=== PATIENT | female | born 1945 | race Caucasian/White ===

== ENCOUNTER → 2017-11-10 14:00 | Outpatient (CLI) | payer MEDICARE, MEDICAID, SELFPAY ==
[2017-11-10 14:21] VITALS: BP 158/77; PULSE 76; RESP 16; TEMP 36.9; O2SAT 95
== END ==
PROVIDERS: Family Provider Nurse Practitioner; PCP Nurse Practitioner; Visit Provider Internal Medicine Hematology & Oncology
DX: D50.0 Iron deficiency anemia secondary to blood loss (chronic) (principal); K90.9 Intestinal malabsorption, unspecified
CPT/HCPCS: 96365; J1756; A4216

== ENCOUNTER → 2017-12-08 13:59 | Outpatient (CLI) | payer MEDICARE, MEDICAID, SELFPAY ==
[2017-12-08 16:11] LABS: Basophil# 0.02 X10^3/uL; Basophil% 0.2 % (0-1); Eosinophil# 0.16 X10^3/uL; Eosinophils% 1.9 % (0-5); Hematocrit 39.9 % (37-47); Hemoglobin 12.4 g/dl (12.0-15.0); Lymphocyte % 26.8 % (19-41); Mean Corp Hgb Conc 31.1 g/gl (32-36); Mean Corpuscular Hgb 27.7 pg (27.0-32.0); Mean Corpuscular Volume 89.3 fL (81-99); Mean Platelet Vol. 10.9 fl (6.2-12.0); Monocyte# 0.84 X10^3/uL; Monocyte% 10.2 % (0-10); Neutrophil # 4.98 X10^3/uL (2.7-7.7); Neutrophil % 60.7 % (47-70); Platelet Count 272 K/mm3 (150-450); RBC Distribution Width CV 20.2 % (11.6-14.6); RBC Distribution Width SD 64.5 fl (35.1-43.9); Red Blood Count 4.47 M/mm3 (4.2-5.4); White Blood Count 8.2 K/mm3 (4.4-11.0)
[2017-12-08 16:13] LABS: ALB/GLOB Ratio 0.8 RATIO (0.9-2.4); AST(SGOT) 19 U/L (15-37); Alanine Aminotransfer ALT/SGPT 42 U/L (13-56); Alkaline Phosphatase 79 U/L (45-117); Anion Gap 7 (5-15); BUN 23 mg/dL (7-18); BUN/Creat Ratio 28.9 RATIO (10-20); Calcium,Total 8.6 mg/dL (8.5-10.1); Chloride 105 mmol/L (98-107); EST Glomerular Filtration Rate 75 mL/min (>60); Est Glom Filt Rate - Afr Amer 91 mL/min (>60); Free T3 3.4 pg/mL (2.18-3.98); Globulin 3.9 g/dL (2.2-4.2); Glucose 128 mg/dL (74-106); Iron 44 ug/dL (50-170); Potassium 4.1 mmol/L (3.5-5.1); Protein, Total 6.9 g/dL (6.4-8.2); Sodium Level 142 mmol/L (136-145); T4 Free Direct 1.23 ng/dL (0.76-1.46); Thyroid Stim Hormone (TSH) < 0.01 uIU/mL (0.358-3.74)
[2017-12-08 16:17] LABS: Differential Indicated SCAN CRITERIA MET; POSITIVE COUNT NO; POSITIVE DIFFERENTIAL NO; POSITIVE MORPHOLOGY YES
[2017-12-08 16:31] LABS: Anisocytosis 1+; Differential Comment SCANNED
[2017-12-09 10:29] LABS: Vitamin B12 448 pg/mL (211-911); Vitamin D,25 Hydroxy 35.8 ng/mL (19.95-100.01)
== END ==
PROVIDERS: Nurse Practitioner; Family Provider Nurse Practitioner; PCP Nurse Practitioner; Visit Provider Nurse Practitioner
DX: D50.9 Iron deficiency anemia, unspecified (principal); E55.9 Vitamin D deficiency, unspecified; E05.90 Thyrotoxicosis, unspecified without thyrotoxic crisis or storm
CPT/HCPCS: 80053; 82306; 82607; 82746; 83540; 84439; 84443; 84481; 85025

== ENCOUNTER → 2017-12-22 10:27 | Outpatient (CLI) | payer MEDICARE, MEDICAID, SELFPAY ==
--- NOTE | 2017-12-22 10:30 | US_ITS ---
STUDY: THYROID ULTRASOUND REASON FOR EXAM: Female, 72 years old. Difficulty swallowing. Dysphagia. TECHNIQUE: Ultrasound evaluation of the thyroid was performed with real-time and static cotter-scale imaging. Exam was limited by patient's poor neck mobility. COMPARISON: None. FINDINGS: RIGHT LOBE: The right lobe of the thyroid gland measures 3.6 x 1.7 x 1.2 cm. There is a heterogeneous echotexture. In the mid right lobe of the thyroid gland, there is a minimally hypoechoic solid nodule measuring 1.5 x 0.8 x 1.0 cm. LEFT LOBE: The left lobe of the thyroid gland measures 3.8 x 1.5 x 1.6 cm. There is a heterogeneous echotexture. In the lower pole of the left lobe, there is a hypoechoic solid nodule measuring 1.5 x 1.1 x 1.1 cm. ISTHMUS: The isthmus measures 7 mm . The regional lymph nodes are normal. US/Thyroid IMPRESSION: 1.5 cm solid nodules in the thyroid gland bilaterally. Would consider fine-needle aspiration for further evaluation. Diffusely heterogeneous thyroid gland. Electronically Signed: Loco Hillman MD at 3:48 EST , Service support ,
== END ==
PROVIDERS: Family Provider Nurse Practitioner; PCP Nurse Practitioner; Visit Provider Nurse Practitioner
DX: E05.90 Thyrotoxicosis, unspecified without thyrotoxic crisis or storm (principal); R94.6 Abnormal results of thyroid function studies
CPT/HCPCS: 76536

== ENCOUNTER 2018-02-13 14:30 | Outpatient (RCR) | payer MEDICARE, MEDICAID, SELFPAY ==
--- NOTE | 2018-01-18 13:47 | HP.PTEVAL_ITS ---
Patient's Visit Information MARY KAY HERNÁNDEZ is a 72 year old F referred to Physical Therapy by Grace DUNBAR.BPOMPE with a diagnosis of R hip pain, greater trochanter bursitis, and presence of R hip total arthro. Date of Evaluation: 01/18/18 Physical Therapist: Matheus West - Visit Plan Frequency: 2x /Week Duration: 4 Weeks Plan: Start with R hip and R LE strengthening as tolerated. Pt. has marked weakness in R hip musculature. Progress to HEP. - Subjective Subjective: Pt. is here today for her initial evaluation with diagnosis of R hip pain, greater trochanter bursitis, and presence of R hip total arthroplasty. Pt. is 4 years post R hip surgery. Pt. reports having good relief initial post surgery, but has been progressively getting worse over the last 1- 2 years. Pt. reports that her R leg does give out on her at times causing her to fall. Pt. does have a history of lumbar spine surgery and sees physician to manage her pain there. Pt. went to her 4 year follow up and physician suggested to work on strengthening of her R leg and follow up with physician in 4-6 weeks. Pt. has motorized chair, FWW and cane at home. Pt. reports that her chair is barely functional at this point in time, does not take out in community due to decreased function. Pt. does live along in detention independent living. Pt. is hopeful to increase her strength in order to reduce stress to R hip and decrease pain. - Pain R hip Pain Intensity (Out of 10): 10 Pain Intensity Range: 7, 10 - Objective POSTURE: Pt. has general flexed posture. Pt. has decreased lumbar lordosis. Pt. taylor wide IMTIAZ in stance. Pt. uses cane in stance, but is able to stand without balance aide for shorter time frames. PALPATION: Pt. has increased tenderness along R greater trochanter, R gluteal region and R anterior thight. NEUROLOGICAL: Pt. lacks sensation to light touch at lateral L calf, but normal sensation throught. Pt. has 2+ bilateral achilles and patellar DTR bilaterally. Pt. is able to rise on heels and toes, but uses balance aid to complete. ROM: R hip- flexion 108deg increase NW (groin pain), abd 40deg increase NW (groin), ext 10deg increase NW (groin), ER 30deg increase NW groin, IR 15deg increase NW (groin). L hip- flexion 120deg NE, abd 45deg NE, ext 15deg NE, ER 45deg NE, IR 32deg NE. MMT: RLE- ankle 5/5 throughout; knee- ext 5-/5, flexion 5-/5 increase NW; hip- flexion 3+/5 increase NW (groin), abd 3+/5 increase NW (groin pain), ext 4/5 increase NW. LLE- ankle 5/5 throughout; knee- ext 5-/5, flexion 5-/5; hip- flexion 4/5, abd 4/5, ext 4/5. GAIT: Pt. ambulates with cane in R hand. Pt. does not use properly, but reports this is the only way I can do it. Pt. has decreased step length bilaterally, increased postural sway and hip drop contralterally bilaterally. Stairs: Pt. negotiates 3 steps with 2 HR with step to pattern, pt was apprehensive to trial. - Goals Goal 1:: Pt. to be I with HEP. Goal Time Frame: 4-6 Weeks Goal 2:: Pt. to have increased RLE strength by 1/2 grade of all effected musculature to increase ability to complete all functional mobility. Goal Time Frame: 4-6 Weeks Goal 3:: Pt. to ambulate 300+ feet with LRD with 0-4/10 pain allowing for increased mobility in home and community. Goal Time Frame: 4-6 Weeks Goal 4:: Pt. to sleep for 4-6 hours at a time allowing for increased quality of life, with 0-2/10 pain in R hip. Goal Time Frame: 4-6 Weeks - Rehabilitation Potential Physical Therapy Diagnosis: Pt. has signs and symptoms consistent with R hip pain and marked R hip weakness. Pt. has increased pain with all R hip movements and with walking. Pt. would benefit from PT to increase RLE strength and stability and to increase stability in SLS to allow for increased stability with gait. Rehabilitation Potential: Fair - Anticipated Interventions Patient/Client Instruction: Educate patient on: Condition, Plan of Care, Risk Factors, Benefits of Fitness Program For the Purpose of:: To improve health and function, To foster healthy habits, To improve decision making, To facilitate caregiver knowledge, To improve self management, To prevent re-injury, To improve ability to perform tasks related to life management, To improve tolerance to ADL's Therapeutic Exercise to Include: Strength training, Power training, Endurance training, Balance training, Coordination, Body mechanics, Flexibilty training, Gait and locomotor training For the Purpose of:: To decrease pain, To increase ROM, To improve nutrient delivery to tissue, To increase oxygenation perfusion, To improve muscle performance and motor function, To improve ability to perform ADL's, To increase tolerance to activity/condition/position, To improve performance and independence with ADL's, To improve gait and locomotor functions, To improve health of tissue, To decrease soft tissue restriction, To increase flexibility/ ROM, To improve endurance, To improve balance, To improve safety with gait Cryotherapy (ice pack, ice massage): Yes Thermo therapy (hot pack): Yes For the Purpose of:: To decrease pain, To increase ROM, To improve nutrient delivery to tissue, To increase oxygenation perfusion, To improve muscle performance and motor function Thank you for the opportunity to evaluate your patient. For Medicare and Medicare HMO plans, please review the plan of care and approve it. It will need to be FAXED BACK to us at [phone] for Medicare purposes. Please let me know if there are questions or concerns regarding this plan of care. Physician Signature: Date:
--- NOTE | 2018-03-19 19:19 | HP.PTDCNRP_ITS ---
HP - Discharge Summary (1) - Patient Information MARY KAY HERNÁNDEZ was seen in my office for initial evaluation on 01/18/18. The following Plan of Care was established for this patient: Initial Frequency: 2x /Week Initial Duration: 4 Weeks - Anticipated Interventions Patient/Client Instruction: Educate patient on: Condition, Plan of Care, Risk Factors, Benefits of Fitness Program For the Purpose of:: To improve health and function, To foster healthy habits, To improve decision making, To facilitate caregiver knowledge, To improve self management, To prevent re-injury, To improve ability to perform tasks related to life management, To improve tolerance to ADL's Therapeutic Exercise to Include: Strength training, Power training, Endurance training, Balance training, Coordination, Body mechanics, Flexibilty training, Gait and locomotor training For the Purpose of:: To decrease pain, To increase ROM, To improve nutrient delivery to tissue, To increase oxygenation perfusion, To improve muscle performance and motor function, To improve ability to perform ADL's, To increase tolerance to activity/condition/position, To improve performance and independence with ADL's, To improve gait and locomotor functions, To improve health of tissue, To decrease soft tissue restriction, To increase flexibility/ ROM, To improve endurance, To improve balance, To improve safety with gait Cryotherapy (ice pack, ice massage): Yes Thermo therapy (hot pack): Yes For the Purpose of:: To decrease pain, To increase ROM, To improve nutrient delivery to tissue, To increase oxygenation perfusion, To improve muscle performance and motor function This patient was last seen in our office 02/13/18. Pertinent comments regarding their Physical therapy will appear below: Pt. was seen for her initial evaluation with hip pain. Pt. had one follow up visit, but then had to cancel the rest of her appointments due to change in insurance. Pt. will be DC from PT at this point in time. At this point I will be discontinuing this patient from physical therapy. I would be happy to see this patient again in the future if found appropriate by the physician. Thank you! Matheus West
== END 2018-02-13 19:00 | disposition home or self-care (01) ==
LOC: PT 14:30
PROVIDERS: Family Provider Nurse Practitioner; PCP Nurse Practitioner; Visit Provider Physician Assistant
DX: Z96.641 Presence of right artificial hip joint (principal); M25.551 Pain in right hip; M70.61 Trochanteric bursitis, right hip
CPT/HCPCS: 97110; 97162

== ENCOUNTER → 2018-04-17 16:06 | Outpatient (CLI) | payer MEDICARE, MEDICAID, SELFPAY ==
[2018-04-17 17:51] LABS: Free T3 6.1 pg/mL (2.18-3.98); Thyroid Stim Hormone (TSH) < 0.01 uIU/mL (0.358-3.74)
[2018-04-17 17:51] LABS: Amphetamine Urine VISTA NEGATIVE (<1000 ng/mL); Barbiturate Urine VISTA NEGATIVE (< 200 ng/mL); Benzodiazepine Urine VISTA POSITIVE (< 200 ng/mL); Cocaine Urine VISTA NEGATIVE (< 300 ng/mL); Ecstacy Urine VISTA NEGATIVE (< 500 ng/mL); Methadone Urine VISTA NEGATIVE (< 300 ng/mL); PCP Urine VISTA NEGATIVE (< 25 ng/mL); THC Urine VISTA NEGATIVE (< 50 ng/mL); Vista UDS pH Range 6
== END ==
PROVIDERS: Nurse Practitioner; Family Provider Nurse Practitioner; PCP Nurse Practitioner; Visit Provider Anesthesiology Pain Medicine
DX: F11.20 Opioid dependence, uncomplicated (principal); E11.9 Type 2 diabetes mellitus without complications; E05.90 Thyrotoxicosis, unspecified without thyrotoxic crisis or storm
CPT/HCPCS: 36415; 80307; 84439; 84443; 84481

== ENCOUNTER → 2018-09-06 15:01 | Outpatient (CLI) | payer MEDICARE, MEDICAID, SELFPAY ==
[2018-09-06 13:22] VITALS: BMI 31.8
--- NOTE | 2018-09-06 13:31 | ASPS_PTH ---
PATIENT: MARY KAY HERNÁNDEZ LOC: [facility] U#:[id number] AGE/SX: 80/F ROOM: RE09/06/[address]: Dr. Darwin Thomas MD : 1945 BED: DIS: SPEC #: [id number] RECD: 09/06/18 14:49 STATUS: ALEXANDRE DON #: [id number] HESHAM: 09/06/18 13:[address]: Darwin Thomas DEPT: CYTOLOGY RECD BY: Julisa Clayton ENTERED: 09/08/18 07:57 SP TYPE: ASPIRATION OTHR DR: Yesenia Leon, IN HOME SALES REPRESENTATIVE-C Tissues: A - Thyroid gland, NOS B - Thyroid gland, NOS Procedures: Special Stain Group II Cytology Other HEADER OPERATION: Ultrasound-guided fine needle aspiration bilateral thyroid PRE-OP DIAGNOSIS: Hyperthyroidism, multinodular goiter TISSUE SUBMITTED: A - Fine needle aspiration left thyroid 12 slides, B - Fine needle aspiration right thyroid 12 slides DIAGNOSIS CYTOLOGY A. Left thyroid nodule, ultrasound-guided FNA (smears): Consistent with benign follicular nodule. Adequate for evaluation. B. Right thyroid nodule, ultrasound-guided FNA (smears): Consistent with benign follicular nodule. Adequate for evaluation. LEONID:hilda 09/08/18 COMMENT Correlation with clinical, radiologic findings and appropriate follow up are necessary. CYTOLOGY STUDY Slides are reviewed. CYTOLOGY GROSS A - Received are 12 smears labeled with the patient's name and designated per the requisition as left thyroid. Submitted for staining. B - Received are 12 smears labeled with the patient's name and designated per the requisition as right thyroid. Submitted for staining. 09/06/18 TC:5 CPT: 03685 x2
== END ==
PROVIDERS: Family Provider Nurse Practitioner; PCP Nurse Practitioner; Referring Provider Surgery; Visit Provider Surgery
DX: E05.20 Thyrotoxicosis with toxic multinodular goiter without thyrotoxic crisis or storm (principal)
CPT/HCPCS: 88161; 88313

== ENCOUNTER → 2018-09-11 08:17 | Outpatient (CLI) | payer MEDICARE, MEDICAID, SELFPAY ==
[2018-09-06 13:22] VITALS: BMI 31.8
--- NOTE | 2018-09-11 08:21 | BI_ITS ---
MAMMOGRAPHY - BILATERAL SCREENING REASON FOR EXAM: Female, 73 years old. Routine annual screening examination. PERTINENT HISTORY: Non-contributory. Remote right excisional breast biopsy. TECHNIQUE: Digital bilateral breast clint (3D mammographic acquisition) in the CC and MLO projections. 2-D mediolateral oblique (MLO) and craniocaudad (CC) views of both breasts were obtained. CAD: Full Field Digital Mammography with Computer Added Detection was performed. COMPARISON: Comparison is made with prior study dated April 05, 2017 and June 18, 2015. FINDINGS: Breast Composition: There are scattered areas of fibroglandular density. There are no dominant masses or suspicious calcifications. Stable benign-appearing bilateral axillary lymph nodes. Stable 7 mm x 5 mm well-defined nodule in the upper lateral portion of the left breast. This was demonstrated to be a small lymph node. No other significant abnormalities are identified. There has been no significant change since the prior study. BI/SCREENING MAMM (CAD), BILAT IMPRESSION: Stable bilateral screening mammogram. Yearly follow-up mammogram recommended. (A) ASSESSMENT CATEGORY: BIRADS Category 2: Benign. A letter regarding these results will be sent to the patient by the facility within 30 days. Approximately 10% of breast cancers are not detected by mammography. A normal mammogram should not delay biopsy of a clinically suspicious abnormality. [id number] Electronically Signed: Nimesh Rogers MD at 10:39 EST Tel [phone], Service support ,
== END ==
PROVIDERS: Family Provider Nurse Practitioner; PCP Nurse Practitioner; Visit Provider Nurse Practitioner
DX: Z12.31 Encounter for screening mammogram for malignant neoplasm of breast (principal)
CPT/HCPCS: 77063; 77067

== ENCOUNTER → 2018-11-14 09:39 | Outpatient (CLI) | payer MEDICARE, MEDICAID, SELFPAY ==
[2018-09-06 13:22] VITALS: BMI 31.8
--- NOTE | 2018-11-14 09:59 | MRI_ITS ---
STUDY: MRI LUMBAR SPINE WITHOUT CONTRAST REASON FOR EXAM: Female, 73 years old. Bilateral leg and right hip pain. TECHNIQUE: Standardized fat and water weighted pulse sequences were obtained in the sagittal and axial planes. COMPARISON: None FINDINGS: T12-L1: Normal endplates. Normal disc height, hydration and morphology. Small, central, noncompressive disc protrusion. Normal bilateral facet joints. Normal central canal and bilateral lateral recesses. Normal bilateral intervertebral neural foramina. Normal lumbar lordosis. There is no substantial scoliosis. Normal conus medullaris that terminates at the T12-L1 level. L1-2: Normal endplates. Disc dehydration. There is a small, right paracentral, noncompressive disc protrusion. Normal bilateral facet joints. Normal central canal and bilateral lateral recesses. Normal bilateral intervertebral neural foramina. L2-3: Normal endplates. Disc dehydration. Normal central canal and bilateral lateral recesses. Mild facet hypertrophy. Small, noncompressive, inferior foraminal disc protrusions bilaterally. L3-4: Normal endplates. Disc dehydration. Moderate facet hypertrophy. Normal central canal and bilateral lateral recesses. There is mild bilateral foraminal encroachment, greater on the right, due to spurring and mild facet hypertrophy. L4-5: Normal endplates. Disc dehydration. There is 4 mm anterolisthesis. No demonstrated fracture. There is moderate facet hypertrophy. Normal central canal and bilateral lateral recesses. Normal bilateral intervertebral neural foramina. L5-S1: The patient is status post fusion. There is 4 mm anterolisthesis. Normal central canal. Foramina are patent. Normal visualized sacral ala. Normal visualized paraspinous soft tissue structures. MRI/Spine Lumbar (Routine) IMPRESSION: 1. Small, noncompressive disc protrusions at T12-L1, L1-2, and L2-3. 2. Mild listhesis at L4-5 and L5-S1. 3. Postoperative changes at L5-S1. 4. Degenerative changes are detailed above. Electronically Signed: Bruna Hernandez MD at 23:58 EST Tel , Service support ,
== END ==
PROVIDERS: Family Provider Nurse Practitioner; PCP Nurse Practitioner; Referring Provider Orthopaedic Surgery; Visit Provider Orthopaedic Surgery
DX: M16.11 Unilateral primary osteoarthritis, right hip (principal)
CPT/HCPCS: 72148

== ENCOUNTER → 2018-11-27 09:52 | Outpatient (CLI) | payer MEDICARE, MEDICAID, SELFPAY ==
[2018-11-14 10:20] VITALS: BMI 31.8
[2018-11-27 11:14] LABS: Amphetamine Urine VISTA NEGATIVE (<1000 ng/mL); Barbiturate Urine VISTA NEGATIVE (< 200 ng/mL); Benzodiazepine Urine VISTA POSITIVE (< 200 ng/mL); Cocaine Urine VISTA NEGATIVE (< 300 ng/mL); Ecstacy Urine VISTA NEGATIVE (< 500 ng/mL); Methadone Urine VISTA NEGATIVE (< 300 ng/mL); PCP Urine VISTA NEGATIVE (< 25 ng/mL); THC Urine VISTA NEGATIVE (< 50 ng/mL); Vista UDS pH Range 6
[2018-11-27 12:12] LABS: AST(SGOT) 11 U/L (15-37); Alanine Aminotransfer ALT/SGPT 30 U/L (13-56); Free T3 2.7 pg/mL (2.18-3.98); T4 Free Direct 1.45 ng/dL (0.76-1.46); Thyroid Stim Hormone (TSH) < 0.01 uIU/mL (0.358-3.74)
== END ==
PROVIDERS: Nurse Practitioner; Family Provider Nurse Practitioner; PCP Nurse Practitioner; Referring Provider Anesthesiology Pain Medicine; Visit Provider Anesthesiology Pain Medicine
DX: F11.20 Opioid dependence, uncomplicated (principal); E05.90 Thyrotoxicosis, unspecified without thyrotoxic crisis or storm; E11.9 Type 2 diabetes mellitus without complications
CPT/HCPCS: 36415; 80307; 84439; 84443; 84450; 84460; 84481

== ENCOUNTER → 2019-01-26 13:56 | Outpatient (CLI) | payer MEDICARE, MEDICAID, SELFPAY ==
[2018-11-14 10:20] VITALS: BMI 31.8
[2019-01-26 14:23] LABS: Potassium 4.7 mmol/L (3.5-5.1)
== END ==
PROVIDERS: Family Provider Nurse Practitioner; PCP Nurse Practitioner; Referring Provider Nurse Practitioner; Visit Provider Nurse Practitioner
DX: E87.5 Hyperkalemia (principal)
CPT/HCPCS: 36415; 84132

== ENCOUNTER 2019-04-03 06:09 | Emergency (ER) | payer MEDICARE, MEDICAID, SELFPAY ==
[2019-03-22 09:26] VITALS: BMI 34.9
[2019-04-03 06:11] VITALS: BP 155/72; PULSE 89; RESP 16; TEMP 37.2; O2SAT 94; BMI 33.0
--- NOTE | 2019-04-03 06:23 | RAD_ITS ---
STUDY: X-RAY - LEFT RADIUS AND ULNA REASON FOR EXAM: Pain, injury. TECHNIQUE: 2 view(s) of the forearm. COMPARISON: None. FINDINGS: There is no demonstrated soft tissue swelling. There is vascular calcification. There is triscaphe arthrosis. Normal visualized radius. Normal visualized ulna. RAD/Forearm 2 Views IMPRESSION: Triscaphe arthrosis. No demonstrated fracture. Electronically Signed: Desmond Pacheco MD at 7:25 EDT Tel , Service support ,
[2019-04-03] MEDS: oxyCODONE 5 MG Tablet PO (07:06)
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
[2019-04-03] MEDS: predniSONE 20 MG Tablet 60 MG PO (07:51)
[2019-04-03 07:52] VITALS: BP 162/69; PULSE 74; RESP 16; O2SAT 98
== END 2019-04-03 07:56 | disposition home or self-care (01) ==
PROVIDERS: Emergency Provider Emergency Medicine; Family Provider Nurse Practitioner; PCP Nurse Practitioner
DX: M10.9 Gout, unspecified (principal); M19.90 Unspecified osteoarthritis, unspecified site; I11.0 Hypertensive heart disease with heart failure; I50.9 Heart failure, unspecified; J44.9 Chronic obstructive pulmonary disease, unspecified; K21.9 Gastro-esophageal reflux disease without esophagitis; E11.9 Type 2 diabetes mellitus without complications; E78.00 Pure hypercholesterolemia, unspecified; I73.9 Peripheral vascular disease, unspecified; I27.20 Pulmonary hypertension, unspecified; I35.0 Nonrheumatic aortic (valve) stenosis; F41.9 Anxiety disorder, unspecified; Z86.718 Personal history of other venous thrombosis and embolism; Z87.19 Personal history of other diseases of the digestive system; Z95.2 Presence of prosthetic heart valve; Z79.01 Long term (current) use of anticoagulants; Z79.4 Long term (current) use of insulin; Z79.899 Other long term (current) drug therapy; Z87.891 Personal history of nicotine dependence
CPT/HCPCS: 73090; 99283

== ENCOUNTER 2019-04-18 06:08 | Inpatient (IN) | payer MEDICARE, MEDICAID, SELFPAY ==
[2019-04-18] VITALS (22 sets, daily range): BP systolic 96–160; BP diastolic 52–79; PULSE 69–96; RESP 16–24; TEMP 36.2–38.1; O2SAT 90–100; BMI 33.3; BMI 33.0; BMI 33.4
--- NOTE | 2019-04-18 06:19 | EKG12_ITS ---
Test Reason : CP Blood Pressure : / mmHG Vent. Rate : 094 BPM Atrial Rate : 094 BPM P-R Int : 126 ms QRS Dur : 124 ms QT Int : 392 ms P-R-T Axes : 033 067 016 degrees QTc Int : 490 ms Sinus rhythm with marked sinus arrhythmia Right bundle branch block Abnormal ECG Confirmed by GYPSY MARTINEZ, SUNDAY ([id number]), book or script editor TIERRA BLANCO ([id number]) on 04/23/2019 1:24:10 PM Referred By: BREANNE Confirmed By:SUNDAY BETANCUR MD
--- NOTE | 2019-04-18 06:19 | RAD_ITS ---
STUDY: X-RAY CHEST REASON FOR EXAM: Female, 74 years old. Chest congestion. TECHNIQUE: PA and lateral views of the chest. COMPARISON: June 07, 2017. FINDINGS: Cardiac monitoring leads are present. The lungs are hyperexpanded. Curvilinear opacity is visible within the mid right lung, new since previous study and possibly representing subsegmental atelectasis. There is mild prominence of bronchovascular markings. There is a small right-sided pleural effusion. There is mild cardiac enlargement. Normal mediastinum and duarte. There is prominence of the pulmonary hilar arteries without peripheral pulmonary vascular congestion, shore. There is atherosclerotic calcification of the aortic arch with tortuosity. There is demineralization of the osseous structures. Normal visualized ribs, clavicles, and shoulders. There is no demonstrated abnormality of the visualized soft tissue structures of the upper abdomen. RAD/Chest PA and Lateral IMPRESSION: 1. Right-sided subsegmental atelectasis. 2. Right-sided pleural effusion. Electronically Signed: Apple Rutherford MD at 7:41 EDT , Service support ,
--- NOTE | 2019-04-18 06:20 | ED.DCSUM_ITS ---
History of Present Illness Chief Complaint: Chest Pain Informant: Patient Narrative: COPD and aortic valve replacement. She is on Xarelto. She denies history of coronary artery disease. She stated since yesterday she has had a cough with some sputum. When she coughs she has some achiness in her chest and back. She is unsure if she has pneumonia. Positive history of COPD. No longer smokes cigarettes. She is on oxygen daily. She has not had a change since yesterday. She has been using breathing treatments x3 throughout the night last night with mild relief of symptoms. She stated she felt warm this morning and wanted to come in for further evaluations. Denies sick contacts. No other home treatment. - Past Medical History (1) Claudication Status: Acute (2) Chronic diastolic heart failure Status: Chronic (3) Essential (primary) hypertension Status: Chronic (4) H/O aortic valve replacement Status: Chronic Comment: TAVR: 23 mm Guillaume-Sapiens S3 valve 12/03/2016 (5) Hyperlipidemia Status: Chronic (6) Non-rheumatic aortic stenosis Status: Chronic (7) Secondary pulmonary arterial hypertension Status: Chronic Past Medical History - Allergies and Home Meds Allergies/Adverse Reactions: Allergies ciprofloxacin [From Cipro] Allergy (Verified 04/18/19 06:15) Rash ciprofloxacin HCl [From Cipro] Allergy (Verified 04/18/19 06:15) Rash gabapentin [From Neurontin] Allergy (Verified 04/18/19 06:15) Rash Primary Care Physician: Yesenia Leon NP-C [Primary Care Provider] - Prior records reviewed: Yes Surgical History: appendectomy - Right hip replacement, back surgery, laminectomy, carpal tunnel surgery, right leg hematoma extraction, hysterectomy, rotator cuff repair, total hip arthroplasty, - - carpal tunnel, RLE DVT Smoking Status: Former smoker Alcohol: None Drugs: None - Family History Maternal Family History: Family History (Last Reviewed 03/22/19 @ 09:55 by Moose Killian MD) Mother Arthritis Diabetes Hormone deficiency CVA (cerebral vascular accident) Colon cancer Cancer Sister Bleeding disorder CVA (cerebral vascular accident) Colon cancer Daughter Cancer Seizures Father Diabetes Leukemia Grandmother Diabetes Unknown Asthma Heart disease Hypertension High cholesterol Thyroid disorder Osteoporosis Cancer Tuberculosis Family History: Reports: No pertinent history Review of Systems General: Reports: Fever, Subjective. Denies: Chills, Sweats Eyes: Denies: Visual changes - bilaterally, Diplopia ENT: Denies: Rhinorrhea, Sore throat Cardiovascular: Reports: Chest pain. Denies: Palpitations Respiratory: Reports: Dyspnea, Cough, Sputum, Dyspnea on exertion Gastrointestinal: Denies: Abdominal pain, Nausea, Vomiting, Diarrhea, Melena, Hematochezia Genitourinary: Denies: Dysuria, Hematuria, Frequency Musculoskeletal: Denies: Back pain, Extremity Pain Skin: Denies: Rash, Wounds Neurological: Reports: Weakness. Denies: Headache, Numbness Physical Exam Vital Signs/Narrative: Vital Signs Temp Pulse Resp BP Pulse Ox 04/18/19 06:09 100.5 F H 96 16 160/71 H 98 General: Well nourished, Well developed, No Acute Distress Head: Normocephalic, Atraumatic Eyes: Perrl, EOMI ENT: Moist mucous membranes, No rhinorrhea Neck: Supple, Nontender Cardiovascular: Regular rate, Regular rhythm, No murmurs Respiratory: No distress, Chest nontender, Wheezing - Expiratory throughout all lung brush mild. Negative for: CTA bilaterally Abdomen: Soft, Nontender, Nondistended, Normal bowel sounds Back: Nontender, Normal Inspection Extremities: Nontender, No edema Skin: Normal color, No rash Neurological: Alert, Oriented x3, Cranial nerves II-XII grossly intact, Normal Strength, Normal Sensation Psychological: Normal affect, Normal Mood Diagnostic/Tx/Re-eval - Medical Decision Making EKG shows sinus rhythm at 94 with sinus arrhythmia. This is not unchanged from prior. However the patient does appear to have a new right bundle branch block. Patient had a low-grade temperature of 100.5. Tylenol given. Lab work and [facility] x-ray obtained. Chest x-ray shows no acute pneumonias. Lab work shows an acute on chronic anemia. The patient stated she has a history of chronic anemia and gets iron transfusions. She has not had one however in the last 6 months. She will be transfused 2 units of blood for hemoglobin 7.4 after talking to the hospitalist. Patient has chronic kidney disease with no significant change in her troponin. Patient felt better after her breathing treatment. Given Solu- Medrol and ceftriaxone azithromycin for suspected COPD exacerbation. Patient will be admitted. ED Disposition - Plan for ED Patient: Disposition: Home or Assisted Living Diagnosis: COPD exacerbation, Acute on chronic anemia Referrals: Yesenia Leon CUPOLA MECHANIC-C [Primary Care Provider] -
[2019-04-18] MEDS: Acetaminophen 325 MG Tablet 650 MG PO (06:28)
[2019-04-18] MEDS: Ipratropium/Albuterol Sulfate 3 ML AMPUL.NEB INHALATION ×5 (06:31→23:00)
[2019-04-18 06:47] LABS: Absolute Lymphocyte Count 1.42 X10^3/ul (0.83-4.51); Absolute Neutrophil Count 10.6 X10^3/uL (2.0-7.7); Basophil# 0.02 X10^3/uL; Basophil% 0.1 % (0-1); Eosinophils% 0.7 % (0-5); Hematocrit 25.7 % (37-47); Hemoglobin 7.4 g/dl (12.0-15.0); Lymphocyte # 1.42 X10^3/ul (4.0); Lymphocyte % 10.6 % (19-41); Mean Corp Hgb Conc 28.8 g/gl (32-36); Mean Corpuscular Hgb 19.8 pg (27.0-32.0); Mean Corpuscular Volume 68.7 fL (81-99); Monocyte# 1.27 X10^3/uL; Monocyte% 9.5 % (0-10); Neutrophil # 10.59 X10^3/uL (2.7-7.7); Neutrophil % 78.9 % (47-70); Platelet Count 262 K/mm3 (150-450); RBC Distribution Width CV 19.7 % (11.6-14.6); RBC Distribution Width SD 48.3 fl (35.1-43.9); Red Blood Count 3.74 M/mm3 (4.2-5.4); White Blood Count 13.4 K/mm3 (4.4-11.0)
[2019-04-18 06:49] LABS: Differential Indicated SCAN CRITERIA MET; POSITIVE COUNT NO; POSITIVE DIFFERENTIAL NO; POSITIVE MORPHOLOGY YES
[2019-04-18 06:58] LABS: Anion Gap 7 (5-15); BUN 24 mg/dL (7-18); BUN/Creat Ratio 18.2 RATIO (10-20); Calcium,Total 8.8 mg/dL (8.5-10.1); Chloride 107 mmol/L (98-107); Creatinine, Serum 1.32 mg/dL (0.55-1.02); EST Glomerular Filtration Rate 42 mL/min (>60); Est Glom Filt Rate - Afr Amer 51 mL/min (>60); Estimated Creatinine Clearance 27.26 ml/min; Glucose 157 mg/dL (74-106); Potassium 4.3 mmol/L (3.5-5.1); Sodium Level 141 mmol/L (136-145)
[2019-04-18 07:07] LABS: Anisocytosis 1+; Differential Comment SCAN; Hypochromasia 1+; Microcytosis 1+; Platelet Estimate ADEQUATE (ADEQ); Platelet Morphology LARGE; Polychromasia 1+
[2019-04-18] MEDS: Ceftriaxone 1 GM/50 ML BAG IV (07:54)
[2019-04-18] MEDS: MethylPREDNISolone 125 MG/2 ML Vial IV (07:54)
--- NOTE | 2019-04-18 08:23 | EKG12_ITS ---
Test Reason : RHYTHM CHANGE Blood Pressure : / mmHG Vent. Rate : 076 BPM Atrial Rate : 076 BPM P-R Int : 136 ms QRS Dur : 140 ms QT Int : 450 ms P-R-T Axes : 057 064 028 degrees QTc Int : 506 ms Normal sinus rhythm Right bundle branch block Abnormal ECG Confirmed by GYPSY MARTINEZ, SUNDAY ([id number]), restaurant expeditor TIERRA BLANCO ([id number]) on 04/23/2019 1:44:34 PM Referred By: CECIL Confirmed By:SUNDAY BETANCUR MD
--- NOTE | 2019-04-18 08:34 | HP.PCM_ITS ---
Problem List (1) COPD exacerbation Status: Acute (2) Acute on chronic anemia Status: Acute (3) Claudication Status: Chronic (4) Chronic diastolic heart failure Status: Chronic (5) Non-rheumatic aortic stenosis Status: Chronic (6) Hyperlipidemia Status: Chronic (7) Essential (primary) hypertension Status: Chronic (8) Secondary pulmonary arterial hypertension Status: Chronic (9) H/O aortic valve replacement Status: Chronic Comment: TAVR: 23 mm Guillaume-Sapiens S3 valve 12/03/2016 History of Present Illness Date of Admission: 04/18/19 Chief Complaint: Progressive worsening of shortness of breath since yesterday The patient is a 74 year old F with multiple comorbidities as listed above in cluding chronic microcytic anemia, MTHFR inhibitor/mutation, coronary artery disease status post aortic valve replacement and COPD came to ED with progressive worsening of shortness of breath since yesterday. Patient has mild shortness of breath on exertion but it got worse. Patient also has productive cough with clear sputum. Patient has chronic URI symptoms including nasal congestion and postnasal drip. Patient also complained of fever 101 yesterday. Patient also complained of chest tightness mainly in interscapular area and in the front mainly during cough which does not change with position. Seems pleuritic patient feels like that. Patient has seen Dr. raya about 2 weeks ago. Patient H&H was found 7.4/25.7, platelet count 262 with mild leukocytosis. Patient follows Dr. Gutierrez and gets PRBC last time about 2 years ago and iron infusion last time about a year ago. Patient is also on Xarelto for paroxysmal A. 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 Patient denies obvious external bleeding or major bruise including hematemesis/hematochezia/melena or hematuria/hemoptysis. Chest x-ray reviewed and shows chronic COPD changes right-sided subsegmental atelectasis with small effusion. EKG normal sinus rhythm with sinus arrhythmia, RBBB, QRS interval 124 ms. [] Past Medical History Past Medical History (Chronic Problems): Chronic Problems (Last Reviewed 03/22/19 @ 09:55 by Moose Raya MD) Claudication (Chronic) Chronic diastolic heart failure (Chronic) Non-rheumatic aortic stenosis (Chronic) Hyperlipidemia (Chronic) Essential (primary) hypertension (Chronic) Secondary pulmonary arterial hypertension (Chronic) H/O aortic valve replacement (Chronic 12/03/16) TAVR: 23 mm Guillaume-Sapiens S3 valve 12/03/2016 Medical History: Medical History (Last Reviewed 03/22/19 @ 09:55 by Moose Raya MD) Chronic diastolic heart failure (Chronic) I50.32 Non-rheumatic aortic stenosis (Chronic) I35.0 Hyperlipidemia (Chronic) E78.5 Essential (primary) hypertension (Chronic) I10 Secondary pulmonary arterial hypertension (Chronic) I27.21 Type 2 diabetes mellitus E11.9 Anemia D64.9 Anxiety F41.9 Arthritis M19.90 Asthma J45.909 Back problem M53.9 Breast lump N63.0 COPD (chronic obstructive pulmonary disease) J44.9 Carotid artery stenosis I65.29 Carpal tunnel syndrome G56.00 Cataracts, bilateral H26.9 Depression F32.9 Fibromyalgia M79.7 Fibromyalgia M79.7 GERD (gastroesophageal reflux disease) K21.9 H/O transfusion of whole blood Z92.89 H/O: hysterectomy Z98.890, Z90.710 Headache R51 Hormone deficiency E34.8 Hypothyroidism E03.9 IBS (irritable bowel syndrome) K58.9 Kidney disease N28.9 MTHFR mutation E72.12 Neuropathy G62.9 Obesity E66.9 Osteoarthritis M19.90 Osteoporosis M81.0 Pneumonia J18.9 RLS (restless legs syndrome) G25.81 Skin cancer C44.90 Thyroid disease E07.9 Tuberculosis A15.9 UTI (urinary tract infection) N39.0 blood clots Bone fracture T14.8XXA Seasonal allergies J30.2 Allergies ciprofloxacin [From Cipro] Allergy (Verified 04/18/19 06:15) Rash ciprofloxacin HCl [From Cipro] Allergy (Verified 04/18/19 06:15) Rash gabapentin [From Neurontin] Allergy (Verified 04/18/19 06:15) Rash Home Medications: Ambulatory Orders Medication Instructions Recorded Albuterol IH (ProAir) [Proair Hfa] 2 puff INHALATION Q4H PRN PRN 01/03/14 Fluticasone 0.05% [Flonase Nasal 2 spray NASAL DAILY 01/03/14 Sandy] Ropinirole HCl [Requip Xl] 2 mg PO QHS 01/03/14 Linagliptin [Tradjenta] 5 mg PO DAILY 02/02/16 Fesoterodine Fumarate [Toviaz] 8 mg PO QHS 10/01/16 Nitroglycerin (INPATIENT USE) 0.4 mg SUBLINGUAL Q5M PRN 10/01/16 [Nitrostat] Roflumilast [Daliresp] 500 mcg PO DAILY 10/01/16 Tiotropium [place] [Spiriva 18 MCG] 1 puff INHALATION PRN PRN 10/01/16 Oxygen, Home [Home Oxygen] 3 lpm NASAL CONT PRN #0 10/04/16 B Complex with Vitamin C 1 ea PO DAILY 03/04/17 [B-Complex Plus Vitamin C] Insulin Detemir [Levemir FlexPen] 50 units SC QHS 03/04/17 Tizanidine HCl 4 mg PO BID 03/04/17 Insulin Aspart [Novolog Flexpen] 0 units SC TIDAC 03/26/17 Iron Polysaccharide Complex 150 mg PO DAILY 05/10/17 [Ferrex 150] Paroxetine [Paxil] 40 mg PO DAILY 05/10/17 cholecalciferol (vitamin D3) 2,000 2,000 unit PO ONCE 09/29/17 unit capsule esomeprazole magnesium 40 mg 40 mg PO QDAY cap 09/29/17 capsule,delayed release fluticasone 100 mcg-salmeterol 50 2 puff INHALATION BID ea 09/29/17 mcg/dose blistr powdr for inhalation potassium chloride ER 10 mEq 10 meq PO BID 02/23/18 tablet,extended release furosemide 40 mg tablet 40 mg PO BID #60 tab 05/16/18 methimazole 5 mg tablet 5 mg PO DAILY #30 tab 08/03/18 oxycodone-acetaminophen 5 mg-325 1 tab PO TID tab 08/03/18 mg tablet metoprolol tartrate 25 mg tablet 25 mg PO BID #60 tab 08/28/18 denosumab 60 mg/mL subcutaneous 60 mg SC [id number] 11/14/18 syringe rivaroxaban 15 mg tablet 15 mg PO DAILY #30 tab 02/09/19 alprazolam 0.5 mg tablet 0.5 mg PO DAILY tab 03/22/19 atorvastatin 20 mg tablet 20 mg PO QHS tab 03/22/19 suvorexant 10 mg tablet 20 mg PO QHS tab 03/22/19 diltiazem ER 240 mg capsule,24 240 mg PO DAILY #60 cap 04/03/19 hr,extended release Surgical History: Surgical History (Last Reviewed 03/22/19 @ 09:55 by Moose Raya MD) H/O aortic valve replacement (Chronic) Onset Date: 12/03/16 Z95.2 TAVR: 23 mm Guillaume-Sapiens S3 valve 12/03/2016 H/O laminectomy Z98.890 History of left heart catheterization Onset Date: 09/03/16 Z98.890 History of tympanoplasty Z98.890 Hx of melanoma excision Z98.890, Z85.820 1997 Hx of removal of cyst Z98.890 Ganglion cyst right wrist Hx of rotator cuff surgery Z98.890 JAIME S/P hip replacement Z96.649 S/p bilateral carpal tunnel release Z98.890 Surgical History: appendectomy - Right hip replacement, back surgery, laminectomy, carpal tunnel surgery, right leg hematoma extraction, hysterectomy, rotator cuff repair, total hip arthroplasty, - - carpal tunnel, RLE DVT Psychiatric History: Anxiety, Depression 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 Smoking Status: Former smoker Alcohol: None Drugs: None - *Family History Maternal Family History: Family History (Last Reviewed 03/22/19 @ 09:55 by Moose Raya MD) Mother Arthritis Diabetes Hormone deficiency CVA (cerebral vascular accident) Colon cancer Cancer Sister Bleeding disorder CVA (cerebral vascular accident) Colon cancer Daughter Cancer Seizures Father Diabetes Leukemia Grandmother Diabetes Unknown Asthma Heart disease Hypertension High cholesterol Thyroid disorder Osteoporosis Cancer Tuberculosis History Items: No pertinent history Review of Systems Constitutional: Reports: Chills, Fever HEENT: Denies: Head Aches, Sinus Congestion, Sinus Drainage Cardiovascular: Reports: Chest Tightness. Denies: Chest Pain, Palpitations Respiratory: Reports: Cough, Pleuritic Pain, Shortness of Breath, Shortness of breath at rest, Shortness of breath upon exertion. Denies: Sputum production Gastrointestinal: Denies: Abdominal Pain, Nausea, Vomiting Genitourinary: Denies: Dysuria, Frequency, Hesitancy Musculoskeletal: Reports: Joint Pain. Denies: Joint Tenderness Skin: Denies: Rash, Wounds Neurological: Denies: Numbness, Tingling, Focal weakness Psychiatric: Reports: Anxiety, Depression. Denies: Homicidal Ideations, Suicidal Ideations Hematologic/ Lymphatic: Denies: Easy Bruising, Easy Bleeding VTE Information - Inpt Only VTE Present on Admission: No VTE Mechan Device Prophylaxis: None VTE Pharm Prophylaxis ordered?: No Reason prophylaxis not ordered:: Medical Contraindication - Severe anemia hemoglobin 7.4. Patient Problems: Active and Suspected Problems (Last Reviewed 03/22/19 @ 09:55 by Moose Raya MD) COPD exacerbation (Acute) Acute on chronic anemia (Acute) - Physical Exam General: Alert, Oriented x3, Cooperative HEENT: Atraumatic, PERRLA, EOMI, Normocephalic Oral: Dry Mucosa Neck: Supple, No JVD, Negative Carotid Bruits Lungs: Diminished - Air entry is diminished in bilateral lung bases., Rhonchi, Short of Breath Cardiovascular: Normal S1, Normal S2, Irregular Rate, Murmur - Artificial aortic valve click present. Systolic murmur present over aortic region. Abdomen: Bowel Sounds Present, Soft, Non Tender, Non-Distended Extremities: Capillary Refill Less than 3 Seconds, Edema - Slight edema. Skin: No rashes, No breakdown Musculoskeletal: No Tenderness to Palpation of Joints or Extremities, Arthritic Changes Neurological: Cranial nerves II-XII grossly intact Psych/Mental Status: Normal Affect, Appropriate Vital Signs Temp Pulse Resp BP Pulse Ox 98.5 F 95 24 H 112/78 100 04/18/19 07:52 04/18/19 07:07 04/18/19 07:07 04/18/19 07:07 04/18/19 07:07 Oxygen Flow Rate (L/min) 3 Oxygen Delivery Method Nasal Cannula Weight: 169 lb 8.568 oz Body Mass Index (BMI) 33.0 Finger Stick Blood Glucose 112 Laboratory Tests Past 24 Hrs 04/18/19 04/18/19 04/18/19 06:30 06:30 06:30 WBC 13.4 H RBC 3.74 L Hgb 7.4 L Hct 25.7 L MCV 68.7 L MCH 19.8 L MCHC 28.8 L RDW 19.7 H RDW Differential 48.3 H Plt Count 262 Immature Gran % (Auto) 0.200 Neut % (Auto) 78.9 H Lymph % (Auto) 10.6 L Benton % (Auto) 9.5 Eos % (Auto) 0.7 Baso % (Auto) 0.1 Absolute Neuts (auto) 10.6 H Absolute Lymphs (auto) 1.42 Total Counted Not Reportable Differential Comment SCAN Platelet Estimate ADEQUATE Plt Morphology Comment LARGE Polychromasia 1+ Hypochromasia 1+ Anisocytosis 1+ Microcytosis 1+ Sodium 141 Potassium 4.3 Chloride 107 Carbon Dioxide 27.0 Anion Gap 7 BUN 24 H Creatinine 1.32 H Estim Creat Clear Calc 27.26 Est GFR (MDRD) Af Amer 51 L Est GFR (MDRD) Non-Af 42 L BUN/Creatinine Ratio 18.2 Glucose 157 H Calcium 8.8 Troponin I < 0.015 B-Natriuretic Peptide 374.0 H Blood Type Antibody Screen Crossmatch 04/18/19 08:16 WBC RBC Hgb Hct MCV MCH MCHC RDW RDW Differential Plt Count Immature Gran % (Auto) Neut % (Auto) Lymph % (Auto) Benton % (Auto) Eos % (Auto) Baso % (Auto) Absolute Neuts (auto) Absolute Lymphs (auto) Total Counted Differential Comment Platelet Estimate Plt Morphology Comment Polychromasia Hypochromasia Anisocytosis Microcytosis Sodium Potassium Chloride Carbon Dioxide Anion Gap BUN Creatinine Estim Creat Clear Calc Est GFR (MDRD) Af Amer Est GFR (MDRD) Non-Af BUN/Creatinine Ratio Glucose Calcium Troponin I B-Natriuretic Peptide Blood Type Pending Antibody Screen Pending Crossmatch See Detail Assessment/Plan All Active Problems (Last Reviewed 03/22/19 @ 09:55 by Moose Raya MD) COPD exacerbation (Acute) Acute on chronic anemia (Acute) Chronic hypoxemic respiratory failure (Resolved) Colitis (Resolved) GI (gastrointestinal bleed) (Resolved) History of DVT (deep vein thrombosis) (Resolved) Hypomagnesemia (Resolved) Hypothyroidism (Resolved) Iron deficiency anemia (Resolved) Severe aortic stenosis (Resolved) The patient is a 74 year old F with multiple comorbidities as listed above including chronic microcytic anemia, MTHFR inhibitor/mutation, coronary artery disease status post aortic valve replacement and COPD came to ED with progressive worsening of shortness of breath since yesterday. Patient has mild shortness of breath on exertion but it got worse. Patient also has productive cough with clear sputum. Patient has chronic URI symptoms including nasal congestion and postnasal drip. Patient also complained of fever 101 yesterday. Patient also complained of chest tightness mainly in interscapular area and in the front mainly during cough which does not change with position. Seems pleuritic patient feels like that. Patient has seen Dr. raya about 2 weeks ago. Patient H&H was found 7.4/25.7, platelet count 262 with mild leukocytosis. Patient follows Dr. Gutierrez and gets PRBC last time about 2 years ago and iron infusion last time about a year ago. Patient is also on Xarelto for paroxysmal A. 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 Patient denies obvious external bleeding or major bruise including hematemesis/hematochezia/melena or hematuria/hemoptysis. Chest x-ray reviewed and shows chronic COPD changes right-sided subsegmental atelectasis with small effusion. EKG normal sinus rhythm with sinus arrhythmia, RBBB, QRS interval 124 ms. 1. COPD exacerbation with chronic hypoxic and hypercarbic respiratory failure: Patient is being admitted in PCU. Last blood gas was 7.34/46/56 but no mention about FiO2. Patient is on 3 L of home oxygen with CPAP at night and as needed during daytime. ABG and BiPAP as needed for shortness of breath gets worse. Currently patient shortness of breath has improved while she was in the ER. On bronchodilator DuoNeb, albuterol as needed, Solu-Medrol, incentive spirometry and chest physiotherapy. Sputum culture ordered. Respiratory panel ordered. 2. Acute on chronic microcytic anemia possible aggravated by Xarelto with chronic MTHFR inhibitor/mutation: 2 units of PRBC transfusion ordered by ER physician. Stool for occult blood. We will transfuse only 1 unit today and postponed for tomorrow. Hold Xarelto. Patient was advised to change to Eliquis as Eliquis probably has lower GI bleed complication as compared to Xarelto as found in research studies. 3. Pleuritic chest pain: Serial troponin enzymes. Patient has history of coronary artery disease and bioprosthetic AVR and paroxysmal A. fib. Will monitor. 4. Cardiac conditions: Chronic heart failure with preserved EF, coronary artery disease, bioprosthetic AVR proximal A. fib with secondary pulmonary hypertension: Patient last echo was in April 2017 reported as EF 60% with mild concentric LVH, normal LV systolic function, no regional wall motion majority. Normal RV size and systolic function. LA moderately enlarged, normal RA. Mild to moderate MR RVSP 57 mmHg with mild TR. Stable bioprosthetic aortic valve apparatus with mild to moderate bioprosthetic AV stenosis. No pericardial effusion. BNP 374. Patient does not seem to be in acute heart failure. 5. Comorbidities include essential hypertension, dyslipidemia, Chronic insomn ia. 146/69: Patient blood pressure is stable, respiratory rate 20. Home medications reconciliation done. DVT prophylaxis: On bilateral SCDs. Pharmacological prophylaxis is contraindicated. Laboratory Results 04/18/19 06:30: WBC 13.4 H, RBC 3.74 L, Hgb 7.4 L, Hct 25.7 L, MCV 68.7 L, MCH 19.8 L, MCHC 28.8 L, RDW 19.7 H, RDW Differential 48.3 H, Plt Count 262, Immatur e Gran % (Auto) 0.200, Neut % (Auto) 78.9 H, Lymph % (Auto) 10.6 L, Benton % (Auto) 9.5, Eos % (Auto) 0.7, Baso % (Auto) 0.1, Absolute Neuts (auto) 10.6 H, Absolute Lymphs (auto) 1.42, Total Counted Not Reportable, Differential Comment SCAN, Platelet Estimate ADEQUATE, Plt Morphology Comment LARGE, Polychromasia 1+, Hypochromasia 1+, Anisocytosis 1+, Microcytosis 1+ 04/18/19 06:30: Sodium 141, Potassium 4.3, Chloride 107, Carbon Dioxide 27.0, Anion Gap 7, BUN 24 H, Creatinine 1.32 H, Estim Creat Clear Calc 27.26, Est GFR (MDRD) Af Amer 51 L, Est GFR (MDRD) Non-Af 42 L, BUN/Creatinine Ratio 18.2, Glucose 157 H, Calcium 8.8, Troponin I < 0.015 04/18/19 06:30: B-Natriuretic Peptide 374.0 H 04/18/19 06:30: Total Bilirubin 0.30, Direct Bilirubin 0.09, AST 14 L, ALT 12 L, Alkaline Phosphatase 58, Total Protein 6.6, Albumin 2.9 L, Globulin 3.7 04/18/19 08:16: Blood Type Pending, Antibody Screen Pending, Crossmatch See Detail [] Clinical Impression(s) from Imaging Studies Chest X-Ray 04/18/19 06:19 IMPRESSION: 1. Right-sided subsegmental atelectasis. 2. Right-sided pleural effusion. Code Visit Inpatient E&M: 98845 Init Hosp L3
[2019-04-18 08:51] LABS: AST(SGOT) 14 U/L (15-37); Alanine Aminotransfer ALT/SGPT 12 U/L (13-56); Albumin, Serum 2.9 g/dL (3.2-5.0); Alkaline Phosphatase 58 U/L (45-117); Bilirubin, Direct 0.09 mg/dL (0.00-0.30); Globulin 3.7 g/dL (2.2-4.2); Protein, Total 6.6 g/dL (6.4-8.2)
[2019-04-18 09:35] LABS: Bedside Glucose 187 mg/dL (70-110)
[2019-04-18] MEDS: dilTIAZem CD 240 MG Capsule PO (10:55)
[2019-04-18] MEDS: tiZANidine HCl 2 MG Tablet 4 MG PO ×2 (10:55→21:45)
[2019-04-18] MEDS: guaiFENesin 1,200 MG Tablet 1200 MG PO ×2 (10:55→21:44)
[2019-04-18] MEDS: Metoprolol Tartrate 25 MG Tablet PO ×2 (10:55→21:43)
[2019-04-18] MEDS: ALPRAZolam 0.5 MG Tablet PO (10:55)
[2019-04-18] MEDS: LINAGLIPTIN 5 MG TABLET PO (10:56)
[2019-04-18] MEDS: Pramipexole Di-HCl 0.25 MG Tablet PO ×2 (10:56→21:43)
[2019-04-18] MEDS: Pantoprazole Sodium 40 MG Tablet PO (10:56)
[2019-04-18] MEDS: Iron Polysaccharide Complex 150 MG CAPSULE PO (10:57)
[2019-04-18] MEDS: 0.9% Normal Saline 1,000 ML 75 ML IV (10:57)
[2019-04-18] MEDS: Fluticasone 0.05% 1 SPRAY NASAL.SRY 2 SPRAY NASAL (11:07)
--- NOTE | 2019-04-18 11:15 | CASEMGMT ---
SUSI LOW Face to Face with patient for initial transition planning/care coordination assessment. RN MARANDA introduced self and role at [facility]. Patient lying in bed, alert and oriented. Patient willing to participate in assessment and is able to answer all questions appropriately. Care providers, pharmacy, and demographics verified. Patient wishes to discharge home, denies need for home health at this time. Patient states she has no further needs or concerns at this time. CM to follow for discharge planning needs that may arise. PCP: Carolyn Specialists: Mariam Dunham Pharmacy: [facility] Insurance: [employer] [facility] PPO Prescription Benefit: yes Living Will/HPOA: yes, daughter Tsering Kim HPOA LNOK: Daughter Living Arrangements: Patient lives alone in a first floor apartment, patient states she is independent at home. Transportation: patient uses [employer], hospital van DME/HHC: Patient states she has shower chair, raised toilet seat, cane, grab bars, walker, cpap, nebulizer, oxygen PRN and at through [facility], has portability and concentrator. Patient also has hover [employer]. Patient denies need for HHC Disposition Plan: Patient to discharge home with family support and follow-up plans in place. Mague PAL, RN, CM
[2019-04-18] MEDS: Ondansetron 4 MG/2 ML Vial IV (13:21)
[2019-04-18] MEDS: 0.9% NaCl Peripheral Flush Adult/Peds IV (13:21)
--- NOTE | 2019-04-18 14:08 | CHAPLAIN ---
Type of Pastoral Visit _x__ Initial Visit ___ Follow-up Visit ___ On-call Visit ___ General Patient Visit ___ Spiritual Assessment ___ Family Conference ___ Bereavement ___ Rapid Response ___ Code Blue ___ Other (describe below) Pastoral Care Referral From _x__ Patient ___ Family ___ Nurse ___ Physician ___ Director [employer] Engineering ___ Ski Molder ___ Other (describe below) Sacrament/Intervention _x__ Active listening ___ Anointing ___ Yazdanism ___ Bereavement ___ Communion ___ Roslyn exploration ___ _x__ Life review _x__ Prayer ___ Reconciliation ___ Sacrament of Sick ___ Supportive presence ___ Wedding ___ Other (describe below) Pastoral Comments
--- NOTE | 2019-04-18 14:29 | NURSING ---
04/18/19 am Micro notified this RN of positive enteric panel shiga [address] Cornejo notified. He stated maybe we can treat the bacterial infection instead of colonoscopy which would be planned for 04/18/19 am. At 1425 micro notified me that they repeated the enteric panel and it is now negative. The am result was a false positive. flexboard operator Gary updated.
[2019-04-18] MEDS: Methimazole 5 MG Tablet PO (14:46)
--- NOTE | 2019-04-18 15:50 | CASEMGMT ---
SUSI LOW NOTE: Reviewed PT/OT notes. Further PT/OT recommended. To room to talk with pt and discussed options for therapy. Pt declines HHC or OP therapy at this time, stating she feels she does not need it. Pt made aware that if she changes her mind in the future, that she can discuss options with PCP. Pt voices understanding.
[2019-04-18] MEDS: Insulin Lispro 100 UNIT/ML INSULN.PEN SC ×3 (16:43→22:30)
[2019-04-18 16:56] LABS: Bedside Glucose 400 mg/dL (70-110)
[2019-04-18] MEDS: oxyCODONE 5 MG Tablet PO (19:30)
[2019-04-18] MEDS: Tolterodine Tartrate 4 MG CAP.SA PO (21:43)
[2019-04-18] MEDS: Atorvastatin Calcium 20 MG Tablet PO (21:43)
[2019-04-18] MEDS: Paroxetine 20 MG Tablet 40 MG PO (21:46)
--- NOTE | 2019-04-18 21:55 | NURSING ---
BGT 514, rechecked 520. Pt reports feeling hot, but otherwise asymptomatic. Dr Doherty made aware. New orders received.
[2019-04-19] VITALS (24 sets, daily range): BP systolic 113–140; BP diastolic 51–70; PULSE 66–85; RESP 16–20; TEMP 36.5–37; O2SAT 95–100
[2019-04-19] MEDS: Insulin Lispro 100 UNIT/ML INSULN.PEN SC ×5 (03:21→22:12)
[2019-04-19] MEDS: Ipratropium/Albuterol Sulfate 3 ML AMPUL.NEB INHALATION ×6 (03:23→22:38)
[2019-04-19] MEDS: oxyCODONE 5 MG Tablet PO ×3 (03:24→22:23)
[2019-04-19 03:30] LABS: Bedside Glucose 321 mg/dL (70-110)
[2019-04-19] MEDS: Pramipexole Di-HCl 0.25 MG Tablet PO ×3 (06:42→22:14)
[2019-04-19 06:55] LABS: Bedside Glucose 291 mg/dL (70-110)
[2019-04-19 07:00] LABS: Bedside Glucose > 500 mg/dL (70-110)
[2019-04-19 07:00] LABS: Bedside Glucose > 500 mg/dL (70-110)
[2019-04-19 07:51] LABS: Absolute Lymphocyte Count 0.57 X10^3/ul (0.83-4.51); Absolute Neutrophil Count 7.6 X10^3/uL (2.0-7.7); Hematocrit 25.1 % (37-47); Hemoglobin 7.5 g/dl (12.0-15.0); Lymphocyte # 0.57 X10^3/ul (4.0); Lymphocyte % 6.6 % (19-41); Mean Corp Hgb Conc 29.9 g/gl (32-36); Mean Corpuscular Hgb 21.2 pg (27.0-32.0); Mean Corpuscular Volume 70.9 fL (81-99); Monocyte# 0.36 X10^3/uL; Monocyte% 4.2 % (0-10); Neutrophil # 7.64 X10^3/uL (2.7-7.7); Neutrophil % 89.1 % (47-70); Platelet Count 196 K/mm3 (150-450); RBC Distribution Width CV 20.9 % (11.6-14.6); RBC Distribution Width SD 54.2 fl (35.1-43.9); Red Blood Count 3.54 M/mm3 (4.2-5.4); White Blood Count 8.6 K/mm3 (4.4-11.0)
[2019-04-19 08:13] LABS: Anion Gap 8 (5-15); BUN 36 mg/dL (7-18); BUN/Creat Ratio 30.3 RATIO (10-20); Calcium,Total 8.6 mg/dL (8.5-10.1); Chloride 104 mmol/L (98-107); Cholesterol 107 mg/dL (200); Creatinine, Serum 1.19 mg/dL (0.55-1.02); Differential Indicated SCAN CRITERIA MET; EST Glomerular Filtration Rate 47 mL/min (>60); Est Glom Filt Rate - Afr Amer 57 mL/min (>60); Estimated Creatinine Clearance 30.24 ml/min; Glucose 301 mg/dL (74-106); High Density Lipoprotein 48 mg/dL; POSITIVE COUNT NO; POSITIVE DIFFERENTIAL YES; POSITIVE MORPHOLOGY YES; Potassium 4.7 mmol/L (3.5-5.1); Sodium Level 138 mmol/L (136-145); Thyroid Stim Hormone (TSH) < 0.01 uIU/mL (0.358-3.74); Triglycerides 67 mg/dL; Very Low Density Lipoprotein 13 mg/dL (5-40)
[2019-04-19] MEDS: Vitamin B Comp W-C Capsule 1 CAP PO (08:21)
[2019-04-19] MEDS: Aspirin E.C. 81 MG Tablet PO (08:21)
[2019-04-19 08:43] LABS: Differential Comment SCANNED
[2019-04-19 08:44] LABS: Anisocytosis 2+; Hypochromasia 2+; Macrocytosis 1+; Microcytosis 1+; Platelet Morphology LARGE; Polychromasia 1+
[2019-04-19] MEDS: 0.9% NaCl Peripheral Flush Adult/Peds IV ×2 (09:44→14:15)
[2019-04-19] MEDS: Fluticasone 0.05% 1 SPRAY NASAL.SRY 2 SPRAY NASAL (09:55)
[2019-04-19] MEDS: Pantoprazole Sodium 40 MG Tablet PO (09:56)
[2019-04-19] MEDS: tiZANidine HCl 2 MG Tablet 4 MG PO ×2 (09:56→22:15)
[2019-04-19] MEDS: LINAGLIPTIN 5 MG TABLET PO (09:56)
[2019-04-19] MEDS: Methimazole 5 MG Tablet PO (09:56)
[2019-04-19] MEDS: dilTIAZem CD 240 MG Capsule PO (09:57)
[2019-04-19] MEDS: Iron Polysaccharide Complex 150 MG CAPSULE PO (09:58)
[2019-04-19] MEDS: Metoprolol Tartrate 25 MG Tablet PO ×2 (09:59→22:14)
[2019-04-19] MEDS: guaiFENesin 1,200 MG Tablet 1200 MG PO ×2 (10:00→22:14)
[2019-04-19] MEDS: ALPRAZolam 0.5 MG Tablet PO (10:07)
--- NOTE | 2019-04-19 12:45 | PN_ITS ---
Patient Problems: Active and Suspected Problems (Last Reviewed 03/22/19 @ 09:55 by Moose Raya MD) COPD exacerbation (Acute) Acute on chronic anemia (Acute) Subjective: Patient respiratory status is improved. No fever. No tachypnea, pulse ox 98% on 2 L of oxygen through nasal cannula. Patient had 1 unit of PRBC transfusion. Scheduled for 1 more PRBC transfusion today. Vitals/I&O's: Vital Signs Temp Pulse Resp BP Pulse Ox 97.7 F L 82 18 114/55 L 95 04/19/19 08:17 04/19/19 11:17 04/19/19 11:17 04/19/19 09:59 04/19/19 08:17 Oxygen Flow Rate (L/min) 2 Oxygen Delivery Method Nasal Cannula Weight: 169 lb 8.568 oz Body Mass Index (BMI) 33.0 Finger Stick Blood Glucose 112 Intake and Output for Last 24 Hours 04/17/19 04/18/19 04/19/19 23:59 23:59 23:59 Intake Total 1941 1050 / 1050 Balance 1941 1050 / 1050 General: Alert, Oriented x3, Cooperative HEENT: Atraumatic, PERRLA, EOMI, Normocephalic Neck: Supple, No JVD, Negative Carotid Bruits Lungs: Clear to auscultation, Diminished - Air entry is diminished in bilateral lung bases., Rhonchi - Expiratory rhonchi have improved., Short of Breath - Has improved. Cardiovascular: Regular rate, Normal S1, Normal S2, Murmur - Artificial aortic valve click present. Systolic murmur over aortic valve Abdomen: Bowel Sounds Present, Soft, Non Tender, Non-Distended Extremities: No edema, Capillary Refill Less than 3 Seconds Skin: No rashes, No breakdown Musculoskeletal: No Tenderness to Palpation of Joints or Extremities Neurological: Cranial nerves II-XII grossly intact Psych/Mental Status: Normal Affect, Appropriate Microbiology Past 72 Hours 04/18/19 09:30 Mucosa - Nasopharyngeal Respiratory Panel (PCR) - Final Laboratory Results 04/18/19 08:16: Crossmatch See Detail 04/18/19 13:00: Troponin I < 0.015 04/18/19 16:38: POC Glucose 400 H 04/18/19 21:39: POC Glucose > 500 H* 04/18/19 21:41: POC Glucose > 500 H* 04/19/19 03:03: POC Glucose 321 H 04/19/19 06:35: WBC 8.6, RBC 3.54 L, Hgb 7.5 L, Hct 25.1 L, MCV 70.9 L, MCH 21.2 L, MCHC 29.9 L, RDW 20.9 H, RDW Differential 54.2 H, Plt Count 196, Immature Gran % (Auto) 0.100, Neut % (Auto) 89.1 H, Lymph % (Auto) 6.6 L, White % (Auto) 4.2, Eos % (Auto) 0.0, Baso % (Auto) 0.0, Absolute Neuts (auto) 7.6, Absolute Lymphs (auto) 0.57 L, Total Counted Not Reportable, Differential Comment SCANNED, Plt Morphology Comment LARGE, Polychromasia 1+, Hypochromasia 2+, Anisocytosis 2+, Microcytosis 1+, Macrocytosis 1+ 04/19/19 06:35: Sodium 138, Potassium 4.7, Chloride 104, Carbon Dioxide 26.0, Anion Gap 8, BUN 36 H, Creatinine 1.19 H, Estim Creat Clear Calc 30.24, Est GFR (MDRD) Af Amer 57 L, Est GFR (MDRD) Non-Af 47 L, BUN/Creatinine Ratio 30.3 H, Glucose 301 H, Calcium 8.6, Triglycerides 67, Cholesterol 107, LDL Cholesterol 46, VLDL Cholesterol 13, HDL Cholesterol 48, TSH < 0.01 L 04/19/19 06:36: POC Glucose 291 H Current Medications Albuterol Sulfate (Ventolin Aerosols) 2.5 mg INHALATION Q2H PRN PRN PRN Reason: SHORTNESS OF BREATH Albuterol/Ipratropium (Duoneb) 3 ml INHALATION Q4H.RT [facility] Last Admin: 04/19/19 11:17 Dose: 3 ml Documented by: Alprazolam (Xanax) 0.5 mg PO DAILY [facility] Last Admin: 04/19/19 10:07 Dose: 0.5 mg Documented by: Aspirin (Ecotrin) 81 mg PO DAILY@0800 [facility] Last Admin: 04/19/19 08:21 Dose: 81 mg Documented by: Atorvastatin Calcium (Lipitor) 20 mg PO QHS [facility] Last Admin: 04/18/19 21:43 Dose: 20 mg Documented by: Bisacodyl (Dulcolax) 10 mg RECTAL DAILY PRN PRN PRN Reason: Constipation Cholecalciferol (Vitamin D) 2,000 unit PO DAILY [facility] Last Admin: 04/19/19 09:59 Dose: 2,000 unit Documented by: Dextrose (D50w Syringe) 0 gm IV X1 PRN; Protocol PRN Reason: Hypoglycemia Diltiazem HCl (Cardizem Cd) 240 mg PO DAILY [facility] Last Admin: 04/19/19 09:57 Dose: 240 mg Documented by: Fluticasone Propionate (Flonase Nasal [place]) 2 spray NASAL DAILY [facility] Last Admin: 04/19/19 09:55 Dose: 2 spray Documented by: Glucagon () 1 mg IM .X1 PRN PRN Reason: Hypoglycemia Guaifenesin (Mucinex) 1,200 mg PO BID [facility] Last Admin: 04/19/19 10:00 Dose: 1,200 mg Documented by: Azithromycin 500 mg/ Dextrose 255 mls @ 250 mls/hr IV Q24 [facility] Stop: 04/21/19 11:02 Last Admin: 04/19/19 09:44 Dose: 250 mls/hr Documented by: Insulin Glargine (Lantus (Bkc)) 50 units SC QHS [facility] Last Admin: 04/18/19 22:28 Dose: 50 units Documented by: Insulin Human Lispro (Humalog Kwikpen (Bk)) 0 unit SC ACHS & 3AM DIAMOND; Protocol Last Admin: 04/19/19 12:33 Dose: 10 units Documented by: Linagliptin (Tradjenta) 5 mg PO DAILY [facility] Last Admin: 04/19/19 09:56 Dose: 5 mg Documented by: Melatonin (Melatonin) 3 mg PO QHS PRN PRN PRN Reason: INSOMNIA Methimazole (Tapazole) 5 mg PO DAILY [facility] Last Admin: 04/19/19 09:56 Dose: 5 mg Documented by: Methylprednisolone (Solu-Medrol) 40 mg IV Q8 [facility] Last Admin: 04/19/19 06:39 Dose: 40 mg Documented by: Metoprolol Tartrate (Lopressor (Beta Isabel)) 25 mg PO BID [facility] Last Admin: 04/19/19 09:59 Dose: 25 mg Documented by: Morphine Sulfate () 2 mg IV Q3H PRN PRN PRN Reason: Severe Pain (pain scale 6-10) Multivitamins (Allbee W/C Caplet, Thera B Comp/C) [facility] Admin: 04/19/19 08:21 Dose: 1 capsule Documented by: Nitroglycerin (Nitrostat) 0.4 mg SUBLINGUAL Q5M PRN PRN Reason: Chest Pain Ondansetron HCl (Zofran) 4 mg IV Q8H PRN PRN PRN Reason: NAUSEA/VOMITING Last Admin: 04/18/19 13:21 Dose: 4 mg Documented by: Oxycodone HCl (Oxyir) 5 mg PO Q4H PRN PRN PRN Reason: Moderate Pain (pain scale 4-5) Last Admin: 04/19/19 09:54 Dose: 5 mg Documented by: Pantoprazole Sodium (Protonix) 40 mg PO DAILY [facility] Last Admin: 04/19/19 09:56 Dose: 40 mg Documented by: Paroxetine HCl (Paxil) 40 mg PO QHS [facility] Last Admin: 04/18/19 21:46 Dose: 40 mg Documented by: Polyethylene Glycol (Miralax) 17 gm PO DAILY [facility] Last Admin: 04/19/19 10:00 Dose: Not Given Documented by: Polysaccharide Iron Complex (Ferrex 150) 150 mg PO DAILY [facility] Last Admin: 04/19/19 09:58 Dose: 150 mg Documented by: Potassium Chloride (K-Dur) 10 meq PO BID [facility] Last Admin: 04/19/19 09:59 Dose: 10 meq Documented by: Pramipexole Dihydrochloride (Mirapex) 0.25 mg PO TID [facility] Last Admin: 04/19/19 06:42 Dose: 0.25 mg Documented by: Promethazine HCl (Phenergan) 12.5 mg IV Q4H PRN PRN PRN Reason: NAUSEA/VOMITING Senna/Docusate Sodium (Senokot-S, Elle-Colace) 2 tablet PO BID PRN PRN PRN Reason: Constipation Sodium Chloride () 10 - 40 ml IV UD PRN PRN Reason: SALINE FLUSH Last Admin: 04/19/19 09:44 Dose: 10 ml Documented by: Throat Lozenges (Cepacol Sore Throat Lozenge) 1 lozenge MUCOUS MEM Q2H PRN PRN PRN Reason: Sore Throat/Cough Tizanidine HCl (Zanaflex) 4 mg PO BID [facility] Last Admin: 04/19/19 09:56 Dose: 4 mg Documented by: Tolterodine Tartrate (Detrol La) 4 mg PO QHS [facility] Last Admin: 04/18/19 21:43 Dose: 4 mg Documented by: Medical Necessity - Tobacco Use Smoking Status: Former smoker Assessment/Plan All Active Problems (Last Reviewed 03/22/19 @ 09:55 by Moose Raya MD) COPD exacerbation (Acute) Acute on chronic anemia (Acute) Chronic hypoxemic respiratory failure (Resolved) Colitis (Resolved) GI (gastrointestinal bleed) (Resolved) History of DVT (deep vein thrombosis) (Resolved) Hypomagnesemia (Resolved) Hypothyroidism (Resolved) Iron deficiency anemia (Resolved) Severe aortic stenosis (Resolved) The patient is a 74 year old F with multiple comorbidities as listed above including chronic microcytic anemia, MTHFR inhibitor/mutation, coronary artery disease status post aortic valve replacement and COPD came to ED with progressive worsening of shortness of breath since yesterday. Patient has mild shortness of breath on exertion but it got worse. Patient also has productive cough with clear sputum. Patient has chronic URI symptoms including nasal congestion and postnasal drip. Patient also complained of fever 101 yesterday. Patient also complained of chest tightness mainly in interscapular area and in the front mainly during cough which does not change with position. Seems pleuritic patient feels like that. Patient has seen Dr. raya about 2 weeks ago. Patient H&H was found 7.4/25.7, platelet count 262 with mild leukocytosis. Patient follows Dr. Gutierrez and gets PRBC last time about 2 years ago and iron infusion last time about a year ago. Patient is also on Xarelto for paroxysmal A. fib and currently front desk monitor shows sinus arrhythmia. Patient denies obvious external bleeding or major bruise including hematemesis/hematochezia/melena or hematuria/hemoptysis. Chest x-ray reviewed and shows chronic COPD changes right-sided subsegmental atelectasis with small effusion. EKG normal sinus rhythm with sinus arrhythmia, RBBB, QRS interval 124 ms. 1. COPD exacerbation with chronic hypoxic and hypercarbic respiratory failure: Patient is being admitted in PCU. Last blood gas was 7.34/46/56 but no mention about FiO2. Patient is on 3 L of home oxygen with CPAP at night and as needed during daytime. On bronchodilator DuoNeb, albuterol as needed, incentive spirometry and chest physiotherapy. Sputum culture shows rare gram-positive rods and positive cocci. Respiratory panel is negative. Solu-Medrol changed to prednisone. 2. Acute on chronic microcytic anemia possible aggravated by Xarelto with chronic MTHFR inhibitor/mutation: H&H did not improve after 1 unit of PRBC transfusion. Similar 7.02/08, platelet count 196 microcytic in nature. 1 more unit to be transfused today. Currently anticoagulants/antiplatelet on hold. Hold Xarelto. Patient was advised to change to Eliquis as Eliquis. 3. Pleuritic chest pain: Serial troponin enzymes are negative. ACS ruled out. Patient has history of coronary artery disease and bioprosthetic AVR and paroxysmal A. fib. Continue monitor. 4. Cardiac conditions: Chronic heart failure with preserved EF, coronary artery disease, bioprosthetic AVR proximal A. fib with secondary pulmonary hypertension: Patient last echo was in April 2017 reported as EF 60% with mild concentric LVH, normal LV systolic function, no regional wall motion majority. Normal RV size and systolic function. LA moderately enlarged, normal RA. Mild to moderate MR RVSP 57 mmHg with mild TR. Stable bioprosthetic aortic valve apparatus with mild to moderate bioprosthetic AV stenosis. No pericardial effusion. BNP 374. Patient does not seem to be in acute heart failure. Cardiac medications continued. 5. Diabetes mellitus type 2: Patient is on Lantus 50 units subcu at bedtime daily. Patient has severe hyperglycemia, more than 500 secondary to Solu-Medrol therefore Solu-Medrol discontinued. Lantus dose increased to 70 units at dinnertime. Comorbidities include essential hypertension, dyslipidemia, Chronic insomnia. 146/69: Patient blood pressure is stable, respiratory rate 20. Home medications reconciliation done. DVT prophylaxis: On bilateral SCDs. Pharmacological prophylaxis is contraindicated. Microbiology Past 72 Hours 04/18/19 22:15 Sputum, Expectorated/Coughed Gram Stain - Final 04/18/19 09:30 Mucosa - Nasopharyngeal Respiratory Panel (PCR) - Final Laboratory Results 04/18/19 08:16: Blood Type A POSITIVE, Antibody Screen NEGATIVE, Crossmatch See Detail 04/19/19 06:35: WBC 8.6, RBC 3.54 L, Hgb 7.5 L, Hct 25.1 L, MCV 70.9 L, MCH 21.2 L, MCHC 29.9 L, RDW 20.9 H, RDW Differential 54.2 H, Plt Count 196, Immature Gran % (Auto) 0.100, Neut % (Auto) 89.1 H, Lymph % (Auto) 6.6 L, White % (Auto) 4.2, Eos % (Auto) 0.0, Baso % (Auto) 0.0, Absolute Neuts (auto) 7.6, Absolute Lymphs (auto) 0.57 L, Total Counted Not Reportable, Differential Comment SCANNED, Plt Morphology Comment LARGE, Polychromasia 1+, Hypochromasia 2+, Anisocytosis 2+, Microcytosis 1+, Macrocytosis 1+ 04/19/19 06:35: Sodium 138, Potassium 4.7, Chloride 104, Carbon Dioxide 26.0, Anion Gap 8, BUN 36 H, Creatinine 1.19 H, Estim Creat Clear Calc 30.24, Est GFR (MDRD) Af Amer 57 L, Est GFR (MDRD) Non-Af 47 L, BUN/Creatinine Ratio 30.3 H, Glucose 301 H, Calcium 8.6, Triglycerides 67, Cholesterol 107, LDL Cholesterol 46, VLDL Cholesterol 13, HDL Cholesterol 48, TSH < 0.01 L 04/19/19 06:36: POC Glucose 291 H 04/19/19 12:27: POC Glucose 409 H Clinical Impression(s) from Imaging Studies Chest X-Ray 04/18/19 06:19 IMPRESSION: 1. Right-sided subsegmental atelectasis. 2. Right-sided pleural effusion. Code Visit Inpatient E&M: 77117 Subs Hosp L3
[2019-04-19 13:40] LABS: Bedside Glucose 409 mg/dL (70-110)
--- NOTE | 2019-04-19 14:12 | NURSING ---
This RN received report from SUSI Moncada. Introduced self and position to pt.
--- NOTE | 2019-04-19 16:54 | EKG12_ITS ---
Test Reason : CP ADMIT Blood Pressure : / mmHG Vent. Rate : 082 BPM Atrial Rate : 082 BPM P-R Int : 136 ms QRS Dur : 132 ms QT Int : 448 ms P-R-T Axes : 036 067 016 degrees QTc Int : 523 ms Sinus rhythm with Premature supraventricular complexes Right bundle branch block Abnormal ECG Confirmed by GYPSY MARTINEZ, SUNDAY ([id number]), food expeditor TIERRA BLANCO ([id number]) on 04/23/2019 1:52:21 PM Referred By: CECIL Confirmed By:SUNDAY BETANCUR MD
[2019-04-19 16:56] LABS: Bedside Glucose 272 mg/dL (70-110)
[2019-04-19] MEDS: Tolterodine Tartrate 4 MG CAP.SA PO (22:07)
[2019-04-19] MEDS: Atorvastatin Calcium 20 MG Tablet PO (22:13)
[2019-04-19] MEDS: Paroxetine 20 MG Tablet 40 MG PO (22:15)
[2019-04-19] MEDS: MELATONIN 3 MG TABLET PO (22:29)
[2019-04-19 22:41] LABS: Bedside Glucose 333 mg/dL (70-110)
[2019-04-20] VITALS (10 sets, daily range): BP systolic 110–128; BP diastolic 52–60; PULSE 70–88; RESP 18–20; TEMP 36.6–36.8; O2SAT 98–99
[2019-04-20 03:05] LABS: Bedside Glucose 148 mg/dL (70-110)
[2019-04-20] MEDS: Ipratropium/Albuterol Sulfate 3 ML AMPUL.NEB INHALATION ×3 (03:09→11:09)
[2019-04-20 06:14] LABS: Absolute Lymphocyte Count 0.81 X10^3/ul (0.83-4.51); Absolute Neutrophil Count 14.1 X10^3/uL (2.0-7.7); Differential Indicated SCAN CRITERIA MET; Hematocrit 28.6 % (37-47); Hemoglobin 8.7 g/dl (12.0-15.0); Lymphocyte # 0.81 X10^3/ul (4.0); Lymphocyte % 5.2 % (19-41); Mean Corp Hgb Conc 30.4 g/gl (32-36); Mean Corpuscular Hgb 22.3 pg (27.0-32.0); Mean Corpuscular Volume 73.1 fL (81-99); Monocyte# 0.75 X10^3/uL; Monocyte% 4.8 % (0-10); Neutrophil # 14.08 X10^3/uL (2.7-7.7); Neutrophil % 89.8 % (47-70); POSITIVE COUNT NO; POSITIVE DIFFERENTIAL NO; POSITIVE MORPHOLOGY YES; Platelet Count 193 K/mm3 (150-450); RBC Distribution Width SD 58.6 fl (35.1-43.9); Red Blood Count 3.91 M/mm3 (4.2-5.4); White Blood Count 15.7 K/mm3 (4.4-11.0)
[2019-04-20 06:27] LABS: Anion Gap 9 (5-15); BUN 50 mg/dL (7-18); BUN/Creat Ratio 36.2 RATIO (10-20); Calcium,Total 8.8 mg/dL (8.5-10.1); Chloride 105 mmol/L (98-107); Creatinine, Serum 1.38 mg/dL (0.55-1.02); EST Glomerular Filtration Rate 40 mL/min (>60); Est Glom Filt Rate - Afr Amer 48 mL/min (>60); Estimated Creatinine Clearance 26.08 ml/min; Glucose 148 mg/dL (74-106); Sodium Level 139 mmol/L (136-145)
[2019-04-20] MEDS: Pramipexole Di-HCl 0.25 MG Tablet PO ×2 (06:49→11:48)
[2019-04-20 06:53] LABS: Anisocytosis 1+; Differential Comment SCAN; Platelet Estimate ADEQUATE (ADEQ); Platelet Morphology LARGE
[2019-04-20 06:54] LABS: Hypochromasia 1+; Microcytosis 1+; Polychromasia RARE
[2019-04-20 07:11] LABS: Bedside Glucose 145 mg/dL (70-110)
[2019-04-20] MEDS: Senna/Docusate Sodium 1 Tablet 2 TABLET PO (07:44)
[2019-04-20] MEDS: Vitamin B Comp W-C Capsule 1 CAP PO (07:44)
[2019-04-20] MEDS: predniSONE 20 MG Tablet 40 MG PO (07:44)
[2019-04-20] MEDS: Polyethylene Glycol 3350 17 GM PACKET PO (09:00)
[2019-04-20] MEDS: ALPRAZolam 0.5 MG Tablet PO (09:00)
[2019-04-20] MEDS: LINAGLIPTIN 5 MG TABLET PO (09:01)
[2019-04-20] MEDS: Fluticasone 0.05% 1 SPRAY NASAL.SRY 2 SPRAY NASAL (09:01)
[2019-04-20] MEDS: Iron Polysaccharide Complex 150 MG CAPSULE PO (09:01)
[2019-04-20] MEDS: Pantoprazole Sodium 40 MG Tablet PO (09:01)
[2019-04-20] MEDS: guaiFENesin 1,200 MG Tablet 1200 MG PO (09:01)
[2019-04-20] MEDS: Metoprolol Tartrate 25 MG Tablet PO (09:02)
[2019-04-20] MEDS: tiZANidine HCl 2 MG Tablet 4 MG PO (09:02)
[2019-04-20] MEDS: Methimazole 5 MG Tablet PO (09:02)
[2019-04-20] MEDS: dilTIAZem CD 240 MG Capsule PO (09:02)
[2019-04-20] MEDS: 0.9% NaCl Peripheral Flush Adult/Peds IV ×2 (09:03→11:48)
--- NOTE | 2019-04-20 10:42 | DCINST_ITS ---
- Discharge Diagnoses Current Active Problems: Current Active and Chronic Problems (Last Reviewed 03/22/19 @ 09:55 by Moose Killian MD) COPD exacerbation (Acute) Acute on chronic anemia (Acute) You will use the following diet at home:: Calorie/Carbohydrate Controlled (specify 1200, 1400, etc) - 1800 ADA DIET, Cardiac Your food should be the consistency of: Regular Discharge Activity: May Not Drive Call your doctor if you observe: Fever of 101 or Higher, Inability to urinate, Inability to have a bowel movement, Shortness of breath, Dizziness, Fainting spells, Swelling in the ankles, Chest pain, Increased palpitations (irregular heartbeat), Calf discomfort, Uncontrolled pain Allergies/Adverse Reactions: Allergies ciprofloxacin [From Cipro] Allergy (Verified 04/18/19 06:15) Rash ciprofloxacin HCl [From Cipro] Allergy (Verified 04/18/19 06:15) Rash gabapentin [From Neurontin] Allergy (Verified 04/18/19 06:15) Rash Medications to take at Discharge Albuterol IH (ProAir) [Proair Hfa] 2 puff INHALATION Q4H PRN PRN 01/03/14 Fluticasone 0.05% [Flonase Nasal [place]] 2 spray NASAL DAILY 01/03/14 Ropinirole HCl [Requip Xl] 2 mg PO QHS 01/03/14 Linagliptin [Tradjenta] 5 mg PO DAILY 02/02/16 Fesoterodine Fumarate [Toviaz] 8 mg PO QHS 10/01/16 Nitroglycerin (INPATIENT USE) [Nitrostat] 0.4 mg SUBLINGUAL Q5M PRN 10/01/16 Roflumilast [Daliresp] 500 mcg PO DAILY 10/01/16 Tiotropium [place] [Spiriva 18 MCG] 1 puff INHALATION PRN PRN 10/01/16 Oxygen, Home [Home Oxygen] 3 lpm NASAL CONT PRN #0 10/04/16 B Complex with Vitamin C [B-Complex Plus Vitamin C] 1 ea PO DAILY 03/04/17 Tizanidine HCl 4 mg PO BID 03/04/17 Insulin Aspart [Novolog Flexpen] 0 units SC TIDAC 03/26/17 Iron Polysaccharide Complex [Ferrex 150] 150 mg PO DAILY 05/10/17 Paroxetine [Paxil] 40 mg PO DAILY 05/10/17 cholecalciferol (vitamin D3) 2,000 unit capsule 2,000 unit PO ONCE 09/29/17 esomeprazole magnesium 40 mg capsule,delayed release 40 mg PO QDAY cap 09/29/17 fluticasone 100 mcg-salmeterol 50 mcg/dose blistr powdr for inhalation 2 puff INHALATION BID ea 09/29/17 potassium chloride ER 10 mEq tablet,extended release 10 meq PO BID 02/23/18 furosemide 40 mg tablet 40 mg PO BID #60 tab 05/16/18 methimazole 5 mg tablet 5 mg PO DAILY #30 tab 08/03/18 oxycodone-acetaminophen 5 mg-325 mg tablet 1 tab PO TID tab 08/03/18 metoprolol tartrate 25 mg tablet 25 mg PO BID #60 tab 08/28/18 denosumab 60 mg/mL subcutaneous syringe 60 mg SC [id number] 11/14/18 alprazolam 0.5 mg tablet 0.5 mg PO DAILY tab 03/22/19 atorvastatin 20 mg tablet 20 mg PO QHS tab 03/22/19 suvorexant 10 mg tablet 20 mg PO QHS tab 03/22/19 diltiazem ER 240 mg capsule,24 hr,extended release 240 mg PO DAILY #60 cap 04/03/19 Insulin Detemir [Levemir FlexPen] 60 units SUBCUT QHS #0 04/20/19 Ipratropium/Albuterol Sulfate [Duoneb] 3 ml INHALATION Q4H PRN PRN #30 ampul.neb 04/20/19 Prednisone 10 mg PO UD #30 tab 04/20/19 The following prescriptions were given: Apixaban [Eliquis] 5 mg PO BID #60 tab Prescription Printed Primary Care Physician: Yesenia Leon NP-C [Primary Care Provider] - Please follow up with your Primary Care Physician in: IN 2 WEEKS Test Results: Test results from this visit will be discussed in further detail at your follow- up appointment, if applicable. Please Follow Up With: Jeevan Becerra MD When: IN 2-3 WEEKS Please Follow Up With: Moose Killian MD When: IN 3-4 weeks Please Follow Up With: Pee Gutierrez, When: for chr anemia, possible thrombosis?, DVT
--- NOTE | 2019-04-20 10:54 | DS.PCM_ITS ---
Discharge Date and Diagnosis - Problem List Patient Problems: Active and Suspected Problems (Last Reviewed 03/22/19 @ 09:55 by Moose Raya MD) COPD exacerbation (Acute) Acute on chronic anemia (Acute) Date of Admission: 04/18/19 Date of Discharge: 04/20/19 - Primary Discharge Diagnosis Active and Suspected Problems (Last Reviewed 03/22/19 @ 09:55 by Moose Raya MD) COPD exacerbation (Acute) Acute on chronic anemia (Acute) - Secondary Discharge Diagnosis Chronic Problems (Last Reviewed 03/22/19 @ 09:55 by Moose Raya MD) Claudication (Chronic) Chronic diastolic heart failure (Chronic) Non-rheumatic aortic stenosis (Chronic) Hyperlipidemia (Chronic) Essential (primary) hypertension (Chronic) Secondary pulmonary arterial hypertension (Chronic) H/O aortic valve replacement (Chronic 12/03/16) TAVR: 23 mm Guillaume-Sapiens S3 valve 12/03/2016 Hospital Course and Treatment Operations: None Summary of Care Provided: ] The patient is a 74 year old F with multiple comorbidities as listed above including chronic microcytic anemia, MTHFR inhibitor/mutation, coronary artery disease status post aortic valve replacement and COPD came to ED with progressive worsening of shortness of breath since yesterday. Patient also has productive cough with clear sputum. Patient also complained of chest tightness mainly in interscapular area and in the front mainly during cough which does not change with position. Seems pleuritic patient feels like that. Patient has seen Dr. raya about 2 weeks ago. Patient H&H was found 7.4/25.7, platelet count 262 with mild leukocytosis. Patient follows Dr. Gutierrez and gets PRBC last time about 2 years ago and iron infusion last time about a year ago. Patient is also on Xarelto for paroxysmal A. fib and currently classroom monitor shows sinus arrhythmia. Patient denies obvious external bleeding or major bruise including hematemesis/hematochezia/melena or hematuria/hemoptysis. Chest x-ray reviewed and shows chronic COPD changes right-sided subsegmental atelectasis with small effusion. EKG normal sinus rhythm with sinus arrhythmia, RBBB, QRS interval 124 ms. 1. COPD exacerbation with chronic hypoxic and hypercarbic respiratory failure: Patient is being admitted in PCU. Last blood gas was 7.34/46/56 but no mention about FiO2. Patient is on 3 L of home oxygen with CPAP at night and as needed during daytime. Shunt was managed with bronchodilator DuoNeb, albuterol as needed, incentive spirometry and chest physiotherapy. Preliminary sputum culture appears normal respiratory zeinab. Respiratory panel is negative. Solu-Medrol changed to prednisone. Patient discharged on tapering dose of prednisone, prescription for DuoNeb and has nebulization equipment at home. 2. Acute on chronic microcytic anemia possible aggravated by Xarelto with chronic MTHFR inhibitor/mutation: Currently anticoagulants/antiplatelet on hold. The patient had 2 units of PRBC transfusion.H&H improved to 8.7/28.6. Hold Xarelto. Anticoagulant was discussed with the patient's associate director data & analytics, Dr. raya. Xarelto was discontinued. Patient was discharged off anticoagulant medication and advised to follow-up with Dr. Gutierrez and Dr. raya. Patient further said she has history of possible DVT or PE although it is not mentioned in her problem list. Patient does not have any previous CTPA or venous Doppler. Dr. Gutierrez was called and waiting for response. Advised to follow-up in Dr. Winchester's office in 1 to 2 weeks for anemia and making decision on antithrombotics. 3. Pleuritic chest pain: Serial troponin enzymes are negative. ACS ruled out. Patient has history of coronary artery disease and bioprosthetic AVR and paroxysmal A. fib. Continue monitor. His heart 4. Cardiac conditions: Chronic heart failure with preserved EF, coronary artery disease, bioprosthetic AVR proximal A. fib with secondary pulmonary hypertension: Patient last echo was in April 2017 reported as EF 60% with mild concentric LVH, normal LV systolic function, no regional wall motion majority. Normal RV size and systolic function. LA moderately enlarged, normal RA. Mild to moderate MR RVSP 57 mmHg with mild TR. Stable bioprosthetic aortic valve apparatus with mild to moderate bioprosthetic AV stenosis. No pericardial effusion. BNP 374. Patient does not seem to be in acute heart failure. Cardiac medications continued. Diuretics was resumed, 40 mg twice daily. 5. Diabetes mellitus type 2: Patient is on Lantus 50 units subcu at bedtime daily. Patient has severe hyperglycemia, more than 500 secondary to Solu-Medrol therefore Solu-Medrol discontinued. Lantus dose increased to 70 units at dinnertime. Comorbidities include essential hypertension, dyslipidemia, Chronic insomnia. 146/69: Patient blood pressure is stable, respiratory rate 20. Home medications reconciliation done. DVT prophylaxis: On bilateral SCDs. Pharmacological prophylaxis is contraindicated. Discharge medication reconciliation done. Discharge follow-up instructions completed. Discharge process discussed with the patient and all questions were answered to patient's satisfaction. Prescription was given for tapering dose of prednisone, DuoNeb and ferrous sulfate. Total time spent, exact 35 minutes on discharge meds reconciliation, examination, review of imaging and blood test and discussion with the patient on follow-up instructions. Patient Problems: Active and Suspected Problems (Last Reviewed 03/22/19 @ 09:55 by Moose Raya MD) COPD exacerbation (Acute) Acute on chronic anemia (Acute) Objective: General: Alert, Oriented x3, Cooperative. Overall, seems mild fluid overloaded HEENT: Atraumatic, PERRLA, EOMI, Normocephalic Neck: Supple, No JVD, Negative Carotid Bruits Lungs: Clear to auscultation, Air entry is diminished in bilateral lung bases., Expiratory rhonchi have improved., Short of Breath Has improved. Cardiovascular: Regular rate, Normal S1, Normal S2, Murmur - Artificial aortic valve click present. Systolic murmur over aortic valve Abdomen: Bowel Sounds Present, Soft, Non Tender, Non-Distended Extremities: No edema, Capillary Refill Less than 3 Seconds Skin: No rashes, No breakdown Musculoskeletal: No Tenderness to Palpation of Joints or Extremities. Mild leg edema Neurological: Cranial nerves II-XII grossly intact Psych/Mental Status: Normal Affect, Appropriate - Physical Exam Vital Signs Temp Pulse Resp BP Pulse Ox 97.8 F 71 18 128/53 H 99 04/20/19 08:59 04/20/19 09:02 04/20/19 08:59 04/20/19 08:59 04/20/19 08:59 Oxygen Flow Rate (L/min) 2 Oxygen Delivery Method Nasal Cannula Weight: 174 lb 9.698 oz Body Mass Index (BMI) 33.0 Finger Stick Blood Glucose 112 Intake and Output for Last 24 Hours 04/18/19 04/19/19 04/20/19 23:59 23:59 23:59 Intake Total 1941 2973 / 2973 100 / 100 Balance 1941 2973 / 2973 100 / 100 Microbiology Past 72 Hours 04/18/19 22:15 Gram Stain - Final Sputum, Expectorated/Coughed Respiratory Culture - Preliminary Appears to be normal respiratory zeinab. Further studies to follow. 04/18/19 06:30 Blood Culture - Preliminary Blood Culture (Wb) #2 - Right Hand No growth in 48 hours. 04/18/19 06:30 Blood Culture - Preliminary Blood Culture (Wb) - Left Forearm No growth in 48 hours. 04/18/19 09:30 Respiratory Panel (PCR) - Final Mucosa - Nasopharyngeal Laboratory Tests Past 24 Hrs 04/18/19 04/20/19 04/20/19 08:16 05:46 05:46 WBC 15.7 H RBC 3.91 L Hgb 8.7 L Hct 28.6 L MCV 73.1 L MCH 22.3 L MCHC 30.4 L RDW 22.0 H RDW Differential 58.6 H Plt Count 193 Immature Gran % (Auto) 0.200 Neut % (Auto) 89.8 H Lymph % (Auto) 5.2 L [place] % (Auto) 4.8 Eos % (Auto) 0.0 Baso % (Auto) 0.0 Absolute Neuts (auto) 14.1 H Absolute Lymphs (auto) 0.81 L Total Counted Not Reportable Differential Comment SCAN Platelet Estimate ADEQUATE Plt Morphology Comment LARGE Polychromasia RARE Hypochromasia 1+ Anisocytosis 1+ Microcytosis 1+ Sodium 139 Potassium 5.0 Chloride 105 Carbon Dioxide 25.0 Anion Gap 9 BUN 50 H Creatinine 1.38 H Estim Creat Clear Calc 26.08 Est GFR (MDRD) Af Amer 48 L Est GFR (MDRD) Non-Af 40 L BUN/Creatinine Ratio 36.2 H Glucose 148 H Calcium 8.8 Blood Type A POSITIVE Antibody Screen NEGATIVE Crossmatch See Detail POC Glucose 04/20/19 04/20/19 04/19/19 06:52 02:58 22:09 POC Glucose 145 H 148 H 333 H 04/19/19 04/19/19 16:33 12:27 POC Glucose 272 H 409 H Discharge Activity: May Not Drive Call your doctor if you observe: Fever of 101 or Higher, Inability to urinate, Inability to have a bowel movement, Shortness of breath, Dizziness, Fainting spells, Swelling in the ankles, Chest pain, Increased palpitations (irregular heartbeat), Calf discomfort, Uncontrolled pain Home Medications: Medications to take at Discharge Albuterol IH (ProAir) [Proair Hfa] 2 puff INHALATION Q4H PRN PRN 01/03/14 Fluticasone 0.05% [Flonase Nasal Terral] 2 spray NASAL DAILY 01/03/14 Ropinirole HCl [Requip Xl] 2 mg PO QHS 01/03/14 Linagliptin [Tradjenta] 5 mg PO DAILY 02/02/16 Fesoterodine Fumarate [Toviaz] 8 mg PO QHS 10/01/16 Nitroglycerin (INPATIENT USE) [Nitrostat] 0.4 mg SUBLINGUAL Q5M PRN 10/01/16 Roflumilast [Daliresp] 500 mcg PO DAILY 10/01/16 Tiotropium [place] [Spiriva 18 MCG] 1 puff INHALATION PRN PRN 10/01/16 Oxygen, Home [Home Oxygen] 3 lpm NASAL CONT PRN #0 10/04/16 B Complex with Vitamin C [B-Complex Plus Vitamin C] 1 ea PO DAILY 03/04/17 Tizanidine HCl 4 mg PO BID 03/04/17 Insulin Aspart [Novolog Flexpen] 0 units SC TIDAC 03/26/17 Iron Polysaccharide Complex [Ferrex 150] 150 mg PO DAILY 05/10/17 Paroxetine [Paxil] 40 mg PO DAILY 05/10/17 cholecalciferol (vitamin D3) 2,000 unit capsule 2,000 unit PO ONCE 09/29/17 esomeprazole magnesium 40 mg capsule,delayed release 40 mg PO QDAY cap 09/29/17 fluticasone 100 mcg-salmeterol 50 mcg/dose blistr powdr for inhalation 2 puff INHALATION BID ea 09/29/17 potassium chloride ER 10 mEq tablet,extended release 10 meq PO BID 02/23/18 furosemide 40 mg tablet 40 mg PO BID #60 tab 05/16/18 methimazole 5 mg tablet 5 mg PO DAILY #30 tab 08/03/18 oxycodone-acetaminophen 5 mg-325 mg tablet 1 tab PO TID tab 08/03/18 metoprolol tartrate 25 mg tablet 25 mg PO BID #60 tab 08/28/18 denosumab 60 mg/mL subcutaneous syringe 60 mg SC [id number] 11/14/18 alprazolam 0.5 mg tablet 0.5 mg PO DAILY tab 06/06/19 atorvastatin 20 mg tablet 20 mg PO QHS tab 03/22/19 suvorexant 10 mg tablet 20 mg PO QHS tab 03/22/19 diltiazem ER 240 mg capsule,24 hr,extended release 240 mg PO DAILY #60 cap 04/03/19 Insulin Detemir [Levemir FlexPen] 60 units SUBCUT QHS #0 04/20/19 Ipratropium/Albuterol Sulfate [Duoneb] 3 ml INHALATION Q4H PRN PRN #30 ampul.neb 04/20/19 Prednisone 10 mg PO UD #30 tab 04/20/19 Following Prescrptions Were Given to Patient: Ipratropium/Albuterol Sulfate [Duoneb] 3 ml INHALATION Q4H PRN PRN #30 ampul.neb PRN Reason: Sob &/Or Wheezing Prescription Printed Prednisone 10 mg PO UD #30 tab Prescription Printed Primary Care Physician: Yesenia Leon, CHRISTIAN-C [Primary Care Provider] - Please follow up with your Primary Care Physician in: IN 2 WEEKS Please Follow Up With: Jeevan Becerra MD When: IN 2-3 WEEKS Please Follow Up With: Moose Raya MD When: IN 3-4 weeks Please Follow Up With: Pee Gtuierrez DO When: for chr anemia, possible thrombosis?, DVT Medical Necessity - Tobacco Use Smoking Status: Former smoker Meaningful Use Info Meaningful Use Diagnoses (Choose all that apply): None applicable Code Visit Inpatient E&M: 69107 Disch Hosp
[2019-04-20] MEDS: Insulin Lispro 100 UNIT/ML INSULN.PEN SC (11:10)
[2019-04-20 11:25] LABS: Bedside Glucose 284 mg/dL (70-110)
[2019-04-20] MEDS: Furosemide 40 MG/4 ML Vial IV (11:48)
--- NOTE | 2019-04-23 15:57 | CASEMGMT ---
SUSI CM Discharge Follow-up Phone Call: ROMELIA: Juve Strata: 3 Call Date: 04/23/19 Discharge Date: 04/20/19 Time of Call: 1540 Duration: 15 minutes ? Admitting Diagnosis: COPD exac, Acute on chronic anemia Discharge follow-up call made to patient. Patient states she has been feeling better since being discharged. Did relay visit to the ED on 04/22/19 but states she is feeling better on this date. Pt states she has her follow-up appointments made with her primary care physician, Dr. Gutierrez, and Dr. Becerra for which she has made transportation arrangements with the hospital's van service and with her neighbor. Pt was able to obtain her prescriptions including the prednisone and the duonebs (using q4 hours). Pt states she has been remaining indoors as much as possible due to the heat, humidity, and recent sealing of the blacktop in her allotment the smell of which makes it difficult to breathe. She is continuing to use her home O2 continuously. Reviewed DM management: Pt states she checks her glucose prior to each meal and uses a sliding scale for insulin coverage. Pt states her fasting glucose has been 138-140. States she has been following a diabetic diet since 1993 when diagnosed and does not have any questions or concerns. States she understands that if she takes care of herself and follows diet and medication instructions then she can remain independent longer. Reviewed CHF management: Pt states she does drink a gallon of water daily. States she will on occasion eat more watermelon than she should be then eliminates other fluid intake. Pt also states she likes to chew on ice regularly. Pt states she takes her lasix 40mg each morning and if she feels like she is retaining fluid she will take a second dose around 3pm. She judges this by the puffiness of her hands. She also weighs herself on her digital scale each morning and is regularly between 165-168#'s. She states she is down 3# since being admitted to the hospital. 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 Pt denied any further questions or concerns. Norma Barillas RN
--- NOTE | 2019-04-24 14:15 | CASEMGMT ---
SUSI LOW DC PHONE CALL DC DATE: 04/24/19 DC Disposition: Home Diagnosis on Discharge: Home LACE/STRATA: 08/19 intro role of CM to patient via phone. Pt denies having questions re: dc instructions, prescriptions or f/u. States she was at her doctor's today. Clarice TENAN RN ACM
== END 2019-04-20 12:49 | disposition home or self-care (01) | DRG 191 ==
LOC: ED 07:37 → PCU 07:49
PROVIDERS: Admitting Provider Internal Medicine; Emergency Provider Emergency Medicine; Family Provider Nurse Practitioner; PCP Nurse Practitioner; Visit Provider Internal Medicine
DX: J44.1 Chronic obstructive pulmonary disease with (acute) exacerbation (principal); J96.11 Chronic respiratory failure with hypoxia; E72.12 Methylenetetrahydrofolate reductase deficiency; I50.32 Chronic diastolic (congestive) heart failure; J96.12 Chronic respiratory failure with hypercapnia; Z99.81 Dependence on supplemental oxygen; I25.10 Atherosclerotic heart disease of native coronary artery without angina pectoris; I48.0 Paroxysmal atrial fibrillation; I11.0 Hypertensive heart disease with heart failure; E78.5 Hyperlipidemia, unspecified; D50.9 Iron deficiency anemia, unspecified; I27.21 Secondary pulmonary arterial hypertension; Z95.3 Presence of xenogenic heart valve; Z79.01 Long term (current) use of anticoagulants; E11.65 Type 2 diabetes mellitus with hyperglycemia; Z79.4 Long term (current) use of insulin; Z87.891 Personal history of nicotine dependence
CPT/HCPCS: 36415; 71046; 80048; 80061; 80076; 82962; 83880; 84443; 84484; 85025; 86850; 86900; 86920; 86922; 87040; 87070; 87205; 87633; 93005; 94640; 94667; 94668; 97110; 97162; 97166; 97530; 99285; J7030; J7040; P9016; A4216; J1940; J2405

== ENCOUNTER 2019-04-22 12:37 | Emergency (ER) | payer MEDICARE, MEDICAID, SELFPAY ==
[2019-04-18 08:13] VITALS: BMI 33.0
[2019-04-22 12:37] VITALS: BP 144/110; PULSE 83; RESP 21; TEMP 36.6; O2SAT 89; BMI 34.2
--- NOTE | 2019-04-22 12:51 | RAD_ITS ---
STUDY: X-RAY CHEST REASON FOR EXAM: Female, 74 years old. Chest pain, shortness of breath and cough. TECHNIQUE: AP upright portable view. COMPARISON: 04/18/2019. FINDINGS: Mild pulmonary hypoinflation. No confluent infiltrates. No suspicious pulmonary nodules. Right pleural fluid is unchanged. Normal size heart. Normal mediastinum and duarte. Normal visualized pulmonary arteries. Atherosclerotic calcifications along the thoracic aorta. Normal visualized thoracic spine. Old fractures of the right posterior fourth and fifth ribs. There is no demonstrated abnormality of the visualized soft tissue structures of the upper abdomen. RAD/Chest 1 View (Portable) IMPRESSION: 1. Right pleural fluid. 2. Old fractures of the right posterior fourth and fifth ribs. 3. No significant interval change when compared to 04/18/2019. Electronically Signed: Yahir Watts MD at 14:44 EDT , Service support ,
--- NOTE | 2019-04-22 12:51 | EKG12_ITS ---
Test Reason : CP Blood Pressure : / mmHG Vent. Rate : 084 BPM Atrial Rate : 084 BPM P-R Int : 116 ms QRS Dur : 130 ms QT Int : 410 ms P-R-T Axes : 072 073 018 degrees QTc Int : 484 ms Sinus rhythm with Premature atrial complexes Right bundle branch block Abnormal ECG Confirmed by GYPSY MARTINEZ, SUNDAY ([id number]), general expeditor LULÚ COLLINS ([id number]) on 04/26/2019 11:49:10 AM Referred By: LEONID Confirmed By:SUNDAY BETANCUR MD
--- NOTE | 2019-04-22 12:53 | ED.DCSUM_ITS ---
History of Present Illness Chief Complaint: Chest Pain Informant: Patient Onset: Yesterday Current Severity: Mild Narrative: Patient is complaining of shortness of breath that began late last evening just after she went to bed, she went to bed feeling fine she also reports a sense of severe chest congestion where she cannot cough the mucus out, indicates she has a history of aortic valve replacement paroxysmal atrial fibrillation COPD home O 2 2 L congestive heart failure, in case she is admitted to the hospital discharged on Tuesday on discharge she was feeling better she did well all day Tuesday and then had the above symptoms began early this morning as she was going to bed, she also believes her ankles are bilaterally more swollen, indicates she was switched from Xarelto to Eliquis but has not been able get Eliquis prescription filled she has no history of [place] PE or DVT her COPD is often difficult to control she was discharged home on oral antibiotics because of possible pneumonia Past Medical History - Allergies and Home Meds Allergies/Adverse Reactions: Allergies ciprofloxacin [From Cipro] Allergy (Verified 04/18/19 06:15) Rash ciprofloxacin HCl [From Cipro] Allergy (Verified 04/18/19 06:15) Rash gabapentin [From Neurontin] Allergy (Verified 04/18/19 06:15) Rash Primary Care Physician: Yesenia Leon NP-C [Primary Care Provider] - Past Medical History: - Surgical History: appendectomy - Right hip replacement, back surgery, laminectomy, carpal tunnel surgery, right leg hematoma extraction, hysterectomy, rotator cuff repair, total hip arthroplasty, - - carpal tunnel, RLE DVT Smoking Status: Former smoker - Family History Maternal Family History: Family History (Last Reviewed 03/22/19 @ 09:55 by Moose Killian MD) Mother Arthritis Diabetes Hormone deficiency CVA (cerebral vascular accident) Colon cancer Cancer Sister Bleeding disorder CVA (cerebral vascular accident) Colon cancer Daughter Cancer Seizures Father Diabetes Leukemia Grandmother Diabetes Unknown Asthma Heart disease Hypertension High cholesterol Thyroid disorder Osteoporosis Cancer Tuberculosis Family History: Reports: No pertinent history Review of Systems ROS: - See above in full chart Respiratory: Reports: Dyspnea, Cough, Sputum, Dyspnea on exertion Physical Exam Vital Signs/Narrative: Vital Signs Temp Pulse Resp BP Pulse Ox 04/22/19 12:37 97.9 F 83 21 H 144/110 H 89 General: Well nourished, Well developed, No Acute Distress, - - Pulse ox is 96% on 2l she is afebrile she speaking in full sentences Head: Normocephalic, Atraumatic Eyes: Perrl, EOMI ENT: Moist mucous membranes, No rhinorrhea Neck: Supple, Nontender Cardiovascular: Regular rate, Regular rhythm, No murmurs Respiratory: No distress, Chest nontender, Diminished Abdomen: Soft, Nontender, Nondistended, Normal bowel sounds Back: Nontender, Normal Inspection Extremities: Nontender, No edema Skin: Normal color, No rash Neurological: Alert, Oriented x3, Cranial nerves II-XII grossly intact, Normal Strength, Normal Sensation Psychological: Normal affect, Normal Mood Diagnostic/Tx/Re-eval - Medical Decision Making Her EKG shows sinus rhythm right bundle no acute injury pattern appreciated she is in no distress right now resting in the bed she indicates she has no exertional capacity, she is constantly coughing she cannot clear the mucus any labs therapy The patient screening labs are generally unremarkable see those reports, the chest x-ray shows a persistent right pleural effusion no change from prior. On reevaluation she is resting comfortably she is always flat in the bed she has no complaints she wants to go home she is feeling much better I explained her to stay on her medications follow-up with her physicians and return for change in symptoms I will give her 1 dose of Eliquis Home stable Final impression Exacerbation of COPD improved review ED Disposition - Plan for ED Patient: Diagnosis: COPD exacerbation Instructions: Copd Flare Referrals: Yesenia Leon, CHRISTIAN-C [Primary Care Provider] -
[2019-04-22 12:54] VITALS: O2SAT 97
[2019-04-22 13:00] VITALS: PULSE 87; RESP 22
[2019-04-22] MEDS: Ipratropium/Albuterol Sulfate 3 ML AMPUL.NEB INHALATION (13:00)
--- NOTE | 2019-04-22 13:14 | NURSING ---
CHEMISTRIES AND CBCD ARE TOO SHORT, NEED REDRAWN
[2019-04-22 13:43] LABS: Absolute Lymphocyte Count 0.78 X10^3/ul (0.83-4.51); Absolute Neutrophil Count 14.1 X10^3/uL (2.0-7.7); Eosinophil# 0.02 X10^3/uL; Eosinophils% 0.1 % (0-5); Hematocrit 36.1 % (37-47); Hemoglobin 10.8 g/dl (12.0-15.0); Lymphocyte # 0.78 X10^3/ul (4.0); Mean Corp Hgb Conc 29.9 g/gl (32-36); Mean Corpuscular Hgb 21.9 pg (27.0-32.0); Mean Corpuscular Volume 73.1 fL (81-99); Monocyte# 0.69 X10^3/uL; Monocyte% 4.4 % (0-10); Neutrophil # 14.14 X10^3/uL (2.7-7.7); Neutrophil % 90.1 % (47-70); Platelet Count 220 K/mm3 (150-450); RBC Distribution Width CV 23.2 % (11.6-14.6); RBC Distribution Width SD 60.4 fl (35.1-43.9); Red Blood Count 4.94 M/mm3 (4.2-5.4); White Blood Count 15.7 K/mm3 (4.4-11.0)
[2019-04-22 13:48] LABS: Anion Gap 5 (5-15); BUN 40 mg/dL (7-18); BUN/Creat Ratio 31.2 RATIO (10-20); Calcium,Total 9.2 mg/dL (8.5-10.1); Chloride 108 mmol/L (98-107); Creatinine, Serum 1.28 mg/dL (0.55-1.02); EST Glomerular Filtration Rate 43 mL/min (>60); Est Glom Filt Rate - Afr Amer 53 mL/min (>60); Estimated Creatinine Clearance 28.12 ml/min; Glucose 90 mg/dL (74-106); Potassium 4.2 mmol/L (3.5-5.1); Sodium Level 141 mmol/L (136-145)
[2019-04-22 13:50] LABS: Differential Indicated SCAN CRITERIA MET; POSITIVE COUNT NO; POSITIVE DIFFERENTIAL NO; POSITIVE MORPHOLOGY YES
[2019-04-22 13:56] LABS: Bacteria 0 SEEN /hpf (None Seen); Mucous, Urine 0 SEEN /hpf (<or=2+); Red Blood Cells-Urine 0 SEEN /hpf (0-5); Squamous Epithelial Cells - UA 0 SEEN /hpf (5-10); White Blood Cells 0 SEEN /hpf (0-5)
[2019-04-22 14:01] LABS: Color, Urine Yellow (Yellow); Glucose, Dipstick Normal (Normal); Ketone-Dipstick Negative (Negative); Leukocyte Esterase-Dipstick Negative /ul (Negative); Nitrite-Dipstick Negative (Negative); Occult Blood-Urine Negative /ul (Negative); Protein-Dipstick Negative (Negative); Urine Bilirubin Dipstick Negative (Negative); Urine Clarity Clear (Clear); Urine Urobilinogen Normal (Normal)
[2019-04-22 14:16] LABS: BNP,B-Type NATRIURETIC PEPTIDE 480.6 pg/mL (0-100)
[2019-04-22 14:40] LABS: Anisocytosis 2+; Differential Comment SCANNED; Hypochromasia 1+; Microcytosis 2+; Platelet Morphology LARGE
[2019-04-22 15:20] VITALS: BP 176/75; PULSE 98; RESP 21; O2SAT 95
[2019-04-22] MEDS: APIXABAN 5 MG TABLET 10 MG PO (15:20)
== END 2019-04-22 15:21 | disposition home or self-care (01) ==
LOC: ED 13:21
PROVIDERS: Emergency Provider Emergency Medicine; Family Provider Nurse Practitioner; PCP Nurse Practitioner
DX: J44.1 Chronic obstructive pulmonary disease with (acute) exacerbation (principal); Z87.891 Personal history of nicotine dependence; Z88.1 Allergy status to other antibiotic agents; Z88.8 Allergy status to other drugs, medicaments and biological substances; I48.0 Paroxysmal atrial fibrillation; Z95.2 Presence of prosthetic heart valve; R06.02 Shortness of breath
CPT/HCPCS: 71045; 80048; 81001; 83880; 84484; 85025; 93005; 94640; 99285; A4216

== ENCOUNTER → 2019-05-01 | Outpatient (CLI) | payer MEDICARE, MEDICAID, SELFPAY ==
[2019-04-22 12:37] VITALS: BMI 34.2
--- NOTE | 2019-05-01 13:56 | RAD_ITS ---
STUDY: X-RAY CHEST REASON FOR EXAM: Female, 74 years old. One-week history of bronchitis. TECHNIQUE: PA and lateral views of the chest. COMPARISON: Comparison is made with prior study dated April 22, 2019. FINDINGS: Stable pleural parenchymal changes at the right lung base. The previously seen focal infiltrate in the right upper lobe has almost completely cleared. Follow-up is recommended. Prior mitral valve replacement. Normal mediastinum and duarte. Normal visualized pulmonary arteries. There is atherosclerotic calcification of the aortic arch with tortuosity. There are diffuse degenerative changes of the visualized thoracic spine. Healed right fourth and fifth rib fractures. There is no demonstrated abnormality of the visualized soft tissue structures of the upper abdomen. RAD/Chest PA and Lateral IMPRESSION: Stable pleural parenchymal changes at the right lung base. Improved aeration of the right upper lobe infiltrate. Electronically Signed: Nimesh Rogers, at 14:44 EDT , Service support ,
== END | disposition home or self-care (01) ==
LOC: RAD 13:53
PROVIDERS: Family Provider Nurse Practitioner; PCP Nurse Practitioner; Referring Provider Nurse Practitioner; Visit Provider Nurse Practitioner
DX: J40 Bronchitis, not specified as acute or chronic (principal)
CPT/HCPCS: 71046

== ENCOUNTER 2019-09-25 22:31 | Inpatient (IN) | payer MEDICARE, MEDICAID, SELFPAY ==
[2019-05-11 12:25] VITALS: BMI 33.7
[2019-09-25 22:33] VITALS: BP 116/102; PULSE 149; RESP 20; TEMP 36.4; O2SAT 95; BMI 35.2
[2019-09-25 22:40] VITALS: PULSE 165; RESP 24; O2SAT 95
--- NOTE | 2019-09-25 22:50 | CT_ITS ---
STUDY: CT ABDOMEN AND PELVIS WITHOUT CONTRAST REASON FOR EXAM: Female, 74 years old. Abdominal pain RADIATION DOSAGE (If Supplied By Facility): CTDIvol = ( 21.29 ) mGy, DLP = ( 954.87 ) mGycm TECHNIQUE: Transaxial images were obtained from the dome of the diaphragm to the symphysis pubis without oral contrast, and without intravenous contrast. Sagittal and coronal images were reconstructed. Individualized dose optimization techniques were used for this CT. COMPARISON: None. FINDINGS: The visualized lung bases are unremarkable. The visualized portions of the heart are within normal limits. Normal liver. Normal gallbladder and extrahepatic biliary system. Normal spleen. Normal pancreas. Normal bilateral adrenal glands. There is a 1 cm hemorrhagic cyst in the RIGHT kidney. There is a 2 mm stone in the LEFT kidney. There is NO hydronephrosis or hydroureter. There are NO ureteral stones. Normal visualized stomach. Normal small intestine. There are multiple colonic diverticula consistent with diverticulosis. There is NO diverticulitis or colitis. There appears to have been an appendectomy. There is diffuse atherosclerotic calcification of the abdominal aorta, without a demonstrated aneurysm. Normal inferior vena cava. Normal retroperitoneum. Normal urinary bladder. There has been a hysterectomy. There is NO ascites, free air, abscess or adenopathy. Normal abdominal wall. There is RIGHT hip replacement hardware. CT/Abdomen/Pelvis without Cont IMPRESSION: There is a 1 cm hemorrhagic cyst in the RIGHT kidney. There is a 2 mm stone in the LEFT kidney. There is NO hydronephrosis or hydroureter. There are NO ureteral stones. There is NO bowel obstruction. There are multiple colonic diverticula consistent with diverticulosis. There is NO diverticulitis or colitis. There appears to have been an appendectomy. There has been a hysterectomy. There is NO ascites, free air, abscess or adenopathy. Electronically Signed: Crispin Bella MD at 0:10 EST , Service support ,
--- NOTE | 2019-09-25 22:50 | EKG12_ITS ---
Test Reason : DYSRHYTHMIA Blood Pressure : / mmHG Vent. Rate : 153 BPM Atrial Rate : 125 BPM P-R Int : 000 ms QRS Dur : 126 ms QT Int : 358 ms P-R-T Axes : 000 084 039 degrees QTc Int : 571 ms Atrial fibrillation with rapid ventricular response Right bundle branch block Abnormal ECG Confirmed by TARI MARTINEZ, CHIQUIS ([id number]), purchase request editor LULÚ COLLINS ([id number]) on 09/26/2019 11:07:21 AM Referred By: Brennan Doherty Confirmed By:CHIQUIS MARC MD
--- NOTE | 2019-09-25 22:53 | ED.DCSUM_ITS ---
History of Present Illness Chief Complaint: GI Bleed Informant: Patient Narrative: She stated for the last 3 days she has had nausea vomiting and diarrhea. She stated that her vomiting has increased today. She has been vomiting on the hour. She has had decreased oral intake significantly over the last 3 days. She takes daily aspirin. She is on no blood thinners. She stated that today it started to become black vomit with mucus. She has had bowel movements that have been diarrhea for the last 3 days as well. They have become black today as well. She has a history of colitis. She has had colitis related symptoms like this in the past. She denies a history of ulcerative colitis or Crohn's. She gets annual colonoscopies. Her last one was approximately 1 year ago. Denies any fevers or chills. She has chronic abdominal pain which she stated is not significantly different from her normal chronic pain. Surgical abdominal history is included appendectomy . Stated she has a history of paroxysmal atrial fibrillation. Patient stated she has had this intermittently for the last 3 years. She sees cardiology. She states she goes in and out and has been in and out over the last couple weeks at least a few times. She stated she felt weak this evening and called EMS to bring her in for further evaluation. She denies any chest pain or shortness of breath. She wears oxygen at night to sleep only. She has a history of COPD. - Past Medical History (1) Acute on chronic anemia Status: Acute (2) COPD exacerbation Status: Chronic (3) Chronic diastolic heart failure Status: Chronic (4) Claudication Status: Chronic (5) Essential (primary) hypertension Status: Chronic (6) H/O aortic valve replacement Status: Chronic Comment: TAVR: 23 mm Guillaume-Sapiens S3 valve 12/03/2016 (7) Hyperlipidemia Status: Chronic (8) Non-rheumatic aortic stenosis Status: Chronic (9) Right bundle branch block (RBBB) Status: Chronic (10) Secondary pulmonary arterial hypertension Status: Chronic Past Medical History - Allergies and Home Meds Allergies/Adverse Reactions: Allergies ciprofloxacin [From Cipro] Allergy (Verified 05/11/19 12:25) Rash ciprofloxacin HCl [From Cipro] Allergy (Verified 05/11/19 12:25) Rash gabapentin [From Neurontin] Allergy (Verified 05/11/19 12:25) Rash Prior records reviewed: Yes Past Medical History: - - See problem list Surgical History: appendectomy - Right hip replacement, back surgery, laminectomy, carpal tunnel surgery, right leg hematoma extraction, hysterectomy, rotator cuff repair, total hip arthroplasty, - - carpal tunnel, RLE DVT Smoking Status: Former smoker Alcohol: None Drugs: None - Family History Maternal Family History: Family History (Last Reviewed 05/11/19 @ 13:46 by Moose Killian MD) Mother Arthritis Diabetes Hormone deficiency CVA (cerebral vascular accident) Colon cancer Cancer Sister Bleeding disorder CVA (cerebral vascular accident) Colon cancer Daughter Cancer Seizures Father Diabetes Leukemia Grandmother Diabetes Unknown Asthma Heart disease Hypertension High cholesterol Thyroid disorder Osteoporosis Cancer Tuberculosis Family History: Reports: No pertinent history Review of Systems General: Denies: Chills, Fever, Sweats Eyes: Denies: Visual changes - bilaterally, Diplopia ENT: Denies: Rhinorrhea, Sore throat Cardiovascular: Denies: Chest pain, Palpitations Respiratory: Denies: Dyspnea, Cough, Dyspnea on exertion Gastrointestinal: Reports: Abdominal pain - Acute on chronic, Nausea, Vomiting, Diarrhea, Melena. Denies: Hematochezia Genitourinary: Denies: Dysuria, Hematuria, Frequency Musculoskeletal: Denies: Back pain, Extremity Pain Skin: Denies: Rash, Wounds Neurological: Reports: Weakness - Diffuse generalized. Denies: Headache, Numbness Physical Exam Vital Signs/Narrative: Vital Signs Temp Pulse Resp BP Pulse Ox 09/25/19 22:40 165 H 24 H 95 09/25/19 22:33 97.6 F L 149 H 20 H 116/102 H 95 General: Well nourished, Well developed, No Acute Distress Head: Normocephalic, Atraumatic Eyes: Perrl, EOMI ENT: Moist mucous membranes, No rhinorrhea Neck: Supple, Nontender Cardiovascular: Irregular, Tachycardia, Murmur - Aortic valve replacement systolic ejection murmur Respiratory: No distress, CTA bilaterally, Chest nontender Abdomen: Soft, Nondistended, Normal bowel sounds, Tender - Mild diffuse. Negative for: Guarding, Rebound tenderness Back: Nontender, Normal Inspection Extremities: Nontender, No edema Skin: Normal color, No rash Neurological: Alert, Oriented x3, Cranial nerves II-XII grossly intact, Normal Strength, Normal Sensation Psychological: Normal affect, Normal Mood Diagnostic/Tx/Re-eval Impressions Abdomen/Pelvis CT 09/25/19 22:50 IMPRESSION: There is a 1 cm hemorrhagic cyst in the RIGHT kidney. There is a 2 mm stone in the LEFT kidney. There is NO hydronephrosis or hydroureter. There are NO ureteral stones. There is NO bowel obstruction. There are multiple colonic diverticula consistent with diverticulosis. There is NO diverticulitis or colitis. There appears to have been an appendectomy. There has been a hysterectomy. There is NO ascites, free air, abscess or adenopathy. Electronically Signed: Crispin Bella MD at 0:10 EST , Service support , 09/25/19 22:50 Abdomen/Pelvis without Cont [CT] Stat 09/25/19 23:49 Stool Stool Occult Blood (SHANE) - Final Occult Blood Positive Laboratory Results 09/25/19 09/25/19 09/25/19 22:55 22:55 22:55 WBC Cancelled Corrected WBC Cancelled RBC Cancelled Hgb Cancelled Hct Cancelled MCV Cancelled MCH Cancelled MCHC Cancelled RDW Std Deviation Cancelled RDW Coeff of Jeff Cancelled Plt Count Cancelled MPV Cancelled Immature Gran % (Auto) Cancelled Neut % (Auto) Cancelled Lymph % (Auto) Cancelled Bea[place]gard % (Auto) Cancelled Eos % (Auto) Cancelled Baso % (Auto) Cancelled Absolute Neuts (auto) Cancelled Absolute Lymphs (auto) Cancelled Total Counted Cancelled Neutrophils % (Manual) Cancelled Band Neutrophils % Cancelled Lymphocytes % (Manual) Cancelled Monocytes % (Manual) Cancelled Eosinophils % (Manual) Cancelled Basophils % (Manual) Cancelled Metamyelocytes % Cancelled Myelocytes % Cancelled Promyelocytes % Cancelled Blast Cells % Cancelled Plasma Cell % (Manual) Cancelled Other Cells % Cancelled Nucleated RBC % Cancelled Nucleated RBCs/100 WBC Cancelled Differential Comment Cancelled Diff Path Review Cancelled Hypersegmented Neuts Cancelled Atypical Lymphocytes Cancelled Reactive Lymphocytes Cancelled Smudge Cells Cancelled Toxic Granulation Cancelled Toxic Vacuolation Cancelled Dohle Bodies Cancelled Usman Rods Cancelled Platelet Estimate Cancelled Plt Morphology Comment Cancelled RBC Morphology Cancelled Polychromasia Cancelled Hypochromasia Cancelled Poikilocytosis Cancelled Basophilic Stippling Cancelled Anisocytosis Cancelled Microcytosis Cancelled Macrocytosis Cancelled Spherocytes Cancelled Sickle Cells Cancelled Target Cells Cancelled Tear Drop Cells Cancelled Ovalocytes Cancelled Stomatocytes Cancelled Becerra-Redcrest Bodies Cancelled [place] Cells Cancelled Bite Cells Cancelled Crenated Cell Cancelled Acanthocytes (Spur) Cancelled Rouleaux Cancelled Schistocytes Cancelled PT 17.2 H INR 1.4 APTT 48.5 H Sodium 132 L Potassium 4.3 Chloride 99 Carbon Dioxide 17.0 L Anion Gap 16 H BUN 47 H Creatinine 3.61 H Estim Creat Clear Calc 9.97 Est GFR (MDRD) Af Amer 16 L Est GFR (MDRD) Non-Af 13 L BUN/Creatinine Ratio 13.0 Glucose 238 H Calcium 8.1 L Total Bilirubin 0.80 AST 116 H ALT 142 H Alkaline Phosphatase 77 Troponin I 1.110 H* Total Protein 6.3 L Albumin 2.5 L Globulin 3.8 Albumin/Globulin Ratio 0.7 L Lipase 64 L 09/25/19 23:57 WBC 15.8 H Corrected WBC RBC 4.41 Hgb 13.5 Hct 40.6 MCV 92.1 MCH 30.6 MCHC 33.3 RDW Std Deviation 52.1 H RDW Coeff of Jeff 15.2 H Plt Count TNP MPV Immature Gran % (Auto) 1.500 H Neut % (Auto) 85.9 H Lymph % (Auto) 4.1 L Bea[place]gard % (Auto) 5.0 Eos % (Auto) 3.2 Baso % (Auto) 0.3 Absolute Neuts (auto) 13.6 H Absolute Lymphs (auto) 0.64 L Total Counted Neutrophils % (Manual) Band Neutrophils % Lymphocytes % (Manual) Monocytes % (Manual) Eosinophils % (Manual) Basophils % (Manual) Metamyelocytes % Myelocytes % Promyelocytes % Blast Cells % Plasma Cell % (Manual) Other Cells % Nucleated RBC % 0 Nucleated RBCs/100 WBC Differential Comment SCANNED Diff Path Review Hypersegmented Neuts Atypical Lymphocytes Reactive Lymphocytes Smudge Cells Toxic Granulation Toxic Vacuolation Dohle Bodies Usman Rods Platelet Estimate ADEQUATE Plt Morphology Comment RBC Morphology Polychromasia Hypochromasia Poikilocytosis Basophilic Stippling Anisocytosis Microcytosis Macrocytosis Spherocytes Sickle Cells Target Cells Tear Drop Cells Ovalocytes Stomatocytes Becerra-Redcrest Bodies [place] Cells Bite Cells Crenated Cell Acanthocytes (Spur) Rouleaux Schistocytes PT INR APTT Sodium Potassium Chloride Carbon Dioxide Anion Gap BUN Creatinine Estim Creat Clear Calc Est GFR (MDRD) Af Amer Est GFR (MDRD) Non-Af BUN/Creatinine Ratio Glucose Calcium Total Bilirubin AST ALT Alkaline Phosphatase Troponin I Total Protein Albumin Globulin Albumin/Globulin Ratio Lipase - Medical Decision Making IV established and labs obtained. EKG and CT abdomen pelvis obtained. Patient given IV fluids, Zofran, morphine. Patient felt much better after treatment. Resting comfortably. CT abdomen pelvis was negative for acute abnormality. No evidence of colitis or diverticulitis. She does have a renal cyst. EKG shows atrial fibrillation at a rate of 153. No STEMI pattern. No ischemic findings noted. Lab work shows a normal hemoglobin count. Troponin came back elevated at 1.1. Patient has acute renal insufficiency with a metabolic acidosis likely secondary to her uremia secondary to severe dehydration. I did do a guaiac stool which showed brown-colored stool. It was guaiac positive. There was no melena or dark color to it. On reevaluation patient stated her color is more of a grayish dark. She does not think she noticed any blood in it. I suspect this is a mild occult positive finding. Patient was given 2 doses of Cardizem which brought her heart rate down into the 130s. She is resting comfortably. Given another dose of Zofran. She was fanta with cardiology Dr. Méndez. At this time she has A. fib with RVR with an elevation in her troponin consistent with non-STEMI. I feel this is from her significant dehydration due to her vomiting and diarrhea for the last 3 days with decreased oral intake. She will need hydration and rate control. At this time I do not suspect the patient has a GI bleed. Discussing with cardiology we decided to start her on heparin. This could be stopped quickly if she does develop a GI bleed. The hospitalist and the patient will be admitted. She will also be started on a Cardizem drip. - Critical Care Time Critical care time (excluding procedures): 30-74 minutes ED Disposition - Plan for ED Patient: Disposition: Acute Care [facility] Diagnosis: Atrial fibrillation with RVR, Non-STEMI (non-ST elevated myocardial infarction), Acute renal failure, Vomiting and diarrhea, Severe dehydration
[2019-09-25] MEDS: Morphine 4 MG/ML Syringe IV (23:06)
[2019-09-25] MEDS: Ondansetron 4 MG/2 ML Vial IV (23:07)
[2019-09-25 23:14] LABS: International Normalized Ratio 1.4; Prothrombin Time (Protime)PT. 17.2 SECONDS (11.7-14.9)
[2019-09-25 23:15] LABS: Partial Thromboplast Time 48.5 Seconds (24.1-36.2)
[2019-09-25] MEDS: dilTIAZem 25 MG/5 ML Vial 20 MG IV BOLUS (23:20)
[2019-09-25 23:21] VITALS: BP 123/110; PULSE 153; RESP 17; O2SAT 88
[2019-09-25 23:32] LABS: ALB/GLOB Ratio 0.7 RATIO (0.9-2.4); AST(SGOT) 116 U/L (15-37); Alanine Aminotransfer ALT/SGPT 142 U/L (13-56); Albumin, Serum 2.5 g/dL (3.2-5.0); Alkaline Phosphatase 77 U/L (45-117); Anion Gap 16 (5-15); BUN 47 mg/dL (7-18); Calcium,Total 8.1 mg/dL (8.5-10.1); Chloride 99 mmol/L (98-107); Creatinine, Serum 3.61 mg/dL (0.55-1.02); EST Glomerular Filtration Rate 13 mL/min (>60); Est Glom Filt Rate - Afr Amer 16 mL/min (>60); Estimated Creatinine Clearance 9.97 ml/min; Globulin 3.8 g/dL (2.2-4.2); Glucose 238 mg/dL (74-106); Lipase 64 U/L (73-393); Potassium 4.3 mmol/L (3.5-5.1); Protein, Total 6.3 g/dL (6.4-8.2); Sodium Level 132 mmol/L (136-145)
[2019-09-26] VITALS (44 sets, daily range): BP systolic 84–163; BP diastolic 51–143; PULSE 67–148; RESP 12–50; TEMP 36.4–37; O2SAT 94–100; BMI 34.1; BMI 34.0
[2019-09-26 00:04] LABS: Absolute Lymphocyte Count 0.64 X10^3/uL (0.83-4.51); Absolute Neutrophil Count 13.6 X10^3/uL (2.0-7.7); Basophil# 0.05 X10^3/uL; Basophil% 0.3 % (0-1); Eosinophils% 3.2 % (0-5); Hematocrit 40.6 % (37-47); Hemoglobin 13.5 g/dL (12.0-15.0); Lymphocyte # 0.64 X10^3/ul (4.0); Lymphocyte % 4.1 % (19-41); Mean Corp Hgb Conc 33.3 g/dL (32-36); Mean Corpuscular Hgb 30.6 pg (27.0-32.0); Mean Corpuscular Volume 92.1 fL (81-99); Monocyte# 0.79 X10^3/uL; NRBC Flagged by Analyzer 0 % (0-5); Neutrophil # 13.57 X10^3/uL (2.7-7.7); Neutrophil % 85.9 % (47-70); POSITIVE COUNT YES; POSITIVE MORPHOLOGY YES; RBC Distribution Width CV 15.2 % (11.6-14.6); RBC Distribution Width SD 52.1 fl (35.1-43.9); Red Blood Count 4.41 M/mm3 (4.2-5.4); White Blood Count 15.8 K/mm3 (4.4-11.0)
[2019-09-26 00:05] LABS: Differential Indicated SCAN CRITERIA MET
[2019-09-26] MEDS: 0.9% Normal Saline 1,000 ML 1000 ML IV (00:07)
[2019-09-26] MEDS: dilTIAZem 25 MG/5 ML Vial 10 MG IV BOLUS (00:07)
[2019-09-26 00:36] LABS: Differential Comment SCANNED
--- NOTE | 2019-09-26 00:46 | PCM.HP.STD ---
Problem List (1) Atrial fibrillation with RVR Status: Acute (2) Non-STEMI (non-ST elevated myocardial infarction) Status: Acute (3) Acute renal failure Status: Acute (4) Vomiting and diarrhea Status: Acute (5) Severe dehydration Status: Acute (6) Right bundle branch block (RBBB) Status: Chronic (7) COPD exacerbation Status: Inactive (8) Acute on chronic anemia Status: Inactive (9) Claudication Status: Inactive (10) Chronic diastolic heart failure Status: Chronic (11) Non-rheumatic aortic stenosis Status: Chronic (12) Hyperlipidemia Status: Chronic (13) Essential (primary) hypertension Status: Chronic (14) Secondary pulmonary arterial hypertension Status: Chronic (15) H/O aortic valve replacement Status: Chronic Comment: TAVR: 23 mm Guillaume-Sapiens S3 valve 12/03/2016 History of Present Illness Date of Admission: 09/26/19 Chief Complaint: weakness The patient is a 74 year old F COPD; and hypothyroidism who presented to emergency department with nausea; vomiting and diarrhea x2 days. Because patient began to feel weak he came to emergency department. She reported that her stools looked black and she had coffee ground emesis. Of note patient is on home iron supplementation. At the emergency department her guaiac was positive. Also,at the emergency department patient was found to be in A. fib with rapid ventricular response. Also her creatinine was severely elevated above her baseline. Further, troponin was severely elevated. Patient received Cardizem bolus x2; and IV fluids and she continued to be in A. fib with rapid ventricular response. The case was discussed with government property inspector and patient was started on heparin drip and Cardizem drip. Patient reports a strong family history of colon cancer. Patient gets colonoscopy yearly. Her last colonoscopy is almost a year ago. She reported that at that time polyps were taken out and an ulcer was also taken out. She reports a history of colitis. Past Medical History Past Medical History (Chronic Problems): Chronic Problems (Last Reviewed 09/26/19 @ 04:50 by Brennan Doherty MD) Right bundle branch block (RBBB) (Chronic) Chronic diastolic heart failure (Chronic) Non-rheumatic aortic stenosis (Chronic) Hyperlipidemia (Chronic) Essential (primary) hypertension (Chronic) Secondary pulmonary arterial hypertension (Chronic) H/O aortic valve replacement (Chronic 12/03/16) TAVR: 23 mm Guillaume-Sapiens S3 valve 12/03/2016 Medical History: Medical History (Last Reviewed 09/26/19 @ 04:54 by Brennan Doherty MD) Right bundle branch block (RBBB) (Chronic) I45.10 Chronic diastolic heart failure (Chronic) I50.32 Non-rheumatic aortic stenosis (Chronic) I35.0 Hyperlipidemia (Chronic) E78.5 Essential (primary) hypertension (Chronic) I10 Secondary pulmonary arterial hypertension (Chronic) I27.21 Type 2 diabetes mellitus E11.9 Anemia D64.9 Anxiety F41.9 Arthritis M19.90 Asthma J45.909 Back problem M53.9 Breast lump N63.0 COPD (chronic obstructive pulmonary disease) J44.9 Carotid artery stenosis I65.29 Carpal tunnel syndrome G56.00 Cataracts, bilateral H26.9 Depression F32.9 Fibromyalgia M79.7 Fibromyalgia M79.7 GERD (gastroesophageal reflux disease) K21.9 H/O transfusion of whole blood Z92.89 H/O: hysterectomy Z98.890, Z90.710 Headache R51 Hormone deficiency E34.8 Hypothyroidism E03.9 IBS (irritable bowel syndrome) K58.9 Kidney disease N28.9 MTHFR mutation E72.12 Neuropathy G62.9 Obesity E66.9 Osteoarthritis M19.90 Osteoporosis M81.0 Pneumonia J18.9 RLS (restless legs syndrome) G25.81 Skin cancer C44.90 Thyroid disease E07.9 Tuberculosis A15.9 UTI (urinary tract infection) N39.0 blood clots Bone fracture T14.8XXA Seasonal allergies J30.2 Allergies ciprofloxacin [From Cipro] Allergy (Verified 05/11/19 12:25) Rash ciprofloxacin HCl [From Cipro] Allergy (Verified 05/11/19 12:25) Rash gabapentin [From Neurontin] Allergy (Verified 05/11/19 12:25) Rash Home Medications: Ambulatory Orders Medication Instructions Recorded Albuterol Aerosols [Ventolin 2.5 mg INHALATION Q4H PRN PRN 09/26/19 Aerosols] Albuterol IH (ProAir) [Proair Hfa 2 puff INHALATION Q6H PRN PRN 09/26/19 (SP)Vent Pts] Aspirin [Aspir 81] 81 mg PO DAILY 09/26/19 Calcium Carbonate/Vitamin D3 1 ea PO TID 09/26/19 [Calcium 500-Vit D3 200 Tablet] Cyanocobalamin (Vitamin B-12) 1,000 mcg PO DAILY 09/26/19 [Vitamin B-12] Diclofenac Sodium [Voltaren] 1 applic TP PRN PRN 09/26/19 Diltiazem CD [Cardizem CD] 240 mg PO DAILY 09/26/19 Fesoterodine Fumarate [Toviaz] 8 mg PO DAILY 09/26/19 Fluticasone 0.05% [Flonase Nasal 2 spray NASAL DAILY 09/26/19 [place]] Fluticasone/Salmeterol [Advair Hfa 2 puff INHALATION BID 09/26/19 115-21 Mcg Inhaler] Furosemide [Lasix] 40 mg PO BIDLX 09/26/19 Insulin Aspart [Novolog Flexpen units SUBCUT TIDCM 09/26/19 ([facility])] Insulin Detemir [Levemir] 50 unit SQ QHS 09/26/19 Iron Polysaccharide Complex 150 mg PO BID 09/26/19 [Ferrex 150] L.acidoph,Paracasei, B.lactis 1 ea PO DAILY 09/26/19 [Probiotic] Linagliptin [Tradjenta] 5 mg PO DAILY 09/26/19 Methimazole 5 mg PO DAILY 09/26/19 Metoprolol Succinate [Toprol Xl] 25 mg PO BID 09/26/19 Nitroglycerin 0.4 mg SL PRN PRN 09/26/19 Nystatin [Nyamyc] 30 gm TP BID 09/26/19 Omeprazole 20 mg PO DAILY 09/26/19 Oxycodone HCl/Acetaminophen 1 tab PO Q8H PRN PRN 09/26/19 [Percocet 10-325 mg Tablet] Paroxetine HCl [Paxil] 40 mg PO DAILY 09/26/19 Potassium Chloride [Klor-Con 10] 20 meq PO DAILY 09/26/19 Roflumilast [Daliresp] 500 mcg PO DAILY 09/26/19 Ropinirole HCl 2 mg PO QHS 09/26/19 Suvorexant [Belsomra] 20 mg PO QHS 09/26/19 Tiotropium Marydel [Spiriva] 18 mcg IH DAILY 09/26/19 Tizanidine HCl [Zanaflex] 4 mg PO BID 09/26/19 Surgical History: Surgical History (Last Reviewed 09/26/19 @ 04:50 by Brennan Doherty MD) H/O aortic valve replacement (Chronic) Onset Date: 12/03/16 Z95.2 TAVR: 23 mm Guillaume-Sapiens S3 valve 12/03/2016 H/O laminectomy Z98.890 History of left heart catheterization Onset Date: 09/03/16 Z98.890 History of tympanoplasty Z98.890 Hx of melanoma excision Z98.890, Z85.820 1996 Hx of removal of cyst Z98.890 Ganglion cyst right wrist Hx of rotator cuff surgery Z98.890 JAIME S/P hip replacement Z96.649 S/p bilateral carpal tunnel release Z98.890 Surgical History: appendectomy - Right hip replacement, back surgery, laminectomy, carpal tunnel surgery, right leg hematoma extraction, hysterectomy, rotator cuff repair, total hip arthroplasty, - - carpal tunnel, RLE DVT Psychiatric History: Anxiety, Depression CONSULTING PROPERTY MANAGER History: No pertinent CONSULTING PROPERTY MANAGER history Lives: Alone Smoking Status: Former smoker Alcohol: None Drugs: None - *Family History Maternal Family History: Family History (Last Reviewed 09/26/19 @ 04:54 by Brennan Doherty MD) Mother Arthritis Diabetes Hormone deficiency CVA (cerebral vascular accident) Colon cancer Cancer Sister Bleeding disorder CVA (cerebral vascular accident) Colon cancer Daughter Cancer Seizures Father Diabetes Leukemia Grandmother Diabetes Unknown Asthma Heart disease Hypertension High cholesterol Thyroid disorder Osteoporosis Cancer Tuberculosis Review of Systems Constitutional: Denies: Chills, Fever, Weight Change HEENT: Denies: Head Aches, Sinus Congestion, Sinus Drainage Cardiovascular: Denies: Chest Pain, Palpitations Respiratory: Reports: Shortness of Breath - chronic. Denies: Cough, Shortness of breath at rest, Sputum production Gastrointestinal: Reports: Abdominal Pain, Diarrhea, Nausea, Melena, Vomiting Genitourinary: Reports: Dysuria Musculoskeletal: Denies: Joint Pain, Joint Tenderness Skin: Denies: Rash, Wounds Neurological: Denies: Numbness, Tingling, Focal weakness Psychiatric: Denies: Anxiety, Depression, Homicidal Ideations, Suicidal Ideations Hematologic/ Lymphatic: Denies: Easy Bruising, Easy Bleeding VTE Information - Inpt Only VTE Present on Admission: No VTE Mechan Device Prophylaxis: SCD's VTE Pharm Prophylaxis ordered?: No Patient Problems: Active and Suspected Problems (Last Reviewed 09/26/19 @ 04:50 by Brennan Doherty MD) Atrial fibrillation with RVR (Acute) Non-STEMI (non-ST elevated myocardial infarction) (Acute) Acute renal failure (Acute) Vomiting and diarrhea (Acute) Severe dehydration (Acute) - Physical Exam Vitals/I&O's: Vital Signs Temp Pulse Resp BP Pulse Ox 97.6 F L 148 H 26 H 104/79 95 09/25/19 22:33 09/26/19 00:07 09/26/19 00:07 09/26/19 00:07 09/26/19 00:07 Oxygen Flow Rate (L/min) 3 Oxygen Delivery Method Nasal Cannula Weight: 81.8 kg Body Mass Index (BMI) 35.2 Finger Stick Blood Glucose 112 Intake and Output for Last 24 Hours 09/24/19 09/25/19 09/26/19 23:59 23:59 23:59 Intake Total 500 / 500 Balance 500 / 500 General: Alert, Oriented x3, Cooperative HEENT: Atraumatic, PERRLA, EOMI, Normocephalic Neck: Supple, No JVD, Negative Carotid Bruits Lungs: Clear to auscultation, Normal air movement, Tachypneic Cardiovascular: Normal S1, Normal S2, No murmurs, Irregular Rate, Tachycardic Abdomen: Bowel Sounds Present, Soft, Non Tender Extremities: No edema, Capillary Refill Less than 3 Seconds Skin: No rashes, No breakdown Musculoskeletal: No Tenderness to Palpation of Joints or Extremities Neurological: Cranial nerves II-XII grossly intact Psych/Mental Status: Normal Affect, Appropriate Microbiology Past 72 Hours 09/25/19 23:49 Stool Stool Occult Blood (SHANE) - Final Occult Blood Positive Laboratory Results 09/25/19 22:55: WBC Cancelled, Corrected WBC Cancelled, RBC Cancelled, Hgb Cancelled, Hct Cancelled, MCV Cancelled, MCH Cancelled, MCHC Cancelled, RDW Std Deviation Cancelled, RDW Coeff of Jeff Cancelled, Plt Count Cancelled, MPV Cancelled, Immature Gran % (Auto) Cancelled, Neut % (Auto) Cancelled, Lymph % (Auto) Cancelled, Prowers % (Auto) Cancelled, Eos % (Auto) Cancelled, Baso % (Auto) Cancelled, Absolute Neuts (auto) Cancelled, Absolute Lymphs (auto) Cancelled, Total Counted Cancelled, Neutrophils % (Manual) Cancelled, Band Neutrophils % Cancelled, Lymphocytes % (Manual) Cancelled, Monocytes % (Manual) Cancelled, Eosinophils % (Manual) Cancelled, Basophils % (Manual) Cancelled, Metamyelocytes % Cancelled, Myelocytes % Cancelled, Promyelocytes % Cancelled, Blast Cells % Cancelled, Plasma Cell % (Manual) Cancelled, Other Cells % Cancelled, Nucleated RBC % Cancelled, Nucleated RBCs/100 WBC Cancelled, Differential Comment Cancelled, Diff Path Review Cancelled, Hypersegmented Neuts Cancelled, Atypical Lymphocytes Cancelled, Reactive Lymphocytes Cancelled, Smudge Cells Cancelled, Toxic Granulation Cancelled, Toxic Vacuolation Cancelled, Dohle Bodies Cancelled, Usman Rods Cancelled, Platelet Estimate Cancelled, Plt Morphology Comment Cancelled, RBC Morphology Cancelled, Polychromasia Cancelled, Hypochromasia Cancelled, Poikilocytosis Cancelled, Basophilic Stippling Cancelled, Anisocytosis Cancelled, Microcytosis Cancelled, Macrocytosis Cancelled, Spherocytes Cancelled, Sickle Cells Cancelled, Target Cells Cancelled, Tear Drop Cells Cancelled, Ovalocytes Cancelled, Stomatocytes Cancelled, Becerra-[place] Bodies Cancelled, [place] Cells Cancelled, Bite Cells Cancelled, Crenated Cell Cancelled, Acanthocytes (Spur) Cancelled, Rouleaux Cancelled, Schistocytes Cancelled 09/25/19 22:55: PT 17.2 H, INR 1.4, APTT 48.5 H 09/25/19 22:55: Sodium 132 L, Potassium 4.3, Chloride 99, Carbon Dioxide 17.0 L, Anion Gap 16 H, BUN 47 H, Creatinine 3.61 H, Estim Creat Clear Calc 9.97, Est GFR (MDRD) Af Amer 16 L, Est GFR (MDRD) Non-Af 13 L, BUN/Creatinine Ratio 13.0, Glucose 238 H, Calcium 8.1 L, Total Bilirubin 0.80, AST 116 H, ALT 142 H, Alkaline Phosphatase 77, Troponin I 1.110 H*, Total Protein 6.3 L, Albumin 2.5 L, Globulin 3.8, Albumin/Globulin Ratio 0.7 L, Lipase 64 L 09/25/19 23:57: WBC 15.8 H, RBC 4.41, Hgb 13.5, Hct 40.6, MCV 92.1, MCH 30.6, MCHC 33.3, RDW Std Deviation 52.1 H, RDW Coeff of Jeff 15.2 H, Plt Count TNP, Immature Gran % (Auto) 1.500 H, Neut % (Auto) 85.9 H, Lymph % (Auto) 4.1 L, Prowers % (Auto) 5.0, Eos % (Auto) 3.2, Baso % (Auto) 0.3, Absolute Neuts (auto) 13.6 H, Absolute Lymphs (auto) 0.64 L, Nucleated RBC % 0, Differential Comment SCANNED, Platelet Estimate ADEQUATE Current Medications Sodium Chloride () 1,000 mls @ 1,000 mls/hr IV .Q1H ONE Stop: 09/26/19 00:49 Last Admin: 09/26/19 00:07 Dose: 1,000 mls/hr Documented by: Assessment/Plan All Active Problems (Last Reviewed 09/26/19 @ 04:50 by Brennan Doherty MD) Atrial fibrillation with RVR (Acute) Non-STEMI (non-ST elevated myocardial infarction) (Acute) Acute renal failure (Acute) Vomiting and diarrhea (Acute) Severe dehydration (Acute) Chronic hypoxemic respiratory failure (Resolved) Colitis (Resolved) GI (gastrointestinal bleed) (Resolved) History of DVT (deep vein thrombosis) (Resolved) Hypomagnesemia (Resolved) Hypothyroidism (Resolved) Iron deficiency anemia (Resolved) Severe aortic stenosis (Resolved) The patient is a 74 year old F COPD; and hypothyroidism who presented to emergency department with nausea vomiting and diarrhea x2 days coffee ground emesis; and melena; positive occult stools and found to have Afib with RVR; and elevated troponin consistent with NSTEMI. NSTEMI Troponin was 1.110 at the ED. EKG showed A. fib with RVR. Case was discussed with government property inspector and patient was started on heparin drip. Heparin drip continued. Trend troponin Consult government property inspector inpatient. MARILEE On presentation her creatinine was 3.61. Review of old records shows a creatinine baseline around 1.3. Receive IV hydration in the emergency department. Continue IV hydration. Trend BMP. Avoid nephrotoxics Acute Gastroenteritis Likely dysentery Patient with nausea vomiting and diarrhea and positive occult stools. Hold home Prilosec. Will put on Protonix 40 mg IV every 12 hours. Trend H&H. IV hydration Keep n.p.o. General surgery consult. Of note patient reports a strong family history of colon cancer. Her mother from colon cancer. Her daughter of 11-1/2 years ago from colon cancer and other medical conditions. Reportedly she gets GI scope every year. Her last scope was a year ago. At that time polyps were removed. She reported as also an ulcer was taken out. Trend HH A. fib with RVR IV hydration as above. Will check a TSH and magnesium level. Potassium level is normal. Of note patient has a history of hypothyroidism and on methimazole. At this time patient is n.p.o. for now. COPD Patient uses nightly oxygen of 3 L nasal cannula. Does not appear to be in exacerbation. Home breathing treatments continued. Diabetes mellitus with hyperglycemia On presentation patient had hyperglycemia. Will de-escalate home long-acting insulin since patient is n.p.o. at this time. Accu-Chek every 4 hours. Correction scale insulin every 4 hours as needed. DVT prophylaxis SCD. Code Visit Inpatient E&M: 72583 Init Hosp L3
[2019-09-26] MEDS: Ondansetron 4 MG/2 ML Vial IV ×2 (00:52→09:10)
[2019-09-26] MEDS: HEPARIN/D5w 25,000 UNITS 25,000 UNITS/250 ML IV.SOLN. 12 UNITS IV (01:49)
[2019-09-26 01:52] LABS: Platelet Count 61 K/mm3 (150-450)
[2019-09-26 03:17] LABS: Hematocrit 38.5 % (37-47); Hemoglobin 13.2 g/dL (12.0-15.0); POSITIVE COUNT YES
[2019-09-26 03:34] LABS: Magnesium 1.6 mg/dL (1.6-2.6); Thyroid Stim Hormone (TSH) 0.42 uIU/mL (0.358-3.74)
[2019-09-26] MEDS: 0.9% Normal Saline 1,000 ML 100 ML IV ×2 (03:59→13:23)
[2019-09-26 04:22] LABS: Anion Gap 15 (5-15); BUN 48 mg/dL (7-18); BUN/Creat Ratio 14.9 RATIO (10-20); Calcium,Total 6.7 mg/dL (8.5-10.1); Chloride 106 mmol/L (98-107); Creatinine, Serum 3.22 mg/dL (0.55-1.02); EST Glomerular Filtration Rate 15 mL/min (>60); Est Glom Filt Rate - Afr Amer 18 mL/min (>60); Estimated Creatinine Clearance 11.18 ml/min; Glucose 166 mg/dL (74-106); Potassium 4.8 mmol/L (3.5-5.1); Sodium Level 136 mmol/L (136-145)
[2019-09-26 04:52] LABS: Mucous, Urine 0 SEEN /hpf (<or=2+)
[2019-09-26 04:56] LABS: Bedside Glucose 158 mg/dL (70-110)
[2019-09-26 05:07] LABS: Color, Urine Yellow (Yellow); Glucose, Dipstick Normal (Normal); Ketone-Dipstick 5 mg/dl (Negative); Leukocyte Esterase-Dipstick 500 /ul (Negative); Nitrite-Dipstick Negative (Negative); Occult Blood-Urine 250 /ul (Negative); Protein-Dipstick 100 mg/dl (Negative); Urine Clarity Cloudy (Clear); Urine Urobilinogen 1 mg/dl (Normal)
[2019-09-26 05:10] LABS: Urine Bilirubin Dipstick 1 mg/dL (Negative)
[2019-09-26 05:25] LABS: Partial Thromboplast Time 99.2 Seconds (24.1-36.2)
[2019-09-26 05:29] LABS: Bacteria 2+ /hpf (None Seen); Red Blood Cells-Urine 25-50 SEEN /hpf (0-5); Squamous Epithelial Cells - UA 0-5 SEEN /hpf (5-10); White Blood Cells 50-100 SEEN /hpf (0-5)
[2019-09-26 05:30] LABS: Coarse Granular Cast 0-5 SEEN /lpf (0-5 /lpf)
[2019-09-26] MEDS: Acetaminophen 325 MG Tablet 650 MG PO ×2 (05:42→14:45)
[2019-09-26] MEDS: Insulin Lispro 100 UNIT/ML INSULN.PEN SC ×3 (06:54→22:39)
[2019-09-26 06:55] LABS: Bedside Glucose 169 mg/dL (70-110)
--- NOTE | 2019-09-26 07:34 | ECHOD_ITS ---
Reason For Study: Afib/Flutter Procedure This was a 2D Doppler, Color Flow transthoracic echocardiogram. Exam performed portable in patient room. Left Ventricle Normal size and thickness. The estimated ejection fraction is 65 %. Unable to assess diastolic dysfunction due to arrhythmia. No regional wall motion abnormalities noted. Right Ventricle Normal size and thickness. Normal systolic function. Atria The left atrium is moderately enlarged. Normal right atrium. Normal atrial septum. Mitral Valve Mild diffuse mitral valve thickening. Mild (1+) mitral valve insufficiency. Tricuspid Valve Normal tricuspid valve. Mild (1+) tricuspid valve insufficiency. Right ventricular systolic pressure estimated to be 29 mmHg. Aortic Valve Peak aortic valve gradient 16 mmHg. Mean aortic valve gradient 7 mmHg. Stable appearing bioprosthetic aortic valve apparatus. Pulmonic Valve The pulmonic valve is not well visualized. Great Vessels Normal aortic root. Normal arch. The inferior vena cava is dilated. Inferior vena cava collapse with sniff. Pericardium/Pleural No pericardial effusion. MMode/2D Measurements & Calculations LVIDd: 4.9 cm IVSd: 1.2 cm LVOT diam: 2.0 cm LVIDs: 3.6 cm LVPWd: 1.1 cm LVOT area: 3.1 cm2 FS: 26.1 % LA dimension: 4.2 cm LAV(MOD-bp): 85.8 ml LA A4 area: 25.2 cm2 LAV(MOD-bp) Indexed: 48.2 ml/m2 LAV(MOD-sp2): 83.9 ml LAV(MOD-sp4): 83.6 ml RA A4 area: 14.5 cm2 Time Measurements MV dec time: 0.17 sec Doppler Measurements & Calculations MV E max chandra: 132.7 cm/sec Lat Peak E' Chandra: 8.2 cm/sec Ao V2 max: 198.0 cm/sec MV A max chandra: 36.1 cm/sec E/E' lat: 16.2 Ao max P.9 mmHg MV E/A: 3.7 Ao V2 mean: 118.9 cm/sec Ao mean P.9 mmHg Ao V2 VTI: 24.9 cm SHAWNA(I,D): 1.9 cm2 SHAWNA(V,D): 1.9 cm2 LV V1 max: 124.4 cm/sec MR max chandra: 445.4 cm/sec SV(LVOT): 47.5 ml LV V1 max P.2 mmHg MR max P.4 mmHg LV V1 mean P.0 mmHg MR mean chandra: 346.9 cm/sec LV V1 mean: 77.9 cm/sec MR mean P.0 mmHg LV V1 VTI: 15.4 cm MR VTI: 109.6 cm PA V2 max: 83.8 cm/sec Interpretation Summary The estimated ejection fraction is 65 %. Unable to assess diastolic dysfunction due to arrhythmia. The left atrium is moderately enlarged. Mild (1+) mitral valve insufficiency. Mild (1+) tricuspid valve insufficiency. Right ventricular systolic pressure estimated to be 29 mmHg. Stable appearing and normal functioniing bioprosthetic aortic valve apparatus. Compared to echo report dated 05/03/2017, LV function has remained the same, and RVSP has improved from 57 to 29 mm Hg. Pt appears to be in atrial fibrillation on today's study. The study was technically difficult. Ordering Physician: Darwin Méndez Referring Physician: Brennan Doherty Performed By: Milton Vela RCS
[2019-09-26] MEDS: Metoprolol(XL)Succ 25 MG Tablet PO ×2 (08:09→22:56)
[2019-09-26 09:03] LABS: Hematocrit 37.4 % (37-47); Hemoglobin 12.8 g/dL (12.0-15.0); POSITIVE COUNT YES
--- NOTE | 2019-09-26 09:42 | PCM.CONS.GEN ---
Problem List (1) Heme positive stool Status: Acute Reason for Consult Date of Consultation: 09/26/19 Reason for Consultation: Melena. Nausea, vomiting. History of Present Illness: The patient is a 74 year old F who presented with nausea, vomiting and diarrhea since Tuesday. She denies being around any sick contacts. She notes she was vomiting dark, stringy emesis. She thought this may have blood in it, however not 100% sure. Patient notes her stools have been dark and coffee ground in nature. She denies taking iron supplement or Pepto-Bismol. She notes chest pressure when she came to the ED. She continues to note nausea. She also has a history of A Fib and is on aspirin daily. She also had EKG changes in the ED consistent with NSTEMI. Cardiology was consulted and patient was placed on a Heparin drip. Patient states she has scopes every year. She has an upper and lower scope last year by Dr. Nixon in [place]. She notes she is due for a colonoscopy at this time. Patient notes history of polyps and ulcer. She is on omeprazole daily. Patient states a significant family history of colon cancer. Her mother from colon cancer. She notes her daughter at the age of 40 from colon cancer. She notes her other daughter has IBS. She is unsure if she has ulcerative colitis or Crohn's. She is unsure of her siblings if they may have had colon cancer. Patient notes history of blood clots in her legs. She denies previous cardiac history, stents, M.I. However looking back through notes, patient has had an aortic valve replacement [id number]. She notes sleeping with CPAP at night. Patient continues to have nausea and chest pressure. She was found to have heme positive stool. Past Medical History Past Medical History (Chronic Problems): Chronic Problems (Last Reviewed 09/26/19 @ 11:18 by Cora Guzman PA-C) Right bundle branch block (RBBB) (Chronic) Chronic diastolic heart failure (Chronic) Non-rheumatic aortic stenosis (Chronic) Hyperlipidemia (Chronic) Essential (primary) hypertension (Chronic) Secondary pulmonary arterial hypertension (Chronic) H/O aortic valve replacement (Chronic 12/03/16) TAVR: 23 mm Guillaume-Sapiens S3 valve 12/03/2016 Medical History: Medical History (Last Reviewed 09/26/19 @ 11:18 by Cora Guzman PA-C) Right bundle branch block (RBBB) (Chronic) I45.10 Chronic diastolic heart failure (Chronic) I50.32 Non-rheumatic aortic stenosis (Chronic) I35.0 Hyperlipidemia (Chronic) E78.5 Essential (primary) hypertension (Chronic) I10 Secondary pulmonary arterial hypertension (Chronic) I27.21 Type 2 diabetes mellitus E11.9 Anemia D64.9 Anxiety F41.9 Arthritis M19.90 Asthma J45.909 Back problem M53.9 Breast lump N63.0 COPD (chronic obstructive pulmonary disease) J44.9 Carotid artery stenosis I65.29 Carpal tunnel syndrome G56.00 Cataracts, bilateral H26.9 Depression F32.9 Fibromyalgia M79.7 Fibromyalgia M79.7 GERD (gastroesophageal reflux disease) K21.9 H/O transfusion of whole blood Z92.89 H/O: hysterectomy Z98.890, Z90.710 Headache R51 Hormone deficiency E34.8 Hypothyroidism E03.9 IBS (irritable bowel syndrome) K58.9 Kidney disease N28.9 MTHFR mutation E72.12 Neuropathy G62.9 Obesity E66.9 Osteoarthritis M19.90 Osteoporosis M81.0 Pneumonia J18.9 RLS (restless legs syndrome) G25.81 Skin cancer C44.90 Thyroid disease E07.9 Tuberculosis A15.9 UTI (urinary tract infection) N39.0 blood clots Bone fracture T14.8XXA Seasonal allergies J30.2 Allergies ciprofloxacin [From Cipro] Allergy (Verified 05/11/19 12:25) Rash ciprofloxacin HCl [From Cipro] Allergy (Verified 05/11/19 12:25) Rash gabapentin [From Neurontin] Allergy (Verified 05/11/19 12:25) Rash Home Medications: Ambulatory Orders Medication Instructions Recorded Albuterol Aerosols [Ventolin 2.5 mg INHALATION Q4H PRN PRN 09/26/19 Aerosols] Albuterol IH (ProAir) [Proair Hfa 2 puff INHALATION Q6H PRN PRN 09/26/19 (SP)Vent Pts] Aspirin [Aspir 81] 81 mg PO DAILY 09/26/19 Calcium Carbonate/Vitamin D3 1 ea PO TID 09/26/19 [Calcium 500-Vit D3 200 Tablet] Cyanocobalamin (Vitamin B-12) 1,000 mcg PO DAILY 09/26/19 [Vitamin B-12] Diclofenac Sodium [Voltaren] 1 applic TP PRN PRN 09/26/19 Diltiazem CD [Cardizem CD] 240 mg PO DAILY 09/26/19 Fesoterodine Fumarate [Toviaz] 8 mg PO DAILY 09/26/19 Fluticasone 0.05% [Flonase Nasal 2 spray NASAL DAILY 09/26/19 [place]] Fluticasone/Salmeterol [Advair Hfa 2 puff INHALATION BID 09/26/19 115-21 Mcg Inhaler] Furosemide [Lasix] 40 mg PO BIDLX 09/26/19 Insulin Aspart [Novolog Flexpen units SUBCUT TIDCM 09/26/19 ([facility])] Insulin Detemir [Levemir] 50 unit SQ QHS 09/26/19 Iron Polysaccharide Complex 150 mg PO BID 09/26/19 [Ferrex 150] L.acidoph,Paracasei, B.lactis 1 ea PO DAILY 09/26/19 [Probiotic] Linagliptin [Tradjenta] 5 mg PO DAILY 09/26/19 Methimazole 5 mg PO DAILY 09/26/19 Metoprolol Succinate [Toprol Xl] 25 mg PO BID 09/26/19 Nitroglycerin 0.4 mg SL PRN PRN 09/26/19 Nystatin [Nyamyc] 30 gm TP BID 09/26/19 Omeprazole 20 mg PO DAILY 09/26/19 Oxycodone HCl/Acetaminophen 1 tab PO Q8H PRN PRN 09/26/19 [Percocet 10-325 mg Tablet] Paroxetine HCl [Paxil] 40 mg PO DAILY 09/26/19 Potassium Chloride [Klor-Con 10] 20 meq PO DAILY 09/26/19 Roflumilast [Daliresp] 500 mcg PO DAILY 09/26/19 Ropinirole HCl 2 mg PO QHS 09/26/19 Suvorexant [Belsomra] 20 mg PO QHS 09/26/19 Tiotropium Aylett [Spiriva] 18 mcg IH DAILY 09/26/19 Tizanidine HCl [Zanaflex] 4 mg PO BID 09/26/19 Surgical History: Surgical History (Last Reviewed 09/26/19 @ 11:18 by Cora Guzman PA-C) H/O aortic valve replacement (Chronic) Onset Date: 12/03/16 Z95.2 TAVR: 23 mm Guillaume-Sapiens S3 valve 12/03/2016 H/O laminectomy Z98.890 History of left heart catheterization Onset Date: 09/03/16 Z98.890 History of tympanoplasty Z98.890 Hx of melanoma excision Z98.890, Z85.820 1996 Hx of removal of cyst Z98.890 Ganglion cyst right wrist Hx of rotator cuff surgery Z98.890 JAIME S/P hip replacement Z96.649 S/p bilateral carpal tunnel release Z98.890 Surgical History: appendectomy - Right hip replacement, back surgery, laminectomy, carpal tunnel surgery, right leg hematoma extraction, hysterectomy, rotator cuff repair, total hip arthroplasty, - - carpal tunnel, RLE DVT Psychiatric History: Anxiety, Depression INVAS TECH History: No pertinent INVAS TECH history Lives: Alone Smoking Status: Former smoker Alcohol: None Drugs: None - *Family History Maternal Family History: Family History (Last Reviewed 09/26/19 @ 11:19 by Cora Guzman PA-C) Mother Arthritis Diabetes Hormone deficiency CVA (cerebral vascular accident) Colon cancer Cancer Sister Bleeding disorder CVA (cerebral vascular accident) Colon cancer Daughter Cancer Seizures Father Diabetes Leukemia Grandmother Diabetes Unknown Asthma Heart disease Hypertension High cholesterol Thyroid disorder Osteoporosis Cancer Tuberculosis History Items: No pertinent history Review of Systems Constitutional: Reports: Anorexia, Fatigue. Denies: Weight Change HEENT: Denies: Head Aches, Sinus Congestion, Sinus Drainage Cardiovascular: Reports: Chest Pressure, Heaviness Respiratory: Denies: Cough, Shortness of breath at rest, Sputum production Gastrointestinal: Reports: Diarrhea, Nausea, Melena, Vomiting Genitourinary: Denies: Dysuria Musculoskeletal: Reports: Back Pain, Joint Pain. Denies: Joint Tenderness Skin: Denies: Rash, Wounds Neurological: Denies: Numbness, Tingling, Focal weakness Psychiatric: Denies: Anxiety, Depression, Homicidal Ideations, Suicidal Ideations Hematologic/ Lymphatic: Reports: Hx of blood clot Patient Problems: Active and Suspected Problems (Last Reviewed 09/26/19 @ 11:18 by Cora Guzman PA-C) Atrial fibrillation with RVR (Acute) Non-STEMI (non-ST elevated myocardial infarction) (Acute) Acute renal failure (Acute) Vomiting and diarrhea (Acute) Severe dehydration (Acute) Heme positive stool (Acute) - Physical Exam Vitals/I&O's: Vital Signs Temp Pulse Resp BP Pulse Ox 98.6 F 126 H 22 H 109/74 95 09/26/19 08:48 09/26/19 08:48 09/26/19 08:48 09/26/19 08:48 09/26/19 08:48 Oxygen Flow Rate (L/min) 3 Oxygen Delivery Method Nasal Cannula Weight: 174 lb 6.17 oz Body Mass Index (BMI) 34.0 Finger Stick Blood Glucose 112 Intake and Output for Last 24 Hours 09/24/19 09/25/19 09/26/19 23:59 23:59 23:59 Intake Total 2088.47 / 2088.47 Output Total 125 / 125 Balance 1963.47 / 1963.47 General: Alert, Oriented x3, Cooperative HEENT: Atraumatic, PERRLA, EOMI, Normocephalic Neck: Supple, No JVD, Negative Carotid Bruits Lungs: Clear to auscultation, Normal air movement Cardiovascular: Irregular Rate, Tachycardic Abdomen: Bowel Sounds Present, Soft, Non Tender, Obese Extremities: No edema, Capillary Refill Less than 3 Seconds Skin: No rashes, No breakdown Musculoskeletal: No Tenderness to Palpation of Joints or Extremities Neurological: Neuro grossly intact Psych/Mental Status: Normal Affect, Appropriate Microbiology Past 72 Hours 09/25/19 23:49 Stool Stool Occult Blood (SHANE) - Final Occult Blood Positive Laboratory Results 09/25/19 22:55: WBC Cancelled, Corrected WBC Cancelled, RBC Cancelled, Hgb Cancelled, Hct Cancelled, MCV Cancelled, MCH Cancelled, MCHC Cancelled, RDW Std Deviation Cancelled, RDW Coeff of Jeff Cancelled, Plt Count Cancelled, MPV Cancelled, Immature Gran % (Auto) Cancelled, Neut % (Auto) Cancelled, Lymph % (Auto) Cancelled, [place] % (Auto) Cancelled, Eos % (Auto) Cancelled, Baso % (Auto) Cancelled, Absolute Neuts (auto) Cancelled, Absolute Lymphs (auto) Cancelled, Total Counted Cancelled, Neutrophils % (Manual) Cancelled, Band Neutrophils % Cancelled, Lymphocytes % (Manual) Cancelled, Monocytes % (Manual) Cancelled, Eosinophils % (Manual) Cancelled, Basophils % (Manual) Cancelled, Metamyelocytes % Cancelled, Myelocytes % Cancelled, Promyelocytes % Cancelled, Blast Cells % Cancelled, Plasma Cell % (Manual) Cancelled, Other Cells % Cancelled, Nucleated RBC % Cancelled, Nucleated RBCs/100 WBC Cancelled, Differential Comment Cancelled, Diff Path Review Cancelled, Hypersegmented Neuts Cancelled, Atypical Lymphocytes Cancelled, Reactive Lymphocytes Cancelled, Smudge Cells Cancelled, Toxic Granulation Cancelled, Toxic Vacuolation Cancelled, Dohle Bodies Cancelled, Usman Rods Cancelled, Platelet Estimate Cancelled, Plt Morphology Comment Cancelled, RBC Morphology Cancelled, Polychromasia Cancelled, Hypochromasia Cancelled, Poikilocytosis Cancelled, Basophilic Stippling Cancelled, Anisocytosis Cancelled, Microcytosis Cancelled, Macrocytosis Cancelled, Spherocytes Cancelled, Sickle Cells Cancelled, Target Cells Cancelled, Tear Drop Cells Cancelled, Ovalocytes Cancelled, Stomatocytes Cancelled, Bec[place] Bodies Cancelled, [place] Cells Cancelled, Bite Cells Cancelled, Crenated Cell Cancelled, Acanthocytes (Spur) Cancelled, Rouleaux Cancelled, Schistocytes Cancelled 09/25/19 22:55: PT 17.2 H, INR 1.4, APTT 48.5 H 09/25/19 22:55: Sodium 132 L, Potassium 4.3, Chloride 99, Carbon Dioxide 17.0 L, Anion Gap 16 H, BUN 47 H, Creatinine 3.61 H, Estim Creat Clear Calc 9.97, Est GFR (MDRD) Af Amer 16 L, Est GFR (MDRD) Non-Af 13 L, BUN/Creatinine Ratio 13.0, Glucose 238 H, Calcium 8.1 L, Total Bilirubin 0.80, AST 116 H, ALT 142 H, Alkaline Phosphatase 77, Troponin I 1.110 H*, Total Protein 6.3 L, Albumin 2.5 L, Globulin 3.8, Albumin/Globulin Ratio 0.7 L, Lipase 64 L 09/25/19 22:55: Magnesium 1.6, TSH 0.42 09/25/19 23:57: WBC 15.8 H, RBC 4.41, Hgb 13.5, Hct 40.6, MCV 92.1, MCH 30.6, MCHC 33.3, RDW Std Deviation 52.1 H, RDW Coeff of Jeff 15.2 H, Plt Count 61 L, Immature Gran % (Auto) 1.500 H, Neut % (Auto) 85.9 H, Lymph % (Auto) 4.1 L, [place] % (Auto) 5.0, Eos % (Auto) 3.2, Baso % (Auto) 0.3, Absolute Neuts (auto) 13.6 H, Absolute Lymphs (auto) 0.64 L, Nucleated RBC % 0, Differential Comment SCANNED, Diff Path Review February foll, Platelet Estimate TNP 09/26/19 03:00: Hgb 13.2, Hct 38.5 09/26/19 03:00: Sodium 136, Potassium 4.8, Chloride 106, Carbon Dioxide 15.0 L, Anion Gap 15, BUN 48 H, Creatinine 3.22 H, Estim Creat Clear Calc 11.18, Est GFR (MDRD) Af Amer 18 L, Est GFR (MDRD) Non-Af 15 L, BUN/Creatinine Ratio 14.9, Glucose 166 H, Calcium 6.7 L, TSH Cancelled 09/26/19 03:00: Troponin I 1.050 H* 09/26/19 03:51: POC Glucose 158 H 09/26/19 04:40: Urine Color Yellow, Urine Clarity Cloudy, Urine pH 5.0, Ur Specific [place] 1.020, Urine Protein 100 H, Urine Glucose (UA) Normal, Urine Ketones 5 H, Urine Occult Blood 250 H, Urine Nitrite Negative, Urine Bilirubin 1 H, Urine Urobilinogen 1 H, Ur Leukocyte Esterase 500 H, Urine RBC 25-50 SEEN, Urine WBC 50-100 SEEN, Ur Squamous Epith Cells 0-5 SEEN, Urine Bacteria 2+, Coarse Granular Casts 0-5 SEEN, Urine Mucus 0 SEEN 09/26/19 05:00: APTT 99.2 H* 09/26/19 06:00: Troponin I 0.868 H* 09/26/19 06:48: POC Glucose 169 H 09/26/19 08:45: Hgb 12.8, Hct 37.4 09/26/19 08:45: Troponin I 1.230 H* Current Medications Albuterol Sulfate (Ventolin Aerosols) 2.5 mg INHALATION Q2H PRN PRN PRN Reason: SOB &/OR WHEEZING Albuterol/Ipratropium (Duoneb) 3 ml INHALATION Q6HWA.RT DIAMOND Last Admin: 09/26/19 07:40 Dose: Not Given Documented by: Budesonide (Pulmicort Aerosol) 0.5 mg INHALATION Q12H.RT DIAMOND Last Admin: 09/26/19 07:40 Dose: Not Given Documented by: Dextrose (D50w Syringe) 0 gm IV X1 PRN; Protocol PRN Reason: Hypoglycemia Fluticasone Propionate (Flonase Nasal [place]) 2 spray NASAL DAILY DIAMOND Glucagon () 1 mg IM .X1 PRN PRN Reason: Hypoglycemia Heparin Sodium (Porcine) (Heparin Na) 0 unit IV UD PRN; Protocol Diltiazem HCl 125 mg/ Dextrose 125 mls @ 5 mls/hr IV .Q25H DIAMOND; Protocol Last Titration: 09/26/19 07:15 Dose: 15 mg/hr, 15 mls/hr Documented by: Heparin Sodium/Dextrose () 25,000 units in 250 mls @ 12 mls/hr IV .[id number] DIAMOND; Protocol Last Titration: 09/26/19 06:34 Dose: 1,000 units/hr, 10 mls/hr Documented by: Sodium Chloride () 1,000 mls @ 100 mls/hr IV .Q10H DIAMOND Stop: 09/26/19 22:32 Last Infusion: 09/26/19 05:59 Dose: 100 mls/hr Documented by: Pantoprazole Sodium 40 mg/ (Sodium Chloride) 110 mls @ 330 mls/hr IV Q12 DIAMOND Last Infusion: 09/26/19 04:36 Dose: Infused Documented by: Sodium Chloride () 250 mls @ 15 mls/hr IV .[id number] PRN PRN Reason: Saline Flush Amiodarone HCl 360 mg/ (Dextrose) 200 mls @ 33.333 mls/hr CONT INF .Q6H DIAMOND Stop: 09/26/19 11:19 Last Infusion: 09/26/19 07:01 Dose: 1 mg/min, 33.3 mls/hr Documented by: Amiodarone HCl 360 mg/ (Dextrose) 200 mls @ 16.667 mls/hr CONT INF .Q12H DIAMOND Stop: 09/27/19 05:29 Influenza Virus Vaccine Quadrival (Flucelvax /Fluzone ) 0.5 ml IM .ONCE ONE Stop: 09/26/19 10:01 Insulin Glargine (Lantus (Bk)) 10 units SC QHS [facility] Last Admin: 09/26/19 04:08 Dose: 10 units Documented by: Insulin Human Lispro (Humalog Kwikpen ([facility])) 0 unit SC Q4 DIAMOND; Protocol Last Admin: 09/26/19 06:54 Dose: 1 units Documented by: Metoprolol Succinate (Toprol Xl (Beta Isabel)) 25 mg PO BID [facility] Last Admin: 09/26/19 08:09 Dose: 25 mg Documented by: Nystatin (Mycostatin Powder) 1 applic TOPICAL BID [facility]; Protocol Ondansetron HCl (Zofran) 4 mg IV Q8H PRN PRN PRN Reason: NAUSEA/VOMITING Last Admin: 09/26/19 09:10 Dose: 4 mg Documented by: Sodium Chloride () 10 - 40 ml IV UD PRN PRN Reason: SALINE FLUSH Assessment/Plan All Active Problems (Last Reviewed 09/26/19 @ 11:18 by Cora Guzman PA-C) Atrial fibrillation with RVR (Acute) Non-STEMI (non-ST elevated myocardial infarction) (Acute) Acute renal failure (Acute) Vomiting and diarrhea (Acute) Severe dehydration (Acute) Heme positive stool (Acute) Chronic hypoxemic respiratory failure (Resolved) Colitis (Resolved) GI (gastrointestinal bleed) (Resolved) History of DVT (deep vein thrombosis) (Resolved) Hypomagnesemia (Resolved) Hypothyroidism (Resolved) Iron deficiency anemia (Resolved) Severe aortic stenosis (Resolved) I have been consulted in conjunction with Dr. Tesfaye. Impression: Heme positive stools. Nausea. ?Melena. Hgb stable. Anticoagulated. Plan: Discussed patient with Dr. Tesfaye. Patient's Hgb is stable at this time. She is also on a Heparin drip for an NSTEMI. Cardiology is on consult. Patient is due for a repeat upper/lower scopes. Once patient more medically stable and able to hold her anticoagulants, we will proceed with scopes. Patient has had the opportunity to ask and have questions answered. Patient verbally understands the risk versus benefit at this time and would also like to hear from cardiology first. She agrees with the plan. We will continue to monitor this patient. Thank you for allowing us to participate in this patient's care. Code Visit Office Visits / Consults: [id number] IP Consult L3
[2019-09-26] MEDS: Fluticasone 0.05% 1 SPRAY NASAL.SRY 2 SPRAY NASAL (10:33)
[2019-09-26] MEDS: Nystatin Powder 15gm Bottle 1 APPLIC TOPICAL ×2 (10:34→22:43)
[2019-09-26 10:46] LABS: Bedside Glucose 161 mg/dL (70-110)
[2019-09-26 10:54] LABS: Partial Thromboplast Time 104.4 Seconds (24.1-36.2)
--- NOTE | 2019-09-26 11:12 | CASEMGMT ---
Patient has a Healthcare Power of Set Up Machinist and a Healthcare Living Will on file in e-chart. A copy was printed and placed in her paper chart. Marlena POE MSW
--- NOTE | 2019-09-26 14:40 | CASEMGMT ---
RN CM Assessment Introduced role of RN CM to patient.? Patient is alert, oriented and able?to participate in RN CM Assessment. ?Care providers, pharmacy, and demographics verified. Presentation: N/V/D, weakness. Stools looked black and had coffee ground emesis, on home iron supplement Admit Dx: Nstemi IN, Afib rvr Re-Admit: No Barriers/Issues: None PCP: Yesenia Leon, [facility] Specialists: Cardio- Dr Killian, Hem- Dr Gutierrez, GI- Dr De Los Santos in [facility] Preferred Pharmacy: Uses [facility] and can get meds next day but not over the weekend. will use [facility], [place] for immediate need medications Insurance: [facility] PPO, [facility] Rx Benefit:?Yes ?LNOK: Dtr Tsering Kim LW/HPOA: Yes both on file with [facility]. HPOA- Dtr Tsering Kim Living Arrangements:? Lives alone in a senior apartment complex on ground level, 1 small step but has a ramp. ADL?s: Uses her [employer] outside, ambulates inside wit 2ww or cane. Independent with ADLs Transportation: Uses [employer] as she lives close to everywhere she needs to go, [facility] transport for medical appointments DME: [employer] (electric scooter), Home O2 3L at night and during the day if needed, CPAP bled with O2, Nebulizer, Glucometer, 3in1 commode, grab bars in shower, Cane, 2WW. HHC: Past with [facility] SNF: None Goal: Home and does not think will have have any needs. Denies any issues, concerns, or questions with DC planning at this time. Aware CM remains available for any emerging needs. DC PLAN: Home with no anticipated needs identified at this time. NAHUN Alvares
[2019-09-26] MEDS: proCHLORPERazine 10 MG/2 ML Vial IV (14:44)
[2019-09-26] MEDS: 0.9% Saline Lock 10 ML Syringe IV ×3 (14:47→23:38)
[2019-09-26 15:16] LABS: Hematocrit 37.6 % (37-47); Hemoglobin 12.7 g/dL (12.0-15.0)
[2019-09-26 15:32] LABS: Pathologist Review Reviewed
--- NOTE | 2019-09-26 15:38 | PN_ITS ---
Patient Problems: Active and Suspected Problems (Last Reviewed 09/26/19 @ 11:18 by Cora Guzman PA-C) Atrial fibrillation with RVR (Acute) Non-STEMI (non-ST elevated myocardial infarction) (Acute) Acute renal failure (Acute) Vomiting and diarrhea (Acute) Severe dehydration (Acute) Heme positive stool (Acute) Reason for Visit: afib rvr Subjective: No chest pain. No palpitations. Complains of nausea refractory to ondansetron. Vitals/I&O's: Vital Signs Temp Pulse Resp BP Pulse Ox 37.0 C 79 20 H 97/62 96 09/26/19 08:48 09/26/19 15:07 09/26/19 15:00 09/26/19 15:00 09/26/19 15:00 Oxygen Flow Rate (L/min) 3 Oxygen Delivery Method Nasal Cannula Weight: 79.1 kg Body Mass Index (BMI) 34.0 Finger Stick Blood Glucose 112 Intake and Output for Last 24 Hours 09/24/19 09/25/19 09/26/19 23:59 23:59 23:59 Intake Total 3386.90 / 3386.90 Output Total 475 / 475 Balance 2911.90 / 2911.90 General: Alert, Cooperative, No apparent distress HEENT: Atraumatic, Normocephalic Neck: No Nodes, Trachea Midline Lungs: Clear to auscultation, Normal air movement, No rhonchi, No wheeze, No r ales Cardiovascular: Regular rate, Regular Rhythm, Normal S1, Normal S2, No murmurs Abdomen: Bowel Sounds Present, Soft, Non Tender, Non-Distended, No Hepato- splenomegaly Extremities: No edema, No Calf Tenderness Skin: No rashes, No breakdown Musculoskeletal: No Tenderness to Palpation of Joints or Extremities, No Muscle Wasting Neurological: Neuro grossly intact, - - no clonus Psych/Mental Status: Normal Affect, Appropriate Microbiology Past 72 Hours 09/25/19 23:49 Stool Stool Occult Blood (SHANE) - Final Occult Blood Positive Laboratory Results 09/25/19 22:55: WBC Cancelled, Corrected WBC Cancelled, RBC Cancelled, Hgb Cancelled, Hct Cancelled, MCV Cancelled, MCH Cancelled, MCHC Cancelled, RDW Std Deviation Cancelled, RDW Coeff of Jeff Cancelled, Plt Count Cancelled, MPV Cancelled, Immature Gran % (Auto) Cancelled, Neut % (Auto) Cancelled, Lymph % (Auto) Cancelled, [place] % (Auto) Cancelled, Eos % (Auto) Cancelled, Baso % (Auto) Cancelled, Absolute Neuts (auto) Cancelled, Absolute Lymphs (auto) Cancelled, Total Counted Cancelled, Neutrophils % (Manual) Cancelled, Band Neutrophils % Cancelled, Lymphocytes % (Manual) Cancelled, Monocytes % (Manual) Cancelled, Eosinophils % (Manual) Cancelled, Basophils % (Manual) Cancelled, Metamyelocytes % Cancelled, Myelocytes % Cancelled, Promyelocytes % Cancelled, Blast Cells % Cancelled, Plasma Cell % (Manual) Cancelled, Other Cells % Cancelled, Nucleated RBC % Cancelled, Nucleated RBCs/100 WBC Cancelled, Differential Comment Cancelled, Diff Path Review Cancelled, Hypersegmented Neuts Cancelled, Atypical Lymphocytes Cancelled, Reactive Lymphocytes Cancelled, Smudge Cells Cancelled, Toxic Granulation Cancelled, Toxic Vacuolation Cancelled, Dohle Bodies Cancelled, Usman Rods Cancelled, Platelet Estimate Cancelled, Plt Morphology Comment Cancelled, RBC Morphology Cancelled, Polychromasia Cancelled, Hypochromasia Cancelled, Poikilocytosis Cancelled, Basophilic Stippling Cancell ed, Anisocytosis Cancelled, Microcytosis Cancelled, Macrocytosis Cancelled, Spherocytes Cancelled, Sickle Cells Cancelled, Target Cells Cancelled, Tear Drop Cells Cancelled, Ovalocytes Cancelled, Stomatocytes Cancelled, Becerra-Kingman Bodies Cancelled, [place] Cells Cancelled, Bite Cells Cancelled, Crenated Cell Cancelled, Acanthocytes (Spur) Cancelled, Rouleaux Cancelled, Schistocytes Cancelled 09/25/19 22:55: PT 17.2 H, INR 1.4, APTT 48.5 H 09/25/19 22:55: Sodium 132 L, Potassium 4.3, Chloride 99, Carbon Dioxide 17.0 L, Anion Gap 16 H, BUN 47 H, Creatinine 3.61 H, Estim Creat Clear Calc 9.97, Est GFR (MDRD) Af Amer 16 L, Est GFR (MDRD) Non-Af 13 L, BUN/Creatinine Ratio 13.0, Glucose 238 H, Calcium 8.1 L, Total Bilirubin 0.80, AST 116 H, ALT 142 H, Alkaline Phosphatase 77, Troponin I 1.110 H*, Total Protein 6.3 L, Albumin 2.5 L , Globulin 3.8, Albumin/Globulin Ratio 0.7 L, Lipase 64 L 09/25/19 22:55: Magnesium 1.6, TSH 0.42 09/25/19 23:57: WBC 15.8 H, RBC 4.41, Hgb 13.5, Hct 40.6, MCV 92.1, MCH 30.6, MCHC 33.3, RDW Std Deviation 52.1 H, RDW Coeff of Jeff 15.2 H, Plt Count 61 L, Immature Gran % (Auto) 1.500 H, Neut % (Auto) 85.9 H, Lymph % (Auto) 4.1 L, [place] % (Auto) 5.0, Eos % (Auto) 3.2, Baso % (Auto) 0.3, Absolute Neuts (auto) 13.6 H, Absolute Lymphs (auto) 0.64 L, Nucleated RBC % 0, Differential Comment SCANNED, Diff Path Review Reviewed, Platelet Estimate TNP 09/26/19 03:00: Hgb 13.2, Hct 38.5 09/26/19 03:00: Sodium 136, Potassium 4.8, Chloride 106, Carbon Dioxide 15.0 L, Anion Gap 15, BUN 48 H, Creatinine 3.22 H, Estim Creat Clear Calc 11.18, Est GFR (MDRD) Af Amer 18 L, Est GFR (MDRD) Non-Af 15 L, BUN/Creatinine Ratio 14.9, Glucose 166 H, Calcium 6.7 L, TSH Cancelled 09/26/19 03:00: Troponin I 1.050 H* 09/26/19 03:51: POC Glucose 158 H 09/26/19 04:40: Urine Color Yellow, Urine Clarity Cloudy, Urine pH 5.0, Ur Specific [place] 1.020, Urine Protein 100 H, Urine Glucose (UA) Normal, Urine Ketones 5 H, Urine Occult Blood 250 H, Urine Nitrite Negative, Urine Bilirubin 1 H, Urine Urobilinogen 1 H, Ur Leukocyte Esterase 500 H, Urine RBC 25-50 SEEN, Urine WBC 50-100 SEEN, Ur Squamous Epith Cells 0-5 SEEN, Urine Bacteria 2+, Coarse Granular Casts 0-5 SEEN, Urine Mucus 0 SEEN 09/26/19 05:00: APTT 99.2 H* 09/26/19 06:00: Troponin I 0.868 H* 09/26/19 06:48: POC Glucose 169 H 09/26/19 08:45: Hgb 12.8, Hct 37.4 09/26/19 08:45: Troponin I 1.230 H* 09/26/19 10:30: APTT 104.4 H* 09/26/19 10:30: POC Glucose 161 H 09/26/19 14:29: Hgb 12.7, Hct 37.6 Current Medications Acetaminophen (Tylenol) 650 mg PO Q4H PRN PRN PRN Reason: pain, temp >38.5 Last Admin: 09/26/19 14:45 Dose: 650 mg Documented by: Albuterol Sulfate (Ventolin Aerosols) 2.5 mg INHALATION Q2H PRN PRN PRN Reason: SOB &/OR WHEEZING Albuterol/Ipratropium (Duoneb) 3 ml INHALATION Q6HWA.RT DIAMOND Last Admin: 09/26/19 13:30 Dose: Not Given Documented by: Budesonide (Pulmicort Aerosol) 0.5 mg INHALATION Q12H.RT DIAMOND Last Admin: 09/26/19 13:30 Dose: Not Given Documented by: Fluticasone Propionate (Flonase Nasal [place]) 2 spray NASAL DAILY DIAMOND Last Admin: 09/26/19 10:33 Dose: 2 spray Documented by: Glucagon () 1 mg IM .X1 PRN PRN Reason: Hypoglycemia Heparin Sodium (Porcine) (Heparin Na) 0 unit IV UD PRN; Protocol Diltiazem HCl 125 mg/ Dextrose 125 mls @ 5 mls/hr IV .Q25H DIAMOND; Protocol Last Titration: 09/26/19 15:00 Dose: 0 mg/hr, 0 mls/hr Documented by: Heparin Sodium/Dextrose () 25,000 units in 250 mls @ 12 mls/hr IV .[id number] DIAMOND; Protocol Last Titration: 09/26/19 15:00 Dose: 700 units/hr, 7 mls/hr Documented by: Sodium Chloride () 1,000 mls @ 100 mls/hr IV .Q10H DIAMOND Stop: 09/26/19 22:32 Last Admin: 09/26/19 13:23 Dose: 100 mls/hr Documented by: Pantoprazole Sodium 40 mg/ (Sodium Chloride) 110 mls @ 330 mls/hr IV Q12 DIAMOND Last Infusion: 09/26/19 04:36 Dose: Infused Documented by: Sodium Chloride () 250 mls @ 15 mls/hr IV .[id number] PRN PRN Reason: Saline Flush Amiodarone HCl 360 mg/ (Dextrose) 200 mls @ 16.667 mls/hr CONT INF .Q12H DIAMOND Stop: 09/27/19 05:29 Last Admin: 09/26/19 13:00 Dose: 0.5 mg/min, 16.7 mls/hr Documented by: Dextrose (Dextrose 10%-Water) 250 mls @ 999 mls/hr IV X1 PRN; Protocol PRN Reason: HYPOGLYCEMIA Insulin Glargine (Lantus ([facility])) 10 units SC QHS DIAMOND Last Admin: 09/26/19 04:08 Dose: 10 units Documented by: Insulin Human Lispro (Humalog Kwikpen ([facility])) 0 unit SC ACHS DIAMOND; Protocol Metoprolol Succinate (Toprol Xl (Beta Isabel)) 25 mg PO BID DIAMOND Last Admin: 09/26/19 08:09 Dose: 25 mg Documented by: Nystatin (Mycostatin Powder) 1 applic TOPICAL BID DIAMOND; Protocol Last Admin: 09/26/19 10:34 Dose: 1 applicatio Documented by: Ondansetron HCl (Zofran) 4 mg IV Q8H PRN PRN PRN Reason: NAUSEA/VOMITING Last Admin: 09/26/19 09:10 Dose: 4 mg Documented by: Prochlorperazine Edisylate (Compazine Iv) 10 mg IV Q4H PRN PRN PRN Reason: nausea, vomiting Last Admin: 09/26/19 14:44 Dose: 10 mg Documented by: Sodium Chloride () 10 - 40 ml IV UD PRN PRN Reason: SALINE FLUSH Last Admin: 09/26/19 14:47 Dose: 10 ml Documented by: STROKE Vital Signs/Narrative: Vital Signs Pulse Resp BP BP Pulse Ox 09/26/19 15:07 79 09/26/19 15:00 81 20 H 97/62 96 09/26/19 14:00 77 18 114/99 H 100 09/26/19 12:03 99 09/26/19 11:51 86 28 H 111/87 H 98 Medical Necessity - Tobacco Use Smoking Status: Former smoker Assessment/Plan All Active Problems (Last Reviewed 09/26/19 @ 11:18 by Cora Guzman PA-C) Atrial fibrillation with RVR (Acute) Non-STEMI (non-ST elevated myocardial infarction) (Acute) Acute renal failure (Acute) Vomiting and diarrhea (Acute) Severe dehydration (Acute) Heme positive stool (Acute) Chronic hypoxemic respiratory failure (Resolved) Colitis (Resolved) GI (gastrointestinal bleed) (Resolved) History of DVT (deep vein thrombosis) (Resolved) Hypomagnesemia (Resolved) Hypothyroidism (Resolved) Iron deficiency anemia (Resolved) Severe aortic stenosis (Resolved) 1. afib rvr * improved * on amio gtt and dilt gtt * on oral dilt and metoprolol * anticoagulated with enoxaparin * EF 65% 2. NSTEMI * may be due to demand ischemia * on enoxaparin, metoprolol 3. heme positive stools * h/h stable * general surgery planning on endoscopy as outpt. 4. nausea * refractory to ondansetron * add prochloperazine * continue PPI IV 5. VTE proph: LMWH Code Visit Inpatient E&M: 16875 Subs Hosp L3
--- NOTE | 2019-09-26 15:59 | PCM.CONS.C ---
Problem List (1) Atrial fibrillation with RVR Status: Acute (2) Non-STEMI (non-ST elevated myocardial infarction) Status: Acute (3) Severe dehydration Status: Acute (4) Acute on chronic anemia Status: Inactive (5) Non-rheumatic aortic stenosis Status: Chronic (6) Essential (primary) hypertension Status: Chronic (7) H/O aortic valve replacement Status: Chronic Comment: TAVR: 23 mm Guillaume-Sapiens S3 valve 12/03/2016 Reason for Consult Date of Consultation: 09/26/19 Reason for Consultation: New onset atrial fibrillation with rapid ventricular response, hypertension, status post TAVR 2015, non-STEMI, chest pain History of Present Illness: The patient is a 74 year old F, patient of Dr. Gutiérrez with a history of hypertension, aortic stenosis, status post TAVR at [facility] in 2015, diabetes, hypertension, no previous CVA, previous catheterization on 09/03/2016 which showed nonobstructive disease of her LAD, RCA, and a 50 to 60% stenosis in the midportion of an obtuse marginal branch superimposed on relatively intact LV function. The patient also is a history of anemia and has had multiple scopes in the past. She also has a history of MTHFR disease, and is currently on iron sulfate and vitamins. Over the last several days the patient has noted new onset nausea, vomiting, diarrhea since this past Tuesday with associated fevers and coffee-ground emesis. She was able to take her medications however she would vomit them back up, suggesting she was not able to bah the benefit of her medications. When this did not improve, and segued into a rapid heart rate with substernal chest pressure she was brought to the emergency room where she was found to be in rapid atrial fibrillation, and dehydration with increase in her creatinine to 3.6. In addition her troponin was found to be 1.1 and increased to maximum 1.23. Patient was initially placed on a Cardizem drip, with minimal improvement of her heart rate, followed by IV Lopressor with minimal improvement of her heart rate, followed by IV amiodarone drip which eventually converted her to normal sinus rhythm. Currently she is in normal sinus rhythm and resting comfortably and denies any chest pain. Previous to this nausea and vomiting, she denied any exertional chest pain, angina or shortness of breath. She has not had a stress test since her catheterization in 2016. [] Past Medical History Allergies/Adverse Reactions: Allergies ciprofloxacin [From Cipro] Allergy (Verified 05/11/19 12:25) Rash ciprofloxacin HCl [From Cipro] Allergy (Verified 05/11/19 12:25) Rash gabapentin [From Neurontin] Allergy (Verified 05/11/19 12:25) Rash Home Medications: Ambulatory Orders Medication Instructions Recorded Albuterol Aerosols [Ventolin 2.5 mg INHALATION Q4H PRN PRN 09/26/19 Aerosols] Albuterol IH (ProAir) [Proair Hfa 2 puff INHALATION Q6H PRN PRN 09/26/19 (SP)Vent Pts] Aspirin [Aspir 81] 81 mg PO DAILY 09/26/19 Calcium Carbonate/Vitamin D3 1 ea PO TID 09/26/19 [Calcium 500-Vit D3 200 Tablet] Cyanocobalamin (Vitamin B-12) 1,000 mcg PO DAILY 09/26/19 [Vitamin B-12] Diclofenac Sodium [Voltaren] 1 applic TP PRN PRN 09/26/19 Diltiazem CD [Cardizem CD] 240 mg PO DAILY 09/26/19 Fesoterodine Fumarate [Toviaz] 8 mg PO DAILY 09/26/19 Fluticasone 0.05% [Flonase Nasal 2 spray NASAL DAILY 09/26/19 [place]] Fluticasone/Salmeterol [Advair Hfa 2 puff INHALATION BID 09/26/19 115-21 Mcg Inhaler] Furosemide [Lasix] 40 mg PO BIDLX 09/26/19 Insulin Aspart [Novolog Flexpen units SUBCUT TIDCM 09/26/19 ([facility])] Insulin Detemir [Levemir] 50 unit SQ QHS 09/26/19 Iron Polysaccharide Complex 150 mg PO BID 09/26/19 [Ferrex 150] L.acidoph,Paracasei, B.lactis 1 ea PO DAILY 09/26/19 [Probiotic] Linagliptin [Tradjenta] 5 mg PO DAILY 09/26/19 Methimazole 5 mg PO DAILY 09/26/19 Metoprolol Succinate [Toprol Xl] 25 mg PO BID 09/26/19 Nitroglycerin 0.4 mg SL PRN PRN 09/26/19 Nystatin [Nyamyc] 30 gm TP BID 09/26/19 Omeprazole 20 mg PO DAILY 09/26/19 Oxycodone HCl/Acetaminophen 1 tab PO Q8H PRN PRN 09/26/19 [Percocet 10-325 mg Tablet] Paroxetine HCl [Paxil] 40 mg PO DAILY 09/26/19 Potassium Chloride [Klor-Con 10] 20 meq PO DAILY 09/26/19 Roflumilast [Daliresp] 500 mcg PO DAILY 09/26/19 Ropinirole HCl 2 mg PO QHS 09/26/19 Suvorexant [Belsomra] 20 mg PO QHS 09/26/19 Tiotropium [place] [Spiriva] 18 mcg IH DAILY 09/26/19 Tizanidine HCl [Zanaflex] 4 mg PO BID 09/26/19 Past Medical History (Chronic Problems): Chronic Problems (Last Reviewed 09/26/19 @ 11:18 by Cora Guzman PA-C) Right bundle branch block (RBBB) (Chronic) Chronic diastolic heart failure (Chronic) Non-rheumatic aortic stenosis (Chronic) Hyperlipidemia (Chronic) Essential (primary) hypertension (Chronic) Secondary pulmonary arterial hypertension (Chronic) H/O aortic valve replacement (Chronic 12/03/16) TAVR: 23 mm Guillaume-Sapiens S3 valve 12/03/2016 Surgical History: appendectomy - Right hip replacement, back surgery, laminectomy, carpal tunnel surgery, right leg hematoma extraction, hysterectomy, rotator cuff repair, total hip arthroplasty, - - carpal tunnel, RLE DVT Psychiatric History: Anxiety, Depression RN LABOR DELIVERY History: No pertinent RN LABOR DELIVERY history - *Family History Maternal Family History: Family History (Last Reviewed 09/26/19 @ 11:19 by Cora Guzman PA-C) Mother Arthritis Diabetes Hormone deficiency CVA (cerebral vascular accident) Colon cancer Cancer Sister Bleeding disorder CVA (cerebral vascular accident) Colon cancer Daughter Cancer Seizures Father Diabetes Leukemia Grandmother Diabetes Unknown Asthma Heart disease Hypertension High cholesterol Thyroid disorder Osteoporosis Cancer Tuberculosis History Items: No pertinent history Lives: Alone Smoking Status: Former smoker Alcohol: None Drugs: None Review of Systems - Review of Systems General: Denies: Fever, Night Sweats, Fatigue Cardiovascular: Reports: Chest Discomfort, Chest Discomfort at Rest, Chest Heaviness, Palpitations. Denies: Shortness of Breath, Orthopnea, PND, Peripheral Edema, Lightheadedness, Dizziness, Near Syncope, Syncope Respiratory: Denies: Cough, Sputum Production, Hemoptysis Gastrointestinal: Reports: Nausea, Emesis, Hematemesis, Hematochezia. Denies: Melena Genitourinary: Denies: Dysuria, Hematuria Skin: Denies: Rash Subjectve: Patient resting comfortably, no acute distress. Objective: Vital Signs Temp Pulse Resp BP Pulse Ox 98.6 F 79 20 H 97/62 96 09/26/19 08:48 09/26/19 15:07 09/26/19 15:00 09/26/19 15:00 09/26/19 15:00 Oxygen Flow Rate (L/min) 3 Oxygen Delivery Method Nasal Cannula Weight: 174 lb 6.17 oz Body Mass Index (BMI) 34.0 Finger Stick Blood Glucose 112 Intake and Output for Last 24 Hours 09/24/19 09/25/19 09/26/19 23:59 23:59 23:59 Intake Total 3386.90 / 3386.90 Output Total 475 / 475 Balance 2911.90 / 2911.90 General: Awake, Alert, Oriented x 3 HEENT: PERRL, EOMI, Sclera Non Icteric Neck: Supple, Good ROM, No Lymph Node Enlargement Lungs: Clear to auscultation Cardiovascular: Regular Rhythm, Normal S1, Normal S2, No Murmurs, No Rubs, No Gallops Vascular: No Carotid Bruits, Normal Femoral Pulses, Normal Radial Pulses, Normal Dorsalis Pedal Pulse, Normal Posterior Tibial Pulses Abdomen: Bowel Sounds Present, Soft, Non Tender, No HSM, No Organomegaly Extremities: No Cyanosis, No Clubbing, No edema Neurological: No Focal Motor or Sensory Deficit 09/25/19 22:55: WBC Cancelled, Corrected WBC Cancelled, RBC Cancelled, Hgb Cancelled, Hct Cancelled, MCV Cancelled, MCH Cancelled, MCHC Cancelled, Plt Count Cancelled, MPV Cancelled, Immature Gran % (Auto) Cancelled, Neut % (Auto) Cancelled, Lymph % (Auto) Cancelled, [place] % (Auto) Cancelled, Eos % (Auto) Cancelled, Baso % (Auto) Cancelled, Absolute Neuts (auto) Cancelled, Total Counted Cancelled, Neutrophils % (Manual) Cancelled, Band Neutrophils % Cancelled, Lymphocytes % (Manual) Cancelled, Monocytes % (Manual) Cancelled, Eosinophils % (Manual) Cancelled, Basophils % (Manual) Cancelled, Metamyelocytes % Cancelled, Myelocytes % Cancelled, Promyelocytes % Cancelled, Blast Cells % Cancelled, Plasma Cell % (Manual) Cancelled, Other Cells % Cancelled, Nucleated RBC % Cancelled 09/25/19 22:55: PT 17.2 H, INR 1.4, APTT 48.5 H 09/25/19 22:55: Sodium 132 L, Potassium 4.3, Chloride 99, Carbon Dioxide 17.0 L, Anion Gap 16 H, BUN 47 H, Creatinine 3.61 H, Est GFR (MDRD) Af Amer 16 L, Est GFR (MDRD) Non-Af 13 L, BUN/Creatinine Ratio 13.0, Glucose 238 H, Calcium 8.1 L, Total Bilirubin 0.80, Troponin I 1.110 H* 09/25/19 22:55: Magnesium 1.6 09/25/19 23:57: WBC 15.8 H, RBC 4.41, Hgb 13.5, Hct 40.6, MCV 92.1, MCH 30.6, MCHC 33.3, Plt Count 61 L, Immature Gran % (Auto) 1.500 H, Neut % (Auto) 85.9 H, Lymph % (Auto) 4.1 L, [place] % (Auto) 5.0, Eos % (Auto) 3.2, Baso % (Auto) 0.3, Absolute Neuts (auto) 13.6 H, Nucleated RBC % 0 09/26/19 03:00: Hgb 13.2, Hct 38.5 09/26/19 03:00: Sodium 136, Potassium 4.8, Chloride 106, Carbon Dioxide 15.0 L, Anion Gap 15, BUN 48 H, Creatinine 3.22 H, Est GFR (MDRD) Af Amer 18 L, Est GFR (MDRD) Non-Af 15 L, BUN/Creatinine Ratio 14.9, Glucose 166 H, Calcium 6.7 L 09/26/19 03:00: Troponin I 1.050 H* 09/26/19 04:40: Urine Color Yellow, Urine Clarity Cloudy, Urine pH 5.0, Ur Specific [place] 1.020, Urine Protein 100 H, Urine Glucose (UA) Normal, Urine Ketones 5 H, Urine Occult Blood 250 H, Urine Nitrite Negative, Urine Bilirubin 1 H, Urine Urobilinogen 1 H, Ur Leukocyte Esterase 500 H, Urine RBC 25-50 SEEN, Urine WBC 50-100 SEEN 09/26/19 05:00: APTT 99.2 H* 09/26/19 06:00: Troponin I 0.868 H* 09/26/19 08:45: Hgb 12.8, Hct 37.4 09/26/19 08:45: Troponin I 1.230 H* 09/26/19 10:30: APTT 104.4 H* 09/26/19 14:29: Hgb 12.7, Hct 37.6 Rhythm: EKG: ECHO: Stress Test: Cardiac Cath: PCI: CT Surgery: Holter monitor: EPS: PPM: CXR: Chest CT Scan: Assessment/Plan 1. Atrial fibrillation: The patient presents with several days of nausea, vomiting, diarrhea, dehydration, acute on chronic renal insufficiency, rapid atrial fibrillation refractory to IV Cardizem and IV beta-gunjan, eventually corrected with IV amiodarone drip. In addition she had substernal chest pain and pressure and had a non-ST elevation myocardial infarction most likely due to demand ischemia from her known nonobstructive coronary disease and her rapid atrial fibrillation. Superimposed on this is a history of possible coffee-ground emesis, and black tarry stools although she is on iron therapy. At this point the patient is in normal sinus rhythm I would recommend that she continue on IV amiodarone drip at least for 24 hours at which time we will switch her to p.o. amiodarone 400 mg twice daily for 3 days followed by 200 mg daily. Given the limitations of anticoagulation given her upper GI issues, long-term anticoagulation is most likely not a good option and would recommend attempts be made to keep her in normal sinus rhythm going forward. In addition she will be started back on her Cardizem CD to 240 mg daily, and her Toprol-XL 25 mg p.o. twice daily. 2. Non-STEMI: The patient had an abnormal troponin, and substernal chest pain when she was undergoing rapid atrial fibrillation. Given the patient's upper GI bleeding issues and anemia, she may not be a good candidate for intervention until this is well-healed. An echocardiogram was obtained today which showed essentially intact LV function with an EF of 65%, and an RVSP of 29 mmHg which is an improvement from her previous echocardiogram at which time her PA pressures were in the mid 50s. In addition her TAVR appears to be operating normally. Another option would be for the patient undergo a noninvasive nuclear stress test to determine if she has any areas of ischemia particularly of the inferolateral wall which may suggest she would benefit from intervention of this vessel once her upper GI bleeding is fully evaluated and treated. The patient would obviously require several months of dual antiplatelet therapy which may be problematic if she has peptic ulcer disease. In addition, I would hold off on catheterization until her creatinine has normalized. 3. Hyperlipidemia: Recommend obtaining a fasting blood profile. 4. TAVR: The patient's echocardiogram shows normal functioning and stable TAVR, no vegetations noted. 5. The patient may follow up with Dr. Killian going forward. You very much for the opportunity to participate in the cardiac care of your patient. Consultation time took place between 345 and 4:15 PM. Code Visit Inpatient E&M: 98910 Init Hosp L2
[2019-09-26 16:40] LABS: Bedside Glucose 146 mg/dL (70-110)
[2019-09-26] MEDS: Albuterol 2.5 MG/3 ML VIAL.NEB. INHALATION (21:14)
[2019-09-26 21:25] LABS: Hematocrit 38.6 % (37-47); Hemoglobin 13.3 g/dL (12.0-15.0)
[2019-09-26 21:57] LABS: Cholesterol 86 mg/dL (200); High Density Lipoprotein 8 mg/dL; Triglycerides 228 mg/dL; Very Low Density Lipoprotein 46 mg/dL (5-40)
[2019-09-26 22:55] LABS: Bedside Glucose 239 mg/dL (70-110)
--- NOTE | 2019-09-26 23:10 | NURSING ---
Pt. very SOB respirs at 42. Pt. diaphoretic. BODY PAINTER called
--- NOTE | 2019-09-26 23:16 | RAD_ITS ---
STUDY: X-RAY CHEST REASON FOR EXAM: Female, 74 years old. Shortness of breath TECHNIQUE: Single AP portable view of the chest. COMPARISON: None. FINDINGS: Mild prominence of the interstitial lung markings throughout both lungs with mild associated central pulmonary vascular congestion, new from prior imaging. Mild cardiomegaly. Small bilateral pleural effusions. No pneumothorax. Normal mediastinum and duarte. There is atherosclerotic calcification of the aortic arch . There are diffuse degenerative changes of the visualized thoracic spine. Normal visualized ribs, clavicles, and shoulders. There is no demonstrated abnormality of the visualized soft tissue structures of the upper abdomen. RAD/Chest 1 View (Portable) IMPRESSION: Mild congestive heart failure with small bilateral pleural effusions Electronically Signed: Avtar Nair MD at 1:56 EST Tel , Service support ,
[2019-09-26] MEDS: MethylPREDNISolone 125 MG/2 ML Vial IV (23:22)
--- NOTE | 2019-09-26 23:23 | PCM.RRT.BLA ---
Rapid Response Note - Blank Rapid response Patient is respiratory rate in 30s to 40s. Heart rate in late 120S. Patient with tachypnea and use of accessory muscles of respiration. Heart rate S1-S2 present regular. Patient rhonchi and wheezes. Probable COPD exacerbation Solu-Medrol 25 mg x 1. Patient received breathing treatment about 2 hours ago. Will get chest x-ray stat. EKG stat. CBC and BMP stat. Serial troponin. Cards CODE STATUS with patient. Patient can accept CPR. No intubation. Patient was placed on BiPAP. We will give another dose of Solu-Medrol 40 mg x 1 in a.m.. Consider further needs of steroids.
[2019-09-26 23:24] LABS: Partial Thromboplast Time 48.5 Seconds (24.1-36.2)
[2019-09-26] MEDS: LORazepam 2 MG/ML Syringe 1 MG IV (23:45)
[2019-09-26 23:46] LABS: Absolute Lymphocyte Count 2.81 X10^3/uL (0.83-4.51); Absolute Neutrophil Count 18.6 X10^3/uL (2.0-7.7); Basophil# 0.08 X10^3/uL; Basophil% 0.3 % (0-1); Eosinophil# 0.01 X10^3/uL; Hematocrit 42.1 % (37-47); Hemoglobin 13.9 g/dL (12.0-15.0); Lymphocyte # 2.81 X10^3/ul (4.0); Lymphocyte % 11.9 % (19-41); Mean Corpuscular Hgb 30.2 pg (27.0-32.0); Mean Corpuscular Volume 91.3 fL (81-99); Monocyte# 1.68 X10^3/uL; Monocyte% 7.1 % (0-10); NRBC Flagged by Analyzer 0.1 % (0-5); Neutrophil # 18.57 X10^3/uL (2.7-7.7); Neutrophil % 78.9 % (47-70); POSITIVE COUNT YES; POSITIVE DIFFERENTIAL YES; Platelet Count 92 K/mm3 (150-450); RBC Distribution Width CV 15.8 % (11.6-14.6); RBC Distribution Width SD 53.5 fl (35.1-43.9); Red Blood Count 4.61 M/mm3 (4.2-5.4); White Blood Count 23.6 K/mm3 (4.4-11.0)
[2019-09-26 23:47] LABS: Differential Indicated SCAN CRITERIA MET
[2019-09-26] MEDS: Ipratropium/Albuterol Sulfate 3 ML AMPUL.NEB INHALATION (23:55)
[2019-09-27] VITALS (42 sets, daily range): BP systolic 95–142; BP diastolic 49–110; PULSE 79–118; RESP 12–41; TEMP 36.2–36.8; O2SAT 92–100
[2019-09-27 00:05] LABS: Base Excess -16 mmol/L (-2 to +2); Bicarbonate 10.8 mmol/L (22-26); Blood Gas Specimen Type ART; EPAP 10; FI02 40; IPAP 24; PO2 114 mmHG (75-100); RR 50; SITE R Brachial; SO2 98 % (95-99); Total Carbon Dioxide 12 mmol/L; pCO2 24.3 mmHg (35-45); pH 7.26 (7.35-7.45)
[2019-09-27 00:06] LABS: Anion Gap 14 (5-15); BUN 51 mg/dL (7-18); BUN/Creat Ratio 16.5 RATIO (10-20); Calcium,Total 7.6 mg/dL (8.5-10.1); Chloride 106 mmol/L (98-107); EST Glomerular Filtration Rate 16 mL/min (>60); Est Glom Filt Rate - Afr Amer 19 mL/min (>60); Estimated Creatinine Clearance 11.61 ml/min; Glucose 311 mg/dL (74-106); Potassium 4.8 mmol/L (3.5-5.1); Sodium Level 133 mmol/L (136-145)
[2019-09-27] MEDS: Albuterol 2.5 MG/3 ML VIAL.NEB. INHALATION (00:15)
[2019-09-27 00:17] LABS: Differential Comment SCANNED
--- NOTE | 2019-09-27 00:17 | NURSING ---
amiodarone gtt. had to be paused due to loss of IV access. Refinery Operator [employer] Eleni in room trying to start IV.
[2019-09-27] MEDS: Heparin Injection (Vial) 5,000 UNIT/ML VIAL IV (00:31)
--- NOTE | 2019-09-27 01:14 | PCM.PN.BLA ---
Progress Note Patient continues to be in respiratory distress with respiratory rates in the 40s. Troponin has increased to more than 3. Will start patient's on aspirin 81 mg daily. Give aspirin 162 mg x 1. Start patient on Lipitor. We will give morphine 2 mg IV x1. STROKE Vital Signs/Narrative: Vital Signs Temp Pulse Resp BP Pulse Ox 09/27/19 00:15 118 H 35 H 09/27/19 00:00 117 H 41 H 142/107 H 100 09/26/19 23:57 130 H 45 H 99 09/26/19 22:56 112 H 130/102 H 09/26/19 22:00 97.7 F L 108 H 34 H 130/102 H 94 09/26/19 21:15 91 31 H 97
--- NOTE | 2019-09-27 01:20 | NURSING ---
Dr. Amin given face to face update on pt. New orders obtained. RN in room now trying to start new IV. Amiodarone still on hold until IV access obtained as it is not compatible with the heparin gtt running in other IV.[
[2019-09-27] MEDS: Morphine 2 MG/ML Syringe IV (01:33)
[2019-09-27] MEDS: 0.9% Saline Lock 10 ML Syringe IV ×5 (01:40→22:12)
[2019-09-27] MEDS: Aspirin 81 MG TAB.CHEW 162 MG PO (01:41)
[2019-09-27] MEDS: Atorvastatin Calcium 80 MG Tablet PO ×2 (01:42→22:02)
--- NOTE | 2019-09-27 01:59 | NURSING ---
Orders obtained from Dr. Doherty for PO amiodarone to start now due to no IV access to run amiodarone gtt. which is still paused at this time. Central line needs placed and can be done when time allows. Numerous nurses tried to start IV with no success.
--- NOTE | 2019-09-27 02:02 | NURSING ---
Dr. Doherty aware that pt. is back in afib. HR 103. Orders obtained.
--- NOTE | 2019-09-27 02:06 | PCM.PN.BLA ---
Progress Note Chest x-ray showed mild congestive heart failure. Chest x-ray was independently reviewed and compared to previous x-ray impression is consistent. However because of MARILEE will await to see how much of relief she can get from the BiPAP. Of note her respiratory rate is decreasing and her heart rate is also improving. If patient start to deteriorate again consider Lasix. Recently completed 2 L of IV fluids. STROKE Vital Signs/Narrative: Vital Signs Pulse Resp BP Pulse Ox 09/27/19 00:15 118 H 35 H 09/27/19 00:00 117 H 41 H 142/107 H 100 09/26/19 23:57 130 H 45 H 99 09/26/19 22:56 112 H 130/102 H
[2019-09-27] MEDS: Amiodarone 200 MG Tablet 400 MG PO ×2 (02:33→08:27)
[2019-09-27 02:46] LABS: Blood Gas Specimen Type VEN; EPAP 8; FI02 40; IPAP 18; RR 12; SITE R Brachial; Time Given 235; VBG BASE EXCESS -10 mmol/L (-1.0-3.5); VBG Bicarbonate 17 mmol/L (22-26); VBG Oxygen Content 18 mmol/L (23-33); VBG PO2 28 mmHg (25-40); VBG SO2 46 % (50-70); VBG pCO2 34.1 mmHg (41-51); VBG pH 7.29 (7.32-7.42)
[2019-09-27 06:24] LABS: Absolute Lymphocyte Count 0.68 X10^3/uL (0.83-4.51); Absolute Neutrophil Count 10.4 X10^3/uL (2.0-7.7); Basophil# 0.06 X10^3/uL; Basophil% 0.5 % (0-1); Eosinophils% 0.8 % (0-5); Hematocrit 39.5 % (37-47); Hemoglobin 13.2 g/dL (12.0-15.0); Lymphocyte # 0.68 X10^3/ul (4.0); Lymphocyte % 5.7 % (19-41); Mean Corp Hgb Conc 33.4 g/dL (32-36); Mean Corpuscular Hgb 30.3 pg (27.0-32.0); Mean Corpuscular Volume 90.8 fL (81-99); Monocyte# 0.59 X10^3/uL; Monocyte% 4.9 % (0-10); NRBC Flagged by Analyzer 0 % (0-5); Neutrophil # 10.39 X10^3/uL (2.7-7.7); Neutrophil % 86.5 % (47-70); POSITIVE COUNT YES; POSITIVE MORPHOLOGY YES; RBC Distribution Width CV 15.4 % (11.6-14.6); RBC Distribution Width SD 51.8 fl (35.1-43.9); Red Blood Count 4.35 M/mm3 (4.2-5.4)
--- NOTE | 2019-09-27 06:34 | PN_ITS ---
Progress Note Patient lost one IV line and was rapid responded overnight. Currently there is only one IV through which heparin drip is running. Multiple attempts to get another IV line per nurses were unsuccessful. IJ was considered but because of anticoagulation with heparin; IJ was not done. Plan is to midline in am. Discussed the case with Dr. Méndez, administrator of home health. Recommendations to give Lasix 40mg IV X1. Restart amiodarone. Stop amiodarone po started overnight. Stop heparin drip; and do therapeutic lovenox renally dosed. STROKE Vital Signs/Narrative: Vital Signs Temp Pulse Resp BP Pulse Ox 09/27/19 05:30 90 21 H 100 09/27/19 04:00 97.1 F L 89 24 H 98/78 100 09/27/19 03:00 97.8 F 94 25 H 109/78 99 09/27/19 02:59 100
[2019-09-27 06:50] LABS: Bedside Glucose 264 mg/dL (70-110)
[2019-09-27 06:58] LABS: Anion Gap 14 (5-15); BUN 60 mg/dL (7-18); BUN/Creat Ratio 18.9 RATIO (10-20); Calcium,Total 7.5 mg/dL (8.5-10.1); Chloride 105 mmol/L (98-107); Creatinine, Serum 3.17 mg/dL (0.55-1.02); EST Glomerular Filtration Rate 15 mL/min (>60); Est Glom Filt Rate - Afr Amer 18 mL/min (>60); Estimated Creatinine Clearance 11.35 ml/min; Glucose 266 mg/dL (74-106); Potassium 4.5 mmol/L (3.5-5.1); Sodium Level 135 mmol/L (136-145)
[2019-09-27] MEDS: Insulin Lispro 100 UNIT/ML INSULN.PEN SC ×4 (06:59→22:03)
[2019-09-27 07:02] LABS: Differential Comment SCANNED; Differential Indicated SCAN CRITERIA MET; Partial Thromboplast Time 110.7 Seconds (24.1-36.2); Platelet Count 38 K/mm3 (150-450); Platelet Estimate MKD DEC (ADEQ)
[2019-09-27] MEDS: Furosemide 40 MG/4 ML Vial IV ×2 (07:11→15:49)
[2019-09-27] MEDS: Ipratropium/Albuterol Sulfate 3 ML AMPUL.NEB INHALATION ×3 (07:25→19:28)
--- NOTE | 2019-09-27 08:48 | PCM.PN.CARD ---
Subjectve: Patient seen and examined this morning, and events of last night noted. The patient developed recurrent atrial fibrillation with RVR with associated respiratory distress requiring emergent BiPAP therapy. During this event she lost an IV access, and her amiodarone drip was discontinued. Patient was given 400 mg of p.o. amiodarone last evening around 2:30 AM, and her rhythm converted back to normal sinus rhythm. In addition it was discovered that her platelets had markedly decreased down to 38. All heparin drips, flushes, and Lovenox were discontinued. HIT profile was sent and results pending. Creatinine has remained abnormal at 3.17, and renal consult obtained. IV Lasix given last night with ongoing diuresis. Objective: Vital Signs Temp Pulse Resp BP Pulse Ox 97.1 F L 89 21 H 98/78 100 09/27/19 04:00 09/27/19 06:47 09/27/19 05:30 09/27/19 04:00 09/27/19 05:30 Oxygen Flow Rate (L/min) 2 Oxygen Delivery Method Nasal Cannula Weight: 174 lb 6.17 oz Body Mass Index (BMI) 34.0 Finger Stick Blood Glucose 112 Intake and Output for Last 24 Hours 09/25/19 09/26/19 09/27/19 23:59 23:59 23:59 Intake Total 3848.07 / 3856.42 1091.52 / 1091.52 Output Total 475 / 475 Balance 3373.07 / 3381.42 1091.52 / 1091.52 General: Awake, Alert, Oriented x 3 HEENT: PERRL, EOMI, Sclera Non Icteric Neck: Supple, Good ROM, No Lymph Node Enlargement Lungs: Diminished Evangelista Bases Cardiovascular: Regular Rhythm, Normal S2, No Rubs, No Gallops Murmur Murmur: Grade 2/6, Crescendo-Decrescendo Vascular: No Carotid Bruits, Normal Femoral Pulses, Normal Radial Pulses, Normal Dorsalis Pedal Pulse, Normal Posterior Tibial Pulses Abdomen: Bowel Sounds Present, Soft, Non Tender, No HSM, No Organomegaly Extremities: No Cyanosis, No Clubbing, No edema Neurological: No Focal Motor or Sensory Deficit 09/26/19 08:45: Hgb 12.8, Hct 37.4 09/26/19 08:45: Troponin I 1.230 H* 09/26/19 08:45: Triglycerides 228 H, Cholesterol 86, LDL Cholesterol 32, VLDL Cholesterol 46 H, HDL Cholesterol 8 L 09/26/19 10:30: APTT 104.4 H* 09/26/19 14:29: Hgb 12.7, Hct 37.6 09/26/19 17:10: APTT 70.0 H 09/26/19 20:40: Hgb 13.3, Hct 38.6 09/26/19 23:05: APTT 48.5 H 09/26/19 23:30: WBC 23.6 H, RBC 4.61, Hgb 13.9, Hct 42.1, MCV 91.3, MCH 30.2, MCHC 33.0, Plt Count 92 L, Immature Gran % (Auto) 1.800 H, Neut % (Auto) 78.9 H, Lymph % (Auto) 11.9 L, [place] % (Auto) 7.1, Eos % (Auto) 0.0, Baso % (Auto) 0.3, Absolute Neuts (auto) 18.6 H, Nucleated RBC % 0.1 09/26/19 23:30: Sodium 133 L, Potassium 4.8, Chloride 106, Carbon Dioxide 13.0 L, Anion Gap 14, BUN 51 H, Creatinine 3.10 H, Est GFR (MDRD) Af Amer 19 L, Est GFR (MDRD) Non-Af 16 L, BUN/Creatinine Ratio 16.5, Glucose 311 H, Calcium 7.6 L, Troponin I 3.660 H* 09/26/19 23:59: pH 7.26 L, Bicarbonate Actual 10.8 L, POC Total CO2 12, Base Excess -16 L, O2 Saturation 98, ABG pCO2 24.3 L, ABG pO2 114 H, Constantine Test NA 09/27/19 02:25: Troponin I 4.450 H* 09/27/19 02:38: VBG pH 7.29 L, VBG pO2 28, VBG O2 Sat (Calc) 46 L, VBG O2 Content 18 L, VBG Base Excess -10 L 09/27/19 06:05: WBC 12.0 H, RBC 4.35, Hgb 13.2, Hct 39.5, MCV 90.8, MCH 30.3, MCHC 33.4, Plt Count 38 L*, Immature Gran % (Auto) 1.600 H, Neut % (Auto) 86.5 H, Lymph % (Auto) 5.7 L, [place] % (Auto) 4.9, Eos % (Auto) 0.8, Baso % (Auto) 0.5, Absolute Neuts (auto) 10.4 H, Nucleated RBC % 0 09/27/19 06:05: Sodium 135 L, Potassium 4.5, Chloride 105, Carbon Dioxide 16.0 L, Anion Gap 14, BUN 60 H, Creatinine 3.17 H, Est GFR (MDRD) Af Amer 18 L, Est GFR (MDRD) Non-Af 15 L, BUN/Creatinine Ratio 18.9, Glucose 266 H, Calcium 7.5 L 09/27/19 06:05: Troponin I 4.120 H* 09/27/19 06:05: APTT 110.7 H* Rhythm: EKG: ECHO: Stress Test: Cardiac Cath: PCI: CT Surgery: Holter monitor: EPS: PPM: CXR: Chest CT Scan: Medical Necessity - Tobacco Use Smoking Status: Former smoker Assessment/Plan 1. Atrial fibrillation: The patient presents with several days of nausea, vomiting, diarrhea, dehydration, acute on chronic renal insufficiency, rapid atrial fibrillation refractory to IV Cardizem and IV beta-gunjan, eventually corrected with IV amiodarone drip. In addition she had substernal chest pain and pressure and had a non-ST elevation myocardial infarction most likely due to demand ischemia from her known nonobstructive coronary disease and her rapid atrial fibrillation. Superimposed on this is a history of possible coffee-ground emesis, and black tarry stools although she is on iron therapy. Patient had recurrent episode of atrial fibrillation with rapid ventricular response which then triggered a respiratory distress requiring BiPAP therapy around 11:30 PM last night. Patient was given p.o. amiodarone 400 mg x 1, and she converted back to normal sinus rhythm. In addition was found that her platelets precipitously dropped, and her heparin drip was discontinued. Her creatinine is remained stable at 3.1. Max troponin so far was 4.45. I recommended the patient restart her amiodarone drip for another 24 hours to promote and preserve normal sinus rhythm as it appears when she goes in atrial fibrillation she has significant respiratory distress. In addition she will be started back on her Cardizem CD to 240 mg daily, and her Toprol-XL 25 mg p.o. twice daily. 2. Non-STEMI: The patient had an abnormal troponin, and substernal chest pain when she was undergoing rapid atrial fibrillation. Given the patient's upper GI bleeding issues and anemia, she may not be a good candidate for intervention until this is well-healed. An echocardiogram was obtained today which showed essentially intact LV function with an EF of 65%, and an RVSP of 29 mmHg which is an improvement from her previous echocardiogram at which time her PA pressures were in the mid 50s. In addition her TAVR appears to be operating normally. Given the patient's acute on chronic renal insufficiency, possible recent GI bleeding, I believe it is reasonable to undergo a non-walking Lexiscan/MPI to determine if she has any large areas of ischemia greater than 10% that would mandate repeat diagnostic catheterization and possible intervention. Should she require intervention she is not a good candidate for heparin based intervention but rather bivalirudin would be indicated. If the patient has significant ischemia particularly of the inferolateral wall where she had previously known mid obtuse marginal stenosis of around 50%, then she will require a coronary angiogram and a testing of dual antiplatelet therapy to ensure that she has no recurrent GI bleeding. In addition, I would hold off on catheterization until her creatinine has normalized or at the very least improved. Recommend renal consultation to evaluate her renal insufficiency. 3. Hyperlipidemia: Recommend obtaining a fasting blood profile. 4. TAVR: The patient's echocardiogram shows normal functioning and stable TAVR, no vegetations noted. 5. Thrombocytopenia: I recommended the patient be made allergic to heparin and heparin products, Lovenox, and all heparin flushes be discontinued. A HIT profile has been sent with results pending. Should the patient require anticoagulation she will need bivalirudin until this is evaluated more thoroughly. Code Visit Inpatient E&M: 88670 Subs Hosp L2
[2019-09-27 08:49] LABS: AST(SGOT) 990 U/L (15-37); Alanine Aminotransfer ALT/SGPT 690 U/L (13-56); Albumin, Serum 2.3 g/dL (3.2-5.0); Alkaline Phosphatase 72 U/L (45-117); Bilirubin, Direct 0.41 mg/dL (0.00-0.30); Globulin 3.2 g/dL (2.2-4.2); Protein, Total 5.5 g/dL (6.4-8.2)
[2019-09-27 09:04] LABS: Fibrinogen 428 mg/dl (203-444); International Normalized Ratio 1.6; Prothrombin Time (Protime)PT. 19.2 SECONDS (11.7-14.9)
[2019-09-27 09:24] LABS: D-Dimer Quantitative (DVT/PE) 18.97 FEU/ug/m (0.27-0.49)
--- NOTE | 2019-09-27 10:42 | STRESSREP ---
Stress Test Report Pharmacologic myocardial perfusion stress test. 74-year-old lady with a history of abnormal cardiac enzymes Stress protocol: Rest EKG demonstrates normal sinus rhythm with a rate of 91 bpm right bundle branch block is noted. 0.4 mg of regadenoson was infused per usual protocol followed Intravenous saline flush injection continuous EKG monitoring was performed. The patient maintained sinus rhythm throughout the recording the maximum heart rate attained was 106 bpm which was 72% of maximum predicted heart rate the maximum workload was 1 metabolic equivalent. At rest there were no ST or T wave changes noted suggest abnormal flow reserve at peak infusion nonspecific ST-T wave changes were noted. The resting blood pressure was 131/81 with a final blood pressure 127/75. Myocardial perfusion protocol. 12.0 mCi of technetium 99m sestamibi was injected at rest. 0.4 mg of regadenoson was infused per usual protocol peak infusion 36.0 mCi of technetium 99m sestamibi was injected stress images were obtained stress and rest images were reconstructed and compared in the short axis vertical and horizontal long axis. Gated images were also obtained Perfusion SPECT analysis: Review of the images demonstrate significant GI attenuation artifact. The stress images however appear to demonstrate uniform perfusion in all areas. The resting images demonstrate reduction of perfusion in the inferior wall. However, this is not consistent with ischemia and is probably related to shifting bowel artifact. Gated SPECT analysis: The gated ejection fraction is noted to be 32%. Conclusion: Pharmacologic myocardial perfusion stress test with no evidence of ischemia. Reduced ejection fraction
[2019-09-27] MEDS: Metoprolol(XL)Succ 25 MG Tablet PO ×2 (10:56→22:02)
[2019-09-27] MEDS: dilTIAZem CD 240 MG Capsule PO (10:56)
[2019-09-27] MEDS: Nystatin Powder 15gm Bottle 1 APPLIC TOPICAL ×2 (10:59→22:06)
[2019-09-27] MEDS: Fluticasone 0.05% 1 SPRAY NASAL.SRY 2 SPRAY NASAL (10:59)
--- NOTE | 2019-09-27 11:42 | US_ITS ---
STUDY: ABDOMINAL ULTRASOUND - RIGHT UPPER QUADRANT REASON FOR VISIT: Female, 74 years old right upper quadrant pain TECHNIQUE: Ultrasound evaluation of the right upper quadrant was performed with real-time and static cotter-scale imaging. TECHNICAL QUALITY: Adequate. COMPARISON: Abdomen and pelvic CT exam of June 26, 2019 FINDINGS: Liver: The liver measures 19.5 cm. There is normal echogenicity of the liver. The bile ducts are within normal limits. There is no demonstrated mass lesion. Gallbladder: Normal distended gallbladder. The gallbladder wall measures 2 mm. There is a negative sonographic Solano''s sign. There is no pericholecystic fluid. There are no gallstones. Common Bile Duct (C.B.D.): The common bile duct measures 4 mm. Pancreas: Normal pancreatic head and body. Tail not visualized secondary to bowel gas. There is normal echogenicity of the pancreas. There is no demonstrated pancreatic mass or cyst. Right Kidney: Normal size of the right kidney. The right kidney measures 11.0 x 5.2 x 4.0 cm. Normal renal cortex. The right cortex measures 1.2 cm. 8 mm simple cyst. There is no right hydronephrosis. US/Abdomen Limited IMPRESSION: Normal liver. Normal gallbladder. Nondistended common bile duct. Normal head and body of the pancreas. Tail not visualized secondary to bowel gas. Subcentimeter cyst of the right kidney. Otherwise normal right kidney. Electronically Signed: Svetlana Bradford MD at 17:42 EST , Service support ,
[2019-09-27 12:33] LABS: Pathologist Review Reviewed
[2019-09-27 12:35] LABS: Pathologist Review Reviewed
[2019-09-27 12:50] LABS: Bedside Glucose 280 mg/dL (70-110)
--- NOTE | 2019-09-27 12:55 | PCM.PN.SRG ---
Patient Problems: Active and Suspected Problems (Last Reviewed 09/26/19 @ 11:18 by Cora Guzman PA-C) Atrial fibrillation with RVR (Acute) Non-STEMI (non-ST elevated myocardial infarction) (Acute) Acute renal failure (Acute) Vomiting and diarrhea (Acute) Severe dehydration (Acute) Heme positive stool (Acute) Subjective: Patient did have a rapid response called last night, currently denies any chest pain does still have some right-sided abdominal pain which she said she has had off and on for a while denies it being related to anything specific like food. Patient's platelets did drop and the heparin was stopped. Patient did have a stress test just completed today. Hemoglobin has remained stable. - Physical Exam Vitals/I&O's: Vital Signs Temp Pulse Resp BP Pulse Ox 97.3 F L 93 25 H 129/99 H 100 09/27/19 08:00 09/27/19 10:56 09/27/19 10:14 09/27/19 08:00 09/27/19 10:14 Oxygen Flow Rate (L/min) 3 Oxygen Delivery Method Nasal Cannula Weight: 174 lb 6.17 oz Body Mass Index (BMI) 34.0 Finger Stick Blood Glucose 112 Intake and Output for Last 24 Hours 09/25/19 09/26/19 09/27/19 23:59 23:59 23:59 Intake Total 3848.07 / 3856.42 1201.52 / 1201.52 Output Total 475 / 475 Balance 3373.07 / 3381.42 1201.52 / 1201.52 General: Alert, Oriented x3, Cooperative, No apparent distress Lungs: Normal air movement Cardiovascular: Regular rate Abdomen: Soft, Non-Distended, Tender - Right abdomen?upper greater than lower, no peritoneal signs Extremities: No clubbing, No cyanosis, No edema Neurological: Cranial nerves II-XII grossly intact Psych/Mental Status: Normal Affect Microbiology Past 72 Hours 09/26/19 17:55 Stool Enteric Bacteriology - Final Salmonella Sp. 09/27/19 00:01 Mucosa - Nasopharyngeal Rapid RSV (DFA) - Final 09/27/19 00:01 Mucosa - Nasopharyngeal Influenza Types A,B Direct FA (SHANE) - Final 09/25/19 23:49 Stool Stool Occult Blood (SHANE) - Final Occult Blood Positive Laboratory Results 09/25/19 23:57: Diff Path Review Reviewed 09/26/19 08:45: Triglycerides 228 H, Cholesterol 86, LDL Cholesterol 32, VLDL Cholesterol 46 H, HDL Cholesterol 8 L 09/26/19 14:29: Hgb 12.7, Hct 37.6 09/26/19 16:36: POC Glucose 146 H 09/26/19 17:10: APTT 70.0 H 09/26/19 20:40: Hgb 13.3, Hct 38.6 09/26/19 22:38: POC Glucose 239 H 09/26/19 23:05: APTT 48.5 H 09/26/19 23:30: WBC 23.6 H, RBC 4.61, Hgb 13.9, Hct 42.1, MCV 91.3, MCH 30.2, MCHC 33.0, RDW Std Deviation 53.5 H, RDW Coeff of Jeff 15.8 H, Plt Count 92 L, Immature Gran % (Auto) 1.800 H, Neut % (Auto) 78.9 H, Lymph % (Auto) 11.9 L, [place] % (Auto) 7.1, Eos % (Auto) 0.0, Baso % (Auto) 0.3, Absolute Neuts (auto) 18.6 H, Absolute Lymphs (auto) 2.81, Nucleated RBC % 0.1, Differential Comment SCANNED, Diff Path Review Reviewed 09/26/19 23:30: Sodium 133 L, Potassium 4.8, Chloride 106, Carbon Dioxide 13.0 L, Anion Gap 14, BUN 51 H, Creatinine 3.10 H, Estim Creat Clear Calc 11.61, Est GFR (MDRD) Af Amer 19 L, Est GFR (MDRD) Non-Af 16 L, BUN/Creatinine Ratio 16.5, Glucose 311 H, Calcium 7.6 L, Troponin I 3.660 H* 09/26/19 23:59: Specimen Type ART, Sample Site R Brachial, pH 7.26 L, Bicarbonate Actual 10.8 L, POC Total CO2 12, Base Excess -16 L, O2 Saturation 98, O2 % 40, ABG pCO2 24.3 L, ABG pO2 114 H, Constantine Test NA, Respiration Rate 50, O2 Delivery Device Bi / C PAP, EPAP 10, IPAP 24, Blood Gas Notified Whom HOSP 09/27/19 02:25: Troponin I 4.450 H* 09/27/19 02:38: Specimen Type CAROLYN, Sample Site R Brachial, O2 % 40, VBG pH 7.29 L, VBG pO2 28, VBG O2 Sat (Calc) 46 L, VBG O2 Content 18 L, VBG Base Excess -10 L, POC Mix VBG pCO2 Pt Tmp 34.1 L, Respiration Rate 12, O2 Delivery Device Bi / C PAP, EPAP 8, IPAP 18, Blood Gas Notified Whom KEVIN MARTINEZ, Blood Gas Notified Time 235 09/27/19 06:05: WBC 12.0 H, RBC 4.35, Hgb 13.2, Hct 39.5, MCV 90.8, MCH 30.3, MCHC 33.4, RDW Std Deviation 51.8 H, RDW Coeff of Jeff 15.4 H, Plt Count 38 L*, Immature Gran % (Auto) 1.600 H, Neut % (Auto) 86.5 H, Lymph % (Auto) 5.7 L, [place] % (Auto) 4.9, Eos % (Auto) 0.8, Baso % (Auto) 0.5, Absolute Neuts (auto) 10.4 H, Absolute Lymphs (auto) 0.68 L, Nucleated RBC % 0, Differential Comment SCANNED, Diff Path Review Reviewed, Platelet Estimate MKD 09/27/19 06:05: Sodium 135 L, Potassium 4.5, Chloride 105, Carbon Dioxide 16.0 L, Anion Gap 14, BUN 60 H, Creatinine 3.17 H, Estim Creat Clear Calc 11.35, Est GFR (MDRD) Af Amer 18 L, Est GFR (MDRD) Non-Af 15 L, BUN/Creatinine Ratio 18.9, Glucose 266 H, Calcium 7.5 L 09/27/19 06:05: Troponin I 4.120 H* 09/27/19 06:05: APTT 110.7 H* 09/27/19 06:05: Heparin-induced Plt Ab Pending 09/27/19 06:05: PT 19.2 H, INR 1.6, Fibrinogen 428, D-Dimer Quant (PE/DVT) 18.97 H* 09/27/19 06:05: Total Bilirubin 0.70, Direct Bilirubin 0.41 H, AST 990 H, ALT 690 H, Alkaline Phosphatase 72, Total Protein 5.5 L, Albumin 2.3 L, Globulin 3.2 09/27/19 06:47: POC Glucose 264 H 09/27/19 12:35: POC Glucose 280 H Current Medications Acetaminophen (Tylenol) 650 mg PO Q4H PRN PRN PRN Reason: pain, temp >38.5 Last Admin: 09/26/19 14:45 Dose: 650 mg Documented by: Albuterol Sulfate (Ventolin Aerosols) 2.5 mg INHALATION Q2H PRN PRN PRN Reason: SOB &/OR WHEEZING Last Admin: 09/27/19 00:15 Dose: 2.5 mg Documented by: Albuterol/Ipratropium (Duoneb) 3 ml INHALATION Q6HWA.RT [facility] Last Admin: 09/27/19 07:25 Dose: 3 ml Documented by: Amiodarone HCl (Cordarone) 200 mg PO DAILY DI[facility]OND Aspirin (Aspirin, Baby) 81 mg PO DAILY@0800 [facility] Atorvastatin Calcium (Lipitor) 80 mg PO QHS [facility] Last Admin: 09/27/19 01:42 Dose: 80 mg Documented by: Budesonide (Pulmicort Aerosol) 0.5 mg INHALATION Q12H.RT [facility] Last Admin: 09/26/19 19:32 Dose: Not Given Documented by: Diltiazem HCl (Cardizem Cd) 240 mg PO DAILY [facility] Last Admin: 09/27/19 10:56 Dose: 240 mg Documented by: Fluticasone Propionate (Flonase Nasal [place]) 2 spray NASAL DAILY [facility] Last Admin: 09/27/19 10:59 Dose: 2 spray Documented by: Furosemide (Lasix) 40 mg IV DAILY DIAMOND Glucagon () 1 mg IM .X1 PRN PRN Reason: Hypoglycemia Pantoprazole Sodium 40 mg/ (Sodium Chloride) 110 mls @ 330 mls/hr IV Q12 [facility] Last Infusion: 09/27/19 12:41 Dose: Infused Documented by: Sodium Chloride () 250 mls @ 15 mls/hr IV .[id number] PRN PRN Reason: Saline Flush Dextrose (Dextrose 10%-Water) 250 mls @ 999 mls/hr IV X1 PRN; Protocol PRN Reason: HYPOGLYCEMIA Amiodarone HCl 360 mg/ (Dextrose) 200 mls @ 33.333 mls/hr CONT INF .Q6H [facility] Stop: 09/27/19 13:29 Last Admin: 09/27/19 12:39 Dose: 1 mg/min, 33.3 mls/hr Documented by: Amiodarone HCl 360 mg/ (Dextrose) 200 mls @ 16.667 mls/hr CONT INF .Q12H [facility] Stop: 09/28/19 07:29 Ceftriaxone Sodium 2 gm/ (Sodium Chloride) 50 mls @ 100 mls/hr IV Q24 [facility] Stop: 10/03/19 10:29 Insulin Glargine (Lantus (Bkc)) 10 units SC QHS [facility] Last Admin: 09/26/19 22:40 Dose: 10 units Documented by: Insulin Human Lispro (Humalog Kwikpen ([facility])) 0 unit SC ACHS [facility]; Protocol Last Admin: 09/27/19 12:39 Dose: 4 units Documented by: Metoprolol Succinate (Toprol Xl (Beta Isabel)) 25 mg PO BID [facility] Last Admin: 09/27/19 10:56 Dose: 25 mg Documented by: Nystatin (Mycostatin Powder) 1 applic TOPICAL BID [facility]; Protocol Last Admin: 09/27/19 10:59 Dose: 1 applicatio Documented by: Ondansetron HCl (Zofran) 4 mg IV Q8H PRN PRN PRN Reason: NAUSEA/VOMITING Last Admin: 09/26/19 09:10 Dose: 4 mg Documented by: Prochlorperazine Edisylate (Compazine Iv) 10 mg IV Q4H PRN PRN PRN Reason: nausea, vomiting Last Admin: 09/26/19 14:44 Dose: 10 mg Documented by: Sodium Chloride () 10 - 40 ml IV UD PRN PRN Reason: SALINE FLUSH Last Admin: 09/27/19 07:19 Dose: 10 ml Documented by: Medical Necessity - Tobacco Use Smoking Status: Former smoker Assessment/Plan All Active Problems (Last Reviewed 09/26/19 @ 11:18 by Cora Guzman PA-C) Atrial fibrillation with RVR (Acute) Non-STEMI (non-ST elevated myocardial infarction) (Acute) Acute renal failure (Acute) Vomiting and diarrhea (Acute) Severe dehydration (Acute) Heme positive stool (Acute) Chronic hypoxemic respiratory failure (Resolved) Colitis (Resolved) GI (gastrointestinal bleed) (Resolved) History of DVT (deep vein thrombosis) (Resolved) Hypomagnesemia (Resolved) Hypothyroidism (Resolved) Iron deficiency anemia (Resolved) Severe aortic stenosis (Resolved) 74-year-old female with NSTEMI, A. fib with RVR, fecal occult positive stool right-sided abdominal pain, positive d-dimer 1. Discussed with patient that if she remains stable would not plan for an urgent EGD or colonoscopy and she would be able to follow-up with her GI doctor Dr. Nixon. However, if something does change would plan to do 1 more urgently while she is here. 2. Did have thrombocytopenia this morning likely due to heparin--no plans for any surgical intervention until platelets improve. 3. Patient will be getting an ultrasound due to the right-sided abdominal pain, as well as a VQ scan due to positive d-dimer. We will continue to follow. Tessie Tesfaye M.D. Pager: [phone] [facility] [address] [place] [address], [facility], [address] [place] [address] Office: [phone] Code Visit Inpatient E&M: 83425 Subs Hosp L1
[2019-09-27] MEDS: Budesonide Respules 0.5 MG/2 ML AMPUL.NEB. INHALATION ×2 (13:31→19:28)
--- NOTE | 2019-09-27 13:36 | PN_ITS ---
<David Paredes - Last Filed: 09/27/19 13:36> Patient Problems: Active and Suspected Problems (Last Reviewed 09/26/19 @ 11:18 by Cora Guzman PA-C) Atrial fibrillation with RVR (Acute) Non-STEMI (non-ST elevated myocardial infarction) (Acute) Acute renal failure (Acute) Vomiting and diarrhea (Acute) Severe dehydration (Acute) Heme positive stool (Acute) Reason for Visit: Intractable nausea and vomiting Subjective: Pt resting comfortably in bed. Ongoing abdominal pain worse in the RUQ. No BM today and no vomiting today - prior to today profuse diarrhea and vomiting. No fever/chills. No hx C diff, no recent Abx use. Pt denies SOB. No chest pain. No dysuria. Pt reports hx of blood clots, hx of MTHFR, hx chronic low platelets, and that she follows Dr. Gutierrez for these. Pt tolerated the stress test this AM well with no issues. Vitals/I&O's: Vital Signs Temp Pulse Resp BP Pulse Ox 97.3 F L 93 25 H 129/99 H 100 09/27/19 08:00 09/27/19 10:56 09/27/19 10:14 09/27/19 08:00 09/27/19 10:14 Oxygen Flow Rate (L/min) 3 Oxygen Delivery Method Nasal Cannula Weight: 174 lb 6.17 oz Body Mass Index (BMI) 34.0 Finger Stick Blood Glucose 112 Intake and Output for Last 24 Hours 09/25/19 09/26/19 09/27/19 23:59 23:59 23:59 Intake Total 3848.07 / 3856.42 1201.52 / 1201.52 Output Total 475 / 475 Balance 3373.07 / 3381.42 1201.52 / 1201.52 General: Alert, Oriented x3, Cooperative HEENT: Atraumatic, PERRLA, EOMI, Normocephalic Neck: Supple, No JVD, Negative Carotid Bruits Lungs: Clear to auscultation, Normal air movement Cardiovascular: Regular rate, No murmurs Abdomen: Bowel Sounds Present, Soft, Non Tender, Tender - diffuse, worse RUQ. Extremities: No edema, Capillary Refill Less than 3 Seconds Skin: No rashes, No breakdown Musculoskeletal: No Tenderness to Palpation of Joints or Extremities Neurological: Cranial nerves II-XII grossly intact Psych/Mental Status: Normal Affect, Appropriate, Alert and oriented to time, place, person, mood and affect Microbiology Past 72 Hours 09/26/19 17:55 Stool Enteric Bacteriology - Final Salmonella Sp. 09/27/19 00:01 Mucosa - Nasopharyngeal Rapid RSV (DFA) - Final 09/27/19 00:01 Mucosa - Nasopharyngeal Influenza Types A,B Direct FA (SHANE) - Final 09/25/19 23:49 Stool Stool Occult Blood (SHANE) - Final Occult Blood Positive Laboratory Results 09/25/19 23:57: Diff Path Review Reviewed 09/26/19 08:45: Triglycerides 228 H, Cholesterol 86, LDL Cholesterol 32, VLDL Cholesterol 46 H, HDL Cholesterol 8 L 09/26/19 14:29: Hgb 12.7, Hct 37.6 09/26/19 16:36: POC Glucose 146 H 09/26/19 17:10: APTT 70.0 H 09/26/19 20:40: Hgb 13.3, Hct 38.6 09/26/19 22:38: POC Glucose 239 H 09/26/19 23:05: APTT 48.5 H 09/26/19 23:30: WBC 23.6 H, RBC 4.61, Hgb 13.9, Hct 42.1, MCV 91.3, MCH 30.2, MCHC 33.0, RDW Std Deviation 53.5 H, RDW Coeff of Jeff 15.8 H, Plt Count 92 L, Immature Gran % (Auto) 1.800 H, Neut % (Auto) 78.9 H, Lymph % (Auto) 11.9 L, Morton % (Auto) 7.1, Eos % (Auto) 0.0, Baso % (Auto) 0.3, Absolute Neuts (auto) 18.6 H, Absolute Lymphs (auto) 2.81, Nucleated RBC % 0.1, Differential Comment SCANNED, Diff Path Review Reviewed 09/26/19 23:30: Sodium 133 L, Potassium 4.8, Chloride 106, Carbon Dioxide 13.0 L , Anion Gap 14, BUN 51 H, Creatinine 3.10 H, Estim Creat Clear Calc 11.61, Est GFR (MDRD) Af Amer 19 L, Est GFR (MDRD) Non-Af 16 L, BUN/Creatinine Ratio 16.5, Glucose 311 H, Calcium 7.6 L, Troponin I 3.660 H* 09/26/19 23:59: Specimen Type ART, Sample Site R Brachial, pH 7.26 L, Bicarbonate Actual 10.8 L, POC Total CO2 12, Base Excess -16 L, O2 Saturation 98, O2 % 40, ABG pCO2 24.3 L, ABG pO2 114 H, Constantine Test NA, Respiration Rate 50, O2 Delivery Device Bi / C PAP, EPAP 10, IPAP 24, Blood Gas Notified Whom [facility]OS[facility] 09/27/19 02:25: Troponin I 4.450 H* 09/27/19 02:38: Specimen Type CAROLYN, Sample Site R Brachial, O2 % 40, VBG pH 7.29 L, VBG pO2 28, VBG O2 Sat (Calc) 46 L, VBG O2 Content 18 L, VBG Base Excess -10 L, POC Mix VBG pCO2 Pt Tmp 34.1 L, Respiration Rate 12, O2 Delivery Device Bi / C PAP, EPAP 8, IPAP 18, Blood Gas Notified Whom [facility] , Blood Gas Notified Time 235 09/27/19 06:05: WBC 12.0 H, RBC 4.35, Hgb 13.2, Hct 39.5, MCV 90.8, MCH 30.3, MCHC 33.4, RDW Std Deviation 51.8 H, RDW Coeff of Jeff 15.4 H, Plt Count 38 L*, Immature Gran % (Auto) 1.600 H, Neut % (Auto) 86.5 H, Lymph % (Auto) 5.7 L, Morton % (Auto) 4.9, Eos % (Auto) 0.8, Baso % (Auto) 0.5, Absolute Neuts (auto) 10.4 H, Absolute Lymphs (auto) 0.68 L, Nucleated RBC % 0, Differential Comment SCANNED, Diff Path Review Reviewed, Platelet Estimate MKD 09/27/19 06:05: Sodium 135 L, Potassium 4.5, Chloride 105, Carbon Dioxide 16.0 L , Anion Gap 14, BUN 60 H, Creatinine 3.17 H, Estim Creat Clear Calc 11.35, Est GFR (MDRD) Af Amer 18 L, Est GFR (MDRD) Non-Af 15 L, BUN/Creatinine Ratio 18.9, Glucose 266 H, Calcium 7.5 L 09/27/19 06:05: Troponin I 4.120 H* 09/27/19 06:05: APTT 110.7 H* 09/27/19 06:05: Heparin-induced Plt Ab Pending 09/27/19 06:05: PT 19.2 H, INR 1.6, Fibrinogen 428, D-Dimer Quant (PE/DVT) 18.97 H* 09/27/19 06:05: Total Bilirubin 0.70, Direct Bilirubin 0.41 H, AST 990 H, ALT 690 H, Alkaline Phosphatase 72, Total Protein 5.5 L, Albumin 2.3 L, Globulin 3.2 09/27/19 06:47: POC Glucose 264 H 09/27/19 12:35: POC Glucose 280 H Current Medications Acetaminophen (Tylenol) 650 mg PO Q4H PRN PRN PRN Reason: pain, temp >38.5 Last Admin: 09/26/19 14:45 Dose: 650 mg Documented by: Albuterol Sulfate (Ventolin Aerosols) 2.5 mg INHALATION Q2H PRN PRN PRN Reason: SOB &/OR WHEEZING Last Admin: 09/27/19 00:15 Dose: 2.5 mg Documented by: Albuterol/Ipratropium (Duoneb) 3 ml INHALATION Q6HWA.RT PENDING SALE TO [facility] Last Admin: 09/27/19 13:31 Dose: 3 ml Documented by: Amiodarone HCl (Cordarone) 200 mg PO DAILY PENDING SALE TO [facility] Aspirin (Aspirin, Baby) 81 mg PO DAILY@0800 PENDING SALE TO [facility] Atorvastatin Calcium (Lipitor) 80 mg PO QHS PENDING SALE TO [facility] Last Admin: 09/27/19 01:42 Dose: 80 mg Documented by: Budesonide (Pulmicort Aerosol) 0.5 mg INHALATION Q12H.RT PENDING SALE TO [facility] Last Admin: 09/27/19 13:31 Dose: 0.5 mg Documented by: Diltiazem HCl (Cardizem Cd) 240 mg PO DAILY PENDING SALE TO [facility] Last Admin: 09/27/19 10:56 Dose: 240 mg Documented by: Fluticasone Propionate (Flonase Nasal [place]) 2 spray NASAL DAILY PENDING SALE TO [facility] Last Admin: 09/27/19 10:59 Dose: 2 spray Documented by: Furosemide (Lasix) 40 mg IV DAILY PENDING SALE TO [facility] Glucagon () 1 mg IM .X1 PRN PRN Reason: Hypoglycemia Pantoprazole Sodium 40 mg/ (Sodium Chloride) 110 mls @ 330 mls/hr IV Q12 DIAMOND Last Infusion: 09/27/19 12:41 Dose: Infused Documented by: Sodium Chloride () 250 mls @ 15 mls/hr IV .[id number] PRN PRN Reason: Saline Flush Dextrose (Dextrose 10%-Water) 250 mls @ 999 mls/hr IV X1 PRN; Protocol PRN Reason: HYPOGLYCEMIA Amiodarone HCl 360 mg/ (Dextrose) 200 mls @ 16.667 mls/hr CONT INF .Q12H DIAMOND Stop: 09/28/19 07:29 Ceftriaxone Sodium 2 gm/ (Sodium Chloride) 50 mls @ 100 mls/hr IV Q24 DIAMOND Stop: 10/03/19 10:29 Insulin Glargine (Lantus ([facility])) 10 units SC QHS PENDING SALE TO [facility] Last Admin: 09/26/19 22:40 Dose: 10 units Documented by: Insulin Human Lispro (Humalog Kwikpen ([facility])) 0 unit SC ACHS PENDING SALE TO [facility]; Protocol Last Admin: 09/27/19 12:39 Dose: 4 units Documented by: Metoprolol Succinate (Toprol Xl (Beta Isabel)) 25 mg PO BID DIAMOND Last Admin: 09/27/19 10:56 Dose: 25 mg Documented by: Nystatin (Mycostatin Powder) 1 applic TOPICAL BID PENDING SALE TO [facility]; Protocol Last Admin: 09/27/19 10:59 Dose: 1 applicatio Documented by: Ondansetron HCl (Zofran) 4 mg IV Q8H PRN PRN PRN Reason: NAUSEA/VOMITING Last Admin: 09/26/19 09:10 Dose: 4 mg Documented by: Prochlorperazine Edisylate (Compazine Iv) 10 mg IV Q4H PRN PRN PRN Reason: nausea, vomiting Last Admin: 09/26/19 14:44 Dose: 10 mg Documented by: Sodium Chloride () 10 - 40 ml IV UD PRN PRN Reason: SALINE FLUSH Last Admin: 09/27/19 07:19 Dose: 10 ml Documented by: STROKE Vital Signs/Narrative: Vital Signs Pulse Resp Pulse Ox 09/27/19 10:56 93 09/27/19 10:14 89 25 H 100 Medical Necessity - Tobacco Use Smoking Status: Former smoker Assessment/Plan All Active Problems (Last Reviewed 09/26/19 @ 11:18 by Cora Guzman PA-C) Atrial fibrillation with RVR (Acute) Non-STEMI (non-ST elevated myocardial infarction) (Acute) Acute renal failure (Acute) Vomiting and diarrhea (Acute) Severe dehydration (Acute) Heme positive stool (Acute) Chronic hypoxemic respiratory failure (Resolved) Colitis (Resolved) GI (gastrointestinal bleed) (Resolved) History of DVT (deep vein thrombosis) (Resolved) Hypomagnesemia (Resolved) Hypothyroidism (Resolved) Iron deficiency anemia (Resolved) Severe aortic stenosis (Resolved) 1. Elevated troponin, NSTEMI - stress test negative. Cardiology following. 2. Acute sepsis 2/2 acute gastroenteritis 2/2 Salmonella - rocephin started. WBC improved from 23.6-->12.0. No fever. RUQ pain and abnormal LFTs. Gen surgery consulted. RUQ US pending. On IV PPI with hemoccult + stools. Surgery does not plan for EGD/Colon. Pt has outpatient GI. UA is also positive. 3. Thrombocytopenia - Plt dec from 92-->38. Cardiology stopped antiplatelets. Consult to Dr. Gutierrez. Fibrinogen normal. HIT Ab pending. There is no anemia. 4. Metabolic acidosis suspect 2/2 gastroenteritis she is not hypoxic, has no SOB, and PO2 is increased on ABG. Gap is normal. Continue supportive care. pH 7.29 on VBG, 7.26 on ABG. 5. MARILEE - 2/2 N/V/D - however started on lasix last night for suspected CHF after receiving fluid resuscitation and evidence of CHF onCXR. Nephrology consulted for further management. 6. Elevated D dimer - cannot have VQ for 48 hours 2/2 nuclear med stress test this AM. Cannot have CTA chest 2/2 MARILEE. Anticoagulants stopped 2/2 decreased platelets. Hx DVT. 7. Afib with RVR suspect 2/2 sepsis- cardiology following - improved on amio/cardizem/toprol. Stress negative this AM. No anticoagulation with decreased platelets. Echo done, shows EF 65%, afib, RVSP improved from 57 to 29, 1+ MVI/TVI, stable prosthetic valve, moderate left atrium enlargement. 8. Suspect some Acute on chronic diastolic CHF, pulmonary HTN - echo as above. CXR with congestion/pleural effusions - on IV lasix. 9. DMt2 - continue lantus/SSI. orals held. 10. Hx hyperthyroidism - check tsh. methimazole currently held. 11. Depression - paxil 12. Hx DVT - as above 13. Hx MTHFR - heme/onc consulted. 14. COPD - continue pulmicort, duoneb, albuterol. Decrease frequency of albuterol with afib RVR. 15. Hx - s/p TAVR/porcine valve. DVT ppx: SCDs DC planning: PTOT This patient was seen by David Paredes PA-C under the supervision of Doctor Jose Raul. <Juan Blunt - Last Filed: 09/27/19 15:44> Subjective: Had some abdominal pain earlier, but currently feeling better. No chest pain Vitals/I&O's: Vital Signs Temp Pulse Resp BP Pulse Ox 36.5 C L 85 20 H 123/74 H 98 09/27/19 14:00 09/27/19 15:09 09/27/19 14:00 09/27/19 14:00 09/27/19 14:00 Oxygen Flow Rate (L/min) 2 Oxygen Delivery Method Nasal Cannula Weight: 79.1 kg Body Mass Index (BMI) 34.0 Finger Stick Blood Glucose 112 Intake and Output for Last 24 Hours 09/25/19 09/26/19 09/27/19 23:59 23:59 23:59 Intake Total 3848.07 / 3856.42 1341.52 / 1341.52 Output Total 475 / 475 900 / 900 Balance 3373.07 / 3381.42 441.52 / 441.52 General: Alert, Cooperative HEENT: Atraumatic, Normocephalic Oral: Moist Mucosa, No Gingival or Mucosal Lesions/ Ulcerations Neck: No Nodes, Trachea Midline Lungs: Clear to auscultation, Normal air movement, No rhonchi, No wheeze Cardiovascular: Regular rate, Regular Rhythm, Normal S1, Normal S2, No murmurs Abdomen: Bowel Sounds Present, Soft, Non Tender, Tender Extremities: No edema, No Calf Tenderness Skin: No rashes, No breakdown Musculoskeletal: No Tenderness to Palpation of Joints or Extremities, No Muscle Wasting Neurological: - - no clonus. Psych/Mental Status: Normal Affect, Appropriate Microbiology Past 72 Hours 09/26/19 17:55 Stool Enteric Bacteriology - Final Salmonella Sp. 09/27/19 00:01 Mucosa - Nasopharyngeal Rapid RSV (DFA) - Final 09/27/19 00:01 Mucosa - Nasopharyngeal Influenza Types A,B Direct FA (SHANE) - Final 09/25/19 23:49 Stool Stool Occult Blood (SHANE) - Final Occult Blood Positive Laboratory Results 09/25/19 23:57: Diff Path Review Reviewed 09/26/19 08:45: Triglycerides 228 H, Cholesterol 86, LDL Cholesterol 32, VLDL Cholesterol 46 H, HDL Cholesterol 8 L 09/26/19 14:29: Hgb 12.7, Hct 37.6 09/26/19 16:36: POC Glucose 146 H 09/26/19 17:10: APTT 70.0 H 09/26/19 20:40: Hgb 13.3, Hct 38.6 09/26/19 22:38: POC Glucose 239 H 09/26/19 23:05: APTT 48.5 H 09/26/19 23:30: WBC 23.6 H, RBC 4.61, Hgb 13.9, Hct 42.1, MCV 91.3, MCH 30.2, MCHC 33.0, RDW Std Deviation 53.5 H, RDW Coeff of Jeff 15.8 H, Plt Count 92 L, Immature Gran % (Auto) 1.800 H, Neut % (Auto) 78.9 H, Lymph % (Auto) 11.9 L, Morton % (Auto) 7.1, Eos % (Auto) 0.0, Baso % (Auto) 0.3, Absolute Neuts (auto) 18.6 H, Absolute Lymphs (auto) 2.81, Nucleated RBC % 0.1, Differential Comment SCANNED, Diff Path Review Reviewed 09/26/19 23:30: Sodium 133 L, Potassium 4.8, Chloride 106, Carbon Dioxide 13.0 L , Anion Gap 14, BUN 51 H, Creatinine 3.10 H, Estim Creat Clear Calc 11.61, Est GFR (MDRD) Af Amer 19 L, Est GFR (MDRD) Non-Af 16 L, BUN/Creatinine Ratio 16.5, Glucose 311 H, Calcium 7.6 L, Troponin I 3.660 H* 09/26/19 23:59: Specimen Type ART, Sample Site R Brachial, pH 7.26 L, Bicarbonate Actual 10.8 L, POC Total CO2 12, Base Excess -16 L, O2 Saturation 98, O2 % 40, ABG pCO2 24.3 L, ABG pO2 114 H, Constantine Test NA, Respiration Rate 50, O2 Delivery Device Bi / C PAP, EPAP 10, IPAP 24, Blood Gas Notified Whom KEVIN MARTINEZ 09/27/19 02:25: Troponin I 4.450 H* 09/27/19 02:38: Specimen Type CAROLYN, Sample Site R Brachial, O2 % 40, VBG pH 7.29 L, VBG pO2 28, VBG O2 Sat (Calc) 46 L, VBG O2 Content 18 L, VBG Base Excess -10 L, POC Mix VBG pCO2 Pt Tmp 34.1 L, Respiration Rate 12, O2 Delivery Device Bi / C PAP, EPAP 8, IPAP 18, Blood Gas Notified Whom [facility] , Blood Gas Notified Time 235 09/27/19 06:05: WBC 12.0 H, RBC 4.35, Hgb 13.2, Hct 39.5, MCV 90.8, MCH 30.3, MCHC 33.4, RDW Std Deviation 51.8 H, RDW Coeff of Jeff 15.4 H, Plt Count 38 L*, Immature Gran % (Auto) 1.600 H, Neut % (Auto) 86.5 H, Lymph % (Auto) 5.7 L, Morton % (Auto) 4.9, Eos % (Auto) 0.8, Baso % (Auto) 0.5, Absolute Neuts (auto) 10.4 H, Absolute Lymphs (auto) 0.68 L, Nucleated RBC % 0, Differential Comment SCANNED, Diff Path Review Reviewed, Platelet Estimate MKD 09/27/19 06:05: Sodium 135 L, Potassium 4.5, Chloride 105, Carbon Dioxide 16.0 L , Anion Gap 14, BUN 60 H, Creatinine 3.17 H, Estim Creat Clear Calc 11.35, Est GFR (MDRD) Af Amer 18 L, Est GFR (MDRD) Non-Af 15 L, BUN/Creatinine Ratio 18.9, Glucose 266 H, Calcium 7.5 L 09/27/19 06:05: Troponin I 4.120 H* 09/27/19 06:05: APTT 110.7 H* 09/27/19 06:05: Heparin-induced Plt Ab Pending 09/27/19 06:05: PT 19.2 H, INR 1.6, Fibrinogen 428, D-Dimer Quant (PE/DVT) 18.97 H* 09/27/19 06:05: Total Bilirubin 0.70, Direct Bilirubin 0.41 H, AST 990 H, ALT 690 H, Alkaline Phosphatase 72, Total Protein 5.5 L, Albumin 2.3 L, Globulin 3.2 09/27/19 06:05: TSH 0.25 L 09/27/19 06:47: POC Glucose 264 H 09/27/19 12:35: POC Glucose 280 H Current Medications Acetaminophen (Tylenol) 650 mg PO Q4H PRN PRN PRN Reason: pain, temp >38.5 Last Admin: 09/26/19 14:45 Dose: 650 mg Documented by: Albuterol Sulfate (Ventolin Aerosols) 2.5 mg INHALATION Q6H PRN PRN PRN Reason: SOB &/OR WHEEZING Albuterol/Ipratropium (Duoneb) 3 ml INHALATION Q6HWA.RT PENDING SALE TO [facility] Last Admin: 09/27/19 13:31 Dose: 3 ml Documented by: Amiodarone HCl (Cordarone) 200 mg PO DAILY DIAMOND Atorvastatin Calcium (Lipitor) 80 mg PO QHS PENDING SALE TO [facility] Last Admin: 09/27/19 01:42 Dose: 80 mg Documented by: Budesonide (Pulmicort Aerosol) 0.5 mg INHALATION Q12H.RT PENDING SALE TO [facility] Last Admin: 09/27/19 13:31 Dose: 0.5 mg Documented by: Diltiazem HCl (Cardizem Cd) 240 mg PO DAILY PENDING SALE TO [facility] Last Admin: 09/27/19 10:56 Dose: 240 mg Documented by: Fluticasone Propionate (Flonase Nasal [place]) 2 spray NASAL DAILY PENDING SALE TO [facility] Last Admin: 09/27/19 10:59 Dose: 2 spray Documented by: Furosemide (Lasix) 40 mg IV DAILY DIAMOND Glucagon () 1 mg IM .X1 PRN PRN Reason: Hypoglycemia Pantoprazole Sodium 40 mg/ (Sodium Chloride) 110 mls @ 330 mls/hr IV Q12 PENDING SALE TO [facility] Last Infusion: 09/27/19 12:41 Dose: Infused Documented by: Sodium Chloride () 250 mls @ 15 mls/hr IV .[id number] PRN PRN Reason: Saline Flush Dextrose (Dextrose 10%-Water) 250 mls @ 999 mls/hr IV X1 PRN; Protocol PRN Reason: HYPOGLYCEMIA Amiodarone HCl 360 mg/ (Dextrose) 200 mls @ 16.667 mls/hr CONT INF .Q12H PENDING SALE TO [facility] Stop: 09/28/19 07:29 Ceftriaxone Sodium 2 gm/ (Sodium Chloride) 50 mls @ 100 mls/hr IV Q24 DIAMOND Stop: 10/03/19 10:29 Insulin Glargine (Lantus ([facility])) 10 units SC QHS PENDING SALE TO [facility] Last Admin: 09/26/19 22:40 Dose: 10 units Documented by: Insulin Human Lispro (Humalog Kwikpen ([facility])) 0 unit SC ACHS PENDING SALE TO [facility]; Protocol Last Admin: 09/27/19 12:39 Dose: 4 units Documented by: Metoprolol Succinate (Toprol Xl (Beta Isabel)) 25 mg PO BID PENDING SALE TO [facility] Last Admin: 09/27/19 10:56 Dose: 25 mg Documented by: Nystatin (Mycostatin Powder) 1 applic TOPICAL BID PENDING SALE TO [facility]; Protocol Last Admin: 09/27/19 10:59 Dose: 1 applicatio Documented by: Ondansetron HCl (Zofran) 4 mg IV Q8H PRN PRN PRN Reason: NAUSEA/VOMITING Last Admin: 09/26/19 09:10 Dose: 4 mg Documented by: Prochlorperazine Edisylate (Compazine Iv) 10 mg IV Q4H PRN PRN PRN Reason: nausea, vomiting Last Admin: 09/26/19 14:44 Dose: 10 mg Documented by: Sodium Chloride () 10 - 40 ml IV UD PRN PRN Reason: SALINE FLUSH Last Admin: 09/27/19 07:19 Dose: 10 ml Documented by: STROKE Vital Signs/Narrative: Vital Signs Temp Pulse Resp BP BP Pulse Ox 09/27/19 15:09 85 09/27/19 14:00 36.5 C L 90 20 H 123/74 H 98 09/27/19 13:31 106 H 24 H 09/27/19 13:30 94 27 H 135/110 H 97 09/27/19 13:15 93 24 H 134/95 H 96 09/27/19 13:00 97 25 H 133/88 H 99 09/27/19 12:45 93 27 H 125/81 H 97 09/27/19 12:42 93 27 H 125/77 H 97 09/27/19 12:00 93 126/83 H Assessment/Plan Patient seen and examined independently. Data reviewed. I agree with the above note by the physician bookkeeper assistant. 1. afib rvr * improved * Toprol XL and Diltiazem * on oral dilt and metoprolol * anticoagulation held due to worsening thrombocytopenia and * EF 65% 2. NSTEMI * may be due to demand ischemia * stress negative * on metoprolol succinate 3. heme positive stools * h/h stable * general surgery planning on endoscopy as outpt. 4. possible DIC * unclear etiology, though possibly with sepsis * +thrombocytopenia, elevated D-Dimer, INR * hematology on consult 5. Sepsis: * 2/2 Salmonella gastroenteritis * supportive mgmt 6. Salmonella gastroenteritis * ceftriaxone 2g/day 7. MARILEE: * presumed, v CKD * non-oliguric * nephrology following * Per Dr. Tomlinson, ok for PICC line at this time. 8. acute hypoxic respiratory failure * CXR consistent with CHF * gentle diuresis 9. nausea * refractory to ondansetron * add prochloperazine * continue PPI IV 10. VTE proph: SCDs 11. prognosis: guarded. Code Visit Inpatient E&M: 73880 Subs Hosp L3
--- NOTE | 2019-09-27 13:42 | CON.PCM_ITS ---
Reason for Consult Date of Consultation: 09/27/19 Reason for Consultation: marilee History of Present Illness: The patient is a 74 year old F with a past medical history of COPD and hypothyroidism who presented nausea vomiting and diarrhea for 2 days and she was found to be positive for Salmonella. She also had generalized weakness and black stools with coffee-ground emesis but she is on iron supplement at home. Her guaiac was positive. She was also found to be in A. fib RVR and started on amiodarone. Her baseline is 1.2-1.3 creatinine. Her creatinine has been in the 3 range since admission which prompted renal consult. Initial creatinine was 3.6. The patient had a few episodes of hypotension of systolic blood pressure in the 90s and she was given IV Lasix for pulmonary edema since admission. She still complains of right-sided abdominal pain. She states her shortness of breath currently resolved. Her heparin was stopped because her platelets dropped to 38 and work-up for heparin-induced thrombocytopenia was initiated. She denies ever seeing a training director before denies dysuria or hematuria. Past Medical History Past Medical History (Chronic Problems): Chronic Problems (Last Reviewed 09/26/19 @ 11:18 by Cora Guzman PA-C) COPD exacerbation (Chronic) Right bundle branch block (RBBB) (Chronic) Chronic diastolic heart failure (Chronic) Non-rheumatic aortic stenosis (Chronic) Hyperlipidemia (Chronic) Essential (primary) hypertension (Chronic) Secondary pulmonary arterial hypertension (Chronic) H/O aortic valve replacement (Chronic 12/03/16) TAVR: 23 mm Guillaume-Sapiens S3 valve 12/03/2016 Medical History: Medical History (Last Reviewed 09/26/19 @ 11:18 by Cora Guzman PA-C) Right bundle branch block (RBBB) (Chronic) I45.10 Chronic diastolic heart failure (Chronic) I50.32 Non-rheumatic aortic stenosis (Chronic) I35.0 Hyperlipidemia (Chronic) E78.5 Essential (primary) hypertension (Chronic) I10 Secondary pulmonary arterial hypertension (Chronic) I27.21 Type 2 diabetes mellitus E11.9 Anemia D64.9 Anxiety F41.9 Arthritis M19.90 Asthma J45.909 Back problem M53.9 Breast lump N63.0 COPD (chronic obstructive pulmonary disease) J44.9 Carotid artery stenosis I65.29 Carpal tunnel syndrome G56.00 Cataracts, bilateral H26.9 Depression F32.9 Fibromyalgia M79.7 Fibromyalgia M79.7 GERD (gastroesophageal reflux disease) K21.9 H/O transfusion of whole blood Z92.89 H/O: hysterectomy Z98.890, Z90.710 Headache R51 Hormone deficiency E34.8 Hypothyroidism E03.9 IBS (irritable bowel syndrome) K58.9 Kidney disease N28.9 MTHFR mutation E72.12 Neuropathy G62.9 Obesity E66.9 Osteoarthritis M19.90 Osteoporosis M81.0 Pneumonia J18.9 RLS (restless legs syndrome) G25.81 Skin cancer C44.90 Thyroid disease E07.9 Tuberculosis A15.9 UTI (urinary tract infection) N39.0 blood clots Bone fracture T14.8XXA Seasonal allergies J30.2 Allergies ciprofloxacin [From Cipro] Allergy (Verified 05/11/19 12:25) Rash ciprofloxacin HCl [From Cipro] Allergy (Verified 05/11/19 12:25) Rash gabapentin [From Neurontin] Allergy (Verified 05/11/19 12:25) Rash heparin Allergy (Verified 09/27/19 07:59) Low platelets Home Medications: Ambulatory Orders Medication Instructions Recorded Albuterol Aerosols [Ventolin 2.5 mg INHALATION Q4H PRN PRN 09/26/19 Aerosols] Albuterol IH (ProAir) [Proair Hfa 2 puff INHALATION Q6H PRN PRN 09/26/19 (SP)Vent Pts] Aspirin [Aspir 81] 81 mg PO DAILY 09/26/19 Calcium Carbonate/Vitamin D3 1 ea PO TID 09/26/19 [Calcium 500-Vit D3 200 Tablet] Cyanocobalamin (Vitamin B-12) 1,000 mcg PO DAILY 09/26/19 [Vitamin B-12] Diclofenac Sodium [Voltaren] 1 applic TP PRN PRN 09/26/19 Diltiazem CD [Cardizem CD] 240 mg PO DAILY 09/26/19 Fesoterodine Fumarate [Toviaz] 8 mg PO DAILY 09/26/19 Fluticasone 0.05% [Flonase Nasal 2 spray NASAL DAILY 09/26/19 [place]] Fluticasone/Salmeterol [Advair Hfa 2 puff INHALATION BID 09/26/19 115-21 Mcg Inhaler] Furosemide [Lasix] 40 mg PO BIDLX 09/26/19 Insulin Aspart [Novolog Flexpen units SUBCUT TIDCM 09/26/19 ([facility])] Insulin Detemir [Levemir] 50 unit SQ QHS 09/26/19 Iron Polysaccharide Complex 150 mg PO BID 09/26/19 [Ferrex 150] L.acidoph,Paracasei, B.lactis 1 ea PO DAILY 09/26/19 [Probiotic] Linagliptin [Tradjenta] 5 mg PO DAILY 09/26/19 Methimazole 5 mg PO DAILY 09/26/19 Metoprolol Succinate [Toprol Xl] 25 mg PO BID 09/26/19 Nitroglycerin 0.4 mg SL PRN PRN 09/26/19 Nystatin [Nyamyc] 30 gm TP BID 09/26/19 Omeprazole 20 mg PO DAILY 09/26/19 Oxycodone HCl/Acetaminophen 1 tab PO Q8H PRN PRN 09/26/19 [Percocet 10-325 mg Tablet] Paroxetine HCl [Paxil] 40 mg PO DAILY 09/26/19 Potassium Chloride [Klor-Con 10] 20 meq PO DAILY 09/26/19 Roflumilast [Daliresp] 500 mcg PO DAILY 09/26/19 Ropinirole HCl 2 mg PO QHS 09/26/19 Suvorexant [Belsomra] 20 mg PO QHS 09/26/19 Tiotropium [place] [Spiriva] 18 mcg IH DAILY 09/26/19 Tizanidine HCl [Zanaflex] 4 mg PO BID 09/26/19 Surgical History: Surgical History (Last Reviewed 09/26/19 @ 11:18 by Cora Guzman PA-C) H/O aortic valve replacement (Chronic) Onset Date: 12/03/16 Z95.2 TAVR: 23 mm Guillaume-Sapiens S3 valve 12/03/2016 H/O laminectomy Z98.890 History of left heart catheterization Onset Date: 09/03/16 Z98.890 History of tympanoplasty Z98.890 Hx of melanoma excision Z98.890, Z85.820 1997 Hx of removal of cyst Z98.890 Ganglion cyst right wrist Hx of rotator cuff surgery Z98.890 JAIME S/P hip replacement Z96.649 S/p bilateral carpal tunnel release Z98.890 Surgical History: appendectomy - Right hip replacement, back surgery, laminectomy, carpal tunnel surgery, right leg hematoma extraction, hysterectomy, rotator cuff repair, total hip arthroplasty, - - carpal tunnel, RLE DVT Psychiatric History: Anxiety, Depression 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 ENGINEER 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 Lives: Alone Smoking Status: Former smoker Alcohol: None Drugs: None - *Family History Maternal Family History: Family History (Last Reviewed 09/26/19 @ 11:19 by Cora Guzman PA-C) Mother Arthritis Diabetes Hormone deficiency CVA (cerebral vascular accident) Colon cancer Cancer Sister Bleeding disorder CVA (cerebral vascular accident) Colon cancer Daughter Cancer Seizures Father Diabetes Leukemia Grandmother Diabetes Unknown Asthma Heart disease Hypertension High cholesterol Thyroid disorder Osteoporosis Cancer Tuberculosis History Items: No pertinent history Review of Systems Constitutional: Denies: Chills, Fever, Weight Change HEENT: Denies: Head Aches, Sinus Congestion, Sinus Drainage Cardiovascular: Denies: Chest Pain, Palpitations Respiratory: Reports: Cough, - - No shortness of breath Gastrointestinal: Reports: Abdominal Pain, Diarrhea Skin: Reports: Dryness Patient Problems: Active and Suspected Problems (Last Reviewed 09/26/19 @ 11:18 by Cora Guzman PA-C) Atrial fibrillation with RVR (Acute) Non-STEMI (non-ST elevated myocardial infarction) (Acute) Acute renal failure (Acute) Vomiting and diarrhea (Acute) Severe dehydration (Acute) Heme positive stool (Acute) - Physical Exam Vitals/I&O's: Vital Signs Temp Pulse Resp BP Pulse Ox 97.3 F L 93 25 H 129/99 H 100 09/27/19 08:00 09/27/19 10:56 09/27/19 10:14 09/27/19 08:00 09/27/19 10:14 Oxygen Flow Rate (L/min) 3 Oxygen Delivery Method Nasal Cannula Weight: 79.1 kg Body Mass Index (BMI) 34.0 Finger Stick Blood Glucose 112 Intake and Output for Last 24 Hours 09/25/19 09/26/19 09/27/19 23:59 23:59 23:59 Intake Total 3848.07 / 3856.42 1201.52 / 1201.52 Output Total 475 / 475 Balance 3373.07 / 3381.42 1201.52 / 1201.52 General: Alert, Oriented x3, Cooperative HEENT: Atraumatic, PERRLA, EOMI, Normocephalic Neck: Supple, No JVD, Negative Carotid Bruits Lungs: Clear to auscultation, Normal air movement Cardiovascular: Regular rate, No murmurs Abdomen: Bowel Sounds Present, Soft, Non Tender, Obese Extremities: No edema, Capillary Refill Less than 3 Seconds Skin: No rashes, No breakdown Musculoskeletal: No Tenderness to Palpation of Joints or Extremities Neurological: Cranial nerves II-XII grossly intact Psych/Mental Status: Normal Affect, Appropriate Microbiology Past 72 Hours 09/26/19 17:55 Stool Enteric Bacteriology - Final Salmonella Sp. 09/27/19 00:01 Mucosa - Nasopharyngeal Rapid RSV (DFA) - Final 09/27/19 00:01 Mucosa - Nasopharyngeal Influenza Types A,B Direct FA (SHANE) - Final 09/25/19 23:49 Stool Stool Occult Blood (SHANE) - Final Occult Blood Positive Laboratory Results 09/25/19 23:57: Diff Path Review Reviewed 09/26/19 08:45: Triglycerides 228 H, Cholesterol 86, LDL Cholesterol 32, VLDL Cholesterol 46 H, HDL Cholesterol 8 L 09/26/19 14:29: Hgb 12.7, Hct 37.6 09/26/19 16:36: POC Glucose 146 H 09/26/19 17:10: APTT 70.0 H 09/26/19 20:40: Hgb 13.3, Hct 38.6 09/26/19 22:38: POC Glucose 239 H 09/26/19 23:05: APTT 48.5 H 09/26/19 23:30: WBC 23.6 H, RBC 4.61, Hgb 13.9, Hct 42.1, MCV 91.3, MCH 30.2, MCHC 33.0, RDW Std Deviation 53.5 H, RDW Coeff of Jeff 15.8 H, Plt Count 92 L, Immature Gran % (Auto) 1.800 H, Neut % (Auto) 78.9 H, Lymph % (Auto) 11.9 L, [place] % (Auto) 7.1, Eos % (Auto) 0.0, Baso % (Auto) 0.3, Absolute Neuts (auto) 18.6 H, Absolute Lymphs (auto) 2.81, Nucleated RBC % 0.1, Differential Comment SCANNED, Diff Path Review Reviewed 09/26/19 23:30: Sodium 133 L, Potassium 4.8, Chloride 106, Carbon Dioxide 13.0 L , Anion Gap 14, BUN 51 H, Creatinine 3.10 H, Estim Creat Clear Calc 11.61, Est GFR (MDRD) Af Amer 19 L, Est GFR (MDRD) Non-Af 16 L, BUN/Creatinine Ratio 16.5, Glucose 311 H, Calcium 7.6 L, Troponin I 3.660 H* 09/26/19 23:59: Specimen Type ART, Sample Site R Brachial, pH 7.26 L, Bicarbonate Actual 10.8 L, POC Total CO2 12, Base Excess -16 L, O2 Saturation 98, O2 % 40, ABG pCO2 24.3 L, ABG pO2 114 H, [place] Test NA, Respiration Rate 50, O2 Delivery Device Bi / C PAP, EPAP 10, IPAP 24, Blood Gas Notified Whom KEVIN MARTINEZ 09/27/19 02:25: Troponin I 4.450 H* 09/27/19 02:38: Specimen Type CAROLYN, Sample Site R Brachial, O2 % 40, VBG pH 7.29 L, VBG pO2 28, VBG O2 Sat (Calc) 46 L, VBG O2 Content 18 L, VBG Base Excess -10 L, POC Mix VBG pCO2 Pt Tmp 34.1 L, Respiration Rate 12, O2 Delivery Device Bi / C PAP, EPAP 8, IPAP 18, Blood Gas Notified Whom KEVIN MARTINEZ, Blood Gas Notified Time 235 09/27/19 06:05: WBC 12.0 H, RBC 4.35, Hgb 13.2, Hct 39.5, MCV 90.8, MCH 30.3, MCHC 33.4, RDW Std Deviation 51.8 H, RDW Coeff of Jeff 15.4 H, Plt Count 38 L*, Immature Gran % (Auto) 1.600 H, Neut % (Auto) 86.5 H, Lymph % (Auto) 5.7 L, [place] % (Auto) 4.9, Eos % (Auto) 0.8, Baso % (Auto) 0.5, Absolute Neuts (auto) 10.4 H , Absolute Lymphs (auto) 0.68 L, Nucleated RBC % 0, Differential Comment SCANNED, Diff Path Review Reviewed, Platelet Estimate MKD 09/27/19 06:05: Sodium 135 L, Potassium 4.5, Chloride 105, Carbon Dioxide 16.0 L , Anion Gap 14, BUN 60 H, Creatinine 3.17 H, Estim Creat Clear Calc 11.35, Est GFR (MDRD) Af Amer 18 L, Est GFR (MDRD) Non-Af 15 L, BUN/Creatinine Ratio 18.9, Glucose 266 H, Calcium 7.5 L 09/27/19 06:05: Troponin I 4.120 H* 09/27/19 06:05: APTT 110.7 H* 09/27/19 06:05: Heparin-induced Plt Ab Pending 09/27/19 06:05: PT 19.2 H, INR 1.6, Fibrinogen 428, D-Dimer Quant (PE/DVT) 18.97 H* 09/27/19 06:05: Total Bilirubin 0.70, Direct Bilirubin 0.41 H, AST 990 H, ALT 690 H, Alkaline Phosphatase 72, Total Protein 5.5 L, Albumin 2.3 L, Globulin 3.2 09/27/19 06:47: POC Glucose 264 H 09/27/19 12:35: POC Glucose 280 H Current Medications Acetaminophen (Tylenol) 650 mg PO Q4H PRN PRN PRN Reason: pain, temp >38.5 Last Admin: 09/26/19 14:45 Dose: 650 mg Documented by: Albuterol Sulfate (Ventolin Aerosols) 2.5 mg INHALATION Q2H PRN PRN PRN Reason: SOB &/OR WHEEZING Last Admin: 09/27/19 00:15 Dose: 2.5 mg Documented by: Albuterol/Ipratropium (Duoneb) 3 ml INHALATION Q6HWA.RT [facility] Last Admin: 09/27/19 13:31 Dose: 3 ml Documented by: Amiodarone HCl (Cordarone) 200 mg PO DAILY DIAMOND Aspirin (Aspirin, Baby) 81 mg PO DAILY@0800 DIAMOND Atorvastatin Calcium (Lipitor) 80 mg PO QHS [facility] Last Admin: 09/27/19 01:42 Dose: 80 mg Documented by: Budesonide (Pulmicort Aerosol) 0.5 mg INHALATION Q12H.RT [facility] Last Admin: 09/27/19 13:31 Dose: 0.5 mg Documented by: Diltiazem HCl (Cardizem Cd) 240 mg PO DAILY [facility] Last Admin: 09/27/19 10:56 Dose: 240 mg Documented by: Fluticasone Propionate (Flonase Nasal [place]) 2 spray NASAL DAILY [facility] Last Admin: 09/27/19 10:59 Dose: 2 spray Documented by: Furosemide (Lasix) 40 mg IV DAILY [facility] Glucagon () 1 mg IM .X1 PRN PRN Reason: Hypoglycemia Pantoprazole Sodium 40 mg/ (Sodium Chloride) 110 mls @ 330 mls/hr IV Q12 [facility] Last Infusion: 09/27/19 12:41 Dose: Infused Documented by: Sodium Chloride () 250 mls @ 15 mls/hr IV .[id number] PRN PRN Reason: Saline Flush Dextrose (Dextrose 10%-Water) 250 mls @ 999 mls/hr IV X1 PRN; Protocol PRN Reason: HYPOGLYCEMIA Amiodarone HCl 360 mg/ (Dextrose) 200 mls @ 16.667 mls/hr CONT INF .Q12H [facility] Stop: 09/28/19 07:29 Ceftriaxone Sodium 2 gm/ (Sodium Chloride) 50 mls @ 100 mls/hr IV Q24 [facility] Stop: 10/03/19 10:29 Insulin Glargine (Lantus (Bkc)) 10 units SC QHS [facility] Last Admin: 09/26/19 22:40 Dose: 10 units Documented by: Insulin Human Lispro (Humalog Kwikpen (Bkc)) 0 unit SC ACHS [facility]; Protocol Last Admin: 09/27/19 12:39 Dose: 4 units Documented by: Metoprolol Succinate (Toprol Xl (Beta Isabel)) 25 mg PO BID [facility] Last Admin: 09/27/19 10:56 Dose: 25 mg Documented by: Nystatin (Mycostatin Powder) 1 applic TOPICAL BID [facility]; Protocol Last Admin: 09/27/19 10:59 Dose: 1 applicatio Documented by: Ondansetron HCl (Zofran) 4 mg IV Q8H PRN PRN PRN Reason: NAUSEA/VOMITING Last Admin: 09/26/19 09:10 Dose: 4 mg Documented by: Prochlorperazine Edisylate (Compazine Iv) 10 mg IV Q4H PRN PRN PRN Reason: nausea, vomiting Last Admin: 09/26/19 14:44 Dose: 10 mg Documented by: Sodium Chloride () 10 - 40 ml IV UD PRN PRN Reason: SALINE FLUSH Last Admin: 09/27/19 07:19 Dose: 10 ml Documented by: Assessment/Plan All Active Problems (Last Reviewed 09/26/19 @ 11:18 by Cora Guzman PA-C) Atrial fibrillation with RVR (Acute) Non-STEMI (non-ST elevated myocardial infarction) (Acute) Acute renal failure (Acute) Vomiting and diarrhea (Acute) Severe dehydration (Acute) Heme positive stool (Acute) Chronic hypoxemic respiratory failure (Resolved) Colitis (Resolved) GI (gastrointestinal bleed) (Resolved) History of DVT (deep vein thrombosis) (Resolved) Hypomagnesemia (Resolved) Hypothyroidism (Resolved) Iron deficiency anemia (Resolved) Severe aortic stenosis (Resolved) MARILEE prerenal/ATN with fluid depletion hypotension diuresis Metabolic acidosis Pulmonary edema Atrial fibrillation with RVR NSTEMI Diarrhea positive for Salmonella GI bleed Thrombocytopenia\ Okay to continue Lasix once daily for now. We will titrate down when clinical status improves. Check renal ultrasound check a postvoid residual. Repeat a urine analysis Blood pressure currently acceptable. Further work-up as indicated by clinical course. Avoid hypotension nephrotoxins. The above assessment and plan was discussed at length with the patient who voiced understanding and agrees to proceed with the plan as outlined above. She was given the opportunity to ask questions and stated that those were answered to her satisfaction. Thank you very much for allowing me to participate in the care of this patient. Please do not hesitate to call if you have any questions or concerns.
--- NOTE | 2019-09-27 14:21 | US_ITS ---
STUDY: RENAL ULTRASOUND - COMPLETE REASON FOR EXAM: Female, 74 years old. Elevated renal function tests. TECHNIQUE: Ultrasound evaluation of the kidneys was performed with real-time and static lang-scale imaging. COMPARISON: Abdomen and pelvic CT exam of September 25, 2019 FINDINGS: RIGHT KIDNEY: Normal location of the right kidney, which is normal in size. The right kidney measures 11.5 x 5.4 x 5.4 cm. There is a normal cortex of the right kidney. The renal cortex measures 1.5 cm. 11 x 8 x 5 mm cyst. There are no right renal calculi. There is no right hydronephrosis. DISTAL RIGHT URETER: There is non-visualization of the distal right ureter. There is no demonstrated right ureteral jet. LEFT KIDNEY: Normal location of the left kidney, which is normal in size. The left kidney measures 10.3 x 4.4 x 5.3 cm. There is a normal cortex of the left kidney. The renal cortex measures 1.3 cm. There is no left renal mass or cyst. There are no left renal calculi. There is no left hydronephrosis. DISTAL LEFT URETER: There is non-visualization of the distal left ureter. There is no demonstrated left ureteral jet. I BLADDER: The distended urinary bladder has a volume of 156 ml. There is a normal wall thickness of the distended urinary bladder. There is no demonstrated mass within the urinary bladder. There are no demonstrated bladder calculi. US/Kidney and Bladder IMPRESSION: Normal size of the kidneys bilaterally without hydronephrosis or stones. 11 x 8 x 5 mm simple cyst of the right kidney. Unremarkable urinary bladder. Electronically Signed: Svetlana Bradford MD at 17:53 EST , Service support ,
[2019-09-27 14:25] LABS: Thyroid Stim Hormone (TSH) 0.25 uIU/mL (0.358-3.74)
--- NOTE | 2019-09-27 15:11 | NURSING ---
post void residual scan for 67 ml
[2019-09-27 15:35] LABS: Mucous, Urine 0 SEEN /hpf (<or=2+)
[2019-09-27 15:37] LABS: Color, Urine Yellow (Yellow); Glucose, Dipstick 50 mg/dl (Normal); Ketone-Dipstick Negative (Negative); Leukocyte Esterase-Dipstick 500 /ul (Negative); Nitrite-Dipstick Negative (Negative); Occult Blood-Urine 50 /ul (Negative); Protein-Dipstick 30 mg/dl (Negative); Specific Gravity, Urine 1.015 (1.002-1.030); Urine Bilirubin Dipstick Negative (Negative); Urine Clarity Sl. Cloudy (Clear); Urine Urobilinogen Normal (Normal)
[2019-09-27 15:52] LABS: White Blood Cells >100 SEEN /hpf (0-5)
[2019-09-27 15:53] LABS: Amorphous Sediment 1+ URATE; Bacteria RARE /hpf (None Seen); Red Blood Cells-Urine 0-5 SEEN /hpf (0-5); Squamous Epithelial Cells - UA 0-5 SEEN /hpf (5-10)
[2019-09-27 16:06] LABS: Bedside Glucose 291 mg/dL (70-110)
--- NOTE | 2019-09-27 17:50 | CON.PCM_ITS ---
Problem List (1) Thrombocytopenia Status: Acute Comment: Secondary to sepsis versus heparin-induced thrombo cytopenia (2) Sepsis due to Salmonella species with acute hypoxic respiratory failure Status: Acute Qualifiers: Severe sepsis shock status: without septic shock Qualified Code(s): A02.1 - Salmonella sepsis; R65.20 - Severe sepsis without septic shock; J96.01 - Acute respiratory failure with hypoxia (3) Non-STEMI (non-ST elevated myocardial infarction) Status: Acute (4) Atrial fibrillation with RVR Status: Acute (5) Acute renal failure Status: Acute Qualifiers: Acute renal failure type: unspecified Qualified Code(s): N17.9 - Acute kidney failure, unspecified - Consult Date of Consult: 09/27/19 Consultation requested by regarding patient known to Dr. Gutierrez with possible lupus anticoagulant syndrome and now with acute thrombocytopenia. My final recommendation will be communicated by electronic medical records & also discussion with Dr. Méndez. - Reason for Consult History of Present Illness Date of Admission: 09/26/19 Chief Complaint: weakness, nausea, vomiting and diarrhea. The patient is a 74 year old F COPD; and hypothyroidism who presented to emergency department with nausea; vomiting and diarrhea since Tuesday. Complaint of fatigue and shortness of breath along with weakness when she presented to the emergency room. She reported that her stools looked black and she had coffee ground emesis on Tuesday. . At the emergency department her guaiac was positive. Her blood count was 61,000 on admission, but she was not anemic. Also,at the emergency department patient was found to be in A. fib with rapid ventricular response. Also her creatinine was severely elevated above her baseline. Further, troponin was severely elevated. Patient received Cardizem bolus x2; and IV fluids and she continued to be in A. fib with rapid ventricular response. She was started on heparin drip and Cardizem drip. The next day her blood count went up to 91,000, and today it dropped down to 38,000. Has shortness of breath but denies any chest pain. She still have diarrhea and stool culture came back positive for Salmonella. She still has abdominal pain but her stools were more formed today. She has seen Dr. Gutierrez in the past for history of DVT and possible lupus anticoagulant. CBC in June showing normal blood count, lupus anticoagulant was indeterminate, negative for cardiolipin antibodies. She was previously on Xarelto for atrial fibrillation but stopped 6 months ago. She has no history of CVA, and she had a prosthetic aortic valve replacement. History of livedo reticularis. She denies any increased bleeding or bruising. She currently has no chest pain or palpitation. Her heparin/Lovenox was stopped this morning because of thrombocytopenia. Heparin antibody for HIT pending. Past Medical History Past Medical History (Chronic Problems): Chronic Problems (Last Reviewed 09/26/19 @ 04:50 by Brennan Doherty MD) Right bundle branch block (RBBB) (Chronic) Chronic diastolic heart failure (Chronic) Non-rheumatic aortic stenosis (Chronic) Hyperlipidemia (Chronic) Essential (primary) hypertension (Chronic) Secondary pulmonary arterial hypertension (Chronic) H/O aortic valve replacement (Chronic 12/03/16) TAVR: 23 mm Guillaume-Sapiens S3 valve 12/03/2016 Medical History: Medical History (Last Reviewed 09/26/19 @ 04:54 by Brennan Doherty MD) Right bundle branch block (RBBB) (Chronic) I45.10 Chronic diastolic heart failure (Chronic) I50.32 Non-rheumatic aortic stenosis (Chronic) I35.0 Hyperlipidemia (Chronic) E78.5 Essential (primary) hypertension (Chronic) I10 Secondary pulmonary arterial hypertension (Chronic) I27.21 Type 2 diabetes mellitus E11.9 Anemia D64.9 Anxiety F41.9 Arthritis M19.90 Asthma J45.909 Back problem M53.9 Breast lump N63.0 COPD (chronic obstructive pulmonary disease) J44.9 Carotid artery stenosis I65.29 Carpal tunnel syndrome G56.00 Cataracts, bilateral H26.9 Depression F32.9 Fibromyalgia M79.7 Fibromyalgia M79.7 GERD (gastroesophageal reflux disease) K21.9 H/O transfusion of whole blood Z92.89 H/O: hysterectomy Z98.890, Z90.710 Headache R51 Hormone deficiency E34.8 Hypothyroidism E03.9 IBS (irritable bowel syndrome) K58.9 Kidney disease N28.9 MTHFR mutation E72.12 Neuropathy G62.9 Obesity E66.9 Osteoarthritis M19.90 Osteoporosis M81.0 Pneumonia J18.9 RLS (restless legs syndrome) G25.81 Skin cancer C44.90 Thyroid disease E07.9 Tuberculosis A15.9 UTI (urinary tract infection) N39.0 blood clots Bone fracture T14.8XXA Seasonal allergies J30.2 Allergies ciprofloxacin [From Cipro] Allergy (Verified 05/11/19 12:25) Rash ciprofloxacin HCl [From Cipro] Allergy (Verified 05/11/19 12:25) Rash gabapentin [From Neurontin] Allergy (Verified 05/11/19 12:25) Rash Home Medications: Ambulatory Orders Medication Instructions Recorded Albuterol Aerosols [Ventolin 2.5 mg INHALATION Q4H PRN PRN 09/26/19 Aerosols] Albuterol IH (ProAir) [Proair Hfa 2 puff INHALATION Q6H PRN PRN 09/26/19 (SP)Vent Pts] Aspirin [Aspir 81] 81 mg PO DAILY 09/26/19 Calcium Carbonate/Vitamin D3 1 ea PO TID 09/26/19 [Calcium 500-Vit D3 200 Tablet] Cyanocobalamin (Vitamin B-12) 1,000 mcg PO DAILY 09/26/19 [Vitamin B-12] Diclofenac Sodium [Voltaren] 1 applic TP PRN PRN 09/26/19 Diltiazem CD [Cardizem CD] 240 mg PO DAILY 09/26/19 Fesoterodine Fumarate [Toviaz] 8 mg PO DAILY 09/26/19 Fluticasone 0.05% [Flonase Nasal 2 spray NASAL DAILY 09/26/19 [place]] Fluticasone/Salmeterol [Advair Hfa 2 puff INHALATION BID 09/26/19 115-21 Mcg Inhaler] Furosemide [Lasix] 40 mg PO BIDLX 09/26/19 Insulin Aspart [Novolog Flexpen units SUBCUT TIDCM 09/26/19 ([facility])] Insulin Detemir [Levemir] 50 unit SQ QHS 09/26/19 Iron Polysaccharide Complex 150 mg PO BID 09/26/19 [Ferrex 150] L.acidoph,Paracasei, B.lactis 1 ea PO DAILY 09/26/19 [Probiotic] Linagliptin [Tradjenta] 5 mg PO DAILY 09/26/19 Methimazole 5 mg PO DAILY 09/26/19 Metoprolol Succinate [Toprol Xl] 25 mg PO BID 09/26/19 Nitroglycerin 0.4 mg SL PRN PRN 09/26/19 Nystatin [Nyamyc] 30 gm TP BID 09/26/19 Omeprazole 20 mg PO DAILY 09/26/19 Oxycodone HCl/Acetaminophen 1 tab PO Q8H PRN PRN 09/26/19 [Percocet 10-325 mg Tablet] Paroxetine HCl [Paxil] 40 mg PO DAILY 09/26/19 Potassium Chloride [Klor-Con 10] 20 meq PO DAILY 09/26/19 Roflumilast [Daliresp] 500 mcg PO DAILY 09/26/19 Ropinirole HCl 2 mg PO QHS 09/26/19 Suvorexant [Belsomra] 20 mg PO QHS 09/26/19 Tiotropium [place] [Spiriva] 18 mcg IH DAILY 09/26/19 Tizanidine HCl [Zanaflex] 4 mg PO BID 09/26/19 Surgical History: Surgical History (Last Reviewed 09/26/19 @ 04:50 by Brennan Doherty MD) H/O aortic valve replacement (Chronic) Onset Date: 12/03/16 Z95.2 TAVR: 23 mm Guillaume-Sapiens S3 valve 12/03/2016 H/O laminectomy Z98.890 History of left heart catheterization Onset Date: 09/03/16 Z98.890 History of tympanoplasty Z98.890 Hx of melanoma excision Z98.890, Z85.820 1997 Hx of removal of cyst Z98.890 Ganglion cyst right wrist Hx of rotator cuff surgery Z98.890 JAIME S/P hip replacement Z96.649 S/p bilateral carpal tunnel release Z98.890 Surgical History: appendectomy - Right hip replacement, back surgery, laminectomy, carpal tunnel surgery, right leg hematoma extraction, hysterectomy, rotator cuff repair, total hip arthroplasty, - - carpal tunnel, RLE DVT Psychiatric History: Anxiety, Depression 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 Lives: Alone Smoking Status: Former smoker Alcohol: None Drugs: None - *Family History Maternal Family History: Family History (Last Reviewed 09/26/19 @ 04:54 by Brennan Doherty MD) Mother Arthritis Diabetes Hormone deficiency CVA (cerebral vascular accident) Colon cancer Cancer Sister Bleeding disorder CVA (cerebral vascular accident) Colon cancer Daughter Cancer Seizures Father Diabetes Leukemia Grandmother Diabetes Unknown Asthma Heart disease Hypertension High cholesterol Thyroid disorder Osteoporosis Cancer Tuberculosis Review of Systems Constitutional: Denies: Chills, Fever, Weight Change HEENT: Denies: Head Aches, Sinus Congestion, Sinus Drainage Cardiovascular: Denies: Chest Pain, Palpitations Respiratory: Reports: Shortness of Breath. Denies: Cough, hemoptysis sputum production Gastrointestinal: Reports: diffuse abdominal pain, Diarrhea, Nausea, Melena, Vomiting Genitourinary: Reports: Dysuria Musculoskeletal: Denies: Joint Pain, Joint Tenderness Skin: Denies: Rash, Wounds Neurological: Denies: Numbness, Tingling, Focal weakness Psychiatric: Denies: Anxiety, Depression, Homicidal Ideations, Suicidal Ideations Hematologic/ Lymphatic: Denies: Easy Bruising, Easy Bleeding Atrial fibrillation with RVR (Acute) Non-STEMI (non-ST elevated myocardial infarction) (Acute) Acute renal failure (Acute) Vomiting and diarrhea (Acute) Severe dehydration (Acute) - Physical Exam Vitals/I&O's: Intake and Output for Last 24 Hours 09/25/19 09/26/19 09/27/19 23:59 23:59 23:59 Intake Total 3848.07 / 3856.42 1391.77 / 1391.77 Output Total 475 / 475 900 / 900 Balance 3373.07 / 3381.42 491.77 / 491.77 Vital Signs - 24 hr Temp Pulse Resp BP BP Pulse Ox 09/27/19 16:00 83 24 H 112/66 97 09/27/19 15:09 85 09/27/19 15:00 92 23 H 141/93 H 97 09/27/19 14:00 97.7 F L 90 20 H 123/74 H 98 09/27/19 13:31 106 H 24 H 09/27/19 13:30 94 27 H 135/110 H 97 09/27/19 13:15 93 24 H 134/95 H 96 09/27/19 13:00 97 25 H 133/88 H 99 09/27/19 12:45 93 27 H 125/81 H 97 09/27/19 12:42 93 27 H 125/77 H 97 09/27/19 12:00 93 126/83 H 09/27/19 11:00 92 20 H 100/76 92 09/27/19 10:56 93 09/27/19 10:14 89 25 H 100 09/27/19 10:00 97.7 F L 94 18 127/75 H 98 09/27/19 09:00 93 28 H 131/81 H 95 09/27/19 08:00 97.3 F L 92 22 H 129/99 H 99 09/27/19 07:25 112 H 25 H 09/27/19 07:00 88 21 H 126/78 H 09/27/19 06:47 89 09/27/19 05:30 90 21 H 100 09/27/19 04:00 97.1 F L 89 24 H 98/78 100 09/27/19 03:00 97.8 F 94 25 H 109/78 99 09/27/19 02:59 100 09/27/19 02:25 96 31 H 99 09/27/19 01:54 104 H 09/27/19 00:15 118 H 35 H 09/27/19 00:00 117 H 41 H 142/107 H 100 09/26/19 23:57 130 H 45 H 99 09/26/19 22:59 113 H 09/26/19 22:56 112 H 130/102 H 09/26/19 22:00 97.7 F L 108 H 34 H 130/102 H 94 09/26/19 21:15 91 31 H 97 09/26/19 21:00 98 35 H 122/72 H 98 09/26/19 20:00 99 26 H 125/73 H 97 09/26/19 19:00 83 22 H 112/63 100 09/26/19 18:56 89 General: Alert, Oriented x3, Cooperative HEENT: Atraumatic, PERRLA, EOMI, Normocephalic Neck: Supple, No JVD, Negative Carotid Bruits Lungs: Clear to auscultation, Normal air movement, Tachypneic Cardiovascular: Normal S1, Normal S2, No murmurs, Irregular Rate, Tachycardic Abdomen: Bowel Sounds Present, Soft, + Tender palpation, no guarding or rebound tenderness. Extremities: No edema, Capillary Refill Less than 3 Seconds Skin: No rashes, No breakdown + livedo reticularis on lower extremity; no petechiae Musculoskeletal: No Tenderness to Palpation of Joints or Extremities Neurological: Cranial nerves II-XII grossly intact Psych/Mental Status: Normal Affect, Appropriate Microbiology Past 72 Hours 09/26/19 17:55 Stool Enteric Bacteriology - Final Salmonella Sp. 09/27/19 00:01 Mucosa - Nasopharyngeal Rapid RSV (DFA) - Final 09/27/19 00:01 Mucosa - Nasopharyngeal Influenza Types A,B Direct FA (SHANE) - Final 09/25/19 23:49 Stool Stool Occult Blood (SHANE) - Final Occult Blood Positive Laboratory Results 09/26/19 08:45: Triglycerides 228 H, Cholesterol 86, LDL Cholesterol 32, VLDL Cholesterol 46 H, HDL Cholesterol 8 L 09/26/19 20:40: Hgb 13.3, Hct 38.6 09/26/19 22:38: POC Glucose 239 H 09/26/19 23:05: APTT 48.5 H 09/26/19 23:30: WBC 23.6 H, RBC 4.61, Hgb 13.9, Hct 42.1, MCV 91.3, MCH 30.2, MCHC 33.0, RDW Std Deviation 53.5 H, RDW Coeff of Jeff 15.8 H, Plt Count 92 L, Immature Gran % (Auto) 1.800 H, Neut % (Auto) 78.9 H, Lymph % (Auto) 11.9 L, Jack % (Auto) 7.1, Eos % (Auto) 0.0, Baso % (Auto) 0.3, Absolute Neuts (auto) 18.6 H, Absolute Lymphs (auto) 2.81, Nucleated RBC % 0.1, Differential Comment SCANNED, Diff Path Review Reviewed 09/26/19 23:30: Sodium 133 L, Potassium 4.8, Chloride 106, Carbon Dioxide 13.0 L , Anion Gap 14, BUN 51 H, Creatinine 3.10 H, Estim Creat Clear Calc 11.61, Est GFR (MDRD) Af Amer 19 L, Est GFR (MDRD) Non-Af 16 L, BUN/Creatinine Ratio 16.5, Glucose 311 H, Calcium 7.6 L, Troponin I 3.660 H* 09/26/19 23:59: Specimen Type ART, Sample Site R Brachial, pH 7.26 L, Bicarbonate Actual 10.8 L, POC Total CO2 12, Base Excess -16 L, O2 Saturation 98, O2 % 40, ABG pCO2 24.3 L, ABG pO2 114 H, [place] Test NA, Respiration Rate 50, O2 Delivery Device Bi / C PAP, EPAP 10, IPAP 24, Blood Gas Notified Whom HOSP 09/27/19 02:25: Troponin I 4.450 H* 09/27/19 02:38: Specimen Type CAROLYN, Sample Site R Brachial, O2 % 40, VBG pH 7.29 L, VBG pO2 28, VBG O2 Sat (Calc) 46 L, VBG O2 Content 18 L, VBG Base Excess -10 L, POC Mix VBG pCO2 Pt Tmp 34.1 L, Respiration Rate 12, O2 Delivery Device Bi / C PAP, EPAP 8, IPAP 18, Blood Gas Notified Whom KEVIN MARTINEZ, Blood Gas Notified Time 235 09/27/19 06:05: WBC 12.0 H, RBC 4.35, Hgb 13.2, Hct 39.5, MCV 90.8, MCH 30.3, MCHC 33.4, RDW Std Deviation 51.8 H, RDW Coeff of Jeff 15.4 H, Plt Count 38 L*, Immature Gran % (Auto) 1.600 H, Neut % (Auto) 86.5 H, Lymph % (Auto) 5.7 L, Jack % (Auto) 4.9, Eos % (Auto) 0.8, Baso % (Auto) 0.5, Absolute Neuts (auto) 10.4 H , Absolute Lymphs (auto) 0.68 L, Nucleated RBC % 0, Differential Comment SCANNED, Diff Path Review Reviewed, Platelet Estimate MKD 09/27/19 06:05: Sodium 135 L, Potassium 4.5, Chloride 105, Carbon Dioxide 16.0 L , Anion Gap 14, BUN 60 H, Creatinine 3.17 H, Estim Creat Clear Calc 11.35, Est GFR (MDRD) Af Amer 18 L, Est GFR (MDRD) Non-Af 15 L, BUN/Creatinine Ratio 18.9, Glucose 266 H, Calcium 7.5 L 09/27/19 06:05: Troponin I 4.120 H* 09/27/19 06:05: APTT 110.7 H* (on heparin) 09/27/19 06:05: Heparin-induced Plt Ab Pending 09/27/19 06:05: PT 19.2 H, INR 1.6, Fibrinogen 428, D-Dimer Quant (PE/DVT) 18.97 H* 09/27/19 06:05: Total Bilirubin 0.70, Direct Bilirubin 0.41 H, AST 990 H, ALT 690 H, Alkaline Phosphatase 72, Total Protein 5.5 L, Albumin 2.3 L, Globulin 3.2 09/27/19 06:05: TSH 0.25 L 09/27/19 06:47: POC Glucose 264 H 09/27/19 12:35: POC Glucose 280 H 09/27/19 14:55: Urine Color Yellow, Urine Clarity Sl. Cloudy, Urine pH 6.0, Ur Specific [place] 1.015, Urine Protein 30 H, Urine Glucose (UA) 50 H, Urine Ketones Negative, Urine Occult Blood 50 H, Urine Nitrite Negative, Urine Bilirubin Negative, Urine Urobilinogen Normal, Ur Leukocyte Esterase 500 H, Urine RBC 0-5 SEEN, Urine WBC >100 SEEN, Ur Squamous Epith Cells 0-5 SEEN, Amorphous Sediment 1+ URATE, Urine Bacteria RARE, Urine Mucus 0 SEEN 09/27/19 15:52: POC Glucose 291 H Perpherial blood smear showed toxic granulation, leukocytosis, platelet is decreased, large and giant platelets present without clumping. No schistocytes or reticulocytosis Assessment/Plan All Active Problems (Last Reviewed 09/26/19 @ 04:50 by Brennan Doherty MD) The patient is a 74 year old F COPD; and hypothyroidism who presented to emergency department with nausea, vomiting and diarrhea with coffee ground emesis; and melena; positive occult stools and found to have Afib with RVR; and elevated troponin consistent with NSTEMI. 1) NSTEMI with A fib w/ RVR Troponin was 1.110 at the ED. EKG showed A. fib with RVR. -HemoDynamically stable -followed by cardiology -Avoid aspirin and heparin because of GI bleeding and possible HIT 2) MARILEE -Secondary to sepsis & dehydration and diarrhea. -Continue IV hydration. -Follow by nephrology 3) Acute Salmonella sepsis with hypoxemia Patient with nausea vomiting and diarrhea and positive occult stools. -On antibiotic and followed by general surgery 4) Thrombocytopenia probably secondary to sepsis; although HIT likely given the acute presentation and drop in her platelet counts within 48 hours of admission. -Awaiting heparin antibody -Avoid aspirin and heparin and low molecular weight heparin -If she require anticoagulation for DVT/PE, will need Bivalitudin 5) History of DVT and possible lupus anticoagulants syndrome -Could consider repeating lupus anticoagulant test again in couple months -Repeat PT/PTT off heparin tomorrow. -Eliquis can be used if her platelet count recovered and Salmonella infection resolved. CC: Dr. Pee Gutierrez, Dr. Juan Blunt, Dr. Darwin Méndez, Dr. Aj Tomlinson, Yesenia Young, [employer]YWALL [employer]IP[employer] HELPER-c
[2019-09-27 22:11] LABS: Bedside Glucose 371 mg/dL (70-110)
[2019-09-27] MEDS: Pramipexole Di-HCl 1 MG Tablet PO (23:23)
[2019-09-28] VITALS (24 sets, daily range): BP systolic 90–128; BP diastolic 52–103; PULSE 65–81; RESP 15–26; TEMP 36.2–36.7; O2SAT 93–97
[2019-09-28] MEDS: Amiodarone 200 MG Tablet PO (06:23)
[2019-09-28] MEDS: Insulin Lispro 100 UNIT/ML INSULN.PEN SC ×4 (06:39→21:51)
[2019-09-28 06:44] LABS: Absolute Lymphocyte Count 1.18 X10^3/uL (0.83-4.51); Absolute Neutrophil Count 18.6 X10^3/uL (2.0-7.7); Basophil# 0.07 X10^3/uL; Basophil% 0.3 % (0-1); Eosinophil# 0.03 X10^3/uL; Eosinophils% 0.1 % (0-5); Hematocrit 36.8 % (37-47); Hemoglobin 12.6 g/dL (12.0-15.0); Lymphocyte # 1.18 X10^3/ul (4.0); Lymphocyte % 5.6 % (19-41); Mean Corp Hgb Conc 34.2 g/dL (32-36); Mean Corpuscular Hgb 30.7 pg (27.0-32.0); Mean Corpuscular Volume 89.5 fL (81-99); Monocyte# 0.78 X10^3/uL; Monocyte% 3.7 % (0-10); NRBC Flagged by Analyzer 0 % (0-5); Neutrophil % 88.7 % (47-70); RBC Distribution Width CV 15.6 % (11.6-14.6); RBC Distribution Width SD 51.7 fl (35.1-43.9); Red Blood Count 4.11 M/mm3 (4.2-5.4)
[2019-09-28 06:50] LABS: Bedside Glucose 251 mg/dL (70-110)
[2019-09-28 06:51] LABS: Immature Platelet Fraction 20.5 % (1.0-7.9); POSITIVE COUNT YES; Platelet Count 46 K/mm3 (150-450); RET-HE 27.9 pg (30-35); Reticulocyte Count 1.23 % (0.5-1.5)
[2019-09-28 06:53] LABS: Differential Indicated SCAN CRITERIA MET; Platelet Count 46 K/mm3 (150-450)
[2019-09-28 07:04] LABS: ALB/GLOB Ratio 0.7 RATIO (0.9-2.4); AST(SGOT) 487 U/L (15-37); Alanine Aminotransfer ALT/SGPT 804 U/L (13-56); Alkaline Phosphatase 65 U/L (45-117); Anion Gap 9 (5-15); BUN 64 mg/dL (7-18); BUN/Creat Ratio 25.7 RATIO (10-20); Calcium,Total 7.4 mg/dL (8.5-10.1); Chloride 103 mmol/L (98-107); Creatinine, Serum 2.49 mg/dL (0.55-1.02); EST Glomerular Filtration Rate 20 mL/min (>60); Est Glom Filt Rate - Afr Amer 24 mL/min (>60); Estimated Creatinine Clearance 14.45 ml/min; Glucose 319 mg/dL (74-106); Potassium 3.7 mmol/L (3.5-5.1); Sodium Level 135 mmol/L (136-145)
[2019-09-28 07:09] LABS: International Normalized Ratio 1.4; LDH 453 U/L (84-246); Partial Thromboplast Time 40.6 Seconds (24.1-36.2); Prothrombin Time (Protime)PT. 17.1 SECONDS (11.7-14.9)
[2019-09-28 07:21] LABS: Differential Comment SCANNED
[2019-09-28 07:22] LABS: Platelet Estimate MKD DEC (ADEQ)
[2019-09-28] MEDS: Ipratropium/Albuterol Sulfate 3 ML AMPUL.NEB INHALATION ×2 (07:29→19:33)
[2019-09-28] MEDS: Budesonide Respules 0.5 MG/2 ML AMPUL.NEB. INHALATION ×2 (07:29→19:33)
--- NOTE | 2019-09-28 08:24 | PCM.PN.CARD ---
Subjectve: Patient seen and examined this morning. No 24-hour events. Telemetry showed normal sinus rhythm with rare PACs. Amiodarone drip transition to p.o. amiodarone. EKG pending this morning. Objective: Vital Signs Temp Pulse Resp BP Pulse Ox 97.2 F L 67 19 H 92/66 97 09/28/19 08:00 09/28/19 08:00 09/28/19 08:00 09/28/19 08:00 09/28/19 08:00 Oxygen Flow Rate (L/min) 2 Oxygen Delivery Method Nasal Cannula Weight: 174 lb 6.17 oz Body Mass Index (BMI) 34.0 Finger Stick Blood Glucose 112 Intake and Output for Last 24 Hours 09/26/19 09/27/19 09/28/19 23:59 23:59 23:59 Intake Total 3848.07 / 3856.42 2021.46 / 2038.16 141.81 / 141.81 Output Total 475 / 475 2375 / 2375 200 / 200 Balance 3373.07 / 3381.42 -353.54 / -336.84 -58.19 / -58.19 General: Awake, Alert, Oriented x 3 HEENT: PERRL, EOMI, Sclera Non Icteric Neck: Supple, Good ROM, No Lymph Node Enlargement Lungs: Clear to auscultation Cardiovascular: Regular Rhythm, Normal S2, No Murmurs, No Rubs, No Gallops Murmur Murmur: Grade 2/6, Crescendo-Decrescendo Vascular: No Carotid Bruits, Normal Femoral Pulses, Normal Radial Pulses, Normal Dorsalis Pedal Pulse, Normal Posterior Tibial Pulses Abdomen: Bowel Sounds Present, Soft, Non Tender, No HSM, No Organomegaly Extremities: No Cyanosis, No Clubbing, No edema Neurological: No Focal Motor or Sensory Deficit 09/27/19 06:05: APTT 110.7 H* 09/27/19 06:05: PT 19.2 H, INR 1.6, D-Dimer Quant (PE/DVT) 18.97 H* 09/27/19 06:05: Total Bilirubin 0.70, Direct Bilirubin 0.41 H 09/27/19 14:55: Urine Color Yellow, Urine Clarity Sl. Cloudy, Urine pH 6.0, Ur Specific [place] 1.015, Urine Protein 30 H, Urine Glucose (UA) 50 H, Urine Ketones Negative, Urine Occult Blood 50 H, Urine Nitrite Negative, Urine Bilirubin Negative, Urine Urobilinogen Normal, Ur Leukocyte Esterase 500 H, Urine RBC 0-5 SEEN, Urine WBC >100 SEEN 09/28/19 : WBC 21.0 H, RBC 4.11 L, Hgb 12.6, Hct 36.8 L, MCV 89.5, MCH 30.7, MCHC 34.2, Plt Count 46 L*, Immature Gran % (Auto) 1.600 H, Neut % (Auto) 88.7 H, Lymph % (Auto) 5.6 L, [place] % (Auto) 3.7, Eos % (Auto) 0.1, Baso % (Auto) 0.3, Absolute Neuts (auto) 18.6 H, Nucleated RBC % 0 09/28/19 : Sodium 135 L, Potassium 3.7, Chloride 103, Carbon Dioxide 23.0, Anion Gap 9, BUN 64 H, Creatinine 2.49 H, Est GFR (MDRD) Af Amer 24 L, Est GFR (MDRD) Non-Af 20 L, BUN/Creatinine Ratio 25.7 H, Glucose 319 H, Calcium 7.4 L, Total Bilirubin 0.60 09/28/19 : PT 17.1 H, INR 1.4, APTT 40.6 H Rhythm: EKG: ECHO: Stress Test: Cardiac Cath: PCI: CT Surgery: Holter monitor: EPS: PPM: CXR: Chest CT Scan: Medical Necessity - Tobacco Use Smoking Status: Former smoker Assessment/Plan 1. Atrial fibrillation: The patient presents with several days of nausea, vomiting, diarrhea, dehydration, acute on chronic renal insufficiency, rapid atrial fibrillation refractory to IV Cardizem and IV beta-gunjan, eventually corrected with IV amiodarone drip. In addition she had substernal chest pain and pressure and had a non-ST elevation myocardial infarction most likely due to demand ischemia from her known nonobstructive coronary disease and her rapid atrial fibrillation. Superimposed on this is a history of possible coffee-ground emesis, and black tarry stools although she is on iron therapy. Patient's heart rhythm has maintained normal sinus rhythm with rare PACs with IV amiodarone drip. We will transition IV amiodarone to p.o. amiodarone 200 mg p.o. daily going forward. Recommend keeping the patient on amiodarone 200 mg p.o. daily for the rest of her life in order to maintain normal sinus rhythm. The patient will most likely require long-term anticoagulation therapy given her history of DVT, sedentary lifestyle, and paroxysmal atrial fibrillation. In addition she will be started back on her Cardizem CD to 240 mg daily, and her Toprol-XL 25 mg p.o. twice daily. If the patient's blood pressure decreases, we can reduce the Toprol XL to 25 mg p.o. daily. 2. Non-STEMI: The patient had an abnormal troponin, and substernal chest pain when she was undergoing rapid atrial fibrillation. Given the patient's upper GI bleeding issues and anemia, she may not be a good candidate for intervention until this is well-healed. An echocardiogram was obtained this admission showed essentially intact LV function with an EF of 65%, and an RVSP of 29 mmHg which is an improvement from her previous echocardiogram at which time her PA pressures were in the mid 50s. In addition her TAVR appears to be operating normally. Given the patient's acute on chronic renal insufficiency, possible recent GI bleeding, we pursued a non-walking nuclear stress test on 09/27/2019 which was negative for inducible ischemia. Would not recommend diagnostic catheterization at this time particularly in light of her hematologic issues. Should she require intervention she is not a good candidate for heparin based intervention but rather bivalirudin would be indicated. It appears the patient may have lupus anticoagulant per our conversation with hematology, and Dr. Ricardo, and appreciate his input. This is yet another reason for long-term anticoagulation as well, most likely with renally adjusted Eliquis. In addition, I would hold off on catheterization until her creatinine has normalized or at the very least improved. Recommend renal consultation to evaluate her renal insufficiency. 3. Hyperlipidemia: Recommend obtaining a fasting blood profile. 4. TAVR: The patient's echocardiogram shows normal functioning and stable TAVR, no vegetations noted. 5. Thrombocytopenia: I recommended the patient be made allergic to heparin and heparin products, Lovenox, and all heparin flushes be discontinued. A HIT profile has been sent with results pending. Should the patient require anticoagulation she will need bivalirudin until this is evaluated more thoroughly. According to hematology it is felt the patient most likely has lupus anticoagulant to explain her coagulopathy at this time. We await her platelet results today. 6. Anemia: Patient has been labeled as having GI bleeding however her hemoglobin has remained relatively stable. It appears that she is contracted Salmonella which will need to be investigated most likely with the health department if possible to trace back at source. This may also be contributing to her coagulopathy as well. Code Visit Inpatient E&M: 44335 Subs Hosp L2
[2019-09-28 08:50] LABS: T4 Free Direct 1.79 ng/dL (0.76-1.46)
--- NOTE | 2019-09-28 09:18 | PN.SURG_ITS ---
Patient Problems: Active and Suspected Problems (Last Reviewed 09/26/19 @ 11:18 by Cora Guzman PA-C) Thrombocytopenia (Acute) Secondary to sepsis versus heparin-induced thrombocytopenia Sepsis due to Salmonella species with acute hypoxic respiratory failure (Acute) Atrial fibrillation with RVR (Acute) Non-STEMI (non-ST elevated myocardial infarction) (Acute) Acute renal failure (Acute) Vomiting and diarrhea (Acute) Severe dehydration (Acute) Heme positive stool (Acute) Subjective: Patient states her stool is starting to become more formed, also states her abdominal pain is improving especially in the right upper quadrant, patient had gallbladder ultrasound showed no gallstones, 2 mm gallbladder wall, no pericholecystic fluid, normal common bile duct. - Physical Exam Vitals/I&O's: Vital Signs Temp Pulse Resp BP Pulse Ox 97.2 F L 75 23 H 113/99 H 95 09/28/19 08:00 09/28/19 09:00 09/28/19 09:00 09/28/19 09:00 09/28/19 09:00 Oxygen Flow Rate (L/min) 2 Oxygen Delivery Method Nasal Cannula Weight: 174 lb 6.17 oz Body Mass Index (BMI) 34.0 Finger Stick Blood Glucose 112 Intake and Output for Last 24 Hours 09/26/19 09/27/19 09/28/19 23:59 23:59 23:59 Intake Total 3848.07 / 3856.42 2021.46 / 2038.16 158.51 / 158.51 Output Total 475 / 475 2375 / 2375 200 / 200 Balance 3373.07 / 3381.42 -353.54 / -336.84 -41.49 / -41.49 General: Alert, Oriented x3, Cooperative, No apparent distress Lungs: Normal air movement Abdomen: Soft, Non-Distended, Tender - In the right upper quadrant and lower quadrants, improved from yesterday, no peritoneal signs Extremities: No clubbing, No cyanosis, No edema Neurological: Cranial nerves II-XII grossly intact Psych/Mental Status: Normal Affect Microbiology Past 72 Hours 09/26/19 17:55 Stool Enteric Bacteriology - Final Salmonella Sp. 09/27/19 00:01 Mucosa - Nasopharyngeal Rapid RSV (DFA) - Final 09/27/19 00:01 Mucosa - Nasopharyngeal Influenza Types A,B Direct FA (SHANE) - Final 09/25/19 23:49 Stool Stool Occult Blood (SHANE) - Final Occult Blood Positive Laboratory Results 09/26/19 23:30: Diff Path Review Reviewed 09/27/19 06:05: Diff Path Review Reviewed 09/27/19 06:05: APTT 110.7 H* 09/27/19 06:05: D-Dimer Quant (PE/DVT) 18.97 H* 09/27/19 06:05: TSH 0.25 L 09/27/19 12:35: POC Glucose 280 H 09/27/19 14:55: Urine Color Yellow, Urine Clarity Sl. Cloudy, Urine pH 6.0, Ur Specific [place] 1.015, Urine Protein 30 H, Urine Glucose (UA) 50 H, Urine Ketones Negative, Urine Occult Blood 50 H, Urine Nitrite Negative, Urine Bilirubin Negative, Urine Urobilinogen Normal, Ur Leukocyte Esterase 500 H, Urine RBC 0-5 SEEN, Urine WBC >100 SEEN, Ur Squamous Epith Cells 0-5 SEEN, Amorphous Sediment 1+ URATE, Urine Bacteria RARE, Urine Mucus 0 SEEN 09/27/19 15:52: POC Glucose 291 H 09/27/19 22:00: POC Glucose 371 H 09/28/19 06:37: POC Glucose 251 H 09/28/19 : WBC 21.0 H, RBC 4.11 L, Hgb 12.6, Hct 36.8 L, MCV 89.5, MCH 30.7, MCHC 34.2, RDW Std Deviation 51.7 H, RDW Coeff of Jeff 15.6 H, Plt Count 46 L*, Immature Gran % (Auto) 1.600 H, Neut % (Auto) 88.7 H, Lymph % (Auto) 5.6 L, [place] % (Auto) 3.7, Eos % (Auto) 0.1, Baso % (Auto) 0.3, Absolute Neuts (auto) 18.6 H, Absolute Lymphs (auto) 1.18, Nucleated RBC % 0, Differential Comment SCANNED, Diff Path Review May rakel, Platelet Estimate MKD DEC, Immature Plt Fraction 20.5 H, Retic Count 1.23, Immature Retic Fraction 6.90, Retic Hgb Equivalent 27.9 L 09/28/19 : Sodium 135 L, Potassium 3.7, Chloride 103, Carbon Dioxide 23.0, Anion Gap 9, BUN 64 H, Creatinine 2.49 H, Estim Creat Clear Calc 14.45, Est GFR (MDRD) Af Amer 24 L, Est GFR (MDRD) Non-Af 20 L, BUN/Creatinine Ratio 25.7 H, Glucose 319 H, Calcium 7.4 L, Total Bilirubin 0.60, AST 487 H, ALT 804 H, Alkaline Phosphatase 65, Total Protein 5.0 L, Albumin 2.0 L, Globulin 3.0, Albumin/Globulin Ratio 0.7 L 09/28/19 : PT 17.1 H, INR 1.4, APTT 40.6 H 09/28/19 : Immature Plt Fraction Cancelled, Retic Count Cancelled, Immature Retic Fraction Cancelled, Retic Hgb Equivalent Cancelled 09/28/19 : Lactate Dehydrogenase 453 H 09/28/19 : Free T4 1.79 H Current Medications Albuterol Sulfate (Ventolin Aerosols) 2.5 mg INHALATION Q6H PRN PRN PRN Reason: SOB &/OR WHEEZING Albuterol/Ipratropium (Duoneb) 3 ml INHALATION Q6HWA.RT [facility] Last Admin: 09/28/19 07:29 Dose: 3 ml Documented by: Amiodarone HCl (Cordarone) 200 mg PO DAILY [facility] Last Admin: 09/28/19 06:23 Dose: 200 mg Documented by: Atorvastatin Calcium (Lipitor) 80 mg PO QHS [facility] Last Admin: 09/27/19 22:02 Dose: 80 mg Documented by: Budesonide (Pulmicort Aerosol) 0.5 mg INHALATION Q12H.RT [facility] Last Admin: 09/28/19 07:29 Dose: 0.5 mg Documented by: Diltiazem HCl (Cardizem Cd) 240 mg PO DAILY [facility] Last Admin: 09/27/19 10:56 Dose: 240 mg Documented by: Fluticasone Propionate (Flonase Nasal [place]) 2 spray NASAL DAILY [facility] Last Admin: 09/27/19 10:59 Dose: 2 spray Documented by: Furosemide (Lasix) 40 mg IV DAILY [facility] Last Admin: 09/27/19 15:49 Dose: 40 mg Documented by: Glucagon () 1 mg IM .X1 PRN PRN Reason: Hypoglycemia Pantoprazole Sodium 40 mg/ (Sodium Chloride) 110 mls @ 330 mls/hr IV Q12 [facility] Last Infusion: 09/27/19 23:31 Dose: Infused Documented by: Sodium Chloride () 250 mls @ 15 mls/hr IV .[id number] PRN PRN Reason: Saline Flush Last Infusion: 09/27/19 18:39 Dose: 0 mls/hr Documented by: Dextrose (Dextrose 10%-Water) 250 mls @ 999 mls/hr IV X1 PRN; Protocol PRN Reason: HYPOGLYCEMIA Ceftriaxone Sodium 2 gm/ (Sodium Chloride) 50 mls @ 100 mls/hr IV Q24 [facility] Stop: 10/03/19 10:29 Last Infusion: 09/27/19 17:13 Dose: Infused Documented by: Insulin Glargine (Lantus ([facility])) 10 units SC QHS [facility] Last Admin: 09/27/19 22:03 Dose: 10 units Documented by: Insulin Human Lispro (Humalog Kwikpen ([facility])) 0 unit SC ACHS [facility]; Protocol Last Admin: 09/28/19 06:39 Dose: 3 units Documented by: Metoprolol Succinate (Toprol Xl (Beta Isabel)) 25 mg PO BID [facility] Last Admin: 09/27/19 22:02 Dose: 25 mg Documented by: Nystatin (Mycostatin Powder) 1 applic TOPICAL BID [facility]; Protocol Last Admin: 09/27/19 22:06 Dose: 1 applicatio Documented by: Ondansetron HCl (Zofran) 4 mg IV Q8H PRN PRN PRN Reason: NAUSEA/VOMITING Last Admin: 09/26/19 09:10 Dose: 4 mg Documented by: Pramipexole Dihydrochloride (Mirapex) 1 mg PO QHS [facility] Last Admin: 09/27/19 23:23 Dose: 1 mg Documented by: Prochlorperazine Edisylate (Compazine Iv) 10 mg IV Q4H PRN PRN PRN Reason: nausea, vomiting Last Admin: 09/26/19 14:44 Dose: 10 mg Documented by: Sodium Chloride () 10 - 40 ml IV UD PRN PRN Reason: SALINE FLUSH Last Admin: 09/27/19 22:12 Dose: 20 ml Documented by: Medical Necessity - Tobacco Use Smoking Status: Former smoker Assessment/Plan All Active Problems (Last Reviewed 09/26/19 @ 11:18 by Cora Guzman PA-C) Thrombocytopenia (Acute) Sepsis due to Salmonella species with acute hypoxic respiratory failure (Acute) Atrial fibrillation with RVR (Acute) Non-STEMI (non-ST elevated myocardial infarction) (Acute) Acute renal failure (Acute) Vomiting and diarrhea (Acute) Severe dehydration (Acute) Heme positive stool (Acute) Chronic hypoxemic respiratory failure (Resolved) Colitis (Resolved) GI (gastrointestinal bleed) (Resolved) History of DVT (deep vein thrombosis) (Resolved) Hypomagnesemia (Resolved) Hypothyroidism (Resolved) Iron deficiency anemia (Resolved) Severe aortic stenosis (Resolved) 74-year-old female with NSTEMI, A. fib with RVR, fecal occult positive stool right-sided abdominal pain, positive d-dimer, positive for Salmonella in her stool 1. Discussed with patient that if she remains stable would not plan for an urgent EGD or colonoscopy and she would be able to follow-up with her GI doctor Dr. Nixon. However, if something does change would plan to do 1 more urgently while she is here. 2. Did have thrombocytopenia this morning possibly due to heparin, hematology c onsulted labs pending.--no plans for any surgical intervention until platelets improve. 3. VQ scan scheduled for today due to positive d-dimer. We will continue to follow. Tessie Tesfaye M.D. Pager: [phone] [facility] [address] [place] [address], [facility], [address] [place] [address] Office: [phone] Code Visit Inpatient E&M: [id number] [facility] Hosp L1
[2019-09-28] MEDS: Metoprolol(XL)Succ 25 MG Tablet PO ×2 (09:38→21:47)
[2019-09-28] MEDS: dilTIAZem CD 240 MG Capsule PO (09:38)
[2019-09-28] MEDS: Furosemide 40 MG/4 ML Vial IV (09:40)
[2019-09-28] MEDS: 0.9% Saline Lock 10 ML Syringe IV ×4 (09:41→21:59)
[2019-09-28] MEDS: Nystatin Powder 15gm Bottle 1 APPLIC TOPICAL ×2 (09:46→21:50)
[2019-09-28] MEDS: Fluticasone 0.05% 1 SPRAY NASAL.SRY 2 SPRAY NASAL (09:46)
--- NOTE | 2019-09-28 11:42 | NM_ITS ---
CLINICAL: Female, 74 years old. Salmonella sepsis. NUCLEAR VENTILATION/PERFUSION - LUNG TECHNIQUE: The patient was administered 5.5 mCi of Tc MAA followed by a perfusion lung scan. The patient was administered 50 mCi of Tc DTPA aerosol followed by a ventilation lung scan. Comparison made to prior chest radiograph dated . COMPARISON STUDIES : NM - None. CR - Not available for review at this time. CT - Not available for review at this time. MR - Not available for review at this time. FINDINGS: The pulmonary perfusion study demonstrates uniform perfusion throughout both lung brush. There are no demonstrated segmental or subsegmental perfusion defects The ventilation study demonstrates uniform ventilation throughout both lung brush. There are no segmental or subsegmental ventilation abnormalities. NM/Lung Scan Vent/Perf IMPRESSION: Normal 99m Tc MAA pulmonary perfusion Tc DTPA aerosol ventilation imaging survey, according to revised PIOPED interpretive criteria. Electronically Signed: Nimesh Rogers, at 11:31 EST , Service support ,
[2019-09-28 11:50] LABS: Bedside Glucose 225 mg/dL (70-110)
--- NOTE | 2019-09-28 11:54 | PN_ITS ---
Patient Problems: Active and Suspected Problems (Last Reviewed 09/26/19 @ 11:18 by Cora Guzman PA-C) Thrombocytopenia (Acute) Secondary to sepsis versus heparin-induced thrombocytopenia Sepsis due to Salmonella species with acute hypoxic respiratory failure (Acute) Atrial fibrillation with RVR (Acute) Non-STEMI (non-ST elevated myocardial infarction) (Acute) Acute renal failure (Acute) Vomiting and diarrhea (Acute) Severe dehydration (Acute) Heme positive stool (Acute) - Physical Exam Vitals/I&O's: Vital Signs Temp Pulse Resp BP Pulse Ox 97.2 F L 75 23 H 113/99 H 95 09/28/19 08:00 09/28/19 09:38 09/28/19 09:00 09/28/19 09:00 09/28/19 09:00 Oxygen Flow Rate (L/min) 2 Oxygen Delivery Method Nasal Cannula Weight: 79.1 kg Body Mass Index (BMI) 34.0 Finger Stick Blood Glucose 112 Intake and Output for Last 24 Hours 09/26/19 09/27/19 09/28/19 23:59 23:59 23:59 Intake Total 3848.07 / 3856.42 2021.46 / 2038.16 418.51 / 418.51 Output Total 475 / 475 2375 / 2375 400 / 400 Balance 3373.07 / 3381.42 -353.54 / -336.84 18.51 / 18.51 General: Alert, Oriented x3, Cooperative HEENT: Atraumatic, PERRLA, EOMI, Normocephalic Neck: Supple, No JVD, Negative Carotid Bruits Lungs: Clear to auscultation, Normal air movement Cardiovascular: Regular rate, No murmurs Abdomen: Bowel Sounds Present, Soft, Non Tender, Obese Extremities: No edema, Capillary Refill Less than 3 Seconds Skin: No rashes, No breakdown Musculoskeletal: No Tenderness to Palpation of Joints or Extremities Neurological: Cranial nerves II-XII grossly intact Psych/Mental Status: Normal Affect, Appropriate Microbiology Past 72 Hours 09/26/19 17:55 Stool Enteric Bacteriology - Final Salmonella Sp. 09/27/19 00:01 Mucosa - Nasopharyngeal Rapid RSV (DFA) - Final 09/27/19 00:01 Mucosa - Nasopharyngeal Influenza Types A,B Direct FA ([facility]) - Final 09/25/19 23:49 Stool Stool Occult Blood (SHANE) - Final Occult Blood Positive Laboratory Results 09/26/19 23:30: Diff Path Review Reviewed 09/27/19 06:05: Diff Path Review Reviewed 09/27/19 06:05: APTT 110.7 H* 09/27/19 06:05: TSH 0.25 L 09/27/19 12:35: POC Glucose 280 H 09/27/19 14:55: Urine Color Yellow, Urine Clarity Sl. Cloudy, Urine pH 6.0, Ur Specific [place] 1.015, Urine Protein 30 H, Urine Glucose (UA) 50 H, Urine Ketones Negative, Urine Occult Blood 50 H, Urine Nitrite Negative, Urine Bilirubin Negative, Urine Urobilinogen Normal, Ur Leukocyte Esterase 500 H, Urine RBC 0-5 SEEN, Urine WBC >100 SEEN, Ur Squamous Epith Cells 0-5 SEEN, Amorphous Sediment 1+ URATE, Urine Bacteria RARE, Urine Mucus 0 SEEN 09/27/19 15:52: POC Glucose 291 H 09/27/19 22:00: POC Glucose 371 H 09/28/19 06:37: POC Glucose 251 H 09/28/19 11:20: POC Glucose 225 H 09/28/19 : WBC 21.0 H, RBC 4.11 L, Hgb 12.6, Hct 36.8 L, MCV 89.5, MCH 30.7, MCHC 34.2, RDW Std Deviation 51.7 H, RDW Coeff of Jeff 15.6 H, Plt Count 46 L*, Immature Gran % (Auto) 1.600 H, Neut % (Auto) 88.7 H, Lymph % (Auto) 5.6 L, [place] % (Auto) 3.7, Eos % (Auto) 0.1, Baso % (Auto) 0.3, Absolute Neuts (auto) 18.6 H, Absolute Lymphs (auto) 1.18, Nucleated RBC % 0, Differential Comment SCANNED, Diff Path Review May foll, Platelet Estimate MKD DEC, Immature Plt Fraction 20.5 H, Retic Count 1.23, Immature Retic Fraction 6.90, Retic Hgb Equivalent 27.9 L 09/28/19 : Sodium 135 L, Potassium 3.7, Chloride 103, Carbon Dioxide 23.0, Anion Gap 9, BUN 64 H, Creatinine 2.49 H, Estim Creat Clear Calc 14.45, Est GFR (MDRD) Af Amer 24 L, Est GFR (MDRD) Non-Af 20 L, BUN/Creatinine Ratio 25.7 H, Glucose 319 H, Calcium 7.4 L, Total Bilirubin 0.60, AST 487 H, ALT 804 H, Alkaline Phosphatase 65, Total Protein 5.0 L, Albumin 2.0 L, Globulin 3.0, Albumin/Globulin Ratio 0.7 L 09/28/19 : PT 17.1 H, INR 1.4, APTT 40.6 H 09/28/19 : Immature Plt Fraction Cancelled, Retic Count Cancelled, Immature Retic Fraction Cancelled, Retic Hgb Equivalent Cancelled 09/28/19 : Lactate Dehydrogenase 453 H 09/28/19 : Free T4 1.79 H Current Medications Albuterol Sulfate (Ventolin Aerosols) 2.5 mg INHALATION Q6H PRN PRN PRN Reason: SOB &/OR WHEEZING Albuterol/Ipratropium (Duoneb) 3 ml INHALATION Q6HWA.RT [facility] Last Admin: 09/28/19 07:29 Dose: 3 ml Documented by: Amiodarone HCl (Cordarone) 200 mg PO DAILY [facility] Last Admin: 09/28/19 06:23 Dose: 200 mg Documented by: Atorvastatin Calcium (Lipitor) 80 mg PO QHS [facility] Last Admin: 09/27/19 22:02 Dose: 80 mg Documented by: Budesonide (Pulmicort Aerosol) 0.5 mg INHALATION Q12H.RT [facility] Last Admin: 09/28/19 07:29 Dose: 0.5 mg Documented by: Diltiazem HCl (Cardizem Cd) 240 mg PO DAILY [facility] Last Admin: 09/28/19 09:38 Dose: 240 mg Documented by: Fluticasone Propionate (Flonase Nasal [place]) 2 spray NASAL DAILY [facility] Last Admin: 09/28/19 09:46 Dose: 2 spray Documented by: Furosemide (Lasix) 40 mg IV DAILY [facility] Last Admin: 09/28/19 09:40 Dose: 40 mg Documented by: Glucagon () 1 mg IM .X1 PRN PRN Reason: Hypoglycemia Pantoprazole Sodium 40 mg/ (Sodium Chloride) 110 mls @ 330 mls/hr IV Q12 [facility] Last Infusion: 09/28/19 10:10 Dose: Infused Documented by: Sodium Chloride () 250 mls @ 15 mls/hr IV .[id number] PRN PRN Reason: Saline Flush Last Infusion: 09/27/19 18:39 Dose: 0 mls/hr Documented by: Dextrose (Dextrose 10%-Water) 250 mls @ 999 mls/hr IV X1 PRN; Protocol PRN Reason: HYPOGLYCEMIA Ceftriaxone Sodium 2 gm/ (Sodium Chloride) 50 mls @ 100 mls/hr IV Q24 [facility] Stop: 10/03/19 10:29 Last Admin: 09/28/19 11:23 Dose: 100 mls/hr Documented by: Insulin Glargine (Lantus ([facility])) 10 units SC QHS [facility] Last Admin: 09/27/19 22:03 Dose: 10 units Documented by: Insulin Human Lispro (Humalog Kwikpen ([facility])) 0 unit SC ACHS [facility]; Protocol Last Admin: 09/28/19 11:29 Dose: 2 units Documented by: Metoprolol Succinate (Toprol Xl (Beta Isabel)) 25 mg PO BID [facility] Last Admin: 09/28/19 09:38 Dose: 25 mg Documented by: Nystatin (Mycostatin Powder) 1 applic TOPICAL BID [facility]; Protocol Last Admin: 09/28/19 09:46 Dose: 1 applicatio Documented by: Ondansetron HCl (Zofran) 4 mg IV Q8H PRN PRN PRN Reason: NAUSEA/VOMITING Last Admin: 09/26/19 09:10 Dose: 4 mg Documented by: Pramipexole Dihydrochloride (Mirapex) 1 mg PO QHS [facility] Last Admin: 09/27/19 23:23 Dose: 1 mg Documented by: Prochlorperazine Edisylate (Compazine Iv) 10 mg IV Q4H PRN PRN PRN Reason: nausea, vomiting Last Admin: 09/26/19 14:44 Dose: 10 mg Documented by: Sodium Chloride () 10 - 40 ml IV UD PRN PRN Reason: SALINE FLUSH Last Admin: 09/28/19 09:41 Dose: 10 ml Documented by: Medical Necessity - Tobacco Use Smoking Status: Former smoker Assessment/Plan All Active Problems (Last Reviewed 09/26/19 @ 11:18 by Cora Guzman PA-C) Thrombocytopenia (Acute) Sepsis due to Salmonella species with acute hypoxic respiratory failure (Acute) Atrial fibrillation with RVR (Acute) Non-STEMI (non-ST elevated myocardial infarction) (Acute) Acute renal failure (Acute) Vomiting and diarrhea (Acute) Severe dehydration (Acute) Heme positive stool (Acute) Chronic hypoxemic respiratory failure (Resolved) Colitis (Resolved) GI (gastrointestinal bleed) (Resolved) History of DVT (deep vein thrombosis) (Resolved) Hypomagnesemia (Resolved) Hypothyroidism (Resolved) Iron deficiency anemia (Resolved) Severe aortic stenosis (Resolved) MARILEE prerenal/ATN with fluid depletion hypotension diuresis Renal cyst CKD 3 baseline 1.2-1.3 Pulmonary edema Atrial fibrillation with RVR NSTEMI Diarrhea positive for Salmonella GI bleed Thrombocytopenia\ Serum creatinine 2.49 improving Okay to continue Lasix once daily for now. Rec to switch to 40 mg po daily when ok with cards ok renal US reviewed Follow-up urine culture Blood pressure currently acceptable. Avoid hypotension nephrotoxins.
--- NOTE | 2019-09-28 13:01 | PN_ITS ---
<David Paredes - Last Filed: 09/28/19 13:01> Patient Problems: Active and Suspected Problems (Last Reviewed 09/26/19 @ 11:18 by Cora Guzman PA-C) Thrombocytopenia (Acute) Secondary to sepsis versus heparin-induced thrombocytopenia Sepsis due to Salmonella species with acute hypoxic respiratory failure (Acute) Atrial fibrillation with RVR (Acute) Non-STEMI (non-ST elevated myocardial infarction) (Acute) Acute renal failure (Acute) Vomiting and diarrhea (Acute) Severe dehydration (Acute) Heme positive stool (Acute) Reason for Visit: N/V/D Subjective: Today no n/v/d. No SOB. No CP. No palp. Rate improved. No abdominal pain today. No fever/chills. Vitals/I&O's: Vital Signs Temp Pulse Resp BP Pulse Ox 97.2 F L 71 25 H 118/76 93 09/28/19 08:00 09/28/19 11:50 09/28/19 11:00 09/28/19 11:00 09/28/19 11:00 Oxygen Flow Rate (L/min) 2 Oxygen Delivery Method Nasal Cannula Weight: 174 lb 6.17 oz Body Mass Index (BMI) 34.0 Finger Stick Blood Glucose 112 Intake and Output for Last 24 Hours 09/26/19 09/27/19 09/28/19 23:59 23:59 23:59 Intake Total 3848.07 / 3856.42 2021.46 / 2038.16 507.48 / 507.48 Output Total 475 / 475 2375 / 2375 400 / 400 Balance 3373.07 / 3381.42 -353.54 / -336.84 107.48 / 107.48 General: Alert, Oriented x3, Cooperative HEENT: Atraumatic, PERRLA, EOMI, Normocephalic Neck: Supple, No JVD, Negative Carotid Bruits Lungs: Clear to auscultation, Normal air movement Cardiovascular: Regular rate, No murmurs Abdomen: Bowel Sounds Present, Soft, Non Tender Extremities: No edema, Capillary Refill Less than 3 Seconds Skin: No rashes, No breakdown Musculoskeletal: No Tenderness to Palpation of Joints or Extremities Neurological: Cranial nerves II-XII grossly intact Psych/Mental Status: Normal Affect, Appropriate, Alert and oriented to time, place, person, mood and affect Microbiology Past 72 Hours 09/27/19 14:55 Urine, Clean Catch Urine Culture - Preliminary Gram negative julieta 09/26/19 17:55 Stool Enteric Bacteriology - Final Salmonella Sp. 09/27/19 00:01 Mucosa - Nasopharyngeal Rapid RSV (DFA) - Final 09/27/19 00:01 Mucosa - Nasopharyngeal Influenza Types A,B Direct FA (SHANE) - Final 09/25/19 23:49 Stool Stool Occult Blood (SHANE) - Final Occult Blood Positive Laboratory Results 09/27/19 06:05: APTT 110.7 H* 09/27/19 06:05: TSH 0.25 L 09/27/19 14:55: Urine Color Yellow, Urine Clarity Sl. Cloudy, Urine pH 6.0, Ur Specific Godwin 1.015, Urine Protein 30 H, Urine Glucose (UA) 50 H, Urine Ketones Negative, Urine Occult Blood 50 H, Urine Nitrite Negative, Urine Bilirubin Negative, Urine Urobilinogen Normal, Ur Leukocyte Esterase 500 H, Urine RBC 0-5 SEEN, Urine WBC >100 SEEN, Ur Squamous Epith Cells 0-5 SEEN, Amorphous Sediment 1+ URATE, Urine Bacteria RARE, Urine Mucus 0 SEEN 09/27/19 15:52: POC Glucose 291 H 09/27/19 22:00: POC Glucose 371 H 09/28/19 06:37: POC Glucose 251 H 09/28/19 11:20: POC Glucose 225 H 09/28/19 : WBC 21.0 H, RBC 4.11 L, Hgb 12.6, Hct 36.8 L, MCV 89.5, MCH 30.7, MCHC 34.2, RDW Std Deviation 51.7 H, RDW Coeff of Jeff 15.6 H, Plt Count 46 L*, Immature Gran % (Auto) 1.600 H, Neut % (Auto) 88.7 H, Lymph % (Auto) 5.6 L, [place] % (Auto) 3.7, Eos % (Auto) 0.1, Baso % (Auto) 0.3, Absolute Neuts (auto) 18.6 H, Absolute Lymphs (auto) 1.18, Nucleated RBC % 0, Differential Comment SCANNED, Diff Path Review May foll, Platelet Estimate MKD DEC, Immature Plt Fraction 20.5 H, Retic Count 1.23, Immature Retic Fraction 6.90, Retic Hgb Equivalent 27.9 L 09/28/19 : Sodium 135 L, Potassium 3.7, Chloride 103, Carbon Dioxide 23.0, Anion Gap 9, BUN 64 H, Creatinine 2.49 H, Estim Creat Clear Calc 14.45, Est GFR (MDRD) Af Amer 24 L, Est GFR (MDRD) Non-Af 20 L, BUN/Creatinine Ratio 25.7 H, Glucose 319 H, Calcium 7.4 L, Total Bilirubin 0.60, AST 487 H, ALT 804 H, Alkaline Phosphatase 65, Total Protein 5.0 L, Albumin 2.0 L, Globulin 3.0, Albumin/Globulin Ratio 0.7 L 09/28/19 : PT 17.1 H, INR 1.4, APTT 40.6 H 09/28/19 : Immature Plt Fraction Cancelled, Retic Count Cancelled, Immature Retic Fraction Cancelled, Retic Hgb Equivalent Cancelled 09/28/19 : Lactate Dehydrogenase 453 H 09/28/19 : Free T4 1.79 H Current Medications Albuterol Sulfate (Ventolin Aerosols) 2.5 mg INHALATION Q6H PRN PRN PRN Reason: SOB &/OR WHEEZING Albuterol/Ipratropium (Duoneb) 3 ml INHALATION Q6HWA.RT [facility] Last Admin: 09/28/19 07:29 Dose: 3 ml Documented by: Amiodarone HCl (Cordarone) 200 mg PO DAILY [facility] Last Admin: 09/28/19 06:23 Dose: 200 mg Documented by: Atorvastatin Calcium (Lipitor) 80 mg PO QHS [facility] Last Admin: 09/27/19 22:02 Dose: 80 mg Documented by: Budesonide (Pulmicort Aerosol) 0.5 mg INHALATION Q12H.RT [facility] Last Admin: 09/28/19 07:29 Dose: 0.5 mg Documented by: Diltiazem HCl (Cardizem Cd) 240 mg PO DAILY [facility] Last Admin: 09/28/19 09:38 Dose: 240 mg Documented by: Fluticasone Propionate (Flonase Nasal [place]) 2 spray NASAL DAILY [facility] Last Admin: 09/28/19 09:46 Dose: 2 spray Documented by: Furosemide (Lasix) 40 mg IV DAILY [facility] Last Admin: 09/28/19 09:40 Dose: 40 mg Documented by: Glucagon () 1 mg IM .X1 PRN PRN Reason: Hypoglycemia Pantoprazole Sodium 40 mg/ (Sodium Chloride) 110 mls @ 330 mls/hr IV Q12 [facility] Last Infusion: 09/28/19 10:10 Dose: Infused Documented by: Sodium Chloride () 250 mls @ 15 mls/hr IV .[id number] PRN PRN Reason: Saline Flush Last Infusion: 09/27/19 18:39 Dose: 0 mls/hr Documented by: Dextrose (Dextrose 10%-Water) 250 mls @ 999 mls/hr IV X1 PRN; Protocol PRN Reason: HYPOGLYCEMIA Ceftriaxone Sodium 2 gm/ (Sodium Chloride) 50 mls @ 100 mls/hr IV Q24 [facility] Stop: 10/03/19 10:29 Last Infusion: 09/28/19 12:20 Dose: Infused Documented by: Insulin Glargine (Lantus ([facility])) 10 units SC QHS [facility] Last Admin: 09/27/19 22:03 Dose: 10 units Documented by: Insulin Human Lispro (Humalog Kwikpen ([facility])) 0 unit SC ACHS [facility]; Protocol Last Admin: 09/28/19 11:29 Dose: 2 units Documented by: Metoprolol Succinate (Toprol Xl (Beta Isabel)) 25 mg PO BID [facility] Last Admin: 09/28/19 09:38 Dose: 25 mg Documented by: Nystatin (Mycostatin Powder) 1 applic TOPICAL BID [facility]; Protocol Last Admin: 09/28/19 09:46 Dose: 1 applicatio Documented by: Ondansetron HCl (Zofran) 4 mg IV Q8H PRN PRN PRN Reason: NAUSEA/VOMITING Last Admin: 09/26/19 09:10 Dose: 4 mg Documented by: Pramipexole Dihydrochloride (Mirapex) 1 mg PO QHS [facility] Last Admin: 09/27/19 23:23 Dose: 1 mg Documented by: Prochlorperazine Edisylate (Compazine Iv) 10 mg IV Q4H PRN PRN PRN Reason: nausea, vomiting Last Admin: 09/26/19 14:44 Dose: 10 mg Documented by: Sodium Chloride () 10 - 40 ml IV UD PRN PRN Reason: SALINE FLUSH Last Admin: 09/28/19 09:41 Dose: 10 ml Documented by: STROKE Vital Signs/Narrative: Vital Signs Pulse Resp BP Pulse Ox 09/28/19 11:50 71 09/28/19 11:00 75 25 H 118/76 93 09/28/19 10:00 74 26 H 105/64 96 09/28/19 09:38 75 Medical Necessity - Tobacco Use Smoking Status: Former smoker Assessment/Plan All Active Problems (Last Reviewed 09/26/19 @ 11:18 by Cora Guzman PA-C) Thrombocytopenia (Acute) Sepsis due to Salmonella species with acute hypoxic respiratory failure (Acute) Atrial fibrillation with RVR (Acute) Non-STEMI (non-ST elevated myocardial infarction) (Acute) Acute renal failure (Acute) Vomiting and diarrhea (Acute) Severe dehydration (Acute) Heme positive stool (Acute) Chronic hypoxemic respiratory failure (Resolved) Colitis (Resolved) GI (gastrointestinal bleed) (Resolved) History of DVT (deep vein thrombosis) (Resolved) Hypomagnesemia (Resolved) Hypothyroidism (Resolved) Iron deficiency anemia (Resolved) Severe aortic stenosis (Resolved) 1. Elevated troponin, NSTEMI - stress test negative. Cardiology following. Echo unremarkable. 2. Acute sepsis 2/2 acute gastroenteritis 2/2 Salmonella - rocephin started. WBC now up to 21k. No fever. Overall pts symptoms have improved despite the increase in WBCs. No no abd pain/nausea/vomiting. Abd US negative. 3. Thrombocytopenia - Plts improved overnight. Heme/Onc following. Holding antiplatelets. Hgb stable during stay. 4. Metabolic acidosis suspect 2/2 gastroenteritis - resolving 5. MARILEE - 2/2 N/V/D - nephrology following. Improved. Renal US neg. 6. Elevated D dimer - VQ scan is normal. Hx DVT/hypercoag state. No strain pattern on echo. Venous duplex LE pending. 7. Afib with RVR suspect 2/2 sepsis- cardiology following - improved on amio/cardizem/toprol. Stress negative this AM. No anticoagulation with decreased platelets. Echo done, shows EF 65%, afib, RVSP improved from 57 to 29, 1+ MVI/TVI, stable prosthetic valve, moderate left atrium enlargement. -T4 elevated. Resume methimazole. 8. Suspect some Acute on chronic diastolic CHF, pulmonary HTN - echo as above. CXR with congestion/pleural effusions - on IV lasix. 9. DMt2 - continue lantus/SSI. orals held. 10. Hx hyperthyroidism - tsh somewhat low, however t4 elevated - resume methimazole. . 11. Depression - paxil 12. Hx lupus anticoagulant, DVT - if needed consider xarelto/eliquis/bivalrudin. 13. Hx MTHFR - heme/onc consulted. 14. COPD - continue pulmicort, duoneb, albuterol. Decrease frequency of albuterol with afib RVR. 15. Hx - s/p TAVR/porcine valve. DVT ppx: SCDs DC planning: PTOT This patient was seen by David Paredes PA-C under the supervision of Doctor Jose Raul. <Juan Blunt - Last Filed: 09/28/19 13:57> Vitals/I&O's: Vital Signs Temp Pulse Resp BP Pulse Ox 36.6 C 74 15 110/85 H 95 09/28/19 13:26 09/28/19 13:26 09/28/19 13:26 09/28/19 13:26 09/28/19 13:26 Oxygen Flow Rate (L/min) 2 Oxygen Delivery Method Nasal Cannula Weight: 79.1 kg Body Mass Index (BMI) 34.0 Finger Stick Blood Glucose 112 Intake and Output for Last 24 Hours 09/26/19 09/27/19 09/28/19 23:59 23:59 23:59 Intake Total 3848.07 / 3856.42 2021.46 / 2038.16 507.48 / 507.48 Output Total 475 / 475 2375 / 2375 400 / 400 Balance 3373.07 / 3381.42 -353.54 / -336.84 107.48 / 107.48 General: Alert, Cooperative HEENT: Atraumatic, Normocephalic Neck: No Nodes, Trachea Midline Lungs: Clear to auscultation, Normal air movement, No rhonchi, No wheeze Cardiovascular: Regular rate, Regular Rhythm, Normal S1, Normal S2, No murmurs Abdomen: Bowel Sounds Present, Non Tender, Non-Distended Extremities: No edema, No Calf Tenderness Skin: No rashes, No breakdown Neurological: - - no clonus Psych/Mental Status: Normal Affect, Appropriate Microbiology Past 72 Hours 09/27/19 14:55 Urine, Clean Catch Urine Culture - Preliminary Gram negative julieta 09/26/19 17:55 Stool Enteric Bacteriology - Final Salmonella Sp. 09/27/19 00:01 Mucosa - Nasopharyngeal Rapid RSV (DFA) - Final 09/27/19 00:01 Mucosa - Nasopharyngeal Influenza Types A,B Direct FA ([facility]) - Final 09/25/19 23:49 Stool Stool Occult Blood (SHANE) - Final Occult Blood Positive Laboratory Results 09/27/19 06:05: APTT 110.7 H* 09/27/19 06:05: TSH 0.25 L 09/27/19 14:55: Urine Color Yellow, Urine Clarity Sl. Cloudy, Urine pH 6.0, Ur Specific Godwin 1.015, Urine Protein 30 H, Urine Glucose (UA) 50 H, Urine Ketones Negative, Urine Occult Blood 50 H, Urine Nitrite Negative, Urine Bilirubin Negative, Urine Urobilinogen Normal, Ur Leukocyte Esterase 500 H, Urine RBC 0-5 SEEN, Urine WBC >100 SEEN, Ur Squamous Epith Cells 0-5 SEEN, Amorphous Sediment 1+ URATE, Urine Bacteria RARE, Urine Mucus 0 SEEN 09/27/19 15:52: POC Glucose 291 H 09/27/19 22:00: POC Glucose 371 H 09/28/19 06:37: POC Glucose 251 H 09/28/19 11:20: POC Glucose 225 H 09/28/19 13:00: WBC Pending, RBC Pending, Hgb Pending, Hct Pending, MCV Pending, MCH Pending, MCHC Pending, RDW Std Deviation Pending, RDW Coeff of Jeff Pending, Plt Count Pending, Neut % (Auto) Pending, Absolute Neuts (auto) Pending 09/28/19 13:00: Sodium 139, Potassium 3.6, Chloride 107, Carbon Dioxide 23.0, Anion Gap 9, BUN 67 H, Creatinine 2.47 H, Estim Creat Clear Calc 14.57, Est GFR (MDRD) Af Amer 25 L, Est GFR (MDRD) Non-Af 20 L, BUN/Creatinine Ratio 27.1 H, Glucose 258 H, Calcium 7.7 L 09/28/19 : WBC 21.0 H, RBC 4.11 L, Hgb 12.6, Hct 36.8 L, MCV 89.5, MCH 30.7, MCHC 34.2, RDW Std Deviation 51.7 H, RDW Coeff of Jeff 15.6 H, Plt Count 46 L*, Immature Gran % (Auto) 1.600 H, Neut % (Auto) 88.7 H, Lymph % (Auto) 5.6 L, [place] % (Auto) 3.7, Eos % (Auto) 0.1, Baso % (Auto) 0.3, Absolute Neuts (auto) 18.6 H, Absolute Lymphs (auto) 1.18, Nucleated RBC % 0, Differential Comment SCANNED, Diff Path Review Reviewed, Platelet Estimate MKD DEC, Immature Plt Fraction 20.5 H, Retic Count 1.23, Immature Retic Fraction 6.90, Retic Hgb Equivalent 27.9 L 09/28/19 : Sodium 135 L, Potassium 3.7, Chloride 103, Carbon Dioxide 23.0, Anion Gap 9, BUN 64 H, Creatinine 2.49 H, Estim Creat Clear Calc 14.45, Est GFR (MDRD) Af Amer 24 L, Est GFR (MDRD) Non-Af 20 L, BUN/Creatinine Ratio 25.7 H, Glucose 319 H, Calcium 7.4 L, Total Bilirubin 0.60, AST 487 H, ALT 804 H, Alkaline Phosphatase 65, Total Protein 5.0 L, Albumin 2.0 L, Globulin 3.0, Albumin/Globulin Ratio 0.7 L 09/28/19 : PT 17.1 H, INR 1.4, APTT 40.6 H 09/28/19 : Immature Plt Fraction Cancelled, Retic Count Cancelled, Immature Retic Fraction Cancelled, Retic Hgb Equivalent Cancelled 09/28/19 : Lactate Dehydrogenase 453 H 09/28/19 : Free T4 1.79 H Current Medications Albuterol Sulfate (Ventolin Aerosols) 2.5 mg INHALATION Q6H PRN PRN PRN Reason: SOB &/OR WHEEZING Albuterol/Ipratropium (Duoneb) 3 ml INHALATION Q6HWA.RT [facility] Last Admin: 09/28/19 13:20 Dose: Not Given Documented by: Amiodarone HCl (Cordarone) 200 mg PO DAILY [facility] Last Admin: 09/28/19 06:23 Dose: 200 mg Documented by: Atorvastatin Calcium (Lipitor) 80 mg PO QHS [facility] Last Admin: 09/27/19 22:02 Dose: 80 mg Documented by: Budesonide (Pulmicort Aerosol) 0.5 mg INHALATION Q12H.RT [facility] Last Admin: 09/28/19 07:29 Dose: 0.5 mg Documented by: Diltiazem HCl (Cardizem Cd) 240 mg PO DAILY [facility] Last Admin: 09/28/19 09:38 Dose: 240 mg Documented by: Fluticasone Propionate (Flonase Nasal [place]) 2 spray NASAL DAILY [facility] Last Admin: 09/28/19 09:46 Dose: 2 spray Documented by: Furosemide (Lasix) 40 mg IV DAILY [facility] Last Admin: 09/28/19 09:40 Dose: 40 mg Documented by: Glucagon () 1 mg IM .X1 PRN PRN Reason: Hypoglycemia Pantoprazole Sodium 40 mg/ (Sodium Chloride) 110 mls @ 330 mls/hr IV Q12 [facility] Last Infusion: 09/28/19 10:10 Dose: Infused Documented by: Sodium Chloride () 250 mls @ 15 mls/hr IV .[id number] PRN PRN Reason: Saline Flush Last Infusion: 09/27/19 18:39 Dose: 0 mls/hr Documented by: Dextrose (Dextrose 10%-Water) 250 mls @ 999 mls/hr IV X1 PRN; Protocol PRN Reason: HYPOGLYCEMIA Ceftriaxone Sodium 2 gm/ (Sodium Chloride) 50 mls @ 100 mls/hr IV Q24 [facility] Stop: 10/03/19 10:29 Last Infusion: 09/28/19 12:20 Dose: Infused Documented by: Insulin Glargine (Lantus ([facility])) 10 units SC QHS [facility] Last Admin: 09/27/19 22:03 Dose: 10 units Documented by: Insulin Human Lispro (Humalog Kwikpen ([facility])) 0 unit SC ACHS [facility]; Protocol Last Admin: 09/28/19 11:29 Dose: 2 units Documented by: Methimazole (Tapazole) 5 mg PO DAILY [facility] Metoprolol Succinate (Toprol Xl (Beta Isabel)) 25 mg PO BID [facility] Last Admin: 09/28/19 09:38 Dose: 25 mg Documented by: Nystatin (Mycostatin Powder) 1 applic TOPICAL BID [facility]; Protocol Last Admin: 09/28/19 09:46 Dose: 1 applicatio Documented by: Ondansetron HCl (Zofran) 4 mg IV Q8H PRN PRN PRN Reason: NAUSEA/VOMITING Last Admin: 09/26/19 09:10 Dose: 4 mg Documented by: Pramipexole Dihydrochloride (Mirapex) 1 mg PO QHS [facility] Last Admin: 09/27/19 23:23 Dose: 1 mg Documented by: Prochlorperazine Edisylate (Compazine Iv) 10 mg IV Q4H PRN PRN PRN Reason: nausea, vomiting Last Admin: 09/26/19 14:44 Dose: 10 mg Documented by: Sodium Chloride () 10 - 40 ml IV UD PRN PRN Reason: SALINE FLUSH Last Admin: 09/28/19 09:41 Dose: 10 ml Documented by: STROKE Vital Signs/Narrative: Vital Signs Temp Pulse Resp BP Pulse Ox 09/28/19 13:26 36.6 C 74 15 110/85 H 95 09/28/19 11:50 71 09/28/19 11:00 75 25 H 118/76 93 09/28/19 10:00 74 26 H 105/64 96 Assessment/Plan Patient seen and examined independently. Data reviewed. I agree with the above note by the physician health care assistant. 1. afib rvr * improved * Toprol XL and Diltiazem * anticoagulation held due to worsening thrombocytopenia and * EF 65% 2. NSTEMI * may be due to demand ischemia from sepsis * stress negative * on metoprolol succinate * VQ scan negative for PE 3. heme positive stools * h/h stable * general surgery planning on endoscopy as outpt. 4. possible DIC * unclear etiology, though possibly with sepsis * +thrombocytopenia, elevated D-Dimer, INR * hematology on consult 5. Sepsis: * 2/2 Salmonella gastroenteritis * supportive mgmt 6. Salmonella gastroenteritis * ceftriaxone 2g/day * treat total of 7-10 days (started 09/27) * could change to cipro upon discharge 7. MARILEE: * presumed, v CKD * non-oliguric * nephrology following * Per fadia Fagan for PICC line at this time. 8. acute hypoxic respiratory failure * CXR consistent with CHF * gentle diuresis 9. nausea * refractory to ondansetron * add prochloperazine * continue PPI IV 10. VTE proph: SCDs 11. prognosis: guarded. 12. thrombocytopenia * POA, but did get worse during the admission * not consistent with HIT (4T's score only 2) 13. VTE and lupus anticoagulant syndrome * when initiating anticoagulation, start apixaban. Code Visit Inpatient E&M: 85142 Subs Hosp L3
--- NOTE | 2019-09-28 13:08 | VDLE_ITS ---
Reason For Study: ELEVATED D DIMER RIGHT LEFT GSV is normal. GSV is normal. CFV is compressible, spontaneous, phasic, CFV is compressible, spontaneous, phasic, competent and demonstrates normal competent, and demonstrates normal augmentation. augmentation. FV is compressible, spontaneous, phasic, FV is compressible, spontaneous, phasic, competent and demonstrates normal competent and demonstrates normal augmentation. augmentation. POP V is compressible, spontaneous, phasic, POP V is compressible, spontaneous, phasic, competent and demonstrates normal competent and demonstrates normal augmentation. augmentation. T/P Trunk is compressible. T/P Trunk is compressible. PTV is compressible. PTV is compressible. RT PerV is compressible. LT PerV is compressible. Procedure Exam performed portable in patient room. A preliminary report was called and/or faxed to [facility]. Interpretation Summary No evidence for acute deep venous thrombosis bilateral lower extremities with patent and compressible bilateral great saphenous veins. Ordering Physician: David Paredes Referring Physician: NAREN BATES Performed By: Maribel Tejada, JEANETTE, RVT
[2019-09-28 13:10] LABS: Pathologist Review Reviewed
[2019-09-28 13:22] LABS: Absolute Lymphocyte Count 1.11 X10^3/uL (0.83-4.51); Basophil# 0.07 X10^3/uL; Basophil% 0.3 % (0-1); Eosinophil# 0.02 X10^3/uL; Eosinophils% 0.1 % (0-5); Hematocrit 37.3 % (37-47); Hemoglobin 12.8 g/dL (12.0-15.0); Lymphocyte # 1.11 X10^3/ul (4.0); Lymphocyte % 4.9 % (19-41); Mean Corp Hgb Conc 34.3 g/dL (32-36); Mean Corpuscular Hgb 30.8 pg (27.0-32.0); Mean Corpuscular Volume 89.7 fL (81-99); Monocyte# 0.96 X10^3/uL; Monocyte% 4.2 % (0-10); NRBC Flagged by Analyzer 0.1 % (0-5); Neutrophil # 20.02 X10^3/uL (2.7-7.7); Neutrophil % 88.7 % (47-70); POSITIVE COUNT YES; POSITIVE DIFFERENTIAL YES; Platelet Count 54 K/mm3 (150-450); RBC Distribution Width CV 15.9 % (11.6-14.6); RBC Distribution Width SD 52.2 fl (35.1-43.9); Red Blood Count 4.16 M/mm3 (4.2-5.4); White Blood Count 22.6 K/mm3 (4.4-11.0)
[2019-09-28 13:31] LABS: Anion Gap 9 (5-15); BUN 67 mg/dL (7-18); BUN/Creat Ratio 27.1 RATIO (10-20); Calcium,Total 7.7 mg/dL (8.5-10.1); Chloride 107 mmol/L (98-107); Creatinine, Serum 2.47 mg/dL (0.55-1.02); EST Glomerular Filtration Rate 20 mL/min (>60); Est Glom Filt Rate - Afr Amer 25 mL/min (>60); Estimated Creatinine Clearance 14.57 ml/min; Glucose 258 mg/dL (74-106); Potassium 3.6 mmol/L (3.5-5.1); Sodium Level 139 mmol/L (136-145)
[2019-09-28 13:58] LABS: Differential Indicated SCAN CRITERIA MET
[2019-09-28 14:13] LABS: Anisocytosis 1+; Platelet Estimate MKD DEC (ADEQ); Red Cell Morphology N CHROM NORMAL (NORM C&C)
--- NOTE | 2019-09-28 14:32 | CASEMGMT ---
This RN CM to room to discuss discharge planning at this time and pt is sleeping without distress at this time. Pt does not awaken with knock on door or verbal stimuli at this time. CM to f/u with pt on tuesday regarding discharge planning/needs. [place]en RN CM
[2019-09-28 16:35] LABS: Bedside Glucose 238 mg/dL (70-110)
[2019-09-28] MEDS: Pramipexole Di-HCl 1 MG Tablet PO (21:50)
[2019-09-28] MEDS: Atorvastatin Calcium 80 MG Tablet PO (21:50)
[2019-09-28 22:20] LABS: Bedside Glucose 242 mg/dL (70-110)
[2019-09-29] VITALS (14 sets, daily range): BP systolic 114–129; BP diastolic 70–80; PULSE 64–83; RESP 16–22; TEMP 36.2–36.8; O2SAT 85–97
[2019-09-29] MEDS: Insulin Lispro 100 UNIT/ML INSULN.PEN SC ×4 (06:40→20:46)
[2019-09-29 06:45] LABS: Bedside Glucose 214 mg/dL (70-110)
[2019-09-29 06:48] LABS: Absolute Lymphocyte Count 0.97 X10^3/uL (0.83-4.51); Absolute Neutrophil Count 18.6 X10^3/uL (2.0-7.7); Basophil# 0.07 X10^3/uL; Basophil% 0.3 % (0-1); Eosinophil# 0.01 X10^3/uL; Hematocrit 37.6 % (37-47); Hemoglobin 12.7 g/dL (12.0-15.0); Lymphocyte # 0.97 X10^3/ul (4.0); Lymphocyte % 4.5 % (19-41); Mean Corp Hgb Conc 33.8 g/dL (32-36); Mean Corpuscular Hgb 30.2 pg (27.0-32.0); Mean Corpuscular Volume 89.3 fL (81-99); Monocyte% 5.6 % (0-10); NRBC Flagged by Analyzer 0.1 % (0-5); Neutrophil % 86.8 % (47-70); POSITIVE COUNT YES; Platelet Count 68 K/mm3 (150-450); RBC Distribution Width CV 16.2 % (11.6-14.6); Red Blood Count 4.21 M/mm3 (4.2-5.4); White Blood Count 21.4 K/mm3 (4.4-11.0)
[2019-09-29 07:04] LABS: Differential Indicated SCAN CRITERIA MET
[2019-09-29 07:22] LABS: Differential Comment SCANNED
[2019-09-29 07:23] LABS: Toxic Granulation 2+
[2019-09-29] MEDS: Budesonide Respules 0.5 MG/2 ML AMPUL.NEB. INHALATION ×2 (07:28→19:37)
[2019-09-29] MEDS: Ipratropium/Albuterol Sulfate 3 ML AMPUL.NEB INHALATION ×3 (07:28→19:37)
[2019-09-29 07:37] LABS: ALB/GLOB Ratio 0.7 RATIO (0.9-2.4); AST(SGOT) 273 U/L (15-37); Alanine Aminotransfer ALT/SGPT 686 U/L (13-56); Alkaline Phosphatase 70 U/L (45-117); Anion Gap 6 (5-15); BUN 62 mg/dL (7-18); BUN/Creat Ratio 29.2 RATIO (10-20); Calcium,Total 7.7 mg/dL (8.5-10.1); Chloride 107 mmol/L (98-107); Creatinine, Serum 2.12 mg/dL (0.55-1.02); EST Glomerular Filtration Rate 24 mL/min (>60); Est Glom Filt Rate - Afr Amer 29 mL/min (>60); Estimated Creatinine Clearance 16.98 ml/min; Glucose 206 mg/dL (74-106); Sodium Level 137 mmol/L (136-145)
[2019-09-29] MEDS: Amiodarone 200 MG Tablet PO (08:18)
[2019-09-29] MEDS: Metoprolol(XL)Succ 25 MG Tablet PO ×2 (08:18→20:45)
[2019-09-29] MEDS: 0.9% Saline Lock 10 ML Syringe IV ×2 (08:19→20:44)
[2019-09-29] MEDS: Furosemide 40 MG/4 ML Vial IV (08:19)
[2019-09-29] MEDS: dilTIAZem CD 240 MG Capsule PO (08:19)
[2019-09-29] MEDS: Nystatin Powder 15gm Bottle 1 APPLIC TOPICAL ×2 (08:21→20:45)
[2019-09-29] MEDS: Fluticasone 0.05% 1 SPRAY NASAL.SRY 2 SPRAY NASAL (08:21)
[2019-09-29] MEDS: Methimazole 5 MG Tablet PO (08:27)
--- NOTE | 2019-09-29 09:22 | PCM.PN.SRG ---
Patient Problems: Active and Suspected Problems (Last Reviewed 09/26/19 @ 11:18 by Cora Guzman PA-C) Thrombocytopenia (Acute) Secondary to sepsis versus heparin-induced thrombocytopenia Sepsis due to Salmonella species with acute hypoxic respiratory failure (Acute) Atrial fibrillation with RVR (Acute) Non-STEMI (non-ST elevated myocardial infarction) (Acute) Acute renal failure (Acute) Vomiting and diarrhea (Acute) Severe dehydration (Acute) Heme positive stool (Acute) Subjective: Patient states she only has very little pain in her abdomen still and usually her bladder when it is really full. Patient's white blood cell count still elevated at 21, patient states she is occasionally had elevated blood count in the past. Patient's recheck of platelets did drop to 46 however additional recheck this morning did put them at 68. Patient states that her stools are lightening up and more formed in nature. - Physical Exam Vitals/I&O's: Vital Signs Temp Pulse Resp BP Pulse Ox 97.2 F L 67 18 124/80 H 97 09/29/19 04:15 09/29/19 08:18 09/29/19 07:29 09/29/19 04:15 09/29/19 07:29 Oxygen Flow Rate (L/min) 2 Oxygen Delivery Method Nasal Cannula Weight: 174 lb 6.17 oz Body Mass Index (BMI) 34.0 Finger Stick Blood Glucose 112 Intake and Output for Last 24 Hours 09/27/19 09/28/19 09/29/19 23:59 23:59 23:59 Intake Total 2021.46 / 2038.16 1267.48 / 1267.48 110 / 110 Output Total 2375 / 2375 1175 / 1175 Balance -353.54 / -336.84 92.48 / 92.48 110 / 110 General: Alert, Oriented x3, Cooperative, No apparent distress Lungs: Clear to auscultation Cardiovascular: Regular rate Abdomen: Soft, Non-Distended, Tender - Minimally tender in right lower quadrant, no peritoneal signs Extremities: No clubbing, No cyanosis, No edema Neurological: Cranial nerves II-XII grossly intact Psych/Mental Status: Normal Affect Microbiology Past 72 Hours 09/27/19 14:55 Urine, Clean Catch Urine Culture - Preliminary Gram negative julieta 09/26/19 17:55 Stool Enteric Bacteriology - Final Salmonella Sp. 09/27/19 00:01 Mucosa - Nasopharyngeal Rapid RSV (DFA) - Final 09/27/19 00:01 Mucosa - Nasopharyngeal Influenza Types A,B Direct FA (SHANE) - Final Laboratory Results 09/28/19 11:20: POC Glucose 225 H 09/28/19 13:00: WBC 22.6 H, RBC 4.16 L, Hgb 12.8, Hct 37.3, MCV 89.7, MCH 30.8, MCHC 34.3, RDW Std Deviation 52.2 H, RDW Coeff of Jeff 15.9 H, Plt Count 54 L, Immature Gran % (Auto) 1.800 H, Neut % (Auto) 88.7 H, Lymph % (Auto) 4.9 L, [place] % (Auto) 4.2, Eos % (Auto) 0.1, Baso % (Auto) 0.3, Absolute Neuts (auto) 20.0 H, Absolute Lymphs (auto) 1.11, Nucleated RBC % 0.1, Differential Comment , Platelet Estimate MKD DEC, RBC Morphology N CHROM, Anisocytosis 1+ 09/28/19 13:00: Sodium 139, Potassium 3.6, Chloride 107, Carbon Dioxide 23.0, Anion Gap 9, BUN 67 H, Creatinine 2.47 H, Estim Creat Clear Calc 14.57, Est GFR (MDRD) Af Amer 25 L, Est GFR (MDRD) Non-Af 20 L, BUN/Creatinine Ratio 27.1 H, Glucose 258 H, Calcium 7.7 L 09/28/19 16:17: POC Glucose 238 H 09/28/19 21:45: POC Glucose 242 H 09/28/19 : Diff Path Review Reviewed 09/29/19 06:18: Miscellaneous Test Pending 09/29/19 06:18: WBC 21.4 H, RBC 4.21, Hgb 12.7, Hct 37.6, MCV 89.3, MCH 30.2, MCHC 33.8, RDW Std Deviation 53.0 H, RDW Coeff of Jeff 16.2 H, Plt Count 68 L, Immature Gran % (Auto) 2.800 H, Neut % (Auto) 86.8 H, Lymph % (Auto) 4.5 L, [place] % (Auto) 5.6, Eos % (Auto) 0.0, Baso % (Auto) 0.3, Absolute Neuts (auto) 18.6 H, Absolute Lymphs (auto) 0.97, Nucleated RBC % 0.1, Differential Comment SCANNED, Toxic Granulation 2+ 09/29/19 06:18: Sodium 137, Potassium 4.0, Chloride 107, Carbon Dioxide 24.0, Anion Gap 6, BUN 62 H, Creatinine 2.12 H, Estim Creat Clear Calc 16.98, Est GFR (MDRD) Af Amer 29 L, Est GFR (MDRD) Non-Af 24 L, BUN/Creatinine Ratio 29.2 H, Glucose 206 H, Calcium 7.7 L, Total Bilirubin 0.60, AST 273 H, ALT 686 H, Alkaline Phosphatase 70, Total Protein 5.0 L, Albumin 2.0 L, Globulin 3.0, Albumin/Globulin Ratio 0.7 L 09/29/19 06:37: POC Glucose 214 H Current Medications Albuterol Sulfate (Ventolin Aerosols) 2.5 mg INHALATION Q6H PRN PRN PRN Reason: SOB &/OR WHEEZING Albuterol/Ipratropium (Duoneb) 3 ml INHALATION Q6HWA.RT [facility] Last Admin: 09/29/19 07:28 Dose: 3 ml Documented by: Amiodarone HCl (Cordarone) 200 mg PO DAILY [facility] Last Admin: 09/29/19 08:18 Dose: 200 mg Documented by: Atorvastatin Calcium (Lipitor) 80 mg PO QHS [facility] Last Admin: 09/28/19 21:50 Dose: 80 mg Documented by: Budesonide (Pulmicort Aerosol) 0.5 mg INHALATION Q12H.RT [facility] Last Admin: 09/29/19 07:28 Dose: 0.5 mg Documented by: Diltiazem HCl (Cardizem Cd) 240 mg PO DAILY [facility] Last Admin: 09/29/19 08:19 Dose: 240 mg Documented by: Fluticasone Propionate (Flonase Nasal [place]) 2 spray NASAL DAILY [facility] Last Admin: 09/29/19 08:21 Dose: 2 spray Documented by: Furosemide (Lasix) 40 mg IV DAILY [facility] Last Admin: 09/29/19 08:19 Dose: 40 mg Documented by: Glucagon () 1 mg IM .X1 PRN PRN Reason: Hypoglycemia Pantoprazole Sodium 40 mg/ (Sodium Chloride) 110 mls @ 330 mls/hr IV Q12 [facility] Last Infusion: 09/29/19 09:09 Dose: Infused Documented by: Sodium Chloride () 250 mls @ 15 mls/hr IV .[id number] PRN PRN Reason: Saline Flush Last Infusion: 09/27/19 18:39 Dose: 0 mls/hr Documented by: Dextrose (Dextrose 10%-Water) 250 mls @ 999 mls/hr IV X1 PRN; Protocol PRN Reason: HYPOGLYCEMIA Ceftriaxone Sodium 2 gm/ (Sodium Chloride) 50 mls @ 100 mls/hr IV Q24 [facility] Stop: 10/03/19 10:29 Last Admin: 09/29/19 09:09 Dose: 100 mls/hr Documented by: Insulin Glargine (Lantus ([facility])) 10 units SC QHS [facility] Last Admin: 09/28/19 21:50 Dose: 10 units Documented by: Insulin Human Lispro (Humalog Kwikpen ([facility])) 0 unit SC ACHS [facility]; Protocol Last Admin: 09/29/19 06:40 Dose: 2 units Documented by: Methimazole (Tapazole) 5 mg PO DAILY [facility] Last Admin: 09/29/19 08:27 Dose: 5 mg Documented by: Metoprolol Succinate (Toprol Xl (Beta Isabel)) 25 mg PO BID [facility] Last Admin: 09/29/19 08:18 Dose: 25 mg Documented by: Nystatin (Mycostatin Powder) 1 applic TOPICAL BID [facility]; Protocol Last Admin: 09/29/19 08:21 Dose: 1 applicatio Documented by: Ondansetron HCl (Zofran) 4 mg IV Q8H PRN PRN PRN Reason: NAUSEA/VOMITING Last Admin: 09/26/19 09:10 Dose: 4 mg Documented by: Pramipexole Dihydrochloride (Mirapex) 1 mg PO QHS [facility] Last Admin: 09/28/19 21:50 Dose: 1 mg Documented by: Prochlorperazine Edisylate (Compazine Iv) 10 mg IV Q4H PRN PRN PRN Reason: nausea, vomiting Last Admin: 09/26/19 14:44 Dose: 10 mg Documented by: Sodium Chloride () 10 - 40 ml IV UD PRN PRN Reason: SALINE FLUSH Last Admin: 09/29/19 08:19 Dose: 10 ml Documented by: Medical Necessity - Tobacco Use Smoking Status: Former smoker Assessment/Plan All Active Problems (Last Reviewed 09/26/19 @ 11:18 by Cora Guzman PA-C) Thrombocytopenia (Acute) Sepsis due to Salmonella species with acute hypoxic respiratory failure (Acute) Atrial fibrillation with RVR (Acute) Non-STEMI (non-ST elevated myocardial infarction) (Acute) Acute renal failure (Acute) Vomiting and diarrhea (Acute) Severe dehydration (Acute) Heme positive stool (Acute) Chronic hypoxemic respiratory failure (Resolved) Colitis (Resolved) GI (gastrointestinal bleed) (Resolved) History of DVT (deep vein thrombosis) (Resolved) Hypomagnesemia (Resolved) Hypothyroidism (Resolved) Iron deficiency anemia (Resolved) Severe aortic stenosis (Resolved) 74-year-old female with NSTEMI, A. fib with RVR, fecal occult positive stool right-sided abdominal pain, positive d-dimer, positive for Salmonella in her stool 1. Discussed with patient that if she remains stable would not plan for an urgent EGD or colonoscopy and she would be able to follow-up with her GI doctor Dr. Nixon. However, if something does change would plan to do 1 more urgently while she is here. 2. Leukocytosis/thrombocytopenia etiology unknown, patient's abdominal pain is improved. No plan for any surgical intervention currently Tessie Tesfaye M.D. Pager: [phone] [facility] [address] [place] [address], [address] [place] [address] Office: [phone] Code Visit Inpatient E&M: 82732 Subs Hosp L1
[2019-09-29 11:12] LABS: International Normalized Ratio 1.2; Prothrombin Time (Protime)PT. 15.1 SECONDS (11.7-14.9)
[2019-09-29 11:15] LABS: Bedside Glucose 151 mg/dL (70-110)
--- NOTE | 2019-09-29 12:37 | PCM.DC ---
- Discharge Diagnoses Current Active Problems: Current Active and Chronic Problems (Last Reviewed 09/26/19 @ 11:18 by Cora Guzman PA-C) Thrombocytopenia (Acute) Secondary to sepsis versus heparin-induced thrombocytopenia Sepsis due to Salmonella species with acute hypoxic respiratory failure (Acute) Atrial fibrillation with RVR (Acute) Non-STEMI (non-ST elevated myocardial infarction) (Acute) Acute renal failure (Acute) Vomiting and diarrhea (Acute) Severe dehydration (Acute) Heme positive stool (Acute) You will use the following diet at home:: Calorie/Carbohydrate Controlled (specify 1200, 1400, etc) - 1800 sonja / day, Cardiac Your food should be the consistency of: Regular Your liquids should be the consistency of: Regular/Thin Discharge Activity: Return to Normal Activity Additional Instructions: Talk to your primary care physician about having your CBC and CMP checked in 1 week. If you see black or bloody stools you need to contact a physician immediately. Allergies/Adverse Reactions: Allergies ciprofloxacin [From Cipro] Allergy (Verified 05/11/19 12:25) Rash ciprofloxacin HCl [From Cipro] Allergy (Verified 05/11/19 12:25) Rash gabapentin [From Neurontin] Allergy (Verified 05/11/19 12:25) Rash heparin Allergy (Verified 09/27/19 07:59) Low platelets Medications to take at Discharge Albuterol Aerosols [Ventolin Aerosols] 2.5 mg INHALATION Q4H PRN PRN 09/26/19 Albuterol IH (ProAir) [Proair Hfa] 2 puff INHALATION Q6H PRN PRN 09/26/19 Calcium Carbonate/Vitamin D3 [Calcium 500-Vit D3 200 Tablet] 1 ea PO TID 09/26/19 Cyanocobalamin (Vitamin B-12) [Vitamin B-12] 1,000 mcg PO DAILY 09/26/19 Diltiazem CD [Cardizem CD] 240 mg PO DAILY 09/26/19 Fesoterodine Fumarate [Toviaz] 8 mg PO DAILY 09/26/19 Fluticasone 0.05% [Flonase Nasal [place]] 2 spray NASAL DAILY 09/26/19 Fluticasone/Salmeterol [Advair Hfa 115-21 Mcg Inhaler] 2 puff INHALATION BID 09/26/19 Insulin Aspart [Novolog Flexpen] units SUBCUT TIDCM 09/26/19 Insulin Detemir [Levemir] 50 unit SQ QHS 09/26/19 Iron Polysaccharide Complex [Ferrex 150] 150 mg PO BID 09/26/19 L.acidoph,Paracasei, B.lactis [Probiotic] 1 ea PO DAILY 09/26/19 Linagliptin [Tradjenta] 5 mg PO DAILY 09/26/19 Methimazole 5 mg PO DAILY 09/26/19 Metoprolol Succinate [Toprol Xl] 25 mg PO BID 09/26/19 Nitroglycerin 0.4 mg SL PRN PRN 09/26/19 Nystatin [Nyamyc] 30 gm TP BID 09/26/19 Omeprazole 20 mg PO DAILY 09/26/19 Paroxetine HCl [Paxil] 40 mg PO DAILY 09/26/19 Potassium Chloride [Klor-Con 10] 20 meq PO DAILY 09/26/19 Roflumilast [Daliresp] 500 mcg PO DAILY 09/26/19 Ropinirole HCl 2 mg PO QHS 09/26/19 Suvorexant [Belsomra] 20 mg PO QHS 09/26/19 Tiotropium Sells [Spiriva] 18 mcg IH DAILY 09/26/19 Amiodarone HCl [Cordarone] 200 mg PO DAILY #30 tab 09/29/19 Amoxicillin 500 mg PO BID #22 tab 09/29/19 Apixaban [Eliquis] 2.5 mg PO BID #60 tab 09/29/19 Atorvastatin Calcium [Lipitor] 80 mg PO QHS #30 tab 09/29/19 Furosemide [Lasix] 40 mg PO DAILY #0 09/29/19 The following prescriptions were given: Amoxicillin 500 mg PO BID #22 tab Transmission Status: Pending to [facility] Amiodarone HCl [Cordarone] 200 mg PO DAILY #30 tab Transmission Status: Pending to [facility] Atorvastatin Calcium [Lipitor] 80 mg PO QHS #30 tab Transmission Status: Pending to [facility] Primary Care Physician: Yesenia Leon NP-C [Primary Care Provider] - Please follow up with your Primary Care Physician in: 1 week Test Results: Test results from this visit will be discussed in further detail at your follow-up appointment, if applicable. Please Follow Up With: Yesenia Leon NP-C Please Follow Up With: Moose Killian MD When: 1-2 weeks Please Follow Up With: Clau Iniguez MD When: 2 weeks Please Follow Up With: Pee Gutierrez DO When: 2 weeks Please Follow Up With: Tessie Tesfaye MD When: 2 weeks Proposed Discharge Date: 09/29/19
--- NOTE | 2019-09-29 14:01 | DS.PCM_ITS ---
<David Paredes - Last Filed: 09/29/19 14:01> Discharge Date and Diagnosis - Problem List Patient Problems: Active and Suspected Problems (Last Reviewed 09/26/19 @ 11:18 by Cora Guzman PA-C) Thrombocytopenia (Acute) Secondary to sepsis versus heparin-induced thrombocytopenia Sepsis due to Salmonella species with acute hypoxic respiratory failure (Acute) Atrial fibrillation with RVR (Acute) Non-STEMI (non-ST elevated myocardial infarction) (Acute) Acute renal failure (Acute) Vomiting and diarrhea (Acute) Severe dehydration (Acute) Heme positive stool (Acute) Date of Admission: 09/26/19 Date of Discharge: 09/29/19 - Primary Discharge Diagnosis Active and Suspected Problems (Last Reviewed 09/26/19 @ 11:18 by Cora Guzman PA-C) NSTEMI Acute sepsis 2/2 Salmonella gastroenteritis Paroxysmal Afib with RVR MARILEE Acute on chronic diastolic CHF, pulmonary HTN Elevated D dimer Thrombocytopenia Lupus anticoagulant MTHFR mutation - Secondary Discharge Diagnosis Chronic Problems (Last Reviewed 09/26/19 @ 11:18 by Cora Guzamn PA-C) COPD Right bundle branch block (RBBB) (Chronic) Chronic diastolic heart failure (Chronic) Non-rheumatic aortic stenosis (Chronic) Hyperlipidemia (Chronic) Essential (primary) hypertension (Chronic) Secondary pulmonary arterial hypertension (Chronic) H/O aortic valve replacement (Chronic 12/03/16) TAVR: 23 mm Guillaume-Sapiens S3 valve 12/03/2016 Hyperthyroidism Depression MTHFR mutation Lupus anticoagulant Hospital Course and Treatment Imaging Results: DIAGNOSTICS: CT/Abdomen/Pelvis without Cont IMPRESSION: There is a 1 cm hemorrhagic cyst in the RIGHT kidney. There is a 2 mm stone in the LEFT kidney. There is NO hydronephrosis or hydroureter. There are NO ureteral stones. There is NO bowel obstruction. There are multiple colonic diverticula consistent with diverticulosis. There is NO diverticulitis or colitis. There appears to have been an appendectomy. There has been a hysterectomy. There is NO ascites, free air, abscess or adenopathy. 2D Echo: Interpretation Summary The estimated ejection fraction is 65 %. Unable to assess diastolic dysfunction due to arrhythmia. The left atrium is moderately enlarged. Mild (1+) mitral valve insufficiency. Mild (1+) tricuspid valve insufficiency. Right ventricular systolic pressure estimated to be 29 mmHg. Stable appearing and normal functioniing bioprosthetic aortic valve apparatus. Compared to echo report dated 05/03/2017, LV function has remained the same, and RVSP has improved from 57 to 29 mm Hg. Pt appears to be in atrial fibrillation on today's study. The study was technically difficult. RAD/Chest 1 View (Portable) IMPRESSION: Mild congestive heart failure with small bilateral pleural effusions Stress test: Conclusion: Pharmacologic myocardial perfusion stress test with no evidence of ischemia. Reduced ejection fraction US/Abdomen Limited IMPRESSION: Normal liver. Normal gallbladder. Nondistended common bile duct. Normal head and body of the pancreas. Tail not visualized secondary to bowel gas. Subcentimeter cyst of the right kidney. Otherwise normal right kidney. US/Kidney and Bladder IMPRESSION: Normal size of the kidneys bilaterally without hydronephrosis or stones. 11 x 8 x 5 mm simple cyst of the right kidney. Unremarkable urinary bladder. NM/Lung Scan Vent/Perf IMPRESSION: Normal 99m Tc MAA pulmonary perfusion Tc DTPA aerosol ventilation imaging survey, according to revised PIOPED interpretive criteria. Venous US: Interpretation Summary No evidence for acute deep venous thrombosis bilateral lower extremities with patent and compressible bilateral great saphenous veins. CONSULTATIONS: Dev - Cardiology Brien - Gen Surgery Davi - Neprhrology Saurav - Heme/Onc Operations: None Procedures: 2-D Echocardiogram, Stress test Summary of Care Provided: Hospital Course: The patient is a 74 year old F with pmhx remarkable for hx paroxysmal Afib, with prior TAVR, diastolic CHF and pulmonary HTN, Lupus anticoagulant, MTHFR mutation, DMt2, hyperthyroidism, COPD, Dmt2, who presented to the ER with c/o vomiting and diarrhea for 2 adys prior to admission, possible black stools and coffee ground emesis. In the ER she had elevated troponin c/w NSTEMI, Afib with RVR, MARILEE, + guiac however normal Hgb, low platelets. She was admitted for NSTEMI, Afib /RVR, MARILEE, and suspected gastroenteritis. Overnight her breathing became worse and she was felt have acute on chronic diastolic CHF and started on IV lasix. Cardiology , nephrology, and general surgery were consulted. She was treated with cardizem drip and heparin drip. Heparin was DCd due to decreasing platelets and heme/onc was consulted. The pt converted to NSR with good rate control and she was transitioned to PO cardizem and beta isabel. She had an echo which showed EF 65%, stable aortic valve, no wall abnormalities. She went for a stress test which was negative. Renal function recovered while on IV lasix and her SOB resolved with IV lasix. Her stool tested positive for Salmonella, and she was started on rocephin. Blood in the stool was attributed to a small amount of bleeding from gastroenteritis, as her Hgb did not significantly decline while here. General surgery did not think that this warranted endoscopy at this time. She had abnormal LFTs and increased bili, and RUQ pain/tenderness so a RUQ ultrasound was done - this was negative. CT abdomen showed no acute process. She also had an US of her kidneys which was unremarkable. She had an elevated D dimer while here, however a VQ scan and LE venous doppler were negative for clots. The salmonella came back sensitive to ampicillin so she was concerted to PO amoxicillin to complete 14 days of therapy. With regards to her Afib/RVR she had a high sasha/vasc score of 7. There initially were concerns about the stool + g uiac, however she had insignificant blood in the stool as evidenced by stable Hgb throughout her stay, and the Salmonella was felt to be the cause which was now asymptomatic. She had bleeding issues with coumadin in the past. Oncology was ok with starting a Xa inhibitor if the platelets improved, which they increased to 68k. Cardiology felt anticoagulation was warranted given her high risk of stroke. They felt that eliquis at a low dose was most appropriate. She cannot have aspirin right now with her low platelets. She was dicharged home in stable condition. She will need follow up with Cardiology in 1-2 weeks, her PCP in 1- 2 weeks, General surgery in 2 weeks, Nephrology in 2 weeks, and Heme/Onc in 2 weeks. She will need a CBC within a week. This patient was seen by David Paredes PA-C under the supervision of Dr. Gilmore. Patient Problems: Active and Suspected Problems (Last Reviewed 09/26/19 @ 11:18 by Cora Guzman PA-C) Thrombocytopenia (Acute) Secondary to sepsis versus heparin-induced thrombocytopenia Sepsis due to Salmonella species with acute hypoxic respiratory failure (Acute) Atrial fibrillation with RVR (Acute) Non-STEMI (non-ST elevated myocardial infarction) (Acute) Acute renal failure (Acute) Vomiting and diarrhea (Acute) Severe dehydration (Acute) Heme positive stool (Acute) - Physical Exam Vitals/I&O's: Vital Signs Temp Pulse Resp BP Pulse Ox 98.2 F 72 18 129/73 H 92 09/29/19 10:15 09/29/19 13:18 09/29/19 13:18 09/29/19 10:15 09/29/19 10:15 Oxygen Flow Rate (L/min) 2 Oxygen Delivery Method Room Air Weight: 174 lb 6.17 oz Body Mass Index (BMI) 34.0 Finger Stick Blood Glucose 112 Intake and Output for Last 24 Hours 09/27/19 09/28/19 09/29/19 23:59 23:59 23:59 Intake Total 2021.46 / 2038.16 1267.48 / 1267.48 426.5 / 426.5 Output Total 2375 / 2375 1175 / 1175 Balance -353.54 / -336.84 92.48 / 92.48 426.5 / 426.5 General: Alert, Oriented x3, Cooperative HEENT: Atraumatic, PERRLA, EOMI, Normocephalic Neck: Supple, No JVD, Negative Carotid Bruits Lungs: Clear to auscultation, Normal air movement Cardiovascular: Regular rate, No murmurs Abdomen: Bowel Sounds Present, Soft, Non Tender, Obese Extremities: No edema, Capillary Refill Less than 3 Seconds Skin: No rashes, No breakdown Musculoskeletal: No Tenderness to Palpation of Joints or Extremities Neurological: Cranial nerves II-XII grossly intact Psych/Mental Status: Normal Affect, Appropriate, Alert and oriented to time, place, person, mood and affect Microbiology Past 72 Hours 09/27/19 14:55 Urine, Clean Catch Urine Culture - Preliminary Presumptive Salmonella Group 09/26/19 17:55 Stool Enteric Bacteriology - Final Salmonella Sp. 09/27/19 00:01 Mucosa - Nasopharyngeal Rapid RSV (DFA) - Final 09/27/19 00:01 Mucosa - Nasopharyngeal Influenza Types A,B Direct FA (SHANE) - Final Laboratory Results 09/28/19 13:00: Differential Comment , Platelet Estimate MKD DEC, RBC Morphology N CHROM, Anisocytosis 1+ 09/28/19 16:17: POC Glucose 238 H 09/28/19 21:45: POC Glucose 242 H 09/29/19 06:18: Miscellaneous Test Pending 09/29/19 06:18: WBC 21.4 H, RBC 4.21, Hgb 12.7, Hct 37.6, MCV 89.3, MCH 30.2, MCHC 33.8, RDW Std Deviation 53.0 H, RDW Coeff of Jeff 16.2 H, Plt Count 68 L, Immature Gran % (Auto) 2.800 H, Neut % (Auto) 86.8 H, Lymph % (Auto) 4.5 L, Boone % (Auto) 5.6, Eos % (Auto) 0.0, Baso % (Auto) 0.3, Absolute Neuts (auto) 18.6 H, Absolute Lymphs (auto) 0.97, Nucleated RBC % 0.1, Differential Comment SCANNED, Toxic Granulation 2+ 09/29/19 06:18: Sodium 137, Potassium 4.0, Chloride 107, Carbon Dioxide 24.0, Anion Gap 6, BUN 62 H, Creatinine 2.12 H, Estim Creat Clear Calc 16.98, Est GFR (MDRD) Af Amer 29 L, Est GFR (MDRD) Non-Af 24 L, BUN/Creatinine Ratio 29.2 H, Glucose 206 H, Calcium 7.7 L, Total Bilirubin 0.60, AST 273 H, ALT 686 H, Alkali ne Phosphatase 70, Total Protein 5.0 L, Albumin 2.0 L, Globulin 3.0, Albumin/Globulin Ratio 0.7 L 09/29/19 06:37: POC Glucose 214 H 09/29/19 10:45: PT 15.1 H, INR 1.2 09/29/19 11:08: POC Glucose 151 H Current Medications Albuterol Sulfate (Ventolin Aerosols) 2.5 mg INHALATION Q6H PRN PRN PRN Reason: SOB &/OR WHEEZING Albuterol/Ipratropium (Duoneb) 3 ml INHALATION Q6HWA.RT [facility] Last Admin: 09/29/19 13:17 Dose: 3 ml Documented by: Amiodarone HCl (Cordarone) 200 mg PO DAILY [facility] Last Admin: 09/29/19 08:18 Dose: 200 mg Documented by: Atorvastatin Calcium (Lipitor) 80 mg PO QHS [facility] Last Admin: 09/28/19 21:50 Dose: 80 mg Documented by: Budesonide (Pulmicort Aerosol) 0.5 mg INHALATION Q12H.RT [facility] Last Admin: 09/29/19 07:28 Dose: 0.5 mg Documented by: Diltiazem HCl (Cardizem Cd) 240 mg PO DAILY [facility] Last Admin: 09/29/19 08:19 Dose: 240 mg Documented by: Fluticasone Propionate (Flonase Nasal [place]) 2 spray NASAL DAILY [facility] Last Admin: 09/29/19 08:21 Dose: 2 spray Documented by: Furosemide (Lasix) 40 mg IV DAILY [facility] Last Admin: 09/29/19 08:19 Dose: 40 mg Documented by: Glucagon () 1 mg IM .X1 PRN PRN Reason: Hypoglycemia Pantoprazole Sodium 40 mg/ (Sodium Chloride) 110 mls @ 330 mls/hr IV Q12 [facility] Last Infusion: 09/29/19 09:09 Dose: Infused Documented by: Sodium Chloride () 250 mls @ 15 mls/hr IV .[id number] PRN PRN Reason: Saline Flush Last Infusion: 09/29/19 10:36 Dose: 0 mls/hr Documented by: Dextrose (Dextrose 10%-Water) 250 mls @ 999 mls/hr IV X1 PRN; Protocol PRN Reason: HYPOGLYCEMIA Ceftriaxone Sodium 2 gm/ (Sodium Chloride) 50 mls @ 100 mls/hr IV Q24 [facility] Stop: 10/03/19 10:29 Last Infusion: 09/29/19 10:35 Dose: Infused Documented by: Insulin Glargine (Lantus (Bkc)) 10 units SC QHS [facility] Last Admin: 09/28/19 21:50 Dose: 10 units Documented by: Insulin Human Lispro (Humalog Kwikpen (Bkc)) 0 unit SC ACHS [facility]; Protocol Last Admin: 09/29/19 11:09 Dose: 1 units Documented by: Methimazole (Tapazole) 5 mg PO DAILY [facility] Last Admin: 09/29/19 08:27 Dose: 5 mg Documented by: Metoprolol Succinate (Toprol Xl (Beta Isabel)) 25 mg PO BID [facility] Last Admin: 09/29/19 08:18 Dose: 25 mg Documented by: Nystatin (Mycostatin Powder) 1 applic TOPICAL BID [facility]; Protocol Last Admin: 09/29/19 08:21 Dose: 1 applicatio Documented by: Ondansetron HCl (Zofran) 4 mg IV Q8H PRN PRN PRN Reason: NAUSEA/VOMITING Last Admin: 09/26/19 09:10 Dose: 4 mg Documented by: Pramipexole Dihydrochloride (Mirapex) 1 mg PO QHS [facility] Last Admin: 09/28/19 21:50 Dose: 1 mg Documented by: Prochlorperazine Edisylate (Compazine Iv) 10 mg IV Q4H PRN PRN PRN Reason: nausea, vomiting Last Admin: 09/26/19 14:44 Dose: 10 mg Documented by: Sodium Chloride () 10 - 40 ml IV UD PRN PRN Reason: SALINE FLUSH Last Admin: 09/29/19 08:19 Dose: 10 ml Documented by: Discharge Diet: Low fat/ Low Cholesterol, 1800 Calorie Control Diet, 2000 mg Sodium Diet Discharge Activity: Return to Normal Activity Home Medications: Medications to take at Discharge Albuterol Aerosols [Ventolin Aerosols] 2.5 mg INHALATION Q4H PRN PRN 09/26/19 Albuterol IH (ProAir) [Proair Hfa] 2 puff INHALATION Q6H PRN PRN 09/26/19 Calcium Carbonate/Vitamin D3 [Calcium 500-Vit D3 200 Tablet] 1 ea PO TID 09/26/19 Cyanocobalamin (Vitamin B-12) [Vitamin B-12] 1,000 mcg PO DAILY 09/26/19 Diltiazem CD [Cardizem CD] 240 mg PO DAILY 09/26/19 Fesoterodine Fumarate [Toviaz] 8 mg PO DAILY 09/26/19 Fluticasone 0.05% [Flonase Nasal [place]] 2 spray NASAL DAILY 09/26/19 Fluticasone/Salmeterol [Advair Hfa 115-21 Mcg Inhaler] 2 puff INHALATION BID 09/26/19 Insulin Aspart [Novolog Flexpen] units SUBCUT TIDCM 09/26/19 Insulin Detemir [Levemir] 50 unit SQ QHS 09/26/19 Iron Polysaccharide Complex [Ferrex 150] 150 mg PO BID 09/26/19 L.acidoph,Paracasei, B.lactis [Probiotic] 1 ea PO DAILY 09/26/19 Linagliptin [Tradjenta] 5 mg PO DAILY 09/26/19 Methimazole 5 mg PO DAILY 09/26/19 Metoprolol Succinate [Toprol Xl] 25 mg PO BID 09/26/19 Nitroglycerin 0.4 mg SL PRN PRN 09/26/19 Nystatin [Nyamyc] 30 gm TP BID 09/26/19 Omeprazole 20 mg PO DAILY 09/26/19 Paroxetine HCl [Paxil] 40 mg PO DAILY 09/26/19 Potassium Chloride [Klor-Con 10] 20 meq PO DAILY 09/26/19 Roflumilast [Daliresp] 500 mcg PO DAILY 09/26/19 Ropinirole HCl 2 mg PO QHS 09/26/19 Suvorexant [Belsomra] 20 mg PO QHS 09/26/19 Tiotropium Lindsey [Spiriva] 18 mcg IH DAILY 09/26/19 Amiodarone HCl [Cordarone] 200 mg PO DAILY #30 tab 09/29/19 Amoxicillin 500 mg PO BID #22 tab 09/29/19 Apixaban [Eliquis] 2.5 mg PO BID #60 tab 09/29/19 Atorvastatin Calcium [Lipitor] 80 mg PO QHS #30 tab 09/29/19 Furosemide [Lasix] 40 mg PO DAILY #0 09/29/19 Following Prescrptions Were Given to Patient: Amoxicillin 500 mg PO BID #22 tab Transmission Status: Received by [address] Amiodarone HCl [Cordarone] 200 mg PO DAILY #30 tab Transmission Status: Received by [address] Apixaban [Eliquis] 2.5 mg PO BID #60 tab Transmission Status: Received by [address] Atorvastatin Calcium [Lipitor] 80 mg PO QHS #30 tab Transmission Status: Received by [address] Primary Care Physician: Yesenia Leon NP-C [Primary Care Provider] - Please follow up with your Primary Care Physician in: 1 week Please Follow Up With: Yesenia Leon NP-C Please Follow Up With: Moose Killian MD When: 1-2 weeks Please Follow Up With: Clau Iniguez MD When: 2 weeks Please Follow Up With: Pee Gutierrez DO When: 2 weeks Please Follow Up With: Tessie Tesfaye MD When: 2 weeks Please Follow Up With: Moose Killian MD When: 1-2 weeks Disposition: Home Minutes spent on discharge:: 35 Patient Condition:: Stable Medical Necessity - Tobacco Use Smoking Status: Former smoker Meaningful Use Info Meaningful Use Diagnoses (Choose all that apply): None applicable <Lena Gilmore - Last Filed: 09/29/19 15:00> Discharge Date and Diagnosis - Primary Discharge Diagnosis Active and Suspected Problems (Last Reviewed 09/26/19 @ 11:18 by Cora Guzman PA-C) Thrombocytopenia (Acute) Secondary to sepsis versus heparin-induced thrombocytopenia Sepsis due to Salmonella species with acute hypoxic respiratory failure (Acute) Atrial fibrillation with RVR (Acute) Non-STEMI (non-ST elevated myocardial infarction) (Acute) Acute renal failure (Acute) Vomiting and diarrhea (Acute) Severe dehydration (Acute) Heme positive stool (Acute) - Secondary Discharge Diagnosis Chronic Problems (Last Reviewed 09/26/19 @ 11:18 by Cora Guzman PA-C) COPD exacerbation (Chronic) Right bundle branch block (RBBB) (Chronic) Chronic diastolic heart failure (Chronic) Non-rheumatic aortic stenosis (Chronic) Hyperlipidemia (Chronic) Essential (primary) hypertension (Chronic) Secondary pulmonary arterial hypertension (Chronic) H/O aortic valve replacement (Chronic 12/03/16) TAVR: 23 mm Guillaume-Sapiens S3 valve 12/03/2016 Hospital Course and Treatment Summary of Care Provided: Patient seen by David Paredes PA-C under my supervision. The patient is a 74 year old F with an extensive past medical history as listed. She was admitted through the ED with a complaint of vomiting and diarrhea for 2 days prior to admission with possible black stools and coffee-ground emesis. She was found to have elevated troponin in the ED and was diagnosed with non- STEMI and she was also in A. fib with RVR. She was also managed for MARILEE which was thought to be due to hydration from diarrhea and vomiting. She was found to be having Salmonella in his stool and was managed for Salmonella gastroenteritis. Her breathing worsened and she was diagnosed with acute on chronic diastolic heart failure and started on diuresis with IV Lasix. She was started on Cardizem drip and heparin drip for A. fib with RVR as well. However subsequently had decrease in her platelets and hematology was consulted. She was given Rocephin for Salmonella gastroenteritis and diarrhea eventually resolved. 2D echo done showed EF of 65% with stable aortic valve she had stress test which was negative. MARILEE resolved and shortness of breath resolved with diuresis. Of note, platelets fell to around 30 but climbed up to 68 on day of discharge. Patient's Sasha Vascor was 7 so she warranted anticoagulation. However in light of her positive guaiac stool and thrombocytopenia, there were concerns about starting anticoagulation. Patient is also had a history of being lupus anticoagulant positive. General surgery was consulted but did not think it was necessary to do any EGD or colonoscopy whilst she was in-house as she did not have significant anemia and positive occult blood was thought to be due to diarrhea. Per hematology documentation, heparin-induced thrombocytopenia was thought to be unlikely given the acute presentation of sepsis and decreasing platelet counts within 48 hours of admission. Was thought to be more likely due to sepsis. Plan was to avoid aspirin and heparin and low molecular weight heparin. Of note, patient had elevated d-dimer on admission and VQ scan done was negative. On day of discharge, choice of anticoagulation was discussed with banquet lead covering for Dr. Gutierrez. Ammonia Still Operator suggested that patient is to be started on Coumadin because of her positive lupus anticoagulant. However he had been documented by hematology previously that patient could only use either a factor Xa inhibitor or bivalirudin. Case was discussed on phone with patient's primary banquet lead Dr. Gutierrez was okay with patient starting a factor Xa inhibitor if the platelets improved. At 68,000, he was okay with patient going home on low-dose Eliquis. Cardiology- Dr Méndez, was also on board with patient going home on low-dose Eliquis. Patient was discharged home to follow- up with cardiology, primary care physician and general surgery as well as nephrology and hematology. She is to have repeat CBC within a week to follow-up on her platelet count. Patient seen and examined prior to discharge. She felt well and had no complaints. Review of systems otherwise negative. Labs and vitals reviewed. Home medication reviewed and reconciled. o/e: Vital Signs Height 5 ft Weight: 174 lb 6.17 oz Weight in Pounds 174.4 lbs Pulse Ox [] 90 Pulse Ox [] 85 Pulse Ox [] 92 Pulse Ox 92 Temperature 97.7 F Pulse Rate 72 Respiratory Rate 18 Blood Pressure [BP] 106/59 Blood Pressure 114/70 Blood Pressure Position [BP] Semi-Fowlers Blood Pressure Position Semi-Fowlers [] General: Alert, Oriented x3, Cooperative HEENT: Atraumatic, PERRLA, EOMI, Normocephalic Neck: Supple, No JVD, Negative Carotid Bruits Lungs: Clear to auscultation, Normal air movement Cardiovascular: Regular rate, No murmurs Abdomen: Bowel Sounds Present, Soft, Non Tender, Obese Extremities: No edema, Capillary Refill Less than 3 Seconds Skin: No rashes, No breakdown Musculoskeletal: No Tenderness to Palpation of Joints or Extremities Neurological: Cranial nerves II-XII grossly intact Psych/Mental Status: Normal Affect, Appropriate, Alert and oriented to time, place, person, mood and affect Plan as above. Rest of management as per David Paredes PA-C's note, which I have reviewed and endorsed. - Physical Exam Vitals/I&O's: Vital Signs Temp Pulse Resp BP Pulse Ox 97.7 F L 72 18 114/70 92 09/29/19 14:38 09/29/19 14:38 09/29/19 14:38 09/29/19 14:38 09/29/19 14:38 Oxygen Flow Rate (L/min) 2 Oxygen Delivery Method Room Air Weight: 174 lb 6.17 oz Body Mass Index (BMI) 34.0 Finger Stick Blood Glucose 112 Intake and Output for Last 24 Hours 09/27/19 09/28/19 09/29/19 23:59 23:59 23:59 Intake Total 2020.46 / 2038.16 1267.48 / 1267.48 426.5 / 426.5 Output Total 2375 / 2375 1175 / 1175 Balance -353.54 / -336.84 92.48 / 92.48 426.5 / 426.5 Microbiology Past 72 Hours 09/27/19 14:55 Urine, Clean Catch Urine Culture - Preliminary Presumptive Salmonella Group 09/26/19 17:55 Stool Enteric Bacteriology - Final Salmonella Sp. 09/27/19 00:01 Mucosa - Nasopharyngeal Rapid RSV (DFA) - Final 09/27/19 00:01 Mucosa - Nasopharyngeal Influenza Types A,B Direct FA (SHANE) - Final Laboratory Results 09/28/19 16:17: POC Glucose 238 H 09/28/19 21:45: POC Glucose 242 H 09/29/19 06:18: Miscellaneous Test Pending 09/29/19 06:18: WBC 21.4 H, RBC 4.21, Hgb 12.7, Hct 37.6, MCV 89.3, MCH 30.2, MCHC 33.8, RDW Std Deviation 53.0 H, RDW Coeff of Jeff 16.2 H, Plt Count 68 L, Immature Gran % (Auto) 2.800 H, Neut % (Auto) 86.8 H, Lymph % (Auto) 4.5 L, Boone % (Auto) 5.6, Eos % (Auto) 0.0, Baso % (Auto) 0.3, Absolute Neuts (auto) 18.6 H , Absolute Lymphs (auto) 0.97, Nucleated RBC % 0.1, Differential Comment SCANNED, Toxic Granulation 2+ 09/29/19 06:18: Sodium 137, Potassium 4.0, Chloride 107, Carbon Dioxide 24.0, Anion Gap 6, BUN 62 H, Creatinine 2.12 H, Estim Creat Clear Calc 16.98, Est GFR (MDRD) Af Amer 29 L, Est GFR (MDRD) Non-Af 24 L, BUN/Creatinine Ratio 29.2 H, Glucose 206 H, Calcium 7.7 L, Total Bilirubin 0.60, AST 273 H, ALT 686 H, Alkaline Phosphatase 70, Total Protein 5.0 L, Albumin 2.0 L, Globulin 3.0, Albumin/Globulin Ratio 0.7 L 09/29/19 06:37: POC Glucose 214 H 09/29/19 10:45: PT 15.1 H, INR 1.2 09/29/19 11:08: POC Glucose 151 H Current Medications Albuterol Sulfate (Ventolin Aerosols) 2.5 mg INHALATION Q6H PRN PRN PRN Reason: SOB &/OR WHEEZING Albuterol/Ipratropium (Duoneb) 3 ml INHALATION Q6HWA.RT [facility] Last Admin: 09/29/19 13:17 Dose: 3 ml Documented by: Amiodarone HCl (Cordarone) 200 mg PO DAILY [facility] Last Admin: 09/29/19 08:18 Dose: 200 mg Documented by: Atorvastatin Calcium (Lipitor) 80 mg PO QHS [facility] Last Admin: 09/28/19 21:50 Dose: 80 mg Documented by: Budesonide (Pulmicort Aerosol) 0.5 mg INHALATION Q12H.RT [facility] Last Admin: 09/29/19 07:28 Dose: 0.5 mg Documented by: Diltiazem HCl (Cardizem Cd) 240 mg PO DAILY [facility] Last Admin: 09/29/19 08:19 Dose: 240 mg Documented by: Fluticasone Propionate (Flonase Nasal [place]) 2 spray NASAL DAILY [facility] Last Admin: 09/29/19 08:21 Dose: 2 spray Documented by: Furosemide (Lasix) 40 mg IV DAILY [facility] Last Admin: 09/29/19 08:19 Dose: 40 mg Documented by: Glucagon () 1 mg IM .X1 PRN PRN Reason: Hypoglycemia Pantoprazole Sodium 40 mg/ (Sodium Chloride) 110 mls @ 330 mls/hr IV Q12 [facility] Last Infusion: 09/29/19 09:09 Dose: Infused Documented by: Sodium Chloride () 250 mls @ 15 mls/hr IV .[id number] PRN PRN Reason: Saline Flush Last Infusion: 09/29/19 10:36 Dose: 0 mls/hr Documented by: Dextrose (Dextrose 10%-Water) 250 mls @ 999 mls/hr IV X1 PRN; Protocol PRN Reason: HYPOGLYCEMIA Ceftriaxone Sodium 2 gm/ (Sodium Chloride) 50 mls @ 100 mls/hr IV Q24 [facility] Stop: 10/03/19 10:29 Last Infusion: 09/29/19 10:35 Dose: Infused Documented by: Insulin Glargine (Lantus (Bkc)) 10 units SC QHS [facility] Last Admin: 09/28/19 21:50 Dose: 10 units Documented by: Insulin Human Lispro (Humalog Kwikpen (Bkc)) 0 unit SC ACHS [facility]; Protocol Last Admin: 09/29/19 11:09 Dose: 1 units Documented by: Methimazole (Tapazole) 5 mg PO DAILY [facility] Last Admin: 09/29/19 08:27 Dose: 5 mg Documented by: Metoprolol Succinate (Toprol Xl (Beta Isabel)) 25 mg PO BID [facility] Last Admin: 09/29/19 08:18 Dose: 25 mg Documented by: Nystatin (Mycostatin Powder) 1 applic TOPICAL BID [facility]; Protocol Last Admin: 09/29/19 08:21 Dose: 1 applicatio Documented by: Ondansetron HCl (Zofran) 4 mg IV Q8H PRN PRN PRN Reason: NAUSEA/VOMITING Last Admin: 09/26/19 09:10 Dose: 4 mg Documented by: Pramipexole Dihydrochloride (Mirapex) 1 mg PO QHS [facility] Last Admin: 09/28/19 21:50 Dose: 1 mg Documented by: Prochlorperazine Edisylate (Compazine Iv) 10 mg IV Q4H PRN PRN PRN Reason: nausea, vomiting Last Admin: 09/26/19 14:44 Dose: 10 mg Documented by: Sodium Chloride () 10 - 40 ml IV UD PRN PRN Reason: SALINE FLUSH Last Admin: 09/29/19 08:19 Dose: 10 ml Documented by: Code Visit Inpatient E&M: [id number] Disch Hosp
--- NOTE | 2019-09-29 14:38 | CASEMGMT ---
Case Management Progress Note: [id number]-Called patient pharmacy, [facility] in [place] and s/w Jyotsna, patient does not have a copay for Eliquis but they will not have it in stock until Tuesday. Patient informed of this and aware this expert medical writer will discuss with primary nurse to assure has Eliquis until her pharmacy has it available. Per MD Am report patient for PDC today. CM noted ACI placed. Per PT/OT notes, recommending additional therapy. This Cm s/w patient at bedside and informed, agrees with plan, In [facility] list provided and patient chooses [facility]. Faxed facesheet and orders to [facility], VM left with Emma. Patient states her oxygen is Currently with [facility] in [place] #[phone] and her oxygen order is currently at night and as needed, states has portable oxygen tanks at home. States that she has nobody close to pick her up and inquiring about hospital transportation to assist. S/w her about if her O2 desats with exertion and needing portable O2 tank ordered-patient states that she will not need a portable tank ordered as she lives close and doing ok at rest on room air now. Updated primary nurse Eryn to discuss with hospital provider regarding oxygen testing/needs as well as if DC'd home today needing Eliquis coverage sent to [facility] pharmacy as her pharmacy will not have in stock until Tuesday. Also made aware Referral to [facility] done and green sheet to be placed on chart. 1428- Called [facility] and s/w Phoebe who paged inspector insulation tour driver. Return call from tour driver Jason and deni does not have access to confirm patient current oxygen orders or confirm is active with them on the weekend. [facility] does not think there will need to be any order changes and to call [facility] if needing a Portable tank and he can deliver one to patient. Florin Saldivar, SUSICM
--- NOTE | 2019-09-29 15:16 | PN_ITS ---
<David Paredes - Last Filed: 09/29/19 15:16> Patient Problems: Active and Suspected Problems (Last Reviewed 09/26/19 @ 11:18 by Cora Guzman PA-C) Thrombocytopenia (Acute) Secondary to sepsis versus heparin-induced thrombocytopenia Sepsis due to Salmonella species with acute hypoxic respiratory failure (Acute) Atrial fibrillation with RVR (Acute) Non-STEMI (non-ST elevated myocardial infarction) (Acute) Acute renal failure (Acute) Vomiting and diarrhea (Acute) Severe dehydration (Acute) Heme positive stool (Acute) Subjective: Pt without any nausea/vomiting/abdominal pain today. She has no SOB at rest. When she got up to walk she declined to 85% O2. She had initially refused CM and said she would not need anything or any therapy at [place]. Vitals/I&O's: Vital Signs Temp Pulse Resp BP Pulse Ox 97.7 F L 72 18 114/70 92 09/29/19 14:38 09/29/19 14:38 09/29/19 14:38 09/29/19 14:38 09/29/19 14:53 Oxygen Flow Rate (L/min) [ 2 AMBULATION with Oxygen] Oxygen Flow Rate (L/min) [ 0 AMBULATING on Room Air] Oxygen Flow Rate (L/min) [At 0 REST on Room Air] Oxygen Flow Rate (L/min) 2 Oxygen Delivery Method Room Air Weight: 174 lb 6.17 oz Body Mass Index (BMI) 34.0 Finger Stick Blood Glucose 112 Intake and Output for Last 24 Hours 09/27/19 09/28/19 09/29/19 23:59 23:59 23:59 Intake Total 2020.46 / 8.16 1267.48 / 1267.48 628.25 / 628.25 Output Total 2375 / 2375 1175 / 1175 Balance -353.54 / -336.84 92.48 / 92.48 628.25 / 628.25 General: Alert, Oriented x3, Cooperative HEENT: Atraumatic, PERRLA, EOMI, Normocephalic Neck: Supple, No JVD, Negative Carotid Bruits Lungs: Clear to auscultation, Normal air movement Cardiovascular: Regular rate, No murmurs Abdomen: Bowel Sounds Present, Soft, Non Tender Extremities: No edema, Capillary Refill Less than 3 Seconds Skin: No rashes, No breakdown Musculoskeletal: No Tenderness to Palpation of Joints or Extremities Neurological: Cranial nerves II-XII grossly intact Psych/Mental Status: Normal Affect, Appropriate, Alert and oriented to time, place, person, mood and affect Microbiology Past 72 Hours 09/27/19 14:55 Urine, Clean Catch Urine Culture - Preliminary Presumptive Salmonella Group 09/26/19 17:55 Stool Enteric Bacteriology - Final Salmonella Sp. 09/27/19 00:01 Mucosa - Nasopharyngeal Rapid RSV (DFA) - Final 09/27/19 00:01 Mucosa - Nasopharyngeal Influenza Types A,B Direct FA (SHANE) - Final Laboratory Results 09/28/19 16:17: POC Glucose 238 H 09/28/19 21:45: POC Glucose 242 H 09/29/19 06:18: Miscellaneous Test Pending 09/29/19 06:18: WBC 21.4 H, RBC 4.21, Hgb 12.7, Hct 37.6, MCV 89.3, MCH 30.2, MCHC 33.8, RDW Std Deviation 53.0 H, RDW Coeff of Jeff 16.2 H, Plt Count 68 L, Immature Gran % (Auto) 2.800 H, Neut % (Auto) 86.8 H, Lymph % (Auto) 4.5 L, [place] % (Auto) 5.6, Eos % (Auto) 0.0, Baso % (Auto) 0.3, Absolute Neuts (auto) 18.6 H, Absolute Lymphs (auto) 0.97, Nucleated RBC % 0.1, Differential Comment SCANNED, Toxic Granulation 2+ 09/29/19 06:18: Sodium 137, Potassium 4.0, Chloride 107, Carbon Dioxide 24.0, Anion Gap 6, BUN 62 H, Creatinine 2.12 H, Estim Creat Clear Calc 16.98, Est GFR (MDRD) Af Amer 29 L, Est GFR (MDRD) Non-Af 24 L, BUN/Creatinine Ratio 29.2 H, Glucose 206 H, Calcium 7.7 L, Total Bilirubin 0.60, AST 273 H, ALT 686 H, Alkaline Phosphatase 70, Total Protein 5.0 L, Albumin 2.0 L, Globulin 3.0, Albumin/Globulin Ratio 0.7 L 09/29/19 06:37: POC Glucose 214 H 09/29/19 10:45: PT 15.1 H, INR 1.2 09/29/19 11:08: POC Glucose 151 H Current Medications Albuterol Sulfate (Ventolin Aerosols) 2.5 mg INHALATION Q6H PRN PRN PRN Reason: SOB &/OR WHEEZING Albuterol/Ipratropium (Duoneb) 3 ml INHALATION Q6HWA.RT [facility] Last Admin: 09/29/19 13:17 Dose: 3 ml Documented by: Amiodarone HCl (Cordarone) 200 mg PO DAILY [facility] Last Admin: 09/29/19 08:18 Dose: 200 mg Documented by: Atorvastatin Calcium (Lipitor) 80 mg PO QHS [facility] Last Admin: 09/28/19 21:50 Dose: 80 mg Documented by: Budesonide (Pulmicort Aerosol) 0.5 mg INHALATION Q12H.RT [facility] Last Admin: 09/29/19 07:28 Dose: 0.5 mg Documented by: Diltiazem HCl (Cardizem Cd) 240 mg PO DAILY [facility] Last Admin: 09/29/19 08:19 Dose: 240 mg Documented by: Fluticasone Propionate (Flonase Nasal [place]) 2 spray NASAL DAILY [facility] Last Admin: 09/29/19 08:21 Dose: 2 spray Documented by: Furosemide (Lasix) 40 mg IV DAILY [facility] Last Admin: 09/29/19 08:19 Dose: 40 mg Documented by: Glucagon () 1 mg IM .X1 PRN PRN Reason: Hypoglycemia Pantoprazole Sodium 40 mg/ (Sodium Chloride) 110 mls @ 330 mls/hr IV Q12 [facility] Last Infusion: 09/29/19 09:09 Dose: Infused Documented by: Sodium Chloride () 250 mls @ 15 mls/hr IV .[id number] PRN PRN Reason: Saline Flush Last Infusion: 09/29/19 14:55 Dose: Infused Documented by: Dextrose (Dextrose 10%-Water) 250 mls @ 999 mls/hr IV X1 PRN; Protocol PRN Reason: HYPOGLYCEMIA Ceftriaxone Sodium 2 gm/ (Sodium Chloride) 50 mls @ 100 mls/hr IV Q24 [facility] Stop: 10/03/19 10:29 Last Infusion: 09/29/19 10:35 Dose: Infused Documented by: Insulin Glargine (Lantus (Bkc)) 10 units SC QHS [facility] Last Admin: 09/28/19 21:50 Dose: 10 units Documented by: Insulin Human Lispro (Humalog Kwikpen (Bkc)) 0 unit SC [facility]; Protocol Last Admin: 09/29/19 11:09 Dose: 1 units Documented by: Methimazole (Tapazole) 5 mg PO DAILY [facility] Last Admin: 09/29/19 08:27 Dose: 5 mg Documented by: Metoprolol Succinate (Toprol Xl (Beta Isabel)) 25 mg PO BID [facility] Last Admin: 09/29/19 08:18 Dose: 25 mg Documented by: Nystatin (Mycostatin Powder) 1 applic TOPICAL BID [facility]; Protocol Last Admin: 09/29/19 08:21 Dose: 1 applicatio Documented by: Ondansetron HCl (Zofran) 4 mg IV Q8H PRN PRN PRN Reason: NAUSEA/VOMITING Last Admin: 09/26/19 09:10 Dose: 4 mg Documented by: Pramipexole Dihydrochloride (Mirapex) 1 mg PO QHS [facility] Last Admin: 09/28/19 21:50 Dose: 1 mg Documented by: Prochlorperazine Edisylate (Compazine Iv) 10 mg IV Q4H PRN PRN PRN Reason: nausea, vomiting Last Admin: 09/26/19 14:44 Dose: 10 mg Documented by: Sodium Chloride () 10 - 40 ml IV UD PRN PRN Reason: SALINE FLUSH Last Admin: 09/29/19 08:19 Dose: 10 ml Documented by: STROKE Vital Signs/Narrative: Vital Signs Temp Pulse Resp BP Pulse Ox Pulse Ox Pulse Ox 09/29/19 14:53 85 90 09/29/19 14:38 97.7 F L 72 18 114/70 92 09/29/19 13:18 72 18 Pulse Ox 09/29/19 14:53 92 09/29/19 14:38 09/29/19 13:18 Medical Necessity - Tobacco Use Smoking Status: Former smoker Assessment/Plan All Active Problems (Last Reviewed 09/26/19 @ 11:18 by Cora Guzman PA-C) Thrombocytopenia (Acute) Sepsis due to Salmonella species with acute hypoxic respiratory failure (Acute) Atrial fibrillation with RVR (Acute) Non-STEMI (non-ST elevated myocardial infarction) (Acute) Acute renal failure (Acute) Vomiting and diarrhea (Acute) Severe dehydration (Acute) Heme positive stool (Acute) Chronic hypoxemic respiratory failure (Resolved) Colitis (Resolved) GI (gastrointestinal bleed) (Resolved) History of DVT (deep vein thrombosis) (Resolved) Hypomagnesemia (Resolved) Hypothyroidism (Resolved) Iron deficiency anemia (Resolved) Severe aortic stenosis (Resolved) 1. Elevated troponin, NSTEMI - stress test negative. Cardiology following. Echo unremarkable. Follow up as outpatient. No aspirin with low platelets. Continue statin, metoprolol. no carlos/arb with MARILEE. 2. Acute sepsis 2/2 acute gastroenteritis 2/2 Salmonella - plan for transition to amoxicillin based on sensitivities at [place]. today no abd pain/nausea/vomiting. 3. Thrombocytopenia - Improved. Likely 2/2 sepsis. Heme/Onc following. Holding antiplatelets. Hgb stable during stay. 4. Metabolic acidosis suspect 2/2 gastroenteritis - resolved 5. MARILEE - 2/2 N/V/D - renal US neg. Improving with lasix. Check in AM. 6. Elevated D dimer - VQ scan is normal. Hx DVT/hypercoag state. No strain pattern on echo. Venous duplex LE negative. 7. Paroxysmal Afib with RVR suspect 2/2 sepsis- cardiology following - resolved. Continue current therapy. Plan is for low dose eliquis at ok. Will start here. CHADVASC 7. D/w Cardiology. No significant bleeding with Salmonella, and this is controlled. Pts risk of stroke outweighs risk of bleeding. Had bleeding with coumadin in the past. She has tolerated xarelto in the past. -T4 was elevated. Resumed methimazole. 8. Acute on chronic diastolic CHF, pulmonary HTN - echo as above. CXR with congestion/pleural effusions - on IV lasix. 9. DMt2 - continue lantus/SSI. orals held. 10. Hx hyperthyroidism - tsh somewhat low, however t4 elevated - resume methimazole. . 11. Depression - paxil 12. Hx lupus anticoagulant- follow up with Dr. Gutierrez in 2weeks. 13. Hx MTHFR - follows with Dr. Gutierrez. 14. COPD - No exacerbation. continue pulmicort, duoneb, albuterol. 15. Hx - s/p TAVR/porcine valve. DVT ppx: SCDs, start eliquis tonight. VT planning: Hypoxic with ambulation. Likely from CHF/deconditioning. Continue lasix, aerosols, physical therapy. She will likely need o2 with activity at ok. This patient was seen by David Paredes PA-C under the supervision of Doctor Mando <Lena Gilmore - Last Filed: 09/29/19 17:25> Vitals/I&O's: Vital Signs Temp Pulse Resp BP Pulse Ox 97.7 F L 69 18 114/70 91 09/29/19 14:38 09/29/19 15:00 09/29/19 14:38 09/29/19 14:38 09/29/19 15:51 Oxygen Flow Rate (L/min) [ 2 AMBULATION with Oxygen] Oxygen Flow Rate (L/min) [ 0 AMBULATING on Room Air] Oxygen Flow Rate (L/min) [At 0 REST on Room Air] Oxygen Flow Rate (L/min) 2 Oxygen Delivery Method Room Air Weight: 174 lb 6.17 oz Body Mass Index (BMI) 34.0 Finger Stick Blood Glucose 112 Intake and Output for Last 24 Hours 09/27/19 09/28/19 09/29/19 23:59 23:59 23:59 Intake Total 2021.46 / 2038.16 1267.48 / 1267.48 628.25 / 628.25 Output Total 2375 / 2375 1175 / 1175 Balance -353.54 / -336.84 92.48 / 92.48 628.25 / 628.25 Microbiology Past 72 Hours 09/27/19 14:55 Urine, Clean Catch Urine Culture - Preliminary Presumptive Salmonella Group 09/26/19 17:55 Stool Enteric Bacteriology - Final Salmonella Sp. 09/27/19 00:01 Mucosa - Nasopharyngeal Rapid RSV (DFA) - Final 09/27/19 00:01 Mucosa - Nasopharyngeal Influenza Types A,B Direct FA (SHANE) - Final Laboratory Results 09/28/19 21:45: POC Glucose 242 H 09/29/19 06:18: Miscellaneous Test Pending 09/29/19 06:18: WBC 21.4 H, RBC 4.21, Hgb 12.7, Hct 37.6, MCV 89.3, MCH 30.2, MCHC 33.8, RDW Std Deviation 53.0 H, RDW Coeff of Jeff 16.2 H, Plt Count 68 L, Immature Gran % (Auto) 2.800 H, Neut % (Auto) 86.8 H, Lymph % (Auto) 4.5 L, [place] % (Auto) 5.6, Eos % (Auto) 0.0, Baso % (Auto) 0.3, Absolute Neuts (auto) 18.6 H, Absolute Lymphs (auto) 0.97, Nucleated RBC % 0.1, Differential Comment SCANNED, Toxic Granulation 2+ 09/29/19 06:18: Sodium 137, Potassium 4.0, Chloride 107, Carbon Dioxide 24.0, Anion Gap 6, BUN 62 H, Creatinine 2.12 H, Estim Creat Clear Calc 16.98, Est GFR (MDRD) Af Amer 29 L, Est GFR (MDRD) Non-Af 24 L, BUN/Creatinine Ratio 29.2 H, Glucose 206 H, Calcium 7.7 L, Total Bilirubin 0.60, AST 273 H, ALT 686 H, Alkaline Phosphatase 70, Total Protein 5.0 L, Albumin 2.0 L, Globulin 3.0, Albumin/Globulin Ratio 0.7 L 09/29/19 06:37: POC Glucose 214 H 09/29/19 10:45: PT 15.1 H, INR 1.2 09/29/19 11:08: POC Glucose 151 H 09/29/19 15:58: POC Glucose 226 H Current Medications Albuterol Sulfate (Ventolin Aerosols) 2.5 mg INHALATION Q6H PRN PRN PRN Reason: SOB &/OR WHEEZING Albuterol/Ipratropium (Duoneb) 3 ml INHALATION Q6HWA.RT [facility] Last Admin: 09/29/19 13:17 Dose: 3 ml Documented by: Amiodarone HCl (Cordarone) 200 mg PO DAILY [facility] Last Admin: 09/29/19 08:18 Dose: 200 mg Documented by: Apixaban (Eliquis) 2.5 mg PO BID [facility] Atorvastatin Calcium (Lipitor) 80 mg PO QHS [facility] Last Admin: 09/28/19 21:50 Dose: 80 mg Documented by: Budesonide (Pulmicort Aerosol) 0.5 mg INHALATION Q12H.RT [facility] Last Admin: 09/29/19 07:28 Dose: 0.5 mg Documented by: Diltiazem HCl (Cardizem Cd) 240 mg PO DAILY [facility] Last Admin: 09/29/19 08:19 Dose: 240 mg Documented by: Fluticasone Propionate (Flonase Nasal [place]) 2 spray NASAL DAILY [facility] Last Admin: 09/29/19 08:21 Dose: 2 spray Documented by: Furosemide (Lasix) 40 mg IV DAILY [facility] Last Admin: 09/29/19 08:19 Dose: 40 mg Documented by: Glucagon () 1 mg IM .X1 PRN PRN Reason: Hypoglycemia Pantoprazole Sodium 40 mg/ (Sodium Chloride) 110 mls @ 330 mls/hr IV Q12 [facility] Last Infusion: 09/29/19 09:09 Dose: Infused Documented by: Sodium Chloride () 250 mls @ 15 mls/hr IV .[id number] PRN PRN Reason: Saline Flush Last Infusion: 09/29/19 14:55 Dose: Infused Documented by: Dextrose (Dextrose 10%-Water) 250 mls @ 999 mls/hr IV X1 PRN; Protocol PRN Reason: HYPOGLYCEMIA Ceftriaxone Sodium 2 gm/ (Sodium Chloride) 50 mls @ 100 mls/hr IV Q24 [facility] Stop: 10/03/19 10:29 Last Infusion: 09/29/19 10:35 Dose: Infused Documented by: Insulin Glargine (Lantus (Bk)) 10 units SC QHS [facility] Last Admin: 09/28/19 21:50 Dose: 10 units Documented by: Insulin Human Lispro (Humalog Kwikpen (Bk)) 0 unit SC ACHS [facility]; Protocol Last Admin: 09/29/19 15:59 Dose: 2 units Documented by: Methimazole (Tapazole) 5 mg PO DAILY [facility] Last Admin: 09/29/19 08:27 Dose: 5 mg Documented by: Metoprolol Succinate (Toprol Xl (Beta Isabel)) 25 mg PO BID [facility] Last Admin: 09/29/19 08:18 Dose: 25 mg Documented by: Nystatin (Mycostatin Powder) 1 applic TOPICAL BID [facility]; Protocol Last Admin: 09/29/19 08:21 Dose: 1 applicatio Documented by: Ondansetron HCl (Zofran) 4 mg IV Q8H PRN PRN PRN Reason: NAUSEA/VOMITING Last Admin: 09/26/19 09:10 Dose: 4 mg Documented by: Pramipexole Dihydrochloride (Mirapex) 1 mg PO QHS [facility] Last Admin: 09/28/19 21:50 Dose: 1 mg Documented by: Prochlorperazine Edisylate (Compazine Iv) 10 mg IV Q4H PRN PRN PRN Reason: nausea, vomiting Last Admin: 09/26/19 14:44 Dose: 10 mg Documented by: Sodium Chloride () 10 - 40 ml IV UD PRN PRN Reason: SALINE FLUSH Last Admin: 09/29/19 08:19 Dose: 10 ml Documented by: STROKE Vital Signs/Narrative: Vital Signs Temp Pulse Resp BP Pulse Ox Pulse Ox Pulse Ox 09/29/19 15:51 91 09/29/19 15:00 69 09/29/19 14:53 85 90 09/29/19 14:38 97.7 F L 72 18 114/70 92 09/29/19 13:18 72 18 Pulse Ox 09/29/19 15:51 09/29/19 15:00 09/29/19 14:53 92 09/29/19 14:38 09/29/19 13:18 Assessment/Plan Patient seen by David Paredes PA-C under my supervision Patient seen and examined. She had no complaints and felt well. Plan had been to discharge patient today. She was started on Eliquis after discussion with hematology and cardiology. Even though she was at risk of bleeding and was also thrombocytopenic, based on a high ChadVASC score of 7, decision was made to start her on low-dose anticoagulation with Eliquis and cardiology and hematology were both on board with this. However prior to discharge, patient saturation dropped to 85% per walking pulse ox. She had a VQ scan during this admission which was normal. She has not been anticoagulated since the first day of admission on account of thrombocytopenia. Platelets are only 68 today. She is to be started on Eliquis today for A. fib. Hypoxia likely be due to atelectasis as she was saturating well at rest.. PE is less likely a consideration, as she had a negative VQ scan and negative lower extremity DVT just yesterday. We are also constrained by risk of bleeding due to positive occult blood in stool. o/e: Vital Signs Height 5 ft Weight: 174 lb 6.17 oz Weight in Pounds 174.4 lbs Pulse Ox [AMBULATION with 90 Oxygen] Pulse Ox [AMBULATING on Room 85 Air] Pulse Ox [At REST on Room Air] 92 Pulse Ox 91 Temperature 97.7 F Pulse Rate 69 Respiratory Rate 18 Blood Pressure [BP] 106/59 Blood Pressure 114/70 Blood Pressure Position [BP] Semi-Fowlers Blood Pressure Position Semi-Fowlers General: Alert, Oriented x3, Cooperative HEENT: Atraumatic, PERRLA, EOMI, Normocephalic Neck: Supple, No JVD, Negative Carotid Bruits Lungs: Clear to auscultation, Normal air movement Cardiovascular: Regular rate, No murmurs Abdomen: Bowel Sounds Present, Soft, Non Tender, Obese Extremities: No edema, Capillary Refill Less than 3 Seconds Skin: No rashes, No breakdown Musculoskeletal: No Tenderness to Palpation of Joints or Extremities Neurological: Cranial nerves II-XII grossly intact Psych/Mental Status: Normal Affect, Appropriate, Alert and oriented to time, place, person, mood and affect Plan is continue breathing treatments. Chest physiotherapy. Start low-dose Eliquis. Check walking pulse ox before discharge to determine need for oxygen again. Will switch to PO protonix. Discussed with Dr. barnes in general surgery. In her review, if patient needs full anticoagulation, she is okay with patient receiving this as patient's hemoglobin did not really drop and she thinks that the positive occult blood may have been due to gastritis or the diarrhea. We will keep patient on low-dose Eliquis for now and give breathing treatments and chest physiotherapy. Rest as per David Paredes PA-C's note, which I have reviewed and endorsed. Code Visit Inpatient E&M: 08481 Subs Hosp L2
[2019-09-29 16:06] LABS: Bedside Glucose 226 mg/dL (70-110)
--- NOTE | 2019-09-29 18:45 | PN_ITS ---
Patient Problems: Active and Suspected Problems (Last Reviewed 09/26/19 @ 11:18 by Cora Guzman PA-C) Thrombocytopenia (Acute) Secondary to sepsis versus heparin-induced thrombocytopenia Sepsis due to Salmonella species with acute hypoxic respiratory failure (Acute) Atrial fibrillation with RVR (Acute) Non-STEMI (non-ST elevated myocardial infarction) (Acute) Acute renal failure (Acute) Vomiting and diarrhea (Acute) Severe dehydration (Acute) Heme positive stool (Acute) Subjective: no sob no cp no c/o - Physical Exam Vitals/I&O's: Vital Signs Temp Pulse Resp BP Pulse Ox 97.7 F L 69 18 114/70 91 09/29/19 14:38 09/29/19 15:00 09/29/19 14:38 09/29/19 14:38 09/29/19 15:51 Oxygen Flow Rate (L/min) [ 2 AMBULATION with Oxygen] Oxygen Flow Rate (L/min) [ 0 AMBULATING on Room Air] Oxygen Flow Rate (L/min) [At 0 REST on Room Air] Oxygen Flow Rate (L/min) 2 Oxygen Delivery Method Room Air Weight: 79.1 kg Body Mass Index (BMI) 34.0 Finger Stick Blood Glucose 112 Intake and Output for Last 24 Hours 09/27/19 09/28/19 09/29/19 23:59 23:59 23:59 Intake Total 2021.46 / 2038.16 1267.48 / 1267.48 928.25 / 928.25 Output Total 2375 / 2375 1175 / 1175 550 / 550 Balance -353.54 / -336.84 92.48 / 92.48 378.25 / 378.25 General: Alert, Oriented x3, Cooperative HEENT: Atraumatic, PERRLA, EOMI, Normocephalic Neck: Supple, No JVD, Negative Carotid Bruits Lungs: Clear to auscultation, Normal air movement Cardiovascular: Regular rate, No murmurs Abdomen: Bowel Sounds Present, Soft, Non Tender, Obese Extremities: No edema, Capillary Refill Less than 3 Seconds Skin: No rashes, No breakdown Musculoskeletal: No Tenderness to Palpation of Joints or Extremities Neurological: Cranial nerves II-XII grossly intact Psych/Mental Status: Normal Affect, Appropriate Microbiology Past 72 Hours 09/27/19 14:55 Urine, Clean Catch Urine Culture - Preliminary Presumptive Salmonella Group 09/26/19 17:55 Stool Enteric Bacteriology - Final Salmonella Sp. 09/27/19 00:01 Mucosa - Nasopharyngeal Rapid RSV (DFA) - Final 09/27/19 00:01 Mucosa - Nasopharyngeal Influenza Types A,B Direct FA (SHANE) - Final Laboratory Results 09/28/19 21:45: POC Glucose 242 H 09/29/19 06:18: Miscellaneous Test Pending 09/29/19 06:18: WBC 21.4 H, RBC 4.21, Hgb 12.7, Hct 37.6, MCV 89.3, MCH 30.2, MCHC 33.8, RDW Std Deviation 53.0 H, RDW Coeff of Jeff 16.2 H, Plt Count 68 L, Immature Gran % (Auto) 2.800 H, Neut % (Auto) 86.8 H, Lymph % (Auto) 4.5 L, Lamar % (Auto) 5.6, Eos % (Auto) 0.0, Baso % (Auto) 0.3, Absolute Neuts (auto) 18.6 H, Absolute Lymphs (auto) 0.97, Nucleated RBC % 0.1, Differential Comment SCANNED, Toxic Granulation 2+ 09/29/19 06:18: Sodium 137, Potassium 4.0, Chloride 107, Carbon Dioxide 24.0, Anion Gap 6, BUN 62 H, Creatinine 2.12 H, Estim Creat Clear Calc 16.98, Est GFR (MDRD) Af Amer 29 L, Est GFR (MDRD) Non-Af 24 L, BUN/Creatinine Ratio 29.2 H, Glucose 206 H, Calcium 7.7 L, Total Bilirubin 0.60, AST 273 H, ALT 686 H, Alkaline Phosphatase 70, Total Protein 5.0 L, Albumin 2.0 L, Globulin 3.0, Albumin/Globulin Ratio 0.7 L 09/29/19 06:37: POC Glucose 214 H 09/29/19 10:45: PT 15.1 H, INR 1.2 09/29/19 11:08: POC Glucose 151 H 09/29/19 15:58: POC Glucose 226 H Current Medications Albuterol Sulfate (Ventolin Aerosols) 2.5 mg INHALATION Q6H PRN PRN PRN Reason: SOB &/OR WHEEZING Albuterol/Ipratropium (Duoneb) 3 ml INHALATION Q6HWA.RT [facility] Last Admin: 09/29/19 13:17 Dose: 3 ml Documented by: Amiodarone HCl (Cordarone) 200 mg PO DAILY [facility] Last Admin: 09/29/19 08:18 Dose: 200 mg Documented by: Apixaban (Eliquis) 2.5 mg PO BID DIAMOND Atorvastatin Calcium (Lipitor) 80 mg PO QHS [facility] Last Admin: 09/28/19 21:50 Dose: 80 mg Documented by: Budesonide (Pulmicort Aerosol) 0.5 mg INHALATION Q12H.RT [facility] Last Admin: 09/29/19 07:28 Dose: 0.5 mg Documented by: Diltiazem HCl (Cardizem Cd) 240 mg PO DAILY [facility] Last Admin: 09/29/19 08:19 Dose: 240 mg Documented by: Fluticasone Propionate (Flonase Nasal [place]) 2 spray NASAL DAILY [facility] Last Admin: 09/29/19 08:21 Dose: 2 spray Documented by: Furosemide (Lasix) 40 mg IV DAILY [facility] Last Admin: 09/29/19 08:19 Dose: 40 mg Documented by: Glucagon () 1 mg IM .X1 PRN PRN Reason: Hypoglycemia Pantoprazole Sodium 40 mg/ (Sodium Chloride) 110 mls @ 330 mls/hr IV Q12 [facility] Last Infusion: 09/29/19 09:09 Dose: Infused Documented by: Sodium Chloride () 250 mls @ 15 mls/hr IV .[id number] PRN PRN Reason: Saline Flush Last Infusion: 09/29/19 14:55 Dose: Infused Documented by: Dextrose (Dextrose 10%-Water) 250 mls @ 999 mls/hr IV X1 PRN; Protocol PRN Reason: HYPOGLYCEMIA Ceftriaxone Sodium 2 gm/ (Sodium Chloride) 50 mls @ 100 mls/hr IV Q24 [facility] Stop: 10/03/19 10:29 Last Infusion: 09/29/19 10:35 Dose: Infused Documented by: Insulin Glargine (Lantus (Bkc)) 10 units SC QHS [facility] Last Admin: 09/28/19 21:50 Dose: 10 units Documented by: Insulin Human Lispro (Humalog Kwikpen (Bkc)) 0 unit SC ACHS [facility]; Protocol Last Admin: 09/29/19 15:59 Dose: 2 units Documented by: Methimazole (Tapazole) 5 mg PO DAILY [facility] Last Admin: 09/29/19 08:27 Dose: 5 mg Documented by: Metoprolol Succinate (Toprol Xl (Beta Isabel)) 25 mg PO BID [facility] Last Admin: 09/29/19 08:18 Dose: 25 mg Documented by: Nystatin (Mycostatin Powder) 1 applic TOPICAL BID [facility]; Protocol Last Admin: 09/29/19 08:21 Dose: 1 applicatio Documented by: Ondansetron HCl (Zofran) 4 mg IV Q8H PRN PRN PRN Reason: NAUSEA/VOMITING Last Admin: 09/26/19 09:10 Dose: 4 mg Documented by: Pramipexole Dihydrochloride (Mirapex) 1 mg PO QHS [facility] Last Admin: 09/28/19 21:50 Dose: 1 mg Documented by: Prochlorperazine Edisylate (Compazine Iv) 10 mg IV Q4H PRN PRN PRN Reason: nausea, vomiting Last Admin: 09/26/19 14:44 Dose: 10 mg Documented by: Sodium Chloride () 10 - 40 ml IV UD PRN PRN Reason: SALINE FLUSH Last Admin: 09/29/19 08:19 Dose: 10 ml Documented by: Medical Necessity - Tobacco Use Smoking Status: Former smoker Assessment/Plan All Active Problems (Last Reviewed 09/26/19 @ 11:18 by Cora Guzman PA-C) Thrombocytopenia (Acute) Sepsis due to Salmonella species with acute hypoxic respiratory failure (Acute) Atrial fibrillation with RVR (Acute) Non-STEMI (non-ST elevated myocardial infarction) (Acute) Acute renal failure (Acute) Vomiting and diarrhea (Acute) Severe dehydration (Acute) Heme positive stool (Acute) Chronic hypoxemic respiratory failure (Resolved) Colitis (Resolved) GI (gastrointestinal bleed) (Resolved) History of DVT (deep vein thrombosis) (Resolved) Hypomagnesemia (Resolved) Hypothyroidism (Resolved) Iron deficiency anemia (Resolved) Severe aortic stenosis (Resolved) MARILEE prerenal/ATN with fluid depletion hypotension diuresis Renal cyst CKD 3 baseline 1.2-1.3 Pulmonary edema Atrial fibrillation with RVR NSTEMI Diarrhea positive for Salmonella GI bleed Thrombocytopenia Serum creatinine 2.1 improving Okay to continue Lasix once daily for now. Rec to switch to 40 mg po daily when ok with cards Follow-up urine culture Blood pressure currently acceptable. Avoid hypotension nephrotoxins.
[2019-09-29] MEDS: Pramipexole Di-HCl 1 MG Tablet PO (20:45)
[2019-09-29] MEDS: APIXABAN 2.5 MG TABLET PO (20:46)
[2019-09-29] MEDS: Atorvastatin Calcium 80 MG Tablet PO (20:46)
[2019-09-29 21:06] LABS: Bedside Glucose 246 mg/dL (70-110)
[2019-09-30] VITALS (18 sets, daily range): BP systolic 117–163; BP diastolic 60–78; PULSE 60–99; RESP 16–20; TEMP 36.1–36.8; O2SAT 85–98
[2019-09-30] MEDS: Ipratropium/Albuterol Sulfate 3 ML AMPUL.NEB INHALATION ×4 (00:38→19:13)
[2019-09-30] MEDS: 0.9% Saline Lock 10 ML Syringe IV (04:49)
[2019-09-30 05:23] LABS: Mean Corp Hgb Conc 33.3 g/dL (32-36); Mean Corpuscular Volume 90.1 fL (81-99); Mean Platelet Vol. 13.7 fl (6.2-12.0); POSITIVE COUNT YES; Platelet Count 80 K/mm3 (150-450); RBC Distribution Width CV 15.9 % (11.6-14.6); RBC Distribution Width SD 52.6 fl (35.1-43.9); Red Blood Count 4.33 M/mm3 (4.2-5.4); White Blood Count 15.5 K/mm3 (4.4-11.0)
[2019-09-30 05:42] LABS: Anion Gap 5 (5-15); BUN 51 mg/dL (7-18); BUN/Creat Ratio 30.7 RATIO (10-20); Calcium,Total 7.5 mg/dL (8.5-10.1); Chloride 107 mmol/L (98-107); Creatinine, Serum 1.66 mg/dL (0.55-1.02); EST Glomerular Filtration Rate 32 mL/min (>60); Est Glom Filt Rate - Afr Amer 39 mL/min (>60); Estimated Creatinine Clearance 21.68 ml/min; Glucose 181 mg/dL (74-106); Potassium 3.8 mmol/L (3.5-5.1); Sodium Level 138 mmol/L (136-145)
[2019-09-30] MEDS: Insulin Lispro 100 UNIT/ML INSULN.PEN SC ×4 (06:23→21:50)
[2019-09-30 06:35] LABS: Bedside Glucose 181 mg/dL (70-110)
[2019-09-30 07:08] LABS: Scan Indicated on CBC? Y/N NO
[2019-09-30] MEDS: Budesonide Respules 0.5 MG/2 ML AMPUL.NEB. INHALATION ×2 (07:23→19:13)
--- NOTE | 2019-09-30 08:43 | PCM.PN.SRG ---
Patient Problems: Active and Suspected Problems (Last Reviewed 09/26/19 @ 11:18 by Cora Guzman PA-C) Thrombocytopenia (Acute) Secondary to sepsis versus heparin-induced thrombocytopenia Sepsis due to Salmonella species with acute hypoxic respiratory failure (Acute) Atrial fibrillation with RVR (Acute) Non-STEMI (non-ST elevated myocardial infarction) (Acute) Acute renal failure (Acute) Vomiting and diarrhea (Acute) Severe dehydration (Acute) Heme positive stool (Acute) Subjective: Patient denies any abdominal pain, is having bowel function to still softer but normal in color - Physical Exam Vitals/I&O's: Vital Signs Temp Pulse Resp BP Pulse Ox 97.8 F 70 18 118/60 94 09/30/19 06:21 09/30/19 07:24 09/30/19 07:24 09/30/19 06:21 09/30/19 07:24 Oxygen Flow Rate (L/min) [ 2 AMBULATION with Oxygen] Oxygen Flow Rate (L/min) [ 0 AMBULATING on Room Air] Oxygen Flow Rate (L/min) [At 0 REST on Room Air] Oxygen Flow Rate (L/min) 2 Oxygen Delivery Method Nasal Cannula Weight: 174 lb 6.17 oz Body Mass Index (BMI) 34.0 Finger Stick Blood Glucose 112 Intake and Output for Last 24 Hours 09/28/19 09/29/19 09/30/19 23:59 23:59 23:59 Intake Total 1267.48 / 1267.48 1258.25 / 1258.25 56.25 / 56.25 Output Total 1175 / 1175 950 / 950 Balance 92.48 / 92.48 308.25 / 308.25 56.25 / 56.25 General: Alert, Oriented x3, Cooperative, No apparent distress Lungs: Normal air movement Cardiovascular: Regular rate Abdomen: Soft, Non Tender, Non-Distended Extremities: No edema Microbiology Past 72 Hours 09/27/19 14:55 Urine, Clean Catch Urine Culture - Preliminary Presumptive Salmonella Group 09/26/19 17:55 Stool Enteric Bacteriology - Final Salmonella Sp. Laboratory Results 09/29/19 10:45: PT 15.1 H, INR 1.2 09/29/19 11:08: POC Glucose 151 H 09/29/19 15:58: POC Glucose 226 H 09/29/19 20:43: POC Glucose 246 H 09/30/19 04:49: WBC 15.5 H, RBC 4.33, Hgb 13.0, Hct 39.0, MCV 90.1, MCH 30.0, MCHC 33.3, RDW Std Deviation 52.6 H, RDW Coeff of Jeff 15.9 H, Plt Count 80 L, MPV 13.7 H 09/30/19 04:49: Sodium 138, Potassium 3.8, Chloride 107, Carbon Dioxide 26.0, Anion Gap 5, BUN 51 H, Creatinine 1.66 H, Estim Creat Clear Calc 21.68, Est GFR (MDRD) Af Amer 39 L, Est GFR (MDRD) Non-Af 32 L, BUN/Creatinine Ratio 30.7 H, Glucose 181 H, Calcium 7.5 L 09/30/19 06:20: POC Glucose 181 H Current Medications Albuterol Sulfate (Ventolin Aerosols) 2.5 mg INHALATION Q6H PRN PRN PRN Reason: SOB &/OR WHEEZING Albuterol/Ipratropium (Duoneb) 3 ml INHALATION Q6HWA.RT [facility] Last Admin: 09/30/19 07:23 Dose: 3 ml Documented by: Amiodarone HCl (Cordarone) 200 mg PO DAILY [facility] Last Admin: 09/29/19 08:18 Dose: 200 mg Documented by: Apixaban (Eliquis) 2.5 mg PO BID [facility] Last Admin: 09/29/19 20:46 Dose: 2.5 mg Documented by: Atorvastatin Calcium (Lipitor) 80 mg PO QHS [facility] Last Admin: 09/29/19 20:46 Dose: 80 mg Documented by: Budesonide (Pulmicort Aerosol) 0.5 mg INHALATION Q12H.RT [facility] Last Admin: 09/30/19 07:23 Dose: 0.5 mg Documented by: Diltiazem HCl (Cardizem Cd) 240 mg PO DAILY [facility] Last Admin: 09/29/19 08:19 Dose: 240 mg Documented by: Fluticasone Propionate (Flonase Nasal [place]) 2 spray NASAL DAILY [facility] Last Admin: 09/29/19 08:21 Dose: 2 spray Documented by: Furosemide (Lasix) 40 mg IV DAILY [facility] Last Admin: 09/29/19 08:19 Dose: 40 mg Documented by: Glucagon () 1 mg IM .X1 PRN PRN Reason: Hypoglycemia Sodium Chloride () 250 mls @ 15 mls/hr IV .[id number] PRN PRN Reason: Saline Flush Last Infusion: 09/30/19 00:30 Dose: 0 mls/hr Documented by: Dextrose (Dextrose 10%-Water) 250 mls @ 999 mls/hr IV X1 PRN; Protocol PRN Reason: HYPOGLYCEMIA Ceftriaxone Sodium 2 gm/ (Sodium Chloride) 50 mls @ 100 mls/hr IV Q24 [facility] Stop: 10/03/19 10:29 Last Infusion: 09/29/19 10:35 Dose: Infused Documented by: Insulin Glargine (Lantus ([facility])) 10 units SC QHS DI[facility] Last Admin: 09/29/19 20:46 Dose: 10 units Documented by: Insulin Human Lispro (Humalog Kwikpen ([facility])) 0 unit SC ACHS DIAMOND; Protocol Last Admin: 09/30/19 06:23 Dose: 1 units Documented by: Methimazole (Tapazole) 5 mg PO DAILY [facility] Last Admin: 09/29/19 08:27 Dose: 5 mg Documented by: Metoprolol Succinate (Toprol Xl (Beta Isabel)) 25 mg PO BID [facility] Last Admin: 09/29/19 20:45 Dose: 25 mg Documented by: Nystatin (Mycostatin Powder) 1 applic TOPICAL BID [facility]; Protocol Last Admin: 09/29/19 20:45 Dose: 1 applicatio Documented by: Ondansetron HCl (Zofran) 4 mg IV Q8H PRN PRN PRN Reason: NAUSEA/VOMITING Last Admin: 09/26/19 09:10 Dose: 4 mg Documented by: Pantoprazole Sodium (Protonix) 40 mg PO BID [facility] Pramipexole Dihydrochloride (Mirapex) 1 mg PO QHS [facility] Last Admin: 09/29/19 20:45 Dose: 1 mg Documented by: Prochlorperazine Edisylate (Compazine Iv) 10 mg IV Q4H PRN PRN PRN Reason: nausea, vomiting Last Admin: 09/26/19 14:44 Dose: 10 mg Documented by: Sodium Chloride () 10 - 40 ml IV UD PRN PRN Reason: SALINE FLUSH Last Admin: 09/30/19 04:49 Dose: 30 ml Documented by: Medical Necessity - Tobacco Use Smoking Status: Former smoker Assessment/Plan All Active Problems (Last Reviewed 09/26/19 @ 11:18 by Cora Guzman PA-C) Thrombocytopenia (Acute) Sepsis due to Salmonella species with acute hypoxic respiratory failure (Acute) Atrial fibrillation with RVR (Acute) Non-STEMI (non-ST elevated myocardial infarction) (Acute) Acute renal failure (Acute) Vomiting and diarrhea (Acute) Severe dehydration (Acute) Heme positive stool (Acute) Chronic hypoxemic respiratory failure (Resolved) Colitis (Resolved) GI (gastrointestinal bleed) (Resolved) History of DVT (deep vein thrombosis) (Resolved) Hypomagnesemia (Resolved) Hypothyroidism (Resolved) Iron deficiency anemia (Resolved) Severe aortic stenosis (Resolved) 74-year-old female with NSTEMI, A. fib with RVR, fecal occult positive stool right-sided abdominal pain?resolved no abdominal pain and normal colored stools currently, positive d-dimer, positive for Salmonella in her stool, UTI presumed Salmonella, elevated AST/ALT?improving 1. Patient can follow-up with her GI doctor Dr. Nixon. Patient hemoglobin has remained stable here. Patient states her bowel movements are normal color. Would recommend continuing Protonix twice daily at least for 1 month then okay to change to daily. 2. Platelets at 80 possibly due to heparin, hematology consulted --no plans for any surgical intervention Tessie Tesfaye M.D. Pager: [phone] [facility] [address] [place] [address], [facility], [address] [place] [address] Office: [phone] Code Visit Inpatient E&M: 40169 Subs Hosp L1
[2019-09-30] MEDS: dilTIAZem CD 240 MG Capsule PO (10:12)
[2019-09-30] MEDS: Methimazole 5 MG Tablet PO (10:12)
[2019-09-30] MEDS: Metoprolol(XL)Succ 25 MG Tablet PO ×2 (10:12→21:50)
[2019-09-30] MEDS: Pantoprazole Sodium 40 MG Tablet PO ×2 (10:13→21:50)
[2019-09-30] MEDS: Amiodarone 200 MG Tablet PO (10:13)
[2019-09-30] MEDS: Furosemide 40 MG/4 ML Vial IV (10:13)
[2019-09-30] MEDS: APIXABAN 2.5 MG TABLET PO ×2 (10:13→21:50)
[2019-09-30] MEDS: Nystatin Powder 15gm Bottle 1 APPLIC TOPICAL ×2 (10:14→21:50)
[2019-09-30] MEDS: Fluticasone 0.05% 1 SPRAY NASAL.SRY 2 SPRAY NASAL (10:14)
--- NOTE | 2019-09-30 10:50 | PN.CARD_ITS ---
Subjectve: Patient seen and examined this morning, and appears to be doing much better. Her hemoglobin is stable, her platelets have increased to 80, and her creatinine is decreased to 1.6. The patient feels much better and is eating without much difficulty. Telemetry shows normal sinus rhythm with occasional PAC and PVCs. No recurrent atrial fibrillation noted. Attempts were made yesterday to ambulate the patient but she became fairly short of breath. Physical therapy called to evaluate for possible SNF. Objective: Vital Signs Temp Pulse Resp BP Pulse Ox 97.8 F 76 18 163/78 H 94 09/30/19 06:21 09/30/19 10:12 09/30/19 07:24 09/30/19 10:12 09/30/19 07:24 Oxygen Flow Rate (L/min) [ 2 AMBULATION with Oxygen] Oxygen Flow Rate (L/min) [ 0 AMBULATING on Room Air] Oxygen Flow Rate (L/min) [At 0 REST on Room Air] Oxygen Flow Rate (L/min) 2 Oxygen Delivery Method Nasal Cannula Weight: 174 lb 6.17 oz Body Mass Index (BMI) 34.0 Finger Stick Blood Glucose 112 Intake and Output for Last 24 Hours 09/28/19 09/29/19 09/30/19 23:59 23:59 23:59 Intake Total 1267.48 / 1267.48 1258.25 / 1258.25 56.25 / 56.25 Output Total 1175 / 1175 950 / 950 Balance 92.48 / 92.48 308.25 / 308.25 56.25 / 56.25 General: Awake, Alert, Oriented x 3 HEENT: PERRL, EOMI, Sclera Non Icteric Neck: Supple, Good ROM, No Lymph Node Enlargement Lungs: Clear to auscultation Cardiovascular: Regular Rhythm, Normal S1, Normal S2, No Murmurs, No Rubs, No Gallops Vascular: No Carotid Bruits, Normal Femoral Pulses, Normal Radial Pulses, Normal Dorsalis Pedal Pulse, Normal Posterior Tibial Pulses Abdomen: Bowel Sounds Present, Soft, Non Tender, No HSM, No Organomegaly Extremities: No Cyanosis, No Clubbing, No edema Neurological: No Focal Motor or Sensory Deficit 09/29/19 10:45: PT 15.1 H, INR 1.2 09/30/19 04:49: WBC 15.5 H, RBC 4.33, Hgb 13.0, Hct 39.0, MCV 90.1, MCH 30.0, MCHC 33.3, Plt Count 80 L, MPV 13.7 H 09/30/19 04:49: Sodium 138, Potassium 3.8, Chloride 107, Carbon Dioxide 26.0, A nion Gap 5, BUN 51 H, Creatinine 1.66 H, Est GFR (MDRD) Af Amer 39 L, Est GFR (MDRD) Non-Af 32 L, BUN/Creatinine Ratio 30.7 H, Glucose 181 H, Calcium 7.5 L Rhythm: EKG: Normal sinus rhythm with baseline right bundle branch block, QT corrected of 513 ms. ECHO: Stress Test: Cardiac Cath: PCI: CT Surgery: Holter monitor: EPS: PPM: CXR: Chest CT Scan: Medical Necessity - Tobacco Use Smoking Status: Former smoker Assessment/Plan 1. Atrial fibrillation: The patient presents with several days of nausea, vomiting, diarrhea, dehydration, acute on chronic renal insufficiency, rapid atrial fibrillation refractory to IV Cardizem and IV beta-gunjan, eventually corrected with IV amiodarone drip. In addition she had substernal chest pain and pressure and had a non-ST elevation myocardial infarction most likely due to demand ischemia from her known nonobstructive coronary disease and her rapid atrial fibrillation. Superimposed on this is a history of possible coffee-ground emesis, and black tarry stools although she is on iron therapy. Patient's heart rhythm has maintained normal sinus rhythm with rare PACs with IV amiodarone drip. We will transition IV amiodarone to p.o. amiodarone 200 mg p.o. daily going forward. Recommend keeping the patient on amiodarone 200 mg p.o. daily for the rest of her life in order to maintain normal sinus rhythm. The patient will most likely require long-term anticoagulation therapy given her history of DVT, sedentary lifestyle, and paroxysmal atrial fibrillation. In addition she will be started back on her Cardizem CD to 240 mg daily, and her we have increased her Toprol-XL 25 mg back to twice a day. Patient was started on Eliquis therapy now that her platelets are recovering, given her paroxysmal atrial fibrillation, possible lupus anticoagulant, history of DVT, and sedentary type lifestyle. Her most recent lower extremity Dopplers were negative for DVTs. 2. Non-STEMI: The patient had an abnormal troponin, and substernal chest pain when she was undergoing rapid atrial fibrillation. Given the patient's upper GI bleeding issues and anemia, she may not be a good candidate for intervention until this is well-healed. An echocardiogram was obtained this admission showed essentially intact LV function with an EF of 65%, and an RVSP of 29 mmHg which is an improvement from her previous echocardiogram at which time her PA pressures were in the mid 50s. In addition her TAVR appears to be operating normally. Given the patient's acute on chronic renal insufficiency, possible recent GI bleeding, we pursued a non-walking nuclear stress test on 09/27/2019 which was negative for inducible ischemia. Would not recommend diagnostic catheterization at this time particularly in light of her hematologic issues. Her stress test was negative for overt ischemia, and Eliquis 2.5 mg p.o. twice daily therapy was initiated. 3. Hyperlipidemia: Her LDL was 32 and HDL was 8. Continue Lipitor therapy. 4. TAVR: The patient's echocardiogram shows normal functioning and stable TAVR, no vegetations noted. 5. Thrombocytopenia: I recommended the patient be made allergic to heparin and heparin products, Lovenox, and all heparin flushes be discontinued. A HIT profile has been sent with results pending. Should the patient require antico agulation she will need bivalirudin until this is evaluated more thoroughly. According to hematology it is felt the patient most likely has lupus anticoagulant to explain her coagulopathy at this time. We await her platelet results today. 6. Anemia: Patient has been labeled as having GI bleeding however her hemoglobin has remained relatively stable. It appears that she is contracted Salmonella which will need to be investigated most likely with the health department if possible to trace back at source. This may also be contributing to her coagulopathy as well. 7. Deconditioning: The patient has been in bed for the better part of a week, and had difficulty with shortness of breath eating out of bed yesterday. Recommend physical therapy reevaluate for possible SNF facility or skilled nursing temporarily. 8. Discussed with David Paredes. Thank you very much for the opportunity to participate in the cardiac care of your patient. She will follow-up with . we will forward going forward. Patient may be discharged to SNF or home depending upon the recommendations of physical therapy. Code Visit Inpatient E&M: 23087 Subs Hosp L2
[2019-09-30 11:36] LABS: Heparin-Induced Plt Ab 0.152 OD (0.000-0.400)
--- NOTE | 2019-09-30 12:14 | NURSING ---
Pt refuses to sit in the chair at this time, she states that she does not want to, and prefers to sit up in the bed. she has been up ambulating in the room and to the bathroom several times today, using a standard walker, without difficulty, just some mild dyspnea with exertion.
--- NOTE | 2019-09-30 12:29 | PN_ITS ---
<David Paredes - Last Filed: 09/30/19 12:29> Patient Problems: Active and Suspected Problems (Last Reviewed 09/26/19 @ 11:18 by Cora Guzman PA-C) Thrombocytopenia (Acute) Secondary to sepsis versus heparin-induced thrombocytopenia Sepsis due to Salmonella species with acute hypoxic respiratory failure (Acute) Atrial fibrillation with RVR (Acute) Non-STEMI (non-ST elevated myocardial infarction) (Acute) Acute renal failure (Acute) Vomiting and diarrhea (Acute) Severe dehydration (Acute) Heme positive stool (Acute) Reason for Visit: hypoxia Subjective: Pt resting comfortably at bedside, upright, eating, NAD. no nausea/vomiting/diarrhea. No SOB today. Was hypoxic yesterday with ambulation. Despite this she denies SOB. She was however SOB with PT today, ambulated 60 feet with walker. [facility] Vitals/I&O's: Vital Signs Temp Pulse Resp BP Pulse Ox 98.2 F 76 20 H 163/78 H 95 09/30/19 10:10 09/30/19 10:12 09/30/19 10:10 09/30/19 10:12 09/30/19 12:00 Oxygen Flow Rate (L/min) [ 2 AMBULATION with Oxygen] Oxygen Flow Rate (L/min) [ 0 AMBULATING on Room Air] Oxygen Flow Rate (L/min) [At 0 REST on Room Air] Oxygen Flow Rate (L/min) 2 Oxygen Delivery Method Room Air Weight: 174 lb 6.17 oz Body Mass Index (BMI) 34.0 Finger Stick Blood Glucose 112 Intake and Output for Last 24 Hours 09/28/19 09/29/19 09/30/19 23:59 23:59 23:59 Intake Total 1267.48 / 1267.48 1258.25 / 1258.25 886.25 / 886.25 Output Total 1175 / 1175 950 / 950 Balance 92.48 / 92.48 308.25 / 308.25 886.25 / 886.25 General: Alert, Oriented x3, Cooperative HEENT: Atraumatic, PERRLA, EOMI, Normocephalic Neck: Supple, No JVD, Negative Carotid Bruits Lungs: Clear to auscultation, Normal air movement Cardiovascular: Regular rate, No murmurs Abdomen: Bowel Sounds Present, Soft, Non Tender Extremities: No edema, Capillary Refill Less than 3 Seconds Skin: No rashes, No breakdown Musculoskeletal: No Tenderness to Palpation of Joints or Extremities Neurological: Cranial nerves II-XII grossly intact Psych/Mental Status: Normal Affect, Appropriate, Alert and oriented to time, place, person, mood and affect Microbiology Past 72 Hours 09/27/19 14:55 Urine, Clean Catch Urine Culture - Preliminary Presumptive Salmonella Group 09/26/19 17:55 Stool Enteric Bacteriology - Final Salmonella Sp. Laboratory Results 09/27/19 06:05: Heparin-induced Plt Ab 0.152 09/29/19 15:58: POC Glucose 226 H 09/29/19 20:43: POC Glucose 246 H 09/30/19 04:49: WBC 15.5 H, RBC 4.33, Hgb 13.0, Hct 39.0, MCV 90.1, MCH 30.0, MCHC 33.3, RDW Std Deviation 52.6 H, RDW Coeff of Jeff 15.9 H, Plt Count 80 L, MPV 13.7 H 09/30/19 04:49: Sodium 138, Potassium 3.8, Chloride 107, Carbon Dioxide 26.0, Anion Gap 5, BUN 51 H, Creatinine 1.66 H, Estim Creat Clear Calc 21.68, Est GFR (MDRD) Af Amer 39 L, Est GFR (MDRD) Non-Af 32 L, BUN/Creatinine Ratio 30.7 H, Glucose 181 H, Calcium 7.5 L 09/30/19 06:20: POC Glucose 181 H Current Medications Albuterol Sulfate (Ventolin Aerosols) 2.5 mg INHALATION Q6H PRN PRN PRN Reason: SOB &/OR WHEEZING Albuterol/Ipratropium (Duoneb) 3 ml INHALATION Q6HWA.RT [facility] Last Admin: 09/30/19 07:23 Dose: 3 ml Documented by: Amiodarone HCl (Cordarone) 200 mg PO DAILY [facility] Last Admin: 09/30/19 10:13 Dose: 200 mg Documented by: Apixaban (Eliquis) 2.5 mg PO BID [facility] Last Admin: 09/30/19 10:13 Dose: 2.5 mg Documented by: Atorvastatin Calcium (Lipitor) 80 mg PO QHS [facility] Last Admin: 09/29/19 20:46 Dose: 80 mg Documented by: Budesonide (Pulmicort Aerosol) 0.5 mg INHALATION Q12H.RT [facility] Last Admin: 09/30/19 07:23 Dose: 0.5 mg Documented by: Diltiazem HCl (Cardizem Cd) 240 mg PO DAILY [facility] Last Admin: 09/30/19 10:12 Dose: 240 mg Documented by: Fluticasone Propionate (Flonase Nasal [place]) 2 spray NASAL DAILY [facility] Last Admin: 09/30/19 10:14 Dose: 2 spray Documented by: Furosemide (Lasix) 40 mg IV DAILY [facility] Last Admin: 09/30/19 10:13 Dose: 40 mg Documented by: Glucagon () 1 mg IM .X1 PRN PRN Reason: Hypoglycemia Sodium Chloride () 250 mls @ 15 mls/hr IV .[id number] PRN PRN Reason: Saline Flush Last Infusion: 09/30/19 00:30 Dose: 0 mls/hr Documented by: Dextrose (Dextrose 10%-Water) 250 mls @ 999 mls/hr IV X1 PRN; Protocol PRN Reason: HYPOGLYCEMIA Ceftriaxone Sodium 2 gm/ (Sodium Chloride) 50 mls @ 100 mls/hr IV Q24 [facility] Stop: 10/03/19 10:29 Last Infusion: 09/30/19 10:39 Dose: Infused Documented by: Insulin Glargine (Lantus (Bk)) 10 units SC QHS [facility] Last Admin: 09/29/19 20:46 Dose: 10 units Documented by: Insulin Human Lispro (Humalog Kwikpen (Bk)) 0 unit SC ACHS [facility]; Protocol Last Admin: 09/30/19 11:54 Dose: 2 units Documented by: Methimazole (Tapazole) 5 mg PO DAILY [facility] Last Admin: 09/30/19 10:12 Dose: 5 mg Documented by: Metoprolol Succinate (Toprol Xl (Beta Isabel)) 25 mg PO BID [facility] Last Admin: 09/30/19 10:12 Dose: 25 mg Documented by: Nystatin (Mycostatin Powder) 1 applic TOPICAL BID [facility]; Protocol Last Admin: 09/30/19 10:14 Dose: 1 applicatio Documented by: Ondansetron HCl (Zofran) 4 mg IV Q8H PRN PRN PRN Reason: NAUSEA/VOMITING Last Admin: 09/26/19 09:10 Dose: 4 mg Documented by: Pantoprazole Sodium (Protonix) 40 mg PO BID [facility] Last Admin: 09/30/19 10:13 Dose: 40 mg Documented by: Pramipexole Dihydrochloride (Mirapex) 1 mg PO QHS [facility] Last Admin: 09/29/19 20:45 Dose: 1 mg Documented by: Prochlorperazine Edisylate (Compazine Iv) 10 mg IV Q4H PRN PRN PRN Reason: nausea, vomiting Last Admin: 09/26/19 14:44 Dose: 10 mg Documented by: Sodium Chloride () 10 - 40 ml IV UD PRN PRN Reason: SALINE FLUSH Last Admin: 09/30/19 04:49 Dose: 30 ml Documented by: STROKE Vital Signs/Narrative: Vital Signs Temp Pulse Resp BP Pulse Ox 09/30/19 12:00 95 09/30/19 10:12 76 163/78 H 09/30/19 10:10 98.2 F 76 20 H 163/78 H 95 Medical Necessity - Tobacco Use Smoking Status: Former smoker Assessment/Plan All Active Problems (Last Reviewed 09/26/19 @ 11:18 by Cora Guzman PA-C) Thrombocytopenia (Acute) Sepsis due to Salmonella species with acute hypoxic respiratory failure (Acute) Atrial fibrillation with RVR (Acute) Non-STEMI (non-ST elevated myocardial infarction) (Acute) Acute renal failure (Acute) Vomiting and diarrhea (Acute) Severe dehydration (Acute) Heme positive stool (Acute) Chronic hypoxemic respiratory failure (Resolved) Colitis (Resolved) GI (gastrointestinal bleed) (Resolved) History of DVT (deep vein thrombosis) (Resolved) Hypomagnesemia (Resolved) Hypothyroidism (Resolved) Iron deficiency anemia (Resolved) Severe aortic stenosis (Resolved) 1. Elevated troponin, NSTEMI - stress test negative. Cardiology following. Echo unremarkable. Follow up as outpatient. No aspirin with low platelets. Continue statin, metoprolol. no carlos/arb with MARILEE. 2. Acute sepsis 2/2 acute gastroenteritis 2/2 Salmonella - plan for transition to amoxicillin based [facility]. today no abd pain/nausea/vomiting. 3. Thrombocytopenia - Improved. Likely 2/2 sepsis. Heme/Onc following. Holding antiplatelets. Hgb stable during stay. 4. Metabolic acidosis suspect 2/2 gastroenteritis - resolved 5. MARILEE - 2/2 N/V/D - renal US neg. Improving with lasix. Check in AM. 6. Elevated D dimer - VQ scan is normal. Hx DVT/hypercoag state. No strain pattern on echo. Venous duplex LE negative. 7. Paroxysmal Afib with RVR suspect 2/2 sepsis- cardiology following - resolved. Continue current therapy. Plan is for low dose eliquis at [facility]. Will start here. CHADVASC 7. D/w Cardiology. No significant bleeding with Salmonella, and this is controlled. Pts risk of stroke outweighs risk of bleeding. Had bleeding with coumadin in the past. She has tolerated xarelto in the past. -T4 was elevated. Resumed methimazole. 8. Acute on chronic diastolic CHF, pulmonary HTN - echo as above. CXR with congestion/pleural effusions - on IV lasix. 9. DMt2 - continue lantus/SSI. orals held. 10. Hx hyperthyroidism - tsh somewhat low, however t4 elevated - resume methimazole. . 11. Depression - paxil 12. Hx lupus anticoagulant- follow up with Dr. Gutierrez in 2weeks. 13. Hx MTHFR - follows with Dr. Gutierrez. 14. COPD - No exacerbation. continue pulmicort, duoneb, albuterol. 15. Hx - s/p TAVR/porcine valve. DVT ppx: SCDs, start eliquis tonight. DC planning: Hypoxic with ambulation. Likely from CHF/deconditioning. Continue lasix, aerosols, physical therapy. She will likely need o2 with activity at [place]. -Pt would benefit from HHC vs outpatient for physical therapy. Will d/w CM in AM. This patient was seen by David Paredes PA-C under the supervision of Doctor Mando <Lena Gilmore - Last Filed: 09/30/19 14:49> Vitals/I&O's: Vital Signs Temp Pulse Resp BP Pulse Ox 98.2 F 76 16 163/78 H 93 09/30/19 10:10 09/30/19 13:21 09/30/19 13:21 09/30/19 10:12 09/30/19 13:21 Oxygen Flow Rate (L/min) [ 2 AMBULATION with Oxygen] Oxygen Flow Rate (L/min) [ 0 AMBULATING on Room Air] Oxygen Flow Rate (L/min) [At 0 REST on Room Air] Oxygen Flow Rate (L/min) 2 Oxygen Delivery Method Room Air Weight: 174 lb 6.17 oz Body Mass Index (BMI) 34.0 Finger Stick Blood Glucose 112 Intake and Output for Last 24 Hours 09/28/19 09/29/19 09/30/19 23:59 23:59 23:59 Intake Total 1267.48 / 1267.48 1258.25 / 1258.25 886.25 / 886.25 Output Total 1175 / 1175 950 / 950 Balance 92.48 / 92.48 308.25 / 308.25 886.25 / 886.25 Microbiology Past 72 Hours 09/27/19 14:55 Urine, Clean Catch Urine Culture - Preliminary Presumptive Salmonella Group 09/26/19 17:55 Stool Enteric Bacteriology - Final Salmonella Sp. Laboratory Results 09/27/19 06:05: Heparin-induced Plt Ab 0.152 09/29/19 15:58: POC Glucose 226 H 09/29/19 20:43: POC Glucose 246 H 09/30/19 04:49: WBC 15.5 H, RBC 4.33, Hgb 13.0, Hct 39.0, MCV 90.1, MCH 30.0, MCHC 33.3, RDW Std Deviation 52.6 H, RDW Coeff of Jeff 15.9 H, Plt Count 80 L, MPV 13.7 H 09/30/19 04:49: Sodium 138, Potassium 3.8, Chloride 107, Carbon Dioxide 26.0, Anion Gap 5, BUN 51 H, Creatinine 1.66 H, Estim Creat Clear Calc 21.68, Est GFR (MDRD) Af Amer 39 L, Est GFR (MDRD) Non-Af 32 L, BUN/Creatinine Ratio 30.7 H, Glucose 181 H, Calcium 7.5 L 09/30/19 06:20: POC Glucose 181 H Current Medications Albuterol Sulfate (Ventolin Aerosols) 2.5 mg INHALATION Q6H PRN PRN PRN Reason: SOB &/OR WHEEZING Albuterol/Ipratropium (Duoneb) 3 ml INHALATION Q6HWA.RT [facility] Last Admin: 09/30/19 13:21 Dose: 3 ml Documented by: Amiodarone HCl (Cordarone) 200 mg PO DAILY [facility] Last Admin: 09/30/19 10:13 Dose: 200 mg Documented by: Apixaban (Eliquis) 2.5 mg PO BID [facility] Last Admin: 09/30/19 10:13 Dose: 2.5 mg Documented by: Atorvastatin Calcium (Lipitor) 80 mg PO QHS [facility] Last Admin: 09/29/19 20:46 Dose: 80 mg Documented by: Budesonide (Pulmicort Aerosol) 0.5 mg INHALATION Q12H.RT [facility] Last Admin: 09/30/19 07:23 Dose: 0.5 mg Documented by: Diltiazem HCl (Cardizem Cd) 240 mg PO DAILY [facility] Last Admin: 09/30/19 10:12 Dose: 240 mg Documented by: Fluticasone Propionate (Flonase Nasal [place]) 2 spray NASAL DAILY [facility] Last Admin: 09/30/19 10:14 Dose: 2 spray Documented by: Furosemide (Lasix) 40 mg IV DAILY [facility] Last Admin: 09/30/19 10:13 Dose: 40 mg Documented by: Glucagon () 1 mg IM .X1 PRN PRN Reason: Hypoglycemia Sodium Chloride () 250 mls @ 15 mls/hr IV .[id number] PRN PRN Reason: Saline Flush Last Infusion: 09/30/19 00:30 Dose: 0 mls/hr Documented by: Dextrose (Dextrose 10%-Water) 250 mls @ 999 mls/hr IV X1 PRN; Protocol PRN Reason: HYPOGLYCEMIA Ceftriaxone Sodium 2 gm/ (Sodium Chloride) 50 mls @ 100 mls/hr IV Q24 [facility] Stop: 10/03/19 10:29 Last Infusion: 09/30/19 10:39 Dose: Infused Documented by: Insulin Glargine (Lantus (Bkc)) 10 units SC QHS [facility] Last Admin: 09/29/19 20:46 Dose: 10 units Documented by: Insulin Human Lispro (Humalog Kwikpen (Bk)) 0 unit SC ACHS [facility]; Protocol Last Admin: 09/30/19 11:54 Dose: 2 units Documented by: Methimazole (Tapazole) 5 mg PO DAILY [facility] Last Admin: 09/30/19 10:12 Dose: 5 mg Documented by: Metoprolol Succinate (Toprol Xl (Beta Isabel)) 25 mg PO BID [facility] Last Admin: 09/30/19 10:12 Dose: 25 mg Documented by: Nystatin (Mycostatin Powder) 1 applic TOPICAL BID [facility]; Protocol Last Admin: 09/30/19 10:14 Dose: 1 applicatio Documented by: Ondansetron HCl (Zofran) 4 mg IV Q8H PRN PRN PRN Reason: NAUSEA/VOMITING Last Admin: 09/26/19 09:10 Dose: 4 mg Documented by: Pantoprazole Sodium (Protonix) 40 mg PO BID [facility] Last Admin: 09/30/19 10:13 Dose: 40 mg Documented by: Pramipexole Dihydrochloride (Mirapex) 1 mg PO QHS [facility] Last Admin: 09/29/19 20:45 Dose: 1 mg Documented by: Prochlorperazine Edisylate (Compazine Iv) 10 mg IV Q4H PRN PRN PRN Reason: nausea, vomiting Last Admin: 09/26/19 14:44 Dose: 10 mg Documented by: Sodium Chloride () 10 - 40 ml IV UD PRN PRN Reason: SALINE FLUSH Last Admin: 09/30/19 04:49 Dose: 30 ml Documented by: STROKE Vital Signs/Narrative: Vital Signs Pulse Resp Pulse Ox 09/30/19 13:21 76 16 93 09/30/19 12:00 95 Assessment/Plan Patient seen by David Paredes PA-C under my supervision. Patient seen and examined. She had no complaints today. She did get short of breath with exertion yesterday thus why she was not discharged. She was started on Eliquis on account of CHADVASC score of 7 and A. fib. Of note, patient is on oxygen at home and states he is on 2 L at home mainly at night and during the day as well. Patient is also deconditioned and not tolerating therapy very well. Would likely benefit from home health care for outpatient therapy at discharge. Review systems otherwise negative. Labs and vitals reviewed. o/e: Vital Signs Height 5 ft Weight: 174 lb 6.17 oz Weight in Pounds 174.4 lbs Pulse Ox [AMBULATION with 90 Oxygen] Pulse Ox [AMBULATING on Room 85 Air] Pulse Ox [At REST on Room Air] 92 Pulse Ox 93 Temperature 98.2 F Pulse Rate 76 Respiratory Rate 16 Blood Pressure [BP] 106/59 Blood Pressure 163/78 Blood Pressure Position [BP] Semi-Fowlers Blood Pressure Position Semi-Fowlers General: Alert, Oriented x3, Cooperative HEENT: Atraumatic, PERRLA, EOMI, Normocephalic Neck: Supple, No JVD, Negative Carotid Bruits Lungs: Clear to auscultation, Normal air movement Cardiovascular: Afib, rate controlled. No murmurs Abdomen: Bowel Sounds Present, Soft, Non Tender Extremities: No edema, Capillary Refill Less than 3 Seconds Skin: No rashes, No breakdown Musculoskeletal: No Tenderness to Palpation of Joints or Extremities Neurological: Cranial nerves II-XII grossly intact Psych/Mental Status: Normal Affect, Appropriate, Alert and oriented to time, place, person, mood and affect Plan is for likely dc tomorrow. continue with low dose eliquis. Titrate oxygen to maintain saturation above 90%. Of note, white cell count is also trended down to 15 today. Creatinine is also trended down to 1.66. Liver enzymes also seem to be trending down. We will continue to monitor. Rest of management as per David DUNBAR-C;s note, which I have reviewed and endorsed. Code Visit Inpatient E&M: 32015 Subs Hosp L2
[2019-09-30 16:36] LABS: Bedside Glucose 220 mg/dL (70-110)
[2019-09-30 16:40] LABS: Bedside Glucose 316 mg/dL (70-110)
--- NOTE | 2019-09-30 19:13 | CPS ---
pt refused bipap for tonight
[2019-09-30] MEDS: Pramipexole Di-HCl 1 MG Tablet PO (21:50)
[2019-09-30] MEDS: Atorvastatin Calcium 80 MG Tablet PO (21:50)
[2019-09-30 22:20] LABS: Bedside Glucose 333 mg/dL (70-110)
[2019-10-01] VITALS (7 sets, daily range): BP systolic 110–112; BP diastolic 60–78; PULSE 61–76; RESP 18–20; TEMP 36.3–37.1; O2SAT 87–99
[2019-10-01] MEDS: Insulin Lispro 100 UNIT/ML INSULN.PEN SC ×2 (06:26→11:24)
[2019-10-01 06:56] LABS: Bedside Glucose 199 mg/dL (70-110)
[2019-10-01] MEDS: Ipratropium/Albuterol Sulfate 3 ML AMPUL.NEB INHALATION (07:39)
[2019-10-01] MEDS: Budesonide Respules 0.5 MG/2 ML AMPUL.NEB. INHALATION (07:39)
--- NOTE | 2019-10-01 07:43 | PCM.PN.BLA ---
Progress Note Hematology progress note: Her platelet count has improved over this weekend, but PT PTT are still elevated secondary to possible lupus anticoagulant. Heparin associated antibodies negative. IMPRESSION: 1. Thrombocytopenia secondary to Salmonella sepsis 2. Elevated PT PTT secondary to lupus anticoagulants RECOMMENDATION: -Consider long-term anticoagulation with Xarelto or Eliquis once her infection resolved. -Outpatient work-up for heme-positive stool before starting anticoagulants. -Follow-up as needed. Will sign off. STROKE Vital Signs/Narrative: Vital Signs Pulse Resp Pulse Ox 10/01/19 07:40 64 20 H 94 10/01/19 06:46 61
[2019-10-01] MEDS: Metoprolol(XL)Succ 25 MG Tablet PO (09:05)
[2019-10-01] MEDS: Pantoprazole Sodium 40 MG Tablet PO (09:05)
[2019-10-01] MEDS: 0.9% Saline Lock 10 ML Syringe IV (09:05)
[2019-10-01] MEDS: Furosemide 40 MG/4 ML Vial IV (09:05)
[2019-10-01] MEDS: Methimazole 5 MG Tablet PO (09:05)
[2019-10-01] MEDS: dilTIAZem CD 240 MG Capsule PO (09:05)
[2019-10-01] MEDS: APIXABAN 2.5 MG TABLET PO (09:05)
[2019-10-01] MEDS: Amiodarone 200 MG Tablet PO (09:05)
[2019-10-01] MEDS: Nystatin Powder 15gm Bottle 1 APPLIC TOPICAL (09:06)
[2019-10-01] MEDS: Fluticasone 0.05% 1 SPRAY NASAL.SRY 2 SPRAY NASAL (09:06)
--- NOTE | 2019-10-01 10:08 | CASEMGMT ---
Addendum entered by Mague Forman 10/01/19 11:30: D/C summary faxed to [facility] at this time. Pt does not have anybody to come pick her up but would like to use [facility] hospital van transport to get home as she states she uses them 'all the time.' Pt states no concerns with getting into home and states that her manager wound care there can help her, if needed. Pt is refusing to have a tank delivered to hospital by [facility] as she is ready to leave. Pt states that she has portable tanks and concentrator at home. This SUSI LOW tried to convince pt to have tank delivered to go home and pt states I will be fine. Call to Emma at [facility] to notify of the new order and to notify her that pt declines a tank to go home on, voices understanding. Pt voices no further questions/concerns/needs at this time. Sara GOLDMAN updated on all at this time, voices understanding and U evs tech, Carrillo, calling [facility] van transport to set up time. Bill GOLDMAN CM Original Note: Call to Emma at [facility] and she is aware that pt to be sent home today with home oxygen 3liters. intermediate added to [facility] order at this time, PT/OT already ordered. Emma voices understanding at this time. Per Sara GOLDMAN, pt does qualify for home oxygen at this time, 3 liters w/ activity-see oxygen qualification charting. Pt currently has an order thru [facility] for 3liters at bed time per previous CM assessment. New order for 3 liters with activity faxed to [facility] at this time. Bill GOLDMAN CM
--- NOTE | 2019-10-01 10:14 | DCINST_ITS ---
- Discharge Diagnoses Current Active Problems: Current Active and Chronic Problems (Last Reviewed 09/26/19 @ 11:18 by Cora Guzman PA-C) Thrombocytopenia (Acute) Secondary to sepsis versus heparin-induced thrombocytopenia Sepsis due to Salmonella species with acute hypoxic respiratory failure (Acute) Atrial fibrillation with RVR (Acute) Non-STEMI (non-ST elevated myocardial infarction) (Acute) Acute renal failure (Acute) Vomiting and diarrhea (Acute) Severe dehydration (Acute) Heme positive stool (Acute) You will use the following diet at home:: Cardiac Your food should be the consistency of: Regular Your liquids should be the consistency of: Regular/Thin Discharge Activity: Return to Normal Activity Additional Instructions: Oxygen: 3lpm nasal cannula with activity Allergies/Adverse Reactions: Allergies ciprofloxacin [From Cipro] Allergy (Verified 05/11/19 12:25) Rash ciprofloxacin HCl [From Cipro] Allergy (Verified 05/11/19 12:25) Rash gabapentin [From Neurontin] Allergy (Verified 05/11/19 12:25) Rash heparin Allergy (Verified 09/27/19 07:59) Low platelets Medications to take at Discharge Albuterol Aerosols [Ventolin Aerosols] 2.5 mg INHALATION Q4H PRN PRN 09/26/19 Albuterol IH (ProAir) [Proair Hfa] 2 puff INHALATION Q6H PRN PRN 09/26/19 Calcium Carbonate/Vitamin D3 [Calcium 500-Vit D3 200 Tablet] 1 ea PO TID 09/26/19 Cyanocobalamin (Vitamin B-12) [Vitamin B-12] 1,000 mcg PO DAILY 09/26/19 Diltiazem CD [Cardizem CD] 240 mg PO DAILY 09/26/19 Fesoterodine Fumarate [Toviaz] 8 mg PO DAILY 09/26/19 Fluticasone 0.05% [Flonase Nasal [place]] 2 spray NASAL DAILY 09/26/19 Fluticasone/Salmeterol [Advair Hfa 115-21 Mcg Inhaler] 2 puff INHALATION BID 09/26/19 Insulin Aspart [Novolog Flexpen] units SUBCUT TIDCM 09/26/19 Insulin Detemir [Levemir] 50 unit SQ QHS 09/26/19 Iron Polysaccharide Complex [Ferrex 150] 150 mg PO BID 09/26/19 L.acidoph,Paracasei, B.lactis [Probiotic] 1 ea PO DAILY 09/26/19 Linagliptin [Tradjenta] 5 mg PO DAILY 09/26/19 Methimazole 5 mg PO DAILY 09/26/19 Metoprolol Succinate [Toprol Xl] 25 mg PO BID 09/26/19 Nitroglycerin 0.4 mg SL PRN PRN 09/26/19 Nystatin [Nyamyc] 30 gm TP BID 09/26/19 Omeprazole 20 mg PO DAILY 09/26/19 Paroxetine HCl [Paxil] 40 mg PO DAILY 09/26/19 Potassium Chloride [Klor-Con 10] 20 meq PO DAILY 09/26/19 Roflumilast [Daliresp] 500 mcg PO DAILY 09/26/19 Ropinirole HCl 2 mg PO QHS 09/26/19 Suvorexant [Belsomra] 20 mg PO QHS 09/26/19 Tiotropium [place] [Spiriva] 18 mcg IH DAILY 09/26/19 Amiodarone HCl [Cordarone] 200 mg PO DAILY #30 tab 09/29/19 Amoxicillin 500 mg PO BID #22 tab 09/29/19 Apixaban [Eliquis] 2.5 mg PO BID #60 tab 09/29/19 Atorvastatin Calcium [Lipitor] 80 mg PO QHS #30 tab 09/29/19 Furosemide [Lasix] 40 mg PO DAILY #0 09/29/19 Oxycodone HCl/Acetaminophen [Percocet 10-325 mg Tablet] 1 tab PO TID PRN 09/30/19 The following prescriptions were given: Amoxicillin 500 mg PO BID #22 tab Transmission Status: Received by [facility] [address] [place] [address] Amiodarone HCl [Cordarone] 200 mg PO DAILY #30 tab Transmission Status: Received by [facility] [address] Apixaban [Eliquis] 2.5 mg PO BID #60 tab Transmission Status: Received by [facility] [address] [place] [address] Atorvastatin Calcium [Lipitor] 80 mg PO QHS #30 tab Transmission Status: Received by [facility] [address] [place] [address] Primary Care Physician: Yesenia Leon, HERNESTOC [Primary Care Provider] - Please follow up with your Primary Care Physician in: 1 week Test Results: Test results from this visit will be discussed in further detail at your follow- up appointment, if applicable. Please Follow Up With: Yesenia Leon NP-C Please Follow Up With: Mooes Killian MD When: 1-2 weeks Please Follow Up With: Clau Iniguez MD When: 2 weeks Please Follow Up With: Pee Gutierrez DO When: 2 weeks Please Follow Up With: Your own GI doctor When: 2 weeks Please Follow Up With: Moose Killian MD When: 1-2 weeks Proposed Discharge Date: 09/29/19
--- NOTE | 2019-10-01 10:41 | NURSING ---
PICC line removed at this time. tip intact, applied pressure for 5 minutes. applied vaseline gauze, 2x2, and tegaderm. left pt supine. pt tolerated well.
--- NOTE | 2019-10-01 10:48 | PHA.DC.COU ---
Pharmacy Services has performed discharge medication counseling for this patient. The patient was counseled on the following discharge medications and changes in medications for homegoing review. 1. AMIODARONE 2. ELIQUIS 3. AMOXICILLIN 4. LIPITOR The Reason for Use, instructions for use, and potential side effects were reviewed for all new medications. The patient's questions regarding all of their medications were answered. The patient was able to verbally demonstrate an understanding of their discharge medications.
[2019-10-01 11:35] LABS: Bedside Glucose 270 mg/dL (70-110)
--- NOTE | 2019-10-02 14:58 | CASEMGMT ---
SUSI LOW Discharge Follow-up Phone Call: ROMELIA: Travis Strata: 4 Call Date: 10/02/19 Discharge Date: 10/01/19 Time of Call: 1500 Duration: 5 min Admitting Diagnosis: NSTEMI SUSI LOW completed follow-up phone call after recent hospitalization. Patient states that she is doing pretty good. Patient had no questions or concerns regarding discharge instructions. Patient states that she was able to get prescriptions without any issues. Patient states that [facility] was in to see her today. Patient voice no questions or concerns at this time.
== END 2019-10-01 13:28 | disposition home health service (06) | DRG 871 ==
LOC: ED 23:05 → PCU 09-26 01:55
PROVIDERS: Internal Medicine; Internal Medicine Cardiovascular Disease; Internal Medicine Hematology & Oncology; Physician Assistant; Admitting Provider Hospitalist; Emergency Provider Emergency Medicine; Family Provider Nurse Practitioner; PCP Nurse Practitioner; Referring Provider Hospitalist; Visit Provider Student in an Organized Health Care Education/Training Program
DX: A02.1 Salmonella sepsis (principal); I21.4 Non-ST elevation (NSTEMI) myocardial infarction; J96.01 Acute respiratory failure with hypoxia; I50.33 Acute on chronic diastolic (congestive) heart failure; A02.0 Salmonella enteritis; N17.9 Acute kidney failure, unspecified; D68.62 Lupus anticoagulant syndrome; E72.12 Methylenetetrahydrofolate reductase deficiency; I13.0 Hypertensive heart and chronic kidney disease with heart failure and stage 1 through stage 4 chronic kidney disease, or unspecified chronic kidney disease; R65.20 Severe sepsis without septic shock; I48.91 Unspecified atrial fibrillation; Z23 Encounter for immunization; E86.0 Dehydration; I45.10 Unspecified right bundle-branch block; I27.21 Secondary pulmonary arterial hypertension; E78.5 Hyperlipidemia, unspecified; F32.9 Major depressive disorder, single episode, unspecified; Z87.891 Personal history of nicotine dependence; Z95.2 Presence of prosthetic heart valve; N18.3 Chronic kidney disease, stage 3 (moderate); E11.22 Type 2 diabetes mellitus with diabetic chronic kidney disease; D69.59 Other secondary thrombocytopenia; Z79.4 Long term (current) use of insulin; J44.9 Chronic obstructive pulmonary disease, unspecified
CPT/HCPCS: 36415; 36569; 36600; 71045; 74176; 76705; 76770; 78452; 78582; 80048; 80053; 80061; 80076; 81001; 82274; 82803; 82962; 83615; 83690; 83735; 84439; 84443; 84484; 85014; 85018; 85025; 85027; 85045; 85379; 85384; 85610; 85730; 86022; 87077; 87086; 87088; 87186; 87506; 87804; 87807; 93005; 93017; 93306; 93970; 94002; 94003; 94640; 94762; 97116; 97162; 97166; 97530; 97535; 97802; 99285; A9500; A9540; A9567; G0008; J7030; J7040; J7050; Q9957; 90686; A4216; J0696; J1940; J2405; J2785

== ENCOUNTER → 2019-10-15 12:35 | Outpatient (CLI) | payer MEDICARE, MEDICAID, SELFPAY ==
[2019-05-11 12:25] VITALS: BMI 33.7
[2019-10-12 08:18] VITALS: BMI 34.0
--- NOTE | 2019-10-15 12:37 | CDU_ITS ---
Reason For Study: central retinal vein occlusion, left eye Rt. Velocities/BP Lt. Velocities/BP Prox CCA 88.1/8.6 cm/sec. Prox CCA 62.4/11.6 cm/sec. Mid CCA 80.3/9.9 cm/sec. Mid CCA 58.5/14.2 cm/sec. Dist CCA 61.2/7.7 cm/sec. Dist CCA 65.1/16.8 cm/sec. Prox ICA 76.8/10.3 cm/sec. Prox ICA 131.4/28.3 cm/sec. Mid ICA 72.9/14.2 cm/sec. Mid ICA 96.6/18.1 cm/sec. Dist ICA 69.0/11.6 cm/sec. Dist ICA 93.0/18.1 cm/sec. Rt. ICA/CCA = 76.8/80.3=1.0. Lt. ICA/CCA = 131.4/58.5=2.2. Prox ECA 96.4/0.0 cm/sec. Prox ECA 221.7/14.5 cm/sec. Rt. Vert. 72.9/12.9 cm/sec. Lt. Vert. 53.1/15.0 cm/sec. Right Extracranial There is heterogeneous, irregular atherosclerotic plaque noted in the right common carotid artery. There is heterogeneous, irregular atherosclerotic plaque noted in the right internal carotid artery. There is heterogeneous, smooth atherosclerotic plaque noted in the right external carotid artery. Antegrade flow is noted in the right vertebral artery. Left Extracranial There is intimal thickening but no significant atherosclerotic plaque noted in the left common carotid artery. There is heterogeneous, irregular atherosclerotic plaque noted in the left internal carotid artery. There is heterogeneous, irregular atherosclerotic plaque noted in the left external carotid artery. Antegrade flow is noted in the left vertebral artery. There is heterogeneous, irregular atherosclerotic plaque noted in the left bulb. Procedure Carotid Duplex 36224. Exam performed in department. Interpretation Summary Irregular calcific plaque with shadowing distal right common carotid and proximal internal and external carotid arteries <50% stenosis right internal carotid <50% stenosis right external carotid Irregular calcific plaque at the proximal left internal and external carotid arteries 50-69% stenosis left proximal internal carotid >50% stenosis left proximal external carotid Patent, antegrade, <50% stenosis bilateral vertebrals Ordering Physician: Paul Mercado Referring Physician: Yesenia Leon Performed By: Gayle Lama RDCS, RVT
== END ==
PROVIDERS: Family Provider Nurse Practitioner; PCP Nurse Practitioner; Referring Provider Ophthalmology; Visit Provider Ophthalmology
DX: H34.8122 Central retinal vein occlusion, left eye, stable (principal)
CPT/HCPCS: 93880

== ENCOUNTER → 2019-10-22 10:36 | Outpatient (CLI) | payer MEDICARE, MEDICAID, SELFPAY ==
[2019-10-12 08:18] VITALS: BMI 34.0
[2019-10-22 11:52] LABS: Albumin, Serum 2.6 g/dL (3.2-5.0); BUN 20 mg/dL (7-18); BUN/Creat Ratio 15.5 RATIO (10-20); Calcium,Total 8.6 mg/dL (8.5-10.1); Chloride 110 mmol/L (98-107); Creatinine, Serum 1.29 mg/dL (0.55-1.02); EST Glomerular Filtration Rate 43 mL/min (>60); Est Glom Filt Rate - Afr Amer 52 mL/min (>60); Glucose 118 mg/dL (74-106); Phosphorus 3.2 mg/dL (2.5-4.9); Potassium 4.9 mmol/L (3.5-5.1); Sodium Level 139 mmol/L (136-145)
== END ==
PROVIDERS: Family Provider Nurse Practitioner; PCP Nurse Practitioner; Referring Provider Internal Medicine; Visit Provider Internal Medicine
DX: N17.9 Acute kidney failure, unspecified (principal)
CPT/HCPCS: 36415; 80069

== ENCOUNTER → 2019-10-29 14:12 | Outpatient (CLI) | payer MEDICARE, MEDICAID, SELFPAY ==
[2019-10-12 08:18] VITALS: BMI 34.0
--- NOTE | 2019-10-29 14:14 | CT_ITS ---
STUDY: CT ORBITS WITHOUT CONTRAST REASON FOR EXAM: Female, 74 years old. VISION CHANGES, LEFT OPTIC DISC, PSEUDOPAPILLOEDEMA RADIATION DOSAGE (If Supplied By Facility): CTDIvol = ( 33.45 ) mGy, DLP = ( 344.82 ) mGycm TECHNIQUE: The patient was scanned in a multi detector CT scanner. Transaxial imaging was performed without the administration of intravenous contrast material. Sagittal and coronal images were reconstructed. Individualized dose optimization techniques were used for this CT. COMPARISON: None. FINDINGS: Normal globes. Normal intraconal spaces. Normal optic nerve sheath complex. Normal bilateral extraocular muscles. Normal lacrimal glands. Normal bilateral medial and inferior orbital cheung. Normal bilateral maxillary bones. Normal bilateral frontozygomatic arches. Normal bilateral zygomatic temporal arches. Normal frontal sinus. Normal ethmoidal sinuses. Normal maxillary sinuses. Normal sphenoid sinuses. Normal soft tissue structures. CT/Orb Sella Post Fossa Ear w/o IMPRESSION: Normal CT examination of the bilateral orbits. Electronically Signed: La Nena Mejia MD at 4:46 EST , Service support ,
== END ==
PROVIDERS: Family Provider Nurse Practitioner; PCP Nurse Practitioner; Referring Provider Ophthalmology; Visit Provider Ophthalmology
DX: H47.332 Pseudopapilledema of optic disc, left eye (principal)
CPT/HCPCS: 70480

== ENCOUNTER → 2019-11-01 13:56 | Outpatient (CLI) | payer MEDICARE, MEDICAID, SELFPAY ==
[2019-10-12 08:18] VITALS: BMI 34.0
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
== END ==
PROVIDERS: PCP Nurse Practitioner; Referring Provider Nurse Practitioner; Visit Provider Nurse Practitioner
DX: R07.81 Pleurodynia (principal)
CPT/HCPCS: 71110

== ENCOUNTER → 2019-11-19 06:43 | Outpatient (CLI) | payer MEDICARE, MEDICAID, SELFPAY ==
[2019-11-02 09:16] VITALS: BMI 35.3
--- NOTE | 2019-11-19 18:21 | STRESSREP_ITS ---
Stress Test Report Pharmacologic myocardial perfusion stress test. 74-year-old lady with a history of TAVR and mild to moderate coronary artery disease. Stress protocol: Resting EKG demonstrates normal sinus rhythm with a rate of 63 bpm right bundle branch block is noted resting blood pressure is 144/70 mmHg. 0.4 mg of regadenoson was infused per usual protocol for followed by rapid intravenous saline flush injection continuous EKG monitoring was performed. The maximum heart rate attained was 72 bpm which was 48% of maximum predicted heart rate. The maximum workload was 1 metabolic equivalent. At rest there were no ST or T wave changes noted suggest abnormal flow reserve and at peak infusion nonspecific ST-T wave changes were noted. No clinical angina was noted. The resting blood pressure was 144/70 with a final blood pressure 140/62. Myocardial perfusion protocol. 11.5 mCi of technetium 99m sestamibi was injected at rest. 0.4 mg of re gadenoson was infused per usual protocol. At peak infusion 32.6 mCi of technetium 99m sestamibi was injected stress images were obtained stress and rest images were reconstructed in comparing the short axis vertical long horizontal long axis. Gated images were also obtained Perfusion SPECT analysis: Review of the stress images demonstrate normal uptake of tracer noted in all areas of the myocardium the resting images similar demonstrate a normal uptake of tracer noted in all areas of myocardium. No evidence of reversibility is noted suggest ischemia no previous infarct is noted. Gated SPECT analysis: The gated ejection fraction is noted to be 61%. Conclusion: Normal pharmacologic myocardial perfusion stress test. Preserved ejection fraction.
== END ==
PROVIDERS: PCP Nurse Practitioner; Referring Provider Internal Medicine Cardiovascular Disease; Visit Provider Internal Medicine Cardiovascular Disease
DX: I21.4 Non-ST elevation (NSTEMI) myocardial infarction (principal); I25.10 Atherosclerotic heart disease of native coronary artery without angina pectoris
CPT/HCPCS: 78452; 93017; A9500; A4216; J2785

== ENCOUNTER → 2020-01-09 10:15 | Outpatient (CLI) | payer MEDICARE, MEDICAID, SELFPAY ==
[2019-11-02 09:16] VITALS: BMI 35.3
[2020-01-09 10:53] LABS: Absolute Lymphocyte Count 2.72 X10^3/uL (0.83-4.51); Absolute Neutrophil Count 5.2 X10^3/uL (2.0-7.7); Basophil# 0.04 X10^3/uL; Basophil% 0.4 % (0-1); Eosinophil# 0.21 X10^3/uL; Eosinophils% 2.4 % (0-5); Hematocrit 41.6 % (37-47); Hemoglobin 12.9 g/dL (12.0-15.0); Lymphocyte # 2.72 X10^3/ul (4.0); Lymphocyte % 30.5 % (19-41); Mean Corpuscular Hgb 29.2 pg (27.0-32.0); Mean Corpuscular Volume 94.1 fL (81-99); Mean Platelet Vol. 10.7 fl (6.2-12.0); Monocyte# 0.69 X10^3/uL; Monocyte% 7.7 % (0-10); NRBC Flagged by Analyzer 0 % (0-5); Neutrophil # 5.17 X10^3/uL (2.7-7.7); Neutrophil % 57.9 % (47-70); Platelet Count 274 K/mm3 (150-450); RBC Distribution Width CV 17.5 % (11.6-14.6); RBC Distribution Width SD 59.5 fl (35.1-43.9); Red Blood Count 4.42 M/mm3 (4.2-5.4); White Blood Count 8.9 K/mm3 (4.4-11.0)
[2020-01-09 11:00] LABS: Anion Gap 5 (5-15); BUN 14 mg/dL (7-18); BUN/Creat Ratio 11.3 RATIO (10-20); Calcium,Total 8.6 mg/dL (8.5-10.1); Chloride 105 mmol/L (98-107); Creatinine, Serum 1.24 mg/dL (0.55-1.02); EST Glomerular Filtration Rate 45 mL/min (>60); Est Glom Filt Rate - Afr Amer 54 mL/min (>60); Glucose 128 mg/dL (74-106); Potassium 4.4 mmol/L (3.5-5.1); Sodium Level 140 mmol/L (136-145)
[2020-01-09 11:14] LABS: Free T3 1.5 pg/mL (2.18-3.98); T4 Free Direct 0.53 ng/dL (0.76-1.46)
[2020-01-10 16:07] LABS: Angiotensin Convert Enzyme 52 U/L (14-82)
== END ==
PROVIDERS: Internal Medicine Endocrinology, Diabetes & Metabolism; PCP Nurse Practitioner; Referring Provider Internal Medicine Nephrology; Visit Provider Ophthalmology
DX: N18.3 Chronic kidney disease, stage 3 (moderate) (principal); I48.91 Unspecified atrial fibrillation; E05.20 Thyrotoxicosis with toxic multinodular goiter without thyrotoxic crisis or storm
CPT/HCPCS: 80048; 82164; 84439; 84443; 84481; 85025

== ENCOUNTER → 2020-02-18 07:27 | Outpatient (CLI) | payer MEDICARE, MEDICAID, SELFPAY ==
[2020-01-11 10:14] VITALS: BMI 35.3
== END ==
PROVIDERS: PCP Nurse Practitioner; Referring Provider Internal Medicine Endocrinology, Diabetes & Metabolism; Visit Provider Internal Medicine Endocrinology, Diabetes & Metabolism
DX: Z00.00 Encounter for general adult medical examination without abnormal findings (principal)

== ENCOUNTER → 2020-03-12 10:00 | Outpatient (CLI) | payer MEDICARE, MEDICAID, SELFPAY ==
[2020-01-11 10:14] VITALS: BMI 35.3
[2020-03-12 11:29] LABS: Amphetamine Urine VISTA NEGATIVE (<1000 ng/mL); Barbiturate Urine VISTA NEGATIVE (< 200 ng/mL); Benzodiazepine Urine VISTA NEGATIVE (< 200 ng/mL); Cocaine Urine VISTA NEGATIVE (< 300 ng/mL); Ecstacy Urine VISTA NEGATIVE (< 500 ng/mL); Methadone Urine VISTA NEGATIVE (< 300 ng/mL); PCP Urine VISTA NEGATIVE (< 25 ng/mL); THC Urine VISTA NEGATIVE (< 50 ng/mL); Vista UDS pH Range 6
== END ==
PROVIDERS: PCP Nurse Practitioner; Referring Provider Anesthesiology Pain Medicine; Visit Provider Anesthesiology Pain Medicine
DX: F11.20 Opioid dependence, uncomplicated (principal)
CPT/HCPCS: 80307

== ENCOUNTER → 2020-03-17 12:13 | Outpatient (CLI) | payer MEDICARE, MEDICAID, SELFPAY ==
[2020-01-11 10:14] VITALS: BMI 35.3
[2020-03-17 12:54] VITALS: BP 122/67; PULSE 78; RESP 16; TEMP 36.6; O2SAT 98; BMI 35.3
== END ==
PROVIDERS: PCP Nurse Practitioner; Referring Provider Internal Medicine Hematology & Oncology; Visit Provider Internal Medicine Hematology & Oncology
DX: D50.0 Iron deficiency anemia secondary to blood loss (chronic) (principal); K90.9 Intestinal malabsorption, unspecified; K92.2 Gastrointestinal hemorrhage, unspecified
CPT/HCPCS: 96365; J1756; J7050; A4216

== ENCOUNTER → 2020-03-19 11:40 | Outpatient (CLI) | payer MEDICARE, MEDICAID, SELFPAY ==
[2020-01-11 10:14] VITALS: BMI 35.3
[2020-03-17 12:54] VITALS: BMI 35.3
[2020-03-19 11:54] VITALS: BP 130/48; PULSE 56; RESP 18; TEMP 36.6; O2SAT 100; BMI 34.8
[2020-03-19] MEDS: 0.9% NaCl IVPB Med Flush (250 mL) 15 ML IV (12:25)
[2020-03-19] MEDS: 0.9% NaCl Peripheral Flush Adult/Peds IV (12:26)
== END ==
PROVIDERS: PCP Nurse Practitioner; Referring Provider Internal Medicine Hematology & Oncology; Visit Provider Internal Medicine Hematology & Oncology
DX: D50.0 Iron deficiency anemia secondary to blood loss (chronic) (principal); K90.9 Intestinal malabsorption, unspecified; K92.2 Gastrointestinal hemorrhage, unspecified
CPT/HCPCS: 96365; J1756; J7050; A4216

== ENCOUNTER → 2020-03-21 12:11 | Outpatient (CLI) | payer MEDICARE, MEDICAID, SELFPAY ==
[2020-01-11 10:14] VITALS: BMI 35.3
[2020-03-19 11:54] VITALS: BMI 34.8
[2020-03-21 12:42] VITALS: BP 161/64; PULSE 62; RESP 16; TEMP 36.7; BMI 34.5
[2020-03-21 13:22] VITALS: BP 162/68; PULSE 66; RESP 18
== END ==
PROVIDERS: PCP Nurse Practitioner; Referring Provider Internal Medicine Hematology & Oncology; Visit Provider Internal Medicine Hematology & Oncology
DX: D50.0 Iron deficiency anemia secondary to blood loss (chronic) (principal); K90.9 Intestinal malabsorption, unspecified; K92.2 Gastrointestinal hemorrhage, unspecified
CPT/HCPCS: 96365; J1756; J7050

== ENCOUNTER → 2020-03-24 12:13 | Outpatient (CLI) | payer MEDICARE, MEDICAID, SELFPAY ==
[2020-01-11 10:14] VITALS: BMI 35.3
[2020-03-21 12:42] VITALS: BMI 34.5
[2020-03-24 12:31] VITALS: BP 155/53; PULSE 63; RESP 18; TEMP 36.7; O2SAT 100; BMI 34.5
== END ==
PROVIDERS: PCP Nurse Practitioner; Referring Provider Internal Medicine Hematology & Oncology; Visit Provider Internal Medicine Hematology & Oncology
DX: D50.0 Iron deficiency anemia secondary to blood loss (chronic) (principal); K90.9 Intestinal malabsorption, unspecified; K92.2 Gastrointestinal hemorrhage, unspecified
CPT/HCPCS: 96365; J1756; J7050

== ENCOUNTER → 2020-03-26 11:43 | Outpatient (CLI) | payer MEDICARE, MEDICAID, SELFPAY ==
[2020-01-11 10:14] VITALS: BMI 35.3
[2020-03-24 12:31] VITALS: BMI 34.5
[2020-03-26 11:55] VITALS: BP 165/49; PULSE 77; RESP 18; TEMP 36.3; O2SAT 95; BMI 34.5
== END ==
PROVIDERS: PCP Nurse Practitioner; Referring Provider Internal Medicine Hematology & Oncology; Visit Provider Internal Medicine Hematology & Oncology
DX: D50.0 Iron deficiency anemia secondary to blood loss (chronic) (principal); K90.9 Intestinal malabsorption, unspecified; K92.2 Gastrointestinal hemorrhage, unspecified
CPT/HCPCS: 96365; J1756; J7050; A4216

== ENCOUNTER 2020-04-11 13:52 | Inpatient (IN) | payer MEDICARE, MEDICAID, SELFPAY ==
[2020-03-26 11:55] VITALS: BMI 34.5
[2020-04-11] VITALS (17 sets, daily range): BP systolic 151–197; BP diastolic 65–86; PULSE 58–72; RESP 14–50; TEMP 36.2–36.8; O2SAT 73–100; BMI 37.5; BMI 36.1
--- NOTE | 2020-04-11 14:02 | RAD_ITS ---
STUDY: X-RAY CHEST REASON FOR EXAM: Female, 75 years old. SHORT OF BREATH, CHF, COPD, FLUID RETENTION TECHNIQUE: Single AP portable view of the chest. COMPARISON: 09/26/2019. FINDINGS: Lungs show widespread interstitial prominence, and airspace disease in both lower lung brush right worse than left. Findings could represent atelectasis or infiltrate. Cannot exclude bilateral small pleural effusions. There is moderate cardiac enlargement. Normal mediastinum and duarte. Normal visualized pulmonary arteries. There is atherosclerotic tortuosity of the aortic arch and descending thoracic aorta. Normal visualized thoracic spine. Normal visualized ribs, clavicles, and shoulders. There is no demonstrated abnormality of the visualized soft tissue structures of the upper abdomen. RAD/Chest 1 View (Portable) IMPRESSION: Diffuse interstitial prominence. Probable mild congestion and interstitial edema. Atelectasis or infiltrate in both lung bases worse on the left. Moderate cardiomegaly. Electronically Signed: Anthony Moralez MD at 15:20 EDT , Service support ,
--- NOTE | 2020-04-11 14:02 | EKG12_ITS ---
Test Reason : SOB Blood Pressure : / mmHG Vent. Rate : 065 BPM Atrial Rate : 065 BPM P-R Int : 150 ms QRS Dur : 140 ms QT Int : 506 ms P-R-T Axes : -20 101 042 degrees QTc Int : 526 ms Normal sinus rhythm Right bundle branch block Abnormal ECG Confirmed by GYPSY MARTINEZ, SUNDAY ([id number]), copy editor LULÚ COLLINS ([id number]) on 04/15/2020 12:42:50 PM Referred By: [facility] Confirmed By:SUNDAY BETANCUR MD
--- NOTE | 2020-04-11 14:17 | ED.DCSUM_ITS ---
History of Present Illness Chief Complaint: Shortness of Breath Informant: Patient Narrative: Patient presents with shortness of breath for the the past 2 days, she has no fever chills cough or congestion she did notice increased swelling in both her legs starting yesterday she has a history of COPD and CHF. She denies any chest pain or pleuritic component she has no back pain or tearing sensation. No known sick contacts. Past Medical History - Allergies and Home Meds Allergies/Adverse Reactions: Allergies ciprofloxacin [From Cipro] Allergy (Verified 04/11/20 13:53) Rash ciprofloxacin HCl [From Cipro] Allergy (Verified 04/11/20 13:53) Rash gabapentin [From Neurontin] Allergy (Verified 04/11/20 13:53) Rash heparin Allergy (Verified 04/11/20 13:53) Low platelets Primary Care Physician: Yesenia Leon NP-C [Primary Care Provider] - Past Medical History: - - COPD CHF diabetes hypertension history of aortic valve replacement, otherwise reviewed with the patient at bedside Surgical History: appendectomy - Right hip replacement, back surgery, laminectomy, carpal tunnel surgery, right leg hematoma extraction, hysterectomy, rotator cuff repair, total hip arthroplasty, - - carpal tunnel, RLE DVT Smoking Status: Former smoker - Family History Maternal Family History: Family History (Last Reviewed 01/11/20 @ 10:[address] Tom June MD) Mother Arthritis Diabetes Hormone deficiency CVA (cerebral vascular accident) Colon cancer Cancer Sister Bleeding disorder CVA (cerebral vascular accident) Colon cancer Daughter Cancer Seizures Father Diabetes Leukemia Grandmother Diabetes Unknown Asthma Heart disease Hypertension High cholesterol Thyroid disorder Osteoporosis Cancer Tuberculosis Family History: Reports: No pertinent history Review of Systems All systems negative except as indicated General: Reports: - - Generalized weakness. Denies: Fever Eyes: Reports: Visual changes - bilaterally ENT: Denies: Rhinorrhea, Sore throat Cardiovascular: Denies: Chest pain, Palpitations Respiratory: Reports: Dyspnea, Cough. Denies: Sputum Gastrointestinal: Denies: Abdominal pain Musculoskeletal: Denies: Myalgias, Back pain Skin: Denies: Rash Neurological: Reports: - - No focal weakness. Denies: Headache, Parasthesia Hematologic: Reports: Easy bruising Allergy: Denies: Uticaria Physical Exam Vital Signs/Narrative: Vital Signs Temp Pulse Resp BP Pulse Ox 04/11/20 13:58 97.2 F L 72 28 H 197/86 H 95 04/11/20 13:54 97.2 F L 72 28 H 197/86 H 75 General: - - Chronically ill, appears in some distress Head: Normocephalic Eyes: Perrl, EOMI ENT: - - No signs of upper respiratory infection Neck: Supple Cardiovascular: Regular rate, Regular rhythm, - - Difficult to establish if there is a murmur secondary to environmental nose, I could not appreciate JVD Respiratory: - - Patient is tachypneic, she has diminished breath sounds bilateraly, with end expiratory wheezing she appears in some distress but is speaking in 5-6 word sentences. Abdomen: Soft, Nontender Back: Nontender, Normal Inspection Extremities: - - Bilateral lower extremity edema which is symmetric Skin: Normal color Neurological: Alert, Normal Strength, Normal Sensation Psychological: Normal affect Diagnostic/Tx/Re-eval - Rhythm Strip Rhythm Strip: Sinus Rhythm Rate: 65 Ectopy: None - EKG Initial EKG Interpretation: Sinus Rhythm, - - Rate of 65. Right bundle branch pattern. Normal OK interval, slightly prolonged QTc interval at 526. No other ischemic changes are seen. Otherwise normal EKG - Medical Decision Making Patient is found to have CHF, she likely has COPD also thus she was given steroids. She was also given Lasix, initially she was on a nonrebreather mask with a reasonable ABG. However after about 2-1/2 hours of being in the emergency department patient ended up worsening, I started a BiPAP on her, she will need to be admitted to the intensive care unit. I discussed with the admitting doctor. Diagnostically the patient has CHF based on physical exam, natruretic peptide and x-ray findings she likely has COPD, at this time I do not see a reason to check for pulmonary embolism or other etiologies for her shortness of breath. - Critical Care Time Critical care time (excluding procedures): 30-74 minutes, Discussing w/Patient &/or Family/Child'S Nurse, Discussing w/Consultants, Arranging Admission or Transfer, Performing Direct Patient Care at Bedside ED Disposition - Plan for ED Patient: Diagnosis: Respiratory failure, CHF (congestive heart failure), COPD (chronic obstructive pulmonary disease) Referrals: Yesenia Leon, D[employer] TECHNICAL ARCHITECT-C [Primary Care Provider] -
[2020-04-11 14:18] LABS: Absolute Lymphocyte Count 0.73 X10^3/uL (0.83-4.51); Absolute Neutrophil Count 13.7 X10^3/uL (2.0-7.7); Basophil# 0.08 X10^3/uL; Basophil% 0.5 % (0-1); Eosinophil# 0.04 X10^3/uL; Eosinophils% 0.3 % (0-5); Hematocrit 42.6 % (37-47); Hemoglobin 11.6 g/dL (12.0-15.0); Lymphocyte # 0.73 X10^3/ul (4.0); Lymphocyte % 4.9 % (19-41); Mean Corp Hgb Conc 27.2 g/dL (32-36); Mean Corpuscular Hgb 26.9 pg (27.0-32.0); Mean Corpuscular Volume 98.8 fL (81-99); Mean Platelet Vol. 10.6 fl (6.2-12.0); Monocyte# 0.37 X10^3/uL; Monocyte% 2.5 % (0-10); NRBC Flagged by Analyzer 0 % (0-5); Neutrophil # 13.67 X10^3/uL (2.7-7.7); Neutrophil % 91.1 % (47-70); POSITIVE MORPHOLOGY YES; Platelet Count 437 K/mm3 (150-450); RBC Distribution Width CV 24.7 % (11.6-14.6); RBC Distribution Width SD 88.1 fl (35.1-43.9); Red Blood Count 4.31 M/mm3 (4.2-5.4)
[2020-04-11 14:19] LABS: Differential Indicated SCAN CRITERIA MET
[2020-04-11] MEDS: MethylPREDNISolone 125 MG/2 ML Vial IV ×2 (14:27→16:34)
[2020-04-11] MEDS: Ipratropium/Albuterol Sulfate 3 ML AMPUL.NEB INHALATION ×2 (14:31→21:00)
[2020-04-11 14:55] LABS: Anisocytosis 1+; BNP,B-Type NATRIURETIC PEPTIDE 1792.5 pg/mL (0-100)
[2020-04-11 15:32] LABS: ALB/GLOB Ratio 0.8 RATIO (0.9-2.4); AST(SGOT) 34 U/L (15-37); Alanine Aminotransfer ALT/SGPT 49 U/L (13-56); Albumin, Serum 3.2 g/dL (3.2-5.0); Alkaline Phosphatase 93 U/L (45-117); Anion Gap 7 (5-15); BUN 17 mg/dL (7-18); BUN/Creat Ratio 15.7 RATIO (10-20); Calcium,Total 8.8 mg/dL (8.5-10.1); Chloride 110 mmol/L (98-107); Creatinine, Serum 1.08 mg/dL (0.55-1.02); EST Glomerular Filtration Rate 53 mL/min (>60); Est Glom Filt Rate - Afr Amer 64 mL/min (>60); Estimated Creatinine Clearance 32.83 ml/min; Globulin 3.9 g/dL (2.2-4.2); Glucose 136 mg/dL (74-106); Potassium 4.6 mmol/L (3.5-5.1); Protein, Total 7.1 g/dL (6.4-8.2); Sodium Level 142 mmol/L (136-145)
--- NOTE | 2020-04-11 16:26 | NURSING ---
ICU ACUTE CHF/COPD EXAC PAINTSIL
[2020-04-11] MEDS: Furosemide 40 MG/4 ML Vial IV ×2 (16:35→21:38)
--- NOTE | 2020-04-11 17:30 | NURSING ---
ICU 1
--- NOTE | 2020-04-11 17:48 | PCM.HP.STD ---
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 use: with termite control technician use Diabetes mellitus complication status: with kidney complications Diabetes mellitus complication detail: with chronic kidney disease Chronic kidney disease stage: stage 3 (moderate) Qualified Code(s): E11.22 - Type 2 diabetes mellitus with diabetic chronic kidney disease; N18.3 - Chronic kidney disease, stage 3 (moderate); 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 (7) Non-STEMI (non-ST elevated myocardial infarction) Status: Resolved (8) Paroxysmal atrial fibrillation Status: Chronic (9) Non-rheumatic aortic stenosis Status: Chronic (10) H/O aortic valve replacement Status: Chronic Comment: TAVR: 23 mm Guillaume-Sapiens S3 valve 12/03/2016 (11) Chronic diastolic heart failure Status: Chronic (12) Left carotid artery stenosis Status: Chronic (13) Right bundle branch block (RBBB) Status: Chronic (14) Hyperlipidemia Status: Chronic Qualifiers: Hyperlipidemia type: mixed hyperlipidemia Qualified Code(s): E78.2 - Mixed hyperlipidemia (15) Essential (primary) hypertension Status: Chronic History of Present Illness Date of Admission: 04/11/20 Chief Complaint: SOB The patient is a 75 year old F with pmhx of COPD with chronic hypoxic respiratory failure baseline 4lpm at home, RIKKI on home CPAP, diastolic CHF, pAfib pt of Dr. Killian, DMt2, hyperthyroidism, CKDIII, who presented to the ER with c/o SOB. The patient states that she started getting SOB two days ago. She also has increased LE edema, orthopnea, and weight gain of 10 lbs in two days. She denies dietary indiscretions. She c.o some pressure over the chest as well. She came to the ER and had progressive SOB which is now starting to improve on Bipap. She denies new cough or fevers and chills. She is admitted for CHF exacerbation with probably component of COPD exacerbation. [] Past Medical History Past Medical History (Chronic Problems): Chronic Problems (Last Reviewed 01/11/20 @ 10:[address] Tom June MD) COPD (chronic obstructive pulmonary disease) (Chronic) Polyneuropathy due to type 2 diabetes mellitus (Chronic) Toxic multinodular goiter (Chronic) Diabetes (Chronic) Paroxysmal atrial fibrillation (Chronic) Anemia (Chronic) Non-rheumatic aortic stenosis (Chronic) H/O aortic valve replacement (Chronic 12/03/16) TAVR: 23 mm Guillaume-Sapiens S3 valve 12/03/2016 Chronic diastolic heart failure (Chronic) Left carotid artery stenosis (Chronic) Right bundle branch block (RBBB) (Chronic) Hyperlipidemia (Chronic) Essential (primary) hypertension (Chronic) Medical History: Medical History (Last Reviewed 01/11/20 @ 10:[address] Tom June MD) Non-STEMI (non-ST elevated myocardial infarction) (Resolved) Onset Date: 09/27/19 I21.4 Paroxysmal atrial fibrillation (Chronic) I48.0 Anemia (Chronic) D64.9 Non-rheumatic aortic stenosis (Chronic) I35.0 Chronic diastolic heart failure (Chronic) I50.32 Left carotid artery stenosis (Chronic) I65.22 Right bundle branch block (RBBB) (Chronic) I45.10 Hyperlipidemia (Chronic) E78.5 Essential (primary) hypertension (Chronic) I10 Type 2 diabetes mellitus E11.9 Anxiety F41.9 Arthritis M19.90 Asthma J45.909 Back problem M53.9 Breast lump N63.0 COPD (chronic obstructive pulmonary disease) J44.9 COPD exacerbation J44.1 Carotid artery stenosis I65.29 Carpal tunnel syndrome G56.00 Cataracts, bilateral H26.9 Depression F32.9 Fibromyalgia M79.7 Fibromyalgia M79.7 GERD (gastroesophageal reflux disease) K21.9 H/O transfusion of whole blood Z92.89 Headache R51 Hormone deficiency E34.8 Hypothyroidism E03.9 IBS (irritable bowel syndrome) K58.9 Kidney disease N28.9 MTHFR mutation E72.12 Neuropathy G62.9 Obesity E66.9 Osteoarthritis M19.90 Osteoporosis M81.0 Pneumonia J18.9 RLS (restless legs syndrome) G25.81 Skin cancer C44.90 Thyroid disease E07.9 Tuberculosis A15.9 UTI (urinary tract infection) N39.0 blood clots Acute renal failure N17.9 Atrial fibrillation with RVR I48.91 Bone fracture T14.8XXA COPD exacerbation (Resolved) J44.1 Heme positive stool R19.5 Secondary pulmonary arterial hypertension I27.21 Sepsis due to Salmonella species with acute hypoxic respiratory failure A02.1, R65.20, J96.01 Thrombocytopenia D69.6 Secondary to sepsis versus heparin-induced thrombocytopenia Acute on chronic anemia (Inactive) D64.9 Claudication I73.9 Seasonal allergies J30.2 Allergies ciprofloxacin [From Cipro] Allergy (Verified 04/11/20 13:53) Rash ciprofloxacin HCl [From Cipro] Allergy (Verified 04/11/20 13:53) Rash gabapentin [From Neurontin] Allergy (Verified 04/11/20 13:53) Rash heparin Allergy (Verified 04/11/20 13:53) Low platelets Home Medications: Ambulatory Orders Medication Instructions Recorded Albuterol Aerosols [Ventolin 2.5 mg INHALATION Q4H PRN PRN 09/26/19 Aerosols] Albuterol IH (ProAir) [Proair Hfa] 2 puff INHALATION Q6H PRN PRN 09/26/19 Cyanocobalamin (Vitamin B-12) 1,000 mcg PO DAILY 09/26/19 [Vitamin B-12] Diltiazem CD [Cardizem CD] 240 mg PO DAILY 09/26/19 Fluticasone 0.05% [Flonase Nasal 2 spray NASAL DAILY 09/26/19 [place]] Fluticasone/Salmeterol [Advair Hfa 2 puff INHALATION BID 09/26/19 115-21 Mcg Inhaler] Insulin Aspart [Novolog Flexpen] 10 units SUBCUT TIDCM 09/26/19 Iron Polysaccharide Complex 150 mg PO BID 09/26/19 [Ferrex 150] L.acidoph,Paracasei, B.lactis 1 ea PO DAILY 09/26/19 [Probiotic] Metoprolol Succinate [Toprol Xl] 25 mg PO BID 09/26/19 Nystatin [Nyamyc] 30 gm TP BID 09/26/19 Omeprazole 20 mg PO DAILY 09/26/19 Paroxetine HCl [Paxil] 40 mg PO DAILY 09/26/19 Potassium Chloride [Klor-Con 10] 20 meq PO DAILY 09/26/19 Roflumilast [Daliresp] 500 mcg PO DAILY 09/26/19 Ropinirole HCl 2 mg PO QHS 09/26/19 Suvorexant [Belsomra] 20 mg PO QHS 09/26/19 Tiotropium [place] [Spiriva] 18 mcg IH DAILY 09/26/19 Atorvastatin Calcium [Lipitor] 80 mg PO QHS #30 tab 09/29/19 Oxycodone HCl/Acetaminophen 1 tab PO TID PRN 09/30/19 [Percocet 10-325 mg Tablet] insulin detemir U-100 100 unit/mL 35 unit SC QHS ml 10/12/19 subcutaneous solution nitroglycerin 0.4 mg sublingual 0.4 mg SUBLINGUAL PRN PRN #25 tab 10/24/19 tablet amiodarone 200 mg tablet 200 mg PO DAILY #30 tab 11/02/19 furosemide 40 mg tablet 40 mg PO DAILY 11/02/19 calcium carbonate 500 mg (1,250 1 tab PO DAILY tab 01/11/20 mg)-vitamin D3 200 unit tablet methimazole 5 mg tablet 5 mg PO DAILY tab 01/11/20 Surgical History: Surgical History (Last Reviewed 04/11/20 @ 17:54 by MANJINDER Alvarez) H/O aortic valve replacement (Chronic) Onset Date: 12/03/16 Z95.2 TAVR: 23 mm Guillaume-Sapiens S3 valve 12/03/2016 H/O: hysterectomy Z98.890, Z90.710 H/O laminectomy Z98.890 History of left heart catheterization Onset Date: 09/03/16 Z98.890 History of tympanoplasty Z98.890 Hx of melanoma excision Z98.890, Z85.820 1996 Hx of removal of cyst Z98.890 Ganglion cyst right wrist Hx of rotator cuff surgery Z98.890 JAIME S/P hip replacement Z96.649 S/p bilateral carpal tunnel release Z98.890 Surgical History: appendectomy - Right hip replacement, back surgery, laminectomy, carpal tunnel surgery, right leg hematoma extraction, hysterectomy, rotator cuff repair, total hip arthroplasty, - - carpal tunnel, RLE DVT Psychiatric History: Anxiety, Depression 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 Smoking Status: Former smoker Tobacco Use: Non-smoker Alcohol: None Drugs: None - *Family History Maternal Family History: Family History (Last Reviewed 04/11/20 @ 17:54 by MANJINDER Alvarez) Mother Arthritis Diabetes Hormone deficiency CVA (cerebral vascular accident) Colon cancer Cancer Sister Bleeding disorder CVA (cerebral vascular accident) Colon cancer Daughter Cancer Seizures Father Diabetes Leukemia Grandmother Diabetes Unknown Asthma Heart disease Hypertension High cholesterol Thyroid disorder Osteoporosis Cancer Tuberculosis History Items: No pertinent history Review of Systems Constitutional: Reports: Weight Change. Denies: Chills, Fever HEENT: Denies: Head Aches, Sinus Congestion, Sinus Drainage Cardiovascular: Reports: Chest Pressure, Edema, Orthopnea. Denies: Chest Pain, Light Headedness, Palpitations, Paroxysmal Noc. Dyspnea Respiratory: Reports: Shortness of Breath, Shortness of breath at rest, Shortness of breath upon exertion. Denies: Cough, Pleuritic Pain, Sputum production, Wheezing Gastrointestinal: Denies: Abdominal Pain, Diarrhea, Nausea, Vomiting Genitourinary: Denies: Dysuria, Hesitancy, Urgency Musculoskeletal: Denies: Joint Pain, Joint Tenderness Skin: Denies: Lesions, Rash, Wounds Neurological: Denies: Numbness, Tingling, Focal weakness Psychiatric: Denies: Anxiety, Depression, Homicidal Ideations, Suicidal Ideations Hematologic/ Lymphatic: Denies: Easy Bruising, Easy Bleeding VTE Information - Inpt Only VTE Present on Admission: No VTE Mechan Device Prophylaxis: None VTE Pharm Prophylaxis ordered?: Yes Patient Problems: Active and Suspected Problems (Last Reviewed 01/11/20 @ 10:[address] Tom June MD) Respiratory failure (Acute) CHF (congestive heart failure) (Acute) Acute on chronic respiratory failure with hypoxia (Acute) Diastolic CHF, acute (Acute) COPD exacerbation (Acute) - Physical Exam Vitals/I&O's: Vital Signs Temp Pulse Resp BP Pulse Ox 97.2 F L 68 22 H 165/78 H 92 04/11/20 13:58 04/11/20 16:30 04/11/20 16:30 04/11/20 15:16 04/11/20 16:30 Oxygen Flow Rate (L/min) 15 Oxygen Delivery Method Non-Rebreather Weight: 192 lb 7.417 oz Body Mass Index (BMI) 37.5 Finger Stick Blood Glucose 112 General: Alert, Oriented x3, Cooperative HEENT: Atraumatic, PERRLA, EOMI, Normocephalic Neck: Supple, No JVD, Negative Carotid Bruits Lungs: Clear to auscultation, Diminished, Short of Breath, Tachypneic, - - conversational dyspnea Cardiovascular: No murmurs, Tachycardic Abdomen: Bowel Sounds Present, Soft, Non Tender Extremities: No edema, Capillary Refill Less than 3 Seconds, Edema - 1+ edema BL LE Skin: No rashes, No breakdown Musculoskeletal: No Tenderness to Palpation of Joints or Extremities Neurological: Cranial nerves II-XII grossly intact Psych/Mental Status: Normal Affect, Appropriate, Alert and oriented to time, place, person, mood and affect Laboratory Results 04/11/20 14:05: WBC 15.0 H, RBC 4.31, Hgb 11.6 L, Hct 42.6, MCV 98.8, MCH 26.9 L, MCHC 27.2 L, RDW Std Deviation 88.1 H, RDW Coeff of Jeff 24.7 H, Plt Count 437, MPV 10.6, Immature Gran % (Auto) 0.700, Neut % (Auto) 91.1 H, Lymph % (Auto) 4.9 L, Conway % (Auto) 2.5, Eos % (Auto) 0.3, Baso % (Auto) 0.5, Absolute Neuts (auto) 13.7 H, Absolute Lymphs (auto) 0.73 L, Nucleated RBC % 0, Anisocytosis 1+ 04/11/20 14:05: Troponin I < 0.015 04/11/20 14:05: B-Natriuretic Peptide 1792.5 H 04/11/20 14:05: Sodium 142, Potassium 4.6, Chloride 110 H, Carbon Dioxide 25.0, Anion Gap 7, BUN 17, Creatinine 1.08 H, Estim Creat Clear Calc 32.83, Est GFR (MDRD) Af Amer 64, Est GFR (MDRD) Non-Af 53 L, BUN/Creatinine Ratio 15.7, Glucose 136 H, Calcium 8.8, Total Bilirubin 0.60, AST 34, ALT 49, Alkaline Phosphatase 93, Total Protein 7.1, Albumin 3.2, Globulin 3.9, Albumin/Globulin Ratio 0.8 L 04/11/20 14:30: COVID-19 ([facility]) Pending 04/11/20 14:30: COVID-19 (NATY) Pending Assessment/Plan All Active Problems (Last Reviewed 01/11/20 @ 10:[address] Tom June MD) Respiratory failure (Acute) CHF (congestive heart failure) (Acute) Acute on chronic respiratory failure with hypoxia (Acute) Diastolic CHF, acute (Acute) COPD exacerbation (Acute) Right rib fracture (Acute ~11/02/19) Non-STEMI (non-ST elevated myocardial infarction) (Resolved 09/27/19) COPD exacerbation (Resolved) Chronic hypoxemic respiratory failure (Resolved) Colitis (Resolved) GI (gastrointestinal bleed) (Resolved) History of DVT (deep vein thrombosis) (Resolved) Hypomagnesemia (Resolved) Hypothyroidism (Resolved) Iron deficiency anemia (Resolved) Severe aortic stenosis (Resolved) Severe dehydration (Resolved) Vomiting and diarrhea (Resolved) 1. Acute on chronic hypoxic respiratory failure 2/2 diastolic CHF exacerbation and COPD exacerbation - continue Bipap. Continue IV lasix. Start IV steroids and aerosols. -CXR c/w CHF -BNP 1792 -10 lb weight gain -LE edema and inc orthopnea -covid pending: low suspicion -no fever, leukocytosis however no acute infectious etiology suspected -Echo 10/04 with preserved EF mild pulm htn, 1+ MVI/TVI, stable bioprosthetic av, pt in afib -stress test 12/06 negative for ischemia 2. pAfib - rate stable. cardizem, toprol, amiodarone, formerly on coumadin and per cardiology note pt should be on eliquis, however this is not listed in her home meds and will need confirmed. 3. RIKKI - compliant with cpap qhs, bipap while here 4. Hx , Aortic valve replacement for : TAVR 5. DMt2 with obesity - SSI, TID insulin, lantus 6. Hx lupus anticoagulant, MTHFR, pt of Dr. Gutierrez, formerly on coumadin 7. HTN - uncontrolled. monitor and adjust home meds as needed 8. CKDIII - stable 9. Hx iron deficiency - receives venofer with Dr. Gutierrez, continue PO iron. 10. Hx Hyperthyroidism - on methimazole, pt of Dr. June. DVT ppx: hx thrombocytopenia however platelets normal. start lovenox if pt no longer on eliquis This patient was seen by David Paredes PA-C under the supervison of Dr. Jeong <[place] - Last Filed: 04/11/20 20:27> History of Present Illness The patient is a 75 year old F [] Past Medical History Medical History: Medical History (Last Reviewed 01/11/20 @ 10:[address] Tom June MD) Non-STEMI (non-ST elevated myocardial infarction) (Resolved) Onset Date: 09/27/19 I21.4 Paroxysmal atrial fibrillation (Chronic) I48.0 Anemia (Chronic) D64.9 Non-rheumatic aortic stenosis (Chronic) I35.0 Chronic diastolic heart failure (Chronic) I50.32 Left carotid artery stenosis (Chronic) I65.22 Right bundle branch block (RBBB) (Chronic) I45.10 Hyperlipidemia (Chronic) E78.5 Essential (primary) hypertension (Chronic) I10 Type 2 diabetes mellitus E11.9 Anxiety F41.9 Arthritis M19.90 Asthma J45.909 Back problem M53.9 Breast lump N63.0 COPD (chronic obstructive pulmonary disease) J44.9 COPD exacerbation J44.1 Carotid artery stenosis I65.29 Carpal tunnel syndrome G56.00 Cataracts, bilateral H26.9 Depression F32.9 Fibromyalgia M79.7 Fibromyalgia M79.7 GERD (gastroesophageal reflux disease) K21.9 H/O transfusion of whole blood Z92.89 Headache R51 Hormone deficiency E34.8 Hypothyroidism E03.9 IBS (irritable bowel syndrome) K58.9 Kidney disease N28.9 MTHFR mutation E72.12 Neuropathy G62.9 Obesity E66.9 Osteoarthritis M19.90 Osteoporosis M81.0 Pneumonia J18.9 RLS (restless legs syndrome) G25.81 Skin cancer C44.90 Thyroid disease E07.9 Tuberculosis A15.9 UTI (urinary tract infection) N39.0 blood clots Acute renal failure N17.9 Atrial fibrillation with RVR I48.91 Bone fracture T14.8XXA COPD exacerbation (Resolved) J44.1 Heme positive stool R19.5 Secondary pulmonary arterial hypertension I27.21 Sepsis due to Salmonella species with acute hypoxic respiratory failure A02.1, R65.20, J96.01 Thrombocytopenia D69.6 Secondary to sepsis versus heparin-induced thrombocytopenia Acute on chronic anemia (Inactive) D64.9 Claudication I73.9 Seasonal allergies J30.2 Allergies ciprofloxacin [From Cipro] Allergy (Verified 04/11/20 13:53) Rash ciprofloxacin HCl [From Cipro] Allergy (Verified 04/11/20 13:53) Rash gabapentin [From Neurontin] Allergy (Verified 04/11/20 13:53) Rash heparin Allergy (Verified 04/11/20 13:53) Low platelets Surgical History: Surgical History (Last Reviewed 04/11/20 @ 17:54 by MANJINDER Alvarez) H/O aortic valve replacement (Chronic) Onset Date: 12/03/16 Z95.2 TAVR: 23 mm Guillaume-Sapiens S3 valve 12/03/2016 H/O: hysterectomy Z98.890, Z90.710 H/O laminectomy Z98.890 History of left heart catheterization Onset Date: 09/03/16 Z98.890 History of tympanoplasty Z98.890 Hx of melanoma excision Z98.890, Z85.820 1997 Hx of removal of cyst Z98.890 Ganglion cyst right wrist Hx of rotator cuff surgery Z98.890 JAIME S/P hip replacement Z96.649 S/p bilateral carpal tunnel release Z98.890 - *Family History Maternal Family History: Family History (Last Reviewed 04/11/20 @ 17:54 by MANJINDER Alvarez) Mother Arthritis Diabetes Hormone deficiency CVA (cerebral vascular accident) Colon cancer Cancer Sister Bleeding disorder CVA (cerebral vascular accident) Colon cancer Daughter Cancer Seizures Father Diabetes Leukemia Grandmother Diabetes Unknown Asthma Heart disease Hypertension High cholesterol Thyroid disorder Osteoporosis Cancer Tuberculosis - Physical Exam Vitals/I&O's: Vital Signs Temp Pulse Resp BP Pulse Ox 98.2 F 67 20 H 175/85 H 98 04/11/20 18:55 04/11/20 18:55 04/11/20 18:55 04/11/20 18:55 04/11/20 18:55 Oxygen Flow Rate (L/min) 15 Oxygen Delivery Method Mechanical Ventilator Weight: 87.3 kg Body Mass Index (BMI) 37.5 Finger Stick Blood Glucose 112 Laboratory Results 04/11/20 14:05: WBC 15.0 H, RBC 4.31, Hgb 11.6 L, Hct 42.6, MCV 98.8, MCH 26.9 L, MCHC 27.2 L, RDW Std Deviation 88.1 H, RDW Coeff of Jeff 24.7 H, Plt Count 437, MPV 10.6, Immature Gran % (Auto) 0.700, Neut % (Auto) 91.1 H, Lymph % (Auto) 4.9 L, [place] % (Auto) 2.5, Eos % (Auto) 0.3, Baso % (Auto) 0.5, Absolute Neuts (auto) 13.7 H, Absolute Lymphs (auto) 0.73 L, Nucleated RBC % 0, Anisocytosis 1+ 04/11/20 14:05: Troponin I < 0.015 04/11/20 14:05: B-Natriuretic Peptide 1792.5 H 04/11/20 14:05: Sodium 142, Potassium 4.6, Chloride 110 H, Carbon Dioxide 25.0, Anion Gap 7, BUN 17, Creatinine 1.08 H, Estim Creat Clear Calc 32.83, Est GFR (MDRD) Af Amer 64, Est GFR (MDRD) Non-Af 53 L, BUN/Creatinine Ratio 15.7, Glucose 136 H, Calcium 8.8, Total Bilirubin 0.60, AST 34, ALT 49, Alkaline Phosphatase 93, Total Protein 7.1, Albumin 3.2, Globulin 3.9, Albumin/Globulin Ratio 0.8 L 04/11/20 14:30: COVID-19 ([facility]) Pending 04/11/20 14:30: COVID-19 ([facility]) Pending Assessment/Plan This patient was seen in conjunction with MANJINDER Alvarez. I have independently interviewed and examined the patient and reviewed pertinent historical, laboratory, and other data. Please refer to MANJINDER Alvarez note for his patient's presentation, findings, and recommendations. I have reviewed and his note and concur with his documentation 75-year-old female with past medical history of COPD with chronic hypoxic respiratory failure, on 4 L of oxygen at home, RIKKI on CPAP, chronic diastolic CHF, history of paroxysmal atrial fibrillation, type II DM, CKD stage III who presented with progressive shortness of breath ongoing for 2 days. This was associated with lower extremity edema, orthopnea and 10 pound weight gain in 2 days. Patient denied any dietary indiscretions. She has some chest discomfort that was worse with breathing. Denied any fever or chills or cough or any sick contact. Physical Exam: Gen: Looks in some discomfort, on Bipap not pale, not jaundiced CVS:HS I +II, regular, no murmurs RESP: Diminished at mid and lower lung zones GI: BS present and normal, soft, nontender, no palpable organs EXT:No edema LABS: WBC count is 15.0, hemoglobin 11.6, platelet count 437, sodium 147, potassium 4.6, chloride 110, bicarbonate 25, BUN was 17, creatinine 1.08, LFTs were normal, BNP was 1792.5. COVID-19 testing pending ASSESSMENT: 1. Acute on chronic hypoxic respiratory failure 2. Acute on chronic diastolic CHF 3. Acute COPD exacerbation 4. Possible left lower lobe pneumonia 5. Paroxysmal atrial fibrillation, rate controlled 6. Severe aortic stenosis status post TAVR 7. Iron deficiency anemia 8. Hypothyroidism 9. Lupus anticoagulant, not on anticoagulant 10. History of ILIANA Plan: Admit to ICU, continue on BiPAP Lasix 40 mg IV every 8h Solu-Medrol 40 mg IV every 8h IV ceftriaxone/azithromycin Chest x-ray in a.m. Continue on home medications -amiodarone, atorvastatin, Cardizem Continue home insulin and also insulin sliding scale Follow-up on COVID testing Needs to follow-up with oncology in the morning to find out why patient is not on Eliquis as she says she was told to stop 2 weeks ago. CODE STATUS is DNR CCA Discussed in detail with the patient explaining the various types of CODE STATUS-full code, DNR CCA, DNR CC. She does not want to be intubated and kept on life support. She opted for DNR CCA. Time spent discussing CODE STATUS 17 minutes Inpatient E&M: 31645 Init Hosp L3 Procedures: 80831 Advncd Care Plan 30 Min
[2020-04-11 21:20] LABS: Bedside Glucose 234 mg/dL (70-110)
[2020-04-11] MEDS: Insulin Lispro 100 UNIT/ML INSULN.PEN SC (21:33)
[2020-04-11] MEDS: Ceftriaxone 1 GM/50 ML BAG IV (21:35)
[2020-04-11] MEDS: Metoprolol Tartrate 25 MG Tablet PO (21:39)
[2020-04-11] MEDS: Atorvastatin Calcium 80 MG Tablet PO (21:39)
[2020-04-11] MEDS: Pramipexole Di-HCl 1 MG Tablet PO (21:39)
[2020-04-11] MEDS: Iron Polysaccharide Complex 150 MG CAPSULE PO (21:40)
[2020-04-11] MEDS: oxyCODONE 5 MG Tablet 10 MG PO (22:00)
[2020-04-12] VITALS (32 sets, daily range): BP systolic 122–162; BP diastolic 60–82; PULSE 57–69; RESP 12–30; TEMP 36.6–37.1; O2SAT 93–100
[2020-04-12] MEDS: Ipratropium/Albuterol Sulfate 3 ML AMPUL.NEB INHALATION ×3 (04:30→19:29)
[2020-04-12] MEDS: Albuterol 2.5 MG/3 ML VIAL.NEB. INHALATION (06:55)
[2020-04-12 06:56] LABS: Base Excess 0 mmol/L (-2 to +2); PO2 68 mmHG (75-100); SO2 94 % (95-99); Total Carbon Dioxide 26 mmol/L; pCO2 38.8 mmHg (35-45); pH 7.42 (7.35-7.45)
[2020-04-12 07:22] LABS: Blood Gas Specimen Type ART; O2 Delivery Device NRB Mask
[2020-04-12] MEDS: Metoprolol Tartrate 25 MG Tablet PO ×2 (10:01→22:07)
[2020-04-12] MEDS: dilTIAZem CD 240 MG Capsule PO (10:02)
[2020-04-12] MEDS: Calcium Carb/Vitamin D 1 TABLET Tablet PO (10:02)
[2020-04-12] MEDS: Paroxetine 20 MG Tablet 40 MG PO (10:02)
[2020-04-12] MEDS: Methimazole 5 MG Tablet PO (10:02)
[2020-04-12] MEDS: Pantoprazole Sodium 20 MG Tablet PO (10:02)
[2020-04-12] MEDS: Furosemide 40 MG/4 ML Vial IV ×3 (10:02→22:09)
[2020-04-12] MEDS: Amiodarone 200 MG Tablet PO (10:09)
[2020-04-12] MEDS: Fluticasone 0.05% 1 SPRAY NASAL.SRY 2 SPRAY NASAL (10:10)
[2020-04-12] MEDS: Insulin Lispro 100 UNIT/ML INSULN.PEN SC ×4 (10:10→22:14)
[2020-04-12] MEDS: Insulin Lispro 100 UNIT/ML INSULN.PEN 10 UNIT SC ×3 (10:11→16:50)
[2020-04-12] MEDS: Iron Polysaccharide Complex 150 MG CAPSULE PO ×2 (10:17→22:06)
[2020-04-12 10:31] LABS: Bedside Glucose 214 mg/dL (70-110)
[2020-04-12] MEDS: oxyCODONE 5 MG Tablet 10 MG PO ×2 (12:14→22:07)
[2020-04-12 12:21] LABS: Bedside Glucose 240 mg/dL (70-110)
[2020-04-12 12:40] LABS: Absolute Lymphocyte Count 0.86 X10^3/uL (0.83-4.51); Absolute Neutrophil Count 12.4 X10^3/uL (2.0-7.7); Basophil# 0.03 X10^3/uL; Basophil% 0.2 % (0-1); Hematocrit 40.8 % (37-47); Hemoglobin 11.7 g/dL (12.0-15.0); Lymphocyte # 0.86 X10^3/ul (4.0); Lymphocyte % 6.2 % (19-41); Mean Corp Hgb Conc 28.7 g/dL (32-36); Mean Corpuscular Hgb 27.2 pg (27.0-32.0); Mean Corpuscular Volume 94.9 fL (81-99); Mean Platelet Vol. 10.5 fl (6.2-12.0); Monocyte# 0.47 X10^3/uL; Monocyte% 3.4 % (0-10); NRBC Flagged by Analyzer 0 % (0-5); Neutrophil # 12.42 X10^3/uL (2.7-7.7); Neutrophil % 89.7 % (47-70); POSITIVE MORPHOLOGY YES; Platelet Count 335 K/mm3 (150-450); RBC Distribution Width CV 23.9 % (11.6-14.6); RBC Distribution Width SD 82.6 fl (35.1-43.9); White Blood Count 13.9 K/mm3 (4.4-11.0)
[2020-04-12 12:41] LABS: Differential Indicated SCAN CRITERIA MET
[2020-04-12 12:56] LABS: ALB/GLOB Ratio 0.7 RATIO (0.9-2.4); AST(SGOT) 12 U/L (15-37); Alanine Aminotransfer ALT/SGPT 32 U/L (13-56); Albumin, Serum 2.6 g/dL (3.2-5.0); Alkaline Phosphatase 75 U/L (45-117); Anion Gap 9 (5-15); BUN 33 mg/dL (7-18); Calcium,Total 8.4 mg/dL (8.5-10.1); Chloride 103 mmol/L (98-107); Creatinine, Serum 1.57 mg/dL (0.55-1.02); EST Glomerular Filtration Rate 34 mL/min (>60); Est Glom Filt Rate - Afr Amer 41 mL/min (>60); Estimated Creatinine Clearance 22.58 ml/min; Globulin 3.6 g/dL (2.2-4.2); Glucose 253 mg/dL (74-106); Potassium 4.5 mmol/L (3.5-5.1); Protein, Total 6.2 g/dL (6.4-8.2); Sodium Level 140 mmol/L (136-145)
[2020-04-12 13:01] LABS: Anisocytosis 2+; Differential Comment SCANNED; Macrocytosis 1+; Microcytosis 1+
--- NOTE | 2020-04-12 13:37 | PN_ITS ---
<David Paredes - Last Filed: 04/12/20 13:37> Patient Problems: Active and Suspected Problems (Last Updated 04/12/20 @ 14:[address] Shen Ponce MD) Acute on chronic diastolic CHF (congestive heart failure) (Acute) COPD exacerbation (Acute) Acute on chronic respiratory failure with hypoxia (Acute) Reason for Visit: SOB Subjective: Significant improvement in SOB. No further chest pressure. No LE edema. No fever/chills. Nonproductive cough. Pt comfortable on baseline o2. Vitals/I&O's: Vital Signs Temp Pulse Resp BP Pulse Ox 98.7 F 64 21 H 122/82 H 98 04/12/20 09:00 04/12/20 13:00 04/12/20 13:00 04/12/20 13:00 04/12/20 13:00 Oxygen Flow Rate (L/min) 4 Oxygen Delivery Method Nasal Cannula Weight: 184 lb 15.485 oz Body Mass Index (BMI) 36.1 Finger Stick Blood Glucose 112 Intake and Output for Last 24 Hours 04/10/20 04/11/20 04/12/20 23:59 23:59 23:59 Intake Total 405 / 405 660 / 660 Output Total 1825 / 1875 600 / 600 Balance -1420 / -1470 60 / 60 General: Alert, Oriented x3, Cooperative HEENT: Atraumatic, PERRLA, EOMI, Normocephalic Neck: Supple, No JVD, Negative Carotid Bruits Lungs: Diminished, Rales Cardiovascular: Regular rate, No murmurs Abdomen: Bowel Sounds Present, Soft, Non Tender Extremities: No edema, Capillary Refill Less than 3 Seconds Skin: No rashes, No breakdown Musculoskeletal: No Tenderness to Palpation of Joints or Extremities Neurological: Cranial nerves II-XII grossly intact Psych/Mental Status: Normal Affect, Appropriate, Alert and oriented to time, place, person, mood and affect Laboratory Results 04/11/20 14:05: WBC 15.0 H, RBC 4.31, Hgb 11.6 L, Hct 42.6, MCV 98.8, MCH 26.9 L , MCHC 27.2 L, RDW Std Deviation 88.1 H, RDW Coeff of Jeff 24.7 H, Plt Count 437, MPV 10.6, Immature Gran % (Auto) 0.700, Neut % (Auto) 91.1 H, Lymph % (Auto) 4.9 L, Preston % (Auto) 2.5, Eos % (Auto) 0.3, Baso % (Auto) 0.5, Absolute Neuts (auto) 13.7 H, Absolute Lymphs (auto) 0.73 L, Nucleated RBC % 0, Anisocytosis 1+ 04/11/20 14:05: Troponin I < 0.015 04/11/20 14:05: B-Natriuretic Peptide 1792.5 H 04/11/20 14:05: Sodium 142, Potassium 4.6, Chloride 110 H, Carbon Dioxide 25.0, Anion Gap 7, BUN 17, Creatinine 1.08 H, Estim Creat Clear Calc 32.83, Est GFR (MDRD) Af Amer 64, Est GFR (MDRD) Non-Af 53 L, BUN/Creatinine Ratio 15.7, Glucose 136 H, Calcium 8.8, Total Bilirubin 0.60, AST 34, ALT 49, Alkaline Phosphatase 93, Total Protein 7.1, Albumin 3.2, Globulin 3.9, Albumin/Globulin Ratio 0.8 L 04/11/20 14:30: COVID-19 (NATY) Pending 04/11/20 14:30: COVID-19 (NATY) Pending 04/11/20 14:31: Specimen Type ART, pH 7.42, Bicarbonate Actual 25.0, POC Total CO2 26, Base Excess 0, O2 Saturation 94 L, ABG pCO2 38.8, ABG pO2 68 L, O2 Delivery Device NRB Mask, Liter Flow 15.0 04/11/20 19:54: POC Glucose 234 H 04/11/20 20:20: Troponin I < 0.015 04/11/20 23:20: Troponin I < 0.015 04/12/20 10:05: POC Glucose 214 H 04/12/20 12:17: POC Glucose 240 H 04/12/20 12:25: WBC 13.9 H, RBC 4.30, Hgb 11.7 L, Hct 40.8, MCV 94.9, MCH 27.2, MCHC 28.7 L D, RDW Std Deviation 82.6 H, RDW Coeff of Jeff 23.9 H, Plt Count 335, MPV 10.5, Immature Gran % (Auto) 0.500, Neut % (Auto) 89.7 H, Lymph % (Auto) 6.2 L, Preston % (Auto) 3.4, Eos % (Auto) 0.0, Baso % (Auto) 0.2, Absolute Neuts (auto) 12.4 H, Absolute Lymphs (auto) 0.86, Nucleated RBC % 0, Differential Comment SCANNED, Anisocytosis 2+, Microcytosis 1+, Macrocytosis 1+ 04/12/20 12:25: Sodium 140, Potassium 4.5, Chloride 103, Carbon Dioxide 28.0, Anion Gap 9, BUN 33 H, Creatinine 1.57 H, Estim Creat Clear Calc 22.58, Est GFR (MDRD) Af Amer 41 L, Est GFR (MDRD) Non-Af 34 L, BUN/Creatinine Ratio 21.0 H, Glucose 253 H, Calcium 8.4 L, Total Bilirubin 0.40, AST 12 L, ALT 32, Alkaline Phosphatase 75, Total Protein 6.2 L, Albumin 2.6 L, Globulin 3.6, Albumin/Globulin Ratio 0.7 L Current Medications Acetaminophen (Tylenol) 650 mg PO Q6H PRN PRN PRN Reason: Pain Score 1-10/Temp > 100.7 F Albuterol Sulfate (Ventolin Aerosols) 2.5 mg INHALATION Q2H PRN PRN PRN Reason: SOB/Wheezing Last Admin: 04/12/20 06:55 Dose: 2.5 mg Documented by: Albuterol/Ipratropium (Duoneb) 3 ml INHALATION Q6HWA.RT [facility] Last Admin: 04/12/20 04:30 Dose: 3 ml Documented by: Amiodarone HCl (Cordarone) 200 mg PO DAILY [facility] Last Admin: 04/12/20 10:09 Dose: 200 mg Documented by: Atorvastatin Calcium (Lipitor) 80 mg PO QHS [facility] Last Admin: 04/11/20 21:39 Dose: 80 mg Documented by: Calcium/Vitamin D (Os-Kaz 500mg + D) 1 tablet PO DAILY[facility]AN[facility] Last Admin: 04/12/20 10:02 Dose: 1 tablet Documented by: Dextrose (D50w Syringe) 0 gm IV X1 PRN; Protocol PRN Reason: Hypoglycemia Diltiazem HCl (Cardizem Cd) 240 mg PO DAILY [facility] Last Admin: 04/12/20 10:02 Dose: 240 mg Documented by: Fluticasone Propionate (Flonase Nasal [place]) 2 spray NASAL DAILY [facility] Last Admin: 04/12/20 10:10 Dose: 2 spray Documented by: Furosemide (Lasix) 40 mg IV Q8 [facility] Last Admin: 04/12/20 10:02 Dose: 40 mg Documented by: Glucagon () 1 mg IM .X1 PRN PRN Reason: Hypoglycemia Sodium Chloride () 250 mls @ 15 mls/hr IV .[id number] PRN PRN Reason: Saline Flush Last Admin: 04/11/20 21:20 Dose: 15 mls/hr Documented by: Sodium Chloride () 250 mls @ 15 mls/hr IV .[id number] PRN PRN Reason: Additional IVPB Infusion Ceftriaxone Sodium (Rocephin) 1 gm in 50 mls @ 100 mls/hr IV QHS [facility] Last Infusion: 04/11/20 22:05 Dose: Infused Documented by: Azithromycin 500 mg/ Dextrose 255 mls @ 250 mls/hr IV QHS [facility] Last Infusion: 04/11/20 23:22 Dose: Infused Documented by: Insulin Glargine (Lantus (Bkc)) 35 units SC QHS [facility] Last Admin: 04/11/20 21:34 Dose: 35 u Documented by: Insulin Human Lispro (Humalog Kwikpen (Bk)) 0 unit SC ACHS [facility]; Protocol Last Admin: 04/12/20 12:19 Dose: 2 units Documented by: Insulin Human Lispro (Humalog Kwikpen (Bk)) 10 unit SC TIDCM [facility] Last Admin: 04/12/20 12:19 Dose: 10 unit Documented by: Lactobacillus Acidophilus (Acidophilus) 1 tablet PO DAILY [facility] Last Admin: 04/12/20 10:03 Dose: 1 tablet Documented by: Methimazole (Tapazole) 5 mg PO DAILY [facility] Last Admin: 04/12/20 10:02 Dose: 5 mg Documented by: Methylprednisolone (Solu-Medrol) 40 mg IV Q8 [facility] Last Admin: 04/12/20 10:02 Dose: 40 mg Documented by: Metoprolol Tartrate (Lopressor (Beta Isabel)) 25 mg PO BID [facility] Last Admin: 04/12/20 10:01 Dose: 25 mg Documented by: Nitroglycerin (Nitrostat) 0.4 mg SUBLINGUAL Q5M PRN PRN Reason: CARDIAC/CHEST PAIN Oxycodone HCl (Oxyir) 10 mg PO TID PRN PRN Reason: Pain Score 1-10/10 Last Admin: 04/12/20 12:14 Dose: 10 mg Documented by: Pantoprazole Sodium (Protonix) 20 mg PO DAILY [facility] Last Admin: 04/12/20 10:02 Dose: 20 mg Documented by: Paroxetine HCl (Paxil) 40 mg PO DAILY [facility] Last Admin: 04/12/20 10:02 Dose: 40 mg Documented by: Polysaccharide Iron Complex (Ferrex 150) 150 mg PO BID [facility] Last Admin: 04/12/20 10:17 Dose: 150 mg Documented by: Potassium Chloride (K-Dur) 20 meq PO DAILY[facility] Last Admin: 04/12/20 10:04 Dose: 20 meq Documented by: Pramipexole Dihydrochloride (Mirapex) 1 mg PO QHS [facility] Last Admin: 04/11/20 21:39 Dose: 1 mg Documented by: Sodium Chloride () 10 - 40 ml IV UD PRN PRN Reason: SALINE FLUSH Zolpidem Tartrate (Ambien (Generic)) 5 mg PO QHS [facility] Vital Signs/Narrative: Vital Signs Pulse Resp BP BP Pulse Ox 04/12/20 13:00 64 21 H 122/82 H 98 04/12/20 12:00 63 04/12/20 11:37 99 04/12/20 11:00 65 20 H 139/60 H 97 04/12/20 10:01 64 142/69 H 04/12/20 10:00 64 17 142/69 H 95 Medical Necessity - Tobacco Use Smoking Status: Former smoker Tobacco Use: Non-smoker Assessment/Plan All Active Problems (Last Updated 04/12/20 @ 14:[address] Shen Ponce MD) Acute on chronic diastolic CHF (congestive heart failure) (Acute) COPD exacerbation (Acute) Acute on chronic respiratory failure with hypoxia (Acute) 1. Acute on chronic hypoxic respiratory failure 2/2 diastolic CHF exacerbation and COPD exacerbation - continue bipap qhs and with naps. continue IV lasix. taper steroids. continue aerosols. hypoxia resolved, at baseline o2. tx to PCU. With leukocytosis and questionable infiltrate will continue empiric abx. low suspicion for covid, pcr pending. 2. pAfib - rate stable. cardizem, toprol, amiodarone 3. RIKKI - compliant with cpap qhs, bipap while here 4. Hx , Aortic valve replacement for : TAVR 5. DMt2 with obesity - SSI, TID insulin, lantus 6. Hx lupus anticoagulant, MTHFR, pt of Dr. Gutierrez, formerly on coumadin, eliquis. taken off by oncology recently for unclear reasons 7. HTN - improved. continue current meds. 8. CKDIII - bump, recheck in AM. 9. Hx iron deficiency - receives venofer with Dr. Gutierrez, continue PO iron. 10. Hx Hyperthyroidism - on methimazole, pt of Dr. June. DVT ppx: SCDs. hx HIT. This patient was seen by David Paredes PA-C under the supervison of Dr. Ponce. <Shen Ponce E - Last Filed: 04/12/20 14:35> Vitals/I&O's: Vital Signs Temp Pulse Resp BP Pulse Ox 98.7 F 65 16 122/82 H 94 04/12/20 09:00 04/12/20 13:50 04/12/20 13:50 04/12/20 13:00 04/12/20 14:04 Oxygen Flow Rate (L/min) 4 Oxygen Delivery Method Nasal Cannula Weight: 184 lb 15.485 oz Body Mass Index (BMI) 36.1 Finger Stick Blood Glucose 112 Intake and Output for Last 24 Hours 04/10/20 04/11/20 04/12/20 23:59 23:59 23:59 Intake Total 405 / 405 660 / 660 Output Total 1825 / 1875 600 / 600 Balance -1420 / -1470 60 / 60 Laboratory Results 04/11/20 14:05: Anisocytosis 1+ 04/11/20 14:05: Troponin I < 0.015 04/11/20 14:05: B-Natriuretic Peptide 1792.5 H 04/11/20 14:05: Sodium 142, Potassium 4.6, Chloride 110 H, Carbon Dioxide 25.0, Anion Gap 7, BUN 17, Creatinine 1.08 H, Estim Creat Clear Calc 32.83, Est GFR (MDRD) Af Amer 64, Est GFR (MDRD) Non-Af 53 L, BUN/Creatinine Ratio 15.7, Glucose 136 H, Calcium 8.8, Total Bilirubin 0.60, AST 34, ALT 49, Alkaline Phosphatase 93, Total Protein 7.1, Albumin 3.2, Globulin 3.9, Albumin/Globulin Ratio 0.8 L 04/11/20 14:30: COVID-19 (NATY) Pending 04/11/20 14:30: COVID-19 (NATY) Pending 04/11/20 14:31: Specimen Type ART, pH 7.42, Bicarbonate Actual 25.0, POC Total CO2 26, Base Excess 0, O2 Saturation 94 L, ABG pCO2 38.8, ABG pO2 68 L, O2 Delivery Device NRB Mask, Liter Flow 15.0 04/11/20 19:54: POC Glucose 234 H 04/11/20 20:20: Troponin I < 0.015 04/11/20 23:20: Troponin I < 0.015 04/12/20 10:05: POC Glucose 214 H 04/12/20 12:17: POC Glucose 240 H 04/12/20 12:25: WBC 13.9 H, RBC 4.30, Hgb 11.7 L, Hct 40.8, MCV 94.9, MCH 27.2, MCHC 28.7 L D, RDW Std Deviation 82.6 H, RDW Coeff of Jeff 23.9 H, Plt Count 335, MPV 10.5, Immature Gran % (Auto) 0.500, Neut % (Auto) 89.7 H, Lymph % (Auto) 6.2 L, Preston % (Auto) 3.4, Eos % (Auto) 0.0, Baso % (Auto) 0.2, Absolute Neuts (auto) 12.4 H, Absolute Lymphs (auto) 0.86, Nucleated RBC % 0, Differential Comment SCANNED, Anisocytosis 2+, Microcytosis 1+, Macrocytosis 1+ 04/12/20 12:25: Sodium 140, Potassium 4.5, Chloride 103, Carbon Dioxide 28.0, Anion Gap 9, BUN 33 H, Creatinine 1.57 H, Estim Creat Clear Calc 22.58, Est GFR (MDRD) Af Amer 41 L, Est GFR (MDRD) Non-Af 34 L, BUN/Creatinine Ratio 21.0 H, Glucose 253 H, Calcium 8.4 L, Total Bilirubin 0.40, AST 12 L, ALT 32, Alkaline Phosphatase 75, Total Protein 6.2 L, Albumin 2.6 L, Globulin 3.6, Albumin/Globulin Ratio 0.7 L Current Medications Acetaminophen (Tylenol) 650 mg PO Q6H PRN PRN PRN Reason: Pain Score 1-10/Temp > 100.7 F Albuterol Sulfate (Ventolin Aerosols) 2.5 mg INHALATION Q2H PRN PRN PRN Reason: SOB/Wheezing Last Admin: 04/12/20 06:55 Dose: 2.5 mg Documented by: Albuterol/Ipratropium (Duoneb) 3 ml INHALATION Q6HWA.RT [facility] Last Admin: 04/12/20 13:49 Dose: 3 ml Documented by: Amiodarone HCl (Cordarone) 200 mg PO DAILY [facility] Last Admin: 04/12/20 10:09 Dose: 200 mg Documented by: Atorvastatin Calcium (Lipitor) 80 mg PO QHS [facility] Last Admin: 04/11/20 21:39 Dose: 80 mg Documented by: Calcium/Vitamin D (Os-Kaz 500mg + D) 1 tablet PO DAILY[facility] Last Admin: 04/12/20 10:02 Dose: 1 tablet Documented by: Dextrose (D50w Syringe) 0 gm IV X1 PRN; Protocol PRN Reason: Hypoglycemia Diltiazem HCl (Cardizem Cd) 240 mg PO DAILY [facility] Last Admin: 04/12/20 10:02 Dose: 240 mg Documented by: Fluticasone Propionate (Flonase Nasal [place]) 2 spray NASAL DAILY [facility] Last Admin: 04/12/20 10:10 Dose: 2 spray Documented by: Furosemide (Lasix) 40 mg IV Q8 [facility] Last Admin: 04/12/20 14:09 Dose: 40 mg Documented by: Glucagon () 1 mg IM .X1 PRN PRN Reason: Hypoglycemia Sodium Chloride () 250 mls @ 15 mls/hr IV .[id number] PRN PRN Reason: Saline Flush Last Admin: 04/11/20 21:20 Dose: 15 mls/hr Documented by: Sodium Chloride () 250 mls @ 15 mls/hr IV .[id number] PRN PRN Reason: Additional IVPB Infusion Ceftriaxone Sodium (Rocephin) 1 gm in 50 mls @ 100 mls/hr IV QHS [facility] Last Infusion: 04/11/20 22:05 Dose: Infused Documented by: Azithromycin 500 mg/ Dextrose 255 mls @ 250 mls/hr IV QHS [facility] Last Infusion: 04/11/20 23:22 Dose: Infused Documented by: Insulin Glargine (Lantus (Bkc)) 35 units SC QHS [facility] Last Admin: 04/11/20 21:34 Dose: 35 u Documented by: Insulin Human Lispro (Humalog Kwikpen (Bkc)) 0 unit SC ACHS [facility]; Protocol Last Admin: 04/12/20 12:19 Dose: 2 units Documented by: Insulin Human Lispro (Humalog Kwikpen (Bkc)) 10 unit SC TIDCM [facility] Last Admin: 04/12/20 12:19 Dose: 10 unit Documented by: Lactobacillus Acidophilus (Acidophilus) 1 tablet PO DAILY [facility] Last Admin: 04/12/20 10:03 Dose: 1 tablet Documented by: Methimazole (Tapazole) 5 mg PO DAILY [facility] Last Admin: 04/12/20 10:02 Dose: 5 mg Documented by: Methylprednisolone (Solu-Medrol) 40 mg IV Q8 [facility] Last Admin: 04/12/20 14:09 Dose: 40 mg Documented by: Metoprolol Tartrate (Lopressor (Beta Isabel)) 25 mg PO BID [facility] Last Admin: 04/12/20 10:01 Dose: 25 mg Documented by: Nitroglycerin (Nitrostat) 0.4 mg SUBLINGUAL Q5M PRN PRN Reason: CARDIAC/CHEST PAIN Oxycodone HCl (Oxyir) 10 mg PO TID PRN PRN Reason: Pain Score 1-10/10 Last Admin: 04/12/20 12:14 Dose: 10 mg Documented by: Pantoprazole Sodium (Protonix) 20 mg PO DAILY [facility] Last Admin: 04/12/20 10:02 Dose: 20 mg Documented by: Paroxetine HCl (Paxil) 40 mg PO DAILY [facility] Last Admin: 04/12/20 10:02 Dose: 40 mg Documented by: Polysaccharide Iron Complex (Ferrex 150) 150 mg PO BID [facility] Last Admin: 04/12/20 10:17 Dose: 150 mg Documented by: Potassium Chloride (K-Dur) 20 meq PO DAILY[facility] Last Admin: 04/12/20 10:04 Dose: 20 meq Documented by: Pramipexole Dihydrochloride (Mirapex) 1 mg PO QHS [facility] Last Admin: 04/11/20 21:39 Dose: 1 mg Documented by: Sodium Chloride () 10 - 40 ml IV UD PRN PRN Reason: SALINE FLUSH Zolpidem Tartrate (Ambien (Generic)) 5 mg PO QHS [facility] Vital Signs/Narrative: Vital Signs Pulse Resp BP Pulse Ox 04/12/20 14:04 94 04/12/20 14:01 93 04/12/20 13:50 65 16 96 04/12/20 13:00 64 21 H 122/82 H 98 04/12/20 12:00 63 04/12/20 11:37 99 04/12/20 11:00 65 20 H 139/60 H 97 Assessment/Plan Hospitalist note: I am seeing this patient in conjunction with David Paredes. I independently seen and examined the patient. Progress note above, laboratory data and imaging studies reviewed and I concur with above treatment plan. Today, patient reported improvement in shortness of breath, denied any more chest pressure or tightness. Denied chest pain. Reported mild dry cough, no sputum production. Denied fever chills. She has been afebrile, blood pressure and heart rate are stable, pulse ox is 98% on 4 L. - Physical Exam General: Alert, Oriented x3, Cooperative, mildly short of breath. HEENT: Atraumatic, PERRLA, EOMI. Neck: Supple, No JVD, Negative Carotid Bruits, Trachea Midline, Thyroid Normal. Lungs: Decreased breath sounds bilateral, bilateral basilar faint crackles, occasional wheezes. Mild shortness of breath. Cardiovascular: Regular rate, Regular Rhythm, Normal S1, Normal S2, PMI Normal. Abdomen: Bowel Sounds Present, Soft, Non Tender, Non-Distended, No Hepato- splenomegaly. Extremities: No clubbing, No cyanosis, No edema Skin: No rashes, No breakdown Neurological: Cranial nerves are intact, neuro grossly intact Vital Signs are stable. Assessment and plan: #1 acute on chronic hypoxic respiratory failure: Multifactorial secondary to acute on chronic CHF, COPD exacerbation and probable pneumonia. Patient is on IV Rocephin and Zithromax, IV diuresis and IV steroids as well as bronchodilators. Today, patient felt better, she is down to 4 L of oxygen. Blood cultures pending. COVID-19 PCR is pending. plan to continue same treatment, transfer to PCU. #2 acute on chronic diastolic CHF: She is on IV Lasix and metoprolol. BNP was elevated, troponin was negative. She had 2D echocardiogram back on September, that revealed ejection fraction of 65%, moderately enlarged left atrium, RVSP of 29. Plan to continue same treatment, repeat BMP tomorrow morning. #3 acute COPD exacerbation: She is on IV steroids, IV antibiotics and bronchodilators. Symptoms started to improve. She is on IV Rocephin and Zithromax because of probable pneumonia as well. Plan to continue same treatment. #4 other chronic medical problems: Continue current medications as above. This note was generated with [employer] dictation software. It may contain incorrect words, spelling, and punctuation that were not noted in checking the note before signing. Inpatient E&M: 77598 Subs Hosp L2
[2020-04-12 17:06] LABS: Bedside Glucose 167 mg/dL (70-110)
[2020-04-12] MEDS: Pramipexole Di-HCl 1 MG Tablet PO (22:07)
[2020-04-12] MEDS: Atorvastatin Calcium 80 MG Tablet PO (22:07)
[2020-04-12] MEDS: Ceftriaxone 1 GM/50 ML BAG IV (22:17)
[2020-04-12 23:01] LABS: Bedside Glucose 251 mg/dL (70-110)
[2020-04-12] MEDS: Zolpidem Tartrate 5 MG Tablet PO (23:12)
[2020-04-13] VITALS (15 sets, daily range): BP systolic 154–163; BP diastolic 67–88; PULSE 62–74; RESP 12–24; TEMP 36.6–37.2; O2SAT 94–97
[2020-04-13] MEDS: 0.9% Saline Lock 10 ML Syringe IV ×2 (06:30→22:29)
[2020-04-13] MEDS: Furosemide 40 MG/4 ML Vial IV (06:30)
[2020-04-13 06:38] LABS: Absolute Lymphocyte Count 0.57 X10^3/uL (0.83-4.51); Basophil# 0.03 X10^3/uL; Basophil% 0.2 % (0-1); Hematocrit 37.6 % (37-47); Hemoglobin 10.6 g/dL (12.0-15.0); Lymphocyte # 0.57 X10^3/ul (4.0); Lymphocyte % 3.1 % (19-41); Mean Corp Hgb Conc 28.2 g/dL (32-36); Mean Corpuscular Volume 95.7 fL (81-99); Mean Platelet Vol. 11.6 fl (6.2-12.0); Monocyte# 0.43 X10^3/uL; Monocyte% 2.4 % (0-10); NRBC Flagged by Analyzer 0 % (0-5); Neutrophil # 16.97 X10^3/uL (2.7-7.7); Neutrophil % 93.3 % (47-70); POSITIVE DIFFERENTIAL YES; POSITIVE MORPHOLOGY YES; Platelet Count 346 K/mm3 (150-450); RBC Distribution Width CV 23.9 % (11.6-14.6); RBC Distribution Width SD 82.5 fl (35.1-43.9); Red Blood Count 3.93 M/mm3 (4.2-5.4); White Blood Count 18.2 K/mm3 (4.4-11.0)
[2020-04-13 06:50] LABS: Differential Indicated SCAN CRITERIA MET
[2020-04-13 07:10] LABS: Anion Gap 12 (5-15); BUN 34 mg/dL (7-18); BUN/Creat Ratio 16.7 RATIO (10-20); Calcium,Total 6.6 mg/dL (8.5-10.1); Chloride 104 mmol/L (98-107); Creatinine, Serum 2.03 mg/dL (0.55-1.02); EST Glomerular Filtration Rate 25 mL/min (>60); Est Glom Filt Rate - Afr Amer 31 mL/min (>60); Estimated Creatinine Clearance 17.46 ml/min; Glucose 180 mg/dL (74-106); Potassium 5.5 mmol/L (3.5-5.1); Sodium Level 134 mmol/L (136-145)
[2020-04-13] MEDS: Ipratropium/Albuterol Sulfate 3 ML AMPUL.NEB INHALATION ×3 (07:25→19:13)
[2020-04-13 07:46] LABS: Anisocytosis 2+; Differential Comment SCANNED; Macrocytosis 1+; Microcytosis 1+
[2020-04-13] MEDS: Insulin Lispro 100 UNIT/ML INSULN.PEN SC ×4 (09:06→21:36)
[2020-04-13] MEDS: Insulin Lispro 100 UNIT/ML INSULN.PEN 10 UNIT SC ×3 (09:06→16:49)
[2020-04-13] MEDS: Fluticasone 0.05% 1 SPRAY NASAL.SRY 2 SPRAY NASAL (09:07)
[2020-04-13] MEDS: Iron Polysaccharide Complex 150 MG CAPSULE PO ×2 (09:08→21:35)
[2020-04-13] MEDS: Calcium Carb/Vitamin D 1 TABLET Tablet PO (09:08)
[2020-04-13] MEDS: dilTIAZem CD 240 MG Capsule PO (09:08)
[2020-04-13] MEDS: Amiodarone 200 MG Tablet PO (09:08)
[2020-04-13] MEDS: Metoprolol Tartrate 25 MG Tablet PO ×2 (09:08→21:35)
[2020-04-13] MEDS: Methimazole 5 MG Tablet PO (09:09)
[2020-04-13] MEDS: Pantoprazole Sodium 20 MG Tablet PO (09:09)
[2020-04-13] MEDS: Paroxetine 20 MG Tablet 40 MG PO (09:09)
[2020-04-13] MEDS: Sodium Polystyrene Sulfonate 15 GM/60 ML UDC PO (09:12)
[2020-04-13 09:51] LABS: Bedside Glucose 288 mg/dL (70-110)
--- NOTE | 2020-04-13 11:31 | PN_ITS ---
<David Paredes - Last Filed: 04/13/20 11:31> Patient Problems: Active and Suspected Problems (Last Updated 04/12/20 @ 14:[address] Shen Ponce MD) Acute on chronic diastolic CHF (congestive heart failure) (Acute) COPD exacerbation (Acute) Acute on chronic respiratory failure with hypoxia (Acute) Reason for Visit: SOB Subjective: ongoing SOB with exertion. No SOB at rest while on basal o2. No fever/chills. No cough. LE edema resolved. No palpitations or CP. Vitals/I&O's: Vital Signs Temp Pulse Resp BP Pulse Ox 98.9 F 74 18 154/83 H 95 04/13/20 04:31 04/13/20 09:08 04/13/20 07:26 04/13/20 04:31 04/13/20 04:31 Oxygen Flow Rate (L/min) 4 Oxygen Delivery Method Nasal Cannula Weight: 184 lb 15.485 oz Body Mass Index (BMI) 36.1 Finger Stick Blood Glucose 112 Intake and Output for Last 24 Hours 04/11/20 04/12/20 04/13/20 23:59 23:59 23:59 Intake Total 405 / 405 1320 / 1470 405 / 405 Output Total 1825 / 1875 750 / 1075 625 / 625 Balance -1420 / -1470 570 / 395 -220 / -220 General: Alert, Oriented x3, Cooperative HEENT: Atraumatic, PERRLA, EOMI, Normocephalic Neck: Supple, No JVD, Negative Carotid Bruits Lungs: Clear to auscultation, Diminished Cardiovascular: Regular rate, No murmurs Abdomen: Bowel Sounds Present, Soft, Non Tender Extremities: No edema, Capillary Refill Less than 3 Seconds Skin: No rashes, No breakdown Musculoskeletal: No Tenderness to Palpation of Joints or Extremities Neurological: Cranial nerves II-XII grossly intact Psych/Mental Status: Normal Affect, Appropriate, Alert and oriented to time, place, person, mood and affect Laboratory Results 04/12/20 12:17: POC Glucose 240 H 04/12/20 12:25: WBC 13.9 H, RBC 4.30, Hgb 11.7 L, Hct 40.8, MCV 94.9, MCH 27.2, MCHC 28.7 L D, RDW Std Deviation 82.6 H, RDW Coeff of Jeff 23.9 H, Plt Count 335, MPV 10.5, Immature Gran % (Auto) 0.500, Neut % (Auto) 89.7 H, Lymph % (Auto) 6.2 L, [place] % (Auto) 3.4, Eos % (Auto) 0.0, Baso % (Auto) 0.2, Absolute Neuts (auto) 12.4 H, Absolute Lymphs (auto) 0.86, Nucleated RBC % 0, Differential Comment SCANNED, Anisocytosis 2+, Microcytosis 1+, Macrocytosis 1+ 04/12/20 12:25: Sodium 140, Potassium 4.5, Chloride 103, Carbon Dioxide 28.0, Anion Gap 9, BUN 33 H, Creatinine 1.57 H, Estim Creat Clear Calc 22.58, Est GFR (MDRD) Af Amer 41 L, Est GFR (MDRD) Non-Af 34 L, BUN/Creatinine Ratio 21.0 H, Glucose 253 H, Calcium 8.4 L, Total Bilirubin 0.40, AST 12 L, ALT 32, Alkaline Phosphatase 75, Total Protein 6.2 L, Albumin 2.6 L, Globulin 3.6, Albumin/Globulin Ratio 0.7 L 04/12/20 16:48: POC Glucose 167 H 04/12/20 22:04: POC Glucose 251 H 04/13/20 05:51: WBC 18.2 H, RBC 3.93 L, Hgb 10.6 L, Hct 37.6, MCV 95.7, MCH 27.0, MCHC 28.2 L, RDW Std Deviation 82.5 H, RDW Coeff of Jeff 23.9 H, Plt Count 346, MPV 11.6, Immature Gran % (Auto) 1.000 H, Neut % (Auto) 93.3 H, Lymph % (Auto) 3.1 L, [place] % (Auto) 2.4, Eos % (Auto) 0.0, Baso % (Auto) 0.2, Absolute Neuts (auto) 17.0 H, Absolute Lymphs (auto) 0.57 L, Nucleated RBC % 0, Diff erential Comment SCANNED, Anisocytosis 2+, Microcytosis 1+, Macrocytosis 1+ 04/13/20 05:51: Sodium 134 L, Potassium 5.5 H, Chloride 104, Carbon Dioxide 18.0 L, Anion Gap 12, BUN 34 H, Creatinine 2.03 H, Estim Creat Clear Calc 17.46, Est GFR (MDRD) Af Amer 31 L, Est GFR (MDRD) Non-Af 25 L, BUN/Creatinine Ratio 16.7, Glucose 180 H, Calcium 6.6 L 04/13/20 09:05: POC Glucose 288 H Current Medications Acetaminophen (Tylenol) 650 mg PO Q6H PRN PRN PRN Reason: Pain Score 1-10/Temp > 100.7 F Albuterol Sulfate (Ventolin Aerosols) 2.5 mg INHALATION Q2H PRN PRN PRN Reason: SOB/Wheezing Last Admin: 04/12/20 06:55 Dose: 2.5 mg Documented by: Albuterol/Ipratropium (Duoneb) 3 ml INHALATION Q6HWA.RT [facility] Last Admin: 04/13/20 07:25 Dose: 3 ml Documented by: Amiodarone HCl (Cordarone) 200 mg PO DAILY [facility] Last Admin: 04/13/20 09:08 Dose: 200 mg Documented by: Atorvastatin Calcium (Lipitor) 80 mg PO QHS [facility] Last Admin: 04/12/20 22:07 Dose: 80 mg Documented by: Calcium/Vitamin D (Os-Kaz 500mg + D) [facility] Last Admin: 04/13/20 09:08 Dose: 1 tablet Documented by: Dextrose (D50w Syringe) 0 gm IV X1 PRN; Protocol PRN Reason: Hypoglycemia Diltiazem HCl (Cardizem Cd) 240 mg PO DAILY [facility] Last Admin: 04/13/20 09:08 Dose: 240 mg Documented by: Fluticasone Propionate (Flonase Nasal [place]) 2 spray NASAL DAILY [facility] Last Admin: 04/13/20 09:07 Dose: 2 spray Documented by: Furosemide (Lasix) 40 mg PO BID@1000,1800 [facility] Last Admin: 04/13/20 09:11 Dose: Not Given Documented by: Glucagon () 1 mg IM .X1 PRN PRN Reason: Hypoglycemia Sodium Chloride () 250 mls @ 15 mls/hr IV .[id number] PRN PRN Reason: Saline Flush Last Infusion: 04/12/20 14:30 Dose: Infused Documented by: Sodium Chloride () 250 mls @ 15 mls/hr IV .[id number] PRN PRN Reason: Additional IVPB Infusion Ceftriaxone Sodium (Rocephin) 1 gm in 50 mls @ 100 mls/hr IV QHS [facility] Last Infusion: 04/12/20 23:10 Dose: Infused Documented by: Azithromycin 500 mg/ Dextrose 255 mls @ 250 mls/hr IV QHS [facility] Last Infusion: 04/13/20 00:30 Dose: Infused Documented by: Insulin Glargine (Lantus (Bk)) 35 units SC QHS [facility] Last Admin: 04/12/20 22:15 Dose: 35 u Documented by: Insulin Human Lispro (Humalog Kwikpen ([facility])) 0 unit SC ACHS [facility]; Protocol Last Admin: 04/13/20 09:06 Dose: 2 units Documented by: Insulin Human Lispro (Humalog Kwikpen ([facility])) 10 unit SC TIDCM [facility] Last Admin: 04/13/20 09:06 Dose: 10 unit Documented by: Lactobacillus Acidophilus (Acidophilus) 1 tablet PO DAILY [facility] Last Admin: 04/12/20 10:03 Dose: 1 tablet Documented by: Methimazole (Tapazole) 5 mg PO DAILY [facility] Last Admin: 04/13/20 09:09 Dose: 5 mg Documented by: Metoprolol Tartrate (Lopressor (Beta Isabel)) 25 mg PO BID [facility] Last Admin: 04/13/20 09:08 Dose: 25 mg Documented by: Nitroglycerin (Nitrostat) 0.4 mg SUBLINGUAL Q5M PRN PRN Reason: CARDIAC/CHEST PAIN Oxycodone HCl (Oxyir) 10 mg PO TID PRN PRN Reason: Pain Score 1-10/10 Last Admin: 04/12/20 22:07 Dose: 10 mg Documented by: Pantoprazole Sodium (Protonix) 20 mg PO DAILY [facility] Last Admin: 04/13/20 09:09 Dose: 20 mg Documented by: Paroxetine HCl (Paxil) 40 mg PO DAILY [facility] Last Admin: 04/13/20 09:09 Dose: 40 mg Documented by: Polysaccharide Iron Complex (Ferrex 150) 150 mg PO BID [facility] Last Admin: 04/13/20 09:08 Dose: 150 mg Documented by: Pramipexole Dihydrochloride (Mirapex) 1 mg PO QHS [facility] Last Admin: 04/12/20 22:07 Dose: 1 mg Documented by: Prednisone () 40 mg PO DAILY@0800 [facility] Sodium Chloride () 10 - 40 ml IV UD PRN PRN Reason: SALINE FLUSH Last Admin: 04/13/20 06:30 Dose: 10 ml Documented by: Zolpidem Tartrate (Ambien (Generic)) 5 mg PO QHS [facility] Last Admin: 04/12/20 23:12 Dose: 5 mg Documented by: STROKE Vital Signs/Narrative: Vital Signs Pulse 04/13/20 09:08 74 Medical Necessity - Tobacco Use Smoking Status: Former smoker Tobacco Use: Non-smoker Assessment/Plan All Active Problems (Last Updated 04/12/20 @ 14:[address] Shen Ponce MD) Acute on chronic diastolic CHF (congestive heart failure) (Acute) COPD exacerbation (Acute) Acute on chronic respiratory failure with hypoxia (Acute) 1. Acute on chronic hypoxic respiratory failure 2/2 diastolic CHF exacerbation and COPD exacerbation - continue bipap qhs and with naps. Lasix and steroids to PO. Kayex x1 for hyperkalemia. Recheck in AM. 2. pAfib - rate stable. cardizem, toprol, amiodarone 3. RIKKI - compliant with cpap qhs, bipap while here 4. Hx , Aortic valve replacement for : TAVR 5. DMt2 with obesity - SSI, TID insulin, lantus 6. Hx lupus anticoagulant, MTHFR, pt of Dr. Gutierrez, formerly on coumadin, eliquis. taken off by oncology for venofer infusions per the pt, but she is unsure when to resume. She is supposed to call oncology in the AM to confirm. 7. HTN - improved. continue current meds. 8. CKDIII - bump, recheck in AM. 9. Hx iron deficiency - receives venofer with Dr. Gutierrez, continue PO iron. 10. Hx Hyperthyroidism - on methimazole, pt of Dr. June. DVT ppx: SCDs. hx HIT. DC planning: walking pulse ox in the AM, recheck BMP in AM. This patient was seen by David Paredes PA-C under the supervison of Dr. Ponce. <Shen Ponce - Last Filed: 04/13/20 12:09> Vitals/I&O's: Vital Signs Temp Pulse Resp BP Pulse Ox 98.9 F 74 18 154/83 H 95 04/13/20 04:31 04/13/20 09:08 04/13/20 07:26 04/13/20 04:31 04/13/20 04:31 Oxygen Flow Rate (L/min) 4 Oxygen Delivery Method Nasal Cannula Weight: 184 lb 15.485 oz Body Mass Index (BMI) 36.1 Finger Stick Blood Glucose 112 Intake and Output for Last 24 Hours 04/11/20 04/12/20 04/13/20 23:59 23:59 23:59 Intake Total 405 / 405 1320 / 1470 405 / 405 Output Total 1825 / 1875 750 / 1075 625 / 625 Balance -1420 / -1470 570 / 395 -220 / -220 Laboratory Results 04/12/20 12:17: POC Glucose 240 H 04/12/20 12:25: WBC 13.9 H, RBC 4.30, Hgb 11.7 L, Hct 40.8, MCV 94.9, MCH 27.2, MCHC 28.7 L D, RDW Std Deviation 82.6 H, RDW Coeff of Jeff 23.9 H, Plt Count 335, MPV 10.5, Immature Gran % (Auto) 0.500, Neut % (Auto) 89.7 H, Lymph % (Auto) 6.2 L, [place] % (Auto) 3.4, Eos % (Auto) 0.0, Baso % (Auto) 0.2, Absolute Neuts (auto) 12.4 H, Absolute Lymphs (auto) 0.86, Nucleated RBC % 0, Differential Comment SCANNED, Anisocytosis 2+, Microcytosis 1+, Macrocytosis 1+ 04/12/20 12:25: Sodium 140, Potassium 4.5, Chloride 103, Carbon Dioxide 28.0, Anion Gap 9, BUN 33 H, Creatinine 1.57 H, Estim Creat Clear Calc 22.58, Est GFR (MDRD) Af Amer 41 L, Est GFR (MDRD) Non-Af 34 L, BUN/Creatinine Ratio 21.0 H, G lucose 253 H, Calcium 8.4 L, Total Bilirubin 0.40, AST 12 L, ALT 32, Alkaline Phosphatase 75, Total Protein 6.2 L, Albumin 2.6 L, Globulin 3.6, Albumin/Globulin Ratio 0.7 L 06/27/20 16:48: POC Glucose 167 H 04/12/20 22:04: POC Glucose 251 H 04/13/20 05:51: WBC 18.2 H, RBC 3.93 L, Hgb 10.6 L, Hct 37.6, MCV 95.7, MCH 27.0, MCHC 28.2 L, RDW Std Deviation 82.5 H, RDW Coeff of Jeff 23.9 H, Plt Count 346, MPV 11.6, Immature Gran % (Auto) 1.000 H, Neut % (Auto) 93.3 H, Lymph % ( Auto) 3.1 L, [place] % (Auto) 2.4, Eos % (Auto) 0.0, Baso % (Auto) 0.2, Absolute Neuts (auto) 17.0 H, Absolute Lymphs (auto) 0.57 L, Nucleated RBC % 0, Differential Comment SCANNED, Anisocytosis 2+, Microcytosis 1+, Macrocytosis 1+ 04/13/20 05:51: Sodium 134 L, Potassium 5.5 H, Chloride 104, Carbon Dioxide 18.0 L, Anion Gap 12, BUN 34 H, Creatinine 2.03 H, Estim Creat Clear Calc 17.46, Est GFR (MDRD) Af Amer 31 L, Est GFR (MDRD) Non-Af 25 L, BUN/Creatinine Ratio 16.7, Glucose 180 H, Calcium 6.6 L 04/13/20 09:05: POC Glucose 288 H Current Medications Acetaminophen (Tylenol) 650 mg PO Q6H PRN PRN PRN Reason: Pain Score 1-10/Temp > 100.7 F Albuterol Sulfate (Ventolin Aerosols) 2.5 mg INHALATION Q2H PRN PRN PRN Reason: SOB/Wheezing Last Admin: 04/12/20 06:55 Dose: 2.5 mg Documented by: Albuterol/Ipratropium (Duoneb) 3 ml INHALATION Q6HWA.RT [facility] Last Admin: 04/13/20 07:25 Dose: 3 ml Documented by: Amiodarone HCl (Cordarone) 200 mg PO DAILY [facility] Last Admin: 04/13/20 09:08 Dose: 200 mg Documented by: Atorvastatin Calcium (Lipitor) 80 mg PO QHS [facility] Last Admin: 04/12/20 22:07 Dose: 80 mg Documented by: Calcium/Vitamin D (Os-Kaz 500mg + D) 1 tablet PO DAILYCM [facility] Last Admin: 04/13/20 09:08 Dose: 1 tablet Documented by: Dextrose (D50w Syringe) 0 gm IV X1 PRN; Protocol PRN Reason: Hypoglycemia Diltiazem HCl (Cardizem Cd) 240 mg PO DAILY [facility] Last Admin: 04/13/20 09:08 Dose: 240 mg Documented by: Fluticasone Propionate (Flonase Nasal [place]) 2 spray NASAL DAILY [facility] Last Admin: 04/13/20 09:07 Dose: 2 spray Documented by: Furosemide (Lasix) 40 mg PO BID@1000,1800 [facility] Last Admin: 04/13/20 09:11 Dose: Not Given Documented by: Glucagon () 1 mg IM .X1 PRN PRN Reason: Hypoglycemia Sodium Chloride () 250 mls @ 15 mls/hr IV .[id number] PRN PRN Reason: Saline Flush Last Infusion: 04/12/20 14:30 Dose: Infused Documented by: Sodium Chloride () 250 mls @ 15 mls/hr IV .[id number] PRN PRN Reason: Additional IVPB Infusion Ceftriaxone Sodium (Rocephin) 1 gm in 50 mls @ 100 mls/hr IV QHS [facility] Last Infusion: 04/12/20 23:10 Dose: Infused Documented by: Azithromycin 500 mg/ Dextrose 255 mls @ 250 mls/hr IV QHS [facility] Last Infusion: 04/13/20 00:30 Dose: Infused Documented by: Insulin Glargine (Lantus (Bkc)) 35 units SC QHS [facility] Last Admin: 04/12/20 22:15 Dose: 35 u Documented by: Insulin Human Lispro (Humalog Kwikpen ([facility])) 0 unit SC ACHS [facility]; Protocol Last Admin: 04/13/20 09:06 Dose: 2 units Documented by: Insulin Human Lispro (Humalog Kwikpen ([facility])) 10 unit SC TIDCM [facility] Last Admin: 04/13/20 09:06 Dose: 10 unit Documented by: Lactobacillus Acidophilus (Acidophilus) 1 tablet PO DAILY [facility] Last Admin: 04/12/20 10:03 Dose: 1 tablet Documented by: Methimazole (Tapazole) 5 mg PO DAILY [facility] Last Admin: 04/13/20 09:09 Dose: 5 mg Documented by: Metoprolol Tartrate (Lopressor (Beta Isabel)) 25 mg PO BID [facility] Last Admin: 04/13/20 09:08 Dose: 25 mg Documented by: Nitroglycerin (Nitrostat) 0.4 mg SUBLINGUAL Q5M PRN PRN Reason: CARDIAC/CHEST PAIN Oxycodone HCl (Oxyir) 10 mg PO TID PRN PRN Reason: Pain Score 1-10/10 Last Admin: 04/12/20 22:07 Dose: 10 mg Documented by: Pantoprazole Sodium (Protonix) 20 mg PO DAILY [facility] Last Admin: 04/13/20 09:09 Dose: 20 mg Documented by: Paroxetine HCl (Paxil) 40 mg PO DAILY [facility] Last Admin: 04/13/20 09:09 Dose: 40 mg Documented by: Polysaccharide Iron Complex (Ferrex 150) 150 mg PO BID [facility] Last Admin: 04/13/20 09:08 Dose: 150 mg Documented by: Pramipexole Dihydrochloride (Mirapex) 1 mg PO QHS [facility] Last Admin: 04/12/20 22:07 Dose: 1 mg Documented by: Prednisone () 40 mg PO DAILY@0800 [facility] Sodium Chloride () 10 - 40 ml IV UD PRN PRN Reason: SALINE FLUSH Last Admin: 04/13/20 06:30 Dose: 10 ml Documented by: Zolpidem Tartrate (Ambien (Generic)) 5 mg PO QHS [facility] Last Admin: 04/12/20 23:12 Dose: 5 mg Documented by: STROKE Vital Signs/Narrative: Vital Signs Pulse 04/13/20 09:08 74 Assessment/Plan Hospitalist note: I am seeing this patient in conjunction with David Paredes. I independently seen and examined the patient. Progress note above, laboratory data and imaging studies reviewed and I concur with above treatment plan. Shortness of breath continued to improve slowly, remained on 4 L of oxygen. Still having some shortness of breath with exertion. Denied cough or sputum production. Denied chest pain or dizziness. Her vital signs are stable. - Physical Exam General: Alert, Oriented x3, Cooperative, mildly short of breath. HEENT: Atraumatic, PERRLA, EOMI. Neck: Supple, No JVD, Negative Carotid Bruits, Trachea Midline, Thyroid Normal. Lungs: Decreased breath sounds bilateral, bilateral basilar faint crackles, occasional wheezes. Mild shortness of breath. Cardiovascular: Regular rate, Regular Rhythm, Normal S1, Normal S2, PMI Normal. Abdomen: Bowel Sounds Present, Soft, Non Tender, Non-Distended, No Hepato- splenomegaly. Extremities: No clubbing, No cyanosis, No edema Skin: No rashes, No breakdown Neurological: Cranial nerves are intact, neuro grossly intact Vital Signs are stable. Assessment and plan: #1 acute on chronic hypoxic respiratory failure: Multifactorial secondary to acute on chronic CHF, COPD exacerbation and probable pneumonia. Remained on IV Rocephin and Zithromax, IV diuresis and IV steroids as well as bronchodilators. She is on 4 L of oxygen which is her baseline at home. She has been afebrile, WBC is trending up because of IV steroids. Blood cultures pending. COVID-19 PCR is pending. plan to continue same treatment. #2 acute on chronic diastolic CHF: She is on IV Lasix and metoprolol. This potassium is 5.5, has been going up. She was ordered for 1 dose of Kayexalate. BNP was elevated, troponin was negative. She had 2D echocardiogram back on September, that revealed ejection fraction of 65%, moderately enlarged left atrium, RVSP of 29. Plan to continue same treatment, repeat BMP tomorrow morning. #3 acute COPD exacerbation: She is on IV steroids, IV antibiotics and bronchodilators. Symptoms continue to improve slowly. She is on IV Rocephin and Zithromax because of probable pneumonia as well. Plan to DC IV Solu-Medrol, start p.o. prednisone, continue other treatments. #4 other chronic medical problems: Continue current medications as above. This note was generated with Nanol[employer] software. It may contain incorrect words, spelling, and punctuation that were not noted in checking the note before signing. Inpatient E&M: 49846 Subs Hosp L2
[2020-04-13] MEDS: oxyCODONE 5 MG Tablet 10 MG PO (12:30)
[2020-04-13] MEDS: predniSONE 20 MG Tablet 40 MG PO (12:30)
[2020-04-13 12:50] LABS: Bedside Glucose 254 mg/dL (70-110)
[2020-04-13] MEDS: Furosemide 40 MG Tablet PO (16:49)
[2020-04-13 17:00] LABS: Bedside Glucose 314 mg/dL (70-110)
[2020-04-13] MEDS: Pramipexole Di-HCl 1 MG Tablet PO (21:35)
[2020-04-13] MEDS: Atorvastatin Calcium 80 MG Tablet PO (21:35)
[2020-04-13] MEDS: Zolpidem Tartrate 5 MG Tablet PO (21:35)
[2020-04-13 21:50] LABS: Bedside Glucose 329 mg/dL (70-110)
[2020-04-13] MEDS: Ceftriaxone 1 GM/50 ML BAG IV (22:26)
[2020-04-14] VITALS (9 sets, daily range): BP systolic 159–163; BP diastolic 83–84; PULSE 57–65; RESP 12–19; TEMP 36.7–36.9; O2SAT 96–99
[2020-04-14 06:23] LABS: Anion Gap 8 (5-15); BUN 57 mg/dL (7-18); BUN/Creat Ratio 36.8 RATIO (10-20); Calcium,Total 8.3 mg/dL (8.5-10.1); Chloride 97 mmol/L (98-107); Creatinine, Serum 1.55 mg/dL (0.55-1.02); EST Glomerular Filtration Rate 35 mL/min (>60); Est Glom Filt Rate - Afr Amer 42 mL/min (>60); Estimated Creatinine Clearance 22.87 ml/min; Glucose 307 mg/dL (74-106); Potassium 4.3 mmol/L (3.5-5.1); Sodium Level 134 mmol/L (136-145)
[2020-04-14] MEDS: Ipratropium/Albuterol Sulfate 3 ML AMPUL.NEB INHALATION (07:00)
[2020-04-14] MEDS: Insulin Lispro 100 UNIT/ML INSULN.PEN SC (08:06)
[2020-04-14] MEDS: Insulin Lispro 100 UNIT/ML INSULN.PEN 10 UNIT SC (08:06)
[2020-04-14] MEDS: Calcium Carb/Vitamin D 1 TABLET Tablet PO (08:08)
[2020-04-14] MEDS: predniSONE 20 MG Tablet 40 MG PO (08:08)
[2020-04-14] MEDS: dilTIAZem CD 240 MG Capsule PO (08:22)
[2020-04-14] MEDS: Metoprolol Tartrate 25 MG Tablet PO (08:22)
[2020-04-14] MEDS: Amiodarone 200 MG Tablet PO (08:22)
[2020-04-14] MEDS: Furosemide 40 MG Tablet PO (08:22)
[2020-04-14] MEDS: Pantoprazole Sodium 20 MG Tablet PO (08:23)
[2020-04-14] MEDS: Methimazole 5 MG Tablet PO (08:23)
[2020-04-14] MEDS: Iron Polysaccharide Complex 150 MG CAPSULE PO (08:23)
[2020-04-14] MEDS: Paroxetine 20 MG Tablet 40 MG PO (08:23)
[2020-04-14] MEDS: Fluticasone 0.05% 1 SPRAY NASAL.SRY 2 SPRAY NASAL (08:24)
[2020-04-14 09:11] LABS: Bedside Glucose 238 mg/dL (70-110)
--- NOTE | 2020-04-14 10:08 | CASEMGMT ---
Social Work Note Per assistant manager of operations questions, pt has completed HCPOA and LW, haven't provided copies to [facility] and unable to bring in copies. Mague Mueller FIRE TECHNOLOGY INSTRUCTOR, PSYCHIATRIC ORDERLY
--- NOTE | 2020-04-14 10:45 | CASEMGMT ---
RN CM Assessment Note Intro role of CM to patient in room. COVID-19 testing negative, and per Hospitalist, this admission is related to her CHF/COPD. Patient states she feels close to baseline and does not require any further services at home. Her [facility] Seed Sorter will be contacting her for a visit tomorrow. Patient is declining any further home health care. Pt states she has everything I need at home except could use BSC. Script faxed to [facility]. Presentation: shortness of breath, increased LE edema, orthopnea and weight gain of 10# Diagnosis: CHF, COPD exacerbation, possible LLL pneumonia PCP: YOLIS Leon Specialists: Dr. Killian, cardiology; Dr. Gutierrez, Hematology; Dr. De Los Santos, GI in [facility] Insurance: [employer] [facility] Preferred [facility]acy: [facility] Benefit: yes LNOK: DaughterTsering Living Arrangements: Lives in Senior Apart[address], ground level, 1 small step in with ramp. States she does own daily care and family can assist if needed. Tranportation: uses her scooter or family provides transportation DME: scooter, walker, glucometer, grab bars, cane. Pt would like BSC. Script faxed to [facility], her preferred DME. Oxygen through [employer] [facility]. Has portability and nebulizer HHC: [facility] past. Discussed home health care for PT/OT at home and pt declines, stating she is close to baseline, has had HHC in past and knows what to do for safety @ home. SNF: none per pt. Patient DC Goals: Home today. Has family to pick her up and assist with getting prescriptions if [facility] can't deliver. DC Plan: Home. CM available for discharge planning coordination. Contact CM for any concerns/needs that may arise. Clarice PAL RN ACM
--- NOTE | 2020-04-14 11:03 | PCM.DC ---
- Discharge Diagnoses Current Active Problems: Current Active and Chronic Problems (Last Updated 04/12/20 @ 14:[address] Shen Ponce MD) Acute on chronic diastolic CHF (congestive heart failure) (Acute) COPD exacerbation (Acute) COPD (chronic obstructive pulmonary disease) (Chronic) Acute on chronic respiratory failure with hypoxia (Acute) You will use the following diet at home:: Calorie/Carbohydrate Controlled (specify 1200, 1400, etc) - 1800 sonja/day, Cardiac Your food should be the consistency of: Regular Your liquids should be the consistency of: Regular/Thin Discharge Activity: Return to Normal Activity Allergies/Adverse Reactions: Allergies ciprofloxacin [From Cipro] Allergy (Verified 04/11/20 13:53) Rash ciprofloxacin HCl [From Cipro] Allergy (Verified 04/11/20 13:53) Rash gabapentin [From Neurontin] Allergy (Verified 04/11/20 13:53) Rash heparin Allergy (Verified 04/11/20 13:53) Low platelets Medications to take at Discharge Albuterol Aerosols [Ventolin Aerosols] 2.5 mg INHALATION Q4H PRN PRN 09/26/19 Albuterol IH (ProAir) [Proair Hfa] 2 puff INHALATION Q6H PRN PRN 09/26/19 Cyanocobalamin (Vitamin B-12) [Vitamin B-12] 1,000 mcg PO DAILY 09/26/19 Diltiazem CD [Cardizem CD] 240 mg PO DAILY 09/26/19 Fluticasone 0.05% [Flonase Nasal [place]] 2 spray NASAL DAILY 09/26/19 Fluticasone/Salmeterol [Advair Hfa 115-21 Mcg Inhaler] 2 puff INHALATION BID 09/26/19 Insulin Aspart [Novolog Flexpen] 10 units SUBCUT TIDCM 09/26/19 Iron Polysaccharide Complex [Ferrex 150] 150 mg PO BID 09/26/19 L.acidoph,Paracasei, B.lactis [Probiotic] 1 ea PO DAILY 09/26/19 Metoprolol Succinate [Toprol Xl] 25 mg PO BID 09/26/19 Nystatin [Nyamyc] 30 gm TP BID 09/26/19 Omeprazole 20 mg PO DAILY 09/26/19 Paroxetine HCl [Paxil] 40 mg PO DAILY 09/26/19 Potassium Chloride [Klor-Con 10] 20 meq PO DAILY 09/26/19 Roflumilast [Daliresp] 500 mcg PO DAILY 09/26/19 Ropinirole HCl 2 mg PO QHS 09/26/19 Suvorexant [Belsomra] 20 mg PO QHS 09/26/19 Tiotropium [place] [Spiriva] 18 mcg IH DAILY 09/26/19 Atorvastatin Calcium [Lipitor] 80 mg PO QHS #30 tab 09/29/19 Oxycodone HCl/Acetaminophen [Percocet 10-325 mg Tablet] 1 tab PO TID PRN 09/30/19 insulin detemir U-100 100 unit/mL subcutaneous solution 35 unit SC QHS ml 10/12/19 nitroglycerin 0.4 mg sublingual tablet 0.4 mg SUBLINGUAL PRN PRN #25 tab 10/24/19 amiodarone 200 mg tablet 200 mg PO DAILY #30 tab 11/02/19 furosemide 40 mg tablet 40 mg PO DAILY 11/02/19 calcium carbonate 500 mg (1,250 mg)-vitamin D3 200 unit tablet 1 tab PO DAILY tab 01/11/20 methimazole 5 mg tablet 5 mg PO DAILY tab 01/11/20 Cefdinir [Omnicef [equiv]] 300 mg PO Q12H #6 cap 04/14/20 Prednisone See Taper PO DAILY #26 tab 04/14/20 The following prescriptions were given: Cefdinir [Omnicef [equiv]] 300 mg PO Q12H #6 cap Transmission Status: Pending to [facility] [id number] Prednisone See Taper PO DAILY #26 tab Prescription Printed Primary Care Physician: Yesenia Leon, CHRISTIAN-C [Primary Care Provider] - Please follow up with your Primary Care Physician in: 1-2 weeks Test Results: Test results from this visit will be discussed in further detail at your follow-up appointment, if applicable. Please Follow Up With: Pee Gutierrez DO When: 1-2 weeks Please Follow Up With: Moose Killian MD When: 3-4 weeks Proposed Discharge Date: 04/14/20
--- NOTE | 2020-04-14 14:35 | PCM.DC.SUM ---
Discharge Date and Diagnosis - Problem List Patient Problems: Active and Suspected Problems (Last Updated 04/12/20 @ 14:[address] Shen Ponce MD) Acute on chronic diastolic CHF (congestive heart failure) (Acute) Date of Admission: 04/11/20 Date of Discharge: 04/14/20 - Primary Discharge Diagnosis Acute Problems: Active Problems (Last Updated 04/12/20 @ 14:[address] Shen Ponce MD) Acute hypoxic respiratory failure secondary to acute on chronic diastolic CHF and acute COPD exacerbation - Secondary Discharge Diagnosis Chronic Problems: Chronic Problems (Last Updated 04/12/20 @ 14:[address] Shen Pnoce MD) Diabetes (Chronic) Toxic multinodular goiter (Chronic) Polyneuropathy due to type 2 diabetes mellitus (Chronic) COPD (chronic obstructive pulmonary disease) (Chronic) Paroxysmal atrial fibrillation (Chronic) Anemia (Chronic) Non-rheumatic aortic stenosis (Chronic) H/O aortic valve replacement (Chronic 12/03/16) TAVR: 23 mm Guillaume-Sapiens S3 valve 12/03/2016 Chronic diastolic heart failure (Chronic) Left carotid artery stenosis (Chronic) Right bundle branch block (RBBB) (Chronic) Hyperlipidemia (Chronic) Essential (primary) hypertension (Chronic) Hospital Course and Treatment Imaging Results: RAD/Chest 1 View (Portable) IMPRESSION: Diffuse interstitial prominence. Probable mild congestion and interstitial edema. Atelectasis or infiltrate in both lung bases worse on the left. Moderate cardiomegaly. Operations: None Procedures: None Summary of Care Provided: Hospital Course: The patient is a 75 year old F with past medical history as above notably chronic hypoxic respiratory failure secondary to chronic diastolic CHF and COPD, who presented to the emergency room with complaints of increasing shortness of breath. The patient had noticed that she had been up 10 pounds from her baseline weight over the past 2 days and had increased lower extremity edema as well as orthopnea. She denied new fevers, chills, or cough. Her chest x-ray showed diffuse interstitial prominence, probable mild congestion and interstitial edema, atelectasis or infiltrate in both lung bases, no fever, did have leukocytosis of 15,000. Initially she was stable in the ER on her home 4 L of oxygen however declined in the ER requiring stat BiPAP initiation. She was stable on BiPAP overnight. She was felt to have exacerbation of her underlying diastolic congestive heart failure, component of COPD exacerbation, and possible underlying infectious process. COVID-19 test was sent out and is pending. She was placed on azithromycin, Rocephin, IV steroids, and IV Lasix. She was admitted to the COVID unit. The patient had significant diuresis the first night and was able to be weaned back to her baseline oxygen by the following day. She continued to have significant exertional dyspnea and was kept in the hospital overnight further. She developed some hyperkalemia which was corrected with a low dose of Kayexalate. On the day of discharge the patient's electrolytes had normalized, she remained stable on her home oxygen, and reported full resolution of her dyspnea. She was transitioned to PO lasix, oral prednisone, and will finish a 5 days course of abx for possible underlying infection. The patient was discharged home in stable condition. Follow up with PCP in 1-2 weeks, with her oncologist in 1-2 week, and with her sociology adjunct instructor in 3-4 weeks This patient was seen by David Paredes PA-C under the supervision of Dr. Glez. [] Patient Problems: Active and Suspected Problems (Last Updated 04/12/20 @ 14:[address] Shen Ponce MD) Acute on chronic diastolic CHF (congestive heart failure) (Acute) - Physical Exam Vitals/I&O's: Vital Signs Temp Pulse Resp BP Pulse Ox 98.4 F 65 18 163/83 H 97 04/14/20 11:04 04/14/20 11:04 04/14/20 11:04 04/14/20 11:04 04/14/20 11:04 Oxygen Flow Rate (L/min) 4 Oxygen Delivery Method Nasal Cannula Weight: 184 lb 11.958 oz Body Mass Index (BMI) 36.1 Finger Stick Blood Glucose 112 Intake and Output for Last 24 Hours 04/12/20 04/13/20 04/14/20 23:59 23:59 23:59 Intake Total 1320 / 1470 1700 / 1700 195 / 195 Output Total 750 / 1075 2375 / 2375 2100 / 2100 Balance 570 / 395 -675 / -675 -1905 / -1905 General: Alert, Oriented x3, Cooperative HEENT: Atraumatic, PERRLA, EOMI, Normocephalic Neck: Supple, No JVD, Negative Carotid Bruits Lungs: Clear to auscultation, Diminished Cardiovascular: Regular rate, No murmurs Abdomen: Bowel Sounds Present, Soft, Non Tender, Obese Extremities: No edema, Capillary Refill Less than 3 Seconds Skin: No rashes, No breakdown Musculoskeletal: No Tenderness to Palpation of Joints or Extremities Neurological: Cranial nerves II-XII grossly intact Psych/Mental Status: Normal Affect, Appropriate Microbiology Past 72 Hours 04/11/20 15:20 Blood Culture (Wb) #2 - No Site/Description Given Blood Culture - Preliminary No growth in 48 hours. 04/11/20 14:05 Blood Culture (Wb) - Right Hand Blood Culture - Preliminary No growth in 48 hours. Laboratory Results 04/11/20 14:30: COVID-19 (NAT[facility]) Not Detected 04/11/20 14:30: COVID-19 ([facility]) Results on MP report 04/13/20 16:39: POC Glucose 314 H 04/13/20 21:23: POC Glucose 329 H 04/14/20 05:18: Sodium 134 L, Potassium 4.3, Chloride 97 L, Carbon Dioxide 29.0, Anion Gap 8, BUN 57 H, Creatinine 1.55 H, Estim Creat Clear Calc 22.87, Est GFR (MDRD) Af Amer 42 L, Est GFR (MDRD) Non-Af 35 L, BUN/Creatinine Ratio 36.8 H, Glucose 307 H, Calcium 8.3 L 04/14/20 08:04: POC Glucose 238 H Discharge Diet: Low fat/ Low Cholesterol, 1800 Calorie Control Diet, 2000 mg Sodium Diet Discharge Activity: Return to Normal Activity Home Medications: Medications to take at Discharge Albuterol Aerosols [Ventolin Aerosols] 2.5 mg INHALATION Q4H PRN PRN 09/26/19 Albuterol IH (ProAir) [Proair Hfa] 2 puff INHALATION Q6H PRN PRN 09/26/19 Cyanocobalamin (Vitamin B-12) [Vitamin B-12] 1,000 mcg PO DAILY 09/26/19 Diltiazem CD [Cardizem CD] 240 mg PO DAILY 09/26/19 Fluticasone 0.05% [Flonase Nasal [place]] 2 spray NASAL DAILY 09/26/19 Fluticasone/Salmeterol [Advair Hfa 115-21 Mcg Inhaler] 2 puff INHALATION BID 09/26/19 Insulin Aspart [Novolog Flexpen] 10 units SUBCUT TIDCM 09/26/19 Iron Polysaccharide Complex [Ferrex 150] 150 mg PO BID 09/26/19 L.acidoph,Paracasei, B.lactis [Probiotic] 1 ea PO DAILY 09/26/19 Metoprolol Succinate [Toprol Xl] 25 mg PO BID 09/26/19 Nystatin [Nyamyc] 30 gm TP BID 09/26/19 Omeprazole 20 mg PO DAILY 09/26/19 Paroxetine HCl [Paxil] 40 mg PO DAILY 09/26/19 Potassium Chloride [Klor-Con 10] 20 meq PO DAILY 09/26/19 Roflumilast [Daliresp] 500 mcg PO DAILY 09/26/19 Ropinirole HCl 2 mg PO QHS 09/26/19 Suvorexant [Belsomra] 20 mg PO QHS 09/26/19 Tiotropium [place] [Spiriva] 18 mcg IH DAILY 09/26/19 Atorvastatin Calcium [Lipitor] 80 mg PO QHS #30 tab 09/29/19 Oxycodone HCl/Acetaminophen [Percocet 10-325 mg Tablet] 1 tab PO TID PRN 09/30/19 insulin detemir U-100 100 unit/mL subcutaneous solution 35 unit SC QHS ml 10/12/19 nitroglycerin 0.4 mg sublingual tablet 0.4 mg SUBLINGUAL PRN PRN #25 tab 10/24/19 amiodarone 200 mg tablet 200 mg PO DAILY #30 tab 11/02/19 furosemide 40 mg tablet 40 mg PO DAILY 11/02/19 calcium carbonate 500 mg (1,250 mg)-vitamin D3 200 unit tablet 1 tab PO DAILY tab 01/11/20 methimazole 5 mg tablet 5 mg PO DAILY tab 01/11/20 Cefdinir [Omnicef [equiv]] 300 mg PO Q12H #6 cap 04/14/20 Prednisone See Taper PO DAILY #26 tab 04/14/20 Following Prescrptions Were Given to Patient: Cefdinir [Omnicef [equiv]] 300 mg PO Q12H #6 cap Transmission Status: Received by [facility] - [id number] Prednisone See Taper PO DAILY #26 tab Prescription Printed Primary Care Physician: Yesenia Leon, CHRISTIAN-C [Primary Care Provider] - Please follow up with your Primary Care Physician in: 1-2 weeks Please Follow Up With: Pee Gutierrez DO When: 1-2 weeks Please Follow Up With: Moose Killian MD When: 3-4 weeks Disposition: Home Minutes spent on discharge:: 35 Patient Condition:: Stable Medical Necessity - Tobacco Use Smoking Status: Former smoker Tobacco Use: Non-smoker Meaningful Use Info Meaningful Use Diagnoses (Choose all that apply): CHF - CHF PRISCILA/ARB ordered at discharge?: No Reason PRISCILA/ARB not ordered?: Worsening renal disease Documented LVEF (%): 65
== END 2020-04-14 11:40 | disposition home or self-care (01) | DRG 291 ==
LOC: ED 16:25 → ICU 17:44 → MS2 04-12 14:25
PROVIDERS: Hospitalist; Physician Assistant; Admitting Provider Internal Medicine; Emergency Provider Emergency Medicine; PCP Nurse Practitioner; Visit Provider Internal Medicine
DX: I13.0 Hypertensive heart and chronic kidney disease with heart failure and stage 1 through stage 4 chronic kidney disease, or unspecified chronic kidney disease (principal); J96.21 Acute and chronic respiratory failure with hypoxia; I50.33 Acute on chronic diastolic (congestive) heart failure; J18.9 Pneumonia, unspecified organism; J44.1 Chronic obstructive pulmonary disease with (acute) exacerbation; D68.62 Lupus anticoagulant syndrome; I48.20 Chronic atrial fibrillation, unspecified; J44.0 Chronic obstructive pulmonary disease with (acute) lower respiratory infection; J98.11 Atelectasis; E11.22 Type 2 diabetes mellitus with diabetic chronic kidney disease; N18.3 Chronic kidney disease, stage 3 (moderate); I48.0 Paroxysmal atrial fibrillation; E11.51 Type 2 diabetes mellitus with diabetic peripheral angiopathy without gangrene; Z79.4 Long term (current) use of insulin; Z95.2 Presence of prosthetic heart valve; I25.2 Old myocardial infarction; I35.0 Nonrheumatic aortic (valve) stenosis; E78.2 Mixed hyperlipidemia; I45.10 Unspecified right bundle-branch block; G47.33 Obstructive sleep apnea (adult) (pediatric); E03.9 Hypothyroidism, unspecified; D50.9 Iron deficiency anemia, unspecified; E66.9 Obesity, unspecified; Z68.37 Body mass index [BMI] 37.0-37.9, adult; E87.5 Hyperkalemia; Z79.51 Long term (current) use of inhaled steroids; E05.20 Thyrotoxicosis with toxic multinodular goiter without thyrotoxic crisis or storm; E83.42 Hypomagnesemia; I65.22 Occlusion and stenosis of left carotid artery; Z80.0 Family history of malignant neoplasm of digestive organs; Z80.6 Family history of leukemia; Z82.3 Family history of stroke; Z82.49 Family history of ischemic heart disease and other diseases of the circulatory system; Z82.5 Family history of asthma and other chronic lower respiratory diseases; Z82.62 Family history of osteoporosis; Z83.2 Family history of diseases of the blood and blood-forming organs and certain disorders involving the immune mechanism; Z83.3 Family history of diabetes mellitus; Z85.820 Personal history of malignant melanoma of skin; Z86.718 Personal history of other venous thrombosis and embolism; Z87.891 Personal history of nicotine dependence; Z90.710 Acquired absence of both cervix and uterus; Z96.641 Presence of right artificial hip joint
CPT/HCPCS: 36415; 36600; 71045; 80048; 80053; 82803; 82962; 83880; 84484; 85025; 87040; 87635; 93005; 94002; 94003; 94640; 97110; 97116; 97162; 97166; 97530; 97535; 99251; 99285; G2023; J7050; A4216; G0463; J1940; U0003

== ENCOUNTER → 2020-04-16 14:05 | Outpatient (CLI) | payer MEDICARE, MEDICAID, SELFPAY ==
[2020-04-11 19:30] VITALS: BMI 36.1
[2020-04-16 14:56] LABS: Anion Gap 6 (5-15); BUN 38 mg/dL (7-18); BUN/Creat Ratio 23.6 RATIO (10-20); Calcium,Total 7.6 mg/dL (8.5-10.1); Chloride 102 mmol/L (98-107); Creatinine, Serum 1.61 mg/dL (0.55-1.02); EST Glomerular Filtration Rate 33 mL/min (>60); Est Glom Filt Rate - Afr Amer 40 mL/min (>60); Glucose 464 mg/dL (74-106); Potassium 3.9 mmol/L (3.5-5.1); Sodium Level 138 mmol/L (136-145)
[2020-04-16 15:11] LABS: Protein, Urine (Random) 31.2 mg/dL (<11.9); Protein:Creat Ratio 1362 mg/g CRE (0-200)
[2020-04-17 12:13] LABS: Free T3 1.7 pg/mL (2.18-3.98)
== END ==
PROVIDERS: PCP Nurse Practitioner; Referring Provider Internal Medicine Nephrology; Visit Provider Internal Medicine Nephrology
DX: E11.9 Type 2 diabetes mellitus without complications (principal); N18.3 Chronic kidney disease, stage 3 (moderate); E05.90 Thyrotoxicosis, unspecified without thyrotoxic crisis or storm; I48.0 Paroxysmal atrial fibrillation
CPT/HCPCS: 36415; 80048; 82570; 84156; 84439; 84443; 84481

== ENCOUNTER → 2020-05-05 13:43 | Outpatient (CLI) | payer MEDICARE, MEDICAID, SELFPAY ==
[2020-05-05 13:44] VITALS: BMI 38.5
[2020-05-05 15:28] LABS: BNP,B-Type NATRIURETIC PEPTIDE 184.2 pg/mL (0-100)
[2020-05-05 15:31] LABS: Anion Gap 5 (5-15); BUN 55 mg/dL (7-18); BUN/Creat Ratio 29.4 RATIO (10-20); Chloride 101 mmol/L (98-107); Creatinine, Serum 1.87 mg/dL (0.55-1.02); EST Glomerular Filtration Rate 28 mL/min (>60); Est Glom Filt Rate - Afr Amer 34 mL/min (>60); Glucose 124 mg/dL (74-106); Potassium 3.8 mmol/L (3.5-5.1); Sodium Level 142 mmol/L (136-145)
== END ==
PROVIDERS: PCP Nurse Practitioner; Referring Provider Physician Assistant Medical; Visit Provider Physician Assistant Medical
DX: I11.0 Hypertensive heart disease with heart failure (principal); I50.33 Acute on chronic diastolic (congestive) heart failure; I48.0 Paroxysmal atrial fibrillation; R06.00 Dyspnea, unspecified
CPT/HCPCS: 36415; 80048; 83880

== ENCOUNTER → 2020-05-13 11:44 | Outpatient (CLI) | payer MEDICARE, MEDICAID, SELFPAY ==
[2020-05-05 13:44] VITALS: BMI 38.5
[2020-05-13 12:12] LABS: Anion Gap 4 (5-15); BUN 26 mg/dL (7-18); BUN/Creat Ratio 18.1 RATIO (10-20); Calcium,Total 7.8 mg/dL (8.5-10.1); Chloride 106 mmol/L (98-107); Creatinine, Serum 1.44 mg/dL (0.55-1.02); EST Glomerular Filtration Rate 38 mL/min (>60); Est Glom Filt Rate - Afr Amer 46 mL/min (>60); Glucose 254 mg/dL (74-106); Potassium 3.3 mmol/L (3.5-5.1); Sodium Level 140 mmol/L (136-145)
== END ==
PROVIDERS: PCP Nurse Practitioner; Referring Provider Physician Assistant Medical; Visit Provider Physician Assistant Medical
DX: I35.0 Nonrheumatic aortic (valve) stenosis (principal)
CPT/HCPCS: 36415; 80048

== ENCOUNTER → 2020-06-04 10:14 | Outpatient (CLI) | payer MEDICARE, MEDICAID, SELFPAY ==
[2020-05-27 13:17] VITALS: BMI 38.5
[2020-06-04 11:18] LABS: Anion Gap 6 (5-15); BUN 38 mg/dL (7-18); BUN/Creat Ratio 23.8 RATIO (10-20); Calcium,Total 8.4 mg/dL (8.5-10.1); Chloride 106 mmol/L (98-107); EST Glomerular Filtration Rate 34 mL/min (>60); Est Glom Filt Rate - Afr Amer 41 mL/min (>60); Free T3 2.7 pg/mL (2.18-3.98); Glucose 101 mg/dL (74-106); Potassium 3.9 mmol/L (3.5-5.1); Sodium Level 143 mmol/L (136-145); T4 Free Direct 0.55 ng/dL (0.76-1.46)
== END ==
PROVIDERS: PCP Nurse Practitioner; Referring Provider Physician Assistant Medical; Visit Provider Physician Assistant Medical
DX: E05.20 Thyrotoxicosis with toxic multinodular goiter without thyrotoxic crisis or storm (principal); I50.33 Acute on chronic diastolic (congestive) heart failure
CPT/HCPCS: 36415; 80048; 84439; 84481

== ENCOUNTER → 2020-07-01 12:36 | Outpatient (CLI) | payer MEDICARE, MEDICAID, SELFPAY ==
[2020-05-27 13:17] VITALS: BMI 38.5
--- NOTE | 2020-07-01 12:38 | BI_ITS ---
MAMMOGRAPHY - BILATERAL SCREENING REASON FOR EXAM: Female, 75 years old. Routine annual screening examination. PERTINENT HISTORY: Non-contributory. Remote right excisional breast biopsy. TECHNIQUE: Digital bilateral breast ross (3D mammographic acquisition) in the CC and MLO projections. 2-D mediolateral oblique (MLO) and craniocaudad (CC) views of both breasts were obtained. CAD: Full Field Digital Mammography with Computer Added Detection was performed. COMPARISON: Comparison is made with prior study dated 09/11/2018 and 04/05/2017. FINDINGS: Breast Composition: There are scattered areas of fibroglandular density. There are no dominant masses or suspicious calcifications. Stable benign-appearing bilateral axillary lymph nodes. Stable 7 mm x 5 mm well-defined nodule in the upper lateral portion of the left breast. No other significant abnormalities are identified. There has been no significant change since the prior study. BI/SCREEN MAMM (CAD) W/ROSS BILAT IMPRESSION: Stable bilateral screening mammogram. Yearly follow-up mammogram recommended. (A) ASSESSMENT CATEGORY: BIRADS Category 2: Benign. A letter regarding these results will be sent to the patient by the facility within 30 days. Approximately 10% of breast cancers are not detected by mammography. A normal mammogram should not delay biopsy of a clinically suspicious abnormality. [id number] Electronically Signed: Nimesh Rogers, at 13:49 EDT , Service support ,
--- NOTE | 2020-07-01 13:02 | BD_ITS ---
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 COMPARISON: None. FINDINGS: Lumbar Spine (L1-L4): g/cm2 (0.747) / T-score (-3.5) / Z-score (-1.7) Findings are suggestive of osteoporosis with a high fracture risk. Left Femur Total: g/cm2 (0.854) / T-score (-1.2) / Z-score (0.5) Left Femoral Neck: g/cm2 (0.725) / T-score (-2.3) / Z-score (-0.4) BD/Dexa Bone Density Study IMPRESSION: The patient is considered osteoporotic as outlined below according to World [place] Organization (WHO) criteria with a high fracture risk. Reference Information: The T-score is the number of standard deviations above or below the standard which is normal for young adults at their peak bone mineral density. The World Health Organization (WHO) interprets the T-scores as follows: Above -1 Normal bone density Between -1 and -2.5 Osteopenia Equal to / or below -2.5 Osteoporosis As a practical clinical guideline, osteopenia may be graded as follows: Mild -1 through -1.5 Moderate -1.6 through -2.0 Severe -2.1 through -2.4 The Z-score is the number of standard deviations above or below age-matched controls. A Z-score of less than -1.5 would be considered abnormal. References: 1. NIH Osteoporosis and Related Bone Diseases http://www.osteo.org 2. International Society for Clinical Densitometry http://www.iscd.org 3. National Osteoporosis Foundation http://www.nof.org Electronically Signed: Nimesh Rogers, at 15:31 EDT , Service support ,
--- NOTE | 2020-07-01 13:22 | CT_ITS ---
STUDY: LOW DOSE CT LUNG CANCER SCREENING REASON FOR EXAM: Female, 75 years old. TOBACCO USE, 1-1.5 PPD X 50 YRS, QUIT 4 YRS AGO RADIATION DOSAGE (If Supplied By Facility): CTDIvol = ( 3.02 ) mGy, DLP = ( 95.91 ) mGycm TECHNIQUE: No contrast was administered. Low dose technique was utilized (average mAS-38 and kVp 120). 1.25 mm axial source images with a slice interval of 1.25-mm were reconstructed in lung windows. 2.5 mm axial source images with a slice interval of 2.5-mm were reconstructed in lung windows. 5.0 mm axial source images with a slice interval of 5.0-mm were reconstructed in soft tissue windows. Nodule measured using lung windows on PACS and/or independent workstation with automated measurement of minimum and maximum diameter. Nodule measurement reported as average diameter rounded to the nearest whole number. Growth is defined as an increase ins size of greater than 1.5 mm. COMPARISON: Comparison is made with prior study dated 02/03/2016. NODULES: No suspicious nodules are seen. Stable scarring at the lung bases. Emphysema: Hyperinflation. Emphysematous changes more prominent in the upper lobes. Endobronchial lesion: None Aorta: Atherosclerotic plaque formation of the aortic arch and descending thoracic aorta. Prior aortic valve replacement. Coronary arteries: Coronary artery calcification. Heart: Mild cardiomegaly. Mediastinal nodes: Stable benign-appearing mediastinal lymph nodes. Other chest and abdominal findings: CT/Low Dose CT Lung Screening IMPRESSION: Lung-RADS category 2 - Continue annual screening with LDCT in 12 months. IMPORTANT NOTES FOR USE: ACR Lung-RADS Version 1.0 Assessment Categories Release Date: February 11, 2014 Category: Coded 0-4 bases on nodule(s) with highest degree of suspicion. Negative screen is defined as categories 1 and 2; a positive screen is defined as categories 3 and 4. Category 3 and 4A nodules that are unchanged on interval CT should be coded as category 2, and individuals returned to screening in 12 months. Category 4X: Category 3 or 4 nodules with additional imaging findings that increase the suspicion of lung cancer, such as spiculation, GGN that doubles in size in 1 year, enlarged lymph notes, etc. Category Modifiers: S (significant finding unrelated to lung cancer) and C (prior history of treated lung cancer) may be added to the 0-4 Lung-RADS Electronically Signed: Nimesh Rogers, at 14:41 EDT , Service support ,
== END ==
PROVIDERS: PCP Nurse Practitioner; Referring Provider Nurse Practitioner; Visit Provider Nurse Practitioner
DX: Z12.31 Encounter for screening mammogram for malignant neoplasm of breast (principal); Z12.2 Encounter for screening for malignant neoplasm of respiratory organs; Z87.891 Personal history of nicotine dependence; Z78.0 Asymptomatic menopausal state
CPT/HCPCS: 77063; 77067; 77080; G0297

== ENCOUNTER → 2020-07-19 10:27 | Outpatient (CLI) | payer MEDICARE, MEDICAID, SELFPAY ==
[2020-05-27 13:17] VITALS: BMI 38.5
[2020-07-19 11:13] LABS: Anion Gap 1 (5-15); BUN 36 mg/dL (7-18); BUN/Creat Ratio 19.3 RATIO (10-20); Calcium,Total 8.5 mg/dL (8.5-10.1); Chloride 109 mmol/L (98-107); Creatinine, Serum 1.87 mg/dL (0.55-1.02); EST Glomerular Filtration Rate 28 mL/min (>60); Est Glom Filt Rate - Afr Amer 34 mL/min (>60); Glucose 112 mg/dL (74-106); Potassium 4.5 mmol/L (3.5-5.1); Sodium Level 141 mmol/L (136-145)
[2020-07-19 12:04] LABS: Protein, Urine (Random) 38.7 mg/dL (<11.9); Protein:Creat Ratio 448 mg/g CRE (0-200)
== END ==
PROVIDERS: PCP Nurse Practitioner; Referring Provider Internal Medicine Nephrology; Visit Provider Internal Medicine Nephrology
DX: N18.30 Chronic kidney disease, stage 3 unspecified (principal)
CPT/HCPCS: 36415; 80048; 82570; 84156

== ENCOUNTER → 2020-08-04 11:36 | Outpatient (CLI) | payer MEDICARE, MEDICAID, SELFPAY ==
[2020-08-04 11:11] VITALS: BMI 37.1
[2020-08-04 13:40] LABS: Free T3 2.2 pg/mL (2.18-3.98); T4 Free Direct 0.64 ng/dL (0.76-1.46)
== END ==
PROVIDERS: PCP Nurse Practitioner; Visit Provider Internal Medicine Endocrinology, Diabetes & Metabolism
DX: I50.33 Acute on chronic diastolic (congestive) heart failure (principal); E05.20 Thyrotoxicosis with toxic multinodular goiter without thyrotoxic crisis or storm
CPT/HCPCS: 36415; 84439; 84443; 84481

== ENCOUNTER → 2020-08-07 14:32 | Outpatient (CLI) | payer MEDICARE, MEDICAID, SELFPAY ==
[2020-08-04 11:11] VITALS: BMI 37.1
--- NOTE | 2020-08-07 14:43 | RAD_ITS ---
STUDY: X-RAY STERNUM REASON FOR EXAM: Female, 75 years old. Sternum pain -- was popping ice out of an ice tray 3 days ago and felt a pop in her sternum TECHNIQUE: 3 view(s) of the sternum were obtained. COMPARISON: None. FINDINGS: Normal bilateral sternoclavicular articulations. Normal manubrium. Normal sternomanubrial joint. Normal sternal body and xiphoid process. There is no demonstrated fracture of the sternum. Normal visualized anterior ribs. Normal visualized lungs. The soft tissue structures are unremarkable. RAD/Sternum min 2 Views IMPRESSION: No acute abnormality is seen. Electronically Signed: Nimesh Rogers, at 15:29 EDT , Service support ,
== END ==
PROVIDERS: PCP Nurse Practitioner; Visit Provider Internal Medicine
DX: R07.89 Other chest pain (principal)
CPT/HCPCS: 71120

== ENCOUNTER → 2020-09-03 12:24 | Outpatient (CLI) | payer MEDICARE, MEDICAID, SELFPAY ==
[2020-09-03 11:26] VITALS: BMI 36.1
[2020-09-03 14:05] LABS: Free T3 2.8 pg/mL (2.18-3.98); T4 Free Direct 0.68 ng/dL (0.76-1.46)
== END ==
PROVIDERS: PCP Nurse Practitioner; Referring Provider Internal Medicine Endocrinology, Diabetes & Metabolism; Visit Provider Internal Medicine Endocrinology, Diabetes & Metabolism
DX: E05.20 Thyrotoxicosis with toxic multinodular goiter without thyrotoxic crisis or storm (principal)
CPT/HCPCS: 36415; 84439; 84443; 84481

== ENCOUNTER → 2020-10-27 13:20 | Outpatient (CLI) | payer MEDICARE, MEDICAID, SELFPAY ==
[2020-09-03 11:26] VITALS: BMI 36.1
[2020-10-27 13:38] VITALS: BP 122/38; PULSE 51; RESP 16; TEMP 35.6; O2SAT 100; BMI 36.7
[2020-10-27 14:54] VITALS: BP 125/39; PULSE 45; RESP 16; TEMP 35.8; O2SAT 100
== END ==
PROVIDERS: PCP Nurse Practitioner; Referring Provider Internal Medicine Hematology & Oncology; Visit Provider Internal Medicine Hematology & Oncology
DX: D50.9 Iron deficiency anemia, unspecified (principal); D63.1 Anemia in chronic kidney disease; N18.30 Chronic kidney disease, stage 3 unspecified
CPT/HCPCS: 96365; J1756; J7050; A4216

== ENCOUNTER → 2020-10-29 13:20 | Outpatient (CLI) | payer MEDICARE, MEDICAID, SELFPAY ==
[2020-09-03 11:26] VITALS: BMI 36.1
[2020-10-27 13:38] VITALS: BMI 36.7
[2020-10-29 13:35] VITALS: BP 151/44; PULSE 51; RESP 16; TEMP 35.8; O2SAT 100; BMI 36.7
[2020-10-29 14:54] VITALS: BP 150/59; PULSE 88; TEMP 35.9; O2SAT 99
== END ==
PROVIDERS: PCP Nurse Practitioner; Referring Provider Internal Medicine Hematology & Oncology; Visit Provider Internal Medicine Hematology & Oncology
DX: D50.9 Iron deficiency anemia, unspecified (principal); N18.30 Chronic kidney disease, stage 3 unspecified; D63.1 Anemia in chronic kidney disease
CPT/HCPCS: 96365; J1756; J7050; A4216

== ENCOUNTER → 2020-11-03 12:21 | Outpatient (CLI) | payer MEDICARE, MEDICAID, SELFPAY ==
[2020-09-03 11:26] VITALS: BMI 36.1
[2020-10-29 13:35] VITALS: BMI 36.7
[2020-11-03 12:43] VITALS: BP 174/50; PULSE 49; RESP 16; TEMP 36.2; O2SAT 100; BMI 36.7
[2020-11-03 13:35] LABS: Amphetamine Urine VISTA NEGATIVE (<1000 ng/mL); Barbiturate Urine VISTA NEGATIVE (< 200 ng/mL); Benzodiazepine Urine VISTA NEGATIVE (< 200 ng/mL); Cocaine Urine VISTA NEGATIVE (< 300 ng/mL); Ecstacy Urine VISTA NEGATIVE (< 500 ng/mL); Methadone Urine VISTA NEGATIVE (< 300 ng/mL); PCP Urine VISTA NEGATIVE (< 25 ng/mL); THC Urine VISTA NEGATIVE (< 50 ng/mL); Vista UDS pH Range 6
[2020-11-03 13:54] VITALS: BP 133/65; PULSE 78
== END ==
PROVIDERS: Anesthesiology Pain Medicine; PCP Nurse Practitioner; Referring Provider Internal Medicine Hematology & Oncology; Visit Provider Internal Medicine Hematology & Oncology
DX: F11.20 Opioid dependence, uncomplicated (principal); D50.9 Iron deficiency anemia, unspecified; N18.30 Chronic kidney disease, stage 3 unspecified; D63.1 Anemia in chronic kidney disease
CPT/HCPCS: 96365; 80307; J1756; J7050; A4216

== ENCOUNTER → 2020-11-05 13:17 | Outpatient (CLI) | payer MEDICARE, MEDICAID, SELFPAY ==
[2020-09-03 11:26] VITALS: BMI 36.1
[2020-11-03 12:43] VITALS: BMI 36.7
[2020-11-05 14:19] VITALS: BP 193/89; PULSE 64; RESP 16; TEMP 35.9; O2SAT 98; BMI 36.7
[2020-11-05 15:05] VITALS: BP 166/78; PULSE 59; RESP 16; TEMP 35.9; O2SAT 98
== END ==
PROVIDERS: PCP Nurse Practitioner; Referring Provider Internal Medicine Hematology & Oncology; Visit Provider Internal Medicine Hematology & Oncology
DX: D50.9 Iron deficiency anemia, unspecified (principal); N18.30 Chronic kidney disease, stage 3 unspecified; D63.1 Anemia in chronic kidney disease
CPT/HCPCS: 96365; J1756; J7050; A4216

== ENCOUNTER → 2020-11-07 13:25 | Outpatient (CLI) | payer MEDICARE, MEDICAID, SELFPAY ==
[2020-09-03 11:26] VITALS: BMI 36.1
[2020-11-05 14:19] VITALS: BMI 36.7
[2020-11-07 14:00] VITALS: BP 118/32; PULSE 46; RESP 16; TEMP 36.4; O2SAT 100; BMI 36.7
[2020-11-07 14:48] VITALS: BP 148/53; PULSE 47; RESP 16; TEMP 36.5; O2SAT 100
== END ==
PROVIDERS: PCP Nurse Practitioner; Referring Provider Internal Medicine Hematology & Oncology; Visit Provider Internal Medicine Hematology & Oncology
DX: D50.9 Iron deficiency anemia, unspecified (principal); N18.30 Chronic kidney disease, stage 3 unspecified; D63.1 Anemia in chronic kidney disease
CPT/HCPCS: 96365; J1756; J7050; A4216

== ENCOUNTER 2020-12-06 14:39 | Inpatient (IN) | payer MEDICARE, MEDICAID, SELFPAY ==
[2020-11-07 14:00] VITALS: BMI 36.7
[2020-12-06] VITALS (9 sets, daily range): BP systolic 125–198; BP diastolic 71–96; PULSE 46–54; RESP 18–20; TEMP 36.1–36.9; O2SAT 88–100; BMI 36.7; BMI 36.6
--- NOTE | 2020-12-06 13:11 | RAD_ITS ---
EXAM: XR RIGHT FOOT COMPLETE, 3 OR MORE VIEWS CLINICAL INDICATION: STUBBED RIGHT BIG TOE. ACTIVE BLEEDING. TECHNIQUE: Frontal, lateral and oblique views of the right foot. This report was created using [employer] report generation technology. COMPARISON: None. FINDINGS: LIMITATIONS: Flexion contractures of the toes, limits visualization. BONES/JOINTS: Moderately displaced (3.7 mm) fracture of the first distal phalanx likely involving the articular surface. Degenerative changes of the midfoot. Degenerative narrowing and marginal spur formation of the second fourth and first MTP joints. No sclerotic or destructive changes observed. SOFT TISSUES: Unremarkable. No soft tissue swelling or gas. No radiopaque foreign body. RAD/Foot min 3 Views IMPRESSION: Moderately displaced (3.7 mm) fracture of the first distal phalanx likely involving the articular surface. Electronically Signed: Travis Ricks MD ([place]) at 15:33 EST , Service support ,
--- NOTE | 2020-12-06 15:21 | ED.DCSUM_ITS ---
- ER Visit Summary Date of Service: 12/06/20 Chief Complaint: Right great toe injury History of Present Illness: The patient is a 75 F presenting with right great toe injury. Patient states she stubbed her toe on . She has had persistent bleeding. She now has redness going up her leg. She uses a motorized wheelchair but does ambulate at baseline. Her ambulation is limited by her COPD. She denies fever. She has chronic shortness of breath which is no worse than usual. She denies chest pain. Denies other complaints. Physical Examination: Vitals are stable. Patient is afebrile. Alert no acute distress. HEENT exam is unremarkable. Neck is supple. Lungs are diminished bilaterally. Heart is regular rate and rhythm. Abdomen is soft nontender nondistended. Extremities right great toe abrasions. Dopplerable DP/PT pulses. Erythema to below the knee. Symmetric edema. Skin is warm and dry. No focal neurologic deficit. Remainder of exam is unremarkable. Emergency Department Course and Treatment: Right foot xray shows moderately displaced (3.7 mm) fracture of the first distal phalanx likely involving the articular surface. CBC shows white count 15.4, hemoglobin 11.2. Chemistries show glucose 191, BUN 57, creatinine 1.74. Lactic acid 2.2. Blood cultures were sent. Patient was given IV fluids. CRP 10.5, ESR 10. Patient was given vancomycin IV. Discussed with hospitalist for admission. Disposition: Admission Impression: Right great toe fracture, right lower extremity cellulitis This note was generated with [employer] dictation software. It may contain incorrect words, spelling, and punctuation that were not noted in review of the chart prior to signing ED Disposition - Plan for ED Patient: Referrals: Yesenia Leon NP, BLOW MOLD MACHINE OPERATOR-C [Primary Care Provider] -
[2020-12-06 16:06] LABS: Absolute Lymphocyte Count 0.36 X10^3/uL (0.83-4.51); Absolute Neutrophil Count 14.8 X10^3/uL (2.0-7.7); Basophil# 0.02 X10^3/uL; Basophil% 0.1 % (0-1); Eosinophil# 0.02 X10^3/uL; Eosinophils% 0.1 % (0-5); Hematocrit 38.5 % (37-47); Hemoglobin 11.2 g/dL (12.0-15.0); Lymphocyte # 0.36 X10^3/ul (4.0); Lymphocyte % 2.3 % (19-41); Mean Corp Hgb Conc 29.1 g/dL (32-36); Mean Corpuscular Hgb 27.3 pg (27.0-32.0); Mean Corpuscular Volume 93.9 fL (81-99); Mean Platelet Vol. 12.5 fl (6.2-12.0); Monocyte# 0.12 X10^3/uL; Monocyte% 0.8 % (0-10); NRBC Flagged by Analyzer 0 % (0-5); Neutrophil # 14.78 X10^3/uL (2.7-7.7); Neutrophil % 96.1 % (47-70); POSITIVE DIFFERENTIAL YES; POSITIVE MORPHOLOGY YES; Platelet Count 220 K/mm3 (150-450); RBC Distribution Width CV 24.5 % (11.6-14.6); RBC Distribution Width SD 83.5 fl (35.1-43.9); White Blood Count 15.4 K/mm3 (4.4-11.0)
[2020-12-06 16:20] LABS: Differential Indicated SCAN CRITERIA MET
[2020-12-06 16:22] LABS: Anion Gap 6 (5-15); BUN 57 mg/dL (7-18); BUN/Creat Ratio 32.8 RATIO (10-20); Calcium,Total 8.3 mg/dL (8.5-10.1); Chloride 105 mmol/L (98-107); Creatinine, Serum 1.74 mg/dL (0.55-1.02); EST Glomerular Filtration Rate 30 mL/min (>60); Est Glom Filt Rate - Afr Amer 37 mL/min (>60); Estimated Creatinine Clearance 36.97 ml/min; Glucose 191 mg/dL (74-106); Sodium Level 140 mmol/L (136-145)
[2020-12-06 16:25] LABS: Erythrocyte Sedimentation Rate 10 mm/hr (0-30)
[2020-12-06 16:34] LABS: Lactic Acid 2.2 mmol/L (0.4-1.9)
[2020-12-06 16:36] LABS: Anisocytosis 1+; Platelet Estimate ADEQUATE (ADEQ); Red Cell Morphology N CHROM NORMAL (NORM C&C)
[2020-12-06 16:37] LABS: Macrocytosis RARE; Ovalocyte RARE
--- NOTE | 2020-12-06 16:49 | NURSING ---
NO OLD EKGS
--- NOTE | 2020-12-06 16:54 | NURSING ---
DR KEYUR LOPEZ
--- NOTE | 2020-12-06 17:09 | HP.PCM_ITS ---
Problem List (1) Fracture of right great toe Status: Acute (2) Cellulitis of right leg Status: Acute (3) Obesity Status: Chronic Qualifiers: (4) Acute on chronic diastolic CHF (congestive heart failure) Status: Chronic (5) COPD exacerbation Status: Chronic (6) Diabetes Status: Chronic (7) Toxic multinodular goiter Status: Chronic (8) Polyneuropathy due to type 2 diabetes mellitus Status: Chronic (9) COPD (chronic obstructive pulmonary disease) Status: Chronic (10) Acute on chronic respiratory failure with hypoxia Status: Chronic (11) Paroxysmal atrial fibrillation Status: Chronic (12) Anemia Status: Chronic (13) Non-rheumatic aortic stenosis Status: Chronic (14) H/O aortic valve replacement Status: Chronic Comment: TAVR: 23 mm Guillaume-Sapiens S3 valve 12/03/2016 (15) Chronic diastolic heart failure Status: Chronic (16) Left carotid artery stenosis Status: Chronic (17) Right bundle branch block (RBBB) Status: Chronic (18) Hyperlipidemia Status: Chronic Qualifiers: (19) Essential (primary) hypertension Status: Chronic History of Present Illness Date of Admission: 12/06/20 Chief Complaint: right foot redness. The patient is a 75 year old F presents with a redness of her right leg. On the , patient was walking and stumbled and stubbed her right toe. Patient has neuropathy so did not have any pain. Patient is on apixaban and it bled. And it has continued to bleed 2 days later. Patient noted redness extending up her right leg. Patient was concerned and decided to come to the emergency room. Patient used her electric wheelchair through the snow to get over here and took her roughly an hour. Patient is on oxygen chronically and was short of breath when she arrived pulse ox was 88%. Patient does have a portable oxygen condenser which sometimes freezes up in the extreme cold. Patient was noted to have redness extending from her foot extending proximally. Patient had bleeding adjacent to her great toe and had an x-ray that showed a moderate displaced fracture of the first distal phalanx of the right foot. In the emergency room, patient did receive vancomycin. [] Past Medical History Past Medical History (Chronic Problems): Chronic Problems (Last Reviewed 09/03/20 @ 12:06 by Emma DUNBAR, PA) Obesity (Chronic) Acute on chronic diastolic CHF (congestive heart failure) (Chronic) COPD exacerbation (Chronic) Diabetes (Chronic) Toxic multinodular goiter (Chronic) Polyneuropathy due to type 2 diabetes mellitus (Chronic) COPD (chronic obstructive pulmonary disease) (Chronic) Acute on chronic respiratory failure with hypoxia (Chronic) Paroxysmal atrial fibrillation (Chronic) Anemia (Chronic) Non-rheumatic aortic stenosis (Chronic) H/O aortic valve replacement (Chronic 12/03/16) TAVR: 23 mm Guillaume-Sapiens S3 valve 12/03/2016 Chronic diastolic heart failure (Chronic) Left carotid artery stenosis (Chronic) Right bundle branch block (RBBB) (Chronic) Hyperlipidemia (Chronic) Essential (primary) hypertension (Chronic) Medical History: Medical History (Last Reviewed 12/06/20 @ 17:[address] Juan Blunt, DO) Paroxysmal atrial fibrillation (Chronic) I48.0 Anemia (Chronic) D64.9 Non-rheumatic aortic stenosis (Chronic) I35.0 Chronic diastolic heart failure (Chronic) I50.32 Left carotid artery stenosis (Chronic) I65.22 Right bundle branch block (RBBB) (Chronic) I45.10 Hyperlipidemia (Chronic) E78.5 Essential (primary) hypertension (Chronic) I10 Type 2 diabetes mellitus E11.9 Anxiety F41.9 Arthritis M19.90 Asthma J45.909 Breast lump N63.0 COPD (chronic obstructive pulmonary disease) J44.9 Carotid artery stenosis I65.29 Carpal tunnel syndrome G56.00 Depression F32.9 Fibromyalgia M79.7 GERD (gastroesophageal reflux disease) K21.9 H/O transfusion of whole blood Z92.89 Hypothyroidism E03.9 IBS (irritable bowel syndrome) K58.9 MTHFR mutation E72.12 Obesity E66.9 Osteoporosis M81.0 RLS (restless legs syndrome) G25.81 Skin cancer C44.90 Tuberculosis A15.9 Secondary pulmonary arterial hypertension I27.21 Thrombocytopenia D69.6 Secondary to sepsis versus heparin-induced thrombocytopenia Non-STEMI (non-ST elevated myocardial infarction) (Inactive) Onset Date: 09/27/19 I21.4 Seasonal allergies J30.2 Allergies ciprofloxacin [From Cipro] Allergy (Verified 12/06/20 14:44) Rash ciprofloxacin HCl [From Cipro] Allergy (Verified 12/06/20 14:44) Rash gabapentin [From Neurontin] Allergy (Verified 12/06/20 14:44) Rash heparin Allergy (Verified 12/06/20 14:44) Low platelets Home Medications: Ambulatory Orders Medication Instructions Recorded Albuterol Aerosols [Ventolin 2.5 mg INHALATION Q4H PRN PRN 09/26/19 Aerosols] Albuterol IH (ProAir) [Proair Hfa] 2 puff INHALATION Q6H PRN PRN 09/26/19 Cyanocobalamin (Vitamin B-12) 1,000 mcg PO DAILY 09/26/19 [Vitamin B-12] Fluticasone 0.05% [Flonase Nasal 2 spray NASAL DAILY 09/26/19 [place]] Fluticasone/Salmeterol [Advair Hfa 2 puff INHALATION BID 09/26/19 115-21 Mcg Inhaler] Insulin Aspart [Novolog Flexpen] 10 units SUBCUT TIDCM 09/26/19 Iron Polysaccharide Complex 150 mg PO BID 09/26/19 [Ferrex 150] L.acidoph,Paracasei, B.lactis 1 ea PO DAILY 09/26/19 [Probiotic] Nystatin [Nyamyc] 30 gm TP BID 09/26/19 Paroxetine HCl [Paxil] 40 mg PO DAILY 09/26/19 Ropinirole HCl 2 mg PO QHS 09/26/19 Suvorexant [Belsomra] 20 mg PO QHS 09/26/19 Tiotropium [place] [Spiriva] 18 mcg IH DAILY 09/26/19 Atorvastatin Calcium [Lipitor] 80 mg PO QHS #30 tab 09/29/19 Oxycodone HCl/Acetaminophen 1 tab PO TID PRN 09/30/19 [Percocet 10-325 mg Tablet] calcium carbonate 500 mg (1,250 1 tab PO DAILY tab 01/11/20 mg)-vitamin D3 200 unit tablet insulin detemir U-100 100 unit/mL 40 unit SC QHS ml 05/05/20 subcutaneous solution lisinopril 10 mg tablet 10 mg PO DAILY 05/05/20 furosemide 40 mg tablet See Rx Instructions PO BID tab 05/13/20 potassium chloride 10 mEq 10 meq PO BID tab 05/13/20 tablet,extended release denosumab 60 mg/mL subcutaneous 60 mg SC [id number] #1 ml 08/04/20 syringe metoprolol tartrate 25 mg tablet 25 mg PO BID #60 tab 08/06/20 levothyroxine 25 mcg tablet 25 mcg PO DAILY #30 tab 09/03/20 omeprazole 20 mg capsule,delayed 40 mg PO DAILY cap 09/03/20 release amiodarone 200 mg tablet 200 mg PO DAILY #90 tab 10/02/20 apixaban 2.5 mg tablet 2.5 mg PO BID #60 tab 10/07/20 nitroglycerin 0.4 mg sublingual 0.4 mg SUBLINGUAL PRN PRN #25 tab 10/30/20 tablet Surgical History: Surgical History (Last Reviewed 12/06/20 @ 17:[address] Juan Blunt DO) H/O aortic valve replacement (Chronic) Onset Date: 12/03/16 Z95.2 TAVR: 23 mm Guillaume-Sapiens S3 valve 12/03/2016 H/O: hysterectomy Z98.890, Z90.710 H/O laminectomy Z98.890 History of left heart catheterization Onset Date: 09/03/16 Z98.890 History of tympanoplasty Z98.890 Hx of melanoma excision Z98.890, Z85.820 1997 Hx of rotator cuff surgery Z98.890 JAIME S/P hip replacement Z96.649 S/p bilateral carpal tunnel release Z98.890 Surgical History: appendectomy - Right hip replacement, back surgery, la minectomy, carpal tunnel surgery, right leg hematoma extraction, hysterectomy, rotator cuff repair, total hip arthroplasty, - - carpal tunnel, RLE DVT Psychiatric History: Anxiety, Depression 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 Juan Blunt DO) Mother Arthritis Diabetes Hormone deficiency CVA (cerebral vascular accident) Colon cancer Cancer Sister Bleeding disorder CVA (cerebral vascular accident) Colon cancer Daughter Cancer Seizures Father Diabetes Leukemia Grandmother Diabetes Unknown Asthma Heart disease Hypertension High cholesterol Thyroid disorder Osteoporosis Cancer Tuberculosis History Items: No pertinent history Review of Systems Constitutional: Denies: Anorexia, Chills, Fever, Night Sweats Eyes: Denies: Blurred vision, Double vision HEENT: Denies: Head Aches, Sinus Congestion, Sinus Drainage Respiratory: Denies: Cough, Shortness of breath at rest, Sputum production Gastrointestinal: Denies: Abdominal Pain, Nausea, Vomiting Genitourinary: Denies: Dysuria Musculoskeletal: Denies: Leg Pain Hematologic/ Lymphatic: Reports: Easy Bruising, Easy Bleeding Comment: All review of systems were negative except as mentioned above in the history of present illness and the other review of systems. VTE Information - Inpt Only VTE Present on Admission: No VTE Mechan Device Prophylaxis: SCD's VTE Pharm Prophylaxis ordered?: No Reason prophylaxis not ordered:: Medical Contraindication - Physical Exam Vitals/I&O's: Vital Signs Temp Pulse Resp BP Pulse Ox 36.1 C L 46 L 18 166/71 H 97 12/06/20 16:44 12/06/20 16:44 12/06/20 16:44 12/06/20 16:44 12/06/20 16:44 Oxygen Flow Rate (L/min) 4 Oxygen Delivery Method Nasal Cannula Weight: 82.554 kg Body Mass Index (BMI) 36.7 Finger Stick Blood Glucose 112 General: Alert, Cooperative, No apparent distress, - - On oxygen. No respiratory distress. No conversational dyspnea. HEENT: Atraumatic, Normocephalic, - - No icterus Oral: Moist Mucosa, No Gingival or Mucosal Lesions/ Ulcerations Neck: No Nodes, Thyroid Normal Size and Texture Lungs: Clear to auscultation, Normal air movement, No rhonchi, No wheeze Cardiovascular: Regular rate, Regular Rhythm, Normal S1, Normal S2, No murmurs Abdomen: Bowel Sounds Present, Soft, Non Tender, Non-Distended, No Hepato- splenomegaly Extremities: - - On patient's toes, patient has some thickening of the skin on all her digits though not evidence on her fingers. On her right great toe, the toenail appears to be somewhat loose but also has a skin tear on the dorsal aspect adjacent to the toenail with some blood pulled up. Skin: - - Erythema from the patient's distal foot extending proximally up her mid ankle. Patient does have some boggy skin on her medial right heel. Venous stasis changes in the lower extremities. Musculoskeletal: No Tenderness to Palpation of Joints or Extremities, No Muscle Wasting Neurological: - - Diminished sensations in the lower extremities. No clonus Psych/Mental Status: Normal Affect, Appropriate Laboratory Results 12/06/20 15:45: WBC 15.4 H, RBC 4.10 L, Hgb 11.2 L, Hct 38.5, MCV 93.9, MCH 27.3, MCHC 29.1 L, RDW Std Deviation 83.5 H, RDW Coeff of Jeff 24.5 H, Plt Count 220, MPV 12.5 H, Immature Gran % (Auto) 0.600, Neut % (Auto) 96.1 H, Lymph % (Auto) 2.3 L, [place] % (Auto) 0.8, Eos % (Auto) 0.1, Baso % (Auto) 0.1, Absolute Neuts (auto) 14.8 H, Absolute Lymphs (auto) 0.36 L, Nucleated RBC % 0, Differential Comment SEE COMMENT, Platelet Estimate ADEQUATE, RBC Morphology N CHROM, Anisocytosis 1+, Macrocytosis RARE, Ovalocytes RARE, ESR 10 12/06/20 15:45: Sodium 140, Potassium 5.0, Chloride 105, Carbon Dioxide 29.0, Anion Gap 6, BUN 57 H, Creatinine 1.74 H, Estim Creat Clear Calc 36.97, Est GFR (MDRD) Af Amer 37 L, Est GFR (MDRD) Non-Af 30 L, BUN/Creatinine Ratio 32.8 H, Glucose 191 H, Calcium 8.3 L, C-React Prot Ext Range 10.50 H 12/06/20 15:45: Lactic Acid 2.2 H* Current Medications Sodium Chloride () 1,000 mls @ 999 mls/hr IV .Q1H1M ONE Stop: 12/06/20 17:44 Vancomycin HCl 1,250 mg/ (Sodium Chloride) 275 mls @ 167 mls/hr IV X1 ONE Stop: 12/06/20 18:38 Assessment/Plan All Active Problems (Last Reviewed 09/03/20 @ 12:06 by Emma DUNBAR, PA) Fracture of right great toe (Acute) Cellulitis of right leg (Acute) 1. Right lower extremity cellulitis Secondary to injury to her right toe were patient has a skin tear which is likely the nidus for the infection. Lactic acid was elevated I do not feel that that is related with underlying sepsis or severe sepsis but more likely due to the patient's hypoxia that she presented with. Plan * Continue with vancomycin * Check culture * Given the patient's neuropathy and diabetes, will check an MRI to rule out osteomyelitis * Podiatry consultation, Dr. Chavira notified * Given the fracture to the distal phalanx, patient be nonweightbearing for now * Wound still with some bleeding so we will hold apixaban also has ecchymosis around it as well. 2. Right distal phalanx fracture Plan as above 3. Atrial fibrillation Plan as above plus continue with amiodarone and metoprolol 4. Diabetes mellitus type 2 Blood glucose was 191 when she presented Plan * Continue with basal and prandial insulin. * Add sliding scale. * Check A1c 5. Acute hypoxic respiratory insufficiency Secondary to traveling via her electric wheelchair in the cold took her roughly an hour. Condenser may have not been functioning properly due to the cold, according to the patient. Patient is not in any duress at this time. Plan * Continue with bronchodilators. * No evidence of exacerbation to warrant steroids 6. VTE prophylaxis with SCDs. Holding off on anticoagulation given the bleeding that she is experiencing. Inpatient E&M: 12936 Init Hosp L3
--- NOTE | 2020-12-06 17:09 | NURSING ---
MED SURG KEYUR RT GREAT TOE INFECTION
[2020-12-06] MEDS: 0.9% Normal Saline 1,000 ML 999 ML IV (17:14)
--- NOTE | 2020-12-06 18:15 | NURSING ---
DR NATH IN ROOM
--- NOTE | 2020-12-06 18:53 | PCM.CONS.GEN ---
Reason for Consult Date of Consultation: 12/06/20 Reason for Consultation: Right 1st toe wound/infection/fracture History of Present Illness: The patient is a 75 year old female with history of multiple medical problems including heart disease, COPD, diabetes, on apixaba anticoagulation presented to ER today for her right 1st toe. She relates she stubbed her toe on nothing. She relates this happened on evening 12/04/2020. She relates to significant bleeding. She presented today for further evaluation because she was concerned about the way it was looking. Patient can today by her powered wheelchair, was out in the cold for about an hour. Per Dr. Solo her toes were very cold when patient arrived. Patient noted to have increased WBC and lactic acid, patient is being admitted, she is being started on Vancomycin. Patient relates to history of PAD, relates she was told this about 9 years ago. Patient relates she used to be a smoker, she relates she stopped 5 years ago. Patient relates she has neuropathy in her feet, relates feet throb at times, but no significant pain to the right 1st toe. She relates she does not walk much due to her COPD, uses wheelchair. Patient relates she lives alone, no family locally. She does not have any fever, chills, nausea or vomiting. Past Medical History Past Medical History (Chronic Problems): Chronic Problems (Last Reviewed 12/06/20 @ 17:[address] Juan Blunt, ) Obesity (Chronic) Acute on chronic diastolic CHF (congestive heart failure) (Chronic) COPD exacerbation (Chronic) Diabetes (Chronic) Toxic multinodular goiter (Chronic) Polyneuropathy due to type 2 diabetes mellitus (Chronic) COPD (chronic obstructive pulmonary disease) (Chronic) Acute on chronic respiratory failure with hypoxia (Chronic) Paroxysmal atrial fibrillation (Chronic) Anemia (Chronic) Non-rheumatic aortic stenosis (Chronic) H/O aortic valve replacement (Chronic 12/03/16) TAVR: 23 mm Guillaume-Sapiens S3 valve 12/03/2016 Chronic diastolic heart failure (Chronic) Left carotid artery stenosis (Chronic) Right bundle branch block (RBBB) (Chronic) Hyperlipidemia (Chronic) Essential (primary) hypertension (Chronic) Medical History: Medical History (Last Reviewed 12/06/20 @ 17:[address] Juan Blunt DO) Paroxysmal atrial fibrillation (Chronic) I48.0 Anemia (Chronic) D64.9 Non-rheumatic aortic stenosis (Chronic) I35.0 Chronic diastolic heart failure (Chronic) I50.32 Left carotid artery stenosis (Chronic) I65.22 Right bundle branch block (RBBB) (Chronic) I45.10 Hyperlipidemia (Chronic) E78.5 Essential (primary) hypertension (Chronic) I10 Type 2 diabetes mellitus E11.9 Anxiety F41.9 Arthritis M19.90 Asthma J45.909 Breast lump N63.0 COPD (chronic obstructive pulmonary disease) J44.9 Carotid artery stenosis I65.29 Carpal tunnel syndrome G56.00 Depression F32.9 Fibromyalgia M79.7 GERD (gastroesophageal reflux disease) K21.9 H/O transfusion of whole blood Z92.89 Hypothyroidism E03.9 IBS (irritable bowel syndrome) K58.9 MTHFR mutation E72.12 Obesity E66.9 Osteoporosis M81.0 RLS (restless legs syndrome) G25.81 Skin cancer C44.90 Tuberculosis A15.9 Secondary pulmonary arterial hypertension I27.21 Thrombocytopenia D69.6 Secondary to sepsis versus heparin-induced thrombocytopenia Non-STEMI (non-ST elevated myocardial infarction) (Inactive) Onset Date: 09/27/19 I21.4 Seasonal allergies J30.2 Allergies ciprofloxacin [From Cipro] Allergy (Verified 12/06/20 14:44) Rash ciprofloxacin HCl [From Cipro] Allergy (Verified 12/06/20 14:44) Rash gabapentin [From Neurontin] Allergy (Verified 12/06/20 14:44) Rash heparin Allergy (Verified 12/06/20 14:44) Low platelets Home Medications: Ambulatory Orders Medication Instructions Recorded Albuterol Aerosols [Ventolin 2.5 mg INHALATION Q4H PRN PRN 09/26/19 Aerosols] Albuterol IH (ProAir) [Proair Hfa] 2 puff INHALATION Q6H PRN PRN 09/26/19 Cyanocobalamin (Vitamin B-12) 1,000 mcg PO DAILY 09/26/19 [Vitamin B-12] Fluticasone 0.05% [Flonase Nasal 2 spray NASAL DAILY 09/26/19 [place]] Fluticasone/Salmeterol [Advair Hfa 2 puff INHALATION BID 09/26/19 115-21 Mcg Inhaler] Insulin Aspart [Novolog Flexpen] 10 units SUBCUT TIDCM 09/26/19 Iron Polysaccharide Complex 150 mg PO BID 09/26/19 [Ferrex 150] L.acidoph,Paracasei, B.lactis 1 ea PO DAILY 09/26/19 [Probiotic] Nystatin [Nyamyc] 30 gm TP BID 09/26/19 Paroxetine HCl [Paxil] 40 mg PO DAILY 09/26/19 Ropinirole HCl 2 mg PO QHS 09/26/19 Suvorexant [Belsomra] 20 mg PO QHS 09/26/19 Tiotropium [place] [Spiriva] 18 mcg IH DAILY 09/26/19 Atorvastatin Calcium [Lipitor] 80 mg PO QHS #30 tab 09/29/19 Oxycodone HCl/Acetaminophen 1 tab PO TID PRN 09/30/19 [Percocet 10-325 mg Tablet] calcium carbonate 500 mg (1,250 1 tab PO DAILY tab 01/11/20 mg)-vitamin D3 200 unit tablet insulin detemir U-100 100 unit/mL 40 unit SC QHS ml 05/05/20 subcutaneous solution lisinopril 10 mg tablet 10 mg PO DAILY 05/05/20 furosemide 40 mg tablet See Rx Instructions PO BID tab 05/13/20 potassium chloride 10 mEq 10 meq PO BID tab 05/13/20 tablet,extended release denosumab 60 mg/mL subcutaneous 60 mg SC [id number] #1 ml 08/04/20 syringe metoprolol tartrate 25 mg tablet 25 mg PO BID #60 tab 08/06/20 levothyroxine 25 mcg tablet 25 mcg PO DAILY #30 tab 09/03/20 omeprazole 20 mg capsule,delayed 40 mg PO DAILY cap 09/03/20 release amiodarone 200 mg tablet 200 mg PO DAILY #90 tab 10/02/20 apixaban 2.5 mg tablet 2.5 mg PO BID #60 tab 10/07/20 nitroglycerin 0.4 mg sublingual 0.4 mg SUBLINGUAL PRN PRN #25 tab 10/30/20 tablet Surgical History: Surgical History (Last Reviewed 12/06/20 @ 17:[address] Juan Blunt, DO) H/O aortic valve replacement (Chronic) Onset Date: 12/03/16 Z95.2 TAVR: 23 mm Guillaume-Sapiens S3 valve 12/03/2016 H/O: hysterectomy Z98.890, Z90.710 H/O laminectomy Z98.890 History of left heart catheterization Onset Date: 09/03/16 Z98.890 History of tympanoplasty Z98.890 Hx of melanoma excision Z98.890, Z85.820 1996 Hx of rotator cuff surgery Z98.890 JAIME S/P hip replacement Z96.649 S/p bilateral carpal tunnel release Z98.890 Surgical History: appendectomy - Right hip replacement, back surgery, laminectomy, carpal tunnel surgery, right leg hematoma extraction, hysterectomy, rotator cuff repair, total hip arthroplasty, - - carpal tunnel, RLE DVT Psychiatric History: Anxiety, Depression [employer] History: No pertinent [employer] history Smoking Status: Former smoker - *Family History Maternal Family History: Family History (Last Reviewed 12/06/20 @ 17:[address] Juan Blunt DO) Mother Arthritis Diabetes Hormone deficiency CVA (cerebral vascular accident) Colon cancer Cancer Sister Bleeding disorder CVA (cerebral vascular accident) Colon cancer Daughter Cancer Seizures Father Diabetes Leukemia Grandmother Diabetes Unknown Asthma Heart disease Hypertension High cholesterol Thyroid disorder Osteoporosis Cancer Tuberculosis History Items: No pertinent history Review of Systems Constitutional: Denies: Chills, Fever Gastrointestinal: Denies: Nausea, Vomiting Patient Problems: Active and Suspected Problems (Last Reviewed 12/06/20 @ 17:[address] Juan Blunt DO) Fracture of right great toe (Acute) Cellulitis of right leg (Acute) - Physical Exam Vitals/I&O's: Vital Signs Temp Pulse Resp BP Pulse Ox 97.5 F L 51 L 18 191/96 H 96 12/06/20 18:46 12/06/20 18:46 12/06/20 18:46 12/06/20 18:46 12/06/20 18:46 Oxygen Flow Rate (L/min) 3 Oxygen Delivery Method Nasal Cannula Weight: 82.554 kg Body Mass Index (BMI) 36.7 Finger Stick Blood Glucose 112 General: Alert, Oriented x3, Cooperative, No apparent distress Cardiovascular: - - Strong DP pulse to the right foot, diminished right PT pulse. No evidence of acute ischemia to the foot or ankle bilateral at this time. Extremities: Capillary Refill Less than 3 Seconds, No Calf Tenderness, - - There is noted to be significant ecchymosis to the right 1st toe, there is significant lysis of the 1st toenail with laceration to the proximal nail bed, there is erythema to the 1st toe and foot/ankle, there is no purulence, there is bloody discharge from the laceration site. Skin: Ulcer/ Wound - There are small wounds to the right heel down to subcutaneous tissue with no evidence of infection, some granular tissue, some fibrotic tissue. No other open lesions to the foot or ankle bilateral., - - Toenails are thickened, dystrophic and yellow 1-5 bilateral. Musculoskeletal: - - Right foot xrays some fracture of the distal phalanx with some displacement noted. There is some slight tenderness to the right 1st toe at the fracture site, no other POP or pain on ROM to the foot or ankle bilaterally. Neurological: - - Decreased sensation to the foot and ankle bilateral c/w known peripheral neuropathy. Contracture of toes 1-5 bilateral - chronic. Psych/Mental Status: Normal Affect, Appropriate, Alert and oriented to time, place, person, mood and affect Laboratory Results 12/06/20 15:45: WBC 15.4 H, RBC 4.10 L, Hgb 11.2 L, Hct 38.5, MCV 93.9, MCH 27.3, MCHC 29.1 L, RDW Std Deviation 83.5 H, RDW Coeff of Jeff 24.5 H, Plt Count 220, MPV 12.5 H, Immature Gran % (Auto) 0.600, Neut % (Auto) 96.1 H, Lymph % (Auto) 2.3 L, [place] % (Auto) 0.8, Eos % (Auto) 0.1, Baso % (Auto) 0.1, Absolute Neuts (auto) 14.8 H, Absolute Lymphs (auto) 0.36 L, Nucleated RBC % 0, Differential Comment SEE COMMENT, Platelet Estimate ADEQUATE, RBC Morphology N CHROM, Anisocytosis 1+, Macrocytosis RARE, Ovalocytes RARE, ESR 10 12/06/20 15:45: Sodium 140, Potassium 5.0, Chloride 105, Carbon Dioxide 29.0, Anion Gap 6, BUN 57 H, Creatinine 1.74 H, Estim Creat Clear Calc 36.97, Est GFR (MDRD) Af Amer 37 L, Est GFR (MDRD) Non-Af 30 L, BUN/Creatinine Ratio 32.8 H, Glucose 191 H, Calcium 8.3 L, C-React Prot Ext Range 10.50 H 12/06/20 15:45: Lactic Acid 2.2 H* Assessment/Plan All Active Problems (Last Reviewed 12/06/20 @ 17:[address] Juan Blunt, DO) Fracture of right great toe (Acute) Cellulitis of right leg (Acute) Right 1st toe distal phalanx fracture - open, w/ laceration down to bone and lysis of the 1st toenail Cellulitis right foot, concern for osteomyelitis right 1st toe Diabetes with peripheral neuropathy Peripheral vascular disease Multiple comorbidities Reviewed diagnostic data. Reviewed right foot xrays from today - there is noted to be fracture of the 1st toe distal phalanx, there is some displacement noted. There is no gas in the tissues. WBC and lactic acid elevated. Patient being admitted for IV antibiotics, as well as further workup. MRI ordered and pending. Due to findings with significant lysis of the 1st toenail discussed removal of 1st toenail and closed reduction of fracture site with patient in detail. Reviewed rationale of this, possible benefits vs risks. There is concern for osteomyelitis as well - this was discussed with patient. Patient agreed with the procedure, and consent form was reviewed with her and she freely signed it. Patient did not want to proceed with any local anesthesia, this was offered to her but she declined because she has significant peripheral neuropathy. The toenail from the right 1st toe was easily removed manually with my fingers because it was so loose. The nail bed was evaluated, and there was noted to be laceration to the proximal nail bed which probed to bone. A culture was obtained and sent to microbiology for further evaluation. The site was flushed with normal saline solution. The fracture was manually closed reduced. Applied betadine with gauze, kerlix dressing. Keep clean, dry and intact - change daily. Patient tolerated well with no complications. No weightbearing right foot. Will order noninvasive lower extremity vascular studies for further evaluation of flow. Podiatry will continue to follow closely. Thank you for consultation.
--- NOTE | 2020-12-06 19:12 | VDLE_ITS ---
Reason For Study: Swelling RIGHT LEFT GSV is normal. GSV is normal. CFV is compressible, spontaneous, phasic, CFV is compressible, spontaneous, phasic, competent and demonstrates normal competent, and demonstrates normal augmentation. augmentation. FV is compressible, spontaneous, phasic, FV is compressible, spontaneous, phasic, competent and demonstrates normal competent and demonstrates normal augmentation. augmentation. POP V is compressible, spontaneous, phasic, POP V is compressible, spontaneous, phasic, competent and demonstrates normal competent and demonstrates normal augmentation. augmentation. T/P Trunk is compressible. T/P Trunk is compressible. PTV is compressible. PTV is compressible. RT PerV is compressible. LT PerV is compressible. Procedure This is a venous duplex using B-mode, color flow and spectral Doppler. Exam performed portable in patient room. A preliminary report was called and/or faxed to [facility]. Interpretation Summary No evidence for acute deep venous thrombosis bilateral lower extremities with patent and compressible bilateral great saphenous veins. Ordering Physician: Glne Chavira Referring Physician: Yesenia Leon Performed By: Mague Mendes RVT
--- NOTE | 2020-12-06 19:13 | ART_ITS ---
Reason For Study: PVD Procedure A bilateral lower extremity continuous wave Doppler with analog waveform analysis,segmental pressures,and ankle brachial indexes without exercise. Unable to obtain PTV and DBI due to bleeding wounds bilaterally on RT great toe and medial maleolus regions. Left Segmental Pressures Left brachial= 144mmHg. Left thigh = 151mmHg. Left calf = 160mmHg. Left dorsalis pedis artery = 69mmHg. Left posterior tibial artery = N/AmmHg. Left digit = 0 mmHg. The left dorsalis pedis waveforms are monophasic. The pulse volume recording at the left digit is poor. Right Segmental Pressures Right brachial= 145mmHg. Right dorsalis pedis artery = NCmmHg. Right posterior tibial artery = N/AmmHg. Right digit = N/A mmHg. Indices The right digital-brachial index is N/A. The right ankle brachial index by the dorsalis pedis is N/C. The left resting ankle brachial index is .48. The left ankle brachial index by the posterior tibial artery is N/A. Interpretation Summary Severe arterial occlusive disease bilateral lower extremities Monophasic bilateral doppler waveforms Ordering Physician: Glen Chavira Referring Physician: NAREN BATES Performed By: Tamia Barrow RDCS/RVT
--- NOTE | 2020-12-06 19:34 | MRI_ITS ---
STUDY: MRI RIGHT FOREFOOT WITHOUT CONTRAST REASON FOR EXAM: Female, 75 years old. fractured rt toe with cellulitis TECHNIQUE: Standardized fat and water weighted pulse sequences were obtained in all 3 orthogonal planes. COMPARISON: X-ray 12/06/2020 FINDINGS: Normal metatarsophalangeal joint of the hallux. Normal tibial and fibular sesamoids, with normal sesamoids-first metatarsal articulations. Normal interphalangeal joint of the hallux. Oblique fracture the base of the first distal phalanx extending into the the fibular aspect of the interphalangeal joint. No bone destruction to suggest osteomyelitis. Normal medial and lateral heads of the flexor hallucis brevis tendons. Normal flexor and extensor hallucis longus tendons. Severe arthrosis of the second metatarsophalangeal joint. Hammertoe deformities of the second through fifth digits. Normal proximal, middle and distal phalanges of the second through fifth toes. Normal first through fourth intermetatarsal spaces. Normal flexor and extensor tendons of the second through fifth toes. Normal visualized metatarsi. Normal intrinsic muscles of the forefoot. There is no demonstrated soft tissue abnormality. MRI/Lower Ext/No Jt/w/o IMPRESSION: Oblique fracture of the base of the first distal phalanx. No MR evidence of osteomyelitis. Electronically Signed: Ramón Tomlinson MD at 11:58 EST Tel , Service support ,
[2020-12-06 19:53] LABS: Reflex Lactate? Y
[2020-12-06] MEDS: oxyCODONE 5 MG Tablet 10 MG PO (20:43)
[2020-12-06] MEDS: Atorvastatin Calcium 80 MG Tablet PO (20:45)
[2020-12-06] MEDS: Nystatin Powder 15gm Bottle 1 APPLIC TOPICAL (20:46)
[2020-12-06] MEDS: Metoprolol Tartrate 25 MG Tablet PO (20:46)
[2020-12-06] MEDS: Pramipexole Di-HCl 1 MG Tablet PO (20:50)
[2020-12-06 21:06] LABS: Bedside Glucose 155 mg/dL (70-110)
--- NOTE | 2020-12-06 21:10 | PCM.RX.CS ---
Consult Pharmacy has been consulted to manage selected antiobiotic: Vancomycin Type of Consult: New start Suspected Infection: Skin/Soft tissue Prior Doses of Antibiotics Received/Current Regimen: Medications Vancomycin HCl 750 mg/ Sodium (Chloride) 265 mls @ 250 mls/hr IV Q24H DIAMOND Discontinued Medications Vancomycin HCl 1,250 mg/ (Sodium Chloride) 275 mls @ 167 mls/hr IV X1 ONE Stop: 12/06/20 18:38 Last Admin: 12/06/20 18:53 Dose: Infused Labs: Sodium 140 mmol/L (136-145) 12/06/20 15:45 Potassium 5.0 mmol/L (3.5-5.1) 12/06/20 15:45 Chloride 105 mmol/L (98-107) 12/06/20 15:45 Carbon Dioxide 29.0 mmol/L (21.0-32.0) 12/06/20 15:45 Anion Gap 6 (5-15) 12/06/20 15:45 BUN 57 mg/dL (7-18) H 12/06/20 15:45 Creatinine 1.74 mg/dL (0.55-1.02) H 12/06/20 15:45 Est GFR (MDRD) Af Amer 37 mL/min (>60) L 12/06/20 15:45 Est GFR (MDRD) Non-Af 30 mL/min (>60) L 12/06/20 15:45 BUN/Creatinine Ratio 32.8 RATIO (10-20) H 12/06/20 15:45 Glucose 191 mg/dL (74-106) H 12/06/20 15:45 Weight used for dosin.2 kg Estimated Creatinine Clearance: 37 Goal Trough: 10-15 mcg/mL Pharmacy Plan for Drug Dosing: Pharmacy Service will continue to monitor and adjust dosing as required. Follow-Up Labs: Trough Vancomycin Labs to be done on [date and time ordered]: 12/08/20 @1632
[2020-12-06 21:14] LABS: Lactic Acid 2.4 mmol/L (0.4-1.9)
[2020-12-06] MEDS: hydrALAZINE 20 MG/ML Vial 5 MG IV (21:46)
[2020-12-06 22:10] LABS: M R Staph aureus DNA By PCR Negative (Negative); Probe Check PASS; Specimen Processing Control PASS; Staph aureus DNA By PCR NEGATIVE (Negative)
[2020-12-07] VITALS (12 sets, daily range): BP systolic 150–155; BP diastolic 36–80; PULSE 48–65; RESP 16–22; TEMP 36.6–37.2; O2SAT 94–98
[2020-12-07] MEDS: oxyCODONE 5 MG Tablet 10 MG PO ×3 (02:43→20:07)
[2020-12-07] MEDS: Levothyroxine 25 MCG TABLET PO (05:22)
[2020-12-07 06:01] LABS: Absolute Lymphocyte Count 1.58 X10^3/uL (0.83-4.51); Absolute Neutrophil Count 14.4 X10^3/uL (2.0-7.7); Basophil# 0.03 X10^3/uL; Basophil% 0.2 % (0-1); Eosinophil# 0.01 X10^3/uL; Eosinophils% 0.1 % (0-5); Hematocrit 37.5 % (37-47); Lymphocyte # 1.58 X10^3/ul (4.0); Lymphocyte % 9.2 % (19-41); Mean Corp Hgb Conc 29.3 g/dL (32-36); Mean Corpuscular Hgb 27.3 pg (27.0-32.0); Mean Corpuscular Volume 93.1 fL (81-99); Monocyte% 5.8 % (0-10); NRBC Flagged by Analyzer 0 % (0-5); Neutrophil # 14.43 X10^3/uL (2.7-7.7); Neutrophil % 84.1 % (47-70); POSITIVE MORPHOLOGY YES; Platelet Count 282 K/mm3 (150-450); RBC Distribution Width CV 24.7 % (11.6-14.6); Red Blood Count 4.03 M/mm3 (4.2-5.4); White Blood Count 17.2 K/mm3 (4.4-11.0)
[2020-12-07 06:02] LABS: Differential Indicated SCAN CRITERIA MET
[2020-12-07 06:28] LABS: Lactic Acid 1.6 mmol/L (0.4-1.9)
[2020-12-07 06:28] LABS: Anion Gap 6 (5-15); BUN 47 mg/dL (7-18); BUN/Creat Ratio 31.3 RATIO (10-20); Calcium,Total 8.1 mg/dL (8.5-10.1); Chloride 108 mmol/L (98-107); EST Glomerular Filtration Rate 36 mL/min (>60); Est Glom Filt Rate - Afr Amer 44 mL/min (>60); Glucose 96 mg/dL (74-106); Potassium 4.5 mmol/L (3.5-5.1); Sodium Level 140 mmol/L (136-145)
[2020-12-07 06:32] LABS: Hypochromasia RARE
[2020-12-07] MEDS: Ipratropium/Albuterol Sulfate 3 ML AMPUL.NEB INHALATION ×3 (07:27→20:00)
[2020-12-07] MEDS: Budesonide Respules 0.5 MG/2 ML AMPUL.NEB. INHALATION ×2 (07:27→20:00)
[2020-12-07] MEDS: Calcium Carb/Vitamin D 1 TABLET Tablet PO (08:35)
[2020-12-07] MEDS: Potassium Chloride Oral Tablet 10 MEQ PO ×2 (08:35→18:02)
--- NOTE | 2020-12-07 09:03 | PN_ITS ---
Patient Problems: Active and Suspected Problems (Last Reviewed 12/06/20 @ 17:[address] Juan Blunt, DO) Fracture of right great toe (Acute) Cellulitis of right leg (Acute) Subjective: Patient was seen this morning for follow up on right 1st toe/foot. She relates there is pain to the 1st toe. Had some bleeding from the toe overnight, dressing was reinforced. Otherwise she has no other complaints at this time. No f/c/n/v. - Physical Exam Vitals/I&O's: Vital Signs Temp Pulse Resp BP Pulse Ox 98.9 F 55 L 20 H 150/68 H 98 12/07/20 08:22 12/07/20 08:22 12/07/20 08:22 12/07/20 08:22 12/07/20 08:22 Oxygen Flow Rate (L/min) 4 Oxygen Delivery Method Nasal Cannula Weight: 82.2 kg Body Mass Index (BMI) 36.6 Finger Stick Blood Glucose 112 Intake and Output for Last 24 Hours 12/05/20 12/06/20 12/07/20 23:59 23:59 23:59 Intake Total 1275 / 1275 Output Total 650 / 650 Balance 1275 / 1275 -650 / -650 General: Alert, Oriented x3, Cooperative, No apparent distress Cardiovascular: - - CFT < 2 seconds to all toes, there is no evidence of acute ischemia to the foot or ankle bilateral. She relates to some right leg tenderness, but relates it is much better today. Extremities: Capillary Refill Less than 3 Seconds, - - There is laceration to the proximal 1st toenail bed with absent toenail, laceration down to bone, there is ecchymosis to the 1st toe, the cellulitis and edema are much less today, there is no streaking, no maloder, no visible abscess to the foot or ankle bilaterally. Skin: Ulcer/ Wound - Right 1st toe with no active bleeding at this time. There are superficial cracks/wounds to the heel with no evidence of infection. Musculoskeletal: Tenderness - There is POP to the right 1st toe c/w injury. There is no significant deviation/deformity of the right 1st toe. There are chronic hammer toes bilateral. Psych/Mental Status: Normal Affect, Appropriate, Alert and oriented to time, place, person, mood and affect Laboratory Results 12/06/20 15:45: WBC 15.4 H, RBC 4.10 L, Hgb 11.2 L, Hct 38.5, MCV 93.9, MCH 27.3, MCHC 29.1 L, RDW Std Deviation 83.5 H, RDW Coeff of Jeff 24.5 H, Plt Count 220, MPV 12.5 H, Immature Gran % (Auto) 0.600, Neut % (Auto) 96.1 H, Lymph % (Auto) 2.3 L, [place] % (Auto) 0.8, Eos % (Auto) 0.1, Baso % (Auto) 0.1, Absolute Neuts (auto) 14.8 H, Absolute Lymphs (auto) 0.36 L, Nucleated RBC % 0, Differential Comment SEE COMMENT, Platelet Estimate ADEQUATE, RBC Morphology N CHROM, Anisocytosis 1+, Macrocytosis RARE, Ovalocytes RARE, ESR 10 12/06/20 15:45: Sodium 140, Potassium 5.0, Chloride 105, Carbon Dioxide 29.0, Anion Gap 6, BUN 57 H, Creatinine 1.74 H, Estim Creat Clear Calc 36.97, Est GFR (MDRD) Af Amer 37 L, Est GFR (MDRD) Non-Af 30 L, BUN/Creatinine Ratio 32.8 H, Glucose 191 H, Calcium 8.3 L, C-React Prot Ext Range 10.50 H 12/06/20 15:45: Lactic Acid 2.2 H* 12/06/20 18:40: S.aureus Protein A PCR NEGATIVE, MRSA (PCR) Negative 12/06/20 20:16: Lactic Acid 2.4 H* 12/06/20 20:52: POC Glucose 155 H 12/07/20 05:35: Lactic Acid 1.6 12/07/20 05:41: WBC 17.2 H, RBC 4.03 L, Hgb 11.0 L, Hct 37.5, MCV 93.1, MCH 27.3, MCHC 29.3 L, RDW Std Deviation 83.0 H, RDW Coeff of Jeff 24.7 H, Plt Count 282, MPV 13.0 H, Immature Gran % (Auto) 0.600, Neut % (Auto) 84.1 H, Lymph % (Auto) 9.2 L, [place] % (Auto) 5.8, Eos % (Auto) 0.1, Baso % (Auto) 0.2, Absolute Neuts (auto) 14.4 H, Absolute Lymphs (auto) 1.58, Nucleated RBC % 0, Hypochromasia RARE 12/07/20 05:41: Sodium 140, Potassium 4.5, Chloride 108 H, Carbon Dioxide 26.0, Anion Gap 6, BUN 47 H, Creatinine 1.50 H, Estim Creat Clear Calc 42.70, Est GFR (MDRD) Af Amer 44 L, Est GFR (MDRD) Non-Af 36 L, BUN/Creatinine Ratio 31.3 H, Glucose 96, Calcium 8.1 L Current Medications Acetaminophen (Acetaminophen 325 Mg Tablet) 650 mg PO Q6H PRN PRN PRN Reason: Pain Score 1-10/Temp > 100.7 F Albuterol Sulfate (Albuterol 2.5 Mg/3 Ml Vial.Neb.) 2.5 mg INHALATION Q4H PRN PRN PRN Reason: SOB &/OR WHEEZING Albuterol/Ipratropium (Ipratropium/Albuterol Sulfate 3 Ml Ampul.Neb) 3 ml INHALATION Q6HWA.RT [facility] Last Admin: 12/07/20 07:27 Dose: 3 ml Documented by: Amiodarone HCl (Amiodarone 200 Mg Tablet) 200 mg PO DAILY [facility] Atorvastatin Calcium (Atorvastatin Calcium 80 Mg Tablet) 80 mg PO QHS [facility] Last Admin: 12/06/20 20:45 Dose: 80 mg Documented by: Budesonide (Budesonide Respules 0.5 Mg/2 Ml Ampul.Neb.) 0.5 mg INHALATION Q12H.RT [facility] Last Admin: 12/07/20 07:27 Dose: 0.5 mg Documented by: Calcium/Vitamin D (Calcium Carb/Vitamin D 1 Tablet Tablet) 1 tablet PO DAILYCM [facility] Last Admin: 12/07/20 08:35 Dose: 1 tablet Documented by: Cyanocobalamin (Cyanocobalamin 500 Mcg Tablet) 1,000 mcg PO DAILY [facility] Dextrose (Dextrose 50%-Water 25 Gm/50 Ml Disp.Syrin) 0 gm IV X1 PRN; Protocol PRN Reason: Hypoglycemia Fluticasone Propionate (Fluticasone 0.05% 1 [place] Nasal.Sry) 2 spray NASAL DAILY [facility] Furosemide (Furosemide 40 Mg Tablet) 40 mg PO 1800 [facility] Furosemide (Furosemide 80 Mg Tablet) 80 mg PO QAM [facility] Glucagon (Glucagon 1 Mg/Ml Syringe) 1 mg IM .X1 PRN PRN Reason: Hypoglycemia Hydralazine HCl (Hydralazine 20 Mg/Ml Vial) 5 mg IV Q4H PRN PRN PRN Reason: sbp > 160 or DBP > 120 Last Admin: 12/06/20 21:46 Dose: 5 mg Documented by: Vancomycin IV Pharmacy to Dose (1 ea/ Sodium Chloride) 500 mls @ 250 mls/hr IV PRN PRN; Protocol PRN Reason: Rx to Dose Vancomycin HCl 750 mg/ Sodium (Chloride) 265 mls @ 250 mls/hr IV Q24H [facility] Insulin Glargine (Insulin Glargine 100 Units/Ml Pen) 40 units SC QHS [facility] Last Admin: 12/06/20 20:52 Dose: 40 u Documented by: Insulin Human Lispro (Insulin Lispro 100 Unit/Ml Insuln.Pen) 10 unit SC TIDCM [facility] Insulin Human Lispro (Insulin Lispro 100 Unit/Ml Insuln.Pen) 0 unit SC TIDCM [facility]; Protocol Lactobacillus Acidophilus (Lactobacillus Acidophilus) 1 tablet PO DAILY [facility] Levothyroxine Sodium (Levothyroxine 25 Mcg Tablet) 25 mcg PO DAILY@0600 [facility] Last Admin: 12/07/20 05:22 Dose: 25 mcg Documented by: Lisinopril (Lisinopril 10 Mg Tablet) 10 mg PO DAILY [facility] Metoprolol Tartrate (Metoprolol Tartrate 25 Mg Tablet) 25 mg PO BID [facility] Last Admin: 12/06/20 20:46 Dose: 25 mg Documented by: Nitroglycerin (Nitroglycerin (Inpatient Use) 0.4 Mg Tab.Subl) 0.4 mg SUBLINGUAL Q5M PRN PRN Reason: chest pain Nutritional Formula (Lactose Free) (Glucerna Shake 120 Ml Liquid) 120 ml PO 4X/DAY [facility] Nystatin (Nystatin Powder 15gm Bottle) 1 applic TOPICAL BID [facility]; Protocol Last Admin: 12/06/20 20:46 Dose: 1 applicatio Documented by: Ondansetron HCl (Ondansetron 4 Mg/2 Ml Vial) 4 mg IV Q8H PRN PRN PRN Reason: NAUSEA/VOMITING Oxycodone HCl (Oxycodone 5 Mg Tablet) 10 mg PO TID PRN PRN PRN Reason: PAIN 1-1010 Last Admin: 12/07/20 02:43 Dose: 10 mg Documented by: Pantoprazole Sodium (Pantoprazole Sodium 40 Mg Tablet) 40 mg PO DAILY [facility] Paroxetine HCl (Paroxetine 20 Mg Tablet) 40 mg PO DAILY [facility] Polysaccharide Iron Complex (Iron Polysaccharide Complex 150 Mg Capsule) 150 mg PO BID@1200,1700 [facility] Potassium Chloride (Potassium Chloride Oral Tablet 10 Meq) 10 meq PO BIDCM [facility] Last Admin: 12/07/20 08:35 Dose: 10 meq Documented by: Pramipexole Dihydrochloride (Pramipexole Di-Hcl 1 Mg Tablet) 1 mg PO QHS [facility] Last Admin: 12/06/20 20:50 Dose: 1 mg Documented by: Sodium Chloride (0.9% Saline Lock 10 Ml Syringe) 10 - 40 ml IV UD PRN PRN Reason: SALINE FLUSH Medical Necessity - Tobacco Use Smoking Status: Former smoker Assessment/Plan All Active Problems (Last Reviewed 12/06/20 @ 17:[address] Juan Blunt, DO) Fracture of right great toe (Acute) Cellulitis of right leg (Acute) Right 1st toe distal phalanx fracture - open, w/ laceration down to bone and lysis of the 1st toenail Cellulitis right foot, concern for osteomyelitis right 1st toe Diabetes with peripheral neuropathy Peripheral vascular disease Multiple comorbidities Reviewed diagnostic data. WBC remains elevated, lactic acid decreased. Clinically right foot much improved. Culture has been obtained right 1st toe - MRSA PCR DNA negative for MRSA or staph, otherwise culture results pending. Patient on IV Vancomycin. MRI has been ordered and is pending. Vascular studies ordered and pending. No weightbearing right foot. Podiatry will continue to follow closely.
[2020-12-07] MEDS: Insulin Lispro 100 UNIT/ML INSULN.PEN 10 UNIT SC ×3 (09:18→18:00)
[2020-12-07 09:21] LABS: Bedside Glucose 78 mg/dL (70-110)
[2020-12-07] MEDS: Fluticasone 0.05% 1 SPRAY NASAL.SRY 2 SPRAY NASAL (12:20)
[2020-12-07] MEDS: Amiodarone 200 MG Tablet PO (12:22)
[2020-12-07] MEDS: Furosemide 80 MG Tablet PO (12:24)
[2020-12-07] MEDS: Metoprolol Tartrate 25 MG Tablet PO (12:25)
[2020-12-07] MEDS: Nystatin Powder 15gm Bottle 1 APPLIC TOPICAL ×2 (12:26→21:09)
[2020-12-07] MEDS: Pantoprazole Sodium 40 MG Tablet PO (12:29)
[2020-12-07] MEDS: Cyanocobalamin 500 MCG Tablet 1000 MCG PO (12:29)
[2020-12-07] MEDS: Lisinopril 10 MG Tablet PO (12:30)
[2020-12-07] MEDS: Paroxetine 20 MG Tablet 40 MG PO (12:31)
[2020-12-07 12:45] LABS: Bedside Glucose 92 mg/dL (70-110)
--- NOTE | 2020-12-07 13:04 | PN_ITS ---
Patient Problems: Active and Suspected Problems (Last Reviewed 12/06/20 @ 17:[address] Juan Blunt, DO) Fracture of right great toe (Acute) Cellulitis of right leg (Acute) Subjective: Feels good. No shortness of breath. Vitals/I&O's: Vital Signs Temp Pulse Resp BP Pulse Ox 37.2 C 65 20 H 150/68 H 98 12/07/20 08:22 12/07/20 12:25 12/07/20 08:22 12/07/20 12:25 12/07/20 08:22 Oxygen Flow Rate (L/min) 4 Oxygen Delivery Method Nasal Cannula Weight: 82.2 kg Body Mass Index (BMI) 36.6 Finger Stick Blood Glucose 112 Intake and Output for Last 24 Hours 12/05/20 12/06/20 12/07/20 23:59 23:59 23:59 Intake Total 1275 / 1275 Output Total 650 / 650 Balance 1275 / 1275 -650 / -650 General: Alert, No apparent distress, - - no respiratory distress. no conversational dyspnea HEENT: Atraumatic, Normocephalic Oral: Moist Mucosa, No Gingival or Mucosal Lesions/ Ulcerations Neck: No Nodes, Thyroid Normal Size and Texture Lungs: Clear to auscultation, Normal air movement, No rhonchi, No wheeze, No rales Cardiovascular: Regular rate, Regular Rhythm, Normal S1, Normal S2, No murmurs Abdomen: Bowel Sounds Present, Soft, Non Tender, Non-Distended, No Hepato- splenomegaly Extremities: No Calf Tenderness, Edema Skin: - - feet wrapped--did not remove. 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 Laboratory Results 12/06/20 15:45: WBC 15.4 H, RBC 4.10 L, Hgb 11.2 L, Hct 38.5, MCV 93.9, MCH 27.3, MCHC 29.1 L, RDW Std Deviation 83.5 H, RDW Coeff of Jeff 24.5 H, Plt Count 220, MPV 12.5 H, Immature Gran % (Auto) 0.600, Neut % (Auto) 96.1 H, Lymph % (Auto) 2.3 L, [place] % (Auto) 0.8, Eos % (Auto) 0.1, Baso % (Auto) 0.1, Absolute Neuts (auto) 14.8 H, Absolute Lymphs (auto) 0.36 L, Nucleated RBC % 0, Differential Comment SEE COMMENT, Platelet Estimate ADEQUATE, RBC Morphology N CHROM, Anisocytosis 1+, Macrocytosis RARE, Ovalocytes RARE, ESR 10 12/06/20 15:45: Sodium 140, Potassium 5.0, Chloride 105, Carbon Dioxide 29.0, Anion Gap 6, BUN 57 H, Creatinine 1.74 H, Estim Creat Clear Calc 36.97, Est GFR (MDRD) Af Amer 37 L, Est GFR (MDRD) Non-Af 30 L, BUN/Creatinine Ratio 32.8 H, Glucose 191 H, Calcium 8.3 L, C-React Prot Ext Range 10.50 H 12/06/20 15:45: Lactic Acid 2.2 H* 12/06/20 18:40: S.aureus Protein A PCR NEGATIVE, MRSA (PCR) Negative 12/06/20 20:16: Lactic Acid 2.4 H* 12/06/20 20:52: POC Glucose 155 H 12/07/20 05:35: Lactic Acid 1.6 12/07/20 05:41: WBC 17.2 H, RBC 4.03 L, Hgb 11.0 L, Hct 37.5, MCV 93.1, MCH 27.3, MCHC 29.3 L, RDW Std Deviation 83.0 H, RDW Coeff of Jeff 24.7 H, Plt Count 282, MPV 13.0 H, Immature Gran % (Auto) 0.600, Neut % (Auto) 84.1 H, Lymph % (Auto) 9.2 L, [place] % (Auto) 5.8, Eos % (Auto) 0.1, Baso % (Auto) 0.2, Absolute Neuts (auto) 14.4 H, Absolute Lymphs (auto) 1.58, Nucleated RBC % 0, Hypochromasia RARE 12/07/20 05:41: Sodium 140, Potassium 4.5, Chloride 108 H, Carbon Dioxide 26.0, Anion Gap 6, BUN 47 H, Creatinine 1.50 H, Estim Creat Clear Calc 42.70, Est GFR (MDRD) Af Amer 44 L, Est GFR (MDRD) Non-Af 36 L, BUN/Creatinine Ratio 31.3 H, Glucose 96, Calcium 8.1 L 12/07/20 09:10: POC Glucose 78 12/07/20 12:34: POC Glucose 92 Current Medications Acetaminophen (Acetaminophen 325 Mg Tablet) 650 mg PO Q6H PRN PRN PRN Reason: Pain Score 1-10/Temp > 100.7 F Albuterol Sulfate (Albuterol 2.5 Mg/3 Ml Vial.Neb.) 2.5 mg INHALATION Q4H PRN PRN PRN Reason: SOB &/OR WHEEZING Albuterol/Ipratropium (Ipratropium/Albuterol Sulfate 3 Ml Ampul.Neb) 3 ml INHALATION Q6HWA.RT [facility] Last Admin: 12/07/20 07:27 Dose: 3 ml Documented by: Amiodarone HCl (Amiodarone 200 Mg Tablet) 200 mg PO DAILY [facility] Last Admin: 12/07/20 12:22 Dose: 200 mg Documented by: Atorvastatin Calcium (Atorvastatin Calcium 80 Mg Tablet) 80 mg PO QHS [facility] Last Admin: 12/06/20 20:45 Dose: 80 mg Documented by: Budesonide (Budesonide Respules 0.5 Mg/2 Ml Ampul.Neb.) 0.5 mg INHALATION Q12H.RT [facility] Last Admin: 12/07/20 07:27 Dose: 0.5 mg Documented by: Calcium/Vitamin D (Calcium Carb/Vitamin D 1 Tablet Tablet) 1 tablet PO DAILYCM [facility] Last Admin: 12/07/20 08:35 Dose: 1 tablet Documented by: Cyanocobalamin (Cyanocobalamin 500 Mcg Tablet) 1,000 mcg PO DAILY [facility] Last Admin: 12/07/20 12:29 Dose: 1,000 mcg Documented by: Dextrose (Dextrose 50%-Water 25 Gm/50 Ml Disp.Syrin) 0 gm IV X1 PRN; Protocol PRN Reason: Hypoglycemia Fluticasone Propionate (Fluticasone 0.05% 1 [place] Nasal.Sry) 2 spray NASAL DAILY [facility] Last Admin: 12/07/20 12:20 Dose: 2 sprays Documented by: Furosemide (Furosemide 40 Mg Tablet) 40 mg PO 1800 [facility] Furosemide (Furosemide 80 Mg Tablet) 80 mg PO QAM [facility] Last Admin: 12/07/20 12:24 Dose: 80 mg Documented by: Glucagon (Glucagon 1 Mg/Ml Syringe) 1 mg IM .X1 PRN PRN Reason: Hypoglycemia Hydralazine HCl (Hydralazine 20 Mg/Ml Vial) 5 mg IV Q4H PRN PRN PRN Reason: sbp > 160 or DBP > 120 Last Admin: 12/06/20 21:46 Dose: 5 mg Documented by: Vancomycin IV Pharmacy to Dose (1 ea/ Sodium Chloride) 500 mls @ 250 mls/hr IV PRN PRN; Protocol PRN Reason: Rx to Dose Vancomycin HCl 750 mg/ Sodium (Chloride) 265 mls @ 250 mls/hr IV Q24H [facility] Insulin Glargine (Insulin Glargine 100 Units/Ml Pen) 40 units SC QHS [facility] Last Admin: 12/06/20 20:52 Dose: 40 u Documented by: Insulin Human Lispro (Insulin Lispro 100 Unit/Ml Insuln.Pen) 10 unit SC TIDCM [facility] Last Admin: 12/07/20 12:40 Dose: 10 u Documented by: Insulin Human Lispro (Insulin Lispro 100 Unit/Ml Insuln.Pen) 0 unit SC TIDCM [facility]; Protocol Last Admin: 12/07/20 12:39 Dose: Not Given Documented by: Lactobacillus Acidophilus (Lactobacillus Acidophilus) 1 tablet PO DAILY [facility] Last Admin: 12/07/20 12:22 Dose: 1 tablet Documented by: Levothyroxine Sodium (Levothyroxine 25 Mcg Tablet) 25 mcg PO DAILY@0600 [facility] Last Admin: 12/07/20 05:22 Dose: 25 mcg Documented by: Lisinopril (Lisinopril 10 Mg Tablet) 10 mg PO DAILY [facility] Last Admin: 12/07/20 12:30 Dose: 10 mg Documented by: Metoprolol Tartrate (Metoprolol Tartrate 25 Mg Tablet) 25 mg PO BID [facility] Last Admin: 12/07/20 12:25 Dose: 25 mg Documented by: Nitroglycerin (Nitroglycerin (Inpatient Use) 0.4 Mg Tab.Subl) 0.4 mg SUBLINGUAL Q5M PRN PRN Reason: chest pain Nutritional Formula (Lactose Free) (Glucerna Shake 120 Ml Liquid) 120 ml PO 4X/DAY [facility] Last Admin: 12/07/20 12:23 Dose: Not Given Documented by: Nystatin (Nystatin Powder 15gm Bottle) 1 applic TOPICAL BID [facility]; Protocol Last Admin: 12/07/20 12:26 Dose: 1 applicatio Documented by: Ondansetron HCl (Ondansetron 4 Mg/2 Ml Vial) 4 mg IV Q8H PRN PRN PRN Reason: NAUSEA/VOMITING Oxycodone HCl (Oxycodone 5 Mg Tablet) 10 mg PO TID PRN PRN PRN Reason: PAIN 1-10 Last Admin: 12/07/20 11:37 Dose: 10 mg Documented by: Pantoprazole Sodium (Pantoprazole Sodium 40 Mg Tablet) 40 mg PO DAILY [facility] Last Admin: 12/07/20 12:29 Dose: 40 mg Documented by: Paroxetine HCl (Paroxetine 20 Mg Tablet) 40 mg PO DAILY [facility] Last Admin: 12/07/20 12:31 Dose: 40 mg Documented by: Polysaccharide Iron Complex (Iron Polysaccharide Complex 150 Mg Capsule) 150 mg PO BID@1200,1700 [facility] Potassium Chloride (Potassium Chloride Oral Tablet 10 Meq) 10 meq PO BIDCM [facility] Last Admin: 12/07/20 08:35 Dose: 10 meq Documented by: Pramipexole Dihydrochloride (Pramipexole Di-Hcl 1 Mg Tablet) 1 mg PO QHS [facility] Last Admin: 12/06/20 20:50 Dose: 1 mg Documented by: Sodium Chloride (0.9% Saline Lock 10 Ml Syringe) 10 - 40 ml IV UD PRN PRN Reason: SALINE FLUSH STROKE Vital Signs/Narrative: Vital Signs Pulse BP 12/07/20 12:25 65 150/68 H Medical Necessity - Tobacco Use Smoking Status: Former smoker Assessment/Plan All Active Problems (Last Reviewed 12/06/20 @ 17:[address] Juan Blunt, DO) Fracture of right great toe (Acute) Cellulitis of right leg (Acute) 1. Right lower extremity cellulitis Secondary to injury to her right toe were patient has a skin tear which is likely the nidus for the infection. Lactic acid was elevated, however, I do not feel that that is related with underlying sepsis or severe sepsis but more likely due to the patient's hypoxia that she presented with. MRI did not show any osteomyelitis. MRSA and MSSA screen negative. Wound with GNR Plan * Continue with vancomycin and add pip/tazo * Follow up culture and adjust abx accordingly * Podiatry following * Given the fracture to the distal phalanx, patient be nonweightbearing for now * consult ID for long-term recommendations 2. Right distal phalanx fracture Plan as above 3. Atrial fibrillation Plan as above plus continue with amiodarone and metoprolol. No anticoagulation at this time in case surgery necessary 4. Diabetes mellitus type 2 Blood glucose was 191 when she presented Plan * Continue with basal and prandial insulin. * Add sliding scale. * Check A1c 5. Acute hypoxic respiratory insufficiency Secondary to traveling via her electric wheelchair in the cold took her roughly an hour. Condenser may have not been functioning properly due to the cold, according to the patient. Patient is not in any duress at this time. Plan * Continue with bronchodilators. * No evidence of exacerbation to warrant steroids 6. VTE prophylaxis with SCDs until anticoagulation resumed. Inpatient E&M: [id number] [facility] L[facility]
[2020-12-07] MEDS: Iron Polysaccharide Complex 150 MG CAPSULE PO ×2 (13:58→18:02)
[2020-12-07] MEDS: Glucerna Shake 120 ML LIQUID PO (14:03)
[2020-12-07] MEDS: 0.9% Saline Lock 10 ML Syringe IV (15:55)
[2020-12-07 18:11] LABS: Bedside Glucose 105 mg/dL (70-110)
[2020-12-07] MEDS: Furosemide 40 MG Tablet PO (18:11)
[2020-12-07] MEDS: Acetaminophen 325 MG Tablet 650 MG PO (20:06)
[2020-12-07] MEDS: Atorvastatin Calcium 80 MG Tablet PO (21:09)
[2020-12-07] MEDS: Pramipexole Di-HCl 1 MG Tablet PO (21:09)
[2020-12-07 21:26] LABS: Bedside Glucose 112 mg/dL (70-110)
[2020-12-08] VITALS (11 sets, daily range): BP systolic 146–162; BP diastolic 44–64; PULSE 50–60; RESP 18–20; TEMP 36.9–37.5; O2SAT 92–95
[2020-12-08] MEDS: Levothyroxine 25 MCG TABLET PO (05:39)
[2020-12-08 06:34] LABS: Absolute Lymphocyte Count 1.12 X10^3/uL (0.83-4.51); Absolute Neutrophil Count 11.8 X10^3/uL (2.0-7.7); Basophil# 0.03 X10^3/uL; Basophil% 0.2 % (0-1); Differential Indicated SCAN CRITERIA MET; Eosinophil# 0.19 X10^3/uL; Eosinophils% 1.3 % (0-5); Hematocrit 39.7 % (37-47); Hemoglobin 11.6 g/dL (12.0-15.0); Lymphocyte # 1.12 X10^3/ul (4.0); Lymphocyte % 7.9 % (19-41); Mean Corp Hgb Conc 29.2 g/dL (32-36); Mean Corpuscular Hgb 27.3 pg (27.0-32.0); Mean Corpuscular Volume 93.4 fL (81-99); Monocyte# 1.08 X10^3/uL; Monocyte% 7.6 % (0-10); NRBC Flagged by Analyzer 0 % (0-5); Neutrophil # 11.75 X10^3/uL (2.7-7.7); Neutrophil % 82.4 % (47-70); POSITIVE MORPHOLOGY YES; Platelet Count 214 K/mm3 (150-450); RBC Distribution Width CV 24.8 % (11.6-14.6); RBC Distribution Width SD 83.4 fl (35.1-43.9); Red Blood Count 4.25 M/mm3 (4.2-5.4); White Blood Count 14.3 K/mm3 (4.4-11.0)
[2020-12-08 06:56] LABS: Polychromasia 1+
[2020-12-08 07:03] LABS: Anion Gap 5 (5-15); BUN 51 mg/dL (7-18); BUN/Creat Ratio 27.7 RATIO (10-20); Calcium,Total 8.4 mg/dL (8.5-10.1); Chloride 108 mmol/L (98-107); Creatinine, Serum 1.84 mg/dL (0.55-1.02); EST Glomerular Filtration Rate 28 mL/min (>60); Est Glom Filt Rate - Afr Amer 34 mL/min (>60); Estimated Creatinine Clearance 34.81 ml/min; Glucose 51 mg/dL (74-106); Potassium 3.9 mmol/L (3.5-5.1); Sodium Level 143 mmol/L (136-145)
[2020-12-08] MEDS: Ipratropium/Albuterol Sulfate 3 ML AMPUL.NEB INHALATION ×3 (07:41→19:33)
[2020-12-08] MEDS: Budesonide Respules 0.5 MG/2 ML AMPUL.NEB. INHALATION ×2 (07:42→19:33)
[2020-12-08 08:20] LABS: Bedside Glucose 50 mg/dL (70-110)
--- NOTE | 2020-12-08 08:43 | PCM.PN.HOSP ---
Patient Problems: Active and Suspected Problems (Last Reviewed 12/06/20 @ 17:[address] Juan Blunt, DO) Fracture of right great toe (Acute) Cellulitis of right leg (Acute) Reason for Visit: Follow-up for right first toe ulcer and surroundings foot and right lower leg cellulitis. Objective: No fever or chills. T-max 99.5 Fahrenheit. Patient has peripheral arterial disease Physical exam General: Alert, Oriented x3, Cooperative HEENT: Atraumatic, PERRLA, EOMI, Normocephalic Oral: No Gingival or Mucosal Lesions/ Ulcerations Neck: Supple, No JVD, Negative Carotid Bruits Lungs: Air entry diminished in bilateral lung bases. No crepitation/rhonchi Cardiovascular: Regular rate, Regular Rhythm, Normal S1, Normal S2, No murmurs Abdomen: Bowel Sounds Present, Soft, Non Tender, Non-Distended : No renal angle tenderness. No suprapubic tenderness. Extremities: No edema, Capillary Refill Less than 3 Seconds Skin: Ulcer over right great toe with surrounding redness and tenderness. Redness of right lower leg and foot. Musculoskeletal: Tenderness of right great toe. Neurological: Cranial nerves II-XII grossly intact, Deep Tendon Reflexes 2+/4 and Symmetrical, Neuro grossly intact Psych/Mental Status: Normal Affect, Appropriate. Vitals/I&O's: Vital Signs Temp Pulse Resp BP Pulse Ox 98.5 F 52 L 20 H 153/52 H 94 12/08/20 02:16 12/08/20 07:43 12/08/20 07:43 12/08/20 02:16 12/08/20 07:44 Oxygen Flow Rate (L/min) 3 Oxygen Delivery Method Nasal Cannula Weight: 181 lb 3.52 oz Body Mass Index (BMI) 36.6 Finger Stick Blood Glucose 112 Intake and Output for Last 24 Hours 12/06/20 12/07/20 12/08/20 23:59 23:59 23:59 Intake Total 1275 / 1275 1275 / 1275 50 / 50 Output Total 850 / 850 1550 / 1550 Balance 1275 / 1275 425 / 425 -1500 / -1500 Microbiology Past 72 Hours 12/06/20 18:40 Wound - Toe Gram Stain - Final 12/06/20 18:40 Wound - Toe Wound Culture - Preliminary Gram negative julieta 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 Laboratory Results 12/07/20 09:10: POC Glucose 78 12/07/20 12:34: POC Glucose 92 12/07/20 17:59: POC Glucose 105 12/07/20 21:07: POC Glucose 112 H 12/08/20 06:00: WBC 14.3 H, RBC 4.25, Hgb 11.6 L, Hct 39.7, MCV 93.4, MCH 27.3, MCHC 29.2 L, RDW Std Deviation 83.4 H, RDW Coeff of Jeff 24.8 H, Plt Count 214, MPV 12.0, Immature Gran % (Auto) 0.600, Neut % (Auto) 82.4 H, Lymph % (Auto) 7.9 L, [place] % (Auto) 7.6, Eos % (Auto) 1.3, Baso % (Auto) 0.2, Absolute Neuts (auto) 11.8 H, Absolute Lymphs (auto) 1.12, Nucleated RBC % 0, Polychromasia 1+ 12/08/20 06:00: Sodium 143, Potassium 3.9, Chloride 108 H, Carbon Dioxide 30.0, Anion Gap 5, BUN 51 H, Creatinine 1.84 H, Estim Creat Clear Calc 34.81, Est GFR (MDRD) Af Amer 34 L, Est GFR (MDRD) Non-Af 28 L, BUN/Creatinine Ratio 27.7 H, Glucose 51 L, Calcium 8.4 L 12/08/20 08:08: POC Glucose 50 L Current Medications Acetaminophen (Acetaminophen 325 Mg Tablet) 650 mg PO Q6H PRN PRN PRN Reason: Pain Score 1-10/Temp > 100.7 F Last Admin: 12/07/20 20:06 Dose: 650 mg Documented by: Albuterol Sulfate (Albuterol 2.5 Mg/3 Ml Vial.Neb.) 2.5 mg INHALATION Q4H PRN PRN PRN Reason: SOB &/OR WHEEZING Albuterol/Ipratropium (Ipratropium/Albuterol Sulfate 3 Ml Ampul.Neb) 3 ml INHALATION Q6HWA.RT DIAMOND Last Admin: 12/08/20 07:41 Dose: 3 ml Documented by: Amiodarone HCl (Amiodarone 200 Mg Tablet) 200 mg PO DAILY [facility] Last Admin: 12/07/20 12:22 Dose: 200 mg Documented by: Atorvastatin Calcium (Atorvastatin Calcium 80 Mg Tablet) 80 mg PO QHS [facility] Last Admin: 12/07/20 21:09 Dose: 80 mg Documented by: Budesonide (Budesonide Respules 0.5 Mg/2 Ml Ampul.Neb.) 0.5 mg INHALATION Q12H.RT [facility] Last Admin: 12/08/20 07:42 Dose: 0.5 mg Documented by: Calcium/Vitamin D (Calcium Carb/Vitamin D 1 Tablet Tablet) 1 tablet PO DAILYCM [facility] Last Admin: 12/07/20 08:35 Dose: 1 tablet Documented by: Cyanocobalamin (Cyanocobalamin 500 Mcg Tablet) 1,000 mcg PO DAILY [facility] Last Admin: 12/07/20 12:29 Dose: 1,000 mcg Documented by: Dextrose (Dextrose 50%-Water 25 Gm/50 Ml Disp.Syrin) 0 gm IV X1 PRN; Protocol PRN Reason: Hypoglycemia Fluticasone Propionate (Fluticasone 0.05% 1 [place] Nasal.Sry) 2 spray NASAL DAILY [facility] Last Admin: 12/07/20 12:20 Dose: 2 sprays Documented by: Furosemide (Furosemide 40 Mg Tablet) 40 mg PO 1800 [facility] Last Admin: 12/07/20 18:11 Dose: 40 mg Documented by: Furosemide (Furosemide 80 Mg Tablet) 80 mg PO QAM [facility] Last Admin: 12/07/20 12:24 Dose: 80 mg Documented by: Glucagon (Glucagon 1 Mg/Ml Syringe) 1 mg IM .X1 PRN PRN Reason: Hypoglycemia Hydralazine HCl (Hydralazine 20 Mg/Ml Vial) 5 mg IV Q4H PRN PRN PRN Reason: sbp > 160 or DBP > 120 Last Admin: 12/06/20 21:46 Dose: 5 mg Documented by: Vancomycin IV Pharmacy to Dose (1 ea/ Sodium Chloride) 500 mls @ 250 mls/hr IV PRN PRN; Protocol PRN Reason: Rx to Dose Vancomycin HCl 750 mg/ Sodium (Chloride) 265 mls @ 250 mls/hr IV Q24H [facility] Last Infusion: 12/07/20 20:10 Dose: Infused Documented by: Piperacillin Sod/Tazobactam (Sod 3.375 gm/ Sodium Chloride) 50 mls @ 12.5 mls/hr IV Q8 [facility] Last Admin: 12/08/20 05:38 Dose: 12.5 mls/hr Documented by: Insulin Glargine (Insulin Glargine 100 Units/Ml Pen) 40 units SC QHS [facility] Last Admin: 12/07/20 21:08 Dose: 40 u Documented by: Insulin Human Lispro (Insulin Lispro 100 Unit/Ml Insuln.Pen) 10 unit SC TIDCM [facility] Last Admin: 12/07/20 18:00 Dose: 10 u Documented by: Insulin Human Lispro (Insulin Lispro 100 Unit/Ml Insuln.Pen) 0 unit SC TIDCM [facility]; Protocol Last Admin: 12/07/20 18:00 Dose: Not Given Documented by: Lactobacillus Acidophilus (Lactobacillus Acidophilus) 1 tablet PO DAILY [facility] Last Admin: 12/07/20 12:22 Dose: 1 tablet Documented by: Levothyroxine Sodium (Levothyroxine 25 Mcg Tablet) 25 mcg PO DAILY@0600 [facility] Last Admin: 12/08/20 05:39 Dose: 25 mcg Documented by: Lisinopril (Lisinopril 10 Mg Tablet) 10 mg PO DAILY [facility] Last Admin: 12/07/20 12:30 Dose: 10 mg Documented by: Metoprolol Tartrate (Metoprolol Tartrate 25 Mg Tablet) 25 mg PO BID [facility] Last Admin: 12/07/20 21:12 Dose: Not Given Documented by: Nitroglycerin (Nitroglycerin (Inpatient Use) 0.4 Mg Tab.Subl) 0.4 mg SUBLINGUAL Q5M PRN PRN Reason: chest pain Nutritional Formula (Lactose Free) (Glucerna Shake 120 Ml Liquid) 120 ml PO 4X/DAY [facility] Last Admin: 12/07/20 21:05 Dose: Not Given Documented by: Nystatin (Nystatin Powder 15gm Bottle) 1 applic TOPICAL BID [facility]; Protocol Last Admin: 12/07/20 21:09 Dose: 1 applicatio Documented by: Ondansetron HCl (Ondansetron 4 Mg/2 Ml Vial) 4 mg IV Q8H PRN PRN PRN Reason: NAUSEA/VOMITING Oxycodone HCl (Oxycodone 5 Mg Tablet) 10 mg PO TID PRN PRN PRN Reason: PAIN 1-07/26 Last Admin: 12/07/20 20:07 Dose: 10 mg Documented by: Pantoprazole Sodium (Pantoprazole Sodium 40 Mg Tablet) 40 mg PO DAILY [facility] Last Admin: 12/07/20 12:29 Dose: 40 mg Documented by: Paroxetine HCl (Paroxetine 20 Mg Tablet) 40 mg PO DAILY [facility] Last Admin: 12/07/20 12:31 Dose: 40 mg Documented by: Polysaccharide Iron Complex (Iron Polysaccharide Complex 150 Mg Capsule) 150 mg PO BID@1200,1700 [facility] Last Admin: 12/07/20 18:02 Dose: 150 mg Documented by: Potassium Chloride (Potassium Chloride Oral Tablet 10 Meq) 10 meq PO BIDCM [facility] Last Admin: 12/07/20 18:02 Dose: 10 meq Documented by: Pramipexole Dihydrochloride (Pramipexole Di-Hcl 1 Mg Tablet) 1 mg PO QHS [facility] Last Admin: 12/07/20 21:09 Dose: 1 mg Documented by: Sodium Chloride (0.9% Saline Lock 10 Ml Syringe) 10 - 40 ml IV UD PRN PRN Reason: SALINE FLUSH Last Admin: 12/07/20 15:55 Dose: 10 ml Documented by: STROKE Vital Signs/Narrative: Vital Signs Pulse Resp Pulse Ox 12/08/20 07:44 94 12/08/20 07:43 52 L 20 H Medical Necessity - Tobacco Use Smoking Status: Former smoker Assessment/Plan All Active Problems (Last Reviewed 12/06/20 @ 17:[address] Juan Blunt, ) Fracture of right great toe (Acute) Cellulitis of right leg (Acute) 1. Right lower extremity cellulitis secondary to injury to right great toe/skin tear, need is further infection. Lactic acid was elevated but thought to be secondary to patient's hypoxia. MRI did not show osteomyelitis. MRSA and MSSA screen negative. Lactic acid was elevated, however, I do not feel that that is related with underlying sepsis or severe sepsis but more likely due to the patient's hypoxia that she presented with. 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 MRI did not show any osteomyelitis. MRSA and MSSA screen negative. Seen by ID recommended to continue vancomycin and Zosyn. 2. Right great toe distal phalanx fracture with peripheral arterial disease: Seen by casting coordinator. Patient also had great toenail avulsion and onycholysis. Vascular studies has been ordered and is pending. 3. Chronic atrial fibrillation continue with amiodarone and metoprolol. No anticoagulation at this time in case surgery necessary 4. Diabetes mellitus type 2 with diabetic neuropathy Blood glucose was 191 at time of admission. Currently 120. A1c is ordered. Continue basal and bolus insulin. 5. Acute hypoxic respiratory insufficiency: On 4 L of oxygen. Patient states is due to traveling via her electric wheelchair in the cold took her roughly an hour. Continue with bronchodilators. No evidence of exacerbation to warrant steroids 6. CKD stage III: Creatinine varies from 1.5-1.8. Currently creatinine went up from 1.4-1.84. We will hold the Lasix VTE prophylaxis with SCDs until anticoagulation resumed. Inpatient E&M: 42080 Subs Hosp L2
[2020-12-08] MEDS: Insulin Lispro 100 UNIT/ML INSULN.PEN 10 UNIT SC ×2 (08:58→12:10)
[2020-12-08] MEDS: Calcium Carb/Vitamin D 1 TABLET Tablet PO (08:58)
[2020-12-08] MEDS: Potassium Chloride Oral Tablet 10 MEQ PO ×2 (08:58→17:19)
--- NOTE | 2020-12-08 10:08 | NURSING ---
wound photo: right great toe
--- NOTE | 2020-12-08 10:45 | CASEMGMT ---
RN MARANDA Face to Face with patient for initial transition planning/care coordination assessment. RN CM introduced self and role at [facility]. Patient sitting in chair, alert and oriented. Patient willing to participate in assessment and is able to answer all questions appropriately. Care providers, pharmacy, and demographics verified. Patient wishes to discharge home, denies need for home health at this time. Patient states she has no further needs or concerns at this time. CM to follow for discharge planning needs that may arise. PCP: Carolyn [facility]ER Specialists: Jenelle, box printer; Maria D, occupational hygienist; Mariam, drug abuse resistance education officer; Brenda, forest fire control officer; Sofia, GI Preferred Pharmacy: [facility] Insurance: [employer] Prescription Benefit: Yes Living Will/HPOA: none LNOK: daughter Living Arrangements: Patient lives alone in a first floor apartment with no steps to enter. Patient states she is independent at home. Transportation: [facility] Van or neighbor DME/HHC: Patient states she has shower chair, raised toilet, cane, walker, grab bars, electric scooter, cpap, nebulizer, and home oxygen [facility] lpm. [facility]. Disposition Plan: Patient to discharge home with family support and follow-up plans in place. Will monitor for need for HHC at discharge. [place] PAL, RN, CM
[2020-12-08] MEDS: Paroxetine 20 MG Tablet 40 MG PO (10:52)
[2020-12-08] MEDS: Pantoprazole Sodium 40 MG Tablet PO (10:52)
[2020-12-08] MEDS: Amiodarone 200 MG Tablet PO (10:52)
[2020-12-08] MEDS: Iron Polysaccharide Complex 150 MG CAPSULE PO ×2 (10:52→17:19)
[2020-12-08] MEDS: Fluticasone 0.05% 1 SPRAY NASAL.SRY 2 SPRAY NASAL (10:52)
[2020-12-08] MEDS: Cyanocobalamin 500 MCG Tablet 1000 MCG PO (10:52)
[2020-12-08] MEDS: Metoprolol Tartrate 25 MG Tablet PO ×2 (10:52→21:09)
[2020-12-08] MEDS: Furosemide 80 MG Tablet PO (10:52)
[2020-12-08] MEDS: Lisinopril 10 MG Tablet PO (10:52)
[2020-12-08] MEDS: 0.9% Saline Lock 10 ML Syringe IV ×3 (10:53→18:22)
[2020-12-08] MEDS: Nystatin Powder 15gm Bottle 1 APPLIC TOPICAL ×2 (10:53→21:10)
--- NOTE | 2020-12-08 12:04 | PN_ITS ---
Patient Problems: Active and Suspected Problems (Last Reviewed 12/06/20 @ 17:[address] Juan Blunt, DO) Fracture of right great toe (Acute) Cellulitis of right leg (Acute) Subjective: Patient was seen this morning for follow up on right 1st toe fracture and nail avulsion with infection. She relates there is pain to the 1st toe. She is on antibiotics. She also complains of left heel pain and relates she had a dressing applied over the weekend. She denies f/c/n/v. She had an MRI completed and did not go for her vascular studies yet. - Physical Exam Vitals/I&O's: Vital Signs Temp Pulse Resp BP Pulse Ox 98.7 F 60 18 162/64 H 95 12/08/20 08:52 12/08/20 10:52 12/08/20 08:52 12/08/20 08:52 12/08/20 08:52 Oxygen Flow Rate (L/min) 3.5 Oxygen Delivery Method Nasal Cannula Weight: 82.2 kg Body Mass Index (BMI) 36.6 Finger Stick Blood Glucose 112 Intake and Output for Last 24 Hours 12/06/20 12/07/20 12/08/20 23:59 23:59 23:59 Intake Total 1275 / 1275 1275 / 1275 100 / 100 Output Total 850 / 850 1550 / 1550 Balance 1275 / 1275 425 / 425 -1450 / -1450 General: Alert, Oriented x3, Cooperative Extremities: No cyanosis, Capillary Refill Less than 3 Seconds, Diminished Peripheral Pulses, Edema Skin: Ulcer/ Wound - nail avulsion right hallux with hematogenous drainage stable only. no visualized purulence, odor, necrosis or exposed bone noted. left heel fissure (posterior) w/ skin discontinuity and hematogenous drainage. BLE skin is hairless, atrophic, and thin Musculoskeletal: No Tenderness to Palpation of Joints or Extremities, Muscle Wasting, Tenderness - pain to palpate right hallux nail avulsion site and left heel fissure site without bogginess or fluctuance noted. hypersensativity noted to light touch.compartments remain soft bilateral lower extremities, - - dorsal contraction of all digits x 10 lower extremity. 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 Laboratory Results 12/07/20 12:34: POC Glucose 92 12/07/20 17:59: POC Glucose 105 12/07/20 21:07: POC Glucose 112 H 12/08/20 06:00: WBC 14.3 H, RBC 4.25, Hgb 11.6 L, Hct 39.7, MCV 93.4, MCH 27.3, MCHC 29.2 L, RDW Std Deviation 83.4 H, RDW Coeff of Jeff 24.8 H, Plt Count 214, MPV 12.0, Immature Gran % (Auto) 0.600, Neut % (Auto) 82.4 H, Lymph % (Auto) 7.9 L, [place] % (Auto) 7.6, Eos % (Auto) 1.3, Baso % (Auto) 0.2, Absolute Neuts (auto) 11.8 H, Absolute Lymphs (auto) 1.12, Nucleated RBC % 0, Polychromasia 1+ 12/08/20 06:00: Sodium 143, Potassium 3.9, Chloride 108 H, Carbon Dioxide 30.0, Anion Gap 5, BUN 51 H, Creatinine 1.84 H, Estim Creat Clear Calc 34.81, Est GFR (MDRD) Af Amer 34 L, Est GFR (MDRD) Non-Af 28 L, BUN/Creatinine Ratio 27.7 H, Glucose 51 L, Calcium 8.4 L 12/08/20 08:08: POC Glucose 50 L Current Medications Acetaminophen (Acetaminophen 325 Mg Tablet) 650 mg PO Q6H PRN PRN PRN Reason: Pain Score 1-10/Temp > 100.7 F Last Admin: 12/07/20 20:06 Dose: 650 mg Documented by: Albuterol Sulfate (Albuterol 2.5 Mg/3 Ml Vial.Neb.) 2.5 mg INHALATION Q4H PRN PRN PRN Reason: SOB &/OR WHEEZING Albuterol/Ipratropium (Ipratropium/Albuterol Sulfate 3 Ml Ampul.Neb) 3 ml INHALATION Q6HWA.RT [facility] Last Admin: 12/08/20 07:41 Dose: 3 ml Documented by: Amiodarone HCl (Amiodarone 200 Mg Tablet) 200 mg PO DAILY [facility] Last Admin: 12/08/20 10:52 Dose: 200 mg Documented by: Atorvastatin Calcium (Atorvastatin Calcium 80 Mg Tablet) 80 mg PO QHS [facility] Last Admin: 12/07/20 21:09 Dose: 80 mg Documented by: Budesonide (Budesonide Respules 0.5 Mg/2 Ml Ampul.Neb.) 0.5 mg INHALATION Q12H.RT [facility] Last Admin: 12/08/20 07:42 Dose: 0.5 mg Documented by: Calcium/Vitamin D (Calcium Carb/Vitamin D 1 Tablet Tablet) 1 tablet PO DAILYCM [facility] Last Admin: 12/08/20 08:58 Dose: 1 tablet Documented by: Cyanocobalamin (Cyanocobalamin 500 Mcg Tablet) 1,000 mcg PO DAILY [facility] Last Admin: 12/08/20 10:52 Dose: 1,000 mcg Documented by: Dextrose (Dextrose 50%-Water 25 Gm/50 Ml Disp.Syrin) 0 gm IV X1 PRN; Protocol PRN Reason: Hypoglycemia Fluticasone Propionate (Fluticasone 0.05% 1 [place] Nasal.Sry) 2 spray NASAL DAILY [facility] Last Admin: 12/08/20 10:52 Dose: 2 sprays Documented by: Furosemide (Furosemide 40 Mg Tablet) 40 mg PO 1800 [facility] Last Admin: 12/07/20 18:11 Dose: 40 mg Documented by: Furosemide (Furosemide 80 Mg Tablet) 80 mg PO QAM [facility] Last Admin: 12/08/20 10:52 Dose: 80 mg Documented by: Glucagon (Glucagon 1 Mg/Ml Syringe) 1 mg IM .X1 PRN PRN Reason: Hypoglycemia Hydralazine HCl (Hydralazine 20 Mg/Ml Vial) 5 mg IV Q4H PRN PRN PRN Reason: sbp > 160 or DBP > 120 Last Admin: 12/06/20 21:46 Dose: 5 mg Documented by: Vancomycin IV Pharmacy to Dose (1 ea/ Sodium Chloride) 500 mls @ 250 mls/hr IV PRN PRN; Protocol PRN Reason: Rx to Dose Vancomycin HCl 750 mg/ Sodium (Chloride) 265 mls @ 250 mls/hr IV Q24H [facility] Last Infusion: 12/07/20 20:10 Dose: Infused Documented by: Piperacillin Sod/Tazobactam (Sod 3.375 gm/ Sodium Chloride) 50 mls @ 12.5 mls/hr IV Q8 [facility] Last Infusion: 12/08/20 09:38 Dose: Infused Documented by: Insulin Glargine (Insulin Glargine 100 Units/Ml Pen) 40 units SC QHS [facility] Last Admin: 12/07/20 21:08 Dose: 40 u Documented by: Insulin Human Lispro (Insulin Lispro 100 Unit/Ml Insuln.Pen) 10 unit SC TIDCM [facility] Last Admin: 12/08/20 08:58 Dose: 10 u Documented by: Insulin Human Lispro (Insulin Lispro 100 Unit/Ml Insuln.Pen) 0 unit SC TIDCM [facility]; Protocol Last Admin: 12/08/20 08:55 Dose: Not Given Documented by: Lactobacillus Acidophilus (Lactobacillus Acidophilus) 1 tablet PO DAILY [facility] Last Admin: 12/08/20 08:58 Dose: 1 tablet Documented by: Levothyroxine Sodium (Levothyroxine 25 Mcg Tablet) 25 mcg PO DAILY@0600 [facility] Last Admin: 12/08/20 05:39 Dose: 25 mcg Documented by: Lisinopril (Lisinopril 10 Mg Tablet) 10 mg PO DAILY [facility] Last Admin: 12/08/20 10:52 Dose: 10 mg Documented by: Metoprolol Tartrate (Metoprolol Tartrate 25 Mg Tablet) 25 mg PO BID [facility] Last Admin: 12/08/20 10:52 Dose: 25 mg Documented by: Nitroglycerin (Nitroglycerin (Inpatient Use) 0.4 Mg Tab.Subl) 0.4 mg SUBLINGUAL Q5M PRN PRN Reason: chest pain Nutritional Formula (Lactose Free) (Glucerna Shake 120 Ml Liquid) 120 ml PO 4X/DAY [facility] Last Admin: 12/08/20 10:51 Dose: Not Given Documented by: Nystatin (Nystatin Powder 15gm Bottle) 1 applic TOPICAL BID [facility]; Protocol Last Admin: 12/08/20 10:53 Dose: 1 applicatio Documented by: Ondansetron HCl (Ondansetron 4 Mg/2 Ml Vial) 4 mg IV Q8H PRN PRN PRN Reason: NAUSEA/VOMITING Oxycodone HCl (Oxycodone 5 Mg Tablet) 10 mg PO TID PRN PRN PRN Reason: PAIN 1-07/26 Last Admin: 12/07/20 20:07 Dose: 10 mg Documented by: Pantoprazole Sodium (Pantoprazole Sodium 40 Mg Tablet) 40 mg PO DAILY [facility] Last Admin: 12/08/20 10:52 Dose: 40 mg Documented by: Paroxetine HCl (Paroxetine 20 Mg Tablet) 40 mg PO DAILY [facility] Last Admin: 12/08/20 10:52 Dose: 40 mg Documented by: Polysaccharide Iron Complex (Iron Polysaccharide Complex 150 Mg Capsule) 150 mg PO BID@1200,1700 [facility] Last Admin: 12/08/20 10:52 Dose: 150 mg Documented by: Potassium Chloride (Potassium Chloride Oral Tablet 10 Meq) 10 meq PO BIDCM [facility] Last Admin: 12/08/20 08:58 Dose: 10 meq Documented by: Pramipexole Dihydrochloride (Pramipexole Di-Hcl 1 Mg Tablet) 1 mg PO QHS [facility] Last Admin: 12/07/20 21:09 Dose: 1 mg Documented by: Sodium Chloride (0.9% Saline Lock 10 Ml Syringe) 10 - 40 ml IV UD PRN PRN Reason: SALINE FLUSH Last Admin: 12/08/20 10:53 Dose: 10 ml Documented by: Medical Necessity - Tobacco Use Smoking Status: Former smoker Assessment/Plan All Active Problems (Last Reviewed 12/06/20 @ 17:[address] Juan Blunt, DO) Fracture of right great toe (Acute) Cellulitis of right leg (Acute) Right 1st toe distal phalanx fracture - open, w/ laceration down to bone and onycholysis of the 1st toenail Cellulitis right foot improving (osteo work up in process and less likely given updated information) Fissure wound left heel - no infection Diabetes with peripheral neuropathy Peripheral vascular disease Multiple comorbidities Reviewed diagnostic data. She is afebrile. WBC decreased to 14.3, ESR 10, lactic acid decreased. Clinically right foot much improved without purulence or erythema. 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 Blood cultures negative so far. Patient on IV Vancomycin and zosyn. ID on consult. MRI right foot reviewed w/ base fracture of distal phalanx with good alignment maintained. There is no evidence of radiographic osteomyelitis or abscess. Vascular studies ordered and pending. Aquacell AG dressing applied to right hallux and adaptic gauze dressing applied to left heel. To change daily. No weightbearing right foot. Surgical shoe ordered. Podiatry will continue to follow closely. Please call if questions. Kenna Sethi DPM, [facility] [phone]
[2020-12-08 12:20] LABS: Bedside Glucose 120 mg/dL (70-110)
[2020-12-08] MEDS: Glucerna Shake 120 ML LIQUID PO ×3 (13:51→21:08)
--- NOTE | 2020-12-08 14:22 | PCM.HP.ID ---
Problem List (1) Cellulitis of right leg Status: Acute Reason for Consult: cellulitis Consulted by: Dr. Abbasi History of Present Illness: The patient is a 75 year old F with copd, DM neuropathy, reports stubbing her R 1st toe on 12/04. Had progressive discoloration, spreading redness, pain in foot. No fever, no n/v/d. Came to ED, MRI done, admitted on vanc/zosyn, seen by podiatry. Feeling about the same, foot is sore. Full ROS performed and neg except as noted above. - Medical History Past Medical History (Chronic Problems): Chronic Problems (Last Reviewed 12/06/20 @ 17:[address] Juan Blunt, DO) Obesity (Chronic) Acute on chronic diastolic CHF (congestive heart failure) (Chronic) COPD exacerbation (Chronic) Diabetes (Chronic) Toxic multinodular goiter (Chronic) Polyneuropathy due to type 2 diabetes mellitus (Chronic) COPD (chronic obstructive pulmonary disease) (Chronic) Acute on chronic respiratory failure with hypoxia (Chronic) Paroxysmal atrial fibrillation (Chronic) Anemia (Chronic) Non-rheumatic aortic stenosis (Chronic) H/O aortic valve replacement (Chronic 12/03/16) TAVR: 23 mm Guillaume-Sapiens S3 valve 12/03/2016 Chronic diastolic heart failure (Chronic) Left carotid artery stenosis (Chronic) Right bundle branch block (RBBB) (Chronic) Hyperlipidemia (Chronic) Essential (primary) hypertension (Chronic) Allergies/Adverse Reactions: Allergies ciprofloxacin [From Cipro] Allergy (Verified 12/06/20 14:44) Rash ciprofloxacin HCl [From Cipro] Allergy (Verified 12/06/20 14:44) Rash gabapentin [From Neurontin] Allergy (Verified 12/06/20 14:44) Rash heparin Allergy (Verified 12/06/20 14:44) Low platelets Home Medications: Ambulatory Orders Medication Instructions Recorded Albuterol Aerosols [Ventolin 2.5 mg INHALATION Q4H PRN PRN 09/26/19 Aerosols] Albuterol IH (ProAir) [Proair Hfa] 2 puff INHALATION Q6H PRN PRN 09/26/19 Cyanocobalamin (Vitamin B-12) 1,000 mcg PO DAILY 09/26/19 [Vitamin B-12] Fluticasone 0.05% [Flonase Nasal 2 spray NASAL DAILY 09/26/19 [place]] Fluticasone/Salmeterol [Advair Hfa 2 puff INHALATION BID 09/26/19 115-21 Mcg Inhaler] Insulin Aspart [Novolog Flexpen] 10 units SUBCUT TIDCM 09/26/19 Iron Polysaccharide Complex 150 mg PO BID 09/26/19 [Ferrex 150] L.acidoph,Paracasei, B.lactis 1 ea PO DAILY 09/26/19 [Probiotic] Nystatin [Nyamyc] 30 gm TP BID 09/26/19 Paroxetine HCl [Paxil] 40 mg PO QHS 09/26/19 Ropinirole HCl 2 mg PO BID 09/26/19 Suvorexant [Belsomra] 20 mg PO QHS 09/26/19 Tiotropium [place] [Spiriva] 18 mcg IH DAILY 09/26/19 Atorvastatin Calcium [Lipitor] 80 mg PO QHS #30 tab 09/29/19 Oxycodone HCl/Acetaminophen 1 tab PO TID PRN 09/30/19 [Percocet 10-325 mg Tablet] calcium carbonate 500 mg (1,250 1 tab PO DAILY tab 01/11/20 mg)-vitamin D3 200 unit tablet insulin detemir U-100 100 unit/mL 40 unit SC QHS ml 05/05/20 subcutaneous solution lisinopril 10 mg tablet 10 mg PO DAILY 05/05/20 furosemide 40 mg tablet 80 mg PO DAILY tab 05/13/20 potassium chloride 10 mEq 10 meq PO BID tab 05/13/20 tablet,extended release denosumab 60 mg/mL subcutaneous 60 mg SC [id number] #1 ml 08/04/20 syringe metoprolol tartrate 25 mg tablet 25 mg PO BID #60 tab 08/06/20 levothyroxine 25 mcg tablet 25 mcg PO DAILY #30 tab 09/03/20 omeprazole 20 mg capsule,delayed 40 mg PO DAILY cap 09/03/20 release amiodarone 200 mg tablet 200 mg PO DAILY #90 tab 10/02/20 apixaban 2.5 mg tablet 2.5 mg PO BID #60 tab 10/07/20 nitroglycerin 0.4 mg sublingual 0.4 mg SUBLINGUAL PRN PRN #25 tab 10/30/20 tablet Furosemide 40 mg PO 1600 12/06/20 - Social History SMOKING STATUS:: Former smoker Vital Signs Temp Pulse Resp BP Pulse Ox 98.7 F 52 L 20 H 162/64 H 95 12/08/20 08:52 12/08/20 13:23 12/08/20 13:23 12/08/20 08:52 12/08/20 08:52 Oxygen Flow Rate (L/min) 3.5 Oxygen Delivery Method Nasal Cannula Weight: 82.2 kg Body Mass Index (BMI) 36.6 Finger Stick Blood Glucose 112 Microbiology Past 72 Hours 12/06/20 18:40 Gram Stain - Final Wound - Toe Wound Culture - Preliminary Gram negative julieta 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 GPC Poss Enterococcus sp Laboratory Tests Past 24 Hrs 12/08/20 12/08/20 06:00 06:00 WBC 14.3 H RBC 4.25 Hgb 11.6 L Hct 39.7 MCV 93.4 MCH 27.3 MCHC 29.2 L RDW Std Deviation 83.4 H RDW Coeff of Jeff 24.8 H Plt Count 214 MPV 12.0 Immature Gran % (Auto) 0.600 Neut % (Auto) 82.4 H Lymph % (Auto) 7.9 L [place] % (Auto) 7.6 Eos % (Auto) 1.3 Baso % (Auto) 0.2 Absolute Neuts (auto) 11.8 H Absolute Lymphs (auto) 1.12 Nucleated RBC % 0 Polychromasia 1+ Sodium 143 Potassium 3.9 Chloride 108 H Carbon Dioxide 30.0 Anion Gap 5 BUN 51 H Creatinine 1.84 H Estim Creat Clear Calc 34.81 Est GFR (MDRD) Af Amer 34 L Est GFR (MDRD) Non-Af 28 L BUN/Creatinine Ratio 27.7 H Glucose 51 L Calcium 8.4 L - Other Studies Radiology: [] reviewed Other Studies: [] Route of nutrition/ use of supplements: [] Nutritional Intake: [] IV Site: [] Pickens Catheter: [] - Physical Exam General: Alert, Cooperative, No apparent distress HEENT: Atraumatic, PERRLA, EOMI Neck: Supple, No Nodes Lungs: Clear to auscultation, Normal air movement Cardiovascular: Regular rate, Regular Rhythm Abdomen: Soft, Non Tender, Non-Distended Extremities: No edema Skin: Ulcer/ Wound - reviewed photos Musculoskeletal: No Tenderness to Palpation of Joints or Extremities Neurological: Cranial nerves II-XII grossly intact - Assessment/Plan Antibiotics: [] Assessment/Plan: [] Active and Suspected Problems (Last Reviewed 12/06/20 @ 17:[address] Juan Blunt, DO) Fracture of right great toe (Acute) Cellulitis of right leg (Acute) R 1st toe cellulitis and fracture - mri showed no osteo. Wound cx with GNR x2 and enterococcus. Wbc improving. Cont vanc/zosyn. CKD stable. Will follow, thank you, d/w Dr. Sethi
[2020-12-08 17:10] LABS: Bedside Glucose 129 mg/dL (70-110)
[2020-12-08] MEDS: Insulin Lispro 100 UNIT/ML INSULN.PEN SC (17:18)
[2020-12-08] MEDS: Acetaminophen 325 MG Tablet 650 MG PO (17:24)
[2020-12-08] MEDS: oxyCODONE 5 MG Tablet 10 MG PO (17:24)
[2020-12-08 17:29] LABS: Vancomycin, Trough Level 13.8 ug/mL (5.0-15.0)
--- NOTE | 2020-12-08 20:28 | PCM.RX.CS ---
Consult Pharmacy has been consulted to manage selected antiobiotic: Vancomycin Type of Consult: Follow-up Labs: Sodium 143 mmol/L (136-145) 12/08/20 06:00 Potassium 3.9 mmol/L (3.5-5.1) 12/08/20 06:00 Chloride 108 mmol/L (98-107) H 12/08/20 06:00 Carbon Dioxide 30.0 mmol/L (21.0-32.0) 12/08/20 06:00 Anion Gap 5 (5-15) 12/08/20 06:00 BUN 51 mg/dL (7-18) H 12/08/20 06:00 Creatinine 1.84 mg/dL (0.55-1.02) H 12/08/20 06:00 Est GFR (MDRD) Af Amer 34 mL/min (>60) L 12/08/20 06:00 Est GFR (MDRD) Non-Af 28 mL/min (>60) L 12/08/20 06:00 BUN/Creatinine Ratio 27.7 RATIO (10-20) H 12/08/20 06:00 Glucose 51 mg/dL (74-106) L 12/08/20 06:00 Vancomycin Trough 13.8 ug/mL (5.0-15.0) 12/08/20 16:13 Microbiology: Microbiology 12/06/20 18:40 Wound - Toe Gram Stain - Final 12/06/20 18:40 Wound - Toe Wound Culture - Preliminary Gram negative julieta GNR lactose captain cannery tender GPC Poss Enterococcus sp Goal Trough: 10-15 mcg/mL Pharmacy Plan for Drug Dosing: Trough within goal range but only 2 doses prior to level and SCr is increased. Recommend to recheck in 48 hours. Pharmacy Service will continue to monitor and adjust dosing as required. Follow-Up Labs: Trough Vancomycin - 12/10 @ 1630
[2020-12-08] MEDS: Atorvastatin Calcium 80 MG Tablet PO (21:09)
[2020-12-08] MEDS: Pramipexole Di-HCl 1 MG Tablet PO (21:09)
[2020-12-09] VITALS (15 sets, daily range): BP systolic 147–190; BP diastolic 47–67; PULSE 52–63; RESP 16–18; TEMP 36.5–37.1; O2SAT 95–100
[2020-12-09 00:16] LABS: Bedside Glucose 264 mg/dL (70-110)
[2020-12-09] MEDS: oxyCODONE 5 MG Tablet 10 MG PO ×3 (00:32→23:56)
[2020-12-09] MEDS: Levothyroxine 25 MCG TABLET PO (05:59)
[2020-12-09 06:08] LABS: Absolute Neutrophil Count 11.1 X10^3/uL (2.0-7.7); Basophil# 0.03 X10^3/uL; Basophil% 0.2 % (0-1); Eosinophil# 0.26 X10^3/uL; Eosinophils% 1.9 % (0-5); Hematocrit 39.4 % (37-47); Hemoglobin 11.1 g/dL (12.0-15.0); Lymphocyte % 8.8 % (19-41); Mean Corp Hgb Conc 28.2 g/dL (32-36); Mean Corpuscular Hgb 26.9 pg (27.0-32.0); Mean Corpuscular Volume 95.6 fL (81-99); Mean Platelet Vol. 12.4 fl (6.2-12.0); Monocyte# 1.02 X10^3/uL; Monocyte% 7.4 % (0-10); NRBC Flagged by Analyzer 0 % (0-5); Neutrophil # 11.13 X10^3/uL (2.7-7.7); Neutrophil % 81.2 % (47-70); POSITIVE MORPHOLOGY YES; Platelet Count 196 K/mm3 (150-450); RBC Distribution Width CV 24.1 % (11.6-14.6); RBC Distribution Width SD 83.8 fl (35.1-43.9); Red Blood Count 4.12 M/mm3 (4.2-5.4); White Blood Count 13.7 K/mm3 (4.4-11.0)
[2020-12-09 06:14] LABS: Differential Indicated SCAN CRITERIA MET
[2020-12-09 06:35] LABS: Target Cells RARE; Tear Drop Cell RARE
[2020-12-09 06:41] LABS: Anion Gap 6 (5-15); BUN 51 mg/dL (7-18); BUN/Creat Ratio 26.8 RATIO (10-20); Calcium,Total 8.1 mg/dL (8.5-10.1); Chloride 103 mmol/L (98-107); EST Glomerular Filtration Rate 27 mL/min (>60); Est Glom Filt Rate - Afr Amer 33 mL/min (>60); Estimated Creatinine Clearance 33.71 ml/min; Glucose 241 mg/dL (74-106); Potassium 4.4 mmol/L (3.5-5.1); Sodium Level 140 mmol/L (136-145)
[2020-12-09] MEDS: Ipratropium/Albuterol Sulfate 3 ML AMPUL.NEB INHALATION ×3 (07:00→19:46)
[2020-12-09] MEDS: Budesonide Respules 0.5 MG/2 ML AMPUL.NEB. INHALATION ×2 (07:00→19:46)
[2020-12-09 07:21] LABS: Hemoglobin A1c 6.7 % (3.8-5.6)
[2020-12-09] MEDS: Insulin Lispro 100 UNIT/ML INSULN.PEN SC ×6 (07:29→17:11)
[2020-12-09] MEDS: Metoprolol Tartrate 25 MG Tablet PO (07:30)
[2020-12-09] MEDS: Fluticasone 0.05% 1 SPRAY NASAL.SRY 2 SPRAY NASAL (07:31)
[2020-12-09] MEDS: Potassium Chloride Oral Tablet 10 MEQ PO (07:31)
[2020-12-09] MEDS: Calcium Carb/Vitamin D 1 TABLET Tablet PO (07:31)
[2020-12-09] MEDS: Nystatin Powder 15gm Bottle 1 APPLIC TOPICAL ×2 (07:31→22:12)
[2020-12-09] MEDS: Amiodarone 200 MG Tablet PO (07:31)
[2020-12-09] MEDS: Cyanocobalamin 500 MCG Tablet 1000 MCG PO (07:32)
[2020-12-09] MEDS: Pantoprazole Sodium 40 MG Tablet PO (07:32)
[2020-12-09] MEDS: Paroxetine 20 MG Tablet 40 MG PO (07:32)
[2020-12-09] MEDS: Lisinopril 10 MG Tablet PO (07:32)
[2020-12-09] MEDS: Glucerna Shake 120 ML LIQUID PO ×4 (07:36→22:15)
[2020-12-09] MEDS: hydrALAZINE 20 MG/ML Vial 5 MG IV (07:41)
[2020-12-09] MEDS: Acetaminophen 325 MG Tablet 650 MG PO ×2 (07:41→20:28)
[2020-12-09 08:16] LABS: Bedside Glucose 199 mg/dL (70-110)
[2020-12-09] MEDS: hydrALAZINE 50 MG Tablet PO ×2 (09:01→20:24)
[2020-12-09] MEDS: amLODIPine 10 MG Tablet PO (09:01)
--- NOTE | 2020-12-09 10:18 | PN.ID_ITS ---
Patient Problems: Active and Suspected Problems (Last Reviewed 12/06/20 @ 17:[address] Juan Blunt, DO) Fracture of right great toe (Acute) Cellulitis of right leg (Acute) Subjective: Feeling better, no fever, no n/v/d. - Physical Exam Vitals/I&O's: Vital Signs Temp Pulse Resp BP Pulse Ox 97.7 F L 53 L 16 166/52 H 95 12/09/20 07:43 12/09/20 09:01 12/09/20 07:43 12/09/20 09:00 12/09/20 07:43 Oxygen Flow Rate (L/min) 4 Oxygen Delivery Method Nasal Cannula Weight: 82.2 kg Body Mass Index (BMI) 36.6 Finger Stick Blood Glucose 112 Intake and Output for Last 24 Hours 12/07/20 12/08/20 12/09/20 23:59 23:59 23:59 Intake Total 1275 / 1275 1712.25 / 2212.25 794 / 794 Output Total 850 / 850 3975 / 5175 1700 / 1700 Balance 425 / 425 -2262.75 / -2962.75 -906 / -906 General: Alert, Cooperative, No apparent distress Lungs: Clear to auscultation, Normal air movement Cardiovascular: Regular rate, Regular Rhythm Abdomen: Soft, Non Tender, Non-Distended Skin: Ulcer/ Wound Microbiology Past 72 Hours 12/06/20 18:40 Wound - Toe Gram Stain - Final 12/06/20 18:40 Wound - Toe Wound Culture - Final Serratia marcescens Klebsiella pneumoniae sp pneum Enterococcus faecalis 12/06/20 18:40 Wound - Toe Anaerobic Culture - Preliminary Checking for anaerobes, further studies to follow. Laboratory Results 12/08/20 12:07: POC Glucose 120 H 12/08/20 16:13: Vancomycin Trough 13.8 12/08/20 17:02: POC Glucose 129 H 12/08/20 21:55: POC Glucose 264 H 12/09/20 05:44: WBC 13.7 H, RBC 4.12 L, Hgb 11.1 L, Hct 39.4, MCV 95.6, MCH 26.9 L, MCHC 28.2 L, RDW Std Deviation 83.8 H, RDW Coeff of Jeff 24.1 H, Plt Count 196, MPV 12.4 H, Immature Gran % (Auto) 0.500, Neut % (Auto) 81.2 H, Lymph % (Auto) 8.8 L, [place] % (Auto) 7.4, Eos % (Auto) 1.9, Baso % (Auto) 0.2, Absolute Neuts (auto) 11.1 H, Absolute Lymphs (auto) 1.20, Nucleated RBC % 0, Target Cells RARE, Tear Drop Cells RARE 12/09/20 05:44: Sodium 140, Potassium 4.4, Chloride 103, Carbon Dioxide 31.0, Anion Gap 6, BUN 51 H, Creatinine 1.90 H, Estim Creat Clear Calc 33.71, Est GFR (MDRD) Af Amer 33 L, Est GFR (MDRD) Non-Af 27 L, BUN/Creatinine Ratio 26.8 H, Glucose 241 H, Calcium 8.1 L 12/09/20 05:44: Hemoglobin A1c 6.7 H 12/09/20 07:27: POC Glucose 199 H Current Medications Acetaminophen (Acetaminophen 325 Mg Tablet) 650 mg PO Q6H PRN PRN PRN Reason: Pain Score 1-10/Temp > 100.7 F Last Admin: 12/09/20 07:41 Dose: 650 mg Documented by: Albuterol Sulfate (Albuterol 2.5 Mg/3 Ml Vial.Neb.) 2.5 mg INHALATION Q4H PRN PRN PRN Reason: SOB &/OR WHEEZING Albuterol/Ipratropium (Ipratropium/Albuterol Sulfate 3 Ml Ampul.Neb) 3 ml INHALATION Q6HWA.RT [facility] Last Admin: 12/09/20 07:00 Dose: 3 ml Documented by: Amiodarone HCl (Amiodarone 200 Mg Tablet) 200 mg PO DAILY [facility] Last Admin: 12/09/20 07:31 Dose: 200 mg Documented by: Amlodipine Besylate (Amlodipine 10 Mg Tablet) 10 mg PO DAILY [facility] Last Admin: 12/09/20 09:01 Dose: 10 mg Documented by: Atorvastatin Calcium (Atorvastatin Calcium 80 Mg Tablet) 80 mg PO QHS [facility] Last Admin: 12/08/20 21:09 Dose: 80 mg Documented by: Budesonide (Budesonide Respules 0.5 Mg/2 Ml Ampul.Neb.) 0.5 mg INHALATION Q12H.RT [facility] Last Admin: 12/09/20 07:00 Dose: 0.5 mg Documented by: Calcium/Vitamin D (Calcium Carb/Vitamin D 1 Tablet Tablet) 1 tablet PO DAILYCM [facility] Last Admin: 12/09/20 07:31 Dose: 1 tablet Documented by: Cyanocobalamin (Cyanocobalamin 500 Mcg Tablet) 1,000 mcg PO DAILY [facility] Last Admin: 12/09/20 07:32 Dose: 1,000 mcg Documented by: Dextrose (Dextrose 50%-Water 25 Gm/50 Ml Disp.Syrin) 0 gm IV X1 PRN; Protocol PRN Reason: Hypoglycemia Fluticasone Propionate (Fluticasone 0.05% 1 [place] Nasal.Sry) 2 spray NASAL DAILY [facility] Last Admin: 12/09/20 07:31 Dose: 2 sprays Documented by: Glucagon (Glucagon 1 Mg/Ml Syringe) 1 mg IM .X1 PRN PRN Reason: Hypoglycemia Hydralazine HCl (Hydralazine 20 Mg/Ml Vial) 10 mg IV Q4H PRN PRN PRN Reason: sbp > 180 or DBP > 120 Hydralazine HCl (Hydralazine 50 Mg Tablet) 50 mg PO BID [facility] Last Admin: 12/09/20 09:01 Dose: 50 mg Documented by: Sodium Chloride () 250 mls @ 15 mls/hr IV .[id number] PRN PRN Reason: Saline Flush Last Infusion: 12/09/20 10:06 Dose: 15 mls/hr Documented by: Sodium Chloride () 250 mls @ 15 mls/hr IV .[id number] PRN PRN Reason: Additional IVPB Infusion Last Infusion: 12/09/20 05:59 Dose: 0 mls/hr Documented by: Piperacillin Sod/Tazobactam (Sod 3.375 gm/ Sodium Chloride) 50 mls @ 12.5 mls /hr IV Q12 [facility] Insulin Glargine (Insulin Glargine 100 Units/Ml Pen) 30 units SC QHS [facility] Last Admin: 12/08/20 21:56 Dose: 30 units Documented by: Insulin Human Lispro (Insulin Lispro 100 Unit/Ml Insuln.Pen) 0 unit SC TIDCM [facility]; Protocol Last Admin: 12/09/20 07:29 Dose: 2 units Documented by: Insulin Human Lispro (Insulin Lispro 100 Unit/Ml Insuln.Pen) 5 unit SC TIDCM [facility] Last Admin: 12/09/20 07:29 Dose: 5 u Documented by: Lactobacillus Acidophilus (Lactobacillus Acidophilus) 1 tablet PO DAILY [facility] Last Admin: 12/09/20 07:30 Dose: 1 tablet Documented by: Levothyroxine Sodium (Levothyroxine 25 Mcg Tablet) 25 mcg PO DAILY@0600 [facility] Last Admin: 12/09/20 05:59 Dose: 25 mcg Documented by: Lisinopril (Lisinopril 10 Mg Tablet) 10 mg PO DAILY [facility] Last Admin: 12/09/20 07:32 Dose: 10 mg Documented by: Metoprolol Tartrate (Metoprolol Tartrate 25 Mg Tablet) 25 mg PO BID [facility] Last Admin: 12/09/20 07:30 Dose: 25 mg Documented by: Nitroglycerin (Nitroglycerin (Inpatient Use) 0.4 Mg Tab.Subl) 0.4 mg SUBLINGUAL Q5M PRN PRN Reason: chest pain Nutritional Formula (Lactose Free) (Glucerna Shake 120 Ml Liquid) 120 ml PO 4X/DAY [facility] Last Admin: 12/09/20 07:36 Dose: 120 mls Documented by: Nystatin (Nystatin Powder 15gm Bottle) 1 applic TOPICAL BID [facility]; Protocol Last Admin: 12/09/20 07:31 Dose: 1 applicatio Documented by: Ondansetron HCl (Ondansetron 4 Mg/2 Ml Vial) 4 mg IV Q8H PRN PRN PRN Reason: NAUSEA/VOMITING Oxycodone HCl (Oxycodone 5 Mg Tablet) 10 mg PO TID PRN PRN PRN Reason: PAIN 1-07/26 Last Admin: 12/09/20 00:32 Dose: 10 mg Documented by: Pantoprazole Sodium (Pantoprazole Sodium 40 Mg Tablet) 40 mg PO DAILY [facility] Last Admin: 12/09/20 07:32 Dose: 40 mg Documented by: Paroxetine HCl (Paroxetine 20 Mg Tablet) 40 mg PO DAILY [facility] Last Admin: 12/09/20 07:32 Dose: 40 mg Documented by: Polysaccharide Iron Complex (Iron Polysaccharide Complex 150 Mg Capsule) 150 mg PO BID@1200,1700 [facility] Last Admin: 12/08/20 17:19 Dose: 150 mg Documented by: Potassium Chloride (Potassium Chloride Oral Tablet 10 Meq) [facility] Last Admin: 12/09/20 07:31 Dose: 10 meq Documented by: Pramipexole Dihydrochloride (Pramipexole Di-Hcl 1 Mg Tablet) 1 mg PO QHS [facility] Last Admin: 12/08/20 21:09 Dose: 1 mg Documented by: Sodium Chloride (0.9% Saline Lock 10 Ml Syringe) 10 - 40 ml IV UD PRN PRN Reason: SALINE FLUSH Last Admin: 12/08/20 18:22 Dose: 10 ml Documented by: Medical Necessity - Tobacco Use Smoking Status: Former smoker Route of nutrition/ use of supplements: [] Nutritional Intake: [] IV Site: [] Pickens Catheter: [] - Assessment/Plan Antibiotics: [] Assessment/Plan: [] Active and Suspected Problems (Last Reviewed 12/06/20 @ 17:[address] Juan Blunt, DO) Fracture of right great toe (Acute) Cellulitis of right leg (Acute) R 1st toe cellulitis and fracture - mri showed no osteo. Wound cx with klebs, serratia, and enterococcus. Wbc improving. Slowly rising Cr with h/o CKD. Will stop vanc, decrease dose of zosyn. Vascular studies showed bilateral severe arterial disease. May need vascular eval. Tentative plan for discharge will be 7 days more of linezolid 600mg bid and omnicef 300mg daily. Will follow, d/w Dr. Abbasi
[2020-12-09] MEDS: Iron Polysaccharide Complex 150 MG CAPSULE PO (10:59)
[2020-12-09 11:05] LABS: Bedside Glucose 175 mg/dL (70-110)
--- NOTE | 2020-12-09 12:55 | PN_ITS ---
Patient Problems: Active and Suspected Problems (Last Reviewed 12/06/20 @ 17:[address] Juan Blunt, DO) Fracture of right great toe (Acute) Cellulitis of right leg (Acute) Subjective: Patient was seen this afternoon for follow up on right 1st toe fracture, nail avulsion with wound and cellulitis. She is also seen for bilateral heel fissures that are now wounds. She has pain to her wound sites and also generalized rest pain to bilateral feet and legs. She denies current f/c/n/v. She had noninvasive vascular studies performed and would like to go over the results. She continues on antibiotics. - Physical Exam Vitals/I&O's: Vital Signs Temp Pulse Resp BP Pulse Ox 97.7 F L 53 L 16 166/52 H 95 12/09/20 07:43 12/09/20 09:01 12/09/20 07:43 12/09/20 09:00 12/09/20 07:43 Oxygen Flow Rate (L/min) 3 Oxygen Delivery Method Nasal Cannula Weight: 82.2 kg Body Mass Index (BMI) 36.6 Finger Stick Blood Glucose 112 Intake and Output for Last 24 Hours 12/07/20 12/08/20 12/09/20 23:59 23:59 23:59 Intake Total 1275 / 1275 1712.25 / 2212.25 1244 / 1244 Output Total 850 / 850 3975 / 5175 2250 / 2250 Balance 425 / 425 -2262.75 / -2962.75 -1006 / -1006 General: Alert, Oriented x3, Cooperative HEENT: Atraumatic Extremities: No cyanosis, No Calf Tenderness, Diminished Peripheral Pulses - Nonpalpable pedal pulses bilateral lower extremities, Edema - Mild, - - Delayed capillary refill time to all digits bilateral lower extremity Skin: Ulcer/ Wound - There is no purulence, odor noted to the right hallux. The erythema has reduced in intensity and location compared to the previously marked zone. Heel fissures are without signs of infection and have hematogenous drainage noted on the dressing., - - Her skin is hairless, atrophic, thin and she is hypersensitive to touch bilateral lower extremities. The right hallux has continued dark ecchymotic changes and appears to be very dysvascular with evidence of anterior tissue loss Musculoskeletal: Muscle Wasting, Tenderness Neurological: Sensory exam intact to light touch and pain Psych/Mental Status: Normal Affect, Appropriate, Anxious Microbiology Past 72 Hours 12/06/20 18:40 Wound - Toe Gram Stain - Final 12/06/20 18:40 Wound - Toe Wound Culture - Final Serratia marcescens Klebsiella pneumoniae sp pneum Enterococcus faecalis 12/06/20 18:40 Wound - Toe Anaerobic Culture - Preliminary Checking for anaerobes, further studies to follow. Laboratory Results 12/08/20 16:13: Vancomycin Trough 13.8 12/08/20 17:02: POC Glucose 129 H 12/08/20 21:55: POC Glucose 264 H 12/09/20 05:44: WBC 13.7 H, RBC 4.12 L, Hgb 11.1 L, Hct 39.4, MCV 95.6, MCH 26.9 L, MCHC 28.2 L, RDW Std Deviation 83.8 H, RDW Coeff of Jeff 24.1 H, Plt Count 196, MPV 12.4 H, Immature Gran % (Auto) 0.500, Neut % (Auto) 81.2 H, Lymph % (Auto) 8.8 L, [place] % (Auto) 7.4, Eos % (Auto) 1.9, Baso % (Auto) 0.2, Absolute Neuts (auto) 11.1 H, Absolute Lymphs (auto) 1.20, Nucleated RBC % 0, Target Cells RARE, Tear Drop Cells RARE 12/09/20 05:44: Sodium 140, Potassium 4.4, Chloride 103, Carbon Dioxide 31.0, Anion Gap 6, BUN 51 H, Creatinine 1.90 H, Estim Creat Clear Calc 33.71, Est GFR (MDRD) Af Amer 33 L, Est GFR (MDRD) Non-Af 27 L, BUN/Creatinine Ratio 26.8 H, Glucose 241 H, Calcium 8.1 L 12/09/20 05:44: Hemoglobin A1c 6.7 H 12/09/20 07:27: POC Glucose 199 H 12/09/20 10:55: POC Glucose 175 H Current Medications Acetaminophen (Acetaminophen 325 Mg Tablet) 650 mg PO Q6H PRN PRN PRN Reason: Pain Score 1-10/Temp > 100.7 F Last Admin: 12/09/20 07:41 Dose: 650 mg Documented by: Albuterol Sulfate (Albuterol 2.5 Mg/3 Ml Vial.Neb.) 2.5 mg INHALATION Q4H PRN PRN PRN Reason: SOB &/OR WHEEZING Albuterol/Ipratropium (Ipratropium/Albuterol Sulfate 3 Ml Ampul.Neb) 3 ml INHALATION Q6HWA.RT [facility] Last Admin: 12/09/20 07:00 Dose: 3 ml Documented by: Amiodarone HCl (Amiodarone 200 Mg Tablet) 200 mg PO DAILY [facility] Last Admin: 12/09/20 07:31 Dose: 200 mg Documented by: Amlodipine Besylate (Amlodipine 10 Mg Tablet) 10 mg PO DAILY [facility] Last Admin: 12/09/20 09:01 Dose: 10 mg Documented by: Atorvastatin Calcium (Atorvastatin Calcium 80 Mg Tablet) 80 mg PO QHS [facility] Last Admin: 12/08/20 21:09 Dose: 80 mg Documented by: Budesonide (Budesonide Respules 0.5 Mg/2 Ml Ampul.Neb.) 0.5 mg INHALATION Q12H.RT [facility] Last Admin: 12/09/20 07:00 Dose: 0.5 mg Documented by: Calcium/Vitamin D (Calcium Carb/Vitamin D 1 Tablet Tablet) 1 tablet PO DAILYCM [facility] Last Admin: 12/09/20 07:31 Dose: 1 tablet Documented by: Cyanocobalamin (Cyanocobalamin 500 Mcg Tablet) 1,000 mcg PO DAILY [facility] Last Admin: 12/09/20 07:32 Dose: 1,000 mcg Documented by: Dextrose (Dextrose 50%-Water 25 Gm/50 Ml Disp.Syrin) 0 gm IV X1 PRN; Protocol PRN Reason: Hypoglycemia Fluticasone Propionate (Fluticasone 0.05% 1 [place] Nasal.Sry) 2 spray NASAL DAILY [facility] Last Admin: 12/09/20 07:31 Dose: 2 sprays Documented by: Glucagon (Glucagon 1 Mg/Ml Syringe) 1 mg IM .X1 PRN PRN Reason: Hypoglycemia Hydralazine HCl (Hydralazine 20 Mg/Ml Vial) 10 mg IV Q4H PRN PRN PRN Reason: sbp > 180 or DBP > 120 Hydralazine HCl (Hydralazine 50 Mg Tablet) 50 mg PO BID [facility] Last Admin: 12/09/20 09:01 Dose: 50 mg Documented by: Sodium Chloride () 250 mls @ 15 mls/hr IV .[id number] PRN PRN Reason: Saline Flush Last Infusion: 12/09/20 10:06 Dose: 15 mls/hr Documented by: Sodium Chloride () 250 mls @ 15 mls/hr IV .[id number] PRN PRN Reason: Additional IVPB Infusion Last Infusion: 12/09/20 05:59 Dose: 0 mls/hr Documented by: Piperacillin Sod/Tazobactam (Sod 3.375 gm/ Sodium Chloride) 50 mls @ 12.5 mls/hr IV Q12 [facility] Insulin Glargine (Insulin Glargine 100 Units/Ml Pen) 30 units SC QHS [facility] Last Admin: 12/08/20 21:56 Dose: 30 units Documented by: Insulin Human Lispro (Insulin Lispro 100 Unit/Ml Insuln.Pen) 0 unit SC TIDCM [facility]; Protocol Last Admin: 12/09/20 10:58 Dose: 1 units Documented by: Insulin Human Lispro (Insulin Lispro 100 Unit/Ml Insuln.Pen) 5 unit SC TIDCM [facility] Last Admin: 12/09/20 10:58 Dose: 5 u Documented by: Lactobacillus Acidophilus (Lactobacillus Acidophilus) 1 tablet PO DAILY [facility] Last Admin: 12/09/20 07:30 Dose: 1 tablet Documented by: Levothyroxine Sodium (Levothyroxine 25 Mcg Tablet) 25 mcg PO DAILY@0600 [facility] Last Admin: 12/09/20 05:59 Dose: 25 mcg Documented by: Lisinopril (Lisinopril 10 Mg Tablet) 10 mg PO DAILY [facility] Last Admin: 12/09/20 07:32 Dose: 10 mg Documented by: Metoprolol Tartrate (Metoprolol Tartrate 25 Mg Tablet) 25 mg PO BID [facility] Last Admin: 12/09/20 07:30 Dose: 25 mg Documented by: Nitroglycerin (Nitroglycerin (Inpatient Use) 0.4 Mg Tab.Subl) 0.4 mg SUBLINGUAL Q5M PRN PRN Reason: chest pain Nutritional Formula (Lactose Free) (Glucerna Shake 120 Ml Liquid) 120 ml PO 4X/DAY [facility] Last Admin: 12/09/20 07:36 Dose: 120 mls Documented by: Nystatin (Nystatin Powder 15gm Bottle) 1 applic TOPICAL BID [facility]; Protocol Last Admin: 12/09/20 07:31 Dose: 1 applicatio Documented by: Ondansetron HCl (Ondansetron 4 Mg/2 Ml Vial) 4 mg IV Q8H PRN PRN PRN Reason: NAUSEA/VOMITING Oxycodone HCl (Oxycodone 5 Mg Tablet) 10 mg PO TID PRN PRN PRN Reason: PAIN 1-07/26 Last Admin: 12/09/20 00:32 Dose: 10 mg Documented by: Pantoprazole Sodium (Pantoprazole Sodium 40 Mg Tablet) 40 mg PO DAILY [facility] Last Admin: 12/09/20 07:32 Dose: 40 mg Documented by: Paroxetine HCl (Paroxetine 20 Mg Tablet) 40 mg PO DAILY [facility] Last Admin: 12/09/20 07:32 Dose: 40 mg Documented by: Polysaccharide Iron Complex (Iron Polysaccharide Complex 150 Mg Capsule) 150 mg PO BID@1200,1700 [facility] Last Admin: 12/09/20 10:59 Dose: 150 mg Documented by: Potassium Chloride (Potassium Chloride Oral Tablet 10 Meq) 10 meq PO BIDCM [facility] Last Admin: 12/09/20 07:31 Dose: 10 meq Documented by: Pramipexole Dihydrochloride (Pramipexole Di-Hcl 1 Mg Tablet) 1 mg PO QHS [facility] Last Admin: 12/08/20 21:09 Dose: 1 mg Documented by: Sodium Chloride (0.9% Saline Lock 10 Ml Syringe) 10 - 40 ml IV UD PRN PRN Reason: SALINE FLUSH Last Admin: 12/08/20 18:22 Dose: 10 ml Documented by: Medical Necessity - Tobacco Use Smoking Status: Former smoker Assessment/Plan All Active Problems (Last Reviewed 12/06/20 @ 17:[address] Juan Blunt, ) Fracture of right great toe (Acute) Cellulitis of right leg (Acute) Right 1st toe distal phalanx fracture - open, w/ laceration down to bone and onycholysis of the 1st toenail Cellulitis right foot improving ; osteo not suspected Fissure wound left heel - no infection Fissure wound right heel - no infection Diabetes with peripheral neuropathy (A1C 6.7%) Peripheral vascular disease Multiple comorbidities Reviewed diagnostic data. She is afebrile. WBC decreased to 13.7, ESR 10. Clinically right foot much improved without purulence or erythema (previously marked). Culture has been obtained right 1st toe - serratia, klebsiella, enterococcus. MRI neg for osteomyelitis. Blood cultures negative so far. Patient on IV zosyn. ID on consult. Plan for 7 additional days of omnicef 300 daily and linezolid 600 BID. Kidney function is noted will be monitored. Vascular studies reviewed with noncompressible vessels and abnormal waveforms. The ASAD on the left is 0.48. I recommend a vascular surgery consultation. Adaptic and gauze to all wound sites. To change daily. No weightbearing right foot and WBAT left foot. Surgical shoes ordered. Podiatry will continue to follow closely. Medical management noted. Please call if questions. Kenna Sethi DPM, [facility] [phone]
--- NOTE | 2020-12-09 14:17 | NURSING ---
Dr Sethi had been in to change dressing to the right great toe. will continue to follow as needed.
--- NOTE | 2020-12-09 16:10 | PN_ITS ---
Patient Problems: Active and Suspected Problems (Last Reviewed 12/06/20 @ 17:[address] Juan Blunt, DO) Fracture of right great toe (Acute) Cellulitis of right leg (Acute) Objective: Seen and examined. Patient has mild bleeding from the right heel ulcer and right great toe ulcer. She had fissures which progressed to develop right heel ulcer. Physical exam General: Alert, Oriented x3, Cooperative HEENT: Atraumatic, PERRLA, EOMI, Normocephalic Oral: No Gingival or Mucosal Lesions/ Ulcerations Neck: Supple, No JVD, Negative Carotid Bruits Lungs: Air entry diminished in bilateral lung bases. No crepitation/rhonchi Cardiovascular: Regular rate, Regular Rhythm, Normal S1, Normal S2, No murmurs. Right DPA diminished. Abdomen: Bowel Sounds Present, Soft, Non Tender, Non-Distended : No renal angle tenderness. No suprapubic tenderness. Extremities: No edema, Capillary Refill Less than 3 Seconds Skin: Small wound over right heel down to the subcutaneous level, some granular tissue and some fibrous tissue. Surrounding redness has improved. Tenderness over right great toe with a small bleeding in the dressing.. Avulsion of the right great toenail with ecchymosis, onycholysis Musculoskeletal: Tenderness of right great toe. Neurological: Cranial nerves II-XII grossly intact, Deep Tendon Reflexes 2+/4 and Symmetrical, Neuro grossly intact Psych/Mental Status: Normal Affect, Appropriate. Vitals/I&O's: Vital Signs Temp Pulse Resp BP Pulse Ox 98.5 F 52 L 16 157/56 H 98 12/09/20 13:54 12/09/20 13:54 12/09/20 13:54 12/09/20 13:54 12/09/20 13:54 Oxygen Flow Rate (L/min) 4 Oxygen Delivery Method Nasal Cannula Weight: 181 lb 3.52 oz Body Mass Index (BMI) 36.6 Finger Stick Blood Glucose 112 Intake and Output for Last 24 Hours 12/07/20 12/08/20 12/09/20 23:59 23:59 23:59 Intake Total 1275 / 1275 1712.25 / 2212.25 1244 / 1244 Output Total 850 / 850 3975 / 5175 2250 / 2250 Balance 425 / 425 -2262.75 / -2962.75 -1006 / -1006 Microbiology Past 72 Hours 12/06/20 16:28 Blood Culture (Wb) - Left Wrist Blood Culture - Preliminary No growth in 48 hours. 12/06/20 15:45 Blood Culture (Wb) - Anticubital Right Blood Culture - Prelim inary No growth in 48 hours. 12/06/20 18:40 Wound - Toe Gram Stain - Final 12/06/20 18:40 Wound - Toe Wound Culture - Final Serratia marcescens Klebsiella pneumoniae sp pneum Enterococcus faecalis 12/06/20 18:40 Wound - Toe Anaerobic Culture - Preliminary Checking for anaerobes, further studies to follow. Laboratory Results 12/08/20 16:13: Vancomycin Trough 13.8 12/08/20 17:02: POC Glucose 129 H 12/08/20 21:55: POC Glucose 264 H 12/09/20 05:44: WBC 13.7 H, RBC 4.12 L, Hgb 11.1 L, Hct 39.4, MCV 95.6, MCH 26.9 L, MCHC 28.2 L, RDW Std Deviation 83.8 H, RDW Coeff of Jeff 24.1 H, Plt Count 196, MPV 12.4 H, Immature Gran % (Auto) 0.500, Neut % (Auto) 81.2 H, Lymph % (Auto) 8.8 L, [place] % (Auto) 7.4, Eos % (Auto) 1.9, Baso % (Auto) 0.2, Absolute Neuts (auto) 11.1 H, Absolute Lymphs (auto) 1.20, Nucleated RBC % 0, Target Cells RARE, Tear Drop Cells RARE 12/09/20 05:44: Sodium 140, Potassium 4.4, Chloride 103, Carbon Dioxide 31.0, Anion Gap 6, BUN 51 H, Creatinine 1.90 H, Estim Creat Clear Calc 33.71, Est GFR (MDRD) Af Amer 33 L, Est GFR (MDRD) Non-Af 27 L, BUN/Creatinine Ratio 26.8 H, Glucose 241 H, Calcium 8.1 L 12/09/20 05:44: Hemoglobin A1c 6.7 H 12/09/20 07:27: POC Glucose 199 H 12/09/20 10:55: POC Glucose 175 H Current Medications Acetaminophen (Acetaminophen 325 Mg Tablet) 650 mg PO Q6H PRN PRN PRN Reason: Pain Score 1-10/Temp > 100.7 F Last Admin: 12/09/20 07:41 Dose: 650 mg Documented by: Albuterol Sulfate (Albuterol 2.5 Mg/3 Ml Vial.Neb.) 2.5 mg INHALATION Q4H PRN PRN PRN Reason: SOB &/OR WHEEZING Albuterol/Ipratropium (Ipratropium/Albuterol Sulfate 3 Ml Ampul.Neb) 3 ml INHALATION Q6HWA.RT [facility] Last Admin: 12/09/20 13:05 Dose: 3 ml Documented by: Amiodarone HCl (Amiodarone 200 Mg Tablet) 200 mg PO DAILY [facility] Last Admin: 12/09/20 07:31 Dose: 200 mg Documented by: Amlodipine Besylate (Amlodipine 10 Mg Tablet) 10 mg PO DAILY [facility] Last Admin: 12/09/20 09:01 Dose: 10 mg Documented by: Atorvastatin Calcium (Atorvastatin Calcium 80 Mg Tablet) 80 mg PO QHS [facility] Last Admin: 12/08/20 21:09 Dose: 80 mg Documented by: Budesonide (Budesonide Respules 0.5 Mg/2 Ml Ampul.Neb.) 0.5 mg INHALATION Q12H.RT [facility] Last Admin: 12/09/20 07:00 Dose: 0.5 mg Documented by: Calcium/Vitamin D (Calcium Carb/Vitamin D 1 Tablet Tablet) [facility] Admin: 12/09/20 07:31 Dose: 1 tablet Documented by: Cyanocobalamin (Cyanocobalamin 500 Mcg Tablet) 1,000 mcg PO DAILY [facility] Last Admin: 12/09/20 07:32 Dose: 1,000 mcg Documented by: Dextrose (Dextrose 50%-Water 25 Gm/50 Ml Disp.Syrin) 0 gm IV X1 PRN; Protocol PRN Reason: Hypoglycemia Fluticasone Propionate (Fluticasone 0.05% 1 [place] Nasal.Sry) 2 spray NASAL DAILY [facility] Last Admin: 12/09/20 07:31 Dose: 2 sprays Documented by: Glucagon (Glucagon 1 Mg/Ml Syringe) 1 mg IM .X1 PRN PRN Reason: Hypoglycemia Hydralazine HCl (Hydralazine 20 Mg/Ml Vial) 10 mg IV Q4H PRN PRN PRN Reason: sbp > 180 or DBP > 120 Hydralazine HCl (Hydralazine 50 Mg Tablet) 50 mg PO BID [facility] Last Admin: 12/09/20 09:01 Dose: 50 mg Documented by: Sodium Chloride () 250 mls @ 15 mls/hr IV .[id number] PRN PRN Reason: Saline Flush Last Infusion: 12/09/20 10:06 Dose: 15 mls/hr Documented by: Sodium Chloride () 250 mls @ 15 mls/hr IV .[id number] PRN PRN Reason: Additional IVPB Infusion Last Infusion: 12/09/20 05:59 Dose: 0 mls/hr Documented by: Piperacillin Sod/Tazobactam (Sod 3.375 gm/ Sodium Chloride) 50 mls @ 12.5 mls/hr IV Q12 [facility] Insulin Glargine (Insulin Glargine 100 Units/Ml Pen) 30 units SC QHS [facility] Last Admin: 12/08/20 21:56 Dose: 30 units Documented by: Insulin Human Lispro (Insulin Lispro 100 Unit/Ml Insuln.Pen) 0 unit SC TIDCM [facility]; Protocol Last Admin: 12/09/20 10:58 Dose: 1 units Documented by: Insulin Human Lispro (Insulin Lispro 100 Unit/Ml Insuln.Pen) 5 unit SC TIDCM [facility] Last Admin: 12/09/20 10:58 Dose: 5 u Documented by: Lactobacillus Acidophilus (Lactobacillus Acidophilus) 1 tablet PO DAILY [facility] Last Admin: 12/09/20 07:30 Dose: 1 tablet Documented by: Levothyroxine Sodium (Levothyroxine 25 Mcg Tablet) 25 mcg PO DAILY@0600 [facility] Last Admin: 12/09/20 05:59 Dose: 25 mcg Documented by: Lisinopril (Lisinopril 10 Mg Tablet) 10 mg PO DAILY [facility] Last Admin: 12/09/20 07:32 Dose: 10 mg Documented by: Metoprolol Tartrate (Metoprolol Tartrate 25 Mg Tablet) 25 mg PO BID [facility] Last Admin: 12/09/20 07:30 Dose: 25 mg Documented by: Nitroglycerin (Nitroglycerin (Inpatient Use) 0.4 Mg Tab.Subl) 0.4 mg SUBLINGUAL Q5M PRN PRN Reason: chest pain Nutritional Formula (Lactose Free) (Glucerna Shake 120 Ml Liquid) 120 ml PO 4X/DAY [facility] Last Admin: 12/09/20 13:45 Dose: 120 mls Documented by: Nystatin (Nystatin Powder 15gm Bottle) 1 applic TOPICAL BID [facility]; Protocol Last Admin: 12/09/20 07:31 Dose: 1 applicatio Documented by: Ondansetron HCl (Ondansetron 4 Mg/2 Ml Vial) 4 mg IV Q8H PRN PRN PRN Reason: NAUSEA/VOMITING Oxycodone HCl (Oxycodone 5 Mg Tablet) 10 mg PO TID PRN PRN PRN Reason: PAIN 1-07/26 Last Admin: 12/09/20 13:51 Dose: 10 mg Documented by: Pantoprazole Sodium (Pantoprazole Sodium 40 Mg Tablet) 40 mg PO DAILY [facility] Last Admin: 12/09/20 07:32 Dose: 40 mg Documented by: Paroxetine HCl (Paroxetine 20 Mg Tablet) 40 mg PO DAILY [facility] Last Admin: 12/09/20 07:32 Dose: 40 mg Documented by: Polysaccharide Iron Complex (Iron Polysaccharide Complex 150 Mg Capsule) 150 mg PO BID@1200,1700 [facility] Last Admin: 12/09/20 10:59 Dose: 150 mg Documented by: Potassium Chloride (Potassium Chloride Oral Tablet 10 Meq) 10 meq PO BIDCM [facility] Last Admin: 12/09/20 07:31 Dose: 10 meq Documented by: Pramipexole Dihydrochloride (Pramipexole Di-Hcl 1 Mg Tablet) 1 mg PO QHS [facility] Last Admin: 12/08/20 21:09 Dose: 1 mg Documented by: Sodium Chloride (0.9% Saline Lock 10 Ml Syringe) 10 - 40 ml IV UD PRN PRN Reason: SALINE FLUSH Last Admin: 12/08/20 18:22 Dose: 10 ml Documented by: STROKE Vital Signs/Narrative: Vital Signs Temp Pulse Resp BP Pulse Ox 12/09/20 13:54 98.5 F 52 L 16 157/56 H 98 12/09/20 13:05 63 16 Medical Necessity - Tobacco Use Smoking Status: Former smoker Assessment/Plan All Active Problems (Last Reviewed 12/06/20 @ 17:[address] Juan Blunt, DO) Fracture of right great toe (Acute) Cellulitis of right leg (Acute) 1. Right lower extremity cellulitis secondary to injury to right great toe/skin tear, need is further infection. Lactic acid was elevated but thought to be secondary to patient's hypoxia. MRI did not show osteomyelitis. MRSA and MSSA screen negative. Lactic acid was elevated, however, I do not feel that that is related with underlying sepsis or severe sepsis but more likely due to the patient's hypoxia that she presented with. Prelim Gram stain shows gram-negative julieta, GNR lactose repairer recreational vehicle, GPC possible Enterococcus. MRI did not show any osteomyelitis. MRSA and MSSA screen negative. Seen by ID recommended to continue vancomycin and Zosyn. 12/09: Wound culture growing Serratia marcescens, Klebsiella pneumonia and Enterococcus faecalis seen by ID. Vancomycin is stopped. Zosyn dose decreased. 2. Right great toe distal phalanx fracture with peripheral arterial disease: Seen by photographic technician. Patient also had great toenail avulsion and onycholysis. Vascular studies has been ordered and is pending. 12/09: Left ASAD 0.48. Right ASAD could not be calculated. Bilateral dorsalis pedis artery monophasic. Reported as severe arterial occlusive disease bilateral lower extremities with monophasic bilateral Doppler waveforms. Consult vascular surgery, Dr. Vargas. 3. Chronic atrial fibrillation continue with amiodarone and metoprolol. No anticoagulation at this time in case surgery necessary 4. Diabetes mellitus type 2 with diabetic neuropathy Blood glucose was 191 at time of admission. Currently 120. A1c is ordered. Continue basal and bolus insulin. 5. Acute hypoxic respiratory insufficiency: On 4 L of oxygen. Patient states is due to traveling via her electric wheelchair in the cold took her roughly an hour. * Continue with bronchodilators. * No evidence of exacerbation to warrant steroids 6. CKD stage III: Creatinine varies from 1.5-1.8. Currently creatinine went up from 1.4-1.84. We will hold the Lasix 12/09: Increase in creatinine from 1.74-1.9. Medication dosage adjusted accordingly. Potassium 4.4. Potassium supplement discontinued. Lasix on hold. VTE prophylaxis with SCDs until anticoagulation resumed. Patient has allergy to heparin and heparin products. Inpatient E&M: 35365 Subs Hosp L2
[2020-12-09 16:11] LABS: Bedside Glucose 153 mg/dL (70-110)
[2020-12-09] MEDS: Aspirin E.C. 81 MG Tablet PO (17:11)
[2020-12-09] MEDS: Atorvastatin Calcium 80 MG Tablet PO (22:11)
[2020-12-09] MEDS: Pramipexole Di-HCl 1 MG Tablet PO (22:11)
[2020-12-09 22:40] LABS: Bedside Glucose 215 mg/dL (70-110)
[2020-12-10] VITALS (11 sets, daily range): BP systolic 132–168; BP diastolic 48–58; PULSE 52–70; RESP 18–20; TEMP 36.8–37; O2SAT 93–98
[2020-12-10] MEDS: Levothyroxine 25 MCG TABLET PO (06:21)
--- NOTE | 2020-12-10 06:37 | PCM.PROGNOTE ---
Patient Problems: Active and Suspected Problems (Last Reviewed 12/06/20 @ 17:[address] Juan Blunt, DO) Fracture of right great toe (Acute) Cellulitis of right leg (Acute) Subjective: Patient was seen this morning for follow up on right 1st toe fracture, nail avulsion with wound and cellulitis. She is also seen for bilateral heel fissures and vascular disease. She has continued moderate rest pain to her legs and feet. She denies current f/c/n/v. - Physical Exam Vitals/I&O's: Vital Signs Temp Pulse Resp BP Pulse Ox 98.4 F 58 L 18 168/54 H 98 12/10/20 02:53 12/10/20 02:53 12/10/20 02:53 12/10/20 02:53 12/10/20 02:53 Oxygen Flow Rate (L/min) 3 Oxygen Delivery Method Nasal Cannula Weight: 82.2 kg Body Mass Index (BMI) 36.6 Finger Stick Blood Glucose 112 Intake and Output for Last 24 Hours 12/08/20 12/09/20 12/10/20 23:59 23:59 23:59 Intake Total 1712.25 / 2212.25 2092.25 / 2092.25 250 / 250 Output Total 3975 / 5175 3250 / 3250 500 / 500 Balance -2262.75 / -2962.75 -1157.75 / -1157.75 -250 / -250 General: Alert, Oriented x3, Cooperative HEENT: Atraumatic Extremities: No cyanosis, Diminished Peripheral Pulses - Nonpalpable pedal pulses right, Edema - Decreased, Tenderness - Tenderness with ulcer manipulation and hypersensitivity to foot and leg palpation, - - Compartments remain soft to palpate right lower extremity Skin: Ulcer/ Wound - Status post hallux right nail avulsion with pale granular base and no visualized bone, necrotic tissue or other deep tissue. The erythema has resolved and there is no purulence or odor. Her fissure to her right heel remains stable. Adjacent skin is hairless and atrophic., - - There is also ecchymotic changes to the dorsal lateral fifth toe and plantar medial right hallux consistent with dysvascular presentation. No additional wounds noted to the right lower extremity Musculoskeletal: Muscle Wasting, - - Dorsal contraction of lesser toes and hallux, right Neurological: - - Hypersensitivity to light touch bilateral feet Psych/Mental Status: Normal Affect, Appropriate Microbiology Past 72 Hours 12/06/20 16:28 Blood Culture (Wb) - Left Wrist Blood Culture - Preliminary No growth in 48 hours. 12/06/20 15:45 Blood Culture (Wb) - Anticubital Right Blood Culture - Preliminary No growth in 48 hours. 12/06/20 18:40 Wound - Toe Gram Stain - Final 12/06/20 18:40 Wound - Toe Wound Culture - Final Serratia marcescens Klebsiella pneumoniae sp pneum Enterococcus faecalis 12/06/20 18:40 Wound - Toe Anaerobic Culture - Preliminary Checking for anaerobes, further studies to follow. Laboratory Results 12/09/20 05:44: Sodium 140, Potassium 4.4, Chloride 103, Carbon Dioxide 31.0, Anion Gap 6, BUN 51 H, Creatinine 1.90 H, Estim Creat Clear Calc 33.71, Est GFR (MDRD) Af Amer 33 L, Est GFR (MDRD) Non-Af 27 L, BUN/Creatinine Ratio 26.8 H, Glucose 241 H, Calcium 8.1 L 12/09/20 05:44: Hemoglobin A1c 6.7 H 12/09/20 07:27: POC Glucose 199 H 12/09/20 10:55: POC Glucose 175 H 12/09/20 16:03: POC Glucose 153 H 12/09/20 22:04: POC Glucose 215 H Current Medications Acetaminophen (Acetaminophen 325 Mg Tablet) 650 mg PO Q6H PRN PRN PRN Reason: Pain Score 1-10/Temp > 100.7 F Last Admin: 12/09/20 20:28 Dose: 650 mg Documented by: Albuterol Sulfate (Albuterol 2.5 Mg/3 Ml Vial.Neb.) 2.5 mg INHALATION Q4H PRN PRN PRN Reason: SOB &/OR WHEEZING Albuterol/Ipratropium (Ipratropium/Albuterol Sulfate 3 Ml Ampul.Neb) 3 ml INHALATION Q6HWA.RT [facility] Last Admin: 12/09/20 19:46 Dose: 3 ml Documented by: Amiodarone HCl (Amiodarone 200 Mg Tablet) 200 mg PO DAILY [facility] Last Admin: 12/09/20 07:31 Dose: 200 mg Documented by: Amlodipine Besylate (Amlodipine 10 Mg Tablet) 10 mg PO DAILY [facility] Last Admin: 12/09/20 09:01 Dose: 10 mg Documented by: Aspirin (Aspirin E.C. 81 Mg Tablet) 81 mg PO DAILY@0800 [facility] Atorvastatin Calcium (Atorvastatin Calcium 80 Mg Tablet) 80 mg PO QHS [facility] Last Admin: 12/09/20 22:11 Dose: 80 mg Documented by: Budesonide (Budesonide Respules 0.5 Mg/2 Ml Ampul.Neb.) 0.5 mg INHALATION Q12H.RT [facility] Last Admin: 12/09/20 19:46 Dose: 0.5 mg Documented by: Calcium/Vitamin D (Calcium Carb/Vitamin D 1 Tablet Tablet) 1 tablet PO DAILYCM [facility] Last Admin: 12/09/20 07:31 Dose: 1 tablet Documented by: Cyanocobalamin (Cyanocobalamin 500 Mcg Tablet) 1,000 mcg PO DAILY [facility] Last Admin: 12/09/20 07:32 Dose: 1,000 mcg Documented by: Dextrose (Dextrose 50%-Water 25 Gm/50 Ml Disp.Syrin) 0 gm IV X1 PRN; Protocol PRN Reason: Hypoglycemia Fluticasone Propionate (Fluticasone 0.05% 1 [place] Nasal.Sry) 2 spray NASAL DAILY [facility] Last Admin: 12/09/20 07:31 Dose: 2 sprays Documented by: Glucagon (Glucagon 1 Mg/Ml Syringe) 1 mg IM .X1 PRN PRN Reason: Hypoglycemia Hydralazine HCl (Hydralazine 20 Mg/Ml Vial) 10 mg IV Q4H PRN PRN PRN Reason: sbp > 180 or DBP > 120 Hydralazine HCl (Hydralazine 50 Mg Tablet) 50 mg PO BID [facility] Last Admin: 12/09/20 20:24 Dose: 50 mg Documented by: Sodium Chloride () 250 mls @ 15 mls/hr IV .[id number] PRN PRN Reason: Saline Flush Last Admin: 12/10/20 06:25 Dose: 15 mls/hr Documented by: Sodium Chloride () 250 mls @ 15 mls/hr IV .[id number] PRN PRN Reason: Additional IVPB Infusion Last Infusion: 12/10/20 06:21 Dose: Infused Documented by: Piperacillin Sod/Tazobactam (Sod 3.375 gm/ Sodium Chloride) 50 mls @ 12.5 mls/hr IV Q12 [facility] Last Infusion: 12/09/20 21:15 Dose: Infused Documented by: Insulin Glargine (Insulin Glargine 100 Units/Ml Pen) 30 units SC QHS [facility] Last Admin: 12/09/20 22:06 Dose: 30 units Documented by: Insulin Human Lispro (Insulin Lispro 100 Unit/Ml Insuln.Pen) 0 unit SC TIDCM [facility]; Protocol Last Admin: 12/09/20 17:10 Dose: 1 units Documented by: Insulin Human Lispro (Insulin Lispro 100 Unit/Ml Insuln.Pen) 5 unit SC TIDCM [facility] Last Admin: 12/09/20 17:11 Dose: 5 u Documented by: Lactobacillus Acidophilus (Lactobacillus Acidophilus) 1 tablet PO DAILY [facility] Last Admin: 12/09/20 07:30 Dose: 1 tablet Documented by: Levothyroxine Sodium (Levothyroxine 25 Mcg Tablet) 25 mcg PO DAILY@0600 [facility] Last Admin: 12/10/20 06:21 Dose: 25 mcg Documented by: Lisinopril (Lisinopril 10 Mg Tablet) 10 mg PO DAILY [facility] Last Admin: 12/09/20 07:32 Dose: 10 mg Documented by: Metoprolol Tartrate (Metoprolol Tartrate 25 Mg Tablet) 25 mg PO BID [facility] Last Admin: 12/09/20 22:05 Dose: Not Given Documented by: Nitroglycerin (Nitroglycerin (Inpatient Use) 0.4 Mg Tab.Subl) 0.4 mg SUBLINGUAL Q5M PRN PRN Reason: chest pain Nutritional Formula (Lactose Free) (Glucerna Shake 120 Ml Liquid) 120 ml PO 4X/DAY [facility] Last Admin: 12/09/20 22:15 Dose: 120 mls Documented by: Nystatin (Nystatin Powder 15gm Bottle) 1 applic TOPICAL BID [facility]; Protocol Last Admin: 12/09/20 22:12 Dose: 1 applicatio Documented by: Ondansetron HCl (Ondansetron 4 Mg/2 Ml Vial) 4 mg IV Q8H PRN PRN PRN Reason: NAUSEA/VOMITING Oxycodone HCl (Oxycodone 5 Mg Tablet) 10 mg PO TID PRN PRN PRN Reason: PAIN 1-07/26 Last Admin: 12/09/20 23:56 Dose: 10 mg Documented by: Pantoprazole Sodium (Pantoprazole Sodium 40 Mg Tablet) 40 mg PO DAILY [facility] Last Admin: 12/09/20 07:32 Dose: 40 mg Documented by: Paroxetine HCl (Paroxetine 20 Mg Tablet) 40 mg PO DAILY [facility] Last Admin: 12/09/20 07:32 Dose: 40 mg Documented by: Polysaccharide Iron Complex (Iron Polysaccharide [facility] 150 [facility]) [facility] Pramipexole Dihydrochloride (Pramipexole Di-Hcl 1 Mg Tablet) 1 mg PO QHS [facility] Last Admin: 12/09/20 22:11 Dose: 1 mg Documented by: Sodium Chloride (0.9% Saline Lock 10 Ml Syringe) 10 - 40 ml IV UD PRN PRN Reason: SALINE FLUSH Last Admin: 12/08/20 18:22 Dose: 10 ml Documented by: Medical Necessity - Tobacco Use Smoking Status: Former smoker Assessment/Plan All Active Problems (Last Reviewed 12/06/20 @ 17:[address] Juan Blunt, DO) Fracture of right great toe (Acute) Cellulitis of right leg (Acute) Right 1st toe distal phalanx fracture - open, w/ laceration down to bone and onycholysis of the 1st toenail (now s/p nail avulsion) Cellulitis right foot improving; osteo not suspected Fissure wound left heel - no infection Fissure wound right heel - no infection Diabetes with peripheral neuropathy (A1C 6.7%) Peripheral vascular disease Multiple comorbidities Reviewed diagnostic data. She is afebrile. AM labs pending. Clinically right foot much improved without purulence or erythema (previously marked). Culture has been obtained right 1st toe - serratia, klebsiella, enterococcus. MRI neg for osteomyelitis. Blood cultures negative so far. Patient on IV zosyn. ID on consult. Plan for 7 additional days of omnicef 300 daily and linezolid 600 BID. Vascular studies reviewed with noncompressible vessels and abnormal waveforms. The ASAD on the left is 0.48. Vascular surgery consultation placed. Changed right foot dressing this AM with adaptic and gauze. Peripheral lotion applied. To change daily. No weightbearing right foot and WBAT left foot. Surgical shoes ordered. Podiatry will continue to follow closely. Medical management noted. Please call if questions. Kenna Sethi DPM, [facility] [phone]
[2020-12-10] MEDS: Ipratropium/Albuterol Sulfate 3 ML AMPUL.NEB INHALATION ×3 (06:58→19:54)
[2020-12-10] MEDS: Budesonide Respules 0.5 MG/2 ML AMPUL.NEB. INHALATION ×2 (06:58→19:54)
--- NOTE | 2020-12-10 07:43 | PCM.PN.HOSP ---
Patient Problems: Active and Suspected Problems (Last Reviewed 12/10/20 @ 11:[address] Brown Vargas MD) Fracture of right great toe (Acute) Cellulitis of right leg (Acute) Objective: Seen and examined Heart rate and blood pressure are in acceptable limit. I talked to Dr. Vargas and gave a brief clinical picture of bilateral peripheral arterial disease. Currently patient is on baby aspirin. She has chronic kidney disease with average creatinine 1.5. Repeat creatinine today is 1.5. Discussed with the burlesque dancer and he advised normal saline 75 mils an hour [address] scan and then stop after [address] angiogram of abdomen and pelvis with lower extremity runoff done. Physical exam General: Alert, Oriented x3, Cooperative HEENT: Atraumatic, PERRLA, EOMI, Normocephalic Oral: No Gingival or Mucosal Lesions/ Ulcerations Neck: Supple, No JVD, Negative Carotid Bruits Lungs: Air entry diminished in bilateral lung bases. No crepitation/rhonchi Cardiovascular: Regular rate, Regular Rhythm, Normal S1, Normal S2, No murmurs. Bilateral diminished pulsation below knee level mainly UI SOFTWARE ENGINEER Abdomen: Bowel Sounds Present, Soft, Non Tender, Non-Distended : No renal angle tenderness. No suprapubic tenderness. Extremities: No edema, Capillary Refill Less than 3 Seconds Skin: Small wound over right heel down to the subcutaneous level, some granular tissue and some fibrous tissue. Tenderness over right great toe. Avulsion of the right great toenail with onycholysis Musculoskeletal: Tenderness of right great toe. Neurological: Cranial nerves II-XII grossly intact, Deep Tendon Reflexes 2+/4 and Symmetrical, Neuro grossly intact Psych/Mental Status: Normal Affect, Appropriate. Vitals/I&O's: Vital Signs Temp Pulse Resp BP Pulse Ox 98.4 F 60 18 168/54 H 96 12/10/20 02:53 12/10/20 06:58 12/10/20 06:58 12/10/20 02:53 12/10/20 06:58 Oxygen Flow Rate (L/min) 3 Oxygen Delivery Method Nasal Cannula Weight: 181 lb 3.52 oz Body Mass Index (BMI) 36.6 Finger Stick Blood Glucose 112 Intake and Output for Last 24 Hours 02/22/21 02/23/21 02/24/21 23:59 23:59 23:59 Intake Total 1712.25 / 2212.25 2092.25 / 2092.25 250 / 250 Output Total 3975 / 5175 3250 / 3250 500 / 500 Balance -2262.75 / -2962.75 -1157.75 / -1157.75 -250 / -250 Microbiology Past 72 Hours 12/06/20 16:28 Blood Culture (Wb) - Left Wrist Blood Culture - Preliminary No growth in 48 hours. 12/06/20 15:45 Blood Culture (Wb) - Anticubital Right Blood Culture - Preliminary No growth in 48 hours. 12/06/20 18:40 Wound - Toe Gram Stain - Final 12/06/20 18:40 Wound - Toe Wound Culture - Final Serratia marcescens Klebsiella pneumoniae sp pneum Enterococcus faecalis 12/06/20 18:40 Wound - Toe Anaerobic Culture - Preliminary Checking for anaerobes, further studies to follow. Laboratory Results 12/09/20 07:27: POC Glucose 199 H 12/09/20 10:55: POC Glucose 175 H 12/09/20 16:03: POC Glucose 153 H 12/09/20 22:04: POC Glucose 215 H 12/10/20 06:58: Sodium Pending, Potassium Pending, Chloride Pending, Carbon Dioxide Pending, Anion Gap Pending, BUN Pending, Creatinine Pending, Est GFR (MDRD) Af Amer Pending, Est GFR (MDRD) Non-Af Pending, BUN/Creatinine Ratio Pending, Glucose Pending, Calcium Pending Current Medications Acetaminophen (Acetaminophen 325 Mg Tablet) 650 mg PO Q6H PRN PRN PRN Reason: Pain Score 1-10/Temp > 100.7 F Last Admin: 12/09/20 20:28 Dose: 650 mg Documented by: Albuterol Sulfate (Albuterol 2.5 Mg/3 Ml Vial.Neb.) 2.5 mg INHALATION Q4H PRN PRN PRN Reason: SOB &/OR WHEEZING Albuterol/Ipratropium (Ipratropium/Albuterol Sulfate 3 Ml Ampul.Neb) 3 ml INHALATION Q6HWA.RT [facility] Last Admin: 12/10/20 06:58 Dose: 3 ml Documented by: Amiodarone HCl (Amiodarone 200 Mg Tablet) 200 mg PO DAILY [facility] Last Admin: 12/09/20 07:31 Dose: 200 mg Documented by: Amlodipine Besylate (Amlodipine 10 Mg Tablet) 10 mg PO DAILY [facility] Last Admin: 12/09/20 09:01 Dose: 10 mg Documented by: Aspirin (Aspirin E.C. 81 Mg Tablet) 81 mg PO DAILY@0800 [facility] Atorvastatin Calcium (Atorvastatin Calcium 80 Mg Tablet) 80 mg PO QHS [facility] Last Admin: 12/09/20 22:11 Dose: 80 mg Documented by: Budesonide (Budesonide Respules 0.5 Mg/2 Ml Ampul.Neb.) 0.5 mg INHALATION Q12H.RT [facility] Last Admin: 12/10/20 06:58 Dose: 0.5 mg Documented by: Calcium/Vitamin D (Calcium Carb/Vitamin D 1 Tablet Tablet) 1 tablet PO DAILYCM [facility] Last Admin: 12/09/20 07:31 Dose: 1 tablet Documented by: Cyanocobalamin (Cyanocobalamin 500 Mcg Tablet) 1,000 mcg PO DAILY [facility] Last Admin: 12/09/20 07:32 Dose: 1,000 mcg Documented by: Dextrose (Dextrose 50%-Water 25 Gm/50 Ml Disp.Syrin) 0 gm IV X1 PRN; Protocol PRN Reason: Hypoglycemia Fluticasone Propionate (Fluticasone 0.05% 1 [place] Nasal.Sry) 2 spray NASAL DAILY [facility] Last Admin: 12/09/20 07:31 Dose: 2 sprays Documented by: Glucagon (Glucagon 1 Mg/Ml Syringe) 1 mg IM .X1 PRN PRN Reason: Hypoglycemia Hydralazine HCl (Hydralazine 20 Mg/Ml Vial) 10 mg IV Q4H PRN PRN PRN Reason: sbp > 180 or DBP > 120 Hydralazine HCl (Hydralazine 50 Mg Tablet) 50 mg PO BID [facility] Last Admin: 12/09/20 20:24 Dose: 50 mg Documented by: Sodium Chloride () 250 mls @ 15 mls/hr IV .[id number] PRN PRN Reason: Saline Flush Last Admin: 12/10/20 06:25 Dose: 15 mls/hr Documented by: Sodium Chloride () 250 mls @ 15 mls/hr IV .[id number] PRN PRN Reason: Additional IVPB Infusion Last Infusion: 12/10/20 06:21 Dose: Infused Documented by: Piperacillin Sod/Tazobactam (Sod 3.375 gm/ Sodium Chloride) 50 mls @ 12.5 mls/hr IV Q12 [facility] Last Infusion: 12/09/20 21:15 Dose: Infused Documented by: Insulin Glargine (Insulin Glargine 100 Units/Ml Pen) 30 units SC QHS [facility] Last Admin: 12/09/20 22:06 Dose: 30 units Documented by: Insulin Human Lispro (Insulin Lispro 100 Unit/Ml Insuln.Pen) 0 unit SC TIDCM [facility]; Protocol Last Admin: 12/09/20 17:10 Dose: 1 units Documented by: Insulin Human Lispro (Insulin Lispro 100 Unit/Ml Insuln.Pen) 5 unit SC TIDCM [facility] Last Admin: 12/09/20 17:11 Dose: 5 u Documented by: Lactobacillus Acidophilus (Lactobacillus Acidophilus) 1 tablet PO DAILY [facility] Last Admin: 12/09/20 07:30 Dose: 1 tablet Documented by: Levothyroxine Sodium (Levothyroxine 25 Mcg Tablet) 25 mcg PO DAILY@0600 [facility] Last Admin: 12/10/20 06:21 Dose: 25 mcg Documented by: Lisinopril (Lisinopril 10 Mg Tablet) 10 mg PO DAILY [facility] Last Admin: 12/09/20 07:32 Dose: 10 mg Documented by: Metoprolol Tartrate (Metoprolol Tartrate 25 Mg Tablet) 25 mg PO BID [facility] Last Admin: 12/09/20 22:05 Dose: Not Given Documented by: Nitroglycerin (Nitroglycerin (Inpatient Use) 0.4 Mg Tab.Subl) 0.4 mg SUBLINGUAL Q5M PRN PRN Reason: chest pain Nutritional Formula (Lactose Free) (Glucerna Shake 120 Ml Liquid) 120 ml PO 4X/DAY [facility] Last Admin: 12/09/20 22:15 Dose: 120 mls Documented by: Nystatin (Nystatin Powder 15gm Bottle) 1 applic TOPICAL BID [facility]; Protocol Last Admin: 12/09/20 22:12 Dose: 1 applicatio Documented by: Ondansetron HCl (Ondansetron 4 Mg/2 Ml Vial) 4 mg IV Q8H PRN PRN PRN Reason: NAUSEA/VOMITING Oxycodone HCl (Oxycodone 5 Mg Tablet) 10 mg PO TID PRN PRN PRN Reason: PAIN 1-07/26 Last Admin: 12/09/20 23:56 Dose: 10 mg Documented by: Pantoprazole Sodium (Pantoprazole Sodium 40 Mg Tablet) 40 mg PO DAILY [facility] Last Admin: 12/09/20 07:32 Dose: 40 mg Documented by: Paroxetine HCl (Paroxetine 20 Mg Tablet) 40 mg PO DAILY [facility] Last Admin: 12/09/20 07:32 Dose: 40 mg Documented by: Polysaccharide Iron Complex (Iron Polysaccharide Complex 150 Mg [facility]apsule) [facility] Pramipexole Dihydrochloride (Pramipexole Di-Hcl 1 Mg Tablet) 1 mg PO QHS [facility] Last Admin: 12/09/20 22:11 Dose: 1 mg Documented by: Sodium Chloride (0.9% Saline Lock 10 Ml Syringe) 10 - 40 ml IV UD PRN PRN Reason: SALINE FLUSH Last Admin: 12/08/20 18:22 Dose: 10 ml Documented by: STROKE Vital Signs/Narrative: Vital Signs Pulse Resp Pulse Ox 12/10/20 06:58 60 18 96 Medical Necessity - Tobacco Use Smoking Status: Former smoker Assessment/Plan All Active Problems (Last Reviewed 12/10/20 @ 11:[address] Brown Vargas MD) Fracture of right great toe (Acute) Cellulitis of right leg (Acute) 1. Right lower extremity cellulitis secondary to injury to right great toe/skin tear, need is further infection. Lactic acid was elevated but thought to be secondary to patient's hypoxia. MRI did not show osteomyelitis. MRSA and MSSA screen negative. Lactic acid was elevated, however, I do not feel that that is related with underlying sepsis or severe sepsis but more likely due to the patient's hypoxia that she presented with. Prelim Gram stain shows gram-negative julieta, GNR lactose property caretaker, GPC possible Enterococcus. MRI did not show any osteomyelitis. MRSA and MSSA screen negative. Seen by ID recommended to continue vancomycin and Zosyn. 12/09: Wound culture growing Serratia marcescens, Klebsiella pneumonia and Enterococcus faecalis seen by ID. Vancomycin is stopped. Zosyn dose decreased. 12/10: Discharge plan will be 7 days more of linezolid 600 mg twice daily and Omnicef 300 mg daily. 2. Right great toe distal phalanx fracture with peripheral arterial disease: Seen by brazing machine operator automatic. Patient also had great toenail avulsion and onycholysis. Vascular studies has been ordered and is pending. 12/09: Left ASAD 0.48. Right ASAD could not be calculated. Bilateral dorsalis pedis artery monophasic. Reported as severe arterial occlusive disease bilateral lower extremities with monophasic bilateral Doppler waveforms. Consult vascular surgery, Dr. Vargas. 12/10: Patient had CT angiogram of abdomen with runoff lower extremities: Reported as diffuse atherosclerotic changes of abdominal aorta and both lower extremities, diffuse calcific plaque with multiple areas of narrowing mainly in the right SFA, profunda femoris, popliteal artery, right UI SOFTWARE ENGINEER and right peroneal artery. Patient is on IV fluid normal saline to prevent EMILIA. 3. Chronic atrial fibrillation continue with amiodarone and metoprolol. No anticoagulation at this time in case surgery necessary 4. Diabetes mellitus type 2 with diabetic neuropathy Blood glucose was 191 at time of admission. Currently 120. A1c is ordered. Continue basal and bolus insulin. 5. Acute hypoxic respiratory insufficiency: On 4 L of oxygen. Patient states is due to traveling via her electric wheelchair in the cold took her roughly an hour. Continue with bronchodilators. No evidence of exacerbation to warrant steroids 6. CKD stage III: Creatinine varies from 1.5-1.8. Currently creatinine went up from 1.4-1.84. We will hold the Lasix 12/09: Increase in creatinine from 1.74-1.9. Medication dosage adjusted accordingly. Potassium 4.4. Potassium supplement discontinued. Lasix on hold. 12/10: Discussed with burlesque dancer. Patient has history of chronic diastolic heart failure, COPD, paroxysmal A. fib status post aortic valve replacement. Today creatinine 1.5. Advised normal saline 75 mill per hour [address] scan and then [address] scan to prevent EMILIA. Monitor kidney function and electrolytes. VTE prophylaxis with SCDs until anticoagulation resumed. Patient has allergy to heparin and heparin products. Clinical Impression(s) from Imaging Studies Foot X-Ray 12/06/20 13:11 IMPRESSION: Moderately displaced (3.7 mm) fracture of the first distal phalanx likely involving the articular surface. Lower Extremity MRI 12/06/20 19:34 IMPRESSION: Oblique fracture of the base of the first distal phalanx. No MR evidence of osteomyelitis. Electronically Signed: Ramón Tomlinson MD at 11:58 EST Tel , Service support , Abdomen/Pelvis CTA 12/10/20 11:53 IMPRESSION: Diffuse atherosclerotic changes of the abdominal aorta and both lower extremities although there is evidence of a three-vessel runoff in both lower extremities. Inpatient E&M: 82139 Subs Hosp L2
[2020-12-10 07:51] LABS: Anion Gap 4 (5-15); BUN 39 mg/dL (7-18); BUN/Creat Ratio 25.8 RATIO (10-20); Calcium,Total 8.5 mg/dL (8.5-10.1); Chloride 105 mmol/L (98-107); Creatinine, Serum 1.51 mg/dL (0.55-1.02); EST Glomerular Filtration Rate 36 mL/min (>60); Est Glom Filt Rate - Afr Amer 43 mL/min (>60); Estimated Creatinine Clearance 42.42 ml/min; Glucose 232 mg/dL (74-106); Sodium Level 140 mmol/L (136-145)
[2020-12-10] MEDS: Iron Polysaccharide Complex 150 MG CAPSULE PO (08:27)
[2020-12-10] MEDS: Glucerna Shake 120 ML LIQUID PO (08:27)
[2020-12-10] MEDS: Pantoprazole Sodium 40 MG Tablet PO (08:27)
[2020-12-10] MEDS: Cyanocobalamin 500 MCG Tablet 1000 MCG PO (08:28)
[2020-12-10] MEDS: Calcium Carb/Vitamin D 1 TABLET Tablet PO (08:28)
[2020-12-10] MEDS: Aspirin E.C. 81 MG Tablet PO (08:28)
[2020-12-10] MEDS: Paroxetine 20 MG Tablet 40 MG PO (08:29)
[2020-12-10] MEDS: Insulin Lispro 100 UNIT/ML INSULN.PEN SC ×6 (08:31→17:12)
--- NOTE | 2020-12-10 09:20 | NURSING ---
Dressing changed by Dr Sethi this am to the right foot.
[2020-12-10] MEDS: Metoprolol Tartrate 25 MG Tablet PO (09:55)
[2020-12-10] MEDS: amLODIPine 10 MG Tablet PO (09:55)
[2020-12-10] MEDS: Amiodarone 200 MG Tablet PO (09:56)
[2020-12-10] MEDS: Fluticasone 0.05% 1 SPRAY NASAL.SRY 2 SPRAY NASAL (09:56)
[2020-12-10] MEDS: Nystatin Powder 15gm Bottle 1 APPLIC TOPICAL ×2 (09:56→22:01)
[2020-12-10] MEDS: hydrALAZINE 50 MG Tablet PO ×2 (09:56→22:01)
[2020-12-10] MEDS: Lisinopril 10 MG Tablet PO (09:56)
--- NOTE | 2020-12-10 10:47 | ECHOCS_ITS ---
Reason For Study: CHF Procedure This was a 2D Doppler, Color Flow transthoracic echocardiogram. The study was technically difficult. Contrast injection was performed. Exam performed portable in patient room. Left Ventricle Normal LV size. Moderate concentric left ventricular hypertrophy. Left ventricular systolic function is normal. The estimated ejection fraction is 65 %. No regional wall motion abnormalities noted. Right Ventricle Normal RV size. Normal systolic function. Atria Normal left atrium. Normal right atrium. Mitral Valve Bileaflet diffuse mitral valve thickening. Mild-Moderate (1-2+) eccentric mitral valve insufficiency. Tricuspid Valve Normal tricuspid valve. Mild to moderate (1-2+) tricuspid valve insufficiency. Pulmonary artery systolic pressure is 46 mmHg. Aortic Valve Moderate aortic stenosis. Peak aortic valve gradient 52 mmHg. Mean aortic valve gradient 20 mmHg. Mild (1+) aortic valve insufficiency. Normal prosthetic aortic valve. Pulmonic Valve The pulmonic valve is not well visualized. Great Vessels Normal aortic root. Pericardium/Pleural No pericardial effusion. Medication Diluted definity 3ml given slow IV push to enhance endocardial definition. MMode/2D Measurements & Calculations LVIDd: 5.1 cm IVSd: 1.3 cm LVOT diam: 2.0 cm LVIDs: 3.3 cm LVPWd: 1.4 cm FS: 34.5 % LVOT area: 3.2 cm2 LA dimension: 4.2 cm LAV(MOD-bp): 92.5 ml LA A4 area: 26.2 cm2 LAV(MOD-bp) Indexed: 52.4 ml/m2 LAV(MOD-sp2): 98.9 ml LAV(MOD-sp4): 83.6 ml RA A4 area: 19.3 cm2 Time Measurements MV dec time: 0.20 sec Doppler Measurements & Calculations MV E max chandra: 125.5 cm/sec Lat Peak E' Chandra: 6.8 cm/sec Med Peak E' Chandra: 4.3 cm/sec MV A max chandra: 47.7 cm/sec E/E' lat: 18.3 E/E' med: 29.5 MV E/A: 2.6 MV V2 max: 128.1 cm/sec MV P1/2t max chandra: 129.0 cm/sec Ao V2 max: 360.4 cm/sec MV max P.6 mmHg MV P1/2t: 131.2 msec Ao max P.0 mmHg MV V2 mean: 63.8 cm/sec MV dec slope: 288.2 cm/sec2 Ao V2 mean: 190.9 cm/sec MV mean P.0 mmHg Ao mean P.4 mmHg MV V2 VTI: 46.8 cm MVA(P1/2t): 1.7 cm2 Ao V2 VTI: 87.9 cm MVA(VTI): 1.4 cm2 SHAWNA(I,D): 0.73 cm2 SHAWNA(V,D): 0.79 cm2 LV V1 max: 88.5 cm/sec SV(LVOT): 64.0 ml PA V2 max: 107.9 cm/sec LV V1 max P.1 mmHg LV V1 mean P.5 mmHg LV V1 mean: 55.7 cm/sec LV V1 VTI: 19.9 cm TR max chandra: 322.2 cm/sec TR max P.5 mmHg Interpretation Summary Normal LV size. Moderate concentric left ventricular hypertrophy. Left ventricular systolic function is normal. The estimated ejection fraction is 65 %. Mild to moderate (1-2+) tricuspid valve insufficiency. Pulmonary artery systolic pressure is 46 mmHg. Contrast injection was performed. Ordering Physician: Smooth Abbasi Referring Physician: NAREN BATES Performed By: Milton Vela RCS
[2020-12-10] MEDS: 0.9% Saline Lock 10 ML Syringe IV (11:01)
--- NOTE | 2020-12-10 11:11 | PCM.CONS.GEN ---
Reason for Consult Date of Consultation: 12/10/20 Reason for Consultation: PAD History of Present Illness: The patient is a 75 year old F came in with some cellulitis and worsening wound. Found to have heel wound and right great toe ulcer. Had some vascular lab studies that showed noncompressible on the right and the left ASAD 0.48. Decreased waveform with monophasic flow. No DVT noted. Appears to have moderate PAD. Unable to get a good femoral pulse since concerned about some aortoiliac occlusive disease as well. Patient has not done much walking for significant amount of time secondary to COPD. Came in to this current hospitalization through a wheelchair she uses mostly. No coronary history. Patient aortic valve in 2017. A. fib on anticoagulation. No walking. COPD. Quit smoking 2017. Diabetic for 20 years. COPD. Hypertension on meds. [] Past Medical History Past Medical History (Chronic Problems): Chronic Problems (Last Reviewed 12/06/20 @ 17:[address] Juan Blunt DO) Obesity (Chronic) Acute on chronic diastolic CHF (congestive heart failure) (Chronic) COPD exacerbation (Chronic) Diabetes (Chronic) Toxic multinodular goiter (Chronic) Polyneuropathy due to type 2 diabetes mellitus (Chronic) COPD (chronic obstructive pulmonary disease) (Chronic) Acute on chronic respiratory failure with hypoxia (Chronic) Paroxysmal atrial fibrillation (Chronic) Anemia (Chronic) Non-rheumatic aortic stenosis (Chronic) H/O aortic valve replacement (Chronic 12/03/16) TAVR: 23 mm Guillaume-Sapiens S3 valve 12/03/2016 Chronic diastolic heart failure (Chronic) Left carotid artery stenosis (Chronic) Right bundle branch block (RBBB) (Chronic) Hyperlipidemia (Chronic) Essential (primary) hypertension (Chronic) Medical History: Medical History (Last Reviewed 12/10/20 @ 11:[address] Brown Vargas MD) Paroxysmal atrial fibrillation (Chronic) I48.0 Anemia (Chronic) D64.9 Non-rheumatic aortic stenosis (Chronic) I35.0 Chronic diastolic heart failure (Chronic) I50.32 Left carotid artery stenosis (Chronic) I65.22 Right bundle branch block (RBBB) (Chronic) I45.10 Hyperlipidemia (Chronic) E78.5 Essential (primary) hypertension (Chronic) I10 Type 2 diabetes mellitus E11.9 Anxiety F41.9 Arthritis M19.90 Asthma J45.909 Breast lump N63.0 COPD (chronic obstructive pulmonary disease) J44.9 Carotid artery stenosis I65.29 Carpal tunnel syndrome G56.00 Depression F32.9 Fibromyalgia M79.7 GERD (gastroesophageal reflux disease) K21.9 H/O transfusion of whole blood Z92.89 Hypothyroidism E03.9 IBS (irritable bowel syndrome) K58.9 MTHFR mutation E72.12 Obesity E66.9 Osteoporosis M81.0 RLS (restless legs syndrome) G25.81 Skin cancer C44.90 Tuberculosis A15.9 Secondary pulmonary arterial hypertension I27.21 Thrombocytopenia D69.6 Secondary to sepsis versus heparin-induced thrombocytopenia Non-STEMI (non-ST elevated myocardial infarction) (Inactive) Onset Date: 09/27/19 I21.4 Seasonal allergies J30.2 Allergies ciprofloxacin [From Cipro] Allergy (Verified 12/06/20 14:44) Rash ciprofloxacin HCl [From Cipro] Allergy (Verified 12/06/20 14:44) Rash gabapentin [From Neurontin] Allergy (Verified 12/06/20 14:44) Rash heparin Allergy (Verified 12/06/20 14:44) Low platelets Home Medications: Ambulatory Orders Medication Instructions Recorded Albuterol Aerosols [Ventolin 2.5 mg INHALATION Q4H PRN PRN 09/26/19 Aerosols] Albuterol IH (ProAir) [Proair Hfa] 2 puff INHALATION Q6H PRN PRN 09/26/19 Cyanocobalamin (Vitamin B-12) 1,000 mcg PO DAILY 09/26/19 [Vitamin B-12] Fluticasone 0.05% [Flonase Nasal 2 spray NASAL DAILY 09/26/19 [place]] Fluticasone/Salmeterol [Advair Hfa 2 puff INHALATION BID 09/26/19 115-21 Mcg Inhaler] Insulin Aspart [Novolog Flexpen] 10 units SUBCUT TIDCM 09/26/19 Iron Polysaccharide Complex 150 mg PO BID 09/26/19 [Ferrex 150] L.acidoph,Paracasei, B.lactis 1 ea PO DAILY 09/26/19 [Probiotic] Nystatin [Nyamyc] 30 gm TP BID 09/26/19 Paroxetine HCl [Paxil] 40 mg PO QHS 09/26/19 Ropinirole HCl 2 mg PO BID 09/26/19 Suvorexant [Belsomra] 20 mg PO QHS 09/26/19 Tiotropium [place] [Spiriva] 18 mcg IH DAILY 09/26/19 Atorvastatin Calcium [Lipitor] 80 mg PO QHS #30 tab 09/29/19 Oxycodone HCl/Acetaminophen 1 tab PO TID PRN 09/30/19 [Percocet 10-325 mg Tablet] calcium carbonate 500 mg (1,250 1 tab PO DAILY tab 01/11/20 mg)-vitamin D3 200 unit tablet insulin detemir U-100 100 unit/mL 40 unit SC QHS ml 05/05/20 subcutaneous solution lisinopril 10 mg tablet 10 mg PO DAILY 05/05/20 furosemide 40 mg tablet 80 mg PO DAILY tab 05/13/20 potassium chloride 10 mEq 10 meq PO BID tab 05/13/20 tablet,extended release denosumab 60 mg/mL subcutaneous 60 mg SC [id number] #1 ml 08/04/20 syringe metoprolol tartrate 25 mg tablet 25 mg PO BID #60 tab 08/06/20 levothyroxine 25 mcg tablet 25 mcg PO DAILY #30 tab 09/03/20 omeprazole 20 mg capsule,delayed 40 mg PO DAILY cap 09/03/20 release amiodarone 200 mg tablet 200 mg PO DAILY #90 tab 10/02/20 apixaban 2.5 mg tablet 2.5 mg PO BID #60 tab 10/07/20 nitroglycerin 0.4 mg sublingual 0.4 mg SUBLINGUAL PRN PRN #25 tab 10/30/20 tablet Furosemide 40 mg PO 1600 12/06/20 Surgical History: Surgical History (Last Reviewed 12/10/20 @ 11:[address] Brown Vargas MD) H/O aortic valve replacement (Chronic) Onset Date: 12/03/16 Z95.2 TAVR: 23 mm Guillaume-Sapiens S3 valve 12/03/2016 H/O: hysterectomy Z98.890, Z90.710 H/O laminectomy Z98.890 History of left heart catheterization Onset Date: 09/03/16 Z98.890 History of tympanoplasty Z98.890 Hx of melanoma excision Z98.890, Z85.820 1997 Hx of rotator cuff surgery Z98.890 JAIME S/P hip replacement Z96.649 S/p bilateral carpal tunnel release Z98.890 Surgical History: appendectomy - Right hip replacement, back surgery, laminectomy, carpal tunnel surgery, right leg hematoma extraction, hysterectomy, rotator cuff repair, total hip arthroplasty, - - carpal tunnel, RLE DVT Psychiatric History: Anxiety, Depression PIPEFITTER History: No pertinent PIPEFITTER history Smoking Status: Former smoker - *Family History Maternal Family History: Family History (Last Reviewed 12/06/20 @ 17:[address] Juan Blunt DO) Mother Arthritis Diabetes Hormone deficiency CVA (cerebral vascular accident) Colon cancer Cancer Sister Bleeding disorder CVA (cerebral vascular accident) Colon cancer Daughter Cancer Seizures Father Diabetes Leukemia Grandmother Diabetes Unknown Asthma Heart disease Hypertension High cholesterol Thyroid disorder Osteoporosis Cancer Tuberculosis History Items: No pertinent history Review of Systems Constitutional: Denies: Chills, Fever, Weight Change HEENT: Denies: Head Aches, Sinus Congestion, Sinus Drainage Cardiovascular: Denies: Chest Pain, Palpitations Respiratory: Denies: Cough, Shortness of breath at rest, Sputum production Gastrointestinal: Denies: Abdominal Pain, Nausea, Vomiting Genitourinary: Denies: Dysuria Musculoskeletal: Reports: - - Wounds noted right foot Skin: Reports: Wounds - Wounds noted right foot Patient Problems: Active and Suspected Problems (Last Reviewed 12/06/20 @ 17:[address] Juan Blunt DO) Fracture of right great toe (Acute) Cellulitis of right leg (Acute) - Physical Exam Vitals/I&O's: Vital Signs Temp Pulse Resp BP Pulse Ox 98.3 F 58 L 18 155/58 H 94 12/10/20 09:53 12/10/20 09:56 12/10/20 09:53 12/10/20 09:53 12/10/20 09:53 Oxygen Flow Rate (L/min) 3 Oxygen Delivery Method Nasal Cannula Weight: 181 lb 3.52 oz Body Mass Index (BMI) 36.6 Finger Stick Blood Glucose 112 Intake and Output for Last 24 Hours 12/08/20 12/09/20 12/10/20 23:59 23:59 23:59 Intake Total 1712.25 / 2212.25 2092.25 / 2092.25 317.13 / 317.13 Output Total 3975 / 5175 3250 / 3250 500 / 500 Balance -2262.75 / -2962.75 -1157.75 / -1157.75 -182.87 / -182.87 General: Alert, Oriented x3 HEENT: Atraumatic, PERRLA Oral: Moist Mucosa Neck: Supple, No JVD Lungs: Clear to auscultation Cardiovascular: Regular rate Abdomen: Bowel Sounds Present, Soft, Non Tender Extremities: - - Unable to feel femoral pulses. Wounds noted on right leg and right foot Skin: - - Wounds noted right heel and great toe Musculoskeletal: - Microbiology Past 72 Hours 12/06/20 16:28 Blood Culture (Wb) - Left Wrist Blood Culture - Preliminary No growth in 48 hours. 12/06/20 15:45 Blood Culture (Wb) - Anticubital Right Blood Culture - Preliminary No growth in 48 hours. 12/06/20 18:40 Wound - Toe Gram Stain - Final 12/06/20 18:40 Wound - Toe Wound Culture - Final Serratia marcescens Klebsiella pneumoniae sp pneum Enterococcus faecalis 12/06/20 18:40 Wound - Toe Anaerobic Culture - Preliminary Checking for anaerobes, further studies to follow. Laboratory Results 12/09/20 16:03: POC Glucose 153 H 12/09/20 22:04: POC Glucose 215 H 12/10/20 06:58: Sodium 140, Potassium 4.0, Chloride 105, Carbon Dioxide 31.0, Anion Gap 4 L, BUN 39 H, Creatinine 1.51 H, Estim Creat Clear Calc 42.42, Est GFR (MDRD) Af Amer 43 L, Est GFR (MDRD) Non-Af 36 L, BUN/Creatinine Ratio 25.8 H, Glucose 232 H, Calcium 8.5 Current Medications Acetaminophen (Acetaminophen 325 Mg Tablet) 650 mg PO Q6H PRN PRN PRN Reason: Pain Score 1-10/Temp > 100.7 F Last Admin: 12/09/20 20:28 Dose: 650 mg Documented by: Albuterol Sulfate (Albuterol 2.5 Mg/3 Ml Vial.Neb.) 2.5 mg INHALATION Q4H PRN PRN PRN Reason: SOB &/OR WHEEZING Albuterol/Ipratropium (Ipratropium/Albuterol Sulfate 3 Ml Ampul.Neb) 3 ml INHALATION Q6HWA.RT DIAMOND Last Admin: 12/10/20 06:58 Dose: 3 ml Documented by: Amiodarone HCl (Amiodarone 200 Mg Tablet) 200 mg PO DAILY [facility] Last Admin: 12/10/20 09:56 Dose: 200 mg Documented by: Amlodipine Besylate (Amlodipine 10 Mg Tablet) 10 mg PO DAILY [facility] Last Admin: 12/10/20 09:55 Dose: 10 mg Documented by: Aspirin (Aspirin E.C. 81 Mg Tablet) 81 mg PO DAILY@0800 [facility] Last Admin: 12/10/20 08:28 Dose: 81 mg Documented by: Atorvastatin Calcium (Atorvastatin Calcium 80 Mg Tablet) 80 mg PO QHS [facility] Last Admin: 12/09/20 22:11 Dose: 80 mg Documented by: Budesonide (Budesonide Respules 0.5 Mg/2 Ml Ampul.Neb.) 0.5 mg INHALATION Q12H.RT [facility] Last Admin: 12/10/20 06:58 Dose: 0.5 mg Documented by: Calcium/Vitamin D (Calcium Carb/Vitamin D 1 Tablet Tablet) 1 tablet PO DAILYCM [facility] Last Admin: 12/10/20 08:28 Dose: 1 tablet Documented by: Cyanocobalamin (Cyanocobalamin 500 Mcg Tablet) 1,000 mcg PO DAILY [facility] Last Admin: 12/10/20 08:28 Dose: 1,000 mcg Documented by: Dextrose (Dextrose 50%-Water 25 Gm/50 Ml Disp.Syrin) 0 gm IV X1 PRN; Protocol PRN Reason: Hypoglycemia Fluticasone Propionate (Fluticasone 0.05% 1 [place] Nasal.Sry) 2 spray NASAL DAILY [facility] Last Admin: 12/10/20 09:56 Dose: 2 sprays Documented by: Glucagon (Glucagon 1 Mg/Ml Syringe) 1 mg IM .X1 PRN PRN Reason: Hypoglycemia Hydralazine HCl (Hydralazine 20 Mg/Ml Vial) 10 mg IV Q4H PRN PRN PRN Reason: sbp > 180 or DBP > 120 Hydralazine HCl (Hydralazine 50 Mg Tablet) 50 mg PO BID [facility] Last Admin: 12/10/20 09:56 Dose: 50 mg Documented by: Sodium Chloride () 250 mls @ 15 mls/hr IV .[id number] PRN PRN Reason: Saline Flush Last Infusion: 12/10/20 10:01 Dose: 0 mls/hr Documented by: Sodium Chloride () 250 mls @ 15 mls/hr IV .[id number] PRN PRN Reason: Additional IVPB Infusion Last Infusion: 12/10/20 06:21 Dose: Infused Documented by: Piperacillin Sod/Tazobactam (Sod 3.375 gm/ Sodium Chloride) 50 mls @ 12.5 mls/hr IV Q12 [facility] Last Infusion: 12/10/20 11:00 Dose: 0 mls/hr Documented by: Sodium Chloride () 1,000 mls @ 75 mls/hr IV .[id number] [facility] Stop: 12/11/20 00:09 Insulin Glargine (Insulin Glargine 100 Units/Ml Pen) 30 units SC QHS [facility] Last Admin: 12/09/20 22:06 Dose: 30 units Documented by: Insulin Human Lispro (Insulin Lispro 100 Unit/Ml Insuln.Pen) 0 unit SC TIDCM [facility]; Protocol Last Admin: 12/10/20 08:31 Dose: 3 units Documented by: Insulin Human Lispro (Insulin Lispro 100 Unit/Ml Insuln.Pen) 5 unit SC TIDCM [facility] Last Admin: 12/10/20 08:31 Dose: 5 u Documented by: Lactobacillus Acidophilus (Lactobacillus Acidophilus) 1 tablet PO DAILY [facility] Last Admin: 12/10/20 09:55 Dose: 1 tablet Documented by: Levothyroxine Sodium (Levothyroxine 25 Mcg Tablet) 25 mcg PO DAILY@0600 [facility] Last Admin: 12/10/20 06:21 Dose: 25 mcg Documented by: Lisinopril (Lisinopril 10 Mg Tablet) 10 mg PO DAILY [facility] Last Admin: 12/10/20 09:56 Dose: 10 mg Documented by: Metoprolol Tartrate (Metoprolol Tartrate 25 Mg Tablet) 25 mg PO BID [facility] Last Admin: 12/10/20 09:55 Dose: 25 mg Documented by: Nitroglycerin (Nitroglycerin (Inpatient Use) 0.4 Mg Tab.Subl) 0.4 mg SUBLINGUAL Q5M PRN PRN Reason: chest pain Nystatin (Nystatin Powder 15gm Bottle) 1 applic TOPICAL BID [facility]; Protocol Last Admin: 12/10/20 09:56 Dose: 1 applicatio Documented by: Ondansetron HCl (Ondansetron 4 Mg/2 Ml Vial) 4 mg IV Q8H PRN PRN PRN Reason: NAUSEA/VOMITING Oxycodone HCl (Oxycodone 5 Mg Tablet) 10 mg PO TID PRN PRN PRN Reason: PAIN 1-07/26 Last Admin: 12/09/20 23:56 Dose: 10 mg Documented by: Pantoprazole Sodium (Pantoprazole Sodium 40 Mg Tablet) 40 mg PO DAILY [facility] Last Admin: 12/10/20 08:27 Dose: 40 mg Documented by: Paroxetine HCl (Paroxetine 20 Mg Tablet) 40 mg PO DAILY [facility] Last Admin: 12/10/20 08:29 Dose: 40 mg Documented by: Polysaccharide Iron Complex (Iron Polysaccharide Complex 150 Mg Capsule) 150 mg PO DAILYCM [facility] Last Admin: 12/10/20 08:27 Dose: 150 mg Documented by: Pramipexole Dihydrochloride (Pramipexole Di-Hcl 1 Mg Tablet) 1 mg PO QHS [facility] Last Admin: 12/09/20 22:11 Dose: 1 mg Documented by: Sodium Chloride (0.9% Saline Lock 10 Ml Syringe) 10 - 40 ml IV UD PRN PRN Reason: SALINE FLUSH Last Admin: 12/10/20 11:01 Dose: 20 ml Documented by: Assessment/Plan All Active Problems (Last Reviewed 12/06/20 @ 17:[address] Juan Blunt, DO) Fracture of right great toe (Acute) Cellulitis of right leg (Acute) 1. PAD. Patient appears a probably of moderate severe PAD. Unable to get a femoral pulse. We will get a CTA abdomen pelvis with runoff to better evaluate a level of occlusive disease. And plan intervention as needed. Assume she will need some improved flow to help with the healing of these areas.
--- NOTE | 2020-12-10 11:26 | CON.PCM_ITS ---
Consultation - Renal PCP/ Referring MD: Requesting physician: [] Primary care physician: YOLIS Merrill - History of Present Illness History of Present Illness: The patient is a 75 year old F PMH of HTRN, COPD, diastolic heart failure, PAfib, s./p replacement 2016, and CKD stage 3. Patient presented o 12/06 with redness and cellulitis prachi the right LE after she trauma to right great toe. xray showed moderate displaced fracture of the 1t great phalanx. Patient is being treated for cellulitis. MRI is negative for OM VS is consulted and planning for possible intervention for PVD Renal service is consulted for possible IV contrast exposure to minimize EMILIA Cr today is at baseline. lasix on hold.On Lisinopril 10 mg PO daily ROS: 12 system review is negative except right leg pain [] - Allergies Allergies: Allergies ciprofloxacin [From Cipro] Allergy (Verified 12/06/20 14:44) Rash ciprofloxacin HCl [From Cipro] Allergy (Verified 12/06/20 14:44) Rash gabapentin [From Neurontin] Allergy (Verified 12/06/20 14:44) Rash heparin Allergy (Verified 12/06/20 14:44) Low platelets - Current Medications Current Medications: Current Medications Acetaminophen (Acetaminophen 325 Mg Tablet) 650 mg PO Q6H PRN PRN PRN Reason: Pain Score 1-10/Temp > 100.7 F Last Admin: 12/09/20 20:28 Dose: 650 mg Documented by: Albuterol Sulfate (Albuterol 2.5 Mg/3 Ml Vial.Neb.) 2.5 mg INHALATION Q4H PRN PRN PRN Reason: SOB &/OR WHEEZING Albuterol/Ipratropium (Ipratropium/Albuterol Sulfate 3 Ml Ampul.Neb) 3 ml INHALATION Q6HWA.RT [facility] Last Admin: 12/10/20 06:58 Dose: 3 ml Documented by: Amiodarone HCl (Amiodarone 200 Mg Tablet) 200 mg PO DAILY [facility] Last Admin: 12/10/20 09:56 Dose: 200 mg Documented by: Amlodipine Besylate (Amlodipine 10 Mg Tablet) 10 mg PO DAILY [facility] Last Admin: 12/10/20 09:55 Dose: 10 mg Documented by: Aspirin (Aspirin E.C. 81 Mg Tablet) 81 mg PO DAILY@0800 [facility] Last Admin: 12/10/20 08:28 Dose: 81 mg Documented by: Atorvastatin Calcium (Atorvastatin Calcium 80 Mg Tablet) 80 mg PO QHS [facility] Last Admin: 12/09/20 22:11 Dose: 80 mg Documented by: Budesonide (Budesonide Respules 0.5 Mg/2 Ml Ampul.Neb.) 0.5 mg INHALATION Q12H.RT [facility] Last Admin: 12/10/20 06:58 Dose: 0.5 mg Documented by: Calcium/Vitamin D (Calcium Carb/Vitamin D 1 Tablet Tablet) 1 tablet PO DAILYCM [facility] Last Admin: 12/10/20 08:28 Dose: 1 tablet Documented by: Cyanocobalamin (Cyanocobalamin 500 Mcg Tablet) 1,000 mcg PO DAILY [facility] Last Admin: 12/10/20 08:28 Dose: 1,000 mcg Documented by: Dextrose (Dextrose 50%-Water 25 Gm/50 Ml Disp.Syrin) 0 gm IV X1 PRN; Protocol PRN Reason: Hypoglycemia Fluticasone Propionate (Fluticasone 0.05% 1 [place] Nasal.Sry) 2 spray NASAL DAILY [facility] Last Admin: 12/10/20 09:56 Dose: 2 sprays Documented by: Glucagon (Glucagon 1 Mg/Ml Syringe) 1 mg IM .X1 PRN PRN Reason: Hypoglycemia Hydralazine HCl (Hydralazine 20 Mg/Ml Vial) 10 mg IV Q4H PRN PRN PRN Reason: sbp > 180 or DBP > 120 Hydralazine HCl (Hydralazine 50 Mg Tablet) 50 mg PO BID [facility] Last Admin: 12/10/20 09:56 Dose: 50 mg Documented by: Sodium Chloride () 250 mls @ 15 mls/hr IV .[id number] PRN PRN Reason: Saline Flush Last Infusion: 12/10/20 10:01 Dose: 0 mls/hr Documented by: Sodium Chloride () 250 mls @ 15 mls/hr IV .[id number] PRN PRN Reason: Additional IVPB Infusion Last Infusion: 12/10/20 06:21 Dose: Infused Documented by: Piperacillin Sod/Tazobactam (Sod 3.375 gm/ Sodium Chloride) 50 mls @ 12.5 mls/hr IV Q12 DIAMOND Last Infusion: 12/10/20 11:00 Dose: 0 mls/hr Documented by: Sodium Chloride () 1,000 mls @ 75 mls/hr IV .[id number] [facility] Stop: 12/11/20 00:09 Insulin Glargine (Insulin Glargine 100 Units/Ml Pen) 30 units SC QHS [facility] Last Admin: 12/09/20 22:06 Dose: 30 units Documented by: Insulin Human Lispro (Insulin Lispro 100 Unit/Ml Insuln.Pen) 0 unit SC TIDCM [facility]; Protocol Last Admin: 12/10/20 08:31 Dose: 3 units Documented by: Insulin Human Lispro (Insulin Lispro 100 Unit/Ml Insuln.Pen) 5 unit SC TIDCM [facility] Last Admin: 12/10/20 08:31 Dose: 5 u Documented by: Lactobacillus Acidophilus (Lactobacillus Acidophilus) 1 tablet PO DAILY [facility] Last Admin: 12/10/20 09:55 Dose: 1 tablet Documented by: Levothyroxine Sodium (Levothyroxine 25 Mcg Tablet) 25 mcg PO DAILY@0600 [facility] Last Admin: 12/10/20 06:21 Dose: 25 mcg Documented by: Lisinopril (Lisinopril 10 Mg Tablet) 10 mg PO DAILY [facility] Last Admin: 12/10/20 09:56 Dose: 10 mg Documented by: Metoprolol Tartrate (Metoprolol Tartrate 25 Mg Tablet) 25 mg PO BID [facility] Last Admin: 12/10/20 09:55 Dose: 25 mg Documented by: Nitroglycerin (Nitroglycerin (Inpatient Use) 0.4 Mg Tab.Subl) 0.4 mg SUBLINGUAL Q5M PRN PRN Reason: chest pain Nystatin (Nystatin Powder 15gm Bottle) 1 applic TOPICAL BID [facility]; Protocol Last Admin: 12/10/20 09:56 Dose: 1 applicatio Documented by: Ondansetron HCl (Ondansetron 4 Mg/2 Ml Vial) 4 mg IV Q8H PRN PRN PRN Reason: NAUSEA/VOMITING Oxycodone HCl (Oxycodone 5 Mg Tablet) 10 mg PO TID PRN PRN PRN Reason: PAIN 1-1010 Last Admin: 12/09/20 23:56 Dose: 10 mg Documented by: Pantoprazole Sodium (Pantoprazole Sodium 40 Mg Tablet) 40 mg PO DAILY [facility] Last Admin: 12/10/20 08:27 Dose: 40 mg Documented by: Paroxetine HCl (Paroxetine 20 Mg Tablet) 40 mg PO DAILY [facility] Last Admin: 12/10/20 08:29 Dose: 40 mg Documented by: Polysaccharide Iron Complex (Iron Polysaccharide [facility] 150 [facility]ule) [facility] Last Admin: 12/10/20 08:27 Dose: 150 mg Documented by: Pramipexole Dihydrochloride (Pramipexole Di-Hcl 1 Mg Tablet) 1 mg PO QHS [facility] Last Admin: 12/09/20 22:11 Dose: 1 mg Documented by: Sodium Chloride (0.9% Saline Lock 10 Ml Syringe) 10 - 40 ml IV UD PRN PRN Reason: SALINE FLUSH Last Admin: 12/10/20 11:01 Dose: 20 ml Documented by: - Past Medical History Past Medical History (Chronic Problems): Chronic Problems (Last Reviewed 12/10/20 @ 11:[address] Brown Vargas MD) Obesity (Chronic) Acute on chronic diastolic CHF (congestive heart failure) (Chronic) COPD exacerbation (Chronic) Diabetes (Chronic) Toxic multinodular goiter (Chronic) Polyneuropathy due to type 2 diabetes mellitus (Chronic) COPD (chronic obstructive pulmonary disease) (Chronic) Acute on chronic respiratory failure with hypoxia (Chronic) Paroxysmal atrial fibrillation (Chronic) Anemia (Chronic) Non-rheumatic aortic stenosis (Chronic) H/O aortic valve replacement (Chronic 12/03/16) TAVR: 23 mm Guillaume-Sapiens S3 valve 12/03/2016 Chronic diastolic heart failure (Chronic) Left carotid artery stenosis (Chronic) Right bundle branch block (RBBB) (Chronic) Hyperlipidemia (Chronic) Essential (primary) hypertension (Chronic) - Past Surgical History Surgical History: appendectomy - Right hip replacement, back surgery, laminectomy, carpal tunnel surgery, right leg hematoma extraction, hysterectomy, rotator cuff repair, total hip arthroplasty, - - carpal tunnel, RLE DVT - Social History Smoking Status: Former smoker - Family History Maternal Family History: Family History (Last Reviewed 12/06/20 @ 17:[address] Juan Blunt DO) Mother Arthritis Diabetes Hormone deficiency CVA (cerebral vascular accident) Colon cancer Cancer Sister Bleeding disorder CVA (cerebral vascular accident) Colon cancer Daughter Cancer Seizures Father Diabetes Leukemia Grandmother Diabetes Unknown Asthma Heart disease Hypertension High cholesterol Thyroid disorder Osteoporosis Cancer Tuberculosis History Items: No pertinent history Patient Problems: Active and Suspected Problems (Last Reviewed 12/10/20 @ 11:[address] Brown Vargas MD) Fracture of right great toe (Acute) Cellulitis of right leg (Acute) - Physical Exam Vitals/I&O's: Vital Signs Temp Pulse Resp BP Pulse Ox 98.3 F 58 L 18 155/58 H 94 12/10/20 09:53 12/10/20 09:56 12/10/20 09:53 12/10/20 09:53 12/10/20 09:53 Oxygen Flow Rate (L/min) 3 Oxygen Delivery Method Nasal Cannula Weight: 82.2 kg Body Mass Index (BMI) 36.6 Finger Stick Blood Glucose 112 Intake and Output for Last 24 Hours 12/08/20 12/09/20 12/10/20 23:59 23:59 23:59 Intake Total 1712.25 / 2212.25 2092.25 / 2092.25 317.13 / 317.13 Output Total 3975 / 5175 3250 / 3250 500 / 500 Balance -2262.75 / -2962.75 -1157.75 / -1157.75 -182.87 / -182.87 General: Alert, Oriented x3 HEENT: Atraumatic Oral: Moist Mucosa Neck: Supple, No JVD Lungs: Clear to auscultation, Normal air movement, No rhonchi Cardiovascular: Regular rate, Regular Rhythm, Normal S1, Normal S2 Abdomen: Bowel Sounds Present, Soft, Non Tender, Non-Distended Extremities: No clubbing, No cyanosis, No edema Musculoskeletal: No Tenderness to Palpation of Joints or Extremities Lymphatic: No Cervical, Supraclavicular, or Inguinal Adenopathy Neurological: Cranial nerves II-XII grossly intact, Neuro grossly intact Psych/Mental Status: Appropriate Microbiology Past 72 Hours 12/06/20 16:28 Blood Culture (Wb) - Left Wrist Blood Culture - Preliminary No growth in 48 hours. 12/06/20 15:45 Blood Culture (Wb) - Anticubital Right Blood Culture - Preliminary No growth in 48 hours. 12/06/20 18:40 Wound - Toe Gram Stain - Final 12/06/20 18:40 Wound - Toe Wound Culture - Final Serratia marcescens Klebsiella pneumoniae sp pneum Enterococcus faecalis 12/06/20 18:40 Wound - Toe Anaerobic Culture - Preliminary Checking for anaerobes, further studies to follow. Laboratory Results 12/09/20 16:03: POC Glucose 153 H 12/09/20 22:04: POC Glucose 215 H 12/10/20 06:58: Sodium 140, Potassium 4.0, Chloride 105, Carbon Dioxide 31.0, Anion Gap 4 L, BUN 39 H, Creatinine 1.51 H, Estim Creat Clear Calc 42.42, Est GFR (MDRD) Af Amer 43 L, Est GFR (MDRD) Non-Af 36 L, BUN/Creatinine Ratio 25.8 H , Glucose 232 H, Calcium 8.5 Current Medications Acetaminophen (Acetaminophen 325 Mg Tablet) 650 mg PO Q6H PRN PRN PRN Reason: Pain Score 1-10/Temp > 100.7 F Last Admin: 12/09/20 20:28 Dose: 650 mg Documented by: Albuterol Sulfate (Albuterol 2.5 Mg/3 Ml Vial.Neb.) 2.5 mg INHALATION Q4H PRN PRN PRN Reason: SOB &/OR WHEEZING Albuterol/Ipratropium (Ipratropium/Albuterol Sulfate 3 Ml Ampul.Neb) 3 ml INHALATION Q6HWA.RT [facility] Last Admin: 12/10/20 06:58 Dose: 3 ml Documented by: Amiodarone HCl (Amiodarone 200 Mg Tablet) 200 mg PO DAILY [facility] Last Admin: 12/10/20 09:56 Dose: 200 mg Documented by: Amlodipine Besylate (Amlodipine 10 Mg Tablet) 10 mg PO DAILY [facility] Last Admin: 12/10/20 09:55 Dose: 10 mg Documented by: Aspirin (Aspirin E.C. 81 Mg Tablet) 81 mg PO DAILY@0800 [facility] Last Admin: 12/10/20 08:28 Dose: 81 mg Documented by: Atorvastatin Calcium (Atorvastatin Calcium 80 Mg Tablet) 80 mg PO QHS [facility] Last Admin: 12/09/20 22:11 Dose: 80 mg Documented by: Budesonide (Budesonide Respules 0.5 Mg/2 Ml Ampul.Neb.) 0.5 mg INHALATION Q12H.RT [facility] Last Admin: 12/10/20 06:58 Dose: 0.5 mg Documented by: Calcium/Vitamin D (Calcium Carb/Vitamin D 1 Tablet Tablet) [facility] Last Admin: 12/10/20 08:28 Dose: 1 tablet Documented by: Cyanocobalamin (Cyanocobalamin 500 Mcg Tablet) 1,000 mcg PO DAILY [facility] Last Admin: 12/10/20 08:28 Dose: 1,000 mcg Documented by: Dextrose (Dextrose 50%-Water 25 Gm/50 Ml Disp.Syrin) 0 gm IV X1 PRN; Protocol PRN Reason: Hypoglycemia Fluticasone Propionate (Fluticasone 0.05% 1 [place] Nasal.Sry) 2 spray NASAL DAILY [facility] Last Admin: 12/10/20 09:56 Dose: 2 sprays Documented by: Glucagon (Glucagon 1 Mg/Ml Syringe) 1 mg IM .X1 PRN PRN Reason: Hypoglycemia Hydralazine HCl (Hydralazine 20 Mg/Ml Vial) 10 mg IV Q4H PRN PRN PRN Reason: sbp > 180 or DBP > 120 Hydralazine HCl (Hydralazine 50 Mg Tablet) 50 mg PO BID [facility] Last Admin: 12/10/20 09:56 Dose: 50 mg Documented by: Sodium Chloride () 250 mls @ 15 mls/hr IV .[id number] PRN PRN Reason: Saline Flush Last Infusion: 12/10/20 10:01 Dose: 0 mls/hr Documented by: Sodium Chloride () 250 mls @ 15 mls/hr IV .[id number] PRN PRN Reason: Additional IVPB Infusion Last Infusion: 12/10/20 06:21 Dose: Infused Documented by: Piperacillin Sod/Tazobactam (Sod 3.375 gm/ Sodium Chloride) 50 mls @ 12.5 mls/hr IV Q12 DIAMOND Last Infusion: 12/10/20 11:00 Dose: 0 mls/hr Documented by: Sodium Chloride () 1,000 mls @ 75 mls/hr IV .[id number] [facility] Stop: 12/11/20 00:09 Insulin Glargine (Insulin Glargine 100 Units/Ml Pen) 30 units SC QHS [facility] Last Admin: 12/09/20 22:06 Dose: 30 units Documented by: Insulin Human Lispro (Insulin Lispro 100 Unit/Ml Insuln.Pen) 0 unit SC TIDCM [facility]; Protocol Last Admin: 12/10/20 08:31 Dose: 3 units Documented by: Insulin Human Lispro (Insulin Lispro 100 Unit/Ml Insuln.Pen) 5 unit SC TIDCM [facility] Last Admin: 12/10/20 08:31 Dose: 5 u Documented by: Lactobacillus Acidophilus (Lactobacillus Acidophilus) 1 tablet PO DAILY [facility] Last Admin: 12/10/20 09:55 Dose: 1 tablet Documented by: Levothyroxine Sodium (Levothyroxine 25 Mcg Tablet) 25 mcg PO DAILY@0600 [facility] Last Admin: 12/10/20 06:21 Dose: 25 mcg Documented by: Lisinopril (Lisinopril 10 Mg Tablet) 10 mg PO DAILY [facility] Last Admin: 12/10/20 09:56 Dose: 10 mg Documented by: Metoprolol Tartrate (Metoprolol Tartrate 25 Mg Tablet) 25 mg PO BID [facility] Last Admin: 12/10/20 09:55 Dose: 25 mg Documented by: Nitroglycerin (Nitroglycerin (Inpatient Use) 0.4 Mg Tab.Subl) 0.4 mg SUBLINGUAL Q5M PRN PRN Reason: chest pain Nystatin (Nystatin Powder 15gm Bottle) 1 applic TOPICAL BID [facility]; Protocol Last Admin: 12/10/20 09:56 Dose: 1 applicatio Documented by: Ondansetron HCl (Ondansetron 4 Mg/2 Ml Vial) 4 mg IV Q8H PRN PRN PRN Reason: NAUSEA/VOMITING Oxycodone HCl (Oxycodone 5 Mg Tablet) 10 mg PO TID PRN PRN PRN Reason: PAIN 1-1010 Last Admin: 12/09/20 23:56 Dose: 10 mg Documented by: Pantoprazole Sodium (Pantoprazole Sodium 40 Mg Tablet) 40 mg PO DAILY [facility] Last Admin: 12/10/20 08:27 Dose: 40 mg Documented by: Paroxetine HCl (Paroxetine 20 Mg Tablet) 40 mg PO DAILY [facility] Last Admin: 12/10/20 08:29 Dose: 40 mg Documented by: Polysaccharide Iron Complex (Iron Polysaccharide Complex 150 Mg Capsule) [facility] Last Admin: 12/10/20 08:27 Dose: 150 mg Documented by: Pramipexole Dihydrochloride (Pramipexole Di-Hcl 1 Mg Tablet) 1 mg PO QHS [facility] Last Admin: 12/09/20 22:11 Dose: 1 mg Documented by: Sodium Chloride (0.9% Saline Lock 10 Ml Syringe) 10 - 40 ml IV UD PRN PRN Reason: SALINE FLUSH Last Admin: 12/10/20 11:01 Dose: 20 ml Documented by: Assessment/Plan All Active Problems (Last Reviewed 12/10/20 @ 11:[address] Brown Vargas MD) Fracture of right great toe (Acute) Cellulitis of right leg (Acute) 1- CKD stage 3 from DNP Cr is at baseline 1.5 mg/dl. Agree with holding lasix and giving IVF NS at 75 cc/hour for 3-6 hours before contrast exposure to 3-6 hours after exposure Ok to continue ACEI check RFP in am 2- HTN: BP is acceptable Monitor BP while on IVF. Might add norvasc if increases 3- diastolic heart failure: compensating. hold lasix for now On NC 3-4 l/min at home. 4- Right LE cellulitis. Abx as per the primary service VS is following too Thank you for the consult Renal team will continue to follow.Please call if any question at [phone] d/w Dr. Elroy Jimenez MD
--- NOTE | 2020-12-10 11:53 | CT_ITS ---
STUDY: CTA OF THE ABDOMINAL AORTA AND BILATERAL LOWER EXTREMITIES REASON FOR EXAM: Female, 75 years old. pad RADIATION DOSAGE (If Supplied By Facility): CTDIvol = ( 11.36 ) mGy, DLP = ( 1356.42 ) mGycm TECHNIQUE: Axial CT angiography multi-detector data acquisition was obtained from the dome of the liver to the level of the ankles following intravenous administration of IV 100mL Isovue-370. Axial images and MIP images were reconstructed from the axial data set. Post-processing of the angiographic images was performed, with multiplanar reformation and 3D reconstruction. Individualized dose optimization techniques were used for this CT. TECHNICAL QUALITY: Good COMPARISON: None. Descriptors of Narrowing: None (0%) Mild (< 50%) Moderate (50-70%) Severe (70-90%) Subtotal/Total Occlusion (90-100%) Non-Evaluable (technically non-diagnostic FINDINGS: Tiny bilateral pleural effusions. Minimal degree of atelectasis at the left lung base. Bilateral renal cortical thinning. 1 cm cyst in the upper medial aspect of the left kidney. Abdominal aorta: No demonstrated narrowing. Atherosclerotic plaque formation. Celiac and superior mesenteric arteries: Nonstenotic plaque formation at the origin of the celiac artery and superior mesenteric artery. Inferior mesenteric artery: No demonstrated narrowing. Right renal artery(arteries): Nonstenotic plaque at the origin of the right renal artery. Left renal artery(arteries): Nonstenotic plaque at the origin of the left renal artery. Right common iliac artery: Nonstenotic calcific plaques. Right external iliac artery: Nonstenotic calcific plaques. Right internal iliac artery: No demonstrated narrowing. Left common iliac artery: Nonstenotic calcific plaques. Left external iliac artery: Nonstenotic calcific plaques. Left internal iliac artery: No demonstrated narrowing. RIGHT LOWER EXTREMITY Right common femoral artery: Nonstenotic calcific plaques. Right profundus femoris: Diffuse calcific plaques with multiple areas of stenosis. Right superficial femoral: Diffuse calcific plaques with multiple areas of focal stenoses throughout its course. Right popliteal artery: Multiple calcific plaques although the artery is patent. Right tibioperoneal trunk: No demonstrated narrowing. Right anterior tibial artery: No demonstrated narrowing. Right posterior tibial artery: Diffuse calcific plaques with multiple areas of focal stenosis although the flow is seen down to the level of the ankles. Right peroneal artery: Calcific plaques throughout the course of the peroneal artery although it is patent. LEFT LOWER EXTREMITY Left common femoral artery: Diffuse nonstenotic calcific plaques. Left profundus femoris: Diffuse calcific plaques. Left superficial femoral: Diffuse calcific plaques with areas of stenosis although there is patency of the vessel. Left popliteal artery: Diffuse calcific plaques. Left tibioperoneal trunk: No demonstrated narrowing. Left anterior tibial artery: No demonstrated narrowing. Left posterior tibial artery: Patent with multiple areas of calcific plaques. Left peroneal artery: Patent with multiple areas of calcific plaques. CT/CTA Abd w/Runoff W/WO Contrast IMPRESSION: Diffuse atherosclerotic changes of the abdominal aorta and both lower extremities although there is evidence of a three-vessel runoff in both lower extremities. Electronically Signed: Nimesh Rogers MD at 13:22 EST , Service support ,
[2020-12-10 12:00] LABS: Bedside Glucose 269 mg/dL (70-110)
[2020-12-10] MEDS: 0.9% Normal Saline 1,000 ML 75 ML IV (12:32)
[2020-12-10] MEDS: oxyCODONE 5 MG Tablet 10 MG PO ×2 (12:39→21:59)
[2020-12-10] MEDS: Acetaminophen 325 MG Tablet 650 MG PO ×2 (12:39→21:59)
--- NOTE | 2020-12-10 13:47 | PN.ID_ITS ---
Patient Problems: Active and Suspected Problems (Last Reviewed 12/10/20 @ 11:[address] Brown Vargas MD) Fracture of right great toe (Acute) Cellulitis of right leg (Acute) Subjective: Feeling ok, no fever, no n/v/d - Physical Exam Vitals/I&O's: Vital Signs Temp Pulse Resp BP Pulse Ox 98.3 F 58 L 18 155/58 H 94 12/10/20 09:53 12/10/20 09:56 12/10/20 09:53 12/10/20 09:53 12/10/20 09:53 Oxygen Flow Rate (L/min) 3 Oxygen Delivery Method Nasal Cannula Weight: 82.2 kg Body Mass Index (BMI) 36.6 Finger Stick Blood Glucose 112 Intake and Output for Last 24 Hours 12/08/20 12/09/20 12/10/20 23:59 23:59 23:59 Intake Total 1712.25 / 2212.25 2092.25 / 2092.25 317.13 / 317.13 Output Total 3975 / 5175 3250 / 3250 1500 / 1500 Balance -2262.75 / -2962.75 -1157.75 / -1157.75 -1182.87 / -1182.87 General: Alert, Cooperative, No apparent distress Lungs: Clear to auscultation, Normal air movement Cardiovascular: Regular rate, Regular Rhythm Abdomen: Soft, Non Tender, Non-Distended Skin: Ulcer/ Wound - BLE wrapped Microbiology Past 72 Hours 12/06/20 18:40 Wound - Toe Gram Stain - Final 12/06/20 18:40 Wound - Toe Wound Culture - Final Serratia marcescens Klebsiella pneumoniae sp pneum Enterococcus faecalis 12/06/20 18:40 Wound - Toe Anaerobic Culture - Final No anaerobic bacteria isolated. 12/06/20 16:28 Blood Culture (Wb) - Left Wrist Blood Culture - Preliminary No growth in 48 hours. 12/06/20 15:45 Blood Culture (Wb) - Anticubital Right Blood Culture - Preliminary No growth in 48 hours. Laboratory Results 12/09/20 16:03: POC Glucose 153 H 12/09/20 22:04: POC Glucose 215 H 12/10/20 06:58: Sodium 140, Potassium 4.0, Chloride 105, Carbon Dioxide 31.0, Anion Gap 4 L, BUN 39 H, Creatinine 1.51 H, Estim Creat Clear Calc 42.42, Est GFR (MDRD) Af Amer 43 L, Est GFR (MDRD) Non-Af 36 L, BUN/Creatinine Ratio 25.8 H , Glucose 232 H, Calcium 8.5 12/10/20 11:48: POC Glucose 269 H Current Medications Acetaminophen (Acetaminophen 325 Mg Tablet) 650 mg PO Q6H PRN PRN PRN Reason: Pain Score 1-10/Temp > 100.7 F Last Admin: 12/10/20 12:39 Dose: 650 mg Documented by: Albuterol Sulfate (Albuterol 2.5 Mg/3 Ml Vial.Neb.) 2.5 mg INHALATION Q4H PRN PRN PRN Reason: SOB &/OR WHEEZING Albuterol/Ipratropium (Ipratropium/Albuterol Sulfate 3 Ml Ampul.Neb) 3 ml INHALATION Q6HWA.RT [facility] Last Admin: 12/10/20 13:34 Dose: 3 ml Documented by: Amiodarone HCl (Amiodarone 200 Mg Tablet) 200 mg PO DAILY [facility] Last Admin: 12/10/20 09:56 Dose: 200 mg Documented by: Amlodipine Besylate (Amlodipine 10 Mg Tablet) 10 mg PO DAILY [facility] Last Admin: 12/10/20 09:55 Dose: 10 mg Documented by: Aspirin (Aspirin E.C. 81 Mg Tablet) 81 mg PO DAILY@0800 [facility] Last Admin: 12/10/20 08:28 Dose: 81 mg Documented by: Atorvastatin Calcium (Atorvastatin Calcium 80 Mg Tablet) 80 mg PO QHS [facility] Last Admin: 12/09/20 22:11 Dose: 80 mg Documented by: Budesonide (Budesonide Respules 0.5 Mg/2 Ml Ampul.Neb.) 0.5 mg INHALATION Q12H.RT [facility] Last Admin: 12/10/20 06:58 Dose: 0.5 mg Documented by: Calcium/Vitamin D (Calcium Carb/Vitamin D 1 Tablet Tablet) [facility] Last Admin: 12/10/20 08:28 Dose: 1 tablet Documented by: Cyanocobalamin (Cyanocobalamin 500 Mcg Tablet) 1,000 mcg PO DAILY [facility] Last Admin: 12/10/20 08:28 Dose: 1,000 mcg Documented by: Dextrose (Dextrose 50%-Water 25 Gm/50 Ml Disp.Syrin) 0 gm IV X1 PRN; Protocol PRN Reason: Hypoglycemia Fluticasone Propionate (Fluticasone 0.05% 1 [place] Nasal.Sry) 2 spray NASAL DAILY [facility] Last Admin: 12/10/20 09:56 Dose: 2 sprays Documented by: Glucagon (Glucagon 1 Mg/Ml Syringe) 1 mg IM .X1 PRN PRN Reason: Hypoglycemia Hydralazine HCl (Hydralazine 20 Mg/Ml Vial) 10 mg IV Q4H PRN PRN PRN Reason: sbp > 180 or DBP > 120 Hydralazine HCl (Hydralazine 50 Mg Tablet) 50 mg PO BID [facility] Last Admin: 12/10/20 09:56 Dose: 50 mg Documented by: Sodium Chloride () 250 mls @ 15 mls/hr IV .[id number] PRN PRN Reason: Saline Flush Last Infusion: 12/10/20 10:01 Dose: 0 mls/hr Documented by: Sodium Chloride () 250 mls @ 15 mls/hr IV .[id number] PRN PRN Reason: Additional IVPB Infusion Last Infusion: 12/10/20 06:21 Dose: Infused Documented by: Piperacillin Sod/Tazobactam (Sod 3.375 gm/ Sodium Chloride) 50 mls @ 12.5 mls/hr IV Q12 [facility] Last Infusion: 12/10/20 12:31 Dose: 12.5 mls/hr Documented by: Sodium Chloride () 1,000 mls @ 75 mls/hr IV .[id number] [facility] Stop: 12/10/20 16:51 Last Admin: 12/10/20 12:32 Dose: 75 mls/hr Documented by: Insulin Glargine (Insulin Glargine 100 Units/Ml Pen) 30 units SC QHS [facility] Last Admin: 12/09/20 22:06 Dose: 30 units Documented by: Insulin Human Lispro (Insulin Lispro 100 Unit/Ml Insuln.Pen) 0 unit SC TIDCM [facility]; Protocol Last Admin: 12/10/20 12:34 Dose: 3 units Documented by: Insulin Human Lispro (Insulin Lispro 100 Unit/Ml Insuln.Pen) 5 unit SC TIDCM [facility] Last Admin: 12/10/20 12:34 Dose: 5 u Documented by: Lactobacillus Acidophilus (Lactobacillus Acidophilus) 1 tablet PO DAILY [facility] Last Admin: 12/10/20 09:55 Dose: 1 tablet Documented by: Levothyroxine Sodium (Levothyroxine 25 Mcg Tablet) 25 mcg PO DAILY@0600 [facility] Last Admin: 12/10/20 06:21 Dose: 25 mcg Documented by: Lisinopril (Lisinopril 10 Mg Tablet) 10 mg PO DAILY [facility] Last Admin: 12/10/20 09:56 Dose: 10 mg Documented by: Metoprolol Tartrate (Metoprolol Tartrate 25 Mg Tablet) 25 mg PO BID [facility] Last Admin: 12/10/20 09:55 Dose: 25 mg Documented by: Nitroglycerin (Nitroglycerin (Inpatient Use) 0.4 Mg Tab.Subl) 0.4 mg SUBLINGUAL Q5M PRN PRN Reason: chest pain Nystatin (Nystatin Powder 15gm Bottle) 1 applic TOPICAL BID [facility]; Protocol Last Admin: 12/10/20 09:56 Dose: 1 applicatio Documented by: Ondansetron HCl (Ondansetron 4 Mg/2 Ml Vial) 4 mg IV Q8H PRN PRN PRN Reason: NAUSEA/VOMITING Oxycodone HCl (Oxycodone 5 Mg Tablet) 10 mg PO TID PRN PRN PRN Reason: PAIN 1-07/26 Last Admin: 12/10/20 12:39 Dose: 10 mg Documented by: Pantoprazole Sodium (Pantoprazole Sodium 40 Mg Tablet) 40 mg PO DAILY [facility] Last Admin: 12/10/20 08:27 Dose: 40 mg Documented by: Paroxetine HCl (Paroxetine 20 Mg Tablet) 40 mg PO DAILY [facility] Last Admin: 12/10/20 08:29 Dose: 40 mg Documented by: Polysaccharide Iron Complex (Iron Polysaccharide Complex 150 Mg Capsule) [facility] Last Admin: 12/10/20 08:27 Dose: 150 mg Documented by: Pramipexole Dihydrochloride (Pramipexole Di-Hcl 1 Mg Tablet) 1 mg PO QHS [facility] Last Admin: 12/09/20 22:11 Dose: 1 mg Documented by: Sodium Chloride (0.9% Saline Lock 10 Ml Syringe) 10 - 40 ml IV UD PRN PRN Reason: SALINE FLUSH Last Admin: 12/10/20 11:01 Dose: 20 ml Documented by: Medical Necessity - Tobacco Use Smoking Status: Former smoker Route of nutrition/ use of supplements: [] Nutritional Intake: [] IV Site: [] [place] Catheter: [] - Assessment/Plan Antibiotics: [] Assessment/Plan: [] Active and Suspected Problems (Last Reviewed 12/06/20 @ 17:[address] Juan Blunt, DO) Fracture of right great toe (Acute) Cellulitis of right leg (Acute) R 1st toe cellulitis and fracture - mri showed no osteo. Wound cx with klebs, serratia, and enterococcus. Wbc improving. Slowly rising Cr with h/o CKD. Cont zosyn while inpatient. Vascular studies showed bilateral severe arterial disease. Getting vascular eval, seen by Dr. Vargas today. Tentative plan for discharge will be 7 days more of linezolid 600mg bid and omnicef 300mg daily. Will follow
--- NOTE | 2020-12-10 14:42 | NURSING ---
heel bleeding after getting up with PT/OT.. heel re-inforced with 3- 4x4s and tape
--- NOTE | 2020-12-10 15:39 | CASEMGMT ---
Social Work SW met with pt in room and introduced self and role of SW. Pt confirms that she lives at home alone and would like to return there, however she does acknowledge that she will need short term rehab at SNF prior to return home. SW provided pt with list of SNF providers including quality and resource use date and consistent with the patient's preferred geographic region, medical needs and insurance network. SW also explained insurance coverage. Pt would like time to consider list of options. SW will meet with pt again tomorrow to confirm pt choice. Pt agreeable to this plan. MARLENY Silva
[2020-12-10 17:21] LABS: Bedside Glucose 154 mg/dL (70-110)
[2020-12-10] MEDS: Pramipexole Di-HCl 1 MG Tablet PO (22:01)
[2020-12-10] MEDS: Atorvastatin Calcium 80 MG Tablet PO (22:01)
[2020-12-10 23:20] LABS: Bedside Glucose 209 mg/dL (70-110)
[2020-12-11] VITALS (12 sets, daily range): BP systolic 118–172; BP diastolic 47–69; PULSE 52–80; RESP 14–18; TEMP 36.4–37; O2SAT 91–98
[2020-12-11] MEDS: oxyCODONE 5 MG Tablet 10 MG PO ×3 (04:15→16:04)
[2020-12-11] MEDS: Levothyroxine 25 MCG TABLET PO (04:15)
[2020-12-11] MEDS: Acetaminophen 325 MG Tablet 650 MG PO ×2 (04:15→23:02)
[2020-12-11 06:07] LABS: Absolute Lymphocyte Count 0.69 X10^3/uL (0.83-4.51); Absolute Neutrophil Count 6.3 X10^3/uL (2.0-7.7); Basophil# 0.02 X10^3/uL; Basophil% 0.3 % (0-1); Eosinophils% 1.3 % (0-5); Hematocrit 32.4 % (37-47); Hemoglobin 9.3 g/dL (12.0-15.0); Lymphocyte # 0.69 X10^3/ul (4.0); Lymphocyte % 8.7 % (19-41); Mean Corp Hgb Conc 28.7 g/dL (32-36); Mean Corpuscular Hgb 27.4 pg (27.0-32.0); Mean Corpuscular Volume 95.3 fL (81-99); Mean Platelet Vol. 12.9 fl (6.2-12.0); Monocyte# 0.81 X10^3/uL; Monocyte% 10.2 % (0-10); NRBC Flagged by Analyzer 0 % (0-5); Neutrophil # 6.25 X10^3/uL (2.7-7.7); Neutrophil % 78.9 % (47-70); POSITIVE MORPHOLOGY YES; Platelet Count 176 K/mm3 (150-450); RBC Distribution Width CV 23.8 % (11.6-14.6); White Blood Count 7.9 K/mm3 (4.4-11.0)
[2020-12-11 06:10] LABS: Differential Indicated SCAN CRITERIA MET
[2020-12-11 06:20] LABS: Hypochromasia RARE; Ovalocyte 1+
[2020-12-11 06:42] LABS: BUN 28 mg/dL (7-18); BUN/Creat Ratio 24.1 RATIO (10-20); Chloride 108 mmol/L (98-107); Creatinine, Serum 1.16 mg/dL (0.55-1.02); EST Glomerular Filtration Rate 48 mL/min (>60); Est Glom Filt Rate - Afr Amer 59 mL/min (>60); Estimated Creatinine Clearance 55.21 ml/min; Glucose 122 mg/dL (74-106); Phosphorus 2.9 mg/dL (2.5-4.9); Potassium 3.9 mmol/L (3.5-5.1); Sodium Level 142 mmol/L (136-145)
[2020-12-11] MEDS: Budesonide Respules 0.5 MG/2 ML AMPUL.NEB. INHALATION ×2 (07:19→19:11)
[2020-12-11] MEDS: Ipratropium/Albuterol Sulfate 3 ML AMPUL.NEB INHALATION ×3 (07:19→19:11)
--- NOTE | 2020-12-11 07:19 | PCM.PN.HOSP ---
Patient Problems: Active and Suspected Problems (Last Reviewed 12/10/20 @ 11:[address] Brown Vargas MD) Fracture of right great toe (Acute) Cellulitis of right leg (Acute) Reason for Visit: Follow-up for diabetic foot ulcer, peripheral arterial disease bilateral, chronic kidney disease, CHF, COPD and multiple other comorbidities Objective: Patient blood pressure 172/59 but prior to that it was good. Afebrile. Creatinine profile better. She had CT angiogram and had normal saline prior and after the contrast. IV fluid is discontinued. Lasix 40 mg IV ordered in the morning. She has mild wheezing in the morning. Patient looks more short of breath. Physical exam General: Alert, Oriented x3, Cooperative HEENT: Atraumatic, PERRLA, EOMI, Normocephalic Oral: No Gingival or Mucosal Lesions/ Ulcerations Neck: Supple, No JVD, Negative Carotid Bruits Lungs: Air entry diminished in bilateral lung bases. Mild bilateral wheezing, mild dyspnea on conversation Cardiovascular: Regular rate, Regular Rhythm, Normal S1, Normal S2, No murmurs. Bilateral diminished pulsation below knee level, mainly in left leg Abdomen: Bowel Sounds Present, Soft, Non Tender, Non-Distended : No renal angle tenderness. No suprapubic tenderness. Extremities: No edema, Capillary Refill Less than 3 Seconds Skin: Small wound over right heel down to the subcutaneous level, with granular and fibrous tissue. Erythema resolved. Tenderness over right great toe. Avulsion of the right great toenail with onycholysis Musculoskeletal: Tenderness of right great toe. Neurological: Cranial nerves II-XII grossly intact, Deep Tendon Reflexes 2+/4 and Symmetrical, Neuro grossly intact Psych/Mental Status: Normal Affect, Appropriate. Vitals/I&O's: Vital Signs Temp Pulse Resp BP Pulse Ox 98.6 F 54 L 18 172/59 H 96 12/11/20 04:10 12/11/20 04:10 12/11/20 04:10 12/11/20 04:10 12/11/20 04:10 Oxygen Flow Rate (L/min) 3 Oxygen Delivery Method Nasal Cannula Weight: 181 lb 3.52 oz Body Mass Index (BMI) 36.6 Finger Stick Blood Glucose 112 Intake and Output for Last 24 Hours 12/09/20 12/10/20 12/11/20 23:59 23:59 23:59 Intake Total 2091.25 / 2091. 1080.25 / 1080.25 50 / 50 Output Total 3250 / 3250 2099 / 2099 Balance -1157.75 / -1157.75 -1019.75 / -1019.75 50 / 50 Microbiology Past 72 Hours 12/06/20 18:40 Wound - Toe Gram Stain - Final 12/06/20 18:40 Wound - Toe Wound Culture - Final Serratia marcescens Klebsiella pneumoniae sp pneum Enterococcus faecalis 12/06/20 18:40 Wound - Toe Anaerobic Culture - Final No anaerobic bacteria isolated. 12/06/20 16:28 Blood Culture (Wb) - Left Wrist Blood Culture - Preliminary No growth in 48 hours. 12/06/20 15:45 Blood Culture (Wb) - Anticubital Right Blood Culture - Preliminary No growth in 48 hours. Laboratory Results 12/10/20 06:58: Sodium 140, Potassium 4.0, Chloride 105, Carbon Dioxide 31.0, Anion Gap 4 L, BUN 39 H, Creatinine 1.51 H, Estim Creat Clear Calc 42.42, Est GFR (MDRD) Af Amer 43 L, Est GFR (MDRD) Non-Af 36 L, BUN/Creatinine Ratio 25.8 H, Glucose 232 H, Calcium 8.5 12/10/20 11:48: POC Glucose 269 H 12/10/20 17:09: POC Glucose 154 H 12/10/20 22:07: POC Glucose 209 H 12/11/20 05:50: WBC 7.9, RBC 3.40 L, Hgb 9.3 L, Hct 32.4 L, MCV 95.3, MCH 27.4, MCHC 28.7 L, RDW Std Deviation 81.0 H, RDW Coeff of Jeff 23.8 H, Plt Count 176, MPV 12.9 H, Immature Gran % (Auto) 0.600, Neut % (Auto) 78.9 H, Lymph % (Auto) 8.7 L, [place] % (Auto) 10.2 H, Eos % (Auto) 1.3, Baso % (Auto) 0.3, Absolute Neuts (auto) 6.3, Absolute Lymphs (auto) 0.69 L, Nucleated RBC % 0, Hypochromasia RARE, Ovalocytes 1+ 12/11/20 05:50: Sodium 142, Potassium 3.9, Chloride 108 H, Carbon Dioxide 31.0, BUN 28 H, Creatinine 1.16 H, Estim Creat Clear Calc 55.21, Est GFR (MDRD) Af Amer 59 L, Est GFR (MDRD) Non-Af 48 L, BUN/Creatinine Ratio 24.1 H, Glucose 122 H, Calcium 8.0 L, Phosphorus 2.9, Albumin 2.0 L Current Medications Acetaminophen (Acetaminophen 325 Mg Tablet) 650 mg PO Q6H PRN PRN PRN Reason: Pain Score 1-10/Temp > 100.7 F Last Admin: 12/11/20 04:15 Dose: 650 mg Documented by: Albuterol Sulfate (Albuterol 2.5 Mg/3 Ml Vial.Neb.) 2.5 mg INHALATION Q4H PRN PRN PRN Reason: SOB &/OR WHEEZING Albuterol/Ipratropium (Ipratropium/Albuterol Sulfate 3 Ml Ampul.Neb) 3 ml INHALATION Q6HWA.RT [facility] Last Admin: 12/11/20 07:19 Dose: 3 ml Documented by: Amiodarone HCl (Amiodarone 200 Mg Tablet) 200 mg PO DAILY [facility] Last Admin: 12/10/20 09:56 Dose: 200 mg Documented by: Amlodipine Besylate (Amlodipine 10 Mg Tablet) 10 mg PO DAILY [facility] Last Admin: 12/10/20 09:55 Dose: 10 mg Documented by: Aspirin (Aspirin E.C. 81 Mg Tablet) 81 mg PO DAILY@0800 [facility] Last Admin: 12/10/20 08:28 Dose: 81 mg Documented by: Atorvastatin Calcium (Atorvastatin Calcium 80 Mg Tablet) 80 mg PO QHS [facility] Last Admin: 12/10/20 22:01 Dose: 80 mg Documented by: Budesonide (Budesonide Respules 0.5 Mg/2 Ml Ampul.Neb.) 0.5 mg INHALATION Q12H.RT [facility] Last Admin: 12/11/20 07:19 Dose: 0.5 mg Documented by: Calcium/Vitamin D (Calcium Carb/Vitamin D 1 Tablet Tablet) [facility] Last Admin: 12/10/20 08:28 Dose: 1 tablet Documented by: Cyanocobalamin (Cyanocobalamin 500 Mcg Tablet) 1,000 mcg PO DAILY [facility] Last Admin: 12/10/20 08:28 Dose: 1,000 mcg Documented by: Dextrose (Dextrose 50%-Water 25 Gm/50 Ml Disp.Syrin) 0 gm IV X1 PRN; Protocol PRN Reason: Hypoglycemia Fluticasone Propionate (Fluticasone 0.05% 1 [place] Nasal.Sry) 2 spray NASAL DAILY [facility] Last Admin: 12/10/20 09:56 Dose: 2 sprays Documented by: Glucagon (Glucagon 1 Mg/Ml Syringe) 1 mg IM .X1 PRN PRN Reason: Hypoglycemia Hydralazine HCl (Hydralazine 20 Mg/Ml Vial) 10 mg IV Q4H PRN PRN PRN Reason: sbp > 180 or DBP > 120 Hydralazine HCl (Hydralazine 50 Mg Tablet) 50 mg PO BID [facility] Last Admin: 12/10/20 22:01 Dose: 50 mg Documented by: Sodium Chloride () 250 mls @ 15 mls/hr IV .[id number] PRN PRN Reason: Saline Flush Last Infusion: 12/11/20 01:59 Dose: 15 mls/hr Documented by: Sodium Chloride () 250 mls @ 15 mls/hr IV .[id number] PRN PRN Reason: Additional IVPB Infusion Last Infusion: 12/10/20 06:21 Dose: Infused Documented by: Piperacillin Sod/Tazobactam (Sod 3.375 gm/ Sodium Chloride) 50 mls @ 12.5 mls/hr IV Q12 [facility] Last Infusion: 12/11/20 01:59 Dose: Infused Documented by: Insulin Glargine (Insulin Glargine 100 Units/Ml Pen) 30 units SC QHS [facility] Last Admin: 12/10/20 22:08 Dose: 30 units Documented by: Insulin Human Lispro (Insulin Lispro 100 Unit/Ml Insuln.Pen) 0 unit SC TIDCM [facility]; Protocol Last Admin: 12/10/20 17:12 Dose: 1 units Documented by: Insulin Human Lispro (Insulin Lispro 100 Unit/Ml Insuln.Pen) 5 unit SC TIDCM [facility] Last Admin: 12/10/20 17:12 Dose: 5 u Documented by: Lactobacillus Acidophilus (Lactobacillus Acidophilus) 1 tablet PO DAILY [facility] Last Admin: 12/10/20 09:55 Dose: 1 tablet Documented by: Levothyroxine Sodium (Levothyroxine 25 Mcg Tablet) 25 mcg PO DAILY@0600 [facility] Last Admin: 12/11/20 04:15 Dose: 25 mcg Documented by: Lisinopril (Lisinopril 10 Mg Tablet) 10 mg PO DAILY [facility] Last Admin: 12/10/20 09:56 Dose: 10 mg Documented by: Metoprolol Tartrate (Metoprolol Tartrate 25 Mg Tablet) 25 mg PO BID [facility] Last Admin: 12/10/20 21:54 Dose: Not Given Documented by: Nitroglycerin (Nitroglycerin (Inpatient Use) 0.4 Mg Tab.Subl) 0.4 mg SUBLINGUAL Q5M PRN PRN Reason: chest pain Nystatin (Nystatin Powder 15gm Bottle) 1 applic TOPICAL BID [facility]; Protocol Last Admin: 12/10/20 22:01 Dose: 1 applicatio Documented by: Ondansetron HCl (Ondansetron 4 Mg/2 Ml Vial) 4 mg IV Q8H PRN PRN PRN Reason: NAUSEA/VOMITING Oxycodone HCl (Oxycodone 5 Mg Tablet) 10 mg PO TID PRN PRN PRN Reason: PAIN 1-07/26 Last Admin: 12/11/20 04:15 Dose: 10 mg Documented by: Pantoprazole Sodium (Pantoprazole Sodium 40 Mg Tablet) 40 mg PO DAILY [facility] Last Admin: 12/10/20 08:27 Dose: 40 mg Documented by: Paroxetine HCl (Paroxetine 20 Mg Tablet) 40 mg PO DAILY [facility] Last Admin: 12/10/20 08:29 Dose: 40 mg Documented by: Polysaccharide Iron Complex (Iron Polysaccharide Complex 150 Mg Capsule) [facility] Last Admin: 12/10/20 08:27 Dose: 150 mg Documented by: Pramipexole Dihydrochloride (Pramipexole Di-Hcl 1 Mg Tablet) 1 mg PO QHS [facility] Last Admin: 12/10/20 22:01 Dose: 1 mg Documented by: Sodium Chloride (0.9% Saline Lock 10 Ml Syringe) 10 - 40 ml IV UD PRN PRN Reason: SALINE FLUSH Last Admin: 12/10/20 11:01 Dose: 20 ml Documented by: STROKE Vital Signs/Narrative: Vital Signs Temp Pulse Resp BP Pulse Ox 12/11/20 04:10 98.6 F 54 L 18 172/59 H 96 Medical Necessity - Tobacco Use Smoking Status: Former smoker Assessment/Plan All Active Problems (Last Reviewed 12/10/20 @ 11:[address] Brown Vargas MD) Fracture of right great toe (Acute) Cellulitis of right leg (Acute) 1. Right lower extremity cellulitis secondary to injury to right great toe/skin tear, need is further infection. Lactic acid was elevated but thought to be secondary to patient's hypoxia. MRI did not show osteomyelitis. MRSA and MSSA screen negative. Lactic acid was elevated, however, I do not feel that that is related with underlying sepsis or severe sepsis but more likely due to the patient's hypoxia that she presented with. Prelim Gram stain shows gram-negative julieta, GNR lactose artist's representative, GPC possible Enterococcus. MRI did not show any osteomyelitis. MRSA and MSSA screen negative. Seen by ID recommended to continue vancomycin and Zosyn. 12/09: Wound culture growing Serratia marcescens, Klebsiella pneumonia and Enterococcus faecalis seen by ID. Vancomycin is stopped. Zosyn dose decreased. 12/10: Discharge plan will be 7 days more of linezolid 600 mg twice daily and Omnicef 300 mg daily. 12/11: Being followed by building code inspector and ID. 2. Right great toe distal phalanx fracture with peripheral arterial disease: Seen by building code inspector. Patient also had great toenail avulsion and onycholysis. Vascular studies has been ordered and is pending. 12/09: Left ASAD 0.48. Right ASAD could not be calculated. Bilateral dorsalis pedis artery monophasic. Reported as severe arterial occlusive disease bilateral lower extremities with monophasic bilateral Doppler waveforms. Consult vascular surgery, Dr. Vargas. 12/10: Patient had CT angiogram of abdomen with runoff lower extremities: Reported as diffuse atherosclerotic changes of abdominal aorta and both lower extremities, diffuse calcific plaque with multiple areas of narrowing In both legs below division of right REVIT DRAFTER. Abdominal aorta has atherosclerotic plaque. Patient was given IV fluid to prevent EMILIA 12/11: Discussed with Dr. Vargas over phone. He will reviewed the images. After that we will decide about angiogram most probably as an outpatient. 3. Chronic atrial fibrillation continue with amiodarone and metoprolol. No anticoagulation at this time in case surgery necessary 4. Diabetes mellitus type 2 with diabetic neuropathy Blood glucose was 191 at time of admission. Currently 120. A1c is ordered. Continue basal and bolus insulin. 5. Acute hypoxic respiratory insufficiency: On 4 L of oxygen. Patient states is due to traveling via her electric wheelchair in the cold took her roughly an hour. Continue with bronchodilators. No evidence of exacerbation to warrant steroids 6. CKD stage III: Creatinine varies from 1.5-1.8. Currently creatinine went up from 1.4-1.84. We will hold the Lasix 12/09: Increase in creatinine from 1.74-1.9. Medication dosage adjusted accordingly. Potassium 4.4. Potassium supplement discontinued. Lasix on hold. 12/10: Discussed with assisted living coordinator. Patient has history of chronic diastolic heart failure, COPD, paroxysmal A. fib status post aortic valve replacement. Today creatinine 1.5. Advised normal saline 75 mill per hour [address] scan and then [address] scan to prevent EMILIA. Monitor kidney function and electrolytes. 12/11: BUN/creatinine 28/1.16. Lasix 40 mg IV 1 dose given. Textile Machinery Sales Representative on board to manage diuretic. VTE prophylaxis with SCDs until anticoagulation resumed. Patient has allergy to heparin and heparin products. Clinical Impression(s) from Imaging Studies Foot X-Ray 12/06/20 13:11 IMPRESSION: Moderately displaced (3.7 mm) fracture of the first distal phalanx likely involving the articular surface. Lower Extremity MRI 12/06/20 19:34 IMPRESSION: Oblique fracture of the base of the first distal phalanx. No MR evidence of osteomyelitis. Electronically Signed: Ramón Tomlinson MD at 11:58 EST Tel , Service support , Abdomen/Pelvis CTA 12/10/20 11:53 IMPRESSION: Diffuse atherosclerotic changes of the abdominal aorta and both lower extremities although there is evidence of a three-vessel runoff in both lower extremities. Inpatient E&M: 63989 Subs Hosp L2
--- NOTE | 2020-12-11 07:56 | PCM.PROGNOTE ---
Patient Problems: Active and Suspected Problems (Last Reviewed 12/10/20 @ 11:[address] Brown Vargas MD) Fracture of right great toe (Acute) Cellulitis of right leg (Acute) Subjective: Patient was seen this morning for follow up on right 1st toe fracture, nail avulsion with wound and cellulitis. Her case is additionally complicated with peripheral vascular disease and diabetes. She has continued rest pain to her legs and feet. She denies current f/c/n/v/loss of appetite. - Physical Exam Vitals/I&O's: Vital Signs Temp Pulse Resp BP Pulse Ox 98.6 F 55 L 18 172/59 H 91 12/11/20 04:10 12/11/20 07:13 12/11/20 07:13 12/11/20 04:10 12/11/20 07:13 Oxygen Flow Rate (L/min) 3 Oxygen Delivery Method Nasal Cannula Weight: 82.2 kg Body Mass Index (BMI) 36.6 Finger Stick Blood Glucose 112 Intake and Output for Last 24 Hours 12/09/20 12/10/20 12/11/20 23:59 23:59 23:59 Intake Total 2092.25 / 2092.25 1080.25 / 1080.25 150 / 150 Output Total 3250 / 3250 2100 / 2100 350 / 350 Balance -1157.75 / -1157.75 -1019.75 / -1019.75 -200 / -200 General: Alert, Oriented x3, Cooperative HEENT: Atraumatic Extremities: Capillary Refill Less than 3 Seconds - Diminished to right hallux and less than 3 seconds to lesser toes, No Calf Tenderness, Diminished Peripheral Pulses, Edema - Decreased Skin: Ulcer/ Wound - Hallux nail bed has some granular and continued minimal hematogenous drainage. There is deep ecchymotic changes in this toe appears dysvascular. There is no purulence infectious erythema or streaking noted. There is no deep tissue exposure noted. His heel fissure also does not look infected, - - Her skin is hairless, dry, atrophic Musculoskeletal: Muscle Wasting, Tenderness, - - Dorsal contraction of all digits right foot Neurological: Sensory exam intact to light touch and pain Psych/Mental Status: Normal Affect, Appropriate Microbiology Past 72 Hours 12/06/20 18:40 Wound - Toe Gram Stain - Final 12/06/20 18:40 Wound - Toe Wound Culture - Final Serratia marcescens Klebsiella pneumoniae sp pneum Enterococcus faecalis 12/06/20 18:40 Wound - Toe Anaerobic Culture - Final No anaerobic bacteria isolated. 12/06/20 16:28 Blood Culture (Wb) - Left Wrist Blood Culture - Preliminary No growth in 48 hours. 12/06/20 15:45 Blood Culture (Wb) - Anticubital Right Blood Culture - Preliminary No growth in 48 hours. Laboratory Results 12/10/20 11:48: POC Glucose 269 H 12/10/20 17:09: POC Glucose 154 H 12/10/20 22:07: POC Glucose 209 H 12/11/20 05:50: WBC 7.9, RBC 3.40 L, Hgb 9.3 L, Hct 32.4 L, MCV 95.3, MCH 27.4, MCHC 28.7 L, RDW Std Deviation 81.0 H, RDW Coeff of Jeff 23.8 H, Plt Count 176, MPV 12.9 H, Immature Gran % (Auto) 0.600, Neut % (Auto) 78.9 H, Lymph % (Auto) 8.7 L, [place] % (Auto) 10.2 H, Eos % (Auto) 1.3, Baso % (Auto) 0.3, Absolute Neuts (auto) 6.3, Absolute Lymphs (auto) 0.69 L, Nucleated RBC % 0, Hypochromasia RARE, Ovalocytes 1+ 12/11/20 05:50: Sodium 142, Potassium 3.9, Chloride 108 H, Carbon Dioxide 31.0, BUN 28 H, Creatinine 1.16 H, Estim Creat Clear Calc 55.21, Est GFR (MDRD) Af Amer 59 L, Est GFR (MDRD) Non-Af 48 L, BUN/Creatinine Ratio 24.1 H, Glucose 122 H, Calcium 8.0 L, Phosphorus 2.9, Albumin 2.0 L Current Medications Acetaminophen (Acetaminophen 325 Mg Tablet) 650 mg PO Q6H PRN PRN PRN Reason: Pain Score 1-10/Temp > 100.7 F Last Admin: 12/11/20 04:15 Dose: 650 mg Documented by: Albuterol Sulfate (Albuterol 2.5 Mg/3 Ml Vial.Neb.) 2.5 mg INHALATION Q4H PRN PRN PRN Reason: SOB &/OR WHEEZING Albuterol/Ipratropium (Ipratropium/Albuterol Sulfate 3 Ml Ampul.Neb) 3 ml INHALATION Q6HWA.RT [facility] Last Admin: 12/11/20 07:19 Dose: 3 ml Documented by: Amiodarone HCl (Amiodarone 200 Mg Tablet) 200 mg PO DAILY [facility] Last Admin: 12/10/20 09:56 Dose: 200 mg Documented by: Amlodipine Besylate (Amlodipine 10 Mg Tablet) 10 mg PO DAILY [facility] Last Admin: 12/10/20 09:55 Dose: 10 mg Documented by: Aspirin (Aspirin E.C. 81 Mg Tablet) 81 mg PO DAILY@0800 [facility] Last Admin: 12/10/20 08:28 Dose: 81 mg Documented by: Atorvastatin Calcium (Atorvastatin Calcium 80 Mg Tablet) 80 mg PO QHS [facility] Last Admin: 12/10/20 22:01 Dose: 80 mg Documented by: Budesonide (Budesonide Respules 0.5 Mg/2 Ml Ampul.Neb.) 0.5 mg INHALATION Q12H.RT [facility] Last Admin: 12/11/20 07:19 Dose: 0.5 mg Documented by: Calcium/Vitamin D (Calcium Carb/Vitamin D 1 Tablet Tablet) 1 tablet PO DAILYCM [facility] Last Admin: 12/10/20 08:28 Dose: 1 tablet Documented by: Cyanocobalamin (Cyanocobalamin 500 Mcg Tablet) 1,000 mcg PO DAILY [facility] Last Admin: 12/10/20 08:28 Dose: 1,000 mcg Documented by: Dextrose (Dextrose 50%-Water 25 Gm/50 Ml Disp.Syrin) 0 gm IV X1 PRN; Protocol PRN Reason: Hypoglycemia Fluticasone Propionate (Fluticasone 0.05% 1 [place] Nasal.Sry) 2 spray NASAL DAILY [facility] Last Admin: 12/10/20 09:56 Dose: 2 sprays Documented by: Glucagon (Glucagon 1 Mg/Ml Syringe) 1 mg IM .X1 PRN PRN Reason: Hypoglycemia Hydralazine HCl (Hydralazine 20 Mg/Ml Vial) 10 mg IV Q4H PRN PRN PRN Reason: sbp > 180 or DBP > 120 Hydralazine HCl (Hydralazine 50 Mg Tablet) 50 mg PO BID [facility] Last Admin: 12/10/20 22:01 Dose: 50 mg Documented by: Sodium Chloride () 250 mls @ 15 mls/hr IV .[id number] PRN PRN Reason: Saline Flush Last Infusion: 12/11/20 01:59 Dose: 15 mls/hr Documented by: Sodium Chloride () 250 mls @ 15 mls/hr IV .[id number] PRN PRN Reason: Additional IVPB Infusion Last Infusion: 12/10/20 06:21 Dose: Infused Documented by: Piperacillin Sod/Tazobactam (Sod 3.375 gm/ Sodium Chloride) 50 mls @ 12.5 mls/hr IV Q12 [facility] Last Infusion: 12/11/20 01:59 Dose: Infused Documented by: Insulin Glargine (Insulin Glargine 100 Units/Ml Pen) 30 units SC QHS [facility] Last Admin: 12/10/20 22:08 Dose: 30 units Documented by: Insulin Human Lispro (Insulin Lispro 100 Unit/Ml Insuln.Pen) 0 unit SC TIDCM [facility]; Protocol Last Admin: 12/10/20 17:12 Dose: 1 units Documented by: Insulin Human Lispro (Insulin Lispro 100 Unit/Ml Insuln.Pen) 5 unit SC TIDCM [facility] Last Admin: 12/10/20 17:12 Dose: 5 u Documented by: Lactobacillus Acidophilus (Lactobacillus Acidophilus) 1 tablet PO DAILY [facility] Last Admin: 12/10/20 09:55 Dose: 1 tablet Documented by: Levothyroxine Sodium (Levothyroxine 25 Mcg Tablet) 25 mcg PO DAILY@0600 [facility] Last Admin: 12/11/20 04:15 Dose: 25 mcg Documented by: Lisinopril (Lisinopril 10 Mg Tablet) 10 mg PO DAILY [facility] Last Admin: 12/10/20 09:56 Dose: 10 mg Documented by: Metoprolol Tartrate (Metoprolol Tartrate 25 Mg Tablet) 25 mg PO BID [facility] Last Admin: 12/10/20 21:54 Dose: Not Given Documented by: Nitroglycerin (Nitroglycerin (Inpatient Use) 0.4 Mg Tab.Subl) 0.4 mg SUBLINGUAL Q5M PRN PRN Reason: chest pain Nystatin (Nystatin Powder 15gm Bottle) 1 applic TOPICAL BID [facility]; Protocol Last Admin: 12/10/20 22:01 Dose: 1 applicatio Documented by: Ondansetron HCl (Ondansetron 4 Mg/2 Ml Vial) 4 mg IV Q8H PRN PRN PRN Reason: NAUSEA/VOMITING Oxycodone HCl (Oxycodone 5 Mg Tablet) 10 mg PO TID PRN PRN PRN Reason: PAIN 1-10 Last Admin: 12/11/20 04:15 Dose: 10 mg Documented by: Pantoprazole Sodium (Pantoprazole Sodium 40 Mg Tablet) 40 mg PO DAILY [facility] Last Admin: 12/10/20 08:27 Dose: 40 mg Documented by: Paroxetine HCl (Paroxetine 20 Mg Tablet) 40 mg PO DAILY [facility] Last Admin: 12/10/20 08:29 Dose: 40 mg Documented by: Polysaccharide Iron Complex (Iron Polysaccharide Complex 150 Mg Capsule) 150 mg PO DAILYCM [facility] Last Admin: 12/10/20 08:27 Dose: 150 mg Documented by: Pramipexole Dihydrochloride (Pramipexole Di-Hcl 1 Mg Tablet) 1 mg PO QHS [facility] Last Admin: 12/10/20 22:01 Dose: 1 mg Documented by: Sodium Chloride (0.9% Saline Lock 10 Ml Syringe) 10 - 40 ml IV UD PRN PRN Reason: SALINE FLUSH Last Admin: 12/10/20 11:01 Dose: 20 ml Documented by: Medical Necessity - Tobacco Use Smoking Status: Former smoker Assessment/Plan All Active Problems (Last Reviewed 12/10/20 @ 11:[address] Brown Vargas MD) Fracture of right great toe (Acute) Cellulitis of right leg (Acute) Right 1st toe distal phalanx fracture - open, w/ laceration down to bone and onycholysis of the 1st toenail (now s/p nail avulsion) Cellulitis right foot improving; osteo not suspected Fissure wound left heel - no infection Fissure wound right heel - no infection Diabetes with peripheral neuropathy (A1C 6.7%) Peripheral vascular disease Multiple comorbidities Reviewed diagnostic data. She is afebrile. WBC 7.9 No local infection seen to right lower extremity. Culture has been obtained right 1st toe - serratia, klebsiella, enterococcus. MRI neg for osteomyelitis. Blood cultures negative so far. Patient on IV zosyn for hospital duration. ID on consult and appreciated. Plan for 7 additional days of omnicef 300 daily and linezolid 600 BID at discharge. Vascular surgery on consult with intervention planned. CT abdomen pelvis was completed for intervention planning per Dr. Vargas. Consult and intervention is appreciated. Changed right foot dressing this AM with adaptic, hydrogel, and gauze. To change daily. No weightbearing right foot and WBAT left foot with surgical shoe. Podiatry will continue to follow closely. Medical management noted. Kidney function trending better. Ok to d/c from a podiatry standpoint. [facility] week after discharge. Please call if questions. Kenna Sethi DPM, FACFAS [facility] [phone]
[2020-12-11] MEDS: Cyanocobalamin 500 MCG Tablet 1000 MCG PO (08:07)
[2020-12-11] MEDS: Paroxetine 20 MG Tablet 40 MG PO (08:08)
[2020-12-11] MEDS: Pantoprazole Sodium 40 MG Tablet PO (08:08)
[2020-12-11] MEDS: Amiodarone 200 MG Tablet PO (08:08)
[2020-12-11] MEDS: Metoprolol Tartrate 25 MG Tablet PO ×2 (08:08→21:36)
[2020-12-11] MEDS: amLODIPine 10 MG Tablet PO (08:08)
[2020-12-11] MEDS: Calcium Carb/Vitamin D 1 TABLET Tablet PO (08:09)
[2020-12-11] MEDS: hydrALAZINE 50 MG Tablet PO ×2 (08:09→21:36)
[2020-12-11] MEDS: Iron Polysaccharide Complex 150 MG CAPSULE PO (08:09)
[2020-12-11] MEDS: Insulin Lispro 100 UNIT/ML INSULN.PEN SC ×4 (08:10→17:23)
[2020-12-11] MEDS: Aspirin E.C. 81 MG Tablet PO (08:10)
[2020-12-11 08:20] LABS: Bedside Glucose 96 mg/dL (70-110)
[2020-12-11] MEDS: Lisinopril 10 MG Tablet PO (09:20)
[2020-12-11] MEDS: Furosemide 40 MG/4 ML Vial IV (09:20)
[2020-12-11] MEDS: Nystatin Powder 15gm Bottle 1 APPLIC TOPICAL ×2 (09:21→21:37)
[2020-12-11] MEDS: Fluticasone 0.05% 1 SPRAY NASAL.SRY 2 SPRAY NASAL (09:22)
--- NOTE | 2020-12-11 11:30 | CASEMGMT ---
Social Work Note SW in to speak with pt to get SNF choices. Pt sleeping when this worker entered the room but did wake up. SW asked pt for SNF choices. Pt states she hasn't looked at the SNF list yet. SW informed pt that she needs to look at the SNF list so SNF process can be started. Pt states she will review list. SW informed pt that SW will be back later today to get SNF choices. SW did update pt that [facility] has no beds at this time so pt will not be able to go there. Pt states understanding. Plan: SNF pending acceptance and pre-cert [place] [employer]
[2020-12-11 11:31] LABS: Bedside Glucose 112 mg/dL (70-110)
--- NOTE | 2020-12-11 12:55 | PCM.PN.REN ---
Patient Problems: Active and Suspected Problems (Last Reviewed 12/10/20 @ 11:[address] Brown Vargas MD) Fracture of right great toe (Acute) Cellulitis of right leg (Acute) Subjective: Patient had SOB earlier this am. IVF stopped and IV lasix give On NC 3 l/min Breathing is better now. No nausea No vomiting No CP - Physical Exam Vitals/I&O's: Vital Signs Temp Pulse Resp BP Pulse Ox 98.2 F 80 18 154/69 H 94 12/11/20 08:55 12/11/20 08:55 12/11/20 08:55 12/11/20 08:55 12/11/20 08:55 Oxygen Flow Rate (L/min) 3 Oxygen Delivery Method Nasal Cannula Weight: 82.2 kg Body Mass Index (BMI) 36.6 Finger Stick Blood Glucose 112 Intake and Output for Last 24 Hours 12/09/20 12/10/20 12/11/20 23:59 23:59 23:59 Intake Total 2092.25 / 2092.25 1080.25 / 1080.25 150 / 150 Output Total 3250 / 3250 2100 / 2100 350 / 350 Balance -1157.75 / -1157.75 -1019.75 / -1019.75 -200 / -200 General: Alert, Oriented x3 HEENT: Atraumatic Oral: Moist Mucosa Neck: Supple, No JVD Lungs: - - decreased BS over both lungs bases Cardiovascular: Regular rate, Regular Rhythm, Normal S1, Normal S2 Abdomen: Bowel Sounds Present, Soft, Non Tender Extremities: No clubbing, No cyanosis Skin: No rashes Lymphatic: No Cervical, Supraclavicular, or Inguinal Adenopathy Neurological: Cranial nerves II-XII grossly intact, Neuro grossly intact Psych/Mental Status: Appropriate Microbiology Past 72 Hours 12/06/20 18:40 Wound - Toe Gram Stain - Final 12/06/20 18:40 Wound - Toe Wound Culture - Final Serratia marcescens Klebsiella pneumoniae sp pneum Enterococcus faecalis 12/06/20 18:40 Wound - Toe Anaerobic Culture - Final No anaerobic bacteria isolated. 12/06/20 16:28 Blood Culture (Wb) - Left Wrist Blood Culture - Preliminary No growth in 48 hours. 12/06/20 15:45 Blood Culture (Wb) - Anticubital Right Blood Culture - Preliminary No growth in 48 hours. Laboratory Results 12/10/20 17:09: POC Glucose 154 H 12/10/20 22:07: POC Glucose 209 H 12/11/20 05:50: WBC 7.9, RBC 3.40 L, Hgb 9.3 L, Hct 32.4 L, MCV 95.3, MCH 27.4, MCHC 28.7 L, RDW Std Deviation 81.0 H, RDW Coeff of Jeff 23.8 H, Plt Count 176, MPV 12.9 H, Immature Gran % (Auto) 0.600, Neut % (Auto) 78.9 H, Lymph % (Auto) 8.7 L, [place] % (Auto) 10.2 H, Eos % (Auto) 1.3, Baso % (Auto) 0.3, Absolute Neuts (auto) 6.3, Absolute Lymphs (auto) 0.69 L, Nucleated RBC % 0, Hypochromasia RARE, Ovalocytes 1+ 12/11/20 05:50: Sodium 142, Potassium 3.9, Chloride 108 H, Carbon Dioxide 31.0, BUN 28 H, Creatinine 1.16 H, Estim Creat Clear Calc 55.21, Est GFR (MDRD) Af Amer 59 L, Est GFR (MDRD) Non-Af 48 L, BUN/Creatinine Ratio 24.1 H, Glucose 122 H, Calcium 8.0 L, Phosphorus 2.9, Albumin 2.0 L 12/11/20 07:53: POC Glucose 96 12/11/20 11:11: POC Glucose 112 H Current Medications Acetaminophen (Acetaminophen 325 Mg Tablet) 650 mg PO Q6H PRN PRN PRN Reason: Pain Score 1-10/Temp > 100.7 F Last Admin: 12/11/20 04:15 Dose: 650 mg Documented by: Albuterol Sulfate (Albuterol 2.5 Mg/3 Ml Vial.Neb.) 2.5 mg INHALATION Q4H PRN PRN PRN Reason: SOB &/OR WHEEZING Albuterol/Ipratropium (Ipratropium/Albuterol Sulfate 3 Ml Ampul.Neb) 3 ml INHALATION Q6HWA.RT [facility] Last Admin: 12/11/20 07:19 Dose: 3 ml Documented by: Amiodarone HCl (Amiodarone 200 Mg Tablet) 200 mg PO DAILY [facility] Last Admin: 12/11/20 08:08 Dose: 200 mg Documented by: Amlodipine Besylate (Amlodipine 10 Mg Tablet) 10 mg PO DAILY [facility] Last Admin: 12/11/20 08:08 Dose: 10 mg Documented by: Aspirin (Aspirin E.C. 81 Mg Tablet) 81 mg PO DAILY@0800 [facility] Last Admin: 12/11/20 08:10 Dose: 81 mg Documented by: Atorvastatin Calcium (Atorvastatin Calcium 80 Mg Tablet) 80 mg PO QHS [facility] Last Admin: 12/10/20 22:01 Dose: 80 mg Documented by: Budesonide (Budesonide Respules 0.5 Mg/2 Ml Ampul.Neb.) 0.5 mg INHALATION Q12H.RT [facility] Last Admin: 12/11/20 07:19 Dose: 0.5 mg Documented by: Calcium/Vitamin D (Calcium Carb/Vitamin D 1 Tablet Tablet) [facility] Last Admin: 12/11/20 08:09 Dose: 1 tablet Documented by: Cyanocobalamin (Cyanocobalamin 500 Mcg Tablet) 1,000 mcg PO DAILY [facility] Last Admin: 12/11/20 08:07 Dose: 1,000 mcg Documented by: Dextrose (Dextrose 50%-Water 25 Gm/50 Ml Disp.Syrin) 0 gm IV X1 PRN; Protocol PRN Reason: Hypoglycemia Fluticasone Propionate (Fluticasone 0.05% 1 [place] Nasal.Sry) 2 spray NASAL DAILY [facility] Last Admin: 12/11/20 09:22 Dose: 2 sprays Documented by: Glucagon (Glucagon 1 Mg/Ml Syringe) 1 mg IM .X1 PRN PRN Reason: Hypoglycemia Hydralazine HCl (Hydralazine 20 Mg/Ml Vial) 10 mg IV Q4H PRN PRN PRN Reason: sbp > 180 or DBP > 120 Hydralazine HCl (Hydralazine 50 Mg Tablet) 50 mg PO BID [facility] Last Admin: 12/11/20 08:09 Dose: 50 mg Documented by: Sodium Chloride () 250 mls @ 15 mls/hr IV .[id number] PRN PRN Reason: Saline Flush Last Infusion: 12/11/20 01:59 Dose: 15 mls/hr Documented by: Sodium Chloride () 250 mls @ 15 mls/hr IV .[id number] PRN PRN Reason: Additional IVPB Infusion Last Infusion: 12/10/20 06:21 Dose: Infused Documented by: Piperacillin Sod/Tazobactam (Sod 3.375 gm/ Sodium Chloride) 50 mls @ 12.5 mls/hr IV Q12 [facility] Last Admin: 12/11/20 09:19 Dose: 12.5 mls/hr Documented by: Insulin Glargine (Insulin Glargine 100 Units/Ml Pen) 30 units SC QHS [facility] Last Admin: 12/10/20 22:08 Dose: 30 units Documented by: Insulin Human Lispro (Insulin Lispro 100 Unit/Ml Insuln.Pen) 0 unit SC TIDCM [facility]; Protocol Last Admin: 12/11/20 12:24 Dose: Not Given Documented by: Insulin Human Lispro (Insulin Lispro 100 Unit/Ml Insuln.Pen) 5 unit SC TIDCM [facility] Last Admin: 12/11/20 12:23 Dose: 5 u Documented by: Lactobacillus Acidophilus (Lactobacillus Acidophilus) 1 tablet PO DAILY [facility] Last Admin: 12/11/20 08:08 Dose: 1 tablet Documented by: Levothyroxine Sodium (Levothyroxine 25 Mcg Tablet) 25 mcg PO DAILY@0600 [facility] Last Admin: 12/11/20 04:15 Dose: 25 mcg Documented by: Lisinopril (Lisinopril 10 Mg Tablet) 10 mg PO DAILY [facility] Last Admin: 12/11/20 09:20 Dose: 10 mg Documented by: Metoprolol Tartrate (Metoprolol Tartrate 25 Mg Tablet) 25 mg PO BID [facility] Last Admin: 12/11/20 08:08 Dose: 25 mg Documented by: Nitroglycerin (Nitroglycerin (Inpatient Use) 0.4 Mg Tab.Subl) 0.4 mg SUBLINGUAL Q5M PRN PRN Reason: chest pain Nystatin (Nystatin Powder 15gm Bottle) 1 applic TOPICAL BID [facility]; Protocol Last Admin: 12/11/20 09:21 Dose: 1 applicatio Documented by: Ondansetron HCl (Ondansetron 4 Mg/2 Ml Vial) 4 mg IV Q8H PRN PRN PRN Reason: NAUSEA/VOMITING Oxycodone HCl (Oxycodone 5 Mg Tablet) 10 mg PO TID PRN PRN PRN Reason: PAIN 1-10/10 Last Admin: 12/11/20 09:19 Dose: 10 mg Documented by: Pantoprazole Sodium (Pantoprazole Sodium 40 Mg Tablet) 40 mg PO DAILY [facility] Last Admin: 12/11/20 08:08 Dose: 40 mg Documented by: Paroxetine HCl (Paroxetine 20 Mg Tablet) 40 mg PO DAILY [facility] Last Admin: 12/11/20 08:08 Dose: 40 mg Documented by: Polysaccharide Iron Complex (Iron Polysaccharide Complex 150 Mg Capsule) 150 mg PO DAILYCM [facility] Last Admin: 12/11/20 08:09 Dose: 150 mg Documented by: Pramipexole Dihydrochloride (Pramipexole Di-Hcl 1 Mg Tablet) 1 mg PO QHS [facility] Last Admin: 12/10/20 22:01 Dose: 1 mg Documented by: Sodium Chloride (0.9% Saline Lock 10 Ml Syringe) 10 - 40 ml IV UD PRN PRN Reason: SALINE FLUSH Last Admin: 12/10/20 11:01 Dose: 20 ml Documented by: Medical Necessity - Tobacco Use Smoking Status: Former smoker Assessment/Plan All Active Problems (Last Reviewed 12/10/20 @ 11:[address] Brown Vargas MD) Fracture of right great toe (Acute) Cellulitis of right leg (Acute) 1- CKD stage 3 from DNP Cr is at baseline 1.5 mg/dl. Cr is lower than baseline with stopping lasix and giving IVF No contrast induced nephropathy as per today lab Will resume lasix 40 mg PO BID Ok to continue ACEI check RFP in am 2- HTN: BP is acceptable should improve with adding lasix 3- diastolic heart failure: will resume lasix 40 mg PO BID On NC 3-4 l/min at home. 4- Right LE cellulitis. Abx as per the primary service s/p CTA of LEs . VS is following too Renal team will continue to follow.Please call if any question at [phone] d/w Dr. Elroy Jimenez MD
--- NOTE | 2020-12-11 13:42 | CASEMGMT ---
Social Work SW met with pt to discuss discharge plan. SW assisted pt with reviewing list of SNF providers that was given yesterday. Pt reviewed list along with star ratings and quality use data. The patient's preferred provider is [facility]. Referral made to [facility] in TCU and they are able to accept pt and precert is to be started. Pt will need negative covid test prior to admission. Pt notified that TCU can accept her. Plan: TCU, pending insurance precert. MARLENY Lira
[2020-12-11 17:11] LABS: Bedside Glucose 173 mg/dL (70-110)
--- NOTE | 2020-12-11 17:21 | NURSING ---
Student documentation reviewed.
[2020-12-11] MEDS: Furosemide 40 MG Tablet PO (17:23)
[2020-12-11] MEDS: Atorvastatin Calcium 80 MG Tablet PO (21:36)
[2020-12-11] MEDS: Pramipexole Di-HCl 1 MG Tablet PO (21:37)
[2020-12-11 21:56] LABS: Bedside Glucose 283 mg/dL (70-110)
[2020-12-12] VITALS (7 sets, daily range): BP systolic 130–160; BP diastolic 51–60; PULSE 54–62; RESP 14–18; TEMP 36.7–37.2; O2SAT 94–97
[2020-12-12] MEDS: oxyCODONE 5 MG Tablet 10 MG PO ×2 (00:07→10:07)
[2020-12-12 05:41] LABS: Albumin, Serum 2.1 g/dL (3.2-5.0); BUN 28 mg/dL (7-18); Chloride 104 mmol/L (98-107); Creatinine, Serum 1.27 mg/dL (0.55-1.02); EST Glomerular Filtration Rate 44 mL/min (>60); Est Glom Filt Rate - Afr Amer 53 mL/min (>60); Estimated Creatinine Clearance 50.43 ml/min; Glucose 238 mg/dL (74-106); Sodium Level 139 mmol/L (136-145)
[2020-12-12] MEDS: Levothyroxine 25 MCG TABLET PO (05:47)
[2020-12-12] MEDS: Budesonide Respules 0.5 MG/2 ML AMPUL.NEB. INHALATION (07:03)
[2020-12-12] MEDS: Ipratropium/Albuterol Sulfate 3 ML AMPUL.NEB INHALATION ×2 (07:03→13:48)
--- NOTE | 2020-12-12 07:44 | RAD_ITS ---
STUDY: X-RAY CHEST REASON FOR EXAM: Female, 75 years old. Sob -- hypoxia TECHNIQUE: AP and lateral views of the chest. COMPARISON: Comparison is made with prior study dated 04/11/2020. FINDINGS: Mild degree of vascular congestion and CHF. Blunting of both costophrenic angles with mild bibasilar atelectasis. There is moderate cardiac enlargement. Normal mediastinum and duarte. Normal visualized pulmonary arteries. There is atherosclerotic calcification of the aortic arch with tortuosity. There are diffuse degenerative changes of the visualized thoracic spine. Normal visualized ribs, clavicles, and shoulders. There is no demonstrated abnormality of the visualized soft tissue structures of the upper abdomen. RAD/Chest PA and Lateral IMPRESSION: Cardiomegaly and mild degree of CHF. Electronically Signed: Nimesh Rogers MD at 12:03 EST , Service support ,
--- NOTE | 2020-12-12 07:44 | PCM.PN.HOSP ---
Patient Problems: Active and Suspected Problems (Last Reviewed 12/10/20 @ 11:[address] Brown Vargas MD) Fracture of right great toe (Acute) Cellulitis of right leg (Acute) Objective: Heart rate and blood pressure in normal range. Pulse ox 96% on 4 L of oxygen. Patient -3 L of fluid balance. Vitals/I&O's: Vital Signs Temp Pulse Resp BP Pulse Ox 98.8 F 56 L 16 146/60 H 96 12/12/20 02:57 12/12/20 07:01 12/12/20 07:01 12/12/20 02:57 12/12/20 07:01 Oxygen Flow Rate (L/min) 4 Oxygen Delivery Method Nasal Cannula Weight: 181 lb 3.52 oz Body Mass Index (BMI) 36.6 Finger Stick Blood Glucose 112 Intake and Output for Last 24 Hours 12/10/20 12/11/20 12/12/20 23:59 23:59 23:59 Intake Total 1080.25 / 1080.25 1906 / 1906 450 / 450 Output Total 2100 / 2100 1500 / 1500 1250 / 1250 Balance -1019.75 / -1019.75 406 / 406 -800 / -800 Microbiology Past 72 Hours 12/06/20 16:28 Blood Culture (Wb) - Left Wrist Blood Culture - Final No growth in 5 days. 12/06/20 15:45 Blood Culture (Wb) - Anticubital Right Blood Culture - Final No growth in 5 days. 12/11/20 14:50 Mucosa - Nose SARS-CoV-2 Antigen (Rapid) - Final 12/06/20 18:40 Wound - Toe Gram Stain - Final 12/06/20 18:40 Wound - Toe Wound Culture - Final Serratia marcescens Klebsiella pneumoniae sp pneum Enterococcus faecalis 12/06/20 18:40 Wound - Toe Anaerobic Culture - Final No anaerobic bacteria isolated. Laboratory Results 12/11/20 07:53: POC Glucose 96 12/11/20 11:11: POC Glucose 112 H 12/11/20 16:59: POC Glucose 173 H 12/11/20 21:43: POC Glucose 283 H 12/12/20 04:45: Sodium 139, Potassium 4.0, Chloride 104, Carbon Dioxide 32.0, BUN 28 H, Creatinine 1.27 H, Estim Creat Clear Calc 50.43, Est GFR (MDRD) Af Amer 53 L, Est GFR (MDRD) Non-Af 44 L, BUN/Creatinine Ratio 22.0 H, Glucose 238 H, Calcium 8.0 L, Phosphorus 3.0, Albumin 2.1 L Current Medications Acetaminophen (Acetaminophen 325 Mg Tablet) 650 mg PO Q6H PRN PRN PRN Reason: Pain Score 1-10/Temp > 100.7 F Last Admin: 12/11/20 23:02 Dose: 650 mg Documented by: Albuterol Sulfate (Albuterol 2.5 Mg/3 Ml Vial.Neb.) 2.5 mg INHALATION Q4H PRN PRN PRN Reason: SOB &/OR WHEEZING Albuterol/Ipratropium (Ipratropium/Albuterol Sulfate 3 Ml Ampul.Neb) 3 ml INHALATION Q6HWA.RT [facility] Last Admin: 12/12/20 07:03 Dose: 3 ml Documented by: Amiodarone HCl (Amiodarone 200 Mg Tablet) 200 mg PO DAILY [facility] Last Admin: 12/11/20 08:08 Dose: 200 mg Documented by: Amlodipine Besylate (Amlodipine 10 Mg Tablet) 10 mg PO DAILY [facility] Last Admin: 12/11/20 08:08 Dose: 10 mg Documented by: Aspirin (Aspirin E.C. 81 Mg Tablet) 81 mg PO DAILY@0800 [facility] Last Admin: 12/11/20 08:10 Dose: 81 mg Documented by: Atorvastatin Calcium (Atorvastatin Calcium 80 Mg Tablet) 80 mg PO QHS [facility] Last Admin: 12/11/20 21:36 Dose: 80 mg Documented by: Budesonide (Budesonide Respules 0.5 Mg/2 Ml Ampul.Neb.) 0.5 mg INHALATION Q12H.RT [facility] Last Admin: 12/12/20 07:03 Dose: 0.5 mg Documented by: Calcium/Vitamin D (Calcium Carb/Vitamin D 1 Tablet Tablet) 1 tablet PO DAILYCM [facility] Last Admin: 12/11/20 08:09 Dose: 1 tablet Documented by: Cyanocobalamin (Cyanocobalamin 500 Mcg Tablet) 1,000 mcg PO DAILY [facility] Last Admin: 12/11/20 08:07 Dose: 1,000 mcg Documented by: Dextrose (Dextrose 50%-Water 25 Gm/50 Ml Disp.Syrin) 0 gm IV X1 PRN; Protocol PRN Reason: Hypoglycemia Fluticasone Propionate (Fluticasone 0.05% 1 [place] Nasal.Sry) 2 spray NASAL DAILY [facility] Last Admin: 12/11/20 09:22 Dose: 2 sprays Documented by: Furosemide (Furosemide 40 Mg Tablet) 40 mg PO BID@1000,1800 [facility] Last Admin: 12/11/20 17:23 Dose: 40 mg Documented by: Glucagon (Glucagon 1 Mg/Ml Syringe) 1 mg IM .X1 PRN PRN Reason: Hypoglycemia Hydralazine HCl (Hydralazine 20 Mg/Ml Vial) 10 mg IV Q4H PRN PRN PRN Reason: sbp > 180 or DBP > 120 Hydralazine HCl (Hydralazine 50 Mg Tablet) 50 mg PO BID [facility] Last Admin: 12/11/20 21:36 Dose: 50 mg Documented by: Sodium Chloride () 250 mls @ 15 mls/hr IV .[id number] PRN PRN Reason: Saline Flush Last Admin: 12/11/20 20:50 Dose: 15 mls/hr Documented by: Sodium Chloride () 250 mls @ 15 mls/hr IV .[id number] PRN PRN Reason: Additional IVPB Infusion Last Infusion: 12/10/20 06:21 Dose: Infused Documented by: Piperacillin Sod/Tazobactam (Sod 3.375 gm/ Sodium Chloride) 50 mls @ 12.5 mls/hr IV Q12 [facility] Last Infusion: 12/12/20 01:45 Dose: Infused Documented by: Insulin Glargine (Insulin Glargine 100 Units/Ml Pen) 10 units SC BREAKFAST [facility] Insulin Human Lispro (Insulin Lispro 100 Unit/Ml Insuln.Pen) 0 unit SC TIDCM [facility]; Protocol Last Admin: 12/11/20 17:23 Dose: 1 units Documented by: Insulin Human Lispro (Insulin Lispro 100 Unit/Ml Insuln.Pen) 5 unit SC TIDCM [facility] Last Admin: 12/11/20 17:21 Dose: 5 u Documented by: Lactobacillus Acidophilus (Lactobacillus Acidophilus) 1 tablet PO DAILY [facility] Last Admin: 12/11/20 08:08 Dose: 1 tablet Documented by: Levothyroxine Sodium (Levothyroxine 25 Mcg Tablet) 25 mcg PO DAILY@0600 [facility] Last Admin: 12/12/20 05:47 Dose: 25 mcg Documented by: Lisinopril (Lisinopril 10 Mg Tablet) 10 mg PO DAILY [facility] Last Admin: 12/11/20 09:20 Dose: 10 mg Documented by: Metoprolol Tartrate (Metoprolol Tartrate 25 Mg Tablet) 25 mg PO BID [facility] Last Admin: 12/11/20 21:36 Dose: 25 mg Documented by: Nitroglycerin (Nitroglycerin (Inpatient Use) 0.4 Mg Tab.Subl) 0.4 mg SUBLINGUAL Q5M PRN PRN Reason: chest pain Nystatin (Nystatin Powder 15gm Bottle) 1 applic TOPICAL BID [facility]; Protocol Last Admin: 12/11/20 21:37 Dose: 1 applicatio Documented by: Ondansetron HCl (Ondansetron 4 Mg/2 Ml Vial) 4 mg IV Q8H PRN PRN PRN Reason: NAUSEA/VOMITING Oxycodone HCl (Oxycodone 5 Mg Tablet) 10 mg PO TID PRN PRN PRN Reason: PAIN 1-07/26 Last Admin: 12/12/20 00:07 Dose: 10 mg Documented by: Pantoprazole Sodium (Pantoprazole Sodium 40 Mg Tablet) 40 mg PO DAILY [facility] Last Admin: 12/11/20 08:08 Dose: 40 mg Documented by: Paroxetine HCl (Paroxetine 20 Mg Tablet) 40 mg PO DAILY [facility] Last Admin: 12/11/20 08:08 Dose: 40 mg Documented by: Polysaccharide Iron Complex ([facility] Polysaccharide [facility] 150 [facility]) [facility] Admin: 12/11/20 08:09 Dose: 150 mg Documented by: Pramipexole Dihydrochloride (Pramipexole Di-Hcl 1 Mg Tablet) 1 mg PO QHS [facility] Last Admin: 12/11/20 21:37 Dose: 1 mg Documented by: Sodium Chloride (0.9% Saline Lock 10 Ml Syringe) 10 - 40 ml IV UD PRN PRN Reason: SALINE FLUSH Last Admin: 12/10/20 11:01 Dose: 20 ml Documented by: STROKE Vital Signs/Narrative: Vital Signs Pulse Resp Pulse Ox 12/12/20 07:01 56 L 16 96 Medical Necessity - Tobacco Use Smoking Status: Former smoker Assessment/Plan All Active Problems (Last Reviewed 12/10/20 @ 11:[address] Brown Vargas MD) Fracture of right great toe (Acute) Cellulitis of right leg (Acute)
--- NOTE | 2020-12-12 08:52 | CASEMGMT ---
Social Work Note SW received message from Jyothi in TCU stating pre-cert was obtained and pt can discharge to TCU today if medically cleared. Plan: TCU today [facility] [employer], [employer]
[2020-12-12] MEDS: Calcium Carb/Vitamin D 1 TABLET Tablet PO (09:46)
[2020-12-12] MEDS: Paroxetine 20 MG Tablet 40 MG PO (09:47)
[2020-12-12] MEDS: Amiodarone 200 MG Tablet PO (09:47)
[2020-12-12] MEDS: Lisinopril 10 MG Tablet PO (09:47)
[2020-12-12] MEDS: hydrALAZINE 50 MG Tablet PO (09:48)
[2020-12-12] MEDS: Iron Polysaccharide Complex 150 MG CAPSULE PO (09:48)
[2020-12-12] MEDS: Cyanocobalamin 500 MCG Tablet 1000 MCG PO (09:48)
[2020-12-12] MEDS: Aspirin E.C. 81 MG Tablet PO (09:48)
[2020-12-12] MEDS: Pantoprazole Sodium 40 MG Tablet PO (09:49)
[2020-12-12] MEDS: Furosemide 40 MG Tablet PO ×2 (09:49→17:26)
[2020-12-12] MEDS: Nystatin Powder 15gm Bottle 1 APPLIC TOPICAL (09:51)
[2020-12-12] MEDS: Fluticasone 0.05% 1 SPRAY NASAL.SRY 2 SPRAY NASAL (09:51)
[2020-12-12] MEDS: Metoprolol Tartrate 25 MG Tablet PO (09:53)
[2020-12-12] MEDS: amLODIPine 10 MG Tablet PO (09:54)
[2020-12-12] MEDS: Insulin Lispro 100 UNIT/ML INSULN.PEN SC ×6 (09:55→17:25)
--- NOTE | 2020-12-12 11:07 | PN_ITS ---
Patient Problems: Active and Suspected Problems (Last Reviewed 12/10/20 @ 11:[address] Brown Vargas MD) Fracture of right great toe (Acute) Cellulitis of right leg (Acute) Subjective: Patient was seen this morning for follow up on right 1st toe fracture, nail avulsion with wound and cellulitis. Her case is additionally complicated with peripheral vascular disease and diabetes. She has continued rest pain to her legs and feet however reports her right great toe hurts less this morning. She denies current f/c/n/v/loss of appetite. - Physical Exam Vitals/I&O's: Vital Signs Temp Pulse Resp BP Pulse Ox 98.1 F 57 L 18 160/51 H 97 12/12/20 09:40 12/12/20 09:53 12/12/20 09:40 12/12/20 09:48 12/12/20 09:40 Oxygen Flow Rate (L/min) 4 Oxygen Delivery Method Nasal Cannula Weight: 82.2 kg Body Mass Index (BMI) 36.6 Finger Stick Blood Glucose 112 Intake and Output for Last 24 Hours 12/10/20 12/11/20 12/12/20 23:59 23:59 23:59 Intake Total 1080.25 / 1080.25 1906 / 1906 450 / 450 Output Total 2100 / 2100 1500 / 1500 1250 / 1250 Balance -1019.75 / -1019.75 406 / 406 -800 / -800 General: Alert, Oriented x3, Cooperative Extremities: No edema Skin: Ulcer/ Wound - Bilateral lower extremity dressings are clean, dry, and intact without odor or peripheral erythema. There is no strikethrough noted on the bandages. Musculoskeletal: Muscle Wasting Psych/Mental Status: Normal Affect, Appropriate Microbiology Past 72 Hours 12/06/20 16:28 Blood Culture (Wb) - Left Wrist Blood Culture - Final No growth in 5 days. 12/06/20 15:45 Blood Culture (Wb) - Anticubital Right Blood Culture - Final No growth in 5 days. 12/11/20 14:50 Mucosa - Nose SARS-CoV-2 Antigen (Rapid) - Final 12/06/20 18:40 Wound - Toe Gram Stain - Final 12/06/20 18:40 Wound - Toe Wound Culture - Final Serratia marcescens Klebsiella pneumoniae sp pneum Enterococcus faecalis 12/06/20 18:40 Wound - Toe Anaerobic Culture - Final No anaerobic bacteria isolated. Laboratory Results 12/11/20 11:11: POC Glucose 112 H 12/11/20 16:59: POC Glucose 173 H 12/11/20 21:43: POC Glucose 283 H 12/12/20 04:45: Sodium 139, Potassium 4.0, Chloride 104, Carbon Dioxide 32.0, BUN 28 H, Creatinine 1.27 H, Estim Creat Clear Calc 50.43, Est GFR (MDRD) Af Amer 53 L, Est GFR (MDRD) Non-Af 44 L, BUN/Creatinine Ratio 22.0 H, Glucose 238 H, Calcium 8.0 L, Phosphorus 3.0, Albumin 2.1 L Current Medications Acetaminophen (Acetaminophen 325 Mg Tablet) 650 mg PO Q6H PRN PRN PRN Reason: Pain Score 1-10/Temp > 100.7 F Last Admin: 12/11/20 23:02 Dose: 650 mg Documented by: Albuterol Sulfate (Albuterol 2.5 Mg/3 Ml Vial.Neb.) 2.5 mg INHALATION Q4H PRN PRN PRN Reason: SOB &/OR WHEEZING Albuterol/Ipratropium (Ipratropium/Albuterol Sulfate 3 Ml Ampul.Neb) 3 ml INHALATION Q6HWA.RT [facility] 234 BEDS AT [facility] Last Admin: 12/12/20 07:03 Dose: 3 ml Documented by: Amiodarone HCl (Amiodarone 200 Mg Tablet) 200 mg PO DAILY [facility] 234 BEDS AT [facility] Last Admin: 12/12/20 09:47 Dose: 200 mg Documented by: Amlodipine Besylate (Amlodipine 10 Mg Tablet) 10 mg PO DAILY [facility]CLUDE 234 BEDS AT [facility] Last Admin: 12/12/20 09:54 Dose: 10 mg Documented by: Aspirin (Aspirin E.C. 81 Mg Tablet) 81 mg PO DAILY@0800 [facility]S [facility]CLUDE 234 BEDS AT [facility] Last Admin: 12/12/20 09:48 Dose: 81 mg Documented by: Atorvastatin Calcium (Atorvastatin Calcium 80 Mg Tablet) 80 mg PO QHS [facility]S [facility]CLUDE 234 BEDS AT [facility] Last Admin: 12/11/20 21:36 Dose: 80 mg Documented by: Budesonide (Budesonide Respules 0.5 Mg/2 Ml Ampul.Neb.) 0.5 mg INHALATION Q12H.RT [facility]S INCLUDE 234 BEDS AT [facility] Last Admin: 12/12/20 07:03 Dose: 0.5 mg Documented by: Calcium/Vitamin D (Calcium Carb/Vitamin D 1 Tablet Tablet) 1 tablet PO DAILYCM COUNTS INCLUDE 234 BEDS AT [facility] Last Admin: 12/12/20 09:46 Dose: 1 tablet Documented by: Cyanocobalamin (Cyanocobalamin 500 Mcg Tablet) 1,000 mcg PO DAILY [facility]CLUDE 234 BEDS AT [facility] Last Admin: 12/12/20 09:48 Dose: 1,000 mcg Documented by: Dextrose (Dextrose 50%-Water 25 Gm/50 Ml Disp.Syrin) 0 gm IV X1 PRN; Protocol PRN Reason: Hypoglycemia Fluticasone Propionate (Fluticasone 0.05% 1 [place] Nasal.Sry) 2 spray NASAL DAILY [facility]S INCLUDE 234 BEDS AT [facility] Last Admin: 12/12/20 09:51 Dose: 2 sprays Documented by: Furosemide (Furosemide 40 Mg Tablet) 40 mg PO BID@1000,1800 COUNTS INCLUDE 234 BEDS AT [facility] Last Admin: 12/12/20 09:49 Dose: 40 mg Documented by: Glucagon (Glucagon 1 Mg/Ml Syringe) 1 mg IM .X1 PRN PRN Reason: Hypoglycemia Hydralazine HCl (Hydralazine 20 Mg/Ml Vial) 10 mg IV Q4H PRN PRN PRN Reason: sbp > 180 or DBP > 120 Hydralazine HCl (Hydralazine 50 Mg Tablet) 50 mg PO BID [facility]S INCLUDE 234 BEDS AT [facility] Last Admin: 12/12/20 09:48 Dose: 50 mg Documented by: Sodium Chloride () 250 mls @ 15 mls/hr IV .[id number] PRN PRN Reason: Saline Flush Last Admin: 12/11/20 20:50 Dose: 15 mls/hr Documented by: Sodium Chloride () 250 mls @ 15 mls/hr IV .[id number] PRN PRN Reason: Additional IVPB Infusion Last Infusion: 12/10/20 06:21 Dose: Infused Documented by: Piperacillin Sod/Tazobactam (Sod 3.375 gm/ Sodium Chloride) 50 mls @ 12.5 mls/hr IV Q12 [facility]S [facility]CLUDE 234 BEDS AT [facility] Last Admin: 12/12/20 10:07 Dose: 12.5 mls/hr Documented by: Insulin Glargine (Insulin Glargine 100 Units/Ml Pen) 10 units SC BREAKFAST [facility]S [facility]CLUDE 234 BEDS AT [facility] Last Admin: 12/12/20 09:57 Dose: 10 units Documented by: Insulin Human Lispro (Insulin Lispro 100 Unit/Ml Insuln.Pen) 0 unit SC TIDCM [facility]S [facility]CLUDE 234 BEDS AT [facility]; Protocol Last Admin: 12/12/20 09:55 Dose: 3 units Documented by: Insulin Human Lispro (Insulin Lispro 100 Unit/Ml Insuln.Pen) 5 unit SC TIDCM [facility]S INCLUDE 234 BEDS AT [facility] Last Admin: 12/12/20 09:56 Dose: 5 u Documented by: Lactobacillus Acidophilus (Lactobacillus Acidophilus) 1 tablet PO DAILY [facility]S INCLUDE 234 BEDS AT [facility] Last Admin: 12/12/20 09:47 Dose: 1 tablet Documented by: Levothyroxine Sodium (Levothyroxine 25 Mcg Tablet) 25 mcg PO DAILY@0600 COUNTS INCLUDE 234 BEDS AT [facility] Last Admin: 12/12/20 05:47 Dose: 25 mcg Documented by: Lisinopril (Lisinopril 10 Mg Tablet) 10 mg PO DAILY [facility]CLUDE 234 BEDS AT [facility] Last Admin: 12/12/20 09:47 Dose: 10 mg Documented by: Metoprolol Tartrate (Metoprolol Tartrate 25 Mg Tablet) 25 mg PO BID [facility]CLUDE 234 BEDS AT [facility] Last Admin: 12/12/20 09:53 Dose: 25 mg Documented by: Nitroglycerin (Nitroglycerin (Inpatient Use) 0.4 Mg Tab.Subl) 0.4 mg SUBLINGUAL Q5M PRN PRN Reason: chest pain Nystatin (Nystatin Powder 15gm Bottle) 1 applic TOPICAL BID [facility]S [facility]CLUDE 234 BEDS AT [facility]; Protocol Last Admin: 12/12/20 09:51 Dose: 1 applicatio Documented by: Ondansetron HCl (Ondansetron 4 Mg/2 Ml Vial) 4 mg IV Q8H PRN PRN PRN Reason: NAUSEA/VOMITING Oxycodone HCl (Oxycodone 5 Mg Tablet) 10 mg PO TID PRN PRN PRN Reason: PAIN 1-07/26 Last Admin: 12/12/20 10:07 Dose: 10 mg Documented by: Pantoprazole Sodium (Pantoprazole Sodium 40 Mg Tablet) 40 mg PO DAILY [facility]S INCLUDE 234 BEDS AT [facility] Last Admin: 12/12/20 09:49 Dose: 40 mg Documented by: Paroxetine HCl (Paroxetine 20 Mg Tablet) 40 mg PO DAILY COUNTS INCLUDE 234 BEDS AT [facility] Last Admin: 12/12/20 09:47 Dose: 40 mg Documented by: Polysaccharide Iron Complex (Iron Polysaccharide [facility] 150 [facility]ule) [facility] Last Admin: 12/12/20 09:48 Dose: 150 mg Documented by: Pramipexole Dihydrochloride (Pramipexole Di-Hcl 1 Mg Tablet) 1 mg PO QHS COUNTS INCLUDE 234 BEDS AT [facility] Last Admin: 12/11/20 21:37 Dose: 1 mg Documented by: Sodium Chloride (0.9% Saline Lock 10 Ml Syringe) 10 - 40 ml IV UD PRN PRN Reason: SALINE FLUSH Last Admin: 12/10/20 11:01 Dose: 20 ml Documented by: Medical Necessity - Tobacco Use Smoking Status: Former smoker Assessment/Plan All Active Problems (Last Reviewed 12/10/20 @ 11:[address] Brown Vargas MD) Fracture of right great toe (Acute) Cellulitis of right leg (Acute) Right 1st toe distal phalanx fracture - open, w/ laceration down to bone and onycholysis of the 1st toenail (now s/p nail avulsion) Cellulitis right foot improving; osteo not suspected Fissure wound left heel - no infection Fissure wound right heel - no infection Diabetes with peripheral neuropathy (A1C 6.7%) Peripheral vascular disease Multiple comorbidities Reviewed and discussed case. She is afebrile. Culture has been obtained right 1st toe - serratia, klebsiella, enterococcus. MRI neg for osteomyelitis. Blood cultures negative so far. Patient on IV zosyn for hospital duration. ID on consult and appreciated. Plan for 7 additional days of omnicef 300 daily and linezolid 600 BID at discharge. Vascular surgery on consult with intervention planned. CT abdomen pelvis was completed for intervention planning per Dr. Vargas. Consult and intervention is appreciated. To change right foot dressing with adaptic, hydrogel, and gauze daily. No weightbearing right foot and WBAT left foot with surgical shoe. Medical management per primary team as noted. Anticipated transfer to transitional care unit is noted possibly today or this weekend. Is okay to transfer from a podiatry standpoint. Lower extremity surgical intervention is not recommended at this time. She is responding well to wound care. The podiatry team will continue to follow her weekly while in the transitional care unit. Please not hesitate to call if you have any questions. Kenna Sethi DPM, [facility] [phone]
--- NOTE | 2020-12-12 11:11 | PCM.TXEXTCAR ---
- Diet 12/10/20 10:49 Diet: Cardiac: Calorie-Controlled Dietary Modifications:: Consistent Carbohydrate Sodium Restricted Is pt able to select menu?: Yes How many daily calories?: 1800 calorie - Routine Orders/Code Status Suppository Type: Dulcolax 10mg Suppository Frequency: Daily PRN Routine Lab Work: CBC - Weekly while on antibiotic, BMP - Weekly while on antibiotic - Wound(s) R. great toe Wound Type: open area from removal of toenail Dressing Change: hydrogel with Adaptic bilat heels Wound Type: fissures bilateral heels Dressing Change: hydrogel with Adaptic - Therapies Weight Bearing: Non weight bearing Extremity Affected:: Bilateral Lower Physical Therapy: Eval and Treat Occupational Therapy: Eval and Treat Speech Therapy: Eval and Treat - Allergies/Procedures Done in Hospital Allergies/Adverse Reactions: Allergies ciprofloxacin [From Cipro] Allergy (Verified 12/06/20 14:44) Rash ciprofloxacin HCl [From Cipro] Allergy (Verified 12/06/20 14:44) Rash gabapentin [From Neurontin] Allergy (Verified 12/06/20 14:44) Rash heparin Allergy (Verified 12/06/20 14:44) Low platelets - Type of Care/Length of Stay Estimated LOS: Convalescent Care Less Than 30 days Type of Care Needed: Skilled Rehab Potential: Good Prognosis: Good - Additional Orders/Day of Discharge Additional Orders: Watch for antibiotic while on baby aspirin and Eliquis 2.5 mg twice daily. If major bleeding, can discontinue aspirin first and keep Eliquis. Bilateral diffuse peripheral artery disease Day of Discharge: 12/12/20 - Dietary and Speech Recommendations Dietitian Recommendations/Changes: Will d/c yarelis martinez. Will change diet to 1800 calorie/cardiac; sodium-restricted with FR as needed. - Follow Up Care Primary Care Physician: Yesenia Leon [employer], [employer] [Primary Care Provider] - Please follow up with your Primary Care Physician in: IN 1-2 WEEK Please Follow Up With: Kenna Sethi DPM When: In 2 weeks Please Follow Up With: Jeevan Cordova MD When: As needed Please Follow Up With: Clau Iniguez MD When: IN in 2 to 4 weeks for CKD
--- NOTE | 2020-12-12 11:33 | PCM.DC.SUM ---
Discharge Date and Diagnosis - Problem List Patient Problems: Active and Suspected Problems (Last Reviewed 12/10/20 @ 11:[address] Brown Vargas MD) Fracture of right great toe (Acute) Cellulitis of right leg (Acute) Date of Admission: 12/06/20 Date of Discharge: 12/12/20 - Primary Discharge Diagnosis Acute Problems: Active Problems (Last Reviewed 12/10/20 @ 11:[address] Brown Vargas MD) Fracture of right great toe (Acute) Cellulitis of right leg (Acute) - Secondary Discharge Diagnosis Chronic Problems: Chronic Problems (Last Reviewed 12/10/20 @ 11:[address] Brown Vargas MD) Obesity (Chronic) Acute on chronic diastolic CHF (congestive heart failure) (Chronic) COPD exacerbation (Chronic) Diabetes (Chronic) Toxic multinodular goiter (Chronic) Polyneuropathy due to type 2 diabetes mellitus (Chronic) COPD (chronic obstructive pulmonary disease) (Chronic) Acute on chronic respiratory failure with hypoxia (Chronic) Paroxysmal atrial fibrillation (Chronic) Anemia (Chronic) Non-rheumatic aortic stenosis (Chronic) H/O aortic valve replacement (Chronic 12/03/16) TAVR: 23 mm Guillaume-Sapiens S3 valve 12/03/2016 Chronic diastolic heart failure (Chronic) Left carotid artery stenosis (Chronic) Right bundle branch block (RBBB) (Chronic) Hyperlipidemia (Chronic) Essential (primary) hypertension (Chronic) Hospital Course and Treatment Imaging Results: 12/12/20 07:44 CXR [Chest PA and Lateral] [RAD] Urgent Consultations 12/06/20 19:34 Consult: Onc/Wound/investor relations director Routine Comment: Operations: None Summary of Care Provided: The patient is a 75 year old F with multiple comorbidities was admitted with right great toe injury before admission with persistent bleeding and redness consistent with cellulitis. 1. Right lower extremity cellulitis secondary to injury to right great toe/skin tear. Lactic acid was elevated but thought to be secondary to patient's hypoxia. MRI did not show osteomyelitis. Initially, patient was started on IV vancomycin and Zosyn. MRSA and MSSA screen negative. Lactic acid was elevated, however, I do not feel that that is related with underlying sepsis or severe sepsis but more likely due to the patient's hypoxia that she presented with. MRI did not show any osteomyelitis. MRSA and MSSA screen negative. Seen by ID recommended to continue vancomycin and Zosyn. Wound culture growing Serratia marcescens, Klebsiella pneumonia and Enterococcus faecalis. Patient was seen by ID. Vancomycin is stopped. Zosyn dose decreased. Patient is discharged on 7 days of linezolid 600 mg twice daily and Omnicef 300 mg daily. Patient discharged to TCU and will be followed by foreclosure paralegal and ID there. 2. Right great toe distal phalanx fracture with peripheral arterial disease: Seen by foreclosure paralegal. Patient also had great toenail avulsion and onycholysis. Vascular studies reported left ASAD 0.48. Right ASAD could not be calculated. Bilateral dorsalis pedis artery monophasic. Reported as severe arterial occlusive disease bilateral lower extremities with monophasic bilateral Doppler waveforms. Vascular surgeon Dr. Vargas was consulted and he advised CT angiogram of abdomen with runoff to lower extremities. CT reported as diffuse atherosclerotic changes of abdominal aorta and both lower extremities, diffuse calcific plaque with multiple areas of narrowing In both legs below division of right PORTABLE SAWYER. Abdominal aorta has atherosclerotic plaque. Patient was given IV fluid to prevent EMILIA. Discussed with Dr. Vargas over phone and is agrees to discharge to TCU and will follow him next Tuesday to schedule for outpatient angiogram. 3. Cardiac conditions: Chronic atrial fibrillation and acute on chronic diastolic heart failure/HFpEF: Patient on baseline on Lasix at home which was temporarily held for CT angiogram. Patient was given IV fluid and therefore went into acute on chronic diastolic heart failure. Special Class Welder consulted. Currently patient is euvolemic and Lasix 40 mg twice daily. 2D echo was done. It shows valvular heart disease moderate aortic stenosis, mean valve gradient 20, mild AR, mild to moderate TR and mild to moderate eccentric MR. EF 65% with moderate concentric LVH consistent with diastolic heart failure. Normal left atrium. Interpretation Summary Normal LV size. Moderate concentric left ventricular hypertrophy. Left ventricular systolic function is normal. The estimated ejection fraction is 65 %. Mild to moderate (1-2+) tricuspid valve insufficiency. Pulmonary artery systolic pressure is 46 mmHg. continue with amiodarone and metoprolol. Patient is on Eliquis 2.5 mg twice daily. 4. Diabetes mellitus type 2 with diabetic neuropathy Blood glucose was 191 at time of admission. Currently 120. A1c 6.7 continue basal and bolus insulin. 5. Acute hypoxic respiratory insufficiency secondary to heart failure exacerbation and COPD: On baseline 4 L of oxygen. Patient states is due to traveling via her electric wheelchair in the cold took her roughly an hour. Currently no COPD exacerbation. Continue with bronchodilators. 6. CKD stage III: Creatinine varies from 1.5-1.8. Currently creatinine went up from 1.4-1.84. As mentioned above: Lasix was held and IV fluid normal saline was given to prevent EMILIA. Lasix was resumed. Patient was seen by photoengraving etcher. VTE prophylaxis with SCDs . Patient has allergy to heparin and heparin products. Discharge medication reconciliation done. Discharge follow-up instructions completed. Discharge process discussed with the patient and all questions were answered to patient's satisfaction. Discharged to TCU. Total time spent, exact 35 minutes on discharge meds reconciliation, examination, coordination of care with nurses and ancillary staff, review of imaging and blood test and discussion with the patient on follow-up instructions Patient Problems: Active and Suspected Problems (Last Reviewed 12/10/20 @ 11:[address] Brown Vargas MD) Fracture of right great toe (Acute) Cellulitis of right leg (Acute) Objective: Heart rate and blood pressure in normal range. Pulse ox 96% on 4 L of oxygen. Patient -3 L of fluid balance. Repeat chest x-ray shows improvement in the fluid still shows mild vascular congestion, CHF Physical exam General: Alert, Oriented x3, Cooperative HEENT: Atraumatic, PERRLA, EOMI, Normocephalic Oral: No Gingival or Mucosal Lesions/ Ulcerations Neck: Supple, No JVD, Negative Carotid Bruits Lungs: Air entry diminished in bilateral lung bases. Mild bilateral wheezing, improved than yesterday Cardiovascular: Regular rate, Regular Rhythm, Normal S1, Normal S2, No murmurs. Bilateral diminished pulsation below knee level, both lower legs, left more than right. Abdomen: Bowel Sounds Present, Soft, Non Tender, Non-Distended : No renal angle tenderness. No suprapubic tenderness. Extremities: No edema, Capillary Refill Less than 3 Seconds Skin: Small wound over right heel down to the subcutaneous level, erythema resolved. Tenderness over right great toe. Avulsion of the right great toenail with onycholysis Musculoskeletal: Tenderness of right great toe. Fracture was closed manual reduction by foreclosure paralegal. Neurological: Cranial nerves II-XII grossly intact, Deep Tendon Reflexes 2+/4 and Symmetrical, Neuro grossly intact Psych/Mental Status: Normal Affect, Appropriate. - Physical Exam Vitals/I&O's: Vital Signs Temp Pulse Resp BP Pulse Ox 98.1 F 57 L 18 160/51 H 97 12/12/20 09:40 12/12/20 09:53 12/12/20 09:40 12/12/20 09:48 12/12/20 09:40 Oxygen Flow Rate (L/min) 4 Oxygen Delivery Method Nasal Cannula Weight: 181 lb 3.52 oz Body Mass Index (BMI) 36.6 Finger Stick Blood Glucose 112 Intake and Output for Last 24 Hours 12/10/20 12/11/20 12/12/20 23:59 23:59 23:59 Intake Total 1080.25 / 1080.25 1906 / 1906 450 / 450 Output Total 2100 / 2100 1500 / 1500 1250 / 1250 Balance -1019.75 / -1019.75 406 / 406 -800 / -800 Microbiology Past 72 Hours 12/06/20 16:28 Blood Culture (Wb) - Left Wrist Blood Culture - Final No growth in 5 days. 12/06/20 15:45 Blood Culture (Wb) - Anticubital Right Blood Culture - Final No growth in 5 days. 12/11/20 14:50 Mucosa - Nose SARS-CoV-2 Antigen (Rapid) - Final 12/06/20 18:40 Wound - Toe Gram Stain - Final 12/06/20 18:40 Wound - Toe Wound Culture - Final Serratia marcescens Klebsiella pneumoniae sp pneum Enterococcus faecalis 12/06/20 18:40 Wound - Toe Anaerobic Culture - Final No anaerobic bacteria isolated. Laboratory Results 12/11/20 16:59: POC Glucose 173 H 12/11/20 21:43: POC Glucose 283 H 12/12/20 04:45: Sodium 139, Potassium 4.0, Chloride 104, Carbon Dioxide 32.0, BUN 28 H, Creatinine 1.27 H, Estim Creat Clear Calc 50.43, Est GFR (MDRD) Af Amer 53 L, Est GFR (MDRD) Non-Af 44 L, BUN/Creatinine Ratio 22.0 H, Glucose 238 H, Calcium 8.0 L, Phosphorus 3.0, Albumin 2.1 L Current Medications Acetaminophen (Acetaminophen 325 Mg Tablet) 650 mg PO Q6H PRN PRN PRN Reason: Pain Score 1-10/Temp > 100.7 F Last Admin: 12/11/20 23:02 Dose: 650 mg Documented by: Albuterol Sulfate (Albuterol 2.5 Mg/3 Ml Vial.Neb.) 2.5 mg INHALATION Q4H PRN PRN PRN Reason: SOB &/OR WHEEZING Albuterol/Ipratropium (Ipratropium/Albuterol Sulfate 3 Ml Ampul.Neb) 3 ml INHALATION Q6HWA.RT [facility] Last Admin: 12/12/20 07:03 Dose: 3 ml Documented by: Amiodarone HCl (Amiodarone 200 Mg Tablet) 200 mg PO DAILY [facility] Last Admin: 12/12/20 09:47 Dose: 200 mg Documented by: Amlodipine Besylate (Amlodipine 10 Mg Tablet) 10 mg PO DAILY [facility] Last Admin: 12/12/20 09:54 Dose: 10 mg Documented by: Aspirin (Aspirin E.C. 81 Mg Tablet) 81 mg PO DAILY@0800 [facility] Last Admin: 12/12/20 09:48 Dose: 81 mg Documented by: Atorvastatin Calcium (Atorvastatin Calcium 80 Mg Tablet) 80 mg PO QHS [facility] Last Admin: 12/11/20 21:36 Dose: 80 mg Documented by: Budesonide (Budesonide Respules 0.5 Mg/2 Ml Ampul.Neb.) 0.5 mg INHALATION Q12H.RT [facility] Last Admin: 12/12/20 07:03 Dose: 0.5 mg Documented by: Calcium/Vitamin D (Calcium Carb/Vitamin D 1 Tablet Tablet) 1 tablet PO DAILYCM [facility] Last Admin: 12/12/20 09:46 Dose: 1 tablet Documented by: Cyanocobalamin (Cyanocobalamin 500 Mcg Tablet) 1,000 mcg PO DAILY [facility] Last Admin: 12/12/20 09:48 Dose: 1,000 mcg Documented by: Dextrose (Dextrose 50%-Water 25 Gm/50 Ml Disp.Syrin) 0 gm IV X1 PRN; Protocol PRN Reason: Hypoglycemia Fluticasone Propionate (Fluticasone 0.05% 1 [place] Nasal.Sry) 2 spray NASAL DAILY [facility] Last Admin: 12/12/20 09:51 Dose: 2 sprays Documented by: Furosemide (Furosemide 40 Mg Tablet) 40 mg PO BID@1000,1800 [facility] Last Admin: 12/12/20 09:49 Dose: 40 mg Documented by: Glucagon (Glucagon 1 Mg/Ml Syringe) 1 mg IM .X1 PRN PRN Reason: Hypoglycemia Hydralazine HCl (Hydralazine 20 Mg/Ml Vial) 10 mg IV Q4H PRN PRN PRN Reason: sbp > 180 or DBP > 120 Hydralazine HCl (Hydralazine 50 Mg Tablet) 50 mg PO BID [facility] Last Admin: 12/12/20 09:48 Dose: 50 mg Documented by: Sodium Chloride () 250 mls @ 15 mls/hr IV .[id number] PRN PRN Reason: Saline Flush Last Admin: 12/11/20 20:50 Dose: 15 mls/hr Documented by: Sodium Chloride () 250 mls @ 15 mls/hr IV .[id number] PRN PRN Reason: Additional IVPB Infusion Last Infusion: 12/10/20 06:21 Dose: Infused Documented by: Piperacillin Sod/Tazobactam (Sod 3.375 gm/ Sodium Chloride) 50 mls @ 12.5 mls/hr IV Q12 [facility] Last Admin: 12/12/20 10:07 Dose: 12.5 mls/hr Documented by: Insulin Glargine (Insulin Glargine 100 Units/Ml Pen) 10 units SC BREAKFAST [facility] Last Admin: 12/12/20 09:57 Dose: 10 units Documented by: Insulin Human Lispro (Insulin Lispro 100 Unit/Ml Insuln.Pen) 0 unit SC TIDCM [facility]; Protocol Last Admin: 12/12/20 09:55 Dose: 3 units Documented by: Insulin Human Lispro (Insulin Lispro 100 Unit/Ml Insuln.Pen) 5 unit SC TIDCM [facility] Last Admin: 12/12/20 09:56 Dose: 5 u Documented by: Lactobacillus Acidophilus (Lactobacillus Acidophilus) 1 tablet PO DAILY [facility] Last Admin: 12/12/20 09:47 Dose: 1 tablet Documented by: Levothyroxine Sodium (Levothyroxine 25 Mcg Tablet) 25 mcg PO DAILY@0600 [facility] Last Admin: 12/12/20 05:47 Dose: 25 mcg Documented by: Lisinopril (Lisinopril 10 Mg Tablet) 10 mg PO DAILY [facility] Last Admin: 12/12/20 09:47 Dose: 10 mg Documented by: Metoprolol Tartrate (Metoprolol Tartrate 25 Mg Tablet) 25 mg PO BID [facility] Last Admin: 12/12/20 09:53 Dose: 25 mg Documented by: Nitroglycerin (Nitroglycerin (Inpatient Use) 0.4 Mg Tab.Subl) 0.4 mg SUBLINGUAL Q5M PRN PRN Reason: chest pain Nystatin (Nystatin Powder 15gm Bottle) 1 applic TOPICAL BID [facility]; Protocol Last Admin: 12/12/20 09:51 Dose: 1 applicatio Documented by: Ondansetron HCl (Ondansetron 4 Mg/2 Ml Vial) 4 mg IV Q8H PRN PRN PRN Reason: NAUSEA/VOMITING Oxycodone HCl (Oxycodone 5 Mg Tablet) 10 mg PO TID PRN PRN PRN Reason: PAIN 1-07/26 Last Admin: 12/12/20 10:07 Dose: 10 mg Documented by: Pantoprazole Sodium (Pantoprazole Sodium 40 Mg Tablet) 40 mg PO DAILY [facility] Last Admin: 12/12/20 09:49 Dose: 40 mg Documented by: Paroxetine HCl (Paroxetine 20 Mg Tablet) 40 mg PO DAILY [facility] Last Admin: 12/12/20 09:47 Dose: 40 mg Documented by: Polysaccharide Iron Complex (Iron Polysaccharide Complex 150 [facility]apsule) [facility] Last Admin: 12/12/20 09:48 Dose: 150 mg Documented by: Pramipexole Dihydrochloride (Pramipexole Di-Hcl 1 Mg Tablet) 1 mg PO QHS [facility] Last Admin: 12/11/20 21:37 Dose: 1 mg Documented by: Sodium Chloride (0.9% Saline Lock 10 Ml Syringe) 10 - 40 ml IV UD PRN PRN Reason: SALINE FLUSH Last Admin: 12/10/20 11:01 Dose: 20 ml Documented by: Home Medications: Medications to take at Discharge Albuterol Aerosols [Ventolin Aerosols] 2.5 mg INHALATION Q4H PRN PRN 09/26/19 Albuterol IH (ProAir) [Proair Hfa] 2 puff INHALATION Q6H PRN PRN 09/26/19 Cyanocobalamin (Vitamin B-12) [Vitamin B-12] 1,000 mcg PO DAILY 09/26/19 Fluticasone 0.05% [Flonase Nasal [place]] 2 spray NASAL DAILY 09/26/19 Fluticasone/Salmeterol [Advair Hfa 115-21 Mcg Inhaler] 2 puff INHALATION BID 09/26/19 L.acidoph,Paracasei, B.lactis [Probiotic] 1 ea PO DAILY 09/26/19 Nystatin [Nyamyc] 30 gm TP BID 09/26/19 Paroxetine HCl [Paxil] 40 mg PO QHS 09/26/19 Ropinirole HCl 2 mg PO BID 09/26/19 Tiotropium [place] [Spiriva] 18 mcg IH DAILY 09/26/19 Atorvastatin Calcium [Lipitor] 80 mg PO QHS #30 tab 09/29/19 calcium carbonate 500 mg (1,250 mg)-vitamin D3 200 unit tablet 1 tab PO DAILY tab 01/11/20 lisinopril 10 mg tablet 10 mg PO DAILY 05/05/20 potassium chloride 10 mEq tablet,extended release 10 meq PO BID tab 05/13/20 denosumab 60 mg/mL subcutaneous syringe 60 mg SC [id number] #1 ml 08/04/20 levothyroxine 25 mcg tablet 25 mcg PO DAILY #30 tab 09/03/20 omeprazole 20 mg capsule,delayed release 40 mg PO DAILY cap 09/03/20 amiodarone 200 mg tablet 200 mg PO DAILY #90 tab 10/02/20 apixaban 2.5 mg tablet 2.5 mg PO BID #60 tab 10/07/20 nitroglycerin 0.4 mg sublingual tablet 0.4 mg SUBLINGUAL PRN PRN #25 tab 10/30/20 Aspirin E.C. [Ecotrin] 81 mg PO DAILY@0800 tab 12/12/20 Cefdinir [Omnicef [equiv]] 300 mg PO Q12H #10 cap 12/12/20 Furosemide [Lasix] 40 mg PO BID@1000,1800 tab 12/12/20 Insulin Glargine [Lantus SoloStar Pen] 15 units SC BREAKFAST pen 12/12/20 Insulin Lispro [Humalog KwikPen] 8 unit SC TIDCM insuln.pen 12/12/20 Insulin Lispro [Humalog KwikPen] See Protocol SC TIDCM insuln.pen 12/12/20 Iron Polysaccharide Complex [Ferrex 150] 150 mg PO DAILY #0 12/12/20 Linezolid 600 mg PO BID #10 tab 12/12/20 Metoprolol Tartrate 25 mg PO BID #60 tab 12/12/20 Oxycodone [Oxyir] 5 mg PO TID PRN PRN 2 Days #10 tab 12/12/20 Suvorexant [Belsomra] 20 mg PO QHS #0 12/12/20 Following Prescriptions Were Given to Patient: Linezolid 600 mg PO BID #10 tab Prescription Printed Cefdinir [Omnicef [equiv]] 300 mg PO Q12H #10 cap Prescription Printed Oxycodone [Oxyir] 5 mg PO TID PRN PRN 2 Days #10 tab PRN Reason: PAIN 1-07/26 Prescription Printed Primary Care Physician: Yesenia Leon EMPLOYEE BENEFITS ADMINISTRATOR, EMPLOYEE BENEFITS ADMINISTRATOR-C [Primary Care Provider] - Please follow up with your Primary Care Physician in: IN 1-2 WEEK Please Follow Up With: Kenna Sethi DPM When: In 2 weeks Please Follow Up With: Jeevan Cordova MD When: As needed Please Follow Up With: Clau Inigeuz MD When: IN in 2 to 4 weeks for CKD Medical Necessity - Tobacco Use Smoking Status: Former smoker Meaningful Use Info Meaningful Use Diagnoses (Choose all that apply): CHF - CHF PRISCILA/ARB ordered at discharge?: Yes Documented LVEF (%): 65 Inpatient E&M: 07606 Disch Hosp
--- NOTE | 2020-12-12 11:35 | DCINST_ITS ---
Discharge Activity: May Shower, - - Do not soak feet or legs. Weight Bearing Status: Weight bearing as tolerated - with bilateral surgical shoe Keep extremity elevated above heart level: - - dangle legs if rest pain is noted Call your doctor if your incision/area has: Continuous Slow Oozing, Sudden Increased Bleeding, Increased Pain/ Swelling, Increased Redness, Foul Smelling Discharge Call your doctor if you observe: Fever of 101 or Higher, Calf discomfort, Uncontrolled pain Cleanse incision/area with: Soap & Water Additional Dressing/Incision Instructions:: Change right hallux, right heel, left heel ulcer dressings daily with hydrogel, adaptic, gauze, kerlix. Take care to apply additional gauze to dorsal foot and anterior ankle to avoid dressing injuries. Do not apply carlos wraps. Additional Instructions: Hang heels over pillows to float them in the air while resting to keep pressure off of heels. Allergies/Adverse Reactions: Allergies ciprofloxacin [From Cipro] Allergy (Verified 12/06/20 14:44) Rash ciprofloxacin HCl [From Cipro] Allergy (Verified 12/06/20 14:44) Rash gabapentin [From Neurontin] Allergy (Verified 12/06/20 14:44) Rash heparin Allergy (Verified 12/06/20 14:44) Low platelets Medications to take at Discharge Albuterol Aerosols [Ventolin Aerosols] 2.5 mg INHALATION Q4H PRN PRN 09/26/19 Albuterol IH (ProAir) [Proair Hfa] 2 puff INHALATION Q6H PRN PRN 09/26/19 Cyanocobalamin (Vitamin B-12) [Vitamin B-12] 1,000 mcg PO DAILY 09/26/19 Fluticasone 0.05% [Flonase Nasal [place]] 2 spray NASAL DAILY 09/26/19 Fluticasone/Salmeterol [Advair Hfa 115-21 Mcg Inhaler] 2 puff INHALATION BID 09/26/19 L.acidoph,Paracasei, B.lactis [Probiotic] 1 ea PO DAILY 09/26/19 Nystatin [Nyamyc] 30 gm TP BID 09/26/19 Paroxetine HCl [Paxil] 40 mg PO QHS 09/26/19 Ropinirole HCl 2 mg PO BID 09/26/[address] [Spiriva] 18 mcg IH DAILY 09/26/19 Atorvastatin Calcium [Lipitor] 80 mg PO QHS #30 tab 09/29/19 calcium carbonate 500 mg (1,250 mg)-vitamin D3 200 unit tablet 1 tab PO DAILY tab 01/11/20 lisinopril 10 mg tablet 10 mg PO DAILY 05/05/20 potassium chloride 10 mEq tablet,extended release 10 meq PO BID tab 05/13/20 denosumab 60 mg/mL subcutaneous syringe 60 mg SC [id number] #1 ml 08/04/20 levothyroxine 25 mcg tablet 25 mcg PO DAILY #30 tab 09/03/20 omeprazole 20 mg capsule,delayed release 40 mg PO DAILY cap 09/03/20 amiodarone 200 mg tablet 200 mg PO DAILY #90 tab 10/02/20 apixaban 2.5 mg tablet 2.5 mg PO BID #60 tab 10/07/20 nitroglycerin 0.4 mg sublingual tablet 0.4 mg SUBLINGUAL PRN PRN #25 tab 10/30/20 Aspirin E.C. [Ecotrin] 81 mg PO DAILY@0800 tab 12/12/20 Furosemide [Lasix] 40 mg PO BID@1000,1800 tab 12/12/20 Insulin Glargine [Lantus SoloStar Pen] 15 units SC BREAKFAST pen 12/12/20 Insulin Lispro [Humalog KwikPen] 8 unit SC TIDCM insuln.pen 12/12/20 Insulin Lispro [Humalog KwikPen] See Protocol SC TIDCM insuln.pen 12/12/20 Iron Polysaccharide Complex [Ferrex 150] 150 mg PO DAILY #0 12/12/20 Metoprolol Tartrate 25 mg PO BID #60 tab 12/12/20 Oxycodone [Oxyir] 5 mg PO TID PRN PRN 2 Days #10 tab 12/12/20 Suvorexant [Belsomra] 20 mg PO QHS #0 12/12/20 The following prescriptions were given: Oxycodone [Oxyir] 5 mg PO TID PRN PRN 2 Days #10 tab PRN Reason: PAIN 1-07/26 Prescription Printed Primary Care Physician: Yesenia Leon FUELS SALES REPRESENTATIVE, FUELS SALES REPRESENTATIVE-C [Primary Care Provider] - Please follow up with your Primary Care Physician in: IN 1-2 WEEK Test Results: Test results from this visit will be discussed in further detail at your follow- up appointment, if applicable. Please Follow Up With: Kenna Sethi DPM - or Dr. Chavira When: In 1 week [facility]. Call [phone] (will follow if in TCU) Please Follow Up With: Jeevan Cordova MD When: As needed Please Follow Up With: Clau Iniguez MD When: IN in 2 to 4 weeks for CKD Please Follow Up With: Brown Vargas MD When: for follow up tests and surgery. Call [phone]. Proposed Discharge Date: 12/12/20
--- NOTE | 2020-12-12 12:11 | PHA.DC.MR ---
Pharmacy Service has performed discharge medication reconciliation for this [facility] Home Medications Albuterol Aerosols [Ventolin Aerosols] 2.5 mg INHALATION Q4H PRN PRN 09/26/19 Albuterol IH (ProAir) [Proair Hfa] 2 puff INHALATION Q6H PRN PRN 09/26/19 Cyanocobalamin (Vitamin B-12) [Vitamin B-12] 1,000 mcg PO DAILY 09/26/19 Fluticasone 0.05% [Flonase Nasal [place]] 2 spray NASAL DAILY 09/26/19 Fluticasone/Salmeterol [Advair Hfa 115-21 Mcg Inhaler] 2 puff INHALATION BID 09/26/19 L.acidoph,Paracasei, B.lactis [Probiotic] 1 ea PO DAILY 09/26/19 Nystatin [Nyamyc] 30 gm TP BID 09/26/19 Paroxetine HCl [Paxil] 40 mg PO QHS 09/26/19 Ropinirole HCl 2 mg PO BID 09/26/19 Tiotropium [place] [Spiriva] 18 mcg IH DAILY 09/26/19 Atorvastatin Calcium [Lipitor] 80 mg PO QHS #30 tab 09/29/19 calcium carbonate 500 mg (1,250 mg)-vitamin D3 200 unit tablet 1 tab PO DAILY tab 01/11/20 lisinopril 10 mg tablet 10 mg PO DAILY 05/05/20 potassium chloride 10 mEq tablet,extended release 10 meq PO BID tab 05/13/20 denosumab 60 mg/mL subcutaneous syringe 60 mg SC [id number] #1 ml 08/04/20 levothyroxine 25 mcg tablet 25 mcg PO DAILY #30 tab 09/03/20 omeprazole 20 mg capsule,delayed release 40 mg PO DAILY cap 09/03/20 amiodarone 200 mg tablet 200 mg PO DAILY #90 tab 10/02/20 apixaban 2.5 mg tablet 2.5 mg PO BID #60 tab 10/07/20 nitroglycerin 0.4 mg sublingual tablet 0.4 mg SUBLINGUAL PRN PRN #25 tab 10/30/20 Aspirin E.C. [Ecotrin] 81 mg PO DAILY@0800 tab 12/12/20 Furosemide [Lasix] 40 mg PO BID@1000,1800 tab 12/12/20 Insulin Glargine [Lantus SoloStar Pen] 15 units SC BREAKFAST pen 12/12/20 Insulin Lispro [Humalog KwikPen] 8 unit SC TIDCM insuln.pen 12/12/20 Insulin Lispro [Humalog KwikPen] See Protocol SC TIDCM insuln.pen 12/12/20 Iron Polysaccharide Complex [Ferrex 150] 150 mg PO DAILY #0 12/12/20 Metoprolol Tartrate 25 mg PO BID #60 tab 12/12/20 Oxycodone [Oxyir] 5 mg PO TID PRN PRN 2 Days #10 tab 12/12/20 Suvorexant [Belsomra] 20 mg PO QHS #0 12/12/20 The patient's discharge medication list was reviewed for discrepancies and discrepancies were resolved.
[2020-12-12 12:25] LABS: Bedside Glucose 199 mg/dL (70-110)
--- NOTE | 2020-12-12 12:28 | CASEMGMT ---
Social Work SW met with pt and informed that TCU is able to accept, precert has been obtained and physician feels pt is ready for discharge today. Pt is agreeable to d/c plan and requests SW notify her daughter Tsering. Message left with Tsering requesting return call. Jyothi in TCU notified of d/c today and can accept pt. Orders to be faxed when obtained. Plan: TCU, today [facility]
--- NOTE | 2020-12-12 14:29 | PCM.PN.REN ---
Patient Problems: Active and Suspected Problems (Last Reviewed 12/10/20 @ 11:[address] Brown Vargas MD) Fracture of right great toe (Acute) Cellulitis of right leg (Acute) Subjective: Doing Ok. No nausea No vomiting No SOB.remain on NC at 3 l/min - Physical Exam Vitals/I&O's: Vital Signs Temp Pulse Resp BP Pulse Ox 98.1 F 62 14 160/51 H 97 12/12/20 09:40 12/12/20 13:49 12/12/20 13:49 12/12/20 09:48 12/12/20 09:40 Oxygen Flow Rate (L/min) 4 Oxygen Delivery Method Nasal Cannula Weight: 82.2 kg Body Mass Index (BMI) 36.6 Finger Stick Blood Glucose 112 Intake and Output for Last 24 Hours 12/10/20 12/11/20 12/12/20 23:59 23:59 23:59 Intake Total 1080.25 / 1080.25 1906 / 1906 450 / 450 Output Total 2100 / 2100 1500 / 1500 1250 / 1250 Balance -1019.75 / -1019.75 406 / 406 -800 / -800 General: Alert, Oriented x3 HEENT: Atraumatic Oral: Moist Mucosa Neck: Supple, No JVD Lungs: Clear to auscultation, Normal air movement, No rhonchi, No wheeze Cardiovascular: Regular rate, Regular Rhythm, Normal S1, Normal S2 Abdomen: Bowel Sounds Present, Soft, Non Tender, Non-Distended Extremities: No clubbing, No cyanosis, Edema - trace edema of RLE Musculoskeletal: No Tenderness to Palpation of Joints or Extremities Lymphatic: No Cervical, Supraclavicular, or Inguinal Adenopathy Neurological: Cranial nerves II-XII grossly intact, Neuro grossly intact Psych/Mental Status: Appropriate Microbiology Past 72 Hours 12/06/20 16:28 Blood Culture (Wb) - Left Wrist Blood Culture - Final No growth in 5 days. 12/06/20 15:45 Blood Culture (Wb) - Anticubital Right Blood Culture - Final No growth in 5 days. 12/11/20 14:50 Mucosa - Nose SARS-CoV-2 Antigen (Rapid) - Final 12/06/20 18:40 Wound - Toe Gram Stain - Final 12/06/20 18:40 Wound - Toe Wound Culture - Final Serratia marcescens Klebsiella pneumoniae sp pneum Enterococcus faecalis 12/06/20 18:40 Wound - Toe Anaerobic Culture - Final No anaerobic bacteria isolated. Laboratory Results 12/11/20 16:59: POC Glucose 173 H 12/11/20 21:43: POC Glucose 283 H 12/12/20 04:45: Sodium 139, Potassium 4.0, Chloride 104, Carbon Dioxide 32.0, BUN 28 H, Creatinine 1.27 H, Estim Creat Clear Calc 50.43, Est GFR (MDRD) Af Amer 53 L, Est GFR (MDRD) Non-Af 44 L, BUN/Creatinine Ratio 22.0 H, Glucose 238 H, Calcium 8.0 L, Phosphorus 3.0, Albumin 2.1 L 12/12/20 12:18: POC Glucose 199 H Current Medications Acetaminophen (Acetaminophen 325 Mg Tablet) 650 mg PO Q6H PRN PRN PRN Reason: Pain Score 1-10/Temp > 100.7 F Last Admin: 12/11/20 23:02 Dose: 650 mg Documented by: Albuterol Sulfate (Albuterol 2.5 Mg/3 Ml Vial.Neb.) 2.5 mg INHALATION Q4H PRN PRN PRN Reason: SOB &/OR WHEEZING Albuterol/Ipratropium (Ipratropium/Albuterol Sulfate 3 Ml Ampul.Neb) 3 ml INHALATION Q6HWA.RT [facility] Last Admin: 12/12/20 13:48 Dose: 3 ml Documented by: Amiodarone HCl (Amiodarone 200 Mg Tablet) 200 mg PO DAILY [facility] Last Admin: 12/12/20 09:47 Dose: 200 mg Documented by: Amlodipine Besylate (Amlodipine 10 Mg Tablet) 10 mg PO DAILY [facility] Last Admin: 12/12/20 09:54 Dose: 10 mg Documented by: Aspirin (Aspirin E.C. 81 Mg Tablet) 81 mg PO DAILY@0800 [facility] Last Admin: 12/12/20 09:48 Dose: 81 mg Documented by: Atorvastatin Calcium (Atorvastatin Calcium 80 Mg Tablet) 80 mg PO QHS [facility] Last Admin: 12/11/20 21:36 Dose: 80 mg Documented by: Budesonide (Budesonide Respules 0.5 Mg/2 Ml Ampul.Neb.) 0.5 mg INHALATION Q12H.RT [facility] Last Admin: 12/12/20 07:03 Dose: 0.5 mg Documented by: Calcium/Vitamin D (Calcium Carb/Vitamin D 1 Tablet Tablet) 1 tablet PO DAILYCM [facility] Last Admin: 12/12/20 09:46 Dose: 1 tablet Documented by: Cyanocobalamin (Cyanocobalamin 500 Mcg Tablet) 1,000 mcg PO DAILY [facility] Last Admin: 12/12/20 09:48 Dose: 1,000 mcg Documented by: Dextrose (Dextrose 50%-Water 25 Gm/50 Ml Disp.Syrin) 0 gm IV X1 PRN; Protocol PRN Reason: Hypoglycemia Fluticasone Propionate (Fluticasone 0.05% 1 [place] Nasal.Sry) 2 spray NASAL DAILY [facility] Last Admin: 12/12/20 09:51 Dose: 2 sprays Documented by: Furosemide (Furosemide 40 Mg Tablet) 40 mg PO BID@1000,1800 [facility] Last Admin: 12/12/20 09:49 Dose: 40 mg Documented by: Glucagon (Glucagon 1 Mg/Ml Syringe) 1 mg IM .X1 PRN PRN Reason: Hypoglycemia Hydralazine HCl (Hydralazine 20 Mg/Ml Vial) 10 mg IV Q4H PRN PRN PRN Reason: sbp > 180 or DBP > 120 Hydralazine HCl (Hydralazine 50 Mg Tablet) 50 mg PO BID [facility] Last Admin: 12/12/20 09:48 Dose: 50 mg Documented by: Sodium Chloride () 250 mls @ 15 mls/hr IV .[id number] PRN PRN Reason: Saline Flush Last Admin: 12/11/20 20:50 Dose: 15 mls/hr Documented by: Sodium Chloride () 250 mls @ 15 mls/hr IV .[id number] PRN PRN Reason: Additional IVPB Infusion Last Infusion: 12/10/20 06:21 Dose: Infused Documented by: Piperacillin Sod/Tazobactam (Sod 3.375 gm/ Sodium Chloride) 50 mls @ 12.5 mls/hr IV Q12 [facility] Last Admin: 12/12/20 10:07 Dose: 12.5 mls/hr Documented by: Insulin Glargine (Insulin Glargine 100 Units/Ml Pen) 10 units SC BREAKFAST [facility] Last Admin: 12/12/20 09:57 Dose: 10 units Documented by: Insulin Human Lispro (Insulin Lispro 100 Unit/Ml Insuln.Pen) 0 unit SC TIDCM [facility]; Protocol Last Admin: 12/12/20 13:06 Dose: 2 units Documented by: Insulin Human Lispro (Insulin Lispro 100 Unit/Ml Insuln.Pen) 5 unit SC TIDCM [facility] Last Admin: 12/12/20 13:06 Dose: 5 u Documented by: Lactobacillus Acidophilus (Lactobacillus Acidophilus) 1 tablet PO DAILY [facility] Last Admin: 12/12/20 09:47 Dose: 1 tablet Documented by: Levothyroxine Sodium (Levothyroxine 25 Mcg Tablet) 25 mcg PO DAILY@0600 [facility] Last Admin: 12/12/20 05:47 Dose: 25 mcg Documented by: Lisinopril (Lisinopril 10 Mg Tablet) 10 mg PO DAILY [facility] Last Admin: 12/12/20 09:47 Dose: 10 mg Documented by: Metoprolol Tartrate (Metoprolol Tartrate 25 Mg Tablet) 25 mg PO BID [facility] Last Admin: 12/12/20 09:53 Dose: 25 mg Documented by: Nitroglycerin (Nitroglycerin (Inpatient Use) 0.4 Mg Tab.Subl) 0.4 mg SUBLINGUAL Q5M PRN PRN Reason: chest pain Nystatin (Nystatin Powder 15gm Bottle) 1 applic TOPICAL BID [facility]; Protocol Last Admin: 12/12/20 09:51 Dose: 1 applicatio Documented by: Ondansetron HCl (Ondansetron 4 Mg/2 Ml Vial) 4 mg IV Q8H PRN PRN PRN Reason: NAUSEA/VOMITING Oxycodone HCl (Oxycodone 5 Mg Tablet) 10 mg PO TID PRN PRN PRN Reason: PAIN 1-07/26 Last Admin: 12/12/20 10:07 Dose: 10 mg Documented by: Pantoprazole Sodium (Pantoprazole Sodium 40 Mg Tablet) 40 mg PO DAILY [facility] Last Admin: 12/12/20 09:49 Dose: 40 mg Documented by: Paroxetine HCl (Paroxetine 20 Mg Tablet) 40 mg PO DAILY [facility] Last Admin: 12/12/20 09:47 Dose: 40 mg Documented by: Polysaccharide Iron Complex (Iron Polysaccharide Complex 150 Mg [facility]apsule) [facility] Last Admin: 12/12/20 09:48 Dose: 150 mg Documented by: Pramipexole Dihydrochloride (Pramipexole Di-Hcl 1 Mg Tablet) 1 mg PO QHS [facility] Last Admin: 12/11/20 21:37 Dose: 1 mg Documented by: Sodium Chloride (0.9% Saline Lock 10 Ml Syringe) 10 - 40 ml IV UD PRN PRN Reason: SALINE FLUSH Last Admin: 12/10/20 11:01 Dose: 20 ml Documented by: Medical Necessity - Tobacco Use Smoking Status: Former smoker Assessment/Plan All Active Problems (Last Reviewed 12/10/20 @ 11:[address] Brown Vargas MD) Fracture of right great toe (Acute) Cellulitis of right leg (Acute) 1- CKD stage 3 from DNP Cr is at baseline 1.5 mg/dl. lasix resumed 12/11 Cr is 1.27 mg/dl good UOP No contrast induced nephropathy despite IV contrast exposure 12/10 Continue same dose of lasix Ok to continue ACEI check RFP in am 2- HTN: BP is acceptable continue same BP medications 3- diastolic heart failure: . compensating. Continue lasix 40 mg PO BID On NC 3-4 l/min at home. 4- Right LE cellulitis. Abx as per the primary service s/p CTA of LEs . Podiatric is following Renal team will continue to follow.Please call if any question at [phone] d/w Dr. Elroy Jimenez MD
[2020-12-12 17:30] LABS: Bedside Glucose 177 mg/dL (70-110)
--- NOTE | 2020-12-12 17:37 | NURSING ---
Attempted to call report to Syl GOLDMAN in [facility]CU, she will call back as she is in an isolation room per Rajni.
--- NOTE | 2020-12-12 18:04 | NURSING ---
Report given to Mague GOLDMAN at this time. Pt going into room 8 per Mague.
== END 2020-12-12 18:45 | disposition skilled nursing facility (03) | DRG 603 ==
LOC: ED 15:35 → MS3 17:53
PROVIDERS: Hospitalist; Podiatrist; Emergency Provider Emergency Medicine; PCP Nurse Practitioner; Visit Provider Internal Medicine
DX: L03.115 Cellulitis of right lower limb (principal); I48.20 Chronic atrial fibrillation, unspecified; I13.0 Hypertensive heart and chronic kidney disease with heart failure and stage 1 through stage 4 chronic kidney disease, or unspecified chronic kidney disease; J44.1 Chronic obstructive pulmonary disease with (acute) exacerbation; J44.0 Chronic obstructive pulmonary disease with (acute) lower respiratory infection; I50.32 Chronic diastolic (congestive) heart failure; J96.11 Chronic respiratory failure with hypoxia; S92.421A Displaced fracture of distal phalanx of right great toe, initial encounter for closed fracture; E11.42 Type 2 diabetes mellitus with diabetic polyneuropathy; N18.30 Chronic kidney disease, stage 3 unspecified; B95.2 Enterococcus as the cause of diseases classified elsewhere; L60.1 Onycholysis; I35.0 Nonrheumatic aortic (valve) stenosis; I07.1 Rheumatic tricuspid insufficiency; E11.22 Type 2 diabetes mellitus with diabetic chronic kidney disease; Z87.891 Personal history of nicotine dependence; Z68.36 Body mass index [BMI] 36.0-36.9, adult; Z79.01 Long term (current) use of anticoagulants; Z79.4 Long term (current) use of insulin; Z79.51 Long term (current) use of inhaled steroids; Z79.890 Hormone replacement therapy; Z79.899 Other long term (current) drug therapy; Z83.3 Family history of diabetes mellitus; Z83.2 Family history of diseases of the blood and blood-forming organs and certain disorders involving the immune mechanism; Z82.62 Family history of osteoporosis; Z82.5 Family history of asthma and other chronic lower respiratory diseases; Z82.49 Family history of ischemic heart disease and other diseases of the circulatory system; Z82.3 Family history of stroke; Z80.6 Family history of leukemia; Z80.0 Family history of malignant neoplasm of digestive organs; Z86.718 Personal history of other venous thrombosis and embolism; Z88.8 Allergy status to other drugs, medicaments and biological substances; Z85.820 Personal history of malignant melanoma of skin; Z90.710 Acquired absence of both cervix and uterus; Z95.2 Presence of prosthetic heart valve; Z96.641 Presence of right artificial hip joint; L97.519 Non-pressure chronic ulcer of other part of right foot with unspecified severity; E11.51 Type 2 diabetes mellitus with diabetic peripheral angiopathy without gangrene; E11.621 Type 2 diabetes mellitus with foot ulcer; W22.8XXA Striking against or struck by other objects, initial encounter; E66.9 Obesity, unspecified; E05.20 Thyrotoxicosis with toxic multinodular goiter without thyrotoxic crisis or storm; E78.5 Hyperlipidemia, unspecified; I45.10 Unspecified right bundle-branch block; I27.21 Secondary pulmonary arterial hypertension; I87.2 Venous insufficiency (chronic) (peripheral); I65.22 Occlusion and stenosis of left carotid artery; D64.9 Anemia, unspecified; I70.0 Atherosclerosis of aorta; Z79.82 Long term (current) use of aspirin
CPT/HCPCS: 36415; 71046; 73630; 73718; 75635; 80048; 80069; 80202; 82962; 83036; 83605; 85025; 85652; 86140; 87040; 87070; 87075; 87077; 87186; 87205; 87426; 87640; 93306; 93923; 93970; 94640; 97110; 97162; 97166; 97530; 97535; 97802; 99285; J7030; J7050; Q9957; Q9967; A4216; C8929; J1940

== ENCOUNTER 2020-12-12 18:59 | Inpatient (IN) | payer MEDICARE, MEDICAID, SELFPAY ==
[2020-12-06 19:42] VITALS: BMI 36.6
[2020-12-12 19:57] VITALS: BP 149/46; PULSE 62; RESP 20; TEMP 37.1; O2SAT 94
[2020-12-12 20:11] VITALS: BMI 36.5
--- NOTE | 2020-12-12 20:24 | HP.PCM_ITS ---
Problem List (1) Debility Status: Acute (2) Acute kidney injury Status: Acute (3) Depression Status: Chronic (4) Peripheral arterial occlusive disease Status: Chronic (5) Diabetic polyneuropathy Status: Chronic (6) Atrial fibrillation Status: Chronic (7) Hypertension Status: Chronic (8) Hypokalemia Status: Chronic (9) Osteoporosis Status: Chronic (10) Gastroesophageal reflux disease Status: Chronic (11) Insomnia Status: Chronic (12) Fracture of right great toe Status: Acute (13) Cellulitis of right leg Status: Acute (14) Acute on chronic diastolic CHF (congestive heart failure) Status: Chronic (15) Diabetes Status: Chronic (16) COPD (chronic obstructive pulmonary disease) Status: Chronic (17) Anemia Status: Chronic (18) Left carotid artery stenosis Status: Chronic (19) Hyperlipidemia Status: Chronic Qualifiers: History of Present Illness Date of Admission: 12/12/20 Chief Complaint: Here for rehabilitation, strengthening, prior to discharge home alone. 12/06/2020 The patient is a 75 year old Female with below past medical history presented to [facility] with right great toe injury. 12/06/2020 X-ray right foot 1st distal phalanx fracture, moderately displaced. 12/06/2020 Doppler of legs NEGATIVE DVT. 12/06/2020 ASAD doppler showed severe bilateral lower extremity peripheral arterial occlusive disease. 12/06/2020 MRI right forefoot 1st distal phalanx fracture, NEGATIVE osteomyelitis. Stubbed toe, persistent bleeding, redness going up right leg. Uses motorized wheelchair, able to ambulate at home. Chronic shortness of breath unchanged. Blood cultures sent. Vancomycin, IV Fluids given. 12/06/2020 Admit to Hospital. Vancomycin for cellulitis of right lower extremity. non-weight bearing right lower extremity due to right great toe fracture. 12/06/2020 Podiatry removed right great toenail. 12/10/2020 CTA abdomen/pelvis showed diffuse atherosclerotic disease of abdominal aorta, bilateral lower extremity, but there is evidence of 3 vessel runoff in bilateral lower extremities. 12/10/2020 Echo Normal LV size. Moderate concentric left ventricular hypertrophy. Left ventricular systolic function normal. EF 65%. Pulmonary artery systolic pressure 46mm HG. Vancomycin/Zosyn for right lower extremity cellulitis, cultures growing Serratia, Klebsiella, Enterococcus, Vancomycin stopped, Zosyn dose decreased. Discharge on Linezolid 600MG twice daily, Omnicef 300MG daily x 7 more days. Vascular surgery recommends outpatient follow up bilateral lower extremity PAOD. Acute on chronic diastolic congestive heart failure treated with Lasix 40MG twice daily. Acute kidney injury improved with IV fluids. 12/12/2020 Admit to TCU with debility, here for rehabilitation, strengthening, prior to discharge home alone. Past Medical History Past Medical History (Chronic Problems): Chronic Problems (Last Reviewed 12/10/20 @ 11:[address] Brown Vargas MD) Depression (Chronic) Peripheral arterial occlusive disease (Chronic) Diabetic polyneuropathy (Chronic) Atrial fibrillation (Chronic) Hypertension (Chronic) Hypokalemia (Chronic) Osteoporosis (Chronic) Gastroesophageal reflux disease (Chronic) Insomnia (Chronic) Obesity (Chronic) Acute on chronic diastolic CHF (congestive heart failure) (Chronic) COPD exacerbation (Chronic) Diabetes (Chronic) Toxic multinodular goiter (Chronic) Polyneuropathy due to type 2 diabetes mellitus (Chronic) COPD (chronic obstructive pulmonary disease) (Chronic) Acute on chronic respiratory failure with hypoxia (Chronic) Paroxysmal atrial fibrillation (Chronic) Anemia (Chronic) Non-rheumatic aortic stenosis (Chronic) H/O aortic valve replacement (Chronic 12/03/16) TAVR: 23 mm Guillaume-Sapiens S3 valve 12/03/2016 Chronic diastolic heart failure (Chronic) Left carotid artery stenosis (Chronic) Right bundle branch block (RBBB) (Chronic) Hyperlipidemia (Chronic) Essential (primary) hypertension (Chronic) Medical History: Medical History (Last Reviewed 12/10/20 @ 11:[address] Brown Vargas MD) Paroxysmal atrial fibrillation (Chronic) I48.0 Anemia (Chronic) D64.9 Non-rheumatic aortic stenosis (Chronic) I35.0 Chronic diastolic heart failure (Chronic) I50.32 Left carotid artery stenosis (Chronic) I65.22 Right bundle branch block (RBBB) (Chronic) I45.10 Hyperlipidemia (Chronic) E78.5 Essential (primary) hypertension (Chronic) I10 Type 2 diabetes mellitus E11.9 Anxiety F41.9 Arthritis M19.90 Asthma J45.909 Breast lump N63.0 COPD (chronic obstructive pulmonary disease) J44.9 Carotid artery stenosis I65.29 Carpal tunnel syndrome G56.00 Depression F32.9 Fibromyalgia M79.7 GERD (gastroesophageal reflux disease) K21.9 H/O transfusion of whole blood Z92.89 Hypothyroidism E03.9 IBS (irritable bowel syndrome) K58.9 MTHFR mutation E72.12 Obesity E66.9 Osteoporosis M81.0 RLS (restless legs syndrome) G25.81 Skin cancer C44.90 Tuberculosis A15.9 Secondary pulmonary arterial hypertension I27.21 Thrombocytopenia D69.6 Secondary to sepsis versus heparin-induced thrombocytopenia Non-STEMI (non-ST elevated myocardial infarction) (Inactive) Onset Date: 09/27/19 I21.4 Seasonal allergies J30.2 Allergies ciprofloxacin [From Cipro] Allergy (Verified 12/06/20 14:44) Rash ciprofloxacin HCl [From Cipro] Allergy (Verified 12/06/20 14:44) Rash gabapentin [From Neurontin] Allergy (Verified 12/06/20 14:44) Rash heparin Allergy (Verified 12/06/20 14:44) Low platelets Home Medications: Ambulatory Orders Medication Instructions Recorded Albuterol Aerosols [Ventolin 2.5 mg INHALATION Q4H PRN PRN 09/26/19 Aerosols] Albuterol IH (ProAir) [Proair Hfa] 2 puff INHALATION Q6H PRN PRN 09/26/19 Cyanocobalamin (Vitamin B-12) 1,000 mcg PO DAILY 09/26/19 [Vitamin B-12] Fluticasone 0.05% [Flonase Nasal 2 spray NASAL DAILY 09/26/19 [place]] Fluticasone/Salmeterol [Advair Hfa 2 puff INHALATION BID 09/26/19 115-21 Mcg Inhaler] L.acidoph,Paracasei, B.lactis 1 ea PO DAILY 09/26/19 [Probiotic] Nystatin [Nyamyc] 30 gm TP BID 09/26/19 Paroxetine HCl [Paxil] 40 mg PO DAILY 09/26/19 Ropinirole HCl 2 mg PO BID 09/26/19 Tiotropium [place] [Spiriva] 18 mcg IH DAILY 09/26/19 calcium carbonate 500 mg (1,250 1 tab PO DAILY tab 01/11/20 mg)-vitamin D3 200 unit tablet lisinopril 10 mg tablet 10 mg PO DAILY 05/05/20 potassium chloride 10 mEq 10 meq PO BID tab 05/13/20 tablet,extended release omeprazole 20 mg capsule,delayed 40 mg PO DAILY cap 09/03/20 release nitroglycerin 0.4 mg sublingual 0.4 mg SUBLINGUAL PRN PRN #25 tab 10/30/20 tablet Amiodarone HCl 200 mg PO DAILY 12/12/20 Apixaban [Eliquis] 2.5 mg PO BID 12/12/20 Aspirin E.C. [Ecotrin] 81 mg PO DAILY@0800 12/12/20 Atorvastatin Calcium [Lipitor] 80 mg PO QHS 12/12/20 Cefdinir [Omnicef [equiv]] 300 mg PO Q12H 12/12/20 Denosumab [Prolia] 60 mg SC L0MGTOQR 12/12/20 Furosemide [Lasix] 40 mg PO BID@1000,1800 12/12/20 Insulin Glargine [Lantus SoloStar 15 units SC BREAKFAST 12/12/20 Pen] Insulin Lispro [Humalog KwikPen] 8 unit SC TIDCM 12/12/20 Insulin Lispro [Humalog KwikPen] See Protocol SC TIDCM 12/12/20 Iron Polysaccharide Complex 150 mg PO DAILY #0 12/12/20 [Ferrex 150] Levothyroxine Sodium [Synthroid] 25 mcg PO DAILY 12/12/20 Linezolid 600 mg PO BID 12/12/20 Metoprolol Tartrate 25 mg PO BID 12/12/20 Oxycodone [Oxyir] 5 mg PO TID PRN PRN 2 Days #10 tab 12/12/20 Suvorexant [Belsomra] 20 mg PO QHS #0 12/12/20 Surgical History: Surgical History (Last Reviewed 12/10/20 @ 11:[address] Brown Vargas MD) H/O aortic valve replacement (Chronic) Onset Date: 12/03/16 Z95.2 TAVR: 23 mm Guillaume-Sapiens S3 valve 12/03/2016 H/O: hysterectomy Z98.890, Z90.710 H/O laminectomy Z98.890 History of left heart catheterization Onset Date: 09/03/16 Z98.890 History of tympanoplasty Z98.890 Hx of melanoma excision Z98.890, Z85.820 1997 Hx of rotator cuff surgery Z98.890 JAIME S/P hip replacement Z96.649 S/p bilateral carpal tunnel release Z98.890 Surgical History: appendectomy - Right hip replacement, back surgery, laminectomy, carpal tunnel surgery, right leg hematoma extraction, hysterectomy, rotator cuff repair, total hip arthroplasty - Right., - - Aortic valve replacement, TAVR, Laminectomy, Tympanostomy, Melanoma excision, Right carpal tunnel release. Psychiatric History: Anxiety, Depression [employer]ER History: No pertinent [employer]ER history Lives: Alone Smoking Status: Former smoker Tobacco Use: Non-smoker Alcohol: None Drugs: None - *Family History Maternal Family History: Family History (Last Reviewed 12/06/20 @ 17:[address] Juan Blunt DO) Mother Arthritis Diabetes Hormone deficiency CVA (cerebral vascular accident) Colon cancer Cancer Sister Bleeding disorder CVA (cerebral vascular accident) Colon cancer Daughter Cancer Seizures Father Diabetes Leukemia Grandmother Diabetes Unknown Asthma Heart disease Hypertension High cholesterol Thyroid disorder Osteoporosis Cancer Tuberculosis History Items: No pertinent history Review of Systems Constitutional: Denies: Chills, Fever, Weight Change HEENT: Denies: Head Aches, Sinus Congestion, Sinus Drainage Cardiovascular: Denies: Chest Pain, Palpitations Respiratory: Denies: Cough, Shortness of breath at rest, Sputum production Gastrointestinal: Denies: Abdominal Pain, Nausea, Vomiting Genitourinary: Denies: Dysuria Musculoskeletal: Denies: Joint Pain, Joint Tenderness Skin: Denies: Rash, Wounds Neurological: Denies: Numbness, Tingling, Focal weakness Psychiatric: Denies: Anxiety, Depression, Homicidal Ideations, Suicidal Ideations Hematologic/ Lymphatic: Denies: Easy Bruising, Easy Bleeding VTE Information - Inpt Only VTE Present on Admission: No VTE Mechan Device Prophylaxis: Knee High JENNIFER Hose VTE Pharm Prophylaxis ordered?: No Reason prophylaxis not ordered:: Treatment Not Indicated Patient Problems: Active and Suspected Problems (Last Reviewed 12/10/20 @ 11:[address] Brown Vargas MD) Fracture of right great toe (Acute) Cellulitis of right leg (Acute) Debility (Acute) Acute kidney injury (Acute) - Physical Exam Vitals/I&O's: Vital Signs Temp Pulse Resp BP Pulse Ox 98.7 F 62 20 H 149/46 H 94 12/12/20 19:57 12/12/20 19:57 12/12/20 19:57 12/12/20 19:57 12/12/20 19:57 Oxygen Flow Rate (L/min) 5 Oxygen Delivery Method Nasal Cannula Weight: 82.2 kg Body Mass Index (BMI) 36.5 Finger Stick Blood Glucose 112 General: Alert, Oriented x3, Cooperative HEENT: Atraumatic, PERRLA, EOMI, Normocephalic Neck: Supple, No JVD, Negative Carotid Bruits Lungs: Clear to auscultation, Normal air movement Cardiovascular: Regular rate, No murmurs Abdomen: Bowel Sounds Present, Soft, Non Tender Extremities: No edema, Capillary Refill Less than 3 Seconds, - - Right lower extremity dressed. Skin: No rashes, No breakdown Musculoskeletal: No Tenderness to Palpation of Joints or Extremities Neurological: Cranial nerves II-XII grossly intact Psych/Mental Status: Normal Affect, Appropriate Current Medications Albuterol Sulfate (Albuterol Sulfate 8 Gm Inhaler (60 Puffs)) 2 puff INHALATION Q6H PRN PRN PRN Reason: SOB &/OR WHEEZING Amiodarone HCl (Amiodarone 200 Mg Tablet) 200 mg PO DAILY [facility] Apixaban (Apixaban 2.5 Mg Tablet) 2.5 mg PO BID [facility] Aspirin (Aspirin E.C. 81 Mg Tablet) 81 mg PO DAILY@0800 [facility] Atorvastatin Calcium (Atorvastatin Calcium 80 Mg Tablet) 80 mg PO QHS [facility] Calcium/Vitamin D (Calcium Carb/Vitamin D 1 Tablet Tablet) [facility] Cefdinir (Cefdinir 300 Mg Capsule) 300 mg PO Q12 [facility] Stop: 12/17/20 06:01 Cyanocobalamin (Cyanocobalamin 500 Mcg Tablet) 1,000 mcg PO DAILY [facility] Fluticasone Propionate (Fluticasone 0.05% 1 [place] Nasal.Sry) 2 spray NASAL DAILY [facility] Furosemide (Furosemide 40 Mg Tablet) 40 mg PO BID@1000,1800 [facility] Insulin Glargine (Insulin Glargine 100 Units/Ml Pen) 15 units SC BREAKFAST [facility] Insulin Human Lispro (Insulin Lispro 100 Unit/Ml Insuln.Pen) 8 unit SC TIDCM [facility] Lactobacillus Acidophilus (Lactobacillus Acidophilus) 1 tablet PO DAILY [facility] Levothyroxine Sodium (Levothyroxine 25 Mcg Tablet) 25 mcg PO DAILY [facility] Linezolid (Linezolid 600 Mg Tablet) 600 mg PO BID [facility] Stop: 12/17/20 18:01 Lisinopril (Lisinopril 10 Mg Tablet) 10 mg PO DAILY [facility] Metoprolol Tartrate (Metoprolol Tartrate 25 Mg Tablet) 25 mg PO 1000,2200 [facility] Nitroglycerin (Nitroglycerin (Inpatient Use) 0.4 Mg Tab.Subl) 0.4 mg SUBLINGUAL Q5M PRN PRN Reason: CARDIAC/CHEST PAIN Nystatin (Nystatin Powder 15gm Bottle) 1 applic TOPICAL 0600,2200 [facility]; Protocol Oxycodone HCl (Oxycodone 5 Mg Tablet) 5 mg PO TID PRN PRN PRN Reason: PAIN 1-07/26 Pantoprazole Sodium (Pantoprazole Sodium 40 Mg Tablet) 40 mg PO DAILY [facility] Paroxetine HCl (Paroxetine 20 Mg Tablet) 40 mg PO DAILY [facility] Polysaccharide Iron Complex (Iron Polysaccharide Complex 150 Mg Capsule) 150 mg PO DAILY [facility] Potassium Chloride (Potassium Chloride Oral Tablet 10 Meq) 10 meq PO BIDCM [facility] Pramipexole Dihydrochloride (Pramipexole Di-Hcl 1 Mg Tablet) 1 mg PO BID [facility] Fluticasone/Salmeterol (Fluticasone/Salmeterol 232-14 Inhaler) 1 puff IH Q12 [facility] Umeclidinium [place] (Umeclidinium [place] Inhaler) 1 puff IH DAILY [facility] Zolpidem Tartrate (Zolpidem Tartrate 5 Mg Tablet) 5 mg PO QHS PRN PRN PRN Reason: INSOMNIA Assessment/Plan All Active Problems (Last Reviewed 12/10/20 @ 11:[address] Brown Vargas MD) Fracture of right great toe (Acute) Cellulitis of right leg (Acute) Debility (Acute) Acute kidney injury (Acute) 75 year old female with below past medical history hospitalized for right great toe fracture, right lower extremity cellulitis, complicated peripheral arterial occlusive disease, acute on chronic diastolic congestive heart failure, admitted to TCU with debility, here for rehabilitation, strengthening, prior to discharge home alone. * Debility - PT/OT. * Pain - Tylenol 1000MG Q6H PRN pain (1-5), Oxycodone 5MG Q4H PRN pain (6-10). * Bowel - Miralax 17GM daily, Senna/colace 1 tablet BID, MOM 30ML daily PRN, Dulcolax 10MG PO daily PRN. * Adult immunization - Administer Prevnar 13, Pneumovax 23, Fluzone, COVID19 vaccine as appropriate. * DVT prophylaxis - Not necessary, already anticoagulated. * COPD - Advair 232-14 1 puff Q12H, Incruse 1 puff daily, Albuterol MDI 2 puffs Q6H PRN. * Atrial fibrillation - Metoprolol 25MG BID, Amiodarone 200MG daily, Eliquis 2.5MG BID. * Coronary Artery Disease - Metoprolol 25MG BID, Lisinopril 10MG daily, Aspirin 81MG daily, NTG 0.4MG Q5M PRN. * Hyperlipidemia - High intensity Atorvastatin 80MG QHS. * Calcium deficiency - Calcium D 1 tablet daily. * Right lower extremity cellulitis - Cefdinir 300MG Q12H, Linezolid 600MG BID thru 12/17/2020. * Vitamin B12 deficiency - B12 1000MCG daily. * Allergic Rhinitis - Flonase 2 sprays nasal daily. * Chronic diastolic congestive heart failure - Metoprolol 25MG BID, Lisinopril 10MG daily, Lasix 40MG BID. * Diabetes Mellitus II - Lantus 15 units QAM, Humalog 8 units TIDCM, monitor blood sugars. * Iron deficiency - Ferrex 150MG daily. * GI prophylaxis - Lactobacillus 1 tablet daily. * Hypothyroidism - Levothyroxine 25MCG daily. * Tinea Corporis - Nystatin powder topical BID. * GERD - Pantoprazole 40MG daily. * Depression - Paroxetine 40MG daily. * Hypokalemia - K-Dur 10MEQ BID. * Restless leg syndrome - Mirapex 1MG BID. * Insomnia - Zolpidem 5MG QHS PRN.
[2020-12-12 21:36] LABS: Bedside Glucose 118 mg/dL (70-110)
[2020-12-12] MEDS: oxyCODONE 5 MG Tablet PO (22:18)
[2020-12-12] MEDS: Cefdinir 300 MG Capsule PO (22:19)
[2020-12-12 22:20] VITALS: BP 132/50; PULSE 61
[2020-12-12] MEDS: Metoprolol Tartrate 25 MG Tablet PO (22:20)
[2020-12-12] MEDS: Atorvastatin Calcium 80 MG Tablet PO (22:20)
[2020-12-12 22:25] VITALS: BMI 36.5
[2020-12-13] MEDS: Nystatin Powder 15gm Bottle 1 APPLIC TOPICAL ×3 (00:07→21:06)
[2020-12-13] MEDS: Albuterol Sulfate 8 gm Inhaler (60 puffs) 2 PUFF INHALATION (01:09)
[2020-12-13 05:53] VITALS: BP 144/64; PULSE 60; RESP 18; TEMP 37.3; O2SAT 96
[2020-12-13] MEDS: Menthol/Lanolin/Calamine/Znox 113 GM Tube 1 APPLIC TOPICAL ×2 (05:56→21:19)
[2020-12-13] MEDS: APIXABAN 2.5 MG TABLET PO ×2 (05:56→17:43)
[2020-12-13] MEDS: Cefdinir 300 MG Capsule PO ×2 (05:56→17:47)
[2020-12-13] MEDS: Levothyroxine 25 MCG TABLET PO (05:57)
[2020-12-13] MEDS: Linezolid 600 MG Tablet PO ×2 (05:57→17:46)
[2020-12-13] MEDS: Lisinopril 10 MG Tablet PO (05:57)
[2020-12-13] MEDS: Pramipexole Di-HCl 1 MG Tablet PO ×2 (05:57→17:45)
[2020-12-13] MEDS: Pantoprazole Sodium 40 MG Tablet PO (05:58)
[2020-12-13] MEDS: Amiodarone 200 MG Tablet PO (05:58)
[2020-12-13] MEDS: Iron Polysaccharide Complex 150 MG CAPSULE PO (05:58)
[2020-12-13] MEDS: Cyanocobalamin 500 MCG Tablet 1000 MCG PO (05:58)
[2020-12-13] MEDS: Fluticasone/Salmeterol 232-14 Inhaler 1 PUFF IH ×2 (06:00→17:47)
[2020-12-13] MEDS: Umeclidinium Bromide Inhaler 1 PUFF IH (06:02)
[2020-12-13] MEDS: Fluticasone 0.05% 1 SPRAY NASAL.SRY 2 SPRAY NASAL (06:02)
[2020-12-13] MEDS: Glucerna Shake 120 ML LIQUID PO ×3 (06:05→17:42)
[2020-12-13 06:16] LABS: Bedside Glucose 197 mg/dL (70-110)
[2020-12-13 07:28] LABS: Absolute Lymphocyte Count 0.77 X10^3/uL (0.83-4.51); Absolute Neutrophil Count 4.2 X10^3/uL (2.0-7.7); Basophil# 0.03 X10^3/uL; Basophil% 0.5 % (0-1); Eosinophil# 0.08 X10^3/uL; Eosinophils% 1.4 % (0-5); Hematocrit 34.8 % (37-47); Hemoglobin 9.8 g/dL (12.0-15.0); Lymphocyte # 0.77 X10^3/ul (4.0); Lymphocyte % 13.5 % (19-41); Mean Corp Hgb Conc 28.2 g/dL (32-36); Mean Corpuscular Volume 95.9 fL (81-99); Mean Platelet Vol. 12.5 fl (6.2-12.0); Monocyte# 0.62 X10^3/uL; Monocyte% 10.9 % (0-10); NRBC Flagged by Analyzer 0 % (0-5); Neutrophil # 4.17 X10^3/uL (2.7-7.7); Neutrophil % 73.3 % (47-70); POSITIVE MORPHOLOGY YES; Platelet Count 155 K/mm3 (150-450); RBC Distribution Width CV 22.9 % (11.6-14.6); RBC Distribution Width SD 79.4 fl (35.1-43.9); Red Blood Count 3.63 M/mm3 (4.2-5.4); White Blood Count 5.7 K/mm3 (4.4-11.0)
[2020-12-13 07:29] LABS: Differential Indicated SCAN CRITERIA MET
[2020-12-13 07:46] LABS: Anion Gap 6 (5-15); BUN 27 mg/dL (7-18); BUN/Creat Ratio 22.1 RATIO (10-20); Calcium,Total 8.2 mg/dL (8.5-10.1); Chloride 104 mmol/L (98-107); Creatinine, Serum 1.22 mg/dL (0.55-1.02); EST Glomerular Filtration Rate 46 mL/min (>60); Est Glom Filt Rate - Afr Amer 55 mL/min (>60); Glucose 200 mg/dL (74-106); Potassium 3.7 mmol/L (3.5-5.1); Sodium Level 140 mmol/L (136-145)
[2020-12-13 08:01] LABS: Anisocytosis 1+
[2020-12-13] MEDS: Furosemide 40 MG Tablet PO ×2 (08:34→17:43)
[2020-12-13] MEDS: Insulin Lispro 100 UNIT/ML INSULN.PEN 8 UNIT SC ×3 (08:35→17:42)
[2020-12-13] MEDS: Aspirin E.C. 81 MG Tablet PO (08:35)
[2020-12-13 08:36] VITALS: PULSE 76
[2020-12-13] MEDS: Metoprolol Tartrate 25 MG Tablet PO (08:36)
[2020-12-13] MEDS: Potassium Chloride Oral Tablet 10 MEQ PO ×2 (08:37→17:43)
[2020-12-13] MEDS: Calcium Carb/Vitamin D 1 TABLET Tablet PO (08:38)
[2020-12-13] MEDS: oxyCODONE 5 MG Tablet PO ×2 (08:44→14:57)
[2020-12-13 11:01] LABS: Bedside Glucose 235 mg/dL (70-110)
[2020-12-13 13:24] VITALS: BP 141/55; PULSE 54; RESP 15; TEMP 36.8; O2SAT 94
[2020-12-13 16:21] LABS: Bedside Glucose 126 mg/dL (70-110)
[2020-12-13] MEDS: Atorvastatin Calcium 80 MG Tablet PO (21:05)
[2020-12-13 21:20] VITALS: BP 131/59; PULSE 57
[2020-12-13 21:41] LABS: Bedside Glucose 215 mg/dL (70-110)
[2020-12-14] MEDS: oxyCODONE 5 MG Tablet PO ×3 (02:19→21:14)
[2020-12-14 05:06] VITALS: BP 158/64; PULSE 61; RESP 16; TEMP 37.2; O2SAT 94
[2020-12-14] MEDS: Pantoprazole Sodium 40 MG Tablet PO (05:08)
[2020-12-14] MEDS: Pramipexole Di-HCl 1 MG Tablet PO ×2 (05:08→17:39)
[2020-12-14] MEDS: Lisinopril 10 MG Tablet PO (05:08)
[2020-12-14] MEDS: Linezolid 600 MG Tablet PO ×2 (05:08→17:39)
[2020-12-14] MEDS: Amiodarone 200 MG Tablet PO (05:08)
[2020-12-14] MEDS: Levothyroxine 25 MCG TABLET PO (05:08)
[2020-12-14] MEDS: Cefdinir 300 MG Capsule PO ×2 (05:08→17:39)
[2020-12-14] MEDS: Iron Polysaccharide Complex 150 MG CAPSULE PO (05:09)
[2020-12-14] MEDS: APIXABAN 2.5 MG TABLET PO ×2 (05:09→17:39)
[2020-12-14] MEDS: Glucerna Shake 120 ML LIQUID PO ×4 (05:11→21:00)
[2020-12-14] MEDS: Fluticasone 0.05% 1 SPRAY NASAL.SRY 2 SPRAY NASAL (05:13)
[2020-12-14] MEDS: Umeclidinium Bromide Inhaler 1 PUFF IH (05:14)
[2020-12-14] MEDS: Fluticasone/Salmeterol 232-14 Inhaler 1 PUFF IH ×2 (05:14→17:40)
[2020-12-14] MEDS: Menthol/Lanolin/Calamine/Znox 113 GM Tube 1 APPLIC TOPICAL ×2 (05:14→21:17)
[2020-12-14] MEDS: Nystatin Powder 15gm Bottle 1 APPLIC TOPICAL ×2 (05:19→22:00)
[2020-12-14] MEDS: Cyanocobalamin 500 MCG Tablet 1000 MCG PO (05:21)
[2020-12-14 06:16] LABS: Bedside Glucose 197 mg/dL (70-110)
[2020-12-14] MEDS: Insulin Lispro 100 UNIT/ML INSULN.PEN 8 UNIT SC ×2 (08:25→11:51)
[2020-12-14] MEDS: Aspirin E.C. 81 MG Tablet PO (08:25)
[2020-12-14] MEDS: Calcium Carb/Vitamin D 1 TABLET Tablet PO (08:25)
[2020-12-14] MEDS: Potassium Chloride Oral Tablet 10 MEQ PO ×2 (08:25→17:39)
[2020-12-14] MEDS: Furosemide 40 MG Tablet PO ×2 (08:26→17:39)
[2020-12-14 08:27] VITALS: PULSE 61
[2020-12-14] MEDS: Metoprolol Tartrate 25 MG Tablet PO ×2 (08:27→21:09)
[2020-12-14 10:56] LABS: Bedside Glucose 210 mg/dL (70-110)
[2020-12-14 11:11] VITALS: O2SAT 94
--- NOTE | 2020-12-14 15:20 | NURSING ---
pt reports had TB in past, dr gamble updated, no new orders, pt had CXR 10/12 no TB.
[2020-12-14 15:44] VITALS: BP 143/66; PULSE 55; RESP 16; TEMP 37.3; O2SAT 94
[2020-12-14 16:45] LABS: Bedside Glucose 94 mg/dL (70-110)
[2020-12-14] MEDS: Senna/Docusate Sodium 1 Tablet PO (17:39)
[2020-12-14] MEDS: Atorvastatin Calcium 80 MG Tablet PO (20:59)
[2020-12-14 21:09] VITALS: BP 153/56; PULSE 64
[2020-12-14 21:31] LABS: Bedside Glucose 203 mg/dL (70-110)
[2020-12-15 04:48] VITALS: BP 161/58; PULSE 68; RESP 16; TEMP 36.9; O2SAT 88
[2020-12-15] MEDS: Iron Polysaccharide Complex 150 MG CAPSULE PO (04:51)
[2020-12-15] MEDS: Pramipexole Di-HCl 1 MG Tablet PO ×2 (04:52→18:20)
[2020-12-15] MEDS: Lisinopril 10 MG Tablet PO (04:52)
[2020-12-15] MEDS: Pantoprazole Sodium 40 MG Tablet PO (04:52)
[2020-12-15] MEDS: Linezolid 600 MG Tablet PO ×2 (04:52→18:20)
[2020-12-15] MEDS: Cefdinir 300 MG Capsule PO ×2 (04:52→18:20)
[2020-12-15] MEDS: Senna/Docusate Sodium 1 Tablet PO ×2 (04:52→18:19)
[2020-12-15] MEDS: APIXABAN 2.5 MG TABLET PO ×2 (04:52→18:20)
[2020-12-15] MEDS: Menthol/Lanolin/Calamine/Znox 113 GM Tube 1 APPLIC TOPICAL ×2 (04:53→20:43)
[2020-12-15] MEDS: Amiodarone 200 MG Tablet PO (04:53)
[2020-12-15] MEDS: Fluticasone 0.05% 1 SPRAY NASAL.SRY 2 SPRAY NASAL (04:53)
[2020-12-15] MEDS: Fluticasone/Salmeterol 232-14 Inhaler 1 PUFF IH ×2 (04:54→18:21)
[2020-12-15] MEDS: Umeclidinium Bromide Inhaler 1 PUFF IH (04:54)
[2020-12-15] MEDS: Cyanocobalamin 500 MCG Tablet 1000 MCG PO (04:55)
[2020-12-15] MEDS: Nystatin Powder 15gm Bottle 1 APPLIC TOPICAL ×2 (04:55→20:44)
[2020-12-15] MEDS: Levothyroxine 25 MCG TABLET PO (04:59)
[2020-12-15] MEDS: Glucerna Shake 120 ML LIQUID PO ×4 (04:59→20:43)
[2020-12-15 06:21] LABS: Bedside Glucose 219 mg/dL (70-110)
[2020-12-15 07:03] VITALS: O2SAT 93
[2020-12-15] MEDS: Insulin Lispro 100 UNIT/ML INSULN.PEN 8 UNIT SC ×2 (08:24→13:18)
[2020-12-15] MEDS: Aspirin E.C. 81 MG Tablet PO (08:24)
[2020-12-15] MEDS: Potassium Chloride Oral Tablet 10 MEQ PO ×2 (08:24→18:20)
[2020-12-15] MEDS: Calcium Carb/Vitamin D 1 TABLET Tablet PO (08:25)
[2020-12-15 10:02] VITALS: PULSE 68
[2020-12-15] MEDS: Metoprolol Tartrate 25 MG Tablet PO ×2 (10:02→20:45)
[2020-12-15] MEDS: Furosemide 40 MG Tablet PO ×2 (10:05→18:20)
--- NOTE | 2020-12-15 10:26 | PCM.PN.RX ---
<Tamia Johns M - Last Filed: 12/15/20 10:26> Progress Note - Pharmacy Subjective: TCU ADMISSION Objective: Allergies ciprofloxacin [From Cipro] Allergy (Verified 12/06/20 14:44) Rash ciprofloxacin HCl [From Cipro] Allergy (Verified 12/06/20 14:44) Rash gabapentin [From Neurontin] Allergy (Verified 12/06/20 14:44) Rash heparin Allergy (Verified 12/06/20 14:44) Low platelets tuberculin, purified protein deriva Adverse Reaction (Verified 12/14/20 15:20) Other Current Medications Generic Name Dose Route Start Last Admin Trade Name Freq PRN Reason Stop Dose Admin Acetaminophen 1,000 mg 12/12/20 21:00 Acetaminophen 500 Mg Tablet PO Q6H PRN PRN Pain Score 1-5 Albuterol Sulfate 2 puff 12/12/20 20:18 12/13/20 01:09 Albuterol Sulfate 8 Gm Inhaler (60 Puffs) INHALATION 2 puff Q6H PRN PRN Administration SOB &/OR WHEEZING Amiodarone HCl 200 mg 12/13/20 06:00 12/15/20 04:53 Amiodarone 200 Mg Tablet PO 200 mg DAILY [facility] Administration Apixaban 2.5 mg 12/13/20 06:00 12/15/20 04:52 Apixaban 2.5 Mg Tablet PO 2.5 mg BID DI[facility] Administration Aspirin 81 mg 12/13/20 08:00 12/15/20 08:24 Aspirin E.C. 81 Mg Tablet PO 81 mg DAILY@0800 DIAMOND Administration Atorvastatin Calcium 80 mg 12/12/20 22:00 12/14/20 20:59 Atorvastatin Calcium 80 Mg Tablet PO 80 mg QHS [facility] Administration Bisacodyl 10 mg 12/12/20 21:02 Bisacodyl 5 Mg Tablet PO DAILY PRN Constipation Calamine/Phenol 1 applic 12/13/20 06:00 12/15/20 04:53 Menthol/Lanolin/Calamine/Znox 113 Gm Tube TOPICAL 1 applicatio 0600,2200 DIAMOND Administration Protocol Calcium/Vitamin D 1 tablet 12/13/20 08:00 12/15/20 08:25 Calcium Carb/Vitamin D 1 Tablet Tablet PO 1 tablet DAILYCM DI[facility] Administration Cefdinir 300 mg 12/12/20 20:00 12/15/20 04:52 Cefdinir 300 Mg Capsule PO 12/17/20 06:01 300 mg Q12 [facility] Administration Cyanocobalamin 1,000 mcg 12/13/20 06:00 12/15/20 04:55 Cyanocobalamin 500 Mcg Tablet PO 1,000 mcg DAILY DI[facility] Administration Emollient Ointment 1 applic 12/13/20 22:00 12/14/20 21:17 Emollient Combination No.72 500 Ml Lotion TOPICAL 1 applicatio HS [facility] Administration Protocol Fluticasone Propionate 2 spray 12/13/20 06:00 12/15/20 04:53 Fluticasone 0.05% 1 [place] Nasal.Sry NASAL 2 spray DAILY [facility] Administration Furosemide 40 mg 12/13/20 10:00 12/15/20 10:05 Furosemide 40 Mg Tablet PO 40 mg BID@1000,1800 [facility] Administration Insulin Glargine 15 units 12/13/20 08:00 12/15/20 08:25 Insulin Glargine 100 Units/Ml Pen SC 15 u BREAKFAST [facility] Administration Insulin Human Lispro 8 unit 12/13/20 07:45 12/15/20 08:24 Insulin Lispro 100 Unit/Ml Insuln.Pen SC 8 u TIDCM [facility] Administration Lactobacillus Acidophilus 1 tablet 12/13/20 06:00 12/15/20 04:52 Lactobacillus Acidophilus PO 1 tablet DAILY [facility] Administration Levothyroxine Sodium 25 mcg 12/13/20 06:00 12/15/20 04:59 Levothyroxine 25 Mcg Tablet PO 25 mcg DAILY [facility] Administration Linezolid 600 mg 12/13/20 06:00 12/15/20 04:52 Linezolid 600 Mg Tablet PO 12/17/20 18:01 600 mg BID [facility] Administration Lisinopril 10 mg 12/13/20 06:00 12/15/20 04:52 Lisinopril 10 Mg Tablet PO 10 mg DAILY [facility] Administration Magnesium Hydroxide 30 ml 12/12/20 21:01 Magnesium Hydroxide 30 Ml Udc PO DAILY PRN Constipation Metoprolol Tartrate 25 mg 12/12/20 22:00 12/15/20 10:02 Metoprolol Tartrate 25 Mg Tablet PO 25 mg 1000,2200 [facility] Administration Nitroglycerin 0.4 mg 12/12/20 20:15 Nitroglycerin (Inpatient Use) 0.4 Mg Tab.Subl SUBLINGUAL Q5M PRN CARDIAC/CHEST PAIN Nutritional Formula (Lactose Free) 120 ml 12/13/20 06:00 12/15/20 04:59 Glucerna Shake 120 Ml Liquid PO 120 ml 4X/DAY [facility] Administration Nystatin 1 applic 12/12/20 22:00 12/15/20 04:55 Nystatin Powder 15gm Bottle TOPICAL 1 applicatio 0600,2200 DIAMOND Administration Protocol Oxycodone HCl 5 mg 12/12/20 21:03 12/14/20 21:14 Oxycodone 5 Mg Tablet PO 5 mg Q4H PRN PRN Administration Pain Score 6-10 Pantoprazole Sodium 40 mg 12/13/20 06:00 12/15/20 04:52 Pantoprazole Sodium 40 Mg Tablet PO 40 mg DAILY [facility] Administration Paroxetine HCl 40 mg 12/13/20 06:00 12/13/20 17:40 Paroxetine 20 Mg Tablet PO Not Given DAILY [facility] Polyethylene Glycol 17 gm 12/13/20 06:00 12/15/20 04:55 Polyethylene Glycol 3350 17 Gm Packet PO Not Given DAILY [facility] Polysaccharide Iron Complex 150 mg 12/13/20 06:00 12/15/20 04:51 Iron Polysaccharide Complex 150 Mg Capsule PO 150 mg DAILY [facility] Administration Potassium Chloride 10 meq 12/13/20 08:00 12/15/20 08:24 Potassium Chloride Oral Tablet 10 Meq PO 10 meq BIDCM [facility] Administration Pramipexole Dihydrochloride 1 mg 12/13/20 06:00 12/15/20 04:52 Pramipexole Di-Hcl 1 Mg Tablet PO 1 mg BID [facility] Administration Fluticasone/Salmeterol 1 puff 12/13/20 06:00 12/15/20 04:54 Fluticasone/Salmeterol 232-14 Inhaler IH 1 puff Q12 [facility] Administration Senna/Docusate Sodium 1 tablet 12/13/20 06:00 12/15/20 04:52 Senna/Docusate Sodium 1 Tablet PO 1 tablet BID [facility] Administration Sodium Chloride 10 - 40 ml 12/12/20 22:25 0.9% Saline Lock 10 Ml Syringe IV UD PRN SALINE FLUSH Tuberculin PPD 5 tu 12/21/20 10:00 Tuberculin,Purif.Prot.Deriv. 50 Tu/Ml Vial ID 12/21/20 10:01 X1 ONE Umeclidinium P[place]itt 1 puff 12/13/20 06:00 12/15/20 04:54 Umeclidinium [place] Inhaler IH 1 puff DAILY [facility] Administration Zolpidem Tartrate 5 mg 12/12/20 20:23 Zolpidem Tartrate 5 Mg Tablet PO QHS PRN PRN INSOMNIA Problem List (Last Reviewed 12/10/20 @ 11:[address] Brown Vargas MD) Fracture of right great toe (Acute) Cellulitis of right leg (Acute) Debility (Acute) Acute kidney injury (Acute) Depression (Chronic) Peripheral arterial occlusive disease (Chronic) Diabetic polyneuropathy (Chronic) Atrial fibrillation (Chronic) Hypertension (Chronic) Hypokalemia (Chronic) Osteoporosis (Chronic) Gastroesophageal reflux disease (Chronic) Insomnia (Chronic) Acute on chronic diastolic CHF (congestive heart failure) (Chronic) Diabetes (Chronic) COPD (chronic obstructive pulmonary disease) (Chronic) Anemia (Chronic) Left carotid artery stenosis (Chronic) Hyperlipidemia (Chronic) Vital Signs Temp Pulse Resp BP Pulse Ox 98.5 F 68 16 161/58 H 93 12/15/20 04:48 12/15/20 10:02 12/15/20 04:48 12/15/20 04:48 12/15/20 07:03 Oxygen Flow Rate (L/min) 6 Oxygen Delivery Method Nasal Cannula Weight: 82.2 kg Body Mass Index (BMI) 36.5 Finger Stick Blood Glucose 112 Sodium 140 mmol/L (136-145) 12/13/20 06:52 Potassium 3.7 mmol/L (3.5-5.1) 12/13/20 06:52 Chloride 104 mmol/L (98-107) 12/13/20 06:52 Carbon Dioxide 30.0 mmol/L (21.0-32.0) 12/13/20 06:52 Anion Gap 6 (5-15) 12/13/20 06:52 BUN 27 mg/dL (7-18) H 12/13/20 06:52 Creatinine 1.22 mg/dL (0.55-1.02) H 12/13/20 06:52 Est GFR (MDRD) Af Amer 55 mL/min (>60) L 12/13/20 06:52 Est GFR (MDRD) Non-Af 46 mL/min (>60) L 12/13/20 06:52 BUN/Creatinine Ratio 22.1 RATIO (10-20) H 12/13/20 06:52 Glucose 200 mg/dL (74-106) H 12/13/20 06:52 Assessment/Plan: 1. Pain: Tylenol 1000mg PO Q6h PRN Pain 1-5, Oxycodone 5mg PO Q4h PRN Pain 6-10. Please continue to monitor for increased/decreased pain, PRN medication usage. 2. Atrial Fibrilliation/CHF/ CAD: Amiodarone 200mg PO Daily, Eliquis 2.5mg PO BID, Aspirin 81mg PO Daily, Atorvastatin 80mg PO QHS, Lasix 40mg PO BID, Lisinopril 10mg PO daily, Lopressor 25mg PO BID, Nitrostat 0.4mg SL Q5m PRN, KCl 10mEq PO BID. Please continue to monitor BP, pulse, electrolytes, I/O's, S/S bleeding/bruising. 3. COPD: Airduo 1 puff Q12h, Incruse 1 puff Daily, Proair 2 puff Q6h PRN. Please continue to monitor for S/S exacerbation, breathing status, HR, PRN medication use. 4. Cellulitis of RLE: Omnicef 300mg PO Q12h thru 12/17/20, Linezolid 600mg PO BID thru 12/17/20. Please continue to monitor for resolution of infection, nausea, stomach upset. NOTE: Pt's Paxil ON HOLD until therapy is complete d/t contraindication with concomitant Zyvox usage. 5. Diabetes Type II: Lantus 15 unit SC Daily, Humalog 8 unit SC TIDCM. Please continue to monitor BG, A1C, S/S hypoglycemia. 6. Hypothyroidism: Synthroid 25mcg PO daily. Please continue to monitor thyroid function tests as clinically indicated, S/S hypothyroidism. 7. GERD: Protonix 40mg PO Daily. Please continue to monitor for S/S GERD exacerbation/flare-ups. Can also encourage nonpharmacologic options to help decrease exacerbations as well. 8. Allergic Rhinitis: Flonase 2 spray nasally daily. Please continue to monitor for medication effectiveness, decrease in symptoms. 9. Restless Leg Syndrome: Mirapex 1mg PO BID. Please continue to monitor for improvement in symptoms. 10. General Wellness: Os-Kaz + D 1 tab PO Daily, Vitamin B12 1000mcg PO Daily, Acidophilus 1 tab PO Daily, Ferrex 150mg PO Daily. Please continue to monitor labs as clinically appropriate. Psychotropic Medications: *11. Depression: Paxil 40mg PO Daily. Currently on hold d/t Zyvoxx therapy. Please consider a GDR by 06/2021 if clinically indicated, thank you. 12. Insomnia: Ambien 5mg PO QHS PRN. Please continue to monitor PRN usage, medication effectiveness. Unnecessary Medications: None Bowel Regimen: Miralax 17g PO Daily, Senna/Docusate1 tab PO BID, Dulcolax 10mg PO daily PRN, MOM 30mL PO Daily PRN. Please continue to monitor for increased/decreased S/S constipation and/or diarrhea. Date of Note:: 12/15/20 - Provider Comments Provider responsibility: Provider responsible to enter orders to implement recommendations <Isaias Connor Chi - Last Filed: 12/15/20 16:55> Progress Note - Pharmacy Subjective: [] Objective: Allergies ciprofloxacin [From Cipro] Allergy (Verified 12/06/20 14:44) Rash ciprofloxacin HCl [From Cipro] Allergy (Verified 12/06/20 14:44) Rash gabapentin [From Neurontin] Allergy (Verified 12/06/20 14:44) Rash heparin Allergy (Verified 12/06/20 14:44) Low platelets tuberculin, purified protein deriva Adverse Reaction (Verified 12/14/20 15:20) Other Current Medications Generic Name Dose Route Start Last Admin Trade Name Freq PRN Reason Stop Dose Admin Acetaminophen 1,000 mg 12/12/20 21:00 Acetaminophen 500 Mg Tablet PO Q6H PRN PRN Pain Score 1-5 Albuterol Sulfate 2 puff 12/12/20 20:18 12/13/20 01:09 Albuterol Sulfate 8 Gm Inhaler (60 Puffs) INHALATION 2 puff Q6H PRN PRN Administration SOB &/OR WHEEZING Amiodarone HCl 200 mg 12/13/20 06:00 12/15/20 04:53 Amiodarone 200 Mg Tablet PO 200 mg DAILY [facility] Administration Apixaban 2.5 mg 12/13/20 06:00 12/15/20 04:52 Apixaban 2.5 Mg Tablet PO 2.5 mg BID [facility] Administration Aspirin 81 mg 12/13/20 08:00 12/15/20 08:24 Aspirin E.C. 81 Mg Tablet PO 81 mg DAILY@0800 [facility] Administration Atorvastatin Calcium 80 mg 12/12/20 22:00 12/14/20 20:59 Atorvastatin Calcium 80 Mg Tablet PO 80 mg QHS [facility] Administration Bisacodyl 10 mg 12/12/20 21:02 Bisacodyl 5 Mg Tablet PO DAILY PRN Constipation Calamine/Phenol 1 applic 12/13/20 06:00 12/15/20 04:53 Menthol/Lanolin/Calamine/Znox 113 Gm Tube TOPICAL 1 applicatio 0600,2200 [facility] Administration Protocol Calcium/Vitamin D 1 tablet 12/13/20 08:00 12/15/20 08:25 Calcium Carb/Vitamin D 1 Tablet Tablet PO 1 tablet DAILYCM [facility] Administration Cefdinir 300 mg 12/12/20 20:00 12/15/20 04:52 Cefdinir 300 Mg Capsule PO 12/17/20 06:01 300 mg Q12 [facility] Administration Cyanocobalamin 1,000 mcg 12/13/20 06:00 12/15/20 04:55 Cyanocobalamin 500 Mcg Tablet PO 1,000 mcg DAILY [facility] Administration Emollient Ointment 1 applic 12/13/20 22:00 12/14/20 21:17 Emollient Combination No.72 500 Ml Lotion TOPICAL 1 applicatio HS [facility] Administration Protocol Fluticasone Propionate 2 spray 12/13/20 06:00 12/15/20 04:53 Fluticasone 0.05% 1 [place] Nasal.Sry NASAL 2 spray DAILY [facility] Administration Furosemide 40 mg 12/13/20 10:00 12/15/20 10:05 Furosemide 40 Mg Tablet PO 40 mg BID@1000,1800 [facility] Administration Insulin Glargine 15 units 12/13/20 08:00 12/15/20 08:25 Insulin Glargine 100 Units/Ml Pen SC 15 u BREAKFAST [facility] Administration Insulin Human Lispro 8 unit 12/13/20 07:45 12/15/20 13:18 Insulin Lispro 100 Unit/Ml Insuln.Pen SC 8 u TIDCM [facility] Administration Lactobacillus Acidophilus 1 tablet 12/13/20 06:00 12/15/20 04:52 Lactobacillus Acidophilus PO 1 tablet DAILY [facility] Administration Levothyroxine Sodium 25 mcg 12/13/20 06:00 12/15/20 04:59 Levothyroxine 25 Mcg Tablet PO 25 mcg DAILY [facility] Administration Linezolid 600 mg 12/13/20 06:00 12/15/20 04:52 Linezolid 600 Mg Tablet PO 12/17/20 18:01 600 mg BID [facility] Administration Lisinopril 10 mg 12/13/20 06:00 12/15/20 04:52 Lisinopril 10 Mg Tablet PO 10 mg DAILY [facility] Administration Magnesium Hydroxide 30 ml 12/12/20 21:01 Magnesium Hydroxide 30 Ml Udc PO DAILY PRN Constipation Metoprolol Tartrate 25 mg 12/12/20 22:00 12/15/20 10:02 Metoprolol Tartrate 25 Mg Tablet PO 25 mg 1000,2200 [facility] Administration Nitroglycerin 0.4 mg 12/12/20 20:15 Nitroglycerin (Inpatient Use) 0.4 Mg Tab.Subl SUBLINGUAL Q5M PRN CARDIAC/CHEST PAIN Nutritional Formula (Lactose Free) 120 ml 12/13/20 06:00 12/15/20 11:20 Glucerna Shake 120 Ml Liquid PO 120 ml 4X/DAY [facility] Administration Nystatin 1 applic 12/12/20 22:00 12/15/20 04:55 Nystatin Powder 15gm Bottle TOPICAL 1 applicatio 0600,2200 [facility] Administration Protocol Oxycodone HCl 5 mg 12/12/20 21:03 12/14/20 21:14 Oxycodone 5 Mg Tablet PO 5 mg Q4H PRN PRN Administration Pain Score 6-10 Pantoprazole Sodium 40 mg 12/13/20 06:00 12/15/20 04:52 Pantoprazole Sodium 40 Mg Tablet PO 40 mg DAILY [facility] Administration Paroxetine HCl 40 mg 12/13/20 06:00 12/13/20 17:40 Paroxetine 20 Mg Tablet PO Not Given DAILY [facility] Polyethylene Glycol 17 gm 12/13/20 06:00 12/15/20 04:55 Polyethylene Glycol 3350 17 Gm Packet PO Not Given DAILY [facility] Polysaccharide Iron Complex 150 mg 12/13/20 06:00 12/15/20 04:51 Iron Polysaccharide Complex 150 Mg Capsule PO 150 mg DAILY [facility] Administration Potassium Chloride 10 meq 12/13/20 08:00 12/15/20 08:24 Potassium Chloride Oral Tablet 10 Meq PO 10 meq BIDCM [facility] Administration Pramipexole Dihydrochloride 1 mg 12/13/20 06:00 12/15/20 04:52 Pramipexole Di-Hcl 1 Mg Tablet PO 1 mg BID [facility] Administration Fluticasone/Salmeterol 1 puff 12/13/20 06:00 12/15/20 04:54 Fluticasone/Salmeterol 232-14 Inhaler IH 1 puff Q12 [facility] Administration Senna/Docusate Sodium 1 tablet 12/13/20 06:00 12/15/20 04:52 Senna/Docusate Sodium 1 Tablet PO 1 tablet BID [facility] Administration Sodium Chloride 10 - 40 ml 12/12/20 22:25 0.9% Saline Lock 10 Ml Syringe IV UD PRN SALINE FLUSH Tuberculin PPD 5 tu 12/21/20 10:00 Tuberculin,Purif.Prot.Deriv. 50 Tu/Ml Vial ID 12/21/20 10:01 X1 ONE Umeclidinium [place] 1 puff 12/13/20 06:00 12/15/20 04:54 Umeclidinium [place] Inhaler IH 1 puff DAILY [facility] Administration Zolpidem Tartrate 5 mg 12/12/20 20:23 Zolpidem Tartrate 5 Mg Tablet PO QHS PRN PRN INSOMNIA Problem List (Last Reviewed 12/10/20 @ 11:[address] Brown Vargas MD) Fracture of right great toe (Acute) Cellulitis of right leg (Acute) Debility (Acute) Acute kidney injury (Acute) Depression (Chronic) Peripheral arterial occlusive disease (Chronic) Diabetic polyneuropathy (Chronic) Atrial fibrillation (Chronic) Hypertension (Chronic) Hypokalemia (Chronic) Osteoporosis (Chronic) Gastroesophageal reflux disease (Chronic) Insomnia (Chronic) Acute on chronic diastolic CHF (congestive heart failure) (Chronic) Diabetes (Chronic) COPD (chronic obstructive pulmonary disease) (Chronic) Anemia (Chronic) Left carotid artery stenosis (Chronic) Hyperlipidemia (Chronic) Vital Signs Temp Pulse Resp BP Pulse Ox 98.5 F 55 L 20 H 141/44 H 92 12/15/20 14:32 12/15/20 14:32 12/15/20 14:32 12/15/20 14:32 12/15/20 14:32 Oxygen Flow Rate (L/min) 6 Oxygen Delivery Method Nasal Cannula Weight: 82.2 kg Body Mass Index (BMI) 36.5 Finger Stick Blood Glucose 112 Sodium 140 mmol/L (136-145) 12/13/20 06:52 Potassium 3.7 mmol/L (3.5-5.1) 12/13/20 06:52 Chloride 104 mmol/L (98-107) 12/13/20 06:52 Carbon Dioxide 30.0 mmol/L (21.0-32.0) 12/13/20 06:52 Anion Gap 6 (5-15) 12/13/20 06:52 BUN 27 mg/dL (7-18) H 12/13/20 06:52 Creatinine 1.22 mg/dL (0.55-1.02) H 12/13/20 06:52 Est GFR (MDRD) Af Amer 55 mL/min (>60) L 12/13/20 06:52 Est GFR (MDRD) Non-Af 46 mL/min (>60) L 12/13/20 06:52 BUN/Creatinine Ratio 22.1 RATIO (10-20) H 12/13/20 06:52 Glucose 200 mg/dL (74-106) H 12/13/20 06:52 Assessment/Plan: Psychotropic Medications: Unnecessary Medications: Bowel Regimen: - Provider Comments Provider responsibility: Provider responsible to enter orders to implement recommendations Provider Comments to Recommendations by Pharmacy: Agree
[2020-12-15 11:26] LABS: Bedside Glucose 165 mg/dL (70-110)
[2020-12-15 14:32] VITALS: BP 141/44; PULSE 55; RESP 20; TEMP 36.9; O2SAT 92
--- NOTE | 2020-12-15 14:35 | CASEMGMT ---
Code status reviewed, pt confirms status as full code. MOLST form reviewed w/pt, communication to physician, form placed in chart. SRINIVASAN Campos
[2020-12-15 17:00] LABS: Bedside Glucose 64 mg/dL (70-110)
--- NOTE | 2020-12-15 17:30 | NURSING ---
Pt Blood Sugar [address] Connor. Dr. Connor also notified of pt having nausea New orders for KUB Urinalysis and Zofran entered.
[2020-12-15 17:31] LABS: Bedside Glucose 94 mg/dL (70-110)
[2020-12-15 17:49] LABS: Absolute Lymphocyte Count 1.28 X10^3/uL (0.83-4.51); Absolute Neutrophil Count 5.8 X10^3/uL (2.0-7.7); Basophil# 0.04 X10^3/uL; Basophil% 0.5 % (0-1); Eosinophil# 0.02 X10^3/uL; Eosinophils% 0.2 % (0-5); Hematocrit 27.6 % (37-47); Hemoglobin 8.3 g/dL (12.0-15.0); Lymphocyte # 1.28 X10^3/ul (4.0); Lymphocyte % 15.7 % (19-41); Mean Corp Hgb Conc 30.1 g/dL (32-36); Mean Corpuscular Hgb 28.7 pg (27.0-32.0); Mean Corpuscular Volume 95.5 fL (81-99); Mean Platelet Vol. 12.4 fl (6.2-12.0); Monocyte# 0.97 X10^3/uL; Monocyte% 11.9 % (0-10); NRBC Flagged by Analyzer 0 % (0-5); Neutrophil # 5.78 X10^3/uL (2.7-7.7); POSITIVE MORPHOLOGY YES; Platelet Count 167 K/mm3 (150-450); RBC Distribution Width CV 23.6 % (11.6-14.6); Red Blood Count 2.89 M/mm3 (4.2-5.4); White Blood Count 8.2 K/mm3 (4.4-11.0)
[2020-12-15 17:51] LABS: Differential Indicated SCAN CRITERIA MET
--- NOTE | 2020-12-15 17:55 | RAD_ITS ---
STUDY: X-RAY - ABDOMEN/PELVIS REASON FOR EXAM: Female, 75 years old. nausea TECHNIQUE: AP supine and upright views of the abdomen and pelvis. COMPARISON: CT scan abdomen and pelvis 09/25/2019. FINDINGS: Normal visualized lung bases. There is somewhat prominent small bowel gas, without abnormal distention. There is no demonstration of a stairstep pattern on the erect view and there is no paucity of gas in the colon to suggest significant bowel obstruction. Findings may represent an ileus. There is no demonstrated free abdominal air. The visualized liver, spleen and kidneys are grossly normal in size and morphology. Normal soft tissue structures. There is a right hip prosthesis. RAD/Abdomen Single View IMPRESSION: A somewhat prominent small bowel gas with a nonspecific nonobstructive pattern. Ileus cannot be excluded. Electronically Signed: Loco Hillman MD at 6:07 EST , Service support ,
[2020-12-15 18:08] LABS: Anisocytosis 1+
[2020-12-15 18:19] LABS: Anion Gap 8 (5-15); BUN 30 mg/dL (7-18); BUN/Creat Ratio 22.9 RATIO (10-20); Calcium,Total 8.8 mg/dL (8.5-10.1); Chloride 105 mmol/L (98-107); Creatinine, Serum 1.31 mg/dL (0.55-1.02); EST Glomerular Filtration Rate 42 mL/min (>60); Est Glom Filt Rate - Afr Amer 51 mL/min (>60); Estimated Creatinine Clearance 48.89 ml/min; Glucose 90 mg/dL (74-106); Potassium 3.6 mmol/L (3.5-5.1); Sodium Level 144 mmol/L (136-145)
[2020-12-15 19:17] LABS: Bacteria 0 SEEN /hpf (None Seen); Mucous, Urine 0 SEEN /hpf (<or=2+); White Blood Cells 0 SEEN /hpf (0-5)
[2020-12-15 19:19] LABS: Color, Urine Yellow (Yellow); Glucose, Dipstick Normal (Normal); Ketone-Dipstick Negative (Negative); Leukocyte Esterase-Dipstick Negative /ul (Negative); Nitrite-Dipstick Negative (Negative); Occult Blood-Urine 10 /ul (Negative); Protein-Dipstick 100 mg/dl (Negative); Urine Bilirubin Dipstick Negative (Negative); Urine Clarity Sl. Cloudy (Clear); Urine Urobilinogen Normal (Normal)
[2020-12-15 19:22] LABS: Amorphous Sediment 1+ PHOS; Red Blood Cells-Urine 0-5 SEEN /hpf (0-5); Squamous Epithelial Cells - UA 5-10 SEEN /hpf (5-10)
--- NOTE | 2020-12-15 20:15 | NURSING ---
In to do patient assessment and to give soap suds enema per orders. Patient found to have stool covered hand. It is noted an extra large tarry bm in brief and all over bed. Patient admits to having dug herself out. Dr. Connor notified of this. Orders given to check for occult stool and to d/c SSE.
[2020-12-15 20:45] VITALS: BP 139/70; PULSE 61
[2020-12-15] MEDS: Atorvastatin Calcium 80 MG Tablet PO (20:47)
--- NOTE | 2020-12-15 21:47 | NURSING ---
Dr. Connor notified of patient testing positive for occult stool. New orders to hold eliquis put in by Dr. Connor.
[2020-12-15 21:51] LABS: Bedside Glucose 131 mg/dL (70-110)
--- NOTE | 2020-12-16 03:16 | NURSING ---
Pt with xlg liquid black and maroon diarrhea with clots. RN aware.
[2020-12-16 06:16] VITALS: BP 139/64; PULSE 62; RESP 18; TEMP 36.2; O2SAT 94
[2020-12-16] MEDS: Fluticasone 0.05% 1 SPRAY NASAL.SRY 2 SPRAY NASAL (06:18)
[2020-12-16] MEDS: Fluticasone/Salmeterol 232-14 Inhaler 1 PUFF IH ×2 (06:19→17:24)
[2020-12-16] MEDS: Umeclidinium Bromide Inhaler 1 PUFF IH (06:19)
[2020-12-16 06:20] LABS: Bedside Glucose 130 mg/dL (70-110)
[2020-12-16] MEDS: Cefdinir 300 MG Capsule PO ×2 (06:20→17:24)
[2020-12-16] MEDS: Linezolid 600 MG Tablet PO ×2 (06:20→17:24)
[2020-12-16] MEDS: Lisinopril 10 MG Tablet PO (06:20)
[2020-12-16] MEDS: Senna/Docusate Sodium 1 Tablet PO ×2 (06:20→17:25)
[2020-12-16] MEDS: Cyanocobalamin 500 MCG Tablet 1000 MCG PO (06:20)
[2020-12-16] MEDS: Levothyroxine 25 MCG TABLET PO (06:21)
[2020-12-16] MEDS: Iron Polysaccharide Complex 150 MG CAPSULE PO (06:21)
[2020-12-16] MEDS: Pramipexole Di-HCl 1 MG Tablet PO ×2 (06:21→17:24)
[2020-12-16] MEDS: Pantoprazole Sodium 40 MG Tablet PO (06:21)
[2020-12-16] MEDS: Amiodarone 200 MG Tablet PO (06:21)
[2020-12-16] MEDS: Nystatin Powder 15gm Bottle 1 APPLIC TOPICAL ×2 (06:22→20:59)
[2020-12-16] MEDS: Menthol/Lanolin/Calamine/Znox 113 GM Tube 1 APPLIC TOPICAL ×2 (06:23→20:58)
[2020-12-16] MEDS: Glucerna Shake 120 ML LIQUID PO ×4 (06:25→20:57)
[2020-12-16 07:45] VITALS: O2SAT 91
[2020-12-16] MEDS: oxyCODONE 5 MG Tablet PO ×2 (07:49→20:56)
[2020-12-16] MEDS: Aspirin E.C. 81 MG Tablet PO (07:50)
[2020-12-16] MEDS: Potassium Chloride Oral Tablet 10 MEQ PO ×2 (07:50→17:25)
[2020-12-16] MEDS: Calcium Carb/Vitamin D 1 TABLET Tablet PO (07:51)
[2020-12-16] MEDS: Insulin Lispro 100 UNIT/ML INSULN.PEN 8 UNIT SC ×2 (07:51→11:50)
[2020-12-16 10:19] VITALS: BP 143/66; PULSE 59
[2020-12-16] MEDS: Metoprolol Tartrate 25 MG Tablet PO (10:19)
[2020-12-16] MEDS: Furosemide 40 MG Tablet PO ×2 (10:19→17:24)
[2020-12-16 11:15] LABS: Bedside Glucose 151 mg/dL (70-110)
[2020-12-16 14:23] VITALS: BP 126/52; PULSE 52; RESP 16; TEMP 36.1; O2SAT 94
[2020-12-16 16:30] LABS: Bedside Glucose 80 mg/dL (70-110)
[2020-12-16 20:56] VITALS: BP 130/52; PULSE 57
[2020-12-16] MEDS: Atorvastatin Calcium 80 MG Tablet PO (20:58)
[2020-12-16 21:26] LABS: Bedside Glucose 203 mg/dL (70-110)
[2020-12-17 06:00] LABS: Hematocrit 24.9 % (37-47)
[2020-12-17 06:21] LABS: Bedside Glucose 163 mg/dL (70-110)
--- NOTE | 2020-12-17 06:28 | PCA ---
patient was incontinent of stool. stool was black and tar like in color. nurse is aware.
[2020-12-17 06:36] VITALS: BP 136/78; PULSE 57; RESP 18; TEMP 35.8; O2SAT 94
[2020-12-17] MEDS: oxyCODONE 5 MG Tablet PO ×3 (06:39→21:50)
[2020-12-17] MEDS: Glucerna Shake 120 ML LIQUID PO ×4 (06:40→21:49)
[2020-12-17] MEDS: Cefdinir 300 MG Capsule PO (06:41)
[2020-12-17] MEDS: Levothyroxine 25 MCG TABLET PO (06:41)
[2020-12-17] MEDS: Cyanocobalamin 500 MCG Tablet 1000 MCG PO (06:41)
[2020-12-17] MEDS: Amiodarone 200 MG Tablet PO (06:41)
[2020-12-17] MEDS: Umeclidinium Bromide Inhaler 1 PUFF IH (06:42)
[2020-12-17] MEDS: Menthol/Lanolin/Calamine/Znox 113 GM Tube 1 APPLIC TOPICAL ×2 (06:42→21:49)
[2020-12-17] MEDS: Iron Polysaccharide Complex 150 MG CAPSULE PO (06:42)
[2020-12-17] MEDS: Fluticasone/Salmeterol 232-14 Inhaler 1 PUFF IH ×2 (06:43→18:01)
[2020-12-17] MEDS: Fluticasone 0.05% 1 SPRAY NASAL.SRY 2 SPRAY NASAL (06:44)
[2020-12-17] MEDS: Linezolid 600 MG Tablet PO ×2 (06:44→18:04)
[2020-12-17] MEDS: Pramipexole Di-HCl 1 MG Tablet PO ×2 (06:45→18:04)
[2020-12-17] MEDS: Pantoprazole Sodium 40 MG Tablet PO (06:45)
[2020-12-17] MEDS: Lisinopril 10 MG Tablet PO (06:45)
[2020-12-17 06:50] VITALS: O2SAT 92
[2020-12-17] MEDS: Nystatin Powder 15gm Bottle 1 APPLIC TOPICAL ×2 (06:50→21:50)
[2020-12-17] MEDS: Insulin Lispro 100 UNIT/ML INSULN.PEN 8 UNIT SC ×3 (08:22→18:06)
[2020-12-17] MEDS: Calcium Carb/Vitamin D 1 TABLET Tablet PO (08:24)
[2020-12-17] MEDS: Potassium Chloride Oral Tablet 10 MEQ PO ×2 (08:24→18:04)
[2020-12-17] MEDS: Furosemide 40 MG Tablet PO ×2 (10:59→18:04)
[2020-12-17 11:02] VITALS: BP 125/46; PULSE 57
[2020-12-17 11:05] LABS: Bedside Glucose 199 mg/dL (70-110)
--- NOTE | 2020-12-17 13:20 | CASEMGMT ---
Social Work IDT met with patient and dtr via conference call for care plan meeting. Discussed patient's progress in therapy and nursing. Pt is NWB on RLE. Pt is out of isolation 3/, increased O2. The goal is for pt to return home alone. Explained [employer] insurance with NRD 3/ and continued stay is not guaranteed. Inquired alternative plan if insurance does not approve additional days when pt is ready to DC home. Dtr lives about 2/5-3 hrs away - pt could stay with dtr but not ideal as pt would not be near her doctor's and dtr cares for S.O. that has disability. There is no other family nearby to assist pt at home. Discussed nonskilled HHC. Provided list to pt and emailed to dtr. Encouraged to call for pricing and availability and place pt on waitlist. Will continue to follow. Vera Waller, [employer]
[2020-12-17 14:08] VITALS: O2SAT 93
[2020-12-17 15:08] VITALS: BP 121/55; PULSE 63; RESP 20; TEMP 36.1; O2SAT 94
[2020-12-17 16:40] LABS: Bedside Glucose 151 mg/dL (70-110)
[2020-12-17] MEDS: Senna/Docusate Sodium 1 Tablet PO (18:04)
[2020-12-17] MEDS: Atorvastatin Calcium 80 MG Tablet PO (21:43)
[2020-12-17 21:45] VITALS: BP 120/47; PULSE 57
[2020-12-17 21:51] LABS: Bedside Glucose 171 mg/dL (70-110)
[2020-12-18] VITALS (7 sets, daily range): BP systolic 138–162; BP diastolic 53–68; PULSE 60–71; RESP 16–18; TEMP 36.1–36.9; O2SAT 93–98
[2020-12-18] MEDS: Fluticasone/Salmeterol 232-14 Inhaler 1 PUFF IH ×2 (05:27→17:26)
[2020-12-18] MEDS: Fluticasone 0.05% 1 SPRAY NASAL.SRY 2 SPRAY NASAL (05:27)
[2020-12-18] MEDS: Umeclidinium Bromide Inhaler 1 PUFF IH (05:28)
[2020-12-18] MEDS: Pramipexole Di-HCl 1 MG Tablet PO ×2 (05:29→17:20)
[2020-12-18] MEDS: Iron Polysaccharide Complex 150 MG CAPSULE PO (05:29)
[2020-12-18] MEDS: Amiodarone 200 MG Tablet PO (05:29)
[2020-12-18] MEDS: Nystatin Powder 15gm Bottle 1 APPLIC TOPICAL ×2 (05:29→21:34)
[2020-12-18] MEDS: Menthol/Lanolin/Calamine/Znox 113 GM Tube 1 APPLIC TOPICAL ×2 (05:29→21:34)
[2020-12-18] MEDS: Lisinopril 10 MG Tablet PO (05:30)
[2020-12-18] MEDS: Cyanocobalamin 500 MCG Tablet 1000 MCG PO (05:30)
[2020-12-18] MEDS: Pantoprazole Sodium 40 MG Tablet PO (05:30)
[2020-12-18] MEDS: Levothyroxine 25 MCG TABLET PO (05:30)
[2020-12-18] MEDS: Paroxetine 20 MG Tablet 40 MG PO (05:33)
[2020-12-18] MEDS: Glucerna Shake 120 ML LIQUID PO ×3 (05:36→21:31)
[2020-12-18] MEDS: oxyCODONE 5 MG Tablet PO ×2 (05:36→21:30)
[2020-12-18 06:26] LABS: Bedside Glucose 199 mg/dL (70-110)
[2020-12-18] MEDS: Insulin Lispro 100 UNIT/ML INSULN.PEN 8 UNIT SC ×3 (08:26→17:20)
[2020-12-18] MEDS: Potassium Chloride Oral Tablet 10 MEQ PO ×2 (08:27→17:20)
[2020-12-18] MEDS: Calcium Carb/Vitamin D 1 TABLET Tablet PO (08:27)
[2020-12-18] MEDS: Furosemide 40 MG Tablet PO ×2 (08:28→17:20)
[2020-12-18] MEDS: Nitroglycerin (INPATIENT USE) 0.4 MG TAB.SUBL SUBLINGUAL (12:16)
--- NOTE | 2020-12-18 12:21 | NURSING ---
[facility] CALL[facility] FOR THIS [facility]URSE STATING PT WAS HAVING CHEST PAIN AND HEAVINESS. THIS NURSE TO [facility] TO ADMINISTER NITROGLYCERIN 1 TAB. AFTER 5 MINS PT STATED SHE FELT MUCH BETTER. RN AWARE.
[2020-12-18 12:50] LABS: Bedside Glucose 257 mg/dL (70-110)
--- NOTE | 2020-12-18 13:46 | MDS.RN ---
Completed pain interview for ARIELA 12/19/20
[2020-12-18 17:16] LABS: Bedside Glucose 102 mg/dL (70-110)
[2020-12-18] MEDS: Metoprolol Tartrate 25 MG Tablet PO (21:31)
[2020-12-18] MEDS: Atorvastatin Calcium 80 MG Tablet PO (21:32)
[2020-12-18 21:36] LABS: Bedside Glucose 176 mg/dL (70-110)
[2020-12-19] VITALS (7 sets, daily range): BP systolic 120–141; BP diastolic 43–61; PULSE 55–64; RESP 16–20; TEMP 36.3–37.1; O2SAT 93–99
[2020-12-19 05:53] LABS: Hematocrit 30.2 % (37-47)
[2020-12-19 06:15] LABS: Bedside Glucose 140 mg/dL (70-110)
[2020-12-19] MEDS: Umeclidinium Bromide Inhaler 1 PUFF IH (06:22)
[2020-12-19] MEDS: Fluticasone/Salmeterol 232-14 Inhaler 1 PUFF IH ×2 (06:23→17:41)
[2020-12-19] MEDS: Amiodarone 200 MG Tablet PO (06:24)
[2020-12-19] MEDS: Levothyroxine 25 MCG TABLET PO (06:24)
[2020-12-19] MEDS: Pramipexole Di-HCl 1 MG Tablet PO ×2 (06:24→17:40)
[2020-12-19] MEDS: Senna/Docusate Sodium 1 Tablet PO ×2 (06:24→17:39)
[2020-12-19] MEDS: Lisinopril 10 MG Tablet PO (06:24)
[2020-12-19] MEDS: Iron Polysaccharide Complex 150 MG CAPSULE PO (06:24)
[2020-12-19] MEDS: Pantoprazole Sodium 40 MG Tablet PO (06:24)
[2020-12-19] MEDS: Fluticasone 0.05% 1 SPRAY NASAL.SRY 2 SPRAY NASAL (06:24)
[2020-12-19] MEDS: Cyanocobalamin 500 MCG Tablet 1000 MCG PO (06:25)
[2020-12-19] MEDS: Paroxetine 20 MG Tablet 40 MG PO (06:25)
[2020-12-19] MEDS: Glucerna Shake 120 ML LIQUID PO ×3 (06:26→21:13)
[2020-12-19] MEDS: Menthol/Lanolin/Calamine/Znox 113 GM Tube 1 APPLIC TOPICAL ×2 (06:28→20:56)
[2020-12-19] MEDS: Nystatin Powder 15gm Bottle 1 APPLIC TOPICAL ×2 (06:29→21:13)
[2020-12-19] MEDS: Insulin Lispro 100 UNIT/ML INSULN.PEN 8 UNIT SC ×2 (08:18→17:39)
[2020-12-19] MEDS: cycloBENZAPRine HCl 10 MG Tablet PO ×3 (08:19→21:04)
[2020-12-19] MEDS: Potassium Chloride Oral Tablet 10 MEQ PO ×2 (08:19→17:40)
[2020-12-19] MEDS: Calcium Carb/Vitamin D 1 TABLET Tablet PO (08:20)
[2020-12-19] MEDS: Metoprolol Tartrate 25 MG Tablet PO ×2 (09:31→21:04)
[2020-12-19] MEDS: Furosemide 40 MG Tablet PO ×2 (09:31→17:41)
[2020-12-19 10:51] LABS: Bedside Glucose 193 mg/dL (70-110)
--- NOTE | 2020-12-19 11:16 | PCA ---
Addendum entered by Kimberly Staton 12/19/20 12:17: Dr. Chavira performed dressing change to BLE Original Note: Dr. Chavira here to see patient. States he will see patient while she is in TCU. Then to follow up 1 week after discharge. RN updated
--- NOTE | 2020-12-19 11:27 | NURSING ---
Pt refusing therapy at this time, pt stated she just wants to go home, pt educated on importance of participating in therapy for preparation to go home, pt still refusing at this time.
--- NOTE | 2020-12-19 12:56 | PN_ITS ---
Patient Problems: Active and Suspected Problems (Last Reviewed 12/10/20 @ 11:[address] Brown Vargas MD) Fracture of right great toe (Acute) Cellulitis of right leg (Acute) Debility (Acute) Acute kidney injury (Acute) Subjective: Patient was seen today for follow up on right 1st toe. She relates it is feeling better. No complaints, no complaints of fever, chills, nausea or vomiting. - Physical Exam Vitals/I&O's: Vital Signs Temp Pulse Resp BP Pulse Ox 98.1 F 55 L 20 H 120/61 98 12/19/20 12:38 12/19/20 12:38 12/19/20 12:38 12/19/20 12:38 12/19/20 12:38 Oxygen Flow Rate (L/min) 6.5 Oxygen Delivery Method Nasal Cannula Weight: 83.007 kg Body Mass Index (BMI) 36.5 Finger Stick Blood Glucose 112 Intake and Output for Last 24 Hours 12/17/20 12/18/20 12/19/20 23:59 23:59 23:59 Intake Total 600 / 600 720 / 720 480 / 480 Output Total 1000 / 1000 Balance 600 / 600 720 / 720 -520 / -520 General: Alert, Oriented x3, Cooperative, No apparent distress Extremities: Capillary Refill Less than 3 Seconds, No Calf Tenderness, - - Right 1st toenail nail healing very well, no drainage or evidence of infection, no exposed bone, there is some residual edema present. Cracks to heels healing well with no evidence of infection bilateral. No new areas of breakdown, no erythema no cellullitis b/l foot or ankle. Musculoskeletal: - - Some residual tenderness to the right 1st toe distal phalanx c/w healing fracture. No evidence of compartment syndrome bilateral foot/ankle, no hypersenstivity, no evidence of acute ischemia to the foot or ankle bilateral. Psych/Mental Status: Normal Affect, Appropriate, Alert and oriented to time, place, person, mood and affect Microbiology Past 72 Hours 12/15/20 18:30 Urine, Catheterized Urine Culture - Final Culture exhibits no growth. Laboratory Results 12/18/20 16:40: POC Glucose 102 12/18/20 21:31: POC Glucose 176 H 12/19/20 05:20: Hgb 9.0 L, Hct 30.2 L 12/19/20 06:10: POC Glucose 140 H 12/19/20 10:45: POC Glucose 193 H Current Medications Acetaminophen (Acetaminophen 500 Mg Tablet) 1,000 mg PO Q6H PRN PRN PRN Reason: Pain Score 1-5 Albuterol Sulfate (Albuterol Sulfate 8 Gm Inhaler (60 Puffs)) 2 puff INHALATION Q6H PRN PRN PRN Reason: SOB &/OR WHEEZING Last Admin: 12/13/20 01:09 Dose: 2 puff Documented by: Amiodarone HCl (Amiodarone 200 Mg Tablet) 200 mg PO DAILY [facility] Last Admin: 12/19/20 06:24 Dose: 200 mg Documented by: Atorvastatin Calcium (Atorvastatin Calcium 80 Mg Tablet) 80 mg PO QHS [facility] Last Admin: 12/18/20 21:32 Dose: 80 mg Documented by: Bisacodyl (Bisacodyl 5 Mg Tablet) 10 mg PO DAILY PRN PRN Reason: Constipation Calamine/Phenol (Menthol/Lanolin/Calamine/Znox 113 Gm Tube) 1 applic TOPICAL 0600,2200 [facility]; Protocol Last Admin: 12/19/20 06:28 Dose: 1 applicatio Documented by: Calcium/Vitamin D (Calcium Carb/Vitamin D 1 Tablet Tablet) [facility] Admin: 12/19/20 08:20 Dose: 1 tablet Documented by: Cyanocobalamin (Cyanocobalamin 500 Mcg Tablet) 1,000 mcg PO DAILY [facility] Last Admin: 12/19/20 06:25 Dose: 1,000 mcg Documented by: Cyclobenzaprine HCl (Cyclobenzaprine Hcl 10 Mg Tablet) 10 mg PO TID [facility] Last Admin: 12/19/20 08:19 Dose: 10 mg Documented by: Emollient Ointment (Emollient Combination No.72 500 Ml Lotion) 1 applic TOPICAL HS [facility]; Protocol Last Admin: 12/18/20 21:34 Dose: 1 applicatio Documented by: Fluticasone Propionate (Fluticasone 0.05% 1 [place] Nasal.Sry) 2 spray NASAL DAILY [facility] Last Admin: 12/19/20 06:24 Dose: 2 spray Documented by: Furosemide (Furosemide 40 Mg Tablet) 40 mg PO BID@1000,1800 [facility] Last Admin: 12/19/20 09:31 Dose: 40 mg Documented by: Insulin Glargine (Insulin Glargine 100 Units/Ml Pen) 15 units SC BREAKFAST [facility] Last Admin: 12/19/20 08:19 Dose: 15 u Documented by: Insulin Human Lispro (Insulin Lispro 100 Unit/Ml Insuln.Pen) 8 unit SC TIDCM [facility] Last Admin: 12/19/20 11:51 Dose: Not Given Documented by: Lactobacillus Acidophilus (Lactobacillus Acidophilus) 1 tablet PO DAILY [facility] Last Admin: 12/19/20 06:28 Dose: 1 tablet Documented by: Levothyroxine Sodium (Levothyroxine 25 Mcg Tablet) 25 mcg PO DAILY [facility] Last Admin: 12/19/20 06:24 Dose: 25 mcg Documented by: Lisinopril (Lisinopril 10 Mg Tablet) 10 mg PO DAILY [facility] Last Admin: 12/19/20 06:24 Dose: 10 mg Documented by: Magnesium Hydroxide (Magnesium Hydroxide 30 Ml Udc) 30 ml PO DAILY PRN PRN Reason: Constipation Metoprolol Tartrate (Metoprolol Tartrate 25 Mg Tablet) 25 mg PO 1000,2200 [facility] Last Admin: 12/19/20 09:31 Dose: 25 mg Documented by: Nitroglycerin (Nitroglycerin (Inpatient Use) 0.4 Mg Tab.Subl) 0.4 mg SUBLINGUAL Q5M PRN PRN Reason: CARDIAC/CHEST PAIN Last Admin: 12/18/20 12:16 Dose: 0.4 mg Documented by: Nutritional Formula (Lactose Free) (Glucerna Shake 120 Ml Liquid) 120 ml PO 4X/DAY [facility] Last Admin: 12/19/20 11:25 Dose: Not Given Documented by: Nystatin (Nystatin Powder 15gm Bottle) 1 applic TOPICAL 0600,2200 [facility]; Protocol Last Admin: 12/19/20 06:29 Dose: 1 applicatio Documented by: Ondansetron HCl (Ondansetron Odt 4 Mg Tablet) 4 mg PO Q8H PRN PRN PRN Reason: NAUSEA Oxycodone HCl (Oxycodone 5 Mg Tablet) 5 mg PO Q4H PRN PRN PRN Reason: Pain Score 6-10 Last Admin: 12/18/20 21:30 Dose: 5 mg Documented by: Pantoprazole Sodium (Pantoprazole Sodium 40 Mg Tablet) 40 mg PO DAILY [facility] Last Admin: 12/19/20 06:24 Dose: 40 mg Documented by: Paroxetine HCl (Paroxetine 20 Mg Tablet) 40 mg PO DAILY [facility] Last Admin: 12/19/20 06:25 Dose: 40 mg Documented by: Polyethylene Glycol (Polyethylene Glycol 3350 17 Gm Packet) 17 gm PO DAILY [facility] Last Admin: 12/19/20 06:23 Dose: Not Given Documented by: Polysaccharide Iron Complex (Iron Polysaccharide Complex 150 Mg Capsule) 150 mg PO DAILY [facility] Last Admin: 12/19/20 06:24 Dose: 150 mg Documented by: Potassium Chloride (Potassium Chloride Oral Tablet 10 Meq) 10 meq PO BIDCM [facility] Last Admin: 12/19/20 08:19 Dose: 10 meq Documented by: Pramipexole Dihydrochloride (Pramipexole Di-Hcl 1 Mg Tablet) 1 mg PO BID [facility] Last Admin: 12/19/20 06:24 Dose: 1 mg Documented by: Fluticasone/Salmeterol (Fluticasone/Salmeterol 232-14 Inhaler) 1 puff IH Q12 [facility] Last Admin: 12/19/20 06:23 Dose: 1 puff Documented by: Senna/Docusate Sodium (Senna/Docusate Sodium 1 Tablet) 1 tablet PO BID [facility] Last Admin: 12/19/20 06:24 Dose: 1 tablet Documented by: Sodium Chloride (0.9% Saline Lock 10 Ml Syringe) 10 - 40 ml IV UD PRN PRN Reason: SALINE FLUSH Tuberculin PPD (Tuberculin,Purif.Prot.Deriv. 50 Tu/Ml Vial) 5 tu ID [id number] ONE Stop: 12/21/20 10:01 Umeclidinium Loma (Umeclidinium Loma Inhaler) 1 puff IH DAILY [facility] Last Admin: 12/19/20 06:22 Dose: 1 puff Documented by: Zolpidem Tartrate (Zolpidem Tartrate 5 Mg Tablet) 5 mg PO QHS PRN PRN PRN Reason: INSOMNIA Medical Necessity - Tobacco Use Smoking Status: Former smoker Tobacco Use: Non-smoker Assessment/Plan All Active Problems (Last Reviewed 12/10/20 @ 11:[address] Brown Vargas MD) Other specified peripheral vascular diseases (Acute) Fracture of right great toe (Acute) Cellulitis of right leg (Acute) Debility (Acute) Acute kidney injury (Acute) Right 1st toe distal phalanx fracture - open, w/ laceration down to bone and lysis of the 1st toenail - healing well Cellulitis right foot - resolved Diabetes with peripheral neuropathy Peripheral vascular disease Multiple comorbidities Reviewed and discussed case. Healing noted. Culture has been obtained right 1st toe - serratia, klebsiella, enterococcus. MRI neg for osteomyelitis. Blood cultures negative. Patient completed omnicef 300 daily and linezolid [address] Cordova. There is no evidence of infection to the foot or ankle bilaterally at this time. Vascular surgery / Dr. Vargas on consult. To change right foot dressing with adaptic, hydrogel, and gauze daily to 1st toe and heels. No weightbearing right foot and WBAT left foot with surgical shoe. Medical management per primary team as noted. Podiatry will continue to follow weekly.
--- NOTE | 2020-12-19 13:51 | RAD_ITS ---
STUDY: X-RAY CHEST REASON FOR EXAM: Female, 75 years old. Encephalopathy. TECHNIQUE: PA and lateral views of the chest. COMPARISON: 12/12/2020 FINDINGS: Coarsened interstitial lung markings overall similar. There is small bilateral pleural effusions. There is mild cardiac enlargement. Normal mediastinum and duarte. There is prominence of the pulmonary hilar arteries and peripheral pulmonary arteries, consistent with congestive heart failure (CHF). Aortic valve replacement device noted. Atherosclerosis of the thoracic aorta. There are diffuse degenerative changes of the visualized thoracic spine. Normal visualized ribs, clavicles, and shoulders. There is no demonstrated abnormality of the visualized soft tissue structures of the upper abdomen. RAD/Chest PA and Lateral IMPRESSION: 1. Stable CHF with interstitial edema and small effusions. Electronically Signed: Travis Ricks MD ([place]) at 14:28 EST , Service support ,
--- NOTE | 2020-12-19 14:10 | RAD_ITS ---
STUDY: X-RAY - ABDOMEN/PELVIS REASON FOR EXAM: Female, 75 years old. Constipation TECHNIQUE: Single AP view of the abdomen / pelvis. COMPARISON: None. FINDINGS: Normal visualized lung bases. There is a nondilated bowel gas pattern. There is no demonstrated free abdominal air. The visualized liver, spleen and kidneys are grossly normal in size and morphology. Arterial vascular calcifications. Surgical clips project in the lower pelvis. Right hip replacement. Degenerative changes of the lumbar spine. RAD/Abdomen Single View IMPRESSION: Nonobstructive bowel gas pattern. Electronically Signed: Travis Ricks MD ([place]) at 14:26 EST , Service support ,
[2020-12-19 14:42] LABS: Absolute Lymphocyte Count 0.86 X10^3/uL (0.83-4.51); Absolute Neutrophil Count 5.2 X10^3/uL (2.0-7.7); Basophil# 0.03 X10^3/uL; Basophil% 0.4 % (0-1); Eosinophil# 0.08 X10^3/uL; Eosinophils% 1.2 % (0-5); Hematocrit 32.4 % (37-47); Hemoglobin 9.5 g/dL (12.0-15.0); Lymphocyte # 0.86 X10^3/ul (4.0); Lymphocyte % 12.9 % (19-41); Mean Corp Hgb Conc 29.3 g/dL (32-36); Mean Corpuscular Hgb 26.5 pg (27.0-32.0); Mean Corpuscular Volume 90.5 fL (81-99); Mean Platelet Vol. 11.6 fl (6.2-12.0); Monocyte# 0.44 X10^3/uL; Monocyte% 6.6 % (0-10); NRBC Flagged by Analyzer 0 % (0-5); Neutrophil # 5.24 X10^3/uL (2.7-7.7); Neutrophil % 78.6 % (47-70); POSITIVE MORPHOLOGY YES; Platelet Count 200 K/mm3 (150-450); RBC Distribution Width CV 19.9 % (11.6-14.6); RBC Distribution Width SD 65.7 fl (35.1-43.9); Red Blood Count 3.58 M/mm3 (4.2-5.4); White Blood Count 6.7 K/mm3 (4.4-11.0)
--- NOTE | 2020-12-19 14:52 | NURSING ---
New onset confusion and hallucinations, pt also had slightly slurred speech, N.O. U/A C&S, CT of head without contrast, CBC, BMP, CXR, KUB, Precert auth #[id number], Valid dates 12/29/20 through 07/07/21.
[2020-12-19 14:53] LABS: Anion Gap 4 (5-15); BUN 27 mg/dL (7-18); Calcium,Total 8.4 mg/dL (8.5-10.1); Chloride 102 mmol/L (98-107); Creatinine, Serum 1.23 mg/dL (0.55-1.02); EST Glomerular Filtration Rate 45 mL/min (>60); Est Glom Filt Rate - Afr Amer 55 mL/min (>60); Estimated Creatinine Clearance 52.58 ml/min; Glucose 155 mg/dL (74-106); Potassium 3.9 mmol/L (3.5-5.1); Sodium Level 139 mmol/L (136-145)
[2020-12-19 15:19] LABS: Microcytosis 1+
[2020-12-19 15:20] LABS: Anisocytosis 2+; Differential Comment SCANNED; Differential Indicated SCAN CRITERIA MET; Hypochromasia 1+
--- NOTE | 2020-12-19 15:32 | NURSING ---
Tried to call and update daughter but reached automated answering service stating number can not be completed due to network errors.
[2020-12-19 16:25] LABS: Bedside Glucose 143 mg/dL (70-110)
--- NOTE | 2020-12-19 18:20 | NURSING ---
Pt straight cathed to obtain urine minimal amount of urine obtained not enough for U/A culture will try again later
[2020-12-19] MEDS: 0.9% Normal Saline 1,000 ML 500 ML IV (20:54)
[2020-12-19] MEDS: Atorvastatin Calcium 80 MG Tablet PO (21:05)
[2020-12-19 21:35] LABS: Bedside Glucose 128 mg/dL (70-110)
[2020-12-19] MEDS: 0.9% Normal Saline 1,000 ML 60 ML IV (23:10)
[2020-12-20 03:57] VITALS: BP 144/65; PULSE 57; RESP 16; TEMP 37.4; O2SAT 95
[2020-12-20] MEDS: Iron Polysaccharide Complex 150 MG CAPSULE PO (05:41)
[2020-12-20] MEDS: Pramipexole Di-HCl 1 MG Tablet PO ×2 (05:41→18:01)
[2020-12-20] MEDS: Amiodarone 200 MG Tablet PO (05:42)
[2020-12-20] MEDS: Paroxetine 20 MG Tablet 40 MG PO (05:42)
[2020-12-20] MEDS: Levothyroxine 25 MCG TABLET PO (05:42)
[2020-12-20] MEDS: Senna/Docusate Sodium 1 Tablet PO (05:43)
[2020-12-20] MEDS: Pantoprazole Sodium 40 MG Tablet PO (05:43)
[2020-12-20] MEDS: Lisinopril 10 MG Tablet PO (05:43)
[2020-12-20] MEDS: Cyanocobalamin 500 MCG Tablet 1000 MCG PO (05:43)
[2020-12-20] MEDS: Fluticasone 0.05% 1 SPRAY NASAL.SRY 2 SPRAY NASAL (05:44)
[2020-12-20] MEDS: Menthol/Lanolin/Calamine/Znox 113 GM Tube 1 APPLIC TOPICAL ×2 (05:45→20:03)
[2020-12-20] MEDS: Fluticasone/Salmeterol 232-14 Inhaler 1 PUFF IH ×2 (05:45→18:02)
[2020-12-20] MEDS: Umeclidinium Bromide Inhaler 1 PUFF IH (05:45)
[2020-12-20] MEDS: Nystatin Powder 15gm Bottle 1 APPLIC TOPICAL ×2 (05:46→20:04)
[2020-12-20] MEDS: cycloBENZAPRine HCl 10 MG Tablet PO (05:49)
[2020-12-20] MEDS: Glucerna Shake 120 ML LIQUID PO ×4 (05:49→20:03)
[2020-12-20] MEDS: Polyethylene Glycol 3350 17 GM PACKET PO (05:50)
[2020-12-20 06:25] LABS: Bedside Glucose 162 mg/dL (70-110)
[2020-12-20 07:11] LABS: Absolute Lymphocyte Count 0.83 X10^3/uL (0.83-4.51); Absolute Neutrophil Count 5.7 X10^3/uL (2.0-7.7); Basophil# 0.04 X10^3/uL; Basophil% 0.6 % (0-1); Eosinophils% 1.4 % (0-5); Hematocrit 34.7 % (37-47); Hemoglobin 9.9 g/dL (12.0-15.0); Lymphocyte # 0.83 X10^3/ul (4.0); Lymphocyte % 11.5 % (19-41); Mean Corp Hgb Conc 28.5 g/dL (32-36); Mean Corpuscular Hgb 26.5 pg (27.0-32.0); Mean Platelet Vol. 11.9 fl (6.2-12.0); Monocyte# 0.55 X10^3/uL; Monocyte% 7.6 % (0-10); NRBC Flagged by Analyzer 0 % (0-5); Neutrophil # 5.67 X10^3/uL (2.7-7.7); Neutrophil % 78.6 % (47-70); POSITIVE MORPHOLOGY YES; Platelet Count 207 K/mm3 (150-450); RBC Distribution Width CV 19.9 % (11.6-14.6); RBC Distribution Width SD 66.5 fl (35.1-43.9); Red Blood Count 3.73 M/mm3 (4.2-5.4); White Blood Count 7.2 K/mm3 (4.4-11.0)
[2020-12-20 07:26] LABS: Bacteria 0 SEEN /hpf (None Seen); Mucous, Urine 0 SEEN /hpf (<or=2+); Red Blood Cells-Urine 0 SEEN /hpf (0-5); White Blood Cells 0 SEEN /hpf (0-5)
[2020-12-20 07:31] LABS: Color, Urine Yellow (Yellow); Glucose, Dipstick Normal (Normal); Ketone-Dipstick Negative (Negative); Leukocyte Esterase-Dipstick Negative /ul (Negative); Nitrite-Dipstick Negative (Negative); Occult Blood-Urine Negative /ul (Negative); Protein-Dipstick 30 mg/dl (Negative); Specific Gravity, Urine 1.005 (1.002-1.030); Urine Bilirubin Dipstick Negative (Negative); Urine Clarity Clear (Clear); Urine Urobilinogen Normal (Normal)
[2020-12-20 07:32] LABS: Differential Indicated SCAN CRITERIA MET
[2020-12-20 07:33] LABS: Anion Gap 4 (5-15); BUN 24 mg/dL (7-18); BUN/Creat Ratio 21.8 RATIO (10-20); Calcium,Total 8.4 mg/dL (8.5-10.1); Chloride 100 mmol/L (98-107); EST Glomerular Filtration Rate 52 mL/min (>60); Est Glom Filt Rate - Afr Amer 62 mL/min (>60); Glucose 181 mg/dL (74-106); Sodium Level 138 mmol/L (136-145)
[2020-12-20 07:50] LABS: Squamous Epithelial Cells - UA 0-5 SEEN /hpf (5-10)
[2020-12-20] MEDS: Insulin Lispro 100 UNIT/ML INSULN.PEN 8 UNIT SC ×3 (08:07→18:05)
[2020-12-20] MEDS: Potassium Chloride Oral Tablet 10 MEQ PO ×2 (08:09→18:00)
[2020-12-20] MEDS: Calcium Carb/Vitamin D 1 TABLET Tablet PO (08:10)
[2020-12-20 09:03] LABS: Anisocytosis 2+; Differential Comment SCANNED; Macrocytosis 1+; Microcytosis 1+
--- NOTE | 2020-12-20 09:23 | NURSING ---
THIS NURSE IN ROOM WITH PT AND HAD 0XYGEN OFF. PT REFUSING THERAPY AND VERY CONFUSED AND SITTING ON SIDE OF BED. PT STATES SHE IS NOT IN HOSPITAL SHE IS AT HOME. PT STATED YOU PEOPLE THINK ALFONSO STUPID. THIS NURSE AND THERAPIST STATED TO PT WE DID NOT THINK THAT AND SHE IS SMART AND MAKES GOOD DECISIONS. ASKED PT IF SHE COULD GET BACK IN BED PT REFUSED. THIS NURSE EXPLAINED TO PT IF SHE GETS UP AND FALLS AND GETS HURT SHE WONT BE GOING HOME SOON. THEN PT STARTED PICKING AT HER DRESSINGS AND SAYING TAKE THEM OFF. EXPLAINED TO PT WHY SHE HAS THE DRESSINGS TO HER FEET. PT LOOKED TOWARDS OUT SIDE WALL AND STATED I DONT WANT THOSE KIDS IN HERE MAKING NOISE. STATED TO PT THAT THERE WERE NO KIDS IN HER ROOM. ASKED PT IF SHE NEEDED ANY THING PT STATED NO JUST LEAVE ME ALONE. RN AWARE
--- NOTE | 2020-12-20 09:53 | NURSING ---
Addendum entered by Yesenia Goldstein 12/20/20 12:43: dr gamble updated on increased confusion, stated we are holding her against her will new order to DC scheduled flexeril. will monitor. Original Note: WATCHING PT SHE IS LYING IN BED AND PT IS PUTTING HER HAND TO MOUTH AND THINKS SHE IS SMOKING. PT ALSO THINKS SHE IS TALKING TO A MAN IN THE ROOM. VITALS DONE. RN AWARE
[2020-12-20 10:00] VITALS: PULSE 60; RESP 18; O2SAT 96
[2020-12-20 10:02] VITALS: BP 141/57; PULSE 60
[2020-12-20] MEDS: Metoprolol Tartrate 25 MG Tablet PO ×2 (10:02→20:10)
[2020-12-20] MEDS: Furosemide 40 MG Tablet PO ×2 (10:02→18:01)
[2020-12-20 10:07] VITALS: BP 141/57; PULSE 60; RESP 20; TEMP 36.3; O2SAT 96
[2020-12-20 11:41] LABS: Bedside Glucose 156 mg/dL (70-110)
--- NOTE | 2020-12-20 13:26 | NURSING ---
HOUSE KEEPING ASKED THIS NURSE TO ROOM. STATED PT IS SEEING A LITTLE BOY IN ROOM. THIS NURSE REORIENTED PT. PT MORE ALERT. MED FLEXERIL WAS D/C BY DUE TO SIDE A EFFECTS FROM MED.
[2020-12-20] MEDS: 0.9% Normal Saline 1,000 ML 60 ML IV (14:56)
[2020-12-20 15:33] VITALS: BP 157/75; PULSE 59; RESP 24; TEMP 36.1; O2SAT 97
[2020-12-20] MEDS: oxyCODONE 5 MG Tablet PO ×2 (16:01→23:12)
[2020-12-20 16:31] LABS: Bedside Glucose 96 mg/dL (70-110)
[2020-12-20 20:10] VITALS: BP 126/70; PULSE 64
[2020-12-20] MEDS: Atorvastatin Calcium 80 MG Tablet PO (20:10)
[2020-12-20 21:25] LABS: Bedside Glucose 103 mg/dL (70-110)
[2020-12-21] MEDS: Acetaminophen 500 MG Tablet 1000 MG PO ×2 (01:28→19:49)
[2020-12-21 05:00] VITALS: BP 164/77; PULSE 61; RESP 18; TEMP 36.6; O2SAT 98
[2020-12-21] MEDS: Paroxetine 20 MG Tablet 40 MG PO (06:38)
[2020-12-21] MEDS: Amiodarone 200 MG Tablet PO (06:38)
[2020-12-21] MEDS: Levothyroxine 25 MCG TABLET PO (06:39)
[2020-12-21] MEDS: Nystatin Powder 15gm Bottle 1 APPLIC TOPICAL ×2 (06:39→19:47)
[2020-12-21] MEDS: Pantoprazole Sodium 40 MG Tablet PO (06:39)
[2020-12-21] MEDS: Pramipexole Di-HCl 1 MG Tablet PO ×2 (06:39→17:49)
[2020-12-21] MEDS: Iron Polysaccharide Complex 150 MG CAPSULE PO (06:39)
[2020-12-21] MEDS: Lisinopril 10 MG Tablet PO (06:39)
[2020-12-21] MEDS: Cyanocobalamin 500 MCG Tablet 1000 MCG PO (06:39)
[2020-12-21] MEDS: Fluticasone/Salmeterol 232-14 Inhaler 1 PUFF IH ×2 (06:40→17:51)
[2020-12-21] MEDS: Glucerna Shake 120 ML LIQUID PO ×4 (06:40→19:46)
[2020-12-21] MEDS: Fluticasone 0.05% 1 SPRAY NASAL.SRY 2 SPRAY NASAL (06:40)
[2020-12-21] MEDS: Umeclidinium Bromide Inhaler 1 PUFF IH (06:40)
[2020-12-21] MEDS: Menthol/Lanolin/Calamine/Znox 113 GM Tube 1 APPLIC TOPICAL ×2 (06:40→19:46)
[2020-12-21 07:00] VITALS: O2SAT 94
[2020-12-21 07:21] LABS: Bedside Glucose 164 mg/dL (70-110)
--- NOTE | 2020-12-21 07:27 | NURSING ---
pt very confused, trying to get out of bed and hallucinating. 1:1 given and helped back in bed. pt reported 6 out of 10 pain, pain meds given. RN aware.
[2020-12-21] MEDS: 0.9% Normal Saline 1,000 ML 60 ML IV (07:49)
[2020-12-21] MEDS: Insulin Lispro 100 UNIT/ML INSULN.PEN 8 UNIT SC ×3 (07:51→17:48)
[2020-12-21] MEDS: Potassium Chloride Oral Tablet 10 MEQ PO ×2 (07:54→17:48)
[2020-12-21] MEDS: Calcium Carb/Vitamin D 1 TABLET Tablet PO (07:54)
[2020-12-21 09:55] VITALS: PULSE 50; RESP 20; O2SAT 97
[2020-12-21 10:02] VITALS: BP 132/50; PULSE 50
[2020-12-21] MEDS: Furosemide 40 MG Tablet PO ×2 (10:03→17:49)
[2020-12-21] MEDS: Tuberculin,Purif.prot.deriv. 50 TU/ML Vial 5 ML ID (10:39)
[2020-12-21 11:10] LABS: Bedside Glucose 210 mg/dL (70-110)
[2020-12-21 14:22] VITALS: BP 144/52; PULSE 54; RESP 20; TEMP 36.3; O2SAT 99
--- NOTE | 2020-12-21 15:50 | NURSING ---
PT STATED SHE TALKS TO FAMILY EVERY OTHER DAY AND TELLS THEM HOW SHES DOING.
[2020-12-21 16:36] LABS: Bedside Glucose 213 mg/dL (70-110)
[2020-12-21] MEDS: oxyCODONE 5 MG Tablet PO ×2 (17:47→23:43)
[2020-12-21 19:46] VITALS: BP 144/64; PULSE 69
[2020-12-21] MEDS: Metoprolol Tartrate 25 MG Tablet PO (19:46)
[2020-12-21] MEDS: Atorvastatin Calcium 80 MG Tablet PO (19:46)
[2020-12-21] MEDS: Albuterol Sulfate 8 gm Inhaler (60 puffs) 2 PUFF INHALATION (20:02)
[2020-12-21 21:31] LABS: Bedside Glucose 172 mg/dL (70-110)
[2020-12-22] MEDS: 0.9% Normal Saline 1,000 ML 60 ML IV ×2 (00:32→17:22)
[2020-12-22] MEDS: oxyCODONE 5 MG Tablet PO (04:27)
[2020-12-22] MEDS: Fluticasone/Salmeterol 232-14 Inhaler 1 PUFF IH ×2 (04:29→17:24)
[2020-12-22] MEDS: Pantoprazole Sodium 40 MG Tablet PO (04:30)
[2020-12-22] MEDS: Amiodarone 200 MG Tablet PO (04:30)
[2020-12-22] MEDS: Fluticasone 0.05% 1 SPRAY NASAL.SRY 2 SPRAY NASAL (04:30)
[2020-12-22] MEDS: Cyanocobalamin 500 MCG Tablet 1000 MCG PO (04:30)
[2020-12-22] MEDS: Lisinopril 10 MG Tablet PO (04:30)
[2020-12-22] MEDS: Paroxetine 20 MG Tablet 40 MG PO (04:31)
[2020-12-22] MEDS: Pramipexole Di-HCl 1 MG Tablet PO ×2 (04:31→17:24)
[2020-12-22] MEDS: Menthol/Lanolin/Calamine/Znox 113 GM Tube 1 APPLIC TOPICAL ×2 (04:31→23:02)
[2020-12-22] MEDS: Iron Polysaccharide Complex 150 MG CAPSULE PO (04:31)
[2020-12-22] MEDS: Glucerna Shake 120 ML LIQUID PO ×4 (04:31→23:01)
[2020-12-22] MEDS: Levothyroxine 25 MCG TABLET PO (04:31)
[2020-12-22] MEDS: Nystatin Powder 15gm Bottle 1 APPLIC TOPICAL ×2 (04:32→23:02)
[2020-12-22 04:36] VITALS: BP 152/59; PULSE 59; RESP 18; TEMP 36.6; O2SAT 91
[2020-12-22] MEDS: Umeclidinium Bromide Inhaler 1 PUFF IH (04:53)
[2020-12-22 06:21] LABS: Bedside Glucose 154 mg/dL (70-110)
[2020-12-22] MEDS: Insulin Lispro 100 UNIT/ML INSULN.PEN 8 UNIT SC ×3 (08:16→17:25)
[2020-12-22] MEDS: Calcium Carb/Vitamin D 1 TABLET Tablet PO (08:19)
[2020-12-22] MEDS: Potassium Chloride Oral Tablet 10 MEQ PO ×2 (08:19→17:24)
[2020-12-22 10:12] VITALS: PULSE 54
[2020-12-22] MEDS: Furosemide 40 MG Tablet PO ×2 (10:12→17:24)
[2020-12-22] MEDS: Metoprolol Tartrate 25 MG Tablet PO ×2 (10:12→23:00)
[2020-12-22 11:16] LABS: Bedside Glucose 208 mg/dL (70-110)
[2020-12-22 11:22] VITALS: O2SAT 96
[2020-12-22 13:57] VITALS: BP 133/58; PULSE 57; RESP 16; TEMP 36.5; O2SAT 94
--- NOTE | 2020-12-22 16:02 | CHAPLAIN ---
Type of Pastoral Visit _x__ Initial Visit ___ Follow-up Visit ___ On-call Visit ___ General Patient Visit ___ Spiritual Assessment ___ Family Conference ___ Bereavement ___ Rapid Response ___ Code Blue ___ Other (describe below) Pastoral Care Referral From _x__ Patient ___ Family ___ Nurse ___ Physician ___ Biomass Plant Manager ___ Ruffling Hemmer Automatic ___ Other (describe below) Sacrament/Intervention _x__ Active listening ___ Anointing ___ Zoroastrian ___ Bereavement ___ Communion ___ Roslyn exploration ___ _x__ Life review _x__ Prayer ___ Reconciliation ___ Sacrament of Sick _x__ Supportive presence ___ Wedding ___ Other (describe below) Pastoral Comments patient states she welcomes the prayers and support; pt gives some life review and how she is coping with admission/illness; pt expresses thankfulness for great staff who are all very helpful
[2020-12-22] MEDS: Senna/Docusate Sodium 1 Tablet PO (17:25)
[2020-12-22 17:41] LABS: Bedside Glucose 104 mg/dL (70-110)
--- NOTE | 2020-12-22 20:41 | NURSING ---
Addendum entered by Quin Lobato 12/23/20 05:27: Patient moved to a closer room to the nurse station daughter aware of the room move. No more hallucination and trying to get out of bed during the night. Patient has a wallet her locked in the med box with credit cards in it but no wilson noted. Rn aware. Original Note: Patient sitting at the edge of bed and states, not at the hospital I have been discharge from the hospital. My bills are not getting paid and my money is missing. I need for my bills to get paid because they have never been late or not paid. Patient states, my purse is missing and I had Delores take my coat and purse and put it away it has $600 dollars in it. This nurse reinsure this patient that she was at the hospital and the patient told me not she wasn't. Patient wanted to speak with her daughter so this nurse called the patient daughter for her to speak with her.
[2020-12-22 22:11] LABS: Bedside Glucose 99 mg/dL (70-110)
[2020-12-22 23:00] VITALS: PULSE 70
[2020-12-22] MEDS: Atorvastatin Calcium 80 MG Tablet PO (23:01)
[2020-12-23 05:00] VITALS: BP 173/80; PULSE 62; RESP 18; TEMP 36.8; O2SAT 93
[2020-12-23] MEDS: Pramipexole Di-HCl 1 MG Tablet PO ×2 (05:37→17:16)
[2020-12-23] MEDS: Senna/Docusate Sodium 1 Tablet PO (05:37)
[2020-12-23] MEDS: Iron Polysaccharide Complex 150 MG CAPSULE PO (05:37)
[2020-12-23] MEDS: Lisinopril 10 MG Tablet PO (05:37)
[2020-12-23] MEDS: Pantoprazole Sodium 40 MG Tablet PO (05:37)
[2020-12-23] MEDS: Cyanocobalamin 500 MCG Tablet 1000 MCG PO (05:37)
[2020-12-23] MEDS: Levothyroxine 25 MCG TABLET PO (05:37)
[2020-12-23] MEDS: Amiodarone 200 MG Tablet PO (05:37)
[2020-12-23] MEDS: Polyethylene Glycol 3350 17 GM PACKET PO (05:38)
[2020-12-23] MEDS: Menthol/Lanolin/Calamine/Znox 113 GM Tube 1 APPLIC TOPICAL ×2 (05:38→19:54)
[2020-12-23] MEDS: Glucerna Shake 120 ML LIQUID PO ×4 (05:39→19:54)
[2020-12-23] MEDS: Paroxetine 20 MG Tablet 40 MG PO (05:40)
[2020-12-23] MEDS: Umeclidinium Bromide Inhaler 1 PUFF IH (05:41)
[2020-12-23] MEDS: Fluticasone 0.05% 1 SPRAY NASAL.SRY 2 SPRAY NASAL (05:42)
[2020-12-23] MEDS: Nystatin Powder 15gm Bottle 1 APPLIC TOPICAL ×2 (05:44→19:55)
[2020-12-23] MEDS: Fluticasone/Salmeterol 232-14 Inhaler 1 PUFF IH ×2 (05:44→17:17)
[2020-12-23 06:26] LABS: Bedside Glucose 131 mg/dL (70-110)
[2020-12-23 06:51] VITALS: O2SAT 93
[2020-12-23] MEDS: Insulin Lispro 100 UNIT/ML INSULN.PEN 8 UNIT SC ×2 (08:05→11:38)
[2020-12-23] MEDS: Folic Acid 1 MG Tablet PO (08:05)
[2020-12-23] MEDS: Furosemide 40 MG Tablet PO ×2 (08:06→17:15)
[2020-12-23] MEDS: Calcium Carb/Vitamin D 1 TABLET Tablet PO (08:06)
[2020-12-23] MEDS: Potassium Chloride Oral Tablet 10 MEQ PO ×2 (08:06→17:16)
[2020-12-23 08:08] VITALS: PULSE 65
[2020-12-23] MEDS: Metoprolol Tartrate 25 MG Tablet PO ×2 (08:08→19:54)
--- NOTE | 2020-12-23 10:05 | MDS.RN ---
Information for the mds was obtained from review of the clinical record, interview of resident, staff, and direct observation of resident's care.
[2020-12-23 10:30] VITALS: RESP 18
[2020-12-23 11:20] LABS: Bedside Glucose 130 mg/dL (70-110)
[2020-12-23] MEDS: 0.9% Normal Saline 1,000 ML 60 ML IV (11:36)
[2020-12-23] MEDS: oxyCODONE 5 MG Tablet PO ×2 (11:36→19:54)
[2020-12-23 14:24] VITALS: BP 110/53; PULSE 54; RESP 20; TEMP 36.9; O2SAT 90
[2020-12-23 16:36] LABS: Bedside Glucose 73 mg/dL (70-110)
[2020-12-23 19:54] VITALS: PULSE 58
[2020-12-23] MEDS: Atorvastatin Calcium 80 MG Tablet PO (19:54)
[2020-12-23 21:11] LABS: Bedside Glucose 160 mg/dL (70-110)
[2020-12-24] VITALS (8 sets, daily range): BP systolic 148–155; BP diastolic 55–65; PULSE 59–72; RESP 18–20; TEMP 36.2–37; O2SAT 92–93
--- NOTE | 2020-12-24 01:41 | NURSING ---
Patient rang and started yelling, get this person out of here before i kick her in the face. When this Nurse and ELECTRONIC WARFARE TECHNICIAN entered room, Patient stated, she was squeezing and hitting my feet just to hurt me. She ran out as soon as I turned the light on. Reoriented patient and advised her that no one has been into her room other than myself and ELECTRONIC WARFARE TECHNICIAN's. 1:1 given to patient. Patient repositioned in a position of comfort.
[2020-12-24] MEDS: Fluticasone 0.05% 1 SPRAY NASAL.SRY 2 SPRAY NASAL (05:25)
[2020-12-24] MEDS: Fluticasone/Salmeterol 232-14 Inhaler 1 PUFF IH ×2 (05:25→17:23)
[2020-12-24] MEDS: Umeclidinium Bromide Inhaler 1 PUFF IH (05:25)
[2020-12-24] MEDS: Pantoprazole Sodium 40 MG Tablet PO (05:26)
[2020-12-24] MEDS: Levothyroxine 25 MCG TABLET PO (05:26)
[2020-12-24] MEDS: Polyethylene Glycol 3350 17 GM PACKET PO (05:26)
[2020-12-24] MEDS: Pramipexole Di-HCl 1 MG Tablet PO ×2 (05:26→17:24)
[2020-12-24] MEDS: Cyanocobalamin 500 MCG Tablet 1000 MCG PO (05:26)
[2020-12-24] MEDS: Amiodarone 200 MG Tablet PO (05:26)
[2020-12-24] MEDS: Paroxetine 20 MG Tablet 40 MG PO (05:26)
[2020-12-24] MEDS: Lisinopril 10 MG Tablet PO (05:26)
[2020-12-24] MEDS: Senna/Docusate Sodium 1 Tablet PO ×2 (05:26→17:24)
[2020-12-24] MEDS: Iron Polysaccharide Complex 150 MG CAPSULE PO (05:26)
[2020-12-24] MEDS: 0.9% Normal Saline 1,000 ML 60 ML IV ×2 (05:30→22:47)
[2020-12-24] MEDS: Glucerna Shake 120 ML LIQUID PO ×4 (05:31→22:43)
[2020-12-24] MEDS: Menthol/Lanolin/Calamine/Znox 113 GM Tube 1 APPLIC TOPICAL ×2 (05:33→22:11)
[2020-12-24] MEDS: Nystatin Powder 15gm Bottle 1 APPLIC TOPICAL ×2 (05:35→22:13)
[2020-12-24 06:26] LABS: Bedside Glucose 227 mg/dL (70-110)
[2020-12-24] MEDS: Insulin Lispro 100 UNIT/ML INSULN.PEN 8 UNIT SC ×3 (07:44→17:21)
[2020-12-24] MEDS: Folic Acid 1 MG Tablet PO (07:45)
[2020-12-24] MEDS: Calcium Carb/Vitamin D 1 TABLET Tablet PO (07:45)
[2020-12-24] MEDS: Potassium Chloride Oral Tablet 10 MEQ PO ×2 (07:45→17:21)
[2020-12-24] MEDS: Furosemide 40 MG Tablet PO ×2 (10:53→17:23)
[2020-12-24] MEDS: Metoprolol Tartrate 25 MG Tablet PO ×2 (10:53→22:12)
--- NOTE | 2020-12-24 11:12 | PT ---
Pt hallucinating and very difficult to redirect. Pt pointing under her bed and asking this EARLY CHILDHOOD TEACHER ASSISTANT if she could see the boy under her bed. Reoriented pt and reminded her she was in the hospital and no one was under her bed. Pt also talking about feeding the animals this morning and asking why people keep bringing her food. It's 8:00 at night. Again reoriented pt to time and place. Pt was able to perform 1 transfer but then was unable to focus on additional tasks given. Pt's sister then called. Pt was given phone but then needed repeated cueing to talk on the phone. Reported to COUNTER CONTROL OPERATOR. COUNTER CONTROL OPERATOR also present in room to witness pt's confusion.
[2020-12-24 11:21] LABS: Bedside Glucose 214 mg/dL (70-110)
--- NOTE | 2020-12-24 11:34 | PT ---
Pt had O2 off when this SPRAY GUN OPERATOR entered room. Her SPO2 was 66%. Reapplied nasal cannula and SPO2 increased to 91% after 1-2 minutes. Reported to DIRECTOR DATABASE.
--- NOTE | 2020-12-24 11:45 | NURSING ---
Pt still having delusional thinking and hallucinations. Pt was talking to a lady in her ceiling this morning. Pt see's Dr. Gutierrez per daughter report for blood disorder. This nurse talked with Dr. Gutierrez's office and states she is seen for iron deficient anemia, and lupus anticoagulant disorder, but just see's him yearly. VS WNL, SPo2 93% via 4 liters NC. RN aware.
[2020-12-24] MEDS: oxyCODONE 5 MG Tablet PO (13:54)
[2020-12-24 16:20] LABS: Bedside Glucose 166 mg/dL (70-110)
[2020-12-24 21:36] LABS: Bedside Glucose 93 mg/dL (70-110)
[2020-12-24 21:36] LABS: Bedside Glucose 56 mg/dL (70-110)
[2020-12-24] MEDS: Atorvastatin Calcium 80 MG Tablet PO (22:12)
--- NOTE | 2020-12-24 23:13 | NURSING ---
Patient's blood sugar low at evening check, result 56. Patient awake, oriented, drank juice with extra sugar added. Re-check blood sugar was 93 15 minutes later.
[2020-12-25] VITALS (8 sets, daily range): BP systolic 133–145; BP diastolic 58–71; PULSE 51–60; RESP 14–18; TEMP 36.6–36.8; O2SAT 90–96
[2020-12-25 01:41] LABS: Bedside Glucose 88 mg/dL (70-110)
[2020-12-25] MEDS: oxyCODONE 5 MG Tablet PO ×3 (02:56→17:12)
[2020-12-25] MEDS: Paroxetine 20 MG Tablet 40 MG PO (05:14)
[2020-12-25] MEDS: Polyethylene Glycol 3350 17 GM PACKET PO (05:14)
[2020-12-25] MEDS: Cyanocobalamin 500 MCG Tablet 1000 MCG PO (05:14)
[2020-12-25] MEDS: Pramipexole Di-HCl 1 MG Tablet PO ×2 (05:15→17:16)
[2020-12-25] MEDS: Lisinopril 10 MG Tablet PO (05:15)
[2020-12-25] MEDS: Amiodarone 200 MG Tablet PO (05:15)
[2020-12-25] MEDS: Pantoprazole Sodium 40 MG Tablet PO (05:15)
[2020-12-25] MEDS: Levothyroxine 25 MCG TABLET PO (05:15)
[2020-12-25] MEDS: Senna/Docusate Sodium 1 Tablet PO ×2 (05:15→17:16)
[2020-12-25] MEDS: Menthol/Lanolin/Calamine/Znox 113 GM Tube 1 APPLIC TOPICAL ×2 (05:16→22:22)
[2020-12-25] MEDS: Iron Polysaccharide Complex 150 MG CAPSULE PO (05:16)
[2020-12-25] MEDS: Fluticasone 0.05% 1 SPRAY NASAL.SRY 2 SPRAY NASAL (05:17)
[2020-12-25] MEDS: Nystatin Powder 15gm Bottle 1 APPLIC TOPICAL ×2 (05:18→22:22)
[2020-12-25] MEDS: Fluticasone/Salmeterol 232-14 Inhaler 1 PUFF IH ×2 (05:19→17:18)
[2020-12-25] MEDS: Glucerna Shake 120 ML LIQUID PO ×4 (05:23→22:14)
[2020-12-25] MEDS: Umeclidinium Bromide Inhaler 1 PUFF IH (05:24)
[2020-12-25 06:25] LABS: Bedside Glucose 97 mg/dL (70-110)
[2020-12-25] MEDS: Insulin Lispro 100 UNIT/ML INSULN.PEN 8 UNIT SC ×3 (08:46→17:20)
[2020-12-25] MEDS: Calcium Carb/Vitamin D 1 TABLET Tablet PO (08:47)
[2020-12-25] MEDS: Folic Acid 1 MG Tablet PO (08:47)
[2020-12-25] MEDS: Potassium Chloride Oral Tablet 10 MEQ PO ×2 (08:49→17:14)
[2020-12-25] MEDS: Furosemide 40 MG Tablet PO ×2 (09:32→17:15)
[2020-12-25 11:06] LABS: Bedside Glucose 145 mg/dL (70-110)
[2020-12-25] MEDS: 0.9% Normal Saline 1,000 ML 60 ML IV (15:51)
[2020-12-25 16:36] LABS: Bedside Glucose 132 mg/dL (70-110)
--- NOTE | 2020-12-25 16:37 | NURSING ---
IN TO SEE PT.
--- NOTE | 2020-12-25 17:01 | PCM.PROGNOTE ---
Patient Problems: Active and Suspected Problems (Last Reviewed 12/10/20 @ 11:[address] Brown Vargas MD) Fracture of right great toe (Acute) Cellulitis of right leg (Acute) Debility (Acute) Acute kidney injury (Acute) Subjective: Patient seen and examined resting comfortably. Patient denies any new pedal complaints. Patient denies any nausea, fever, chills, chest pain, shortness of breath, cough, streaking, purulence, vomiting. Patient complains of pain to left and right feet. States that it comes and goes. Is discusses that it feels burning very sensitive to touch. - Physical Exam Vitals/I&O's: Vital Signs Temp Pulse Resp BP Pulse Ox 98.2 F 51 L 18 133/58 H 96 12/25/20 13:34 12/25/20 13:34 12/25/20 13:34 12/25/20 13:34 12/25/20 13:34 Oxygen Flow Rate (L/min) 5 Oxygen Delivery Method Nasal Cannula Weight: 82.582 kg Body Mass Index (BMI) 36.5 Finger Stick Blood Glucose 112 Intake and Output for Last 24 Hours 12/23/20 12/24/20 12/25/20 23:59 23:59 23:59 Intake Total 1780 / 1780 2240 / 2240 1480 / 1480 Output Total 300 / 300 600 / 600 350 / 350 Balance 1480 / 1480 1640 / 1640 1130 / 1130 General: Alert, Oriented x3 HEENT: Atraumatic Abdomen: Obese Extremities: No clubbing, No cyanosis, No edema, Capillary Refill Less than 3 Seconds, No Calf Tenderness, Diminished Peripheral Pulses, Tenderness - Tenderness to palpation to the dorsal left midfoot. As well as with range of motion of the midtarsal joints. No edema no pinpoint tenderness. No signs of infection. Skin: Ulcer/ Wound - Wound to right great toe at nail avulsion site is largely healed but some signs of ulceration still remain. Continue dressing changes. No signs of infection. No erythema or edema. Minimal sanguinous drainage noted., - - Dry skin noted to bilateral heels with some fissuring noted. There is no callus buildup present. No pain to palpation of fissured areas. Musculoskeletal: Tenderness - Right great toe and left dorsal midfoot Neurological: - - Decreased epicritic sensation Psych/Mental Status: Normal Affect, Appropriate Laboratory Results 12/24/20 21:12: POC Glucose 56 L 12/24/20 21:32: POC Glucose 93 12/25/20 01:26: POC Glucose 88 12/25/20 06:15: POC Glucose 97 12/25/20 10:49: POC Glucose 145 H 12/25/20 16:24: POC Glucose 132 H Current Medications Acetaminophen (Acetaminophen 500 Mg Tablet) 1,000 mg PO Q6H PRN PRN PRN Reason: Pain Score 1-5 Last Admin: 12/21/20 19:49 Dose: 1,000 mg Documented by: Albuterol Sulfate (Albuterol Sulfate 8 Gm Inhaler (60 Puffs)) 2 puff INHALATION Q6H PRN PRN PRN Reason: SOB &/OR WHEEZING Last Admin: 12/21/20 20:02 Dose: 2 puff Documented by: Amiodarone HCl (Amiodarone 200 Mg Tablet) 200 mg PO DAILY [facility] Last Admin: 12/25/20 05:15 Dose: 200 mg Documented by: Atorvastatin Calcium (Atorvastatin Calcium 80 Mg Tablet) 80 mg PO QHS [facility] Last Admin: 12/24/20 22:12 Dose: 80 mg Documented by: Bisacodyl (Bisacodyl 5 Mg Tablet) 10 mg PO DAILY PRN PRN Reason: Constipation Calamine/Phenol (Menthol/Lanolin/Calamine/Znox 113 Gm Tube) 1 applic TOPICAL 0600,2200 [facility]; Protocol Last Admin: 12/25/20 05:16 Dose: 1 applicatio Documented by: Calcium/Vitamin D (Calcium Carb/Vitamin D 1 Tablet Tablet) [facility] Last Admin: 12/25/20 08:47 Dose: 1 tablet Documented by: Cyanocobalamin (Cyanocobalamin 500 Mcg Tablet) 1,000 mcg PO DAILY [facility] Last Admin: 12/25/20 05:14 Dose: 1,000 mcg Documented by: Emollient Ointment (Emollient Combination No.72 500 Ml Lotion) 1 applic TOPICAL [facility]; Protocol Last Admin: 12/24/20 22:11 Dose: 1 applicatio Documented by: Fluticasone Propionate (Fluticasone 0.05% 1 [place] Nasal.Sry) 2 spray NASAL DAILY [facility] Last Admin: 12/25/20 05:17 Dose: 2 spray Documented by: Folic Acid (Folic Acid 1 Mg Tablet) 1 mg PO DAILY@0800 [facility] Last Admin: 12/25/20 08:47 Dose: 1 mg Documented by: Furosemide (Furosemide 40 Mg Tablet) 40 mg PO BID@1000,1800 [facility] Last Admin: 12/25/20 09:32 Dose: 40 mg Documented by: Sodium Chloride () 1,000 mls @ 60 mls/hr IV .[id number] [facility] Last Admin: 12/25/20 15:51 Dose: 60 mls/hr Documented by: Insulin Glargine (Insulin Glargine 100 Units/Ml Pen) 15 units SC BREAKFAST [facility] Last Admin: 12/25/20 08:51 Dose: 15 u Documented by: Insulin Human Lispro (Insulin Lispro 100 Unit/Ml Insuln.Pen) 8 unit SC TIDCM [facility] Last Admin: 12/25/20 11:46 Dose: 8 u Documented by: Lactobacillus Acidophilus (Lactobacillus Acidophilus) 1 tablet PO DAILY [facility] Last Admin: 12/25/20 05:16 Dose: 1 tablet Documented by: Levothyroxine Sodium (Levothyroxine 25 Mcg Tablet) 25 mcg PO DAILY [facility] Last Admin: 12/25/20 05:15 Dose: 25 mcg Documented by: Lisinopril (Lisinopril 10 Mg Tablet) 10 mg PO DAILY [facility] Last Admin: 12/25/20 05:15 Dose: 10 mg Documented by: Magnesium Hydroxide (Magnesium Hydroxide 30 Ml Udc) 30 ml PO DAILY PRN PRN Reason: Constipation Metoprolol Tartrate (Metoprolol Tartrate 25 Mg Tablet) 25 mg PO 1000,2200 [facility] Last Admin: 12/25/20 09:31 Dose: Not Given Documented by: Nitroglycerin (Nitroglycerin (Inpatient Use) 0.4 Mg Tab.Subl) 0.4 mg SUBLINGUAL Q5M PRN PRN Reason: CARDIAC/CHEST PAIN Last Admin: 12/18/20 12:16 Dose: 0.4 mg Documented by: Nutritional Formula (Lactose Free) (Glucerna Shake 120 Ml Liquid) 120 ml PO 4X/DAY [facility] Last Admin: 12/25/20 11:45 Dose: 120 ml Documented by: Nystatin (Nystatin Powder 15gm Bottle) 1 applic TOPICAL 0600,2200 [facility]; Protocol Last Admin: 12/25/20 05:18 Dose: 1 applicatio Documented by: Ondansetron HCl (Ondansetron Odt 4 Mg Tablet) 4 mg PO Q8H PRN PRN PRN Reason: NAUSEA Oxycodone HCl (Oxycodone 5 Mg Tablet) 5 mg PO Q4H PRN PRN PRN Reason: Pain Score 6-10 Last Admin: 12/25/20 09:35 Dose: 5 mg Documented by: Pantoprazole Sodium (Pantoprazole Sodium 40 Mg Tablet) 40 mg PO DAILY [facility] Last Admin: 12/25/20 05:15 Dose: 40 mg Documented by: Paroxetine HCl (Paroxetine 20 Mg Tablet) 40 mg PO DAILY [facility] Last Admin: 12/25/20 05:14 Dose: 40 mg Documented by: Polyethylene Glycol (Polyethylene Glycol 3350 17 Gm Packet) 17 gm PO DAILY [facility] Last Admin: 12/25/20 05:14 Dose: 17 gm Documented by: Polysaccharide Iron Complex (Iron Polysaccharide Complex 150 Mg Capsule) 150 mg PO DAILY [facility] Last Admin: 12/25/20 05:16 Dose: 150 mg Documented by: Potassium Chloride (Potassium Chloride Oral Tablet 10 Meq) 10 meq PO BIDCM [facility] Last Admin: 12/25/20 08:49 Dose: 10 meq Documented by: Pramipexole Dihydrochloride (Pramipexole Di-Hcl 1 Mg Tablet) 1 mg PO BID [facility] Last Admin: 12/25/20 05:15 Dose: 1 mg Documented by: Fluticasone/Salmeterol (Fluticasone/Salmeterol 232-14 Inhaler) 1 puff IH Q12 [facility] Last Admin: 12/25/20 05:19 Dose: 1 puff Documented by: Senna/Docusate Sodium (Senna/Docusate Sodium 1 Tablet) 1 tablet PO BID [facility] Last Admin: 12/25/20 05:15 Dose: 1 tablet Documented by: Sodium Chloride (0.9% Saline Lock 10 Ml Syringe) 10 - 40 ml IV UD PRN PRN Reason: SALINE FLUSH Umeclidinium [place] (Umeclidinium [place] Inhaler) 1 puff IH DAILY [facility] Last Admin: 12/25/20 05:24 Dose: 1 puff Documented by: Zolpidem Tartrate (Zolpidem Tartrate 5 Mg Tablet) 5 mg PO QHS PRN PRN PRN Reason: INSOMNIA Medical Necessity - Tobacco Use Smoking Status: Former smoker Tobacco Use: Non-smoker Assessment/Plan All Active Problems (Last Reviewed 12/10/20 @ 11:[address] Brown Vargas MD) Other specified peripheral vascular diseases (Acute) Fracture of right great toe (Acute) Cellulitis of right leg (Acute) Debility (Acute) Acute kidney injury (Acute) Right 1st toe distal phalanx fracture - open, w/ laceration down to bone and lysis of the 1st toenail - healing well Cellulitis right foot - resolved Diabetes with peripheral neuropathy Peripheral vascular disease Multiple comorbidities Reviewed and discussed case. Healing noted. Culture has been obtained right 1st toe - serratia, klebsiella, enterococcus. MRI neg for osteomyelitis. Blood cultures negative. Patient completed omnicef 300 daily and linezolid [address] Cordova. There is no evidence of infection to the foot or ankle bilaterally at this time. Vascular surgery / Dr. Vargas on consult. To change right foot dressing. Please first wash the toe gently with soap and water and then apply adaptic, hydrogel, and gauze daily to 1st toe and heels. There is dry skin with some fissuring noted to bilateral heels. No signs of open wounds or infection. The fissures can easily become that way though. Recommend offloading heels as much as possible when in bed with a pillow. No weightbearing right foot and WBAT left foot with surgical shoe. Patient also complains of pain to the dorsal left midfoot. X-rays are ordered for bilateral feet to assess this new pain and assess fracture healing. Medical management per primary team as noted. Podiatry will continue to follow weekly.
--- NOTE | 2020-12-25 17:03 | RAD_ITS ---
STUDY: X-RAY - RIGHT FOOT CLINICAL: Female, 75 years old. pain TECHNIQUE: 3 view(s) of the foot. COMPARISON: MRI 12/07/2020 FINDINGS: There is a plantar calcaneal spur. Degenerative narrowing of the first-third tarsal-metatarsal articulations with dorsal spurring. Diffuse osteopenia. There is degenerative arthrosis of the metatarsophalangeal joint of the hallux and second digit . Normal tibial and fibular sesamoid bones. Normal interphalangeal joint of the great toe. Redemonstration of first distal phalanx fracture with similar alignment. Normal second through fifth metatarsophalangeal joints. Normal interphalangeal joints and phalanges of the lesser toes. Vascular calcifications. Forefoot soft tissue swelling. RAD/Foot min 3 Views IMPRESSION: 1. Mild soft tissue swelling. No destructive/erosive bony process. 2. Stable first distal phalanx fracture. 3. Degenerative changes. Electronically Signed: Travis Ricks MD ([place]) at 22:23 EST , Service support ,
--- NOTE | 2020-12-25 18:00 | RAD_ITS ---
STUDY: X-RAY - LEFT FOOT CLINICAL: Female, 75 years old. pain TECHNIQUE: 3 view(s) of the foot. COMPARISON: 03/04/2017 FINDINGS: Normal talus, calcaneus, and tarsal bones. Degenerative narrowing and marginal spur formation of the tarsal-metatarsal articulations involving the first-third joints. There is diffuse osteopenia. There is degenerative arthrosis of the metatarsophalangeal joint of the hallux . Normal tibial and fibular sesamoid bones. Normal interphalangeal joint of the great toe. Normal phalanges of the great toe. Normal second through fifth metatarsophalangeal joints. Normal interphalangeal joints and phalanges of the lesser toes. Arterial vascular calcifications. There is soft tissue swelling of the forefoot. RAD/Foot min 3 Views IMPRESSION: No fracture or erosive process. Degenerative changes. Nonspecific soft tissue swelling of the forefoot. Electronically Signed: Travis Ricks MD ([place]) at 22:20 EST , Service support ,
[2020-12-25 21:31] LABS: Bedside Glucose 114 mg/dL (70-110)
[2020-12-25] MEDS: Atorvastatin Calcium 80 MG Tablet PO (22:16)
[2020-12-25] MEDS: Metoprolol Tartrate 25 MG Tablet PO (22:20)
[2020-12-26 05:00] VITALS: BP 146/61; PULSE 60; RESP 18; TEMP 36.9; O2SAT 90
[2020-12-26] MEDS: Amiodarone 200 MG Tablet PO (05:22)
[2020-12-26] MEDS: Paroxetine 20 MG Tablet 40 MG PO (05:22)
[2020-12-26] MEDS: Levothyroxine 25 MCG TABLET PO (05:22)
[2020-12-26] MEDS: Senna/Docusate Sodium 1 Tablet PO ×2 (05:22→18:20)
[2020-12-26] MEDS: Lisinopril 10 MG Tablet PO (05:22)
[2020-12-26] MEDS: Pantoprazole Sodium 40 MG Tablet PO (05:22)
[2020-12-26] MEDS: Iron Polysaccharide Complex 150 MG CAPSULE PO (05:22)
[2020-12-26] MEDS: Pramipexole Di-HCl 1 MG Tablet PO ×2 (05:22→18:22)
[2020-12-26] MEDS: Cyanocobalamin 500 MCG Tablet 1000 MCG PO (05:22)
[2020-12-26] MEDS: Glucerna Shake 120 ML LIQUID PO ×3 (05:23→21:30)
[2020-12-26] MEDS: Umeclidinium Bromide Inhaler 1 PUFF IH (05:24)
[2020-12-26] MEDS: Menthol/Lanolin/Calamine/Znox 113 GM Tube 1 APPLIC TOPICAL ×2 (05:25→21:35)
[2020-12-26] MEDS: Nystatin Powder 15gm Bottle 1 APPLIC TOPICAL ×2 (05:25→21:35)
[2020-12-26] MEDS: Polyethylene Glycol 3350 17 GM PACKET PO (05:26)
[2020-12-26] MEDS: Fluticasone 0.05% 1 SPRAY NASAL.SRY 2 SPRAY NASAL (05:26)
[2020-12-26 06:26] LABS: Bedside Glucose 146 mg/dL (70-110)
[2020-12-26 06:58] VITALS: O2SAT 91
[2020-12-26] MEDS: Fluticasone/Salmeterol 232-14 Inhaler 1 PUFF IH ×2 (08:07→18:22)
[2020-12-26] MEDS: Insulin Lispro 100 UNIT/ML INSULN.PEN 8 UNIT SC ×3 (08:09→18:20)
[2020-12-26] MEDS: Folic Acid 1 MG Tablet PO (08:09)
[2020-12-26] MEDS: Potassium Chloride Oral Tablet 10 MEQ PO ×2 (08:11→18:21)
[2020-12-26] MEDS: Calcium Carb/Vitamin D 1 TABLET Tablet PO (08:12)
[2020-12-26] MEDS: 0.9% Normal Saline 1,000 ML 60 ML IV (08:44)
[2020-12-26 10:03] VITALS: BP 145/74; PULSE 63
[2020-12-26] MEDS: Metoprolol Tartrate 25 MG Tablet PO (10:03)
[2020-12-26] MEDS: Furosemide 40 MG Tablet PO ×2 (10:03→18:21)
[2020-12-26 10:05] VITALS: BP 145/74; PULSE 63
[2020-12-26 11:00] LABS: Bedside Glucose 221 mg/dL (70-110)
--- NOTE | 2020-12-26 13:00 | CASEMGMT ---
Social Work Spoke with pt's dtr to discuss alternative DC plans and insurance. Explained insurance NRD 12/29 and continued stay is not guaranteed. Explained unsure how long insurance will approve but IDT recommending alternative DC plan. Pt is not safe to return home alone at this time. Pt already has Medicaid. Explained [facility] will cover SNF stay at 100%. Dtr stated she does not want pt in a SNF so she doesn't get COVID. Inquired about pt getting vaccine. Dtr stated pt doesn't usually like to take vaccines. Inquired about pt living with dtr as mentioned upon admit. Dtr stated she could have pt live with her, she would just need to coordinate pt's doctor's appts on the same day since the commute is about 3 hrs. Dtr stated she will need to discuss with pt and consider options. Encouraged to do that this weekend and notify SW 12/29 to provide outcome to insurance. Dtr expressed understanding. SW to continue to follow. Vera Waller, TRUNG SRW
[2020-12-26 13:30] VITALS: BP 130/55; PULSE 54; RESP 16; TEMP 36.3; O2SAT 95
[2020-12-26 16:20] LABS: Bedside Glucose 107 mg/dL (70-110)
[2020-12-26] MEDS: oxyCODONE 5 MG Tablet PO (21:30)
[2020-12-26 21:31] LABS: Bedside Glucose 89 mg/dL (70-110)
[2020-12-26 21:33] VITALS: BP 131/52; PULSE 56
[2020-12-26] MEDS: Atorvastatin Calcium 80 MG Tablet PO (21:33)
[2020-12-27] MEDS: 0.9% Normal Saline 1,000 ML 60 ML IV ×2 (01:27→18:10)
[2020-12-27 05:51] VITALS: BP 170/63; PULSE 57; RESP 18; TEMP 35.8; O2SAT 95
[2020-12-27] MEDS: Polyethylene Glycol 3350 17 GM PACKET PO (05:53)
[2020-12-27] MEDS: Fluticasone/Salmeterol 232-14 Inhaler 1 PUFF IH ×2 (05:54→17:31)
[2020-12-27] MEDS: Umeclidinium Bromide Inhaler 1 PUFF IH (05:54)
[2020-12-27] MEDS: Senna/Docusate Sodium 1 Tablet PO ×2 (05:56→17:31)
[2020-12-27] MEDS: Levothyroxine 25 MCG TABLET PO (05:56)
[2020-12-27] MEDS: Lisinopril 10 MG Tablet PO (05:56)
[2020-12-27] MEDS: Amiodarone 200 MG Tablet PO (05:56)
[2020-12-27] MEDS: Paroxetine 20 MG Tablet 40 MG PO (05:56)
[2020-12-27] MEDS: Pramipexole Di-HCl 1 MG Tablet PO ×2 (05:56→17:31)
[2020-12-27] MEDS: Pantoprazole Sodium 40 MG Tablet PO (05:56)
[2020-12-27] MEDS: Cyanocobalamin 500 MCG Tablet 1000 MCG PO (05:56)
[2020-12-27] MEDS: Iron Polysaccharide Complex 150 MG CAPSULE PO (05:57)
[2020-12-27] MEDS: Fluticasone 0.05% 1 SPRAY NASAL.SRY 2 SPRAY NASAL (05:57)
[2020-12-27] MEDS: Menthol/Lanolin/Calamine/Znox 113 GM Tube 1 APPLIC TOPICAL ×2 (05:59→20:03)
[2020-12-27] MEDS: Nystatin Powder 15gm Bottle 1 APPLIC TOPICAL ×2 (05:59→20:30)
[2020-12-27] MEDS: Glucerna Shake 120 ML LIQUID PO ×4 (06:00→20:03)
[2020-12-27 06:26] LABS: Bedside Glucose 76 mg/dL (70-110)
[2020-12-27 07:15] LABS: Hematocrit 30.1 % (37-47); Hemoglobin 8.6 g/dL (12.0-15.0); Mean Corp Hgb Conc 28.6 g/dL (32-36); Mean Corpuscular Hgb 26.7 pg (27.0-32.0); Mean Corpuscular Volume 93.5 fL (81-99); Mean Platelet Vol. 12.3 fl (6.2-12.0); POSITIVE COUNT YES; POSITIVE MORPHOLOGY YES; Platelet Count 459 K/mm3 (150-450); RBC Distribution Width CV 20.5 % (11.6-14.6); RBC Distribution Width SD 67.7 fl (35.1-43.9); Red Blood Count 3.22 M/mm3 (4.2-5.4)
[2020-12-27 07:26] LABS: Differential Indicated MANUAL DIFF
[2020-12-27 07:39] LABS: Anion Gap 6 (5-15); BUN 31 mg/dL (7-18); BUN/Creat Ratio 25.2 RATIO (10-20); Calcium,Total 8.2 mg/dL (8.5-10.1); Chloride 103 mmol/L (98-107); Creatinine, Serum 1.23 mg/dL (0.55-1.02); EST Glomerular Filtration Rate 45 mL/min (>60); Est Glom Filt Rate - Afr Amer 55 mL/min (>60); Estimated Creatinine Clearance 52.31 ml/min; Glucose 68 mg/dL (74-106); Potassium 4.9 mmol/L (3.5-5.1); Sodium Level 139 mmol/L (136-145)
[2020-12-27 07:50] LABS: Eosinophil 1 % (0-5); Lymphocyte 20 % (19-41); Metamyelocyte 1 % (0-1); Monocyte 15 % (0-10); Neutrophil-Band 1 % (0-5); Neutrophil-Segmented 61 % (47-70); Nucleated Red Bld Cells,Manual 3 % (0-5); Promyelocyte 1 (0-0); Total Cells Counted 100 (MANUAL DIFF)
[2020-12-27 07:51] LABS: Hypochromasia 1+; Platelet Estimate SLT INC (ADEQ); White Blood Count 9.3 K/mm3 (4.4-11.0)
[2020-12-27 07:52] LABS: Absolute Neutrophil Count 5.7 X10^3/uL (2.0-7.7)
[2020-12-27 07:53] LABS: Absolute Lymphocyte Count 1.85 X10^3/uL (0.83-4.51)
[2020-12-27] MEDS: Insulin Lispro 100 UNIT/ML INSULN.PEN 8 UNIT SC (08:44)
[2020-12-27] MEDS: Potassium Chloride Oral Tablet 10 MEQ PO ×2 (08:46→17:30)
[2020-12-27] MEDS: Calcium Carb/Vitamin D 1 TABLET Tablet PO (08:46)
[2020-12-27] MEDS: Folic Acid 1 MG Tablet PO (08:46)
[2020-12-27 09:10] VITALS: PULSE 57
[2020-12-27] MEDS: Furosemide 40 MG Tablet PO ×2 (09:10→17:30)
[2020-12-27] MEDS: Metoprolol Tartrate 25 MG Tablet PO ×2 (09:10→20:02)
[2020-12-27 10:00] VITALS: PULSE 52; O2SAT 96
[2020-12-27 10:21] LABS: Bedside Glucose 204 mg/dL (70-110)
[2020-12-27 13:01] VITALS: O2SAT 93
[2020-12-27 13:28] VITALS: BP 119/55; PULSE 51; RESP 18; TEMP 36.6; O2SAT 90
--- NOTE | 2020-12-27 15:48 | NURSING ---
Pt IV dressing peeling up, new tegaderm placed at this time. SL still patent, pt tolerated well.
[2020-12-27 16:30] LABS: Bedside Glucose 149 mg/dL (70-110)
[2020-12-27 20:02] VITALS: PULSE 53
[2020-12-27] MEDS: Atorvastatin Calcium 80 MG Tablet PO (20:03)
[2020-12-27] MEDS: Zolpidem Tartrate 5 MG Tablet PO (20:50)
[2020-12-27] MEDS: oxyCODONE 5 MG Tablet PO (20:50)
[2020-12-27 21:50] LABS: Bedside Glucose 191 mg/dL (70-110)
[2020-12-28 05:00] VITALS: BP 151/84; PULSE 65; RESP 24; TEMP 37.5; O2SAT 94
[2020-12-28 05:56] LABS: Bedside Glucose 78 mg/dL (70-110)
[2020-12-28 06:11] LABS: Allen Test Positive; Base Excess -6 mmol/L (-2 to +2); Blood Gas Specimen Type ART; FI02 100; O2 Delivery Device NRB; PO2 63 mmHG (75-100); SITE L Radial; SO2 90 % (95-99); Total Carbon Dioxide 21 mmol/L; pCO2 38.5 mmHg (35-45); pH 7.32 (7.35-7.45)
--- NOTE | 2020-12-28 06:15 | RRT_ITS ---
Rapid Response Note Rapid response was called for respiratory distress/hypoxia. Patient has history of COPD, chronic diastolic heart failure and is on Lasix 40 mg p.o. twice daily. She also has history of TAVR, left artery stenosis and chronic right bundle branch block. Patient had Ambien 5 mg new ideation and is on oxycodone 5 mg p.o. every 4 hourly, lisinopril and cefdinir for toe infection. On exam Lower stridor, patient tongue is falling back and loud fluttering sound. Lungs: Air entry diminished bilateral. No expiratory rhonchi. Heart S1-S2 regular, with PVCs Neuro: Drowsy and lethargic. EKG shows sinus rhythm at 128 bpm, QTC 218 ms, DE interval 110 ms, PVCs with incomplete right bundle branch block. Defects in the EKG. ABG 7.3 // on 100% nonrebreather. As per the respiratory therapist, who has seen her before for many years her face looks more puffy, tongue swollen and seems more upper respiratory partial obstruction. Patient is also on Lasix and ABG suggestive of metabolic acidosis. IV fluid normal saline 100 mill per hour for 1 L. Hold morning dose of Lasix. ENT consult for partial upper respiratory obstruction, tongue swelling. Patient is on lisinopril for many years. Recently on Keflex for toe infection. There is no other rash. 1 dose of IV Solu-Medrol, Pepcid and Benadryl ordered. After that continue Benadryl, Pepcid and prednisone for [address] Connor for rapid response and might need to address CODE STATUS as patient is currently full code with multiple comorbidities and limited life expectancy. Might need to address Lasix depending on the fluid hemodynamics, kidney function and electrolytes. Suggest Lasix 40 mg daily for 1 or 2 days and then 40 twice daily. Patient had 1 dose of DuoNeb. Diagnosis: Acute hypoxic respiratory failure mostly due to partial upper airway obstruction/tongue swelling exact etiology unclear possible allergic reaction Metabolic acidosis from Lasix Altered mental status, acute encephalopathy, metabolic from hypoxia. Patient Problems: Active and Suspected Problems (Last Reviewed 12/10/20 @ 11:[address] Brown Vargas MD) Fracture of right great toe (Acute) Cellulitis of right leg (Acute) Debility (Acute) Acute kidney injury (Acute) - Physical Exam Vitals/I&O's: Vital Signs Temp Pulse Resp BP Pulse Ox 97.9 F 53 L 18 119/55 L 90 12/27/20 13:28 12/27/20 20:02 12/27/20 13:28 12/27/20 13:28 12/27/20 13:28 Oxygen Flow Rate (L/min) 4 Oxygen Delivery Method Nasal Cannula Weight: 182 lb 1 oz Body Mass Index (BMI) 36.5 Finger Stick Blood Glucose 112 Intake and Output for Last 24 Hours 12/26/20 12/27/20 12/29/20 23:59 23:59 00:59 Intake Total 1840 / 1840 2840 / 2840 Output Total 550 / 550 Balance 1840 / 1840 2840 / 2840 -550 / -550 Laboratory Results 12/27/20 06:10: POC Glucose 76 12/27/20 06:22: WBC 9.3, RBC 3.22 L, Hgb 8.6 L, Hct 30.1 L, MCV 93.5, MCH 26.7 L , MCHC 28.6 L, RDW Std Deviation 67.7 H, RDW Coeff of Jeff 20.5 H, Plt Count 459 H, MPV 12.3 H, Neut % (Auto) Not Reportable, Absolute Neuts (auto) 5.7, Absolute Lymphs (auto) 1.85, Total Counted 100, Neutrophils % (Manual) 61, Band Neutrophils % 1, Lymphocytes % (Manual) 20, Monocytes % (Manual) 15 H, Eosinophils % (Manual) 1, Metamyelocytes % 1, Promyelocytes % 1 H, Nucleated RBCs/100 WBC 3, Diff Path Review May foll, Platelet Estimate SLT INC, Hypochromasia 1+ 12/27/20 06:22: Sodium 139, Potassium 4.9, Chloride 103, Carbon Dioxide 30.0, Anion Gap 6, BUN 31 H, Creatinine 1.23 H, Estim Creat Clear Calc 52.31, Est GFR (MDRD) Af Amer 55 L, Est GFR (MDRD) Non-Af 45 L, BUN/Creatinine Ratio 25.2 H, Glucose 68 L, Calcium 8.2 L 12/27/20 10:06: POC Glucose 204 H 12/27/20 16:21: POC Glucose 149 H 12/27/20 21:15: POC Glucose 191 H 12/28/20 05:49: POC Glucose 78 12/28/20 06:04: Specimen Type ART, Sample Site L Radial, pH 7.32 L, Bicarbonate Actual 20.0 L, Total CO2 21, Base Excess -6 L, O2 Saturation 90 L, O2 % 100, ABG pCO2 38.5, ABG pO2 63 L, [place] Test Positive, O2 Delivery Device NRB Current Medications Acetaminophen (Acetaminophen 500 Mg Tablet) 1,000 mg PO Q6H PRN PRN PRN Reason: Pain Score 1-5 Last Admin: 12/21/20 19:49 Dose: 1,000 mg Documented by: Albuterol Sulfate (Albuterol Sulfate 8 Gm Inhaler (60 Puffs)) 2 puff INHALATION Q6H PRN PRN PRN Reason: SOB &/OR WHEEZING Last Admin: 12/21/20 20:02 Dose: 2 puff Documented by: Amiodarone HCl (Amiodarone 200 Mg Tablet) 200 mg PO DAILY [facility] Last Admin: 12/27/20 05:56 Dose: 200 mg Documented by: Atorvastatin Calcium (Atorvastatin Calcium 80 Mg Tablet) 80 mg PO QHS [facility] Last Admin: 12/27/20 20:03 Dose: 80 mg Documented by: Bisacodyl (Bisacodyl 5 Mg Tablet) 10 mg PO DAILY PRN PRN Reason: Constipation Calamine/Phenol (Menthol/Lanolin/Calamine/Znox 113 Gm Tube) 1 applic TOPICAL 0600,2200 [facility]; Protocol Last Admin: 12/27/20 20:03 Dose: 1 applicatio Documented by: Calcium/Vitamin D (Calcium Carb/Vitamin D 1 Tablet Tablet) [facility] Last Admin: 12/27/20 08:46 Dose: 1 tablet Documented by: Cyanocobalamin (Cyanocobalamin 500 Mcg Tablet) 1,000 mcg PO DAILY [facility] Last Admin: 12/27/20 05:56 Dose: 1,000 mcg Documented by: Emollient Ointment (Emollient Combination No.72 500 Ml Lotion) 1 applic TOPICAL [facility]; Protocol Last Admin: 12/27/20 20:03 Dose: 1 applicatio Documented by: Fluticasone Propionate (Fluticasone 0.05% 1 [place] Nasal.Sry) 2 spray NASAL DAILY [facility] Last Admin: 12/27/20 05:57 Dose: 2 spray Documented by: Folic Acid (Folic Acid 1 Mg Tablet) 1 mg PO DAILY@0800 [facility] Last Admin: 12/27/20 08:46 Dose: 1 mg Documented by: Furosemide (Furosemide 40 Mg Tablet) 40 mg PO BID@1000,1800 [facility] Last Admin: 12/27/20 17:30 Dose: 40 mg Documented by: Sodium Chloride () 1,000 mls @ 60 mls/hr IV .[id number] [facility] Last Admin: 12/27/20 18:10 Dose: 60 mls/hr Documented by: Sodium Chloride () 1,000 mls @ 100 mls/hr IV .Q10H [facility] Stop: 12/28/20 16:14 Insulin Glargine (Insulin Glargine 100 Units/Ml Pen) 15 units SC BREAKFAST [facility] Last Admin: 12/27/20 08:46 Dose: 15 u Documented by: Lactobacillus Acidophilus (Lactobacillus Acidophilus) 1 tablet PO DAILY [facility] Last Admin: 12/27/20 05:57 Dose: 1 tablet Documented by: Levothyroxine Sodium (Levothyroxine 25 Mcg Tablet) 25 mcg PO DAILY [facility] Last Admin: 12/27/20 05:56 Dose: 25 mcg Documented by: Lisinopril (Lisinopril 10 Mg Tablet) 10 mg PO DAILY [facility] Last Admin: 12/27/20 05:56 Dose: 10 mg Documented by: Magnesium Hydroxide (Magnesium Hydroxide 30 Ml Udc) 30 ml PO DAILY PRN PRN Reason: Constipation Metoprolol Tartrate (Metoprolol Tartrate 25 Mg Tablet) 25 mg PO 1000,2200 [facility] Last Admin: 12/27/20 20:02 Dose: 25 mg Documented by: Nitroglycerin (Nitroglycerin (Inpatient Use) 0.4 Mg Tab.Subl) 0.4 mg SUBLINGUAL Q5M PRN PRN Reason: CARDIAC/CHEST PAIN Last Admin: 12/18/20 12:16 Dose: 0.4 mg Documented by: Nutritional Formula (Lactose Free) (Glucerna Shake 120 Ml Liquid) 120 ml PO 4X/DAY [facility] Last Admin: 12/27/20 20:03 Dose: 120 ml Documented by: Nystatin (Nystatin Powder 15gm Bottle) 1 applic TOPICAL 0600,2200 [facility]; Protocol Last Admin: 12/27/20 20:30 Dose: 1 applicatio Documented by: Ondansetron HCl (Ondansetron Odt 4 Mg Tablet) 4 mg PO Q8H PRN PRN PRN Reason: NAUSEA Oxycodone HCl (Oxycodone 5 Mg Tablet) 5 mg PO Q4H PRN PRN PRN Reason: Pain Score 6-10 Last Admin: 12/27/20 20:50 Dose: 5 mg Documented by: Pantoprazole Sodium (Pantoprazole Sodium 40 Mg Tablet) 40 mg PO DAILY [facility] Last Admin: 12/27/20 05:56 Dose: 40 mg Documented by: Paroxetine HCl (Paroxetine 20 Mg Tablet) 40 mg PO DAILY [facility] Last Admin: 12/27/20 05:56 Dose: 40 mg Documented by: Polyethylene Glycol (Polyethylene Glycol 3350 17 Gm Packet) 17 gm PO DAILY [facility] Last Admin: 12/27/20 05:53 Dose: 17 gm Documented by: Polysaccharide Iron Complex (Iron Polysaccharide Complex 150 Mg Capsule) 150 mg PO DAILY [facility] Last Admin: 12/27/20 05:57 Dose: 150 mg Documented by: Potassium Chloride (Potassium Chloride Oral Tablet 10 Meq) 10 meq PO BIDCM [facility] Last Admin: 12/27/20 17:30 Dose: 10 meq Documented by: Pramipexole Dihydrochloride (Pramipexole Di-Hcl 1 Mg Tablet) 1 mg PO BID [facility] Last Admin: 12/27/20 17:31 Dose: 1 mg Documented by: Fluticasone/Salmeterol (Fluticasone/Salmeterol 232-14 Inhaler) 1 puff IH Q12 [facility] Last Admin: 12/27/20 17:31 Dose: 1 puff Documented by: Senna/Docusate Sodium (Senna/Docusate Sodium 1 Tablet) 1 tablet PO BID [facility] Last Admin: 12/27/20 17:31 Dose: 1 tablet Documented by: Sodium Chloride (0.9% Saline Lock 10 Ml Syringe) 10 - 40 ml IV UD PRN PRN Reason: SALINE FLUSH Umeclidinium [place] (Umeclidinium [place] Inhaler) 1 puff IH DAILY [facility] Last Admin: 12/27/20 05:54 Dose: 1 puff Documented by: Zolpidem Tartrate (Zolpidem Tartrate 5 Mg Tablet) 5 mg PO QHS PRN PRN PRN Reason: INSOMNIA Last Admin: 12/27/20 20:50 Dose: 5 mg Documented by: Assessment/Plan All Active Problems (Last Reviewed 12/10/20 @ 11:[address] Brown Vargas MD) Other specified peripheral vascular diseases (Acute) Fracture of right great toe (Acute) Cellulitis of right leg (Acute) Debility (Acute) Acute kidney injury (Acute)
--- NOTE | 2020-12-28 06:15 | RAD_ITS ---
STUDY: X-RAY CHEST REASON FOR EXAM: Female, 75 years old. hypoxia -- rule out aspiration TECHNIQUE: Single AP portable view of the chest. COMPARISON: 12/19/2020 FINDINGS: Poor inspiration with some bibasilar atelectasis per There is no demonstrated pleural abnormality. There is moderate cardiac enlargement. Normal mediastinum and duarte. Normal visualized pulmonary arteries. Normal visualized aortic arch and descending thoracic aorta. Normal visualized thoracic spine. Normal visualized ribs, clavicles, and shoulders. There is no demonstrated abnormality of the visualized soft tissue structures of the upper abdomen. RAD/Chest 1 View (Portable) IMPRESSION: Poor inspiration with some bibasilar atelectasis. Electronically Signed: Ramón Tomlinson MD at 7:57 EDT Tel , Service support ,
--- NOTE | 2020-12-28 06:25 | RAD_ITS ---
STUDY: X-RAY - SOFT TISSUE NECK REASON FOR EXAM: Female, 75 years old. possible upper airway obstruction -- front and lateral neck TECHNIQUE: 2 view(s) of the neck were obtained. COMPARISON: None. FINDINGS: There is soft tissue prominence of the posterior nasopharynx consistent with adenoidal hypertrophy. Normal epiglottis. Normal visualized subglottic tracheal air column. Normal prevertebral soft tissue structures. Normal visualized osseous structures. The soft tissue structures are unremarkable. RAD/Neck for Soft Tissue IMPRESSION: Adenoidal hypertrophy. Electronically Signed: Ramón Tomlinson MD at 7:59 EDT Tel , Service support ,
--- NOTE | 2020-12-28 06:25 | NURSING ---
[employer] called as pt incoherant and grunting. 02 sats 77% on 4L via NC. [employer]OBI[employer]ER called. see documentation. called Dr Connor post [employer] as symptoms of grunting not resolved and RT concerned about possible upper airway obstruction. Orders to send pt to ER for further evaluation.
[2020-12-28 06:53] LABS: Hematocrit 32.3 % (37-47); Hemoglobin 9.1 g/dL (12.0-15.0); Mean Corp Hgb Conc 28.2 g/dL (32-36); Mean Corpuscular Hgb 26.5 pg (27.0-32.0); Mean Corpuscular Volume 93.9 fL (81-99); Mean Platelet Vol. 11.9 fl (6.2-12.0); POSITIVE COUNT YES; POSITIVE DIFFERENTIAL YES; POSITIVE MORPHOLOGY YES; Platelet Count 431 K/mm3 (150-450); RBC Distribution Width CV 21.2 % (11.6-14.6); RBC Distribution Width SD 67.6 fl (35.1-43.9); Red Blood Count 3.44 M/mm3 (4.2-5.4)
[2020-12-28 06:57] LABS: Differential Indicated MANUAL DIFF
[2020-12-28 07:12] LABS: Total Cells Counted 100 (MANUAL DIFF)
[2020-12-28 07:13] LABS: Basophil 0 % (0-1); Corrected WBC 20.3 K/mm3 (4.4-11.0); Lymphocyte 15 % (19-41); Metamyelocyte 3 % (0-1); Myelocyte 1 (0-0); Neutrophil-Band 7 % (0-5); Neutrophil-Segmented 67 % (47-70); Nucleated Red Bld Cells,Manual 7 % (0-5)
[2020-12-28 07:14] LABS: Absolute Lymphocyte Count 3.05 X10^3/uL (0.83-4.51); Hypochromasia RARE; Macrocytosis RARE; Microcytosis RARE; Ovalocyte RARE; Pathologist Review May foll; Platelet Estimate ADEQUATE (ADEQ); Stomatocyte RARE
[2020-12-28 07:15] LABS: ALB/GLOB Ratio 0.6 RATIO (0.9-2.4); AST(SGOT) 1328 U/L (15-37); Alanine Aminotransfer ALT/SGPT 650 U/L (13-56); Albumin, Serum 2.6 g/dL (3.2-5.0); Alkaline Phosphatase 214 U/L (45-117); Anion Gap 12 (5-15); BUN 35 mg/dL (7-18); BUN/Creat Ratio 22.2 RATIO (10-20); Calcium,Total 7.9 mg/dL (8.5-10.1); Chloride 104 mmol/L (98-107); Creatinine, Serum 1.58 mg/dL (0.55-1.02); EST Glomerular Filtration Rate 34 mL/min (>60); Est Glom Filt Rate - Afr Amer 41 mL/min (>60); Estimated Creatinine Clearance 40.72 ml/min; Globulin 4.1 g/dL (2.2-4.2); Glucose 46 mg/dL (74-106); Magnesium 1.9 mg/dL (1.6-2.6); Potassium 5.4 mmol/L (3.5-5.1); Protein, Total 6.7 g/dL (6.4-8.2); Sodium Level 140 mmol/L (136-145)
[2020-12-28 07:30] LABS: Eosinophil 1 % (0-5)
--- NOTE | 2020-12-28 09:27 | PCM.DC ---
- Discharge Diagnoses Current Active Problems: Current Active and Chronic Problems (Last Reviewed 12/10/20 @ 11:[address] Brown Vargas MD) Fracture of right great toe (Acute) Cellulitis of right leg (Acute) Debility (Acute) Acute kidney injury (Acute) Depression (Chronic) Peripheral arterial occlusive disease (Chronic) Diabetic polyneuropathy (Chronic) Atrial fibrillation (Chronic) Hypertension (Chronic) Hypokalemia (Chronic) Osteoporosis (Chronic) Gastroesophageal reflux disease (Chronic) Insomnia (Chronic) Acute on chronic diastolic CHF (congestive heart failure) (Chronic) Diabetes (Chronic) COPD (chronic obstructive pulmonary disease) (Chronic) Anemia (Chronic) Left carotid artery stenosis (Chronic) Hyperlipidemia (Chronic) You will use the following diet at home:: Other - NPO. Discharge Activity: Use Walker Weight Bearing Status: Weight bearing as tolerated Call your doctor if you observe: Fever of 101 or Higher, Inability to urinate, Inability to have a bowel movement, Shortness of breath, Chest pain, Uncontrolled pain Allergies/Adverse Reactions: Allergies ciprofloxacin [From Cipro] Allergy (Verified 12/28/20 06:50) Rash ciprofloxacin HCl [From Cipro] Allergy (Verified 12/28/20 06:50) Rash gabapentin [From Neurontin] Allergy (Verified 12/28/20 06:50) Rash heparin Allergy (Verified 12/28/20 06:50) Low platelets tuberculin, purified protein deriva Adverse Reaction (Verified 12/28/20 06:50) Other Medications to take at Discharge Albuterol Aerosols [Ventolin Aerosols] 2.5 mg INHALATION Q4H PRN PRN 09/26/19 Albuterol IH (ProAir) [Proair Hfa] 2 puff INHALATION Q6H PRN PRN 09/26/19 Cyanocobalamin (Vitamin B-12) [Vitamin B-12] 1,000 mcg PO DAILY 09/26/19 Fluticasone 0.05% [Flonase Nasal [place]] 2 spray NASAL DAILY 09/26/19 Fluticasone/Salmeterol [Advair Hfa 115-21 Mcg Inhaler] 2 puff INHALATION BID 09/26/19 L.acidoph,Paracasei, B.lactis [Probiotic] 1 ea PO DAILY 09/26/19 Nystatin [Nyamyc] 30 gm TP BID 09/26/19 Paroxetine HCl [Paxil] 40 mg PO DAILY 09/26/19 Ropinirole HCl 2 mg PO BID 09/26/19 Tiotropium [place] [Spiriva] 18 mcg IH DAILY 09/26/19 calcium carbonate 500 mg (1,250 mg)-vitamin D3 200 unit tablet 1 tab PO DAILY tab 01/11/20 lisinopril 10 mg tablet 10 mg PO DAILY 05/05/20 potassium chloride 10 mEq tablet,extended release 10 meq PO BID tab 05/13/20 omeprazole 20 mg capsule,delayed release 40 mg PO DAILY cap 09/03/20 nitroglycerin 0.4 mg sublingual tablet 0.4 mg SUBLINGUAL PRN PRN #25 tab 10/30/20 Amiodarone HCl 200 mg PO DAILY 12/12/20 Apixaban [Eliquis] 2.5 mg PO BID 12/12/20 Aspirin E.C. [Ecotrin] 81 mg PO DAILY@0800 12/12/20 Atorvastatin Calcium [Lipitor] 80 mg PO QHS 12/12/20 Cefdinir [Omnicef [equiv]] 300 mg PO Q12H 12/12/20 Denosumab [Prolia] 60 mg SC [id number] 12/12/20 Furosemide [Lasix] 40 mg PO BID@1000,1800 12/12/20 Insulin Glargine [Lantus SoloStar Pen] 15 units SC BREAKFAST 12/12/20 Insulin Lispro [Humalog KwikPen] 8 unit SC TIDCM 12/12/20 Insulin Lispro [Humalog KwikPen] See Protocol SC TIDCM 12/12/20 Iron Polysaccharide Complex [Ferrex 150] 150 mg PO DAILY #0 12/12/20 Levothyroxine Sodium [Synthroid] 25 mcg PO DAILY 12/12/20 Linezolid 600 mg PO BID 12/12/20 Metoprolol Tartrate 25 mg PO BID 12/12/20 Oxycodone [Oxyir] 5 mg PO TID PRN PRN 2 Days #10 tab 12/12/20 Suvorexant [Belsomra] 20 mg PO QHS #0 12/12/20 Primary Care Physician: Yesenia Leon WOODWORK SALVAGE INSPECTOR, WOODWORK SALVAGE INSPECTOR-C [Primary Care Provider] - Please follow up with your Primary Care Physician in: 1 week. Test Results: Test results from this visit will be discussed in further detail at your follow-up appointment, if applicable. Please Follow Up With: Kenna Sethi DPM When: 1 week Please Follow Up With: Jeevan Cordova MD When: as needed Please Follow Up With: Clau Iniguez MD When: 2-4 weeks for CKD Please Follow Up With: Brown Vargas MD When: will followup with patient in one week (Tuesday) Please Follow Up With: Infusion Center Proposed Discharge Date: 12/28/20
--- NOTE | 2020-12-28 09:29 | PCM.DC.SUM ---
Discharge Date and Diagnosis - Problem List Patient Problems: Active and Suspected Problems (Last Reviewed 12/10/20 @ 11:[address] Brown Vargas MD) Fracture of right great toe (Acute) Cellulitis of right leg (Acute) Debility (Acute) Acute kidney injury (Acute) Date of Admission: 12/12/20 Date of Discharge: 12/28/20 - Primary Discharge Diagnosis Acute Problems: Active Problems (Last Reviewed 12/10/20 @ 11:[address] Brown Vargas MD) Fracture of right great toe (Acute) Cellulitis of right leg (Acute) Debility (Acute) Acute kidney injury (Acute) - Secondary Discharge Diagnosis Chronic Problems: Chronic Problems (Last Reviewed 12/10/20 @ 11:[address] Brown Vargas MD) Non-pressure chronic ulcer of other part of left foot with fat layer exposed (Chronic) Chronic ulcer of great toe of right foot with fat layer exposed (Chronic) Depression (Chronic) Peripheral arterial occlusive disease (Chronic) Diabetic polyneuropathy (Chronic) Atrial fibrillation (Chronic) Hypertension (Chronic) Hypokalemia (Chronic) Osteoporosis (Chronic) Gastroesophageal reflux disease (Chronic) Insomnia (Chronic) Obesity (Chronic) Acute on chronic diastolic CHF (congestive heart failure) (Chronic) COPD exacerbation (Chronic) Diabetes (Chronic) Toxic multinodular goiter (Chronic) Polyneuropathy due to type 2 diabetes mellitus (Chronic) COPD (chronic obstructive pulmonary disease) (Chronic) Acute on chronic respiratory failure with hypoxia (Chronic) Paroxysmal atrial fibrillation (Chronic) Anemia (Chronic) Non-rheumatic aortic stenosis (Chronic) H/O aortic valve replacement (Chronic 12/03/16) TAVR: 23 mm Guillaume-Sapiens S3 valve 12/03/2016 Chronic diastolic heart failure (Chronic) Left carotid artery stenosis (Chronic) Right bundle branch block (RBBB) (Chronic) Hyperlipidemia (Chronic) Essential (primary) hypertension (Chronic) Hospital Course and Treatment Imaging Results: 12/28/20 06:15 CXR [Chest 1 View (Portable)] [RAD] Stat 12/28/20 06:25 Xray Neck Soft Tissue [Neck for Soft Tissue] [RAD] Urgent Operations: None Procedures: None Summary of Care Provided: The patient is a 75 year old Female with below past medical history hospitalized for right great toe fracture, right lower extremity cellulitis, complicated peripheral arterial occlusive disease, acute on chronic diastolic congestive heart failure, admitted to TCU with debility, here for rehabilitation, strengthening, prior to discharge home alone. 12/28/2020 Resident hypoxic, lethargic, audible stridor, Rapid Response Team activated, thorough evaluation performed, but resident status continued to deteriorate. Discharge to [facility] Emergency Department for evaluation, admission to hospital. Patient Problems: Active and Suspected Problems (Last Reviewed 12/10/20 @ 11:[address] Brown Vargas MD) Fracture of right great toe (Acute) Cellulitis of right leg (Acute) Debility (Acute) Acute kidney injury (Acute) - Physical Exam Vitals/I&O's: Vital Signs Temp Pulse Resp BP Pulse Ox 99.5 F H 65 24 H 151/84 H 94 12/28/20 05:00 12/28/20 05:00 12/28/20 05:00 12/28/20 05:00 12/28/20 05:00 Oxygen Flow Rate (L/min) 15 Oxygen Delivery Method Nasal Cannula Weight: 82.582 kg Body Mass Index (BMI) 36.5 Finger Stick Blood Glucose 112 Intake and Output for Last 24 Hours 12/26/20 12/27/20 12/29/20 23:59 23:59 00:59 Intake Total 1840 / 1840 2840 / 2840 Output Total 550 / 550 Balance 1840 / 1840 2840 / 2840 -550 / -550 Laboratory Results 12/27/20 10:06: POC Glucose 204 H 12/27/20 16:21: POC Glucose 149 H 12/27/20 21:15: POC Glucose 191 H 12/28/20 05:49: POC Glucose 78 12/28/20 06:04: Specimen Type ART, Sample Site L Radial, pH 7.32 L, Bicarbonate Actual 20.0 L, Total CO2 21, Base Excess -6 L, O2 Saturation 90 L, O2 % 100, ABG pCO2 38.5, ABG pO2 63 L, Constantine Test Positive, O2 Delivery Device NRB 12/28/20 06:44: Sodium 140, Potassium 5.4 H, Chloride 104, Carbon Dioxide 24.0, Anion Gap 12, BUN 35 H, Creatinine 1.58 H, Estim Creat Clear Calc 40.72, Est GFR (MDRD) Af Amer 41 L, Est GFR (MDRD) Non-Af 34 L, BUN/Creatinine Ratio 22.2 H, Glucose 46 L, Calcium 7.9 L, Magnesium 1.9, Total Bilirubin 1.40 H, AST 1328 H, ALT 650 H, Alkaline Phosphatase 214 H, Total Protein 6.7, Albumin 2.6 L, Globulin 4.1, Albumin/Globulin Ratio 0.6 L 12/28/20 06:44: WBC [employer]UCK [employer]IVER TE[employer], Corrected WBC 20.3 H, RBC 3.44 L, Hgb 9.1 L, Hct 32.3 L, MCV 93.9, MCH 26.5 L, MCHC 28.2 L, RDW Std Deviation 67.6 H, RDW Coeff of Jeff 21.2 H, Plt Count 431, MPV 11.9, Neut % (Auto) Not Reportable, Absolute Neuts (auto) 15.0 H, Absolute Lymphs (auto) 3.05, Total Counted 100, Neutrophils % (Manual) 67, Band Neutrophils % 7 H, Lymphocytes % (Manual) 15 L, Eosinophils % (Manual) 1, Basophils % (Manual) 0, Metamyelocytes % 3 H, Myelocytes % 1 H, Plasma Cell % (Manual) TRUCK [employer]IVER TE[employer]STER, Nucleated RBCs/100 WBC 7 H, Diff Path Review May foll, Platelet Estimate ADEQUATE, Hypochromasia RARE, Microcytosis RARE, Macrocytosis RARE, Ovalocytes RARE, Stomatocytes RARE Current Medications Acetaminophen (Acetaminophen 500 Mg Tablet) 1,000 mg PO Q6H PRN PRN PRN Reason: Pain Score 1-5 Last Admin: 12/21/20 19:49 Dose: 1,000 mg Documented by: Albuterol Sulfate (Albuterol Sulfate 8 Gm Inhaler (60 Puffs)) 2 puff INHALATION Q6H PRN PRN PRN Reason: SOB &/OR WHEEZING Last Admin: 12/21/20 20:02 Dose: 2 puff Documented by: Albuterol/Ipratropium (Ipratropium/Albuterol Sulfate 3 Ml Ampul.Neb) 3 ml INHALATION Q4H.RT PRN PRN Reason: sob/resp distress Amiodarone HCl (Amiodarone 200 Mg Tablet) 200 mg PO DAILY [facility] Last Admin: 12/27/20 05:56 Dose: 200 mg Documented by: Atorvastatin Calcium (Atorvastatin Calcium 80 Mg Tablet) 80 mg PO QHS DIAMOND Last Admin: 12/27/20 20:03 Dose: 80 mg Documented by: Bisacodyl (Bisacodyl 5 Mg Tablet) 10 mg PO DAILY PRN PRN Reason: Constipation Calamine/Phenol (Menthol/Lanolin/Calamine/Znox 113 Gm Tube) 1 applic TOPICAL 0600,2200 [facility]; Protocol Last Admin: 12/27/20 20:03 Dose: 1 applicatio Documented by: Calcium/Vitamin D (Calcium Carb/Vitamin D 1 Tablet Tablet) 1 tablet PO DAILYCM [facility] Last Admin: 12/27/20 08:46 Dose: 1 tablet Documented by: Cyanocobalamin (Cyanocobalamin 500 Mcg Tablet) 1,000 mcg PO DAILY [facility] Last Admin: 12/27/20 05:56 Dose: 1,000 mcg Documented by: Diphenhydramine HCl (Diphenhydramine 25 Mg Capsule) 12.5 mg PO TID PRN PRN PRN Reason: ALLERGIES Emollient Ointment (Emollient Combination No.72 500 Ml Lotion) 1 applic TOPICAL HS [facility]; Protocol Last Admin: 12/27/20 20:03 Dose: 1 applicatio Documented by: Famotidine (Famotidine 20 Mg Tablet) 20 mg PO BID [facility] Stop: 12/30/20 18:01 Fluticasone Propionate (Fluticasone 0.05% 1 [place] Nasal.Sry) 2 spray NASAL DAILY [facility] Last Admin: 12/27/20 05:57 Dose: 2 spray Documented by: Folic Acid (Folic Acid 1 Mg Tablet) 1 mg PO DAILY@0800 [facility] Last Admin: 12/27/20 08:46 Dose: 1 mg Documented by: Furosemide (Furosemide 40 Mg Tablet) 40 mg PO DAILY [facility] Sodium Chloride () 1,000 mls @ 60 mls/hr IV .[id number] [facility] Last Admin: 12/27/20 18:10 Dose: 60 mls/hr Documented by: Sodium Chloride () 1,000 mls @ 100 mls/hr IV .Q10H [facility] Stop: 12/28/20 16:14 Insulin Glargine (Insulin Glargine 100 Units/Ml Pen) 15 units SC BREAKFAST [facility] Last Admin: 12/27/20 08:46 Dose: 15 u Documented by: Lactobacillus Acidophilus (Lactobacillus Acidophilus) 1 tablet PO DAILY [facility] Last Admin: 12/27/20 05:57 Dose: 1 tablet Documented by: Levothyroxine Sodium (Levothyroxine 25 Mcg Tablet) 25 mcg PO DAILY [facility] Last Admin: 12/27/20 05:56 Dose: 25 mcg Documented by: Lisinopril (Lisinopril 10 Mg Tablet) 10 mg PO DAILY [facility] Last Admin: 12/27/20 05:56 Dose: 10 mg Documented by: Magnesium Hydroxide (Magnesium Hydroxide 30 Ml Udc) 30 ml PO DAILY PRN PRN Reason: Constipation Methylprednisolone (Methylprednisolone 40 Mg/Ml Vial) 40 mg IV Q8 [facility] Stop: 12/28/20 22:01 Metoprolol Tartrate (Metoprolol Tartrate 25 Mg Tablet) 25 mg PO 1000,2200 [facility] Last Admin: 12/27/20 20:02 Dose: 25 mg Documented by: Nitroglycerin (Nitroglycerin (Inpatient Use) 0.4 Mg Tab.Subl) 0.4 mg SUBLINGUAL Q5M PRN PRN Reason: CARDIAC/CHEST PAIN Last Admin: 12/18/20 12:16 Dose: 0.4 mg Documented by: Nutritional Formula (Lactose Free) (Glucerna Shake 120 Ml Liquid) 120 ml PO 4X/DAY [facility] Last Admin: 12/27/20 20:03 Dose: 120 ml Documented by: Nystatin (Nystatin Powder 15gm Bottle) 1 applic TOPICAL 0600,2200 [facility]; Protocol Last Admin: 12/27/20 20:30 Dose: 1 applicatio Documented by: Ondansetron HCl (Ondansetron Odt 4 Mg Tablet) 4 mg PO Q8H PRN PRN PRN Reason: NAUSEA Oxycodone HCl (Oxycodone 5 Mg Tablet) 5 mg PO Q4H PRN PRN PRN Reason: Pain Score 6-10 Last Admin: 12/27/20 20:50 Dose: 5 mg Documented by: Pantoprazole Sodium (Pantoprazole Sodium 40 Mg Tablet) 40 mg PO DAILY [facility] Last Admin: 12/27/20 05:56 Dose: 40 mg Documented by: Paroxetine HCl (Paroxetine 20 Mg Tablet) 40 mg PO DAILY [facility] Last Admin: 12/27/20 05:56 Dose: 40 mg Documented by: Polyethylene Glycol (Polyethylene Glycol 3350 17 Gm Packet) 17 gm PO DAILY [facility] Last Admin: 12/27/20 05:53 Dose: 17 gm Documented by: Polysaccharide Iron Complex (Iron Polysaccharide Complex 150 Mg Capsule) 150 mg PO DAILY [facility] Last Admin: 12/27/20 05:57 Dose: 150 mg Documented by: Potassium Chloride (Potassium Chloride Oral Tablet 10 Meq) [facility] Admin: 12/27/20 17:30 Dose: 10 meq Documented by: Pramipexole Dihydrochloride (Pramipexole Di-Hcl 1 Mg Tablet) 1 mg PO BID [facility] Last Admin: 12/27/20 17:31 Dose: 1 mg Documented by: Prednisone (Prednisone 20 Mg Tablet) 40 mg PO DAILY@0800 [facility] Stop: 12/31/20 08:01 Fluticasone/Salmeterol (Fluticasone/Salmeterol 232-14 Inhaler) 1 puff IH Q12 [facility] Last Admin: 12/27/20 17:31 Dose: 1 puff Documented by: Senna/Docusate Sodium (Senna/Docusate Sodium 1 Tablet) 1 tablet PO BID [facility] Last Admin: 12/27/20 17:31 Dose: 1 tablet Documented by: Sodium Chloride (0.9% Saline Lock 10 Ml Syringe) 10 - 40 ml IV UD PRN PRN Reason: SALINE FLUSH Umeclidinium [place] (Umeclidinium [place] Inhaler) 1 puff IH DAILY [facility] Last Admin: 12/27/20 05:54 Dose: 1 puff Documented by: Zolpidem Tartrate (Zolpidem Tartrate 5 Mg Tablet) 5 mg PO QHS PRN PRN PRN Reason: INSOMNIA Last Admin: 12/27/20 20:50 Dose: 5 mg Documented by: Discharge Diet: - - NPO. Discharge Activity: Use Walker Weight Bearing Status: Weight bearing as tolerated Call your doctor if you observe: Fever of 101 or Higher, Inability to urinate, Inability to have a bowel movement, Shortness of breath, Chest pain, Uncontrolled pain Home Medications: Medications to take at Discharge Albuterol Aerosols [Ventolin Aerosols] 2.5 mg INHALATION Q4H PRN PRN 09/26/19 Albuterol IH (ProAir) [Proair Hfa] 2 puff INHALATION Q6H PRN PRN 09/26/19 Cyanocobalamin (Vitamin B-12) [Vitamin B-12] 1,000 mcg PO DAILY 09/26/19 Fluticasone 0.05% [Flonase Nasal [place]] 2 spray NASAL DAILY 09/26/19 Fluticasone/Salmeterol [Advair Hfa 115-21 Mcg Inhaler] 2 puff INHALATION BID 09/26/19 L.acidoph,Paracasei, B.lactis [Probiotic] 1 ea PO DAILY 09/26/19 Nystatin [Nyamyc] 30 gm TP BID 09/26/19 Paroxetine HCl [Paxil] 40 mg PO DAILY 09/26/19 Ropinirole HCl 2 mg PO BID 09/26/19 Tiotropium [place] [Spiriva] 18 mcg IH DAILY 09/26/19 calcium carbonate 500 mg (1,250 mg)-vitamin D3 200 unit tablet 1 tab PO DAILY tab 01/11/20 lisinopril 10 mg tablet 10 mg PO DAILY 05/05/20 potassium chloride 10 mEq tablet,extended release 10 meq PO BID tab 05/13/20 omeprazole 20 mg capsule,delayed release 40 mg PO DAILY cap 09/03/20 nitroglycerin 0.4 mg sublingual tablet 0.4 mg SUBLINGUAL PRN PRN #25 tab 10/30/20 Amiodarone HCl 200 mg PO DAILY 12/12/20 Apixaban [Eliquis] 2.5 mg PO BID 12/12/20 Aspirin E.C. [Ecotrin] 81 mg PO DAILY@0800 12/12/20 Atorvastatin Calcium [Lipitor] 80 mg PO QHS 12/12/20 Cefdinir [Omnicef [equiv]] 300 mg PO Q12H 12/12/20 Denosumab [Prolia] 60 mg SC [id number] 12/12/20 Furosemide [Lasix] 40 mg PO BID@1000,1800 12/12/20 Insulin Glargine [Lantus SoloStar Pen] 15 units SC BREAKFAST 12/12/20 Insulin Lispro [Humalog KwikPen] 8 unit SC TIDCM 12/12/20 Insulin Lispro [Humalog KwikPen] See Protocol SC TIDCM 12/12/20 Iron Polysaccharide Complex [Ferrex 150] 150 mg PO DAILY #0 12/12/20 Levothyroxine Sodium [Synthroid] 25 mcg PO DAILY 12/12/20 Linezolid 600 mg PO BID 12/12/20 Metoprolol Tartrate 25 mg PO BID 12/12/20 Oxycodone [Oxyir] 5 mg PO TID PRN PRN 2 Days #10 tab 12/12/20 Suvorexant [Belsomra] 20 mg PO QHS #0 12/12/20 Primary Care Physician: Yesenia Leon TRUCK DRIVER TEAMSTER, TRUCK DRIVER TEAMSTER-C [Primary Care Provider] - Please follow up with your Primary Care Physician in: 1 week. Please Follow Up With: Kenna Sethi DPM When: 1 week Please Follow Up With: Jeevan Cordova MD When: as needed Please Follow Up With: Clau Iniguez MD When: 2-4 weeks for CKD Please Follow Up With: Brown Vargas MD When: will followup with patient in one week (Tuesday) Please Follow Up With: Infusion Center Disposition: Acute care Hospital Minutes spent on discharge:: 30 Patient Condition:: Critical Medical Necessity - Tobacco Use Smoking Status: Unknown if ever smoked Tobacco Use: Non-smoker Meaningful Use Info Meaningful Use Diagnoses (Choose all that apply): None applicable
--- NOTE | 2020-12-28 20:27 | NURSING ---
patients wallet found in med box. Wallet sent to [facility]. Wallet has cards, keys, and &10 wilson inside.
[2020-12-29 12:15] LABS: Pathologist Review Reviewed
== END 2020-12-28 06:30 | disposition short-term general hospital (02) | DRG 560 ==
PROVIDERS: Internal Medicine; Admitting Provider Family Medicine Geriatric Medicine; PCP Nurse Practitioner; Visit Provider Family Medicine Geriatric Medicine
DX: S92.401D Displaced unspecified fracture of right great toe, subsequent encounter for fracture with routine healing (principal); L03.115 Cellulitis of right lower limb; I50.32 Chronic diastolic (congestive) heart failure; E72.12 Methylenetetrahydrofolate reductase deficiency; E11.51 Type 2 diabetes mellitus with diabetic peripheral angiopathy without gangrene; E11.42 Type 2 diabetes mellitus with diabetic polyneuropathy; E03.9 Hypothyroidism, unspecified; B35.4 Tinea corporis; E78.5 Hyperlipidemia, unspecified; I25.10 Atherosclerotic heart disease of native coronary artery without angina pectoris; K21.9 Gastro-esophageal reflux disease without esophagitis; I11.0 Hypertensive heart disease with heart failure; F32.9 Major depressive disorder, single episode, unspecified; I48.0 Paroxysmal atrial fibrillation; J44.9 Chronic obstructive pulmonary disease, unspecified; E87.6 Hypokalemia; E61.1 Iron deficiency; G25.81 Restless legs syndrome; M79.7 Fibromyalgia; E66.9 Obesity, unspecified; Z95.2 Presence of prosthetic heart valve; I27.21 Secondary pulmonary arterial hypertension; I25.2 Old myocardial infarction; Z87.891 Personal history of nicotine dependence; Z68.36 Body mass index [BMI] 36.0-36.9, adult; F41.9 Anxiety disorder, unspecified
CPT/HCPCS: 36415; 36600; 70360; 71045; 71046; 73630; 74018; 80048; 80053; 81001; 82274; 82803; 82962; 83735; 85014; 85018; 85025; 86850; 86900; 86901; 86920; 86922; 87086; 87635; 92507; 92523; 93005; 97110; 97116; 97162; 97165; 97530; 97535; 97802; J7030; J3490; U0002

== ENCOUNTER 2020-12-18 08:39 | Outpatient (CLI) | payer MEDICARE, SELFPAY ==
[2020-12-18] VITALS (8 sets, daily range): BP systolic 119–154; BP diastolic 46–59; PULSE 52–63; RESP 16; TEMP 35.9–36.3; O2SAT 98–100; BMI 36.9
--- NOTE | 2020-12-18 11:54 | NURSING ---
pt states upon entering the room she has chest heaviness. States she has a hx of chest heaviness. typically lasts several minutes to an hour. does not radiate, denies jaw pain. states she had NTG to take and this provides relief. Will notify provider.
[2020-12-18] MEDS: Furosemide 20 MG/2 ML VIAL IV (12:32)
== END 2020-12-18 16:30 ==
LOC: MEDOUTP 08:40
PROVIDERS: PCP Nurse Practitioner; Referring Provider Family Medicine Geriatric Medicine; Visit Provider Family Medicine Geriatric Medicine
DX: D50.9 Iron deficiency anemia, unspecified (principal)
CPT/HCPCS: 36430; 86850; 86900; 86901; 86920; 86922; J7040; P9016; A4216; J1940

== ENCOUNTER → 2020-12-19 14:34 | Outpatient (CLI) | payer MEDICARE, SELFPAY ==
[2020-12-18 08:45] VITALS: BMI 36.9
--- NOTE | 2020-12-19 14:38 | CT_ITS ---
STUDY: CT BRAIN WITHOUT CONTRAST REASON FOR EXAM: Female, 75 years old. SLURRED SPEECH/ALTERED LOC RADIATION DOSAGE (If Supplied By Facility): CTDIvol = ( 44.99 ) mGy, DLP = ( 745.49 ) mGycm TECHNIQUE: Transaxial CT imaging of the brain was performed without administration of intravenous contrast material. Individualized dose optimization techniques were used for this CT. COMPARISON: No relevant priors. FINDINGS: Normal soft tissue structures. Normal calvarium. There is mild cerebral atrophy with widening of the extra-axial spaces and ventricular dilatation. Normal white matter tracts of the cerebral hemispheres. Normal basal ganglia and thalami. Normal brainstem. Normal cerebellum. There is no intracranial hemorrhage. There are no findings of an acute ischemic infarction. Normal visualized paranasal sinuses. Right mastoid air cell fluid with sclerosis, chronic appearing. CT/Brain/Head without Contrast IMPRESSION: 1. No acute intracranial hemorrhage or mass effect. 2. Chronic right mastoiditis. Electronically Signed: Travis Ricks MD ([place]) at 15:16 EST , Service support ,
== END ==
LOC: CT 14:37
PROVIDERS: PCP Nurse Practitioner; Referring Provider Family Medicine Geriatric Medicine; Visit Provider Family Medicine Geriatric Medicine
DX: R47.81 Slurred speech (principal); R41.82 Altered mental status, unspecified
CPT/HCPCS: 70450

== ENCOUNTER 2020-12-28 06:36 | Inpatient (IN) | payer MEDICARE, MEDICAID, SELFPAY ==
[2020-12-18 08:45] VITALS: BMI 36.9
[2020-12-28] VITALS (37 sets, daily range): BP systolic 98–155; BP diastolic 36–91; PULSE 49–79; RESP 12–96; TEMP 36.4–38.7; O2SAT 69–100; BMI 38.6; BMI 38.8; BMI 38.9
--- NOTE | 2020-12-28 06:07 | EKG12_ITS ---
Test Reason : Blood Pressure : / mmHG Vent. Rate : 128 BPM Atrial Rate : 128 BPM P-R Int : 110 ms QRS Dur : 010 ms QT Int : 218 ms P-R-T Axes : 047 000 -06 degrees QTc Int : 318 ms Normal sinus rhythm Indeterminate axis Nonspecific ST and T wave abnormality Abnormal ECG When compared with ECG of 11-APR-2020 14:08, Current undetermined rhythm precludes rhythm comparison, needs review Right bundle branch block is no longer Present Confirmed by TARI MARTINEZ, CHIQUIS ([id number]), film or videotape editor TIERRA BLANCO ([id number]) on 12/31/2020 10:20:47 AM Referred By: Confirmed By:CHIQUIS MARC MD
--- NOTE | 2020-12-28 06:54 | CT_ITS ---
STUDY: CT BRAIN WITHOUT CONTRAST REASON FOR EXAM: Female, 75 years old. Mental status change RADIATION DOSAGE (If Supplied By Facility): CTDIvol = ( 44.99 ) mGy, DLP = ( 1614.72 ) mGycm TECHNIQUE: Transaxial CT imaging of the brain was performed without administration of intravenous contrast material. Individualized dose optimization techniques were used for this CT. COMPARISON: 12/19/2020 FINDINGS: Normal soft tissue structures. Normal calvarium. There is mild cerebral atrophy with widening of the extra-axial spaces and ventricular dilatation. Normal white matter tracts of the cerebral hemispheres. Normal basal ganglia and thalami. Normal brainstem. Normal cerebellum. There is no intracranial hemorrhage. There are no findings of an acute ischemic infarction. Normal visualized paranasal sinuses. CT/Brain/Head without Contrast IMPRESSION: Chronic involutional changes of the brain. Electronically Signed: Ramón Tomlinson MD at 9:51 EDT Tel , Service support ,
--- NOTE | 2020-12-28 06:54 | EKG12_ITS ---
Test Reason : POST RAPID RESPONSE Blood Pressure : / mmHG Vent. Rate : 072 BPM Atrial Rate : 072 BPM P-R Int : 160 ms QRS Dur : 150 ms QT Int : 442 ms P-R-T Axes : 077 108 006 degrees QTc Int : 483 ms Normal sinus rhythm Right bundle branch block Abnormal ECG Confirmed by TARI MARTINEZ, CHIQUIS ([id number]), online editor TIERRA BLANCO ([id number]) on 12/31/2020 9:40:11 AM Referred By: DERRICK Confirmed By:CHIQUIS MARC MD
[2020-12-28] MEDS: 0.9% Normal Saline 1,000 ML 150 ML IV (06:55)
[2020-12-28 07:07] LABS: International Normalized Ratio 2.1; Prothrombin Time (Protime)PT. 22.9 SECONDS (11.7-14.9)
[2020-12-28 07:08] LABS: Partial Thromboplast Time 49.5 Seconds (24.1-36.2)
[2020-12-28 07:18] LABS: BNP,B-Type NATRIURETIC PEPTIDE 691.2 pg/mL (0-100)
[2020-12-28 07:20] LABS: Lactic Acid 7.3 mmol/L (0.4-1.9)
[2020-12-28] MEDS: Dextrose 50%-Water 25 GM/50 ML DISP.SYRIN IV (07:26)
[2020-12-28 07:27] LABS: Differential Indicated MANUAL DIFF; Hematocrit 32.3 % (37-47); Hemoglobin 9.1 g/dL (12.0-15.0); Mean Corp Hgb Conc 28.2 g/dL (32-36); Mean Corpuscular Hgb 26.5 pg (27.0-32.0); Mean Corpuscular Volume 93.9 fL (81-99); Mean Platelet Vol. 11.9 fl (6.2-12.0); POSITIVE COUNT YES; POSITIVE DIFFERENTIAL YES; POSITIVE MORPHOLOGY YES; Platelet Count 431 K/mm3 (150-450); RBC Distribution Width CV 21.2 % (11.6-14.6); RBC Distribution Width SD 67.6 fl (35.1-43.9); Red Blood Count 3.44 M/mm3 (4.2-5.4)
--- NOTE | 2020-12-28 07:27 | RAD_ITS ---
STUDY: X-RAY CHEST REASON FOR EXAM: Female, 75 years old. Intubation TECHNIQUE: Single AP portable view of the chest. COMPARISON: 12/28/2020 FINDINGS: Interval placement of endotracheal tube with the tip approximately 3 cm above the magnus. The patient is rotated to the right. The lungs are clear and expanded. There is no demonstrated pleural abnormality. There is moderate cardiac enlargement. Prominent hilum of the left lung worrisome for right hilar mass or lymphadenopathy correlation with CT the chest with contrast is recommended. Normal visualized pulmonary arteries. Normal visualized aortic arch and descending thoracic aorta. Normal visualized thoracic spine. Normal visualized ribs, clavicles, and shoulders. There is no demonstrated abnormality of the visualized soft tissue structures of the upper abdomen. RAD/Chest 1 View (Portable) IMPRESSION: 1. Interval placement of endotracheal tube with the tip approximately 3 cm above the magnus. 2. Suspect left hilar mass or lymphadenopathy correlation with CT the chest with contrast is recommended. 3. Cardiomegaly. Electronically Signed: Ramón Tomlinson MD at 8:48 EDT Tel , Service support ,
[2020-12-28 07:28] LABS: Absolute Lymphocyte Count 3.05 X10^3/uL (0.83-4.51); Eosinophil 1 % (0-5); Lymphocyte 15 % (19-41); Metamyelocyte 3 % (0-1); Monocyte 6 % (0-10); Myelocyte 1 (0-0); Neutrophil-Band 7 % (0-5); Neutrophil-Segmented 67 % (47-70); Nucleated Red Bld Cells,Manual 7 % (0-5); Total Cells Counted 100 (MANUAL DIFF)
--- NOTE | 2020-12-28 07:28 | RAD_ITS ---
STUDY: X-RAY - ABDOMEN/PELVIS REASON FOR EXAM: Female, 75 years old. NG Insertion TECHNIQUE: Single AP view of the abdomen / pelvis. COMPARISON: 12/19/2020 FINDINGS: Interval placement of nasogastric tube with the tip in the left upper quadrant likely in the body the stomach. There is an unremarkable bowel gas pattern. The visualized liver, spleen and kidneys are grossly normal in size and morphology. Normal soft tissue structures. Normal visualized osseous structures. RAD/Abdomen Single View (Portable) IMPRESSION: Nasogastric tube with the tip likely in the body the stomach. Electronically Signed: Ramón Tomlinson MD at 8:47 EDT Tel , Service support ,
[2020-12-28 07:29] LABS: Corrected WBC 20.3 K/mm3 (4.4-11.0); Hypochromasia RARE; Microcytosis RARE; Ovalocyte RARE; Platelet Estimate ADEQUATE (ADEQ); Stomatocyte RARE
[2020-12-28 07:31] LABS: ALB/GLOB Ratio 0.6 RATIO (0.9-2.4); AST(SGOT) 1328 U/L (15-37); Alanine Aminotransfer ALT/SGPT 650 U/L (13-56); Albumin, Serum 2.6 g/dL (3.2-5.0); Alkaline Phosphatase 214 U/L (45-117); BUN 35 mg/dL (7-18); BUN/Creat Ratio 22.2 RATIO (10-20); Calcium,Total 7.9 mg/dL (8.5-10.1); Creatinine, Serum 1.58 mg/dL (0.55-1.02); EST Glomerular Filtration Rate 34 mL/min (>60); Est Glom Filt Rate - Afr Amer 41 mL/min (>60); Estimated Creatinine Clearance 22.44 ml/min; Globulin 4.1 g/dL (2.2-4.2); Glucose 46 mg/dL (74-106); Protein, Total 6.7 g/dL (6.4-8.2)
[2020-12-28 07:32] LABS: Anion Gap 12 (5-15); Chloride 104 mmol/L (98-107); Potassium 5.4 mmol/L (3.5-5.1); Sodium Level 140 mmol/L (136-145)
[2020-12-28] MEDS: 0.9% Normal Saline 1,000 ML 999 ML IV ×3 (07:38→09:24)
[2020-12-28] MEDS: Etomidate 20 MG/10 ML Vial IV (07:39)
[2020-12-28] MEDS: Succinylcholine Chloride 200 MG/10 ML Vial 100 MG IV (07:39)
[2020-12-28] MEDS: fentaNYL 100 MCG/2 ML Ampul IV (07:47)
[2020-12-28] MEDS: MethylPREDNISolone 125 MG/2 ML Vial 80 MG IV (07:48)
[2020-12-28] MEDS: DiphenhydrAMINE 50 MG/ML Syringe 25 MG IV (07:48)
[2020-12-28] MEDS: Propofol 10MG/Ml 1,000 MG/100 ML Bottle 5.4 MG CONT INF (07:55)
[2020-12-28] MEDS: Vecuronium Bromide 10 MG/10 ML Vial IV (08:05)
[2020-12-28] MEDS: HYDROmorphone 1 MG/ML Syringe IV (08:07)
--- NOTE | 2020-12-28 08:08 | ED.VISSUMM ---
- ER Visit Summary Date of Service: 12/28/20 Chief Complaint: Hypoxia, decreased level of consciousness History of Present Illness: The patient is a 75 F who was admitted December 14 for cellulitis of her right lower extremity with a fracture of her right great toe. MRI did not show osteomyelitis. She was on TCU when she was noted to be hypoxic and lethargic. Rapid response team was called. Patient had sonorous respirations and it was felt that she may have angioedema. She was given Solu-Medrol, Benadryl, and Pepcid IV. She was placed on a nonrebreather as her pulse ox on her 4 L nasal cannula was in the 70s. Her pulse ox is currently 100% on nonrebreather. Upon arrival to the emergency department patient remains lethargic, although she does arouse to voice. I am unable to obtain review of systems. Physical Examination: Vitals: 99.3, 102/81, 79, 26, 100% on a nonrebreather. General: Well-nourished and well-developed. Head: Normocephalic atraumatic. HEENT: No angioedema of the lips. The tongue is slightly thick, but appears dry. I am unable to visualize the posterior soft tissues as patient will not open her mouth. Neck: Supple, no lymphadenopathy. No JVD. Nontender. Cardiovascular: Regular rate and rhythm. 2 out of 6 systolic murmurs. Respiratory: Moderate respiratory distress. Tachypnea. Clear to auscultation bilaterally anteriorly. Abdominal: Soft, nontender, nondistended, normal bowel sounds. No guarding, rebound, or peritoneal signs. Back: Nontender. Extremities: Nontender, no edema. Right great toenail is absent. However, there is no appreciable erythema or warmth. There is no induration or fluctuance. I am unable to palpate a dorsalis pedis pulse bilaterally. Skin: Normal color, no rash. Neurologic: Lethargic, but arouses to voice. Psych: Normal affect. Test Results: EKG is sinus at 72 with right bundle branch block and nonspecific ST changes. There is a great deal of artifact. Is unchanged from September 042019. CBC shows a white count of 20.6 with an H&H of 9.1 and 32.3. There are 7 bands, 15 lymphocytes, 3 metamyelocytes, and 1 myelocyte. Chem-7 shows a potassium of 5.4, glucose of 46, BUN of 35, creatinine 1.58. LFTs show a total bili of 1.4 with an albumin of 2.6, ALT of 650, AST of 1328. Alk phos is 214. INR is 2.1. PTT is 49.5. BNP is 691.2. Lactic acid is 7.3. COVID-19 rapid antigen is negative. Urinalysis shows blood, 5-10 white blood cells, and 3+ bacteria. Clinical Impression(s) from Imaging Studies Chest X-Ray 12/28/20 07:27 IMPRESSION: 1. Interval placement of endotracheal tube with the tip approximately 3 cm above the magnus. 2. Suspect left hilar mass or lymphadenopathy correlation with CT the chest with contrast is recommended. 3. Cardiomegaly. Electronically Signed: Ramón Tomlinson MD at 8:48 EDT Tel , Service support , KUB X-Ray 12/28/20 07:28 IMPRESSION: Nasogastric tube with the tip likely in the body the stomach. Electronically Signed: Ramón Tomlinson MD at 8:47 EDT Tel , Service support , CT brain shows no acute disease. Emergency Department Course and Treatment: Patient was given amp of D50 IV. There was no change in her level of consciousness. She was given Solu-Medrol, Benadryl, Zosyn, times a day, succinylcholine, vecuronium IV. She was given a 30 cc/kg bolus of normal saline. Patient does appear to have a mild urinary tract infection. However, I do not think that this is the source of the fever of 101.8 degrees that was found when she had a temperature [place] placed or her septic shock. She was given vancomycin IV as well. Intubation was undertaken in the emergency department. There does not seem to be any angioedema of her tongue. However, there is significant redundant tissue in the oropharynx. Attempt was made with glide scope without success. The patient was easily bagged up to a oxygen saturation of 100%. Under direct visualization a 7 tube was placed and the patient tolerated it well. She was then sedated with fentanyl and propofol. Treatment Plan: Patient was discussed with Dr. Mueller. She will also be discussed with the hospitalist and admitted for further evaluation and treatment. Disposition: Admitted in critical condition. Impression: 1. Septic shock. 2. Hypoglycemia. 3. Respiratory failure. 4. Intubation by ED physician. 5. Coagulopathy on Eliquis. 6. Critical care time 45 minutes. 7. UTI. This note was generated with [employer] dictation software. It may contain incorrect words, spelling, and punctuation that were not noted in review of the chart prior to signing ED Disposition - Plan for ED Patient: Referrals: Yesenia Leon [employer]ING RIG OPERATOR, WE[employer] SERVICING RIG OPERATOR-C [Primary Care Provider] -
[2020-12-28 08:20] LABS: Bedside Glucose 127 mg/dL (70-110)
--- NOTE | 2020-12-28 08:26 | PCM.CON.CC ---
Problem List (1) Other specified peripheral vascular diseases Status: Acute (2) Non-pressure chronic ulcer of other part of left foot with fat layer exposed Status: Chronic (3) Fracture of right great toe Status: Acute Qualifiers: Encounter type: sequela Fracture type: closed Phalanx: unspecified phalanx Fracture alignment: nondisplaced Qualified Code(s): S92.404S - Nondisplaced unspecified fracture of right great toe, sequela (4) Cellulitis of right leg Status: Acute (5) Debility Status: Acute (6) Depression Status: Chronic (7) Diabetic polyneuropathy Status: Chronic (8) Atrial fibrillation Status: Chronic (9) Osteoporosis Status: Chronic (10) Gastroesophageal reflux disease Status: Chronic (11) Obesity Status: Chronic Qualifiers: Obesity type: due to excess calories Obesity classification: adult class 2 (BMI 35 - 39.9) Serious obesity comorbidity presence: with serious comorbidity Body mass index: BMI 38.0-38.9 Qualified Code(s): E66.01 - Morbid (severe) obesity due to excess calories; Z68.38 - Body mass index [BMI] 38.0-38.9, adult (12) COPD (chronic obstructive pulmonary disease) Status: Chronic (13) Acute on chronic respiratory failure with hypoxia Status: Chronic (14) Non-rheumatic aortic stenosis Status: Chronic (15) H/O aortic valve replacement Status: Chronic Comment: TAVR: 23 mm Guillaume-Sapiens S3 valve 12/03/2016 (16) Chronic diastolic heart failure Status: Chronic (17) Left carotid artery stenosis Status: Chronic (18) Hyperlipidemia Status: Chronic Qualifiers: (19) Essential (primary) hypertension Status: Chronic Reason for Consult Date of Consultation: 12/28/20 - Evaluated in ED Reason for Consultation: Respiratory failure History of Present Illness: The patient is a 75 year old F with past medical history listed below, who presented to [facility] on 12/28/2020 as a rapid response on TCU. Patient reportedly was seen on December 14 for cellulitis of the right lower extremity with an associated fracture of the right great toe. MRI did not show any osteomyelitis, but patient was on the TCU for antibiotic therapy. At approximately 6 AM, rapid response was called secondary to the patient being noted to be hypoxic and lethargic. Initial concern was for angioedema, so the patient was given Solu-Medrol, Benadryl and Pepcid. Patient was noted to be in the 70s on her baseline 4 L nasal cannula. Patient was placed on nonrebreather with improvement. Patient was transferred to the emergency department for further evaluation. In the emergency department, patient was lethargic, but did arouse to voice. Given patient's respiratory status, patient was prepped for intubation shortly after arrival. On arrival, patient was noted to have a blood pressure of 102/81, but tachypneic at 26 despite saturating 100% on a nonrebreather. EKG showed right bundle branch block. Laboratory data showed a leukocytosis of 20.6 with a hemoglobin of 9.1, but differential showed 7 bands, 3 metamyelocytes and 1 myelocyte. Chem-7 showed an elevated potassium of 5.4, glucose of 46 and creatinine of 1.58. Patient also had elevated liver function studies and an INR of 2.1. BNP was elevated at 691 and lactate was elevated at 7.3. Patient was given an amp of D50 with no change in mentation, so patient was given succinylcholine, vecuronium, Zosyn and a 30 cc/kg bolus of normal saline. Patient was a difficult intubation secondary to redundant pharyngeal tissue, so patient was intubated with a 7?0 endotracheal tube. Postintubation chest x-ray was evaluated by myself showing bilateral alveolar infiltrates, RVH and supportive devices in appropriate positions. I do not need to participate with intubation as the patient was intubated on my arrival. [place] scope was used, but no need for fiberoptic bronchoscopy. My exam was relatively limited given patient's paralysis. Unable to obtain a review of systems or any further history. Most of the history was from discussion with ER staff and review of the medical record. Past Medical History Past Medical History (Chronic Problems): Chronic Problems (Last Reviewed 12/10/20 @ 11:[address] Brown Vargas MD) Non-pressure chronic ulcer of other part of left foot with fat layer exposed (Chronic) Chronic ulcer of great toe of right foot with fat layer exposed (Chronic) Depression (Chronic) Peripheral arterial occlusive disease (Chronic) Diabetic polyneuropathy (Chronic) Atrial fibrillation (Chronic) Hypertension (Chronic) Hypokalemia (Chronic) Osteoporosis (Chronic) Gastroesophageal reflux disease (Chronic) Insomnia (Chronic) Obesity (Chronic) Acute on chronic diastolic CHF (congestive heart failure) (Chronic) COPD exacerbation (Chronic) Diabetes (Chronic) Toxic multinodular goiter (Chronic) Polyneuropathy due to type 2 diabetes mellitus (Chronic) COPD (chronic obstructive pulmonary disease) (Chronic) Acute on chronic respiratory failure with hypoxia (Chronic) Paroxysmal atrial fibrillation (Chronic) Anemia (Chronic) Non-rheumatic aortic stenosis (Chronic) H/O aortic valve replacement (Chronic 12/03/16) TAVR: 23 mm Guillaume-Sapiens S3 valve 12/03/2016 Chronic diastolic heart failure (Chronic) Left carotid artery stenosis (Chronic) Right bundle branch block (RBBB) (Chronic) Hyperlipidemia (Chronic) Essential (primary) hypertension (Chronic) Medical History: Medical History (Last Reviewed 12/10/20 @ 11:[address] Brown Vargas MD) Paroxysmal atrial fibrillation (Chronic) I48.0 Anemia (Chronic) D64.9 Non-rheumatic aortic stenosis (Chronic) I35.0 Chronic diastolic heart failure (Chronic) I50.32 Left carotid artery stenosis (Chronic) I65.22 Right bundle branch block (RBBB) (Chronic) I45.10 Hyperlipidemia (Chronic) E78.5 Essential (primary) hypertension (Chronic) I10 Type 2 diabetes mellitus E11.9 Anxiety F41.9 Arthritis M19.90 Asthma J45.909 Breast lump N63.0 COPD (chronic obstructive pulmonary disease) J44.9 Carotid artery stenosis I65.29 Carpal tunnel syndrome G56.00 Depression F32.9 Fibromyalgia M79.7 GERD (gastroesophageal reflux disease) K21.9 H/O transfusion of whole blood Z92.89 Hypothyroidism E03.9 IBS (irritable bowel syndrome) K58.9 MTHFR mutation E72.12 Obesity E66.9 Osteoporosis M81.0 RLS (restless legs syndrome) G25.81 Skin cancer C44.90 Tuberculosis A15.9 Secondary pulmonary arterial hypertension I27.21 Thrombocytopenia D69.6 Secondary to sepsis versus heparin-induced thrombocytopenia Non-STEMI (non-ST elevated myocardial infarction) (Inactive) Onset Date: 09/27/19 I21.4 Seasonal allergies J30.2 Allergies ciprofloxacin [From Cipro] Allergy (Verified 12/28/20 06:50) Rash ciprofloxacin HCl [From Cipro] Allergy (Verified 12/28/20 06:50) Rash gabapentin [From Neurontin] Allergy (Verified 12/28/20 06:50) Rash heparin Allergy (Verified 12/28/20 06:50) Low platelets tuberculin, purified protein deriva Adverse Reaction (Verified 12/28/20 06:50) Other Home Medications: Ambulatory Orders Medication Instructions Recorded Albuterol Aerosols [Ventolin 2.5 mg INHALATION Q4H PRN PRN 09/26/19 Aerosols] Albuterol IH (ProAir) [Proair Hfa] 2 puff INHALATION Q6H PRN PRN 09/26/19 Cyanocobalamin (Vitamin B-12) 1,000 mcg PO DAILY 09/26/19 [Vitamin B-12] Fluticasone 0.05% [Flonase Nasal 2 spray NASAL DAILY 09/26/19 [place]] Fluticasone/Salmeterol [Advair Hfa 2 puff INHALATION BID 09/26/19 115-21 Mcg Inhaler] L.acidoph,Paracasei, B.lactis 1 ea PO DAILY 09/26/19 [Probiotic] Nystatin [Nyamyc] 30 gm TP BID 09/26/19 Paroxetine HCl [Paxil] 40 mg PO DAILY 09/26/19 Ropinirole HCl 2 mg PO BID 09/26/19 Tiotropium [place] [Spiriva] 18 mcg IH DAILY 09/26/19 calcium carbonate 500 mg (1,250 1 tab PO DAILY tab 01/11/20 mg)-vitamin D3 200 unit tablet lisinopril 10 mg tablet 10 mg PO DAILY 05/05/20 potassium chloride 10 mEq 10 meq PO BID tab 05/13/20 tablet,extended release omeprazole 20 mg capsule,delayed 40 mg PO DAILY cap 09/03/20 release nitroglycerin 0.4 mg sublingual 0.4 mg SUBLINGUAL PRN PRN #25 tab 10/30/20 tablet Amiodarone HCl 200 mg PO DAILY 12/12/20 Apixaban [Eliquis] 2.5 mg PO BID 12/12/20 Aspirin E.C. [Ecotrin] 81 mg PO DAILY@0800 12/12/20 Atorvastatin Calcium [Lipitor] 80 mg PO QHS 12/12/20 Cefdinir [Omnicef [equiv]] 300 mg PO Q12H 12/12/20 Denosumab [Prolia] 60 mg SC [id number] 12/12/20 Furosemide [Lasix] 40 mg PO BID@1000,1800 12/12/20 Insulin Glargine [Lantus SoloStar 15 units SC BREAKFAST 12/12/20 Pen] Insulin Lispro [Humalog KwikPen] 8 unit SC TIDCM 12/12/20 Insulin Lispro [Humalog KwikPen] See Protocol SC TIDCM 12/12/20 Iron Polysaccharide Complex 150 mg PO DAILY #0 12/12/20 [Ferrex 150] Levothyroxine Sodium [Synthroid] 25 mcg PO DAILY 12/12/20 Linezolid 600 mg PO BID 12/12/20 Metoprolol Tartrate 25 mg PO BID 12/12/20 Oxycodone [Oxyir] 5 mg PO TID PRN PRN 2 Days #10 tab 12/12/20 Suvorexant [Belsomra] 20 mg PO QHS #0 12/12/20 Surgical History: Surgical History (Last Reviewed 12/10/20 @ 11:[address] Brown Vargas MD) H/O aortic valve replacement (Chronic) Onset Date: 12/03/16 Z95.2 TAVR: 23 mm Guillaume-Sapiens S3 valve 12/03/2016 H/O: hysterectomy Z98.890, Z90.710 H/O laminectomy Z98.890 History of left heart catheterization Onset Date: 09/03/16 Z98.890 History of tympanoplasty Z98.890 Hx of melanoma excision Z98.890, Z85.820 1997 Hx of rotator cuff surgery Z98.890 JAIME S/P hip replacement Z96.649 S/p bilateral carpal tunnel release Z98.890 Surgical History: appendectomy - Right hip replacement, back surgery, laminectomy, carpal tunnel surgery, right leg hematoma extraction, hysterectomy, rotator cuff repair, total hip arthroplasty - Right., - - Aortic valve replacement, TAVR, Laminectomy, Tympanostomy, Melanoma excision, Right carpal tunnel release. 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 Juan Blunt DO) Mother Arthritis Diabetes Hormone deficiency CVA (cerebral vascular accident) Colon cancer Cancer Sister Bleeding disorder CVA (cerebral vascular accident) Colon cancer Daughter Cancer Seizures Father Diabetes Leukemia Grandmother Diabetes Unknown Asthma Heart disease Hypertension High cholesterol Thyroid disorder Osteoporosis Cancer Tuberculosis History Items: No pertinent history Review of Systems Unable to obtain accurate/complete ROS d/t: Intubated and paralyzed Objective: Chest x-ray was personally reviewed showing bilateral alveolar infiltrates, cardiomegaly and support devices in appropriate positions. Patient did have an ABG on TCU (7.32/38 point / 100% on nonrebreather) Patient did recently have an echocardiogram in November 2020 showing an EF of 65% with diffuse mitral valve thickening and a pulmonary artery pressure of 46 mmHg. Patient also noted to have moderate aortic stenosis with a peak aortic valve gradient of 52. Patient does not have any pulmonary function tests available for review. - Physical Exam Vitals/I&O's: Vital Signs Temp Pulse Resp BP Pulse Ox 37.4 C H 71 30 H 117/91 H 89 12/28/20 06:37 12/28/20 07:28 12/28/20 07:28 12/28/20 07:33 12/28/20 07:28 Oxygen Flow Rate (L/min) 10 Oxygen Delivery Method Nasal Cannula Weight: 89.8 kg Body Mass Index (BMI) 38.6 Finger Stick Blood Glucose 112 General: - - Intubated and paralyzed. Obese. Vent synchrony noted. HEENT: Atraumatic, Normocephalic, - - Pupils unreactive secondary to paralysis Oral: No Gingival or Mucosal Lesions/ Ulcerations, Dry Mucosa, - - Slight bleeding noted in the posterior pharynx. Crowded posterior pharynx Neck: Supple, No Nodes, Trachea Midline, JVD, Right Lungs: No rhonchi, No wheeze, No rales, Diminished, - - Symmetric expansion Cardiovascular: Regular rate, Regular Rhythm, Normal S1, Normal S2, Murmur - Grade 2 out of 6 systolic ejection murmur at the right sternal border, No rub noted, No Gallop Abdomen: Soft, Non Tender, Non-Distended, Bowel Sounds Not Present, - - Mild bruising noted. Some striae noted. Extremities: No cyanosis, No edema, Clubbing Skin: - - Large right toe without a nail. No associated erythema or fluctuance. Extremely dry skin, but no ulcerations or breakdowns. Musculoskeletal: No Tenderness to Palpation of Joints or Extremities Lymphatic: No Cervical, Supraclavicular, or Inguinal Adenopathy Neurological: - - Patient paralyzed Psych/Mental Status: Flat Affect Microbiology Past 72 Hours 12/28/20 07:15 Mucosa - Nose SARS-CoV-2 Antigen (Rapid) - Final Laboratory Results 12/28/20 06:44: WBC Not Reportable, Corrected WBC 20.3 H, RBC 3.44 L, Hgb 9.1 L, Hct 32.3 L, MCV 93.9, MCH 26.5 L, MCHC 28.2 L, RDW Std Deviation 67.6 H, RDW Coeff of Jeff 21.2 H, Plt Count 431, MPV 11.9, Neut % (Auto) Not Reportable, Absolute Neuts (auto) 15.0 H, Absolute Lymphs (auto) 3.05, Total Counted 100, Neutrophils % (Manual) 67, Band Neutrophils % 7 H, Lymphocytes % (Manual) 15 L, Monocytes % (Manual) 6, Eosinophils % (Manual) 1, Metamyelocytes % 3 H, Myelocytes % 1 H, Nucleated RBCs/100 WBC 7 H, Diff Path Review May foll, Platelet Estimate ADEQUATE, Hypochromasia RARE, Microcytosis RARE, Ovalocytes RARE, Stomatocytes RARE 12/28/20 06:44: PT 22.9 H, INR 2.1, APTT 49.5 H 12/28/20 06:44: Sodium 140, Potassium 5.4 H, Chloride 104, Carbon Dioxide 24.0, Anion Gap 12, BUN 35 H, Creatinine 1.58 H, Estim Creat Clear Calc 22.44, Est GFR (MDRD) Af Amer 41 L, Est GFR (MDRD) Non-Af 34 L, BUN/Creatinine Ratio 22.2 H, Glucose 46 L, Calcium 7.9 L, Total Bilirubin 1.40 H, AST 1328 H, ALT 650 H, Alkaline Phosphatase 214 H, Total Protein 6.7, Albumin 2.6 L, Globulin 4.1, Albumin/Globulin Ratio 0.6 L 12/28/20 06:44: Lactic Acid 7.3 H* 12/28/20 06:44: B-Natriuretic Peptide 691.2 H 12/28/20 07:55: POC Glucose 127 H Current Medications Sodium Chloride () 1,000 mls @ 150 mls/hr IV .Q6H40M DIAMOND Sodium Chloride () 1,000 mls @ 999 mls/hr IV .Q1H1M DIAMOND; Protocol Stop: 12/28/20 10:02 Last Admin: 12/28/20 07:38 Dose: 999 mls/hr Documented by: Fentanyl Citrate 1,000 mcg/ (Sodium Chloride) 100 mls @ 5 mls/hr CONT INF .Q20H DIAMOND; Protocol Last Admin: 12/28/20 07:54 Dose: 50 mcg/hr, 5 mls/hr Documented by: Piperacillin Sod/Tazobactam (Sod 4.5 gm/ Sodium Chloride) 100 mls @ 200 mls/hr IV X1 ONE Stop: 12/28/20 08:30 Propofol (Diprivan) 1,000 mg in 100 mls @ 5.388 mls/hr CONT INF .Q12H DIAMOND; Protocol Laboratory Results - last 24 hr 12/28/20 12/28/20 12/28/20 06:44 06:44 06:44 WBC Not Reportable Corrected WBC 20.3 H RBC 3.44 L Hgb 9.1 L Hct 32.3 L MCV 93.9 MCH 26.5 L MCHC 28.2 L RDW Std Deviation 67.6 H RDW Coeff of Jeff 21.2 H Plt Count 431 MPV 11.9 Neut % (Auto) Not Reportable Absolute Neuts (auto) 15.0 H Absolute Lymphs (auto) 3.05 Total Counted 100 Neutrophils % (Manual) 67 Band Neutrophils % 7 H Lymphocytes % (Manual) 15 L Monocytes % (Manual) 6 Eosinophils % (Manual) 1 Metamyelocytes % 3 H Myelocytes % 1 H Nucleated RBCs/100 WBC 7 H Diff Path Review May foll Platelet Estimate ADEQUATE Hypochromasia RARE Microcytosis RARE Ovalocytes RARE Stomatocytes RARE PT 22.9 H INR 2.1 APTT 49.5 H Sodium 140 Potassium 5.4 H Chloride 104 Carbon Dioxide 24.0 Anion Gap 12 BUN 35 H Creatinine 1.58 H Estim Creat Clear Calc 22.44 Est GFR (MDRD) Af Amer 41 L Est GFR (MDRD) Non-Af 34 L BUN/Creatinine Ratio 22.2 H Glucose 46 L Lactic Acid Calcium 7.9 L Total Bilirubin 1.40 H AST 1328 H ALT 650 H Alkaline Phosphatase 214 H B-Natriuretic Peptide Total Protein 6.7 Albumin 2.6 L Globulin 4.1 Albumin/Globulin Ratio 0.6 L POC Glucose 12/28/20 12/28/20 12/28/20 06:44 06:44 07:55 WBC Corrected WBC RBC Hgb Hct MCV MCH MCHC RDW Std Deviation RDW Coeff of Jeff Plt Count MPV Neut % (Auto) Absolute Neuts (auto) Absolute Lymphs (auto) Total Counted Neutrophils % (Manual) Band Neutrophils % Lymphocytes % (Manual) Monocytes % (Manual) Eosinophils % (Manual) Metamyelocytes % Myelocytes % Nucleated RBCs/100 WBC Diff Path Review Platelet Estimate Hypochromasia Microcytosis Ovalocytes Stomatocytes PT INR APTT Sodium Potassium Chloride Carbon Dioxide Anion Gap BUN Creatinine Estim Creat Clear Calc Est GFR (MDRD) Af Amer Est GFR (MDRD) Non-Af BUN/Creatinine Ratio Glucose Lactic Acid 7.3 H* Calcium Total Bilirubin AST ALT Alkaline Phosphatase B-Natriuretic Peptide 691.2 H Total Protein Albumin Globulin Albumin/Globulin Ratio POC Glucose 127 H Assessment/Plan RECOMMENDATIONS: 1. Agree with empiric antibiotics and 30 cc/kg bolus per sepsis protocol. Panculture prior to antibiotics 2. Hold on additional IV fluids after bolus 3. Continue mechanical ventilation. Fentanyl and propofol for synchrony 4. Wean oxygen as tolerated. Vent settings as ordered in ER 5. Monitor blood sugars closely with sliding scale insulin as necessary 6. Hold Eliquis for possible need for intervention such as central line IMPRESSIONS: 1. Acute on chronic hypoxic respiratory failure Exact etiology is unclear at this time. Differential diagnosis would include: Septic shock secondary to pneumonia, congestive heart failure, upper airway collapse secondary to hypoglycemia. Patient successfully intubated by ER staff, but will likely require propofol and fentanyl after paralysis has resolved. Patient without significant acidosis on ABG on TCU. Patient does have bilateral fluffy infiltrates suggestive of CHF, but also has significant leukocytosis with left shift suggestive of possible septic shock. Spontaneous breathing and awakening trials per protocol. 2. Possible septic shock versus hypoxic lactic acidosis Patient has been on antibiotics secondary to a great toe/right leg cellulitis. Patient did have a recent MRI that was not consistent with osteomyelitis. Patient should be continued on empiric antibiotics. Defer to hospitalist on infectious disease consultation. Patient was significantly hypoxic when found, so this may account for lactic acidosis. However, patient also has a significant leukocytosis with left shift. Would give initial fluid bolus for septic shock, but would not recommend maintenance fluids unless patient is hypotensive. 3. Chronic A. fib/chronic diastolic CHF/aortic stenosis Patient currently on amiodarone and metoprolol at baseline. Would likely hold metoprolol for 24 hours pending evaluation for hypotension. Okay to continue with amiodarone from my perspective. Hold anticoagulation as patient may require a central line in the next 24 hours. 4. CKD stage III Patient was being followed by nephrology in TCU. Patient has been getting diuretics intermittently as necessary. Unclear if patient's hyperkalemia is secondary to acidosis. 5. Hypoglycemia/diabetes mellitus type 2 with peripheral vascular disease and diabetic nephropathy/neuropathy Hold basal insulin for now. Treat with sliding scale insulin only. Unclear if an element of hypoglycemia related to septicemia. Recommend panculture. 6. Debility/obesity/multiple allergies/poor history Complicates care, management, recovery and prognosis. Unable to discuss CODE STATUS with the patient at this time, so patient will be a default full code for now. Okay to initiate tube feeds from my perspective. TIME: 45 minutes critical care time spent addressing patient's acute on chronic respiratory failure, possible septic shock, CHF, CKD stage III, hyperglycemia, review of all data and collaboration with care team (7:45 AM to 9 AM) [id number] Critical care first hour
[2020-12-28 08:33] LABS: Mucous, Urine 0 SEEN /hpf (<or=2+)
[2020-12-28 08:45] LABS: Color, Urine Yellow (Yellow); Glucose, Dipstick Normal (Normal); Ketone-Dipstick Negative (Negative); Leukocyte Esterase-Dipstick 25 /ul (Negative); Nitrite-Dipstick Negative (Negative); Occult Blood-Urine 150 /ul (Negative); Protein-Dipstick 500 mg/dl (Negative); Urine Bilirubin Dipstick Negative (Negative); Urine Clarity Sl. Cloudy (Clear); Urine Urobilinogen Normal (Normal)
[2020-12-28 08:52] LABS: Bacteria 3+ /hpf (None Seen); Hyaline Cast 0-5 SEEN /lpf (0-5); Red Blood Cells-Urine 0-5 SEEN /hpf (0-5); Squamous Epithelial Cells - UA 0-5 SEEN /hpf (5-10); White Blood Cells 5-10 SEEN /hpf (0-5)
[2020-12-28] MEDS: Ipratropium/Albuterol Sulfate 3 ML AMPUL.NEB INHALATION (09:06)
[2020-12-28 09:36] LABS: Base Excess -5 mmol/L (-2 to +2); Bicarbonate 22.3 mmol/L (22-26); Blood Gas Specimen Type ART; FI02 100; Mode AC; O2 Delivery Device Adult Vent; PEEP 5; PO2 73 mmHG (75-100); RR 14; SITE L Radial; SO2 92 % (95-99); Total Carbon Dioxide 24 mmol/L; Vt 400; pCO2 49.7 mmHg (35-45); pH 7.26 (7.35-7.45)
[2020-12-28] MEDS: Acetaminophen 500 MG Tablet 1000 MG PO (10:02)
--- NOTE | 2020-12-28 10:06 | NURSING ---
DR BRANDON SOMMER
--- NOTE | 2020-12-28 10:12 | NURSING ---
ICU ACUTE HYPOXIC RESP FAILURE, SEPTIC SHOCK
--- NOTE | 2020-12-28 10:13 | NURSING ---
ICU 3
--- NOTE | 2020-12-28 10:45 | ED.RN ---
report called to samia medina in icu.
[2020-12-28 11:00] LABS: Reflex Lactate? Y
[2020-12-28 13:01] LABS: Lactic Acid 3.1 mmol/L (0.4-1.9)
--- NOTE | 2020-12-28 13:38 | HP.PCM_ITS ---
History of Present Illness Date of Admission: 12/28/20 Chief Complaint: altered mental status The patient is a 75 year old F past medical history as outlined was admitted through the ED from the transitional care unit on 12/28/2020. She had a rapid response called at around 6 AM on the day of admission on account of patient noted to be hypoxic and lethargic. Patient was initially thought to have angioedema of the tongue and so she was given Solu-Medrol, Benadryl and Pepcid. However she was noted to be saturating in the 70s on her baseline 4 L of oxygen so she was placed on nonrebreather mask and sent to the ED for further evaluation. In the ED, on account of worsening respiratory status, patient was intubated. Labs showed WBC of 20.6 and hemoglobin of 9.1 and chemistry showed potassium of 5.4 with glucose of 46 and creatinine of 1.58. INR was 2.1. BNP was elevated at 691 and lactic acid was 7.3. Total bilirubin was 1.4 and AST was 1328 with ALT of 650 and ALP of 214. This x-ray showed interval placement of the endotracheal tube as well as suspected left hilar mass or adenopathy and cardiomegaly. CT of the brain showed chronic involutional changes of the brain. She was started on broad-spectrum antibiotics and resuscitated with IV fluids per sepsis protocol. She was given half an amp of D50 and admitted and managed for acute on chronic hypoxic respiratory failure and possible septic shock. [] Past Medical History Past Medical History (Chronic Problems): Chronic Problems (Last Reviewed 12/10/20 @ 11:[address] Brown Vargas MD) Non-pressure chronic ulcer of other part of left foot with fat layer exposed (Chronic) Chronic ulcer of great toe of right foot with fat layer exposed (Chronic) Depression (Chronic) Peripheral arterial occlusive disease (Chronic) Diabetic polyneuropathy (Chronic) Atrial fibrillation (Chronic) Hypertension (Chronic) Hypokalemia (Chronic) Osteoporosis (Chronic) Gastroesophageal reflux disease (Chronic) Insomnia (Chronic) Obesity (Chronic) Acute on chronic diastolic CHF (congestive heart failure) (Chronic) COPD exacerbation (Chronic) Diabetes (Chronic) Toxic multinodular goiter (Chronic) Polyneuropathy due to type 2 diabetes mellitus (Chronic) COPD (chronic obstructive pulmonary disease) (Chronic) Acute on chronic respiratory failure with hypoxia (Chronic) Paroxysmal atrial fibrillation (Chronic) Anemia (Chronic) Non-rheumatic aortic stenosis (Chronic) H/O aortic valve replacement (Chronic 12/03/16) TAVR: 23 mm Guillaume-Sapiens S3 valve 12/03/2016 Chronic diastolic heart failure (Chronic) Left carotid artery stenosis (Chronic) Right bundle branch block (RBBB) (Chronic) Hyperlipidemia (Chronic) Essential (primary) hypertension (Chronic) Medical History: Medical History (Last Reviewed 12/10/20 @ 11:[address] Brown Vargas MD) Paroxysmal atrial fibrillation (Chronic) I48.0 Anemia (Chronic) D64.9 Non-rheumatic aortic stenosis (Chronic) I35.0 Chronic diastolic heart failure (Chronic) I50.32 Left carotid artery stenosis (Chronic) I65.22 Right bundle branch block (RBBB) (Chronic) I45.10 Hyperlipidemia (Chronic) E78.5 Essential (primary) hypertension (Chronic) I10 Type 2 diabetes mellitus E11.9 Anxiety F41.9 Arthritis M19.90 Asthma J45.909 Breast lump N63.0 COPD (chronic obstructive pulmonary disease) J44.9 Carotid artery stenosis I65.29 Carpal tunnel syndrome G56.00 Depression F32.9 Fibromyalgia M79.7 GERD (gastroesophageal reflux disease) K21.9 H/O transfusion of whole blood Z92.89 Hypothyroidism E03.9 IBS (irritable bowel syndrome) K58.9 MTHFR mutation E72.12 Obesity E66.9 Osteoporosis M81.0 RLS (restless legs syndrome) G25.81 Skin cancer C44.90 Tuberculosis A15.9 Secondary pulmonary arterial hypertension I27.21 Thrombocytopenia D69.6 Secondary to sepsis versus heparin-induced thrombocytopenia Non-STEMI (non-ST elevated myocardial infarction) (Inactive) Onset Date: 09/27/19 I21.4 Seasonal allergies J30.2 Allergies ciprofloxacin [From Cipro] Allergy (Verified 12/28/20 06:50) Rash ciprofloxacin HCl [From Cipro] Allergy (Verified 12/28/20 06:50) Rash gabapentin [From Neurontin] Allergy (Verified 12/28/20 06:50) Rash heparin Allergy (Verified 12/28/20 06:50) Low platelets tuberculin, purified protein deriva Adverse Reaction (Verified 12/28/20 06:50) Other Home Medications: Ambulatory Orders Medication Instructions Recorded Albuterol Aerosols [Ventolin 2.5 mg INHALATION Q4H PRN PRN 09/26/19 Aerosols] Albuterol IH (ProAir) [Proair Hfa] 2 puff INHALATION Q6H PRN PRN 09/26/19 Cyanocobalamin (Vitamin B-12) 1,000 mcg PO DAILY 09/26/19 [Vitamin B-12] Fluticasone 0.05% [Flonase Nasal 2 spray NASAL DAILY 09/26/19 [place]] Fluticasone/Salmeterol [Advair Hfa 2 puff INHALATION BID 09/26/19 115-21 Mcg Inhaler] L.acidoph,Paracasei, B.lactis 1 ea PO DAILY 09/26/19 [Probiotic] Nystatin [Nyamyc] 30 gm TP BID 09/26/19 Paroxetine HCl [Paxil] 40 mg PO DAILY 09/26/19 Ropinirole HCl 2 mg PO BID 09/26/19 Tiotropium [place] [Spiriva] 18 mcg IH DAILY 09/26/19 calcium carbonate 500 mg (1,250 1 tab PO DAILY tab 01/11/20 mg)-vitamin D3 200 unit tablet lisinopril 10 mg tablet 10 mg PO DAILY 05/05/20 potassium chloride 10 mEq 10 meq PO BID tab 05/13/20 tablet,extended release omeprazole 20 mg capsule,delayed 40 mg PO DAILY cap 09/03/20 release nitroglycerin 0.4 mg sublingual 0.4 mg SUBLINGUAL PRN PRN #25 tab 10/30/20 tablet Amiodarone HCl 200 mg PO DAILY 12/12/20 Apixaban [Eliquis] 2.5 mg PO BID 12/12/20 Aspirin E.C. [Ecotrin] 81 mg PO DAILY@0800 12/12/20 Atorvastatin Calcium [Lipitor] 80 mg PO QHS 12/12/20 Cefdinir [Omnicef [equiv]] 300 mg PO Q12H 12/12/20 Denosumab [Prolia] 60 mg SC [id number] 12/12/20 Furosemide [Lasix] 40 mg PO BID@1000,1800 12/12/20 Insulin Glargine [Lantus SoloStar 15 units SC BREAKFAST 12/12/20 Pen] Insulin Lispro [Humalog KwikPen] 8 unit SC TIDCM 12/12/20 Insulin Lispro [Humalog KwikPen] See Protocol SC TIDCM 12/12/20 Iron Polysaccharide Complex 150 mg PO DAILY #0 12/12/20 [Ferrex 150] Levothyroxine Sodium [Synthroid] 25 mcg PO DAILY 12/12/20 Linezolid 600 mg PO BID 12/12/20 Metoprolol Tartrate 25 mg PO BID 12/12/20 Oxycodone [Oxyir] 5 mg PO TID PRN PRN 2 Days #10 tab 12/12/20 Suvorexant [Belsomra] 20 mg PO QHS #0 12/12/20 Folic Acid 1 mg PO DAILY 12/28/20 MethylPREDNISolone [Solu-Medrol] 40 mg IV DAILY 12/28/20 Pramipexole Di-HCl [Mirapex] 1 mg PO DAILY 12/28/20 Umeclidinium Gibsonia Inhaler 1 puff IH DAILY 12/28/20 [Incruse Ellipta Inhaler] Zolpidem Tartrate [Ambien 5 mg PO QHS PRN PRN 12/28/20 (Generic)] Surgical History: Surgical History (Last Reviewed 12/10/20 @ 11:[address] Brown Vargas MD) H/O aortic valve replacement (Chronic) Onset Date: 12/03/16 Z95.2 TAVR: 23 mm Guillaume-Sapiens S3 valve 12/03/2016 H/O: hysterectomy Z98.890, Z90.710 H/O laminectomy Z98.890 History of left heart catheterization Onset Date: 09/03/16 Z98.890 History of tympanoplasty Z98.890 Hx of melanoma excision Z98.890, Z85.820 1997 Hx of rotator cuff surgery Z98.890 JAIME S/P hip replacement Z96.649 S/p bilateral carpal tunnel release Z98.890 Surgical History: appendectomy - Right hip replacement, back surgery, laminectomy, carpal tunnel surgery, right leg hematoma extraction, hysterectomy, rotator cuff repair, total hip arthroplasty - Right., - - Aortic valve replacement, TAVR, Laminectomy, Tympanostomy, Melanoma excision, Right carpal tunnel release. 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 Juan Blunt DO) Mother Arthritis Diabetes Hormone deficiency CVA (cerebral vascular accident) Colon cancer Cancer Sister Bleeding disorder CVA (cerebral vascular accident) Colon cancer Daughter Cancer Seizures Father Diabetes Leukemia Grandmother Diabetes Unknown Asthma Heart disease Hypertension High cholesterol Thyroid disorder Osteoporosis Cancer Tuberculosis History Items: No pertinent history Review of Systems Unable to obtain accurate/complete ROS d/t: patient intubated and sedated VTE Information - Inpt Only VTE Present on Admission: No VTE Pharm Prophylaxis ordered?: Yes Patient Problems: Active and Suspected Problems (Last Reviewed 12/10/20 @ 11:[address] Brown Vargas MD) Other specified peripheral vascular diseases (Acute) Fracture of right great toe (Acute) Cellulitis of right leg (Acute) Debility (Acute) - Physical Exam Vitals/I&O's: Vital Signs Temp Pulse Resp BP Pulse Ox 99.4 F H 62 16 123/44 H 99 12/28/20 12:00 12/28/20 12:05 12/28/20 12:00 12/28/20 12:00 12/28/20 12:00 Oxygen Flow Rate (L/min) 10 Oxygen Delivery Method Mechanical Ventilator Weight: 199 lb Body Mass Index (BMI) 38.8 Finger Stick Blood Glucose 112 Intake and Output for Last 24 Hours 12/26/20 12/27/20 12/29/20 23:59 23:59 00:59 Intake Total 2924.68 / 2924.68 Balance 2924.68 / 2924.68 General: - - intubated, sedated, unresponsive HEENT: Atraumatic, PERRLA, EOMI, Normocephalic Oral: Dry Mucosa Neck: Supple, No JVD, Negative Carotid Bruits Lungs: - - diminished breath sounds bibasally, coarse crackles in lower lung brush bilaterally. intubated Cardiovascular: Regular rate, Regular Rhythm, Normal S1, Normal S2, No murmurs Abdomen: Bowel Sounds Present, Soft, Non Tender, Non-Distended, No Hepato- splenomegaly Extremities: No clubbing, No cyanosis, No edema, Capillary Refill Less than 3 Seconds Skin: No rashes, No breakdown Musculoskeletal: No Tenderness to Palpation of Joints or Extremities Lymphatic: No Cervical, Supraclavicular, or Inguinal Adenopathy Neurological: - - intubated, sedated Microbiology Past 72 Hours 12/28/20 07:15 Mucosa - Nose SARS-CoV-2 Antigen (Rapid) - Final Laboratory Results 12/28/20 06:44: WBC Not Reportable, Corrected WBC 20.3 H, RBC 3.44 L, Hgb 9.1 L, Hct 32.3 L, MCV 93.9, MCH 26.5 L, MCHC 28.2 L, RDW Std Deviation 67.6 H, RDW Coeff of Jeff 21.2 H, Plt Count 431, MPV 11.9, Neut % (Auto) Not Reportable, Absolute Neuts (auto) 15.0 H, Absolute Lymphs (auto) 3.05, Total Counted 100, Neutrophils % (Manual) 67, Band Neutrophils % 7 H, Lymphocytes % (Manual) 15 L, Monocytes % (Manual) 6, Eosinophils % (Manual) 1, Metamyelocytes % 3 H, Myelocytes % 1 H, Nucleated RBCs/100 WBC 7 H, Diff Path Review May foll, Platelet Estimate ADEQUATE, Hypochromasia RARE, Microcytosis RARE, Ovalocytes RARE, Stomatocytes RARE 12/28/20 06:44: PT 22.9 H, INR 2.1, APTT 49.5 H 12/28/20 06:44: Sodium 140, Potassium 5.4 H, Chloride 104, Carbon Dioxide 24.0, Anion Gap 12, BUN 35 H, Creatinine 1.58 H, Estim Creat Clear Calc 22.44, Est GFR (MDRD) Af Amer 41 L, Est GFR (MDRD) Non-Af 34 L, BUN/Creatinine Ratio 22.2 H, Glucose 46 L, Calcium 7.9 L, Total Bilirubin 1.40 H, AST 1328 H, ALT 650 H, Alkaline Phosphatase 214 H, Total Protein 6.7, Albumin 2.6 L, Globulin 4.1, Albumin/Globulin Ratio 0.6 L 12/28/20 06:44: Lactic Acid 7.3 H* 12/28/20 06:44: B-Natriuretic Peptide 691.2 H 12/28/20 06:44: Troponin I < 0.015 12/28/20 07:55: POC Glucose 127 H 12/28/20 08:25: Urine Color Yellow, Urine Clarity Sl. Cloudy, Urine pH 6.0, Ur Specific [place] 1.020, Urine Protein 500 H, Urine Glucose (UA) Normal, Urine Ketones Negative, Urine Occult Blood 150 H, Urine Nitrite Negative, Urine Bilirubin Negative, Urine Urobilinogen Normal, Ur Leukocyte Esterase 25 H, Urine RBC 0-5 SEEN, Urine WBC 5-10 SEEN, Ur Squamous Epith Cells 0-5 SEEN, Urine Bacteria 3+, Hyaline Casts 0-5 SEEN, Urine Mucus 0 SEEN 12/28/20 09:30: Specimen Type ART, Sample Site L Radial, pH 7.26 L, Bicarbonate Actual 22.3, Total CO2 24, Base Excess -5 L, O2 Saturation 92 L, O2 % 100, ABG pCO2 49.7 H, ABG pO2 73 L, Respiration Rate 14, O2 Delivery Device Adult Vent, Vent Mode AC, Tidal Volume 400, POC PEEP 5 12/28/20 12:20: Lactic Acid 3.1 H* Diagnostic Data Brain CT 12/28/20 06:54 IMPRESSION: Chronic involutional changes of the brain. Electronically Signed: Ramón Tomlinson MD at 9:51 EDT Tel , Service support , Chest X-Ray 12/28/20 07:27 IMPRESSION: 1. Interval placement of endotracheal tube with the tip approximately 3 cm above the magnus. 2. Suspect left hilar mass or lymphadenopathy correlation with CT the chest with contrast is recommended. 3. Cardiomegaly. Electronically Signed: Ramón Tomlinson MD at 8:48 EDT Tel , Service support , KUB X-Ray 12/28/20 07:28 IMPRESSION: Nasogastric tube with the tip likely in the body the stomach. Electronically Signed: Ramón Tomlinson MD at 8:47 EDT Tel , Service support , Current Medications Fentanyl Citrate 1,000 mcg/ (Sodium Chloride) 100 mls @ 5 mls/hr CONT INF .Q20H DIAMOND; Protocol Last Titration: 12/28/20 12:00 Dose: 75 mcg/hr, 7.5 mls/hr Documented by: Propofol (Diprivan) 1,000 mg in 100 mls @ 5.388 mls/hr CONT INF .Q12H DIAMOND; Protocol Last Titration: 12/28/20 12:01 Dose: 10 mcg/kg/min, 5.4 mls/hr Documented by: Sodium Chloride () 250 mls @ 15 mls/hr IV .[id number] PRN PRN Reason: Saline Flush Sodium Chloride () 250 mls @ 15 mls/hr IV .[id number] PRN PRN Reason: Additional IVPB Infusion Piperacillin Sod/Tazobactam (Sod 3.375 gm/ Sodium Chloride) 50 mls @ 12.5 mls/hr IV Q8 DIAMOND Vancomycin IV Pharmacy to Dose (1 ea/ Sodium Chloride) 500 mls @ 250 mls/hr IV X1 PRN; Protocol PRN Reason: Rx to Dose Vancomycin HCl 1,250 mg/ (Sodium Chloride) 275 mls @ 167 mls/hr IV Q24H DIAMOND Ondansetron HCl (Ondansetron 4 Mg/2 Ml Vial) 4 mg IV Q8H PRN PRN PRN Reason: NAUSEA/VOMITING Sodium Chloride (0.9% Saline Lock 10 Ml Syringe) 10 - 40 ml IV UD PRN PRN Reason: SALINE FLUSH Assessment/Plan All Active Problems (Last Reviewed 12/10/20 @ 11:[address] Brown Vargas MD) Other specified peripheral vascular diseases (Acute) Fracture of right great toe (Acute) Cellulitis of right leg (Acute) Debility (Acute) Acute kidney injury (Acute) 75 y/o admitted with a complaint of altered mental status and hypoxia #Acute hypoxic respiratory failure of unclear etiology * was saturating in the 70s on her baseline 4L of oxygen * intubated and sedated * CXR shwoed suspected left hilar mass or lymphadenopathy and cardiomegaly. No CT of the chest was done. * In light of her altered mental status when she was found, aspiration cannot be ruled out. Will get CT of the chest to evaluate his left hilar mass. * Titrate oxygen to maintain saturation above 90. Vent settings as per critical care. * Critical care on board. Breathing treatments with bronchodilators. * #Septic shock * Be due to aspiration pneumonia though never enzymes also elevated. This could be due to hypoxia but we cannot rule out gallbladder pathology. Will trend liver enzymes. If they worsen tomorrow, will do a CT of the abdomen to evaluate for gallbladder pathology. * UA also showed 3+ bacteria * Given IV vancomycin and Zosyn. will continue. Lactic acid was 7.3. Will trend. * blood Cultures and urine cultures obtained. #Lactic acidosis: lactic Acid was 7.3 on admission. Received fluids per sepsis protocol. Trend lactic acid. #Elevated liver enzymes: * Bilirubin is 1.4 and AST is 1328 with ALT of 650 and ALP of 214. * Liver enzymes are previously not elevated. * This may be due to hypoxia and septic shock. * Will trend. * If it remains elevated, will do an abdominal ultrasound to evaluate liver and gallbladder. #Hyperkalemia: Potassium was 5.4. Will give rectal Kayexalate. #History of A. fib: * Amiodarone on hold as patient is currently intubated and sedated. since she is allergic to heparin, will continue eliquis via NG tube. * Verified with pharmacy that it can be crushed and given through NG tube. #History of heart failure preserved ejection fraction: BNP is elevated but in light of elevated lactic acid and septic shock, will hold off on Lasix. #Hypertension: hold oral BP meds. IV hydralazine prn #GERD:IV PPI #2 diabetes mellitus: Hold insulin. Insulin sliding scale. Accu-Cheks every 4 hourly. #Hyperlipidemia: On statin #Right foot ulcer: Right toe does not look infected. Was on linezolid and alf. This is on hold. Currently on IV vancomycin and Zosyn. #COPD: Not in exacerbation. DVT prophylaxis: continue eliquis via NG tube Inpatient E&M: 31105 Init Hosp L3
--- NOTE | 2020-12-28 14:36 | PCM.RX.CS ---
Consult Pharmacy has been consulted to manage selected antiobiotic: Vancomycin Type of Consult: New start Suspected Infection: Sepsis Labs: Sodium 140 mmol/L (136-145) 12/28/20 06:44 Potassium 5.4 mmol/L (3.5-5.1) H 12/28/20 06:44 Chloride 104 mmol/L (98-107) 12/28/20 06:44 Carbon Dioxide 24.0 mmol/L (21.0-32.0) 12/28/20 06:44 Anion Gap 12 (5-15) 12/28/20 06:44 BUN 35 mg/dL (7-18) H 12/28/20 06:44 Creatinine 1.58 mg/dL (0.55-1.02) H 12/28/20 06:44 Est GFR (MDRD) Af Amer 41 mL/min (>60) L 12/28/20 06:44 Est GFR (MDRD) Non-Af 34 mL/min (>60) L 12/28/20 06:44 BUN/Creatinine Ratio 22.2 RATIO (10-20) H 12/28/20 06:44 Glucose 46 mg/dL (74-106) L 12/28/20 06:44 Microbiology: Microbiology 12/28/20 07:15 Mucosa - Nose SARS-CoV-2 Antigen (Rapid) - Final Weight used for dosin kg Estimated Creatinine Clearance: 31 ml/min Goal Trough: 15-20 mcg/mL Pharmacy Plan for Drug Dosing: NEW START IV VANCOMYCIN Consulting Physician: Mando Indication: Sepsis Goal Trough: 15-20 SrCr: 1.58 CrCl: 31.22 ml/min (calculated using an adjusted body weight of 63kg) Comments: a x1 dose of Vancomycin 2000mg was administered in the ER on 12/28 at 1001 Vancomcyin Dose: per dosing policy, recommend a dose of 1250mg q24h starting 12/29/20 at 1000 Pending Level: 12/30/20 at 0930 (before the 3rd dose since it is q24h dosing) Pharmacy Service will continue to monitor and adjust dosing as required. Follow-Up Labs: Trough Vancomycin - 12/30 at 0930
[2020-12-28 17:15] LABS: Bedside Glucose 127 mg/dL (70-110)
[2020-12-28 18:33] LABS: Lactic Acid 2.1 mmol/L (0.4-1.9)
--- NOTE | 2020-12-28 20:23 | NURSING ---
Belongings brought over from TCU. Pt's scooter, glasses, wallet, and clothing here. Unable to find upper dentures. 2 staff members looked thru all pt. belongings for dentures and unable to find. Call made to TCU about dentures. They will look in the room pt. was in.
[2020-12-28] MEDS: 0.9% Saline Lock 10 ML Syringe IV (21:21)
[2020-12-28 22:02] LABS: Reflex Lactate? Y
[2020-12-28] MEDS: Propofol 10MG/Ml 1,000 MG/100 ML Bottle 8.1 MG CONT INF (22:10)
[2020-12-28] MEDS: Chlorhexidine 15 ML PO (22:18)
[2020-12-29] VITALS (37 sets, daily range): BP systolic 113–165; BP diastolic 41–98; PULSE 49–67; RESP 14–23; TEMP 36.3–37.2; O2SAT 85–97
[2020-12-29 00:11] LABS: Bedside Glucose 165 mg/dL (70-110)
[2020-12-29 04:19] LABS: Absolute Lymphocyte Count 1.27 X10^3/uL (0.83-4.51); Absolute Neutrophil Count 25.4 X10^3/uL (2.0-7.7); Basophil# 0.08 X10^3/uL; Basophil% 0.3 % (0-1); Differential Indicated SCAN CRITERIA MET; Eosinophil# 0.02 X10^3/uL; Eosinophils% 0.1 % (0-5); Hematocrit 31.6 % (37-47); Hemoglobin 8.8 g/dL (12.0-15.0); Lymphocyte # 1.27 X10^3/ul (4.0); Lymphocyte % 4.4 % (19-41); Mean Corp Hgb Conc 27.8 g/dL (32-36); Mean Corpuscular Hgb 26.4 pg (27.0-32.0); Mean Corpuscular Volume 94.9 fL (81-99); Mean Platelet Vol. 12.1 fl (6.2-12.0); Monocyte# 1.36 X10^3/uL; Monocyte% 4.7 % (0-10); NRBC Flagged by Analyzer 0.5 % (0-5); Neutrophil # 25.38 X10^3/uL (2.7-7.7); Neutrophil % 88.3 % (47-70); POSITIVE DIFFERENTIAL YES; POSITIVE MORPHOLOGY YES; Platelet Count 312 K/mm3 (150-450); RBC Distribution Width CV 21.2 % (11.6-14.6); Red Blood Count 3.33 M/mm3 (4.2-5.4); White Blood Count 28.7 K/mm3 (4.4-11.0)
[2020-12-29 04:35] LABS: Anion Gap 7 (5-15); BUN 49 mg/dL (7-18); BUN/Creat Ratio 27.2 RATIO (10-20); Calcium,Total 7.6 mg/dL (8.5-10.1); Chloride 108 mmol/L (98-107); EST Glomerular Filtration Rate 29 mL/min (>60); Est Glom Filt Rate - Afr Amer 35 mL/min (>60); Glucose 178 mg/dL (74-106); Potassium 4.9 mmol/L (3.5-5.1); Sodium Level 139 mmol/L (136-145)
[2020-12-29 04:45] LABS: Lactic Acid 2.3 mmol/L (0.4-1.9)
[2020-12-29 05:46] LABS: Bedside Glucose 192 mg/dL (70-110)
[2020-12-29] MEDS: Insulin Lispro 100 UNIT/ML INSULN.PEN SC ×4 (06:27→22:30)
--- NOTE | 2020-12-29 06:50 | PCM.PN.INT ---
Subjective: Patient did well overnight. No acute issues were reported. Patient did have some hypertension, but did not require additional fluids. Patient had some marginal urine output intermittently. Patient currently is on a spontaneous breathing trial and awaiting ABG. Patient denies pain and states she is only mildly short of breath on the ventilator. General: Alert, Cooperative, No apparent distress, - - Obese. Good synchrony. HEENT: Atraumatic, PERRLA, EOMI, Normocephalic, - - No scleral icterus or injection noted Oral: Moist Mucosa, No Gingival or Mucosal Lesions/ Ulcerations, - - Crowded posterior pharynx Neck: Supple, No JVD, No Nodes, Trachea Midline Lungs: No rhonchi, No wheeze, No rales, Diminished, - - Symmetric expansion. No dullness to percussion. Cardiovascular: Regular rate, Regular Rhythm, Normal S1, Normal S2, Murmur, No rub noted, No Gallop Abdomen: Bowel Sounds Present, Soft, Non Tender, Non-Distended, Obese Extremities: No cyanosis, Edema Skin: - - No change from previous Musculoskeletal: No Tenderness to Palpation of Joints or Extremities Lymphatic: No Cervical, Supraclavicular, or Inguinal Adenopathy Neurological: Cranial nerves II-XII grossly intact, Neuro grossly intact, Motor Exam 5/5 strength throughout Psych/Mental Status: Normal Affect, Appropriate Vital Signs Temp Pulse Resp BP Pulse Ox 36.6 C 61 15 165/63 H 94 12/29/20 06:00 12/29/20 06:00 12/29/20 06:00 12/29/20 06:00 12/29/20 06:00 Oxygen Flow Rate (L/min) 10 Oxygen Delivery Method Mechanical Ventilator Weight: 90.2 kg Body Mass Index (BMI) 38.8 Finger Stick Blood Glucose 112 Intake and Output for Last 24 Hours 12/27/20 12/28/20 12/29/20 22:59 23:59 23:59 Intake Total 125.72 / 125.72 Output Total 125 / 125 Balance 0.72 / 0.72 Labs (Last 48 Hours) 12/28/20 12/28/20 12/28/20 06:44 06:44 06:44 WBC Not Reportable Corrected WBC 20.3 H RBC 3.44 L Hgb 9.1 L Hct 32.3 L MCV 93.9 MCH 26.5 L MCHC 28.2 L RDW Std Deviation 67.6 H RDW Coeff of Jeff 21.2 H Plt Count 431 MPV 11.9 Immature Gran % (Auto) Neut % (Auto) Not Reportable Lymph % (Auto) [place] % (Auto) Eos % (Auto) Baso % (Auto) Absolute Neuts (auto) 15.0 H Absolute Lymphs (auto) 3.05 Total Counted 100 Neutrophils % (Manual) 67 Band Neutrophils % 7 H Lymphocytes % (Manual) 15 L Monocytes % (Manual) 6 Eosinophils % (Manual) 1 Metamyelocytes % 3 H Myelocytes % 1 H Nucleated RBC % Nucleated RBCs/100 WBC 7 H Diff Path Review May foll Platelet Estimate ADEQUATE Hypochromasia RARE Microcytosis RARE Ovalocytes RARE Stomatocytes RARE PT 22.9 H INR 2.1 APTT 49.5 H Specimen Type Sample Site pH Bicarbonate Actual Total CO2 Base Excess O2 Saturation O2 % ABG pCO2 ABG pO2 Respiration Rate O2 Delivery Device Vent Mode Tidal Volume POC PEEP Sodium 140 Potassium 5.4 H Chloride 104 Carbon Dioxide 24.0 Anion Gap 12 BUN 35 H Creatinine 1.58 H Estim Creat Clear Calc 22.44 Est GFR (MDRD) Af Amer 41 L Est GFR (MDRD) Non-Af 34 L BUN/Creatinine Ratio 22.2 H Glucose 46 L Lactic Acid Calcium 7.9 L Total Bilirubin 1.40 H AST 1328 H ALT 650 H Alkaline Phosphatase 214 H Troponin I B-Natriuretic Peptide Total Protein 6.7 Albumin 2.6 L Globulin 4.1 Albumin/Globulin Ratio 0.6 L Urine Color Urine Clarity Urine pH Ur Specific [place] Urine Protein Urine Glucose (UA) Urine Ketones Urine Occult Blood Urine Nitrite Urine Bilirubin Urine Urobilinogen Ur Leukocyte Esterase Urine RBC Urine WBC Ur Squamous Epith Cells Urine Bacteria Hyaline Casts Urine Mucus POC Glucose 12/28/20 12/28/20 12/28/20 06:44 06:44 06:44 WBC Corrected WBC RBC Hgb Hct MCV MCH MCHC RDW Std Deviation RDW Coeff of Jeff Plt Count MPV Immature Gran % (Auto) Neut % (Auto) Lymph % (Auto) [place] % (Auto) Eos % (Auto) Baso % (Auto) Absolute Neuts (auto) Absolute Lymphs (auto) Total Counted Neutrophils % (Manual) Band Neutrophils % Lymphocytes % (Manual) Monocytes % (Manual) Eosinophils % (Manual) Metamyelocytes % Myelocytes % Nucleated RBC % Nucleated RBCs/100 WBC Diff Path Review Platelet Estimate Hypochromasia Microcytosis Ovalocytes Stomatocytes PT INR APTT Specimen Type Sample Site pH Bicarbonate Actual Total CO2 Base Excess O2 Saturation O2 % ABG pCO2 ABG pO2 Respiration Rate O2 Delivery Device Vent Mode Tidal Volume POC PEEP Sodium Potassium Chloride Carbon Dioxide Anion Gap BUN Creatinine Estim Creat Clear Calc Est GFR (MDRD) Af Amer Est GFR (MDRD) Non-Af BUN/Creatinine Ratio Glucose Lactic Acid 7.3 H* Calcium Total Bilirubin AST ALT Alkaline Phosphatase Troponin I < 0.015 B-Natriuretic Peptide 691.2 H Total Protein Albumin Globulin Albumin/Globulin Ratio Urine Color Urine Clarity Urine pH Ur Specific [place] Urine Protein Urine Glucose (UA) Urine Ketones Urine Occult Blood Urine Nitrite Urine Bilirubin Urine Urobilinogen Ur Leukocyte Esterase Urine RBC Urine WBC Ur Squamous Epith Cells Urine Bacteria Hyaline Casts Urine Mucus POC Glucose 12/28/20 12/28/20 12/28/20 07:55 08:25 09:30 WBC Corrected WBC RBC Hgb Hct MCV MCH MCHC RDW Std Deviation RDW Coeff of Jeff Plt Count MPV Immature Gran % (Auto) Neut % (Auto) Lymph % (Auto) [place] % (Auto) Eos % (Auto) Baso % (Auto) Absolute Neuts (auto) Absolute Lymphs (auto) Total Counted Neutrophils % (Manual) Band Neutrophils % Lymphocytes % (Manual) Monocytes % (Manual) Eosinophils % (Manual) Metamyelocytes % Myelocytes % Nucleated RBC % Nucleated RBCs/100 WBC Diff Path Review Platelet Estimate Hypochromasia Microcytosis Ovalocytes Stomatocytes PT INR APTT Specimen Type ART Sample Site L Radial pH 7.26 L Bicarbonate Actual 22.3 Total CO2 24 Base Excess -5 L O2 Saturation 92 L O2 % 100 ABG pCO2 49.7 H ABG pO2 73 L Respiration Rate 14 O2 Delivery Device Adult Vent Vent Mode AC Tidal Volume 400 POC PEEP 5 Sodium Potassium Chloride Carbon Dioxide Anion Gap BUN Creatinine Estim Creat Clear Calc Est GFR (MDRD) Af Amer Est GFR (MDRD) Non-Af BUN/Creatinine Ratio Glucose Lactic Acid Calcium Total Bilirubin AST ALT Alkaline Phosphatase Troponin I B-Natriuretic Peptide Total Protein Albumin Globulin Albumin/Globulin Ratio Urine Color Yellow Urine Clarity Sl. Cloudy Urine pH 6.0 Ur Specific [place] 1.020 Urine Protein 500 H Urine Glucose (UA) Normal Urine Ketones Negative Urine Occult Blood 150 H Urine Nitrite Negative Urine Bilirubin Negative Urine Urobilinogen Normal Ur Leukocyte Esterase 25 H Urine RBC 0-5 SEEN Urine WBC 5-10 SEEN Ur Squamous Epith Cells 0-5 SEEN Urine Bacteria 3+ Hyaline Casts 0-5 SEEN Urine Mucus 0 SEEN POC Glucose 127 H 12/28/20 12/28/20 12/28/20 12:20 17:09 17:59 WBC Corrected WBC RBC Hgb Hct MCV MCH MCHC RDW Std Deviation RDW Coeff of Jeff Plt Count MPV Immature Gran % (Auto) Neut % (Auto) Lymph % (Auto) [place] % (Auto) Eos % (Auto) Baso % (Auto) Absolute Neuts (auto) Absolute Lymphs (auto) Total Counted Neutrophils % (Manual) Band Neutrophils % Lymphocytes % (Manual) Monocytes % (Manual) Eosinophils % (Manual) Metamyelocytes % Myelocytes % Nucleated RBC % Nucleated RBCs/100 WBC Diff Path Review Platelet Estimate Hypochromasia Microcytosis Ovalocytes Stomatocytes PT INR APTT Specimen Type Sample Site pH Bicarbonate Actual Total CO2 Base Excess O2 Saturation O2 % ABG pCO2 ABG pO2 Respiration Rate O2 Delivery Device Vent Mode Tidal Volume POC PEEP Sodium Potassium Chloride Carbon Dioxide Anion Gap BUN Creatinine Estim Creat Clear Calc Est GFR (MDRD) Af Amer Est GFR (MDRD) Non-Af BUN/Creatinine Ratio Glucose Lactic Acid 3.1 H* 2.1 H* Calcium Total Bilirubin AST ALT Alkaline Phosphatase Troponin I B-Natriuretic Peptide Total Protein Albumin Globulin Albumin/Globulin Ratio Urine Color Urine Clarity Urine pH Ur Specific [place] Urine Protein Urine Glucose (UA) Urine Ketones Urine Occult Blood Urine Nitrite Urine Bilirubin Urine Urobilinogen Ur Leukocyte Esterase Urine RBC Urine WBC Ur Squamous Epith Cells Urine Bacteria Hyaline Casts Urine Mucus POC Glucose 127 H 12/29/20 12/29/20 12/29/20 00:03 04:00 04:00 WBC 28.7 H Corrected WBC RBC 3.33 L Hgb 8.8 L Hct 31.6 L MCV 94.9 MCH 26.4 L MCHC 27.8 L RDW Std Deviation 70.0 H RDW Coeff of Jeff 21.2 H Plt Count 312 MPV 12.1 H Immature Gran % (Auto) 2.200 H Neut % (Auto) 88.3 H Lymph % (Auto) 4.4 L [place] % (Auto) 4.7 Eos % (Auto) 0.1 Baso % (Auto) 0.3 Absolute Neuts (auto) 25.4 H Absolute Lymphs (auto) 1.27 Total Counted Neutrophils % (Manual) Band Neutrophils % Lymphocytes % (Manual) Monocytes % (Manual) Eosinophils % (Manual) Metamyelocytes % Myelocytes % Nucleated RBC % 0.5 Nucleated RBCs/100 WBC Diff Path Review Platelet Estimate Hypochromasia Microcytosis Ovalocytes Stomatocytes PT INR APTT Specimen Type Sample Site pH Bicarbonate Actual Total CO2 Base Excess O2 Saturation O2 % ABG pCO2 ABG pO2 Respiration Rate O2 Delivery Device Vent Mode Tidal Volume POC PEEP Sodium 139 Potassium 4.9 Chloride 108 H Carbon Dioxide 24.0 Anion Gap 7 BUN 49 H Creatinine 1.80 H Estim Creat Clear Calc 19.70 Est GFR (MDRD) Af Amer 35 L Est GFR (MDRD) Non-Af 29 L BUN/Creatinine Ratio 27.2 H Glucose 178 H Lactic Acid Calcium 7.6 L Total Bilirubin AST ALT Alkaline Phosphatase Troponin I B-Natriuretic Peptide Total Protein Albumin Globulin Albumin/Globulin Ratio Urine Color Urine Clarity Urine pH Ur Specific [place] Urine Protein Urine Glucose (UA) Urine Ketones Urine Occult Blood Urine Nitrite Urine Bilirubin Urine Urobilinogen Ur Leukocyte Esterase Urine RBC Urine WBC Ur Squamous Epith Cells Urine Bacteria Hyaline Casts Urine Mucus POC Glucose 165 H 12/29/20 12/29/20 04:00 05:37 WBC Corrected WBC RBC Hgb Hct MCV MCH MCHC RDW Std Deviation RDW Coeff of Jeff Plt Count MPV Immature Gran % (Auto) Neut % (Auto) Lymph % (Auto) [place] % (Auto) Eos % (Auto) Baso % (Auto) Absolute Neuts (auto) Absolute Lymphs (auto) Total Counted Neutrophils % (Manual) Band Neutrophils % Lymphocytes % (Manual) Monocytes % (Manual) Eosinophils % (Manual) Metamyelocytes % Myelocytes % Nucleated RBC % Nucleated RBCs/100 WBC Diff Path Review Platelet Estimate Hypochromasia Microcytosis Ovalocytes Stomatocytes PT INR APTT Specimen Type Sample Site pH Bicarbonate Actual Total CO2 Base Excess O2 Saturation O2 % ABG pCO2 ABG pO2 Respiration Rate O2 Delivery Device Vent Mode Tidal Volume POC PEEP Sodium Potassium Chloride Carbon Dioxide Anion Gap BUN Creatinine Estim Creat Clear Calc Est GFR (MDRD) Af Amer Est GFR (MDRD) Non-Af BUN/Creatinine Ratio Glucose Lactic Acid 2.3 H* Calcium Total Bilirubin AST ALT Alkaline Phosphatase Troponin I B-Natriuretic Peptide Total Protein Albumin Globulin Albumin/Globulin Ratio Urine Color Urine Clarity Urine pH Ur Specific [place] Urine Protein Urine Glucose (UA) Urine Ketones Urine Occult Blood Urine Nitrite Urine Bilirubin Urine Urobilinogen Ur Leukocyte Esterase Urine RBC Urine WBC Ur Squamous Epith Cells Urine Bacteria Hyaline Casts Urine Mucus POC Glucose 192 H Microbiology 12/28/20 07:15 Blood Culture (Wb) - Anticubital Right Blood Culture - Preliminary 12/28/20 07:15 Mucosa - Nose SARS-CoV-2 Antigen (Rapid) - Final Clinical Impression(s) from Imaging Studies Brain CT 12/28/20 06:54 IMPRESSION: Chronic involutional changes of the brain. Electronically Signed: Ramón Tomlinson MD at 9:51 EDT Tel , Service support , Chest X-Ray 12/28/20 07:27 IMPRESSION: 1. Interval placement of endotracheal tube with the tip approximately 3 cm above the magnus. 2. Suspect left hilar mass or lymphadenopathy correlation with CT the chest with contrast is recommended. 3. Cardiomegaly. Electronically Signed: Ramón Tomlinson MD at 8:48 EDT Tel , Service support , KUB X-Ray 12/28/20 07:28 IMPRESSION: Nasogastric tube with the tip likely in the body the stomach. Electronically Signed: Ramón Tomlinson MD at 8:47 EDT Tel , Service support , Medical Necessity - Tobacco Use Smoking Status: Unknown if ever smoked Assessment/Plan All Active Problems (Last Reviewed 12/10/20 @ 11:[address] Brown Vargas MD) Other specified peripheral vascular diseases (Acute) Fracture of right great toe (Acute) Cellulitis of right leg (Acute) Debility (Acute) Acute kidney injury (Acute) RECOMMENDATIONS: 1. Continue empiric antibiotics pending sensitivities 2. Okay to reinitiate Eliquis from my perspective 3. Potential extubation pending ABG results 4. Wean oxygen as tolerated. Vent settings as ordered in ER 5. Reinitiate sliding scale insulin. Possible addition of basal insulin if tolerates p.o. diet 6. Reinitiate baseline antihypertensive medications IMPRESSIONS: 1. Acute on chronic hypoxic respiratory failure Exact etiology is unclear at this time. Patient is recovered rapidly after intubation. Clinical suspicion for decompensation secondary to gram-negative septic shock and failure to compensate from a respiratory standpoint. Patient has responded well to Zosyn therapy. Await results of ABG. Potential extubation later this morning. 2. Possible septic shock Patient has been on antibiotics secondary to a great toe/right leg cellulitis. Patient did have a recent MRI that was not consistent with osteomyelitis. Patient can likely be taken off of vancomycin and reinitiated on Zyvox. We will continue with Zosyn for now. Clinical suspicion for urinary source of septic shock. Management is complicated by peripheral vascular disease. 3. Chronic A. fib/chronic diastolic CHF/aortic stenosis Patient currently on amiodarone and metoprolol at baseline. Likely okay to reinitiate antihypertensives and rate control at this time. Patient may benefit from diuretic therapy in the near future. 4. CKD stage III Patient was being followed by nephrology in TCU. Patient has been getting diuretics intermittently as necessary. Hyperkalemia is improved. 5. Hypoglycemia/diabetes mellitus type 2 with peripheral vascular disease and diabetic nephropathy/neuropathy Hold basal insulin for now. Treat with sliding scale insulin only. Unclear if an element of hypoglycemia related to septicemia. Possible initiation of basal insulin if they wish and able to tolerate p.o. 6. Debility/obesity/multiple allergies/poor history Complicates care, management, recovery and prognosis. Unable to discuss CODE STATUS with the patient at this time, so patient will be a default full code for now. Okay to initiate tube feeds from my perspective. TIME: 37 minutes critical care time spent addressing patient's acute on chronic respiratory failure, possible septic shock, CHF, CKD stage III, hyperglycemia, review of all data and collaboration with care team (5:30 AM to 6:30 AM) [id number]: [id number] Critical care first hour
[2020-12-29 07:11] LABS: Base Excess -2 mmol/L (-2 to +2); Bicarbonate 23.7 mmol/L (22-26); Blood Gas Specimen Type ART; FI02 35; Mode CPAP/PS; PEEP 5; PO2 55 mmHG (75-100); PS 5; SITE L Radial; SO2 87 % (95-99); Total Carbon Dioxide 25 mmol/L; pCO2 42.7 mmHg (35-45); pH 7.35 (7.35-7.45)
--- NOTE | 2020-12-29 07:27 | NURSING ---
pt extubated by resp therapy @ 720, pt place on 4 l NC, tolerated well.
[2020-12-29 08:10] LABS: Reflex Lactate? Y
--- NOTE | 2020-12-29 09:41 | CASEMGMT ---
RAFITA spoke w/Jyothi in TCU, they will take pt back and will start precert when pt is closer to being ready for discharge. SW participated in ICU rounds this morning, daughter Tsering participated via telephone. Plan will be for pt to return to TCU, will need a new precert. Pt and daughter in agreement, though daughter did mention plan after discharge, if pt will be able to return home or not. SW called daughter after rounds for clarification. She would still like pt to return to TCU, was informed in TCU pt cannot return home alone, so is thinking will bring pt to her home, with her and her fiance. She states she has a room set up for her but it's small, and eventually they would move. She states she lives 2.5 hours away and the pt's doctors are here, is thinking about looking into doctors closer that take her insurance. She is not interested in placing pt in SNF due to both COVID; she also states has worked in a [place] [facility] facility and they are not attentive. 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 Plan will continue to be for TCU at discharge from hospital, and from hospital it is anticipated pt will go home to daughter's home. SRINIVASAN Campos
[2020-12-29 10:11] LABS: Bedside Glucose 184 mg/dL (70-110)
[2020-12-29] MEDS: Metoprolol Tartrate 25 MG Tablet PO ×2 (10:48→22:28)
[2020-12-29] MEDS: APIXABAN 2.5 MG TABLET PO ×2 (10:48→22:27)
[2020-12-29] MEDS: Levothyroxine 25 MCG TABLET PO (10:49)
[2020-12-29] MEDS: Pantoprazole Sodium 40 MG Tablet PO (10:49)
[2020-12-29] MEDS: Cyanocobalamin 500 MCG Tablet 1000 MCG PO (10:49)
[2020-12-29] MEDS: Paroxetine 20 MG Tablet 40 MG PO (10:49)
[2020-12-29] MEDS: Lisinopril 10 MG Tablet PO (10:49)
[2020-12-29] MEDS: 0.9% Saline Lock 10 ML Syringe IV ×2 (10:49→17:10)
[2020-12-29] MEDS: Fluticasone 0.05% 1 SPRAY NASAL.SRY 2 SPRAY NASAL (10:50)
[2020-12-29 12:20] LABS: Pathologist Review Reviewed
--- NOTE | 2020-12-29 13:12 | PN_ITS ---
Patient Problems: Active and Suspected Problems (Last Reviewed 12/10/20 @ 11:[address] Brown Vargas MD) Other specified peripheral vascular diseases (Acute) Fracture of right great toe (Acute) Cellulitis of right leg (Acute) Debility (Acute) Subjective: extubated today. feels well. Vitals/I&O's: Vital Signs Temp Pulse Resp BP Pulse Ox 37.1 C 57 L 17 155/55 H 92 12/29/20 13:00 12/29/20 13:00 12/29/20 13:00 12/29/20 13:00 12/29/20 13:00 Oxygen Flow Rate (L/min) 5 Oxygen Delivery Method Nasal Cannula Weight: 90.2 kg Body Mass Index (BMI) 38.8 Finger Stick Blood Glucose 112 Intake and Output for Last 24 Hours 12/27/20 12/28/20 12/29/20 22:59 23:59 23:59 Intake Total 415.72 / 415.72 Output Total 215 / 215 Balance 200.72 / 200.72 General: Alert, No apparent distress HEENT: Atraumatic, Normocephalic Oral: Moist Mucosa, No Gingival or Mucosal Lesions/ Ulcerations Neck: No Nodes, Thyroid Normal Size and Texture Lungs: Diminished, - - coarse breath sounds bilaterally. Cardiovascular: Regular rate, Regular Rhythm, Normal S1, Normal S2, No murmurs Abdomen: Bowel Sounds Present, Soft, Non Tender, Non-Distended, No Hepato- splenomegaly Extremities: No edema, No Calf Tenderness Microbiology Past 72 Hours 12/28/20 11:30 Sputum, Induced/Lukens Gram Stain - Final 12/28/20 11:30 Sputum, Induced/Lukens Respiratory Culture - Preliminary Gram negative julieta 12/28/20 08:25 Urine Catheter - Catheter Urine Culture - Preliminary GNR lactose molder apprentice 12/28/20 07:15 Blood Culture (Wb) - Anticubital Right Blood Culture - Preliminary 12/28/20 07:15 Mucosa - Nose SARS-CoV-2 Antigen (Rapid) - Final Laboratory Results 12/28/20 06:44: Diff Path Review Reviewed 12/28/20 17:09: POC Glucose 127 H 12/28/20 17:59: Lactic Acid 2.1 H* 12/29/20 00:03: POC Glucose 165 H 12/29/20 04:00: WBC 28.7 H, RBC 3.33 L, Hgb 8.8 L, Hct 31.6 L, MCV 94.9, MCH 26.4 L, MCHC 27.8 L, RDW Std Deviation 70.0 H, RDW Coeff of Jeff 21.2 H, Plt Count 312, MPV 12.1 H, Immature Gran % (Auto) 2.200 H, Neut % (Auto) 88.3 H, Lymph % (Auto) 4.4 L, [place] % (Auto) 4.7, Eos % (Auto) 0.1, Baso % (Auto) 0.3, Absolute Neuts (auto) 25.4 H, Absolute Lymphs (auto) 1.27, Nucleated RBC % 0.5 12/29/20 04:00: Sodium 139, Potassium 4.9, Chloride 108 H, Carbon Dioxide 24.0, Anion Gap 7, BUN 49 H, Creatinine 1.80 H, Estim Creat Clear Calc 19.70, Est GFR (MDRD) Af Amer 35 L, Est GFR (MDRD) Non-Af 29 L, BUN/Creatinine Ratio 27.2 H, Glucose 178 H, Calcium 7.6 L 12/29/20 04:00: Lactic Acid 2.3 H* 12/29/20 05:37: POC Glucose 192 H 12/29/20 07:04: Specimen Type ART, Sample Site L Radial, pH 7.35, Bicarbonate Actual 23.7, Total CO2 25, Base Excess -2, O2 Saturation 87 L, O2 % 35, ABG pCO2 42.7, ABG pO2 55 L, Vent Mode CPAP/PS, POC PEEP 5, POC Pressure Suppt 5 12/29/20 10:00: POC Glucose 184 H Current Medications Albuterol Sulfate (Albuterol 2.5 Mg/3 Ml Vial.Neb.) 2.5 mg INHALATION Q2H PRN PRN PRN Reason: SOB &/OR WHEEZING Albuterol/Ipratropium (Ipratropium/Albuterol Sulfate 3 Ml Ampul.Neb) 3 ml INHALATION Q6H.RT DIAMOND Apixaban (Apixaban 2.5 Mg Tablet) 2.5 mg PO BID DIAMOND Last Admin: 12/29/20 10:48 Dose: 2.5 mg Documented by: Aspirin (Aspirin E.C. 81 Mg Tablet) 81 mg PO DAILY@0800 [facility] Atorvastatin Calcium (Atorvastatin Calcium 80 Mg Tablet) 80 mg PO QHS [facility] Cyanocobalamin (Cyanocobalamin 500 Mcg Tablet) 1,000 mcg PO DAILY [facility] Last Admin: 12/29/20 10:49 Dose: 1,000 mcg Documented by: Fluticasone Propionate (Fluticasone 0.05% 1 [place] Nasal.Sry) 2 spray NASAL DAILY [facility] Last Admin: 12/29/20 10:50 Dose: 2 spray Documented by: Sodium Chloride () 250 mls @ 15 mls/hr IV .[id number] PRN PRN Reason: Saline Flush Last Admin: 12/29/20 08:16 Dose: 15 mls/hr Documented by: Sodium Chloride () 250 mls @ 15 mls/hr IV .[id number] PRN PRN Reason: Additional IVPB Infusion Piperacillin Sod/Tazobactam (Sod 3.375 gm/ Sodium Chloride) 50 mls @ 12.5 mls /hr IV Q8 [facility] Last Infusion: 12/29/20 09:40 Dose: Infused Documented by: Insulin Human Lispro (Insulin Lispro 100 Unit/Ml Insuln.Pen) 0 unit SC [facility]; Protocol Last Admin: 12/29/20 10:17 Dose: 3 u Documented by: Levothyroxine Sodium (Levothyroxine 25 Mcg Tablet) 25 mcg PO DAILY@0600 [facility] Last Admin: 12/29/20 10:49 Dose: 25 mcg Documented by: Lisinopril (Lisinopril 10 Mg Tablet) 10 mg PO DAILY [facility] Last Admin: 12/29/20 10:49 Dose: 10 mg Documented by: Methylprednisolone (Methylprednisolone 40 Mg/Ml Vial) 40 mg IV DAILY [facility] Last Admin: 12/29/20 10:49 Dose: 40 mg Documented by: Metoprolol Tartrate (Metoprolol Tartrate 25 Mg Tablet) 25 mg PO BID [facility] Last Admin: 12/29/20 10:48 Dose: 25 mg Documented by: Ondansetron HCl (Ondansetron 4 Mg/2 Ml Vial) 4 mg IV Q8H PRN PRN PRN Reason: NAUSEA/VOMITING Oxycodone HCl (Oxycodone 5 Mg Tablet) 5 mg PO TID PRN PRN PRN Reason: PAIN 1-10 Pantoprazole Sodium (Pantoprazole Sodium 40 Mg Tablet) 40 mg PO DAILY [facility] Last Admin: 12/29/20 10:49 Dose: 40 mg Documented by: Paroxetine HCl (Paroxetine 20 Mg Tablet) 40 mg PO DAILY [facility] Last Admin: 12/29/20 10:49 Dose: 40 mg Documented by: Sodium Chloride (0.9% Saline Lock 10 Ml Syringe) 10 - 40 ml IV UD PRN PRN Reason: SALINE FLUSH Last Admin: 12/29/20 10:49 Dose: 10 ml Documented by: STROKE Vital Signs/Narrative: Vital Signs Temp Pulse Resp BP BP Pulse Ox 12/29/20 13:00 37.1 C 57 L 17 155/55 H 92 12/29/20 12:00 36.9 C 64 22 H 165/76 H 92 12/29/20 11:27 61 12/29/20 11:00 37.1 C 61 19 H 147/53 H 86 12/29/20 10:48 61 12/29/20 10:30 85 12/29/20 10:00 37.1 C 66 20 H 144/49 H 90 Medical Necessity - Tobacco Use Smoking Status: Unknown if ever smoked Assessment/Plan All Active Problems (Last Reviewed 12/10/20 @ 11:[address] Brown Vargas MD) Other specified peripheral vascular diseases (Acute) Fracture of right great toe (Acute) Cellulitis of right leg (Acute) Debility (Acute) Acute kidney injury (Acute) 1. 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 septic shock on pip/tazo UA unremarkable, so doubt UTI likely 2/2 pneumonia 3. gram negative pneumonia pip/tazo follow up cultures. 4. transaminitis POA, unclear etiology follow up labs if still elevated, check US 5. hyperkalemia resolved 6. chronic conditions: afib, HFpEF, HTN, GERD: stable 7. DM2: fair control 8. VTE prophylaxis: anticoagulated Inpatient E&M: 13264 Subs Hosp L2
[2020-12-29] MEDS: Ipratropium/Albuterol Sulfate 3 ML AMPUL.NEB INHALATION ×2 (13:13→19:25)
[2020-12-29 14:18] LABS: AST(SGOT) 1990 U/L (15-37); Alanine Aminotransfer ALT/SGPT 1510 U/L (13-56); Albumin, Serum 2.2 g/dL (3.2-5.0); Alkaline Phosphatase 164 U/L (45-117); Bilirubin, Direct 0.61 mg/dL (0.00-0.30); Globulin 3.5 g/dL (2.2-4.2); Protein, Total 5.7 g/dL (6.4-8.2)
--- NOTE | 2020-12-29 14:36 | CASEMGMT ---
SUSI CM readmission note: Pt was admitted on 12/06/20-12/12/20 for R leg cellulitis. Pt was discharged to TCU. Pt returned on 12/28/20 for respiratory failure. Pt found to be hypoxic and lethargic, sent to ED and intubated d/t worsening resp status. Extubated the next day. Pt had altered mental status, possible aspiration. Elevated lactic acid of 3.1. Pt was septic, started on zosyn. Plan to return to TCU on dc. [facility] Palliative Care Screening completed, pt met criteria. agreeable to Palliative Care referral, order placed and information faxed to [facility]. TC to Niya at [facility] to confirm receipt of referral.
[2020-12-29 16:51] LABS: Bedside Glucose 246 mg/dL (70-110)
[2020-12-29] MEDS: Lactated Ringers 1,000 ML 200 ML IV (17:11)
[2020-12-29] MEDS: Atorvastatin Calcium 80 MG Tablet PO (22:27)
[2020-12-29 22:51] LABS: Bedside Glucose 237 mg/dL (70-110)
[2020-12-30] VITALS (21 sets, daily range): BP systolic 114–171; BP diastolic 56–86; PULSE 55–66; RESP 16–21; TEMP 36.4–37.3; O2SAT 92–95
[2020-12-30] MEDS: Ipratropium/Albuterol Sulfate 3 ML AMPUL.NEB INHALATION ×4 (00:10→19:28)
[2020-12-30 04:34] LABS: Absolute Lymphocyte Count 0.85 X10^3/uL (0.83-4.51); Absolute Neutrophil Count 28.4 X10^3/uL (2.0-7.7); Basophil# 0.06 X10^3/uL; Basophil% 0.2 % (0-1); Eosinophil# 0.03 X10^3/uL; Eosinophils% 0.1 % (0-5); Hematocrit 34.9 % (37-47); Hemoglobin 9.9 g/dL (12.0-15.0); Lymphocyte # 0.85 X10^3/ul (4.0); Lymphocyte % 2.7 % (19-41); Mean Corp Hgb Conc 28.4 g/dL (32-36); Mean Corpuscular Hgb 26.3 pg (27.0-32.0); Mean Corpuscular Volume 92.6 fL (81-99); Mean Platelet Vol. 12.2 fl (6.2-12.0); Monocyte# 1.56 X10^3/uL; Monocyte% 4.9 % (0-10); NRBC Flagged by Analyzer 1.4 % (0-5); Neutrophil # 28.35 X10^3/uL (2.7-7.7); Neutrophil % 89.1 % (47-70); POSITIVE COUNT YES; POSITIVE DIFFERENTIAL YES; POSITIVE MORPHOLOGY YES; Platelet Count 511 K/mm3 (150-450); RBC Distribution Width CV 21.4 % (11.6-14.6); RBC Distribution Width SD 68.9 fl (35.1-43.9); Red Blood Count 3.77 M/mm3 (4.2-5.4)
[2020-12-30 04:43] LABS: Differential Indicated SCAN CRITERIA MET; White Blood Count 31.8 K/mm3 (4.4-11.0)
[2020-12-30 04:58] LABS: ALB/GLOB Ratio 0.6 RATIO (0.9-2.4); AST(SGOT) 658 U/L (15-37); Alanine Aminotransfer ALT/SGPT 1252 U/L (13-56); Albumin, Serum 2.3 g/dL (3.2-5.0); Alkaline Phosphatase 154 U/L (45-117); Anion Gap 7 (5-15); BUN 64 mg/dL (7-18); BUN/Creat Ratio 25.5 RATIO (10-20); Chloride 105 mmol/L (98-107); Creatinine, Serum 2.51 mg/dL (0.55-1.02); EST Glomerular Filtration Rate 20 mL/min (>60); Est Glom Filt Rate - Afr Amer 24 mL/min (>60); Estimated Creatinine Clearance 14.12 ml/min; Glucose 233 mg/dL (74-106); Potassium 5.9 mmol/L (3.5-5.1); Protein, Total 6.3 g/dL (6.4-8.2); Sodium Level 137 mmol/L (136-145)
--- NOTE | 2020-12-30 05:12 | NURSING ---
multi nurses tried multi times to get perphial IV also tried to use US to get the IV with no sucess x2
[2020-12-30 05:41] LABS: Differential Comment SCANNED
[2020-12-30 05:42] LABS: Anisocytosis 1+; Macrocytosis RARE; Microcytosis RARE; Polychromasia RARE
[2020-12-30 05:43] LABS: Hypochromasia 1+
[2020-12-30] MEDS: Levothyroxine 25 MCG TABLET PO (05:59)
[2020-12-30] MEDS: amLODIPine 5 MG Tablet PO (06:43)
--- NOTE | 2020-12-30 07:02 | PN_ITS ---
Subjective: Patient did well from a hemodynamic standpoint overnight. However, patient did lose IV access. Labs were able to be drawn. Patient has had some decreased urine output noted. General: Alert, Oriented x3, Cooperative, - - Mild conversational dyspnea. HEENT: Atraumatic, PERRLA, EOMI, Normocephalic, - - No scleral icterus or injection noted Oral: Moist Mucosa, No Gingival or Mucosal Lesions/ Ulcerations Neck: Supple, No Nodes, Trachea Midline Lungs: No rhonchi, No rales, Diminished, Wheezes, - - Symmetric expansion. Cardiovascular: Regular rate, Regular Rhythm, Normal S1, Normal S2, No murmurs, No rub noted, No Gallop Abdomen: Bowel Sounds Present, Soft, Non Tender, Non-Distended, Obese Extremities: No clubbing, No cyanosis, Edema Skin: - - No change from previous Musculoskeletal: No Tenderness to Palpation of Joints or Extremities Lymphatic: No Cervical, Supraclavicular, or Inguinal Adenopathy Neurological: Cranial nerves II-XII grossly intact, Neuro grossly intact, Motor Exam 5/5 strength throughout Psych/Mental Status: Normal Affect, Appropriate Vital Signs Temp Pulse Resp BP Pulse Ox 37.3 C H 58 L 16 171/56 H 93 12/30/20 06:00 12/30/20 06:00 12/30/20 06:00 12/30/20 06:00 12/30/20 06:00 Oxygen Flow Rate (L/min) 5 Oxygen Delivery Method Nasal Cannula Weight: 89.9 kg Body Mass Index (BMI) 38.8 Finger Stick Blood Glucose 112 Intake and Output for Last 24 Hours 12/28/20 12/29/20 12/30/20 23:59 23:59 23:59 Intake Total 1979.22 / 9.22 440 / 440 Output Total 352 / 392 295 / 295 Balance 1627.22 / 1637.22 145 / 145 Labs (Last 48 Hours) 12/28/20 12/28/20 12/28/20 06:44 06:44 06:44 WBC Not Reportable Corrected WBC 20.3 H RBC 3.44 L Hgb 9.1 L Hct 32.3 L MCV 93.9 MCH 26.5 L MCHC 28.2 L RDW Std Deviation 67.6 H RDW Coeff of Jeff 21.2 H Plt Count 431 MPV 11.9 Immature Gran % (Auto) Neut % (Auto) Not Reportable Lymph % (Auto) Ocean % (Auto) Eos % (Auto) Baso % (Auto) Absolute Neuts (auto) 15.0 H Absolute Lymphs (auto) 3.05 Total Counted 100 Neutrophils % (Manual) 67 Band Neutrophils % 7 H Lymphocytes % (Manual) 15 L Monocytes % (Manual) 6 Eosinophils % (Manual) 1 Metamyelocytes % 3 H Myelocytes % 1 H Nucleated RBC % Nucleated RBCs/100 WBC 7 H Differential Comment Diff Path Review Reviewed Platelet Estimate ADEQUATE Polychromasia Hypochromasia RARE Anisocytosis Microcytosis RARE Macrocytosis Ovalocytes RARE Stomatocytes RARE PT 22.9 H INR 2.1 APTT 49.5 H Specimen Type Sample Site pH Bicarbonate Actual Total CO2 Base Excess O2 Saturation O2 % ABG pCO2 ABG pO2 Respiration Rate O2 Delivery Device Vent Mode Tidal Volume POC PEEP POC Pressure Suppt Sodium 140 Potassium 5.4 H Chloride 104 Carbon Dioxide 24.0 Anion Gap 12 BUN 35 H Creatinine 1.58 H Estim Creat Clear Calc 22.44 Est GFR (MDRD) Af Amer 41 L Est GFR (MDRD) Non-Af 34 L BUN/Creatinine Ratio 22.2 H Glucose 46 L Lactic Acid Calcium 7.9 L Total Bilirubin 1.40 H Direct Bilirubin AST 1328 H ALT 650 H Alkaline Phosphatase 214 H Troponin I B-Natriuretic Peptide Total Protein 6.7 Albumin 2.6 L Globulin 4.1 Albumin/Globulin Ratio 0.6 L Urine Color Urine Clarity Urine pH Ur Specific [place] Urine Protein Urine Glucose (UA) Urine Ketones Urine Occult Blood Urine Nitrite Urine Bilirubin Urine Urobilinogen Ur Leukocyte Esterase Urine RBC Urine WBC Ur Squamous Epith Cells Urine Bacteria Hyaline Casts Urine Mucus POC Glucose 12/28/20 12/28/20 12/28/20 06:44 06:44 06:44 WBC Corrected WBC RBC Hgb Hct MCV MCH MCHC RDW Std Deviation RDW Coeff of Jeff Plt Count MPV Immature Gran % (Auto) Neut % (Auto) Lymph % (Auto) Ocean % (Auto) Eos % (Auto) Baso % (Auto) Absolute Neuts (auto) Absolute Lymphs (auto) Total Counted Neutrophils % (Manual) Band Neutrophils % Lymphocytes % (Manual) Monocytes % (Manual) Eosinophils % (Manual) Metamyelocytes % Myelocytes % Nucleated RBC % Nucleated RBCs/100 WBC Differential Comment Diff Path Review Platelet Estimate Polychromasia Hypochromasia Anisocytosis Microcytosis Macrocytosis Ovalocytes Stomatocytes PT INR APTT Specimen Type Sample Site pH Bicarbonate Actual Total CO2 Base Excess O2 Saturation O2 % ABG pCO2 ABG pO2 Respiration Rate O2 Delivery Device Vent Mode Tidal Volume POC PEEP POC Pressure Suppt Sodium Potassium Chloride Carbon Dioxide Anion Gap BUN Creatinine Estim Creat Clear Calc Est GFR (MDRD) Af Amer Est GFR (MDRD) Non-Af BUN/Creatinine Ratio Glucose Lactic Acid 7.3 H* Calcium Total Bilirubin Direct Bilirubin AST ALT Alkaline Phosphatase Troponin I < 0.015 B-Natriuretic Peptide 691.2 H Total Protein Albumin Globulin Albumin/Globulin Ratio Urine Color Urine Clarity Urine pH Ur Specific [place] Urine Protein Urine Glucose (UA) Urine Ketones Urine Occult Blood Urine Nitrite Urine Bilirubin Urine Urobilinogen Ur Leukocyte Esterase Urine RBC Urine WBC Ur Squamous Epith Cells Urine Bacteria Hyaline Casts Urine Mucus POC Glucose 12/28/20 12/28/20 12/28/20 07:55 08:25 09:30 WBC Corrected WBC RBC Hgb Hct MCV MCH MCHC RDW Std Deviation RDW Coeff of Jeff Plt Count MPV Immature Gran % (Auto) Neut % (Auto) Lymph % (Auto) Ocean % (Auto) Eos % (Auto) Baso % (Auto) Absolute Neuts (auto) Absolute Lymphs (auto) Total Counted Neutrophils % (Manual) Band Neutrophils % Lymphocytes % (Manual) Monocytes % (Manual) Eosinophils % (Manual) Metamyelocytes % Myelocytes % Nucleated RBC % Nucleated RBCs/100 WBC Differential Comment Diff Path Review Platelet Estimate Polychromasia Hypochromasia Anisocytosis Microcytosis Macrocytosis Ovalocytes Stomatocytes PT INR APTT Specimen Type ART Sample Site L Radial pH 7.26 L Bicarbonate Actual 22.3 Total CO2 24 Base Excess -5 L O2 Saturation 92 L O2 % 100 ABG pCO2 49.7 H ABG pO2 73 L Respiration Rate 14 O2 Delivery Device Adult Vent Vent Mode AC Tidal Volume 400 POC PEEP 5 POC Pressure Suppt Sodium Potassium Chloride Carbon Dioxide Anion Gap BUN Creatinine Estim Creat Clear Calc Est GFR (MDRD) Af Amer Est GFR (MDRD) Non-Af BUN/Creatinine Ratio Glucose Lactic Acid Calcium Total Bilirubin Direct Bilirubin AST ALT Alkaline Phosphatase Troponin I B-Natriuretic Peptide Total Protein Albumin Globulin Albumin/Globulin Ratio Urine Color Yellow Urine Clarity Sl. Cloudy Urine pH 6.0 Ur Specific [place] 1.020 Urine Protein 500 H Urine Glucose (UA) Normal Urine Ketones Negative Urine Occult Blood 150 H Urine Nitrite Negative Urine Bilirubin Negative Urine Urobilinogen Normal Ur Leukocyte Esterase 25 H Urine RBC 0-5 SEEN Urine WBC 5-10 SEEN Ur Squamous Epith Cells 0-5 SEEN Urine Bacteria 3+ Hyaline Casts 0-5 SEEN Urine Mucus 0 SEEN POC Glucose 127 H 12/28/20 12/28/20 12/28/20 12:20 17:09 17:59 WBC Corrected WBC RBC Hgb Hct MCV MCH MCHC RDW Std Deviation RDW Coeff of Jeff Plt Count MPV Immature Gran % (Auto) Neut % (Auto) Lymph % (Auto) Ocean % (Auto) Eos % (Auto) Baso % (Auto) Absolute Neuts (auto) Absolute Lymphs (auto) Total Counted Neutrophils % (Manual) Band Neutrophils % Lymphocytes % (Manual) Monocytes % (Manual) Eosinophils % (Manual) Metamyelocytes % Myelocytes % Nucleated RBC % Nucleated RBCs/100 WBC Differential Comment Diff Path Review Platelet Estimate Polychromasia Hypochromasia Anisocytosis Microcytosis Macrocytosis Ovalocytes Stomatocytes PT INR APTT Specimen Type Sample Site pH Bicarbonate Actual Total CO2 Base Excess O2 Saturation O2 % ABG pCO2 ABG pO2 Respiration Rate O2 Delivery Device Vent Mode Tidal Volume POC PEEP POC Pressure Suppt Sodium Potassium Chloride Carbon Dioxide Anion Gap BUN Creatinine Estim Creat Clear Calc Est GFR (MDRD) Af Amer Est GFR (MDRD) Non-Af BUN/Creatinine Ratio Glucose Lactic Acid 3.1 H* 2.1 H* Calcium Total Bilirubin Direct Bilirubin AST ALT Alkaline Phosphatase Troponin I B-Natriuretic Peptide Total Protein Albumin Globulin Albumin/Globulin Ratio Urine Color Urine Clarity Urine pH Ur Specific [place] Urine Protein Urine Glucose (UA) Urine Ketones Urine Occult Blood Urine Nitrite Urine Bilirubin Urine Urobilinogen Ur Leukocyte Esterase Urine RBC Urine WBC Ur Squamous Epith Cells Urine Bacteria Hyaline Casts Urine Mucus POC Glucose 127 H 12/29/20 12/29/20 12/29/20 00:03 04:00 04:00 WBC 28.7 H Corrected WBC RBC 3.33 L Hgb 8.8 L Hct 31.6 L MCV 94.9 MCH 26.4 L MCHC 27.8 L RDW Std Deviation 70.0 H RDW Coeff of Jeff 21.2 H Plt Count 312 MPV 12.1 H Immature Gran % (Auto) 2.200 H Neut % (Auto) 88.3 H Lymph % (Auto) 4.4 L Ocean % (Auto) 4.7 Eos % (Auto) 0.1 Baso % (Auto) 0.3 Absolute Neuts (auto) 25.4 H Absolute Lymphs (auto) 1.27 Total Counted Neutrophils % (Manual) Band Neutrophils % Lymphocytes % (Manual) Monocytes % (Manual) Eosinophils % (Manual) Metamyelocytes % Myelocytes % Nucleated RBC % 0.5 Nucleated RBCs/100 WBC Differential Comment Diff Path Review Platelet Estimate Polychromasia Hypochromasia Anisocytosis Microcytosis Macrocytosis Ovalocytes Stomatocytes PT INR APTT Specimen Type Sample Site pH Bicarbonate Actual Total CO2 Base Excess O2 Saturation O2 % ABG pCO2 ABG pO2 Respiration Rate O2 Delivery Device Vent Mode Tidal Volume POC PEEP POC Pressure Suppt Sodium 139 Potassium 4.9 Chloride 108 H Carbon Dioxide 24.0 Anion Gap 7 BUN 49 H Creatinine 1.80 H Estim Creat Clear Calc 19.70 Est GFR (MDRD) Af Amer 35 L Est GFR (MDRD) Non-Af 29 L BUN/Creatinine Ratio 27.2 H Glucose 178 H Lactic Acid Calcium 7.6 L Total Bilirubin Direct Bilirubin AST ALT Alkaline Phosphatase Troponin I B-Natriuretic Peptide Total Protein Albumin Globulin Albumin/Globulin Ratio Urine Color Urine Clarity Urine pH Ur Specific [place] Urine Protein Urine Glucose (UA) Urine Ketones Urine Occult Blood Urine Nitrite Urine Bilirubin Urine Urobilinogen Ur Leukocyte Esterase Urine RBC Urine WBC Ur Squamous Epith Cells Urine Bacteria Hyaline Casts Urine Mucus POC Glucose 165 H 12/29/20 12/29/20 12/29/20 04:00 04:00 05:37 WBC Corrected WBC RBC Hgb Hct MCV MCH MCHC RDW Std Deviation RDW Coeff of Jeff Plt Count MPV Immature Gran % (Auto) Neut % (Auto) Lymph % (Auto) Ocean % (Auto) Eos % (Auto) Baso % (Auto) Absolute Neuts (auto) Absolute Lymphs (auto) Total Counted Neutrophils % (Manual) Band Neutrophils % Lymphocytes % (Manual) Monocytes % (Manual) Eosinophils % (Manual) Metamyelocytes % Myelocytes % Nucleated RBC % Nucleated RBCs/100 WBC Differential Comment Diff Path Review Platelet Estimate Polychromasia Hypochromasia Anisocytosis Microcytosis Macrocytosis Ovalocytes Stomatocytes PT INR APTT Specimen Type Sample Site pH Bicarbonate Actual Total CO2 Base Excess O2 Saturation O2 % ABG pCO2 ABG pO2 Respiration Rate O2 Delivery Device Vent Mode Tidal Volume POC PEEP POC Pressure Suppt Sodium Potassium Chloride Carbon Dioxide Anion Gap BUN Creatinine Estim Creat Clear Calc Est GFR (MDRD) Af Amer Est GFR (MDRD) Non-Af BUN/Creatinine Ratio Glucose Lactic Acid 2.3 H* Calcium Total Bilirubin 1.10 H Direct Bilirubin 0.61 H AST 1990 H ALT 1510 H Alkaline Phosphatase 164 H Troponin I B-Natriuretic Peptide Total Protein 5.7 L Albumin 2.2 L Globulin 3.5 Albumin/Globulin Ratio Urine Color Urine Clarity Urine pH Ur Specific [place] Urine Protein Urine Glucose (UA) Urine Ketones Urine Occult Blood Urine Nitrite Urine Bilirubin Urine Urobilinogen Ur Leukocyte Esterase Urine RBC Urine WBC Ur Squamous Epith Cells Urine Bacteria Hyaline Casts Urine Mucus POC Glucose 192 H 12/29/20 12/29/20 12/29/20 07:04 10:00 16:42 WBC Corrected WBC RBC Hgb Hct MCV MCH MCHC RDW Std Deviation RDW Coeff of Jeff Plt Count MPV Immature Gran % (Auto) Neut % (Auto) Lymph % (Auto) Ocean % (Auto) Eos % (Auto) Baso % (Auto) Absolute Neuts (auto) Absolute Lymphs (auto) Total Counted Neutrophils % (Manual) Band Neutrophils % Lymphocytes % (Manual) Monocytes % (Manual) Eosinophils % (Manual) Metamyelocytes % Myelocytes % Nucleated RBC % Nucleated RBCs/100 WBC Differential Comment Diff Path Review Platelet Estimate Polychromasia Hypochromasia Anisocytosis Microcytosis Macrocytosis Ovalocytes Stomatocytes PT INR APTT Specimen Type ART Sample Site L Radial pH 7.35 Bicarbonate Actual 23.7 Total CO2 25 Base Excess -2 O2 Saturation 87 L O2 % 35 ABG pCO2 42.7 ABG pO2 55 L Respiration Rate O2 Delivery Device Vent Mode CPAP/PS Tidal Volume POC PEEP 5 POC Pressure Suppt 5 Sodium Potassium Chloride Carbon Dioxide Anion Gap BUN Creatinine Estim Creat Clear Calc Est GFR (MDRD) Af Amer Est GFR (MDRD) Non-Af BUN/Creatinine Ratio Glucose Lactic Acid Calcium Total Bilirubin Direct Bilirubin AST ALT Alkaline Phosphatase Troponin I B-Natriuretic Peptide Total Protein Albumin Globulin Albumin/Globulin Ratio Urine Color Urine Clarity Urine pH Ur Specific [place] Urine Protein Urine Glucose (UA) Urine Ketones Urine Occult Blood Urine Nitrite Urine Bilirubin Urine Urobilinogen Ur Leukocyte Esterase Urine RBC Urine WBC Ur Squamous Epith Cells Urine Bacteria Hyaline Casts Urine Mucus POC Glucose 184 H 246 H 12/29/20 12/30/20 12/30/20 22:26 04:25 04:25 WBC 31.8 H* Corrected WBC RBC 3.77 L Hgb 9.9 L Hct 34.9 L MCV 92.6 MCH 26.3 L MCHC 28.4 L RDW Std Deviation 68.9 H RDW Coeff of Jeff 21.4 H Plt Count 511 H MPV 12.2 H Immature Gran % (Auto) 3.000 H Neut % (Auto) 89.1 H Lymph % (Auto) 2.7 L Ocean % (Auto) 4.9 Eos % (Auto) 0.1 Baso % (Auto) 0.2 Absolute Neuts (auto) 28.4 H Absolute Lymphs (auto) 0.85 Total Counted Neutrophils % (Manual) Band Neutrophils % Lymphocytes % (Manual) Monocytes % (Manual) Eosinophils % (Manual) Metamyelocytes % Myelocytes % Nucleated RBC % 1.4 Nucleated RBCs/100 WBC Differential Comment SCANNED Diff Path Review May foll Platelet Estimate Polychromasia RARE Hypochromasia 1+ Anisocytosis 1+ Microcytosis RARE Macrocytosis RARE Ovalocytes Stomatocytes PT INR APTT Specimen Type Sample Site pH Bicarbonate Actual Total CO2 Base Excess O2 Saturation O2 % ABG pCO2 ABG pO2 Respiration Rate O2 Delivery Device Vent Mode Tidal Volume POC PEEP POC Pressure Suppt Sodium 137 Potassium 5.9 H Chloride 105 Carbon Dioxide 25.0 Anion Gap 7 BUN 64 H Creatinine 2.51 H Estim Creat Clear Calc 14.12 Est GFR (MDRD) Af Amer 24 L Est GFR (MDRD) Non-Af 20 L BUN/Creatinine Ratio 25.5 H Glucose 233 H Lactic Acid Calcium 8.0 L Total Bilirubin 0.80 Direct Bilirubin AST 658 H ALT 1252 H Alkaline Phosphatase 154 H Troponin I B-Natriuretic Peptide Total Protein 6.3 L Albumin 2.3 L Globulin 4.0 Albumin/Globulin Ratio 0.6 L Urine Color Urine Clarity Urine pH Ur Specific [place] Urine Protein Urine Glucose (UA) Urine Ketones Urine Occult Blood Urine Nitrite Urine Bilirubin Urine Urobilinogen Ur Leukocyte Esterase Urine RBC Urine WBC Ur Squamous Epith Cells Urine Bacteria Hyaline Casts Urine Mucus POC Glucose 237 H Microbiology 12/28/20 11:30 Sputum, Induced/Lukens Gram Stain - Final 12/28/20 11:30 Sputum, Induced/Lukens Respiratory Culture - Preliminary Gram negative [email or web address] 12/28/20 08:25 Urine Catheter - Catheter Urine Culture - Preliminary 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 Brown Vargas MD) Other specified peripheral vascular diseases (Acute) Fracture of right great toe (Acute) Cellulitis of right leg (Acute) Debility (Acute) Acute kidney injury (Acute) RECOMMENDATIONS: 1. Await species and sensitivities. Possibly transition to p.o. antibiotics 2. Continue Eliquis 3. Discontinue PRISCILA inhibitor given renal function 4. Add Norvasc given hypertension 5. Continue sliding scale insulin 6. Likely okay to leave the intensive care unit from my perspective IMPRESSIONS: 1. Acute on chronic hypoxic respiratory failure Exact etiology is unclear at this time. Patient is recovered rapidly after intubation. Clinical suspicion for decompensation secondary to gram- negative septic shock and failure to compensate from a respiratory standpoint. Patient has responded well to Zosyn therapy. Patient appears to be on baseline oxygen requirements. 2. Possible septic shock Patient has been on antibiotics secondary to a great toe/right leg cellulitis. Patient did have a recent MRI that was not consistent with osteomyelitis. Patient appears to have gram-negative's in her sputum, so pneumonia would be a consideration. Await sensitivities, but may be able to treat with p.o. 3. Chronic A. fib/chronic diastolic CHF/aortic stenosis Patient currently on amiodarone and metoprolol at baseline. Likely okay to reinitiate antihypertensives and rate control at this time. Patient may benefit from diuretic therapy in the near future. 4. CKD stage III Patient was being followed by nephrology in TCU. Patient has been getting diuretics intermittently as necessary. Hyperkalemia is improved. 5. Hypoglycemia/diabetes mellitus type 2 with peripheral vascular disease and diabetic nephropathy/neuropathy Hold basal insulin for now. Treat with sliding scale insulin only. Unclear if an element of hypoglycemia related to septicemia. Possible initiation of basal insulin if they wish and able to tolerate p.o. 6. Debility/obesity/multiple allergies/poor history Complicates care, management, recovery and prognosis. Unable to discuss CODE STATUS with the patient at this time, so patient will be a default full code for now. Okay to initiate tube feeds from my perspective. Inpatient E&M: 94505 Subs Hosp L3
[2020-12-30] MEDS: Insulin Lispro 100 UNIT/ML INSULN.PEN SC ×4 (08:41→21:59)
[2020-12-30] MEDS: Aspirin E.C. 81 MG Tablet PO (08:42)
[2020-12-30] MEDS: Paroxetine 20 MG Tablet 40 MG PO (08:43)
[2020-12-30] MEDS: Cyanocobalamin 500 MCG Tablet 1000 MCG PO (08:43)
[2020-12-30] MEDS: Metoprolol Tartrate 25 MG Tablet PO ×2 (08:43→21:58)
[2020-12-30] MEDS: APIXABAN 2.5 MG TABLET PO ×2 (08:43→21:59)
[2020-12-30] MEDS: Pantoprazole Sodium 40 MG Tablet PO (08:43)
[2020-12-30 08:51] LABS: Bedside Glucose 205 mg/dL (70-110)
[2020-12-30] MEDS: Sodium Polystyrene Sulfonate 15 GM/60 ML UDC PO (09:35)
--- NOTE | 2020-12-30 09:36 | PN_ITS ---
Patient Problems: Active and Suspected Problems (Last Reviewed 12/10/20 @ 11:[address] Brown Vargas MD) Other specified peripheral vascular diseases (Acute) Fracture of right great toe (Acute) Cellulitis of right leg (Acute) Debility (Acute) Subjective: Breathing well. Denies overnight issues. Vitals/I&O's: Vital Signs Temp Pulse Resp BP Pulse Ox 37.2 C 64 16 167/72 H 92 12/30/20 08:00 12/30/20 08:43 12/30/20 08:00 12/30/20 08:00 12/30/20 08:00 Oxygen Flow Rate (L/min) 5 Oxygen Delivery Method Nasal Cannula Weight: 89.9 kg Body Mass Index (BMI) 38.8 Finger Stick Blood Glucose 112 Intake and Output for Last 24 Hours 12/28/20 12/29/20 12/30/20 23:59 23:59 23:59 Intake Total 1979.22 / 2028.22 440 / 440 Output Total 352 / 392 365 / 365 Balance 1627.22 / 1637.22 75 / 75 General: Alert, No apparent distress HEENT: Atraumatic, Normocephalic Oral: Moist Mucosa, No Gingival or Mucosal Lesions/ Ulcerations Neck: No Nodes, Thyroid Normal Size and Texture Lungs: Diminished, - - coarse breath sounds bilaterally. Cardiovascular: Regular rate, Regular Rhythm, Normal S1, Normal S2, No murmurs Abdomen: Bowel Sounds Present, Soft, Non Tender, Non-Distended, No Hepato- splenomegaly Extremities: No edema, No Calf Tenderness Skin: No rashes, No breakdown Psych/Mental Status: Normal Affect, Appropriate Microbiology Past 72 Hours 12/28/20 07:16 Blood Culture (Wb) - Anticubital Left Blood Culture - Preliminary No growth in 48 hours. 12/28/20 11:30 Sputum, Induced/Lukens Gram Stain - Final 12/28/20 11:30 Sputum, Induced/Lukens Respiratory Culture - Preliminary Gram negative julieta 12/28/20 08:25 Urine Catheter - Catheter Urine Culture - Preliminary GNR lactose starch dumper 12/28/20 07:15 Blood Culture (Wb) - Anticubital Right Blood Culture - Preliminary 12/28/20 07:15 Mucosa - Nose SARS-CoV-2 Antigen (Rapid) - Final Laboratory Results 12/28/20 06:44: Diff Path Review Reviewed 12/29/20 04:00: Total Bilirubin 1.10 H, Direct Bilirubin 0.61 H, AST 1990 H, ALT 1510 H, Alkaline Phosphatase 164 H, Total Protein 5.7 L, Albumin 2.2 L, Globulin 3.5 12/29/20 10:00: POC Glucose 184 H 12/29/20 16:42: POC Glucose 246 H 12/29/20 22:26: POC Glucose 237 H 12/30/20 04:25: WBC 31.8 H*, RBC 3.77 L, Hgb 9.9 L, Hct 34.9 L, MCV 92.6, MCH 26.3 L, MCHC 28.4 L, RDW Std Deviation 68.9 H, RDW Coeff of Jeff 21.4 H, Plt Count 511 H, MPV 12.2 H, Immature Gran % (Auto) 3.000 H, Neut % (Auto) 89.1 H, Lymph % (Auto) 2.7 L, [place] % (Auto) 4.9, Eos % (Auto) 0.1, Baso % (Auto) 0.2, Absolute Neuts (auto) 28.4 H, Absolute Lymphs (auto) 0.85, Nucleated RBC % 1.4, Differential Comment SCANNED, Diff Path Review May foll, Polychromasia RARE, Hypochromasia 1+, Anisocytosis 1+, Microcytosis RARE, Macrocytosis RARE 12/30/20 04:25: Sodium 137, Potassium 5.9 H, Chloride 105, Carbon Dioxide 25.0, Anion Gap 7, BUN 64 H, Creatinine 2.51 H, Estim Creat Clear Calc 14.12, Est GFR (MDRD) Af Amer 24 L, Est GFR (MDRD) Non-Af 20 L, BUN/Creatinine Ratio 25.5 H, Glucose 233 H, Calcium 8.0 L, Total Bilirubin 0.80, AST 658 H, ALT 1252 H, Alkaline Phosphatase 154 H, Total Protein 6.3 L, Albumin 2.3 L, Globulin 4.0, Albumin/Globulin Ratio 0.6 L 12/30/20 08:35: POC Glucose 205 H Current Medications Albuterol Sulfate (Albuterol 2.5 Mg/3 Ml Vial.Neb.) 2.5 mg INHALATION Q2H PRN PRN PRN Reason: SOB &/OR WHEEZING Albuterol/Ipratropium (Ipratropium/Albuterol Sulfate 3 Ml Ampul.Neb) 3 ml INHALATION Q6H.RT [facility] Last Admin: 12/30/20 07:53 Dose: 3 ml Documented by: Amlodipine Besylate (Amlodipine 5 Mg Tablet) 5 mg PO DAILY [facility] Last Admin: 12/30/20 06:43 Dose: 5 mg Documented by: Apixaban (Apixaban 2.5 Mg Tablet) 2.5 mg PO BID [facility] Last Admin: 12/30/20 08:43 Dose: 2.5 mg Documented by: Aspirin (Aspirin E.C. 81 Mg Tablet) 81 mg PO DAILY@0800 [facility] Last Admin: 12/30/20 08:42 Dose: 81 mg Documented by: Atorvastatin Calcium (Atorvastatin Calcium 80 Mg Tablet) 80 mg PO QHS [facility] Last Admin: 12/29/20 22:27 Dose: 80 mg Documented by: Cyanocobalamin (Cyanocobalamin 500 Mcg Tablet) 1,000 mcg PO DAILY [facility] Last Admin: 12/30/20 08:43 Dose: 1,000 mcg Documented by: Fluticasone Propionate (Fluticasone 0.05% 1 [place] Nasal.Sry) 2 spray NASAL DAILY [facility] Last Admin: 12/30/20 08:44 Dose: Not Given Documented by: Sodium Chloride () 250 mls @ 15 mls/hr IV .[id number] PRN PRN Reason: Saline Flush Last Infusion: 12/29/20 23:04 Dose: Infused Documented by: Sodium Chloride () 250 mls @ 15 mls/hr IV .[id number] PRN PRN Reason: Additional IVPB Infusion Piperacillin Sod/Tazobactam (Sod 3.375 gm/ Sodium Chloride) 50 mls @ 12.5 mls/hr IV Q8 [facility] Last Admin: 12/30/20 07:07 Dose: Not Given Documented by: Insulin Human Lispro (Insulin Lispro 100 Unit/Ml Insuln.Pen) 0 unit SC [facility]; Protocol Last Admin: 12/30/20 08:41 Dose: 3 u Documented by: Levothyroxine Sodium (Levothyroxine 25 Mcg Tablet) 25 mcg PO DAILY@0600 [facility] Last Admin: 12/30/20 05:59 Dose: 25 mcg Documented by: Methylprednisolone (Methylprednisolone 40 Mg/Ml Vial) 40 mg IV DAILY [facility] Last Admin: 12/30/20 09:30 Dose: Not Given Documented by: Metoprolol Tartrate (Metoprolol Tartrate 25 Mg Tablet) 25 mg PO BID [facility] Last Admin: 12/30/20 08:43 Dose: 25 mg Documented by: Ondansetron HCl (Ondansetron 4 Mg/2 Ml Vial) 4 mg IV Q8H PRN PRN PRN Reason: NAUSEA/VOMITING Oxycodone HCl (Oxycodone 5 Mg Tablet) 5 mg PO TID PRN PRN PRN Reason: PAIN 1-10 Pantoprazole Sodium (Pantoprazole Sodium 40 Mg Tablet) 40 mg PO DAILY [facility] Last Admin: 12/30/20 08:43 Dose: 40 mg Documented by: Paroxetine HCl (Paroxetine 20 Mg Tablet) 40 mg PO DAILY [facility] Last Admin: 12/30/20 08:43 Dose: 40 mg Documented by: Sodium Chloride (0.9% Saline Lock 10 Ml Syringe) 10 - 40 ml IV UD PRN PRN Reason: SALINE FLUSH Last Admin: 12/29/20 17:10 Dose: 20 ml Documented by: STROKE Vital Signs/Narrative: Vital Signs Temp Pulse Resp BP Pulse Ox 12/30/20 08:43 64 12/30/20 08:00 37.2 C 62 16 167/72 H 92 12/30/20 07:56 66 12/30/20 07:54 65 20 H 92 12/30/20 06:00 37.3 C H 58 L 16 171/56 H 93 Medical Necessity - Tobacco Use Smoking Status: Unknown if ever smoked Assessment/Plan All Active Problems (Last Reviewed 12/10/20 @ 11:[address] Brown Vargas MD) Other specified peripheral vascular diseases (Acute) Fracture of right great toe (Acute) Cellulitis of right leg (Acute) Debility (Acute) Acute kidney injury (Acute) 1. 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 septic shock on pip/tazo UA unremarkable, so doubt UTI likely 2/2 pneumonia 3. gram negative pneumonia pip/tazo follow up cultures. 4. transaminitis POA, unclear etiology follow up labs if still elevated, check US 5. hyperkalemia back up will give kayexalate lisinopril dc'd 6. MARILEE cr 1.8 to 2.5 lisinopril dc'd monitor 7. chronic conditions: afib, HFpEF, HTN, GERD: stable 8. DM2: uncontrolled 9. VTE prophylaxis: anticoagulated TF to PCU Inpatient E&M: 70662 Subs Hosp L2
--- NOTE | 2020-12-30 11:14 | CASEMGMT ---
As per physician, it would be appropriate to start precert for pt to return to TCU. RAFITA called Jyothi in TCU, message left to start precert. SRINIVASAN Campos
[2020-12-30 11:25] LABS: Bedside Glucose 217 mg/dL (70-110)
[2020-12-30 14:51] LABS: Pathologist Review Reviewed
[2020-12-30 16:35] LABS: Bedside Glucose 178 mg/dL (70-110)
[2020-12-30] MEDS: Atorvastatin Calcium 80 MG Tablet PO (21:59)
[2020-12-30 22:20] LABS: Bedside Glucose 216 mg/dL (70-110)
[2020-12-31] VITALS (10 sets, daily range): BP systolic 141–169; BP diastolic 57–75; PULSE 58–63; RESP 14–19; TEMP 36.6–36.8; O2SAT 91–95
[2020-12-31] MEDS: Ipratropium/Albuterol Sulfate 3 ML AMPUL.NEB INHALATION ×3 (02:26→12:13)
[2020-12-31 06:03] LABS: Absolute Lymphocyte Count 1.56 X10^3/uL (0.83-4.51); Absolute Neutrophil Count 15.5 X10^3/uL (2.0-7.7); Basophil# 0.03 X10^3/uL; Basophil% 0.2 % (0-1); Eosinophil# 0.51 X10^3/uL; Eosinophils% 2.6 % (0-5); Hematocrit 32.6 % (37-47); Hemoglobin 9.3 g/dL (12.0-15.0); Lymphocyte # 1.56 X10^3/ul (4.0); Mean Corp Hgb Conc 28.5 g/dL (32-36); Mean Corpuscular Hgb 25.9 pg (27.0-32.0); Mean Corpuscular Volume 90.8 fL (81-99); Mean Platelet Vol. 11.8 fl (6.2-12.0); Monocyte# 1.61 X10^3/uL; Monocyte% 8.3 % (0-10); NRBC Flagged by Analyzer 2.1 % (0-5); Neutrophil # 15.54 X10^3/uL (2.7-7.7); Neutrophil % 79.6 % (47-70); POSITIVE DIFFERENTIAL YES; POSITIVE MORPHOLOGY YES; Platelet Count 438 K/mm3 (150-450); RBC Distribution Width CV 21.2 % (11.6-14.6); RBC Distribution Width SD 68.2 fl (35.1-43.9); Red Blood Count 3.59 M/mm3 (4.2-5.4); White Blood Count 19.5 K/mm3 (4.4-11.0)
[2020-12-31 06:06] LABS: Differential Indicated SCAN CRITERIA MET
[2020-12-31 06:17] LABS: Differential Comment SCANNED
[2020-12-31 06:19] LABS: Anisocytosis 1+; Macrocytosis 1+; Polychromasia RARE
[2020-12-31 06:20] LABS: Microcytosis RARE; Ovalocyte RARE
[2020-12-31 06:27] LABS: ALB/GLOB Ratio 0.6 RATIO (0.9-2.4); AST(SGOT) 346 U/L (15-37); Alanine Aminotransfer ALT/SGPT 939 U/L (13-56); Albumin, Serum 2.3 g/dL (3.2-5.0); Alkaline Phosphatase 137 U/L (45-117); Anion Gap 9 (5-15); BUN 59 mg/dL (7-18); BUN/Creat Ratio 29.1 RATIO (10-20); Calcium,Total 7.8 mg/dL (8.5-10.1); Chloride 109 mmol/L (98-107); Creatinine, Serum 2.03 mg/dL (0.55-1.02); EST Glomerular Filtration Rate 25 mL/min (>60); Est Glom Filt Rate - Afr Amer 31 mL/min (>60); Estimated Creatinine Clearance 17.46 ml/min; Globulin 3.6 g/dL (2.2-4.2); Glucose 128 mg/dL (74-106); Potassium 4.2 mmol/L (3.5-5.1); Protein, Total 5.9 g/dL (6.4-8.2); Sodium Level 140 mmol/L (136-145)
[2020-12-31 06:45] LABS: Bedside Glucose 125 mg/dL (70-110)
[2020-12-31] MEDS: Levothyroxine 25 MCG TABLET PO (06:46)
[2020-12-31] MEDS: Aspirin E.C. 81 MG Tablet PO (08:40)
--- NOTE | 2020-12-31 09:13 | PCM.PN.INT ---
Subjective: Patient transferred out of the intensive care unit yesterday. Patient states that she feels much improved compared to previous. Patient feels she is strong enough to go home. No bleeding complications have been reported. Patient is not reporting any significant productive cough. General: Alert, Oriented x3, Cooperative, - - Mild conversational dyspnea. Morbidly obese. HEENT: Atraumatic, PERRLA, EOMI, Normocephalic, - - No scleral icterus or injection noted Oral: Moist Mucosa, No Gingival or Mucosal Lesions/ Ulcerations Neck: Supple, No JVD, No Nodes, Trachea Midline Lungs: No rhonchi, No wheeze, No rales, Diminished Cardiovascular: Normal S1, Normal S2, Irregular Rate, Murmur, No rub noted, No Gallop Abdomen: Bowel Sounds Present, Soft, Non Tender, Non-Distended, Obese Extremities: No clubbing, No cyanosis Skin: - - No changes from previous Musculoskeletal: No Tenderness to Palpation of Joints or Extremities Lymphatic: No Cervical, Supraclavicular, or Inguinal Adenopathy Neurological: Cranial nerves II-XII grossly intact, Neuro grossly intact, Motor Exam 5/5 strength throughout Psych/Mental Status: Alert and oriented to time, place, person, mood and affect Vital Signs Temp Pulse Resp BP Pulse Ox 36.6 C 61 18 169/75 H 91 12/31/20 04:00 12/31/20 07:53 12/31/20 07:53 12/31/20 04:00 12/31/20 07:53 Oxygen Flow Rate (L/min) 4 Oxygen Delivery Method Nasal Cannula Weight: 91.2 kg Body Mass Index (BMI) 38.8 Finger Stick Blood Glucose 112 Intake and Output for Last 24 Hours 12/29/20 12/30/20 12/31/20 23:59 23:59 23:59 Intake Total 1979. / 2028.22 1330 / 1330 110 / 110 Output Total 352 / 392 1240 / 1240 175 / 175 Balance 1627.22 / 1637.22 90 / 90 -65 / -65 Labs (Last 48 Hours) 12/28/20 12/29/20 12/29/20 06:44 04:00 10:00 WBC RBC Hgb Hct MCV MCH MCHC RDW Std Deviation RDW Coeff of Jeff Plt Count MPV Immature Gran % (Auto) Neut % (Auto) Lymph % (Auto) [place] % (Auto) Eos % (Auto) Baso % (Auto) Absolute Neuts (auto) Absolute Lymphs (auto) Nucleated RBC % Differential Comment Diff Path Review Reviewed Polychromasia Hypochromasia Anisocytosis Microcytosis Macrocytosis Ovalocytes Sodium Potassium Chloride Carbon Dioxide Anion Gap BUN Creatinine Estim Creat Clear Calc Est GFR (MDRD) Af Amer Est GFR (MDRD) Non-Af BUN/Creatinine Ratio Glucose Calcium Total Bilirubin 1.10 H Direct Bilirubin 0.61 H AST 1990 H ALT 1510 H Alkaline Phosphatase 164 H Total Protein 5.7 L Albumin 2.2 L Globulin 3.5 Albumin/Globulin Ratio POC Glucose 184 H 12/29/20 12/29/20 12/30/20 16:42 22:26 04:25 WBC 31.8 H* RBC 3.77 L Hgb 9.9 L Hct 34.9 L MCV 92.6 MCH 26.3 L MCHC 28.4 L RDW Std Deviation 68.9 H RDW Coeff of Jeff 21.4 H Plt Count 511 H MPV 12.2 H Immature Gran % (Auto) 3.000 H Neut % (Auto) 89.1 H Lymph % (Auto) 2.7 L [place] % (Auto) 4.9 Eos % (Auto) 0.1 Baso % (Auto) 0.2 Absolute Neuts (auto) 28.4 H Absolute Lymphs (auto) 0.85 Nucleated RBC % 1.4 Differential Comment SCANNED Diff Path Review Reviewed Polychromasia RARE Hypochromasia 1+ Anisocytosis 1+ Microcytosis RARE Macrocytosis RARE Ovalocytes Sodium Potassium Chloride Carbon Dioxide Anion Gap BUN Creatinine Estim Creat Clear Calc Est GFR (MDRD) Af Amer Est GFR (MDRD) Non-Af BUN/Creatinine Ratio Glucose Calcium Total Bilirubin Direct Bilirubin AST ALT Alkaline Phosphatase Total Protein Albumin Globulin Albumin/Globulin Ratio POC Glucose 246 H 237 H 12/30/20 12/30/20 12/30/20 04:25 08:35 11:22 WBC RBC Hgb Hct MCV MCH MCHC RDW Std Deviation RDW Coeff of Jeff Plt Count MPV Immature Gran % (Auto) Neut % (Auto) Lymph % (Auto) [place] % (Auto) Eos % (Auto) Baso % (Auto) Absolute Neuts (auto) Absolute Lymphs (auto) Nucleated RBC % Differential Comment Diff Path Review Polychromasia Hypochromasia Anisocytosis Microcytosis Macrocytosis Ovalocytes Sodium 137 Potassium 5.9 H Chloride 105 Carbon Dioxide 25.0 Anion Gap 7 BUN 64 H Creatinine 2.51 H Estim Creat Clear Calc 14.12 Est GFR (MDRD) Af Amer 24 L Est GFR (MDRD) Non-Af 20 L BUN/Creatinine Ratio 25.5 H Glucose 233 H Calcium 8.0 L Total Bilirubin 0.80 Direct Bilirubin AST 658 H ALT 1252 H Alkaline Phosphatase 154 H Total Protein 6.3 L Albumin 2.3 L Globulin 4.0 Albumin/Globulin Ratio 0.6 L POC Glucose 205 H 217 H 12/30/20 12/30/20 12/31/20 16:26 21:57 05:40 WBC 19.5 H RBC 3.59 L Hgb 9.3 L Hct 32.6 L MCV 90.8 MCH 25.9 L MCHC 28.5 L RDW Std Deviation 68.2 H RDW Coeff of Jeff 21.2 H Plt Count 438 MPV 11.8 Immature Gran % (Auto) 1.300 H Neut % (Auto) 79.6 H Lymph % (Auto) 8.0 L [place] % (Auto) 8.3 Eos % (Auto) 2.6 Baso % (Auto) 0.2 Absolute Neuts (auto) 15.5 H Absolute Lymphs (auto) 1.56 Nucleated RBC % 2.1 Differential Comment SCANNED Diff Path Review May foll Polychromasia RARE Hypochromasia Anisocytosis 1+ Microcytosis RARE Macrocytosis 1+ Ovalocytes RARE Sodium Potassium Chloride Carbon Dioxide Anion Gap BUN Creatinine Estim Creat Clear Calc Est GFR (MDRD) Af Amer Est GFR (MDRD) Non-Af BUN/Creatinine Ratio Glucose Calcium Total Bilirubin Direct Bilirubin AST ALT Alkaline Phosphatase Total Protein Albumin Globulin Albumin/Globulin Ratio POC Glucose 178 H 216 H 12/31/20 12/31/20 05:40 06:39 WBC RBC Hgb Hct MCV MCH MCHC RDW Std Deviation RDW Coeff of Jeff Plt Count MPV Immature Gran % (Auto) Neut % (Auto) Lymph % (Auto) [place] % (Auto) Eos % (Auto) Baso % (Auto) Absolute Neuts (auto) Absolute Lymphs (auto) Nucleated RBC % Differential Comment Diff Path Review Polychromasia Hypochromasia Anisocytosis Microcytosis Macrocytosis Ovalocytes Sodium 140 Potassium 4.2 Chloride 109 H Carbon Dioxide 22.0 Anion Gap 9 BUN 59 H Creatinine 2.03 H Estim Creat Clear Calc 17.46 Est GFR (MDRD) Af Amer 31 L Est GFR (MDRD) Non-Af 25 L BUN/Creatinine Ratio 29.1 H Glucose 128 H Calcium 7.8 L Total Bilirubin 0.80 Direct Bilirubin AST 346 H ALT 939 H Alkaline Phosphatase 137 H Total Protein 5.9 L Albumin 2.3 L Globulin 3.6 Albumin/Globulin Ratio 0.6 L POC Glucose 125 H Microbiology 12/28/20 11:30 Sputum, Induced/Lukens Gram Stain - Final 12/28/20 11:30 Sputum, Induced/Lukens Respiratory Culture - Final Serratia marcescens 12/28/20 08:25 Urine Catheter - Catheter Urine Culture - Final Klebsiella pneumoniae sp pneum 12/28/20 07:15 Blood Culture (Wb) - Anticubital Right Blood Culture - Preliminary 12/28/20 07:16 Blood Culture (Wb) - Anticubital Left Blood Culture - Preliminary No growth in 48 hours. Medical Necessity - Tobacco Use Smoking Status: Unknown if ever smoked Assessment/Plan All Active Problems (Last Reviewed 12/10/20 @ 11:[address] Brown Vargas MD) Other specified peripheral vascular diseases (Acute) Fracture of right great toe (Acute) Cellulitis of right leg (Acute) Debility (Acute) Acute kidney injury (Acute) RECOMMENDATIONS: 1. Consider transition to p.o. antibiotics 2. Continue Eliquis 3. Consider increasing Norvasc therapy 4. Walking oximetry prior to discharge 5. Continue sliding scale insulin 6. Discharge planning IMPRESSIONS: 1. Acute on chronic hypoxic respiratory failure Exact etiology is unclear at this time. Patient is recovered rapidly after intubation. Clinical suspicion for decompensation secondary to gram-negative septic shock and failure to compensate from a respiratory standpoint. Only 1+ gram negative in the sputum. Clinical suspicion that septic shock is more related to urine. Patient has responded well to Zosyn therapy, but could likely be transitioned to a p.o. antibiotic. Patient appears to be on baseline oxygen requirements. 2. Possible septic shock Patient has been on antibiotics secondary to a great toe/right leg cellulitis. Patient did have a recent MRI that was not consistent with osteomyelitis. Patient appears to have gram-negative's in her sputum, so pneumonia would be a consideration. However, given the relatively low growth with Serratia, Klebsiella UTI is the most likely etiology of septic shock from my perspective. 3. Chronic A. fib/chronic diastolic CHF/aortic stenosis Patient currently on amiodarone and metoprolol at baseline. Likely okay to reinitiate antihypertensives and rate control at this time. Patient may benefit from diuretic therapy in the near future given need for resuscitation fluids. 4. CKD stage III Patient was being followed by nephrology in TCU. Patient has been getting diuretics intermittently as necessary. Hyperkalemia is improved. 5. Hypoglycemia/diabetes mellitus type 2 with peripheral vascular disease and diabetic nephropathy/neuropathy Hold basal insulin for now. Treat with sliding scale insulin only. Unclear if an element of hypoglycemia related to septicemia. Possible initiation of basal insulin if they wish and able to tolerate p.o. 6. Debility/obesity/multiple allergies/poor history Complicates care, management, recovery and prognosis. Unable to discuss CODE STATUS with the patient at this time, so patient will be a default full code for now. Inpatient E&M: 99399 Subs Hosp L3
[2020-12-31] MEDS: Cyanocobalamin 500 MCG Tablet 1000 MCG PO (09:45)
[2020-12-31] MEDS: Metoprolol Tartrate 25 MG Tablet PO (09:45)
[2020-12-31] MEDS: APIXABAN 2.5 MG TABLET PO (09:45)
[2020-12-31] MEDS: Pantoprazole Sodium 40 MG Tablet PO (09:45)
[2020-12-31] MEDS: amLODIPine 5 MG Tablet PO (09:45)
[2020-12-31] MEDS: Fluticasone 0.05% 1 SPRAY NASAL.SRY 2 SPRAY NASAL (09:46)
[2020-12-31] MEDS: Paroxetine 20 MG Tablet 40 MG PO (09:46)
[2020-12-31] MEDS: 0.9% Saline Lock 10 ML Syringe IV (09:49)
--- NOTE | 2020-12-31 10:30 | CON.PCM_ITS ---
Problem List (1) Debility Status: Acute (2) Depression Status: Chronic (3) Diabetic polyneuropathy Status: Chronic (4) Non-pressure chronic ulcer of other part of left foot with fat layer exposed Status: Chronic (5) Acute kidney injury Status: Acute (6) Chronic ulcer of great toe of right foot with fat layer exposed Status: Chronic (7) Cellulitis of right leg Status: Acute (8) Peripheral arterial occlusive disease Status: Chronic (9) Atrial fibrillation Status: Chronic (10) Osteoporosis Status: Chronic (11) Gastroesophageal reflux disease Status: Chronic (12) Insomnia Status: Chronic (13) Obesity Status: Chronic Qualifiers: Obesity type: due to excess calories Obesity classification: adult class 2 (BMI 35 - 39.9) Serious obesity comorbidity presence: with serious comorbidity Body mass index: BMI 38.0-38.9 Qualified Code(s): E66.01 - Morbid (severe) obesity due to excess calories; Z68.38 - Body mass index [BMI] 38.0-38.9, adult (14) Toxic multinodular goiter Status: Chronic (15) Polyneuropathy due to type 2 diabetes mellitus Status: Chronic (16) COPD (chronic obstructive pulmonary disease) Status: Chronic (17) Paroxysmal atrial fibrillation Status: Chronic (18) Anemia Status: Chronic (19) Non-rheumatic aortic stenosis Status: Chronic (20) H/O aortic valve replacement Status: Chronic Comment: TAVR: 23 mm Guillaume-Sapiens S3 valve 12/03/2016 (21) Chronic diastolic heart failure Status: Chronic (22) Left carotid artery stenosis Status: Chronic (23) Hyperlipidemia Status: Chronic Qualifiers: (24) Essential (primary) hypertension Status: Chronic History of Present Illness Date of Consult: 12/31/20 Reason for Consult: debility Requesting physician: [] Primary care physician: HERNESTO MerrillC - History of Present Illness The patient is a 75 year old F with past medical history as below, presented to the ED from the transitional care unit 12/28/2020 secondary to rapid response for hypoxia and lethargy. She was on the transitional care unit after hospitalization 12/06 through 12/12 for lower extremity cellulitis. Patient was given Solu-Medrol, Benadryl, and Pepcid secondary to suspicion of angioedema of the tongue. She was placed on a nonrebreather secondary to hypoxia into the 70s on her baseline of 4 L per nasal cannula. Patient was intubated in the emergency room after worsening respiratory status and transferred to the ICU for further evaluation and management. She had a significant leukocytosis of 20,600, glucose of 46, MARILEE with hyperkalemia, and INR was 2.1 the setting of elevated liver function studies. BNP was moderately elevated at 691. X-ray showed suspected left hilar mass or lymphadenopathy, a CT of the chest was recommended. Also cardiomegaly. There was no definite identifiable cause other than possible septic shock with respiratory decompensation for her acute on chronic hypoxic respiratory failure, possibly from UTI. She was hypotensive but that has resolved. Patient was originally in TCU following a hospitalization for right lower extremity cellulitis and fracture of the right great toe. MRI had not shown any osteomyelitis, however she was transition to the TCU for antibiotic therapy. It appears she had an echo in November 2020 showing EF of 65%, diffuse MV thickening, and RVSP of 46 mmHg, as well as moderate aortic stenosis. Patient reports she is feeling much better. She wears chronic oxygen at home at 4 L and feels she is back to her baseline regarding her breathing. She would like to be a full code but does not want to be on a ventilator long-term. Otherwise, she would like CPR including chest compressions, intubation, and medications to sustain life. Reports she is able to stand and uses a walker for ambulation. She also has a mobility chair. States she is able to cook and clean and perform all her ADLs independently. She does admit it takes her more time than normal but that is due to her breathing. Also has neuropathy of both legs, severity depends on the day. There is 1+ edema to her lower extremities. She is wanting to go home now. Patient Problems: Chronic Problems (Last Reviewed 12/10/20 @ 11:[address] Brown Vargas MD) Other specified peripheral vascular diseases (Chronic) Non-pressure chronic ulcer of other part of left foot with fat layer exposed (Chronic) Chronic ulcer of great toe of right foot with fat layer exposed (Chronic) Depression (Chronic) Peripheral arterial occlusive disease (Chronic) Diabetic polyneuropathy (Chronic) Atrial fibrillation (Chronic) Hypertension (Chronic) Hypokalemia (Chronic) Osteoporosis (Chronic) Gastroesophageal reflux disease (Chronic) Insomnia (Chronic) Obesity (Chronic) Acute on chronic diastolic CHF (congestive heart failure) (Chronic) COPD exacerbation (Chronic) Diabetes (Chronic) Toxic multinodular goiter (Chronic) Polyneuropathy due to type 2 diabetes mellitus (Chronic) COPD (chronic obstructive pulmonary disease) (Chronic) Acute on chronic respiratory failure with hypoxia (Chronic) Paroxysmal atrial fibrillation (Chronic) Anemia (Chronic) Non-rheumatic aortic stenosis (Chronic) H/O aortic valve replacement (Chronic 12/03/16) TAVR: 23 mm Guillaume-Sapiens S3 valve 12/03/2016 Chronic diastolic heart failure (Chronic) Left carotid artery stenosis (Chronic) Right bundle branch block (RBBB) (Chronic) Hyperlipidemia (Chronic) Essential (primary) hypertension (Chronic) Surgical History: appendectomy - Right hip replacement, back surgery, laminectomy, carpal tunnel surgery, right leg hematoma extraction, hysterectomy, rotator cuff repair, total hip arthroplasty - Right., - - Aortic valve rep lacement, TAVR, Laminectomy, Tympanostomy, Melanoma excision, Right carpal tunnel release. Psychiatric History: Anxiety, Depression Home Medications: Ambulatory Orders Medication Instructions Recorded Albuterol Aerosols [Ventolin 2.5 mg INHALATION Q4H PRN PRN 09/26/19 Aerosols] Albuterol IH (ProAir) [Proair Hfa] 2 puff INHALATION Q6H PRN PRN 09/26/19 Cyanocobalamin (Vitamin B-12) 1,000 mcg PO DAILY 09/26/19 [Vitamin B-12] Fluticasone 0.05% [Flonase Nasal 2 spray NASAL DAILY 09/26/19 [place]] Fluticasone/Salmeterol [Advair Hfa 2 puff INHALATION BID 09/26/19 115-21 Mcg Inhaler] L.acidoph,Paracasei, B.lactis 1 ea PO DAILY 09/26/19 [Probiotic] Nystatin [Nyamyc] 30 gm TP BID 09/26/19 Paroxetine HCl [Paxil] 40 mg PO DAILY 09/26/19 Ropinirole HCl 2 mg PO BID 09/26/19 Tiotropium [place] [Spiriva] 18 mcg IH DAILY 09/26/19 calcium carbonate 500 mg (1,250 1 tab PO DAILY tab 01/11/20 mg)-vitamin D3 200 unit tablet omeprazole 20 mg capsule,delayed 40 mg PO DAILY cap 09/03/20 release nitroglycerin 0.4 mg sublingual 0.4 mg SUBLINGUAL PRN PRN #25 tab 10/30/20 tablet Amiodarone HCl 200 mg PO DAILY 12/12/20 Apixaban [Eliquis] 2.5 mg PO BID 12/12/20 Aspirin E.C. [Ecotrin] 81 mg PO DAILY@0800 12/12/20 Atorvastatin Calcium [Lipitor] 80 mg PO QHS 12/12/20 Cefdinir [Omnicef [equiv]] 300 mg PO Q12H 12/12/20 Denosumab [Prolia] 60 mg SC [id number] 12/12/20 Insulin Glargine [Lantus SoloStar 15 units SC BREAKFAST 12/12/20 Pen] Insulin Lispro [Humalog KwikPen] 8 unit SC TIDCM 12/12/20 Insulin Lispro [Humalog KwikPen] See Protocol SC TIDCM 12/12/20 Iron Polysaccharide Complex 150 mg PO DAILY #0 12/12/20 [Ferrex 150] Levothyroxine Sodium [Synthroid] 25 mcg PO DAILY 12/12/20 Metoprolol Tartrate 25 mg PO BID 12/12/20 Suvorexant [Belsomra] 20 mg PO QHS #0 12/12/20 Folic Acid 1 mg PO DAILY 12/28/20 Pramipexole Di-HCl [Mirapex] 1 mg PO DAILY 12/28/20 Umeclidinium [place] Inhaler 1 puff IH DAILY 12/28/20 [Incruse Ellipta Inhaler] Furosemide [Lasix] 40 mg PO DAILY #0 12/31/20 Prednisone [Deltasone] 40 mg PO DAILY 12/31/20 Smz/Tmp Ds [Bactrim Ds] 1 tablet PO DAILY 12/31/20 Allergies ciprofloxacin [From Cipro] Allergy (Verified 12/28/20 06:50) Rash ciprofloxacin HCl [From Cipro] Allergy (Verified 12/28/20 06:50) Rash gabapentin [From Neurontin] Allergy (Verified 12/28/20 06:50) Rash heparin Allergy (Verified 12/28/20 06:50) Low platelets tuberculin, purified protein deriva Adverse Reaction (Verified 12/28/20 06:50) Other Maternal Family History: Family History (Last Reviewed 12/31/20 @ 10:34 by Miranda Coffman NP-C) Mother Arthritis Diabetes Hormone deficiency CVA (cerebral vascular accident) Colon cancer Cancer Sister Bleeding disorder CVA (cerebral vascular accident) Colon cancer Daughter Cancer Seizures Father Diabetes Leukemia Grandmother Diabetes Unknown Asthma Heart disease Hypertension High cholesterol Thyroid disorder Osteoporosis Cancer Tuberculosis History Items: No pertinent history - Social History Lives: [facility] Smoking Status: Unknown if ever smoked Alcohol: None Drugs: None Review of Systems Constitutional: Reports: Weakness, Fatigue. Denies: Chills, Fever, Weight Change Eyes: Denies: Vision Change HEENT: Denies: Difficulty Swallowing, Head Aches, Nasal Congestion, Sinus Congestion, Sinus Drainage, Sore Throat Cardiovascular: Denies: Chest Pain, Palpitations Respiratory: Reports: Shortness of Breath. Denies: Cough, Sputum production, Wheezing Gastrointestinal: Denies: Abdominal Pain, Constipation, Diarrhea, Nausea, Vomiting Genitourinary: Reports: - - indwelling thomas. Denies: Dysuria Musculoskeletal: Denies: Joint Pain, Joint Tenderness Skin: Denies: Rash, Wounds Neurological: Reports: Numbness, Tingling. Denies: Balance problems, Change in Speech, Focal weakness, Tremor Psychiatric: Denies: Anxiety, Depression, Homicidal Ideations, Suicidal Ideations Hematologic/ Lymphatic: Reports: Anemia. Denies: Easy Bruising, Easy Bleeding Physical Exam Subjective: Resting in bed, appears to be sleeping. Awakens to voice. Alert and oriented. States she is feeling much better, moving from bed to chair easily. General: Alert, Oriented x3, Cooperative HEENT: Atraumatic, Normocephalic Oral: Dry Mucosa Neck: Supple, No JVD, Trachea Midline Lungs: Clear to auscultation, Normal air movement, No rhonchi, No wheeze, Diminished Cardiovascular: Regular rate, Regular Rhythm, Normal S1, Normal S2 Abdomen: Bowel Sounds Present, Soft, Non Tender, Obese Extremities: No clubbing, No cyanosis, Capillary Refill Less than 3 Seconds, Diminished Peripheral Pulses, Edema Skin: No rashes, No breakdown Musculoskeletal: No Tenderness to Palpation of Joints or Extremities, Arthritic Changes, Muscle Wasting Lymphatic: No Cervical, Supraclavicular, or Inguinal Adenopathy Neurological: Cranial nerves II-XII grossly intact Psych/Mental Status: Normal Affect, Appropriate Objective: Vital Signs Temp Pulse Resp BP Pulse Ox 97.9 F 58 L 18 141/57 H 91 12/31/20 04:00 12/31/20 09:45 12/31/20 07:53 12/31/20 09:45 12/31/20 07:53 Oxygen Flow Rate (L/min) 4 Oxygen Delivery Method Nasal Cannula Weight: 91.2 kg Body Mass Index (BMI) 38.8 Finger Stick Blood Glucose 112 Intake and Output for Last 24 Hours 12/29/20 12/30/20 12/31/20 23:59 23:59 23:59 Intake Total 1979.2028. 1330 / 1330 110 / 110 Output Total 352 / 392 1240 / 1240 175 / 175 Balance 1627.22 / 1637.22 90 / 90 -65 / -65 Microbiology Past 72 Hours 12/28/20 11:30 Gram Stain - Final Sputum, Induced/[place] Respiratory Culture - Final Serratia marcescens 12/28/20 08:25 Urine Culture - Final Urine Catheter - Catheter Klebsiella pneumoniae sp pneum 12/28/20 07:15 Blood Culture - Preliminary Blood Culture (Wb) - Anticubital Right 12/28/20 07:16 Blood Culture - Preliminary Blood Culture (Wb) - Anticubital Left No growth in 48 hours. 12/28/20 07:15 SARS-CoV-2 Antigen (Rapid) - Final Mucosa - Nose Laboratory Tests Past 24 Hrs 12/30/20 12/31/20 12/31/20 04:25 05:40 05:40 WBC 19.5 H RBC 3.59 L Hgb 9.3 L Hct 32.6 L MCV 90.8 MCH 25.9 L MCHC 28.5 L RDW Std Deviation 68.2 H RDW Coeff of Jeff 21.2 H Plt Count 438 MPV 11.8 Immature Gran % (Auto) 1.300 H Neut % (Auto) 79.6 H Lymph % (Auto) 8.0 L [place] % (Auto) 8.3 Eos % (Auto) 2.6 Baso % (Auto) 0.2 Absolute Neuts (auto) 15.5 H Absolute Lymphs (auto) 1.56 Nucleated RBC % 2.1 Differential Comment SCANNED Diff Path Review Reviewed May foll Polychromasia RARE Anisocytosis 1+ Microcytosis RARE Macrocytosis 1+ Ovalocytes RARE Sodium 140 Potassium 4.2 Chloride 109 H Carbon Dioxide 22.0 Anion Gap 9 BUN 59 H Creatinine 2.03 H Estim Creat Clear Calc 17.46 Est GFR (MDRD) Af Amer 31 L Est GFR (MDRD) Non-Af 25 L BUN/Creatinine Ratio 29.1 H Glucose 128 H Calcium 7.8 L Total Bilirubin 0.80 AST 346 H ALT 939 H Alkaline Phosphatase 137 H Total Protein 5.9 L Albumin 2.3 L Globulin 3.6 Albumin/Globulin Ratio 0.6 L Assessment/Plan All Active Problems (Last Reviewed 12/10/20 @ 11:[address] Brown Vargas MD) Fracture of right great toe (Acute) Cellulitis of right leg (Acute) Debility (Acute) Acute kidney injury (Acute) 75 yr old F with debility, depression, diabetic neuropathy, seen today for palliative care consultation for symptom management of debility and neuropathy. 1. Debility: She has had a few hospital stays with increasing debility, however states she feels she is getting back to her baseline. Not able to ambulate very far. She has multiple comorbidities that contribute. 2. Shortness of breath/chronic respiratory failure: Continues to improve, on baseline 4 L of oxygen. Would defer opioids as her dyspnea seems to be fairly well controlled and would not add at this time secondary to her other comorbidities and risk for aspiration given her debility and weakness. We will assist in management and make adjustments as indicated. 3. CHF/septic shock/CKD stage III/T2DM/PVD/neuropathy/obesity: Complicates overall care, management, recovery, and prognosis. Discussed CODE STATUS, including difference between full code, DNR CC A, and DNR CC. Patient would like to be a full code with intubation, as long as not prolonged. Greater than 50% of F2F spent on education and counseling regarding palliative care services, advanced directives and CODE STATUS, plan of care moving forward, and education on comorbidities. Focus of palliative care to prevent rehospitalization and for symptom management. Thank you for the opportunity to participate in this patient's care, please do not hesitate to contact [facility] with any further questions or concerns. Palliative direct line is [phone]. The patient is alert and oriented x3, she is agreeable to palliative care and states her daughter Tsering would likely be okay with that as well. We will touch base with her. RN follow up approximately 3 days after discharge to home and will discuss palliative services further at that time.
[2020-12-31 11:39] LABS: Pathologist Review Reviewed
[2020-12-31] MEDS: Insulin Lispro 100 UNIT/ML INSULN.PEN SC (11:58)
[2020-12-31 12:05] LABS: Bedside Glucose 172 mg/dL (70-110)
--- NOTE | 2020-12-31 13:32 | CASEMGMT ---
RAFITA received a call from Jyothi with TCU. Dr Juárez with [employer] is requesting a peer to peer as he does not feel patient is medically ready due to labs. Phone number to call is [phone] and pending reference number is [id number]. RAFITA spoke with physician and he was willing to do the peer to peer. RAFITA spoke with Mallorie and gave her Dr Blunt's information. RAFITA notified Dr Blunt that he will be getting a call from Dr Juárez. Marlena POE TYPING POOL SUPERVISOR
--- NOTE | 2020-12-31 13:57 | CASEMGMT ---
Physician did peer to peer and patient is approved to go to TCU. SW spoke with Jyothi and physician can send patient over. SW spoke with patient and let her know insurance approved her to return to TCU. RN was also made aware as well as charge coordinator. SW will call patient's daughter and notify her as well. Plan: d/c to [facility] TCU under skilled level of care. Marlena POE MSW
--- NOTE | 2020-12-31 14:45 | PCM.TXEXTCAR ---
- Diet 12/29/20 09:32 Diet: Cardiac: Calorie-Controlled Food consistency:: Easy to Chew Liquid Consistency:: Regular/Thin Is pt able to select menu?: No How many daily calories?: 1600 calorie - Routine Orders/Code Status O2 Liters per Minute: 4 Keep PO Greater than or Equal to (%): 90 Routine Lab Work: CBC, BMP - Wound(s) Right Great Toe Wound Type: missing toe nail - Therapies Physical Therapy: Eval and Treat Occupational Therapy: Eval and Treat - Allergies/Procedures Done in Hospital Allergies/Adverse Reactions: Allergies ciprofloxacin [From Cipro] Allergy (Verified 12/28/20 06:50) Rash ciprofloxacin HCl [From Cipro] Allergy (Verified 12/28/20 06:50) Rash gabapentin [From Neurontin] Allergy (Verified 12/28/20 06:50) Rash heparin Allergy (Verified 12/28/20 06:50) Low platelets tuberculin, purified protein deriva Adverse Reaction (Verified 12/28/20 06:50) Other - Type of Care/Length of Stay Estimated LOS: Convalescent Care Less Than 30 days Type of Care Needed: Skilled Rehab Potential: Fair Prognosis: Fair - Additional Orders/Day of Discharge Day of Discharge: 12/31/20 - Dietary and Speech Recommendations Dietitian Recommendations/Changes: Will increase to 1600 calories/day; otherwise continue cardiac, consistent CHO diet- easy to chew consistency as indicated. ONS if PO at meals fails. - Follow Up Care Primary Care Physician: Yesenia Leon HIGHWAY MAINTENANCE TECHNICIAN, HIGHWAY MAINTENANCE TECHNICIAN-C [Primary Care Provider] - Within 2 Weeks Please Follow Up With: Jeevan Becerra MD When: 2-4 weeks Please Follow Up With: Tom June MD When: 01/05/2021
--- NOTE | 2020-12-31 14:49 | PCM.DC.SUM ---
Discharge Date and Diagnosis - Problem List Patient Problems: Active and Suspected Problems (Last Reviewed 12/10/20 @ 11:[address] Brown Vargas MD) Fracture of right great toe (Acute) Cellulitis of right leg (Acute) Debility (Acute) Acute kidney injury (Acute) Date of Admission: 12/31/20 Date of Discharge: 12/31/20 - Primary Discharge Diagnosis Acute Problems: Active Problems (Last Reviewed 12/10/20 @ 11:[address] Brown Vargas MD) Fracture of right great toe (Acute) Cellulitis of right leg (Acute) Debility (Acute) Acute kidney injury (Acute) - Secondary Discharge Diagnosis Chronic Problems: Chronic Problems (Last Reviewed 12/10/20 @ 11:[address] Brown Vargas MD) Other specified peripheral vascular diseases (Chronic) Non-pressure chronic ulcer of other part of left foot with fat layer exposed (Chronic) Chronic ulcer of great toe of right foot with fat layer exposed (Chronic) Depression (Chronic) Peripheral arterial occlusive disease (Chronic) Diabetic polyneuropathy (Chronic) Atrial fibrillation (Chronic) Hypertension (Chronic) Hypokalemia (Chronic) Osteoporosis (Chronic) Gastroesophageal reflux disease (Chronic) Insomnia (Chronic) Obesity (Chronic) Acute on chronic diastolic CHF (congestive heart failure) (Chronic) COPD exacerbation (Chronic) Diabetes (Chronic) Toxic multinodular goiter (Chronic) Polyneuropathy due to type 2 diabetes mellitus (Chronic) COPD (chronic obstructive pulmonary disease) (Chronic) Acute on chronic respiratory failure with hypoxia (Chronic) Paroxysmal atrial fibrillation (Chronic) Anemia (Chronic) Non-rheumatic aortic stenosis (Chronic) H/O aortic valve replacement (Chronic 12/03/16) TAVR: 23 mm Guillaume-Sapiens S3 valve 12/03/2016 Chronic diastolic heart failure (Chronic) Left carotid artery stenosis (Chronic) Right bundle branch block (RBBB) (Chronic) Hyperlipidemia (Chronic) Essential (primary) hypertension (Chronic) Hospital Course and Treatment Imaging Results: Clinical Impression(s) from Imaging Studies Brain CT 12/28/20 06:54 IMPRESSION: Chronic involutional changes of the brain. Electronically Signed: Ramón Tomlinson MD at 9:51 EDT Tel , Service support , Chest X-Ray 12/28/20 07:27 IMPRESSION: 1. Interval placement of endotracheal tube with the tip approximately 3 cm above the magnus. 2. Suspect left hilar mass or lymphadenopathy correlation with CT the chest with contrast is recommended. 3. Cardiomegaly. Electronically Signed: Ramón Tomlinson MD at 8:48 EDT Tel , Service support , KUB X-Ray 12/28/20 07:28 IMPRESSION: Nasogastric tube with the tip likely in the body the stomach. Electronically Signed: Ramón Tomlinson MD at 8:47 EDT Tel , Service support , Operations: None Procedures: Intubation Summary of Care Provided: []1. acute hypoxic respiratory failure improving 2/2 AECOPD and pneumonia extubated 3/15 CCM following on methypred and BDs change to prednisone burst. 2. septic shock on pip/tazo UA unremarkable, so doubt UTI likely 2/2 pneumonia 3. gram negative pneumonia pip/tazo follow up cultures. 4. transaminitis POA, unclear etiology follow up labs if still elevated, check US 5. hyperkalemia back up will give kayexalate lisinopril dc'd 6. MARILEE cr 1.8 to 2.5 lisinopril dc'd monitor 7. chronic conditions: afib, HFpEF, HTN, GERD: stable 8. DM2: uncontrolled 9. leukocytosis improving exacerbated by steroids 10. debility: to SNF Patient Problems: Active and Suspected Problems (Last Reviewed 12/10/20 @ 11:[address] Brown Vargas MD) Fracture of right great toe (Acute) Cellulitis of right leg (Acute) Debility (Acute) Acute kidney injury (Acute) - Physical Exam Vitals/I&O's: Vital Signs Temp Pulse Resp BP Pulse Ox 36.8 C 62 19 H 141/57 H 94 12/31/20 10:00 12/31/20 14:33 12/31/20 12:14 12/31/20 10:00 12/31/20 10:00 Oxygen Flow Rate (L/min) 4 Oxygen Delivery Method Room Air Weight: 91.2 kg Body Mass Index (BMI) 38.8 Finger Stick Blood Glucose 112 Intake and Output for Last 24 Hours 12/29/20 12/30/20 12/31/20 23:59 23:59 23:59 Intake Total 1979. / 2028. 1330 / 1330 440 / 440 Output Total 352 / 392 1240 / 1240 575 / 575 Balance 1627.22 / 1637.22 90 / 90 -135 / -135 General: Alert, No apparent distress HEENT: Atraumatic, Normocephalic Neck: No Nodes, Thyroid Normal Size and Texture Lungs: Clear to auscultation, Normal air movement, No rhonchi, No wheeze Cardiovascular: Regular rate, Regular Rhythm, Normal S1, Normal S2 Abdomen: Bowel Sounds Present, Soft, Non Tender, Non-Distended Extremities: No edema, No Calf Tenderness Skin: No rashes, No breakdown Microbiology Past 72 Hours 12/28/20 07:15 Blood Culture (Wb) - Anticubital Right Blood Culture - Preliminary Gram positive julieta 12/28/20 11:30 Sputum, Induced/Lukens Gram Stain - Final 12/28/20 11:30 Sputum, Induced/Lukens Respiratory Culture - Final Serratia marcescens 12/28/20 08:25 Urine Catheter - Catheter Urine Culture - Final Klebsiella pneumoniae sp pneum 12/28/20 07:16 Blood Culture (Wb) - Anticubital Left Blood Culture - Preliminary No growth in 48 hours. Laboratory Results 12/30/20 04:25: Diff Path Review Reviewed 12/30/20 16:26: POC Glucose 178 H 12/30/20 21:57: POC Glucose 216 H 12/31/20 05:40: WBC 19.5 H, RBC 3.59 L, Hgb 9.3 L, Hct 32.6 L, MCV 90.8, MCH 25.9 L, MCHC 28.5 L, RDW Std Deviation 68.2 H, RDW Coeff of Jeff 21.2 H, Plt Count 438, MPV 11.8, Immature Gran % (Auto) 1.300 H, Neut % (Auto) 79.6 H, Lymph % (Auto) 8.0 L, Coos % (Auto) 8.3, Eos % (Auto) 2.6, Baso % (Auto) 0.2, Absolute Neuts (auto) 15.5 H, Absolute Lymphs (auto) 1.56, Nucleated RBC % 2.1, Differential Comment SCANNED, Diff Path Review Reviewed, Polychromasia RARE, Anisocytosis 1+, Microcytosis RARE, Macrocytosis 1+, Ovalocytes RARE 12/31/20 05:40: Sodium 140, Potassium 4.2, Chloride 109 H, Carbon Dioxide 22.0, Anion Gap 9, BUN 59 H, Creatinine 2.03 H, Estim Creat Clear Calc 17.46, Est GFR (MDRD) Af Amer 31 L, Est GFR (MDRD) Non-Af 25 L, BUN/Creatinine Ratio 29.1 H, Glucose 128 H, Calcium 7.8 L, Total Bilirubin 0.80, AST 346 H, ALT 939 H, Alkaline Phosphatase 137 H, Total Protein 5.9 L, Albumin 2.3 L, Globulin 3.6, Albumin/Globulin Ratio 0.6 L 12/31/20 06:39: POC Glucose 125 H 12/31/20 11:57: POC Glucose 172 H Current Medications Albuterol Sulfate (Albuterol 2.5 Mg/3 Ml Vial.Neb.) 2.5 mg INHALATION Q2H PRN PRN PRN Reason: SOB &/OR WHEEZING Albuterol/Ipratropium (Ipratropium/Albuterol Sulfate 3 Ml Ampul.Neb) 3 ml INHALATION Q6H.RT [facility] Last Admin: 12/31/20 12:13 Dose: 3 ml Documented by: Amlodipine Besylate (Amlodipine 5 Mg Tablet) 5 mg PO DAILY [facility] Last Admin: 12/31/20 09:45 Dose: 5 mg Documented by: Apixaban (Apixaban 2.5 Mg Tablet) 2.5 mg PO BID [facility] Last Admin: 12/31/20 09:45 Dose: 2.5 mg Documented by: Aspirin (Aspirin E.C. 81 Mg Tablet) 81 mg PO DAILY@0800 [facility] Last Admin: 12/31/20 08:40 Dose: 81 mg Documented by: Atorvastatin Calcium (Atorvastatin Calcium 80 Mg Tablet) 80 mg PO QHS [facility] Last Admin: 12/30/20 21:59 Dose: 80 mg Documented by: Cyanocobalamin (Cyanocobalamin 500 Mcg Tablet) 1,000 mcg PO DAILY [facility] Last Admin: 12/31/20 09:45 Dose: 1,000 mcg Documented by: Fluticasone Propionate (Fluticasone 0.05% 1 [place] Nasal.Sry) 2 spray NASAL DAILY [facility] Last Admin: 12/31/20 09:46 Dose: 2 spray Documented by: Sodium Chloride () 250 mls @ 15 mls/hr IV .[id number] PRN PRN Reason: Saline Flush Last Infusion: 12/29/20 23:04 Dose: Infused Documented by: Sodium Chloride () 250 mls @ 15 mls/hr IV .[id number] PRN PRN Reason: Additional IVPB Infusion Piperacillin Sod/Tazobactam (Sod 3.375 gm/ Sodium Chloride) 50 mls @ 12.5 mls/hr IV BID [facility] Last Infusion: 12/31/20 14:00 Dose: Infused Documented by: Insulin Human Lispro (Insulin Lispro 100 Unit/Ml Insuln.Pen) 0 unit SC ACHS [facility]; Protocol Last Admin: 12/31/20 11:58 Dose: 3 u Documented by: Levothyroxine Sodium (Levothyroxine 25 Mcg Tablet) 25 mcg PO DAILY@0600 [facility] Last Admin: 12/31/20 06:46 Dose: 25 mcg Documented by: Methylprednisolone (Methylprednisolone 40 Mg/Ml Vial) 40 mg IV DAILY [facility] Last Admin: 12/31/20 09:46 Dose: 40 mg Documented by: Metoprolol Tartrate (Metoprolol Tartrate 25 Mg Tablet) 25 mg PO BID [facility] Last Admin: 12/31/20 09:45 Dose: 25 mg Documented by: Ondansetron HCl (Ondansetron 4 Mg/2 Ml Vial) 4 mg IV Q8H PRN PRN PRN Reason: NAUSEA/VOMITING Oxycodone HCl (Oxycodone 5 Mg Tablet) 5 mg PO TID PRN PRN PRN Reason: PAIN 1-10 Pantoprazole Sodium (Pantoprazole Sodium 40 Mg Tablet) 40 mg PO DAILY [facility] Last Admin: 12/31/20 09:45 Dose: 40 mg Documented by: Paroxetine HCl (Paroxetine 20 Mg Tablet) 40 mg PO DAILY [facility] Last Admin: 12/31/20 09:46 Dose: 40 mg Documented by: Sodium Chloride (0.9% Saline Lock 10 Ml Syringe) 10 - 40 ml IV UD PRN PRN Reason: SALINE FLUSH Last Admin: 12/31/20 09:49 Dose: 10 ml Documented by: Discharge Diet: Low fat/ Low Cholesterol, 1800 Calorie Control Diet Home Medications: Medications to take at Discharge Albuterol Aerosols [Ventolin Aerosols] 2.5 mg INHALATION Q4H PRN PRN 09/26/19 Albuterol IH (ProAir) [Proair Hfa] 2 puff INHALATION Q6H PRN PRN 09/26/19 Cyanocobalamin (Vitamin B-12) [Vitamin B-12] 1,000 mcg PO DAILY 09/26/19 Fluticasone 0.05% [Flonase Nasal [place]] 2 spray NASAL DAILY 09/26/19 Fluticasone/Salmeterol [Advair Hfa 115-21 Mcg Inhaler] 2 puff INHALATION BID 09/26/19 L.acidoph,Paracasei, B.lactis [Probiotic] 1 ea PO DAILY 09/26/19 Nystatin [Nyamyc] 30 gm TP BID 09/26/19 Paroxetine HCl [Paxil] 40 mg PO DAILY 09/26/19 Ropinirole HCl 2 mg PO BID 09/26/19 Tiotropium [place] [Spiriva] 18 mcg IH DAILY 09/26/19 calcium carbonate 500 mg (1,250 mg)-vitamin D3 200 unit tablet 1 tab PO DAILY tab 01/11/20 omeprazole 20 mg capsule,delayed release 40 mg PO DAILY cap 09/03/20 nitroglycerin 0.4 mg sublingual tablet 0.4 mg SUBLINGUAL PRN PRN #25 tab 10/30/20 Amiodarone HCl 200 mg PO DAILY 12/12/20 Apixaban [Eliquis] 2.5 mg PO BID 12/12/20 Aspirin E.C. [Ecotrin] 81 mg PO DAILY@0800 12/12/20 Atorvastatin Calcium [Lipitor] 80 mg PO QHS 12/12/20 Cefdinir [Omnicef [equiv]] 300 mg PO Q12H 12/12/20 Denosumab [Prolia] 60 mg SC [id number] 12/12/20 Insulin Glargine [Lantus SoloStar Pen] 15 units SC BREAKFAST 12/12/20 Insulin Lispro [Humalog KwikPen] 8 unit SC TIDCM 12/12/20 Insulin Lispro [Humalog KwikPen] See Protocol SC TIDCM 12/12/20 Iron Polysaccharide Complex [Ferrex 150] 150 mg PO DAILY #0 12/12/20 Levothyroxine Sodium [Synthroid] 25 mcg PO DAILY 12/12/20 Metoprolol Tartrate 25 mg PO BID 12/12/20 Suvorexant [Belsomra] 20 mg PO QHS #0 12/12/20 Folic Acid 1 mg PO DAILY 12/28/20 Pramipexole Di-HCl [Mirapex] 1 mg PO DAILY 12/28/20 Umeclidinium [place] Inhaler [Incruse Ellipta Inhaler] 1 puff IH DAILY 12/28/20 Furosemide [Lasix] 40 mg PO DAILY #0 12/31/20 Prednisone [Deltasone] 40 mg PO DAILY #5 tablet 12/31/20 Smz/Tmp Ds [Bactrim Ds] 1 tablet PO DAILY #5 tablet 12/31/20 Following Prescriptions Were Given to Patient: Smz/Tmp Ds [Bactrim Ds] 1 tablet PO DAILY #5 tablet Prednisone [Deltasone] 40 mg PO DAILY #5 tablet Primary Care Physician: Yesenia Leon [employer] SALE REPRESENTATIVE, FUN[employer] SALE REPRESENTATIVE-C [Primary Care Provider] - Within 2 Weeks Please Follow Up With: Jeevan Becerra MD When: 2-4 weeks Please Follow Up With: Tom June MD When: 01/05/2021 Disposition: [facility] facility Minutes spent on discharge:: 35 Patient Condition:: Fair Medical Necessity - Tobacco Use Smoking Status: Unknown if ever smoked Meaningful Use Info Meaningful Use Diagnoses (Choose all that apply): None applicable Inpatient E&M: 10097 [facility]
--- NOTE | 2020-12-31 14:52 | NURSING ---
report called to [facility] for dc with no questions voiced.
== END 2020-12-31 16:20 | disposition skilled nursing facility (03) | DRG 871 ==
LOC: ED 08:20 → ICU 10:27 → PCU 12-30 11:28
PROVIDERS: Internal Medicine; Nurse Practitioner Family; Admitting Provider Student in an Organized Health Care Education/Training Program; Emergency Provider Emergency Medicine; PCP Nurse Practitioner
DX: A41.9 Sepsis, unspecified organism (principal); J96.21 Acute and chronic respiratory failure with hypoxia; R65.21 Severe sepsis with septic shock; J15.6 Pneumonia due to other Gram-negative bacteria; I50.33 Acute on chronic diastolic (congestive) heart failure; L03.115 Cellulitis of right lower limb; N39.0 Urinary tract infection, site not specified; I13.0 Hypertensive heart and chronic kidney disease with heart failure and stage 1 through stage 4 chronic kidney disease, or unspecified chronic kidney disease; I48.20 Chronic atrial fibrillation, unspecified; I50.32 Chronic diastolic (congestive) heart failure; E87.2 Acidosis; N17.9 Acute kidney failure, unspecified; J44.1 Chronic obstructive pulmonary disease with (acute) exacerbation; L97.522 Non-pressure chronic ulcer of other part of left foot with fat layer exposed; F32.9 Major depressive disorder, single episode, unspecified; E11.42 Type 2 diabetes mellitus with diabetic polyneuropathy; K21.9 Gastro-esophageal reflux disease without esophagitis; I45.10 Unspecified right bundle-branch block; E78.5 Hyperlipidemia, unspecified; N18.30 Chronic kidney disease, stage 3 unspecified; F41.9 Anxiety disorder, unspecified; E66.9 Obesity, unspecified; E87.5 Hyperkalemia; L97.512 Non-pressure chronic ulcer of other part of right foot with fat layer exposed; M81.0 Age-related osteoporosis without current pathological fracture; E11.22 Type 2 diabetes mellitus with diabetic chronic kidney disease; E11.51 Type 2 diabetes mellitus with diabetic peripheral angiopathy without gangrene; E11.65 Type 2 diabetes mellitus with hyperglycemia; Z79.4 Long term (current) use of insulin; Z79.01 Long term (current) use of anticoagulants; Z88.8 Allergy status to other drugs, medicaments and biological substances; Z82.62 Family history of osteoporosis; Z68.38 Body mass index [BMI] 38.0-38.9, adult; E05.20 Thyrotoxicosis with toxic multinodular goiter without thyrotoxic crisis or storm; I65.22 Occlusion and stenosis of left carotid artery; Z66 Do not resuscitate; S92.404 Nondisplaced unspecified fracture of right great toe; J44.9 Chronic obstructive pulmonary disease, unspecified; D64.9 Anemia, unspecified; E11.621 Type 2 diabetes mellitus with foot ulcer; T88.4XXA Failed or difficult intubation, initial encounter; Z96.641 Presence of right artificial hip joint; G83.9 Paralytic syndrome, unspecified; R74.01 Elevation of levels of liver transaminase levels; B96.1 Klebsiella pneumoniae [K. pneumoniae] as the cause of diseases classified elsewhere; Z79.51 Long term (current) use of inhaled steroids; Z79.82 Long term (current) use of aspirin; Z79.890 Hormone replacement therapy; Z80.0 Family history of malignant neoplasm of digestive organs; Z80.6 Family history of leukemia; Z82.3 Family history of stroke; Z82.49 Family history of ischemic heart disease and other diseases of the circulatory system; Z82.5 Family history of asthma and other chronic lower respiratory diseases; Z83.2 Family history of diseases of the blood and blood-forming organs and certain disorders involving the immune mechanism; Z83.3 Family history of diabetes mellitus; Z85.820 Personal history of malignant melanoma of skin; Z90.710 Acquired absence of both cervix and uterus; Z95.2 Presence of prosthetic heart valve
CPT/HCPCS: 31500; 31720; 36415; 36600; 51702; 70450; 71045; 74018; 80048; 80053; 80076; 81001; 82803; 82962; 83605; 83880; 84484; 85025; 85610; 85730; 87040; 87070; 87077; 87086; 87088; 87186; 87205; 87426; 93005; 94002; 94003; 94640; 94660; 97162; 97166; 97530; 97803; 99251; 99285; J7030; J7040; J7050; J7120; A4216; G0463; J0330; J3010

== ENCOUNTER 2020-12-31 16:30 | Inpatient (IN) | payer MEDICARE, MEDICAID, SELFPAY ==
[2020-12-28 11:18] VITALS: BMI 38.8
[2020-12-31 16:33] VITALS: BP 155/83; PULSE 68; RESP 22; TEMP 36.7; O2SAT 88; BMI 39.3
[2020-12-31 17:15] LABS: Bedside Glucose 346 mg/dL (70-110)
[2020-12-31] MEDS: Insulin Lispro 100 UNIT/ML INSULN.PEN 10 UNIT SC (18:05)
[2020-12-31 18:07] VITALS: PULSE 68
[2020-12-31] MEDS: Metoprolol Tartrate 25 MG Tablet PO (18:07)
[2020-12-31] MEDS: Fluticasone/Salmeterol 232-14 Inhaler 1 PUFF INHALATION (18:07)
[2020-12-31] MEDS: APIXABAN 2.5 MG TABLET PO (18:08)
[2020-12-31] MEDS: Pramipexole Di-HCl 1 MG Tablet PO (18:09)
[2020-12-31] MEDS: Nystatin Powder 15gm Bottle 1 APPLIC TOPICAL (18:10)
--- NOTE | 2020-12-31 20:21 | HP.PCM_ITS ---
Problem List (1) Acute respiratory failure with hypoxia Status: Acute (2) Septic shock Status: Acute (3) Pneumonia Status: Acute (4) Hyperkalemia Status: Acute (5) Elevated liver enzymes Status: Acute (6) Fracture of right great toe Status: Chronic Qualifiers: (7) Debility Status: Acute (8) Acute kidney injury Status: Acute (9) Depression Status: Chronic (10) Peripheral arterial occlusive disease Status: Chronic (11) Diabetic polyneuropathy Status: Chronic (12) Atrial fibrillation Status: Chronic (13) Hypertension Status: Chronic (14) Osteoporosis Status: Chronic (15) Gastroesophageal reflux disease Status: Chronic (16) Diabetes Status: Chronic (17) COPD (chronic obstructive pulmonary disease) Status: Chronic (18) Chronic diastolic heart failure Status: Chronic (19) Hyperlipidemia Status: Chronic Qualifiers: History of Present Illness Date of Admission: 12/31/20 Chief Complaint: Here for rehabilitation, strengthening, prior to discharge home alone. 12/28/2020 The patient is a 75 year old Female with below past medical history presented to [facility] Emergency Department for TCU with hypoxia, decreased level of consciousness. Stridor, concern with angioedema. Solu-Medrol, Benadryl, Pepcid given IV. Patient intubated due to hypoxia, decreased level of consciousness. No angioedema noted during intubation. 12/28/[address] chest to evaluate left hilar mass. Lactic acid 7.3. Vancomycin, Zosyn IV, IV Fluids for septic shock. Liver enzymes elevated, image gallbladder. Kayexalate per rectum for hyperkalemia. 12/29/2020 Extubated. Acute respiratory failure with hypoxia secondary to acute exacerbation of COPD, pneumonia. on Bronchodilators, oral prednisone taper. Septic shock secondary to pneumonia treated with Zosyn IV. Elevated liver enzymes of unknown etiology. Lisinopril stopped due to hyperkalemia, acute kidney injury. 12/31/2020 Admit to TCU with debility, here for rehabilitation, strengthening, prior to discharge home alone. Past Medical History Past Medical History (Chronic Problems): Chronic Problems (Last Reviewed 12/10/20 @ 11:[address] Brown Vargas MD) Other specified peripheral vascular diseases (Chronic) Non-pressure chronic ulcer of other part of left foot with fat layer exposed (Chronic) Chronic ulcer of great toe of right foot with fat layer exposed (Chronic) Fracture of right great toe (Chronic) Depression (Chronic) Peripheral arterial occlusive disease (Chronic) Diabetic polyneuropathy (Chronic) Atrial fibrillation (Chronic) Hypertension (Chronic) Hypokalemia (Chronic) Osteoporosis (Chronic) Gastroesophageal reflux disease (Chronic) Insomnia (Chronic) Obesity (Chronic) Acute on chronic diastolic CHF (congestive heart failure) (Chronic) COPD exacerbation (Chronic) Diabetes (Chronic) Toxic multinodular goiter (Chronic) Polyneuropathy due to type 2 diabetes mellitus (Chronic) COPD (chronic obstructive pulmonary disease) (Chronic) Acute on chronic respiratory failure with hypoxia (Chronic) Paroxysmal atrial fibrillation (Chronic) Anemia (Chronic) Non-rheumatic aortic stenosis (Chronic) H/O aortic valve replacement (Chronic 12/03/16) TAVR: 23 mm Guillaume-Sapiens S3 valve 12/03/2016 Chronic diastolic heart failure (Chronic) Left carotid artery stenosis (Chronic) Right bundle branch block (RBBB) (Chronic) Hyperlipidemia (Chronic) Essential (primary) hypertension (Chronic) Medical History: Medical History (Last Reviewed 12/10/20 @ 11:[address] Brown Vargas MD) Paroxysmal atrial fibrillation (Chronic) I48.0 Anemia (Chronic) D64.9 Non-rheumatic aortic stenosis (Chronic) I35.0 Chronic diastolic heart failure (Chronic) I50.32 Left carotid artery stenosis (Chronic) I65.22 Right bundle branch block (RBBB) (Chronic) I45.10 Hyperlipidemia (Chronic) E78.5 Essential (primary) hypertension (Chronic) I10 Type 2 diabetes mellitus E11.9 Anxiety F41.9 Arthritis M19.90 Asthma J45.909 Breast lump N63.0 COPD (chronic obstructive pulmonary disease) J44.9 Carotid artery stenosis I65.29 Carpal tunnel syndrome G56.00 Depression F32.9 Fibromyalgia M79.7 GERD (gastroesophageal reflux disease) K21.9 H/O transfusion of whole blood Z92.89 Hypothyroidism E03.9 IBS (irritable bowel syndrome) K58.9 MTHFR mutation E72.12 Obesity E66.9 Osteoporosis M81.0 RLS (restless legs syndrome) G25.81 Skin cancer C44.90 Tuberculosis A15.9 Secondary pulmonary arterial hypertension I27.21 Thrombocytopenia D69.6 Secondary to sepsis versus heparin-induced thrombocytopenia Non-STEMI (non-ST elevated myocardial infarction) (Inactive) Onset Date: 09/27/19 I21.4 Seasonal allergies J30.2 Allergies ciprofloxacin [From Cipro] Allergy (Verified 12/28/20 06:50) Rash ciprofloxacin HCl [From Cipro] Allergy (Verified 12/28/20 06:50) Rash gabapentin [From Neurontin] Allergy (Verified 12/28/20 06:50) Rash heparin Allergy (Verified 12/28/20 06:50) Low platelets tuberculin, purified protein deriva Adverse Reaction (Verified 12/28/20 06:50) Other Home Medications: Ambulatory Orders Medication Instructions Recorded Albuterol Aerosols [Ventolin 2.5 mg INHALATION Q4H PRN PRN 09/26/19 Aerosols] Albuterol IH (ProAir) [Proair Hfa] 2 puff INHALATION Q6H PRN PRN 09/26/19 Cyanocobalamin (Vitamin B-12) 1,000 mcg PO DAILY 09/26/19 [Vitamin B-12] Fluticasone 0.05% [Flonase Nasal 2 spray NASAL DAILY 09/26/19 [place]] Fluticasone/Salmeterol [Advair Hfa 2 puff INHALATION BID 09/26/19 115-21 Mcg Inhaler] L.acidoph,Paracasei, B.lactis 1 ea PO DAILY 09/26/19 [Probiotic] Nystatin [Nyamyc] 30 gm TP BID 09/26/19 Paroxetine HCl [Paxil] 40 mg PO DAILY 09/26/19 Ropinirole HCl 2 mg PO BID 09/26/19 Tiotropium [place] [Spiriva] 18 mcg IH DAILY 09/26/19 calcium carbonate 500 mg (1,250 1 tab PO DAILY tab 01/11/20 mg)-vitamin D3 200 unit tablet omeprazole 20 mg capsule,delayed 40 mg PO DAILY cap 09/03/20 release nitroglycerin 0.4 mg sublingual 0.4 mg SUBLINGUAL PRN PRN #25 tab 10/30/20 tablet Amiodarone HCl 200 mg PO DAILY 12/12/20 Apixaban [Eliquis] 2.5 mg PO BID 12/12/20 Aspirin E.C. [Ecotrin] 81 mg PO DAILY@0800 12/12/20 Atorvastatin Calcium [Lipitor] 80 mg PO QHS 12/12/20 Cefdinir [Omnicef [equiv]] 300 mg PO Q12H 12/12/20 Denosumab [Prolia] 60 mg SC [id number] 12/12/20 Insulin Glargine [Lantus SoloStar 15 units SC BREAKFAST 12/12/20 Pen] Insulin Lispro [Humalog KwikPen] 8 unit SC TIDCM 12/12/20 Insulin Lispro [Humalog KwikPen] See Protocol SC TIDCM 12/12/20 Iron Polysaccharide Complex 150 mg PO DAILY #0 12/12/20 [Ferrex 150] Levothyroxine Sodium [Synthroid] 25 mcg PO DAILY 12/12/20 Metoprolol Tartrate 25 mg PO BID 12/12/20 Suvorexant [Belsomra] 20 mg PO QHS #0 12/12/20 Folic Acid 1 mg PO DAILY 12/28/20 Pramipexole Di-HCl [Mirapex] 1 mg PO DAILY 12/28/20 Umeclidinium [place] Inhaler 1 puff IH DAILY 12/28/20 [Incruse Ellipta Inhaler] Furosemide [Lasix] 40 mg PO DAILY #0 12/31/20 Prednisone [Deltasone] 40 mg PO DAILY 12/31/20 Smz/Tmp Ds [Bactrim Ds] 1 tablet PO DAILY 12/31/20 Surgical History: Surgical History (Last Reviewed 12/10/20 @ 11:[address] Brown Vargas MD) H/O aortic valve replacement (Chronic) Onset Date: 12/03/16 Z95.2 TAVR: 23 mm Guillaume-Sapiens S3 valve 12/03/2016 H/O: hysterectomy Z98.890, Z90.710 H/O laminectomy Z98.890 History of left heart catheterization Onset Date: 09/03/16 Z98.890 History of tympanoplasty Z98.890 Hx of melanoma excision Z98.890, Z85.820 1997 Hx of rotator cuff surgery Z98.890 JAIME S/P hip replacement Z96.649 S/p bilateral carpal tunnel release Z98.890 Surgical History: appendectomy - Right hip replacement, back surgery, laminectomy, carpal tunnel surgery, right leg hematoma extraction, hysterectomy, rotator cuff repair, total hip arthroplasty - Right., - - Aortic valve replacement, TAVR, Laminectomy, Tympanostomy, Melanoma excision, Right carpal tunnel release. 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 Lives: Alone Smoking Status: Former smoker Tobacco Use: Non-smoker Alcohol: None Drugs: None - *Family History Maternal Family History: Family History (Last Reviewed 12/31/20 @ 10:34 by HERNESTO CoombsC) Mother Arthritis Diabetes Hormone deficiency CVA (cerebral vascular accident) Colon cancer Cancer Sister Bleeding disorder CVA (cerebral vascular accident) Colon cancer Daughter Cancer Seizures Father Diabetes Leukemia Grandmother Diabetes Unknown Asthma Heart disease Hypertension High cholesterol Thyroid disorder Osteoporosis Cancer Tuberculosis History Items: No pertinent history Review of Systems Constitutional: Denies: Chills, Fever, Weight Change HEENT: Denies: Head Aches, Sinus Congestion, Sinus Drainage Cardiovascular: Denies: Chest Pain, Palpitations Respiratory: Denies: Cough, Shortness of breath at rest, Sputum production Gastrointestinal: Denies: Abdominal Pain, Nausea, Vomiting Genitourinary: Denies: Dysuria Musculoskeletal: Denies: Joint Pain, Joint Tenderness Skin: Denies: Rash, Wounds Neurological: Denies: Numbness, Tingling, Focal weakness Psychiatric: Denies: Anxiety, Depression, Homicidal Ideations, Suicidal Ideations Hematologic/ Lymphatic: Denies: Easy Bruising, Easy Bleeding VTE Information - Inpt Only VTE Present on Admission: No VTE Mechan Device Prophylaxis: Knee High JENNIFER Hose VTE Pharm Prophylaxis ordered?: No Reason prophylaxis not ordered:: Treatment Not Indicated Patient Problems: Active and Suspected Problems (Last Reviewed 12/10/20 @ 11:[address] Brown Vargas MD) Acute respiratory failure with hypoxia (Acute) Septic shock (Acute) Pneumonia (Acute) Hyperkalemia (Acute) Elevated liver enzymes (Acute) Debility (Acute) Acute kidney injury (Acute) - Physical Exam Vitals/I&O's: Vital Signs Temp Pulse Resp BP Pulse Ox 98.1 F 68 22 H 155/83 H 88 12/31/20 16:33 12/31/20 18:07 12/31/20 16:33 12/31/20 16:33 12/31/20 16:33 Oxygen Flow Rate (L/min) 5 Oxygen Delivery Method Nasal Cannula Weight: 91.3 kg Body Mass Index (BMI) 39.3 Finger Stick Blood Glucose 112 General: Alert, Oriented x3, Cooperative HEENT: Atraumatic, PERRLA, EOMI, Normocephalic Neck: Supple, No JVD, Negative Carotid Bruits Lungs: Clear to auscultation, Normal air movement Cardiovascular: Regular rate, No murmurs Abdomen: Bowel Sounds Present, Soft, Non Tender Extremities: No edema, Capillary Refill Less than 3 Seconds Skin: No rashes, No breakdown Musculoskeletal: No Tenderness to Palpation of Joints or Extremities Neurological: Cranial nerves II-XII grossly intact Psych/Mental Status: Normal Affect, Appropriate Laboratory Results 12/31/20 17:08: POC Glucose 346 H Current Medications Albuterol Sulfate (Albuterol 2.5 Mg/3 Ml Vial.Neb.) 2.5 mg INHALATION Q4H PRN PRN PRN Reason: SOB &/OR WHEEZING Amiodarone HCl (Amiodarone 200 Mg Tablet) 200 mg PO DAILY [facility] Apixaban (Apixaban 2.5 Mg Tablet) 2.5 mg PO BID [facility] Last Admin: 12/31/20 18:08 Dose: 2.5 mg Documented by: Aspirin (Aspirin E.C. 81 Mg Tablet) 81 mg PO DAILY@0800 [facility] Atorvastatin Calcium (Atorvastatin Calcium 80 Mg Tablet) 80 mg PO QHS [facility] Calcium/Vitamin D (Calcium Carb/Vitamin D 1 Tablet Tablet) 1 tablet PO DAILYCM [facility] Cyanocobalamin (Cyanocobalamin 500 Mcg Tablet) 1,000 mcg PO DAILY [facility] Fluticasone Propionate (Fluticasone 0.05% 1 [place] Nasal.Sry) 2 spray NASAL DAILY [place] Folic Acid (Folic Acid 1 Mg Tablet) 1 mg PO DAILYCM [facility] Furosemide (Furosemide 40 Mg Tablet) 40 mg PO DAILY [facility] Insulin Glargine (Insulin Glargine 100 Units/Ml Pen) 15 units SC BREAKFAST [facility] Insulin Human Lispro (Insulin Lispro 100 Unit/Ml Insuln.Pen) 0 unit SC TIDCM [facility]; Protocol Last Admin: 12/31/20 18:10 Dose: Not Given Documented by: Insulin Human Lispro (Insulin Lispro 100 Unit/Ml Insuln.Pen) 8 unit SC TIDCM [facility] Last Admin: 12/31/20 18:09 Dose: Not Given Documented by: Lactobacillus Acidophilus (Lactobacillus Acidophilus) 1 tablet PO DAILY [facility] Levothyroxine Sodium (Levothyroxine 25 Mcg Tablet) 25 mcg PO DAILY [facility] Metoprolol Tartrate (Metoprolol Tartrate 25 Mg Tablet) 25 mg PO BID [facility] Last Admin: 12/31/20 18:07 Dose: 25 mg Documented by: Nitroglycerin (Nitroglycerin (Inpatient Use) 0.4 Mg Tab.Subl) 0.4 mg SL Q5M PRN PRN Reason: CARDIAC/CHEST PAIN Nystatin (Nystatin Powder 15gm Bottle) 1 applic TOPICAL BID [facility]; Protocol Last Admin: 12/31/20 18:10 Dose: 1 applic Documented by: Pantoprazole Sodium (Pantoprazole Sodium 40 Mg Tablet) 40 mg PO DAILY [facility] Paroxetine HCl (Paroxetine 20 Mg Tablet) 40 mg PO DAILY [facility] Polysaccharide Iron Complex (Iron Polysaccharide Complex 150 Mg Capsule) 150 mg PO DAILY [facility] Pramipexole Dihydrochloride (Pramipexole Di-Hcl 1 Mg Tablet) 1 mg PO BID [facility] Last Admin: 12/31/20 18:09 Dose: 1 mg Documented by: Prednisone (Prednisone 20 Mg Tablet) [facility] Stop: 01/05/21 08:01 Fluticasone/Salmeterol (Fluticasone/Salmeterol 232-14 Inhaler) 1 puff INHALATION Q12 [facility] Last Admin: 12/31/20 18:07 Dose: 1 puff Documented by: Sodium Chloride (0.9% Saline Lock 10 Ml Syringe) 10 - 40 ml IV UD PRN PRN Reason: Midline Flush Sodium Chloride (0.9 % Nacl (Sterile) Posiflush 10 Ml) 10 - 40 ml IV UD PRN PRN Reason: Port access or dressing change Trimethoprim/Sulfamethoxazole (Smz/Tmp Ds Tablet) [facility] Stop: 01/06/21 08:01 Umeclidinium [place] (Umeclidinium [place] Inhaler) 1 puff INHALATION DAILY [facility] Zolpidem Tartrate (Zolpidem Tartrate 5 Mg Tablet) 5 mg PO QHS PRN PRN Reason: INSOMNIA Assessment/Plan All Active Problems (Last Reviewed 12/10/20 @ 11:[address] Brown Vargas MD) Acute respiratory failure with hypoxia (Acute) Septic shock (Acute) Pneumonia (Acute) Hyperkalemia (Acute) Elevated liver enzymes (Acute) Cellulitis of right leg (Acute) Debility (Acute) Acute kidney injury (Acute) 75 year old female with below past medical history hospitalized for acute respiratory failure with hypoxia, requiring intubation secondary to pneumonia, COPD, complicated by septic shock, admitted to TCU with debility, here for rehabilitation, strengthening, prior to discharge home alone. * Debility - PT/OT. * Pain - Tylenol 1000MG Q6H PRN pain (1-10). * Bowel - Miralax 17GM daily, Senna/colace 1 tablet BID, MOM 30ML daily PRN, Dulcolax 10MG daily PRN. * Adult immunization - Administer Prevnar 13, Pneumovax 23, Fluzone, COVID19 vaccine as appropriate. * DVT prophylaxis - Not necessary, already on Eliquis. * COPD - Advair 232-14 1 puff inhalation Q12H, Incruse 1 puff daily, Albuterol 2.5MG nebulized Q4H PRN, Prednisone taper. * Atrial fibrillation - Metoprolol 25MG BID, Amiodarone 200MG daily, Eliquis 2.5MG BID. * Coronary artert disease - Metoprolol 25MG BID, Aspirin 81MG daily, NTG 0.4MG SL Q5M PRN. * Hyperlipidemia - Atorvastatin 80MG QHS. * Calcium deficiency - Calcium D 1 tablet daily. * Vitamin B12 deficiency - B12 1000MCG daily. * Allergic Rhinitis - Flonase 2 spray nasal daily. * Folate deficiency - Folic acid 1MG daily. * Chronic diastolic heart failure - Metoprolol 25MG BID, Lasix 40MG daily. * Diabetes Mellitus II - Lantus 15 units QAM, Humalog 8 units TIDCM. * Iron deficiency anemia - Ferrex 150MG daily. * GI prophylaxis - Lactobacillus 1 tablet daily. * Hypothyroidism - Levothyroxine 25MCG daily. * Tinea Corporis - Nystatin powder topical BID. * GERD - Pantoprazole 40MG daily. * Depression - Paroxetine 40MG daily, stable chronic emt intermediate use, GDR not recommended. * Restless Leg syndrome - Mirapex 1MG BID. * Insomnia - Zolpidem 5MG QHS PRN. * Serratia pneumonia/Klebsiella urinary tract infection - Bactrim DS 1 tablet daily thru 01/06/2021.
--- NOTE | 2020-12-31 21:20 | NURSING ---
Pt given comb per request, states she lost hers somewhere. While in room, pt asking why she is here and wanting to know how long she will have to stay. Explained to pt her diagnosis and cause of infection, copd and resp failure. Pt voices understanding, then states she is concerned because she hasn't talked to her daughter for 13 days, asked pt if she has called her, pt states she isn't taking her calls, also states that she has discovered that she has $500 that are missing, fears that her daughter took it. Informed pt that I will leave voicemail for social insurance analyst to see her tomorrow so she can look into that. Pt appreciative. Voicemail left for Vera to address on .
[2020-12-31 21:30] LABS: Bedside Glucose 303 mg/dL (70-110)
[2020-12-31] MEDS: Atorvastatin Calcium 80 MG Tablet PO (22:13)
[2020-12-31] MEDS: Zolpidem Tartrate 5 MG Tablet PO (22:17)
[2020-12-31] MEDS: Acetaminophen 500 MG Tablet 1000 MG PO (22:17)
[2021-01-01] VITALS (7 sets, daily range): BP systolic 151–167; BP diastolic 64–71; PULSE 58–62; RESP 18–20; TEMP 36.2–36.9; O2SAT 3–95
[2021-01-01] MEDS: Umeclidinium Bromide Inhaler 1 PUFF INHALATION (05:34)
[2021-01-01] MEDS: Fluticasone 0.05% 1 SPRAY NASAL.SRY 2 SPRAY NASAL (05:35)
[2021-01-01] MEDS: Cyanocobalamin 500 MCG Tablet 1000 MCG PO (05:35)
[2021-01-01] MEDS: Pantoprazole Sodium 40 MG Tablet PO (05:36)
[2021-01-01] MEDS: APIXABAN 2.5 MG TABLET PO ×2 (05:36→17:46)
[2021-01-01] MEDS: Senna/Docusate Sodium 1 Tablet PO ×2 (05:36→17:48)
[2021-01-01] MEDS: Furosemide 40 MG Tablet PO (05:36)
[2021-01-01] MEDS: Pramipexole Di-HCl 1 MG Tablet PO ×2 (05:36→17:47)
[2021-01-01] MEDS: Amiodarone 200 MG Tablet PO (05:36)
[2021-01-01] MEDS: Metoprolol Tartrate 25 MG Tablet PO ×2 (05:36→17:49)
[2021-01-01] MEDS: Levothyroxine 25 MCG TABLET PO (05:36)
[2021-01-01] MEDS: Iron Polysaccharide Complex 150 MG CAPSULE PO (05:36)
[2021-01-01] MEDS: Fluticasone/Salmeterol 232-14 Inhaler 1 PUFF INHALATION ×2 (05:40→17:48)
[2021-01-01] MEDS: Polyethylene Glycol 3350 17 GM PACKET PO (05:40)
[2021-01-01] MEDS: 0.9% Saline Lock 10 ML Syringe IV ×2 (05:47→10:51)
[2021-01-01] MEDS: Paroxetine 20 MG Tablet 40 MG PO (05:59)
[2021-01-01] MEDS: Nystatin Powder 15gm Bottle 1 APPLIC TOPICAL ×2 (06:02→17:47)
[2021-01-01 06:20] LABS: Bedside Glucose 241 mg/dL (70-110)
[2021-01-01 07:17] LABS: Absolute Lymphocyte Count 1.49 X10^3/uL (0.83-4.51); Absolute Neutrophil Count 14.3 X10^3/uL (2.0-7.7); Basophil# 0.05 X10^3/uL; Basophil% 0.3 % (0-1); Eosinophil# 0.01 X10^3/uL; Eosinophils% 0.1 % (0-5); Hematocrit 35.2 % (37-47); Hemoglobin 9.9 g/dL (12.0-15.0); Lymphocyte # 1.49 X10^3/ul (4.0); Lymphocyte % 8.1 % (19-41); Mean Corp Hgb Conc 28.1 g/dL (32-36); Mean Corpuscular Hgb 25.6 pg (27.0-32.0); Mean Corpuscular Volume 91.2 fL (81-99); Mean Platelet Vol. 12.3 fl (6.2-12.0); Monocyte# 2.12 X10^3/uL; Monocyte% 11.5 % (0-10); NRBC Flagged by Analyzer 2.4 % (0-5); Neutrophil # 14.34 X10^3/uL (2.7-7.7); Neutrophil % 77.9 % (47-70); POSITIVE DIFFERENTIAL YES; POSITIVE MORPHOLOGY YES; Platelet Count 531 K/mm3 (150-450); RBC Distribution Width CV 21.3 % (11.6-14.6); RBC Distribution Width SD 67.5 fl (35.1-43.9); Red Blood Count 3.86 M/mm3 (4.2-5.4); White Blood Count 18.4 K/mm3 (4.4-11.0)
[2021-01-01 07:18] LABS: Differential Indicated SCAN CRITERIA MET
[2021-01-01 07:28] LABS: Anion Gap 7 (5-15); BUN 62 mg/dL (7-18); Calcium,Total 8.2 mg/dL (8.5-10.1); Chloride 109 mmol/L (98-107); EST Glomerular Filtration Rate 26 mL/min (>60); Est Glom Filt Rate - Afr Amer 31 mL/min (>60); Estimated Creatinine Clearance 17.73 ml/min; Glucose 251 mg/dL (74-106); Potassium 5.4 mmol/L (3.5-5.1); Sodium Level 140 mmol/L (136-145)
[2021-01-01 07:46] LABS: Anisocytosis 1+
[2021-01-01] MEDS: Insulin Lispro 100 UNIT/ML INSULN.PEN SC ×2 (07:54→18:04)
[2021-01-01] MEDS: Insulin Lispro 100 UNIT/ML INSULN.PEN 8 UNIT SC (07:55)
[2021-01-01] MEDS: Aspirin E.C. 81 MG Tablet PO (07:56)
[2021-01-01] MEDS: Calcium Carb/Vitamin D 1 TABLET Tablet PO (07:56)
[2021-01-01] MEDS: predniSONE 20 MG Tablet 40 MG PO (07:56)
[2021-01-01] MEDS: Folic Acid 1 MG Tablet PO (07:56)
[2021-01-01] MEDS: Smz/Tmp Ds Tablet 1 TABLET PO (07:57)
[2021-01-01] MEDS: Sodium Polystyrene Sulfonate 15 GM/60 ML UDC 30 GM PO (09:45)
[2021-01-01 11:28] LABS: Pathologist Review Reviewed
[2021-01-01 11:35] LABS: Bedside Glucose 194 mg/dL (70-110)
[2021-01-01] MEDS: Insulin Lispro 100 UNIT/ML INSULN.PEN 10 UNIT SC (12:15)
--- NOTE | 2021-01-01 15:21 | PHA.CONS_ITS ---
<Tamia Johns M - Last Filed: 01/01/21 15:21> Progress Note - Pharmacy Subjective: TCU ADMISSION Objective: Allergies ciprofloxacin [From Cipro] Allergy (Verified 12/28/20 06:50) Rash ciprofloxacin HCl [From Cipro] Allergy (Verified 12/28/20 06:50) Rash gabapentin [From Neurontin] Allergy (Verified 12/28/20 06:50) Rash heparin Allergy (Verified 12/28/20 06:50) Low platelets tuberculin, purified protein deriva Adverse Reaction (Verified 12/28/20 06:50) Other Current Medications Generic Name Dose Route Start Last Admin Trade Name Freq PRN Reason Stop Dose Admin Acetaminophen 1,000 mg 12/31/20 20:49 12/31/20 22:17 Acetaminophen 500 Mg Tablet PO 1,000 mg Q6H PRN Administration Pain Score 1-10 Albuterol Sulfate 2.5 mg 12/31/20 16:46 Albuterol 2.5 Mg/3 Ml Vial.Neb. INHALATION Q4H PRN PRN SOB &/OR WHEEZING Amiodarone HCl 200 mg 01/01/21 06:00 01/01/21 05:36 Amiodarone 200 Mg Tablet PO 200 mg DAILY DIAMOND Administration Apixaban 2.5 mg 12/31/20 18:00 01/01/21 05:36 Apixaban 2.5 Mg Tablet PO 2.5 mg BID DIAMOND Administration Aspirin 81 mg 01/01/21 08:00 01/01/21 07:56 Aspirin E.C. 81 Mg Tablet PO 81 mg DAILY@0800 DIAMOND Administration Atorvastatin Calcium 80 mg 12/31/20 22:00 12/31/20 22:13 Atorvastatin Calcium 80 Mg Tablet PO 80 mg QHS DIAMOND Administration Bisacodyl 10 mg 12/31/20 20:50 Bisacodyl 5 Mg Tablet PO DAILY PRN Constipation Calcium/Vitamin D 1 tablet 01/01/21 08:00 01/01/21 07:56 Calcium Carb/Vitamin D 1 Tablet Tablet PO 1 tablet DAILYCM DIAMOND Administration Cyanocobalamin 1,000 mcg 01/01/21 06:00 01/01/21 05:35 Cyanocobalamin 500 Mcg Tablet PO 1,000 mcg DAILY DIAMOND Administration Fluticasone Propionate 2 spray 01/01/21 06:00 01/01/21 05:35 Fluticasone 0.05% 1 [place] Nasal.Sry NASAL 2 spray DAILY DIAMOND Administration Folic Acid 1 mg 01/01/21 08:00 01/01/21 07:56 Folic Acid 1 Mg Tablet PO 1 mg DAILYCM DIAMOND Administration Furosemide 40 mg 01/01/21 06:00 01/01/21 05:36 Furosemide 40 Mg Tablet PO 40 mg DAILY DIAMOND Administration Insulin Glargine 30 units 01/01/21 08:00 01/01/21 09:42 Insulin Glargine 100 Units/Ml Pen SC 15 u BREAKFAST DIAMOND Administration Insulin Human Lispro 10 unit 01/01/21 12:45 01/01/21 12:15 Insulin Lispro 100 Unit/Ml Insuln.Pen SC 10 u TIDCM DIAMOND Administration Lactobacillus Acidophilus 1 tablet 01/01/21 06:00 01/01/21 05:36 Lactobacillus Acidophilus PO 1 tablet DAILY DIAMOND Administration Levothyroxine Sodium 25 mcg 01/01/21 06:00 01/01/21 05:36 Levothyroxine 25 Mcg Tablet PO 25 mcg DAILY DIAMOND Administration Magnesium Hydroxide 30 ml 12/31/20 20:49 Magnesium Hydroxide 30 Ml Udc PO DAILY PRN Constipation Metoprolol Tartrate 25 mg 12/31/20 18:00 01/01/21 05:36 Metoprolol Tartrate 25 Mg Tablet PO 25 mg BID DIAMOND Administration Nitroglycerin 0.4 mg 12/31/20 17:25 Nitroglycerin (Inpatient Use) 0.4 Mg Tab.Subl SL Q5M PRN CARDIAC/CHEST PAIN Nystatin 1 applic 12/31/20 18:00 01/01/21 06:02 Nystatin Powder 15gm Bottle TOPICAL 1 applic BID DIAMOND Administration Protocol Pantoprazole Sodium 40 mg 01/01/21 06:00 01/01/21 05:36 Pantoprazole Sodium 40 Mg Tablet PO 40 mg DAILY DIAMOND Administration Paroxetine HCl 40 mg 01/01/21 06:00 01/01/21 05:59 Paroxetine 20 Mg Tablet PO 40 mg DAILY DIAMOND Administration Polyethylene Glycol 17 gm 01/01/21 06:00 01/01/21 05:40 Polyethylene Glycol 3350 17 Gm Packet PO 17 gm DAILY DIAMOND Administration Polysaccharide Iron Complex 150 mg 01/01/21 06:00 01/01/21 05:36 Iron Polysaccharide Complex 150 Mg Capsule PO 150 mg DAILY DIAMOND Administration Pramipexole Dihydrochloride 1 mg 12/31/20 18:00 01/01/21 05:36 Pramipexole Di-Hcl 1 Mg Tablet PO 1 mg BID DIAMOND Administration Prednisone 40 mg 01/01/21 08:00 01/01/21 07:56 Prednisone 20 Mg Tablet PO 01/05/21 08:01 40 mg DAILYCM DIAMOND Administration Fluticasone/Salmeterol 1 puff 12/31/20 18:00 01/01/21 05:40 Fluticasone/Salmeterol 232-14 Inhaler INHALATION 1 puff Q12 DIAMOND Administration Senna/Docusate Sodium 1 tablet 01/01/21 06:00 01/01/21 05:36 Senna/Docusate Sodium 1 Tablet PO 1 tablet BID DIAMOND Administration Sodium Chloride 10 - 40 ml 12/31/20 17:47 01/01/21 10:51 0.9% Saline Lock 10 Ml Syringe IV 20 ml UD PRN Administration Midline Flush Sodium Chloride 10 - 40 ml 12/31/20 17:47 0.9 % Nacl (Sterile) Posiflush 10 Ml IV UD PRN Port access or dressing change Trimethoprim/Sulfamethoxazole 1 tablet 01/01/21 08:00 01/01/21 07:57 Smz/Tmp Ds Tablet PO 01/06/21 08:01 1 tablet DAILYCM DIAMOND Administration Umeclidinium [place] 1 puff 01/01/21 06:00 01/01/21 05:34 Umeclidinium [place] Inhaler INHALATION 1 puff DAILY DIAMOND Administration Zolpidem Tartrate 5 mg 12/31/20 22:00 12/31/20 22:17 Zolpidem Tartrate 5 Mg Tablet PO 5 mg QHS PRN Administration INSOMNIA Problem List (Last Reviewed 12/10/20 @ 11:[address] Brown Vargas MD) Acute respiratory failure with hypoxia (Acute) Septic shock (Acute) Pneumonia (Acute) Hyperkalemia (Acute) Elevated liver enzymes (Acute) Fracture of right great toe (Chronic) Debility (Acute) Acute kidney injury (Acute) Depression (Chronic) Peripheral arterial occlusive disease (Chronic) Diabetic polyneuropathy (Chronic) Atrial fibrillation (Chronic) Hypertension (Chronic) Osteoporosis (Chronic) Gastroesophageal reflux disease (Chronic) Diabetes (Chronic) COPD (chronic obstructive pulmonary disease) (Chronic) Chronic diastolic heart failure (Chronic) Hyperlipidemia (Chronic) Vital Signs Temp Pulse Resp BP Pulse Ox 97.1 F L 60 20 H 167/64 H 91 01/01/21 13:46 01/01/21 13:46 01/01/21 13:46 01/01/21 13:46 01/01/21 13:46 Oxygen Flow Rate (L/min) 3 Oxygen Delivery Method Nasal Cannula Weight: 91.3 kg Body Mass Index (BMI) 39.3 Finger Stick Blood Glucose 112 Sodium 140 mmol/L (136-145) 01/01/21 07:00 Potassium 5.4 mmol/L (3.5-5.1) H 01/01/21 07:00 Chloride 109 mmol/L (98-107) H 01/01/21 07:00 Carbon Dioxide 24.0 mmol/L (21.0-32.0) 01/01/21 07:00 Anion Gap 7 (5-15) 01/01/21 07:00 BUN 62 mg/dL (7-18) H 01/01/21 07:00 Creatinine 2.00 mg/dL (0.55-1.02) H 01/01/21 07:00 Est GFR (MDRD) Af Amer 31 mL/min (>60) L 01/01/21 07:00 Est GFR (MDRD) Non-Af 26 mL/min (>60) L 01/01/21 07:00 BUN/Creatinine Ratio 31.0 RATIO (10-20) H 01/01/21 07:00 Glucose 251 mg/dL (74-106) H 01/01/21 07:00 Assessment/Plan: 1. Tylenol 1000mg PO Q6h PRN Pain 1-10. Please continue to monitor for increased/decreased S/S pain, PRN medication usage. 2. Afib/CHF/CAD: Amiodarone 200mg PO Daily, Eliquis 2.5mg PO BID, Aspirin 81mg PO Daily, Lipitor 80mg PO QHS, Lasix 40mg PO Daily, Lopressor 25mg PO BID, Nitrostat 0.4mg SL Q5m PRN. Please continue to monitor for S/S amiodarone toxicity, S/S bleeding/bruising, fluid status, electrolytes, BP, pulse. 3. COPD: AirDuo 1 puff BID, Incruse 1 puff daily, Albuterol nebs Q4h PRN, Prednisone 40mg PO Daily thru 01/05/21. Please continue to monitor for S/S COPD exacerbation, PRn nebulization use, BG (especially given hx DM2). 4. Diabetes Type II: Lantus 30 unit SC Breakfast, Humalog 10 unit TIDCM. Please continue to monitor A1c, POC blood glucose. 5. Hypothyroid: Synthroid 25mcg PO Daily. Please continue to monitor Tyroid function test as clinically indicated, monitor for S/s hypothyroidism. 6. GERD: Protonix 40mg PO daily. Please continue to monitor for GERD flare-up, recommend non-pharmacologic therapies as well to reduce exacerbations. 7. Restless Leg Syndrome: Pramipexole 1mg PO BID. Please continue to monitor for medication effectiveness. 8. Allergic Rhinitis: Flonase 2 spray intranasally Daily. Please continue to monitor for reduction in allergy symptoms. 9. UTI: Bactrim DS 1 tab PO Daily thru 01/06/21. Please continue to monitor po tassium, resolution of infection, fluid intake 10. General Wellness: Os-Kaz + D 1 tab PO daily, Vitamin B12 1000mcg PO daily, Folic Acid 1mg PO Daily, Acidophilus 1 tab PO daily, Ferrex 150mg PO daily. Please continue to monitor Psychotropic Medications: Depression: Paxil 40mg PO Daily. Please see H/P for GDR recommendation. Insomnia: Ambien 5mg PO QHS PRN. Please continue to monitor PRN usage, S/S excessive tiredness. Unnecessary Medications: None Bowel Regimen: Miralax 17g PO daily, Senna/Docusate 1 tab PO BID, Dulcolax 10mg PO Daily PRN, MOM 30mL PO Daily PRN. Please continue to monitor for increased/decreased constipation and/or diarrhea. Date of Note:: 01/01/21 - Provider Comments Provider responsibility: Provider responsible to enter orders to implement recommendations <Isaias Connor Chi - Last Filed: 01/01/21 17:42> Progress Note - Pharmacy Subjective: [] Objective: Allergies ciprofloxacin [From Cipro] Allergy (Verified 12/28/20 06:50) Rash ciprofloxacin HCl [From Cipro] Allergy (Verified 12/28/20 06:50) Rash gabapentin [From Neurontin] Allergy (Verified 12/28/20 06:50) Rash heparin Allergy (Verified 12/28/20 06:50) Low platelets tuberculin, purified protein deriva Adverse Reaction (Verified 12/28/20 06:50) Other Current Medications Generic Name Dose Route Start Last Admin Trade Name Jo [place] PRN Reason Stop Dose Admin Acetaminophen 1,000 mg 12/31/20 20:49 12/31/20 22:17 Acetaminophen 500 Mg Tablet PO 1,000 mg Q6H PRN Administration Pain Score 1-10 Albuterol Sulfate 2.5 mg 12/31/20 16:46 Albuterol 2.5 Mg/3 Ml Vial.Neb. INHALATION Q4H PRN PRN SOB &/OR WHEEZING Amiodarone HCl 200 mg 01/01/21 06:00 01/01/21 05:36 Amiodarone 200 Mg Tablet PO 200 mg DAILY DIAMOND Administration Apixaban 2.5 mg 12/31/20 18:00 01/01/21 05:36 Apixaban 2.5 Mg Tablet PO 2.5 mg BID DIAMOND Administration Aspirin 81 mg 01/01/21 08:00 01/01/21 07:56 Aspirin E.C. 81 Mg Tablet PO 81 mg DAILY@0800 DIAMOND Administration Atorvastatin Calcium 80 mg 12/31/20 22:00 12/31/20 22:13 Atorvastatin Calcium 80 Mg Tablet PO 80 mg QHS DIAMOND Administration Bisacodyl 10 mg 12/31/20 20:50 Bisacodyl 5 Mg Tablet PO DAILY PRN Constipation Calcium/Vitamin D 1 tablet 01/01/21 08:00 01/01/21 07:56 Calcium Carb/Vitamin D 1 Tablet Tablet PO 1 tablet DAILYCM DIAMOND Administration Cyanocobalamin 1,000 mcg 01/01/21 06:00 01/01/21 05:35 Cyanocobalamin 500 Mcg Tablet PO 1,000 mcg DAILY DIAMOND Administration Fluticasone Propionate 2 spray 01/01/21 06:00 01/01/21 05:35 Fluticasone 0.05% 1 [place] Nasal.Sry NASAL 2 spray DAILY DIAMOND Administration Folic Acid 1 mg 01/01/21 08:00 01/01/21 07:56 Folic Acid 1 Mg Tablet PO 1 mg DAILYCM DIAMOND Administration Furosemide 40 mg 01/01/21 06:00 01/01/21 05:36 Furosemide 40 Mg Tablet PO 40 mg DAILY DIAMOND Administration Insulin Glargine 15 units 01/02/21 08:00 Insulin Glargine 100 Units/Ml Pen SC BREAKFAST COUNT INCLUDES THE [facility] Insulin Human Lispro 10 unit 01/01/21 12:45 01/01/21 12:15 Insulin Lispro 100 Unit/Ml Insuln.Pen SC 10 u TIDCM COUNT INCLUDES THE [facility] Administration Lactobacillus Acidophilus 1 tablet 01/01/21 06:00 01/01/21 05:36 Lactobacillus Acidophilus PO 1 tablet DAILY DIAMOND Administration Levothyroxine Sodium 25 mcg 01/01/21 06:00 01/01/21 05:36 Levothyroxine 25 Mcg Tablet PO 25 mcg DAILY DIAMOND Administration Magnesium Hydroxide 30 ml 12/31/20 20:49 Magnesium Hydroxide 30 Ml Udc PO DAILY PRN Constipation Metoprolol Tartrate 25 mg 12/31/20 18:00 01/01/21 05:36 Metoprolol Tartrate 25 Mg Tablet PO 25 mg BID DIAMOND Administration Nitroglycerin 0.4 mg 12/31/20 17:25 Nitroglycerin (Inpatient Use) 0.4 Mg Tab.Subl SL Q5M PRN CARDIAC/CHEST PAIN Nystatin 1 applic 12/31/20 18:00 01/01/21 06:02 Nystatin Powder 15gm Bottle TOPICAL 1 applic BID COUNT INCLUDES THE [facility] Administration Protocol Pantoprazole Sodium 40 mg 01/01/21 06:00 01/01/21 05:36 Pantoprazole Sodium 40 Mg Tablet PO 40 mg DAILY DIAMOND Administration Paroxetine HCl 40 mg 01/01/21 06:00 01/01/21 05:59 Paroxetine 20 Mg Tablet PO 40 mg DAILY DIAMOND Administration Polyethylene Glycol 17 gm 01/01/21 06:00 01/01/21 05:40 Polyethylene Glycol 3350 17 Gm Packet PO 17 gm DAILY DIAMOND Administration Polysaccharide Iron Complex 150 mg 01/01/21 06:00 01/01/21 05:36 Iron Polysaccharide Complex 150 Mg Capsule PO 150 mg DAILY COUNT INCLUDES THE [facility] Administration Pramipexole Dihydrochloride 1 mg 12/31/20 18:00 01/01/21 05:36 Pramipexole Di-Hcl 1 Mg Tablet PO 1 mg BID COUNT INCLUDES THE [facility] Administration Prednisone 40 mg 01/01/21 08:00 01/01/21 07:56 Prednisone 20 Mg Tablet PO 01/05/21 08:01 40 mg DAILYCM DIAMOND Administration Fluticasone/Salmeterol 1 puff 12/31/20 18:00 01/01/21 05:40 Fluticasone/Salmeterol 232-14 Inhaler INHALATION 1 puff Q12 DIAMOND Administration Senna/Docusate Sodium 1 tablet 01/01/21 06:00 01/01/21 05:36 Senna/Docusate Sodium 1 Tablet PO 1 tablet BID DIAMOND Administration Sodium Chloride 10 - 40 ml 12/31/20 17:47 01/01/21 10:51 0.9% Saline Lock 10 Ml Syringe IV 20 ml UD PRN Administration Midline Flush Sodium Chloride 10 - 40 ml 12/31/20 17:47 0.9 % Nacl (Sterile) Posiflush 10 Ml IV UD PRN Port access or dressing change Trimethoprim/Sulfamethoxazole 1 tablet 01/01/21 08:00 01/01/21 07:57 Smz/Tmp Ds Tablet PO 01/06/21 08:01 1 tablet DAILYCM DIAMOND Administration Umeclidinium [place] 1 puff 01/01/21 06:00 01/01/21 05:34 Umeclidinium [place] Inhaler INHALATION 1 puff DAILY DIAMOND Administration Zolpidem Tartrate 5 mg 12/31/20 22:00 12/31/20 22:17 Zolpidem Tartrate 5 Mg Tablet PO 5 mg QHS PRN Administration INSOMNIA Problem List (Last Reviewed 12/10/20 @ 11:[address] Brown Vargas MD) Acute respiratory failure with hypoxia (Acute) Septic shock (Acute) Pneumonia (Acute) Hyperkalemia (Acute) Elevated liver enzymes (Acute) Fracture of right great toe (Chronic) Debility (Acute) Acute kidney injury (Acute) Depression (Chronic) Peripheral arterial occlusive disease (Chronic) Diabetic polyneuropathy (Chronic) Atrial fibrillation (Chronic) Hypertension (Chronic) Osteoporosis (Chronic) Gastroesophageal reflux disease (Chronic) Diabetes (Chronic) COPD (chronic obstructive pulmonary disease) (Chronic) Chronic diastolic heart failure (Chronic) Hyperlipidemia (Chronic) Vital Signs Temp Pulse Resp BP Pulse Ox 97.1 F L 60 20 H 167/64 H 91 01/01/21 13:46 01/01/21 13:46 01/01/21 13:46 01/01/21 13:46 01/01/21 13:46 Oxygen Flow Rate (L/min) 3 Oxygen Delivery Method Nasal Cannula Weight: 91.3 kg Body Mass Index (BMI) 39.3 Finger Stick Blood Glucose 112 Sodium 140 mmol/L (136-145) 01/01/21 07:00 Potassium 5.4 mmol/L (3.5-5.1) H 01/01/21 07:00 Chloride 109 mmol/L (98-107) H 01/01/21 07:00 Carbon Dioxide 24.0 mmol/L (21.0-32.0) 01/01/21 07:00 Anion Gap 7 (5-15) 01/01/21 07:00 BUN 62 mg/dL (7-18) H 01/01/21 07:00 Creatinine 2.00 mg/dL (0.55-1.02) H 01/01/21 07:00 Est GFR (MDRD) Af Amer 31 mL/min (>60) L 01/01/21 07:00 Est GFR (MDRD) Non-Af 26 mL/min (>60) L 01/01/21 07:00 BUN/Creatinine Ratio 31.0 RATIO (10-20) H 01/01/21 07:00 Glucose 251 mg/dL (74-106) H 01/01/21 07:00 Assessment/Plan: Psychotropic Medications: Unnecessary Medications: Bowel Regimen: - Provider Comments Provider responsibility: Provider responsible to enter orders to implement recommendations Provider Comments to Recommendations by Pharmacy: Agree
--- NOTE | 2021-01-01 15:57 | NURSING ---
LACTULOSE GIVEN PER ORDER DUE TO HIGH POTASSIUM. PT HAD POSITIVE RESULTS.
--- NOTE | 2021-01-01 16:16 | CASEMGMT ---
Social Work Referral made to [facility]. casi Waller BOILER TENDERS SUPERVISOR PHOTOGRAPHY AND PRINTS CURATOR
[2021-01-01 16:31] LABS: Bedside Glucose 85 mg/dL (70-110)
[2021-01-01] MEDS: Atorvastatin Calcium 80 MG Tablet PO (20:21)
[2021-01-01 21:41] LABS: Bedside Glucose 59 mg/dL (70-110)
[2021-01-01 22:05] LABS: Bedside Glucose 94 mg/dL (70-110)
[2021-01-02] VITALS (8 sets, daily range): BP systolic 156–171; BP diastolic 54–76; PULSE 53–65; RESP 16–22; TEMP 36.1–36.7; O2SAT 90–94
[2021-01-02] MEDS: Albuterol 2.5 MG/3 ML VIAL.NEB. INHALATION (01:50)
[2021-01-02] MEDS: Acetaminophen 500 MG Tablet 1000 MG PO ×3 (03:00→23:30)
[2021-01-02 06:08] LABS: Anion Gap 9 (5-15); BUN 58 mg/dL (7-18); BUN/Creat Ratio 33.3 RATIO (10-20); Calcium,Total 8.3 mg/dL (8.5-10.1); Chloride 108 mmol/L (98-107); Creatinine, Serum 1.74 mg/dL (0.55-1.02); EST Glomerular Filtration Rate 30 mL/min (>60); Est Glom Filt Rate - Afr Amer 37 mL/min (>60); Estimated Creatinine Clearance 20.37 ml/min; Glucose 54 mg/dL (74-106); Potassium 3.4 mmol/L (3.5-5.1); Sodium Level 145 mmol/L (136-145)
[2021-01-02] MEDS: Fluticasone/Salmeterol 232-14 Inhaler 1 PUFF INHALATION ×2 (06:08→17:42)
[2021-01-02] MEDS: Umeclidinium Bromide Inhaler 1 PUFF INHALATION (06:08)
[2021-01-02] MEDS: Cyanocobalamin 500 MCG Tablet 1000 MCG PO (06:09)
[2021-01-02] MEDS: Pantoprazole Sodium 40 MG Tablet PO (06:09)
[2021-01-02] MEDS: Amiodarone 200 MG Tablet PO (06:09)
[2021-01-02] MEDS: Levothyroxine 25 MCG TABLET PO (06:09)
[2021-01-02] MEDS: Iron Polysaccharide Complex 150 MG CAPSULE PO (06:09)
[2021-01-02] MEDS: Paroxetine 20 MG Tablet 40 MG PO (06:09)
[2021-01-02] MEDS: APIXABAN 2.5 MG TABLET PO ×2 (06:09→17:41)
[2021-01-02] MEDS: Furosemide 40 MG Tablet PO (06:09)
[2021-01-02] MEDS: Pramipexole Di-HCl 1 MG Tablet PO ×2 (06:09→17:41)
[2021-01-02] MEDS: Polyethylene Glycol 3350 17 GM PACKET PO (06:09)
[2021-01-02] MEDS: Senna/Docusate Sodium 1 Tablet PO ×2 (06:09→17:42)
[2021-01-02] MEDS: Metoprolol Tartrate 25 MG Tablet PO ×2 (06:09→17:41)
[2021-01-02] MEDS: Fluticasone 0.05% 1 SPRAY NASAL.SRY 2 SPRAY NASAL (06:10)
[2021-01-02] MEDS: Nystatin Powder 15gm Bottle 1 APPLIC TOPICAL ×2 (06:10→17:45)
--- NOTE | 2021-01-02 06:17 | NURSING ---
Patient diaphoretic. Blood glucose obtained, 50 mg/dL. 180 cc of Milk given and 90 cc of orange juice. Will recheck patient in 15-20 minutes.
[2021-01-02 06:26] LABS: Bedside Glucose 50 mg/dL (70-110)
[2021-01-02 06:45] LABS: Bedside Glucose 76 mg/dL (70-110)
[2021-01-02] MEDS: Aspirin E.C. 81 MG Tablet PO (08:00)
[2021-01-02] MEDS: Folic Acid 1 MG Tablet PO (08:00)
[2021-01-02] MEDS: predniSONE 20 MG Tablet 40 MG PO (08:00)
[2021-01-02] MEDS: Smz/Tmp Ds Tablet 1 TABLET PO (08:00)
[2021-01-02] MEDS: Calcium Carb/Vitamin D 1 TABLET Tablet PO (08:00)
[2021-01-02] MEDS: Glucerna Shake 120 ML LIQUID PO ×3 (08:01→17:40)
[2021-01-02 10:45] LABS: Bedside Glucose 184 mg/dL (70-110)
[2021-01-02 16:11] LABS: Bedside Glucose 261 mg/dL (70-110)
[2021-01-02] MEDS: oxyCODONE 5 MG Tablet PO ×2 (16:27→23:31)
[2021-01-02] MEDS: 0.9% Saline Lock 10 ML Syringe IV (17:43)
[2021-01-02] MEDS: Atorvastatin Calcium 80 MG Tablet PO (21:22)
[2021-01-02 21:31] LABS: Bedside Glucose 382 mg/dL (70-110)
[2021-01-03] VITALS (7 sets, daily range): BP systolic 155–182; BP diastolic 76–81; PULSE 57–60; RESP 16–20; TEMP 35.9–36.6; O2SAT 91–92
[2021-01-03] MEDS: Levothyroxine 25 MCG TABLET PO (05:01)
[2021-01-03] MEDS: Furosemide 40 MG Tablet PO (05:01)
[2021-01-03] MEDS: Paroxetine 20 MG Tablet 40 MG PO (05:01)
[2021-01-03] MEDS: Pantoprazole Sodium 40 MG Tablet PO (05:01)
[2021-01-03] MEDS: Senna/Docusate Sodium 1 Tablet PO ×2 (05:01→17:25)
[2021-01-03] MEDS: APIXABAN 2.5 MG TABLET PO ×2 (05:02→17:26)
[2021-01-03] MEDS: Umeclidinium Bromide Inhaler 1 PUFF INHALATION (05:02)
[2021-01-03] MEDS: Pramipexole Di-HCl 1 MG Tablet PO ×2 (05:02→17:25)
[2021-01-03] MEDS: Polyethylene Glycol 3350 17 GM PACKET PO (05:02)
[2021-01-03] MEDS: Fluticasone 0.05% 1 SPRAY NASAL.SRY 2 SPRAY NASAL (05:03)
[2021-01-03] MEDS: Cyanocobalamin 500 MCG Tablet 1000 MCG PO (05:03)
[2021-01-03] MEDS: Iron Polysaccharide Complex 150 MG CAPSULE PO (05:03)
[2021-01-03] MEDS: Fluticasone/Salmeterol 232-14 Inhaler 1 PUFF INHALATION ×2 (05:03→17:26)
[2021-01-03] MEDS: Nystatin Powder 15gm Bottle 1 APPLIC TOPICAL ×2 (05:04→17:27)
[2021-01-03] MEDS: Amiodarone 200 MG Tablet PO (05:19)
[2021-01-03 06:30] LABS: Bedside Glucose 298 mg/dL (70-110)
[2021-01-03] MEDS: Aspirin E.C. 81 MG Tablet PO (08:04)
[2021-01-03] MEDS: Calcium Carb/Vitamin D 1 TABLET Tablet PO (08:04)
[2021-01-03] MEDS: Glucerna Shake 120 ML LIQUID PO ×3 (08:04→17:26)
[2021-01-03] MEDS: Folic Acid 1 MG Tablet PO (08:04)
[2021-01-03] MEDS: predniSONE 20 MG Tablet 40 MG PO (08:05)
[2021-01-03] MEDS: Smz/Tmp Ds Tablet 1 TABLET PO (08:06)
[2021-01-03 10:46] LABS: Bedside Glucose 334 mg/dL (70-110)
[2021-01-03] MEDS: Insulin Lispro 100 UNIT/ML INSULN.PEN 10 UNIT SC (12:16)
[2021-01-03] MEDS: Insulin Lispro 100 UNIT/ML INSULN.PEN 7 UNIT SC ×2 (12:16→17:26)
[2021-01-03 16:45] LABS: Bedside Glucose 268 mg/dL (70-110)
[2021-01-03] MEDS: Metoprolol Tartrate 25 MG Tablet PO (17:25)
[2021-01-03] MEDS: Albuterol 2.5 MG/3 ML VIAL.NEB. INHALATION (21:18)
[2021-01-03 21:56] LABS: Bedside Glucose 205 mg/dL (70-110)
[2021-01-03] MEDS: Atorvastatin Calcium 80 MG Tablet PO (22:40)
[2021-01-03] MEDS: 0.9% Saline Lock 10 ML Syringe IV (22:44)
[2021-01-04] MEDS: Zolpidem Tartrate 5 MG Tablet PO ×2 (00:41→22:46)
[2021-01-04 05:00] VITALS: BP 154/72; PULSE 52; RESP 18; TEMP 36.9; O2SAT 96
[2021-01-04] MEDS: Polyethylene Glycol 3350 17 GM PACKET PO (05:30)
[2021-01-04] MEDS: Levothyroxine 25 MCG TABLET PO (05:30)
[2021-01-04] MEDS: Cyanocobalamin 500 MCG Tablet 1000 MCG PO (05:30)
[2021-01-04] MEDS: Paroxetine 20 MG Tablet 40 MG PO (05:31)
[2021-01-04] MEDS: APIXABAN 2.5 MG TABLET PO ×2 (05:31→17:44)
[2021-01-04] MEDS: Pantoprazole Sodium 40 MG Tablet PO (05:31)
[2021-01-04] MEDS: Iron Polysaccharide Complex 150 MG CAPSULE PO (05:31)
[2021-01-04] MEDS: Senna/Docusate Sodium 1 Tablet PO ×2 (05:31→17:46)
[2021-01-04] MEDS: Amiodarone 200 MG Tablet PO (05:32)
[2021-01-04] MEDS: Furosemide 40 MG Tablet PO (05:32)
[2021-01-04 05:33] VITALS: BP 154/72; PULSE 52
[2021-01-04] MEDS: Pramipexole Di-HCl 1 MG Tablet PO ×2 (05:33→17:45)
[2021-01-04] MEDS: Fluticasone 0.05% 1 SPRAY NASAL.SRY 2 SPRAY NASAL (05:34)
[2021-01-04] MEDS: Fluticasone/Salmeterol 232-14 Inhaler 1 PUFF INHALATION ×2 (05:34→17:47)
[2021-01-04] MEDS: Umeclidinium Bromide Inhaler 1 PUFF INHALATION (05:37)
[2021-01-04] MEDS: Nystatin Powder 15gm Bottle 1 APPLIC TOPICAL ×2 (05:38→17:46)
[2021-01-04 06:21] LABS: Bedside Glucose 127 mg/dL (70-110)
[2021-01-04] MEDS: Glucerna Shake 120 ML LIQUID PO ×3 (08:34→17:43)
[2021-01-04] MEDS: Insulin Lispro 100 UNIT/ML INSULN.PEN 7 UNIT SC ×3 (08:36→17:43)
[2021-01-04] MEDS: Folic Acid 1 MG Tablet PO (08:37)
[2021-01-04] MEDS: Smz/Tmp Ds Tablet 1 TABLET PO (08:37)
[2021-01-04] MEDS: Aspirin E.C. 81 MG Tablet PO (08:37)
[2021-01-04] MEDS: predniSONE 20 MG Tablet 40 MG PO (08:37)
[2021-01-04] MEDS: Calcium Carb/Vitamin D 1 TABLET Tablet PO (08:37)
[2021-01-04 10:51] LABS: Bedside Glucose 166 mg/dL (70-110)
[2021-01-04 11:09] LABS: Anion Gap 12 (5-15); BUN 70 mg/dL (7-18); BUN/Creat Ratio 33.2 RATIO (10-20); Calcium,Total 8.5 mg/dL (8.5-10.1); Chloride 106 mmol/L (98-107); Creatinine, Serum 2.11 mg/dL (0.55-1.02); EST Glomerular Filtration Rate 24 mL/min (>60); Est Glom Filt Rate - Afr Amer 29 mL/min (>60); Glucose 165 mg/dL (74-106); Potassium 4.5 mmol/L (3.5-5.1); Sodium Level 139 mmol/L (136-145)
[2021-01-04 14:56] VITALS: BP 148/67; PULSE 60; RESP 16; TEMP 36.3; O2SAT 93
[2021-01-04 16:31] LABS: Bedside Glucose 130 mg/dL (70-110)
[2021-01-04 17:45] VITALS: BP 148/67; PULSE 60
[2021-01-04] MEDS: Metoprolol Tartrate 25 MG Tablet PO (17:45)
[2021-01-04 20:55] VITALS: PULSE 52; RESP 18; O2SAT 96
[2021-01-04] MEDS: Atorvastatin Calcium 80 MG Tablet PO (21:21)
[2021-01-04 21:36] LABS: Bedside Glucose 164 mg/dL (70-110)
--- NOTE | 2021-01-04 22:49 | NURSING ---
Patient complaining of missing eyes glasses, upper dentures, and $500 dollars in wilson. Patient has a wallet locked in med cabinet in room this nurse noted no wilson in wallet but has credit cards. Patient also states, If the wilson isn't here it could be at home in my secret place. This nurse will leave a message with the social work case manager and my clinical team manager making them aware.
[2021-01-05 05:00] VITALS: BP 163/95; PULSE 50; RESP 18; TEMP 36.9; O2SAT 97
[2021-01-05] MEDS: 0.9% Saline Lock 10 ML Syringe IV ×3 (05:00→20:55)
[2021-01-05] MEDS: Polyethylene Glycol 3350 17 GM PACKET PO (05:57)
[2021-01-05] MEDS: Senna/Docusate Sodium 1 Tablet PO ×2 (05:58→17:35)
[2021-01-05] MEDS: Levothyroxine 25 MCG TABLET PO (05:58)
[2021-01-05] MEDS: APIXABAN 2.5 MG TABLET PO ×2 (05:58→17:31)
[2021-01-05] MEDS: Paroxetine 20 MG Tablet 40 MG PO (05:58)
[2021-01-05] MEDS: Umeclidinium Bromide Inhaler 1 PUFF INHALATION (05:58)
[2021-01-05] MEDS: Pramipexole Di-HCl 1 MG Tablet PO ×2 (05:58→17:35)
[2021-01-05] MEDS: Fluticasone 0.05% 1 SPRAY NASAL.SRY 2 SPRAY NASAL (05:58)
[2021-01-05 05:59] VITALS: PULSE 50
[2021-01-05] MEDS: Iron Polysaccharide Complex 150 MG CAPSULE PO (05:59)
[2021-01-05] MEDS: Cyanocobalamin 500 MCG Tablet 1000 MCG PO (05:59)
[2021-01-05] MEDS: Furosemide 40 MG Tablet PO (05:59)
[2021-01-05] MEDS: Pantoprazole Sodium 40 MG Tablet PO (05:59)
[2021-01-05] MEDS: Amiodarone 200 MG Tablet PO (05:59)
[2021-01-05] MEDS: Fluticasone/Salmeterol 232-14 Inhaler 1 PUFF INHALATION ×2 (06:04→17:32)
[2021-01-05] MEDS: Nystatin Powder 15gm Bottle 1 APPLIC TOPICAL ×2 (06:05→17:35)
[2021-01-05 06:35] LABS: Bedside Glucose 107 mg/dL (70-110)
[2021-01-05 06:50] VITALS: O2SAT 89
--- NOTE | 2021-01-05 07:04 | NURSING ---
Patient has periorbital edema this am able to open and close eyes without problems. Held lopressor this am due to apical pulse being 50.
[2021-01-05] MEDS: Glucerna Shake 120 ML LIQUID PO ×3 (08:02→17:28)
[2021-01-05] MEDS: Insulin Lispro 100 UNIT/ML INSULN.PEN 7 UNIT SC ×3 (08:02→17:29)
[2021-01-05] MEDS: Folic Acid 1 MG Tablet PO (08:03)
[2021-01-05] MEDS: Calcium Carb/Vitamin D 1 TABLET Tablet PO (08:03)
[2021-01-05] MEDS: Aspirin E.C. 81 MG Tablet PO (08:03)
[2021-01-05] MEDS: Smz/Tmp Ds Tablet 1 TABLET PO (08:03)
[2021-01-05] MEDS: predniSONE 20 MG Tablet 40 MG PO (08:04)
[2021-01-05 10:00] VITALS: O2SAT 92
--- NOTE | 2021-01-05 10:02 | PT ---
With activity pt's SPO2 decreased to 80% while on 4L of O2. She was able to recover to 94% once seated and rested x 2 min. Pt is easily SOB with all functional mobility.
--- NOTE | 2021-01-05 10:37 | NURSING ---
dr gamble updated on lopressor being held last couple days d/t bradycardia, but regular. new order entered decrease of lopressor 12.5mg BID
[2021-01-05 11:00] LABS: Bedside Glucose 112 mg/dL (70-110)
[2021-01-05 14:17] VITALS: BP 156/74; PULSE 48; RESP 20; TEMP 36.1; O2SAT 99
[2021-01-05 16:36] LABS: Bedside Glucose 94 mg/dL (70-110)
[2021-01-05 17:32] VITALS: PULSE 58
[2021-01-05] MEDS: Metoprolol Tartrate 25 MG Tablet 12.5 MG PO (17:32)
[2021-01-05] MEDS: Atorvastatin Calcium 80 MG Tablet PO (20:53)
[2021-01-05 21:16] LABS: Bedside Glucose 151 mg/dL (70-110)
[2021-01-06 05:00] VITALS: BP 151/56; PULSE 52; RESP 16; TEMP 36.8; O2SAT 96
[2021-01-06] MEDS: Furosemide 40 MG Tablet PO (05:33)
[2021-01-06] MEDS: Senna/Docusate Sodium 1 Tablet PO ×2 (05:33→17:40)
[2021-01-06] MEDS: Cyanocobalamin 500 MCG Tablet 1000 MCG PO (05:33)
[2021-01-06] MEDS: Paroxetine 20 MG Tablet 40 MG PO (05:33)
[2021-01-06] MEDS: Levothyroxine 25 MCG TABLET PO (05:34)
[2021-01-06] MEDS: Fluticasone/Salmeterol 232-14 Inhaler 1 PUFF INHALATION ×2 (05:34→17:45)
[2021-01-06] MEDS: Pramipexole Di-HCl 1 MG Tablet PO ×2 (05:34→17:41)
[2021-01-06] MEDS: Amiodarone 200 MG Tablet PO (05:34)
[2021-01-06] MEDS: Iron Polysaccharide Complex 150 MG CAPSULE PO (05:34)
[2021-01-06] MEDS: Polyethylene Glycol 3350 17 GM PACKET PO (05:34)
[2021-01-06] MEDS: APIXABAN 2.5 MG TABLET PO ×2 (05:34→17:41)
[2021-01-06] MEDS: Pantoprazole Sodium 40 MG Tablet PO (05:34)
[2021-01-06] MEDS: Nystatin Powder 15gm Bottle 1 APPLIC TOPICAL ×2 (05:35→17:41)
[2021-01-06] MEDS: Fluticasone 0.05% 1 SPRAY NASAL.SRY 2 SPRAY NASAL (05:35)
[2021-01-06] MEDS: Umeclidinium Bromide Inhaler 1 PUFF INHALATION (05:40)
[2021-01-06 06:16] LABS: Bedside Glucose 167 mg/dL (70-110)
[2021-01-06 06:39] VITALS: O2SAT 95
[2021-01-06 07:06] VITALS: PULSE 52
[2021-01-06] MEDS: Glucerna Shake 120 ML LIQUID PO ×3 (08:09→17:44)
[2021-01-06] MEDS: Aspirin E.C. 81 MG Tablet PO (08:10)
[2021-01-06] MEDS: Smz/Tmp Ds Tablet 1 TABLET PO (08:11)
[2021-01-06] MEDS: Folic Acid 1 MG Tablet PO (08:11)
[2021-01-06] MEDS: Insulin Lispro 100 UNIT/ML INSULN.PEN 7 UNIT SC ×3 (08:11→17:36)
[2021-01-06] MEDS: Calcium Carb/Vitamin D 1 TABLET Tablet PO (08:11)
[2021-01-06] MEDS: oxyCODONE 5 MG Tablet PO ×3 (08:14→22:05)
[2021-01-06 10:56] LABS: Bedside Glucose 140 mg/dL (70-110)
[2021-01-06] MEDS: 0.9% Saline Lock 10 ML Syringe IV (10:58)
--- NOTE | 2021-01-06 11:42 | CASEMGMT ---
Social Work Brief interview for mental status (BIMS) and resident mood interview (PHQ-9) completed on this day. BIMS score 14/15. PHQ-9 score 04/12. Sada NINO, MILENAS
[2021-01-06 14:07] VITALS: BP 139/54; PULSE 52; RESP 18; TEMP 36; O2SAT 95
[2021-01-06 16:21] LABS: Bedside Glucose 133 mg/dL (70-110)
[2021-01-06 18:11] VITALS: BP 139/54; PULSE 52
[2021-01-06] MEDS: Atorvastatin Calcium 80 MG Tablet PO (20:41)
[2021-01-06 21:15] LABS: Bedside Glucose 149 mg/dL (70-110)
[2021-01-06 22:00] VITALS: O2SAT 95
[2021-01-06] MEDS: Zolpidem Tartrate 5 MG Tablet PO (22:05)
--- NOTE | 2021-01-07 04:23 | NURSING ---
late entry: 01/06 at hs midline dressing changed per protocol, midline remained in place, and flushed well with blood return. Pt tolerated well.
[2021-01-07 05:00] VITALS: BP 160/57; PULSE 60; RESP 20; TEMP 36.6; O2SAT 95
[2021-01-07 06:20] LABS: Bedside Glucose 51 mg/dL (70-110)
[2021-01-07 06:21] VITALS: BP 160/57; PULSE 60
[2021-01-07] MEDS: Furosemide 40 MG Tablet PO (06:21)
[2021-01-07] MEDS: Paroxetine 20 MG Tablet 40 MG PO (06:21)
[2021-01-07] MEDS: Metoprolol Tartrate 25 MG Tablet 12.5 MG PO ×2 (06:21→17:14)
[2021-01-07] MEDS: Cyanocobalamin 500 MCG Tablet 1000 MCG PO (06:22)
[2021-01-07] MEDS: Pramipexole Di-HCl 1 MG Tablet PO ×2 (06:22→17:14)
[2021-01-07] MEDS: Iron Polysaccharide Complex 150 MG CAPSULE PO (06:22)
[2021-01-07] MEDS: Amiodarone 200 MG Tablet PO (06:22)
[2021-01-07] MEDS: Levothyroxine 25 MCG TABLET PO (06:22)
[2021-01-07] MEDS: Senna/Docusate Sodium 1 Tablet PO ×2 (06:22→17:16)
[2021-01-07] MEDS: Pantoprazole Sodium 40 MG Tablet PO (06:22)
[2021-01-07] MEDS: Nystatin Powder 15gm Bottle 1 APPLIC TOPICAL ×2 (06:23→17:18)
[2021-01-07] MEDS: Polyethylene Glycol 3350 17 GM PACKET PO (06:23)
[2021-01-07] MEDS: Umeclidinium Bromide Inhaler 1 PUFF INHALATION (06:24)
[2021-01-07] MEDS: Fluticasone/Salmeterol 232-14 Inhaler 1 PUFF INHALATION ×2 (06:25→17:13)
[2021-01-07] MEDS: Fluticasone 0.05% 1 SPRAY NASAL.SRY 2 SPRAY NASAL (06:25)
[2021-01-07] MEDS: APIXABAN 2.5 MG TABLET PO ×2 (06:26→17:13)
[2021-01-07 06:46] LABS: Bedside Glucose 83 mg/dL (70-110)
--- NOTE | 2021-01-07 06:47 | NURSING ---
PT BREATHING WITH ACCESSORY MUSCLES THIS AM. STAT AT 89%, O2 BUMPED UP TO 4 L. HOLDING STAT AT 95%. PT COUGHING THICK CREAMY YELLOW BLOOD TINGED MUCOUS. RESP CALLED FOR TX. BS ALSO LOW THIS MORNING AT 51. OJ GIVEN, BS RECHECKED 30 MIN LATER AT 83. RN AWARE.
[2021-01-07 07:29] VITALS: O2SAT 95
[2021-01-07] MEDS: Glucerna Shake 120 ML LIQUID PO ×3 (07:58→17:13)
[2021-01-07] MEDS: Calcium Carb/Vitamin D 1 TABLET Tablet PO (07:59)
[2021-01-07] MEDS: Folic Acid 1 MG Tablet PO (07:59)
[2021-01-07] MEDS: Aspirin E.C. 81 MG Tablet PO (07:59)
[2021-01-07 09:20] VITALS: PULSE 71; RESP 18
[2021-01-07] MEDS: Albuterol 2.5 MG/3 ML VIAL.NEB. INHALATION (09:20)
[2021-01-07] MEDS: Cefdinir 300 MG Capsule PO ×2 (10:34→17:16)
[2021-01-07] MEDS: Doxycycline 100 MG CAPSULE PO ×2 (10:34→21:13)
--- NOTE | 2021-01-07 10:50 | RAD_ITS ---
STUDY: X-RAY CHEST REASON FOR EXAM: Female, 75 years old. Productive cough TECHNIQUE: PA and lateral views of the chest. COMPARISON: Comparison is made with prior study of 12/28/2020. FINDINGS: There is evidence of vascular congestion and CHF. Blunting of both cosmetic angles. There is moderate cardiac enlargement. Mitral valve replacement. Normal mediastinum and duarte. Normal visualized pulmonary arteries. There is atherosclerotic calcification of the aortic arch with tortuosity. Normal visualized thoracic spine. Normal visualized ribs, clavicles, and shoulders. There is no demonstrated abnormality of the visualized soft tissue structures of the upper abdomen. RAD/Chest PA and Lateral IMPRESSION: Cardiomegaly and CHF with blunting of both costophrenic angles. Electronically Signed: Nimesh Rogers MD at 14:56 EDT , Service support ,
--- NOTE | 2021-01-07 11:00 | CASEMGMT ---
Addendum entered by Josefina Hong 01/07/21 14:54: Daughter request for [facility] services to be utilized for home health services. Therapy is anticipating that patient will require home health services at discharge. Original Note: Social Work Plan of care meeting held. Patient present. Patient daughter present via conference call. Patient to continue with further care and treatment on the Transitional Care Unit. Patient to discharge to [facility] in [place]. Patient with next insurance update due on 01/09/2021. Will continue to follow. Sada NINO, SRINIVASAN
[2021-01-07 11:01] LABS: Bedside Glucose 164 mg/dL (70-110)
[2021-01-07] MEDS: Insulin Lispro 100 UNIT/ML INSULN.PEN SC ×2 (11:25→17:17)
--- NOTE | 2021-01-07 12:19 | MDS.RN ---
Daughter Tsering notified of resident having productive cough, CXR completed, new order for ATB
[2021-01-07 13:49] VITALS: BP 132/70; PULSE 50; RESP 16; TEMP 36.1; O2SAT 96
[2021-01-07] MEDS: oxyCODONE 5 MG Tablet PO (13:57)
[2021-01-07 16:21] LABS: Bedside Glucose 137 mg/dL (70-110)
[2021-01-07 17:14] VITALS: PULSE 57
[2021-01-07] MEDS: Atorvastatin Calcium 80 MG Tablet PO (21:13)
[2021-01-07 21:16] LABS: Bedside Glucose 222 mg/dL (70-110)
[2021-01-07] MEDS: 0.9% Saline Lock 10 ML Syringe IV (21:17)
[2021-01-08 04:27] VITALS: BP 184/68; PULSE 55; RESP 18; TEMP 36.2; O2SAT 94
[2021-01-08] MEDS: Fluticasone/Salmeterol 232-14 Inhaler 1 PUFF INHALATION ×2 (04:29→18:04)
[2021-01-08] MEDS: Fluticasone 0.05% 1 SPRAY NASAL.SRY 2 SPRAY NASAL (04:30)
[2021-01-08] MEDS: Umeclidinium Bromide Inhaler 1 PUFF INHALATION (04:30)
[2021-01-08] MEDS: Polyethylene Glycol 3350 17 GM PACKET PO (04:33)
[2021-01-08] MEDS: APIXABAN 2.5 MG TABLET PO ×2 (04:33→18:01)
[2021-01-08] MEDS: Iron Polysaccharide Complex 150 MG CAPSULE PO (04:33)
[2021-01-08 04:34] VITALS: PULSE 55
[2021-01-08] MEDS: Furosemide 40 MG Tablet PO (04:34)
[2021-01-08] MEDS: Pantoprazole Sodium 40 MG Tablet PO (04:34)
[2021-01-08] MEDS: Amiodarone 200 MG Tablet PO (04:34)
[2021-01-08] MEDS: Cyanocobalamin 500 MCG Tablet 1000 MCG PO (04:34)
[2021-01-08] MEDS: Levothyroxine 25 MCG TABLET PO (04:34)
[2021-01-08] MEDS: Metoprolol Tartrate 25 MG Tablet 12.5 MG PO ×2 (04:34→18:02)
[2021-01-08] MEDS: Pramipexole Di-HCl 1 MG Tablet PO ×2 (04:34→18:01)
[2021-01-08] MEDS: Cefdinir 300 MG Capsule PO ×2 (04:34→17:59)
[2021-01-08] MEDS: Senna/Docusate Sodium 1 Tablet PO ×2 (04:34→17:59)
[2021-01-08] MEDS: Paroxetine 20 MG Tablet 40 MG PO (04:34)
[2021-01-08] MEDS: oxyCODONE 5 MG Tablet PO ×3 (04:35→23:33)
[2021-01-08] MEDS: Nystatin Powder 15gm Bottle 1 APPLIC TOPICAL ×2 (04:37→18:00)
[2021-01-08 06:35] LABS: Bedside Glucose 143 mg/dL (70-110)
[2021-01-08 07:17] LABS: Absolute Neutrophil Count 9.3 X10^3/uL (2.0-7.7); Eosinophil# 0.06 X10^3/uL; Eosinophils% 0.5 % (0-5); Hematocrit 30.2 % (37-47); Hemoglobin 8.7 g/dL (12.0-15.0); Lymphocyte % 7.2 % (19-41); Mean Corp Hgb Conc 28.8 g/dL (32-36); Mean Corpuscular Hgb 25.7 pg (27.0-32.0); Mean Corpuscular Volume 89.3 fL (81-99); Mean Platelet Vol. 11.6 fl (6.2-12.0); Monocyte# 0.85 X10^3/uL; Monocyte% 7.7 % (0-10); NRBC Flagged by Analyzer 0.2 % (0-5); Neutrophil # 9.29 X10^3/uL (2.7-7.7); POSITIVE MORPHOLOGY YES; Platelet Count 203 K/mm3 (150-450); RBC Distribution Width CV 21.9 % (11.6-14.6); RBC Distribution Width SD 68.7 fl (35.1-43.9); Red Blood Count 3.38 M/mm3 (4.2-5.4); White Blood Count 11.1 K/mm3 (4.4-11.0)
[2021-01-08 07:19] LABS: Differential Indicated SCAN CRITERIA MET
[2021-01-08 07:34] LABS: Hypochromasia RARE
[2021-01-08 07:38] LABS: Anion Gap 1 (5-15); BUN 46 mg/dL (7-18); BUN/Creat Ratio 33.6 RATIO (10-20); Calcium,Total 8.4 mg/dL (8.5-10.1); Chloride 104 mmol/L (98-107); Creatinine, Serum 1.37 mg/dL (0.55-1.02); EST Glomerular Filtration Rate 40 mL/min (>60); Est Glom Filt Rate - Afr Amer 48 mL/min (>60); Estimated Creatinine Clearance 25.88 ml/min; Glucose 130 mg/dL (74-106); Potassium 3.9 mmol/L (3.5-5.1); Sodium Level 141 mmol/L (136-145)
[2021-01-08] MEDS: Aspirin E.C. 81 MG Tablet PO (07:57)
[2021-01-08] MEDS: Folic Acid 1 MG Tablet PO (07:57)
[2021-01-08] MEDS: Calcium Carb/Vitamin D 1 TABLET Tablet PO (07:57)
[2021-01-08] MEDS: Acetaminophen 500 MG Tablet 1000 MG PO (07:57)
[2021-01-08] MEDS: Insulin Lispro 100 UNIT/ML INSULN.PEN SC ×3 (07:58→17:55)
[2021-01-08] MEDS: Glucerna Shake 120 ML LIQUID PO ×3 (08:02→17:53)
[2021-01-08] MEDS: Doxycycline 100 MG CAPSULE PO ×2 (09:22→21:30)
[2021-01-08 11:16] LABS: Bedside Glucose 218 mg/dL (70-110)
--- NOTE | 2021-01-08 12:50 | PT ---
Pt was on 3L of O2. When SPO2 checked it was 88% with pt supine. Pt was increased to 4L of O2. SPO2 increased to 91%.
[2021-01-08] MEDS: 0.9% Saline Lock 10 ML Syringe IV (13:06)
[2021-01-08 13:32] VITALS: BP 149/58; PULSE 56; RESP 18; TEMP 36.2; O2SAT 94
[2021-01-08 16:30] LABS: Bedside Glucose 192 mg/dL (70-110)
--- NOTE | 2021-01-08 16:51 | CHAPLAIN ---
Type of Pastoral Visit ___ Initial Visit _x__ Follow-up Visit ___ On-call Visit ___ General Patient Visit ___ Spiritual Assessment ___ Family Conference ___ Bereavement ___ Rapid Response ___ Code Blue ___ Other (describe below) Pastoral Care Referral From _x__ Patient ___ Family ___ Nurse ___ Physician ___ Field Health Officer ___ Tooth Clerk ___ Other (describe below) Sacrament/Intervention _x__ Active listening ___ Anointing ___ Oriental Orthodox ___ Bereavement ___ Communion ___ Roslyn exploration ___ ___ Life review _x__ Prayer ___ Reconciliation ___ Sacrament of Sick _x__ Supportive presence ___ Wedding ___ Other (describe below) Pastoral Comments
[2021-01-08 18:02] VITALS: BP 159/68; PULSE 54
[2021-01-08 18:03] VITALS: BP 159/68; PULSE 54
[2021-01-08] MEDS: Atorvastatin Calcium 80 MG Tablet PO (21:31)
[2021-01-08 21:40] LABS: Bedside Glucose 268 mg/dL (70-110)
[2021-01-09 05:00] VITALS: BP 167/70; PULSE 49; RESP 18; TEMP 36.5; O2SAT 91
[2021-01-09] MEDS: Umeclidinium Bromide Inhaler 1 PUFF INHALATION (05:26)
[2021-01-09] MEDS: Fluticasone/Salmeterol 232-14 Inhaler 1 PUFF INHALATION ×2 (05:26→17:35)
[2021-01-09] MEDS: Fluticasone 0.05% 1 SPRAY NASAL.SRY 2 SPRAY NASAL (05:27)
[2021-01-09] MEDS: Amiodarone 200 MG Tablet PO (05:28)
[2021-01-09] MEDS: Furosemide 40 MG Tablet PO (05:28)
[2021-01-09] MEDS: Cefdinir 300 MG Capsule PO (05:28)
[2021-01-09] MEDS: Polyethylene Glycol 3350 17 GM PACKET PO (05:28)
[2021-01-09] MEDS: APIXABAN 2.5 MG TABLET PO ×2 (05:28→17:32)
[2021-01-09] MEDS: Paroxetine 20 MG Tablet 40 MG PO (05:28)
[2021-01-09 05:29] VITALS: BP 167/70; PULSE 49
[2021-01-09] MEDS: Pantoprazole Sodium 40 MG Tablet PO (05:29)
[2021-01-09] MEDS: Cyanocobalamin 500 MCG Tablet 1000 MCG PO (05:29)
[2021-01-09] MEDS: Pramipexole Di-HCl 1 MG Tablet PO ×2 (05:29→17:33)
[2021-01-09] MEDS: Senna/Docusate Sodium 1 Tablet PO ×2 (05:29→17:34)
[2021-01-09] MEDS: Metoprolol Tartrate 25 MG Tablet 12.5 MG PO ×2 (05:29→17:33)
[2021-01-09] MEDS: Iron Polysaccharide Complex 150 MG CAPSULE PO (05:29)
[2021-01-09] MEDS: Menthol/Lanolin/Calamine/Znox 113 GM Tube 1 APPLIC TOPICAL ×2 (05:29→17:32)
[2021-01-09] MEDS: Levothyroxine 25 MCG TABLET PO (05:29)
[2021-01-09] MEDS: Nystatin Powder 15gm Bottle 1 APPLIC TOPICAL ×2 (05:30→17:32)
[2021-01-09] MEDS: Glucerna Shake 120 ML LIQUID PO ×3 (06:00→17:31)
[2021-01-09 06:20] LABS: Bedside Glucose 82 mg/dL (70-110)
[2021-01-09] MEDS: Insulin Lispro 100 UNIT/ML INSULN.PEN SC ×3 (07:54→17:34)
[2021-01-09] MEDS: Aspirin E.C. 81 MG Tablet PO (07:55)
[2021-01-09] MEDS: Calcium Carb/Vitamin D 1 TABLET Tablet PO (07:55)
[2021-01-09] MEDS: Folic Acid 1 MG Tablet PO (07:55)
[2021-01-09] MEDS: Doxycycline 100 MG CAPSULE PO ×2 (09:16→20:47)
[2021-01-09] MEDS: 0.9% Saline Lock 10 ML Syringe IV ×2 (09:58→20:44)
[2021-01-09 10:00] VITALS: O2SAT 91
--- NOTE | 2021-01-09 10:00 | PT ---
Pt was SOB after transfers and needed frequent rest breaks. She c/o dizziness after standing for several minutes. Pt's BP was 138/58 when seated and SPO2 was at 94% while on 4L of O2. When standing pt's BP was 144/54 and SPO2 was 86%. After standing x 3 min, her BP was 163/80 and SPO2 was 86% while on 4L of O2. Once seated, pt's SPO2 increased to 91% while on 4L of O2. Reported to DRAPERY SUPERVISOR.
[2021-01-09 11:06] LABS: Bedside Glucose 196 mg/dL (70-110)
[2021-01-09 14:04] VITALS: BP 141/64; PULSE 54; RESP 18; TEMP 36.5; O2SAT 96
[2021-01-09 16:21] LABS: Bedside Glucose 125 mg/dL (70-110)
[2021-01-09 17:33] VITALS: PULSE 57
[2021-01-09] MEDS: Atorvastatin Calcium 80 MG Tablet PO (20:45)
[2021-01-09] MEDS: Acetaminophen 500 MG Tablet 1000 MG PO (20:52)
[2021-01-09 21:21] LABS: Bedside Glucose 184 mg/dL (70-110)
[2021-01-10] VITALS (7 sets, daily range): BP systolic 147–160; BP diastolic 63–64; PULSE 52–82; RESP 18; TEMP 36.2–36.6; O2SAT 93–97
[2021-01-10] MEDS: Fluticasone 0.05% 1 SPRAY NASAL.SRY 2 SPRAY NASAL (05:53)
[2021-01-10] MEDS: Fluticasone/Salmeterol 232-14 Inhaler 1 PUFF INHALATION ×2 (05:54→17:40)
[2021-01-10] MEDS: Cyanocobalamin 500 MCG Tablet 1000 MCG PO (05:55)
[2021-01-10] MEDS: Furosemide 40 MG Tablet PO (05:55)
[2021-01-10] MEDS: Pantoprazole Sodium 40 MG Tablet PO (05:55)
[2021-01-10] MEDS: Amiodarone 200 MG Tablet PO (05:56)
[2021-01-10] MEDS: Paroxetine 20 MG Tablet 40 MG PO (05:56)
[2021-01-10] MEDS: Pramipexole Di-HCl 1 MG Tablet PO ×2 (05:56→17:43)
[2021-01-10] MEDS: Senna/Docusate Sodium 1 Tablet PO ×2 (05:56→17:42)
[2021-01-10] MEDS: APIXABAN 2.5 MG TABLET PO ×2 (05:57→17:40)
[2021-01-10] MEDS: Iron Polysaccharide Complex 150 MG CAPSULE PO (05:57)
[2021-01-10] MEDS: Polyethylene Glycol 3350 17 GM PACKET PO (05:57)
[2021-01-10] MEDS: Cefdinir 300 MG Capsule PO (05:57)
[2021-01-10] MEDS: Menthol/Lanolin/Calamine/Znox 113 GM Tube 1 APPLIC TOPICAL ×2 (05:58→17:38)
[2021-01-10] MEDS: Nystatin Powder 15gm Bottle 1 APPLIC TOPICAL ×2 (05:59→17:46)
[2021-01-10] MEDS: Levothyroxine 25 MCG TABLET PO (06:00)
[2021-01-10 06:16] LABS: Bedside Glucose 113 mg/dL (70-110)
--- NOTE | 2021-01-10 06:40 | NURSING ---
Brief changed. Pericare completed. Calmospetine applied to gluteal folds and Nystatin powder to groin. Positioned in bed for comfort. PA in place. Call light w/ in reach.
[2021-01-10] MEDS: Umeclidinium Bromide Inhaler 1 PUFF INHALATION (08:04)
[2021-01-10] MEDS: Insulin Lispro 100 UNIT/ML INSULN.PEN SC ×3 (08:07→17:39)
[2021-01-10 08:09] LABS: Hematocrit 30.6 % (37-47); Hemoglobin 8.5 g/dL (12.0-15.0)
[2021-01-10] MEDS: Folic Acid 1 MG Tablet PO (08:09)
[2021-01-10] MEDS: Aspirin E.C. 81 MG Tablet PO (08:09)
[2021-01-10] MEDS: Calcium Carb/Vitamin D 1 TABLET Tablet PO (08:10)
[2021-01-10] MEDS: Glucerna Shake 120 ML LIQUID PO ×3 (08:13→17:37)
[2021-01-10] MEDS: oxyCODONE 5 MG Tablet PO ×2 (08:13→20:53)
[2021-01-10] MEDS: Albuterol 2.5 MG/3 ML VIAL.NEB. INHALATION (09:53)
[2021-01-10] MEDS: Doxycycline 100 MG CAPSULE PO ×2 (10:25→20:53)
[2021-01-10] MEDS: 0.9% Saline Lock 10 ML Syringe IV ×2 (10:36→20:54)
[2021-01-10 11:06] LABS: Bedside Glucose 126 mg/dL (70-110)
[2021-01-10 16:30] LABS: Bedside Glucose 150 mg/dL (70-110)
[2021-01-10] MEDS: Metoprolol Tartrate 25 MG Tablet 12.5 MG PO (17:42)
[2021-01-10] MEDS: Atorvastatin Calcium 80 MG Tablet PO (20:53)
[2021-01-10 21:25] LABS: Bedside Glucose 159 mg/dL (70-110)
[2021-01-11 05:00] VITALS: BP 156/71; PULSE 55; RESP 18; TEMP 36.4; O2SAT 98
[2021-01-11] MEDS: Umeclidinium Bromide Inhaler 1 PUFF INHALATION (05:23)
[2021-01-11] MEDS: Fluticasone 0.05% 1 SPRAY NASAL.SRY 2 SPRAY NASAL (05:23)
[2021-01-11] MEDS: Fluticasone/Salmeterol 232-14 Inhaler 1 PUFF INHALATION ×2 (05:24→17:52)
[2021-01-11] MEDS: Menthol/Lanolin/Calamine/Znox 113 GM Tube 1 APPLIC TOPICAL ×2 (05:24→17:52)
[2021-01-11] MEDS: Nystatin Powder 15gm Bottle 1 APPLIC TOPICAL ×2 (05:25→17:50)
[2021-01-11] MEDS: Polyethylene Glycol 3350 17 GM PACKET PO (05:25)
[2021-01-11 05:26] VITALS: BP 156/71; PULSE 55
[2021-01-11] MEDS: APIXABAN 2.5 MG TABLET PO ×2 (05:26→17:52)
[2021-01-11] MEDS: Pramipexole Di-HCl 1 MG Tablet PO ×2 (05:26→17:50)
[2021-01-11] MEDS: Senna/Docusate Sodium 1 Tablet PO ×2 (05:26→17:50)
[2021-01-11] MEDS: Amiodarone 200 MG Tablet PO (05:26)
[2021-01-11] MEDS: Metoprolol Tartrate 25 MG Tablet 12.5 MG PO ×2 (05:26→17:54)
[2021-01-11] MEDS: Iron Polysaccharide Complex 150 MG CAPSULE PO (05:26)
[2021-01-11] MEDS: Paroxetine 20 MG Tablet 40 MG PO (05:26)
[2021-01-11] MEDS: Cyanocobalamin 500 MCG Tablet 1000 MCG PO (05:26)
[2021-01-11] MEDS: Furosemide 40 MG Tablet PO (05:26)
[2021-01-11] MEDS: Cefdinir 300 MG Capsule PO (05:26)
[2021-01-11] MEDS: Pantoprazole Sodium 40 MG Tablet PO (05:26)
[2021-01-11] MEDS: Levothyroxine 25 MCG TABLET PO (05:26)
[2021-01-11 06:16] LABS: Bedside Glucose 121 mg/dL (70-110)
[2021-01-11 07:27] VITALS: O2SAT 95
[2021-01-11] MEDS: Glucerna Shake 120 ML LIQUID PO ×3 (07:59→17:46)
[2021-01-11] MEDS: Insulin Lispro 100 UNIT/ML INSULN.PEN SC ×3 (08:00→17:47)
[2021-01-11] MEDS: Aspirin E.C. 81 MG Tablet PO (08:03)
[2021-01-11] MEDS: Calcium Carb/Vitamin D 1 TABLET Tablet PO (08:03)
[2021-01-11] MEDS: Folic Acid 1 MG Tablet PO (08:03)
[2021-01-11] MEDS: oxyCODONE 5 MG Tablet PO ×2 (08:07→17:58)
[2021-01-11 10:00] VITALS: PULSE 64; RESP 18; O2SAT 93
[2021-01-11] MEDS: 0.9% Saline Lock 10 ML Syringe IV (10:00)
[2021-01-11] MEDS: Doxycycline 100 MG CAPSULE PO (10:00)
[2021-01-11 11:20] LABS: Bedside Glucose 128 mg/dL (70-110)
[2021-01-11 14:29] VITALS: BP 132/53; PULSE 54; RESP 20; TEMP 36.7; O2SAT 95
[2021-01-11 16:31] LABS: Bedside Glucose 134 mg/dL (70-110)
[2021-01-11 17:54] VITALS: BP 132/53; PULSE 57
[2021-01-11] MEDS: Atorvastatin Calcium 80 MG Tablet PO (19:30)
[2021-01-11 21:35] LABS: Bedside Glucose 133 mg/dL (70-110)
[2021-01-12 05:00] VITALS: BP 155/46; PULSE 51; RESP 18; TEMP 36.6; O2SAT 95
[2021-01-12] MEDS: Polyethylene Glycol 3350 17 GM PACKET PO (05:29)
[2021-01-12] MEDS: Senna/Docusate Sodium 1 Tablet PO ×2 (05:29→17:05)
[2021-01-12] MEDS: Pramipexole Di-HCl 1 MG Tablet PO ×2 (05:29→17:05)
[2021-01-12] MEDS: Cyanocobalamin 500 MCG Tablet 1000 MCG PO (05:29)
[2021-01-12] MEDS: Pantoprazole Sodium 40 MG Tablet PO (05:29)
[2021-01-12 05:30] VITALS: BP 155/46; PULSE 51
[2021-01-12] MEDS: APIXABAN 2.5 MG TABLET PO ×2 (05:30→17:04)
[2021-01-12] MEDS: Furosemide 40 MG Tablet PO (05:30)
[2021-01-12] MEDS: Iron Polysaccharide Complex 150 MG CAPSULE PO (05:30)
[2021-01-12] MEDS: Amiodarone 200 MG Tablet PO (05:30)
[2021-01-12] MEDS: Metoprolol Tartrate 25 MG Tablet 12.5 MG PO ×2 (05:30→17:04)
[2021-01-12] MEDS: Paroxetine 20 MG Tablet 40 MG PO (05:30)
[2021-01-12] MEDS: Levothyroxine 25 MCG TABLET PO (05:30)
[2021-01-12] MEDS: Umeclidinium Bromide Inhaler 1 PUFF INHALATION (05:32)
[2021-01-12] MEDS: Fluticasone 0.05% 1 SPRAY NASAL.SRY 2 SPRAY NASAL (05:32)
[2021-01-12] MEDS: Nystatin Powder 15gm Bottle 1 APPLIC TOPICAL ×2 (05:32→17:07)
[2021-01-12] MEDS: Fluticasone/Salmeterol 232-14 Inhaler 1 PUFF INHALATION ×2 (05:32→17:05)
[2021-01-12] MEDS: Menthol/Lanolin/Calamine/Znox 113 GM Tube 1 APPLIC TOPICAL ×2 (05:32→17:03)
[2021-01-12 06:26] LABS: Bedside Glucose 125 mg/dL (70-110)
[2021-01-12] MEDS: Glucerna Shake 120 ML LIQUID PO ×3 (06:32→17:03)
[2021-01-12 07:25] VITALS: O2SAT 95
[2021-01-12] MEDS: Insulin Lispro 100 UNIT/ML INSULN.PEN SC ×3 (07:52→17:03)
[2021-01-12] MEDS: Folic Acid 1 MG Tablet PO (07:53)
[2021-01-12] MEDS: Calcium Carb/Vitamin D 1 TABLET Tablet PO (07:53)
[2021-01-12] MEDS: Aspirin E.C. 81 MG Tablet PO (07:53)
[2021-01-12 08:45] VITALS: PULSE 50; O2SAT 89
[2021-01-12 11:15] LABS: Bedside Glucose 166 mg/dL (70-110)
[2021-01-12 13:51] VITALS: BP 150/54; PULSE 90; RESP 16; TEMP 36.3; O2SAT 95
[2021-01-12] MEDS: oxyCODONE 5 MG Tablet PO (14:50)
[2021-01-12 16:16] LABS: Bedside Glucose 189 mg/dL (70-110)
[2021-01-12 17:04] VITALS: PULSE 90
[2021-01-12] MEDS: 0.9% Saline Lock 10 ML Syringe IV (17:08)
[2021-01-12 21:36] LABS: Bedside Glucose 202 mg/dL (70-110)
[2021-01-12] MEDS: Atorvastatin Calcium 80 MG Tablet PO (21:37)
[2021-01-13 05:00] VITALS: BP 155/53; PULSE 52; RESP 18; TEMP 36.6; O2SAT 95
[2021-01-13 05:42] VITALS: BP 155/53; PULSE 52
[2021-01-13] MEDS: Paroxetine 20 MG Tablet 40 MG PO (05:42)
[2021-01-13] MEDS: Pantoprazole Sodium 40 MG Tablet PO (05:42)
[2021-01-13] MEDS: Levothyroxine 25 MCG TABLET PO (05:42)
[2021-01-13] MEDS: Metoprolol Tartrate 25 MG Tablet 12.5 MG PO ×2 (05:42→17:41)
[2021-01-13] MEDS: Amiodarone 200 MG Tablet PO (05:43)
[2021-01-13] MEDS: Pramipexole Di-HCl 1 MG Tablet PO ×2 (05:43→17:39)
[2021-01-13] MEDS: Senna/Docusate Sodium 1 Tablet PO ×2 (05:43→17:40)
[2021-01-13] MEDS: APIXABAN 2.5 MG TABLET PO ×2 (05:44→17:39)
[2021-01-13] MEDS: Furosemide 40 MG Tablet PO (05:44)
[2021-01-13] MEDS: Fluticasone 0.05% 1 SPRAY NASAL.SRY 2 SPRAY NASAL (05:44)
[2021-01-13] MEDS: Menthol/Lanolin/Calamine/Znox 113 GM Tube 1 APPLIC TOPICAL ×2 (05:44→17:38)
[2021-01-13] MEDS: Fluticasone/Salmeterol 232-14 Inhaler 1 PUFF INHALATION ×2 (05:44→17:40)
[2021-01-13] MEDS: Nystatin Powder 15gm Bottle 1 APPLIC TOPICAL ×2 (05:44→17:40)
[2021-01-13] MEDS: Umeclidinium Bromide Inhaler 1 PUFF INHALATION (05:44)
[2021-01-13] MEDS: Cyanocobalamin 500 MCG Tablet 1000 MCG PO (05:44)
[2021-01-13] MEDS: Polyethylene Glycol 3350 17 GM PACKET PO (05:44)
[2021-01-13] MEDS: Iron Polysaccharide Complex 150 MG CAPSULE PO (05:44)
[2021-01-13] MEDS: Glucerna Shake 120 ML LIQUID PO ×3 (05:45→17:37)
[2021-01-13] MEDS: oxyCODONE 5 MG Tablet PO (05:52)
[2021-01-13 06:16] LABS: Bedside Glucose 175 mg/dL (70-110)
[2021-01-13 06:50] VITALS: O2SAT 98
[2021-01-13] MEDS: Aspirin E.C. 81 MG Tablet PO (08:05)
[2021-01-13] MEDS: Folic Acid 1 MG Tablet PO (08:05)
[2021-01-13] MEDS: Insulin Lispro 100 UNIT/ML INSULN.PEN SC ×3 (08:05→17:38)
[2021-01-13] MEDS: Calcium Carb/Vitamin D 1 TABLET Tablet PO (08:05)
[2021-01-13 10:00] VITALS: PULSE 58; RESP 18; O2SAT 93
--- NOTE | 2021-01-13 10:04 | PT ---
Pt was on 4L of O2. With ambulation, pt's SPO2 decreased to 79%, but increased to 94% once seated. With static standing, pt's SPO2 decreased to 86%, but then increased to 94% once seated. Pt stated she does feel dizzy when standing due to low O2. Reported to SOLUTION ENGINEER.
[2021-01-13 10:50] LABS: Bedside Glucose 227 mg/dL (70-110)
[2021-01-13] MEDS: 0.9% Saline Lock 10 ML Syringe IV ×2 (11:42→20:15)
--- NOTE | 2021-01-13 11:43 | MDS.RN ---
Information for the mds was obtained from review of the clinical record, interview of resident, staff, and direct observation of resident's care.
[2021-01-13 14:14] VITALS: BP 147/72; PULSE 58; RESP 18; TEMP 36.3; O2SAT 93
[2021-01-13 16:30] LABS: Bedside Glucose 141 mg/dL (70-110)
[2021-01-13 17:41] VITALS: BP 147/72; PULSE 58
[2021-01-13] MEDS: Atorvastatin Calcium 80 MG Tablet PO (20:16)
[2021-01-13 21:26] LABS: Bedside Glucose 170 mg/dL (70-110)
--- NOTE | 2021-01-13 23:55 | NURSING ---
Addendum entered by Quin Lobato 01/14/21 04:21: Respiratory came up and gave patient a breathing treatment and communicated that patient might have sleep apnea. States, patient has been waking up around the same time stating SOB. Respiratory states patient states she has a bipap at home that she uses and he would like for me to ask the doctor for a order for a bipap at . Add to Dr.Kwok reyna. Original Note: Patient called requesting breathing treatment do to SOB this nurse went into room and patient was sitting at the side of bed. Assess lungs anterior and posterior clear. Patient started coughing it was a moderate amount clear, white, and thin. SpO2 92% via nasal cannula oxygen 4L. Called respiratory and requested a breathing treatment.
[2021-01-14] VITALS (8 sets, daily range): BP systolic 105–116; BP diastolic 57–84; PULSE 50–102; RESP 12–22; TEMP 36.6–36.8; O2SAT 92–96
[2021-01-14] MEDS: Albuterol 2.5 MG/3 ML VIAL.NEB. INHALATION (00:09)
[2021-01-14] MEDS: Fluticasone/Salmeterol 232-14 Inhaler 1 PUFF INHALATION ×2 (05:32→17:39)
[2021-01-14] MEDS: Cyanocobalamin 500 MCG Tablet 1000 MCG PO (05:33)
[2021-01-14] MEDS: Fluticasone 0.05% 1 SPRAY NASAL.SRY 2 SPRAY NASAL (05:33)
[2021-01-14] MEDS: Pramipexole Di-HCl 1 MG Tablet PO ×2 (05:34→17:40)
[2021-01-14] MEDS: Pantoprazole Sodium 40 MG Tablet PO (05:34)
[2021-01-14] MEDS: Levothyroxine 25 MCG TABLET PO (05:34)
[2021-01-14] MEDS: Furosemide 40 MG Tablet PO (05:34)
[2021-01-14] MEDS: Polyethylene Glycol 3350 17 GM PACKET PO (05:34)
[2021-01-14] MEDS: Senna/Docusate Sodium 1 Tablet PO ×2 (05:34→17:39)
[2021-01-14] MEDS: Paroxetine 20 MG Tablet 40 MG PO (05:34)
[2021-01-14] MEDS: Amiodarone 200 MG Tablet PO (05:34)
[2021-01-14] MEDS: APIXABAN 2.5 MG TABLET PO ×2 (05:35→17:35)
[2021-01-14] MEDS: Iron Polysaccharide Complex 150 MG CAPSULE PO (05:35)
[2021-01-14] MEDS: 0.9% Saline Lock 10 ML Syringe IV ×2 (05:37→17:38)
[2021-01-14] MEDS: Umeclidinium Bromide Inhaler 1 PUFF INHALATION (05:37)
[2021-01-14] MEDS: Menthol/Lanolin/Calamine/Znox 113 GM Tube 1 APPLIC TOPICAL ×2 (05:38→17:38)
[2021-01-14] MEDS: Nystatin Powder 15gm Bottle 1 APPLIC TOPICAL ×2 (05:38→17:39)
[2021-01-14 06:20] LABS: Bedside Glucose 151 mg/dL (70-110)
[2021-01-14] MEDS: Calcium Carb/Vitamin D 1 TABLET Tablet PO (07:54)
[2021-01-14] MEDS: Folic Acid 1 MG Tablet PO (07:54)
[2021-01-14] MEDS: Aspirin E.C. 81 MG Tablet PO (07:54)
[2021-01-14] MEDS: Glucerna Shake 120 ML LIQUID PO ×3 (07:55→17:35)
[2021-01-14] MEDS: Insulin Lispro 100 UNIT/ML INSULN.PEN SC ×3 (07:55→17:36)
[2021-01-14 11:35] LABS: Bedside Glucose 175 mg/dL (70-110)
[2021-01-14 16:45] LABS: Bedside Glucose 129 mg/dL (70-110)
[2021-01-14] MEDS: Metoprolol Tartrate 25 MG Tablet 12.5 MG PO (17:41)
[2021-01-14] MEDS: Atorvastatin Calcium 80 MG Tablet PO (21:24)
[2021-01-14 21:51] LABS: Bedside Glucose 196 mg/dL (70-110)
--- NOTE | 2021-01-14 22:42 | NURSING ---
This nurse heard a alarm coming from the bipap went in room to assess and notice patient had taken bipap off. Patient states, I feel like i'm not receiving oxygen with this thing on. Patient refused putting bipap back on has nasal cannula via 2L oxygen and SpO2 93%. Call light within reach will continue to monitor patient during this shift.
--- NOTE | 2021-01-14 22:43 | CPS ---
pt removed mask and stated she wanted to just wear her oxygen
[2021-01-15] VITALS (17 sets, daily range): BP systolic 123–160; BP diastolic 40–74; PULSE 50–64; RESP 16–20; TEMP 35.9–36.9; O2SAT 90–98
[2021-01-15] MEDS: Umeclidinium Bromide Inhaler 1 PUFF INHALATION (05:51)
[2021-01-15] MEDS: Fluticasone 0.05% 1 SPRAY NASAL.SRY 2 SPRAY NASAL (05:51)
[2021-01-15] MEDS: Polyethylene Glycol 3350 17 GM PACKET PO (05:52)
[2021-01-15] MEDS: Pramipexole Di-HCl 1 MG Tablet PO ×2 (05:53→17:47)
[2021-01-15] MEDS: Pantoprazole Sodium 40 MG Tablet PO (05:53)
[2021-01-15] MEDS: Levothyroxine 25 MCG TABLET PO (05:53)
[2021-01-15] MEDS: Paroxetine 20 MG Tablet 40 MG PO (05:53)
[2021-01-15] MEDS: Metoprolol Tartrate 25 MG Tablet 12.5 MG PO (05:53)
[2021-01-15] MEDS: Amiodarone 200 MG Tablet PO (05:53)
[2021-01-15] MEDS: Senna/Docusate Sodium 1 Tablet PO ×2 (05:53→17:47)
[2021-01-15] MEDS: APIXABAN 2.5 MG TABLET PO ×2 (05:53→17:44)
[2021-01-15] MEDS: Cyanocobalamin 500 MCG Tablet 1000 MCG PO (05:53)
[2021-01-15] MEDS: Fluticasone/Salmeterol 232-14 Inhaler 1 PUFF INHALATION ×2 (05:55→17:47)
[2021-01-15] MEDS: Iron Polysaccharide Complex 150 MG CAPSULE PO (05:56)
[2021-01-15] MEDS: 0.9% Saline Lock 10 ML Syringe IV ×2 (05:57→19:44)
[2021-01-15] MEDS: Menthol/Lanolin/Calamine/Znox 113 GM Tube 1 APPLIC TOPICAL ×2 (06:00→17:44)
[2021-01-15] MEDS: Nystatin Powder 15gm Bottle 1 APPLIC TOPICAL ×2 (06:01→17:47)
[2021-01-15] MEDS: Furosemide 40 MG Tablet PO (06:03)
[2021-01-15 06:16] LABS: Bedside Glucose 158 mg/dL (70-110)
[2021-01-15 06:36] LABS: Absolute Lymphocyte Count 1.51 X10^3/uL (0.83-4.51); Basophil# 0.02 X10^3/uL; Basophil% 0.2 % (0-1); Eosinophil# 0.04 X10^3/uL; Eosinophils% 0.5 % (0-5); Hematocrit 23.9 % (37-47); Hemoglobin 6.6 g/dL (12.0-15.0); Lymphocyte # 1.51 X10^3/ul (4.0); Lymphocyte % 18.3 % (19-41); Mean Corp Hgb Conc 27.6 g/dL (32-36); Mean Corpuscular Volume 90.5 fL (81-99); Monocyte# 0.69 X10^3/uL; Monocyte% 8.3 % (0-10); NRBC Flagged by Analyzer 0 % (0-5); Neutrophil # 5.96 X10^3/uL (2.7-7.7); Neutrophil % 72.1 % (47-70); POSITIVE COUNT YES; POSITIVE MORPHOLOGY YES; Platelet Count 76 K/mm3 (150-450); RBC Distribution Width SD 72.2 fl (35.1-43.9); Red Blood Count 2.64 M/mm3 (4.2-5.4); White Blood Count 8.3 K/mm3 (4.4-11.0)
[2021-01-15 06:40] LABS: Differential Indicated SCAN CRITERIA MET
[2021-01-15 07:05] LABS: Anion Gap 5 (5-15); BUN 47 mg/dL (7-18); BUN/Creat Ratio 34.8 RATIO (10-20); Calcium,Total 8.6 mg/dL (8.5-10.1); Chloride 104 mmol/L (98-107); Creatinine, Serum 1.35 mg/dL (0.55-1.02); EST Glomerular Filtration Rate 41 mL/min (>60); Est Glom Filt Rate - Afr Amer 49 mL/min (>60); Estimated Creatinine Clearance 26.26 ml/min; Glucose 170 mg/dL (74-106); Potassium 4.1 mmol/L (3.5-5.1); Sodium Level 140 mmol/L (136-145)
[2021-01-15] MEDS: Glucerna Shake 120 ML LIQUID PO ×3 (08:07→17:41)
[2021-01-15] MEDS: Insulin Lispro 100 UNIT/ML INSULN.PEN SC ×3 (08:08→17:43)
[2021-01-15] MEDS: Calcium Carb/Vitamin D 1 TABLET Tablet PO (08:09)
[2021-01-15] MEDS: Aspirin E.C. 81 MG Tablet PO (08:09)
[2021-01-15] MEDS: Folic Acid 1 MG Tablet PO (08:09)
--- NOTE | 2021-01-15 09:31 | NURSING ---
order for PRBC transfusion faxed to infusion center. infusion scheduled for 01/16/21 @ 0800
--- NOTE | 2021-01-15 09:51 | CON.PCM_ITS ---
Problem List (1) Anemia Status: Chronic Reason for Consult Date of Consultation: 01/15/21 Reason for Consultation: Acute on chronic anemia. History of Present Illness: The patient is a 75 year old F who is currently on the transitional care unit (TCU) for strengthening and rehabilitation. Patient stated she had stubbed her toes back in mid November and noted increased pain and redness radiating up her leg. She presented to the ED where she was admitted. She was then discharged to TCU. On 12/28, a rapid response was called on the patient and she was sent to the ED due to altered mental status and angioedema possibly due to antibiotics. She was intubated and extubated the following day. She was subsequently discharged back to the TCU. She notes a history of anemia. She states she has had multiple blood transfusions. She notes having 2 units of PRBC last month. She notes having dark/black sticky stools however she says this is her normal. She denies bright red blod per rectum. She states she is having normal consistency bowel movements. Her last upper and lower scope was last year in [place]. She states she had some polyps removed. She notes her mother had colon cancer and one of her daughters from complication of Crohn's disease. She notes despite being on omeprazole at home she continues to have reflux symptoms. She is on Eliquis and aspirin at home. She notes having an aortic valve replacement approximately 4 years ago and has been on Eliquis since that time. 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 She is on 4 L of oxygen via nasal canula at home. Her hemoglobin has decreased from 9.9 on 01/01 to 6.6 on 01/15. Past Medical History Past Medical History (Chronic Problems): Chronic Problems (Last Reviewed 12/10/20 @ 11:[address] Brown Vargas MD) Other specified peripheral vascular diseases (Chronic) Non-pressure chronic ulcer of other part of left foot with fat layer exposed (Chronic) Chronic ulcer of great toe of right foot with fat layer exposed (Chronic) Fracture of right great toe (Chronic) Depression (Chronic) Peripheral arterial occlusive disease (Chronic) Diabetic polyneuropathy (Chronic) Atrial fibrillation (Chronic) Hypertension (Chronic) Hypokalemia (Chronic) Osteoporosis (Chronic) Gastroesophageal reflux disease (Chronic) Insomnia (Chronic) Obesity (Chronic) Acute on chronic diastolic CHF (congestive heart failure) (Chronic) COPD exacerbation (Chronic) Diabetes (Chronic) Toxic multinodular goiter (Chronic) Polyneuropathy due to type 2 diabetes mellitus (Chronic) COPD (chronic obstructive pulmonary disease) (Chronic) Acute on chronic respiratory failure with hypoxia (Chronic) Paroxysmal atrial fibrillation (Chronic) Anemia (Chronic) Non-rheumatic aortic stenosis (Chronic) H/O aortic valve replacement (Chronic 12/03/16) TAVR: 23 mm Guillaume-Sapiens S3 valve 12/03/2016 Chronic diastolic heart failure (Chronic) Left carotid artery stenosis (Chronic) Right bundle branch block (RBBB) (Chronic) Hyperlipidemia (Chronic) Essential (primary) hypertension (Chronic) Medical History: Medical History (Last Reviewed 01/15/21 @ 10:06 by Cora DUNBAR PA-C) Paroxysmal atrial fibrillation (Chronic) I48.0 Anemia (Chronic) D64.9 Non-rheumatic aortic stenosis (Chronic) I35.0 Chronic diastolic heart failure (Chronic) I50.32 Left carotid artery stenosis (Chronic) I65.22 Right bundle branch block (RBBB) (Chronic) I45.10 Hyperlipidemia (Chronic) E78.5 Essential (primary) hypertension (Chronic) I10 Type 2 diabetes mellitus E11.9 Anxiety F41.9 Arthritis M19.90 Asthma J45.909 Breast lump N63.0 COPD (chronic obstructive pulmonary disease) J44.9 Carotid artery stenosis I65.29 Carpal tunnel syndrome G56.00 Depression F32.9 Fibromyalgia M79.7 GERD (gastroesophageal reflux disease) K21.9 H/O transfusion of whole blood Z92.89 Hypothyroidism E03.9 IBS (irritable bowel syndrome) K58.9 MTHFR mutation E72.12 Obesity E66.9 Osteoporosis M81.0 RLS (restless legs syndrome) G25.81 Skin cancer C44.90 Tuberculosis A15.9 Secondary pulmonary arterial hypertension I27.21 Thrombocytopenia D69.6 Secondary to sepsis versus heparin-induced thrombocytopenia Non-STEMI (non-ST elevated myocardial infarction) (Inactive) Onset Date: 09/27/19 I21.4 Seasonal allergies J30.2 Allergies ciprofloxacin [From Cipro] Allergy (Verified 12/28/20 06:50) Rash ciprofloxacin HCl [From Cipro] Allergy (Verified 12/28/20 06:50) Rash gabapentin [From Neurontin] Allergy (Verified 12/28/20 06:50) Rash heparin Allergy (Verified 12/28/20 06:50) Low platelets tuberculin, purified protein deriva Adverse Reaction (Verified 12/28/20 06:50) Other Home Medications: Ambulatory Orders Medication Instructions Recorded Albuterol Aerosols [Ventolin 2.5 mg INHALATION Q4H PRN PRN 09/26/19 Aerosols] Albuterol IH (ProAir) [Proair Hfa] 2 puff INHALATION Q6H PRN PRN 09/26/19 Cyanocobalamin (Vitamin B-12) 1,000 mcg PO DAILY 09/26/19 [Vitamin B-12] Fluticasone 0.05% [Flonase Nasal 2 spray NASAL DAILY 09/26/19 [place]] Fluticasone/Salmeterol [Advair Hfa 2 puff INHALATION BID 09/26/19 115-21 Mcg Inhaler] L.acidoph,Paracasei, B.lactis 1 ea PO DAILY 09/26/19 [Probiotic] Nystatin [Nyamyc] 30 gm TP BID 09/26/19 Paroxetine HCl [Paxil] 40 mg PO DAILY 09/26/19 Ropinirole HCl 2 mg PO BID 09/26/19 Tiotropium [place] [Spiriva] 18 mcg IH DAILY 09/26/19 calcium carbonate 500 mg (1,250 1 tab PO DAILY tab 01/11/20 mg)-vitamin D3 200 unit tablet omeprazole 20 mg capsule,delayed 40 mg PO DAILY cap 09/03/20 release nitroglycerin 0.4 mg sublingual 0.4 mg SUBLINGUAL PRN PRN #25 tab 10/30/20 tablet Amiodarone HCl 200 mg PO DAILY 12/12/20 Apixaban [Eliquis] 2.5 mg PO BID 12/12/20 Aspirin E.C. [Ecotrin] 81 mg PO DAILY@0800 12/12/20 Atorvastatin Calcium [Lipitor] 80 mg PO QHS 12/12/20 Cefdinir [Omnicef [equiv]] 300 mg PO Q12H 12/12/20 Denosumab [Prolia] 60 mg SC [id number] 12/12/20 Insulin Glargine [Lantus SoloStar 15 units SC BREAKFAST 12/12/20 Pen] Insulin Lispro [Humalog KwikPen] 8 unit SC TIDCM 12/12/20 Insulin Lispro [Humalog KwikPen] See Protocol SC TIDCM 12/12/20 Iron Polysaccharide Complex 150 mg PO DAILY #0 12/12/20 [Ferrex 150] Levothyroxine Sodium [Synthroid] 25 mcg PO DAILY 12/12/20 Metoprolol Tartrate 25 mg PO BID 12/12/20 Suvorexant [Belsomra] 20 mg PO QHS #0 12/12/20 Folic Acid 1 mg PO DAILY 12/28/20 Pramipexole Di-HCl [Mirapex] 1 mg PO DAILY 12/28/20 Umeclidinium [place] Inhaler 1 puff IH DAILY 12/28/20 [Incruse Ellipta Inhaler] Furosemide [Lasix] 40 mg PO DAILY #0 12/31/20 Prednisone [Deltasone] 40 mg PO DAILY 12/31/20 Smz/Tmp Ds [Bactrim Ds] 1 tablet PO DAILY 12/31/20 Surgical History: Surgical History (Last Reviewed 01/15/21 @ 10:06 by DANIEL CorleyC) H/O aortic valve replacement (Chronic) Onset Date: 12/03/16 Z95.2 TAVR: 23 mm Guillaume-Sapiens S3 valve 12/03/2016 H/O: hysterectomy Z98.890, Z90.710 H/O laminectomy Z98.890 History of left heart catheterization Onset Date: 09/03/16 Z98.890 History of tympanoplasty Z98.890 Hx of melanoma excision Z98.890, Z85.820 1997 Hx of rotator cuff surgery Z98.890 JAIME S/P hip replacement Z96.649 S/p bilateral carpal tunnel release Z98.890 Surgical History: appendectomy - Right hip replacement, back surgery, laminectomy, carpal tunnel surgery, right leg hematoma extraction, hysterectomy, rotator cuff repair, total hip arthroplasty - Right., - - Aortic valve replacement, TAVR, Laminectomy, Tympanostomy, Melanoma excision, Right carpal tunnel release. Psychiatric History: Anxiety, Depression MEDICAL TRANSCRIPTION EDITOR History: No pertinent MEDICAL TRANSCRIPTION EDITOR history Lives: Alone Smoking Status: Former smoker Tobacco Use: Non-smoker Alcohol: None Drugs: None - *Family History Maternal Family History: Family History (Last Reviewed 01/15/21 @ 10:07 by DANIEL CorleyC) Mother Arthritis Diabetes Hormone deficiency CVA (cerebral vascular accident) Colon cancer Cancer Sister Bleeding disorder CVA (cerebral vascular accident) Colon cancer Daughter Cancer Seizures Father Diabetes Leukemia Grandmother Diabetes Unknown Asthma Heart disease Hypertension High cholesterol Thyroid disorder Osteoporosis Cancer Tuberculosis History Items: No pertinent history Review of Systems Constitutional: Reports: Weight Change - weight gain. Denies: Anorexia, Weakness HEENT: Denies: Head Aches, Sinus Congestion, Sinus Drainage Cardiovascular: Denies: Chest Pain, Palpitations Respiratory: Reports: Cough, Shortness of Breath Gastrointestinal: Reports: Dyspepsia, Melena. Denies: Abdominal Pain, Constipation, Diarrhea, Hematemesis, Hematochezia, Nausea, Vomiting Genitourinary: Denies: Dysuria Musculoskeletal: Reports: Foot Pain Skin: Denies: Rash, Wounds Neurological: Reports: Balance problems Psychiatric: Denies: Anxiety, Depression, Homicidal Ideations, Suicidal Ideations Hematologic/ Lymphatic: Reports: Anemia, Easy Bruising, Easy Bleeding, Hx of blood transfusion Patient Problems: Active and Suspected Problems (Last Reviewed 12/10/20 @ 11:[address] Brown Vargas MD) Acute respiratory failure with hypoxia (Acute) Septic shock (Acute) Pneumonia (Acute) Hyperkalemia (Acute) Elevated liver enzymes (Acute) Debility (Acute) Acute kidney injury (Acute) - Physical Exam Vitals/I&O's: Vital Signs Temp Pulse Resp BP Pulse Ox 98.3 F 64 20 H 123/57 H 95 01/15/21 05:00 01/15/21 05:53 01/15/21 05:00 01/15/21 05:53 01/15/21 08:11 Oxygen Flow Rate (L/min) 4 Oxygen Delivery Method Nasal Cannula Weight: 191 lb 3.2 oz Body Mass Index (BMI) 39.3 Finger Stick Blood Glucose 112 Intake and Output for Last 24 Hours 01/13/21 01/14/21 01/15/21 23:59 23:59 23:59 Intake Total 840 / 840 1080 / 1080 240 / 240 Output Total 550 / 550 Balance 840 / 840 1080 / 1080 -310 / -310 General: Alert, Oriented x3, Cooperative HEENT: Atraumatic, PERRLA, EOMI, Normocephalic Neck: Supple, No JVD, Negative Carotid Bruits Lungs: Wheezes - bilaterally Cardiovascular: Regular rate, No murmurs Abdomen: Bowel Sounds Present, Soft, Non Tender, Obese Extremities: Capillary Refill Less than 3 Seconds, Edema Skin: Ulcer/ Wound - left great toe Musculoskeletal: No Tenderness to Palpation of Joints or Extremities Neurological: Neuro grossly intact Psych/Mental Status: Normal Affect, Appropriate Laboratory Results 01/14/21 11:14: POC Glucose 175 H 01/14/21 16:34: POC Glucose 129 H 01/14/21 21:36: POC Glucose 196 H 01/15/21 05:45: WBC 8.3, RBC 2.64 L, Hgb 6.6 L, Hct 23.9 L, MCV 90.5, MCH 25.0 L , MCHC 27.6 L, RDW Std Deviation 72.2 H, RDW Coeff of Jeff 23.0 H, Plt Count 76 L , Immature Gran % (Auto) 0.600, Neut % (Auto) 72.1 H, Lymph % (Auto) 18.3 L, [place] % (Auto) 8.3, Eos % (Auto) 0.5, Baso % (Auto) 0.2, Absolute Neuts (auto) 6.0, Absolute Lymphs (auto) 1.51, Nucleated RBC % 0 01/15/21 05:45: Sodium 140, Potassium 4.1, Chloride 104, Carbon Dioxide 31.0, Anion Gap 5, BUN 47 H, Creatinine 1.35 H, Estim Creat Clear Calc 26.26, Est GFR (MDRD) Af Amer 49 L, Est GFR (MDRD) Non-Af 41 L, BUN/Creatinine Ratio 34.8 H, Glucose 170 H, Calcium 8.6 01/15/21 06:07: POC Glucose 158 H Current Medications Acetaminophen (Acetaminophen 500 Mg Tablet) 1,000 mg PO Q6H PRN PRN Reason: Pain Score 1-3 Last Admin: 01/09/21 20:52 Dose: 1,000 mg Documented by: Albuterol Sulfate (Albuterol 2.5 Mg/3 Ml Vial.Neb.) 2.5 mg INHALATION Q4H PRN PRN PRN Reason: SOB &/OR WHEEZING Last Admin: 01/14/21 00:09 Dose: 2.5 mg Documented by: Amiodarone HCl (Amiodarone 200 Mg Tablet) 200 mg PO DAILY DIAMOND Last Admin: 01/15/21 05:53 Dose: 200 mg Documented by: Apixaban (Apixaban 2.5 Mg Tablet) 2.5 mg PO BID [facility] Last Admin: 01/15/21 05:53 Dose: 2.5 mg Documented by: Aspirin (Aspirin E.C. 81 Mg Tablet) 81 mg PO DAILY@0800 [facility] Last Admin: 01/15/21 08:09 Dose: 81 mg Documented by: Atorvastatin Calcium (Atorvastatin Calcium 80 Mg Tablet) 80 mg PO QHS [facility] Last Admin: 01/14/21 21:24 Dose: 80 mg Documented by: Bisacodyl (Bisacodyl 5 Mg Tablet) 10 mg PO DAILY PRN PRN Reason: Constipation Calamine/Phenol (Menthol/Lanolin/Calamine/Znox 113 Gm Tube) 1 applic TOPICAL BID [facility]; Protocol Last Admin: 01/15/21 06:00 Dose: 1 applic Documented by: Calcium/Vitamin D (Calcium Carb/Vitamin D 1 Tablet Tablet) [facility] Last Admin: 01/15/21 08:09 Dose: 1 tablet Documented by: Cyanocobalamin (Cyanocobalamin 500 Mcg Tablet) 1,000 mcg PO DAILY [facility] Last Admin: 01/15/21 05:53 Dose: 1,000 mcg Documented by: Fluticasone Propionate (Fluticasone 0.05% 1 [place] Nasal.Sry) 2 spray NASAL DAILY [facility] Last Admin: 01/15/21 05:51 Dose: 2 spray Documented by: Folic Acid (Folic Acid 1 Mg Tablet) [facility] Last Admin: 01/15/21 08:09 Dose: 1 mg Documented by: Furosemide (Furosemide 40 Mg Tablet) 40 mg PO DAILY [facility] Last Admin: 01/15/21 06:03 Dose: 40 mg Documented by: Insulin Glargine (Insulin Glargine 100 Units/Ml Pen) 15 units SC QHS [facility] Last Admin: 01/14/21 22:04 Dose: 15 u Documented by: Insulin Human Lispro (Insulin Lispro 100 Unit/Ml Insuln.Pen) 5 unit SC TIDAC [facility] Last Admin: 01/15/21 08:08 Dose: 5 units Documented by: Lactobacillus Acidophilus (Lactobacillus Acidophilus) 1 tablet PO DAILY [facility] Last Admin: 01/15/21 05:53 Dose: 1 tablet Documented by: Levothyroxine Sodium (Levothyroxine 25 Mcg Tablet) 25 mcg PO DAILY [facility] Last Admin: 01/15/21 05:53 Dose: 25 mcg Documented by: Magnesium Hydroxide (Magnesium Hydroxide 30 Ml Udc) 30 ml PO DAILY PRN PRN Reason: Constipation Metoprolol Tartrate (Metoprolol Tartrate 25 Mg Tablet) 12.5 mg PO BID [facility] Last Admin: 01/15/21 05:53 Dose: 12.5 mg Documented by: Nitroglycerin (Nitroglycerin (Inpatient Use) 0.4 Mg Tab.Subl) 0.4 mg SL Q5M PRN PRN Reason: CARDIAC/CHEST PAIN Nutritional Formula (Lactose Free) (Glucerna Shake 120 Ml Liquid) 120 ml PO TIDCM [facility] Last Admin: 01/15/21 08:07 Dose: 120 ml Documented by: Nystatin (Nystatin Powder 15gm Bottle) 1 applic TOPICAL BID [facility]; Protocol Last Admin: 01/15/21 06:01 Dose: 1 applic Documented by: Oxycodone HCl (Oxycodone 5 Mg Tablet) 5 mg PO Q4H PRN PRN PRN Reason: Pain Score 6-10 Last Admin: 01/13/21 05:52 Dose: 5 mg Documented by: Pantoprazole Sodium (Pantoprazole Sodium 40 Mg Tablet) 40 mg PO DAILY [facility] Last Admin: 01/15/21 05:53 Dose: 40 mg Documented by: Paroxetine HCl (Paroxetine 20 Mg Tablet) 40 mg PO DAILY [facility] Last Admin: 01/15/21 05:53 Dose: 40 mg Documented by: Polyethylene Glycol (Polyethylene Glycol 3350 17 Gm Packet) 17 gm PO DAILY [facility] Last Admin: 01/15/21 05:52 Dose: 17 gm Documented by: Polysaccharide Iron Complex (Iron Polysaccharide Complex 150 Mg Capsule) 150 mg PO DAILY [facility] Last Admin: 01/15/21 05:56 Dose: 150 mg Documented by: Pramipexole Dihydrochloride (Pramipexole Di-Hcl 1 Mg Tablet) 1 mg PO BID [facility] Last Admin: 01/15/21 05:53 Dose: 1 mg Documented by: Fluticasone/Salmeterol (Fluticasone/Salmeterol 232-14 Inhaler) 1 puff INHALATION Q12 [facility] Last Admin: 01/15/21 05:55 Dose: 1 puff Documented by: Senna/Docusate Sodium (Senna/Docusate Sodium 1 Tablet) 1 tablet PO BID DIAMOND Last Admin: 01/15/21 05:53 Dose: 1 tablet Documented by: Sodium Chloride (0.9% Saline Lock 10 Ml Syringe) 10 - 40 ml IV UD PRN PRN Reason: Midline Flush Last Admin: 01/15/21 05:57 Dose: 10 ml Documented by: Sodium Chloride (0.9 % Nacl (Sterile) Posiflush 10 Ml) 10 - 40 ml IV UD PRN PRN Reason: Port access or dressing change Umeclidinium [place] (Umeclidinium [place] Inhaler) 1 puff INHALATION DAILY DIAMOND Last Admin: 01/15/21 05:51 Dose: 1 puff Documented by: Zolpidem Tartrate (Zolpidem Tartrate 5 Mg Tablet) 5 mg PO QHS PRN PRN Reason: INSOMNIA Last Admin: 01/06/21 22:05 Dose: 5 mg Documented by: Assessment/Plan All Active Problems (Last Reviewed 12/10/20 @ 11:[address] Brown Vargas MD) Acute respiratory failure with hypoxia (Acute) Septic shock (Acute) Pneumonia (Acute) Hyperkalemia (Acute) Elevated liver enzymes (Acute) Cellulitis of right leg (Acute) Debility (Acute) Acute kidney injury (Acute) I have been consulted in conjunction with Dr. Ellis Impression: Acute on chronic anemia. Plan: I have discussed this patient with Dr. Ellis. Patient had an upper and lower scope last year with her physician in [place] where no bleeding was identified per patient. Dr. Ellis will start with an upper scope with possible biopsies and possible cessation of bleeding tomorrow. Pending those results will determine if a colonoscopy is warranted which would be completed for Tuesday. Hold patient's Eliquis starting tomorrow morning and resume Tuesday. Procedure details, risks and benefits have been explained to the p atient. Patient has had the opportunity to ask and have questions answered. Patient verbally understands and agrees with the plan. We will proceed tomorrow. Thank you for allowing us to participate in this patient's care. Office Visits / Consults: [id number] OP Consult L3 - TCU
[2021-01-15 10:41] LABS: Bedside Glucose 214 mg/dL (70-110)
[2021-01-15] MEDS: oxyCODONE 5 MG Tablet PO (13:30)
--- NOTE | 2021-01-15 15:16 | NURSING ---
PT IN ROOM RECEIVING BLOOD,EVERETT CHOIRN IN ROOM. PT IS TO RECEIVE 2 UNITS. PT HBG IS TO BE DRAWN IN MORNING. RN AWARE.
[2021-01-15 16:40] LABS: Bedside Glucose 149 mg/dL (70-110)
[2021-01-15] MEDS: Furosemide 20 MG/2 ML VIAL IV (19:43)
[2021-01-15] MEDS: Atorvastatin Calcium 80 MG Tablet PO (20:57)
[2021-01-15] MEDS: Acetaminophen 500 MG Tablet 1000 MG PO (21:00)
[2021-01-15 21:20] LABS: Bedside Glucose 168 mg/dL (70-110)
--- NOTE | 2021-01-15 21:27 | NURSING ---
Blood transfusion completed at 20:23. This completed vitals at 21:23 Bp-154/74, RR-18, ND-54, Temp temporal 97.8, and SpO2-97% nasal cannula via 2L. Lungs sounds anterior and posterior expiratory wheezing. Denies any discomfort during this time will continue to monitor during this shift. Call light within reach.
--- NOTE | 2021-01-15 22:19 | CPS ---
PT REFUSING BIPAP
[2021-01-16] VITALS (7 sets, daily range): BP systolic 132–160; BP diastolic 35–73; PULSE 45–87; RESP 12–20; TEMP 36.1–36.7; O2SAT 91–98
[2021-01-16] MEDS: Umeclidinium Bromide Inhaler 1 PUFF INHALATION (05:48)
[2021-01-16 05:49] LABS: Hemoglobin 8.9 g/dL (12.0-15.0)
[2021-01-16] MEDS: 0.9% Saline Lock 10 ML Syringe IV (05:50)
[2021-01-16] MEDS: Fluticasone 0.05% 1 SPRAY NASAL.SRY 2 SPRAY NASAL (05:50)
[2021-01-16] MEDS: Fluticasone/Salmeterol 232-14 Inhaler 1 PUFF INHALATION ×2 (05:52→17:35)
[2021-01-16] MEDS: Nystatin Powder 15gm Bottle 1 APPLIC TOPICAL ×2 (05:53→17:50)
[2021-01-16] MEDS: Menthol/Lanolin/Calamine/Znox 113 GM Tube 1 APPLIC TOPICAL ×2 (05:54→17:36)
[2021-01-16 06:04] LABS: International Normalized Ratio 1.4; Prothrombin Time (Protime)PT. 16.1 SECONDS (11.7-14.9)
[2021-01-16 06:26] LABS: Bedside Glucose 115 mg/dL (70-110)
--- NOTE | 2021-01-16 09:47 | NURSING ---
0915-pt down via bed for egd. pt npo and denies any questions about and stated, bria had them before so am good
--- NOTE | 2021-01-16 10:21 | PN_ITS ---
Progress Note I performed an EGD on the patient this morning. The patient had a prepyloric ulcer which was showing signs of stigmata of bleeding. The ulcer was biopsied at the rim and clips were placed after biopsy. There is no bleeding at the end of the procedure. The patient was changed to a twice daily PPI and I have resumed her diet. She can resume her Eliquis tomorrow. Continue to monitor hemoglobin. I do not believe there is a need for colonoscopy as the source of the bleeding is likely been found. Please call with any questions or concerns. Charles Ellis MD Pager: [facility] [address] [place] [address], [address] [place] [address] Office:
[2021-01-16 12:35] LABS: Bedside Glucose 92 mg/dL (70-110)
[2021-01-16] MEDS: Calcium Carb/Vitamin D 1 TABLET Tablet PO (12:57)
[2021-01-16] MEDS: Folic Acid 1 MG Tablet PO (12:57)
[2021-01-16] MEDS: Furosemide 40 MG Tablet PO (12:58)
[2021-01-16] MEDS: Iron Polysaccharide Complex 150 MG CAPSULE PO (12:58)
[2021-01-16] MEDS: Levothyroxine 25 MCG TABLET PO (12:58)
[2021-01-16] MEDS: Polyethylene Glycol 3350 17 GM PACKET PO (12:59)
[2021-01-16] MEDS: Senna/Docusate Sodium 1 Tablet PO ×2 (12:59→17:39)
[2021-01-16] MEDS: Cyanocobalamin 500 MCG Tablet 1000 MCG PO (12:59)
[2021-01-16] MEDS: Paroxetine 20 MG Tablet 40 MG PO (13:00)
[2021-01-16] MEDS: Glucerna Shake 120 ML LIQUID PO ×2 (13:00→17:36)
[2021-01-16] MEDS: Pramipexole Di-HCl 1 MG Tablet PO ×2 (13:00→17:50)
[2021-01-16] MEDS: Amiodarone 200 MG Tablet PO (13:05)
[2021-01-16] MEDS: Insulin Lispro 100 UNIT/ML INSULN.PEN SC ×2 (13:12→17:36)
[2021-01-16 16:30] LABS: Bedside Glucose 153 mg/dL (70-110)
[2021-01-16] MEDS: Metoprolol Tartrate 25 MG Tablet 6.25 MG PO (17:38)
[2021-01-16] MEDS: Pantoprazole Sodium 40 MG Tablet PO (17:39)
[2021-01-16] MEDS: oxyCODONE 5 MG Tablet PO ×2 (17:41→21:42)
[2021-01-16] MEDS: Atorvastatin Calcium 80 MG Tablet PO (21:37)
[2021-01-16] MEDS: Zolpidem Tartrate 5 MG Tablet PO (21:41)
[2021-01-16 22:05] LABS: Bedside Glucose 185 mg/dL (70-110)
[2021-01-17] VITALS (8 sets, daily range): BP systolic 124–131; BP diastolic 50–65; PULSE 51–71; RESP 12–22; TEMP 36.6; O2SAT 94–97
[2021-01-17] MEDS: Levothyroxine 25 MCG TABLET PO (05:50)
[2021-01-17] MEDS: Metoprolol Tartrate 25 MG Tablet 6.25 MG PO ×2 (05:50→17:54)
[2021-01-17] MEDS: Furosemide 40 MG Tablet PO (05:50)
[2021-01-17] MEDS: Amiodarone 200 MG Tablet PO (05:51)
[2021-01-17] MEDS: Cyanocobalamin 500 MCG Tablet 1000 MCG PO (05:51)
[2021-01-17] MEDS: Pantoprazole Sodium 40 MG Tablet PO ×2 (05:51→17:54)
[2021-01-17] MEDS: Pramipexole Di-HCl 1 MG Tablet PO ×2 (05:52→17:55)
[2021-01-17] MEDS: Senna/Docusate Sodium 1 Tablet PO ×2 (05:52→17:55)
[2021-01-17] MEDS: Umeclidinium Bromide Inhaler 1 PUFF INHALATION (05:52)
[2021-01-17] MEDS: Iron Polysaccharide Complex 150 MG CAPSULE PO (05:52)
[2021-01-17] MEDS: Paroxetine 20 MG Tablet 40 MG PO (05:52)
[2021-01-17] MEDS: Fluticasone 0.05% 1 SPRAY NASAL.SRY 2 SPRAY NASAL (05:53)
[2021-01-17] MEDS: Fluticasone/Salmeterol 232-14 Inhaler 1 PUFF INHALATION ×2 (05:54→17:49)
[2021-01-17] MEDS: Menthol/Lanolin/Calamine/Znox 113 GM Tube 1 APPLIC TOPICAL ×2 (05:59→17:56)
[2021-01-17] MEDS: Nystatin Powder 15gm Bottle 1 APPLIC TOPICAL ×2 (06:06→17:56)
[2021-01-17 06:36] LABS: Bedside Glucose 104 mg/dL (70-110)
[2021-01-17] MEDS: Folic Acid 1 MG Tablet PO (08:13)
[2021-01-17] MEDS: Insulin Lispro 100 UNIT/ML INSULN.PEN SC ×3 (08:13→17:50)
[2021-01-17] MEDS: Calcium Carb/Vitamin D 1 TABLET Tablet PO (08:14)
[2021-01-17] MEDS: Aspirin E.C. 81 MG Tablet PO (08:14)
[2021-01-17] MEDS: Glucerna Shake 120 ML LIQUID PO ×3 (08:15→17:56)
[2021-01-17 09:20] LABS: Hematocrit 31.7 % (37-47); Hemoglobin 8.8 g/dL (12.0-15.0); POSITIVE COUNT YES
[2021-01-17 11:15] LABS: Bedside Glucose 321 mg/dL (70-110)
--- NOTE | 2021-01-17 12:59 | PN.SURG_ITS ---
Patient Problems: Active and Suspected Problems (Last Reviewed 01/15/21 @ 10:06 by Cora DUNBAR, PAMalkaC) Acute respiratory failure with hypoxia (Acute) Septic shock (Acute) Pneumonia (Acute) Hyperkalemia (Acute) Elevated liver enzymes (Acute) Debility (Acute) Acute kidney injury (Acute) Subjective: Pt states her BM are dark brown, not black, repeat HH is stable 8.8 from 8.9, pt denies abd pain - Physical Exam Vitals/I&O's: Vital Signs Temp Pulse Resp BP Pulse Ox 97.8 F 62 22 H 131/65 H 97 01/17/21 12:47 01/17/21 12:47 01/17/21 12:47 01/17/21 12:47 01/17/21 12:47 Oxygen Flow Rate (L/min) 4 Oxygen Delivery Method Nasal Cannula Weight: 191 lb 3.2 oz Body Mass Index (BMI) 39.3 Finger Stick Blood Glucose 112 Intake and Output for Last 24 Hours 01/15/21 01/16/21 01/17/21 23:59 23:59 23:59 Intake Total 1120 / 1120 480 / 480 620 / 620 Output Total 550 / 550 Balance 570 / 570 480 / 480 620 / 620 General: Alert, Oriented x3, Cooperative, No apparent distress Lungs: Normal air movement Cardiovascular: Regular rate Abdomen: Soft, Non Tender Psych/Mental Status: Normal Affect Microbiology Past 72 Hours 01/15/21 13:15 Interface Orders SARS-CoV-2 Antigen (Rapid) - Final Laboratory Results 01/16/21 16:13: POC Glucose 153 H 01/16/21 21:34: POC Glucose 185 H 01/17/21 06:14: POC Glucose 104 01/17/21 09:06: Hgb 8.8 L, Hct 31.7 L 01/17/21 10:56: POC Glucose 321 H Current Medications Acetaminophen (Acetaminophen 500 Mg Tablet) 1,000 mg PO Q6H PRN PRN Reason: Pain Score 1-3 Last Admin: 01/15/21 21:00 Dose: 1,000 mg Documented by: Albuterol Sulfate (Albuterol 2.5 Mg/3 Ml Vial.Neb.) 2.5 mg INHALATION Q4H PRN PRN PRN Reason: SOB &/OR WHEEZING Last Admin: 01/14/21 00:09 Dose: 2.5 mg Documented by: Amiodarone HCl (Amiodarone 200 Mg Tablet) 200 mg PO DAILY [facility] Last Admin: 01/17/21 05:51 Dose: 200 mg Documented by: Apixaban (Apixaban 2.5 Mg Tablet) 2.5 mg PO BID [facility] Last Admin: 01/15/21 17:44 Dose: 2.5 mg Documented by: Aspirin (Aspirin E.C. 81 Mg Tablet) 81 mg PO DAILY@0800 [facility] Last Admin: 01/17/21 08:14 Dose: 81 mg Documented by: Atorvastatin Calcium (Atorvastatin Calcium 80 Mg Tablet) 80 mg PO QHS [facility] Last Admin: 01/16/21 21:37 Dose: 80 mg Documented by: Bisacodyl (Bisacodyl 5 Mg Tablet) 10 mg PO DAILY PRN PRN Reason: Constipation Calamine/Phenol (Menthol/Lanolin/Calamine/Znox 113 Gm Tube) 1 applic TOPICAL BID [facility]; Protocol Last Admin: 01/17/21 05:59 Dose: 1 applic Documented by: Calcium/Vitamin D (Calcium Carb/Vitamin D 1 Tablet Tablet) [facility] Last Admin: 01/17/21 08:14 Dose: 1 tablet Documented by: Cyanocobalamin (Cyanocobalamin 500 Mcg Tablet) 1,000 mcg PO DAILY [facility] Last Admin: 01/17/21 05:51 Dose: 1,000 mcg Documented by: Fluticasone Propionate (Fluticasone 0.05% 1 [place] Nasal.Sry) 2 spray NASAL DAILY [facility] Last Admin: 01/17/21 05:53 Dose: 2 spray Documented by: Folic Acid (Folic Acid 1 Mg Tablet) 1 mg PO DAILYCM [facility] Last Admin: 01/17/21 08:13 Dose: 1 mg Documented by: Furosemide (Furosemide 40 Mg Tablet) 40 mg PO DAILY [facility] Last Admin: 01/17/21 05:50 Dose: 40 mg Documented by: Sodium Chloride () 500 mls @ 15 mls/hr IV PRN PRN PRN Reason: Blood Transfusion Insulin Glargine (Insulin Glargine 100 Units/Ml Pen) 15 units SC QHS [facility] Last Admin: 01/16/21 21:36 Dose: 15 u Documented by: Insulin Human Lispro (Insulin Lispro 100 Unit/Ml Insuln.Pen) 5 unit SC TIDAC [facility] Last Admin: 01/17/21 11:02 Dose: 5 units Documented by: Insulin Human Lispro (Insulin Lispro 100 Unit/Ml Insuln.Pen) 10 unit SC X1 ONE Stop: 01/17/21 12:54 Lactobacillus Acidophilus (Lactobacillus Acidophilus) 1 tablet PO DAILY [facility] Last Admin: 01/17/21 05:53 Dose: 1 tablet Documented by: Levothyroxine Sodium (Levothyroxine 25 Mcg Tablet) 25 mcg PO DAILY [facility] Last Admin: 01/17/21 05:50 Dose: 25 mcg Documented by: Magnesium Hydroxide (Magnesium Hydroxide 30 Ml Udc) 30 ml PO DAILY PRN PRN Reason: Constipation Metoprolol Tartrate (Metoprolol Tartrate 25 Mg Tablet) 6.25 mg PO BID [facility] Last Admin: 01/17/21 05:50 Dose: 6.25 mg Documented by: Nitroglycerin (Nitroglycerin (Inpatient Use) 0.4 Mg Tab.Subl) 0.4 mg SL Q5M PRN PRN Reason: CARDIAC/CHEST PAIN Nutritional Formula (Lactose Free) (Glucerna Shake 120 Ml Liquid) 120 ml PO TIDCM [facility] Last Admin: 01/17/21 08:15 Dose: 120 ml Documented by: Nystatin (Nystatin Powder 15gm Bottle) 1 applic TOPICAL BID [facility]; Protocol Last Admin: 01/17/21 06:06 Dose: 1 applic Documented by: Oxycodone HCl (Oxycodone 5 Mg Tablet) 5 mg PO Q4H PRN PRN PRN Reason: Pain Score 6-10 Last Admin: 01/16/21 21:42 Dose: 5 mg Documented by: Pantoprazole Sodium (Pantoprazole Sodium 40 Mg Tablet) 40 mg PO BID [facility] Last Admin: 01/17/21 05:51 Dose: 40 mg Documented by: Paroxetine HCl (Paroxetine 20 Mg Tablet) 40 mg PO DAILY [facility] Last Admin: 01/17/21 05:52 Dose: 40 mg Documented by: Polyethylene Glycol (Polyethylene Glycol 3350 17 Gm Packet) 17 gm PO DAILY [facility] Last Admin: 01/17/21 05:52 Dose: Not Given Documented by: Polysaccharide Iron Complex (Iron Polysaccharide Complex 150 Mg Capsule) 150 mg PO DAILY [facility] Last Admin: 01/17/21 05:52 Dose: 150 mg Documented by: Pramipexole Dihydrochloride (Pramipexole Di-Hcl 1 Mg Tablet) 1 mg PO BID [facility] Last Admin: 01/17/21 05:52 Dose: 1 mg Documented by: Fluticasone/Salmeterol (Fluticasone/Salmeterol 232-14 Inhaler) 1 puff INHALATION Q12 [facility] Last Admin: 01/17/21 05:54 Dose: 1 puff Documented by: Senna/Docusate Sodium (Senna/Docusate Sodium 1 Tablet) 1 tablet PO BID [facility] Last Admin: 01/17/21 05:52 Dose: 1 tablet Documented by: Sodium Chloride (0.9% Saline Lock 10 Ml Syringe) 10 - 40 ml IV UD PRN PRN Reason: Midline Flush Last Admin: 01/16/21 05:50 Dose: 20 ml Documented by: Sodium Chloride (0.9 % Nacl (Sterile) Posiflush 10 Ml) 10 - 40 ml IV UD PRN PRN Reason: Port access or dressing change Umeclidinium [place] (Umeclidinium [place] Inhaler) 1 puff INHALATION DAILY [facility] Last Admin: 01/17/21 05:52 Dose: 1 puff Documented by: Zolpidem Tartrate (Zolpidem Tartrate 5 Mg Tablet) 5 mg PO QHS PRN PRN Reason: INSOMNIA Last Admin: 01/16/21 21:41 Dose: 5 mg Documented by: Medical Necessity - Tobacco Use Smoking Status: Former smoker Tobacco Use: Non-smoker Assessment/Plan All Active Problems (Last Reviewed 01/15/21 @ 10:06 by Cora DUNBAR, PA-C) Acute respiratory failure with hypoxia (Acute) Septic shock (Acute) Pneumonia (Acute) Hyperkalemia (Acute) Elevated liver enzymes (Acute) Cellulitis of right leg (Acute) Debility (Acute) Acute kidney injury (Acute) 75 y/o F w anemia s/p EGD w gastric ulcer seen bx-clips placed due to bleeding from bx HH is stable, will continue to monitor. Inpatient E&M: 80169 Subs Hosp L2
[2021-01-17] MEDS: Insulin Lispro 100 UNIT/ML INSULN.PEN 10 UNIT SC (14:03)
[2021-01-17 16:55] LABS: Bedside Glucose 154 mg/dL (70-110)
[2021-01-17] MEDS: 0.9% Saline Lock 10 ML Syringe IV (17:52)
[2021-01-17] MEDS: Atorvastatin Calcium 80 MG Tablet PO (20:24)
[2021-01-17 22:25] LABS: Bedside Glucose 139 mg/dL (70-110)
[2021-01-18] VITALS (7 sets, daily range): BP systolic 112–145; BP diastolic 50–59; PULSE 51–64; RESP 12–22; TEMP 36.3–36.5; O2SAT 93–98
[2021-01-18] MEDS: Pramipexole Di-HCl 1 MG Tablet PO ×2 (04:44→17:23)
[2021-01-18] MEDS: Amiodarone 200 MG Tablet PO (04:44)
[2021-01-18] MEDS: oxyCODONE 5 MG Tablet PO ×2 (04:44→13:21)
[2021-01-18] MEDS: APIXABAN 2.5 MG TABLET PO ×2 (04:45→17:23)
[2021-01-18] MEDS: Levothyroxine 25 MCG TABLET PO (04:45)
[2021-01-18] MEDS: Paroxetine 20 MG Tablet 40 MG PO (04:45)
[2021-01-18] MEDS: Pantoprazole Sodium 40 MG Tablet PO ×2 (04:46→17:23)
[2021-01-18] MEDS: Metoprolol Tartrate 25 MG Tablet 6.25 MG PO (04:46)
[2021-01-18] MEDS: Furosemide 40 MG Tablet PO (04:47)
[2021-01-18] MEDS: Senna/Docusate Sodium 1 Tablet PO ×2 (04:47→17:24)
[2021-01-18] MEDS: Iron Polysaccharide Complex 150 MG CAPSULE PO (04:47)
[2021-01-18] MEDS: Cyanocobalamin 500 MCG Tablet 1000 MCG PO (04:47)
[2021-01-18] MEDS: Polyethylene Glycol 3350 17 GM PACKET PO (04:47)
[2021-01-18] MEDS: Nystatin Powder 15gm Bottle 1 APPLIC TOPICAL ×2 (04:55→17:22)
[2021-01-18] MEDS: Menthol/Lanolin/Calamine/Znox 113 GM Tube 1 APPLIC TOPICAL ×2 (04:55→17:22)
[2021-01-18] MEDS: Fluticasone 0.05% 1 SPRAY NASAL.SRY 2 SPRAY NASAL (04:56)
[2021-01-18] MEDS: Fluticasone/Salmeterol 232-14 Inhaler 1 PUFF INHALATION ×2 (04:57→17:27)
[2021-01-18] MEDS: Umeclidinium Bromide Inhaler 1 PUFF INHALATION (04:57)
[2021-01-18] MEDS: Insulin Lispro 100 UNIT/ML INSULN.PEN SC ×3 (08:07→17:21)
[2021-01-18] MEDS: Glucerna Shake 120 ML LIQUID PO ×3 (08:08→17:21)
[2021-01-18] MEDS: Aspirin E.C. 81 MG Tablet PO (08:08)
[2021-01-18] MEDS: Folic Acid 1 MG Tablet PO (08:09)
[2021-01-18] MEDS: Calcium Carb/Vitamin D 1 TABLET Tablet PO (08:09)
[2021-01-18 11:01] LABS: Bedside Glucose 261 mg/dL (70-110)
[2021-01-18 16:31] LABS: Bedside Glucose 198 mg/dL (70-110)
[2021-01-18] MEDS: 0.9% Saline Lock 10 ML Syringe IV (17:26)
[2021-01-18] MEDS: Atorvastatin Calcium 80 MG Tablet PO (21:14)
[2021-01-18 21:16] LABS: Bedside Glucose 221 mg/dL (70-110)
[2021-01-19 03:31] VITALS: O2SAT 94
[2021-01-19 05:00] VITALS: BP 139/53; PULSE 62; RESP 16; TEMP 36.8; O2SAT 96
[2021-01-19] MEDS: Fluticasone 0.05% 1 SPRAY NASAL.SRY 2 SPRAY NASAL (05:12)
[2021-01-19] MEDS: Umeclidinium Bromide Inhaler 1 PUFF INHALATION (05:13)
[2021-01-19] MEDS: Fluticasone/Salmeterol 232-14 Inhaler 1 PUFF INHALATION ×2 (05:28→17:45)
[2021-01-19] MEDS: Polyethylene Glycol 3350 17 GM PACKET PO (05:29)
[2021-01-19 05:30] VITALS: BP 139/53; PULSE 62
[2021-01-19] MEDS: Paroxetine 20 MG Tablet 40 MG PO (05:30)
[2021-01-19] MEDS: APIXABAN 2.5 MG TABLET PO ×2 (05:30→17:46)
[2021-01-19] MEDS: Iron Polysaccharide Complex 150 MG CAPSULE PO (05:30)
[2021-01-19] MEDS: Furosemide 40 MG Tablet PO (05:30)
[2021-01-19] MEDS: Pantoprazole Sodium 40 MG Tablet PO ×2 (05:30→17:49)
[2021-01-19] MEDS: Pramipexole Di-HCl 1 MG Tablet PO ×2 (05:30→17:46)
[2021-01-19] MEDS: Metoprolol Tartrate 25 MG Tablet 6.25 MG PO ×2 (05:30→17:46)
[2021-01-19] MEDS: Senna/Docusate Sodium 1 Tablet PO ×2 (05:30→17:49)
[2021-01-19] MEDS: Amiodarone 200 MG Tablet PO (05:30)
[2021-01-19] MEDS: Levothyroxine 25 MCG TABLET PO (05:30)
[2021-01-19] MEDS: Cyanocobalamin 500 MCG Tablet 1000 MCG PO (05:31)
[2021-01-19] MEDS: Menthol/Lanolin/Calamine/Znox 113 GM Tube 1 APPLIC TOPICAL ×2 (05:31→17:45)
[2021-01-19] MEDS: Nystatin Powder 15gm Bottle 1 APPLIC TOPICAL ×2 (05:31→17:49)
[2021-01-19] MEDS: 0.9% Saline Lock 10 ML Syringe IV ×2 (05:36→17:43)
[2021-01-19 06:31] LABS: Bedside Glucose 154 mg/dL (70-110)
[2021-01-19] MEDS: oxyCODONE 5 MG Tablet PO ×2 (06:52→21:31)
[2021-01-19] MEDS: Aspirin E.C. 81 MG Tablet PO (07:54)
[2021-01-19] MEDS: Folic Acid 1 MG Tablet PO (07:54)
[2021-01-19] MEDS: Calcium Carb/Vitamin D 1 TABLET Tablet PO (07:54)
[2021-01-19] MEDS: Bisacodyl 5 MG Tablet 10 MG PO (07:56)
[2021-01-19] MEDS: Glucerna Shake 120 ML LIQUID PO ×3 (07:56→17:43)
[2021-01-19] MEDS: Insulin Lispro 100 UNIT/ML INSULN.PEN SC ×2 (07:57→11:57)
--- NOTE | 2021-01-19 08:52 | PT ---
Pt's SPO2 while sitting edge of bed before activity was 93% while on 4L of O2. Her SPO2 with seated exercises decreased to 87% but then was able to recover to 91% after 2 min of seated rest. Her SPO2 decreased to 86% after transfers with FWW, but then was able to recover to 91% once seated and rested x 2 min.
[2021-01-19 09:08] VITALS: O2SAT 96
[2021-01-19 10:45] LABS: Bedside Glucose 191 mg/dL (70-110)
--- NOTE | 2021-01-19 13:19 | NURSING ---
Addendum entered by Yeseina Goldstein 01/19/21 19:27: DR Mcmanus ordered labs, adjusted her synthroid and humalog dosing Original Note: PT LEFT BY COT FOR APPOINTMENT WITH DR.TONI MCMANUS AT 1310.
[2021-01-19 14:08] VITALS: BP 145/68; PULSE 62; RESP 18; TEMP 36.6; O2SAT 93
[2021-01-19 16:21] LABS: Bedside Glucose 147 mg/dL (70-110)
[2021-01-19] MEDS: Insulin Lispro 100 UNIT/ML INSULN.PEN 7 UNIT SC (17:44)
[2021-01-19 17:46] VITALS: BP 145/68; PULSE 62
[2021-01-19] MEDS: Atorvastatin Calcium 80 MG Tablet PO (20:52)
[2021-01-19 21:16] LABS: Bedside Glucose 168 mg/dL (70-110)
[2021-01-20] VITALS (8 sets, daily range): BP systolic 108–123; BP diastolic 53–71; PULSE 58–66; RESP 12–18; TEMP 36.3–36.6; O2SAT 87–99
[2021-01-20] MEDS: Cyanocobalamin 500 MCG Tablet 1000 MCG PO (05:01)
[2021-01-20] MEDS: Polyethylene Glycol 3350 17 GM PACKET PO (05:01)
[2021-01-20] MEDS: Metoprolol Tartrate 25 MG Tablet 6.25 MG PO ×2 (05:01→17:28)
[2021-01-20] MEDS: APIXABAN 2.5 MG TABLET PO ×2 (05:01→17:28)
[2021-01-20] MEDS: Levothyroxine 50 MCG Tablet PO (05:04)
[2021-01-20] MEDS: Senna/Docusate Sodium 1 Tablet PO ×2 (05:04→17:31)
[2021-01-20] MEDS: Paroxetine 20 MG Tablet 40 MG PO (05:04)
[2021-01-20] MEDS: Pramipexole Di-HCl 1 MG Tablet PO ×2 (05:04→17:30)
[2021-01-20] MEDS: Furosemide 40 MG Tablet PO (05:04)
[2021-01-20] MEDS: Amiodarone 200 MG Tablet PO (05:04)
[2021-01-20] MEDS: Umeclidinium Bromide Inhaler 1 PUFF INHALATION (05:05)
[2021-01-20] MEDS: Fluticasone 0.05% 1 SPRAY NASAL.SRY 2 SPRAY NASAL (05:05)
[2021-01-20] MEDS: Menthol/Lanolin/Calamine/Znox 113 GM Tube 1 APPLIC TOPICAL ×2 (05:05→17:26)
[2021-01-20] MEDS: Iron Polysaccharide Complex 150 MG CAPSULE PO (05:05)
[2021-01-20] MEDS: Fluticasone/Salmeterol 232-14 Inhaler 1 PUFF INHALATION ×2 (05:06→17:31)
[2021-01-20] MEDS: Nystatin Powder 15gm Bottle 1 APPLIC TOPICAL ×2 (05:07→17:30)
[2021-01-20] MEDS: Pantoprazole Sodium 40 MG Tablet PO ×2 (05:07→17:31)
[2021-01-20] MEDS: Glucerna Shake 120 ML LIQUID PO ×3 (05:11→17:25)
[2021-01-20 06:50] LABS: Bedside Glucose 151 mg/dL (70-110)
[2021-01-20] MEDS: Folic Acid 1 MG Tablet PO (08:09)
[2021-01-20] MEDS: Aspirin E.C. 81 MG Tablet PO (08:09)
[2021-01-20] MEDS: Calcium Carb/Vitamin D 1 TABLET Tablet PO (08:10)
[2021-01-20] MEDS: Insulin Lispro 100 UNIT/ML INSULN.PEN 7 UNIT SC ×3 (08:10→17:26)
[2021-01-20 10:41] LABS: Bedside Glucose 158 mg/dL (70-110)
[2021-01-20] MEDS: Carbamide Peroxide 15 ML Bottle 5 DRP OTIC (11:14)
--- NOTE | 2021-01-20 12:05 | PT ---
Pt's SPO2 was 96% while on 4L of O2 when seated. With activity, pt's SPO2 remained at 93-94% while on 4L of O2. Pt was less SOB with all mobility today.
[2021-01-20] MEDS: 0.9% Saline Lock 10 ML Syringe IV (13:11)
[2021-01-20] MEDS: oxyCODONE 5 MG Tablet PO ×2 (13:14→21:46)
[2021-01-20 16:40] LABS: Bedside Glucose 209 mg/dL (70-110)
[2021-01-20] MEDS: Atorvastatin Calcium 80 MG Tablet PO (21:14)
[2021-01-20 21:26] LABS: Bedside Glucose 226 mg/dL (70-110)
[2021-01-20] MEDS: Zolpidem Tartrate 5 MG Tablet PO (21:45)
[2021-01-21] VITALS (8 sets, daily range): BP systolic 133–134; BP diastolic 50–54; PULSE 58–71; RESP 12–19; TEMP 36.1–36.6; O2SAT 91–93
--- NOTE | 2021-01-21 02:33 | NURSING ---
midline dx changed at hs per order. site slightly reddened, 1 cm exposed, pt tolerated well. flushes with no blood return.
--- NOTE | 2021-01-21 02:34 | NURSING ---
around 2am pt bipap alarm was sounding. this nurse to room and sees mask off and pt sob and coughing. pt states she was coughing and trying to clear her throat and would like to switch to her nc for now. 4L o2 on at this time.
[2021-01-21 06:30] LABS: Bedside Glucose 167 mg/dL (70-110)
[2021-01-21] MEDS: Fluticasone 0.05% 1 SPRAY NASAL.SRY 2 SPRAY NASAL (06:34)
[2021-01-21] MEDS: Fluticasone/Salmeterol 232-14 Inhaler 1 PUFF INHALATION ×2 (06:35→17:32)
[2021-01-21] MEDS: Paroxetine 20 MG Tablet 40 MG PO (06:35)
[2021-01-21] MEDS: Furosemide 40 MG Tablet PO (06:35)
[2021-01-21] MEDS: Metoprolol Tartrate 25 MG Tablet 6.25 MG PO ×2 (06:35→17:35)
[2021-01-21] MEDS: APIXABAN 2.5 MG TABLET PO ×2 (06:35→17:32)
[2021-01-21] MEDS: Pramipexole Di-HCl 1 MG Tablet PO ×2 (06:35→17:33)
[2021-01-21] MEDS: Umeclidinium Bromide Inhaler 1 PUFF INHALATION (06:35)
[2021-01-21] MEDS: Amiodarone 200 MG Tablet PO (06:35)
[2021-01-21] MEDS: Levothyroxine 50 MCG Tablet PO (06:35)
[2021-01-21] MEDS: Cyanocobalamin 500 MCG Tablet 1000 MCG PO (06:36)
[2021-01-21] MEDS: Iron Polysaccharide Complex 150 MG CAPSULE PO (06:36)
[2021-01-21] MEDS: Senna/Docusate Sodium 1 Tablet PO ×2 (06:36→17:33)
[2021-01-21] MEDS: Pantoprazole Sodium 40 MG Tablet PO ×2 (06:36→17:33)
[2021-01-21] MEDS: Nystatin Powder 15gm Bottle 1 APPLIC TOPICAL ×2 (06:38→17:36)
[2021-01-21] MEDS: Glucerna Shake 120 ML LIQUID PO (06:39)
[2021-01-21] MEDS: Menthol/Lanolin/Calamine/Znox 113 GM Tube 1 APPLIC TOPICAL ×2 (06:39→17:36)
[2021-01-21] MEDS: Polyethylene Glycol 3350 17 GM PACKET PO (06:39)
[2021-01-21] MEDS: Insulin Lispro 100 UNIT/ML INSULN.PEN 7 UNIT SC ×3 (08:31→17:31)
[2021-01-21] MEDS: Aspirin E.C. 81 MG Tablet PO (08:34)
[2021-01-21] MEDS: Folic Acid 1 MG Tablet PO (08:34)
[2021-01-21] MEDS: Calcium Carb/Vitamin D 1 TABLET Tablet PO (08:34)
[2021-01-21] MEDS: oxyCODONE 5 MG Tablet PO (09:45)
[2021-01-21 10:56] LABS: Bedside Glucose 173 mg/dL (70-110)
[2021-01-21 16:25] LABS: Bedside Glucose 105 mg/dL (70-110)
[2021-01-21 21:11] LABS: Bedside Glucose 160 mg/dL (70-110)
[2021-01-21] MEDS: Atorvastatin Calcium 80 MG Tablet PO (23:07)
[2021-01-22] VITALS (7 sets, daily range): BP systolic 145–147; BP diastolic 61–68; PULSE 57–79; RESP 12–19; TEMP 36.6–36.7; O2SAT 90–99
[2021-01-22] MEDS: Fluticasone/Salmeterol 232-14 Inhaler 1 PUFF INHALATION ×2 (05:08→18:10)
[2021-01-22] MEDS: Iron Polysaccharide Complex 150 MG CAPSULE PO (05:08)
[2021-01-22] MEDS: APIXABAN 2.5 MG TABLET PO ×2 (05:09→18:10)
[2021-01-22] MEDS: Cyanocobalamin 500 MCG Tablet 1000 MCG PO (05:09)
[2021-01-22] MEDS: Pantoprazole Sodium 40 MG Tablet PO ×2 (05:10→18:14)
[2021-01-22] MEDS: Pramipexole Di-HCl 1 MG Tablet PO ×2 (05:10→18:11)
[2021-01-22] MEDS: Furosemide 40 MG Tablet PO (05:10)
[2021-01-22] MEDS: Levothyroxine 50 MCG Tablet PO (05:10)
[2021-01-22] MEDS: Senna/Docusate Sodium 1 Tablet PO ×2 (05:10→18:14)
[2021-01-22] MEDS: Paroxetine 20 MG Tablet 40 MG PO (05:10)
[2021-01-22] MEDS: Polyethylene Glycol 3350 17 GM PACKET PO (05:11)
[2021-01-22] MEDS: Amiodarone 200 MG Tablet PO (05:11)
[2021-01-22] MEDS: Fluticasone 0.05% 1 SPRAY NASAL.SRY 2 SPRAY NASAL (05:12)
[2021-01-22] MEDS: 0.9% Saline Lock 10 ML Syringe IV (05:12)
[2021-01-22] MEDS: Metoprolol Tartrate 25 MG Tablet 6.25 MG PO ×2 (05:14→18:12)
[2021-01-22] MEDS: Menthol/Lanolin/Calamine/Znox 113 GM Tube 1 APPLIC TOPICAL ×2 (05:16→18:08)
[2021-01-22] MEDS: Umeclidinium Bromide Inhaler 1 PUFF INHALATION (05:17)
[2021-01-22] MEDS: Nystatin Powder 15gm Bottle 1 APPLIC TOPICAL ×2 (05:18→18:11)
[2021-01-22 05:44] LABS: Absolute Lymphocyte Count 1.17 X10^3/uL (0.83-4.51); Absolute Neutrophil Count 4.3 X10^3/uL (2.0-7.7); Basophil# 0.05 X10^3/uL; Basophil% 0.8 % (0-1); Differential Indicated SCAN CRITERIA MET; Eosinophil# 0.15 X10^3/uL; Eosinophils% 2.4 % (0-5); Hematocrit 24.5 % (37-47); Hemoglobin 6.7 g/dL (12.0-15.0); Lymphocyte # 1.17 X10^3/ul (4.0); Lymphocyte % 18.8 % (19-41); Mean Corp Hgb Conc 27.3 g/dL (32-36); Mean Corpuscular Hgb 25.5 pg (27.0-32.0); Mean Corpuscular Volume 93.2 fL (81-99); Mean Platelet Vol. 12.1 fl (6.2-12.0); Monocyte# 0.55 X10^3/uL; Monocyte% 8.8 % (0-10); NRBC Flagged by Analyzer 0.3 % (0-5); Neutrophil # 4.27 X10^3/uL (2.7-7.7); Neutrophil % 68.6 % (47-70); POSITIVE MORPHOLOGY YES; Platelet Count 240 K/mm3 (150-450); RBC Distribution Width CV 23.5 % (11.6-14.6); RBC Distribution Width SD 78.3 fl (35.1-43.9); Red Blood Count 2.63 M/mm3 (4.2-5.4); White Blood Count 6.2 K/mm3 (4.4-11.0)
[2021-01-22 05:58] LABS: Anion Gap 2 (5-15); BUN 37 mg/dL (7-18); BUN/Creat Ratio 32.7 RATIO (10-20); Calcium,Total 8.3 mg/dL (8.5-10.1); Chloride 103 mmol/L (98-107); Creatinine, Serum 1.13 mg/dL (0.55-1.02); EST Glomerular Filtration Rate 50 mL/min (>60); Est Glom Filt Rate - Afr Amer 60 mL/min (>60); Estimated Creatinine Clearance 31.37 ml/min; Glucose 120 mg/dL (74-106); Sodium Level 139 mmol/L (136-145)
[2021-01-22 06:06] LABS: Hypochromasia 2+; Microcytosis 1+
[2021-01-22 06:30] LABS: Bedside Glucose 129 mg/dL (70-110)
[2021-01-22] MEDS: oxyCODONE 5 MG Tablet PO (06:42)
[2021-01-22] MEDS: Insulin Lispro 100 UNIT/ML INSULN.PEN 7 UNIT SC ×3 (08:17→18:08)
[2021-01-22] MEDS: Aspirin E.C. 81 MG Tablet PO (08:18)
[2021-01-22] MEDS: Calcium Carb/Vitamin D 1 TABLET Tablet PO (08:18)
[2021-01-22] MEDS: Folic Acid 1 MG Tablet PO (08:18)
[2021-01-22 09:10] LABS: Hematocrit 24.8 % (37-47); Hemoglobin 6.8 g/dL (12.0-15.0)
--- NOTE | 2021-01-22 11:12 | NURSING ---
Addendum entered by Syl Rutherford 01/22/21 14:50: Called Dr. Nixon's office to schedule appt. they wanted recent labs faxed over. Awaiting on reply to see if Dr. Nixon would like to do another colonoscopy. Original Note: Pt updated about Dr. Connor wanting her to see Dr. Ellis for a Colonoscopy. Pt stated she would rather see Debora Almazan who she has been seeing since 2007. Will call and make an appt. and update Dr. Connor.
--- NOTE | 2021-01-22 15:41 | NURSING ---
PT APPOINTMENT CANCELED TODAY WITH DUE TO PT GETTING 2 UNITS OF BLOOD. RESCHEDULED FOR 01/30/21 AT 9AM. TRANSPORT NEEDS TO BE SET UP.
[2021-01-22 17:15] LABS: Bedside Glucose 107 mg/dL (70-110)
--- NOTE | 2021-01-22 18:29 | NURSING ---
PT DAUGHTER CAME IN TO GET PT KEYS,INSURANCE CARD,LICENCE AND SOC SECURITY CARDS. IT WAS OK'D BY PT AND SUSI BLANCO. RN AWARE
--- NOTE | 2021-01-22 21:06 | NURSING ---
Patient VS Bp-145/61, HR-57, RR-16, Temp-97.9, SpO2-96% via nasal cannula. Had a blood transfusion this am states, I am feeling okay. Will continue to monitor throughout the shift.
[2021-01-22] MEDS: Atorvastatin Calcium 80 MG Tablet PO (21:12)
[2021-01-22 22:10] LABS: Bedside Glucose 108 mg/dL (70-110)
[2021-01-23] VITALS (7 sets, daily range): BP systolic 129–135; BP diastolic 63–72; PULSE 60–63; RESP 12–16; TEMP 36.7–37.1; O2SAT 92–97
[2021-01-23] MEDS: oxyCODONE 5 MG Tablet PO ×2 (02:10→20:56)
[2021-01-23 05:42] LABS: Hematocrit 30.4 % (37-47); Hemoglobin 8.8 g/dL (12.0-15.0)
[2021-01-23] MEDS: Amiodarone 200 MG Tablet PO (05:51)
[2021-01-23] MEDS: Pramipexole Di-HCl 1 MG Tablet PO ×2 (05:51→17:38)
[2021-01-23] MEDS: Furosemide 40 MG Tablet PO (05:51)
[2021-01-23] MEDS: Cyanocobalamin 500 MCG Tablet 1000 MCG PO (05:52)
[2021-01-23] MEDS: Pantoprazole Sodium 40 MG Tablet PO ×2 (05:52→17:38)
[2021-01-23] MEDS: Senna/Docusate Sodium 1 Tablet PO ×2 (05:52→17:38)
[2021-01-23] MEDS: Polyethylene Glycol 3350 17 GM PACKET PO (05:52)
[2021-01-23] MEDS: APIXABAN 2.5 MG TABLET PO ×2 (05:52→17:36)
[2021-01-23] MEDS: Iron Polysaccharide Complex 150 MG CAPSULE PO (05:52)
[2021-01-23] MEDS: Metoprolol Tartrate 25 MG Tablet 6.25 MG PO ×2 (05:52→17:36)
[2021-01-23] MEDS: Paroxetine 20 MG Tablet 40 MG PO (05:52)
[2021-01-23] MEDS: Levothyroxine 50 MCG Tablet PO (05:52)
[2021-01-23] MEDS: Umeclidinium Bromide Inhaler 1 PUFF INHALATION (05:53)
[2021-01-23] MEDS: Fluticasone 0.05% 1 SPRAY NASAL.SRY 2 SPRAY NASAL (05:57)
[2021-01-23] MEDS: Nystatin Powder 15gm Bottle 1 APPLIC TOPICAL ×2 (06:00→17:38)
[2021-01-23] MEDS: Menthol/Lanolin/Calamine/Znox 113 GM Tube 1 APPLIC TOPICAL ×2 (06:00→17:34)
[2021-01-23] MEDS: Fluticasone/Salmeterol 232-14 Inhaler 1 PUFF INHALATION ×2 (06:01→17:35)
[2021-01-23] MEDS: 0.9% Saline Lock 10 ML Syringe IV (06:02)
[2021-01-23 06:46] LABS: Bedside Glucose 129 mg/dL (70-110)
[2021-01-23] MEDS: Insulin Lispro 100 UNIT/ML INSULN.PEN 7 UNIT SC ×3 (08:06→17:34)
[2021-01-23] MEDS: Folic Acid 1 MG Tablet PO (08:07)
[2021-01-23] MEDS: Aspirin E.C. 81 MG Tablet PO (08:07)
[2021-01-23] MEDS: Calcium Carb/Vitamin D 1 TABLET Tablet PO (08:07)
--- NOTE | 2021-01-23 10:09 | NURSING ---
Addendum entered by Rajni Crockett 01/23/21 11:07: is to round Tuesday and will be over to see her. Nursing updated Addendum entered by Rajni Crockett 01/23/21 11:02: office called back to ask about recent labs. She states that Dr. Lazar is out today but will try to get ahold of him. If not today they will call us on Tuesday. Nurse updated Original Note: This nurse called Dr. Lazar's office and updated on possible need for colonoscopy, staff said they would call us back and let us know what is decided and availability.
[2021-01-23 10:55] LABS: Bedside Glucose 159 mg/dL (70-110)
[2021-01-23 16:45] LABS: Bedside Glucose 160 mg/dL (70-110)
[2021-01-23] MEDS: Atorvastatin Calcium 80 MG Tablet PO (20:56)
[2021-01-23 21:46] LABS: Bedside Glucose 154 mg/dL (70-110)
[2021-01-23] MEDS: Zolpidem Tartrate 5 MG Tablet PO (22:15)
[2021-01-24 05:00] VITALS: BP 166/70; PULSE 66; RESP 16; TEMP 36.6; O2SAT 97
[2021-01-24] MEDS: Umeclidinium Bromide Inhaler 1 PUFF INHALATION (05:54)
[2021-01-24] MEDS: Fluticasone 0.05% 1 SPRAY NASAL.SRY 2 SPRAY NASAL (05:56)
[2021-01-24] MEDS: Fluticasone/Salmeterol 232-14 Inhaler 1 PUFF INHALATION ×2 (05:56→17:45)
[2021-01-24 05:57] VITALS: BP 166/70; PULSE 66
[2021-01-24] MEDS: Levothyroxine 50 MCG Tablet PO (05:57)
[2021-01-24] MEDS: Pantoprazole Sodium 40 MG Tablet PO ×2 (05:57→17:44)
[2021-01-24] MEDS: Senna/Docusate Sodium 1 Tablet PO ×2 (05:57→17:44)
[2021-01-24] MEDS: Polyethylene Glycol 3350 17 GM PACKET PO (05:57)
[2021-01-24] MEDS: Cyanocobalamin 500 MCG Tablet 1000 MCG PO (05:57)
[2021-01-24] MEDS: Metoprolol Tartrate 25 MG Tablet 6.25 MG PO ×2 (05:57→17:44)
[2021-01-24] MEDS: Pramipexole Di-HCl 1 MG Tablet PO ×2 (05:57→17:44)
[2021-01-24] MEDS: Menthol/Lanolin/Calamine/Znox 113 GM Tube 1 APPLIC TOPICAL ×2 (05:58→17:44)
[2021-01-24] MEDS: Iron Polysaccharide Complex 150 MG CAPSULE PO (05:58)
[2021-01-24] MEDS: Amiodarone 200 MG Tablet PO (05:58)
[2021-01-24] MEDS: Furosemide 40 MG Tablet PO (05:58)
[2021-01-24] MEDS: APIXABAN 2.5 MG TABLET PO ×2 (05:58→17:44)
[2021-01-24] MEDS: Paroxetine 20 MG Tablet 40 MG PO (05:58)
[2021-01-24] MEDS: Nystatin Powder 15gm Bottle 1 APPLIC TOPICAL ×2 (06:01→17:45)
[2021-01-24] MEDS: 0.9% Saline Lock 10 ML Syringe IV ×2 (06:01→16:17)
[2021-01-24 06:45] LABS: Bedside Glucose 71 mg/dL (70-110)
--- NOTE | 2021-01-24 07:01 | PN.SURG_ITS ---
Patient Problems: Active and Suspected Problems (Last Reviewed 01/19/21 @ 13:37 by Valerie Castro) Acute respiratory failure with hypoxia (Acute) Septic shock (Acute) Pneumonia (Acute) Hyperkalemia (Acute) Elevated liver enzymes (Acute) Debility (Acute) Acute kidney injury (Acute) Subjective: Patient reporting black stools and crampy abdominal pain - Physical Exam Vitals/I&O's: Vital Signs Temp Pulse Resp BP Pulse Ox 97.8 F 66 16 166/70 H 97 01/24/21 05:00 01/24/21 05:57 01/24/21 05:00 01/24/21 05:57 01/24/21 05:00 Oxygen Flow Rate (L/min) 4 Oxygen Delivery Method Nasal Cannula Weight: 185 lb 7 oz Body Mass Index (BMI) 39.3 Finger Stick Blood Glucose 112 Intake and Output for Last 24 Hours 01/22/21 01/23/21 01/24/21 23:59 23:59 23:59 Intake Total 600 / 600 1080 / 1080 Balance 600 / 600 1080 / 1080 General: Alert, Oriented x3 Lungs: Normal air movement Cardiovascular: Regular rate, Regular Rhythm Abdomen: Soft, Non-Distended, Tender - Generalized mild abdominal tenderness Extremities: No clubbing Laboratory Results 01/23/21 10:43: POC Glucose 159 H 01/23/21 16:36: POC Glucose 160 H 01/23/21 21:04: POC Glucose 154 H 01/24/21 06:09: POC Glucose 71 Current Medications Acetaminophen (Acetaminophen 500 Mg Tablet) 1,000 mg PO Q6H PRN PRN Reason: Pain Score 1-3 Last Admin: 01/15/21 21:00 Dose: 1,000 mg Documented by: Albuterol Sulfate (Albuterol 2.5 Mg/3 Ml Vial.Neb.) 2.5 mg INHALATION Q4H PRN PRN PRN Reason: SOB &/OR WHEEZING Last Admin: 01/14/21 00:09 Dose: 2.5 mg Documented by: Amiodarone HCl (Amiodarone 200 Mg Tablet) 200 mg PO DAILY [facility] Last Admin: 01/24/21 05:58 Dose: 200 mg Documented by: Apixaban (Apixaban 2.5 Mg Tablet) 2.5 mg PO BID [facility] Last Admin: 01/24/21 05:58 Dose: 2.5 mg Documented by: Aspirin (Aspirin E.C. 81 Mg Tablet) 81 mg PO DAILY@0800 [facility] Last Admin: 01/23/21 08:07 Dose: 81 mg Documented by: Atorvastatin Calcium (Atorvastatin Calcium 80 Mg Tablet) 80 mg PO QHS [facility] Last Admin: 01/23/21 20:56 Dose: 80 mg Documented by: Bisacodyl (Bisacodyl 5 Mg Tablet) 10 mg PO DAILY PRN PRN Reason: Constipation Last Admin: 01/19/21 07:56 Dose: 10 mg Documented by: Calamine/Phenol (Menthol/Lanolin/Calamine/Znox 113 Gm Tube) 1 applic TOPICAL BID [facility]; Protocol Last Admin: 01/24/21 05:58 Dose: 1 applic Documented by: Calcium/Vitamin D (Calcium Carb/Vitamin D 1 Tablet Tablet) [facility] Last Admin: 01/23/21 08:07 Dose: 1 tablet Documented by: Cyanocobalamin (Cyanocobalamin 500 Mcg Tablet) 1,000 mcg PO DAILY [facility] Last Admin: 01/24/21 05:57 Dose: 1,000 mcg Documented by: Fluticasone Propionate (Fluticasone 0.05% 1 [place] Nasal.Sry) 2 spray NASAL DAILY [facility] Last Admin: 01/24/21 05:56 Dose: 2 spray Documented by: Folic Acid (Folic Acid 1 Mg Tablet) 1 mg PO DAILYCM [facility] Last Admin: 01/23/21 08:07 Dose: 1 mg Documented by: Furosemide (Furosemide 40 Mg Tablet) 40 mg PO DAILY [facility] Last Admin: 01/24/21 05:58 Dose: 40 mg Documented by: Sodium Chloride () 500 mls @ 15 mls/hr IV PRN PRN PRN Reason: Blood Transfusion Insulin Glargine (Insulin Glargine 100 Units/Ml Pen) 15 units SC QHS [facility] Last Admin: 01/23/21 21:05 Dose: 15 u Documented by: Insulin Human Lispro (Insulin Lispro 100 Unit/Ml Insuln.Pen) 7 unit SC TIDAC [facility] Last Admin: 01/23/21 17:34 Dose: 7 u Documented by: Lactobacillus Acidophilus (Lactobacillus Acidophilus) 1 tablet PO DAILY [facility] Last Admin: 01/24/21 05:57 Dose: 1 tablet Documented by: Levothyroxine Sodium (Levothyroxine 50 Mcg Tablet) 50 mcg PO DAILY [facility] Last Admin: 01/24/21 05:57 Dose: 50 mcg Documented by: Magnesium Hydroxide (Magnesium Hydroxide 30 Ml Udc) 30 ml PO DAILY PRN PRN Reason: Constipation Metoprolol Tartrate (Metoprolol Tartrate 25 Mg Tablet) 6.25 mg PO BID [facility] Last Admin: 01/24/21 05:57 Dose: 6.25 mg Documented by: Nitroglycerin (Nitroglycerin (Inpatient Use) 0.4 Mg Tab.Subl) 0.4 mg SL Q5M PRN PRN Reason: CARDIAC/CHEST PAIN Nystatin (Nystatin Powder 15gm Bottle) 1 applic TOPICAL BID [facility]; Protocol Last Admin: 01/24/21 06:01 Dose: 1 applic Documented by: Oxycodone HCl (Oxycodone 5 Mg Tablet) 5 mg PO Q4H PRN PRN PRN Reason: Pain Score 6-10 Last Admin: 01/23/21 20:56 Dose: 5 mg Documented by: Pantoprazole Sodium (Pantoprazole Sodium 40 Mg Tablet) 40 mg PO BID [facility] Last Admin: 01/24/21 05:57 Dose: 40 mg Documented by: Paroxetine HCl (Paroxetine 20 Mg Tablet) 40 mg PO DAILY [facility] Last Admin: 01/24/21 05:58 Dose: 40 mg Documented by: Polyethylene Glycol (Polyethylene Glycol 3350 17 Gm Packet) 17 gm PO DAILY [facility] Last Admin: 01/24/21 05:57 Dose: 17 gm Documented by: Polysaccharide Iron Complex (Iron Polysaccharide Complex 150 Mg Capsule) 150 mg PO DAILY [facility] Last Admin: 01/24/21 05:58 Dose: 150 mg Documented by: Pramipexole Dihydrochloride (Pramipexole Di-Hcl 1 Mg Tablet) 1 mg PO BID [facility] Last Admin: 01/24/21 05:57 Dose: 1 mg Documented by: Fluticasone/Salmeterol (Fluticasone/Salmeterol 232-14 Inhaler) 1 puff INHALATION Q12 [facility] Last Admin: 01/24/21 05:56 Dose: 1 puff Documented by: Senna/Docusate Sodium (Senna/Docusate Sodium 1 Tablet) 1 tablet PO BID [facility] Last Admin: 01/24/21 05:57 Dose: 1 tablet Documented by: Sodium Chloride (0.9% Saline Lock 10 Ml Syringe) 10 - 40 ml IV UD PRN PRN Reason: Midline Flush Last Admin: 01/24/21 06:01 Dose: 20 ml Documented by: Sodium Chloride (0.9 % Nacl (Sterile) Posiflush 10 Ml) 10 - 40 ml IV UD PRN PRN Reason: Port access or dressing change Umeclidinium [place] (Umeclidinium [place] Inhaler) 1 puff INHALATION DAILY [facility] Last Admin: 01/24/21 05:54 Dose: 1 puff Documented by: Zolpidem Tartrate (Zolpidem Tartrate 5 Mg Tablet) 5 mg PO QHS PRN PRN Reason: INSOMNIA Last Admin: 01/23/21 22:15 Dose: 5 mg Documented by: Medical Necessity - Tobacco Use Smoking Status: Former smoker Tobacco Use: Non-smoker Assessment/Plan All Active Problems (Last Reviewed 01/19/21 @ 13:37 by Valerie Castro) Acute respiratory failure with hypoxia (Acute) Septic shock (Acute) Pneumonia (Acute) Hyperkalemia (Acute) Elevated liver enzymes (Acute) Cellulitis of right leg (Acute) Debility (Acute) Acute kidney injury (Acute) 75-year-old female with anemia and bleeding ulcer 1. The patient had a repeat labs 2 days ago which showed decreasing hemoglobin. She received a transfusion and had adequate response. The patient reports she is having very dark black stools with no gross blood. The patient had an EGD approximately 1 week ago that showed a bleeding prepyloric ulcer which was clipped. The patient was started on a PPI. The patient continues to have black stools and worsening anemia. 2. I believe the bleeding ulcer is the cause of her anemia. I will add Carafate to her regimen and she is already on a PPI. I do not believe her Eliquis is able to be stopped as it is for an aortic valve. I will plan to repeat EGD on Tuesday to see if the ulcer is still bleeding with possible injection or additional clips. Recheck CBC tomorrow. Charles Ellis MD Pager: [facility] [address] [place] [address], [address] [place] [address] Office:
[2021-01-24] MEDS: oxyCODONE 5 MG Tablet PO ×2 (08:02→20:41)
[2021-01-24] MEDS: Insulin Lispro 100 UNIT/ML INSULN.PEN 7 UNIT SC ×3 (08:03→17:44)
[2021-01-24] MEDS: Calcium Carb/Vitamin D 1 TABLET Tablet PO (08:03)
[2021-01-24] MEDS: Aspirin E.C. 81 MG Tablet PO (08:04)
[2021-01-24] MEDS: Folic Acid 1 MG Tablet PO (08:04)
[2021-01-24 11:06] LABS: Bedside Glucose 119 mg/dL (70-110)
[2021-01-24] MEDS: Sucralfate 1 GM Tablet PO ×3 (11:12→20:35)
[2021-01-24 13:40] VITALS: O2SAT 95
[2021-01-24 13:48] VITALS: BP 103/51; PULSE 72; RESP 18; TEMP 36.8; O2SAT 96
[2021-01-24 13:50] VITALS: BP 136/50; PULSE 88; RESP 18; TEMP 36.8; O2SAT 101
[2021-01-24 16:26] LABS: Bedside Glucose 109 mg/dL (70-110)
[2021-01-24 17:44] VITALS: PULSE 88
[2021-01-24] MEDS: Atorvastatin Calcium 80 MG Tablet PO (20:36)
[2021-01-24 21:26] LABS: Bedside Glucose 148 mg/dL (70-110)
--- NOTE | 2021-01-24 22:58 | CPS ---
pt refusing bipap at this time
[2021-01-25 05:00] VITALS: BP 118/58; PULSE 60; RESP 16; TEMP 36.8; O2SAT 96
[2021-01-25] MEDS: Fluticasone/Salmeterol 232-14 Inhaler 1 PUFF INHALATION ×2 (05:11→18:18)
[2021-01-25] MEDS: Pramipexole Di-HCl 1 MG Tablet PO ×2 (05:11→18:16)
[2021-01-25] MEDS: Pantoprazole Sodium 40 MG Tablet PO ×2 (05:11→18:16)
[2021-01-25] MEDS: Fluticasone 0.05% 1 SPRAY NASAL.SRY 2 SPRAY NASAL (05:11)
[2021-01-25] MEDS: Cyanocobalamin 500 MCG Tablet 1000 MCG PO (05:11)
[2021-01-25 05:12] VITALS: BP 118/58; PULSE 60
[2021-01-25] MEDS: Furosemide 40 MG Tablet PO (05:12)
[2021-01-25] MEDS: Amiodarone 200 MG Tablet PO (05:12)
[2021-01-25] MEDS: Polyethylene Glycol 3350 17 GM PACKET PO (05:12)
[2021-01-25] MEDS: Levothyroxine 50 MCG Tablet PO (05:12)
[2021-01-25] MEDS: APIXABAN 2.5 MG TABLET PO ×2 (05:12→18:16)
[2021-01-25] MEDS: Paroxetine 20 MG Tablet 40 MG PO (05:12)
[2021-01-25] MEDS: Senna/Docusate Sodium 1 Tablet PO ×2 (05:12→18:16)
[2021-01-25] MEDS: Metoprolol Tartrate 25 MG Tablet 6.25 MG PO ×2 (05:12→18:16)
[2021-01-25] MEDS: 0.9% Saline Lock 10 ML Syringe IV (05:14)
[2021-01-25] MEDS: Umeclidinium Bromide Inhaler 1 PUFF INHALATION (05:18)
[2021-01-25] MEDS: Iron Polysaccharide Complex 150 MG CAPSULE PO (05:18)
[2021-01-25] MEDS: Menthol/Lanolin/Calamine/Znox 113 GM Tube 1 APPLIC TOPICAL ×2 (05:21→18:19)
[2021-01-25 05:25] LABS: Hemoglobin 7.6 g/dL (12.0-15.0); Mean Corp Hgb Conc 28.1 g/dL (32-36); Mean Corpuscular Hgb 25.5 pg (27.0-32.0); Mean Corpuscular Volume 90.6 fL (81-99); Mean Platelet Vol. 11.8 fl (6.2-12.0); POSITIVE MORPHOLOGY YES; Platelet Count 387 K/mm3 (150-450); RBC Distribution Width CV 20.3 % (11.6-14.6); RBC Distribution Width SD 66.7 fl (35.1-43.9); Red Blood Count 2.98 M/mm3 (4.2-5.4); White Blood Count 5.6 K/mm3 (4.4-11.0)
[2021-01-25 05:30] LABS: Scan Indicated on CBC? Y/N YES- FLAGS NOTED
[2021-01-25 06:26] LABS: Bedside Glucose 107 mg/dL (70-110)
[2021-01-25] MEDS: Sucralfate 1 GM Tablet PO ×4 (07:00→20:56)
[2021-01-25] MEDS: Nystatin Powder 15gm Bottle 1 APPLIC TOPICAL ×2 (07:01→18:20)
[2021-01-25 07:26] VITALS: O2SAT 94
[2021-01-25] MEDS: Insulin Lispro 100 UNIT/ML INSULN.PEN 7 UNIT SC ×3 (08:55→18:21)
[2021-01-25] MEDS: Aspirin E.C. 81 MG Tablet PO (08:57)
[2021-01-25] MEDS: Folic Acid 1 MG Tablet PO (08:57)
[2021-01-25] MEDS: Calcium Carb/Vitamin D 1 TABLET Tablet PO (08:58)
[2021-01-25] MEDS: oxyCODONE 5 MG Tablet PO (10:46)
[2021-01-25 10:56] LABS: Bedside Glucose 172 mg/dL (70-110)
[2021-01-25 14:41] VITALS: BP 147/56; PULSE 85; RESP 18; TEMP 36; O2SAT 90
[2021-01-25 16:16] LABS: Bedside Glucose 105 mg/dL (70-110)
[2021-01-25 18:16] VITALS: PULSE 85
--- NOTE | 2021-01-25 20:54 | CPS ---
pt refusing bipap
[2021-01-25] MEDS: Atorvastatin Calcium 80 MG Tablet PO (20:56)
[2021-01-25 20:58] VITALS: PULSE 50; RESP 16; O2SAT 94
[2021-01-25 21:31] LABS: Bedside Glucose 74 mg/dL (70-110)
[2021-01-26 05:00] VITALS: BP 155/71; PULSE 53; TEMP 36.6; O2SAT 99
[2021-01-26 06:21] LABS: Bedside Glucose 62 mg/dL (70-110)
[2021-01-26] MEDS: Menthol/Lanolin/Calamine/Znox 113 GM Tube 1 APPLIC TOPICAL ×2 (06:27→17:34)
[2021-01-26] MEDS: Nystatin Powder 15gm Bottle 1 APPLIC TOPICAL ×2 (06:27→17:37)
[2021-01-26] MEDS: 0.9% Saline Lock 10 ML Syringe IV (06:32)
--- NOTE | 2021-01-26 06:50 | NURSING ---
Received phone call from nurse Jess in endo informs this nurse she will enter an order for a rapid COVID test. Projected time for EGD is 11 am.
--- NOTE | 2021-01-26 07:00 | NURSING ---
Paged Dr. Lazar with return phone call within minutes. Updated on Hbg of 7.6 on 01/25. Question if EGD will be completed as scheduled due to decreased Hgb from 01/24. Dr. Lazar confirms scope will be completed as scheduled due to the bleed. FBS 62 this am and will need to contact medical dr for orders as pt to remain NPO.
--- NOTE | 2021-01-26 07:15 | NURSING ---
Spoke w/ Dr. Gillespie, physician covering for Dr. Connor, via phone to update on FBS of 62. New order received for one amp of D50, H&H at 6pm, and Type and Screen for 2 units of PRBCs. Skin pink/pale, warm, and dry. Pt denies any dizziness, lightheadedness, chest pain, and/or increased shortness of breath. O2 at 4 lpm via nc. Pt asymptomatic during hypoglycemic episode. A&O x3, pt is not drowsy, speech is clear, andswers all questions appropriately, and repeatedly states, I feel just fine. Midline in place to SCOTTY and remains patent. Phone call placed to pharmacy and spoke w/ pharmacistZhen, to confirm this nurse is entering order correctly and he will send medication up via tube system immediately.
[2021-01-26 07:19] VITALS: O2SAT 98
[2021-01-26] MEDS: Dextrose 50%-Water 25 GM/50 ML DISP.SYRIN IV (07:33)
--- NOTE | 2021-01-26 07:53 | NURSING ---
Patient morning medication held due to NPO having a EGD done today. Patient blood sugar 62 this am made RN aware. Patient was alert and orient X3 no confusion, or shakiness this morning.
[2021-01-26 08:21] LABS: Bedside Glucose 136 mg/dL (70-110)
--- NOTE | 2021-01-26 09:35 | NURSING ---
Addendum entered by Kimberly Staton 01/26/21 12:43: Pt back on floor, VS WNL, pt alert oriented and appropriate , BS 92, full liquid diet chicken broth given. Original Note: Pt off floor to get EGD.
--- NOTE | 2021-01-26 11:18 | PCM.PN.BLA ---
Progress Note I performed an EGD on the patient and the patient had a small ulcer in the prepyloric region with adherent pigmented material. There was no active bleeding. My clips from the previous weeks EGD had already fallen off. I injected all areas around the ulcer with epinephrine and then placed more hemostatic clips. If the patient's melena and anemia continue she may need to have her Eliquis held. She is already on a PPI and Carafate. I will order a full liquid diet and continue to monitor H&H and she has been ordered for this evening and tomorrow morning. Charles Ellis MD Pager: [facility] [address] [place] [address], [address] [place] [address] Office: STROKE Vital Signs/Narrative: Vital Signs Pulse Ox 01/26/21 07:19 98
[2021-01-26] MEDS: Iron Polysaccharide Complex 150 MG CAPSULE PO (12:30)
[2021-01-26] MEDS: Paroxetine 20 MG Tablet 40 MG PO (12:30)
[2021-01-26] MEDS: Furosemide 40 MG Tablet PO (12:30)
[2021-01-26] MEDS: Amiodarone 200 MG Tablet PO (12:30)
[2021-01-26] MEDS: Sucralfate 1 GM Tablet PO ×3 (12:31→22:57)
[2021-01-26] MEDS: Umeclidinium Bromide Inhaler 1 PUFF INHALATION (12:33)
[2021-01-26] MEDS: Fluticasone 0.05% 1 SPRAY NASAL.SRY 2 SPRAY NASAL (12:34)
[2021-01-26 12:46] LABS: Bedside Glucose 92 mg/dL (70-110)
--- NOTE | 2021-01-26 12:51 | NURSING ---
Pt returned from EGD, report was called from [facility] stating new clips were placed, no MRI for 30 days, Mac anesthesia, full liquid diet. Pt assessed when she returned to floor BP 98/48, HR 55, SPO2 90% 5 liters O2, temp 97.5, RR 20, BS 92. Fluids encouraged and pt given applejuice and chicken broth
[2021-01-26 13:01] VITALS: BP 98/48; PULSE 55; RESP 20; TEMP 36.4; O2SAT 90
[2021-01-26 14:15] VITALS: BP 117/47; PULSE 60; RESP 20; TEMP 36.3; O2SAT 97
[2021-01-26 17:00] LABS: Bedside Glucose 60 mg/dL (70-110)
[2021-01-26] MEDS: Fluticasone/Salmeterol 232-14 Inhaler 1 PUFF INHALATION (17:32)
[2021-01-26] MEDS: APIXABAN 2.5 MG TABLET PO (17:32)
[2021-01-26] MEDS: Pantoprazole Sodium 40 MG Tablet PO (17:34)
[2021-01-26] MEDS: Pramipexole Di-HCl 1 MG Tablet PO (17:34)
[2021-01-26] MEDS: Senna/Docusate Sodium 1 Tablet PO (17:34)
[2021-01-26 18:55] VITALS: BP 125/61
[2021-01-26 18:56] LABS: Bedside Glucose 160 mg/dL (70-110)
[2021-01-26] MEDS: oxyCODONE 5 MG Tablet PO (20:41)
[2021-01-26 21:26] LABS: Bedside Glucose 163 mg/dL (70-110)
[2021-01-26] MEDS: Atorvastatin Calcium 80 MG Tablet PO (22:59)
[2021-01-27] VITALS (8 sets, daily range): BP systolic 129–134; BP diastolic 51–54; PULSE 49–68; RESP 12–20; TEMP 36.3–36.7; O2SAT 93–96
[2021-01-27] MEDS: Menthol/Lanolin/Calamine/Znox 113 GM Tube 1 APPLIC TOPICAL ×2 (06:05→17:11)
[2021-01-27 06:06] LABS: Hematocrit 31.4 % (37-47); Hemoglobin 8.1 g/dL (12.0-15.0)
[2021-01-27] MEDS: Nystatin Powder 15gm Bottle 1 APPLIC TOPICAL ×2 (06:06→17:12)
[2021-01-27 06:40] LABS: Bedside Glucose 98 mg/dL (70-110)
[2021-01-27] MEDS: Fluticasone 0.05% 1 SPRAY NASAL.SRY 2 SPRAY NASAL (07:30)
[2021-01-27] MEDS: APIXABAN 2.5 MG TABLET PO ×2 (07:30→17:07)
[2021-01-27] MEDS: Amiodarone 200 MG Tablet PO (07:30)
[2021-01-27] MEDS: Iron Polysaccharide Complex 150 MG CAPSULE PO (07:30)
[2021-01-27] MEDS: Fluticasone/Salmeterol 232-14 Inhaler 1 PUFF INHALATION ×2 (07:31→17:08)
[2021-01-27] MEDS: Furosemide 40 MG Tablet PO (07:31)
[2021-01-27] MEDS: Metoprolol Tartrate 25 MG Tablet 6.25 MG PO ×2 (07:32→17:08)
[2021-01-27] MEDS: Paroxetine 20 MG Tablet 40 MG PO (07:33)
[2021-01-27] MEDS: Polyethylene Glycol 3350 17 GM PACKET PO (07:33)
[2021-01-27] MEDS: Pramipexole Di-HCl 1 MG Tablet PO ×2 (07:33→17:07)
[2021-01-27] MEDS: Pantoprazole Sodium 40 MG Tablet PO ×2 (07:34→17:08)
[2021-01-27] MEDS: Levothyroxine 50 MCG Tablet PO (07:34)
[2021-01-27] MEDS: Senna/Docusate Sodium 1 Tablet PO ×2 (07:34→17:08)
[2021-01-27] MEDS: Umeclidinium Bromide Inhaler 1 PUFF INHALATION (07:34)
[2021-01-27] MEDS: Cyanocobalamin 500 MCG Tablet 1000 MCG PO (07:34)
[2021-01-27] MEDS: Sucralfate 1 GM Tablet PO ×4 (07:38→21:00)
[2021-01-27] MEDS: Insulin Lispro 100 UNIT/ML INSULN.PEN 7 UNIT SC ×2 (08:38→12:04)
[2021-01-27] MEDS: Aspirin E.C. 81 MG Tablet PO (08:40)
[2021-01-27] MEDS: Calcium Carb/Vitamin D 1 TABLET Tablet PO (08:40)
[2021-01-27] MEDS: Folic Acid 1 MG Tablet PO (08:40)
--- NOTE | 2021-01-27 10:18 | PT ---
recorded pt O2 prior to tx at 74% on 4L o2; Pt educated on proper breathing technique to facilitate improved recorvery time with good carry over from patient; Pt able to recover in 2min; Pt performed transfer from bed to chair with SbA; Recorded patient o2 post transfer at 63%; Pt with fair recovery was able to raise o2 to >90%
--- NOTE | 2021-01-27 10:26 | NURSING ---
therapy came to this nurse and stated that pt oxygen when standing dropped in to the 70s at 4L. in to see pt and placed new orders. also when pt up walking oxygen is to be increased to 6L then back down to 4l at rest. also respiratory called per to try and fit pt with another mask due to pt feels like she is claustrophobic. pt is also getting a blood transfusion tomorrow. 01/28. rn aware
--- NOTE | 2021-01-27 10:36 | PN_ITS ---
Progress Note Asked by nursing to see pt with a pulse ox of 77% when she stands and walks. She is adequately saturated on 4 LPM when she is at rest. She wears 4 LPM at home and she does not increase with exertion but, she does get SOB with exertion. She has a pulse oximeter at home. She has CPAP at home and wears it consistently but, in the hospital she is not able to wear the BIPAP because she has been given a full face mask and it makes her very claustrophobic. She admits to feeling tired during the day. She is coughing a little more than usual but the sputum is thick and sticky and difficult to expectorate. She was able to expectorate some sputum for me and it is thick and yellow/cotter. It will be sent for culture. She has no fever and sh e denies chills and sweats. She has no difference in her chest discomfort. She is alert and appropriate. She has no conversational dyspnea and she is not tachypneic at rest. She denies orthopnea. Last echocardiogram which was in 2020 had a 65% ejection fraction with mild to moderate pulmonary hypertension. Lungs-diminished but clear to auscultation without rales or wheezes. No ankle edema Heart-regular but bradycardic, no ectopy, no gallop ImPression's 1. COPD - She normally takes a mucolytic 2-3 times a day at home and she has not been on one in the hospital. She also uses aerosolized bronchodilators regularly at home at she is only on Albuterol aerosols PRN here. 2. Chronic respiratory failure with hypoxemia - not usually a CO2 retainer. 3. RIKKI - on CPAP at home. Not using here at the hospital because she gets claustrophobic with the full face mask she was given.......she feels as though she is drowning. 4. acute blood loss anemia due to UGI bleed. HGB is currently stable around 8 but this is not good enough for a pt with severe chronic lung disease and chronic hypoxemia. 5. hx of mechanical AV replacement - not able to stop the Eliquis.......but the HGB is stable now. 6. CRF stage 3 - vacillates between 3a and 3b 7. hypothyroidism - she has been started on Levothyroid. Hypothyroidism coupled with Coreg are likely responsible for the bradycardia. Have respiratory try her on a different mask Add Duoneb Q4H WA add Mucinex culture of the sputum Increase the oxygen to 6 LPM with exertion Check the pulse ox and HR with exertion........if she is still bradycardic with ambulation will need to consider decreasing the Coreg until she is euthyroid. I will recheck in the AM. If any fever will start and antibiotic. STROKE Vital Signs/Narrative: Vital Signs Pulse Pulse Ox 01/27/21 07:50 96 01/27/21 07:32 60 Inpatient E&M: [id number] Subs Hosp L2
--- NOTE | 2021-01-27 10:37 | NURSING ---
Blood transfusion ordered. Infusion center called and they can transfuse patient tomorrow at 0800. SUSI Streeter aware as well as Dr Gillespie.
--- NOTE | 2021-01-27 10:44 | NURSING ---
SPUTUM SENT PER DR. CANTRELL ORDERS.
--- NOTE | 2021-01-27 10:45 | CPS ---
Discussed using a nasal mask tonight w/BIPAP. Pt is willing to try it. this R.T. will pass this along to shift mgr. measured for nasal mask and placed onto machines circuit.
[2021-01-27 11:01] LABS: Bedside Glucose 119 mg/dL (70-110)
[2021-01-27] MEDS: oxyCODONE 5 MG Tablet PO ×2 (11:23→22:11)
[2021-01-27 16:26] LABS: Bedside Glucose 81 mg/dL (70-110)
[2021-01-27] MEDS: guaiFENesin 1,200 MG Tablet 1200 MG PO (17:07)
[2021-01-27] MEDS: 0.9% Saline Lock 10 ML Syringe IV ×2 (17:14→22:11)
[2021-01-27] MEDS: Ipratropium/Albuterol Sulfate 3 ML AMPUL.NEB INHALATION (19:30)
[2021-01-27] MEDS: Atorvastatin Calcium 80 MG Tablet PO (21:00)
[2021-01-27 21:55] LABS: Bedside Glucose 158 mg/dL (70-110)
[2021-01-28] VITALS (9 sets, daily range): BP systolic 115–155; BP diastolic 43–60; PULSE 55–60; RESP 12–20; TEMP 36.3–36.7; O2SAT 92–100
--- NOTE | 2021-01-28 01:42 | NURSING ---
Patient removed Bipap at this time, refused to put it back on. Nasal Cannula placed back on patient.
[2021-01-28] MEDS: Fluticasone 0.05% 1 SPRAY NASAL.SRY 2 SPRAY NASAL (05:21)
[2021-01-28] MEDS: Umeclidinium Bromide Inhaler 1 PUFF INHALATION (05:21)
[2021-01-28] MEDS: Fluticasone/Salmeterol 232-14 Inhaler 1 PUFF INHALATION ×2 (05:21→17:07)
[2021-01-28] MEDS: Polyethylene Glycol 3350 17 GM PACKET PO (05:22)
[2021-01-28] MEDS: Iron Polysaccharide Complex 150 MG CAPSULE PO (05:22)
[2021-01-28] MEDS: guaiFENesin 1,200 MG Tablet 1200 MG PO ×2 (05:22→17:08)
[2021-01-28] MEDS: Cyanocobalamin 500 MCG Tablet 1000 MCG PO (05:23)
[2021-01-28] MEDS: Levothyroxine 50 MCG Tablet PO (05:23)
[2021-01-28] MEDS: Metoprolol Tartrate 25 MG Tablet 6.25 MG PO ×2 (05:23→17:05)
[2021-01-28] MEDS: Sucralfate 1 GM Tablet PO ×3 (05:23→21:03)
[2021-01-28] MEDS: Senna/Docusate Sodium 1 Tablet PO ×2 (05:23→17:05)
[2021-01-28] MEDS: Pramipexole Di-HCl 1 MG Tablet PO ×2 (05:23→17:08)
[2021-01-28] MEDS: Paroxetine 20 MG Tablet 40 MG PO (05:23)
[2021-01-28] MEDS: Amiodarone 200 MG Tablet PO (05:23)
[2021-01-28] MEDS: APIXABAN 2.5 MG TABLET PO ×2 (05:23→17:09)
[2021-01-28] MEDS: Furosemide 40 MG Tablet PO (05:23)
[2021-01-28] MEDS: Pantoprazole Sodium 40 MG Tablet PO ×2 (05:28→17:05)
[2021-01-28] MEDS: Menthol/Lanolin/Calamine/Znox 113 GM Tube 1 APPLIC TOPICAL ×2 (05:30→17:07)
[2021-01-28] MEDS: Nystatin Powder 15gm Bottle 1 APPLIC TOPICAL ×2 (05:30→17:07)
--- NOTE | 2021-01-28 05:31 | NURSING ---
Patient hasn't had a BM since 01/24. Offered patient M.O.M or suppository. patient refused. Patient given Prune juice per request.
[2021-01-28 05:34] LABS: Anion Gap 2 (5-15); BUN 35 mg/dL (7-18); BUN/Creat Ratio 18.6 RATIO (10-20); Calcium,Total 8.1 mg/dL (8.5-10.1); Chloride 103 mmol/L (98-107); Creatinine, Serum 1.88 mg/dL (0.55-1.02); EST Glomerular Filtration Rate 28 mL/min (>60); Est Glom Filt Rate - Afr Amer 34 mL/min (>60); Estimated Creatinine Clearance 18.86 ml/min; Glucose 82 mg/dL (74-106); Potassium 4.5 mmol/L (3.5-5.1); Sodium Level 136 mmol/L (136-145)
[2021-01-28 06:21] LABS: Bedside Glucose 92 mg/dL (70-110)
[2021-01-28] MEDS: Ipratropium/Albuterol Sulfate 3 ML AMPUL.NEB INHALATION ×2 (06:55→19:15)
[2021-01-28 06:57] LABS: Hematocrit 28.2 % (37-47); Hemoglobin 7.7 g/dL (12.0-15.0)
[2021-01-28] MEDS: Calcium Carb/Vitamin D 1 TABLET Tablet PO (08:04)
[2021-01-28] MEDS: Folic Acid 1 MG Tablet PO (08:04)
[2021-01-28] MEDS: Aspirin E.C. 81 MG Tablet PO (08:04)
--- NOTE | 2021-01-28 14:21 | PCM.PN.BLA ---
Progress Note Remains afebrile. Vital signs are stable. She was 100% saturated on a 4 L nasal cannula at rest this morning and 98% saturated on a 6 L nasal cannula with exertion. All lab was personally reviewed. Hemoglobin today was 7.7, down from 8.1 on 01/27/2021. She was ordered 2 units of packed red blood cells yesterday which are to be transfused today. BMP shows a sodium of 136 and a potassium of 4.5. The CO2 is 31, down from 34 on 01/22/2021. Creatinine is increased at 1.88, up from 1.13 on 01/22/2021. Creatinine has ranged from 1.132 1.9 since 12/06/2020. Sputum Gram stain shows no white blood cells and is growing a gram-negative julieta which is not yet been identified. COHEN has improved with the increase in the nasal O2 with exertion. she also feels better, roxanna at night with Duonebs Q4H while awake.......she slept better last night and did not awaken SOB. She was able to wear the BIPAP for 4 hours and she feels more rested today. She also thinks the Mucinex has helped. she is sitting in the recliner and appears in NAD. She has no conversational dyspnea and she is not tachypneic at rest Lungs - few coarse crackles in the bases with no wheezing. she does not have PEP or IS in her room. HRRR no ankle edema ImPression's 1. COPD - She normally takes a mucolytic 2-3 times a day at home and she has not been on one in the hospital. She also uses aerosolized bronchodilators regularly at home at she is only on Albuterol aerosols PRN here. 2. Chronic respiratory failure with hypoxemia - not usually a CO2 retainer. 3. RIKKI - on CPAP at home. Not using here at the hospital because she gets claustrophobic with the full face mask she was given.......she feels as though she is drowning. 4. acute blood loss anemia due to UGI bleed. HGB is currently stable around 8 but this is not good enough for a pt with severe chronic lung disease and chronic hypoxemia. 5. hx of mechanical AV replacement - not able to stop the Eliquis.......but the HGB is stable now. 6. CRF stage 3 - vacillates between 3a and 3b 7. hypothyroidism - she has been started on Levothyroid. Hypothyroidism coupled with Coreg are likely responsible for the bradycardia. she swears to me that she takes her thyroid medication daily. Add IS and PEP Continue the scheduled aerosols. She received 2 units of PRBC's today Recheck CBC in the AM. No antibiotics at this time since there were no WBC's in the gm stain of the sputum and she is AF with no chills or sweats and she has improved with the above measures Will need to ask Dr. June if chronic acid suppression can affect the absorption of Levothyroid. Inpatient E&M: 20289 Subs Hosp L2
[2021-01-28] MEDS: oxyCODONE 5 MG Tablet PO ×2 (14:55→21:03)
[2021-01-28 16:41] LABS: Bedside Glucose 184 mg/dL (70-110)
[2021-01-28] MEDS: Insulin Lispro 100 UNIT/ML INSULN.PEN 7 UNIT SC (17:10)
[2021-01-28] MEDS: Bisacodyl 5 MG Tablet 10 MG PO (21:03)
[2021-01-28] MEDS: Atorvastatin Calcium 80 MG Tablet PO (21:03)
--- NOTE | 2021-01-28 21:22 | NURSING ---
Patient c/o sharp pain in upper right quadrant. Pain increases with palpation. Vitals obtained as noted. All with in normal limits. Bowel sounds present in all four quadrants. RN aware.
[2021-01-28 21:46] LABS: Bedside Glucose 106 mg/dL (70-110)
--- NOTE | 2021-01-28 23:19 | NURSING ---
Patient requested to take BiPap off at this time. Patient placed back on nasal cannula at 4 LPM. Respiratory notified.
--- NOTE | 2021-01-28 23:44 | CPS ---
Nurse called RT, pt asked to remove bipap and just wear O2 so nurse removed bipap and placed pt on nasal canula.
[2021-01-29] VITALS (7 sets, daily range): BP systolic 135–149; BP diastolic 60; PULSE 56–70; RESP 14–18; TEMP 36.2–36.4; O2SAT 93–99
[2021-01-29] MEDS: Umeclidinium Bromide Inhaler 1 PUFF INHALATION (04:45)
[2021-01-29] MEDS: Fluticasone 0.05% 1 SPRAY NASAL.SRY 2 SPRAY NASAL (04:45)
[2021-01-29] MEDS: Fluticasone/Salmeterol 232-14 Inhaler 1 PUFF INHALATION ×2 (04:45→18:15)
[2021-01-29] MEDS: Polyethylene Glycol 3350 17 GM PACKET PO (04:45)
[2021-01-29] MEDS: Paroxetine 20 MG Tablet 40 MG PO (04:46)
[2021-01-29] MEDS: Pramipexole Di-HCl 1 MG Tablet PO ×2 (04:46→20:02)
[2021-01-29] MEDS: Furosemide 40 MG Tablet PO (04:47)
[2021-01-29] MEDS: Metoprolol Tartrate 25 MG Tablet 6.25 MG PO ×2 (04:47→18:16)
[2021-01-29] MEDS: Iron Polysaccharide Complex 150 MG CAPSULE PO (04:47)
[2021-01-29] MEDS: Senna/Docusate Sodium 1 Tablet PO ×2 (04:47→18:19)
[2021-01-29] MEDS: Cyanocobalamin 500 MCG Tablet 1000 MCG PO (04:47)
[2021-01-29] MEDS: Pantoprazole Sodium 40 MG Tablet PO ×2 (04:47→18:18)
[2021-01-29] MEDS: Amiodarone 200 MG Tablet PO (04:47)
[2021-01-29] MEDS: Levothyroxine 50 MCG Tablet PO (04:47)
[2021-01-29] MEDS: Sucralfate 1 GM Tablet PO ×4 (04:48→20:02)
[2021-01-29] MEDS: guaiFENesin 1,200 MG Tablet 1200 MG PO ×2 (04:48→18:18)
[2021-01-29] MEDS: Menthol/Lanolin/Calamine/Znox 113 GM Tube 1 APPLIC TOPICAL ×2 (04:48→18:15)
[2021-01-29] MEDS: Nystatin Powder 15gm Bottle 1 APPLIC TOPICAL ×2 (04:48→18:18)
[2021-01-29] MEDS: APIXABAN 2.5 MG TABLET PO (04:48)
--- NOTE | 2021-01-29 04:56 | NURSING ---
Mid-line dressing changed to JARON per protocol. Applied surgical mask on patient, removed old PICC dressing, cleansed area with ChloraPrep, applied skin prep to area. No redness noted. Connector changed, flushed with 20 ml normal saline. No blood return noted still. Patient tolerated well.
[2021-01-29] MEDS: 0.9% Saline Lock 10 ML Syringe IV ×2 (04:59→16:28)
[2021-01-29 05:41] LABS: Absolute Lymphocyte Count 1.25 X10^3/uL (0.83-4.51); Absolute Neutrophil Count 4.1 X10^3/uL (2.0-7.7); Basophil# 0.06 X10^3/uL; Eosinophil# 0.06 X10^3/uL; Hematocrit 33.7 % (37-47); Hemoglobin 9.7 g/dL (12.0-15.0); Lymphocyte # 1.25 X10^3/ul (0.83-4.51); Mean Corp Hgb Conc 28.8 g/dL (32-36); Mean Corpuscular Hgb 26.2 pg (27.0-32.0); Mean Corpuscular Volume 91.1 fL (81-99); Mean Platelet Vol. 11.1 fl (6.2-12.0); Monocyte# 0.76 X10^3/uL; Monocyte% 12.2 % (0-10); NRBC Flagged by Analyzer 0 % (0-5); Neutrophil # 4.08 X10^3/uL (2.7-7.7); Neutrophil % 65.2 % (47-70); Platelet Count 483 K/mm3 (150-450); RBC Distribution Width CV 18.3 % (11.6-14.6); White Blood Count 6.3 K/mm3 (4.4-11.0)
[2021-01-29 05:59] LABS: Anion Gap 3 (5-15); BUN 35 mg/dL (7-18); BUN/Creat Ratio 19.9 RATIO (10-20); Calcium,Total 8.4 mg/dL (8.5-10.1); Chloride 102 mmol/L (98-107); Creatinine, Serum 1.76 mg/dL (0.55-1.02); EST Glomerular Filtration Rate 30 mL/min (>60); Est Glom Filt Rate - Afr Amer 36 mL/min (>60); Estimated Creatinine Clearance 20.14 ml/min; Glucose 104 mg/dL (74-106); Potassium 4.4 mmol/L (3.5-5.1); Sodium Level 134 mmol/L (136-145)
[2021-01-29 06:36] LABS: Bedside Glucose 131 mg/dL (70-110)
[2021-01-29] MEDS: Ipratropium/Albuterol Sulfate 3 ML AMPUL.NEB INHALATION ×2 (06:42→20:10)
--- NOTE | 2021-01-29 08:03 | PCM.PN.SRG ---
Patient Problems: Active and Suspected Problems (Last Reviewed 01/19/21 @ 13:37 by Valerie Castro) Acute respiratory failure with hypoxia (Acute) Septic shock (Acute) Pneumonia (Acute) Hyperkalemia (Acute) Elevated liver enzymes (Acute) Debility (Acute) Acute kidney injury (Acute) Subjective: Patient reports she did have some epigastric pain overnight. She did not notice if she had melena with her stool yesterday. - Physical Exam Vitals/I&O's: Vital Signs Temp Pulse Resp BP Pulse Ox 97.5 F L 58 L 16 135/60 H 99 01/29/21 04:44 01/29/21 04:47 01/29/21 04:44 01/29/21 04:47 01/29/21 04:44 Oxygen Flow Rate (L/min) 4 Oxygen Delivery Method Nasal Cannula Weight: 187 lb 6.4 oz Body Mass Index (BMI) 39.3 Finger Stick Blood Glucose 112 Intake and Output for Last 24 Hours 01/27/21 01/28/21 01/29/21 23:59 23:59 23:59 Intake Total 1040 / 1040 480 / 480 Balance 1040 / 1040 480 / 480 General: Alert, Oriented x3 Lungs: Normal air movement Cardiovascular: Regular rate, Regular Rhythm Abdomen: Soft, Non-Distended, Tender - Mild right upper quadrant tenderness to palpation Microbiology Past 72 Hours 01/27/21 10:20 Sputum, Expectorated/Coughed Gram Stain - Final 01/27/21 10:20 Sputum, Expectorated/Coughed Respiratory Culture - Final Serratia marcescens Laboratory Results 01/26/21 18:40: Blood Type Cancelled, Antibody Screen Cancelled, Crossmatch See Detail 01/28/21 16:24: POC Glucose 184 H 01/28/21 21:41: POC Glucose 106 01/29/21 05:05: WBC 6.3, RBC 3.70 L, Hgb 9.7 L, Hct 33.7 L, MCV 91.1, MCH 26.2 L, MCHC 28.8 L, RDW Std Deviation 60.0 H, RDW Coeff of Jeff 18.3 H, Plt Count 483 H, MPV 11.1, Immature Gran % (Auto) 0.600, Neut % (Auto) 65.2, Lymph % (Auto) 20.0, [place] % (Auto) 12.2 H, Eos % (Auto) 1.0, Baso % (Auto) 1.0, Absolute Neuts (auto) 4.1, Absolute Lymphs (auto) 1.25, Nucleated RBC % 0 01/29/21 05:05: Sodium 134 L, Potassium 4.4, Chloride 102, Carbon Dioxide 29.0, Anion Gap 3 L, BUN 35 H, Creatinine 1.76 H, Estim Creat Clear Calc 20.14, Est GFR (MDRD) Af Amer 36 L, Est GFR (MDRD) Non-Af 30 L, BUN/Creatinine Ratio 19.9, Glucose 104, Calcium 8.4 L 01/29/21 06:07: POC Glucose 131 H Current Medications Acetaminophen (Acetaminophen 500 Mg Tablet) 1,000 mg PO Q6H PRN PRN Reason: Pain Score 1-3 Last Admin: 01/15/21 21:00 Dose: 1,000 mg Documented by: Albuterol Sulfate (Albuterol 2.5 Mg/3 Ml Vial.Neb.) 2.5 mg INHALATION Q2H PRN PRN PRN Reason: SOB &/OR WHEEZING Albuterol/Ipratropium (Ipratropium/Albuterol Sulfate 3 Ml Ampul.Neb) 3 ml INHALATION Q4HWA.RT [facility] Last Admin: 01/28/21 19:15 Dose: 3 ml Documented by: Amiodarone HCl (Amiodarone 200 Mg Tablet) 200 mg PO DAILY [facility] Last Admin: 01/29/21 04:47 Dose: 200 mg Documented by: Apixaban (Apixaban 2.5 Mg Tablet) 2.5 mg PO BID [facility] Last Admin: 01/29/21 04:48 Dose: 2.5 mg Documented by: Aspirin (Aspirin E.C. 81 Mg Tablet) 81 mg PO DAILY@0800 [facility] Last Admin: 01/28/21 08:04 Dose: 81 mg Documented by: Atorvastatin Calcium (Atorvastatin Calcium 80 Mg Tablet) 80 mg PO QHS [facility] Last Admin: 01/28/21 21:03 Dose: 80 mg Documented by: Bisacodyl (Bisacodyl 5 Mg Tablet) 10 mg PO DAILY PRN PRN Reason: Constipation Last Admin: 01/28/21 21:03 Dose: 10 mg Documented by: Calamine/Phenol (Menthol/Lanolin/Calamine/Znox 113 Gm Tube) 1 applic TOPICAL BID [facility]; Protocol Last Admin: 01/29/21 04:48 Dose: 1 applic Documented by: Calcium/Vitamin D (Calcium Carb/Vitamin D 1 Tablet Tablet) 1 tablet PO DAILYCM [facility] Last Admin: 01/28/21 08:04 Dose: 1 tablet Documented by: Cyanocobalamin (Cyanocobalamin 500 Mcg Tablet) 1,000 mcg PO DAILY [facility] Last Admin: 01/29/21 04:47 Dose: 1,000 mcg Documented by: Fluticasone Propionate (Fluticasone 0.05% 1 [place] Nasal.Sry) 2 spray NASAL DAILY [facility] Last Admin: 01/29/21 04:45 Dose: 2 spray Documented by: Folic Acid (Folic Acid 1 Mg Tablet) 1 mg PO DAILYCM [facility] Last Admin: 01/28/21 08:04 Dose: 1 mg Documented by: Furosemide (Furosemide 40 Mg Tablet) 40 mg PO DAILY [facility] Last Admin: 01/29/21 04:47 Dose: 40 mg Documented by: Guaifenesin (Guaifenesin 1,200 Mg Tablet) 1,200 mg PO BID [facility] Last Admin: 01/29/21 04:48 Dose: 1,200 mg Documented by: Sodium Chloride () 500 mls @ 15 mls/hr IV PRN PRN PRN Reason: Blood Transfusion Insulin Glargine (Insulin Glargine 100 Units/Ml Pen) 15 units SC QHS [facility] Last Admin: 01/28/21 22:11 Dose: 10 u Documented by: Insulin Human Lispro (Insulin Lispro 100 Unit/Ml Insuln.Pen) 7 unit SC TIDAC [facility] Last Admin: 01/28/21 17:10 Dose: 7 u Documented by: Lactobacillus Acidophilus (Lactobacillus Acidophilus) 1 tablet PO DAILY [facility] Last Admin: 01/29/21 04:48 Dose: 1 tablet Documented by: Levothyroxine Sodium (Levothyroxine 50 Mcg Tablet) 50 mcg PO DAILY [facility] Last Admin: 01/29/21 04:47 Dose: 50 mcg Documented by: Magnesium Hydroxide (Magnesium Hydroxide 30 Ml Udc) 30 ml PO DAILY PRN PRN Reason: Constipation Metoprolol Tartrate (Metoprolol Tartrate 25 Mg Tablet) 6.25 mg PO BID [facility] Last Admin: 01/29/21 04:47 Dose: 6.25 mg Documented by: Nitroglycerin (Nitroglycerin (Inpatient Use) 0.4 Mg Tab.Subl) 0.4 mg SL Q5M PRN PRN Reason: CARDIAC/CHEST PAIN Nystatin (Nystatin Powder 15gm Bottle) 1 applic TOPICAL BID [facility]; Protocol Last Admin: 01/29/21 04:48 Dose: 1 applic Documented by: Oxycodone HCl (Oxycodone 5 Mg Tablet) 5 mg PO Q4H PRN PRN PRN Reason: Pain Score 6-10 Last Admin: 01/28/21 21:03 Dose: 5 mg Documented by: Pantoprazole Sodium (Pantoprazole Sodium 40 Mg Tablet) 40 mg PO BID [facility] Last Admin: 01/29/21 04:47 Dose: 40 mg Documented by: Paroxetine HCl (Paroxetine 20 Mg Tablet) 40 mg PO DAILY [facility] Last Admin: 01/29/21 04:46 Dose: 40 mg Documented by: Polyethylene Glycol (Polyethylene Glycol 3350 17 Gm Packet) 17 gm PO DAILY [facility] Last Admin: 01/29/21 04:45 Dose: 17 gm Documented by: Polysaccharide Iron Complex (Iron Polysaccharide Complex 150 Mg Capsule) 150 mg PO DAILY [facility] Last Admin: 01/29/21 04:47 Dose: 150 mg Documented by: Pramipexole Dihydrochloride (Pramipexole Di-Hcl 1 Mg Tablet) 1 mg PO BID [facility] Last Admin: 01/29/21 04:46 Dose: 1 mg Documented by: Fluticasone/Salmeterol (Fluticasone/Salmeterol 232-14 Inhaler) 1 puff INHALATION Q12 [facility] Last Admin: 01/29/21 04:45 Dose: 1 puff Documented by: Senna/Docusate Sodium (Senna/Docusate Sodium 1 Tablet) 1 tablet PO BID [facility] Last Admin: 01/29/21 04:47 Dose: 1 tablet Documented by: Sodium Chloride (0.9% Saline Lock 10 Ml Syringe) 10 - 40 ml IV UD PRN PRN Reason: Midline Flush Last Admin: 01/29/21 04:59 Dose: 20 ml Documented by: Sodium Chloride (0.9 % Nacl (Sterile) Posiflush 10 Ml) 10 - 40 ml IV UD PRN PRN Reason: Port access or dressing change Sucralfate (Sucralfate 1 Gm Tablet) 1 gm PO 1HR_ACHS [facility] Last Admin: 01/29/21 04:48 Dose: 1 gm Documented by: Umeclidinium [place] (Umeclidinium [place] Inhaler) 1 puff INHALATION DAILY [facility] Last Admin: 01/29/21 04:45 Dose: 1 puff Documented by: Zolpidem Tartrate (Zolpidem Tartrate 5 Mg Tablet) 5 mg PO QHS PRN PRN Reason: INSOMNIA Last Admin: 01/23/21 22:15 Dose: 5 mg Documented by: Medical Necessity - Tobacco Use Smoking Status: Former smoker Tobacco Use: Non-smoker Assessment/Plan All Active Problems (Last Reviewed 01/19/21 @ 13:37 by Valerie Castro) Acute respiratory failure with hypoxia (Acute) Septic shock (Acute) Pneumonia (Acute) Hyperkalemia (Acute) Elevated liver enzymes (Acute) Cellulitis of right leg (Acute) Debility (Acute) Acute kidney injury (Acute) 75-year-old female with bleeding gastric ulcer 1. The patient required transfusion again yesterday. Her hemoglobin was 9.7 this morning after 2 unit transfusion. Will recheck tomorrow or the next day. The patient is not sure if she had melena overnight. She is still having some right upper quadrant pain. I did discuss temporarily holding her Eliquis with Dr. Killian and he believe that is okay as she has a porcine valve not a mechanical valve. I discussed this is well with Dr. Verna gabriel and we will hold her Eliquis for 2 weeks to attempt to allow the ulcer to heal and she may continue a baby aspirin. Charles Ellis MD Pager: [facility] [address] [place] [address], [address] [place] [address] Office:
[2021-01-29] MEDS: Calcium Carb/Vitamin D 1 TABLET Tablet PO (08:07)
[2021-01-29] MEDS: Aspirin E.C. 81 MG Tablet PO (08:07)
[2021-01-29] MEDS: Insulin Lispro 100 UNIT/ML INSULN.PEN 7 UNIT SC (08:07)
[2021-01-29] MEDS: Folic Acid 1 MG Tablet PO (08:07)
[2021-01-29] MEDS: oxyCODONE 5 MG Tablet PO ×2 (08:11→16:27)
--- NOTE | 2021-01-29 10:46 | PCM.PN.BLA ---
Progress Note Afebrile Blood pressure is well controlled. Mildly bradycardic in the 55-60 range at rest but increases appropriately with exertion Pulse ox on 4 L nasal cannula at rest ranges from 93 to 99%. All lab was personally reviewed. Sodium is mildly decreased at 134 today and the BUN is 35 with a creatinine of 1.76 which is within her baseline. Calcium is decreased at 8.4 (will order an albumin). Hemoglobin today is 9.7, up from 7.7 following transfusion of 2 units of packed red blood cells yesterday. RDW is markedly elevated. The MCV is 91 and the MCH is decreased to 26.2. She currently has stage IV chronic renal failure fluctuating with stage IIIb. She has not had iron studies recently. White blood cell count and differential is unremarkable. Blood sugar record was reviewed. Alert, appropriate, no apparent distress, sitting in the chair at the bedside appears comfortable Lungs-diminished throughout with few coarse crackles in the bases but no wheezes, no conversational dyspnea and she is not tachypneic Heart-regular, distant heart sounds-likely secondary to body habitus, no gallop appreciated No ankle edema No calf tenderness ImPression's 1. COPD - She normally takes a mucolytic 2-3 times a day at home and she has not been on one in the hospital. She also uses aerosolized bronchodilators regularly at home at she is only on Albuterol aerosols PRN here. 2. Chronic respiratory failure with hypoxemia - not usually a CO2 retainer. 3. RIKKI - on CPAP at home. Not using here at the hospital because she gets claustrophobic with the full face mask she was given.......she feels as though she is drowning. 4. acute blood loss anemia due to UGI bleed. HGB is currently stable around 8 but this is not good enough for a pt with severe chronic lung disease and chronic hypoxemia. 5. hx of mechanical AV replacement - not able to stop the Eliquis.......but the HGB is stable now. 6. CRF stage 3 - vacillates between 3a and 3b 7. hypothyroidism - she has been started on Levothyroid. Hypothyroidism coupled with Coreg are likely responsible for the bradycardia. Check albumin today to correct calcium for hypoalbuminemia Decrease Lantus at at bedtime to 10 units. Adjust the mealtime insulin to 7 units every morning, 4 units with lunch and supper daily Continue the SSI TIDAC Will need a TSH and a T4 in 5 more weeks .......she was started on 50 mcg daily(was on 25 mcg daily) because the TSH was 32 and the T4 was 0.5 at admission. Check iron studies Paxil can interact with anticoagulants and with antiplatelet agents and lead to increased bleeding. It is also associated with hyponatremia due to SIADH. she is on a high dose, roxanna for someone with renal failure and the level of Paxil is likely 2-3 X's higher than expected at this does due to the RF. Will decrease the dose to 20 mg daily to help with bleeding and also to help with sodium Hold the Lasix in the AM and restart Tuesday AM. DC the Apixaban - restart in 2 weeks. she has a bioprosthetic valve replacement and not a mechanical valve. Recheck the H/H on Tuesday Decrease the Mirapex to once daily at bedtime secondary to bradycardia......the RLS may be due to iron deficiency and may be able to DC the Mirapex going forward Inpatient E&M: 69583 Subs Hosp L2
[2021-01-29 11:05] LABS: Bedside Glucose 83 mg/dL (70-110)
[2021-01-29] MEDS: Insulin Lispro 100 UNIT/ML INSULN.PEN SC ×2 (11:44→18:14)
[2021-01-29 12:15] LABS: Ferritin 30 ng/mL (8-252); Iron 60 ug/dL (50-170); Iron Binding Capacity,Total 595 ug/dL (250-450); PERCENT IRON SATURATION 10.1 % (15.0-55.0)
[2021-01-29 16:30] LABS: Bedside Glucose 113 mg/dL (70-110)
[2021-01-29] MEDS: Atorvastatin Calcium 80 MG Tablet PO (20:02)
--- NOTE | 2021-01-29 20:22 | CPS ---
pt states doesn't want to wear the hospital's bipap tonight
[2021-01-29 21:45] LABS: Bedside Glucose 165 mg/dL (70-110)
[2021-01-30] VITALS (10 sets, daily range): BP systolic 139–160; BP diastolic 59–63; PULSE 65–77; RESP 17–18; TEMP 36.3–36.6; O2SAT 88–94
[2021-01-30] MEDS: oxyCODONE 5 MG Tablet PO ×2 (03:02→18:36)
[2021-01-30] MEDS: Senna/Docusate Sodium 1 Tablet PO ×2 (05:49→17:07)
[2021-01-30] MEDS: Iron Polysaccharide Complex 150 MG CAPSULE PO (05:49)
[2021-01-30] MEDS: Amiodarone 200 MG Tablet PO (05:49)
[2021-01-30] MEDS: Metoprolol Tartrate 25 MG Tablet 6.25 MG PO ×2 (05:50→17:09)
[2021-01-30] MEDS: Menthol/Lanolin/Calamine/Znox 113 GM Tube 1 APPLIC TOPICAL ×2 (05:51→17:08)
[2021-01-30] MEDS: Pantoprazole Sodium 40 MG Tablet PO ×2 (05:51→17:07)
[2021-01-30] MEDS: Levothyroxine 50 MCG Tablet PO (05:52)
[2021-01-30] MEDS: Paroxetine 20 MG Tablet PO (05:52)
[2021-01-30] MEDS: Cyanocobalamin 500 MCG Tablet 1000 MCG PO (05:52)
[2021-01-30] MEDS: guaiFENesin 1,200 MG Tablet 1200 MG PO ×2 (05:54→17:07)
[2021-01-30] MEDS: Polyethylene Glycol 3350 17 GM PACKET PO (05:54)
[2021-01-30] MEDS: Umeclidinium Bromide Inhaler 1 PUFF INHALATION (05:56)
[2021-01-30] MEDS: Fluticasone/Salmeterol 232-14 Inhaler 1 PUFF INHALATION ×2 (05:56→17:10)
[2021-01-30] MEDS: Sucralfate 1 GM Tablet PO ×4 (05:57→22:31)
[2021-01-30] MEDS: Nystatin Powder 15gm Bottle 1 APPLIC TOPICAL ×2 (05:57→17:08)
[2021-01-30] MEDS: Fluticasone 0.05% 1 SPRAY NASAL.SRY 2 SPRAY NASAL (05:57)
[2021-01-30 07:00] LABS: Bedside Glucose 136 mg/dL (70-110)
[2021-01-30] MEDS: Ipratropium/Albuterol Sulfate 3 ML AMPUL.NEB INHALATION ×4 (07:30→20:30)
[2021-01-30] MEDS: Folic Acid 1 MG Tablet PO (10:29)
[2021-01-30] MEDS: Aspirin E.C. 81 MG Tablet PO (10:29)
[2021-01-30] MEDS: Calcium Carb/Vitamin D 1 TABLET Tablet PO (10:29)
[2021-01-30 11:01] LABS: Bedside Glucose 150 mg/dL (70-110)
[2021-01-30] MEDS: Insulin Lispro 100 UNIT/ML INSULN.PEN SC ×2 (11:36→17:08)
[2021-01-30] MEDS: 0.9% Saline Lock 10 ML Syringe IV (14:52)
--- NOTE | 2021-01-30 15:17 | NURSING ---
Dr. Becerra appointment today, N.O. Chest CT without contrast for interstitial changes and nodule, and prednisone 40mg x 3days, 30mg x3 days, 20mg x3days, 10mg x3days than stop . [employer] was called and precert started for CT, paperwork was faxed to [employer] per request.
--- NOTE | 2021-01-30 15:30 | NURSING ---
Faxed clinical notes for insurance review to [phone]. Case # [id number]. Waiting for response from insurance for approval of CT .
[2021-01-30 16:55] LABS: Bedside Glucose 173 mg/dL (70-110)
[2021-01-30] MEDS: Cefdinir 300 MG Capsule PO (17:06)
[2021-01-30] MEDS: predniSONE 20 MG Tablet 40 MG PO (17:07)
--- NOTE | 2021-01-30 17:48 | PCM.PN.BLA ---
Progress Note Remains afebrile. Vital signs are stable. She saw Dr. Becerra today who wants a CT scan of her chest to evaluate a pulmonary nodule and he placed her on a steroid taper. Sputum culture is growing 3+ Serratia marcescens. She has been started on Omnicef 300 mg BID. Lungs - diminished, no wheezing, few coarse crackles in the bases BL no edema H - regular - bradycardic at rest Impressions 1. acute exacerbation of COPD - due to acute bronchitis STROKE Vital Signs/Narrative: Vital Signs Temp Pulse Resp BP Pulse Ox 01/30/21 17:09 68 01/30/21 15:30 68 18 01/30/21 14:46 94 01/30/21 14:24 97.4 F L 69 18 139/63 H 90 Inpatient E&M: 75433 Subs Hosp L1
[2021-01-30 21:41] LABS: Bedside Glucose 182 mg/dL (70-110)
[2021-01-30] MEDS: Pramipexole Di-HCl 1 MG Tablet PO (22:30)
[2021-01-30] MEDS: Atorvastatin Calcium 80 MG Tablet PO (22:30)
[2021-01-30] MEDS: Zolpidem Tartrate 5 MG Tablet PO (22:35)
[2021-01-31] VITALS (8 sets, daily range): BP systolic 130–164; BP diastolic 55–61; PULSE 66–71; RESP 18–22; TEMP 36.5–36.7; O2SAT 92–98
[2021-01-31] MEDS: Umeclidinium Bromide Inhaler 1 PUFF INHALATION (05:53)
[2021-01-31] MEDS: Fluticasone 0.05% 1 SPRAY NASAL.SRY 2 SPRAY NASAL (05:53)
[2021-01-31] MEDS: Fluticasone/Salmeterol 232-14 Inhaler 1 PUFF INHALATION ×2 (05:53→17:07)
[2021-01-31] MEDS: Levothyroxine 50 MCG Tablet PO (05:55)
[2021-01-31] MEDS: Amiodarone 200 MG Tablet PO (05:55)
[2021-01-31] MEDS: Cyanocobalamin 500 MCG Tablet 1000 MCG PO (05:55)
[2021-01-31] MEDS: Pantoprazole Sodium 40 MG Tablet PO ×2 (05:55→17:11)
[2021-01-31] MEDS: guaiFENesin 1,200 MG Tablet 1200 MG PO ×2 (05:55→17:09)
[2021-01-31] MEDS: Senna/Docusate Sodium 1 Tablet PO ×2 (05:56→17:12)
[2021-01-31] MEDS: Paroxetine 20 MG Tablet PO (05:56)
[2021-01-31] MEDS: Iron Polysaccharide Complex 150 MG CAPSULE PO (05:56)
[2021-01-31] MEDS: Cefdinir 300 MG Capsule PO (05:56)
[2021-01-31] MEDS: Metoprolol Tartrate 25 MG Tablet 6.25 MG PO ×2 (05:59→17:09)
[2021-01-31] MEDS: Polyethylene Glycol 3350 17 GM PACKET PO (06:03)
[2021-01-31] MEDS: Nystatin Powder 15gm Bottle 1 APPLIC TOPICAL ×2 (06:04→20:59)
[2021-01-31] MEDS: Furosemide 40 MG Tablet PO (06:05)
[2021-01-31] MEDS: Menthol/Lanolin/Calamine/Znox 113 GM Tube 1 APPLIC TOPICAL ×2 (06:05→17:08)
[2021-01-31 06:40] LABS: Bedside Glucose 294 mg/dL (70-110)
[2021-01-31] MEDS: Ipratropium/Albuterol Sulfate 3 ML AMPUL.NEB INHALATION ×4 (06:58→20:11)
[2021-01-31] MEDS: Sucralfate 1 GM Tablet PO ×4 (07:55→21:01)
[2021-01-31] MEDS: Insulin Lispro 100 UNIT/ML INSULN.PEN 7 UNIT SC (07:57)
[2021-01-31] MEDS: Folic Acid 1 MG Tablet PO (07:57)
[2021-01-31] MEDS: Aspirin E.C. 81 MG Tablet PO (07:57)
[2021-01-31] MEDS: Calcium Carb/Vitamin D 1 TABLET Tablet PO (07:58)
[2021-01-31] MEDS: predniSONE 20 MG Tablet 40 MG PO (08:03)
[2021-01-31] MEDS: oxyCODONE 5 MG Tablet PO ×2 (08:05→21:09)
[2021-01-31 11:16] LABS: Bedside Glucose 350 mg/dL (70-110)
[2021-01-31] MEDS: Insulin Lispro 100 UNIT/ML INSULN.PEN SC ×2 (11:22→17:06)
[2021-01-31 17:00] LABS: Bedside Glucose 352 mg/dL (70-110)
[2021-01-31] MEDS: 0.9% Saline Lock 10 ML Syringe IV (17:05)
--- NOTE | 2021-01-31 17:46 | NURSING ---
dr gamble notified of blood sugar 352, order given to administer 10 units x1 humalog
[2021-01-31] MEDS: Insulin Lispro 100 UNIT/ML INSULN.PEN 10 UNIT SC (18:01)
--- NOTE | 2021-01-31 18:09 | NURSING ---
DAUGHTER UPDATED AT VISIT.
[2021-01-31] MEDS: Atorvastatin Calcium 80 MG Tablet PO (21:04)
[2021-01-31] MEDS: Pramipexole Di-HCl 1 MG Tablet PO (21:05)
[2021-01-31 22:40] LABS: Bedside Glucose 344 mg/dL (70-110)
[2021-02-01] VITALS (11 sets, daily range): BP systolic 145–150; BP diastolic 66–85; PULSE 63–71; RESP 16–20; TEMP 36.3–36.6; O2SAT 96–100
[2021-02-01] MEDS: Ipratropium/Albuterol Sulfate 3 ML AMPUL.NEB INHALATION ×6 (03:00→23:39)
[2021-02-01] MEDS: oxyCODONE 5 MG Tablet PO ×2 (03:23→21:15)
[2021-02-01] MEDS: Cyanocobalamin 500 MCG Tablet 1000 MCG PO (05:24)
[2021-02-01] MEDS: Fluticasone/Salmeterol 232-14 Inhaler 1 PUFF INHALATION ×2 (05:24→17:00)
[2021-02-01] MEDS: Senna/Docusate Sodium 1 Tablet PO ×2 (05:24→17:02)
[2021-02-01] MEDS: Fluticasone 0.05% 1 SPRAY NASAL.SRY 2 SPRAY NASAL (05:24)
[2021-02-01] MEDS: Paroxetine 20 MG Tablet PO (05:24)
[2021-02-01] MEDS: Umeclidinium Bromide Inhaler 1 PUFF INHALATION (05:24)
[2021-02-01] MEDS: guaiFENesin 1,200 MG Tablet 1200 MG PO ×2 (05:25→17:02)
[2021-02-01] MEDS: Amiodarone 200 MG Tablet PO (05:25)
[2021-02-01] MEDS: Levothyroxine 50 MCG Tablet PO (05:25)
[2021-02-01] MEDS: Sucralfate 1 GM Tablet PO ×4 (05:25→21:01)
[2021-02-01] MEDS: Iron Polysaccharide Complex 150 MG CAPSULE PO (05:25)
[2021-02-01] MEDS: Cefdinir 300 MG Capsule PO (05:25)
[2021-02-01] MEDS: Furosemide 40 MG Tablet PO (05:25)
[2021-02-01] MEDS: Pantoprazole Sodium 40 MG Tablet PO ×2 (05:25→17:01)
[2021-02-01] MEDS: Metoprolol Tartrate 25 MG Tablet 6.25 MG PO ×2 (05:25→17:03)
[2021-02-01] MEDS: Nystatin Powder 15gm Bottle 1 APPLIC TOPICAL ×2 (05:26→16:37)
[2021-02-01] MEDS: Menthol/Lanolin/Calamine/Znox 113 GM Tube 1 APPLIC TOPICAL ×2 (05:26→16:37)
[2021-02-01 06:46] LABS: Bedside Glucose 200 mg/dL (70-110)
[2021-02-01] MEDS: Insulin Lispro 100 UNIT/ML INSULN.PEN 15 UNIT SC (07:27)
[2021-02-01] MEDS: Folic Acid 1 MG Tablet PO (07:47)
[2021-02-01] MEDS: Aspirin E.C. 81 MG Tablet PO (07:47)
[2021-02-01] MEDS: predniSONE 20 MG Tablet 40 MG PO (07:48)
[2021-02-01] MEDS: Calcium Carb/Vitamin D 1 TABLET Tablet PO (07:48)
[2021-02-01] MEDS: Acetaminophen 500 MG Tablet 1000 MG PO (07:59)
--- NOTE | 2021-02-01 10:51 | NURSING ---
PT HAS SOME SWELLING TO FACE,SMALL AMOUNT OF EDEMA TO RIGHT ABDOMINAL AREA AND LOWER BACK. RN AWARE.
[2021-02-01] MEDS: 0.9% Saline Lock 10 ML Syringe IV (10:57)
--- NOTE | 2021-02-01 11:07 | NURSING ---
THIS NURSE INTO PT ROOM AND FOUND PT CRYING. ASKED PT WHAT WAS WRONG AND PT STATED I JUST DONT FEEL VERY WELL TODAY THEY JUST CLEANED MY APARTMENT OUT. PT STARTED CRYING MORE. ASKED PT IF THERE WAS ANY THING I COULD DO,PT STATED NO. STAYED AND TALKED WITH PT. RN AWARE.
[2021-02-01 11:16] LABS: Bedside Glucose 178 mg/dL (70-110)
[2021-02-01] MEDS: Insulin Lispro 100 UNIT/ML INSULN.PEN 10 UNIT SC ×2 (11:51→16:59)
[2021-02-01 16:40] LABS: Bedside Glucose 295 mg/dL (70-110)
[2021-02-01] MEDS: Pramipexole Di-HCl 1 MG Tablet PO (21:01)
[2021-02-01] MEDS: Atorvastatin Calcium 80 MG Tablet PO (21:01)
[2021-02-01 21:20] LABS: Bedside Glucose 385 mg/dL (70-110)
--- NOTE | 2021-02-01 23:10 | PCA ---
This PATTERN DRAFTER asked pt if she would like to wash up and change gown to get ready for bed, pt stated she had already changed her gown and washed up earlier today and did not want to this evening. em
[2021-02-02] VITALS (8 sets, daily range): BP systolic 127–155; BP diastolic 72–79; PULSE 7–100; RESP 18–20; TEMP 36.3–36.6; O2SAT 94–97
[2021-02-02] MEDS: Insulin Lispro 100 UNIT/ML INSULN.PEN 20 UNIT SC (00:04)
[2021-02-02 06:21] LABS: Bedside Glucose 202 mg/dL (70-110)
[2021-02-02] MEDS: Ipratropium/Albuterol Sulfate 3 ML AMPUL.NEB INHALATION ×2 (06:35→20:40)
[2021-02-02] MEDS: Umeclidinium Bromide Inhaler 1 PUFF INHALATION (07:02)
[2021-02-02] MEDS: Fluticasone 0.05% 1 SPRAY NASAL.SRY 2 SPRAY NASAL (07:02)
[2021-02-02] MEDS: Fluticasone/Salmeterol 232-14 Inhaler 1 PUFF INHALATION ×2 (07:03→17:06)
[2021-02-02] MEDS: Sucralfate 1 GM Tablet PO ×3 (07:03→21:40)
[2021-02-02] MEDS: Amiodarone 200 MG Tablet PO (07:03)
[2021-02-02] MEDS: Metoprolol Tartrate 25 MG Tablet 6.25 MG PO ×2 (07:03→17:15)
[2021-02-02] MEDS: Menthol/Lanolin/Calamine/Znox 113 GM Tube 1 APPLIC TOPICAL ×2 (07:03→17:09)
[2021-02-02] MEDS: guaiFENesin 1,200 MG Tablet 1200 MG PO ×2 (07:04→17:09)
[2021-02-02] MEDS: Nystatin Powder 15gm Bottle 1 APPLIC TOPICAL ×2 (07:04→17:10)
[2021-02-02] MEDS: Iron Polysaccharide Complex 150 MG CAPSULE PO (07:04)
[2021-02-02] MEDS: Furosemide 40 MG Tablet PO (07:04)
[2021-02-02] MEDS: Levothyroxine 50 MCG Tablet PO (07:05)
[2021-02-02] MEDS: Pantoprazole Sodium 40 MG Tablet PO ×2 (07:05→17:09)
[2021-02-02] MEDS: Senna/Docusate Sodium 1 Tablet PO ×2 (07:05→17:10)
[2021-02-02] MEDS: Paroxetine 20 MG Tablet PO (07:05)
[2021-02-02] MEDS: Cyanocobalamin 500 MCG Tablet 1000 MCG PO (07:05)
[2021-02-02] MEDS: Cefdinir 300 MG Capsule PO (07:06)
[2021-02-02] MEDS: Insulin Lispro 100 UNIT/ML INSULN.PEN 13 UNIT SC ×3 (07:53→17:08)
[2021-02-02] MEDS: Folic Acid 1 MG Tablet PO (07:54)
[2021-02-02] MEDS: Calcium Carb/Vitamin D 1 TABLET Tablet PO (07:54)
[2021-02-02] MEDS: Aspirin E.C. 81 MG Tablet PO (07:54)
[2021-02-02] MEDS: predniSONE 10 MG Tablet 30 MG PO (07:55)
--- NOTE | 2021-02-02 09:20 | NURSING ---
Prior Auth called in to [facility], for CT of ABD/Pelvis with contrast, CT was approved, Authorization # [id number]. [facility] the [facility] preauth of CT of chest ordered by Dr. Becerra case #[id number], field representative/health education reported notes are being up it and there should be an answer by the end of the day
[2021-02-02 10:50] LABS: Bedside Glucose 182 mg/dL (70-110)
[2021-02-02] MEDS: 0.9% Saline Lock 10 ML Syringe IV ×2 (14:56→17:07)
[2021-02-02 15:01] LABS: Bedside Glucose 195 mg/dL (70-110)
[2021-02-02 18:01] LABS: Bedside Glucose 216 mg/dL (70-110)
[2021-02-02] MEDS: Pramipexole Di-HCl 1 MG Tablet PO (21:40)
[2021-02-02] MEDS: Atorvastatin Calcium 80 MG Tablet PO (21:41)
[2021-02-02 21:45] LABS: Bedside Glucose 110 mg/dL (70-110)
[2021-02-02] MEDS: oxyCODONE 5 MG Tablet PO (21:46)
[2021-02-03] VITALS (9 sets, daily range): BP systolic 142–176; BP diastolic 67–72; PULSE 54–84; RESP 12–20; TEMP 36.2–36.8; O2SAT 95–99
[2021-02-03] MEDS: Fluticasone/Salmeterol 232-14 Inhaler 1 PUFF INHALATION ×2 (05:20→17:54)
[2021-02-03] MEDS: Fluticasone 0.05% 1 SPRAY NASAL.SRY 2 SPRAY NASAL (05:20)
[2021-02-03] MEDS: Umeclidinium Bromide Inhaler 1 PUFF INHALATION (05:21)
[2021-02-03] MEDS: Furosemide 40 MG Tablet PO (05:22)
[2021-02-03] MEDS: Sucralfate 1 GM Tablet PO ×4 (05:22→22:02)
[2021-02-03] MEDS: guaiFENesin 1,200 MG Tablet 1200 MG PO ×2 (05:22→17:51)
[2021-02-03] MEDS: Amiodarone 200 MG Tablet PO (05:22)
[2021-02-03] MEDS: Iron Polysaccharide Complex 150 MG CAPSULE PO (05:22)
[2021-02-03] MEDS: Cefdinir 300 MG Capsule PO (05:22)
[2021-02-03] MEDS: Cyanocobalamin 500 MCG Tablet 1000 MCG PO (05:22)
[2021-02-03] MEDS: Pantoprazole Sodium 40 MG Tablet PO ×2 (05:22→17:51)
[2021-02-03] MEDS: Paroxetine 20 MG Tablet PO (05:22)
[2021-02-03] MEDS: Polyethylene Glycol 3350 17 GM PACKET PO (05:22)
[2021-02-03] MEDS: Nystatin Powder 15gm Bottle 1 APPLIC TOPICAL ×2 (05:23→17:50)
[2021-02-03] MEDS: Levothyroxine 50 MCG Tablet PO (05:23)
[2021-02-03] MEDS: Senna/Docusate Sodium 1 Tablet PO ×2 (05:23→17:51)
[2021-02-03] MEDS: Menthol/Lanolin/Calamine/Znox 113 GM Tube 1 APPLIC TOPICAL ×2 (05:23→17:49)
[2021-02-03] MEDS: Metoprolol Tartrate 25 MG Tablet 6.25 MG PO ×2 (05:27→17:52)
[2021-02-03 05:54] LABS: Hematocrit 32.6 % (37-47); Hemoglobin 9.2 g/dL (12.0-15.0)
--- NOTE | 2021-02-03 06:33 | NURSING ---
Attempted to flush patient's midline. While flushing, NS coming out of catheter and leaking through dressing. RN aware. Note left fro Dr. Connor.
[2021-02-03 06:50] LABS: Bedside Glucose 108 mg/dL (70-110)
[2021-02-03] MEDS: Ipratropium/Albuterol Sulfate 3 ML AMPUL.NEB INHALATION ×4 (06:50→19:38)
[2021-02-03] MEDS: oxyCODONE 5 MG Tablet PO ×3 (08:02→22:15)
[2021-02-03] MEDS: Calcium Carb/Vitamin D 1 TABLET Tablet PO (08:03)
[2021-02-03] MEDS: Folic Acid 1 MG Tablet PO (08:04)
[2021-02-03] MEDS: Insulin Lispro 100 UNIT/ML INSULN.PEN 13 UNIT SC ×3 (08:04→18:17)
[2021-02-03] MEDS: predniSONE 10 MG Tablet 30 MG PO (08:04)
[2021-02-03] MEDS: Aspirin E.C. 81 MG Tablet PO (08:05)
[2021-02-03 11:11] LABS: Bedside Glucose 98 mg/dL (70-110)
--- NOTE | 2021-02-03 11:46 | NURSING ---
pt stated that her pain in sides and front abdominal has increased. this nurse and rn looked at pt and found in crease of swelling in areas to around back. note left for
[2021-02-03 16:16] LABS: Bedside Glucose 115 mg/dL (70-110)
[2021-02-03] MEDS: Lactulose 20 GM/30 ML UDC PO (18:29)
[2021-02-03 21:41] LABS: Bedside Glucose 191 mg/dL (70-110)
[2021-02-03] MEDS: Atorvastatin Calcium 80 MG Tablet PO (22:02)
[2021-02-03] MEDS: Pramipexole Di-HCl 1 MG Tablet PO (22:02)
[2021-02-04] VITALS (8 sets, daily range): BP systolic 147–148; BP diastolic 57–60; PULSE 63–69; RESP 16–18; TEMP 36.2–36.3; O2SAT 95
[2021-02-04] MEDS: Furosemide 40 MG Tablet PO (04:13)
[2021-02-04] MEDS: Amiodarone 200 MG Tablet PO (04:13)
[2021-02-04] MEDS: Pantoprazole Sodium 40 MG Tablet PO ×2 (04:13→18:05)
[2021-02-04] MEDS: Iron Polysaccharide Complex 150 MG CAPSULE PO (04:14)
[2021-02-04] MEDS: Metoprolol Tartrate 25 MG Tablet 6.25 MG PO ×2 (04:14→18:12)
[2021-02-04] MEDS: Cyanocobalamin 500 MCG Tablet 1000 MCG PO (04:16)
[2021-02-04] MEDS: Sucralfate 1 GM Tablet PO ×4 (04:17→21:04)
[2021-02-04] MEDS: Menthol/Lanolin/Calamine/Znox 113 GM Tube 1 APPLIC TOPICAL ×2 (04:17→16:36)
[2021-02-04] MEDS: guaiFENesin 1,200 MG Tablet 1200 MG PO ×2 (04:17→18:05)
[2021-02-04] MEDS: Cefdinir 300 MG Capsule PO (04:17)
[2021-02-04] MEDS: Senna/Docusate Sodium 1 Tablet PO ×2 (04:18→16:35)
[2021-02-04] MEDS: Levothyroxine 50 MCG Tablet PO (04:18)
[2021-02-04] MEDS: Polyethylene Glycol 3350 17 GM PACKET PO (04:18)
[2021-02-04] MEDS: Paroxetine 20 MG Tablet PO (04:18)
[2021-02-04] MEDS: Nystatin Powder 15gm Bottle 1 APPLIC TOPICAL ×2 (04:19→16:36)
[2021-02-04] MEDS: Fluticasone/Salmeterol 232-14 Inhaler 1 PUFF INHALATION ×2 (04:20→18:04)
[2021-02-04] MEDS: Fluticasone 0.05% 1 SPRAY NASAL.SRY 2 SPRAY NASAL (04:20)
[2021-02-04] MEDS: Umeclidinium Bromide Inhaler 1 PUFF INHALATION (04:21)
[2021-02-04] MEDS: oxyCODONE 5 MG Tablet PO ×2 (04:27→22:21)
[2021-02-04 06:31] LABS: Bedside Glucose 169 mg/dL (70-110)
[2021-02-04] MEDS: Ipratropium/Albuterol Sulfate 3 ML AMPUL.NEB INHALATION ×4 (07:30→18:40)
[2021-02-04] MEDS: Aspirin E.C. 81 MG Tablet PO (07:41)
[2021-02-04] MEDS: predniSONE 10 MG Tablet 30 MG PO (07:41)
[2021-02-04] MEDS: Calcium Carb/Vitamin D 1 TABLET Tablet PO (07:41)
[2021-02-04] MEDS: Folic Acid 1 MG Tablet PO (07:41)
[2021-02-04] MEDS: Insulin Lispro 100 UNIT/ML INSULN.PEN 13 UNIT SC ×2 (08:30→16:33)
[2021-02-04 10:56] LABS: Bedside Glucose 90 mg/dL (70-110)
[2021-02-04 16:36] LABS: Bedside Glucose 394 mg/dL (70-110)
[2021-02-04] MEDS: Atorvastatin Calcium 80 MG Tablet PO (21:03)
[2021-02-04] MEDS: Pramipexole Di-HCl 1 MG Tablet PO (21:06)
[2021-02-04 21:30] LABS: Bedside Glucose 270 mg/dL (70-110)
[2021-02-04] MEDS: Zolpidem Tartrate 5 MG Tablet PO (22:21)
[2021-02-05] VITALS (9 sets, daily range): BP systolic 146–168; BP diastolic 62–77; PULSE 54–64; RESP 16–22; TEMP 36.3–36.6; O2SAT 93–99
[2021-02-05] MEDS: Fluticasone/Salmeterol 232-14 Inhaler 1 PUFF INHALATION ×2 (05:59→17:26)
[2021-02-05] MEDS: Umeclidinium Bromide Inhaler 1 PUFF INHALATION (05:59)
[2021-02-05] MEDS: Cefdinir 300 MG Capsule PO (06:00)
[2021-02-05] MEDS: Sucralfate 1 GM Tablet PO ×4 (06:00→21:16)
[2021-02-05] MEDS: Amiodarone 200 MG Tablet PO (06:00)
[2021-02-05] MEDS: Fluticasone 0.05% 1 SPRAY NASAL.SRY 2 SPRAY NASAL (06:00)
[2021-02-05] MEDS: guaiFENesin 1,200 MG Tablet 1200 MG PO ×2 (06:00→17:22)
[2021-02-05] MEDS: Cyanocobalamin 500 MCG Tablet 1000 MCG PO (06:00)
[2021-02-05] MEDS: Metoprolol Tartrate 25 MG Tablet 6.25 MG PO ×2 (06:01→17:22)
[2021-02-05] MEDS: Polyethylene Glycol 3350 17 GM PACKET PO (06:01)
[2021-02-05] MEDS: Pantoprazole Sodium 40 MG Tablet PO ×2 (06:01→17:24)
[2021-02-05] MEDS: Iron Polysaccharide Complex 150 MG CAPSULE PO (06:01)
[2021-02-05] MEDS: Paroxetine 20 MG Tablet PO (06:01)
[2021-02-05] MEDS: Furosemide 40 MG Tablet PO (06:01)
[2021-02-05] MEDS: Nystatin Powder 15gm Bottle 1 APPLIC TOPICAL ×2 (06:02→17:28)
[2021-02-05] MEDS: Senna/Docusate Sodium 1 Tablet PO ×2 (06:02→17:24)
[2021-02-05] MEDS: Menthol/Lanolin/Calamine/Znox 113 GM Tube 1 APPLIC TOPICAL ×2 (06:02→17:25)
[2021-02-05] MEDS: Levothyroxine 50 MCG Tablet PO (06:02)
[2021-02-05 06:03] LABS: Absolute Lymphocyte Count 1.69 X10^3/uL (0.83-4.51); Basophil# 0.06 X10^3/uL; Basophil% 0.5 % (0-1); Eosinophil# 0.02 X10^3/uL; Eosinophils% 0.2 % (0-5); Hematocrit 33.9 % (37-47); Hemoglobin 9.4 g/dL (12.0-15.0); Lymphocyte # 1.69 X10^3/ul (0.83-4.51); Lymphocyte % 15.3 % (19-41); Mean Corp Hgb Conc 27.7 g/dL (32-36); Mean Corpuscular Hgb 24.4 pg (27.0-32.0); Mean Corpuscular Volume 87.8 fL (81-99); Mean Platelet Vol. 11.1 fl (6.2-12.0); Monocyte# 1.19 X10^3/uL; Monocyte% 10.7 % (0-10); NRBC Flagged by Analyzer 0 % (0-5); Neutrophil # 8.02 X10^3/uL (2.7-7.7); Neutrophil % 72.5 % (47-70); Platelet Count 453 K/mm3 (150-450); RBC Distribution Width CV 18.7 % (11.6-14.6); RBC Distribution Width SD 60.3 fl (35.1-43.9); Red Blood Count 3.86 M/mm3 (4.2-5.4); White Blood Count 11.1 K/mm3 (4.4-11.0)
[2021-02-05 06:25] LABS: Bedside Glucose 144 mg/dL (70-110)
[2021-02-05 06:29] LABS: Anion Gap 2 (5-15); BUN 40 mg/dL (7-18); BUN/Creat Ratio 28.4 RATIO (10-20); Calcium,Total 8.4 mg/dL (8.5-10.1); Chloride 103 mmol/L (98-107); Creatinine, Serum 1.41 mg/dL (0.55-1.02); EST Glomerular Filtration Rate 39 mL/min (>60); Est Glom Filt Rate - Afr Amer 47 mL/min (>60); Estimated Creatinine Clearance 25.14 ml/min; Glucose 116 mg/dL (74-106); Sodium Level 138 mmol/L (136-145)
[2021-02-05] MEDS: Calcium Carb/Vitamin D 1 TABLET Tablet PO (08:19)
[2021-02-05] MEDS: predniSONE 20 MG Tablet PO (08:19)
[2021-02-05] MEDS: Insulin Lispro 100 UNIT/ML INSULN.PEN 13 UNIT SC ×3 (08:19→17:20)
[2021-02-05] MEDS: Folic Acid 1 MG Tablet PO (08:19)
[2021-02-05] MEDS: Aspirin E.C. 81 MG Tablet PO (08:19)
[2021-02-05] MEDS: oxyCODONE 5 MG Tablet PO ×2 (08:22→21:17)
[2021-02-05] MEDS: Ipratropium/Albuterol Sulfate 3 ML AMPUL.NEB INHALATION ×4 (11:14→23:17)
[2021-02-05 11:16] LABS: Bedside Glucose 69 mg/dL (70-110)
--- NOTE | 2021-02-05 15:40 | NURSING ---
THERAPY VOICING CONCERN OVER PT GAINING WEIGHT AND EDEMA TO ABD. THERAPY STATES PT IS GAINING TWO LBS EVERY DAY. WEIGHT OBTAINED TODAY AND IS STABLE, 02/0371=533.6LBS, 02/0523=348.5LBS. THERAPY STATES PT ABD IS EDEMATOUS. PT STATES MY BELLY FEELS GREAT, IT'S NOT SWOLLEN AND IT'S SOFT. ABD EVALUATED BY THIS NURSE- SOFT, PROTRUDING STRETCH LESTER NOTED, NON TENDER. PT DENIES PAIN, SWELLING, SOB OR OTHER SYMPTOMS. WILL CONTINUE TO MONITOR.
[2021-02-05 16:10] LABS: Bedside Glucose 180 mg/dL (70-110)
--- NOTE | 2021-02-05 17:33 | NURSING ---
Notified Dr. Connor of therapy's concerns. Dr. Connor assessed the patient in her room.
[2021-02-05] MEDS: Pramipexole Di-HCl 1 MG Tablet PO (21:17)
[2021-02-05] MEDS: Atorvastatin Calcium 80 MG Tablet PO (21:17)
[2021-02-05 22:06] LABS: Bedside Glucose 150 mg/dL (70-110)
[2021-02-05] MEDS: Zolpidem Tartrate 5 MG Tablet PO (22:42)
[2021-02-06] VITALS (11 sets, daily range): BP systolic 148–184; BP diastolic 70–86; PULSE 53–71; RESP 18–24; TEMP 36.1–36.2; O2SAT 90–98
[2021-02-06] MEDS: Cyanocobalamin 500 MCG Tablet 1000 MCG PO (05:53)
[2021-02-06] MEDS: Pantoprazole Sodium 40 MG Tablet PO ×2 (05:54→17:21)
[2021-02-06] MEDS: Senna/Docusate Sodium 1 Tablet PO ×2 (05:54→17:21)
[2021-02-06] MEDS: Levothyroxine 50 MCG Tablet PO (05:54)
[2021-02-06] MEDS: Paroxetine 20 MG Tablet PO (05:55)
[2021-02-06] MEDS: Iron Polysaccharide Complex 150 MG CAPSULE PO (05:55)
[2021-02-06] MEDS: Cefdinir 300 MG Capsule PO (05:55)
[2021-02-06] MEDS: Metoprolol Tartrate 25 MG Tablet 6.25 MG PO ×2 (05:55→17:19)
[2021-02-06] MEDS: Menthol/Lanolin/Calamine/Znox 113 GM Tube 1 APPLIC TOPICAL ×2 (05:56→17:17)
[2021-02-06] MEDS: Furosemide 40 MG Tablet PO (05:56)
[2021-02-06] MEDS: guaiFENesin 1,200 MG Tablet 1200 MG PO ×2 (05:57→17:19)
[2021-02-06] MEDS: Fluticasone 0.05% 1 SPRAY NASAL.SRY 2 SPRAY NASAL (05:57)
[2021-02-06] MEDS: Polyethylene Glycol 3350 17 GM PACKET PO (05:57)
[2021-02-06] MEDS: Amiodarone 200 MG Tablet PO (05:57)
[2021-02-06] MEDS: Fluticasone/Salmeterol 232-14 Inhaler 1 PUFF INHALATION ×2 (05:58→17:16)
[2021-02-06] MEDS: Umeclidinium Bromide Inhaler 1 PUFF INHALATION (05:58)
[2021-02-06] MEDS: Nystatin Powder 15gm Bottle 1 APPLIC TOPICAL ×2 (05:59→17:22)
[2021-02-06] MEDS: Sucralfate 1 GM Tablet PO ×4 (06:00→20:19)
[2021-02-06 06:21] LABS: Bedside Glucose 93 mg/dL (70-110)
[2021-02-06] MEDS: Ipratropium/Albuterol Sulfate 3 ML AMPUL.NEB INHALATION ×5 (07:08→23:15)
[2021-02-06] MEDS: oxyCODONE 5 MG Tablet PO ×2 (08:26→22:24)
[2021-02-06] MEDS: Aspirin E.C. 81 MG Tablet PO (08:28)
[2021-02-06] MEDS: Calcium Carb/Vitamin D 1 TABLET Tablet PO (08:28)
[2021-02-06] MEDS: Folic Acid 1 MG Tablet PO (08:28)
[2021-02-06] MEDS: Insulin Lispro 100 UNIT/ML INSULN.PEN 13 UNIT SC ×3 (08:29→17:17)
[2021-02-06] MEDS: predniSONE 20 MG Tablet PO (08:29)
[2021-02-06 11:30] LABS: Bedside Glucose 159 mg/dL (70-110)
--- NOTE | 2021-02-06 13:33 | PCM.TCUNOT ---
Vitals/I&O's: Vital Signs Temp Pulse Resp BP Pulse Ox 97.0 F L 60 19 H 148/86 H 94 02/06/21 05:00 02/06/21 10:55 02/06/21 10:55 02/06/21 05:55 02/06/21 11:15 Oxygen Flow Rate (L/min) 4 Oxygen Delivery Method Nasal Cannula Weight: 83.234 kg Body Mass Index (BMI) 39.3 Finger Stick Blood Glucose 112 Intake and Output for Last 24 Hours 02/04/21 02/05/21 02/06/21 23:59 23:59 23:59 Intake Total 840 / 840 1080 / 1080 720 / 720 Balance 840 / 840 1080 / 1080 720 / 720 Laboratory Results 02/05/21 16:02: POC Glucose 180 H 02/05/21 21:52: POC Glucose 150 H 02/06/21 06:10: POC Glucose 93 02/06/21 11:17: POC Glucose 159 H Past Medical History Past Medical History (Chronic Problems): Chronic Problems (Last Updated 01/29/21 @ 09:51 by Cristina Chavarria) Other specified peripheral vascular diseases (Chronic) Non-pressure chronic ulcer of other part of left foot with fat layer exposed (Chronic) Chronic ulcer of great toe of right foot with fat layer exposed (Chronic) Fracture of right great toe (Chronic) Depression (Chronic) Peripheral arterial occlusive disease (Chronic) Diabetic polyneuropathy (Chronic) Atrial fibrillation (Chronic) Hypertension (Chronic) Hypokalemia (Chronic) Osteoporosis (Chronic) Gastroesophageal reflux disease (Chronic) Insomnia (Chronic) Obesity (Chronic) Acute on chronic diastolic CHF (congestive heart failure) (Chronic) COPD exacerbation (Chronic) Diabetes (Chronic) Toxic multinodular goiter (Chronic) Polyneuropathy due to type 2 diabetes mellitus (Chronic) COPD (chronic obstructive pulmonary disease) (Chronic) Acute on chronic respiratory failure with hypoxia (Chronic) Paroxysmal atrial fibrillation (Chronic) Anemia (Chronic) Non-rheumatic aortic stenosis (Chronic) H/O aortic valve replacement (Chronic 12/03/16) TAVR: 23 mm Guillaume-Sapiens S3 valve 12/03/2016 Chronic diastolic heart failure (Chronic) Left carotid artery stenosis (Chronic) Right bundle branch block (RBBB) (Chronic) Hyperlipidemia (Chronic) Essential (primary) hypertension (Chronic) Medical History: Medical History (Last Updated 01/29/21 @ 09:51 by Cristina Chavarria) Upper GI hemorrhage (Acute) Onset Date: 01/16/21 K92.2 oozing superficial gastric ulcer with adherent clot was found in the prepyloric region of the stomach. Biopsies were taken with a cold forceps for Helicobacter pylori testing. To prevent bleeding after the biopsy, two hemostatic clips were successfully placed. There was no bleeding at the end of the procedure. Paroxysmal atrial fibrillation (Chronic) I48.0 Anemia (Chronic) D64.9 Non-rheumatic aortic stenosis (Chronic) I35.0 Chronic diastolic heart failure (Chronic) I50.32 Left carotid artery stenosis (Chronic) I65.22 Right bundle branch block (RBBB) (Chronic) I45.10 Hyperlipidemia (Chronic) E78.5 Essential (primary) hypertension (Chronic) I10 Type 2 diabetes mellitus E11.9 Anxiety F41.9 Arthritis M19.90 Asthma J45.909 Breast lump N63.0 COPD (chronic obstructive pulmonary disease) J44.9 Carotid artery stenosis I65.29 Carpal tunnel syndrome G56.00 Depression F32.9 Fibromyalgia M79.7 GERD (gastroesophageal reflux disease) K21.9 H/O transfusion of whole blood Z92.89 Hypothyroidism E03.9 IBS (irritable bowel syndrome) K58.9 MTHFR mutation E72.12 Obesity E66.9 Osteoporosis M81.0 RLS (restless legs syndrome) G25.81 Skin cancer C44.90 Tuberculosis A15.9 Secondary pulmonary arterial hypertension I27.21 Thrombocytopenia D69.6 Secondary to sepsis versus heparin-induced thrombocytopenia Non-STEMI (non-ST elevated myocardial infarction) (Inactive) Onset Date: 09/27/19 I21.4 Seasonal allergies J30.2 Allergies ciprofloxacin [From Cipro] Allergy (Verified 01/19/21 13:36) Rash ciprofloxacin HCl [From Cipro] Allergy (Verified 01/19/21 13:36) Rash gabapentin [From Neurontin] Allergy (Verified 01/19/21 13:36) Rash heparin Allergy (Verified 01/19/21 13:36) Low platelets tuberculin, purified protein deriva Adverse Reaction (Verified 01/19/21 13:36) Other Home Medications: Ambulatory Orders Medication Instructions Recorded Albuterol Aerosols [Ventolin 2.5 mg INHALATION Q4H PRN PRN 09/26/19 Aerosols] Albuterol IH (ProAir) [Proair Hfa] 2 puff INHALATION Q6H PRN PRN 09/26/19 Cyanocobalamin (Vitamin B-12) 1,000 mcg PO DAILY 09/26/19 [Vitamin B-12] Fluticasone 0.05% [Flonase Nasal 2 spray NASAL DAILY 09/26/19 Pitcher] Fluticasone/Salmeterol [Advair Hfa 2 puff INHALATION BID 09/26/19 115-21 Mcg Inhaler] L.acidoph,Paracasei, B.lactis 1 each PO DAILY 09/26/19 [Probiotic] Nystatin [Nyamyc] 30 gm TP BID 09/26/19 Paroxetine HCl [Paxil] 40 mg PO DAILY 09/26/19 Ropinirole HCl 2 mg PO BID 09/26/19 Tiotropium [place] [Spiriva] 18 mcg IH DAILY 09/26/19 calcium carbonate 500 mg (1,250 1 tablet PO DAILY tablet 01/11/20 mg)-vitamin D3 200 unit tablet omeprazole 20 mg capsule,delayed 40 mg PO DAILY cap 09/03/20 release nitroglycerin 0.4 mg sublingual 0.4 mg SL PRN PRN #25 tablet 10/30/20 tablet Amiodarone HCl 200 mg PO DAILY 12/12/20 Aspirin E.C. [Ecotrin] 81 mg PO DAILY@0800 12/12/20 Atorvastatin Calcium [Lipitor] 80 mg PO QHS 12/12/20 Cefdinir [Omnicef [equiv]] 300 mg PO Q12H 12/12/20 Denosumab [Prolia] 60 mg SC [id number] 12/12/20 Insulin Glargine [Lantus SoloStar 15 units SC BREAKFAST 12/12/20 Pen] Insulin Lispro [Humalog KwikPen] 8 unit SC TIDCM 12/12/20 Insulin Lispro [Humalog KwikPen] See Protocol SC TIDCM 12/12/20 Iron Polysaccharide Complex 150 mg PO DAILY #0 12/12/20 [Ferrex 150] Levothyroxine Sodium [Synthroid] 25 mcg PO DAILY 12/12/20 Metoprolol Tartrate 25 mg PO BID 12/12/20 Suvorexant [Belsomra] 20 mg PO QHS #0 12/12/20 Folic Acid 1 mg PO DAILY 12/28/20 Pramipexole Di-HCl [Mirapex] 1 mg PO DAILY 12/28/20 Umeclidinium [place] Inhaler 1 puff IH DAILY 12/28/20 [Incruse Ellipta Inhaler] Furosemide [Lasix] 40 mg PO DAILY #0 12/31/20 Prednisone [Deltasone] 40 mg PO DAILY 12/31/20 Smz/Tmp Ds [Bactrim Ds] 1 tablet PO DAILY 12/31/20 Surgical History: Surgical History (Last Reviewed 01/19/21 @ 13:37 by Valerie Castro) H/O aortic valve replacement (Chronic) Onset Date: 12/03/16 Z95.2 TAVR: 23 mm Guillaume-Sapiens S3 valve 12/03/2016 H/O: hysterectomy Z98.890, Z90.710 H/O laminectomy Z98.890 History of left heart catheterization Onset Date: 09/03/16 Z98.890 History of tympanoplasty Z98.890 Hx of melanoma excision Z98.890, Z85.820 1997 Hx of rotator cuff surgery Z98.890 JAIME S/P hip replacement Z96.649 S/p bilateral carpal tunnel release Z98.890 Surgical History: appendectomy - Right hip replacement, back surgery, laminectomy, carpal tunnel surgery, right leg hematoma extraction, hysterectomy, rotator cuff repair, total hip arthroplasty - Right., - - Aortic valve replacement, TAVR, Laminectomy, Tympanostomy, Melanoma excision, Right carpal tunnel release. 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 DEVELOPER history Lives: Alone Smoking Status: Former smoker Tobacco Use: Non-smoker Alcohol: None Drugs: None - *Family History Maternal Family History: Family History (Last Reviewed 01/19/21 @ 13:37 by Valerie Castro) Mother Arthritis Diabetes Hormone deficiency CVA (cerebral vascular accident) Colon cancer Cancer Sister Bleeding disorder CVA (cerebral vascular accident) Colon cancer Daughter Cancer Seizures Father Diabetes Leukemia Grandmother Diabetes Unknown Asthma Heart disease Hypertension High cholesterol Thyroid disorder Osteoporosis Cancer Tuberculosis History Items: No pertinent history Patient Problems: Active and Suspected Problems (Last Updated 01/29/21 @ 09:51 by Cristina Chavarria) Acute respiratory failure with hypoxia (Acute) Septic shock (Acute) Pneumonia (Acute) Hyperkalemia (Acute) Elevated liver enzymes (Acute) Debility (Acute) Acute kidney injury (Acute) - Physical Exam Vitals/I&O's: Vital Signs Temp Pulse Resp BP Pulse Ox 97.0 F L 60 19 H 148/86 H 94 02/06/21 05:00 02/06/21 10:55 02/06/21 10:55 02/06/21 05:55 02/06/21 11:15 Oxygen Flow Rate (L/min) 4 Oxygen Delivery Method Nasal Cannula Weight: 83.234 kg Body Mass Index (BMI) 39.3 Finger Stick Blood Glucose 112 Intake and Output for Last 24 Hours 02/04/21 02/05/21 02/06/21 23:59 23:59 23:59 Intake Total 840 / 840 1080 / 1080 720 / 720 Balance 840 / 840 1080 / 1080 720 / 720 General: Alert, Oriented x3, Cooperative HEENT: Atraumatic, PERRLA, EOMI, Normocephalic Neck: Supple, No JVD, Negative Carotid Bruits Lungs: Clear to auscultation, Normal air movement Cardiovascular: Regular rate, No murmurs Abdomen: Bowel Sounds Present, Soft, Non Tender Extremities: No edema, Capillary Refill Less than 3 Seconds Skin: No rashes, No breakdown Musculoskeletal: No Tenderness to Palpation of Joints or Extremities Neurological: Cranial nerves II-XII grossly intact Psych/Mental Status: Normal Affect, Appropriate Laboratory Results 02/05/21 16:02: POC Glucose 180 H 02/05/21 21:52: POC Glucose 150 H 02/06/21 06:10: POC Glucose 93 02/06/21 11:17: POC Glucose 159 H Current Medications Acetaminophen (Acetaminophen 500 Mg Tablet) 1,000 mg PO Q6H PRN PRN Reason: Pain Score 1-3 Last Admin: 02/01/21 07:59 Dose: 1,000 mg Documented by: Albuterol Sulfate (Albuterol 2.5 Mg/3 Ml Vial.Neb.) 2.5 mg INHALATION Q2H PRN PRN PRN Reason: SOB &/OR WHEEZING Albuterol/Ipratropium (Ipratropium/Albuterol Sulfate 3 Ml Ampul.Neb) 3 ml INHALATION Q4HWA.RT DIAMOND Last Admin: 02/06/21 10:55 Dose: 3 ml Documented by: Amiodarone HCl (Amiodarone 200 Mg Tablet) 200 mg PO DAILY [facility] Last Admin: 02/06/21 05:57 Dose: 200 mg Documented by: Aspirin (Aspirin E.C. 81 Mg Tablet) 81 mg PO DAILY@0800 [facility] Last Admin: 02/06/21 08:28 Dose: 81 mg Documented by: Atorvastatin Calcium (Atorvastatin Calcium 80 Mg Tablet) 80 mg PO QHS [facility] Last Admin: 02/05/21 21:17 Dose: 80 mg Documented by: Bisacodyl (Bisacodyl 5 Mg Tablet) 10 mg PO DAILY PRN PRN Reason: Constipation Last Admin: 01/28/21 21:03 Dose: 10 mg Documented by: Calamine/Phenol (Menthol/Lanolin/Calamine/Znox 113 Gm Tube) 1 applic TOPICAL BID [facility]; Protocol Last Admin: 02/06/21 05:56 Dose: 1 applic Documented by: Calcium/Vitamin D (Calcium Carb/Vitamin D 1 Tablet Tablet) [facility] Last Admin: 02/06/21 08:28 Dose: 1 tablet Documented by: Cefdinir (Cefdinir 300 Mg Capsule) 300 mg PO DAILY [facility] Stop: 02/06/21 16:31 Last Admin: 02/06/21 05:55 Dose: 300 mg Documented by: Cyanocobalamin (Cyanocobalamin 500 Mcg Tablet) 1,000 mcg PO DAILY [facility] Last Admin: 02/06/21 05:53 Dose: 1,000 mcg Documented by: Fluticasone Propionate (Fluticasone 0.05% 1 Pitcher Nasal.Sry) 2 spray NASAL DAILY [facility] Last Admin: 02/06/21 05:57 Dose: 2 spray Documented by: Folic Acid (Folic Acid 1 Mg Tablet) [facility] Last Admin: 02/06/21 08:28 Dose: 1 mg Documented by: Furosemide (Furosemide 40 Mg Tablet) 40 mg PO DAILY [facility] Last Admin: 02/06/21 05:56 Dose: 40 mg Documented by: Guaifenesin (Guaifenesin 1,200 Mg Tablet) 1,200 mg PO BID [facility] Last Admin: 02/06/21 05:57 Dose: 1,200 mg Documented by: Sodium Chloride () 500 mls @ 15 mls/hr IV PRN PRN PRN Reason: Blood Transfusion Insulin Glargine (Insulin Glargine 100 Units/Ml Pen) 30 units SC QHS [facility] Last Admin: 02/05/21 22:31 Dose: 30 units Documented by: Insulin Human Lispro (Insulin Lispro 100 Unit/Ml Insuln.Pen) 13 unit SC TIDAC [facility] Last Admin: 02/06/21 11:40 Dose: 13 units Documented by: Lactobacillus Acidophilus (Lactobacillus Acidophilus) 1 tablet PO DAILY [facility] Last Admin: 02/06/21 05:56 Dose: 1 tablet Documented by: Levothyroxine Sodium (Levothyroxine 50 Mcg Tablet) 50 mcg PO DAILY [facility] Last Admin: 02/06/21 05:54 Dose: 50 mcg Documented by: Magnesium Hydroxide (Magnesium Hydroxide 30 Ml Udc) 30 ml PO DAILY PRN PRN Reason: Constipation Metoprolol Tartrate (Metoprolol Tartrate 25 Mg Tablet) 6.25 mg PO BID [facility] Last Admin: 02/06/21 05:55 Dose: 6.25 mg Documented by: Nitroglycerin (Nitroglycerin (Inpatient Use) 0.4 Mg Tab.Subl) 0.4 mg SL Q5M PRN PRN Reason: CARDIAC/CHEST PAIN Nystatin (Nystatin Powder 15gm Bottle) 1 applic TOPICAL BID [facility]; Protocol Last Admin: 02/06/21 05:59 Dose: 1 applic Documented by: Oxycodone HCl (Oxycodone 5 Mg Tablet) 5 mg PO Q4H PRN PRN PRN Reason: Pain Score 6-10 Last Admin: 02/06/21 08:26 Dose: 5 mg Documented by: Pantoprazole Sodium (Pantoprazole Sodium 40 Mg Tablet) 40 mg PO BID [facility] Last Admin: 02/06/21 05:54 Dose: 40 mg Documented by: Paroxetine HCl (Paroxetine 20 Mg Tablet) 20 mg PO DAILY [facility] Last Admin: 02/06/21 05:55 Dose: 20 mg Documented by: Polyethylene Glycol (Polyethylene Glycol 3350 17 Gm Packet) 17 gm PO DAILY [facility] Last Admin: 02/06/21 05:57 Dose: 17 gm Documented by: Polysaccharide Iron Complex (Iron Polysaccharide Complex 150 Mg Capsule) 150 mg PO DAILY [facility] Last Admin: 02/06/21 05:55 Dose: 150 mg Documented by: Pramipexole Dihydrochloride (Pramipexole Di-Hcl 1 Mg Tablet) 1 mg PO QHS [facility] Last Admin: 02/05/21 21:17 Dose: 1 mg Documented by: Prednisone (Prednisone 20 Mg Tablet) 20 mg PO DAILYCM [facility] Stop: 02/07/21 08:01 Last Admin: 02/06/21 08:29 Dose: 20 mg Documented by: Prednisone (Prednisone 10 Mg Tablet) 10 mg PO DAILYCM [facility] Stop: 02/10/21 08:01 Fluticasone/Salmeterol (Fluticasone/Salmeterol 232-14 Inhaler) 1 puff INHALATION Q12 [facility] Last Admin: 02/06/21 05:58 Dose: 1 puff Documented by: Senna/Docusate Sodium (Senna/Docusate Sodium 1 Tablet) 1 tablet PO BID [facility] Last Admin: 02/06/21 05:54 Dose: 1 tablet Documented by: Sodium Chloride (0.9% Saline Lock 10 Ml Syringe) 10 - 40 ml IV UD PRN PRN Reason: Midline Flush Last Admin: 02/02/21 17:07 Dose: 10 ml Documented by: Sucralfate (Sucralfate 1 Gm Tablet) 1 gm PO 1HR_ACHS [facility] Last Admin: 02/06/21 11:21 Dose: 1 gm Documented by: Umeclidinium [place] (Umeclidinium [place] Inhaler) 1 puff INHALATION DAILY [facility] Last Admin: 02/06/21 05:58 Dose: 1 puff Documented by: Zolpidem Tartrate (Zolpidem Tartrate 5 Mg Tablet) 5 mg PO QHS PRN PRN Reason: INSOMNIA Last Admin: 02/05/21 22:42 Dose: 5 mg Documented by: Assessment/Plan All Active Problems (Last Updated 01/29/21 @ 09:51 by Cristina Chavarria) Upper GI hemorrhage (Acute 01/16/21) Acute respiratory failure with hypoxia (Acute) Septic shock (Acute) Pneumonia (Acute) Hyperkalemia (Acute) Elevated liver enzymes (Acute) Cellulitis of right leg (Acute) Debility (Acute) Acute kidney injury (Acute)
[2021-02-06 16:21] LABS: Bedside Glucose 287 mg/dL (70-110)
[2021-02-06] MEDS: Pramipexole Di-HCl 1 MG Tablet PO (20:19)
[2021-02-06] MEDS: Atorvastatin Calcium 80 MG Tablet PO (20:19)
[2021-02-06 21:35] LABS: Bedside Glucose 185 mg/dL (70-110)
[2021-02-06] MEDS: Zolpidem Tartrate 5 MG Tablet PO (22:24)
[2021-02-06] MEDS: BENZOCAINE/MENTHOL 1 LOZENGE 2 LOZENGE MUCOUS MEM (22:25)
[2021-02-07] VITALS (8 sets, daily range): BP systolic 142–189; BP diastolic 40–72; PULSE 51–61; RESP 18–21; TEMP 36.6; O2SAT 90–98
--- NOTE | 2021-02-07 03:31 | NURSING ---
Alarm sounds in room and pt made an unassisted transfer. Slipper socks were off. O2 in place via nc. Informs this nurse she was fearful of having an incontinent episode. Instructed pt she needs to call for staff for assistance w/ mobility to prevent a fall. Passed gas and voided. Pericare completed per pt. This nurse assisted pt back to bed using wheeled walker. Positioned in bed for comfort. Bed alarm active. Call light w/ in reach.
[2021-02-07] MEDS: oxyCODONE 5 MG Tablet PO ×2 (04:45→20:13)
[2021-02-07] MEDS: Fluticasone/Salmeterol 232-14 Inhaler 1 PUFF INHALATION ×2 (04:46→17:15)
[2021-02-07] MEDS: Fluticasone 0.05% 1 SPRAY NASAL.SRY 2 SPRAY NASAL (04:46)
[2021-02-07] MEDS: Cyanocobalamin 500 MCG Tablet 1000 MCG PO (04:47)
[2021-02-07] MEDS: guaiFENesin 1,200 MG Tablet 1200 MG PO ×2 (04:47→17:25)
[2021-02-07] MEDS: Polyethylene Glycol 3350 17 GM PACKET PO (04:47)
[2021-02-07] MEDS: Sucralfate 1 GM Tablet PO ×4 (04:47→20:13)
[2021-02-07] MEDS: Amiodarone 200 MG Tablet PO (04:48)
[2021-02-07] MEDS: Senna/Docusate Sodium 1 Tablet PO ×2 (04:48→17:25)
[2021-02-07] MEDS: Pantoprazole Sodium 40 MG Tablet PO ×2 (04:48→17:25)
[2021-02-07] MEDS: Levothyroxine 50 MCG Tablet PO (04:48)
[2021-02-07] MEDS: Furosemide 40 MG Tablet PO (04:48)
[2021-02-07] MEDS: Paroxetine 20 MG Tablet PO (04:48)
[2021-02-07] MEDS: Iron Polysaccharide Complex 150 MG CAPSULE PO (04:48)
[2021-02-07] MEDS: Nystatin Powder 15gm Bottle 1 APPLIC TOPICAL ×2 (04:51→17:24)
[2021-02-07] MEDS: Menthol/Lanolin/Calamine/Znox 113 GM Tube 1 APPLIC TOPICAL ×2 (04:52→17:24)
[2021-02-07] MEDS: Metoprolol Tartrate 25 MG Tablet 6.25 MG PO ×2 (04:52→17:25)
[2021-02-07] MEDS: Umeclidinium Bromide Inhaler 1 PUFF INHALATION (05:00)
[2021-02-07 06:16] LABS: Bedside Glucose 72 mg/dL (70-110)
[2021-02-07] MEDS: Ipratropium/Albuterol Sulfate 3 ML AMPUL.NEB INHALATION ×4 (06:48→19:40)
[2021-02-07] MEDS: Insulin Lispro 100 UNIT/ML INSULN.PEN 13 UNIT SC ×3 (08:36→17:14)
[2021-02-07] MEDS: Aspirin E.C. 81 MG Tablet PO (08:37)
[2021-02-07] MEDS: Calcium Carb/Vitamin D 1 TABLET Tablet PO (08:40)
[2021-02-07] MEDS: Folic Acid 1 MG Tablet PO (08:40)
[2021-02-07] MEDS: predniSONE 20 MG Tablet PO (08:41)
[2021-02-07 10:51] LABS: Bedside Glucose 168 mg/dL (70-110)
[2021-02-07 16:46] LABS: Bedside Glucose 133 mg/dL (70-110)
[2021-02-07] MEDS: Atorvastatin Calcium 80 MG Tablet PO (20:11)
[2021-02-07] MEDS: Pramipexole Di-HCl 1 MG Tablet PO (20:11)
[2021-02-07] MEDS: BENZOCAINE/MENTHOL 1 LOZENGE 2 LOZENGE MUCOUS MEM (20:16)
[2021-02-07] MEDS: Zolpidem Tartrate 5 MG Tablet PO (21:40)
[2021-02-07 22:35] LABS: Bedside Glucose 176 mg/dL (70-110)
[2021-02-08] VITALS (8 sets, daily range): BP systolic 125–145; BP diastolic 59–68; PULSE 54–60; RESP 18–20; TEMP 36.1–36.2; O2SAT 96–98
[2021-02-08] MEDS: Ipratropium/Albuterol Sulfate 3 ML AMPUL.NEB INHALATION ×4 (00:50→18:58)
[2021-02-08] MEDS: Umeclidinium Bromide Inhaler 1 PUFF INHALATION (06:17)
[2021-02-08] MEDS: Fluticasone/Salmeterol 232-14 Inhaler 1 PUFF INHALATION ×2 (06:17→17:29)
[2021-02-08] MEDS: Polyethylene Glycol 3350 17 GM PACKET PO (06:18)
[2021-02-08] MEDS: Fluticasone 0.05% 1 SPRAY NASAL.SRY 2 SPRAY NASAL (06:18)
[2021-02-08] MEDS: Sucralfate 1 GM Tablet PO ×4 (06:19→20:09)
[2021-02-08] MEDS: Pantoprazole Sodium 40 MG Tablet PO ×2 (06:19→17:33)
[2021-02-08] MEDS: Amiodarone 200 MG Tablet PO (06:19)
[2021-02-08] MEDS: Levothyroxine 50 MCG Tablet PO (06:19)
[2021-02-08] MEDS: Iron Polysaccharide Complex 150 MG CAPSULE PO (06:19)
[2021-02-08] MEDS: guaiFENesin 1,200 MG Tablet 1200 MG PO ×2 (06:19→17:31)
[2021-02-08] MEDS: Senna/Docusate Sodium 1 Tablet PO ×2 (06:19→17:31)
[2021-02-08] MEDS: Cyanocobalamin 500 MCG Tablet 1000 MCG PO (06:19)
[2021-02-08] MEDS: Furosemide 40 MG Tablet PO (06:20)
[2021-02-08] MEDS: Paroxetine 20 MG Tablet PO (06:20)
[2021-02-08] MEDS: Metoprolol Tartrate 25 MG Tablet 6.25 MG PO ×2 (06:20→17:32)
[2021-02-08 06:21] LABS: Bedside Glucose 79 mg/dL (70-110)
[2021-02-08] MEDS: Menthol/Lanolin/Calamine/Znox 113 GM Tube 1 APPLIC TOPICAL ×2 (06:22→17:32)
[2021-02-08] MEDS: Nystatin Powder 15gm Bottle 1 APPLIC TOPICAL ×2 (06:23→17:32)
[2021-02-08] MEDS: Insulin Lispro 100 UNIT/ML INSULN.PEN 13 UNIT SC ×3 (07:46→17:30)
[2021-02-08] MEDS: Folic Acid 1 MG Tablet PO (07:47)
[2021-02-08] MEDS: Aspirin E.C. 81 MG Tablet PO (07:47)
[2021-02-08] MEDS: Calcium Carb/Vitamin D 1 TABLET Tablet PO (07:48)
[2021-02-08] MEDS: predniSONE 10 MG Tablet PO (07:48)
[2021-02-08 10:46] LABS: Bedside Glucose 186 mg/dL (70-110)
[2021-02-08 16:51] LABS: Bedside Glucose 190 mg/dL (70-110)
[2021-02-08] MEDS: Pramipexole Di-HCl 1 MG Tablet PO (20:09)
[2021-02-08] MEDS: Atorvastatin Calcium 80 MG Tablet PO (20:09)
[2021-02-08] MEDS: oxyCODONE 5 MG Tablet PO (20:09)
[2021-02-08 21:31] LABS: Bedside Glucose 270 mg/dL (70-110)
[2021-02-08] MEDS: BENZOCAINE/MENTHOL 1 LOZENGE 2 LOZENGE MUCOUS MEM (21:54)
[2021-02-08] MEDS: Zolpidem Tartrate 5 MG Tablet PO (21:54)
[2021-02-09] VITALS (10 sets, daily range): BP systolic 134–173; BP diastolic 53–73; PULSE 54–74; RESP 18–20; TEMP 35.9–36.3; O2SAT 92–97
[2021-02-09] MEDS: Ipratropium/Albuterol Sulfate 3 ML AMPUL.NEB INHALATION ×5 (00:20→18:23)
[2021-02-09] MEDS: Fluticasone/Salmeterol 232-14 Inhaler 1 PUFF INHALATION ×2 (05:28→17:00)
[2021-02-09] MEDS: Umeclidinium Bromide Inhaler 1 PUFF INHALATION (05:28)
[2021-02-09] MEDS: Fluticasone 0.05% 1 SPRAY NASAL.SRY 2 SPRAY NASAL (05:28)
[2021-02-09] MEDS: Paroxetine 20 MG Tablet PO (05:29)
[2021-02-09] MEDS: Metoprolol Tartrate 25 MG Tablet 6.25 MG PO ×2 (05:29→17:05)
[2021-02-09] MEDS: Polyethylene Glycol 3350 17 GM PACKET PO (05:29)
[2021-02-09] MEDS: Levothyroxine 50 MCG Tablet PO (05:29)
[2021-02-09] MEDS: Sucralfate 1 GM Tablet PO ×4 (05:29→19:44)
[2021-02-09] MEDS: Amiodarone 200 MG Tablet PO (05:29)
[2021-02-09] MEDS: guaiFENesin 1,200 MG Tablet 1200 MG PO ×2 (05:29→17:05)
[2021-02-09] MEDS: Iron Polysaccharide Complex 150 MG CAPSULE PO (05:29)
[2021-02-09] MEDS: Senna/Docusate Sodium 1 Tablet PO ×2 (05:29→17:04)
[2021-02-09] MEDS: Furosemide 40 MG Tablet PO (05:30)
[2021-02-09] MEDS: Cyanocobalamin 500 MCG Tablet 1000 MCG PO (05:30)
[2021-02-09] MEDS: Nystatin Powder 15gm Bottle 1 APPLIC TOPICAL ×2 (05:30→17:07)
[2021-02-09] MEDS: Menthol/Lanolin/Calamine/Znox 113 GM Tube 1 APPLIC TOPICAL ×2 (05:30→17:00)
[2021-02-09] MEDS: oxyCODONE 5 MG Tablet PO ×3 (05:31→21:46)
[2021-02-09] MEDS: Pantoprazole Sodium 40 MG Tablet PO ×2 (05:38→17:05)
[2021-02-09 05:43] LABS: Hematocrit 34.3 % (37-47); Hemoglobin 9.3 g/dL (12.0-15.0)
[2021-02-09 06:36] LABS: Bedside Glucose 132 mg/dL (70-110)
[2021-02-09] MEDS: Folic Acid 1 MG Tablet PO (07:48)
[2021-02-09] MEDS: Insulin Lispro 100 UNIT/ML INSULN.PEN 13 UNIT SC ×3 (07:48→17:02)
[2021-02-09] MEDS: Calcium Carb/Vitamin D 1 TABLET Tablet PO (07:48)
[2021-02-09] MEDS: Aspirin E.C. 81 MG Tablet PO (07:48)
[2021-02-09] MEDS: predniSONE 10 MG Tablet PO (07:48)
--- NOTE | 2021-02-09 08:08 | CASEMGMT ---
Social Work Dtr contacted to discuss DC plans. Return phone call but dtr requesting to call back later. Will continue to follow. TRUNG UreñaW
[2021-02-09 11:16] LABS: Bedside Glucose 207 mg/dL (70-110)
--- NOTE | 2021-02-09 11:33 | CASEMGMT ---
Addendum entered by Vera Waller 02/09/21 14:32: Referred to [facility] They will review referral and provide SW with DME and Palliative companies in the area. Will continue to follow. Original Note: Social Work Held conference call between dtr and pt. Discussed DC plans. Pt is medically and physically stable and both ready for DC to dtr's house in [facility]. Discussed needs. Dtr has new PCP: Shilpa Mendez in [facility]. Dtr requested to use [facility] for PT/OT/SN. Pt has O2 and nebulizer currently through [facility]. SW to contact [facility] to get records transferred to DME company in dtr's area. Dtr working on contacting specialists in the area for pt to get established. Dtr states she has turn in pt's apartment keys to landlord 02/13 and requires to use friends truck to pack up final belongings. Dtr requesting DC 02/13 or 02/14. Explained insurance update this date and if DC issued, earliest is 02/11, but SW to request DC 02/13 or 02/14. SW to contact above agencies to coordinate DC for pt. Will continue to follow. TRUNG Ureña COLOR ARTIST
[2021-02-09 16:21] LABS: Bedside Glucose 274 mg/dL (70-110)
[2021-02-09] MEDS: Atorvastatin Calcium 80 MG Tablet PO (19:44)
[2021-02-09] MEDS: Pramipexole Di-HCl 1 MG Tablet PO (19:45)
[2021-02-09 21:21] LABS: Bedside Glucose 380 mg/dL (70-110)
[2021-02-09] MEDS: Zolpidem Tartrate 5 MG Tablet PO (21:45)
[2021-02-10] VITALS (10 sets, daily range): BP systolic 147–183; BP diastolic 55–73; PULSE 53–78; RESP 18–19; TEMP 36.1–36.6; O2SAT 92–98
[2021-02-10] MEDS: Metoprolol Tartrate 25 MG Tablet 6.25 MG PO ×2 (06:00→17:43)
[2021-02-10] MEDS: Senna/Docusate Sodium 1 Tablet PO ×2 (06:00→17:44)
[2021-02-10] MEDS: Polyethylene Glycol 3350 17 GM PACKET PO (06:00)
[2021-02-10] MEDS: Amiodarone 200 MG Tablet PO (06:00)
[2021-02-10] MEDS: Insulin Lispro 100 UNIT/ML INSULN.PEN 13 UNIT SC ×3 (06:00→17:47)
[2021-02-10] MEDS: Iron Polysaccharide Complex 150 MG CAPSULE PO (06:00)
[2021-02-10] MEDS: Levothyroxine 50 MCG Tablet PO (06:00)
[2021-02-10] MEDS: Furosemide 40 MG Tablet PO (06:00)
[2021-02-10] MEDS: Fluticasone/Salmeterol 232-14 Inhaler 1 PUFF INHALATION ×2 (06:00→17:42)
[2021-02-10] MEDS: Fluticasone 0.05% 1 SPRAY NASAL.SRY 2 SPRAY NASAL (06:00)
[2021-02-10] MEDS: Nystatin Powder 15gm Bottle 1 APPLIC TOPICAL ×2 (06:00→16:25)
[2021-02-10] MEDS: guaiFENesin 1,200 MG Tablet 1200 MG PO ×2 (06:00→17:43)
[2021-02-10] MEDS: Pantoprazole Sodium 40 MG Tablet PO ×2 (06:00→17:43)
[2021-02-10] MEDS: Umeclidinium Bromide Inhaler 1 PUFF INHALATION (06:00)
[2021-02-10] MEDS: Paroxetine 20 MG Tablet PO (06:00)
[2021-02-10] MEDS: Cyanocobalamin 500 MCG Tablet 1000 MCG PO (06:00)
[2021-02-10] MEDS: Menthol/Lanolin/Calamine/Znox 113 GM Tube 1 APPLIC TOPICAL ×2 (06:00→16:24)
[2021-02-10 06:41] LABS: Bedside Glucose 81 mg/dL (70-110)
[2021-02-10] MEDS: Sucralfate 1 GM Tablet PO ×4 (07:00→22:23)
[2021-02-10] MEDS: Ipratropium/Albuterol Sulfate 3 ML AMPUL.NEB INHALATION ×4 (07:20→19:30)
[2021-02-10] MEDS: Folic Acid 1 MG Tablet PO (08:00)
[2021-02-10] MEDS: predniSONE 10 MG Tablet PO (08:00)
[2021-02-10] MEDS: Calcium Carb/Vitamin D 1 TABLET Tablet PO (08:00)
[2021-02-10] MEDS: Aspirin E.C. 81 MG Tablet PO (08:00)
[2021-02-10 10:50] LABS: Bedside Glucose 84 mg/dL (70-110)
[2021-02-10] MEDS: oxyCODONE 5 MG Tablet PO ×2 (11:04→20:20)
--- NOTE | 2021-02-10 13:47 | NURSING ---
PT SPILLED HOT COFFEE ON HER STOMACH THIS MORNING. QUICKLY WAS WIPED OFF AND COOL WASH RAG APPLIED. NO REDNESS OR ATKINSON AT THIS TIME. WILL CONTINUE TO MONITOR. RN AWARE.
--- NOTE | 2021-02-10 15:04 | CASEMGMT ---
Addendum entered by Vera Waller 02/10/21 16:42: Referred to [place] [facility]. Nurse to contact this worker for further information. Original Note: Social Work Insurance issued LCD 02/13, DC 02/14. Spoke with pt and dtr whom are agreeable. Notified [facility] - they can accept pt and are working on a Palliative and DME company for [place] at [place]. Will continue to follow. Plan: [place] home with dtr 02/14, [facility] PT/OT/SN, Palliative services Vera Waller, TRUNG SRW
--- NOTE | 2021-02-10 16:40 | RAD_ITS ---
STUDY: X-RAY - RIGHT FOOT CLINICAL: Female, 75 years old. Great toe fracture TECHNIQUE: 3 view(s) of the foot. COMPARISON: 12/25/2020. FINDINGS: There is a plantar calcaneal spur. Otherwise normal talus, calcaneus, and tarsal bones. Normal visualized subtalar, talonavicular, and calcaneocuboid articulations. Degenerative arthrosis of multiple tarsal and tarsometatarsal articulations. Normal metatarsi. Normal metatarsophalangeal joint of the great toe. Normal tibial and fibular sesamoid bones. There is a fracture of the proximal metaphysis of the distal phalanx of the first toe with intra-articular involvement at the lateral portion of the interphalangeal joint. The previous fracture has healed in stable alignment. There are severe degenerative arthrosis of the second metatarsophalangeal joint. There is degenerative arthrosis of multiple interphalangeal joints of the second through fifth toes. There are arteriovascular calcifications. RAD/Foot min 3 Views IMPRESSION: Recent fracture of the distal phalanx of the first toe has healed in stable alignment. Degenerative changes, as above. Electronically Signed: Loco Hillman MD at 0:07 EDT , Service support ,
[2021-02-10 16:51] LABS: Bedside Glucose 85 mg/dL (70-110)
--- NOTE | 2021-02-10 20:33 | DS.PCM_ITS ---
Providers Date of Admission: 12/31/20 Primary Care Physician: YOLIS Merrill Consultations 01/01/21 16:58 Physician Consult Routine Consulting Provider: Miranda Coffman Consulted Physician Type:: Hospice/Pallative care Reason for Consult: COPD CHF Notified: Yes Date Notified:: 01/02/21 Time Notified: 10:00 Method of Notification:: Verbal 01/15/21 08:05 Physician Consult Routine Consulting Provider: Charles Ellis Consulted Physician Type:: [facility] Reason for Consult: EGD/Colonoscopy for anemia. Notified: Yes Date Notified:: 01/15/21 Time Notified: 08:37 Method of Notification:: Verbal Reason For Visit: ACUTE HYPOXIA RESP FAILURE, SEPTIC BECK Diagnosis Discharge Diagnosis (1) Anemia: Status: Chronic Code(s): D64.9 - Anemia, unspecified Qualifiers: Anemia type: unspecified type Qualified Code(s): D64.9 - Anemia, unspecified Medications at Discharge Home Medications L.acidoph, paracasei,B. lactis 1 each PO DAILY 09/26/19 albuterol sulfate 2 puff INHALATION Q6H PRN PRN 09/26/19 albuterol sulfate 2.5 mg INHALATION Q4H PRN PRN 09/26/19 cyanocobalamin (vitamin B-12) 1,000 mcg PO DAILY 09/26/19 fluticasone propion-salmeterol 2 puff INHALATION BID 09/26/19 fluticasone propionate 2 spray NASAL DAILY 09/26/19 nystatin 30 gm TP BID 09/26/19 paroxetine HCl 40 mg PO DAILY 09/26/19 ropinirole 2 mg PO BID 09/26/19 tiotropium bromide 18 mcg IH DAILY 09/26/19 calcium carbonate 500 mg (1,250 mg)-vitamin D3 200 unit tablet 1 tablet PO DAILY tablet 01/11/20 omeprazole 20 mg capsule,delayed release 40 mg PO DAILY cap 09/03/20 nitroglycerin 0.4 mg sublingual tablet 0.4 mg SL PRN PRN #25 tablet 10/30/20 amiodarone 200 mg PO DAILY 12/12/20 aspirin 81 mg PO DAILY@0800 12/12/20 atorvastatin 80 mg PO QHS 12/12/20 cefdinir 300 mg PO Q12H 12/12/20 denosumab 60 mg SC [id number] 12/12/20 insulin glargine 15 units SC BREAKFAST 12/12/20 insulin lispro 8 unit SC TIDCM 12/12/20 insulin lispro See Protocol SC TIDCM 12/12/20 levothyroxine 25 mcg PO DAILY 12/12/20 metoprolol tartrate 25 mg PO BID 12/12/20 polysaccharide iron complex 150 mg PO DAILY #0 12/12/20 suvorexant 20 mg PO QHS #0 12/12/20 folic acid 1 mg PO DAILY 12/28/20 pramipexole 1 mg PO DAILY 12/28/20 umeclidinium 1 puff IH DAILY 12/28/20 furosemide 40 mg PO DAILY #0 12/31/20 prednisone 40 mg PO DAILY 12/31/20 sulfamethoxazole-trimethoprim 1 tablet PO DAILY 12/31/20 Hospital Course Operations None Procedures EGD Summary of Care Provided Minutes Spent on Discharge: 35 Hospital Course: 75 year old female with below past medical history hospitalized for acute respiratory failure with hypoxia, requiring intubation secondary to pneumonia, COPD, complicated by septic shock, admitted to TCU with debility, here for rehabilitation, strengthening, prior to discharge home alone. Resident underwent EGD x 2 for upper gastrointestinal bleeding, Clipping perf ormed. Discharge home with daughter, [facility] Care PT/OT/SN, Palliative Services. ABG / Lab / Microbiology Data Result Diagrams: 02/09/21 05:05 02/05/21 05:38 Laboratory: Laboratory Results - last 24 hr 02/09/21 02/10/21 02/10/21 21:00 06:09 10:26 POC Glucose 380 H 81 84 02/10/21 16:22 POC Glucose 85 Microbiology: Microbiology 01/27/21 10:20 Sputum, Expectorated/Coughed Gram Stain - Final 01/27/21 10:20 Sputum, Expectorated/Coughed Respiratory Culture - Final Serratia marcescens 01/15/21 13:15 Interface Orders SARS-CoV-2 Antigen (Rapid) - Final 01/08/21 Unknown Sputum, Expectorated/Coughed Gram Stain - Final 01/08/21 Unknown Sputum, Expectorated/Coughed Respiratory Culture - Final Presumptive C albicans D/C Instructions Discharge Diet: No restrictions Discharge Activity: Return to Normal Activity, May Shower and Use Walker Weight Bearing Status: Weight bearing as tolerated Call your doctor if you observe: Fever of 101 or Higher, Shortness of breath, Dizziness, Chest pain and Uncontrolled pain Please follow up with your Primary Care Physician in: 1 week. Please Follow Up With: Tom June MD When: 2 weeks. Meaningful Use Info Meaningful Use Diagnoses (Choose all that apply): None applicable Discharge Plan Admission Admit Date/Time: 12/31/20 16:30 Primary Reason for Your Visit: Debility Attending Provider: Isaias Connor Chi Primary Care Provider: Yesenia Leon NP Consulting Providers: Miranda Coffman ; Charles Ellis Instructions Additional Instructions / Restrictions: Discharge home with daughter, [facility] Care PT/OT/SN, Palliative S sneha. Discharge Orders/Prescriptions Prescriptions: No Action calcium carbonate-vitamin D3 500 mg(1,250mg) -200 unit tablet 1 tablet PO DAILY RF: 0 albuterol sulfate 2.5 MG/3 ML solution for nebulization 2.5 mg INHALATION Q4H PRN PRN (Reason: Sob &/Or Wheezing) RF: 0 cyanocobalamin (vitamin B-12) 1,000 MCG tablet 1,000 mcg PO DAILY RF: 0 ropinirole 2 MG tablet 2 mg PO BID RF: 0 nystatin 30 GM powder 30 gm TP BID RF: 0 albuterol sulfate 1 PUFF inhaler 2 puff INHALATION Q6H PRN PRN (Reason: Sob &/Or Wheezing) RF: 0 paroxetine HCl 40 MG tablet 40 mg PO DAILY RF: 0 fluticasone propionate 1 SPRAY spray,suspension 2 spray NASAL DAILY RF: 0 tiotropium bromide 18 MCG capsule, w/inhalation device 18 mcg IH DAILY RF: 0 fluticasone propion-salmeterol 1 PUFF inhaler 2 puff INHALATION BID RF: 0 L.acidoph, paracasei,B. lactis 1 EACH capsule 1 each PO DAILY RF: 0 omeprazole 20 mg capsule,delayed release(DR/EC) 40 mg PO DAILY RF: 0 polysaccharide iron complex 150 MG capsule 150 mg PO DAILY Qty: 0 RF: 0 suvorexant 10 MG tablet 20 mg PO QHS Qty: 0 RF: 0 atorvastatin 80 MG tablet 80 mg PO QHS RF: 0 amiodarone 200 MG tablet 200 mg PO DAILY RF: 0 aspirin 81 MG tablet 81 mg PO DAILY@0800 RF: 0 levothyroxine 25 MCG tablet 25 mcg PO DAILY RF: 0 cefdinir 300 MG capsule 300 mg PO Q12H RF: 0 insulin lispro 100 UNIT/ML insulin pen 8 unit SC TIDCM RF: 0 insulin lispro 100 UNIT/ML insulin pen See Protocol unit SC TIDCM RF: 0 metoprolol tartrate 25 MG tablet 25 mg PO BID RF: 0 insulin glargine 100 UNITS/ML insulin pen 15 units SC BREAKFAST RF: 0 denosumab 60 MG/ML syringe 60 mg SC [id number] RF: 0 pramipexole 1 MG tablet 1 mg PO DAILY RF: 0 folic acid 1 MG tablet 1 mg PO DAILY RF: 0 umeclidinium 1 PUFF inhaler 1 puff IH DAILY RF: 0 furosemide 40 MG tablet 40 mg PO DAILY Qty: 0 RF: 0 prednisone 20 MG tablet 40 mg PO DAILY RF: 0 sulfamethoxazole-trimethoprim 1 TABLET tablet 1 tablet PO DAILY RF: 0 nitroglycerin 0.4 mg tablet, sublingual 0.4 mg SL PRN PRN (Reason: pain) Qty: 25 RF: 3 Referrals: Yesenia Leon NP, [employer] [Primary Care Provider] - Disposition Patient Disposition: Home Health Service
[2021-02-10 21:35] LABS: Bedside Glucose 91 mg/dL (70-110)
[2021-02-10] MEDS: Atorvastatin Calcium 80 MG Tablet PO (22:23)
[2021-02-10] MEDS: Pramipexole Di-HCl 1 MG Tablet PO (22:24)
[2021-02-10] MEDS: Zolpidem Tartrate 5 MG Tablet PO (22:26)
[2021-02-10] MEDS: BENZOCAINE/MENTHOL 1 LOZENGE 2 LOZENGE MUCOUS MEM (22:26)
[2021-02-11] VITALS (10 sets, daily range): BP systolic 127–183; BP diastolic 49–61; PULSE 48–62; RESP 16–20; TEMP 36.4–36.8; O2SAT 90–99
[2021-02-11] MEDS: Ipratropium/Albuterol Sulfate 3 ML AMPUL.NEB INHALATION ×5 (02:43→18:45)
[2021-02-11] MEDS: oxyCODONE 5 MG Tablet PO ×2 (02:56→21:49)
[2021-02-11] MEDS: Polyethylene Glycol 3350 17 GM PACKET PO (05:44)
[2021-02-11] MEDS: Cyanocobalamin 500 MCG Tablet 1000 MCG PO (05:48)
[2021-02-11] MEDS: guaiFENesin 1,200 MG Tablet 1200 MG PO ×2 (05:48→17:34)
[2021-02-11] MEDS: Senna/Docusate Sodium 1 Tablet PO ×2 (05:49→17:35)
[2021-02-11] MEDS: Iron Polysaccharide Complex 150 MG CAPSULE PO (05:49)
[2021-02-11] MEDS: Amiodarone 200 MG Tablet PO (05:49)
[2021-02-11] MEDS: Paroxetine 20 MG Tablet PO (05:49)
[2021-02-11] MEDS: Furosemide 40 MG Tablet PO (05:49)
[2021-02-11] MEDS: Levothyroxine 50 MCG Tablet PO (05:49)
[2021-02-11] MEDS: Pantoprazole Sodium 40 MG Tablet PO ×2 (05:52→17:35)
[2021-02-11] MEDS: Menthol/Lanolin/Calamine/Znox 113 GM Tube 1 APPLIC TOPICAL ×2 (05:53→17:34)
[2021-02-11] MEDS: Fluticasone/Salmeterol 232-14 Inhaler 1 PUFF INHALATION ×2 (05:54→17:34)
[2021-02-11] MEDS: Umeclidinium Bromide Inhaler 1 PUFF INHALATION (05:54)
[2021-02-11] MEDS: Fluticasone 0.05% 1 SPRAY NASAL.SRY 2 SPRAY NASAL (05:56)
[2021-02-11] MEDS: Metoprolol Tartrate 25 MG Tablet 6.25 MG PO ×2 (05:58→17:35)
[2021-02-11] MEDS: Nystatin Powder 15gm Bottle 1 APPLIC TOPICAL ×2 (05:59→17:34)
[2021-02-11 06:15] LABS: Bedside Glucose 124 mg/dL (70-110)
[2021-02-11] MEDS: Sucralfate 1 GM Tablet PO ×4 (06:48→21:48)
[2021-02-11] MEDS: Insulin Lispro 100 UNIT/ML INSULN.PEN 13 UNIT SC ×3 (08:24→17:38)
[2021-02-11] MEDS: Aspirin E.C. 81 MG Tablet PO (08:24)
[2021-02-11] MEDS: Calcium Carb/Vitamin D 1 TABLET Tablet PO (08:25)
[2021-02-11] MEDS: Folic Acid 1 MG Tablet PO (08:25)
[2021-02-11 10:46] LABS: Bedside Glucose 180 mg/dL (70-110)
[2021-02-11 16:31] LABS: Bedside Glucose 164 mg/dL (70-110)
[2021-02-11 21:41] LABS: Bedside Glucose 179 mg/dL (70-110)
[2021-02-11] MEDS: Pramipexole Di-HCl 1 MG Tablet PO (21:49)
[2021-02-11] MEDS: Atorvastatin Calcium 80 MG Tablet PO (21:49)
[2021-02-12] VITALS (7 sets, daily range): BP systolic 139–175; BP diastolic 55–71; PULSE 49–60; RESP 12–18; TEMP 36.3–36.4; O2SAT 91–97
[2021-02-12 05:33] LABS: Absolute Neutrophil Count 9.3 X10^3/uL (2.0-7.7); Basophil# 0.06 X10^3/uL; Basophil% 0.5 % (0-1); Eosinophil# 0.32 X10^3/uL; Eosinophils% 2.6 % (0-5); Hematocrit 33.1 % (37-47); Lymphocyte % 10.6 % (19-41); Mean Corp Hgb Conc 27.2 g/dL (32-36); Mean Corpuscular Hgb 23.4 pg (27.0-32.0); Mean Platelet Vol. 11.1 fl (6.2-12.0); Monocyte# 1.18 X10^3/uL; Monocyte% 9.6 % (0-10); NRBC Flagged by Analyzer 0 % (0-5); Neutrophil # 9.31 X10^3/uL (2.7-7.7); Platelet Count 215 K/mm3 (150-450); RBC Distribution Width SD 62.7 fl (35.1-43.9); Red Blood Count 3.85 M/mm3 (4.2-5.4); White Blood Count 12.3 K/mm3 (4.4-11.0)
[2021-02-12] MEDS: Umeclidinium Bromide Inhaler 1 PUFF INHALATION (05:41)
[2021-02-12] MEDS: Fluticasone 0.05% 1 SPRAY NASAL.SRY 2 SPRAY NASAL (05:41)
[2021-02-12] MEDS: Fluticasone/Salmeterol 232-14 Inhaler 1 PUFF INHALATION ×2 (05:42→17:19)
[2021-02-12] MEDS: Levothyroxine 50 MCG Tablet PO (05:43)
[2021-02-12] MEDS: Polyethylene Glycol 3350 17 GM PACKET PO (05:43)
[2021-02-12] MEDS: Paroxetine 20 MG Tablet PO (05:43)
[2021-02-12] MEDS: Sucralfate 1 GM Tablet PO ×4 (05:43→22:33)
[2021-02-12] MEDS: Cyanocobalamin 500 MCG Tablet 1000 MCG PO (05:43)
[2021-02-12] MEDS: Iron Polysaccharide Complex 150 MG CAPSULE PO (05:43)
[2021-02-12] MEDS: Furosemide 40 MG Tablet PO (05:44)
[2021-02-12] MEDS: Metoprolol Tartrate 25 MG Tablet 6.25 MG PO ×2 (05:44→17:20)
[2021-02-12] MEDS: Amiodarone 200 MG Tablet PO (05:44)
[2021-02-12] MEDS: Senna/Docusate Sodium 1 Tablet PO ×2 (05:44→17:22)
[2021-02-12] MEDS: guaiFENesin 1,200 MG Tablet 1200 MG PO ×2 (05:44→17:21)
[2021-02-12] MEDS: Pantoprazole Sodium 40 MG Tablet PO ×2 (05:44→17:21)
[2021-02-12] MEDS: Menthol/Lanolin/Calamine/Znox 113 GM Tube 1 APPLIC TOPICAL ×2 (05:45→17:18)
[2021-02-12] MEDS: Nystatin Powder 15gm Bottle 1 APPLIC TOPICAL ×2 (05:46→17:21)
[2021-02-12 05:47] LABS: Anion Gap 2 (5-15); BUN 41 mg/dL (7-18); BUN/Creat Ratio 29.7 RATIO (10-20); Calcium,Total 8.2 mg/dL (8.5-10.1); Chloride 102 mmol/L (98-107); Creatinine, Serum 1.38 mg/dL (0.55-1.02); EST Glomerular Filtration Rate 40 mL/min (>60); Est Glom Filt Rate - Afr Amer 48 mL/min (>60); Estimated Creatinine Clearance 25.69 ml/min; Glucose 108 mg/dL (74-106); Potassium 4.2 mmol/L (3.5-5.1); Sodium Level 140 mmol/L (136-145)
[2021-02-12 06:25] LABS: Bedside Glucose 138 mg/dL (70-110)
[2021-02-12] MEDS: Ipratropium/Albuterol Sulfate 3 ML AMPUL.NEB INHALATION ×2 (07:12→15:11)
[2021-02-12] MEDS: Insulin Lispro 100 UNIT/ML INSULN.PEN 13 UNIT SC ×3 (08:03→17:23)
[2021-02-12] MEDS: Folic Acid 1 MG Tablet PO (08:04)
[2021-02-12] MEDS: Aspirin E.C. 81 MG Tablet PO (08:04)
[2021-02-12] MEDS: Calcium Carb/Vitamin D 1 TABLET Tablet PO (08:04)
[2021-02-12] MEDS: oxyCODONE 5 MG Tablet PO ×2 (09:29→20:16)
[2021-02-12 11:16] LABS: Bedside Glucose 260 mg/dL (70-110)
--- NOTE | 2021-02-12 13:06 | MDS.RN ---
Completed pain interview for ARIELA 02/14/21.
--- NOTE | 2021-02-12 15:12 | PHA.CONS_ITS ---
Progress Note - Pharmacy Subjective: [] Monthly Medication Review Objective: Allergies ciprofloxacin [From Cipro] Allergy (Verified 01/19/21 13:36) Rash ciprofloxacin HCl [From Cipro] Allergy (Verified 01/19/21 13:36) Rash gabapentin [From Neurontin] Allergy (Verified 01/19/21 13:36) Rash heparin Allergy (Verified 01/19/21 13:36) Low platelets tuberculin, purified protein deriva Adverse Reaction (Verified 01/19/21 13:36) Other Current Medications Generic Name Dose Route Start Last Admin Trade Name Freq PRN Reason Stop Dose Admin Acetaminophen 1,000 mg 12/31/20 20:49 02/01/21 07:59 Acetaminophen 500 Mg Tablet PO 1,000 mg Q6H PRN Administration Pain Score 1-3 Albuterol Sulfate 2.5 mg 01/27/21 10:35 Albuterol 2.5 Mg/3 Ml Vial.Neb. INHALATION Q2H PRN PRN SOB &/OR WHEEZING Albuterol/Ipratropium 3 ml 01/27/21 10:45 02/12/21 07:12 Ipratropium/Albuterol Sulfate 3 Ml Ampul.Neb INHALATION 3 ml Q4HWA.RT DIAMOND Administration Amiodarone HCl 200 mg 01/01/21 06:00 02/12/21 05:44 Amiodarone 200 Mg Tablet PO 200 mg DAILY DIAMOND Administration Aspirin 81 mg 01/01/21 08:00 02/12/21 08:04 Aspirin E.C. 81 Mg Tablet PO 81 mg DAILY@0800 DIAMOND Administration Atorvastatin Calcium 80 mg 12/31/20 22:00 02/11/21 21:49 Atorvastatin Calcium 80 Mg Tablet PO 80 mg QHS DIAMOND Administration Bisacodyl 10 mg 12/31/20 20:50 01/28/21 21:03 Bisacodyl 5 Mg Tablet PO 10 mg DAILY PRN Administration Constipation Calamine/Phenol 1 applic 01/09/21 06:00 02/12/21 05:45 Menthol/Lanolin/Calamine/Znox 113 Gm Tube TOPICAL 1 applic BID DIAMOND Administration Protocol Calcium/Vitamin D 1 tablet 01/01/21 08:00 02/12/21 08:04 Calcium Carb/Vitamin D 1 Tablet Tablet PO 1 tablet DAILYCM DIAMOND Administration Cyanocobalamin 1,000 mcg 01/01/21 06:00 02/12/21 05:43 Cyanocobalamin 500 Mcg Tablet PO 1,000 mcg DAILY DIAMOND Administration Fluticasone Propionate 2 spray 01/01/21 06:00 02/12/21 05:41 Fluticasone 0.05% 1 [place] Nasal.Sry NASAL 2 spray DAILY DIAMOND Administration Folic Acid 1 mg 01/01/21 08:00 02/12/21 08:04 Folic Acid 1 Mg Tablet PO 1 mg DAILYCM DIAMOND Administration Furosemide 40 mg 01/01/21 06:00 02/12/21 05:44 Furosemide 40 Mg Tablet PO 40 mg DAILY DIAMOND Administration Guaifenesin 1,200 mg 01/27/21 18:00 02/12/21 05:44 Guaifenesin 1,200 Mg Tablet PO 1,200 mg BID DIAMOND Administration Sodium Chloride 500 mls @ 15 mls/hr 01/15/21 14:06 IV PRN PRN Blood Transfusion Insulin Glargine 30 units 02/05/21 22:00 02/11/21 22:06 Insulin Glargine 100 Units/Ml Pen SC 30 units QHS DIAMOND Administration Insulin Human Lispro 13 unit 02/02/21 06:45 02/12/21 11:34 Insulin Lispro 100 Unit/Ml Insuln.Pen SC 13 units TIDAC DIAMOND Administration Lactobacillus Acidophilus 1 tablet 01/01/21 06:00 02/12/21 05:44 Lactobacillus Acidophilus PO 1 tablet DAILY DIAMOND Administration Levothyroxine Sodium 50 mcg 01/20/21 06:00 02/12/21 05:43 Levothyroxine 50 Mcg Tablet PO 50 mcg DAILY DIAMOND Administration Magnesium Hydroxide 30 ml 12/31/20 20:49 Magnesium Hydroxide 30 Ml Udc PO DAILY PRN Constipation Metoprolol Tartrate 6.25 mg 01/16/21 18:00 02/12/21 05:44 Metoprolol Tartrate 25 Mg Tablet PO 6.25 mg BID DIAMOND Administration Nitroglycerin 0.4 mg 12/31/20 17:25 Nitroglycerin (Inpatient Use) 0.4 Mg Tab.Subl SL Q5M PRN CARDIAC/CHEST PAIN Nystatin 1 applic 12/31/20 18:00 02/12/21 05:46 Nystatin Powder 15gm Bottle TOPICAL 1 applic BID DIAMOND Administration Protocol Oxycodone HCl 5 mg 01/02/21 16:18 02/12/21 09:29 Oxycodone 5 Mg Tablet PO 5 mg Q4H PRN PRN Administration Pain Score 6-10 Pantoprazole Sodium 40 mg 01/16/21 18:00 02/12/21 05:44 Pantoprazole Sodium 40 Mg Tablet PO 40 mg BID DIAMOND Administration Paroxetine HCl 20 mg 01/30/21 06:00 02/12/21 05:43 Paroxetine 20 Mg Tablet PO 20 mg DAILY DIAMOND Administration Polyethylene Glycol 17 gm 01/01/21 06:00 02/12/21 05:43 Polyethylene Glycol 3350 17 Gm Packet PO 17 gm DAILY DIAMOND Administration Polysaccharide Iron Complex 150 mg 01/01/21 06:00 02/12/21 05:43 Iron Polysaccharide Complex 150 Mg Capsule PO 150 mg DAILY DIAMOND Administration Pramipexole Dihydrochloride 1 mg 01/29/21 22:00 02/11/21 21:49 Pramipexole Di-Hcl 1 Mg Tablet PO 1 mg QHS DIAMOND Administration Fluticasone/Salmeterol 1 puff 12/31/20 18:00 02/12/21 05:42 Fluticasone/Salmeterol 232-14 Inhaler INHALATION 1 puff Q12 DIAMOND Administration Senna/Docusate Sodium 1 tablet 01/01/21 06:00 02/12/21 05:44 Senna/Docusate Sodium 1 Tablet PO 1 tablet BID DIAMOND Administration Sodium Chloride 10 - 40 ml 12/31/20 17:47 02/02/21 17:07 0.9% Saline Lock 10 Ml Syringe IV 10 ml UD PRN Administration Midline Flush Sucralfate 1 gm 01/24/21 11:00 02/12/21 11:33 Sucralfate 1 Gm Tablet PO 1 gm 1HR_ACHS DIAMOND Administration Throat Lozenges 2 lozenge 02/06/21 14:24 02/10/21 22:26 Benzocaine/Menthol 1 Lozenge MUCOUS MEM 2 lozenge Q2H PRN PRN Administration COUGH Umeclidinium [place] 1 puff 01/01/21 06:00 02/12/21 05:41 Umeclidinium [place] Inhaler INHALATION 1 puff DAILY DIAMOND Administration Zolpidem Tartrate 5 mg 12/31/20 22:00 02/10/21 22:26 Zolpidem Tartrate 5 Mg Tablet PO 5 mg QHS PRN Administration INSOMNIA Problem List (Last Updated 01/29/21 @ 09:51 by Cristina Chavarria) Acute respiratory failure with hypoxia (Acute) Septic shock (Acute) Pneumonia (Acute) Hyperkalemia (Acute) Elevated liver enzymes (Acute) Fracture of right great toe (Chronic) Debility (Acute) Acute kidney injury (Acute) Depression (Chronic) Peripheral arterial occlusive disease (Chronic) Diabetic polyneuropathy (Chronic) Atrial fibrillation (Chronic) Hypertension (Chronic) Osteoporosis (Chronic) Gastroesophageal reflux disease (Chronic) Diabetes (Chronic) COPD (chronic obstructive pulmonary disease) (Chronic) Anemia (Chronic) Chronic diastolic heart failure (Chronic) Hyperlipidemia (Chronic) Vital Signs Temp Pulse Resp BP Pulse Ox 97.4 F L 50 L 18 175/55 H 93 02/12/21 05:00 02/12/21 10:30 02/12/21 10:30 02/12/21 05:44 02/12/21 10:30 Oxygen Flow Rate (L/min) 6 Oxygen Delivery Method Nasal Cannula Weight: 83.546 kg Body Mass Index (BMI) 39.3 Finger Stick Blood Glucose 112 Sodium 140 mmol/L (136-145) 02/12/21 05:10 Potassium 4.2 mmol/L (3.5-5.1) 02/12/21 05:10 Chloride 102 mmol/L (98-107) 02/12/21 05:10 Carbon Dioxide 36.0 mmol/L (21.0-32.0) H 02/12/21 05:10 Anion Gap 2 (5-15) L 02/12/21 05:10 BUN 41 mg/dL (7-18) H 02/12/21 05:10 Creatinine 1.38 mg/dL (0.55-1.02) H 02/12/21 05:10 Est GFR (MDRD) Af Amer 48 mL/min (>60) L 02/12/21 05:10 Est GFR (MDRD) Non-Af 40 mL/min (>60) L 02/12/21 05:10 BUN/Creatinine Ratio 29.7 RATIO (10-20) H 02/12/21 05:10 Glucose 108 mg/dL (74-106) H 02/12/21 05:10 Assessment/Plan: 1. Pain:Tylenol 1000mg PO Q6h PRN Pain 1-5. Oxycodone 5mg po Q4H prn pain 6-10. Please continue to monitor for increased/decreased S/S pain, PRN medication usage. 2. Afib/CHF/CAD: Amiodarone 200mg PO Daily, Aspirin 81mg PO Daily, Lipitor 80mg PO QHS, Lasix 40mg PO Daily, Lopressor 6.25mg PO BID, Nitrostat 0.4mg SL Q5m PRN. Please continue to monitor for S/S amiodarone toxicity, S/S bleeding/bruising, fluid status, electrolytes, BP, pulse. *3. COPD: AirDuo 1 puff BID, Incruse 1 puff daily, Duoneb aerosol q4hWA. Albuterol nebs Q2h PRN. Duplicate therapy with Air Duo,Incruse and Duoneb. Please review and discontinue agents as appropriate, Thank you. Please continue to monitor for S/S COPD exacerbation, PRN nebulization use. 4. Diabetes Type II: Lantus 30 unit SC HS, Humalog 13 unit TIDCM. Please continue to monitor A1c, POC blood glucose. 5. Hypothyroid: Synthroid 50mcg PO Daily. Please continue to monitor Thyroid function test as clinically indicated, monitor for S/S hypothyroidism. 6. GERD: Protonix 40mg PO BID, Sucralfate 1Gm PO AC/HS. Please continue to monitor for GERD flare-up, recommend non-pharmacologic therapies as well to reduce exacerbations. 7. Restless Leg Syndrome: Pramipexole 1mg PO QHS. Please continue to monitor for medication effectiveness. 8. Allergic Rhinitis: Flonase 2 spray intranasally Daily. Please continue to monitor for reduction in allergy symptoms. 9. General Wellness: Os-Kaz + D 1 tab PO daily, Vitamin B12 1000mcg PO daily, Folic Acid 1mg PO Daily, Acidophilus 1 tab PO daily, Ferrex 150mg PO daily. Please continue to monitor. 10. Cough: Benzocaine/Menthol [place] po q2H PRN cough. Please monitor for need and medication usage. Psychotropic Medications: Depression: Paxil 20mg PO Daily. Please continue to monitor for medication effectiveness. Insomnia: Ambien 5mg PO QHS PRN. Please continue to monitor PRN usage, S/S excessive tiredness. Unnecessary Medications: None Bowel Regimen: Miralax 17g PO daily, Senna/Docusate 1 tab PO BID, Dulcolax 10mg PO Daily PRN, MOM 30mL PO Daily PRN. Please continue to monitor for increased/decreased constipation and/or diarrhea. Date of Note:: 02/12/21
[2021-02-12 15:56] LABS: Bedside Glucose 211 mg/dL (70-110)
[2021-02-12] MEDS: Pramipexole Di-HCl 1 MG Tablet PO (22:33)
[2021-02-12] MEDS: Atorvastatin Calcium 80 MG Tablet PO (22:33)
[2021-02-12 22:35] LABS: Bedside Glucose 156 mg/dL (70-110)
[2021-02-13] VITALS (8 sets, daily range): BP systolic 139–153; BP diastolic 52–53; PULSE 50–62; RESP 16–20; TEMP 36.2–36.4; O2SAT 92–98
[2021-02-13] MEDS: Fluticasone 0.05% 1 SPRAY NASAL.SRY 2 SPRAY NASAL (04:54)
[2021-02-13] MEDS: Umeclidinium Bromide Inhaler 1 PUFF INHALATION (04:55)
[2021-02-13] MEDS: Fluticasone/Salmeterol 232-14 Inhaler 1 PUFF INHALATION ×2 (04:55→17:05)
[2021-02-13] MEDS: Polyethylene Glycol 3350 17 GM PACKET PO (04:56)
[2021-02-13] MEDS: Metoprolol Tartrate 25 MG Tablet 6.25 MG PO ×2 (04:57→17:07)
[2021-02-13] MEDS: Sucralfate 1 GM Tablet PO ×4 (04:57→19:53)
[2021-02-13] MEDS: Cyanocobalamin 500 MCG Tablet 1000 MCG PO (04:57)
[2021-02-13] MEDS: guaiFENesin 1,200 MG Tablet 1200 MG PO ×2 (04:57→17:06)
[2021-02-13] MEDS: Iron Polysaccharide Complex 150 MG CAPSULE PO (04:57)
[2021-02-13] MEDS: Amiodarone 200 MG Tablet PO (04:57)
[2021-02-13] MEDS: Furosemide 40 MG Tablet PO (04:57)
[2021-02-13] MEDS: Levothyroxine 50 MCG Tablet PO (04:58)
[2021-02-13] MEDS: Paroxetine 20 MG Tablet PO (04:58)
[2021-02-13] MEDS: Menthol/Lanolin/Calamine/Znox 113 GM Tube 1 APPLIC TOPICAL ×2 (04:58→17:06)
[2021-02-13] MEDS: Senna/Docusate Sodium 1 Tablet PO ×2 (04:58→17:06)
[2021-02-13] MEDS: Nystatin Powder 15gm Bottle 1 APPLIC TOPICAL ×2 (04:58→17:06)
[2021-02-13] MEDS: Pantoprazole Sodium 40 MG Tablet PO ×2 (04:58→17:06)
[2021-02-13] MEDS: Ipratropium/Albuterol Sulfate 3 ML AMPUL.NEB INHALATION ×3 (06:35→19:20)
[2021-02-13] MEDS: Calcium Carb/Vitamin D 1 TABLET Tablet PO (07:55)
[2021-02-13] MEDS: Folic Acid 1 MG Tablet PO (07:55)
[2021-02-13] MEDS: Aspirin E.C. 81 MG Tablet PO (07:55)
[2021-02-13] MEDS: Insulin Lispro 100 UNIT/ML INSULN.PEN 13 UNIT SC ×3 (07:55→17:05)
--- NOTE | 2021-02-13 08:33 | PCA ---
Called for a replacement tank from medical service [facility]. I spoke with maik who i informed her the company dropped off a Portable O2 tank to facility for pt that was left on by staff of medical service [facility] which resulted in tank being empty, [employer] will replace tank for pt upon discharge. maik was uncertain of a ETA of a new tank. 02/13/2021 @ 0830am.
[2021-02-13 08:41] LABS: Bedside Glucose 159 mg/dL (70-110)
--- NOTE | 2021-02-13 09:55 | CASEMGMT ---
Social Work BIMS and PHQ-9 completed for MDS assessment. Vera Waller, MARKET RESEARCH INTERN [employer]
[2021-02-13 11:05] LABS: Bedside Glucose 164 mg/dL (70-110)
[2021-02-13] MEDS: oxyCODONE 5 MG Tablet PO ×2 (11:17→22:09)
[2021-02-13 16:45] LABS: Bedside Glucose 114 mg/dL (70-110)
[2021-02-13] MEDS: Pramipexole Di-HCl 1 MG Tablet PO (19:53)
[2021-02-13] MEDS: Atorvastatin Calcium 80 MG Tablet PO (19:53)
[2021-02-13] MEDS: BENZOCAINE/MENTHOL 1 LOZENGE 2 LOZENGE MUCOUS MEM (19:56)
[2021-02-13 21:56] LABS: Bedside Glucose 99 mg/dL (70-110)
[2021-02-13] MEDS: Zolpidem Tartrate 5 MG Tablet PO (22:09)
[2021-02-14 01:01] LABS: Bedside Glucose 136 mg/dL (70-110)
[2021-02-14 05:00] VITALS: BP 156/74; PULSE 63; RESP 18; TEMP 36.6; O2SAT 91
[2021-02-14 05:47] VITALS: BP 154/74; PULSE 63
[2021-02-14] MEDS: Amiodarone 200 MG Tablet PO (05:47)
[2021-02-14] MEDS: Furosemide 40 MG Tablet PO (05:47)
[2021-02-14] MEDS: Cyanocobalamin 500 MCG Tablet 1000 MCG PO (05:47)
[2021-02-14] MEDS: Pantoprazole Sodium 40 MG Tablet PO (05:47)
[2021-02-14] MEDS: Levothyroxine 50 MCG Tablet PO (05:47)
[2021-02-14] MEDS: Metoprolol Tartrate 25 MG Tablet 6.25 MG PO (05:47)
[2021-02-14] MEDS: Paroxetine 20 MG Tablet PO (05:48)
[2021-02-14] MEDS: guaiFENesin 1,200 MG Tablet 1200 MG PO (05:48)
[2021-02-14] MEDS: Iron Polysaccharide Complex 150 MG CAPSULE PO (05:48)
[2021-02-14] MEDS: Nystatin Powder 15gm Bottle 1 APPLIC TOPICAL (05:48)
[2021-02-14] MEDS: Sucralfate 1 GM Tablet PO ×2 (05:48→11:19)
[2021-02-14] MEDS: Umeclidinium Bromide Inhaler 1 PUFF INHALATION (05:48)
[2021-02-14] MEDS: Menthol/Lanolin/Calamine/Znox 113 GM Tube 1 APPLIC TOPICAL (05:49)
[2021-02-14] MEDS: Fluticasone/Salmeterol 232-14 Inhaler 1 PUFF INHALATION (05:49)
[2021-02-14] MEDS: Fluticasone 0.05% 1 SPRAY NASAL.SRY 2 SPRAY NASAL (05:49)
[2021-02-14 06:26] LABS: Bedside Glucose 105 mg/dL (70-110)
[2021-02-14] MEDS: Insulin Lispro 100 UNIT/ML INSULN.PEN 13 UNIT SC ×2 (07:42→12:21)
[2021-02-14] MEDS: Folic Acid 1 MG Tablet PO (07:44)
[2021-02-14] MEDS: Aspirin E.C. 81 MG Tablet PO (07:44)
[2021-02-14] MEDS: Calcium Carb/Vitamin D 1 TABLET Tablet PO (07:44)
[2021-02-14 07:54] VITALS: O2SAT 91
[2021-02-14 10:33] VITALS: O2SAT 99
[2021-02-14 10:46] LABS: Bedside Glucose 93 mg/dL (70-110)
== END 2021-02-14 13:21 | disposition home health service (06) | DRG 193 ==
PROVIDERS: Anesthesiology; Internal Medicine; Internal Medicine Endocrinology, Diabetes & Metabolism; Surgery; Admitting Provider Family Medicine Geriatric Medicine; PCP Nurse Practitioner; Visit Provider Family Medicine Geriatric Medicine
DX: J18.9 Pneumonia, unspecified organism (principal); K25.4 Chronic or unspecified gastric ulcer with hemorrhage; J44.1 Chronic obstructive pulmonary disease with (acute) exacerbation; I50.32 Chronic diastolic (congestive) heart failure; E72.12 Methylenetetrahydrofolate reductase deficiency; N39.0 Urinary tract infection, site not specified; I13.0 Hypertensive heart and chronic kidney disease with heart failure and stage 1 through stage 4 chronic kidney disease, or unspecified chronic kidney disease; N18.4 Chronic kidney disease, stage 4 (severe); J44.0 Chronic obstructive pulmonary disease with (acute) lower respiratory infection; D62 Acute posthemorrhagic anemia; Z23 Encounter for immunization; E11.42 Type 2 diabetes mellitus with diabetic polyneuropathy; E11.51 Type 2 diabetes mellitus with diabetic peripheral angiopathy without gangrene; F32.9 Major depressive disorder, single episode, unspecified; D50.9 Iron deficiency anemia, unspecified; B35.4 Tinea corporis; B96.1 Klebsiella pneumoniae [K. pneumoniae] as the cause of diseases classified elsewhere; K21.9 Gastro-esophageal reflux disease without esophagitis; E78.5 Hyperlipidemia, unspecified; E11.22 Type 2 diabetes mellitus with diabetic chronic kidney disease; E66.9 Obesity, unspecified; I48.0 Paroxysmal atrial fibrillation; M19.90 Unspecified osteoarthritis, unspecified site; F41.9 Anxiety disorder, unspecified; E03.9 Hypothyroidism, unspecified; K58.9 Irritable bowel syndrome, unspecified; G25.81 Restless legs syndrome; I27.21 Secondary pulmonary arterial hypertension; M79.7 Fibromyalgia; I25.2 Old myocardial infarction; G47.33 Obstructive sleep apnea (adult) (pediatric); Z79.01 Long term (current) use of anticoagulants; Z79.82 Long term (current) use of aspirin; Z79.899 Other long term (current) drug therapy; Z79.4 Long term (current) use of insulin; Z87.891 Personal history of nicotine dependence; Z68.39 Body mass index [BMI] 39.0-39.9, adult; Z95.2 Presence of prosthetic heart valve
CPT/HCPCS: 36415; 71046; 73630; 80048; 82728; 82962; 83540; 83550; 84439; 84443; 85014; 85018; 85025; 85027; 85610; 86850; 86900; 86901; 86920; 86922; 87070; 87077; 87186; 87205; 87426; 92507; 92526; 92610; 94002; 94003; 94640; 94667; 94668; 97110; 97116; 97161; 97166; 97530; 97535; G0009; J7040; J7120; P9016; P9040; 90670; A4216; J1940; J3490

== ENCOUNTER 2021-01-16 09:26 | Day surgery (SDC) | payer MEDICARE, MEDICAID, SELFPAY ==
[2020-12-31 16:33] VITALS: BMI 39.3
[2021-01-16] VITALS (10 sets, daily range): BP systolic 83–158; BP diastolic 39–57; PULSE 48–62; RESP 16–50; TEMP 35.8–36.2; O2SAT 95–100; BMI 35.5
[2021-01-16] MEDS: Lactated Ringers 1,000 ML 100 ML IV (09:57)
--- NOTE | 2021-01-16 09:58 | HP.PCM_ITS ---
Problem List (1) Anemia Status: Chronic Qualifiers: Anemia type: unspecified type Qualified Code(s): D64.9 - Anemia, unspecified History and Physical Date of Admission: 01/16/21 Problem List (1) Anemia Status: Chronic Reason for Consult Date of Consultation: 01/15/21 Reason for Consultation: Acute on chronic anemia. History of Present Illness: The patient is a 75 year old F who is currently on the transitional care unit (TCU) for strengthening and rehabilitation. Patient stated she had stubbed her toes back in mid November and noted increased pain and redness radiating up her leg. She presented to the ED where she was admitted. She was then discharged to TCU. On 12/28, a rapid response was called on the patient and she was sent to the ED due to altered mental status and angioedema possibly due to antibiotics. She was intubated and extubated the following day. She was subsequently discharged back to the TCU. She notes a history of anemia. She states she has had multiple blood transfusions. She notes having 2 units of PRBC last month. She notes having dark/black sticky stools however she says this is her normal. She denies bright red blod per rectum. She states she is having normal consistency bowel movements. Her last upper and lower scope was last year in [place]. She states she had some polyps removed. She notes her mother had colon cancer and one of her daughters from complication of Crohn's disease. She notes despite being on omeprazole at home she continues to have reflux symptoms. She is on Eliquis and aspirin at home. She notes having an aortic valve replacement approximately 4 years ago and has been on Eliquis since that time. Dr. Killian is her meteorology teacher. She is on 4 L of oxygen via nasal canula at home. Her hemoglobin has decreased from 9.9 on 01/01 to 6.6 on 01/15. Past Medical History Past Medical History (Chronic Problems): Chronic Problems (Last Reviewed 12/10/20 @ 11:[address] Brown Vargas MD) Other specified peripheral vascular diseases (Chronic) Non-pressure chronic ulcer of other part of left foot with fat layer exposed (Chronic) Chronic ulcer of great toe of right foot with fat layer exposed (Chronic) Fracture of right great toe (Chronic) Depression (Chronic) Peripheral arterial occlusive disease (Chronic) Diabetic polyneuropathy (Chronic) Atrial fibrillation (Chronic) Hypertension (Chronic) Hypokalemia (Chronic) Osteoporosis (Chronic) Gastroesophageal reflux disease (Chronic) Insomnia (Chronic) Obesity (Chronic) Acute on chronic diastolic CHF (congestive heart failure) (Chronic) COPD exacerbation (Chronic) Diabetes (Chronic) Toxic multinodular goiter (Chronic) Polyneuropathy due to type 2 diabetes mellitus (Chronic) COPD (chronic obstructive pulmonary disease) (Chronic) Acute on chronic respiratory failure with hypoxia (Chronic) Paroxysmal atrial fibrillation (Chronic) Anemia (Chronic) Non-rheumatic aortic stenosis (Chronic) H/O aortic valve replacement (Chronic 12/03/16) TAVR: 23 mm Guillaume-Sapiens S3 valve 12/03/2016 Chronic diastolic heart failure (Chronic) Left carotid artery stenosis (Chronic) Right bundle branch block (RBBB) (Chronic) Hyperlipidemia (Chronic) Essential (primary) hypertension (Chronic) Medical History: Medical History (Last Reviewed 01/15/21 @ 10:06 by Cora DUNBAR, PAMalkaC) Paroxysmal atrial fibrillation (Chronic) I48.0 Anemia (Chronic) D64.9 Non-rheumatic aortic stenosis (Chronic) I35.0 Chronic diastolic heart failure (Chronic) I50.32 Left carotid artery stenosis (Chronic) I65.22 Right bundle branch block (RBBB) (Chronic) I45.10 Hyperlipidemia (Chronic) E78.5 Essential (primary) hypertension (Chronic) I10 Type 2 diabetes mellitus E11.9 Anxiety F41.9 Arthritis M19.90 Asthma J45.909 Breast lump N63.0 COPD (chronic obstructive pulmonary disease) J44.9 Carotid artery stenosis I65.29 Carpal tunnel syndrome G56.00 Depression F32.9 Fibromyalgia M79.7 GERD (gastroesophageal reflux disease) K21.9 H/O transfusion of whole blood Z92.89 Hypothyroidism E03.9 IBS (irritable bowel syndrome) K58.9 MTHFR mutation E72.12 Obesity E66.9 Osteoporosis M81.0 RLS (restless legs syndrome) G25.81 Skin cancer C44.90 Tuberculosis A15.9 Secondary pulmonary arterial hypertension I27.21 Thrombocytopenia D69.6 Secondary to sepsis versus heparin-induced thrombocytopenia Non-STEMI (non-ST elevated myocardial infarction) (Inactive) Onset Date: 09/27/19 I21.4 Seasonal allergies J30.2 Allergies ciprofloxacin [From Cipro] Allergy (Verified 12/28/20 06:50) Rash ciprofloxacin HCl [From Cipro] Allergy (Verified 12/28/20 06:50) Rash gabapentin [From Neurontin] Allergy (Verified 12/28/20 06:50) Rash heparin Allergy (Verified 12/28/20 06:50) Low platelets tuberculin, purified protein deriva Adverse Reaction (Verified 12/28/20 06:50) Other Home Medications: Ambulatory Orders Medication Instructions Recorded Albuterol Aerosols [Ventolin 2.5 mg INHALATION Q4H PRN PRN 09/26/19 Aerosols] Albuterol IH (ProAir) [Proair Hfa] 2 puff INHALATION Q6H PRN PRN 09/26/19 Cyanocobalamin (Vitamin B-12) 1,000 mcg PO DAILY 09/26/19 [Vitamin B-12] Fluticasone 0.05% [Flonase Nasal 2 spray NASAL DAILY 09/26/19 Ashley] Fluticasone/Salmeterol [Advair Hfa 2 puff INHALATION BID 09/26/19 115-21 Mcg Inhaler] L.acidoph,Paracasei, B.lactis 1 ea PO DAILY 09/26/19 [Probiotic] Nystatin [Nyamyc] 30 gm TP BID 09/26/19 Paroxetine HCl [Paxil] 40 mg PO DAILY 09/26/19 Ropinirole HCl 2 mg PO BID 09/26/19 Tiotropium Catherine [Spiriva] 18 mcg IH DAILY 09/26/19 calcium carbonate 500 mg (1,250 1 tab PO DAILY tab 01/11/20 mg)-vitamin D3 200 unit tablet omeprazole 20 mg capsule,delayed 40 mg PO DAILY cap 09/03/20 release nitroglycerin 0.4 mg sublingual 0.4 mg SUBLINGUAL PRN PRN #25 tab 10/30/20 tablet Amiodarone HCl 200 mg PO DAILY 12/12/20 Apixaban [Eliquis] 2.5 mg PO BID 12/12/20 Aspirin E.C. [Ecotrin] 81 mg PO DAILY@0800 12/12/20 Atorvastatin Calcium [Lipitor] 80 mg PO QHS 12/12/20 Cefdinir [Omnicef [equiv]] 300 mg PO Q12H 12/12/20 Denosumab [Prolia] 60 mg SC [id number] 12/12/20 Insulin Glargine [Lantus SoloStar 15 units SC BREAKFAST 12/12/20 Pen] Insulin Lispro [Humalog KwikPen] 8 unit SC TIDCM 12/12/20 Insulin Lispro [Humalog KwikPen] See Protocol SC TIDCM 12/12/20 Iron Polysaccharide Complex 150 mg PO DAILY #0 12/12/20 [Ferrex 150] Levothyroxine Sodium [Synthroid] 25 mcg PO DAILY 12/12/20 Metoprolol Tartrate 25 mg PO BID 12/12/20 Suvorexant [Belsomra] 20 mg PO QHS #0 12/12/20 Folic Acid 1 mg PO DAILY 12/28/20 Pramipexole Di-HCl [Mirapex] 1 mg PO DAILY 12/28/20 Umeclidinium Catherine Inhaler 1 puff IH DAILY 12/28/20 [Incruse Ellipta Inhaler] Furosemide [Lasix] 40 mg PO DAILY #0 12/31/20 Prednisone [Deltasone] 40 mg PO DAILY 12/31/20 Smz/Tmp Ds [Bactrim Ds] 1 tablet PO DAILY 12/31/20 Surgical History: Surgical History (Last Reviewed 01/15/21 @ 10:06 by Cora DUNBAR, PAMalkaC) H/O aortic valve replacement (Chronic) Onset Date: 12/03/16 Z95.2 TAVR: 23 mm Guillaume-Sapiens S3 valve 12/03/2016 H/O: hysterectomy Z98.890, Z90.710 H/O laminectomy Z98.890 History of left heart catheterization Onset Date: 09/03/16 Z98.890 History of tympanoplasty Z98.890 Hx of melanoma excision Z98.890, Z85.820 1997 Hx of rotator cuff surgery Z98.890 JAIME S/P hip replacement Z96.649 S/p bilateral carpal tunnel release Z98.890 Surgical History: appendectomy - Right hip replacement, back surgery, laminectomy, carpal tunnel surgery, right leg hematoma extraction, hysterectomy, rotator cuff repair, total hip arthroplasty - Right., - - Aortic valve replacement, TAVR, Laminectomy, Tympanostomy, Melanoma excision, Right carpal tunnel release. Psychiatric History: Anxiety, Depression ORTHOTICS ASSISTANT History: No pertinent ORTHOTICS ASSISTANT history Lives: Alone Smoking Status: Former smoker Tobacco Use: Non-smoker Alcohol: None Drugs: None - *Family History Maternal Family History: Family History (Last Reviewed 01/15/21 @ 10:07 by Cora DUNBAR, PA-C) Mother Arthritis Diabetes Hormone deficiency CVA (cerebral vascular accident) Colon cancer Cancer Sister Bleeding disorder CVA (cerebral vascular accident) Colon cancer Daughter Cancer Seizures Father Diabetes Leukemia Grandmother Diabetes Unknown Asthma Heart disease Hypertension High cholesterol Thyroid disorder Osteoporosis Cancer Tuberculosis History Items: No pertinent history Review of Systems Constitutional: Reports: Weight Change - weight gain. Denies: Anorexia, Weakness HEENT: Denies: Head Aches, Sinus Congestion, Sinus Drainage Cardiovascular: Denies: Chest Pain, Palpitations Respiratory: Reports: Cough, Shortness of Breath Gastrointestinal: Reports: Dyspepsia, Melena. Denies: Abdominal Pain, Constipation, Diarrhea, Hematemesis, Hematochezia, Nausea, Vomiting Genitourinary: Denies: Dysuria Musculoskeletal: Reports: Foot Pain Skin: Denies: Rash, Wounds Neurological: Reports: Balance problems Psychiatric: Denies: Anxiety, Depression, Homicidal Ideations, Suicidal Ideations Hematologic/ Lymphatic: Reports: Anemia, Easy Bruising, Easy Bleeding, Hx of blood transfusion Patient Problems: Active and Suspected Problems (Last Reviewed 12/10/20 @ 11:[address] Brown Vargas MD) Acute respiratory failure with hypoxia (Acute) Septic shock (Acute) Pneumonia (Acute) Hyperkalemia (Acute) Elevated liver enzymes (Acute) Debility (Acute) Acute kidney injury (Acute) - Physical Exam Vitals/I&O's: Vital Signs Temp Pulse Resp BP Pulse Ox 98.3 F 64 20 H 123/57 H 95 01/15/21 05:00 01/15/21 05:53 01/15/21 05:00 01/15/21 05:53 01/15/21 08:11 Oxygen Flow Rate (L/min) 4 Oxygen Delivery Method Nasal Cannula Weight: 191 lb 3.2 oz Body Mass Index (BMI) 39.3 Finger Stick Blood Glucose 112 Intake and Output for Last 24 Hours 01/13/21 01/14/21 01/15/21 23:59 23:59 23:59 Intake Total 840 / 840 1080 / 1080 240 / 240 Output Total 550 / 550 Balance 840 / 840 1080 / 1080 -310 / -310 General: Alert, Oriented x3, Cooperative HEENT: Atraumatic, PERRLA, EOMI, Normocephalic Neck: Supple, No JVD, Negative Carotid Bruits Lungs: Wheezes - bilaterally Cardiovascular: Regular rate, No murmurs Abdomen: Bowel Sounds Present, Soft, Non Tender, Obese Extremities: Capillary Refill Less than 3 Seconds, Edema Skin: Ulcer/ Wound - left great toe Musculoskeletal: No Tenderness to Palpation of Joints or Extremities Neurological: Neuro grossly intact Psych/Mental Status: Normal Affect, Appropriate Laboratory Results 01/14/21 11:14: POC Glucose 175 H 01/14/21 16:34: POC Glucose 129 H 01/14/21 21:36: POC Glucose 196 H 01/15/21 05:45: WBC 8.3, RBC 2.64 L, Hgb 6.6 L, Hct 23.9 L, MCV 90.5, MCH 25.0 L , MCHC 27.6 L, RDW Std Deviation 72.2 H, RDW Coeff of Jeff 23.0 H, Plt Count 76 L , Immature Gran % (Auto) 0.600, Neut % (Auto) 72.1 H, Lymph % (Auto) 18.3 L, Marion % (Auto) 8.3, Eos % (Auto) 0.5, Baso % (Auto) 0.2, Absolute Neuts (auto) 6.0, Absolute Lymphs (auto) 1.51, Nucleated RBC % 0 01/15/21 05:45: Sodium 140, Potassium 4.1, Chloride 104, Carbon Dioxide 31.0, Anion Gap 5, BUN 47 H, Creatinine 1.35 H, Estim Creat Clear Calc 26.26, Est GFR (MDRD) Af Amer 49 L, Est GFR (MDRD) Non-Af 41 L, BUN/Creatinine Ratio 34.8 H, Glucose 170 H, Calcium 8.6 01/15/21 06:07: POC Glucose 158 H Current Medications Acetaminophen (Acetaminophen 500 Mg Tablet) 1,000 mg PO Q6H PRN PRN Reason: Pain Score 1-3 Last Admin: 01/09/21 20:52 Dose: 1,000 mg Documented by: Albuterol Sulfate (Albuterol 2.5 Mg/3 Ml Vial.Neb.) 2.5 mg INHALATION Q4H PRN PRN PRN Reason: SOB &/OR WHEEZING Last Admin: 01/14/21 00:09 Dose: 2.5 mg Documented by: Amiodarone HCl (Amiodarone 200 Mg Tablet) 200 mg PO DAILY [facility] Last Admin: 01/15/21 05:53 Dose: 200 mg Documented by: Apixaban (Apixaban 2.5 Mg Tablet) 2.5 mg PO BID [facility] Last Admin: 01/15/21 05:53 Dose: 2.5 mg Documented by: Aspirin (Aspirin E.C. 81 Mg Tablet) 81 mg PO DAILY@0800 [facility] Last Admin: 01/15/21 08:09 Dose: 81 mg Documented by: Atorvastatin Calcium (Atorvastatin Calcium 80 Mg Tablet) 80 mg PO QHS [facility] Last Admin: 01/14/21 21:24 Dose: 80 mg Documented by: Bisacodyl (Bisacodyl 5 Mg Tablet) 10 mg PO DAILY PRN PRN Reason: Constipation Calamine/Phenol (Menthol/Lanolin/Calamine/Znox 113 Gm Tube) 1 applic TOPICAL BID [facility], [facility]; Protocol Last Admin: 01/15/21 06:00 Dose: 1 applic Documented by: Calcium/Vitamin D (Calcium Carb/Vitamin D 1 Tablet Tablet) [facility] Last Admin: 01/15/21 08:09 Dose: 1 tablet Documented by: Cyanocobalamin (Cyanocobalamin 500 Mcg Tablet) 1,000 mcg PO DAILY [facility] Last Admin: 01/15/21 05:53 Dose: 1,000 mcg Documented by: Fluticasone Propionate (Fluticasone 0.05% 1 Ashley Nasal.Sry) 2 spray NASAL DAILY [facility] Last Admin: 01/15/21 05:51 Dose: 2 spray Documented by: Folic Acid (Folic Acid 1 Mg Tablet) [facility] Last Admin: 01/15/21 08:09 Dose: 1 mg Documented by: Furosemide (Furosemide 40 Mg Tablet) 40 mg PO DAILY [facility] Last Admin: 01/15/21 06:03 Dose: 40 mg Documented by: Insulin Glargine (Insulin Glargine 100 Units/Ml Pen) 15 units SC QHS [facility] Last Admin: 01/14/21 22:04 Dose: 15 u Documented by: Insulin Human Lispro (Insulin Lispro 100 Unit/Ml Insuln.Pen) 5 unit SC TIDAC [facility] Last Admin: 01/15/21 08:08 Dose: 5 units Documented by: Lactobacillus Acidophilus (Lactobacillus Acidophilus) 1 tablet PO DAILY [facility] Last Admin: 01/15/21 05:53 Dose: 1 tablet Documented by: Levothyroxine Sodium (Levothyroxine 25 Mcg Tablet) 25 mcg PO DAILY [facility] Last Admin: 01/15/21 05:53 Dose: 25 mcg Documented by: Magnesium Hydroxide (Magnesium Hydroxide 30 Ml Udc) 30 ml PO DAILY PRN PRN Reason: Constipation Metoprolol Tartrate (Metoprolol Tartrate 25 Mg Tablet) 12.5 mg PO BID [facility] Last Admin: 01/15/21 05:53 Dose: 12.5 mg Documented by: Nitroglycerin (Nitroglycerin (Inpatient Use) 0.4 Mg Tab.Subl) 0.4 mg SL Q5M PRN PRN Reason: CARDIAC/CHEST PAIN Nutritional Formula (Lactose Free) (Glucerna Shake 120 Ml Liquid) 120 ml PO TIDCM [facility] Last Admin: 01/15/21 08:07 Dose: 120 ml Documented by: Nystatin (Nystatin Powder 15gm Bottle) 1 applic TOPICAL BID [facility]; Protocol Last Admin: 01/15/21 06:01 Dose: 1 applic Documented by: Oxycodone HCl (Oxycodone 5 Mg Tablet) 5 mg PO Q4H PRN PRN PRN Reason: Pain Score 6-10 Last Admin: 01/13/21 05:52 Dose: 5 mg Documented by: Pantoprazole Sodium (Pantoprazole Sodium 40 Mg Tablet) 40 mg PO DAILY [facility] Last Admin: 01/15/21 05:53 Dose: 40 mg Documented by: Paroxetine HCl (Paroxetine 20 Mg Tablet) 40 mg PO DAILY [facility] Last Admin: 01/15/21 05:53 Dose: 40 mg Documented by: Polyethylene Glycol (Polyethylene Glycol 3350 17 Gm Packet) 17 gm PO DAILY [facility] Last Admin: 01/15/21 05:52 Dose: 17 gm Documented by: Polysaccharide Iron Complex (Iron Polysaccharide Complex 150 Mg Capsule) 150 mg PO DAILY [facility] Last Admin: 01/15/21 05:56 Dose: 150 mg Documented by: Pramipexole Dihydrochloride (Pramipexole Di-Hcl 1 Mg Tablet) 1 mg PO BID [facility] Last Admin: 01/15/21 05:53 Dose: 1 mg Documented by: Fluticasone/Salmeterol (Fluticasone/Salmeterol 232-14 Inhaler) 1 puff INHALATION Q12 [facility] Last Admin: 01/15/21 05:55 Dose: 1 puff Documented by: Senna/Docusate Sodium (Senna/Docusate Sodium 1 Tablet) 1 tablet PO BID [facility] Last Admin: 01/15/21 05:53 Dose: 1 tablet Documented by: Sodium Chloride (0.9% Saline Lock 10 Ml Syringe) 10 - 40 ml IV UD PRN PRN Reason: Midline Flush Last Admin: 01/15/21 05:57 Dose: 10 ml Documented by: Sodium Chloride (0.9 % Nacl (Sterile) Posiflush 10 Ml) 10 - 40 ml IV UD PRN PRN Reason: Port access or dressing change Umeclidinium Catherine (Umeclidinium Catherine Inhaler) 1 puff INHALATION DAILY [facility] Last Admin: 01/15/21 05:51 Dose: 1 puff Documented by: Zolpidem Tartrate (Zolpidem Tartrate 5 Mg Tablet) 5 mg PO QHS PRN PRN Reason: INSOMNIA Last Admin: 01/06/21 22:05 Dose: 5 mg Documented by: Assessment/Plan All Active Problems (Last Reviewed 12/10/20 @ 11:[address] Brown Vargas MD) Acute respiratory failure with hypoxia (Acute) Septic shock (Acute) Pneumonia (Acute) Hyperkalemia (Acute) Elevated liver enzymes (Acute) Cellulitis of right leg (Acute) Debility (Acute) Acute kidney injury (Acute) I have been consulted in conjunction with Dr. Ellis Impression: Acute on chronic anemia. Plan: I have discussed this patient with Dr. Ellis. Patient had an upper and lower scope last year with her physician in [place] where no bleeding was identified per patient. Dr. Ellis will start with an upper scope with possible biopsies and possible cessation of bleeding tomorrow. Pending those results will determine if a colonoscopy is warranted which would be completed for Tuesday. Hold patient's Eliquis starting tomorrow morning and resume Tuesday. Procedure details, risks and benefits have been explained to the patient. Patient has had the opportunity to ask and have questions answered. Patient verbally understands and agrees with the plan. We will proceed tomorrow. Thank you for allowing us to participate in this patient's care. Office Visits / Consults: 31050 OP Consult L3 - TCU 01/15/21 1014 <Electronically signed by Cora DUNBAR PA-C> Date _ Cora DUNBAR PA-C Cosigner Signature (if applicable): Date CC: SOFTWARE SALES EXECUTIVE-C Miranda Coffman; CHRISTIAN-C Yesenia Leon; Dr. Charles Ellis MD ~ Signed ADDENDUM by Dr. Charles Ellis MD on 01/16/21 at 0641 This morning I independently saw and examined the patient. I discussed with her EGD with possible invention. The patient is on Eliquis and having black stools and anemia. The patient had upper and lower scope 1 year ago which were normal except for small polyps. I discussed performing EGD today with her as well as the risks including but not limited to bleeding, infection, perforation of the GI tract requiring transfer. Patient understands the risks and is when to proceed. If necessary I will plan on colonoscopy next week but I find it unlikely the patient would have melanotic stools and anemia having had a normal colonoscopy 1 year ago. Charles Ellis MD Pager: [facility] [place] [facility] [address] [place] [address] [address] [place] [phone] Office: I have re-examined the patient. There are no clinical changes since date of exam.
[2021-01-16 10:06] LABS: Bedside Glucose 95 mg/dL (70-110)
--- NOTE | 2021-01-16 10:15 | EGD_PTH ---
PATIENT: MARY KAY HERNÁNDEZ LOC: EN U#:[id number] AGE/SX: 75/F ROOM: RE01/16/[address]: Dr. Charles Ellis MD : 1945 BED: DIS: 01/16/2021 SPEC #: [id number] RECD: 01/16/21 12:12 STATUS: ALEXANDRE REGisele #: [id number] HESHAM: 01/16/21 10:[address]: Charles Ellis DEPT: SURGICAL PATHOLOGY RECD BY: Minerva Alcantar ENTERED: 01/16/21 12:35 SP TYPE: EGD BIOPSY OTHR DR: YOLIS Merrill Tissues: Stomach, NOS Procedures: Surgery Specimen Level IV HEADER OPERATION: EGD ([facility] [place]) PRE-OP DIAGNOSIS: Anemia TISSUE SUBMITTED: Stomach ulcer MICROSCOPIC DIAGNOSIS Gastric ulcer, biopsy: Focal ulceration with acute inflammation and granulation. AM:hilda 01/19/2021 MICROSCOPIC DESCRIPTION Slides are reviewed. GROSS DESCRIPTION Received in fixative is one container labeled with the patient's name and designated stomach ulcer. The specimen consists of two irregular fragments of light love soft tissue that in aggregate measure 0.5 x 0.5 x 0.1 cm. The specimen is totally submitted in one cassette. / SJ:hilda 01/16/21 TC:2 CPT: 14653
--- NOTE | 2021-01-16 10:19 | OP.EGD_ITS ---
Patient Name: Sanjay Jama Procedure Date: 01/16/2021 9:57 AM Date of : 1945 Age: 75 Procedure: Upper GI endoscopy Indications: Iron deficiency anemia Providers: Charles Ellis MD Medicines: Monitored Anesthesia Care Patient Profile: This is a 75 year old female. Refer to note in patient chart for documentation of history and physical. Complications: No immediate complications. Procedure: Pre-Anesthesia Assessment: - Prior to the procedure, a History and Physical was performed, and patient medications and allergies were reviewed. The patient's tolerance of previous anesthesia was also reviewed. The risks and benefits of the procedure and the sedation options and risks were discussed with the patient. All questions were answered, and informed consent was obtained. Prior Anticoagulants: The patient has taken Eliquis (apixaban), last dose was 1 day prior to procedure. After reviewing the risks and benefits, the patient was deemed in satisfactory condition to undergo the procedure. After obtaining informed consent, the endoscope was passed under direct vision. Throughout the procedure, the patient's blood pressure, pulse, and oxygen saturations were monitored continuously. The gastroscope was introduced through the mouth, and advanced to the third part of duodenum. The upper GI endoscopy was accomplished without difficulty. The patient tolerated the procedure well. Scope In: 10:11:42 AM Scope Out: 10:16:41 AM Total Procedure Duration Time 0 hours 4 minutes 59 seconds Findings: The esophagus was normal. The examined duodenum was normal. One oozing superficial gastric ulcer with adherent clot was found in the prepyloric region of the stomach. Biopsies were taken with a cold forceps for Helicobacter pylori testing. To prevent bleeding after the biopsy, two hemostatic clips were successfully placed. There was no bleeding at the end of the procedure. Impression: - Normal esophagus. - Normal examined duodenum. - Oozing gastric ulcer with adherent clot. Biopsied. Clips were placed. Recommendation: - [facility] care. - Advance diet as tolerated. - Continue present medications. - Resume Eliquis (apixaban) at prior dose in 2 days. Procedure Code(s): --- Professional --- 09758, Esophagogastroduodenoscopy, flexible, transoral; with biopsy, single or multiple Diagnosis Code(s): --- Professional --- K25.4, Chronic or unspecified gastric ulcer with hemorrhage D50.9, Iron deficiency anemia, unspecified CPT copyright 2017 [employer]. All rights reserved. The codes documented in this report are preliminary and upon biomedical equipment specialist review may be revised to meet current compliance requirements. Charles Ellis MD 01/16/2021 10:19:30 AM This report has been signed electronically. Number of Addenda: 0 Note Initiated On: 01/16/2021 9:57 AM
--- NOTE | 2021-01-16 10:20 | OP.CCLET_ITS ---
01/16/2021 Yesenia Leon, CHRISTIAN [address] [place] [place] [address] Re : Upper GI endoscopy procedure for Sanjay Jama Dear Ms. Leon This procedure was performed on Saturday, January 16, 2021. My impressions and recommendations are as follows: Impressions : - Normal esophagus. - Normal examined duodenum. - Oozing gastric ulcer with adherent clot. Biopsied. Clips were placed. Recommendations : - [facility]. - Advance diet as tolerated. - Continue present medications. - Resume Eliquis (apixaban) at prior dose in 2 days. My findings are described in the full procedure note, which is enclosed. If I can be of further assistance, please feel free to contact me at Doctor phone number(s): , Work: . Sincerely, Charles Ellis MD 01/16/2021 10:19:30 AM This report has been signed electronically.
[2021-01-16 11:16] LABS: Bedside Glucose 95 mg/dL (70-110)
== END 2021-01-16 12:13 | disposition skilled nursing facility (03) ==
LOC: EN 09:28 → AC 09:28
PROVIDERS: PCP Nurse Practitioner; Referring Provider Nurse Practitioner; Visit Provider Surgery
PROC: 0DJ08ZZ Inspection of Upper Intestinal Tract, Via Natural or Artificial Opening Endoscopic (ICD-10-PCS; CPT 43235; principal; 2021-01-16 10:10)
DX: D50.9 Iron deficiency anemia, unspecified (principal); K25.4 Chronic or unspecified gastric ulcer with hemorrhage; Z80.0 Family history of malignant neoplasm of digestive organs; Z79.01 Long term (current) use of anticoagulants; Z95.2 Presence of prosthetic heart valve; E03.9 Hypothyroidism, unspecified; E11.42 Type 2 diabetes mellitus with diabetic polyneuropathy; E11.51 Type 2 diabetes mellitus with diabetic peripheral angiopathy without gangrene; E78.5 Hyperlipidemia, unspecified; F32.9 Major depressive disorder, single episode, unspecified; F41.9 Anxiety disorder, unspecified; G25.81 Restless legs syndrome; I11.0 Hypertensive heart disease with heart failure; I27.21 Secondary pulmonary arterial hypertension; I48.0 Paroxysmal atrial fibrillation; I50.32 Chronic diastolic (congestive) heart failure; K21.9 Gastro-esophageal reflux disease without esophagitis; M81.0 Age-related osteoporosis without current pathological fracture; Z79.4 Long term (current) use of insulin; Z79.51 Long term (current) use of inhaled steroids; Z79.52 Long term (current) use of systemic steroids; Z79.82 Long term (current) use of aspirin; Z79.899 Other long term (current) drug therapy; Z82.49 Family history of ischemic heart disease and other diseases of the circulatory system; Z82.61 Family history of arthritis; Z82.62 Family history of osteoporosis; Z83.3 Family history of diabetes mellitus; Z83.49 Family history of other endocrine, nutritional and metabolic diseases; Z85.820 Personal history of malignant melanoma of skin; Z87.891 Personal history of nicotine dependence; Z88.1 Allergy status to other antibiotic agents; Z88.8 Allergy status to other drugs, medicaments and biological substances; Z90.710 Acquired absence of both cervix and uterus; M79.7 Fibromyalgia
CPT/HCPCS: 43239; 82962; 88305; J7120; A4216; J2405

== ENCOUNTER → 2021-01-22 10:50 | Outpatient (CLI) | payer MEDICARE, MEDICAID, SELFPAY ==
[2021-01-19 13:54] VITALS: BMI 36.3
[2021-01-22] VITALS (8 sets, daily range): BP systolic 122–156; BP diastolic 45–68; PULSE 53–69; RESP 16–20; TEMP 36.2–36.9; O2SAT 92–100; BMI 36.3
[2021-01-22 12:00] LABS: Bedside Glucose 168 mg/dL (70-110)
[2021-01-22] MEDS: Furosemide 20 MG/2 ML VIAL IV (15:12)
== END ==
PROVIDERS: PCP Nurse Practitioner; Referring Provider Family Medicine Geriatric Medicine; Visit Provider Family Medicine Geriatric Medicine
DX: J96.01 Acute respiratory failure with hypoxia (principal); R65.21 Severe sepsis with septic shock
CPT/HCPCS: 36430; 82962; 86850; 86900; 86901; 86920; 86922; J7040; P9016; A4216; J1940

== ENCOUNTER 2021-01-26 12:16 | Day surgery (SDC) | payer MEDICARE, MEDICAID, SELFPAY ==
[2021-01-22 11:32] VITALS: BMI 36.3
[2021-01-26] VITALS (7 sets, daily range): BP systolic 124–176; BP diastolic 54–82; PULSE 65–76; RESP 18–20; TEMP 36.3–36.6; O2SAT 92–99; BMI 36.3
[2021-01-26] MEDS: Lactated Ringers 1,000 ML 100 ML IV (10:11)
--- NOTE | 2021-01-26 11:17 | OP.EGD_ITS ---
Patient Name: Sanjay Jama Procedure Date: 01/26/2021 10:20 AM Date of : 1945 Age: 75 Procedure: Upper GI endoscopy Indications: Melena Providers: Charles Ellis MD Medicines: Monitored Anesthesia Care Patient Profile: This is a 75 year old female. Refer to note in patient chart for documentation of history and physical. Complications: No immediate complications. Procedure: Pre-Anesthesia Assessment: - Prior to the procedure, a History and Physical was performed, and patient medications and allergies were reviewed. The patient's tolerance of previous anesthesia was also reviewed. The risks and benefits of the procedure and the sedation options and risks were discussed with the patient. All questions were answered, and informed consent was obtained. Prior Anticoagulants: The patient has taken Eliquis (apixaban), last dose was 1 day prior to procedure. After reviewing the risks and benefits, the patient was deemed in satisfactory condition to undergo the procedure. After obtaining informed consent, the endoscope was passed under direct vision. Throughout the procedure, the patient's blood pressure, pulse, and oxygen saturations were monitored continuously. The gastroscope was introduced through the mouth, and advanced to the second part of duodenum. The upper GI endoscopy was accomplished without difficulty. The patient tolerated the procedure well. Scope In: 11:03:58 AM Scope Out: 11:12:52 AM Total Procedure Duration Time 0 hours 8 minutes 54 seconds Findings: One non-bleeding cratered gastric ulcer with adherent clot was found in the prepyloric region of the stomach. Area was successfully injected with 2 mL of a 1:10,000 solution of epinephrine for hemostasis. For hemostasis, four hemostatic clips were successfully placed. There was no bleeding at the end of the procedure. Impression: - Non-bleeding gastric ulcer with adherent clot. Injected. Clips were placed. - No specimens collected. Recommendation: - [facility]. - Advance diet as tolerated. - Continue present medications. Procedure Code(s): --- Professional --- 39314, Esophagogastroduodenoscopy, flexible, transoral; with control of bleeding, any method Diagnosis Code(s): --- Professional --- K25.4, Chronic or unspecified gastric ulcer with hemorrhage K92.1, Melena (includes Hematochezia) CPT copyright 2017 [employer]. All rights reserved. The codes documented in this report are preliminary and upon medical technologist blood bank review may be revised to meet current compliance requirements. Charles Ellis MD 01/26/2021 11:16:45 AM This report has been signed electronically. Number of Addenda: 0 Note Initiated On: 01/26/2021 10:20 AM
--- NOTE | 2021-01-26 11:17 | OP.CCLET_ITS ---
01/26/2021 Yesenia Leon, CHRISTIAN [address] [place] [address] Re : Upper GI endoscopy procedure for Sanjay Jama Dear Ms. Leon This procedure was performed on Tuesday, January 26, 2021. My impressions and recommendations are as follows: Impressions : - Non-bleeding gastric ulcer with adherent clot. Injected. Clips were placed. - No specimens collected. Recommendations : - [facility]. - Advance diet as tolerated. - Continue present medications. My findings are described in the full procedure note, which is enclosed. If I can be of further assistance, please feel free to contact me at Doctor phone number(s): , Work: . Sincerely, Charles Ellis MD 01/26/2021 11:16:45 AM This report has been signed electronically.
[2021-01-27 07:35] LABS: Bedside Glucose 85 mg/dL (70-110)
--- NOTE | 2021-01-28 10:24 | HP.PCM_ITS ---
History of Present Illness Date of Admission: 01/26/21 The patient is a 75 year old F here back from the TCU with ongoing anemia and black stools Past Medical History Past Medical History (Chronic Problems): Chronic Problems (Last Reviewed 01/19/21 @ 13:37 by Valerie Castro) Other specified peripheral vascular diseases (Chronic) Non-pressure chronic ulcer of other part of left foot with fat layer exposed (Chronic) Chronic ulcer of great toe of right foot with fat layer exposed (Chronic) Fracture of right great toe (Chronic) Depression (Chronic) Peripheral arterial occlusive disease (Chronic) Diabetic polyneuropathy (Chronic) Atrial fibrillation (Chronic) Hypertension (Chronic) Hypokalemia (Chronic) Osteoporosis (Chronic) Gastroesophageal reflux disease (Chronic) Insomnia (Chronic) Obesity (Chronic) Acute on chronic diastolic CHF (congestive heart failure) (Chronic) COPD exacerbation (Chronic) Diabetes (Chronic) Toxic multinodular goiter (Chronic) Polyneuropathy due to type 2 diabetes mellitus (Chronic) COPD (chronic obstructive pulmonary disease) (Chronic) Acute on chronic respiratory failure with hypoxia (Chronic) Paroxysmal atrial fibrillation (Chronic) Anemia (Chronic) Non-rheumatic aortic stenosis (Chronic) H/O aortic valve replacement (Chronic 12/03/16) TAVR: 23 mm Guillaume-Sapiens S3 valve 12/03/2016 Chronic diastolic heart failure (Chronic) Left carotid artery stenosis (Chronic) Right bundle branch block (RBBB) (Chronic) Hyperlipidemia (Chronic) Essential (primary) hypertension (Chronic) Medical History: Medical History (Last Reviewed 01/19/21 @ 13:37 by Valerie Castro) Paroxysmal atrial fibrillation (Chronic) I48.0 Anemia (Chronic) D64.9 Non-rheumatic aortic stenosis (Chronic) I35.0 Chronic diastolic heart failure (Chronic) I50.32 Left carotid artery stenosis (Chronic) I65.22 Right bundle branch block (RBBB) (Chronic) I45.10 Hyperlipidemia (Chronic) E78.5 Essential (primary) hypertension (Chronic) I10 Type 2 diabetes mellitus E11.9 Anxiety F41.9 Arthritis M19.90 Asthma J45.909 Breast lump N63.0 COPD (chronic obstructive pulmonary disease) J44.9 Carotid artery stenosis I65.29 Carpal tunnel syndrome G56.00 Depression F32.9 Fibromyalgia M79.7 GERD (gastroesophageal reflux disease) K21.9 H/O transfusion of whole blood Z92.89 Hypothyroidism E03.9 IBS (irritable bowel syndrome) K58.9 MTHFR mutation E72.12 Obesity E66.9 Osteoporosis M81.0 RLS (restless legs syndrome) G25.81 Skin cancer C44.90 Tuberculosis A15.9 Secondary pulmonary arterial hypertension I27.21 Thrombocytopenia D69.6 Secondary to sepsis versus heparin-induced thrombocytopenia Non-STEMI (non-ST elevated myocardial infarction) (Inactive) Onset Date: 09/27/19 I21.4 Seasonal allergies J30.2 Allergies ciprofloxacin [From Cipro] Allergy (Verified 01/19/21 13:36) Rash ciprofloxacin HCl [From Cipro] Allergy (Verified 01/19/21 13:36) Rash gabapentin [From Neurontin] Allergy (Verified 01/19/21 13:36) Rash heparin Allergy (Verified 01/19/21 13:36) Low platelets tuberculin, purified protein deriva Adverse Reaction (Verified 01/19/21 13:36) Other Home Medications: Ambulatory Orders Medication Instructions Recorded Albuterol Aerosols [Ventolin 2.5 mg INHALATION Q4H PRN PRN 09/26/19 Aerosols] Albuterol IH (ProAir) [Proair Hfa] 2 puff INHALATION Q6H PRN PRN 09/26/19 Cyanocobalamin (Vitamin B-12) 1,000 mcg PO DAILY 09/26/19 [Vitamin B-12] Fluticasone 0.05% [Flonase Nasal 2 spray NASAL DAILY 09/26/19 [place]] Fluticasone/Salmeterol [Advair Hfa 2 puff INHALATION BID 09/26/19 115-21 Mcg Inhaler] L.acidoph,Paracasei, B.lactis 1 each PO DAILY 09/26/19 [Probiotic] Nystatin [Nyamyc] 30 gm TP BID 09/26/19 Paroxetine HCl [Paxil] 40 mg PO DAILY 09/26/19 Ropinirole HCl 2 mg PO BID 09/26/19 Tiotropium [place] [Spiriva] 18 mcg IH DAILY 09/26/19 calcium carbonate 500 mg (1,250 1 tablet PO DAILY tablet 01/11/20 mg)-vitamin D3 200 unit tablet omeprazole 20 mg capsule,delayed 40 mg PO DAILY cap 09/03/20 release nitroglycerin 0.4 mg sublingual 0.4 mg SL PRN PRN #25 tablet 10/30/20 tablet Amiodarone HCl 200 mg PO DAILY 12/12/20 Apixaban [Eliquis] 2.5 mg PO BID 12/12/20 Aspirin E.C. [Ecotrin] 81 mg PO DAILY@0800 12/12/20 Atorvastatin Calcium [Lipitor] 80 mg PO QHS 12/12/20 Cefdinir [Omnicef [equiv]] 300 mg PO Q12H 12/12/20 Denosumab [Prolia] 60 mg SC [id number] 12/12/20 Insulin Glargine [Lantus SoloStar 15 units SC BREAKFAST 12/12/20 Pen] Insulin Lispro [Humalog KwikPen] 8 unit SC TIDCM 12/12/20 Insulin Lispro [Humalog KwikPen] See Protocol SC TIDCM 12/12/20 Iron Polysaccharide Complex 150 mg PO DAILY #0 12/12/20 [Ferrex 150] Levothyroxine Sodium [Synthroid] 25 mcg PO DAILY 12/12/20 Metoprolol Tartrate 25 mg PO BID 12/12/20 Suvorexant [Belsomra] 20 mg PO QHS #0 12/12/20 Folic Acid 1 mg PO DAILY 12/28/20 Pramipexole Di-HCl [Mirapex] 1 mg PO DAILY 12/28/20 Umeclidinium [place] Inhaler 1 puff IH DAILY 12/28/20 [Incruse Ellipta Inhaler] Furosemide [Lasix] 40 mg PO DAILY #0 12/31/20 Prednisone [Deltasone] 40 mg PO DAILY 12/31/20 Smz/Tmp Ds [Bactrim Ds] 1 tablet PO DAILY 12/31/20 Surgical History: Surgical History (Last Reviewed 01/19/21 @ 13:37 by Valerie Castro) H/O aortic valve replacement (Chronic) Onset Date: 12/03/16 Z95.2 TAVR: 23 mm Guillaume-Sapiens S3 valve 12/03/2016 H/O: hysterectomy Z98.890, Z90.710 H/O laminectomy Z98.890 History of left heart catheterization Onset Date: 09/03/16 Z98.890 History of tympanoplasty Z98.890 Hx of melanoma excision Z98.890, Z85.820 1997 Hx of rotator cuff surgery Z98.890 JAIME S/P hip replacement Z96.649 S/p bilateral carpal tunnel release Z98.890 Surgical History: appendectomy - Right hip replacement, back surgery, laminectomy, carpal tunnel surgery, right leg hematoma extraction, hysterectomy, rotator cuff repair, total hip arthroplasty - Right., - - Aortic valve replacement, TAVR, Laminectomy, Tympanostomy, Melanoma excision, Right carpal tunnel release. Psychiatric History: Anxiety, Depression SPECIAL EVENT ASSISTANT History: No pertinent SPECIAL EVENT ASSISTANT history Smoking Status: Former smoker - *Family History Maternal Family History: Family History (Last Reviewed 01/19/21 @ 13:37 by Valerie Castro) Mother Arthritis Diabetes Hormone deficiency CVA (cerebral vascular accident) Colon cancer Cancer Sister Bleeding disorder CVA (cerebral vascular accident) Colon cancer Daughter Cancer Seizures Father Diabetes Leukemia Grandmother Diabetes Unknown Asthma Heart disease Hypertension High cholesterol Thyroid disorder Osteoporosis Cancer Tuberculosis History Items: No pertinent history Review of Systems Constitutional: Denies: Anorexia, Fever Respiratory: Denies: Cough, Shortness of Breath Gastrointestinal: Reports: Abdominal Pain, Melena. Denies: Nausea, Vomiting Skin: Denies: Jaundice Hematologic/ Lymphatic: Reports: Anemia VTE Information - Inpt Only VTE Present on Admission: No - Physical Exam Vitals/I&O's: Vital Signs Temp Pulse Resp BP Pulse Ox 97.7 F L 65 18 124/76 H 94 01/26/21 11:40 01/26/21 11:40 01/26/21 11:40 01/26/21 11:40 01/26/21 11:40 Oxygen Flow Rate (L/min) 3 Oxygen Delivery Method Room Air Body Mass Index (BMI) 36.3 Finger Stick Blood Glucose 95 General: Alert, Oriented x3 Neck: No JVD Lungs: Short of Breath Cardiovascular: Regular rate, Regular Rhythm Abdomen: Soft, Non-Distended Assessment/Plan All Active Problems (Last Reviewed 01/19/21 @ 13:37 by Valerie Castro) Acute respiratory failure with hypoxia (Acute) Septic shock (Acute) Pneumonia (Acute) Hyperkalemia (Acute) Elevated liver enzymes (Acute) Cellulitis of right leg (Acute) Debility (Acute) Acute kidney injury (Acute) 75-year-old female with melena and history of bleeding ulcer The patient had EGD 1 week prior with clipping of a bleeding ulcer. In the interim she developed anemia and required transfusion once more and says she continued to have black tarry stools. She is here for repeat EGD. I explained endoscopy in detail to the patient. I explained the risks including but not limited to stroke or heart attack with anesthesia, perforation of the GI tract, bleeding, infection. I explained that any of these could necessitate further emergency surgery. The patient understands and all questions were answered sufficiently. The patient wishes to proceed with procedure. Charles Ellis MD Pager: [facility] [address] [place] [address], [address] [place] [address] Office:
== END 2021-01-26 12:20 | disposition skilled nursing facility (03) ==
LOC: EN 12:16 → AC 12:17
PROVIDERS: PCP Nurse Practitioner; Referring Provider Surgery; Visit Provider Surgery
PROC: 0DJ08ZZ Inspection of Upper Intestinal Tract, Via Natural or Artificial Opening Endoscopic (ICD-10-PCS; CPT 43235; principal; 2021-01-26 11:55)
DX: K92.1 Melena (principal); K25.4 Chronic or unspecified gastric ulcer with hemorrhage; D64.9 Anemia, unspecified; E03.9 Hypothyroidism, unspecified; E11.42 Type 2 diabetes mellitus with diabetic polyneuropathy; E11.51 Type 2 diabetes mellitus with diabetic peripheral angiopathy without gangrene; E66.9 Obesity, unspecified; E78.5 Hyperlipidemia, unspecified; F32.9 Major depressive disorder, single episode, unspecified; F41.9 Anxiety disorder, unspecified; G25.81 Restless legs syndrome; I48.0 Paroxysmal atrial fibrillation; I11.0 Hypertensive heart disease with heart failure; I27.21 Secondary pulmonary arterial hypertension; I50.32 Chronic diastolic (congestive) heart failure; J44.9 Chronic obstructive pulmonary disease, unspecified; K21.9 Gastro-esophageal reflux disease without esophagitis; M81.0 Age-related osteoporosis without current pathological fracture; Z79.01 Long term (current) use of anticoagulants; Z79.4 Long term (current) use of insulin; Z79.51 Long term (current) use of inhaled steroids; Z79.52 Long term (current) use of systemic steroids; Z79.82 Long term (current) use of aspirin; Z82.3 Family history of stroke; Z82.49 Family history of ischemic heart disease and other diseases of the circulatory system; Z82.61 Family history of arthritis; Z82.62 Family history of osteoporosis; Z83.3 Family history of diabetes mellitus; Z83.49 Family history of other endocrine, nutritional and metabolic diseases; Z85.820 Personal history of malignant melanoma of skin; Z85.828 Personal history of other malignant neoplasm of skin; Z87.891 Personal history of nicotine dependence; Z88.1 Allergy status to other antibiotic agents; Z88.8 Allergy status to other drugs, medicaments and biological substances; Z90.710 Acquired absence of both cervix and uterus
CPT/HCPCS: 43255; 82962; J7120; J2405

== ENCOUNTER 2021-01-28 08:16 | Outpatient (CLI) | payer MEDICARE, MEDICAID, SELFPAY ==
[2021-01-26 09:56] VITALS: BMI 36.3
[2021-01-28] VITALS (8 sets, daily range): BP systolic 80–176; BP diastolic 39–65; PULSE 56–81; RESP 16–20; TEMP 36–36.3; O2SAT 93–98; BMI 37.8
[2021-01-28] MEDS: 0.9% NaCl Peripheral Flush Adult/Peds IV (08:45)
== END 2021-01-28 16:21 | disposition home or self-care (01) ==
LOC: MEDOUTP 08:16
PROVIDERS: PCP Nurse Practitioner; Visit Provider Family Medicine Geriatric Medicine
DX: D62 Acute posthemorrhagic anemia (principal); K92.2 Gastrointestinal hemorrhage, unspecified
CPT/HCPCS: 36430; 86850; 86900; 86901; 86920; J7040; P9016; A4216

== ENCOUNTER → 2021-02-02 10:01 | Outpatient (CLI) | payer MEDICARE, MEDICAID, SELFPAY ==
[2021-01-28 08:30] VITALS: BMI 37.8
--- NOTE | 2021-02-02 10:04 | CT_ITS ---
STUDY: CT ABDOMEN AND PELVIS WITH CONTRAST REASON FOR EXAM: Female, 75 years old. Gastrointestinal hemorrhage, unspecified, ACUTE ABD. Chronic anemia. RADIATION DOSAGE (If Supplied By Facility): CTDIvol = ( 23.01 ) mGy, DLP = ( 1040.18 ) mGycm TECHNIQUE: Transaxial images were obtained from the dome of the diaphragm to the symphysis pubis without oral contrast. IV 100mL Isovue-300 was administered. Sagittal and coronal images were reconstructed. Individualized dose optimization techniques were used for this CT. COMPARISON: Comparison is made with prior study dated 09/25/2019. FINDINGS: Stable mild increased markings at the lung bases suggests mild scarring. Minimal right pleural effusion. The patient is status post aortic valve replacement. Coronary artery calcification. Normal liver. Normal gallbladder and extrahepatic biliary system. Normal spleen. Normal pancreas. Normal bilateral adrenal glands. Stable mild degree of bilateral renal cortical atrophy. Normal visualized stomach. Normal small intestine. There are multiple colonic diverticula consistent with diverticulosis. Moderate amount of fecal material is seen in the colon. There is non-visualization of the appendix. There is diffuse atherosclerotic calcification of the abdominal aorta and its major visceral branches, without a demonstrated aneurysm. Normal inferior vena cava. Normal retroperitoneum. Normal urinary bladder. There is absence of the uterus consistent with a prior hysterectomy. Normal abdominal wall. There are mild degenerative changes of the visualized lumbar spine. Loss of white of the L2, L3 and L4 lumbar vertebrae. Grade 1 anterior listhesis of L5 on S1. Status post right total hip replacement. CT/Abdomen/Pelvis WITH Contrast IMPRESSION: Sigmoid diverticulosis. Moderate degree of material is seen in the colon. Electronically Signed: Nimesh Rogers MD at 15:25 EDT , Service support ,
[2021-02-02] MEDS: Alteplase 2 MG/2 ML Vial IV (13:22)
--- NOTE | 2021-02-02 13:47 | NURSING ---
SUSI King spoke with pt's RN on TCU. RN reports midline has not gotten blood return for multiple weeks and Dr. Connor aware. SUSI King informed RN from TCU that pt cannot have the power injection for the CT without having blood return from the midline. Dr. Connor physically on TCU and gives telephone order for cathflo to be given in radiology (see MAR). Pt updated on all of the above and is agreeable to plan.
== END ==
PROVIDERS: PCP Nurse Practitioner; Referring Provider Family Medicine Geriatric Medicine; Visit Provider Family Medicine Geriatric Medicine
DX: K92.2 Gastrointestinal hemorrhage, unspecified (principal); R10.0 Acute abdomen
CPT/HCPCS: 36593; 74177; J2997

== ENCOUNTER → 2021-02-04 07:32 | Outpatient (CLI) | payer MEDICARE, MEDICAID, SELFPAY ==
[2021-01-28 08:30] VITALS: BMI 37.8
--- NOTE | 2021-02-04 07:34 | CT_ITS ---
STUDY: CT CHEST WITHOUT CONTRAST REASON FOR EXAM: Female, 75 years old. NODULE. Bleeding ulcer. RADIATION DOSAGE (If Supplied By Facility): CTDIvol = ( 17.88 ) mGy, DLP = ( 571.73 ) mGycm TECHNIQUE: Transaxial imaging was performed without the administration of intravenous contrast material. Multiplanar coronal and sagittal images were reformatted. Individualized dose optimization techniques were used for this CT. COMPARISON: Comparison is made with prior examination dated 07/01/2020. FINDINGS: Stable benign-appearing bilateral axillary lymph nodes. There is hyperinflation of the lungs consistent with chronic obstructive lung disease (COPD). Stable mild degree of emphysematous changes more prominent in the upper lobes. Stable scarring at the lung bases slightly more prominent on the right side. There is no demonstrated pleural abnormality. There are calcifications of the coronary arteries. Prior aortic valve replacement. There is a precarinal lymph node measuring 2 cm in greatest dimension. This has increased slightly in size as compared to prior study. Normal hilar regions. Normal unenhanced pulmonary arteries. There is atherosclerotic calcification of the aortic arch with tortuosity and elongation of the aortic arch and descending thoracic aorta. There are multi-level degenerative changes of the thoracic spine. Healed right-sided rib fractures. There is no demonstrated abnormality of the visualized upper abdomen. CT/Chest without Contrast IMPRESSION: Stable examination. Electronically Signed: Nimesh Rogers MD at 9:13 EDT , Service support ,
== END ==
PROVIDERS: PCP Nurse Practitioner; Referring Provider Family Medicine Geriatric Medicine; Visit Provider Family Medicine Geriatric Medicine
DX: R91.1 Solitary pulmonary nodule (principal); R06.00 Dyspnea, unspecified
CPT/HCPCS: 71250